=== PATIENT | female | born 2000 | race Caucasian/White ===

== ENCOUNTER 2022-10-18 13:14 | Outpatient (OUT) | payer BC, SELFPAY ==
--- NOTE | 2022-10-18 13:16 | US_ITS ---
[address] [address] Patient Name: LAURA FOUNTAIN MRN: [id number] date: 2000 Sex: F Assigned Patient Location: US Current Patient Location: US Accession/Order Number: [id number] Exam Date: 10/18/2022 13:16 Report Date: 10/18/2022 17:40 At the request of: ZHANE NORWOOD Procedure: US OB transvaginal EXAMINATION: US OB transvaginal HISTORY: MISSED PERIOD COMPARISON: No relevant comparison available. FINDINGS: Twin intrauterine gestation The uterus is normal, anteverted, anteflexed The right ovary is normal in appearance The left ovary is not visualized Cervix: Closed, 3.6 cm Monochorionic, diamniotic Gestational sac: 4.7 cm, 10 weeks 2 days Fetus 1: CRL: 3.0 cm, 9 weeks 6 days Heart rate: 176 BPM Ultrasound age: 9 weeks 6 days Ultrasound KARTIK: 05/17/2023 Fetus 2: CRL: 3.02 cm, 9 weeks 6 days Heart rate: 171 bpm Ultrasound age: 9 weeks 6 days Ultrasound KARTIK: 05/17/2023 IMPRESSION: Viable twin intrauterine gestation measuring 9 weeks 6 days Electronically authenticated by: JEAN BELLO Date: 10/18/2022 17:40
== END 2022-10-18 13:15 ==
LOC: US 13:14
PROVIDERS: Visit Provider Obstetrics & Gynecology
DX: O30.001 Twin pregnancy, unspecified number of placenta and unspecified number of amniotic sacs, first trimester (principal); Z3A.09 9 weeks gestation of pregnancy
CPT/HCPCS: 76817

== ENCOUNTER 2022-12-04 08:42 | Emergency (ER) | payer BC, SELFPAY ==
[2022-12-04 08:46] VITALS: BP 140/64; PULSE 90; RESP 18; TEMP 37.3; O2SAT 100; BMI 26.5
--- NOTE | 2022-12-04 10:18 | ED.GENADUL1 ---
HPI - General Adult General Chief complaint: Vaginal Bleeding Stated complaint: ISSUES 17 WEEKS Time Seen by Provider: 12/04/22 09:05 Source: patient Mode of arrival: walk-in History of Present Illness HPI narrative: Patient is a 22-year-old female who is presenting to the Emergency Room with chief complaint of vaginal bleeding that started 2 days ago. Patient went to [facility] last evening. Patient had laboratory done, ultrasound. Patient is a , patient states she is about 17 weeks . Patient's had no trauma, no falls, no traumatic intercourse recently. Patient says the ultrasound last evening question bleeding versus questionable amniotic fluid. Patient had vaginal bleeding today, soaked a pad. Patient did not wait to call the office this morning as instructed, she can't to the Emergency Room. Patient also was diagnosed the urinary tract infection last Saturday, she has not started her antibiotic, patient has excuses that she does not have a car, her mother did not get her medication, and she has not had any antibiotics since Saturday. Patient not lightheaded or dizzy. No chest pain or shortness of breath. She has mild abdominal cramping that she took, for this morning. She has no other acute complaints at this time. When we're performing HPI and physical exam, Joan MADSEN was doing tones, and then patient told us: oh I have twins . All systems are negative except as noted/marked. All systems reviewed and otherwise negative. . Nurses note and vital signs reviewed and patient is not hypoxic. General: The patient appears well and in no apparent distress. Patient is resting comfortably on cart. Patient is not toxic, lethargic, or listless Skin: Warm, dry, no pallor noted. There is no rash noted. No petechiae, purpura. Head: Normocephalic, atraumatic Eye: Normal conjunctiva, no drainage, EOMI. PERRL Ears, Nose, Mouth, and Throat: oral mucosa is moist. Nares patent. Cardiovascular: Regular Rate and Rhythm, no murmur, gallop, rub Respiratory: Patient is in no distress, no accessory muscle use, lungs are clear to auscultation, no wheezing, rales or rhonchi Back: non-tender, no CVA tenderness bilaterally to percussion. No CT LS midline pain GI: soft, Mild suprapubic tenderness to palpation, no peritoneal signs, no flank pain bilateral, otherwise no tenderness to palpation, no masses appreciated. No rebound, guarding, or rigidity noted. No flank pain bilateral, No distention Musculoskeletal: Patient has full range of motion of all of the extremities, no motor, sensory, or focal neurological deficits Neurological: A&O x3, normal speech Psychiatric: Cooperative Related Data Home Medications Medication Instructions Recorded Confirmed No Known Home Medications 12/04/22 12/04/22 Allergies Allergy/AdvReac Type Severity Reaction Status Date / Time No Known Drug Allergies Allergy Verified 12/04/22 08:46 Exam Constitutional Vital Signs, click to edit/add: Last Vital Signs Temp 99.1 F 12/04/22 08:46 Pulse 90 12/04/22 08:46 Resp 18 12/04/22 08:46 BP 140/64 12/04/22 08:46 Pulse Ox 100 12/04/22 08:46 O2 Del Method Room Air 12/04/22 08:46 Course Vital Signs Vital signs: Vital Signs Temperature 99.1 F 12/04/22 08:46 Pulse Rate 90 12/04/22 08:46 Respiratory Rate 18 12/04/22 08:46 Blood Pressure 140/64 12/04/22 08:46 Pulse Oximetry 100 12/04/22 08:46 Oxygen Delivery Method Room Air 12/04/22 08:46 Temperature 99.1 F 12/04/22 08:46 Pulse Rate 90 12/04/22 08:46 Respiratory Rate 18 12/04/22 08:46 Blood Pressure 140/64 12/04/22 08:46 Pulse Oximetry 100 12/04/22 08:46 Oxygen Delivery Method Room Air 12/04/22 08:46 Medical Decision Making MDM Narrative Medical decision making narrative: Patient had thorough testing done last night at [facility]. Patient had lab work and ultrasound done. The [facility] physician spoke to Dr. Bella last night. The instructions were for patient to call the office at 8 AM when they open up, and patient will be seen today to rule out or in amniotic fluid leakage. Patient did not wait until 8 AM, patient can't to the Emergency Room instead. Patient not call the office this morning. Patient also has not filled her antibiotic from last Saturday for urinary tract infection. 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 Patient has excuses that her mom did not do that for her. 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 Patient was given one dose of Keflex in the Emergency Room.I did speak to Dr. Bella. They're willing to see the patient right now in the office and squeeze her in their schedule which is very kind of them. Patient will be discharged. Patient will walk and go directly to the office so that she can be seen by Dr. Bella and staff. No other recommendations from Dr. Bella at this time. No indication for an additional lab testing or ultrasound. Discharge Plan Discharge Chief Complaint: Vaginal Bleeding Clinical Impression: Miscarriage, threatened, early Patient Disposition: Home, Self-Care Condition: Good Prescriptions / Home Meds: No Action No Known Home Medications Instructions: Threatened Miscarriage (ED) Additional Instructions: Go directly to Dr. Bella office now. He will be seen and evaluated, he also need to fill your prescription for your urinary tract infection as well that was diagnosed last week. Stand Alone Forms: Portal Instructions Referrals: Physician,Non-Staff, MD [Primary Care Provider] - 1 week Procedures ED Procedure Instructions Procedures Procedures: Bedside ultrasound performed by Dr. Malone, this is an unofficial US Performed by myself. I do note 2 fetuses, to active heartbeats, 2 fetuses with good movement.
[2022-12-04] MEDS: CEPHALEXIN 250 MG CAPSULE 500 MG PO (10:25)
== END 2022-12-04 10:27 | disposition home or self-care (01) ==
PROVIDERS: Emergency Provider Emergency Medicine
DX: O20.0 Threatened abortion (principal); Z3A.17 17 weeks gestation of pregnancy; Z87.440 Personal history of urinary (tract) infections
CPT/HCPCS: 99283

== ENCOUNTER 2022-12-04 11:54 | Outpatient (OUT) | payer BC, SELFPAY ==
--- NOTE | 2022-12-04 | US_ITS ---
[address] [address] Patient Name: LAURA FOUNTAIN MRN: [id number] date: 2000 Sex: F Assigned Patient Location: US Current Patient Location: US Accession/Order Number: [id number] Exam Date: 12/04/2022 12:00 Report Date: 12/04/2022 18:00 At the request of: ZHANE NORWOOD Procedure: US OB placenta EXAM: US OB placenta HISTORY: VAGINAL BLEEDING COMPARISON: 10/18/2022. TECHNIQUE: Transabdominal imaging FINDINGS: Fetus 1: presentation: Cephalic Largest fluid pocket: 2.6 x 3.0 cm Placenta: Anterior, Grade 0 Heart rate: 1 41 bpm Fetus 2: presentation: Cephalic Largest fluid pocket: 4.0 x 1.9 cm Placental location: Anterior, grade 0 Heart rate: 1 47 bpm Cervix: Closed, 3.3 cm. Placenta: 2 cm from the cervical os Linear septation identified likely representing the amniotic membrane Single anterior placenta US/US OB placenta IMPRESSION: No evidence of placental abruption Electronically authenticated by: JEAN BELLO Date: 12/04/2022 18:00
--- NOTE | 2022-12-04 | US_ITS ---
[address] [address] Patient Name: LAURA FOUNTAIN MRN: [id number] date: 2000 Sex: F Assigned Patient Location: US Current Patient Location: US Accession/Order Number: [id number] Exam Date: 12/04/2022 12:00 Report Date: 12/04/2022 18:00 At the request of: ZHANE NORWOOD Procedure: US OB transvaginal EXAM: US OB placenta HISTORY: VAGINAL BLEEDING COMPARISON: 10/18/2022. TECHNIQUE: Transabdominal imaging FINDINGS: Fetus 1: presentation: Cephalic Largest fluid pocket: 2.6 x 3.0 cm Placenta: Anterior, Grade 0 Heart rate: 1 41 bpm Fetus 2: presentation: Cephalic Largest fluid pocket: 4.0 x 1.9 cm Placental location: Anterior, grade 0 Heart rate: 1 47 bpm Cervix: Closed, 3.3 cm. Placenta: 2 cm from the cervical os Linear septation identified likely representing the amniotic membrane Single anterior placenta US/US OB transvaginal IMPRESSION: No evidence of placental abruption Electronically authenticated by: JEAN BELLO Date: 12/04/2022 18:00
== END 2022-12-04 11:55 | disposition home or self-care (01) ==
LOC: US 11:55
PROVIDERS: Visit Provider Obstetrics & Gynecology
DX: O20.0 Threatened abortion (principal); Z3A.17 17 weeks gestation of pregnancy; Z87.440 Personal history of urinary (tract) infections; O46.92 Antepartum hemorrhage, unspecified, second trimester
CPT/HCPCS: 76815; 76817; 99283

== ENCOUNTER 2022-12-18 13:57 | Outpatient (OUT) | payer BC, SELFPAY ==
[2022-12-18 14:47] LABS: Thyroid Stimulating Hormone 2.085 uIU/mL (0.358-3.740)
[2022-12-21 17:07] LABS: AFP Value 248.2 ng/mL (.); Gestat. Age Based On As provided (.); Maternal Age At EDD 20.7 yr (.); OSBR Risk 1 IN See interpretation. (.); Results Report (.)
== END 2022-12-18 13:58 | disposition home or self-care (01) ==
LOC: LAB 13:58
PROVIDERS: Visit Provider Obstetrics & Gynecology
DX: O26.892 Other specified pregnancy related conditions, second trimester (principal); Z3A.00 Weeks of gestation of pregnancy not specified; R79.89 Other specified abnormal findings of blood chemistry
CPT/HCPCS: 36415; 82105; 84443

== ENCOUNTER 2023-11-22 13:07 | Observation (INO) | payer OTHER, SELFPAY ==
[2023-11-22 13:31] VITALS: BP 95/55; PULSE 78
[2023-11-22 13:39] VITALS: TEMP 36.4
--- NOTE | 2023-11-22 13:45 | US_ITS ---
[address] [address] Patient Name: LAURA FOUNTAIN MRN: [id number] date: 2000 Sex: F Assigned Patient Location: [facility] Current Patient Location: [facility] Accession/Order Number: [id number] Exam Date: 11/22/2023 14:20 Report Date: 11/22/2023 15:40 At the request of: ZHANE NORWOOD Procedure: US renal BI EXAMINATION: US renal BI HISTORY: rt sided back pain, cramping COMPARISON: No relevant comparison available. TECHNIQUE: Ultrasound examination was performed of the kidneys and urinary bladder. FINDINGS: RIGHT KIDNEY: Contain several small nonobstructing stones. Normal renal cortical parenchymal echogenicity. Color Doppler demonstrates blood flow within the kidney. Kidney: 11.5 x 4.6 x 5.5 cm LEFT KIDNEY: Contain several small nonobstructing stones. Normal renal cortical parenchymal echogenicity. Color Doppler demonstrates blood flow within the kidney. Kidney: 12.4 x 4.3 x 4.9 cm BLADDER: No visible wall thickening, mass, or calculi. US/US renal BI IMPRESSION: 1. Bilateral nonobstructing nephrolithiasis. No appreciable acute findings. Electronically authenticated by: SAMANTA LEACH Date: 11/22/2023 15:40
--- NOTE | 2023-11-22 13:45 | US_ITS ---
The [address] [address] Patient Name: LAURA FONUTAIN MRN: [id number] date: 2000 Sex: F Assigned Patient Location: [facility] Current Patient Location: [facility] Accession/Order Number: [id number] Exam Date: 11/22/2023 14:20 Report Date: 11/22/2023 15:44 At the request of: ZHANE NORWOOD Procedure: US OB placenta EXAMINATION: US OB placenta HISTORY: rt sided back pain, cramping COMPARISON: No relevant comparison available. FINDINGS: PRESENTATION: Cephalic Amniotic fluid: 17.6 cm; normal range. PLACENTA: Anterior, grade 0. No abruption or subchorionic hematoma. HEART RATE: 132 bpm OTHER: None. GA: 36 weeks 1 day KARTIK: 12/19/2023 US/US OB placenta IMPRESSION: 1. Anterior placenta without appreciable acute abnormality. No prior studies for comparison. Lower margin of placenta and its relation to the internal os could not be seen. Electronically authenticated by: SAMANTA LEACH Date: 11/22/2023 15:44
[2023-11-22 14:01] LABS: Bilirubin Urine NEGATIVE (NEGATIVE); Blood Urine TRACE-I (NEGATIVE); Clarity Urine CLOUDY (CLEAR); Glucose Urine UA NEGATIVE (NEGATIVE); Ketones Urine NEGATIVE (NEGATIVE); Leukocyte Esterase Urine MODERATE (NEGATIVE); Nitrite Urine NEGATIVE (NEGATIVE); Protein Urine 30 mg/dL (NEG/TRACE); Specific Gravity Urine 1.025 (1.005-1.025)
[2023-11-22 14:03] LABS: Color Urine DK YELLOW (YELLOW); Urine Microscopic Indicated YES
[2023-11-22] MEDS: FLUCONAZOLE 150 MG TABLET PO (14:04)
[2023-11-22 14:06] LABS: Amnisure NEGATIVE (NEGATIVE); Internal Control Within Normal Limits
[2023-11-22 14:23] LABS: Bacteria Urine LARGE #/HPF (NONE SEEN); Cast Seen? NONE SEEN #/LPF (NONE SEEN); Crystals Seen? None Seen #/HPF (None Seen); Mucus Urine LARGE (NONE SEEN); Squamous Epithelial Cell Urine MANY #/LPF (NONE/RARE); Urine Culture Indicated YES; WBC Urine >100 #/HPF (NONE SEEN)
== END 2023-11-22 16:10 | disposition home or self-care (01) ==
PROVIDERS: Admitting Provider Obstetrics & Gynecology; Visit Provider Obstetrics & Gynecology
DX: O47.03 False labor before 37 completed weeks of gestation, third trimester (principal); Z3A.36 36 weeks gestation of pregnancy; Z87.440 Personal history of urinary (tract) infections
CPT/HCPCS: 59025; 76775; 76815; 81001; 84112; 87086; G0378; G0379

== ENCOUNTER 2023-12-05 11:59 | Observation (INO) | payer OTHER, SELFPAY ==
[2023-12-05 11:59] VITALS: BP 105/56; PULSE 81; TEMP 37.2
[2023-12-05] MEDS: ACETAMINOPHEN 500 MG TABLET 1000 MG PO (13:33)
[2023-12-05 13:46] LABS: Bilirubin Urine NEGATIVE (NEGATIVE); Blood Urine NEGATIVE (NEGATIVE); Clarity Urine SL CLOUDY (CLEAR); Color Urine LT. YELLOW (YELLOW); Glucose Urine UA NEGATIVE (NEGATIVE); Ketones Urine TRACE mg/dL (NEGATIVE); Leukocyte Esterase Urine LARGE (NEGATIVE); Nitrite Urine NEGATIVE (NEGATIVE); Protein Urine NEGATIVE (NEG/TRACE); Specific Gravity Urine 1.025 (1.005-1.025); Urobilinogen Urine 0.2 EU/dL (0.2-1.0); pH Urine 6.5 (5.0-9.0)
[2023-12-05 13:47] LABS: Urine Microscopic Indicated YES
[2023-12-05 13:57] LABS: Bacteria Urine LARGE #/HPF (NONE SEEN); Crystals Seen? None Seen #/HPF (None Seen); Mucus Urine TRACE (NONE SEEN); Squamous Epithelial Cell Urine MANY #/LPF (NONE/RARE); Transitional Epi Cells Urine FEW #/LPF (NONE SEEN); WBC Urine 20-50 #/HPF (NONE SEEN)
[2023-12-05 13:58] LABS: Cast Seen? NONE SEEN #/LPF (NONE SEEN)
[2023-12-05 13:59] LABS: Urine Culture Indicated YES
--- NOTE | 2023-12-05 13:59 | US_ITS ---
[address] [address] Patient Name: LAURA FOUNTAIN MRN: [id number] date: 2000 Sex: F Assigned Patient Location: [facility] Current Patient Location: [facility] Accession/Order Number: [id number] Exam Date: 12/05/2023 14:00 Report Date: 12/05/2023 14:56 At the request of: KATELIN COLE Procedure: US renal BI EXAMINATION: US renal BI HISTORY: adali flank pain COMPARISON: Ultrasound renal bilateral 11/22/2023 TECHNIQUE: Ultrasound examination was performed of the kidneys and urinary bladder. FINDINGS: RIGHT KIDNEY: Contain several nonobstructing stones, largest is 5 mm. No hydronephrosis or appreciable mass. Normal parenchymal echogenicity. Color Doppler demonstrates blood flow within the kidney. Kidney: 13.0 x 5.2 x 4.8 cm LEFT KIDNEY: Contain several nonobstructing stones, largest is 7 mm. No hydronephrosis or appreciable mass. Normal parenchymal echogenicity. Color Doppler demonstrates blood flow within the kidney. Kidney: 11.6 x 4.6 x 5.0 cm BLADDER: No visible wall thickening, mass, or calculi. URETERAL JETS: Visualized bilaterally. US/US renal BI IMPRESSION: 1. Bilateral nonobstructing nephrolithiasis. 2. No acute findings to account for patient's symptoms. Electronically authenticated by: SAMANTA LEACH Date: 12/05/2023 14:56
== END 2023-12-05 15:30 | disposition home or self-care (01) ==
LOC: FBCO 12:00 → FBC 12:00
PROVIDERS: Admitting Provider Obstetrics & Gynecology; Visit Provider Obstetrics & Gynecology
DX: O26.899 Other specified pregnancy related conditions, unspecified trimester (principal); R10.9 Unspecified abdominal pain; Z3A.00 Weeks of gestation of pregnancy not specified; Z87.442 Personal history of urinary calculi
CPT/HCPCS: 59025; 76775; 81001; 87086; G0378; G0379

== ENCOUNTER 2023-12-12 15:14 | Inpatient (IN) | payer MEDICAID, SELFPAY ==
[2023-12-12] VITALS (42 sets, daily range): BP systolic 80–120; BP diastolic 42–74; PULSE 60–109; TEMP 36.2; O2SAT 94–100
--- OUTSIDE RECORDS SUMMARY | 2023-12-12 15:28 | XMS_ITS | CCD ---
[facility] Organization [facility] Care Team Providers Care Fire Equipment Operator Name Role Phone Amaya Luu Unavailable PURNIMAC, DR COBOS Primary Care Unavailable CECIL .RENETTA Attending Unavailable CECIL .RENETTA Admitting Unavailable REQUEST, DR MORA LISTED Consulting Unavaila ble MISC, DR COBOS Primary Care Unavailable PAY ., DR BUNDY Attending Unavailable PAY ., DR BUNDY Admitting Unavailable RENETTA CLINE Consulting Unavailable MISC, DR COBOS Primary Care Unavailable ENMA ., DR PHELAN Attending Unavailable ENMA ., DR PHELAN Consulting Unavailable ENMA ., DR PHELAN Admitting Unavailable MARILIN RODRIGEZ Attending Unavailable FELICIANO CARLTON Attending Unavailab HAYLIE Lewis Attending Unavailable HUA VELAZQUEZ Referring Unavailable NO PCP, NO PCP Primary Care Unavailable TERRANCE CONN Referring Unavailable NO PCP, NO PCP Primary Care Unavailable TERRANCE CONN Referring Unavailable NO PCP, NO PCP Primary Care Unavailable TERRANCE CONN Referring Unavailable NO PCP, NO PCP Primary Care Unavailable NO PCP, NO PCP Primary Care Unavailable AMAYA CRUZ Referring Unavailable NO PCP, NO PCP Primary Care Unavailable NO PCP, NO PCP Primary Care Unavailable AMAYA CRUZ Referring Unavailable NO PCP, NO PCP Primary Care Unavailable NO PCP, NO PCP Primary Care Unavailable MARLY STUBBS Attending Unavailable NO PCP, NO PCP Primary Care Unavailable YARELI VILLAREAL Attending Unav ailable NO PCP, NO PCP Primary Care Unavailable RANDAL AYALA Attending Unavailable RANDAL AYALA Attending Unavailable RANDAL AYALA Referring Unavailable NO PCP, NO PCP Primary Care Unavailable RANDAL AYALA Attending Unavailable RANDAL AYALA Referring Unavailable NO PCP, NO PCP Primary Care Unavailable SHOLEY, GUERRERO M Admitting Unavailable GUERRERO JOHNSON M Attending Unavailable NO PCP, NO PCP Primary Care Unavailable DEVYN MCBRIDE Admitting Unavailable DEVYN MCBRIDE Attending Unavailable NO PCP, NO PCP Primary Care Unavailable DEVYN MCBRIDE Attending Unavailable DEVYN MCBRIDE Referring Unavailable NO PCP, NO PCP Primary Care Unavailable LILLIANTANNER GUERRERO M Admitting Unavailable LILLIANTANNER GUERRERO M Attending Unavailable NO PCP, NO PCP Primary Care Unavailable TERRANCE CONN A Attending Unavailable NO PCP, NO PCP Primary Care Unavailable FABIENTERRANCE A Attending Unavailable NO PCP, NO PCP Primary Care Unavailable FABIENTERRANCE A Attending Unavailable NO PCP, NO PCP Primary Care Unavailable ANGELA NEWMAN M Attending Unavailable NO PCP, NO PCP Primary Care Unavailable NO PCP, NO PCP Primary Care Unavailable AMAYA CRUZ Attending Unavailable NO PCP, NO PCP Primary Care Unavailable ZHANE NORWOOD Attending Unavailable Problems Active Problems Problem Classification Problem Date Documented Da te Episodic/Chronic E Codes: Fall (1 source) Fall Onset: 4 Genitourinary symptoms and ill-defined conditions (4 sources) Dysuria; Translations: [Urinary frequency] Onset: 3 Episodic Headache; including migraine (1 source) Chronic migraine without aura, intractable, with status migrainosus; Translations: [Chronic migraine without aura, intractable, with status migrainosus] Onset: 4 Chronic Headache; including migraine (1 source) Headache; including migraine; Translations: [Headache, unspecified] Onset: 4 Hemorrhage during ; abruptio placenta; placenta previa (1 source) Hemorrhage in early , unspecified; Translations: [Hemorrhage in early , unspecified] Onset: 3 Episodic Mood disorders (1 source) Major depressive disorder, recurrent, moderate; Translations: [Major depressive disorder, recurrent, moderate] Onset: 4 Chronic Nausea and vomiting (2 sources) Nausea with vomiting, unspecified; Translations: [Nausea] Onset: 3 Episodic Other complications of (1 source) Vomiting of , unspecified; Translations: [Vomiting of , unspecified] Onset: 3 Episodic Other complications of (2 sources) Supervision of other high risk pregnancies, second trimester; Translations: [Supervision of other high risk pregnancies, second trimester] Onset: 4 Episodic Other complications of (2 sources) Supervision of other high risk pregnancies, unspecified trimester; Translations: [Supervision of other high risk pregnancies, unspecified trimester] Onset: 4 Episodic Other complications of (1 source) Supervision of with other poor reproductive or obstetric history, unspecified trimester; Translations: [Supervision of with other poor reproductive or obstetric history, unspecified trimester] Onset: 4 Episodic Other complications of (1 source) Decreased movements, unspecified trimester, not applicable or unspecified; Translations: [Decreased movements, unspecified trimester, not applicable or unspecified] Onset: 4 Episodic Other complications of (1 source) Supervision of with insufficient care, unspecified trimester; Translations: [Supervision of with insufficient care, unspecified trimester] Onset: 4 Episodic Other gastrointestinal disorders (1 source) Constipation, unspecified; Translations: [Constipation, unspecified] Onset: 4 Episodic Other and delivery including normal (12 sources) Encounter for test, result positive; Translations: [Twin , monochorionic/diamniot ic, second trimester] Onset: 2 Episodic Other screening for suspected conditions (not mental disorders or infectious disease) (2 sources) Encounter for nonprocreative screening for genetic disease carrier status; Translations: [Encounter for screening for other genetic defects] Onset: 4 Episodic Residual codes; unclassified (1 source) 21 weeks gestation of ; Translations: [21 weeks gestation of ] Onset: 4 Episodic Residual codes; unclassified (1 source) Personal history of other complications of , childbirth and the puerperium; Translations: [Personal history of other complications of , childbirth and the puerperium] Onset: 4 Episodic Residual codes; unclassified (1 source) 27 weeks gestation of ; Translations: [27 weeks gestation of ] Onset: 4 Episodic Residual codes; unclassified (1 source) 38 weeks gestation of ; Translations: [38 weeks gestation of ] Onset: 4 Episodic Residual codes; unclassified (1 source) Cystic fibrosis carrier; Translations: [Cystic fibrosis carrier] Onset: 4 Episodic Unclassified (2 sources) Initial Visit Onset: 4 Unclassified (1 source) New Patient Onset: 4 Unclassified (1 source) Procedure Onset: 4 Unclassified (1 source) urinary frequency, pelvic cramping, Onset: 4 Unclassified (1 source) Abdominal Pain Onset: 4 Unclassified (1 source) Decreased Movement Onset: 4 Unclassified (1 source) Abdominal Pain, Vaginal Bleeding Onset: 4 Unclassified (1 source) Routine Visit Onset: 4 Unclassified (1 source) Food insecurity; Translations: [Food insecurity] Onset: 4 Unclassified (1 source) Other underimmunization status; Translations: [Other underimmunization status] Onset: 4 Past or Other Problems Problem Classification Problem Date Documented Da te Episodic/Chronic Abdominal pain (2 sources) Pain in pelvis; Translations: [Abdominal pain] Onset: 07-30-2023 Episodic Immunizations and screening for infectious disease (3 sources) Encounter for screening for infections with a predominantly sexual mode of transmission; Translations: [Encounter for screening for infections with a predominantly sexual mode of transmission] Onset: 08-28-2023 Episodic Other complications of (2 sources) Supervision of with insufficient care, second trimester; Translations: [Supervision of with insufficient care, second trimester] Onset: 08-29-2023 Episodic Other complications of (1 source) Maternal care for excessive growth, unspecified trimester, not applicable or unspecified; Translations: [Maternal care for excessive growth, unspecified trimester, not applicable or unspecified] Onset: 08-29-2023 Episodic Other female genital disorders (1 source) Personal history of pre-term labor; Translations: [Personal history of pre-term labor] Onset: 08-29-2023 Episodic Other gastrointestinal disorders (2 sources) Slow transit constipation; Translations: [Slow transit constipation] Onset: 08-03-2021 Episodic Other nutritional; endocrine; and metabolic disorders (2 sources) Personal history of other endocrine, nutritional and metabolic disease; Translations: [Personal history of other endocrine, nutritional and metabolic disease] Onset: 08-29-2023 Episodic Residual codes; unclassified (1 source) 19 weeks gestation of ; Translations: [19 weeks gestation of ] Onset: 07-30-2023 Episodic Substance-related disorders (2 sources) Drug use complicating , unspecified trimester; Translations: [Cannabis use, unspecified, uncomplicated] Onset: 08-29-2023 Episodic Unclassified (1 source) Acute cough R05.1 Onset: 11-14-2021 Resolved: 11-14-2021 Urinary tract infections (4 sources) Urinary tract infection, site not specified; Translations: [Acute cystitis without hematuria] Onset: 08-21-2022 Episodic Results Test Name Value Interpretation Reference Range Facility CHLAMYDIA/GC BY PCRon 2023 CHLAMYDIA/GC BY PCR SPECIMEN SOURCE CERVICAL Corrected on 11/17 AT 0958: Previously reported as CLEAN CATCH MIDSTREAM URINE CHLAMYDIA DNA(PCR) Negative (qualifier value) Chlamydia trachomatis not detected by nucleic acid amplification. This does not exclude the possibility of infection because results are dependent on adequate specimen collection. GONORRHOEAE DNA(PCR) Negative (qualifier value) Neisseria gonorrhoeae not detected by nucleic acid amplification. This does not exclude the possibility of infection because results are dependent on adequate specimen collection. Normal [facility] Comment on above: Performed By: #### 2 106-3 #### [facility] ([id number]) [address] [place] [address] 73268 DRUG SCREEN, URINEon 024 AMPHETAMINE/METHAMP Negative Normal NEG [facility] Comment on above: Result Comment: AMPH /METH screening cut off = 1000 ng/mL Performed By: #### 2 106-3 #### [facility] ([id number]) [address] [place] [address] 36549 BARBITURATES Negative Normal NEG [facility] Comment on above: Result Comment: Jami iturates screening cut off value = 200 ng/mL Performed By: #### 2 106-3 #### [facility] ([id number]) [address] [place] [address] 70120 BENZODIAZEPINES Negative Normal NEG [facility] Comment on above: Result Comment: Hunter odiazepines screening cut off value = 200 ng/mL Performed By: #### 2 106-3 #### [facility] ([id number]) [address] [place] [address] 84352 CANNABINOIDS Negative Normal NEG [facility] Comment on above: Result Comment: Latha abinoids/THC screening cut off value = 50 ng/mL Performed By: #### 2 106-3 #### [facility] ([id number]) [address] [place] [address] 45543 COCAINE METABOLITE Negative Normal NEG [facility] Comment on above: Result Comment: Coca ine screening cut off value = 300 ng/mL Performed By: #### 2 106-3 #### [facility] ([id number]) [address] [place] [address] 58238 ECSTASY Negative Normal [facility] Comment on above: Result Comment: Ecst asy screening cut off value = 500 ng/mL This report is intended for use in clinical monitoring or management of patients. Performed By: #### 2 106-3 #### [facility] ([id number]) [address] [place] [address] 05885 METHADONE Negative Normal [facility] Comment on above: Result Comment: Meth adone screening cut off value = 300 ng/mL. Performed By: #### 2 106-3 #### [facility] ([id number]) [address] [place] [address] 52093 OPIATES Negative Normal NEG [facility] Comment on above: Result Comment: Opia olivia screening cut off value = 300 ng/mL NOTE: This test is used for the detection of codeine, hydrocodone (>1000 ng/mL), morphine and hydromorphone (>900 ng/mL) in urine. Performed By: #### 2 106-3 #### [facility] ([id number]) [address] [place] [address] [place] [address] OXYCODONE Negative Normal NEG [facility] Comment on above: Result Comment: Oxyc odone screening cut off value = 300 ng/mL NOTE: This test is used for the detection of oxycodone and oxymorphone in urine. Performed By: #### 2 106-3 #### [facility] ([id number]) [address] [place] [address] 40974 PHENCYCLIDINE Negative Normal NEG [facility] Comment on above: Result Comment: Phen cyclidine screening cut off value = 25 ng/mL Performed By: #### 2 106-3 #### [facility] ([id number]) [address] [place] [address] 76573 Fibronectin. Ql (Vag fl d)on 11-17-2023 FIBRONECTIN Negative Normal NEG [facility] Comment on above: Performed By: #### 2 106-3 #### [facility] ([id number]) [address] [place] [address] 87469 STREP B SCREEN CULTUREon S. agalactiae Org specific cx Ql (Vag+Rectum) CULTURE RESULTS NEGATIVE FOR GROUP B STREPTOCOCCUS BY NUCLEIC ACID AMPLIFICATION Normal [facility] Comment on above: Performed By: #### 2 106-3 #### [facility] ([id number]) [address] [place] [address] 34296 URINALYSISon 11-17-2023 Bilirubin Ql (U) SMALL Abnormal NEG [facility] Comment on above: Result Comment: Not confirmed, interpret positive results with caution. Performed By: #### 2 106-3 #### [facility] ([id number]) [address] [place] [address] 51717 BLOOD/HGB Negative Normal NEG [facility] Comment on above: Performed By: #### 2 106-3 #### [facility] ([id number]) [address] [place] [address] 01980 Color (U) YELLOW Normal YELLOW [facility] Comment on above: Performed By: #### 2 106-3 #### [facility] ([id number]) [address] [place] [address] 60171 Glucose Ql (U) Negative Normal NEG [facility] Comment on above: Performed By: #### 2 106-3 #### [facility] ([id number]) [address] [place] [address] [place] [address] Ketones Ql (U) >80 Abnormal NEG [facility] Comment on above: Performed By: #### 2 106-3 #### [facility] ([id number]) [address] [place] [address] 53464 Leukocyte esterase Test strip Ql (U) MODERATE Abnormal NEG [facility] Comment on above: Performed By: #### 2 106-3 #### [facility] ([id number]) [address] [place] [address] [place] [address] Nitrite Ql (U) Negative Normal NEG [facility] Comment on above: Performed By: #### 2 106-3 #### [facility] ([id number]) [address] [place] [address] 82201 pH (U) 6.0 [pH] Normal 5.0-8.5 [facility] Comment on above: Performed By: #### 2 106-3 #### [facility] ([id number]) [address] [place] [address] 08802 Protein Ql (U) 30 mg/dL Abnormal NEG [facility] Comment on above: Performed By: #### 2 106-3 #### [facility] ([id number]) [address] [place] [address] [place] [address] R.B.CELLS 0 /hpf Normal 0-5 [facility] Comment on above: Performed By: #### 2 106-3 #### [facility] ([id number]) [address] [place] [address] [place] [address] Specific gravity (U) [Rel density] >1.030 Normal 1.003-1.035 [facility] Comment on above: Performed By: #### 2 106-3 #### [facility] ([id number]) [address] [place] [address] 80071 SQUAMOUS EPITHELIUM 13 /hpf High 0-5 [facility] Comment on above: Performed By: #### 2 106-3 #### [facility] ([id number]) [address] [place] [address] 92033 TURBIDITY CLEAR Normal CLEAR [facility] Comment on above: Performed By: #### 2 106-3 #### [facility] ([id number]) [address] [place] [address] 23172 Urobilinogen Qn (U) 1.0 {Krishna'U}/dL Normal <1.1 [facility] Comment on above: Performed By: #### 2 106-3 #### [facility] ([id number]) [address] [place] [address] 57384 W.B.CELLS 9 /hpf High 0-5 [facility] Comment on above: Performed By: #### 2 106-3 #### [facility] ([id number]) [address] [place] [address] 07117 URINE CULTUREon 11-17-2023 Bacteria identified Cx Nom (U) CULTURE RESULTS >100,000 ORGANISMS/ML NORMAL UROGENITAL ALEX Normal [facility] Comment on above: Performed By: #### 2 106-3 #### [facility] ([id number]) [address] [place] [address] 02370 VAGINITIS PANEL PCRon 2023 VAGINITIS PANEL PCR BACT. VAGINOSIS DNA Unable to analyze due to inhibitors present in sample Qualitative results are reported based on detection and quantitation of targeted organism markers which include: Lactobacillus spp. (L. crispatus and L. jensenii), Gardnerella vaginalis, Atopobium vaginae, Bacterial Vaginosis Associated Bacteria-2 (BVAB-2) and Megasphaera-1 SHANEKA SPECIES DNA Unable to analyze due to inhibitors present in sample SHANEKA KRUSEI DNA Unable to analyze due to inhibitors present in sample SHANEKA GLABRATA DNA Unable to analyze due to inhibitors present in sample TRICHOMONAS VAG DNA Unable to analyze due to inhibitors present in sample NOTE BD MAX Vaginal Panel has not been evaluated for patients under 18 years old. Results for these patients should be reviewed and assessed in accordance with clinical presentation to determine patient diagnosis. Normal [facility] Comment on above: Performed By: #### 2 106-3 #### [facility] ([id number]) [address] [place] [address], [place] [address] US BIOPHYSICAL PROFILE FET W O NSTon 10-22-2023 US BIOPHYSICAL PROFILE FET WO NST US BIOPHYSICAL PROFILE FET WO NST US BIOPHYSICAL PROFILE FET WO NST Clinical history:decel decelerations, fall, abdominal pain Comparison: None. Findings: Biophysical profile was performed. There is a single live intrauterine in cephalic position. Placenta is anterior without evidence of previa. heart rate is 131 bpm. Amniotic fluid is is 19.5 cm. Deepest vertical pocket is 6.3 cm. 2 points was given for movement, tone, breathing and amniotic fluid. Impression: Biophysical profile with a score of 8 out of 8. Finalized by Danny Mcdonough MD on 10/22/2023 5:06 AM [facility] CHLAMYDIA/GC BY PCRon 2023 CHLAMYDIA/GC BY PCR SPECIMEN SOURCE VAGINAL CHLAMYDIA DNA(PCR) Negative (qualifier value) Chlamydia trachomatis not detected by nucleic acid amplification. This does not exclude the possibility of infection because results are dependent on adequate specimen collection. GONORRHOEAE DNA(PCR) Negative (qualifier value) Neisseria gonorrhoeae not detected by nucleic acid amplification. This does not exclude the possibility of infection because results are dependent on adequate specimen collection. [facility] Comment on above: Performed By: #### C #### [facility] ([id number]) [address], [address] [place] [address] DRUG SCREEN, URINEon 024 AMPHETAMINE/METHAMP Negative Normal NEG [facility] Comment on above: Result Comment: AMPH /METH screening cut off = 1000 ng/mL Performed By: #### D JARAMILLO #### [facility] ([id number]) [address] [place] [address] 17052 BARBITURATES Negative Normal NEG [facility] Comment on above: Result Comment: Jami iturates screening cut off value = 200 ng/mL Performed By: #### D JARAMILLO #### [facility] ([id number]) [address] [place] [address] 08386 BENZODIAZEPINES Negative Normal NEG [facility] Comment on above: Result Comment: Hunter odiazepines screening cut off value = 200 ng/mL Performed By: #### D JARAMILLO #### [facility] ([id number]) [address] [place] [address] 29141 CANNABINOIDS Negative Normal [facility] Comment on above: Result Comment: Latha abinoids/THC screening cut off value = 50 ng/mL Performed By: #### D JARAMILLO #### [facility] ([id number]) [address] [place] [address] 38997 COCAINE METABOLITE Negative Normal NEG [facility] Comment on above: Result Comment: Coca ine screening cut off value = 300 ng/mL Performed By: #### D JARAMILLO #### [facility] ([id number]) [address] [place] [address] 55432 ECSTASY Negative Normal NEG [facility] Comment on above: Result Comment: Ecst asy screening cut off value = 500 ng/mL This report is intended for use in clinical monitoring or management of patients. Performed By: #### D JARAMILLO #### [facility] ([id number]) [address] [place] [address] 91046 METHADONE Negative Normal NEG [facility] Comment on above: Result Comment: Meth adone screening cut off value = 300 ng/mL. Performed By: #### D JARAMILLO #### [facility] ([id number]) [address] [place] [address] 83657 OPIATES Negative Normal NEG [facility] Comment on above: Result Comment: Opia olivia screening cut off value = 300 ng/mL NOTE: This test is used for the detection of codeine, hydrocodone (>1000 ng/mL), morphine and hydromorphone (>900 ng/mL) in urine. Performed By: #### D JARAMILLO #### [facility] ([id number]) [address] [place] [address] 03969 OXYCODONE Negative Normal [facility] Comment on above: Result Comment: Oxyc odone screening cut off value = 300 ng/mL NOTE: This test is used for the detection of oxycodone and oxymorphone in urine. Performed By: #### D JARAMILLO #### [facility] ([id number]) [address] [place] [address] 26696 PHENCYCLIDINE Negative Normal [facility] Comment on above: Result Comment: Phen cyclidine screening cut off value = 25 ng/mL Performed By: #### D JARAMILLO #### [facility] ([id number]) [address] [place] [address] [place] [address] URINALYSISon 10-17-2023 Bilirubin Ql (U) Negative Normal [facility] Comment on above: Performed By: #### U A #### [facility] ([id number]) [address] [place] [address] 66357 BLOOD/HGB Negative Normal [facility] Comment on above: Performed By: #### U A #### [facility] ([id number]) [address] [place] [address] 34671 CA OXALATE CRYSTALS 4 Abnormal NONE [facility] Comment on above: Performed By: #### U A #### [facility] ([id number]) [address] [place] [address] 98683 Color (U) YELLOW Normal YELLOW [facility] Comment on above: Performed By: #### U A #### [facility] ([id number]) [address] [place] [address] 45456 Glucose Ql (U) Negative Normal NEG [facility] Comment on above: Performed By: #### U A #### [facility] ([id number]) [address] [place] [address] 79955 Ketones Ql (U) Trace Abnormal NEG [facility] Comment on above: Performed By: #### U A #### [facility] ([id number]) [address] [place] [address] 27460 Leukocyte esterase Test strip Ql (U) SMALL Abnormal NEG [facility] Comment on above: Performed By: #### U A #### [facility] ([id number]) [address] [place] [address] 84125 Nitrite Ql (U) Negative Normal NEG [facility] Comment on above: Performed By: #### U A #### [facility] ([id number]) [address] [place] [address] 98064 pH (U) 6.5 [pH] Normal 5.0-8.5 [facility] Comment on above: Performed By: #### U A #### [facility] ([id number]) [address] [place] [address] 22818 Protein Ql (U) 30 mg/dL Abnormal NEG [facility] Comment on above: Performed By: #### U A #### [facility] ([id number]) [address] [place] [address] 79207 R.B.CELLS 6 /hpf High 0-5 [facility] Comment on above: Performed By: #### U A #### [facility] ([id number]) [address] [place] [address] 04209 Specific gravity (U) [Rel density] 1.025 Normal 1.003-1.035 [facility] Comment on above: Performed By: #### U A #### [facility] ([id number]) [address] [place] [address] [place] [address] SQUAMOUS EPITHELIUM 10 /hpf High 0-5 [facility] Comment on above: Performed By: #### U A #### [facility] ([id number]) [address] [place] [address] TURBIDITY CLEAR Normal CLEAR [facility] Comment on above: Performed By: #### U A #### [facility] ([id number]) [address] [place] [address] Urobilinogen Qn (U) 2.0 {Krishna'U}/dL High <1.1 [facility] Comment on above: Performed By: #### U A #### [facility] ([id number]) [address] [place] [address] [place] [address] W.B.CELLS 30 /hpf High 0-5 [facility] Comment on above: Performed By: #### U A #### [facility] ([id number]) [address] [place] [address] [place] [address] VAGINITIS PANEL PCRon 2023 VAGINITIS PANEL PCR BACT. VAGINOSIS DNA Not detected (qualifier value) Qualitative results are reported based on detection and quantitation of targeted organism markers which include: Lactobacillus spp. (L. crispatus and L. jensenii), Gardnerella vaginalis, Atopobium vaginae, Bacterial Vaginosis Associated Bacteria-2 (BVAB-2) and Megasphaera-1 SHANEKA SPECIES DNA Not detected (qualifier value) Shaneka species not detected include: C. albicans, C. tropicalis, C. parapsilosis or C. dubliniensis SHANEKA KRUSEI DNA Not detected (qualifier value) No Shaneka krusei detected SHANEKA GLABRATA DNA Not detected (qualifier value) No Shaneka glabrata detected TRICHOMONAS VAG DNA Not detected (qualifier value) No Trichomonas vaginalis detected NOTE BD MAX Vaginal Panel has not been evaluated for patients under 18 years old. Results for these patients should be reviewed and assessed in accordance with clinical presentation to determine patient diagnosis. Normal [facility] Comment on above: Performed By: #### V PPCR #### [facility] ([id number]) [address] [place] [address], [address] [place] [address] CBC AND AUTO DIFFon 09-18-19 24 ABSOLUTE BASOPHIL 0.0 X10E9/L Normal 0.0-0.2 [facility] Comment on above: Performed By: #### C OMID, 3040-3, CBCA #### [facility] ([id number]) [address] [place] [address] ABSOLUTE NEUTROPHIL 7.3 X10E9/L High 1.5-6.6 [facility] Comment on above: Performed By: #### Ann-Marie ANNE, 3039-3, CBCA #### [facility] ([id number]) [address] [place] [address] Basophils/100 WBC (Bld) 0.3 % Normal [facility] Comment on above: Performed By: #### Ann-Marie ANNE, 3039-3, CBCA #### [facility] ([id number]) [address] [place] [address] Eosinophils (Bld) [#/Vol] 0.0 10*3/uL Normal 0.0-0.4 [facility] Comment on above: Performed By: #### Ann-Marie ANNE, 3040-3, CBCA #### [facility] ([id number]) [address] [place] [address]1627 Eosinophils/100 WBC (Bld) 0.5 % Normal [facility] Comment on above: Performed By: #### C OMID, 3039-3, CBCA #### [facility] ([id number]) [address] [place] [address]483 Erythrocyte distribution width (RBC) [Ratio] 12.8 % Normal 11.5-15.0 [facility] Comment on above: Performed By: #### C OMID, 3039-3, CBCA #### [facility] ([id number]) [address] [place], [place] [address] Hematocrit (Bld) [Volume fraction] 33.3 % Low 35-47 [facility] Comment on above: Performed By: #### C OMID, 3039-07, CBCA #### [facility] ([id number]) [address] [place], [place] [address] Hemoglobin (Bld) [Mass/Vol] 12.0 g/dL Normal 11.7-15.5 [facility] Comment on above: Performed By: #### C OMID, 3039-07, CBCA #### [facility] ([id number]) [address] [place] [address] Lymphocytes (Bld) [#/Vol] 2.0 10*3/uL Normal 1.0-3.5 [facility] Comment on above: Performed By: #### C OMID, 3039-07, CBCA #### [facility] ([id number]) [address] [place], [place] [address] Lymphocytes/100 WBC (Bld) 20.3 % Normal [facility] Comment on above: Performed By: #### C OMID, 3, CBCA #### [facility] ([id number]) [address] [place] [address] MCH (RBC) [Entitic mass] 30.8 pg Normal 27-34 [facility] Comment on above: Performed By: #### C OMID, 3039-3, CBCA #### [facility] ([id number]) [address] [place] [address]60 MCHC (RBC) [Mass/Vol] 36.0 g/dL Normal 32-36 [facility] Comment on above: Performed By: #### C OMID, 3039-3, CBCA #### [facility] ([id number]) [address] [place] [address]2885 MCV (RBC) [Entitic vol] 85 fL Normal 80-100 [facility] Comment on above: Performed By: #### C OMID, 3039-07, CBCA #### [facility] ([id number]) [address] [place] [address] 91477 Monocytes (Bld) [#/Vol] 0.5 10*3/uL Normal 0-0.9 [facility] Comment on above: Performed By: #### C OMID, 3039-07, CBCA #### [facility] ([id number]) [address] [place] [address]302 Monocytes/100 WBC (Bld) 5.2 % Normal [facility] Comment on above: Performed By: #### Ann-Marie ANNE, 3039-07, CBCA #### [facility] ([id number]) [address] [place] [address] 24031 Neutrophils/100 WBC (Bld) 73.7 % Normal [facility] Comment on above: Performed By: #### Ann-Marie ANNE, 3039-07, CBCA #### [facility] ([id number]) [address] [place] [address]1976 Platelet mean volume (Bld) [Entitic vol] 8.3 fL Normal 7-12 [facility] Comment on above: Performed By: #### Ann-Marie ANNE, 3039-, CBCA #### [facility] ([id number]) [address] [place] [address]14 Platelets (Bld) [#/Vol] 203 10*3/uL Normal 150-450 [facility] Comment on above: Performed By: #### C OMID, 3039-3, CBCA #### [facility] ([id number]) [address] [place], [place] [address] RBC COUNT 3.89 X10E12/L Normal 3.80-5.20 [facility] Comment on above: Performed By: #### C OMID, 3039-3, CBCA #### [facility] ([id number]) [address] [place], [place] [address] WBC (Bld) [#/Vol] 9.8 10*3/uL Normal 4.0-11.0 [facility] Comment on above: Performed By: #### C OMID, 3039-, CBCA #### [facility] ([id number]) [address] [place] [address] COMPREHENSIVE METABOLIC PANE [facility] 09-18-2023 Albumin [Mass/Vol] 2.9 g/dL Low 3.2-5.3 [facility] Comment on above: Performed By: #### C OMID, 3039-, CBCA #### [facility] ([id number]) [address] [place], [place] [address] ALP [Catalytic activity/Vol] 71 U/L Normal 39-130 [facility] Comment on above: Performed By: #### C OMID, 3039-3, CBCA #### [facility] ([id number]) [address] [place], [place] [address] ALT [Catalytic activity/Vol] 9 U/L Normal 0-31 [facility] Comment on above: Performed By: #### C OMID, 0-3, CBCA #### [facility] ([id number]) [address] [place], [place] [address] Anion gap [Moles/Vol] 10 mmol/L Normal 5-15 [facility] Comment on above: Performed By: #### C OMID, 0-3, CBCA #### [facility] ([id number]) [address] [place] [address] AST [Catalytic activity/Vol] 15 U/L Normal 0-41 [facility] Comment on above: Performed By: #### C OMID, 3039-3, CBCA #### [facility] ([id number]) [address] [place] [address]9428 Bilirubin [Mass/Vol] 0.4 mg/dL Normal 0.3-1.2 [facility] Comment on above: Performed By: #### C OMID, 3039-07, CBCA #### [facility] ([id number]) [address] [place] [address] 46982 Calcium [Mass/Vol] 8.2 mg/dL Low 8.5-10.5 [facility] Comment on above: Performed By: #### C OMID, 3039-07, CBCA #### [facility] ([id number]) [address] [place] [address] 12746 Chloride [Moles/Vol] 103 mmol/L Normal 98-109 [facility] Comment on above: Performed By: #### C OMID, 3039-07, CBCA #### [facility] ([id number]) [address] [place] [address] 36451 CO2 [Moles/Vol] 21 mmol/L Low 22-32 [facility] Comment on above: Performed By: #### C OMID, 3039-07, CBCA #### [facility] ([id number]) [address] [place] [address] 86181 Creatinine [Mass/Vol] 0.51 mg/dL Normal 0.40-1.00 [facility] Comment on above: Result Comment: METH OD TRACEABLE TO IDMS STANDARD Performed By: #### C OMID, 3039-, CBCA #### [facility] ([id number]) [address] [place] [address] 15204 eGFR (CKD-EPI) NON-RACE DEPENDENT >90 Normal >59 [facility] Comment on above: Result Comment: Reported eGFR is based on the CKD-EPI 2020 equation that does not use a race coefficient. Performed By: #### C OMID, 3039-3, CBCA #### [facility] ([id number]) [address] [place] [address] 93691 Glucose [Mass/Vol] 92 mg/dL Normal 65-99 [facility] Comment on above: Performed By: #### Ann-Marie ANNE, 3039-07, CBCA #### [facility] ([id number]) [address] [place] [address] 47578 Potassium [Moles/Vol] 3.7 mmol/L Normal 3.5-5.0 [facility] Comment on above: Performed By: #### Ann-Marie ANNE, 3039-07, CBCA #### [facility] ([id number]) [address] [place] [address] 42788 Protein [Mass/Vol] 6.5 g/dL Normal 6.0-8.0 [facility] Comment on above: Performed By: #### Ann-Marie ANNE, 3039-07, CBCA #### [facility] ([id number]) [address] [place] [address] 50852 Sodium [Moles/Vol] 134 mmol/L Normal 134-146 [facility] Comment on above: Performed By: #### Ann-Marie ANNE, 3, CBCA #### [facility] ([id number]) [address] [place] [address] 95828 Urea nitrogen [Mass/Vol] 14 mg/dL Normal 5-23 [facility] Comment on above: Performed By: #### Ann-Marie ANNE, 3, CBCA #### [facility] ([id number]) [address] [place] [address]12 LIPASEon 09-18-2023 Lipase [Catalytic activity/Vol] 48 U/L High 17-40 [facility] Comment on above: Performed By: #### Ann-Marie ANNE, 3039-3, CBCA #### [facility] ([id number]) [address] [place] [address]134 URINE CULTUREon 09-18-2023 Bacteria identified Cx Nom (U) CULTURE RESULTS <10,000 ORGANISMS/ML NORMAL URO GENITAL ALEX Normal [facility] Comment on above: Performed By: #### 6 30-4 #### [facility] ([id number]) [address] [place] [address], [address] [place] [address] URN MACROSCOPIC NURon 2023 BILIRUBIN ELOISA Negative Normal NEG [facility] Comment on above: Performed By: #### N UM #### [facility] ([id number]) [address] [place] [address]33 BLOOD/HGB ELOISA Negative Normal NEG [facility] Comment on above: Performed By: #### N UM #### [facility] ([id number]) [address] [place] [address]32 GLUCOSE ELOISA Negative Normal NEG [facility] Comment on above: Performed By: #### N UM #### [facility] ([id number]) [address] [place] [address]32 KETONES ELOISA Negative Normal NEG [facility] Comment on above: Performed By: #### N UM #### [facility] ([id number]) [address] [place] [address] 85071 LEUKOCYTE ESTERASE ELOISA Negative Normal NEG [facility] Comment on above: Performed By: #### N UM #### [facility] ([id number]) [address] [place] [address]25 NITRITE ELOISA Negative Normal NEG [facility] Comment on above: Performed By: #### N UM #### [facility] ([id number]) [address] [place] [address] 56661 PH ELOISA 7.0 Normal 5.0-8.5 [facility] Comment on above: Performed By: #### N UM #### [facility] ([id number]) [address] [place] [address] PROTEIN ELOISA Negative Normal NEG [facility] Comment on above: Performed By: #### N UM #### [facility] ([id number]) [address] [place] [address] 49625 SPECIFIC GRAVITY ELOISA 1.020 Normal 1.003-1.035 [facility] Comment on above: Performed By: #### N UM #### [facility] ([id number]) [address] [place] [address]662 UROBILINOGEN ELOISA 0.2 eu/dL Normal <1.1 [facility] Comment on above: Performed By: #### N UM #### [facility] ([id number]) [address] [place] [address] 10331 Glucose 1 Hr post dose gluco se [Mass/Vol]on 08-30-2023 1ST HR GTT 115 mg/dL Low 120-170 [facility] Comment on above: Performed By: #### 6 864-3, THYR, CBCA, 5196-1, 87903-8, 77030- 1, 18725-9, 22378-6, 73617-1 #### [facility] ([id number]) [address], [address] [place] [address] Glucose 2 Hr post 75 g gluco se PO [Mass/Vol]on 08-30-2023 2ND HR GTT 75 GM LOAD 94 mg/dL Normal 70-139 [facility] Comment on above: Result Comment: According to the [place] [employer]'s current guidelines for Screening of Gestational Diabetes Mellitus a positive diagnosis for GDM is made if any of the following plasma glucose levels are exceeded: Fasting Glucose: >/=92 mg/dl 1 hr post 75g load: >/=180 mg/dl 2 hr post 75g load: >/=153 mg/dl [place] [employer] and World Health Organization recommendations for diagnosis of Diabetes in Non- adults. Random Glucose >200mg/dL Fasting Glucose >=126mg/dL Impaired Fasting Glucose 100-125mg/dL 2hr post 75g load >=200mg/dL Impaired 2hr post 75g load 140-199mg/dL Performed By: #### 6 864-3, THYR, CBCA, 5196-1, 84226-2, 58317-2, 72398-4, 04193-9, 94186-8 #### [facility] ([id number]) [address], [address] [place] [address] Glucose post fast [Mass/Vol] on 08-30-2023 FASTING GTT 71 mg/dL Normal 65-99 [facility] Comment on above: Performed By: #### 6 864-3, THYR, CBCA, 5196-1, 96510-0, 81446- 1, 09030-8, 48819-3, 99318-8 #### [facility] ([id number]) [address], [address] [place] [address] PROTEIN CREAT RATIOon 2023 RANDOM URINE PROTEIN 140 mg/L High <120 [facility] Comment on above: Performed By: #### 6 864-3, THYR, CBCA, 5196-1, 37873-1, 57784- 1, 95933-1, 57151-2, 14587-2 #### [facility] ([id number]) [address], [address] [place] [address] U/PRO/TAX RECORD CLERK RATIO CALC 0.08 Normal <0.2 [facility] Comment on above: Result Comment: Neph rotic Syndrome is associated with ratios >3.5 Performed By: #### 6 864-3, THYR, CBCA, 5196-1, 25491-7, 62504-2, 14386-3, 12750-6, 16251-3 #### [facility] ([id number]) [address], [address] [place] [address] URINE CREATININE,RDM 175.63 mg/dL Normal [facility] Comment on above: Performed By: #### 6 864-3, THYR, CBCA, 5196-1, 01164-4, 21550- 1, 97610-0, 66224-4, 19938-9 #### [facility] ([id number]) [address], [address] [place] [address] CBC AND AUTO DIFFon 08-29-19 ABSOLUTE BASOPHIL 0.0 X10E9/L Normal 0.0-0.2 [facility] Comment on above: Performed By: #### 6 864-3, THYR, CBCA, 5196-1, 40348-7, 37432- 1, 33071-1, 73724-5, 73360-1 #### [facility] ([id number]) [address], [address] [place] [address] ABSOLUTE NEUTROPHIL 6.8 X10E9/L High 1.5-6.6 [facility] Comment on above: Performed By: #### 6 864-3, THYR, CBCA, 5196-1, 44112-4, 16186- 1, 66005-7, 61356-0, 39896-9 #### [facility] ([id number]) [address], [address] [place] [address] Basophils/100 WBC (Bld) 0.3 % Normal [facility] Comment on above: Performed By: #### 6 864-3, THYR, CBCA, 5196-1, 66906-8, 74672- 1, 20548-7, 35386-6, 99415-3 #### [facility] ([id number]) [address], [address] [place] [address] Eosinophils (Bld) [#/Vol] 0.0 10*3/uL Normal 0.0-0.4 [facility] Comment on above: Performed By: #### 6 864-3, THYR, CBCA, 5196-1, 40284-7, 75231- 1, 95072-6, 54639-5, 28551-6 #### [facility] ([id number]) [address], [address] [place] [address] Eosinophils/100 WBC (Bld) 0.5 % Normal [facility] Comment on above: Performed By: #### 6 864-3, THYR, CBCA, 5196-1, 86055-7, 80600- 1, 13793-1, 01814-9, 41413-2 #### [facility] ([id number]) [address], [address] [place] [address] Erythrocyte distribution width (RBC) [Ratio] 13.7 % Normal 11.5-15.0 [facility] Comment on above: Performed By: #### 6 864-3, THYR, CBCA, 5196-1, 19480-4, 49506- 1, 88079-9, 61766-3, 05513-0 #### [facility] ([id number]) [address], [address] [place] [address] Hematocrit (Bld) [Volume fraction] 35.6 % Normal 35-47 [facility] Comment on above: Performed By: #### 6 864-3, THYR, CBCA, 5196-1, 12314-3, 54657- 1, 95626-3, 60506-8, 98465-0 #### [facility] ([id number]) [address], [address] [place] [address] Hemoglobin (Bld) [Mass/Vol] 12.4 g/dL Normal 11.7-15.5 [facility] Comment on above: Performed By: #### 6 864-3, THYR, CBCA, 5196-1, 62807-3, 93485- 1, 94015-1, 64859-4, 66567-6 #### [facility] ([id number]) [address], [address] [place] [address] Lymphocytes (Bld) [#/Vol] 1.7 10*3/uL Normal 1.0-3.5 [facility] Comment on above: Performed By: #### 6 864-3, THYR, CBCA, 5196-1, 78876-5, 15921- 1, 09055-7, 53951-1, 36918-0 #### [facility] ([id number]) [address], [address] [place] [address] Lymphocytes/100 WBC (Bld) 19.1 % Normal [facility] Comment on above: Performed By: #### 6 864-3, THYR, CBCA, 5196-1, 62310-5, 03900- 1, 44591-9, 94297-6, 67140-3 #### [facility] ([id number]) [address], [address] [place] [address] MCH (RBC) [Entitic mass] 30.9 pg Normal 27-34 [facility] Comment on above: Performed By: #### 6 864-3, THYR, CBCA, 5196-1, 83733-8, 78581- 1, 69295-0, 47735-7, 73027-1 #### [facility] ([id number]) [address], [address] [place] [address] MCHC (RBC) [Mass/Vol] 34.8 g/dL Normal 32-36 [facility] Comment on above: Performed By: #### 6 864-3, THYR, CBCA, 5196-1, 02850-6, 45555- 1, 93692-5, 71648-7, 19084-8 #### [facility] ([id number]) [address], [address] [place] [address] MCV (RBC) [Entitic vol] 89 fL Normal 80-100 [facility] Comment on above: Performed By: #### 6 864-3, THYR, CBCA, 5196-1, 03198-8, 24085- 1, 85709-2, 80927-5, 33490-3 #### [facility] ([id number]) [address], [address] [place] [address] Monocytes (Bld) [#/Vol] 0.4 10*3/uL Normal 0-0.9 [facility] Comment on above: Performed By: #### 6 864-3, THYR, CBCA, 5196-1, 95713-5, 16460- 1, 30556-9, 11440-5, 64371-1 #### [facility] ([id number]) [address], [address] [place] [address] Monocytes/100 WBC (Bld) 4.7 % Normal [facility] Comment on above: Performed By: #### 6 864-3, THYR, CBCA, 5196-1, 44127-1, 97550- 1, 08130-9, 33038-6, 12804-9 #### [facility] ([id number]) [address], [address] [place] [address] Neutrophils/100 WBC (Bld) 75.4 % Normal [facility] Comment on above: Performed By: #### 6 864-3, THYR, CBCA, 5196-1, 00864-1, 62327- 1, 90667-6, 86266-5, 32522-2 #### [facility] ([id number]) [address], [address] [place] [address] Platelet mean volume (Bld) [Entitic vol] 9.0 fL Normal 7-12 [facility] Comment on above: Performed By: #### 6 864-3, THYR, CBCA, 5196-1, 79591-0, 36779- 1, 26008-5, 25021-0, 89440-9 #### [facility] ([id number]) [address], [address] [place] [address] Platelets (Bld) [#/Vol] 218 10*3/uL Normal 150-450 [facility] Comment on above: Performed By: #### 6 864-3, THYR, CBCA, 5196-1, 38719-2, 44218- 1, 17147-8, 87892-6, 91858-3 #### [facility] ([id number]) [address], [address] [place] [address] RBC COUNT 4.01 X10E12/L Normal 3.80-5.20 [facility] Comment on above: Performed By: #### 6 864-3, THYR, CBCA, 5196-1, 87985-2, 85570- 1, 21919-6, 08797-5, 97611-8 #### [facility] ([id number]) [address], [address] [place] [address] WBC (Bld) [#/Vol] 9.0 10*3/uL Normal 4.0-11.0 [facility] Comment on above: Performed By: #### 6 864-3, THYR, CBCA, 5196-1, 16808-7, 69868- 1, 09477-2, 46610-9, 21673-0 #### [facility] ([id number]) [address], [address] [place] [address] CHLAMYDIA/GC BY PCRon 2023 CHLAMYDIA/GC BY PCR SPECIMEN SOURCE CERVIX CHLAMYDIA DNA(PCR) Negative (qualifier value) Chlamydia trachomatis not detected by nucleic acid amplification. This does not exclude the possibility of infection because results are dependent on adequate specimen collection. GONORRHOEAE DNA(PCR) Negative (qualifier value) Neisseria gonorrhoeae not detected by nucleic acid amplification. This does not exclude the possibility of infection because results are dependent on adequate specimen collection. Normal [facility] Comment on above: Performed By: #### 6 864-3, THYR, CBCA, 5196-1, 08842-9, 00303- 1, 77830-4, 59584-5, 39813-1 #### [facility] ([id number]) [address], [address] [place] [address] HBV surface Ag IA Qlon 08-28 HEPATITIS B SURF AG Negative Normal NEG [facility]Me [facility] Comment on above: Performed By: #### 6 864-3, THYR, CBCA, 5196-1, 28758-5, 96365- 1, 41689-3, 63956-2, 59924-7 #### [facility] ([id number]) [address], [address] [place] [address] HCV Ab IA on 08-29-2023 ANTI HCV W/PCR REFLX Non-Reactive Normal NRCT Pr [facility] Comment on above: Result Comment: If recent infection suspected, recommend repeat testing (>2 months). [place]-gn-xxphjw ratio is <0.80. Performed By: #### 6 864-3, THYR, CBCA, 5196-1, 70297-7, 12897-0, 60392-5, 23713-1, 59175-0 #### [facility] ([id number]) [address], [address] [place] [address] HIV 1+2 Ab+HIV1 p24 Ag IA Ql on 08-29-2023 HIV 1 and 2 Ab/Ag Screen Non-Reactive Normal NRCT [facility] Comment on above: Result Comment: This information has been disclosed to you from confidential records protected from disclosure by state law. You shall make no further disclosure of this information without the specific, written and informed release of the individual to whom it pertains, or as otherwise permitted by state law. A general authorization for the release of medical or other information is not sufficient for the purpose of the release of HIV test results or diagnoses. Performed By: #### 6 864-3, THYR, CBCA, 5196-1, 73127-9, 19288-5, 49835-9, 53297-8, 77845-2 #### [facility] ([id number]) [address] [place] [address], [address] [place] [address] Hemoglobin S Solubility test Ql (Bld)on 08-29-2023 SICKLE SOLUBILITY Negative Normal NEG [facility] Comment on above: Performed By: #### 6 864-3, THYR, CBCA, 5196-1, 33501-3, 75744- 1, 24984-3, 46999-9, 13239-7 #### [facility] ([id number]) [address] [place] [address], [address] [address] Rubella virus Ab Ql (S)on RUBELLA IMMUNE IgG 1.3 AI Normal [facility] Comment on above: Result Comment: Interpretation-------- <0.8 NEGATIVE-considered Not Immune 0.8-0.9 EQUIVOCAL-consider retesting with new specimen >0.9 POSITIVE-considered Immune Performed By: #### 6 864-3, THYR, CBCA, 5196-1, 59157-9, 82173-0, 22358-2, 38614-9, 93850-4 #### [facility] ([id number]) [address] [place] [address], [address] [place] [address] T. pallidum IgG+IgM IA Ql (S )on 08-29-2023 Syphilis Total <0.2 Normal 0.0-0.8 [facility] Comment on above: Result Comment: NON REACTIVE No serologic evidence of infection to Treponema pallidum (syphilis). Repeat testing may be considered in patients with suspected acute or primary syphilis in 2 to 4 weeks. Performed By: #### 6 864-3, THYR, CBCA, 5196-1, 95145-8, 30130-3, 53495-7, 90534-3, 90991-3 #### [facility] ([id number]) [address], [address] [place] [address] THYROID PROFILEon 08-29-2023 Free T4 [Mass/Vol] 0.71 ng/dL Normal 0.61-1.60 [facility] Comment on above: Performed By: #### 6 864-3, THYR, CBCA, 5196-1, 85065-4, 44379- 1, 07792-0, 69809-2, 46559-2 #### [facility] ([id number]) [address] [place] [address] TSH 2.04 uIU/mL Normal 0.49-4.67 [facility] Comment on above: Performed By: #### 6 864-3, THYR, CBCA, 5196-1, 16764-4, 48525- 1, 88344-6, 32538-3, 32617-7 #### [facility] ([id number]) [address], [address] [place] [address] URINALYSISon 08-29-2023 Bilirubin Ql (U) Negative Normal NEG [facility] BLOOD/HGB Negative Normal NEG [facility] Color (U) YELLOW Normal YELLOW [facility] Glucose Ql (U) Negative Normal NEG [facility] Ketones Ql (U) Negative Normal NEG [facility] Leukocyte esterase Test strip Ql (U) Large Abnormal NEG [facility] MUCOUS PRESENT Abnormal NONE [facility] Nitrite Ql (U) Negative Normal NEG [facility] pH (U) 6.5 [pH] Normal 5.0-8.5 [facility] Protein Ql (U) Trace Abnormal NEG [facility] R.B.CELLS 2 /hpf Normal 0-5 [facility] Specific gravity (U) [Rel density] 1.021 Normal 1.003-1.035 [facility] SPERM PRESENT Abnormal NONE [facility] SQUAMOUS EPITHELIUM 12 /hpf High 0-5 [facility] TURBIDITY HAZY Abnormal CLEAR [facility] Urobilinogen (U) [Mass/Vol] mg/dL Normal <1.1 [facility] W.B.CELLS 91 /hpf High 0-5 [facility] URINE CULTUREon 08-29-2023 Bacteria identified Cx Nom (U) CULTURE RESULTS 10-50,000 ORGANISMS/mL NORMAL UROGENITAL ALEX Normal [facility] Comment on above: Performed By: #### 6 864-3, THYR, CBCA, 5196-1, 76351-2, 85852- 1, 49726-1, 09911-1, 64679-4 #### [facility] ([id number]) [address], [address] [place] [address] US PREG GREATER THAN 14 WKS SNGL TRANSABon 08-29-2023 US PREG GREATER THAN 14 WKS SNGL TRANSAB US PREG GREATER THAN 14 WKS SNGL TRANSAB *ADDENDUM*Addendum: Corrected impression: Estimated weight is 19.9%. Finalized by Fernandez Hernandez MD on 08/29/2023 1:52 PM Normal [facility] US TRANSVAGINAL PREGon 08-28 US TRANSVAGINAL PREG US TRANSVAGINAL PRE G *ADDENDUM*Addendum: Corrected impression: Estimated weight is 19.9%. Finalized by Fernandez Hernandez MD on 08/29/2023 1:52 PM Normal [facility] VAGINITIS PANEL PCRon 2023 VAGINITIS PANEL PCR BACT. VAGINOSIS DNA Not detected (qualifier value) Qualitative results are reported based on detection and quantitation of targeted organism markers which include: Lactobacillus spp. (L. crispatus and L. jensenii), Gardnerella vaginalis, Atopobium vaginae, Bacterial Vaginosis Associated Bacteria-2 (BVAB-2) and Megasphaera-1 SHANEKA SPECIES DNA Detected (qualifier value) Shaneka species result based on detection of one or more of the following species: C. albicans, C. tropicalis, C. parapsilosis or C. dubliniensis SHANEKA KRUSEI DNA Not detected (qualifier value) No Shaneka krusei detected SHANEKA GLABRATA DNA Not detected (qualifier value) No Shankea glabrata detected TRICHOMONAS VAG DNA Not detected (qualifier value) No Trichomonas vaginalis detected NOTE BD MAX Vaginal Panel has not been evaluated for patients under 18 years old. Results for these patients should be reviewed and assessed in accordance with clinical presentation to determine patient diagnosis. Normal [facility] Comment on above: Performed By: #### 6 864-3, THYR, CBCA, 5196-1, 29156-6, 30265- 1, 44179-2, 25623-9, 42261-9 #### [facility] ([id number]) [facility] [place] [address] VZV IgG IA Ql (S)on 08-29-19 24 VARICELLA IgG 0.3 AI Normal <0.9 [facility] Comment on above: Result Comment: Interpretation-------- <0.9 Negative 0.9 - 1.0 Equivocal >1.0 Positive Performed By: #### 6 864-3, THYR, CBCA, 5196-1, 68514-6, 23451-4, 70972-4, 72546-0, 38027-3 #### [facility] ([id number]) [address], [address] [place] [address] DRUG SCREEN, URINEon 024 AMPHETAMINE/METHAMP Negative Normal NEG [facility] Comment on above: Result Comment: AMPH /METH screening cut off = 1000 ng/mL Performed By: #### D JARAMILLO #### [facility] ([id number]) [address], [address] [place] [address] BARBITURATES Negative Normal NEG [facility] Comment on above: Result Comment: Jami iturates screening cut off value = 200 ng/mL Performed By: #### D JARAMILLO #### [facility] ([id number]) [address], [address] [place] [address] BENZODIAZEPINES Negative Normal NEG [facility] Comment on above: Result Comment: Hunter odiazepines screening cut off value = 200 ng/mL Performed By: #### D JARAMILLO #### [facility] ([id number]) [address], [address] [place] [address] CANNABINOIDS Positive Abnormal NEG [facility] Comment on above: Result Comment: Conf irmation available upon request. Cannabinoids/THC screening cut off value = 50 ng/mL Performed By: #### D JARAMILLO #### [facility] ([id number]) [address], [address] [place] [address] COCAINE METABOLITE Negative Normal NEG [facility] Comment on above: Result Comment: Coca ine screening cut off value = 300 ng/mL Performed By: #### D JARAMILLO #### [facility] ([id number]) [address], [address] [place] [address] ECSTASY Negative Normal NEG [facility] Comment on above: Result Comment: Ecst asy screening cut off value = 500 ng/mL This report is intended for use in clinical monitoring or management of patients. Performed By: #### D JARAMILLO #### [facility] ([id number]) [address], [address] [place] [address] METHADONE Negative Normal NEG [facility] Comment on above: Result Comment: Meth adone screening cut off value = 300 ng/mL. Performed By: #### D JARAMILLO #### [facility] ([id number]) [address], [address] [place] [address] OPIATES Negative Normal NEG [facility] Comment on above: Result Comment: Opia olivia screening cut off value = 300 ng/mL NOTE: This test is used for the detection of codeine, hydrocodone (>1000 ng/mL), morphine and hydromorphone (>900 ng/mL) in urine. Performed By: #### D JARAMILLO #### [facility] ([id number]) [address] [place] [address], [address] [place] [address] OXYCODONE Negative Normal NEG [facility] Comment on above: Result Comment: Oxyc odone screening cut off value = 300 ng/mL NOTE: This test is used for the detection of oxycodone and oxymorphone in urine. Performed By: #### D JARAMILLO #### [facility] ([id number]) [address] [place] [address], [address] [place] [address] PHENCYCLIDINE Negative Normal NEG [facility] Comment on above: Result Comment: Phen cyclidine screening cut off value = 25 ng/mL Performed By: #### D JARAMILLO #### [facility] ([id number]) [address] [place] [address], [address] [place] [address] HCG ( test) Ql (U)o n 08-22-2023 Beta HCG ( test) Ql (U) Positive Abnormal NEG [facility] Comment on above: Performed By: #### 2 106-3 #### [facility] ([id number]) [address] [place] [address] URN MACROSCOPIC NURon 2023 BILIRUBIN ELOISA Negative Normal NEG [facility] Comment on above: Performed By: #### N UM #### [facility] ([id number]) [address] [place] [address] BLOOD/HGB ELOISA Negative Normal NEG [facility] Comment on above: Performed By: #### N UM #### [facility] ([id number]) [address] [place] [address] GLUCOSE ELOISA Negative Normal NEG [facility] Comment on above: Performed By: #### N UM #### [facility] ([id number]) [address] [place] [address] KETONES ELOISA Trace Abnormal NEG [facility] Comment on above: Performed By: #### N UM #### [facility] ([id number]) [address] [place] [address] LEUKOCYTE ESTERASE ELOISA Small Abnormal NEG [facility] Comment on above: Performed By: #### N UM #### [facility] ([id number]) [address] [place] [address] NITRITE ELOISA Negative Normal NEG [facility] Comment on above: Performed By: #### N UM #### [facility] ([id number]) [address] [place] [address] PH ELOISA 6.0 Normal 5.0-8.5 [facility] Comment on above: Performed By: #### N UM #### [facility] ([id number]) [address] [place] [address] PROTEIN ELOISA Negative Normal NEG [facility] Comment on above: Performed By: #### N UM #### [facility] ([id number]) [address] [place] [address] SPECIFIC GRAVITY ELOISA >=1.030 Normal 1.003-1.035 [facility] Comment on above: Performed By: #### N UM #### [facility] ([id number]) [address] [place] [address] UROBILINOGEN ELOISA 0.2 eu/dL Normal <1.1 [facility] Comment on above: Performed By: #### N UM #### [facility] ([id number]) [address] [place] [address] BASIC METABOLIC PANLon 07-29 Anion gap [Moles/Vol] 4 mmol/L Low 5-15 [facility] Comment on above: Performed By: #### C BCA, BMP, 20321-3 #### [facility] ([id number]) [address] [place] [address] Calcium [Mass/Vol] 8.3 mg/dL Low 8.5-10.[address] [facility] Comment on above: Performed By: #### C HARITHA PONCE, #### [facility] ([id number]) [address] [place] [address] Chloride [Moles/Vol] 106 mmol/L Normal 98-109 [facility] Comment on above: Performed By: #### C HARITHA PONCE, #### [facility] ([id number]) [address] [place] [address] CO2 [Moles/Vol] 23 mmol/L Normal 22-32 [facility] Comment on above: Performed By: #### C HARITHA PONCE, #### [facility] ([id number]) [address] [place] [address] Creatinine [Mass/Vol] 0.54 mg/dL Normal 0.40-1.00 [facility] Comment on above: Result Comment: METH OD TRACEABLE TO IDMS STANDARD Performed By: #### C HARITHA PONCE, #### [facility] ([id number]) [address] [place] [address] eGFR (CKD-EPI) NON-RACE DEPENDENT >90 Normal >59 [facility] Comment on above: Result Comment: Reported eGFR is based on the CKD-EPI 2020 equation that does not use a race coefficient. Performed By: #### C KRIS, BMP, #### [facility] ([id number]) [address] [place] [address] Glucose [Mass/Vol] 85 mg/dL Normal 65-[address] [facility] Comment on above: Performed By: #### C KRIS, BMP, #### [facility] ([id number]) [address] [place] [address] Potassium [Moles/Vol] 4.1 mmol/L Normal 3.5-5.0 [facility] Comment on above: Result Comment: SPEC IMEN HEMOLYZED, RESULTS INCREASED Performed By: #### C HARITHA PONCE, #### [facility] ([id number]) [address] [place] [address] Sodium [Moles/Vol] 133 mmol/L Low 134-[address] [facility] Comment on above: Performed By: #### HARITHA Jacobsen BCA, #### [facility] ([id number]) [address] [place] [address] Urea nitrogen [Mass/Vol] 7 mg/dL Normal 5-23 [facility] Comment on above: Performed By: #### HARITHA Jacobsen BCA, #### [facility] ([id number]) [address] [place] [address] CBC AND AUTO DIFFon 07-30-19 24 ABSOLUTE BASOPHIL 0.0 X10E9/L Normal 0.0-0.[address] [facility] Comment on above: Performed By: #### Ann-Marie PONCE [facility], #### [facility] ([id number]) [address] [place] [address] ABSOLUTE NEUTROPHIL 6.9 X10E9/L High 1.5-6.6 [facility] Comment on above: Performed By: #### HARITHA Jacobsen BCA, #### [facility] ([id number]) [address] [place] [address] 10466 Basophils/100 WBC (Bld) 0.5 % Normal [facility] Comment on above: Performed By: #### HARITHA Jacobsen BCA, #### [facility] ([id number]) [address] [place] [address] Eosinophils (Bld) [#/Vol] 0.1 10*3/uL Normal 0.0-0.4 [facility] Comment on above: Performed By: #### HARITHA Jacobsen BCA, #### [facility] ([id number]) [address] [place] [address] 13500 Eosinophils/100 WBC (Bld) 0.9 % Normal [facility] Comment on above: Performed By: #### Ann-Marie PONCE [facility], #### [facility] ([id number]) [address] [place] [address]11 Erythrocyte distribution width (RBC) [Ratio] 14.4 % Normal 11.5-15.0 [facility] Comment on above: Performed By: #### HARITHA Jacobsen BCA, #### [facility] ([id number]) [address] [place] [address] Hematocrit (Bld) [Volume fraction] 34.8 % Low 35-47 [facility] Comment on above: Performed By: #### Ann-Marie PONCE [facility], #### [facility] ([id number]) [address] [place] [address]809 Hemoglobin (Bld) [Mass/Vol] 12.3 g/dL Normal 11.7-15.5 [facility] Comment on above: Performed By: #### HARITHA Jacobsen BCA, #### [facility] ([id number]) [address] [place] [address]100 Lymphocytes (Bld) [#/Vol] 2.0 10*3/uL Normal 1.0-3.5 [facility] Comment on above: Performed By: #### HARITHA Jacobsen BCA, #### [facility] ([id number]) [address] [place] [address] 45170 Lymphocytes/100 WBC (Bld) 21.4 % Normal [facility] Comment on above: Performed By: #### HARITHA Jacobsen BCA, #### [facility] ([id number]) [address] [place] [address]5436 MCH (RBC) [Entitic mass] 30.2 pg Normal 27-34 [facility] Comment on above: Performed By: #### HARITHA Jacobsen BCA, #### [facility] ([id number]) [address] [place] [address]995 MCHC (RBC) [Mass/Vol] 35.4 g/dL Normal 32-36 [facility] Comment on above: Performed By: #### HARITHA Jacobsen BCA, #### [facility] ([id number]) [address] [place] [address] 14943 MCV (RBC) [Entitic vol] 85 fL Normal 80-100 [facility] Comment on above: Performed By: #### HARITHA Jacobsen BCA, #### [facility] ([id number]) [address] [place] [address] 67758 Monocytes (Bld) [#/Vol] 0.5 10*3/uL Normal 0-0.9 [facility] Comment on above: Performed By: #### HARITHA Jacobsen BCA, #### [facility] ([id number]) [address] [place] [address] 99702 Monocytes/100 WBC (Bld) 4.8 % Normal [facility] Comment on above: Performed By: #### HARITHA Jacobsen BCA, #### [facility] ([id number]) [address] [place] [address] 63572 Neutrophils/100 WBC (Bld) 72.4 % Normal [facility] Comment on above: Performed By: #### HARITHA Jacobsen BCA, #### [facility] ([id number]) [address] [place] [address] 59301 Platelet mean volume (Bld) [Entitic vol] 9.2 fL Normal 7-12 [facility] Comment on above: Performed By: #### C KRIS [facility], #### [facility] ([id number]) [address] [place] [address] 87757 Platelets (Bld) [#/Vol] 227 10*3/uL Normal 150-450 [facility] Comment on above: Performed By: #### C KRIS [facility], #### [facility] ([id number]) [address] [place] [address] 65437 RBC COUNT 4.08 X10E12/L Normal 3.80-5.20 [facility] Comment on above: Performed By: #### Ann-Marie PONCE [facility], #### [facility] ([id number]) [address] [place] [address] 99191 WBC (Bld) [#/Vol] 9.6 10*3/uL Normal 4.0-11.[address] [facility] Comment on above: Performed By: #### Ann-Marie PONCE [facility], #### [facility] ([id number]) [address] [place] [address]8490 HCG ( test) Ql (U)o n 07-30-2023 Beta HCG ( test) Ql (U) Positive Abnormal NEG [facility] Comment on above: Performed By: #### 2 106-3 #### [facility] ([id number]) [address] [place] [address] 03881 HCG.beta subunit IA 3rd IS Q non 07-30-2023 [place] [address] m[IU]/mL Normal P [facility] Comment on above: Result Comment: NEW REFERENCE RANGE WEEKS (SINCE LMP) MIU/mL 3 WEEKS 5 - 50 4 WEEKS 5 - 426 5 WEEKS 18 - 7,340 6 WEEKS 1,080 - 56,500 7-8 WEEKS 7,650 - 229,000 9-12 WEEKS 25,700 - 288,000 13-16 WEEKS 13,300 - 254,000 17-24 WEEKS 4,060 - 165,400 25-40 WEEKS 3,640 - 117,000 MALES AND NON- FEMALES - <5 MIU/mL This test has been FDA approved for use in only. Elevated levels are not necessarily diagnostic for trophoblastic or nontrophoblastic neoplasms. Performed By: #### C BCA, BMP, 18149-4 #### [facility] ([id number]) [address] [place] [address] 58006 URN MACROSCOPIC NURon 2023 BILIRUBIN ELOISA Negative Normal NEG [facility] Comment on above: Performed By: #### N UM #### [facility] ([id number]) [address] [place] [address] 79095 BLOOD/HGB ELOISA Small Abnormal NEG [facility] Comment on above: Performed By: #### N UM #### [facility] ([id number]) [address] [place] [address] 88373 GLUCOSE ELOISA Negative Normal NEG [facility] Comment on above: Performed By: #### N UM #### [facility] ([id number]) [address] [place] [address] 33164 KETONES ELOISA Negative Normal NEG [facility] Comment on above: Performed By: #### N UM #### [facility] ([id number]) [address] [place] [address] 64283 LEUKOCYTE ESTERASE ELOISA Trace Abnormal NEG [facility] Comment on above: Performed By: #### N UM #### [facility] ([id number]) [address] [place] [address], [place] [address] NITRITE ELOISA Negative Normal NEG [facility] Comment on above: Performed By: #### N UM #### [facility] ([id number]) [address] [place] [address] 04979 PH ELOISA 7.0 Normal 5.0-8.5 [facility] Comment on above: Performed By: #### N UM #### [facility] ([id number]) [address] [place] [address] 29537 PROTEIN ELOISA Negative Normal NEG [facility] Comment on above: Performed By: #### N UM #### [facility] ([id number]) [address] [place] [address] 62729 SPECIFIC GRAVITY ELOISA 1.025 Normal 1.003-1.035 [facility] Comment on above: Performed By: #### N UM #### [facility] ([id number]) [address] [place] [address] 12654 UROBILINOGEN ELOISA 0.2 eu/dL Normal <1.1 [facility] Comment on above: Performed By: #### N UM #### [facility] ([id number]) [address] [place] [address] 45383 US PREG TRANSABD FU PER FETU on 07-30-2023 US PREG TRANSABD FU PER FETU US PREG TRANSABD FU PER FETU ULTRASOUND OB: HISTORY: , vaginal bleeding, 5 months COMPARISON: Pelvic ultrasound 09/02/2022 FINDINGS: Limited OB ultrasound to assess size. A full anatomic evaluation was not performed. A single live intrauterine is identified in cephalic presentation. Placenta is anterior without previa. Amniotic fluid volume is normal. heart rate measures 152 BPM. Biparietal diameter: 4.56 cm, 19 weeks 5 days Head circumference: _ 16.96 cm, 19 weeks 4 days Abdominal circumference:___ 14.01 cm, 19 weeks 3 days Femur length: 3.19 cm, 19 weeks 6 days Estimated Weight:____ 304.51 gm ([place]) Estimated date of delivery 12/19/2023. Normal size right ovary measuring 3.3 x 0.9 x 2.5 cm. Normal size left ovary measuring 3.0 x 1.6 x 3.0 cm. IMPRESSION: Single live intrauterine with a sonographic gestational age of approximately 19 weeks 5 days. Finalized by Ghanshyam Robles MD on 07/30/2023 1:05 PM Normal [facility] Cult,Urineon 11-06-2022 Cult,Urine Specimen Description .Source, Unspecified Culture ESCHERICHIA COLI >[id number] CFU/ML Report Status FINAL 11/06/2022 SUSCEPTIBILITY Organism ESCHERICHIA COLI Method SANDRA Ampicillin >=32 RESISTANT Cefazolin <=4 SUSCEPTIBLE Cefazolin sensitivity results can be used to predict the effectiveness of oral cephalosporins (eg. Cephalexin) in uncomplicated Urinary Tract Infections due to E. coli, K. pneumoniae, and P. mirabilis Ceftriaxone <=0.25 SUSCEPTIBLE ESBL NEGATIVE Gentamicin <=1 SUSCEPTIBLE Levofloxacin <=0.12 SUSCEPTIBLE Piperacillin/Tazobact am <=4 SUSCEPTIBLE Tobramycin <=1 SUSCEPTIBLE Trimethoprim/Sulfa >=320 RESISTANT Resistant [facility] Comment on above: Performed By: #### U RC #### [facility] [address] [place], [place] [id number] Doubler Helper: Tripp Martínez MD [facility] [address] [place] [address] [place] [address] Doubler Helper: Bala Aldrich MD CBC with Diffon 11-04-2022 Abs. Basophil <0.03 Normal 0.00-0.20 [facility] Comment on above: Performed By: #### C P, CDP, LIP #### [facility] [address] [place] [address] Doubler Helper: Bala Aldrich MD Abs.Imm.Granulocyte <0.03 Normal 0.00-0.30 [facility] Comment on above: Performed By: #### C P, CDP, LIP #### [facility] [address] [place], [facility] Doubler Helper: Bala Aldrich MD Abs.Neutrophil (Seg) 4.42 k/uL Normal 1.80-8.00 [facility] Comment on above: Performed By: #### C P, CDP, LIP #### [address] [place], [facility] Doubler Helper: Bala Aldrich MD Basophils/100 WBC (Bld) 0 % Normal 0-2 [facility] Comment on above: Performed By: #### C P, CDP, LIP #### [address] [place], [place] [address] Doubler Helper: Bala Aldrich MD Eosinophils (Bld) [#/Vol] 0.06 10*3/uL Normal 0.00-0.44 [facility] Comment on above: Performed By: #### C P, CDP, LIP #### [address] [place], [facility] Doubler Helper: Bala Aldrich MD Eosinophils/100 WBC (Bld) 1 % Normal 1-4 [facility] Comment on above: Performed By: #### C P, CDP, LIP #### [address] [place], [facility]83 Doubler Helper: Bala Aldrich MD Erythrocyte distribution width (RBC) [Ratio] 12.0 % Normal 11.8-14.4 [facility] Comment on above: Performed By: #### C P, CDP, LIP #### [address] [place], [facility]83 Doubler Helper: Bala Aldrich MD Hematocrit (Bld) [Volume fraction] 33.9 % Low 36.3-47.1 [facility] Comment on above: Performed By: #### C P, CDP, LIP #### [address] [place] [id number] Doubler Helper: Bala Aldrich MD Hemoglobin (Bld) [Mass/Vol] 12.2 g/dL Normal 11.9-15.1 [facility] Comment on above: Performed By: #### C P, CDP, LIP #### [facility] [address] [place], [place] [phone] Doubler Helper: Bala Aldrich MD Immature granulocytes/100 WBC (Bld) 0 % Normal 0 [facility] Comment on above: Performed By: #### C P, CDP, LIP #### [facility] [address] [place], [place] [id number] Doubler Helper: Bala Aldrich MD Lymphocytes (Bld) [#/Vol] 1.23 10*3/uL Normal 1.20-5.20 [facility] Comment on above: Performed By: #### C P, CDP, LIP #### [address] [place], [facility]83 Doubler Helper: Bala Aldrich MD Lymphocytes/100 WBC (Bld) 20 % Low 25-45 [facility] Comment on above: Performed By: #### C P, CDP, LIP #### [address] [place], [place] [id number] Doubler Helper: Bala Aldrich MD MCH (RBC) [Entitic mass] 29.6 pg Normal 25.2-33.5 [facility] Comment on above: Performed By: #### C P, CDP, LIP #### [address] [place], [place] [phone] Doubler Helper: Bala Aldrich MD MCHC (RBC) [Mass/Vol] 36.0 g/dL High 28.4-34.8 [facility] Comment on above: Performed By: #### C P, CDP, LIP #### [address] [place] [address] Doubler Helper: Bala Aldrich MD MCV (RBC) [Entitic vol] 82.3 fL Low 82.6-102.9 [facility] Comment on above: Performed By: #### C P, CDP, LIP #### [facility] [address] [place], [place] [phone] Doubler Helper: Bala Aldrich MD Monocytes (Bld) [#/Vol] 0.50 10*3/uL Normal 0.10-1.40 [facility] Comment on above: Performed By: #### C P, CDP, LIP #### [facility] [address] [place], [place] [phone] Doubler Helper: Bala Aldrich MD Monocytes/100 WBC (Bld) 8 % Normal 2-8 [facility] Comment on above: Performed By: #### C P, CDP, LIP #### [address] [place], [place] [address] Doubler Helper: Bala Aldrich MD Neutrophil (Seg) 71 % High 34-64 [facility] Comment on above: Performed By: #### C P, CDP, LIP #### [address] [place], [place] [phone] Doubler Helper: Bala Aldrich MD NRBC Automated 0.0 per 100 WBC Normal 0.0 [facility] Comment on above: Performed By: #### C P, CDP, LIP #### [facility] [address] [place], [facility]83 Doubler Helper: Bala Aldrich MD Platelet mean volume (Bld) [Entitic vol] 10.6 fL Normal 8.1-13.5 [facility] Comment on above: Performed By: #### C P, CDP, LIP #### [facility] [address] [place] [address] Doubler Helper: Bala Aldrich MD Platelets (Bld) [#/Vol] 218 10*3/uL Normal 138-453 [facility] Comment on above: Performed By: #### C P, CDP, LIP #### [facility] [address] [place], [place] [phone] Doubler Helper: Bala Aldrich MD RBC (Bld) [#/Vol] 4.12 10*6/uL Normal 3.95-5.11 [facility] Comment on above: Performed By: #### C P, CDP, LIP #### [facility] [address] [place], [place] [phone] Doubler Helper: Bala Aldrich MD WBC (Bld) [#/Vol] 6.3 10*3/uL Normal 4.5-13.5 [facility] Comment on above: Performed By: #### C P, CDP, LIP #### [facility] [address] [place] [address] Doubler Helper: Bala Aldrich MD Comp Metabolic Profon 2022 Albumin [Mass/Vol] 3.6 g/dL Normal 3.5-5.2 [facility] Comment on above: Performed By: #### C P, CDP, LIP #### [facility] [address] [place], [place] [phone] Doubler Helper: Bala Aldrich MD Albumin/Glob Ratio 1.2 Normal 1.0-2.5 [facility] Comment on above: Performed By: #### C P, CDP, LIP #### [facility] [address] [place] [address] Doubler Helper: Bala Aldrich MD Alkaline Phos 66 U/L Normal 35-104 [facility] Comment on above: Performed By: #### C P, CDP, LIP #### [facility] [address] [place] [address] Doubler Helper: Bala Aldrich MD ALT [Catalytic activity/Vol] 14 U/L Normal 5-33 [facility] Comment on above: Performed By: #### C P, CDP, LIP #### [facility] [address] [place], [place] 3618983 Doubler Helper: Bala Aldrich MD Anion gap [Moles/Vol] 10 mmol/L Normal 9-17 [facility] Comment on above: Performed By: #### C P, CDP, LIP #### [facility] [address] [place], [place] 0493883 Doubler Helper: Bala Aldrich MD AST [Catalytic activity/Vol] 15 U/L Normal <32 [facility] Comment on above: Performed By: #### C P, CDP, LIP #### [facility] [address] [place], [place] [phone] Doubler Helper: Bala Aldrich MD Bilirubin [Mass/Vol] 0.3 mg/dL Normal 0.3-1.2 [facility] Comment on above: Performed By: #### C P, CDP, LIP #### [facility] [address] [place], [place] [phone] Doubler Helper: Bala Aldrich MD BUN/CRE Ratio 5 Low 9-20 [facility] Comment on above: Performed By: #### C P, CDP, LIP #### [facility] [address] [place], [place] 1348983 Doubler Helper: Bala Aldrich MD Calcium [Mass/Vol] 9.2 mg/dL Normal 8.6-10.4 [facility] Comment on above: Performed By: #### C P, CDP, LIP #### [facility] [address] [place] [address] Doubler Helper: Bala Aldrich MD Chloride [Moles/Vol] 103 mmol/L Normal 98-107 [facility] Comment on above: Performed By: #### C P, CDP, LIP #### [facility] [address] [place], [place] [phone] Doubler Helper: Bala Aldrich MD CO2 [Moles/Vol] 20 mmol/L Normal 20-31 [facility] Comment on above: Performed By: #### C P, CDP, LIP #### [facility] [address] [place] [address] Doubler Helper: Bala Aldrich MD Creatinine [Mass/Vol] 0.40 mg/dL Low 0.50-0.90 [facility] Comment on above: Performed By: #### C P, CDP, LIP #### [facility] [address] [place] [address] Doubler Helper: Bala Aldrich MD GFR/1.73 sq M.predicted among non-blacks MDRD (S/P/Bld) [Vol rate/Area] mL/min/{1.73_m2} Normal >60 [facility] Comment on above: Result Comment: These results are not intended for use in patients <18 years of age. eGFR results are calculated without a race factor using the 2020 CKD-EPI equation. Careful clinical correlation is recommended, particularly when comparing to results calculated using previous equations. The CKD-EPI equation is less accurate in patients with extremes of muscle mass, extra-renal metabolism of creatine, excessive creatine ingestion, or following therapy that affects renal tubular secretion. Performed By: #### C P, CDP, LIP #### [facility] [address] [place] [address] Doubler Helper: Bala Aldrich MD Glucose [Mass/Vol] 77 mg/dL Normal 70-99 [facility] Comment on above: Performed By: #### C P, CDP, LIP #### [facility] [address] [place] [address] Doubler Helper: Bala Aldrich MD Potassium [Moles/Vol] 3.2 mmol/L Low 3.7-5.3 [facility] Comment on above: Performed By: #### C P, CDP, LIP #### [facility] [address] [place] [phone] Doubler Helper: Bala Aldrich MD Protein [Mass/Vol] 6.6 g/dL Normal 6.4-8.3 [facility] Comment on above: Performed By: #### C P, CDP, LIP #### [facility] [address] [place], [place] 2365383 Doubler Helper: Bala Aldrich MD Sodium [Moles/Vol] 133 mmol/L Low 135-144 [facility] Comment on above: Performed By: #### C P, CDP, LIP #### [facility] [address] [place], [place] [phone] Doubler Helper: Bala Aldrich MD Urea nitrogen [Mass/Vol] 2 mg/dL Low 6-20 [facility] Comment on above: Performed By: #### C P, CDP, LIP #### [facility] [address] [place], [place] 2922383 Doubler Helper: Bala Aldrich MD Lipaseon 11-04-2022 Lipase [Catalytic activity/Vol] 39 U/L Normal 13-60 [facility] Comment on above: Performed By: #### C P, CDP, LIP #### [facility] [address] [place], [place] [phone] Doubler Helper: Bala Aldrich MD UA w/Reflex Cultureon 2022 Bilirubin, SemiQt,Ur Negative Normal NEG [facility] Comment on above: Performed By: #### U TJ UMSKYLERO #### [facility] [address] [place], [place] [phone] Doubler Helper: Bala Aldrich MD Blood, Urine Negative Normal NEG [facility] Comment on above: Performed By: #### U AX UMICAO #### [facility] [address] [place], [place] [phone] Doubler Helper: Bala Aldrich MD Clarity (U) Cloudy Abnormal CLEAR [facility] Comment on above: Performed By: #### U AX, UMICAO #### [facility] [address] [place], [place] [phone] Doubler Helper: Bala Aldrich MD Color (U) Yellow Normal YEL [facility] Comment on above: Performed By: #### U AX, UMICAO #### [facility] [address] [place], [place] 2329083 Doubler Helper: Bala Aldrich MD Glucose Ql (U) Negative Normal NEG [facility] in Hospital Comment on above: Performed By: #### U AX, UMICAO #### [facility] [address] [place] [address] Dr[place], [place] [phone] Doubler Helper: Bala Aldrich MD Ketones Ql (U) 4+ Abnormal NEG [facility] in [facility] Comment on above: Performed By: #### U AX, UMICAO #### [facility] [address] [place] [address] [place] [address] Doubler Helper: Bala Aldrich MD Leukocyte esterase Test strip Ql (U) MODERATE Abnormal NEG [facility] Comment on above: Performed By: #### U AX, UMICAO #### [facility] [address] [place] [address] Dr[place], [place] 1294083 Doubler Helper: Bala Aldrich MD Nitrite,Ur Positive Abnormal NEG [facility] Comment on above: Performed By: #### U AX, UMICAO #### [facility] [address] [place], [place] 7656783 Doubler Helper: Bala Aldrich MD PH,Ur 6.0 Normal 5.0-9.0 [facility] Comment on above: Performed By: #### U AX, UMICAO #### [facility] [address] [place], [place] [phone] Doubler Helper: Bala Aldrich MD Protein Ql (U) Negative Normal NEG [facility] in [facility] Comment on above: Performed By: #### U AX, UMICAO #### [facility] [address] [place] [address] Doubler Helper: Bala Aldrich MD Spec. [place],Ur 1.025 High 1.010-1.020 [facility] Comment on above: Performed By: #### U AX, UMICAO #### [facility] [address] [place] [address] Doubler Helper: Bala Aldrich MD Urobilinogen,Ur Normal Normal NORM [facility] Comment on above: Performed By: #### U AX, UMICAO #### [address] [place] [address] Doubler Helper: Bala Aldrich MD Urinalysis,Microon 3 Bacteria 3+ Abnormal [facility] Comment on above: Performed By: #### U AX, UMICAO #### [facility] [address] [place] [address] Dr[place], [place] [phone] Doubler Helper: Bala Aldrich MD Crystals LM Nom (Urine sed) 0 TO 2 Abnormal [facility] Comment on above: Result Comment: CALC IUM OXALATE Performed By: #### U AX, UMICAO #### [address] [place] [address] Doubler Helper: Bala Aldrich MD Epithelial cells LM Ql (Urine sed) 5 TO 10 Normal 0-25 [facility] Comment on above: Performed By: #### U AX, UMICAO #### [facility] [address] [place], [place] 4271683 Doubler Helper: Bala Aldrich MD Mucus Strands TRACE Abnormal [facility] Comment on above: Performed By: #### U AX, UMICAO #### [facility] [address] [place], [place] 4501483 Doubler Helper: Bala Aldrich MD Urine RBC's 0 TO 2 Normal 0-2 [facility] Comment on above: Performed By: #### U TJ UMICAO #### [facility] [address] [place], [place] 9541183 Doubler Helper: Bala Aldrich MD Urine WBC's 10 TO 20 Normal 0-5 [facility] Comment on above: Performed By: #### U ROSSY SPENCERO #### [facility] [address] [place] [address] Doubler Helper: Bala Aldrich MD XR CHEST PORTABLEon 11-05-19 XR CHEST PORTABLE EXAMINATION: ONE XRAY VIEW OF THE CHEST 11/04/2022 4:17 pm COMPARISON: None. HISTORY: ORDERING SYSTEM PROVIDED HISTORY: chest burning TECHNOLOGIST PROVIDED HISTORY: chest burning FINDINGS: The lungs are without acute focal process. There is no effusion or pneumothorax. The cardiomediastinal silhouette is without acute process. The osseous structures are without acute process. IMPRESSION: No acute process. Interpreted by: Violette Benitez MD Signed by: Violette Benitez MD 11/04/22 Final result Normal [facility] CBC with Diffon 10-30-2022 Abs. Basophil <0.03 Normal 0.00-0.20 [facility] Comment on above: Performed By: #### C P, PT, CDP ####[address] [place] [address] Lab Director: Bala Aldrich MD Abs.Imm.Granulocyte 0.03 k/uL Normal 0.00-0.30 [facility] Comment on above: Performed By: #### C P, PT, CDP ####[facility] , [place] 2275283 Lab Director: Bala Aldrich MD Abs.Neutrophil (Seg) 6.65 k/uL Normal 1.80-8.00 [facility] Comment on above: Performed By: #### C P, PT, CDP ####[address] [place] [address] Lab Director: Bala Aldrich MD Basophils/100 WBC (Bld) 0 % Normal 0-2 [facility] Comment on above: Performed By: #### C P, PT, CDP ####[address] , [place] 4334383 Lab Director: Bala Aldrich MD Eosinophils (Bld) [#/Vol] 0.06 10*3/uL Normal 0.00-0.44 [facility] Comment on above: Performed By: #### C P, PT, CDP ####[address] [place] [address] Lab Director: Bala Aldrich MD Eosinophils/100 WBC (Bld) 1 % Normal 1-4 [facility] Comment on above: Performed By: #### C P, PT, CDP ####[address] , [facility]83 Lab Director: Bala Aldrich MD Erythrocyte distribution width (RBC) [Ratio] 11.9 % Normal 11.8-14.4 [facility] Comment on above: Performed By: #### C P, PT, CDP ####[address] , [facility]83 Lab Director: Bala Aldrich MD Hematocrit (Bld) [Volume fraction] 35.9 % Low 36.3-47.1 [facility] Comment on above: Performed By: #### C P, PT, CDP ####[address] , [facility]83 Lab Director: Bala Aldrich MD Hemoglobin (Bld) [Mass/Vol] 12.6 g/dL Normal 11.9-15.1 [facility] Comment on above: Performed By: #### C P, PT, CDP ####[address] [place] [address] Lab Director: Bala Aldrich MD Immature granulocytes/100 WBC (Bld) 0 % Normal 0 [facility] Comment on above: Performed By: #### C P, PT, CDP ####[address] , [place] 3843783 Lab Director: Bala Aldrich MD Lymphocytes (Bld) [#/Vol] 2.00 10*3/uL Normal 1.20-5.20 [facility] Comment on above: Performed By: #### C P, PT, CDP ####[address] , [place] 6015583 Lab Director: Bala Aldrich MD Lymphocytes/100 WBC (Bld) 22 % Low 25-45 [facility] Comment on above: Performed By: #### C P, PT, CDP ####[address] , [place] 1499383 Lab Director: Bala Aldrich MD MCH (RBC) [Entitic mass] 29.6 pg Normal 25.2-33.5 [facility] Comment on above: Performed By: #### C P, PT, CDP ####[address] , [place] 1519083 Lab Director: Bala Aldrich MD MCHC (RBC) [Mass/Vol] 35.1 g/dL High 28.4-34.8 [facility] Comment on above: Performed By: #### C P, PT, CDP ####[address] [place] [address] Lab Director: Bala Aldrich MD MCV (RBC) [Entitic vol] 84.3 fL Normal 82.6-102.9 [facility] Comment on above: Performed By: #### C P, PT, CDP ####[address] , [place] 0821883 Lab Director: Bala Aldrich MD Monocytes (Bld) [#/Vol] 0.38 10*3/uL Normal 0.10-1.40 [facility] Comment on above: Performed By: #### C P, PT, CDP ####[address] [place] [address] Lab Director: Bala Aldrich MD Monocytes/100 WBC (Bld) 4 % Normal 2-8 [facility] Comment on above: Performed By: #### C P, PT, CDP ####[address] , [place] [address] Lab Director: Bala Aldrich MD Neutrophil (Seg) 73 % High 34-64 [facility] Comment on above: Performed By: #### C P, PT, CDP ####[address] , [place] 1859683 Lab Director: Bala Aldrich MD NRBC Automated 0.0 per 100 WBC Normal 0.0 [facility] Comment on above: Performed By: #### C P, PT, CDP ####[address] [place] [address] Lab Director: Bala Aldrich MD Platelet mean volume (Bld) [Entitic vol] 11.0 fL Normal 8.1-13.5 [facility] Comment on above: Performed By: #### C P, PT, CDP ####[address] , [facility]83[facility])[phone] Director: Bala Aldrich MD Platelets (Bld) [#/Vol] 249 10*3/uL Normal 138-453 [facility] Comment on above: Performed By: #### C P, PT, CDP ####[address] , [place] 3178683 Lab Director: Bala Aldrich MD RBC (Bld) [#/Vol] 4.26 10*6/uL Normal 3.95-5.11 [facility] Comment on above: Performed By: #### C P, PT, CDP ####[address] , [place] 9681683 Lab Director: Bala Aldrich MD WBC (Bld) [#/Vol] 9.1 10*3/uL Normal 4.5-13.5 [facility] Comment on above: Performed By: #### C P, PT, CDP ####[address] [place] [address] Lab Director: Bala Aldrich MD Comp Metabolic Profon 2022 Albumin [Mass/Vol] 3.9 g/dL Normal 3.5-5.2 [facility] Comment on above: Performed By: #### C P, PT, CDP ####[address] [place] [address] Lab Director: Bala Aldrich MD Albumin/Glob Ratio 1.3 Normal 1.0-2.5 [facility] Comment on above: Performed By: #### C P, PT, CDP ####[address] , [place] 1259983 Lab Director: Bala Aldrich MD Alkaline Phos 65 U/L Normal 35-104 [facility] Comment on above: Performed By: #### C P, PT, CDP ####[address] , [place] [phone] Director: Bala Aldrich MD ALT [Catalytic activity/Vol] 21 U/L Normal 5-33 [facility] Comment on above: Performed By: #### C P, PT, CDP ####[address] , [place] 9291083 Lab Director: Bala Aldrich MD Anion gap [Moles/Vol] 12 mmol/L Normal 9-17 [facility] Comment on above: Performed By: #### C P, PT, CDP ####[address] , [place] 9807883 Lab Director: Bala Aldrich MD AST [Catalytic activity/Vol] 13 U/L Normal <32 [facility] Comment on above: Performed By: #### C P, PT, CDP ####[address] , [place] 0840683 Lab Director: Bala Aldrich MD Bilirubin [Mass/Vol] 0.4 mg/dL Normal 0.3-1.2 [facility] Comment on above: Performed By: #### C P, PT, CDP ####[address] , [place] 2724383 Lab Director: Bala Aldrich MD BUN/CRE Ratio 10 Normal 9-20 [facility] Comment on above: Performed By: #### C P, PT, CDP ####[address] , [place] 1047383 Lab Director: Bala Aldrich MD Calcium [Mass/Vol] 9.6 mg/dL Normal 8.6-10.4 [facility] Comment on above: Performed By: #### C P, PT, CDP ####[address] , [place] 8149983 Lab Director: Bala Aldrich MD Chloride [Moles/Vol] 102 mmol/L Normal 98-107 [facility] Comment on above: Performed By: #### C P, PT, CDP ####[address] , [place] 1268783 Lab Director: Bala Aldrich MD CO2 [Moles/Vol] 22 mmol/L Normal 20-31 [facility] Comment on above: Performed By: #### C P, PT, CDP ####[address] , [place] 0181183 Lab Director: Bala Aldrich MD Creatinine [Mass/Vol] 0.41 mg/dL Low 0.50-0.90 [facility] Comment on above: Performed By: #### C P, PT, CDP ####[address] [place] [address] Lab Director: Bala Aldrich MD GFR/1.73 sq M.predicted among non-blacks MDRD (S/P/Bld) [Vol rate/Area] mL/min/{1.73_m2} Normal >60 [facility] Comment on above: Result Comment: These results are not intended for use in patients <18 years of age. eGFR results are calculated without a race factor using the 2020 CKD-EPI equation. Careful clinical correlation is recommended, particularly when comparing to results calculated using previous equations. The CKD-EPI equation is less accurate in patients with extremes of muscle mass, extra-renal metabolism of creatine, excessive creatine ingestion, or following therapy that affects renal tubular secretion. Performed By: #### C P, PT, CDP ####[address] , [place] 9427883 Lab Director: Bala Aldrich MD Glucose [Mass/Vol] 82 mg/dL Normal 70-99 [facility] Comment on above: Performed By: #### C P, PT, CDP ####[address] , [place] 0763683 Lab Director: Bala Aldrich MD Potassium [Moles/Vol] 3.7 mmol/L Normal 3.7-5.3 [facility] Comment on above: Performed By: #### C P, PT, CDP ####[address] , [place] 4755283 Lab Director: Bala Aldrich MD Protein [Mass/Vol] 6.9 g/dL Normal 6.4-8.3 [facility] Comment on above: Performed By: #### C P, PT, CDP ####[address] [place] [address] Lab Director: Bala Aldrich MD Sodium [Moles/Vol] 136 mmol/L Normal 135-144 [facility] Comment on above: Performed By: #### C P, PT, CDP ####[address] [place] [address] lab Director: Bala Aldrich MD Urea nitrogen [Mass/Vol] 4 mg/dL Low 6-20 [facility] Comment on above: Performed By: #### C P, PT, CDP ####[address] [place] [address] lab Director: Bala Adlrich MD HCG, Quanton 10-30-2022 HCG, Quant [id number] mIU/mL High <5 [facility] Comment on above: Result Comment: Non-preg premeno <=5 Postmeno <=8 Male <=3 If HCG results do not concur with clinical observations, additional testing to confirm results is recommended. Performed By: #### B HCG ####[address] , [place] 9736483 lab Director: Bala Aldrich MD PTon 10-30-2022 INR Coag (PPP) [Relative time] 1.0 {INR} Normal [facility] Comment on above: Result Comment: Therapeutic Range: Moderate Anticoagulant Intensity: INR = 2.0-3.0 High Anticoagulant Intensity: INR = 2.5-3.5 Performed By: #### C P, PT, CDP ####[address] , [place] [id number] lab Director: Bala Aldrich MD PT Coag (PPP) [Time] 12.9 s Normal 11.9-14.8 [facility] Comment on above: Performed By: #### C P, PT, CDP ####[address] [place] [address] lab Director: Bala Aldrich MD Type + Screenon 10-30-2022 Type + Screen Sample Expiration 11/02/2022,2359 Arm Band Number [id number] ABO/Rh(D) O POSITIVE Antibody Screen NEGATIVE Normal [facility] Comment on above: Performed By: #### T YS ####[facility] [place] [address] lab Director: Bala Aldrich MD DUP ABD PEL RETRO SCROT L IMITEDon 10-30-2022 US DUP ABD PEL RETRO SCROT LIMITED EXAMINATION: FIRST TRIMESTER OBSTETRIC ULTRASOUND; ULTRASOUND OF THE OVARIES WITH COLOR DOPPLER FLOW EVALUATION 10/30/2022 TECHNIQUE: Transabdominal and transvaginal first trimester obstetric pelvic duplex ultrasound was performed with real-time imaging, color flow Doppler imaging, and spectral analysis.; Duplex ultrasound using B-mode/rolon scaled imaging, Doppler spectral analysis and color flow Doppler was obtained of the ovaries. COMPARISON: None HISTORY: ORDERING SYSTEM PROVIDED HISTORY: 12ks preg vaginal spotting TECHNOLOGIST PROVIDED HISTORY: 12ks preg vaginal spotting G1. Spotting. FINDINGS: Uterus: Uterus measures 12.4 x 9.5 x 1.1 cm. There is a twin intrauterine . Gestational Sac(s): On the provided images, there appears to be a single gestational sac with thin intertwin membrane, suggesting mono chorionic-diamniotic twin . No evidence of subchorionic hematoma. Twin A: Yolk Sac: Not seen [place] Rump Length: 5.3 cm Heart Rate: 156 beats per minute Twin B: Yolk sac: Not seen [place]-rump length: 5.6 cm heart rate: 158 beats per minute Right ovary: 3.3 x 1.5 x 1.3 cm, unremarkable appearance. Duplex arterial and venous Doppler waveforms are demonstrated. Left ovary: 3.2 x 2.0 x 1.9 cm, unremarkable appearance. Duplex arterial and venous Doppler waveforms are demonstrated. Free fluid: None seen. Measurements: Estimated gestational age by current ultrasound: 12 weeks 0 days Estimated gestational age by LMP/prior ultrasound: 11 weeks 6 days Estimated Due Date: 05/15/2023 IMPRESSION: 1. Live intrauterine twin with estimated gestational age of 12 weeks 0 days and estimated due date of 05/15/2023. This is suspected to be a monochorionic-diamnio tic twin based on the provided images. If available, correlation with any earlier 1st trimester ultrasound may be of use. 2. Unremarkable sonographic appearance of the ovaries. No evidence of ovarian torsion. Interpreted by: Madyson Gabriel DO Signed by: Madyson Gabriel DO 10/30/22 Final result Normal [facility] US OB LESS THAN 14 WEEKS SIN GLE OR FIRST GESTATIONon 10-30-2022 US OB LESS THAN 14 WEEKS SINGLE OR FIRST GESTATION EXAMINATION: FIRST TRIMESTER OBSTETRIC ULTRASOUND; ULTRASOUND OF THE OVARIES WITH COLOR DOPPLER FLOW EVALUATION 10/30/2022 TECHNIQUE: Transabdominal and transvaginal first trimester obstetric pelvic duplex ultrasound was performed with real-time imaging, color flow Doppler imaging, and spectral analysis.; Duplex ultrasound using B-mode/rolon scaled imaging, Doppler spectral analysis and color flow Doppler was obtained of the ovaries. COMPARISON: None HISTORY: ORDERING SYSTEM PROVIDED HISTORY: 12ks preg vaginal spotting TECHNOLOGIST PROVIDED HISTORY: 12ks preg vaginal spotting G1. Spotting. FINDINGS: Uterus: Uterus measures 12.4 x 9.5 x 1.1 cm. There is a twin intrauterine . Gestational Sac(s): On the provided images, there appears to be a single gestational sac with thin intertwin membrane, suggesting mono chorionic-diamniotic twin . No evidence of subchorionic hematoma. Twin A: Yolk Sac: Not seen [place] Rump Length: 5.3 cm Heart Rate: 156 beats per minute Twin B: Yolk sac: Not seen [place]-rump length: 5.6 cm heart rate: 158 beats per minute Right ovary: 3.3 x 1.5 x 1.3 cm, unremarkable appearance. Duplex arterial and venous Doppler waveforms are demonstrated. Left ovary: 3.2 x 2.0 x 1.9 cm, unremarkable appearance. Duplex arterial and venous Doppler waveforms are demonstrated. Free fluid: None seen. Measurements: Estimated gestational age by current ultrasound: 12 weeks 0 days Estimated gestational age by LMP/prior ultrasound: 11 weeks 6 days Estimated Due Date: 05/15/2023 IMPRESSION: 1. Live intrauterine twin with estimated gestational age of 12 weeks 0 days and estimated due date of 05/15/2023. This is suspected to be a monochorionic-diamnio tic twin based on the provided images. If available, correlation with any earlier 1st trimester ultrasound may be of use. 2. Unremarkable sonographic appearance of the ovaries. No evidence of ovarian torsion. Interpreted by: Madyson Gabriel DO Signed by: Madyson Gabriel DO 10/30/22 Final result Normal [facility] Urinalysis, Routineon 2022 Bilirubin, SemiQt,Ur Negative Normal NEG [facility] Comment on above: Performed By: #### U A, UMICAO #### [facility] [address] [place] [address] Doubler Helper: Bala Aldrich MD Blood, Urine Negative Normal NEG [facility] Comment on above: Performed By: #### U A, UMICAO #### [facility] [address] [place] [address] Doubler Helper: Bala Aldrich MD Clarity (U) Cloudy Abnormal CLEAR [facility] Comment on above: Performed By: #### U A, UMICAO #### [facility] [address] [place] [address] [place] [address] Doubler Helper: Bala Aldrich MD Color (U) Yellow Normal YEL [facility] Comment on above: Performed By: #### U A, UMICAO #### [facility] [address] [place] [address] [place], [place] [id number] Doubler Helper: Bala Aldrich MD Glucose Ql (U) Negative Normal NEG [facility] Comment on above: Performed By: #### U A, UMICAO #### [facility] [address] [place] [address] [place] [address] Doubler Helper: Bala Aldrich MD Ketones Ql (U) 1+ Abnormal NEG [facility] Comment on above: Performed By: #### U A, UMICAO #### [facility] [address] [place] [address] [place] [address] Doubler Helper: Bala Aldrich MD Leukocyte esterase Test strip Ql (U) LARGE Abnormal NEG [facility] Comment on above: Performed By: #### U A, UMICAO #### [facility] [address] [place], [place] [id number] Doubler Helper: Bala Aldrich MD Nitrite,Ur Negative Normal NEG [facility] Comment on above: Performed By: #### U A, UMICAO #### [facility] [address] [place] [address] [place], [place] [phone] Doubler Helper: Bala Aldrich MD PH,Ur 6.5 Normal 5.0-9.0 [facility] Comment on above: Performed By: #### U A, UMICAO #### [facility] [address] [place] [address] [place] [address] Doubler Helper: Bala Aldrich MD Protein Ql (U) Negative Normal NEG [facility] Comment on above: Performed By: #### U A, UMICAO #### [facility] [address] [place] [address] [place] [address] Doubler Helper: Bala Aldrich MD Spec. [place],Ur 1.025 High 1.010-1.020 [facility] Comment on above: Performed By: #### U A, UMICAO #### [address] [place], [place] [phone] Doubler Helper: Bala Aldrich MD Urobilinogen,Ur ELEVATED Abnormal NORM [facility] Comment on above: Performed By: #### U A, UMICAO #### [facility] [address] [place] [address] [place] [address] Doubler Helper: Bala Aldrich MD Urinalysis,Microon 3 Bacteria 4+ Abnormal NONE [facility] Comment on above: Performed By: #### U A, UMICAO #### [facility] [address] [place] [address] Dr[place], [place] [phone] Doubler Helper: Bala Aldrich MD Epithelial cells LM Ql (Urine sed) 5 TO 10 Normal 0-25 [facility] Comment on above: Performed By: #### U A, UMICAO #### [facility] [address] [place] [address] Dr[place], [place] [phone] Doubler Helper: Bala Aldrich MD Mucus Strands 3+ Abnormal NONE [facility] Comment on above: Performed By: #### U A, UMICAO #### [facility] [address] [place], [place] [phone] Doubler Helper: Bala Aldrich MD Urine RBC's 2 TO 5 Normal 0-2 [facility] Comment on above: Performed By: #### U A, UMICAO #### [facility] [address] [place], [place] [phone] Doubler Helper: Bala Aldrich MD Urine WBC's 20 TO 50 Normal 0-5 [facility] Comment on above: Performed By: #### U A, UMICAO #### [facility] [address] [place], [place] [phone] Doubler Helper: Bala Aldrich MD CHLAMYDIA/GONOCOCCUS BI ( AB/URINE/PAPon 08-20-2022 Chlamydia trachomatis, BI Negative Normal Negative [facility] Comment on above: Performed By: #### C T/NGNA #### [facility] [address] [place] [address] Dr. Keo Ivory Neisseria gonorrhoeae, BI Negative Normal Negative [facility] Comment on above: Performed By: #### C T/NGNA #### [facility] [address] [place] [address] Dr. Keo Ivory CULTURE URINEon 08-20-2022 CULTURE URINE Isolate 1 Escherichia coli >100,000 cfu/mL of ORGANISM 1 Escherichia coli ANTIBIOTIC M.I.C RX STATUS Ampicillin >=32 R F Ampicillin/Sulbactam 16 I F Piperacillin/Tazobact am <=4 S F Cefazolin <=4 S F Ceftazidime <=1 S F Ceftriaxone <=1 S F Ertapenem <=0.5 S F Imipenem <=0.25 S F Amikacin <=2 S F Gentamicin <=1 S F Tobramycin <=1 S F Ciprofloxacin <=0.25 S F Levofloxacin <=0.12 S F Nitrofurantoin <=16 S F Trimethoprim/Sulfamet hoxazole >=320 R F Normal [facility] Comment on above: Performed By: #### U RCX #### [facility] [address] [address] [address] Keo Ivory ER URINE PROFILEon 3 Bilirubin Ql (U) Negative Normal NEGATIVE [facility] Comment on above: Performed By: #### U MICRO, PREGU, ERUR #### [facility] [address] [address] [address] Keo Ivory Clarity (U) SL CLOUDY Abnormal CLEAR [facility] Comment on above: Performed By: #### U MICRO, PREGU, ERUR #### [facility] [address] [place] [address] Dr. Keo Ivory Color (U) LT. YELLOW Normal YELLOW [facility] Comment on above: Performed By: #### U MICRO, PREGU, ERUR #### [facility] [address] [place] [address] Dr. Keo CEDENO A micrscopic examination will be performed if indicated. Normal [facility] Comment on above: Performed By: #### U MICRO, PREGU, ERUR #### [facility] [address] [address] [address] Keo Ivory Glucose Ql (U) Negative Normal NEGATIVE [facility] Comment on above: Performed By: #### U MICRO, PREGU, ERUR #### [facility] [address] [address] [address] Keo Ivory Hemoglobin Ql (U) TRACE-INTACT Abnormal NEGATIVE [facility] Comment on above: Performed By: #### U MICRO, PREGU, ERUR #### [facility] [address] [place] [address] Dr. Keo Ivory Ketones Ql (U) Negative Normal NEGATIVE [facility] Comment on above: Performed By: #### U MICRO, PREGU, ERUR #### [facility] [address] [place] [address] Dr. Keo Ivory LEUKOCYTES Negative Normal NEGATIVE [facility] Comment on above: Performed By: #### U MICRO, PREGU, ERUR #### [facility] [address] [address] [address] Keo Ivory Nitrite Ql (U) Positive Abnormal NEGATIVE [facility] Comment on above: Performed By: #### U MICRO, PREGU, ERUR #### [facility] [address] [address] [address] Keo Ivory pH (U) 6.0 [pH] Normal 5-9 [facility] Comment on above: Performed By: #### U MICRO, PREGU, ERUR #### [facility] [address] [address] [address] Keo Ivory SPEC GRAVITY 1.020 Normal 1.005-<=1.025 [facility] Comment on above: Performed By: #### U MICRO, PREGU, ERUR #### [facility] [address] [address] [address] Keo Ivory UA PROTEIN Negative Normal NEGATIVE/ TRACE [facility] Comment on above: Performed By: #### U MICRO, PREGU, ERUR #### [facility] [address] [address] [address] Keo Ivory UR MICRO IND INDICATED Normal [facility] Comment on above: Performed By: #### U MICRO, PREGU, ERUR #### [facility] [address] [address] [address] Keo Ivory Urobilinogen Qn (U) 0.2 {Krishna'U}/dL Normal 0.2 - 1. 0 [facility] Comment on above: Performed By: #### U MICRO, PREGU, ERUR #### [facility] [address] [address] [address] Keo Ivory URon 08-17-2022 , QUAL Negative Normal NEGATIVE [facility] Comment on above: Performed By: #### U MICRO, PREGU, ERUR #### [facility] [address] [address] [address] Keo Ivory URINE MICROSCOPIC ONLYon BACTERIA LARGE Abnormal NONE SEEN [facility] Comment on above: Performed By: #### U MICRO, PREGU, ERUR #### [facility] [address] [place] [address] Dr. Keo Ivory Bacteria identified Cx Nom (U) INDICATED Normal [facility] Comment on above: Performed By: #### U MICRO, PREGU, ERUR #### [facility] [address] [place] [address] Dr. Keo Ivory CAST NONE SEEN Normal NONE SEEN [facility] Comment on above: Performed By: #### U MICRO, PREGU, ERUR #### [facility] [address] [address] [address] Koe Ivory Crystals LM Nom (Urine sed) NONE SEEN Normal NONE SEEN [facility] Comment on above: Performed By: #### U MICRO, PREGU, ERUR #### [facility] [address] [place] [address] Dr. Keo Ivory Epithelial cells LM Ql (Urine sed) FEW Abnormal NONE SEEN /RARE [facility] Comment on above: Performed By: #### U MICRO, PREGU, ERUR #### [facility] [address] [place] [address] Dr. Keo Ivory MUCOUS NONE SEEN Normal NONE SEEN [facility] Comment on above: Performed By: #### U MICRO, PREGU, ERUR #### [facility] [address] [place] [address] Dr. Keo Ivory RBC NONE SEEN Abnormal 0-2 [facility] Comment on above: Performed By: #### U MICRO, PREGU, ERUR #### [facility] [address] [place] [address] Dr. Keo Ivory WBC 5-10 Abnormal NONE SEEN [facility] Comment on above: Performed By: #### U MICRO, PREGU, ERUR #### [facility] [address] [place] [address] Dr. Keo Ivory SARS-CoV-2 (COVID-19) RNA NA A+probe Ql (Resp)on 11-14-2021 SARS-CoV-2 (COVID-19) RNA BI+probe Ql (Unsp spec) Negative [employer] Other PREG QUANT HCGon 10-30-2021 HCG QUANT <1 Normal [facility] Comment on above: Performed By: #### P REGQNT #### [facility] [address] [address] [address] Keo Ivory HCG RANGE SEE BELOW Normal [facility] Comment on above: Result Comment: 5-50 0-1 WEEK 40-300 1-2 WEEKS 100-1,000 2-3 WEEKS 500-6,000 3-4 WEEKS 5,000-200,000 1-2 MONTHS 10,000-100,000 2-3 MONTHS 3,000-50,000 2ND TRIMESTER 1,000-50,000 3RD TRIMESTER Performed By: #### P REGQNT #### [facility] [address] [address] [address] Keo Ivory Vital Signs Date Time Vital Sign Value Performing Clinician Facility 11-14-2021 17:00-0400 Body height 165.1 cm Amaya Luu Other [employer] Other 11-14-2021 17:00-0400 Body mass index (BMI) [Ratio] 29.95 kg/m2 Amaya Luu Other [facility] Other 11-14-2021 17:00-0400 Body temperature 99 [degF] Amaya Luu Other [facility] Other 11-14-2021 17:00-0400 Body weight 81.65 kg Amaya Luu Other [facility] Other 11-14-2021 17:00-0400 Respiratory rate 16 /min Amaya Luu Other [facility] Other 11-14-2021 17:00-0400 SaO2% (BldA) [Mass fraction] 97 % Amaya Luu Other [facility] [employer] Other Encounters Encounter Date Encounter Type Care Provider Facility Start: 12-10-2023 End: 12-10-2023 ambulatory ZHANE NORWOOD Not Available Start: 12-06-2023 End: 12-06-2023 ambulatory [facility] Start: 11-27-2023 End: 11-27-2023 ambulatory NO PCP NO PCP [facility] Start: 11-19-2023 End: 11-19-2023 ambulatory [facility] Start: 11-17-2023 End: 11-17-2023 ambulatory [facility] Start: 10-21-2023 End: 10-22-2023 ambulatory DEVYN [facility] Start: 10-17-2023 End: 10-17-2023 ambulatory [facility] Start: 10-10-2023 End: 10-10-2023 ambulatory [facility] Start: 09-18-2023 End: 09-18-2023 Emergency department patient visit NO PCP NO PCP [facility] Start: 09-12-2023 End: 09-12-2023 ambulatory [facility] Start: 09-04-2023 End: 09-04-2023 ambulatory [facility] Start: 08-30-2023 End: 08-31-[address] [facility] Start: 08-29-2023 End: 08-30-[address] [facility] Start: 08-29-2023 End: 08-29-[address] [facility] Start: 08-29-2023 End: 08-29-2023 ambulatory [facility] Start: 08-28-2023 End: 08-29-2023 ambulatory HUA VELAZQUEZ [facility] Start: 08-28-2023 End: 08-28-2023 ambulatory AMAYA CRUZ [facility] Start: 08-23-2023 End: 08-23-2023 ambulatory NO PCP NO PCP [facility] Start: 08-22-2023 End: 08-22-2023 Emergency department patient visit NO PCP NO PCP [facility] Start: 07-30-2023 End: 07-31-2023 Emergency department patient visit RANDAL AYALA [facility] Start: 07-30-2023 End: 07-31-2023 Emergency department patient visit RANDAL Huff LUCY [facility] Start: 12-03-2022 End: 12-04-2022 Emergency department patient visit MARILIN RODRIGEZ [facility] Start: 11-04-2022 End: 11-04-2022 Emergency department patient visit HAYLIE FERMIN [facility] Start: 10-30-2022 End: 10-30-2022 Emergency department patient visit FELICIANO Cally BRANDT [facility] Start: 09-13-[address] DOCTOR HOLT Facility :[facility] Start: 08-17-2022 End: 08-17-[address] DOCTOR HOLT Facility:[facility] Start: 11-14-2021 End: 11-14-2021 ambulatory Amaya Luu Other [employer] Other Start: 11-14-2021 Office outpatient ne w 30 minutes Amaya Luu [facility] Start: 10-30-2021 End: 10-31-[address] DOCTOR HOLT Facility:[facility] Payers Date Payer Category Payer Medicaid [id number] 2002 Unknown [id number] 2.16.84 0.1.744645.3.579.2.593 2002 Unknown [id number] 2.16.84 0.1.997444.3.579.2.593 2002 Unknown [id number] 2.16.84 0.1.106913.3.579.2.593 2002 Unknown [id number] 2.16.8 40.1.572283.3.579.2.173 2002 Unknown [id number] 2.16.8 40.1.600391.3.579.2. 2002 Unknown [id number] 2.16.8 40.1.794587.3.579.2. 2002 Unknown [id number] 2.16.8 40.1.728102.3.579.2.1285 2002 Unknown [id number] 2.16.8 40.1.411730.3.579.2.1285 2002 Unknown [id number] 2.16.8 40.1.404142.3.579.2.1285 2002 Unknown [id number] 2.16.8 40.1.907636.3.579.2.1285 2002 Unknown [id number] 2.16.8 40.1.508554.3.579.2.1285 2002 Unknown [id number] 2.16.8 40.1.744666.3.579.2.1285 2002 Unknown [id number] 2.16.8 40.1.673475.3.579.2.1285 2002 Unknown [id number] 2.16.8 40.1.207993.3.579.2.1285 2002 Unknown [id number] 2.16.8 40.1.587822.3.579.2.1285 2002 Unknown [id number] 2.16.8 40.1.580686.3.579.2.1285 2002 Unknown [id number] 2.16.8 40.1.617493.3.579.2.1285 2002 Unknown [id number] 2.16.8 40.1.341380.3.579.2.1285 2002 Unknown [id number] 2.16.8 40.1.419442.3.579.2.1285 2002 Unknown [id number] 2.16.8 40.1.709399.3.579.2.1285 2002 Unknown [id number] 2.16.8 40.1.487193.3.579.2.1285 2002 Unknown [id number] 2.16.8 40.1.871310.3.579.2.1285 2002 Unknown [id number] 2.16.8 40.1.269860.3.579.2.1285 2002 Unknown [id number] 2.16.8 40.1.358405.3.579.2.1285 2002 Unknown [id number] 2.16.8 40.1.145899.3.579.2.1285 2002 Unknown [id number] 2.16.8 40.1.544373.3.579.2.1285 2002 Unknown [id number] 2.16.8 40.1.903499.3.579.2.1285 2002 Unknown [id number] 2.16.8 40.1.932093.3.579.2.1285 2002 Unknown [id number] 2.16.8 40.1.534260.3.579.2.1285 2002 Unknown [id number] 2.16.84 0.1.920953.3.579.2.1259 [address] [address] [id number] 2.16.840.1.621409.19 Social History Date Type Detail Facility Sex Assigned At [place] [employer] Other Evaluation note 11-14-2021 Note Date & Type Note Facility 11-14-2021 Evaluation note Encounter Date Diagnosis Assessment Notes Nov, Acute cough (ICD-10 - R05.1) Your Covid PCR test is negative. This means at this time you do not have COVID. Today test was performed in office. Results are currently negative. That does not mean that you will not develop COVID or do not currently have a low viral count of COVID. The rapid test works best if symptoms have been over 72 hours and the results can vary if you are asymptomatic There is a higher chance of false negative results to occur if testing is performed too soon. [employer] Other Summary Purpose Family History No Family History Records FoundNo Family History Records FoundNo Family History Records FoundNo Family History Records FoundNo Family History Records FoundNo Family History Records FoundNo Family History Records FoundNo Family History Records Found Advance Directives No Advanced Directives Records FoundNo Advanced Directives Records FoundNo Advanced Directives Records FoundNo Advanced Directives Records FoundNo Advanced Directives Records FoundNo Advanced Directives Records FoundNo Advanced Directives Records FoundNo Advanced Directives Records Found Additional Source Comments REASON FOR VISIT (unrecogniz ed section and content) BLACK PONTIAC, EXPOSED, DIAR KAYLENE, H/A, SORE THROAT, NAUSEA INFORMATION SOURCE (unrecogn ized section and content) DATE CREATED AUTHOR 09/13/2022 [facility] DATE CREATED AUTHOR AUTHOR'S ORGANIZ ATION 12/04/2022 [facility] DATE CREATED AUTHOR AUTHOR'S ORGANIZ ATION 09/02/2023 [facility] DATE CREATED AUTHOR AUTHOR'S ORGANIZ ATION 09/05/2023 [facility] DATE CREATED AUTHOR AUTHOR'S ORGANIZ ATION 09/20/2023 [facility] DATE CREATED AUTHOR AUTHOR'S ORGANIZ ATION 11/21/2023 [facility] DATE CREATED AUTHOR AUTHOR'S ORGANIZ ATION 12/09/2023 [facility] DATE CREATED AUTHOR AUTHOR'S ORGANIZ ATION 12/12/2023 [facility] FOR RECORDS PERTAINING TO PATIENTS WHO ARE OR HAVE BEEN ENROLLED IN A CHEMICAL DEPENDENCY/SUBSTANCEABUSE PROGRAM, SOME INFORMATION MAY BE OMITTED. This clinical summary was aggregated from multiple sources. Caution should be exercised in using it in the provision of clinical care. This summary normalizes information from multiple sources, and as a consequence, information in this document may materially change the coding, format and clinical context of patient data. In addition, data may be omitted in some cases. CLINICAL DECISIONS SHOULD BE BASED ON THE PRIMARY CLINICAL RECORDS. [facility] [employer] [facility]. provides no warranty or guarantee of the accuracy or completeness of information in this document.
[2023-12-12] MEDS: 0.9 % SODIUM CHLORIDE 1,000 ML 125 ML IV (16:22)
[2023-12-12] MEDS: OXYTOCIN/0.9 % SODIUM CHLORIDE 10 UNITS/500 ML PLAST..BAG 6 UNIT IV (16:22)
[2023-12-12 16:26] LABS: Hematocrit 31.3 % (36.0-48.0); Hemoglobin 10.5 g/dL (12.0-16.0); Mean Corpuscular HGB Conc 33.5 g/dL (29.9-35.2); Mean Corpuscular Hemoglobin 28.9 pg (26.7-34.0); Mean Corpuscular Volume 86.2 fL (81.0-99.0); Mean Platelet Volume 11.1 fL (9.5-13.5); Platelet Count 231 10^3/uL (150-450); Red Blood Count 3.63 10^6/uL (4.20-5.40); Red Cell Distribution Width 13.4 % (11.0-15.0); White Blood Count 11.5 10^3/uL (4.0-11.0)
[2023-12-12 16:46] LABS: Amphetamine Screen Urine NEGATIVE (NEGATIVE); Barbiturates Screen Urine NEGATIVE (NEGATIVE); Benzodiazepines Screen Urine NEGATIVE (NEGATIVE); Buprenorphine Screen Urine NEGATIVE (NEGATIVE); Cannabinoid Screen Urine NEGATIVE (NEGATIVE); Cocaine Screen Urine NEGATIVE (NEGATIVE); Methadone Screen Urine NEGATIVE (NEGATIVE); Methamphetamines Screen Urine NEGATIVE (NEGATIVE); Opiate Screen Urine NEGATIVE (NEGATIVE); Oxycodone Screen Urine NEGATIVE (NEGATIVE); Phencyclidine Screen Urine NEGATIVE (NEGATIVE); Tricyclic Antidepressant Urine NEGATIVE (NEGATIVE)
[2023-12-12] MEDS: CEFAZOLIN SODIUM/DEXTROSE,ISO 2 GM/50 ML PIGGYBACK IV (18:08)
--- NOTE | 2023-12-12 18:56 | P.ON_ITS ---
Brief Operative Note Date of procedure: 12/12/23 Pre-op diagnosis general: iup at 39wks, hand presentation Post-op diagnosis: same as pre-op Procedure: NAME OF PROCEDURE: [ section ] PROCEDURE: Patient was taken back to the Operating Room where she was given a spinal anesthesia with Duramorph without difficulty. She was prepped and draped in the normal sterile fashion. A Pfannenstiel skin incision was then made 2 cm above the symphysis pubis and carried down to underlying rectus fascia using a Bovie. The fascia was incised in the midline and extended laterally using Ruffin scissors. Two Gamal clamps were placed on the superior aspect of the fascia and dissected off the underlying rectus muscles. The same was performed on the inferior aspect as well. The muscles were then in the midline. Peritoneum was identified and entered bluntly. The peritoneum was then extended superiorly and inferiorly with good visualization of the bladder. The bladder blade was inserted. A low transverse incision was made on the patient's uterus and extended laterally digitally. The infant was then delivered atraumatically after the bladder blade was removed in the cephalic position. The cord was clamped and cut. Cord blood was obtained. The infant was handed off to awaiting team. The patient's placenta was spontaneously delivered. The uterus was then exteriorized. The uterus was cleared of all clots and debris. The bladder blade was reinserted. The patient's uterine incision was closed using #0 Vicryl in a running lock fashion. Excellent hemostasis was assured. The uterus was then returned to the patient's abdomen. The patient's abdomen was copiously irrigated using warm saline. Peritoneal gutters were cleared of all clots and debris. Again excellent hemostasis was assured. The patient's peritoneum was closed using 3-0 Vicryl in a running fashion. The patient's fascia was closed using #0 Vicryl in a running fashion. The patient's skin was closed using 4-0 Vicryl subcuticularly. The patient tolerated the procedure well. Sponge, lap, and needle counts were correct x2. The patient was taken to the Recovery Room in stable condition. Anesthesia: spinal Surgeon: Osmany Bella [employer] Operations Man: Becka Perez Estimated blood loss (mL): 575 Pathology: none sent Condition: stable Disposition: floor Urinary Catheter Management Urinary Catheter Management Urethral: Cath placed during this visit: no
--- NOTE | 2023-12-12 18:57 | PM.OBPRCCS ---
Procedure Pre-op/Post-op diagnoses: Pre-Op/Post-Op Diagnoses Operation Date: 12/12/23 18:15 <No data on this case meets the specified criteria> Procedure: Procedures Operation Date: 12/12/23 18:15 Actual Procedure Side Surgeon p Not Applicable Osmany Bella DO [employer] Analyst: Becka Perez Estimated blood loss (mL): 575 Disposition: PACU Anesthesia type: Spinal
[2023-12-12] MEDS: OXYTOCIN/0.9 % SODIUM CHLORIDE 20 UNITS/1,000 ML PLAST..BAG 125 UNIT IV (19:13)
[2023-12-12] MEDS: KETOROLAC TROMETHAMINE 30 MG/ML VIAL IVP (21:35)
[2023-12-12] MEDS: OXYCODONE HCL/ACETAMINOPHEN 5MG/325MG 1 TAB PO (23:20)
[2023-12-13 00:36] VITALS: BP 120/65; TEMP 36.8
[2023-12-13] MEDS: KETOROLAC TROMETHAMINE 30 MG/ML VIAL IVP ×4 (03:05→22:36)
[2023-12-13 03:07] VITALS: BP 111/64; TEMP 36.7
[2023-12-13 07:35] LABS: Basophils Percent Auto 0.1 % (0.2-2.0); Hematocrit 31.4 % (36.0-48.0); Hemoglobin 10.5 g/dL (12.0-16.0); Immature Granulocytes Abs Auto 0.11 10^3/uL (0.00-0.03); Immature Granulocytes Pct Auto 0.5 % (0.0-0.5); Lymphocytes Absolute Auto 1.8 10^3/uL (1.2-3.8); Lymphocytes Percent Auto 8.7 % (20.5-60.0); Mean Corpuscular HGB Conc 33.4 g/dL (29.9-35.2); Mean Corpuscular Volume 86.7 fL (81.0-99.0); Mean Platelet Volume 10.9 fL (9.5-13.5); Monocytes Absolute Auto 1.2 10^3/uL (0.3-0.8); Monocytes Percent Auto 5.9 % (1.7-12.0); Neutrophils Absolute Auto 17.2 10^3/uL (1.4-6.5); Neutrophils Percent Auto 84.8 % (43.0-75.0); Platelet Count 251 10^3/uL (150-450); Red Blood Count 3.62 10^6/uL (4.20-5.40); Red Cell Distribution Width 13.1 % (11.0-15.0); White Blood Count 20.3 10^3/uL (4.0-11.0)
--- NOTE | 2023-12-13 08:32 | PM.OBPN ---
OB - PN: Subj Subjective Patient comments: no complaints [place] status: doing well [place] feeding status: breast and bottle feeding Exam Constitutional Vital Signs, click to edit/add: Last Vital Signs Temp 98.1 F 12/13/23 03:07 Pulse 72 12/12/23 21:55 Resp 16 12/12/23 21:55 BP 111/64 12/13/23 03:07 Pulse Ox 94 L 12/12/23 21:46 O2 Del Method Room Air 12/13/23 03:10 Documenting provider has reviewed patient's vital signs: yes Common normals: no apparent distress, average body habitus, oriented x3, no limitations, healthy appearing, alert and well nourished HENMT Common normals: normocephalic Eye Common normals: EOMs intact bilaterally Neck & C-Spine Common normals: full ROM and no lymphadenopathy Lymph Lymphatic: no lymphadenopathy noted Chest Common normals: inspection of chest normal Respiratory Common normals: normal respiratory effort, no retractions, no use of accessory muscles and clear to auscultation bilaterally Auscultation: clear to auscultation bilaterally Cardio Common normals: regular rate and regular rhythm Rate: regular rate Rhythm: regular rhythm GI Common normals: Normal to inspection, nondistended, normoactive bowel sounds present Inspection: normal to inspection Auscultation: normoactive bowel sounds Palpation: soft Common normals: no CVA tenderness Back & Pelvis Common normals: no CVA tenderness Extremity Common normals: normal to inspection, full ROM, normal capillary refill, no joint enlargement, no clubbing, cyanosis or edema, no calf tenderness and no pedal edema Neuro Common normals: oriented x3 Sensorium/orientation: awake, alert, oriented to person, oriented to place and oriented to time Psych Common normals: mental status grossly normal, thought process normal, cooperative, affect normal, speech normal, activity/motor behavior normal, denies hallucinations, denies homicidal ideation and denies suicidal ideation Results Labs Labs: Short CBC 12/12/23 12/13/23 Range/Units 16:00 07:29 WBC 11.5 H 20.3 H (4.0-11.0) 10^3/uL Hgb 10.5 L 10.5 L (12.0-16.0) g/dL Hct 31.3 L 31.4 L (36.0-48.0) % Plt Count 231 251 (150-450) 10^3/uL Urinary Catheter Management Urinary Catheter Management Urethral: Cath placed during this visit: yes, but has since been removed by the nurse Removal date: 12/13/23 Removal time: 02:50 OB - PN: A/P Plan - Plan: routine postop care Time Spent with Patient Time: Total time spent is greater than 50% in coordination of care (as documented) at patient's floor/unit and/or counseling patient: Total time spent with greater than 50% in coordination of care (as documented) at patient's floor/unit and/or counseling patient: less than 15 minutes
[2023-12-13 10:31] VITALS: BP 106/68; TEMP 36.9
[2023-12-13] MEDS: DOCUSATE SODIUM 100 MG CAPSULE PO ×2 (10:35→20:18)
[2023-12-13] MEDS: ENOXAPARIN SODIUM 40 MG/0.4 ML SYRINGE SUBQ (13:54)
[2023-12-13] MEDS: OXYCODONE HCL/ACETAMINOPHEN 5MG/325MG 1 TAB PO (13:54)
[2023-12-13 13:55] VITALS: TEMP 36.8
[2023-12-13 13:56] VITALS: BP 112/69
[2023-12-13 16:33] VITALS: BP 115/57; PULSE 75; TEMP 36.7; TEMP 37.2; O2SAT 98
[2023-12-13] MEDS: CEFAZOLIN SODIUM/DEXTROSE,ISO 2 GM/50 ML PIGGYBACK IV (20:15)
[2023-12-14] VITALS: BP 123/62
--- NOTE | 2023-12-14 07:27 | PC.NURSE ---
Report given to Sharon Monterroso RN
[2023-12-14 08:08] VITALS: BP 114/69; TEMP 36.8
[2023-12-14] MEDS: KETOROLAC TROMETHAMINE 30 MG/ML VIAL IVP ×2 (08:16→16:34)
[2023-12-14] MEDS: DOCUSATE SODIUM 100 MG CAPSULE PO (08:16)
--- NOTE | 2023-12-14 09:04 | PM.OBPN ---
OB - PN: Subj Subjective Patient comments: no complaints and pain well controlled [place] status: doing well Exam Constitutional Vital Signs, click to edit/add: Last Vital Signs Temp 98.0 F 12/13/23 16:33 Pulse 75 12/13/23 16:33 Resp 16 12/14/23 00:09 BP 123/62 12/14/23 00:00 Pulse Ox 98 12/13/23 16:33 O2 Del Method Room Air 12/14/23 00:09 Documenting provider has reviewed patient's vital signs: yes Common normals: no apparent distress Respiratory Common normals: normal respiratory effort and clear to auscultation bilaterally Cardio Common normals: regular rate and regular rhythm GI Common normals: Normal to inspection, nondistended, normoactive bowel sounds present Extremity Common normals: no clubbing, cyanosis or edema and no calf tenderness Urinary Catheter Management Urinary Catheter Management Urethral: Cath placed during this visit: yes, but has since been removed by the nurse Removal date: 12/13/23 Removal time: 02:50 OB - PN: A/P Plan - day: 2 Plan: routine postop care Time Spent with Patient Time: Total time spent is greater than 50% in coordination of care (as documented) at patient's floor/unit and/or counseling patient: Total time spent with greater than 50% in coordination of care (as documented) at patient's floor/unit and/or counseling patient: less than 15 minutes
[2023-12-14] MEDS: ENOXAPARIN SODIUM 40 MG/0.4 ML SYRINGE SUBQ (16:34)
[2023-12-14 16:40] VITALS: BP 107/76; TEMP 36.6
[2023-12-14] MEDS: IBUPROFEN 400 MG TABLET 800 MG PO (23:50)
[2023-12-14 23:53] VITALS: BP 113/67; TEMP 36.6
[2023-12-15] MEDS: OXYCODONE HCL/ACETAMINOPHEN 5MG/325MG 2 TAB PO (08:39)
[2023-12-15 08:44] VITALS: BP 112/75; PULSE 74; TEMP 36.9; O2SAT 98
--- NOTE | 2023-12-15 09:50 | PM.OBPN ---
OB - PN: Subj Subjective Patient comments: other (intermittent heart pain ) status: doing well feeding status: breast and bottle feeding Narrative: patient states she had some chest pain in the center that she felt after she was done pumping. denies chest pain at time of assessment. She states she saw cardiology when she was seeing Vianey Mack at [facility] and also states she did not discuss this w Dr Bella. She denies crushing pain, no pressure, no numbing or tingling in extremities, no SOB Exam Constitutional Vital Signs, click to edit/add: Last Vital Signs Temp 98.4 F 12/15/23 08:44 Pulse 74 12/15/23 08:44 Resp 16 12/15/23 08:44 BP 112/75 12/15/23 08:44 Pulse Ox 98 12/15/23 08:44 O2 Del Method Room Air 12/15/23 08:44 Documenting provider has reviewed patient's vital signs: yes Common normals: no apparent distress, average body habitus, oriented x3, no limitations, healthy appearing, alert and well nourished HENOK Common normals: normocephalic Eye Common normals: EOMs intact bilaterally General eye: normal appearance of both eyes Neck & C-Spine Common normals: full ROM General: normal visual inspection Lymph Lymphatic: no lymphadenopathy noted Chest Common normals: inspection of chest normal Respiratory Common normals: normal respiratory effort Effort & inspection: able to speak in complete sentences Auscultation: clear to auscultation bilaterally Cardio Common normals: no JVD, regular rate, regular rhythm and no murmurs Rate: regular rate Rhythm: regular rhythm Other: patient states the percocet helps with the chest discomfort, we discussed musculoskeletal discomfort and she is crouched in a ball in the bed. she has not been out of been a lot independently or walked about the room. I did suggest to sit up and take some deep breaths and ambulate in the room. I did stay in the room and observe her do the incentive spirometer. Heart sounds were NSR without murmur. LS clear x4 bases and patient denies chest or heart pain at this time. GI Common normals: Normal to inspection, nondistended, normoactive bowel sounds present and soft to palpation Common normals: no CVA tenderness Back & Pelvis Common normals: no CVA tenderness Extremity Common normals: normal to inspection and full ROM Neuro Common normals: oriented x3 Sensorium/orientation: awake, alert, oriented to person, oriented to place and oriented to time Psych Common normals: mental status grossly normal, thought process normal and cooperative Attitude: calm Activity/motor behavior: appropriate eye contact Urinary Catheter Management Urinary Catheter Management Urethral: Cath placed during this visit: yes, but has since been removed by the nurse Removal date: 12/13/23 Removal time: 02:50 OB - PN: A/P Plan - day: 3 Plan: discharge home Time Spent with Patient Time: Total time spent is greater than 50% in coordination of care (as documented) at patient's floor/unit and/or counseling patient: Total time spent with greater than 50% in coordination of care (as documented) at patient's floor/unit and/or counseling patient: less than 15 minutes
--- NOTE | 2023-12-15 10:55 | ECG_ITS ---
The [facility] Test Date: 2023-12-15 Pat Name: LAURA FOUNTAIN Department: Room: [facility] Gender: Female [employer] Operator: : 2000 Requested By: ZHANE NORWOOD Order Number: [id number] Reading MD: PAVEL CASTELLANO Measurements Intervals [place] Rate: 80 P: 20 DC: 145 QRS: 32 QRSD: 86 T: 26 QT: 352 QTc: 408 Interpretive Statements SINUS RHYTHM Non-Specific T wave inversion in III WARNING: DATA QUALITY MAY AFFECT INTERPRETATION No previous ECG available for comparison Electronically Signed On 12-16-2023 8:32:05 EDT by PAVEL CASTELLANO
--- NOTE | 2023-12-15 11:00 | CT_ITS ---
The [address] [address] Patient Name: LAURA FOUNTAIN MRN: [id number] date: 2000 Sex: F Assigned Patient Location: [facility] Current Patient Location: [facility] Accession/Order Number: [id number] Exam Date: 12/15/2023 11:40 Report Date: 12/15/2023 13:32 At the request of: ZHANE NORWOOD Procedure: CT angio chest CT angio chest CLINICAL: R/O PE. patient with worsening chest pain. COMPARISON: No prior chest studies are available. TECHNIQUE: Thin section axial images were obtained from thoracic inlet to the diaphragms following the administration of intravenous contrast. CT angiographic reconstructions of the pulmonary arteries including multiple intensity projections in coronal and sagittal planes were performed. Dose reduction: mA and/or kV are were adjusted by automated exposure control software based upon patients height and weight. FINDINGS: Thoracic inlet and axillary structures are intact. No mediastinal or hilar adenopathy by CT criteria. Heart size is slightly enlarged. No significant coronary artery calcifications. No pericardial effusion. Limited upper abdominal images show no acute findings. Pulmonary arterial tree is opacified and does not show filling defect to indicate pulmonary embolism. Lung windows show no airspace consolidation, pleural effusion or pneumothorax. No suspicious pulmonary nodule. Central airways are patent. No osseous traumatic or destructive lesion is seen. CT/CT angio chest IMPRESSION: 1. No evidence of pulmonary embolism. 2. No acute intrathoracic findings. Electronically authenticated by: JEAN CONDE Date: 12/15/2023 13:32
== END 2023-12-15 15:00 | disposition home or self-care (01) | DRG 540 ==
PROVIDERS: Admitting Provider Obstetrics & Gynecology; Visit Provider Obstetrics & Gynecology
PROC: 10D00Z1 Extraction of Products of Conception, Low, Open Approach (ICD-10-PCS; CPT 59514; principal; 2023-12-12 18:15)
DX: O32.6XX0 Maternal care for compound presentation, not applicable or unspecified (principal); Z3A.39 39 weeks gestation of pregnancy; Z37.0 Single live birth; O90.89 Other complications of the puerperium, not elsewhere classified; R07.9 Chest pain, unspecified
CPT/HCPCS: 36415; 59050; 71275; 80307; 85025; 85027; 86850; 86900; 86901; 93005; 94667; 94668; 96372; 96374; 96375; 96376; J0690; J1100; J1650; J1885; J2274; J2371; J2405; J2590; Q9967

== ENCOUNTER 2024-08-12 21:08 | Outpatient (REF) | payer MEDICAID, SELFPAY ==
--- OUTSIDE RECORDS SUMMARY | 2024-08-12 21:11 | XMS_ITS | CCD ---
Author Organization [facility] Care Team Providers Care Stock Driver Name Role Phone Amaya Luu Unavailable PURNIMAC, DR COBOS Primary Care Unavailable CECIL ., RENETTA Attending Unavailable CECIL ., RENETTA Admitting Unavailable REQUEST, DR MORA LISTED Consulting Unavaila ble MISC, DR COBOS Primary Care Unavailable PAY ., DR BUNDY Attending Unavailable PAY ., DR BUNDY Admitting Unavailable CECIL .RENETTA Consulting Unavailable MISC, DR COBOS Primary Care Unavailable JENA ., DR PHELAN Attending Unavailable JENA ., DR PHELAN Consulting Unavailable JENA ., DR PHELAN Admitting Unavailable MARILIN RODRIGEZ Attending Unavailable FELICIANO CARLTON Attending Unavailab REINA Lewis Attending Unavailable HUA VELAZQUEZ Referring Unavailable NO PCP, NO PCP Primary Care Unavailable MALLIKA CONN Referring Unavailable NO PCP, NO PCP Primary Care Unavailable MALLIKA CONN Referring Unavailable NO PCP, NO PCP Primary Care Unavailable MALLIKA CONN Referring Unavailable NO PCP, NO PCP [...] Care Unavailable YARELI VILLAREAL Attending Unav ailable MALLKIA CONN Attending Unavailable NO PCP, NO PCP Primary Care Unavailable MALLIKA CONN Attending Unavailable NO PCP, NO PCP Primary Care Unavailable MALLIKA CONN Attending Unavailable NO PCP, NO PCP Primary Care Unavailable SALLY NEWMAN Attending Unavailable NO PCP, NO PCP Primary Care Unavailable NO PCP, NO PCP Primary Care Unavailable AMAYA CRUZ Attending Unavailable NO PCP, NO PCP Primary Care Unavailable Unavailable Primary Care Provider Unavailabl e No Pcp, No Pcp Primary Care Provider Unavailabl e No Pcp, No Pcp Primary Care Provider Unavailabl e JENA, OSMANY Attending Unavailable JENA, OSMANY Referring Unavailable JENA, OSMANY Attending Unavailable Jena DO, Osmany R Primary Care Provider GUERRERO JOHNSON Admitting Unavailable GUERRERO JOHNSON Attending Unavailable NO PCP, NO PCP Primary Care Unavailable DEVYN MCBRIDE Admitting Unavailable DEVYN MCBRIDE Attending Unavailable NO PCP, NO PCP Primary Care Unavailable DEVYN MCBRIDE Attending Unavailable DEVYN MCBRIDE Referring Unavailable NO PCP, NO PCP Primary Care Unavailable GUERRERO JOHNSON Admitting Unavailable GUERRERO JOHNSON Attending Unavailable NO PCP, NO PCP Primary Care Unavailable CARROLL JONES Admitting Unavailable KARENCARROLL JACQUES Attending Unavailable NO PCP, NO PCP Primary Care Unavailable NO PCP, NO PCP Primary Care Unavailable VASHTI LUGO Attending Unavailable NO PCP, NO PCP Primary Care Unavailable AARON REINOSO Attending Unavailabl e NO PCP, NO PCP Primary Care Unavailable ÓSCAR WEINBERG Attending Unavailable JENA, OSMANY R Referring Unavailable NO PCP, NO PCP Primary Care Unavailable ANNA, TIBERIU S Admitting Unavailable ANNA, TIBERIU S Attending Unavailable JENA, OSMANY R Primary Care Unavailable JENA, OSMANY R Referring Unavailable JENA, OSMANY R Primary Care Unavailable JULIA MCMAHON Admitting Unavailable JULIA MCMAHON Attending Unavailable JENA, OSMANY R Primary Care Unavailable Medications Current Medications Medication Drug Class(es) Dates Sig (Normalized) Sig (Original) acetaminophen 500 mg oral tablet (6 sources) End: 07-16-2024 take 2 tablets by mouth every six hours as needed acetaminophen (Tylenol) 500 MG tablet Take 1,000 mg by mouth every 6 (six) hours if needed 07/16/2024 Discontinued aspirin 81 mg chewable tablet (4 sources) Platelet Aggregation Inhibitor, Nonsteroidal Anti-inflammatory Drug Start: 01-14-2023 End: 07-16-2024 take 1 tablet by mouth once daily in the morning aspirin 81 MG chewable tablet chew and swallow 1 tablet by mouth every morning 01/14/2023 07/16/2024 Discontinued cephalexin 500 mg oral capsule (5 sources) Cephalosporin Antibacterial Start: 08-03-2024 End: 08-10-2024 take 1 capsule by mouth in the morning, then take 1 capsule by mouth at bedtime CEPHalexin (KEFLEX) 500 mg capsule Indications: Urinary tract infection in mother during , antepartum Take 1 capsule (500 mg total) by mouth in the morning and 1 capsule (500 mg total) before bedtime. Do all this for 7 days. 14 capsule 08/03/2024 08/10/2024 Active End: 10-10-2023 CEPHalexin (KEFLEX) 500 mg c apsule Take 1 capsule (500 mg total) by mouth in the morning and 1 capsule (500 mg total) at noon and 1 capsule (500 mg total) in the evening and 1 capsule (500 mg total) before bedtime. Active docusate sodium 100 mg oral capsule (13 sources) Start: 08-28-2023 take 1 capsule by mouth once daily as needed for constipation docusate sodium (COLACE) 100 mg capsule Indications: Constipation, unspecified constipation type Take 1 capsule (100 mg total) by mouth daily as needed for constipation. 30 capsule 2 08/28/2023 Active lansoprazole 30 mg delayed release oral capsule (16 sources) Proton Pump Inhibitor Start: 08-29-2023 End: 07-16-2024 take 1 capsule by mouth in the morning lansoprazole (Prevacid) [address] capsule Take 30 mg by mouth in the morning. 08/29/2023 07/16/2024 Discontinued magnesium oxide 400 mg oral tablet (17 sources) Start: 08-28-2023 End: 07-16-2024 take 1 tablet by mouth in the morning magnesium oxide (Mag-Ox) 400 MG tablet Take 400 mg by mouth in the morning. 08/28/2023 07/16/2024 Discontinued metoclopramide 10 mg oral tablet (4 sources) Dopamine-2 Receptor Antagonist Start: 01-04-2023 End: 07-16-2024 take 1 tablet by mouth in the morning, then take 1 tablet by mouth in the evening, then take 1 tablet by mouth at bedtime metoclopramide (Reglan) 10 MG tablet Indications: Nausea Take 1 tablet (10 mg) by mouth in the morning and 1 tablet (10 mg) in the evening and 1 tablet (10 mg) before bedtime. 1 tablet 01/04/2023 07/16/2024 Discontinued metroNIDAZOLE 500 mg oral tablet (1 source) Nitroimidazole Antimicrobial Start: 07-16-2024 End: 07-23-2024 take 1 tablet by mouth in the morning metroNIDAZOLE (Flagyl) 500 MG tablet Indications: BV (bacterial vaginosis) Take 1 tablet (500 mg) by mouth in the morning and 1 tablet (500 mg) before bedtime. Do all this for 7 days. Do not drink alcohol while taking this medication. 14 tablet 07/16/2024 07/23/2024 Active miconazole nitrate 100 mg vaginal insert (1 source) Azole Antifungal Start: 09-02-2023 End: 09-09-2023 miconazole (MICOTIN-7) 100 mg vaginal suppository Indications: Vaginal yeast infection Insert 1 suppository (100 mg total) into the vagina nightly for 7 days. 7 suppository 09/02/2023 09/09/2023 Active nitrofurantoin, macrocrystals 25 mg / nitrofurantoin, monohydrate 75 mg oral capsule (6 sources) Nitrofuran Antibacterial Start: 08-12-2024 End: 08-19-2024 take 1 capsule by mouth in the morning nitrofurantoin, macrocrystal-monoh ydrate, (Macrobid) 100 MG capsule Indications: Flank pain Take 1 capsule (100 mg) by mouth in the morning and 1 capsule (100 mg) before bedtime. Do all this for 7 days. 14 capsule 08/12/2024 08/19/2024 Active Start: 11-17-2023 End: 11-22-2023 take 1 capsule by mouth once nitrofurantoin, macrocrystal-monohydrate , (MACROBID) 100 mg capsule Take 1 capsule (100 mg total) by mouth every 12 (twelve) hours for 5 days. 10 capsule 11/17/2023 11/22/2023 Active Start: 08-22-2023 End: 08-29-2023 take 1 capsule by mouth in the morning, then take 1 capsule by mouth at bedtime nitrofurantoin, macrocrystal-monohydrate , (MACROBID) 100 mg capsule Take 1 capsule (100 mg total) by mouth in the morning and 1 capsule (100 mg total) before bedtime. Do all this for 7 days. 14 capsule 08/22/2023 08/29/2023 omeprazole 20 mg delayed release oral capsule (4 sources) Proton Pump Inhibitor Start: 10-19-2022 End: 07-16-2024 take 1 capsule by mouth before mealtime omeprazole (PriLOSEC) [address] capsule Indications: Heart burn Take 1 capsule (20 mg) by mouth in the morning. Take before meals. Do not crush or chew. . 30 capsule 11 10/19/2022 07/16/2024 Discontinued ondansetron 4 mg oral tablet (1 source) Serotonin-3 Receptor Antagonist Start: 06-25-2024 take 1 tablet by mouth every eight hours as needed for nausea and vomiting ondansetron (ZOFRAN) 4 mg tablet Take 1 tablet (4 mg total) by mouth every 8 (eight) hours as needed for nausea or vomiting for up to 12 doses. 12 tablet 06/25/2024 Active polyethylene glycol 3350 82498 mg powder for oral solution (8 sources) Osmotic Laxative End: 07-16-2024 take 17 g by mouth in the morning polyethylene glycol, PEG, 3350 (Miralax) 17 g packet Take 17 g by mouth in the morning. 07/16/2024 Discontinued 21-iron fu-folic acid ( COMPLETE) 14 mg iron- 400 mcg tablet (8 sources) Start: 08-22-2023 End: 09-21-2023 take 1 tablet by mouth in the morning 21-iron fu-folic acid ( COMPLETE) 14 mg iron- 400 mcg tablet Take 1 tablet by mouth in the morning for 30 days. 30 tablet 2 08/22/2023 09/21/2023 Active MV & Min w/FA-DHA ( Gummies) 0.18-25 MG chewable tablet (6 sources) Start: 06-02-2024 MV & Min w/FA-DHA ( Gummies) 0.18-25 MG chewable tablet Indications: Vaginal bleeding affecting early Chew 1 each Daily 30 tablet 11 06/02/2024 Active vit,sal 74/iron/folic ( VITAMIN 1+1 ORAL) (6 sources) vit,sal 74/iron/folic ( VITAMIN 1+1 ORAL) Take by mouth daily. Active Completed/Discontinued Medications Medication Drug Class(es) Dates Sig (Normalized) Sig (Original) terconazole 8 mg/ml vaginal cream (1 source) Azole Antifungal End: 10-10-2023 terconazole (TERAZOL 3) 0.8 % vaginal cream Insert 1 applicator into the vagina nightly. 10/10/2023 Discontinued (Therapy completed) Problems Active Problems Problem Classification Problem Date Documented Da te Episodic/Chronic Abdominal pain (20 sources) Pain in pelvis; Translations: [Right sided abdominal pain] Onset: 3 Resolved: 4 12-22-2022 Episodic E Codes: Fall (1 source) Fall Onset: 4 Esophageal disorders (20 sources) Gastro-esophageal reflux disease with esophagitis; Translations: [Gastroesophageal reflux disease with esophagitis without hemorrhage] Onset: 2 Resolved: 4 11-16-2022 Chronic Headache; including migraine (20 sources) Chronic migraine without aura, intractable, with status migrainosus; Translations: [Chronic intractable migraine without aura] Onset: 4 05-10-2023 Chronic Headache; including migraine (1 source) Headache; including migraine; Translations: [Headache, unspecified] Onset: 4 Hemorrhage during ; abruptio placenta; placenta previa (4 sources) Hemorrhage in early , unspecified; Translations: [Vaginal bleeding complicating early ] Onset: 3 06-02-2024 Episodic Immunizations and screening for infectious disease (7 sources) Encounter for screening for infections with a predominantly sexual mode of transmission; Translations: [Patient encounter status] Onset: 4 08-28-2023 Episodic Inflammatory diseases of female pelvic organs (1 source) Bacterial vaginosis; Translations: [Acute vaginitis] 07-16-2024 Episodic Menstrual disorders (20 sources) Missed period; Translations: [Irregular menstruation, unspecified] Onset: 9 Resolved: 2 10-16-2022 Chronic Mood disorders (20 sources) Major depressive disorder, recurrent, moderate; Translations: [Recurrent major depressive episodes] Onset: 7 Resolved: 1 11-16-2022 Chronic Other aftercare (2 sources) Patient encounter status; Translations: [Encounter for follow-up examination after completed treatment for conditions other than malignant neoplasm] 06-02-2024 Episodic Other complications of (1 source) Vomiting [...] care, unspecified trimester] Onset: 4 Episodic Other complications of (2 sources) Urinary tract infection in ; Translations: [Unspecified infection of urinary tract in , unspecified trimester] Onset: 5 08-03-2024 Episodic Other complications of (1 source) Other specified related conditions, unspecified trimester; Translations: [Other specified related conditions, unspecified trimester] Onset: 5 Episodic Other female genital disorders (1 source) Abnormal uterine and vaginal bleeding, unspecified; Translations: [Abnormal uterine and vaginal bleeding, unspecified] Onset: 5 Chronic Other female genital disorders (1 source) Vaginal bleeding Onset: 5 Chronic Other female genital disorders (2 sources) Vaginal discharge; Translations: [Other specified noninflammatory disorders of vagina] 08-12-2024 Episodic Other gastrointestinal disorders (1 source) Constipation, unspecified; Translations: [Constipation, unspecified] Onset: 4 Episodic Other lower respiratory disease (19 sources) Cough; Translations: [Cough] Onset: 1 Resolved: 2 07-06-2021 Episodic Other and delivery including normal (20 sources) Encounter for test, result positive; Translations: [Twin , monochorionic/diamniot ic, second trimester] Onset: 2 Resolved: 4 Episodic Other screening for suspected conditions (not mental disorders or infectious disease) (8 sources) Encounter for nonprocreative screening for genetic disease carrier status; Translations: [Encounter for screening for other genetic defects] Onset: 4 08-28-2023 Episodic Other upper respiratory infections (20 sources) Acute maxillary sinusitis; Translations: [Acute maxillary sinusitis, unspecified] Onset: 0 Resolved: 2 07-06-2021 Episodic Residual codes; unclassified (2 sources) 21 weeks gestation of ; Translations: [21 [...] Translations: [Cystic fibrosis carrier] Onset: 4 Episodic Residual codes; unclassified (1 source) Gestation period, 21 weeks; Translations: [21 weeks gestation of ] 07-16-2024 Episodic Residual codes; unclassified (1 source) 12 weeks gestation of ; Translations: [12 weeks gestation of ] Onset: 5 Episodic Unclassified (2 sources) Initial Visit Onset: 4 Unclassified (1 source) New Patient Onset: 4 Unclassified (1 source) Procedure Onset: 4 Unclassified (1 source) urinary frequency, pelvic cramping, Onset: 4 Unclassified (1 source) Abdominal Pain Onset: 4 Unclassified (1 source) Routine Visit Onset: 4 Unclassified (1 source) Food insecurity; Translations: [Food insecurity] Onset: 4 Unclassified (1 source) Other underimmunization status; Translations: [Other underimmunization status] Onset: 4 Unclassified (1 source) Post covid-19 condition, unspecified; Translations: [Post covid-19 condition, unspecified] Onset: 4 Unclassified (1 source) Cold Like Symptoms Onset: 4 Unclassified (1 source) Blurred Vision Onset: 4 Unclassified (1 source) Decreased Movement Onset: 4 Past or Other Problems Problem Classification Problem Date Documented Da te Episodic/Chronic Administrative/social admission (20 sources) Advice given; Translations: [Other specified counseling] Onset: 03-06-2021 Resolved: 08-28-2023 11-16-2022 Episodic Cardiac dysrhythmias (1 source) Palpitations; Translations: [Palpitations] 08-29-2023 Episodic Contraceptive and procreative management (20 sources) Subcutaneous contraceptive implant present; Translations: [Presence of (intrauterine) contraceptive device] Onset: 04-05-2023 Resolved: 08-28-2023 04-05-2023 Episodic Early or threatened labor (20 sources) Premature uterine contraction; Translations: [False labor before 37 completed weeks of gestation, unspecified trimester] Onset: 01-24-2023 Resolved: 08-28-2023 01-24-2023 Episodic Gastrointestinal hemorrhage (17 sources) Blood-tinged feces; Translations: [Melena] Onset: 03-12-2019 Resolved: 08-22-2020 08-22-2020 Episodic Genitourinary symptoms and ill-defined conditions (20 sources) Dysuria; Translations: [Urinary frequency] Onset: 07-06-2021 Resolved: 08-28-2023 Episodic Headache; including migraine (7 sources) Acute headache; Translations: [Acute intractable headache, unspecified headache type] Onset: 11-27-2023 08-28-2023 Episodic Mood disorders (17 sources) Mood disorders Onset: 08-03-2021 Resolved: 08-29-2023 08-03-2021 Mycoses (1 source) Candidiasis of vagina; Translations: [Vaginal yeast infection] 09-02-2023 Episodic Nausea and vomiting (2 sources) Nausea with vomiting, unspecified; Translations: [Nausea] Onset: 11-04-2022 Episodic Nonspecific chest pain (15 sources) Chest pain; Translations: [Chest pain, unspecified] Onset: 08-29-2023 Resolved: 09-12-2023 08-29-2023 Episodic Other complications of (2 sources) Supervision of with insufficient care, second trimester; Translations: [Supervision of with insufficient care, second trimester] Onset: 08-29-2023 Episodic Other complications of (1 source) Maternal care for excessive growth, unspecified trimester, not applicable or unspecified; Translations: [Maternal care for excessive growth, unspecified trimester, not applicable or unspecified] Onset: 08-29-2023 Episodic Other complications of (19 sources) H/O: premature delivery; Translations: [Supervision of other high risk pregnancies, unspecified trimester] Onset: 08-28-2023 08-23-2023 Episodic Other complications of (1 source) History of gynecological disorder; Translations: [Supervision of with other poor reproductive or obstetric history, unspecified trimester] 08-23-2023 Episodic Other complications of (1 source) High risk ; Translations: [Supervision of other high risk pregnancies, second trimester] 08-26-2023 Episodic Other complications of (8 sources) Late entry into care; Translations: [Supervision of with insufficient care, second trimester] Onset: 11-19-2023 08-29-2023 Episodic Other complications of (15 sources) Excessive growth affecting management of mother; Translations: [Maternal care for excessive growth, unspecified trimester, not applicable or unspecified] Onset: 08-29-2023 Resolved: 10-10-2023 08-29-2023 Episodic Other complications of (12 sources) Varicella non-immune; Translations: [Supervision of other high risk pregnancies, unspecified trimester] Onset: 09-02-2023 09-02-2023 Episodic Other complications of (6 sources) Finding of pattern of ; Translations: [Supervision of other high risk pregnancies, unspecified trimester] Onset: 11-19-2023 11-19-2023 Episodic Other complications of (1 source) Decreased movements, unspecified trimester, not applicable or unspecified; Translations: [Decreased movements, unspecified trimester, not applicable or unspecified] Onset: 10-17-2023 Episodic Other ear and sense organ disorders (17 sources) Pain of ear structure; Translations: [Otalgia, bilateral] Onset: 06-23-2020 Resolved: 08-22-2020 08-22-2020 Episodic Other female genital disorders (1 source) Personal history of pre-term labor; Translations: [Personal history of pre-term labor] Onset: 08-29-2023 Episodic Other gastrointestinal disorders (2 sources) Slow transit constipation; Translations: [Slow transit constipation] Onset: 08-03-2021 Episodic Other gastrointestinal disorders (20 sources) Slow transit constipation; Translations: [Slow transit constipation] Onset: 03-12-2019 11-16-2022 Episodic Other gastrointestinal disorders (1 source) Constipation; Translations: [Constipation, unspecified] 08-28-2023 Episodic Other lower respiratory disease (1 source) Chronic cough; Translations: [Chronic cough] Onset: 03-15-2024 Episodic Other nutritional; endocrine; and metabolic disorders (2 sources) Personal history of other endocrine, nutritional and metabolic disease; Translations: [Personal history of other endocrine, nutritional and metabolic disease] Onset: 08-29-2023 Episodic Other nutritional; endocrine; and metabolic disorders (14 sources) H/O: thyroid disorder; Translations: [Personal history of other endocrine, nutritional and metabolic disease] Onset: 08-30-2023 08-29-2023 Episodic Otitis media and related conditions (17 sources) Otitis; Translations: [Otitis media, unspecified, left ear] Onset: 06-23-2020 Resolved: 08-22-2020 08-22-2020 Episodic Residual codes; unclassified (1 source) H/O: ; Translations: [Personal history of other complications of , childbirth and the puerperium] 08-23-2023 Episodic Residual codes; unclassified (1 source) Gestation period, 23 weeks; Translations: [23 weeks gestation of ] 08-23-2023 Episodic Residual codes; unclassified (17 sources) Generalized aches and pains; Translations: [Pain, unspecified] Onset: 05-10-2021 Resolved: 07-06-2021 07-06-2021 Episodic Residual codes; unclassified (10 sources) Carrier of cystic fibrosis gene mutation; Translations: [Cystic fibrosis carrier] Onset: 09-12-2023 09-12-2023 Episodic Residual codes; unclassified (1 source) Gestation period, 36 weeks; Translations: [36 weeks gestation of ] 11-27-2023 Episodic Residual codes; unclassified (1 source) Gestation period, 38 weeks; Translations: [38 weeks gestation of ] 12-06-2023 Episodic Spondylosis; intervertebral disc disorders; other back problems (20 sources) Acute back pain with sciatica; Translations: [Lumbago with sciatica, right side] Onset: 06-02-2019 Resolved: 08-28-2023 11-16-2022 Episodic Substance-related disorders (18 sources) Drug use complicating , unspecified trimester; Translations: [Cannabis use, unspecified, uncomplicated] Onset: 08-29-2023 08-29-2023 Episodic Unclassified (1 source) Acute cough R05.1 Onset: 11-14-2021 Resolved: 11-14-2021 Urinary tract infections (20 sources) Urinary tract infection, site not specified; Translations: [Acute cystitis without hematuria] Onset: 07-06-2021 Resolved: 08-28-2023 11-16-2022 Episodic Results Test Name Value Interpretation Reference Range Facility Urinalysis macro (dipstick) panel (U)on 08-12-2024 Bilirubin, UA Negative Negative - 4(70) +++ mg/dL [facility] Blood, UA Negative Negative - 50 Ayden/mcL [facility] Clarity, UA Clear [facility] Color, UA Yellow [facility] Glucose, UA Negative Negative - 1999(110) ++++ mg/dL [facility] Interpretation and review of laboratory results Normal [facility] Ketones, UA Negative Negative - 160(16) ++++ mg/dL [facility] Leukocytes, UA Negative Negative - 500+++ Caleb/mcL [facility] Nitrite, UA Negative Negative - Positive [facility] pH, UA 5.5 5 - 9 [facility] Protein, UA Negative Negative - 2000(20) ++++ mg/dL [facility] Spec Grav, UA 1.02 1 - 1.03 [facility] Urobilinogen, UA 1.0 0.2 - 12 mg/dL [facility] URINALYSISon 08-03-2024 Bilirubin Ql (U) Negative Normal NEG [facility] Comment on above: Performed By: #### U A ####[facility] ([id number])[address] [place] [id number] BLOOD/HGB Negative Normal NEG [facility] Comment on above: Performed By: #### U A ####[facility] ([id number])[address] [place] [address] 6[address] Color (U) YELLOW Normal YELLOW [facility] Comment on above: Performed By: #### U A ####[facility] ([id number])[address] [place] [address] 96770 Glucose Ql (U) Negative Normal NEG [facility] Comment on above: Performed By: #### U A ####[facility] ([id number])[address] [place] [address] [id number] Ketones Ql (U) Negative Normal NEG [facility] Comment on above: Performed By: #### U A ####[facility] ([id number])[address] [place] [address] [phone] Leukocyte esterase Test stri p Ql (U) SMALL Abnormal NEG [facility] Comment on above: Performed By: #### U A ####[facility] ([id number])[address] [place] [address] [place] [address] MUCOUS PRESENT Abnormal NONE [facility] Comment on above: Performed By: #### U A ####[facility] ([id number])[address] [place] [address] [id number] Nitrite Ql (U) Negative Normal NEG [facility] Comment on above: Performed By: #### U A ####[facility] ([id number])[address] [place] [address] 67460 pH (U) 6.0 [pH] Normal 5.0-8.5 [facility] Comment on above: Performed By: #### U A ####[facility] ([id number])[address] [place] [address] 96719 Protein Ql (U) Negative Normal NEG [facility] Comment on above: Performed By: #### U A ####[facility] ([id number])[address] [place] [address] 70502 R.B.CELLS 0 /hpf Normal 0-5 [facility] Comment on above: Performed By: #### U A ####[facility] ([id number])[address] [place] [address] 65500 Specific gravity (U) [Rel density] 1.025 Normal 1.003-1.03 5 [facility] Comment on above: Performed By: #### U A ####[facility] ([id number])[address] [place] [address] 54514 SQUAMOUS EPITHELIUM 13 /hpf High 0-5 [facility] Comment on above: Performed By: #### U A ####[facility] [facility] ([id number])[address] [place] [address] TURBIDITY CLEAR Normal CLEAR [facility] Comment on above: Performed By: #### U A ####[facility] ([id number])[address] [place] [address] Urinalysis dipstick W Reflex Microscopic panel (U) URINE RECEIVED WITHOUT PRESERVATIVE-DELAY S IN TRANSPORT MAY AFFECT RESULTS.INTERPRET WITH CAUTION AND CLINICAL CORRELATION IS RECOMMENDED. Normal [facility] Comment on above: Performed By: #### U A ####[facility] ([id number])[address] [place] [address] Urobilinogen Qn (U) 0.2 {Krishna'U}/dL Normal <1.1 [facility] Comment on above: Performed By: #### U A ####[facility] ([id number])[address] [place] [address] W.B.CELLS 12 /hpf High 0-5 [facility] Comment on above: Performed By: #### U A ####[facility] ([id number])[address] [place] [address] URINE CULTUREon 08-03-2024 Bacteria identified Cx Nom (U) SPECIMEN NOTES URINE RECEIVED WITHOUT PRESERVATIVE CULTURE RESULTS 10-50,000 ORGANISMS/mL NORMAL UROGENITAL ALEX URINE RECEIVED WITHOUT PRESERVATIVE-DELAY S IN TRANSPORT MAY AFFECT RESULTS.INTERPRET WITH CAUTION AND CLINICAL CORRELATION IS RECOMMENDED. Normal [facility] Comment on above: Performed By: #### 6 30-4 ####[facility] ([id number])[address] [facility], [address] [place] [address] US OB 14+ WEEKS ANATOMY SCAN on 07-28-2024 US OB 14+ WEEKS ANATOMY SCAN EXAM: US OB 14+ WEEKS ANATOMY SCAN HISTORY: anatomy. COMPARISON: None available. TECHNIQUE: Two-dimensional transabdominal grayscale ultrasound imaging of the pelvis was performed. FINDINGS: Gestation: Single Presentation: Cephalic Cardiac Activity: 152 beats per minute Placental Location: Posterior with no sonographic abnormalities identified. Distance from Placental Tip to Cervix: 5.1 cm Cervical Length: 5.0 cm Amniotic Fluid: Appears adequate MEASUREMENTS: BPD: 5.4 cm EGA: 22 weeks 3 days HC: 19.8 cm EGA: 22 weeks 0 days AC: 17.4 cm EGA: 22 weeks 3 days FL: 4.1 cm EGA: 23 weeks 2 days HC/AC Ratio: 1.14 The gestational age by today's ultrasound is 22 weeks 4 days (+/- 11 days gestation). Estimated Weight: 527 grams, +/- 79 grams ( 1 lb 3 oz). Weight Percentile for gestational age: 28 % ANATOMY C-Spine: Unremarkable T-Spine: Unremarkable L-Spine: Unremarkable Sacrum: Unremarkable Four Chamber Heart: Unremarkable LVOT: Unremarkable RVOT: Unremarkable Stomach: Unremarkable Kidneys: Unremarkable Bladder: Unremarkable Diaphragm: Unremarkable Cord insertion: Unremarkable Cord vessels: Three Lateral Ventricles: Unremarkable Cerebellum: Unremarkable Cisterna Magna: Unremarkable Posterior Fossa: Unremarkable Right Femur: Unremarkable Left Femur: Unremarkable Right Tib/Fib: Unremarkable Left Tib/Fib: Unremarkable Right Rad/Ulnar: Unremarkable Left Rad/Ulnar: Unremarkable Right Humerus: Unremarkable Left Humerus: Unremarkable Nose/Lips: Unremarkable Orbits: Unremarkable IMPRESSION: 1. Single, live intrauterine gestation 23 weeks, 0 days by LMP. Today's ultrasound measurements correlate with a gestational age of 22 weeks 4 days. Estimated weight is 527 grams, +/- 79 grams ( 1 lb 3 oz) which correlates to 28 %. KARTIK is 11/27/2024. 2. Unremarkable ultrasound of the anatomy. Electronically Signed:Electronica lly signed by REUBEN CERDA II, MD, PHD at 28-Jul-2024 09:45:45 PM [facility] Normal Not Available Comment on above: Order Comment: US OB ANATOMY SINGLE W US OB CERVICAL LENGTH Estimated Date of Delivery: 11/24/24 Gestational Age as of 07/16/2024: 21w2d AFP panelon 07-27-2024 AFP SINGLE MARKER SCRN, MATERNAL, SERUM SEE COMMENTS 07/29/2024 03:00 PM Normal [facility] Comment on above: Result Comment: NOTE Test Result Flag Unit RefValue AFP Single Marker SCRN, Maternal, S Results Summary Normal risk Neural tube defect risk estimate AFP 124.0 ng/mL AFP MoM 1.51 MoM <2.50 INTERPRETATION Screen negative for neural tube defects. RECOMMENDED FOLLOW UP None. Specimen collection date 07/27/24 Maternal date of 02 Calculated age at KARTIK 24 years Maternal Weight 160 lbs Insulin dependent diabetes No Patient race non-Black Current cigarette smoking status non-Smoker KARTIK by U/S scan 11/24/24 GA on collection by U/S scan 22,6 wk,d GA used in risk estimate Scan estimate Number of Fetuses 1 Number of Chorions Not applicable IVF No Prev w/ Neural Tube Unknown Defect Patient or father of baby has a Unknown NTD Initial or repeat testing Initial testing Physician Phone Number [phone] GENERAL TEST INFORMATION See Note This screening provides an estimation of risk, not a diagnosis. Incorrect or incomplete information may significantly alter results. Results may be unreliable in twin pregnancies with a demise. Results are not available for pregnancies with triplets and higher-order multiples. A positive result occurs when the AFP MoM equals or exceeds 2.5. Screen results and family history influence individual risk. If there is a family history of a neural tube defect, chromosome abnormality, or other inherited condition, consider the option of a genetic consultation. For further information, please contact the maternal screening laboratory at . ADDITIONAL INFORMATION This test was developed and its performance characteristics determined by [facility] in a manner consistent with CLIA requirements. This test has not been cleared or approved by the U.S. Food and Drug Administration. Test Performed by: [facility] [address] [place] [address] Ripshear Operator: Gamaliel Au Ph.D.; CLIA# [id number] Performed By: #### V PPCR #### [facility] ([id number]) [address] [facility], [address] [place] [address] CBC AND AUTO DIFFon 07-28-19 25 ABSOLUTE BASOPHIL 0.0 X10E9/L Normal 0.0-0.2 [facility] Comment on above: Performed By: #### V PPCR #### [facility] ([id number]) [address] [facility], [address] [place] [address] ABSOLUTE NEUTROPHIL 7.7 X10E9/L High 1.5-6.6 [facility] Comment on above: Performed By: #### V PPCR #### [facility] ([id number]) [address] [facility], [address] [place] [address] Basophils/100 WBC (Bld) 0.2 % Normal [facility] Comment on above: Performed By: #### V PPCR #### [facility] ([id number]) [address] [address] [place] [address] Eosinophils (Bld) [#/Vol] 0.0 10*3/uL Normal 0.0-0.4 [facility] Comment on above: Performed By: #### V PPCR #### [facility] ([id number]) [address] [address] Eosinophils/100 WBC (Bld) 0.3 % Normal [facility] Comment on above: Performed By: #### V PPCR #### [facility] ([id number]) [address] [address] Erythrocyte distribution width (RBC) [Ratio] 14.1 % Normal 11.5-15.0 [facility] Comment on above: Performed By: #### V PPCR #### [facility] ([id number]) [address] [address] [place] [address] Hematocrit (Bld) [Volume fraction] 34.7 % Low 35-47 [facility] Comment on above: Performed By: #### V PPCR #### [facility] ([id number]) [address] [address] [place] [address] Hemoglobin (Bld) [Mass/Vol] 12.1 g/dL Normal 11.7-15. 5 [facility] Comment on above: Performed By: #### V PPCR #### [facility] ([id number]) [address] [address] Lymphocytes (Bld) [#/Vol] 1.8 10*3/uL Normal 1.0-3.5 [facility] Comment on above: Performed By: #### V PPCR #### [facility] ([id number]) [address] [place] [address] Lymphocytes/100 WBC (Bld) 18.5 % Normal [facility] Comment on above: Performed By: #### V PPCR #### [facility] ([id number]) [address], [address] [place] [address] MCH (RBC) [Entitic mass] 29.4 pg Normal 27-34 [facility] Comment on above: Performed By: #### V PPCR #### [facility] ([id number]) [address], [address] [place] [address] MCHC (RBC) [Mass/Vol] 34.7 g/dL Normal 32-36 [facility] Comment on above: Performed By: #### V PPCR #### [facility] ([id number]) [address] [address] [place] [address] MCV (RBC) [Entitic vol] 85 fL Normal 80-100 [facility] Comment on above: Performed By: #### V PPCR #### [facility] ([id number]) [address], [address] [place] [address] Monocytes (Bld) [#/Vol] 0.3 10*3/uL Normal 0-0.9 [facility] Comment on above: Performed By: #### V PPCR #### [facility] ([id number]) [address], [address] [place] [address] Monocytes/100 WBC (Bld) 3.2 % Normal [facility] Comment on above: Performed By: #### V PPCR #### [facility] ([id number]) [address], [address] [place] [address] Neutrophils/100 WBC (Bld) 77.8 % Normal [facility] Comment on above: Performed By: #### V PPCR #### [facility] ([id number]) [address], [address] [place] [address] Platelet mean volume (Bld) [Entitic vol] 9.0 fL Normal 7-12 [facility] Comment on above: Performed By: #### V PPCR #### [facility] ([id number]) [address], [address] [place] [address] Platelets (Bld) [#/Vol] 258 10*3/uL Normal 150-450 [facility] Comment on above: Performed By: #### V PPCR #### [facility] ([id number]) [address], [facility] [address] [place] [address] RBC COUNT 4.10 X10E12/L Normal 3.80-5.20 [facility] Comment on above: Performed By: #### V PPCR #### [facility] ([id number]) [address], [facility] [address] [place] [address] WBC (Bld) [#/Vol] 9.9 10*3/uL Normal 4.0-11.0 [facility] Comment on above: Performed By: #### V PPCR #### [facility] ([id number]) [address], [address] [place] [address] DRUG SCREEN, URINEon 025 AMPHETAMINE/METHAMP Negative Normal NEG [facility] Comment on above: Result Comment: AMPH /METH screening cut off = 1000 ng/mL Performed By: #### V PPCR #### [facility] ([id number]) [address], [address] [place] [address] BARBITURATES Negative Normal NEG [facility] Comment on above: Result Comment: Jami iturates screening cut off value = 200 ng/mL Performed By: #### V PPCR #### [facility] ([id number]) [address], [address] [place] [address] BENZODIAZEPINES Negative Normal NEG [facility] Comment on above: Result Comment: Hunter odiazepines screening cut off value = 200 ng/mL Performed By: #### V PPCR #### [facility] ([id number]) [address] [facility], [address] [address] CANNABINOIDS Negative [facility] Comment on above: Result Comment: Latha abinoids/THC screening cut off value = 50 ng/mL Performed By: #### V PPCR #### [facility] ([id number]) [address] [facility], [address] [place] [address] COCAINE METABOLITE Negative Normal NEG [facility] Comment on above: Result Comment: Coca ine screening cut off value = 300 ng/mL Performed By: #### V PPCR #### [facility] ([id number]) [address] [facility], [address] [place] [address] ECSTASY Negative Normal [facility] Comment on above: Result Comment: Ecst asy screening cut off value = 500 ng/mL This report is intended for use in clinical monitoring or management of patients. Performed By: #### V PPCR #### [facility] ([id number]) [facility] [place] [address] METHADONE Negative [facility] Comment on above: Result Comment: Meth adone screening cut off value = 300 ng/mL. Performed By: #### V PPCR #### [facility] ([id number]) [address] [facility], [address] [place] [address] OPIATES Negative Normal [facility] Comment on above: Result Comment: Opia olivia screening cut off value = 300 ng/mL NOTE: This test is used for the detection of codeine, hydrocodone (>1000 ng/mL), morphine and hydromorphone (>900 ng/mL) in urine. Performed By: #### V PPCR #### [facility] ([id number]) [address] [facility], [address] [place] [address] OXYCODONE Negative Normal [facility] Comment on above: Result Comment: Oxyc odone screening cut off value = 300 ng/mL NOTE: This test is used for the detection of oxycodone and oxymorphone in urine. Performed By: #### V PPCR #### [facility] ([id number]) [address], [address] [place] [address] PHENCYCLIDINE Negative Normal NEG [facility] Comment on above: Result Comment: Phen cyclidine screening cut off value = 25 ng/mL Performed By: #### V PPCR #### [facility] ([id number]) [address], [address] [address] HBV surface Ag [facility] 07-27 HEPATITIS B SURF AG Non-Reactive Normal NRCT Pro [facility] Comment on above: Result Comment: NEW TEST METHOD Performed By: #### V PPCR #### [facility] ([id number]) [address], [address] [place] [address] HCV Ab [facility] 07-27-2024 ANTI HCV W/PCR REFLX Non-Reactive Normal NRCT Pr [facility] Comment on above: Result Comment: NEW TEST METHOD NOTE If recent infection suspected, recommend repeat testing (>2 months). Zdbejx-qw-vzixuh ratio is <1.00. Performed By: #### V PPCR #### [facility] ([id number]) [address], [address] [place] [address] HGB A1C (GLYCO-HGB)on 2024 Glucose [Mass/Vol] 85 mg/dL Normal [facility] Comment on above: Performed By: #### V PPCR #### [facility] ([id number]) [address], [address] [place] [address] HbA1c (Bld) [Mass fraction] 4.6 % Normal 4.4-5.6 [facility] Comment on above: Result Comment: NOTE ADA Guidelines Result HgbA1c Normal : less than 5.7 % Prediabetes : 5.7 % to 6.4 % Diabetes : > 6.4 % Use with caution in patients with abnormal hemoglobin variants as the half-life of red blood cells and in vivo glycation rates are affected. Performed By: #### V PPCR #### [facility] ([id number]) [address] [place] [address], [address] [place] [address] Rubella virus IgG Qn (S)on 0 07-27-2024 RUBELLA IgG 15 IU/mL Normal [facility] Comment on above: Result Comment: Interpretation-------- <8 NEGATIVE-considered Not Immune 8-9 EQUIVOCAL-consider retesting with new specimen >9 POSITIVE-considered Immune Performed By: #### V PPCR #### [facility] ([id number]) [address] [place] [address], [address] [place] [address] T. pallidum IgG+IgM IA Ql (S )on 07-27-2024 Syphilis Total <0.2 Normal 0.0-0.8 [facility] Comment on above: Result Comment: NON REACTIVE No serologic evidence of infection to Treponema pallidum (syphilis). Repeat testing may be considered in patients with suspected acute or primary syphilis in 2 to 4 weeks. Performed By: #### V PPCR #### [facility] ([id number]) [address] [place] [address], [address] [place] [address] TSH Qnon 07-27-2024 TSH 1.68 uIU/mL Normal 0.49-4.67 [facility] Comment on above: Performed By: #### V PPCR #### [facility] ([id number]) [address] [place] [address], [address] [place] [address] URINALYSISon 07-12-2024 Bilirubin Ql (U) Negative Normal NEG [facility] Comment on above: Performed By: #### V PPCR #### [facility] ([id number]) [address], [address] [place] [address] BLOOD/HGB Negative Normal NEG [facility] Comment on above: Performed By: #### V PPCR #### [facility] ([id number]) [address], [address] [place] [address] Color (U) YELLOW Normal YELLOW [facility] Comment on above: Performed By: #### V PPCR #### [facility] ([id number]) [address] [facility], [address] [place] [address] Glucose Ql (U) Negative Normal NEG [facility] Comment on above: Performed By: #### V PPCR #### [facility] ([id number]) [address] [facility], [address] [place] [address] Ketones Ql (U) Negative Normal NEG [facility] Comment on above: Performed By: #### V PPCR #### [facility] ([id number]) [address] [facility], [address] [place] [address] Leukocyte esterase Test stri p Ql (U) MODERATE Abnormal NEG [facility] Comment on above: Performed By: #### V PPCR #### [facility] ([id number]) [address], [address] [place] [address] Nitrite Ql (U) Negative Normal NEG [facility] Comment on above: Performed By: #### V PPCR #### [facility] ([id number]) [address], [address] [place] [address] pH (U) 7.0 [pH] Normal 5.0-8.5 [facility] Comment on above: Performed By: #### V PPCR #### [facility] ([id number]) [address], [address] [place] [address] Protein Ql (U) Negative Normal NEG [facility] Comment on above: Performed By: #### V PPCR #### [facility] ([id number]) [address] [facility], [address] [place] [address] R.B.CELLS 5 /hpf Normal 0-5 [facility] Comment on above: Performed By: #### V PPCR #### [facility] ([id number]) [address] [place] [address] [address] [place] [address] Specific gravity (U) [Rel density] 1.025 Normal 1.003-1.03 5 [facility] Comment on above: Performed By: #### V PPCR #### [facility] ([id number]) [address] [facility] [address] [place] [address] SQUAMOUS EPITHELIUM 40 /hpf High 0-5 [facility] Comment on above: Performed By: #### V PPCR #### [facility] ([id number]) [facility] [address] [place] [address] TURBIDITY HAZY Abnormal CLEAR [facility] Comment on above: Performed By: #### V PPCR #### [facility] ([id number]) [address] [facility] [address] [place] [address] Urobilinogen Qn (U) 0.2 {Krishna'U}/dL Normal <1.1 [facility] Comment on above: Performed By: #### V PPCR #### [facility] ([id number]) [address] [facility] [address] [place] [address] W.B.CELLS 18 /hpf High 0-5 [facility] Comment on above: Performed By: #### V PPCR #### [facility] ([id number]) [address] [facility] [address] [place] [address] US PREG TRANSABD FU PER FETU on 07-07-2024 US PREG TRANSABD FU PER FETU US PREG TRA NSABD FU PER FETU HISTORY: Vaginal bleeding in COMPARISON: 05/15/2024 EVALUATION: Number of fetuses: One heart rate: 148 bpm Presentation: Transverse, head maternal left Placenta: Posterior AMNIOTIC FLUID: Subjectively within normal limits. BIOMETRY: BPD: 4.29 cm, 19 weeks 0 days (16.4%) HC: 16.15 cm, 19 weeks 0 days (8.8%) AC: 14.60 cm, 19 weeks 6 days (46.1%) FL: 3.20 cm, 20 weeks 0 days (45.6%) OFD: 5.80 cm CI: 73.96 (normal 70.00-86.00) FL/BPD: 74.48 (normal 71.0-87.0) HC/AC: 1.11 (normal 1.08-1.26) FL/AC: 21.88 (normal 20.00-24.00) FL/HC: 19.79 (normal 16.40-18.94) EFW 313 g (11 ounces) EFW percentile 41.7% GESTATIONAL AGE: KARTIK: 11/24/[birth year]24 KARTIK (US today): 11/27/2024 ANATOMY: Anatomy not evaluated on today's study. CERVIX UTERUS ADNEXA: Cervix: Not evaluated on today's study Uterus: Gravid uterus Left ovary: Left ovary measures 2.4 x 3.2 x 1.9 cm. Right ovary: Right ovary measures 2.6 x 3.6 x 1.5 cm. Cul-de-sac: No fluid seen Adnexa: No adnexal mass or fluid collection seen COMMENTS: Obstetrical ultrasound, while an excellent imaging modality for the fetus, cannot detect all structural abnormalities all the time. IMPRESSION: * Single live intrauterine with detailed biometric measurements provided above. 36 Finalized by Obi Shah MD on 07/07/2024 2:54 PM Normal [facility] RAPID STREP SCR NURSINGon S. pyogenes Ag EIA Ql (Throat) Positive Abnormal NEG [facility] Comment on above: Performed By: #### C #### [facility] ([id number]) [address] [facility], [address] [place] [address] SARS/FLU A+B/RS[facility] SARS/FLU A+B/RSV by NAAT/Molecular FLU A PCR Positive (qualifier value) FLU B PCR Negative (qualifier value) RSV by PCR Negative (qualifier value) SARS CoV 2 Not detected (qualifier value) NOTE The Xpert Xpress SARS-CoV-2/Flu/RSV Plus test is a rapid, multiplexed real-time RT-PCR test intended for the simultaneous qualitative detection and differentiation of SARS-CoV-2, influenza A, influenza B and respiratory syncytial virus (RSV) viral RNA from individuals suspected of respiratory viral infection consistent with COVID-19 by their healthcare provider. This test has not been validated in asymptomatic patients. The Xpert Xpress SARS-CoV-2 test is intended for use by qualified and trained operators who are performing tests using either [employer] or [employer] systems and is limited to laboratories that meet the CLIA requirements to perform high and moderate complexity tests. The Xpert Xpress SARS-CoV-2/Flu/RSV Plus is only for use under the Food and Drug Administration's Emergency Use Authorization. Results are for the simultaneous detection and differentiation of SARS-CoV-2, influenza A, influenza B and RSV nucleic acids in clinical specimens. SARS-CoV-2, influenza A, influenza B and RSV RNA identified by this test are generally detectable in upper respiratory samples during the acute phase of infection. Positive results are indicative of the presence of the identified virus, but do not rule out bacterial infection or co-infection with other pathogens not detected by this test. Clinical correlation with patient history and other diagnostic information is necessary to determine patient infection status. The agent detected may not be the definite cause of disease. Negative results do not preclude SARS-CoV-2, influenza A, influenza B and RSV infection and should not be used as the sole basis for treatment or other patient management decisions. Negative results must be combined with clinical observations, patient history and epidemiological information. An Invalid result may occur with specimen-associate d inhibition unable to be resolved with specimen repeat. Fact Sheet for Healthcare Providers: https://www.fda.go v/media/029752/jerrod nload Fact Sheet for Patients: https://www.fda.go v/media/737002/jerrod nload Normal [facility] Comment on above: Performed By: #### C GS #### [facility] ([id number]) [address] [place] [address] BASIC METABOLIC PANLon 05-15 Anion gap [Moles/Vol] 6 mmol/L Normal 5-15 [facility] Comment on above: Performed By: #### C GS #### [facility] ([id number]) [address] [place] [address] Calcium [Mass/Vol] 9.8 mg/dL Normal 8.5-10.5 [facility] Comment on above: Performed By: #### C GS #### [facility] ([id number]) [address] [place] [address] Chloride [Moles/Vol] 105 mmol/L Normal 98-109 [facility] Comment on above: Performed By: #### C GS #### [facility] ([id number]) [address] [place] [address] CO2 [Moles/Vol] 23 mmol/L Normal 22-32 [facility] Comment on above: Performed By: #### C GS #### [facility] ([id number]) [address] [place] [address] Creatinine [Mass/Vol] 0.56 mg/dL Normal 0.40-1.00 [facility] Comment on above: Result Comment: METH OD TRACEABLE TO IDMS STANDARD Performed By: #### C GS #### [facility] ([id number]) [address], [address] [place] [address] eGFR (CKD-EPI) NON-RACE DEPENDENT >90 Normal >59 [facility] Comment on above: Result Comment: Reported eGFR is based on the CKD-EPI 2020 equation that does not use a race coefficient. Performed By: #### C GS #### [facility] ([id number]) [address] [place] [address] Glucose [Mass/Vol] 88 mg/dL Normal 65-99 [facility] Comment on above: Performed By: #### C GS #### [facility] ([id number]) [address] [place] [address] Potassium [Moles/Vol] 3.9 mmol/L Normal 3.5-5.0 [facility] Comment on above: Performed By: #### C GS #### [facility] ([id number]) [address] [place] [address] Sodium [Moles/Vol] 134 mmol/L Normal 134-146 [facility] Comment on above: Performed By: #### C GS #### [facility] ([id number]) [address] [place] [address] Urea nitrogen [Mass/Vol] 8 mg/dL Normal 5-23 [facility] Comment on above: Performed By: #### C GS #### [facility] ([id number]) [address] [place] [address] CBC AND AUTO DIFFon 20 25 ABSOLUTE BASOPHIL 0.0 X10E9/L Normal 0.0-0.2 [facility] Comment on above: Performed By: #### C GS #### [facility] ([id number]) [address], [address] [place] [address] ABSOLUTE NEUTROPHIL 6.6 X10E9/L Normal 1.5-6.6 [facility] Comment on above: Performed By: #### C GS #### [facility] ([id number]) [address], [address] [place] [address] Basophils/100 WBC (Bld) 0.5 % Normal [facility] Comment on above: Performed By: #### C GS #### [facility] ([id number]) [address], [address] [place] [address] Eosinophils (Bld) [#/Vol] 0.0 10*3/uL Normal 0.0-0.4 [facility] Comment on above: Performed By: #### C GS #### [facility] ([id number]) [address], [address] [place] [address] Eosinophils/100 WBC (Bld) 0.4 % Normal [facility] Comment on above: Performed By: #### C GS #### [facility] ([id number]) [address] [place] [address] Erythrocyte distribution width (RBC) [Ratio] 14.2 % Normal 11.5-15.0 [facility] Comment on above: Performed By: #### C GS #### [facility] ([id number]) [address] [place] [address] Hematocrit (Bld) [Volume fraction] 37.8 % Normal 35-47 [facility] Comment on above: Performed By: #### C GS #### [facility] ([id number]) [address] [address] [place] [address] Hemoglobin (Bld) [Mass/Vol] 13.0 g/dL Normal 11.7-15. 5 [facility] Comment on above: Performed By: #### C GS #### [facility] ([id number]) [address] [address] [place] [address] Lymphocytes (Bld) [#/Vol] 1.8 10*3/uL Normal 1.0-3.5 [facility] Comment on above: Performed By: #### C GS #### [facility] ([id number]) [address] [address] [place] [address] Lymphocytes/100 WBC (Bld) 20.4 % Normal [facility] Comment on above: Performed By: #### C GS #### [facility] ([id number]) [address] [place] [address] MCH (RBC) [Entitic mass] 27.8 pg Normal 27-34 [facility] Comment on above: Performed By: #### C GS #### [facility] ([id number]) [address], [address] [place] [address] MCHC (RBC) [Mass/Vol] 34.3 g/dL Normal 32-36 [facility] Comment on above: Performed By: #### C GS #### [facility] ([id number]) [address] [place] [address] MCV (RBC) [Entitic vol] 81 fL Normal 80-100 [facility] Comment on above: Performed By: #### C GS #### [facility] ([id number]) [address] [place] [address] Monocytes (Bld) [#/Vol] 0.4 10*3/uL Normal 0-0.9 [facility] Comment on above: Performed By: #### C GS #### [facility] ([id number]) [address] [place] [address] Monocytes/100 WBC (Bld) 4.2 % Normal [facility] Comment on above: Performed By: #### C GS #### [facility] ([id number]) [address], [address] [place] [address] Neutrophils/100 WBC (Bld) 74.5 % Normal [facility] Comment on above: Performed By: #### C GS #### [facility] ([id number]) [address] [place] [address] Platelet mean volume (Bld) [Entitic vol] 9.1 fL Normal 7-12 [facility] Comment on above: Performed By: #### C GS #### [facility] ([id number]) [address] [facility] [address] [place] [address] Platelets (Bld) [#/Vol] 269 10*3/uL Normal 150-450 [facility] Comment on above: Performed By: #### C GS #### [facility] ([id number]) [address] [place] [address] RBC COUNT 4.66 X10E12/L Normal 3.80-5.20 [facility] Comment on above: Performed By: #### C GS #### [facility] ([id number]) [address] [place] [address] WBC (Bld) [#/Vol] 8.8 10*3/uL Normal 4.0-11.0 [facility] Comment on above: Performed By: #### C GS #### [facility] ([id number]) [address] [place] [address] CHLAMYDIA/GC BY PCRon 2024 CHLAMYDIA/GC BY PCR SPECIMEN SOURCE CLEAN CATCH MIDSTREAM URINE CHLAMYDIA DNA(PCR) Negative (qualifier value) Chlamydia trachomatis not detected by nucleic acid amplification. This does not exclude the possibility of infection because results are dependent on adequate specimen collection. GONORRHOEAE DNA(PCR) Negative (qualifier value) Neisseria gonorrhoeae not detected by nucleic acid amplification. This does not exclude the possibility of infection because results are dependent on adequate specimen collection. Normal [facility] Comment on above: Performed By: #### C GS #### [facility] ([id number]) [address] [address] HCG ( test) Ql (U)o n 05-15-2024 Beta HCG ( test) Ql (U) Positive Abnormal NEG [facility] Comment on above: Performed By: #### D JARAMILLO #### [facility] ([id number]) [address] [place] [address] HCG.beta subunit IA 3rd IS Q non 05-15-2024 HCG.beta subunit Qn 448779 m[IU]/mL Normal [facility] Comment on above: Result Comment: NEW REFERENCE [...] or nontrophoblastic neoplasms. Performed By: #### C GS #### [facility] ([id number]) [address] [facility] [place] [address] URINE CULTUREon 05-15-2024 Bacteria identified Cx Nom (U) CULTURE RESULTS >100,000 ORGANISMS/ML NORMAL UROGENITAL ALEX Normal [facility] Comment on above: Performed By: #### C GS #### [facility] ([id number]) [address] [place] [address] URN MACROSCOPIC NURon 2024 BILIRUBIN ELOISA Negative Normal NEG [facility] Comment on above: Performed By: #### D JARAMILLO #### [facility] ([id number]) [address] [place] [address] BLOOD/HGB ELOISA Negative Normal NEG [facility] Comment on above: Performed By: #### D JARAMILLO #### [facility] ([id number]) [address] [place] [address] GLUCOSE ELOISA Negative Normal NEG [facility] Comment on above: Performed By: #### D JARAMILLO #### [facility] ([id number]) [address] [place] [address] KETONES ELOISA Negative Normal NEG [facility] Comment on above: Performed By: #### D JARAMILLO #### [facility] ([id number]) [address] [place] [address] LEUKOCYTE ESTERASE ELOISA Large Abnormal NEG [facility] Comment on above: Performed By: #### D JARAMILLO #### [facility] ([id number]) [address] [place] [address] NITRITE ELOISA Negative Normal NEG [facility] Comment on above: Performed By: #### D JARAMILLO #### [facility] ([id number]) [address] [place] [address]68[address] PH ELOISA 6.0 Normal 5.0-8.5 [facility] Comment on above: Performed By: #### D JARAMILLO #### [facility] ([id number]) [address] [place] [address] PROTEIN ELOISA Negative Normal NEG [facility] Comment on above: Performed By: #### D JARAMILLO #### [facility] ([id number]) [address] [place] [address] SPECIFIC GRAVITY ELOISA >=1.030 Normal 1.003-[address] [place] [address] Comment on above: Performed By: #### D JARAMILLO #### [facility] ([id number]) [address] [place] [address] UROBILINOGEN ELOISA 1.0 eu/dL Normal <1.1 [facility] Comment on above: Performed By: #### D JARAMILLO #### [facility] ([id number]) [address] [place] [address] US PREG LESS THAN 14 WKS SIN GLEon 05-15-2024 US PREG LESS THAN 14 WKS SINGLE US PREG LESS THAN 14 WKS SINGLE US PREG LESS THAN 14 WKS SINGLE: 05/15/2024 3:42 PM Clinical: Bleeding in early . Real-time transabdominal sonography pelvis performed.. No comparison. There is a single intrauterine with cardiac activity 152 beats per minute. [place]-rump length of 5.9 cm corresponds to 12 week 3 day gestation. Amount amniotic fluid is normal. Placenta not well seen due to early gestational age. Maternal ovaries are unremarkable. No cul-de-sac fluid seen. Impression: * Single intrauterine 12 week 3 day gestation with cardiac activity. * Ultrasound KARTIK 11/24/2024. 58 Finalized by Fernandez Hernandez MD on 05/15/2024 4:06 PM Normal [facility] VAGINITIS PANEL PCRon 2024 VAGINITIS PANEL PCR BACT. VAGINOSIS DNA Detected (qualifier value) Qualitative results are reported based on detection and quantitation of targeted organism markers which include: Lactobacillus spp. (L. crispatus and L. jensenii), Gardnerella vaginalis, Atopobium vaginae, Bacterial Vaginosis Associated Bacteria-2 (BVAB-2) and Megasphaera-1 MIGUEL SPECIES DNA Not detected (qualifier value) Miguel species not detected include: C. albicans, C. tropicalis, C. parapsilosis or C. dubliniensis MIGUEL KRUSEI DNA Not detected (qualifier value) No Miguel krusei detected MIGUEL GLABRATA DNA Not detected (qualifier value) No Miguel glabrata detected TRICHOMONAS VAG DNA Not detected (qualifier value) No Trichomonas vaginalis detected NOTE BD MAX Vaginal Panel has not been evaluated for patients under 18 years old. Results for these patients should be reviewed and assessed in accordance with clinical presentation to determine patient diagnosis. Normal [facility] Comment on above: Performed By: #### C #### [facility] ([id number]) [address] [facility] [facility] [place] [address] XR CHEST 2 VWSon 03-15-2024 XR CHEST 2 VWS XR CHEST 2 VWS XR CHEST 2 VWS INDICATION: Persistent cough COMPARISON: X-ray 06/23/2022 FINDINGS: Cardiomediastinal silhouette and pulmonary vasculature are within normal limits. Lungs and pleural space are clear. There is no pleural effusion or pneumothorax. IMPRESSION: No acute cardiopulmonary process. 32 Finalized by Ravinder Roca on 03/15/2024 3:56 PM Normal [facility] CBC AND AUTO DIFFon 11-27-19 ABSOLUTE BASOPHIL 0.0 X10E9/L Normal 0.0-0.2 [facility] Comment on above: Performed By: #### D JARAMILLO #### [facility] ([id number]) [address] [place] [address] ABSOLUTE NEUTROPHIL 6.4 X10E9/L Normal 1.5-6.6 [facility] Comment on above: Performed By: #### D JARAMILLO #### [facility] ([id number]) [address] [place] [address] Basophils/100 WBC (Bld) 0.2 % Normal [facility] Comment on above: Performed By: #### D JARAMILLO #### [facility] ([id number]) [address] [place] [address] Eosinophils (Bld) [#/Vol] 0.0 10*3/uL Normal 0.0-0.4 [facility] Comment on above: Performed By: #### D JARAMILLO #### [facility] ([id number]) [address] [place] [address] Eosinophils/100 WBC (Bld) 0.3 % Normal [facility] Comment on above: Performed By: #### D JARAMILLO #### [facility] ([id number]) [address] [place] [address] Erythrocyte distribution width (RBC) [Ratio] 13.9 % Normal 11.5-15.0 [facility] Comment on above: Performed By: #### D JARAMILLO #### [facility] ([id number]) [address] [place] [address] Hematocrit (Bld) [Volume fraction] 31.9 % Low 35-47 [facility] Comment on above: Performed By: #### D JARAMILLO #### [facility] ([id number]) [address] [place] [address] Hemoglobin (Bld) [Mass/Vol] 11.0 g/dL Low 11.7-15. 5 [facility] Comment on above: Performed By: #### D JARAMILLO #### [facility] ([id number]) [address] [place] [address] Lymphocytes (Bld) [#/Vol] 2.0 10*3/uL Normal 1.0-3.5 [facility] Comment on above: Performed By: #### D JARAMILLO #### [facility] ([id number]) [address] [place] [address] Lymphocytes/100 WBC (Bld) 21.9 % Normal [facility] Comment on above: Performed By: #### D JARAMILLO #### [facility] ([id number]) [address] [place] [address] MCH (RBC) [Entitic mass] 29.5 pg Normal 27-34 [facility] Comment on above: Performed By: #### D JARAMILLO #### [facility] ([id number]) [address] [place] [address] [place] [address] MCHC (RBC) [Mass/Vol] 34.4 g/dL Normal 32-36 [facility] Comment on above: Performed By: #### D JARAMILLO #### [facility] ([id number]) [address] [place] [address] MCV (RBC) [Entitic vol] 86 fL Normal 80-100 [facility] Comment on above: Performed By: #### D JARAMILLO #### [facility] ([id number]) [address] [place] [address]71 Monocytes (Bld) [#/Vol] 0.6 10*3/uL Normal 0-0.9 [facility] Comment on above: Performed By: #### D JARAMILLO #### [facility] ([id number]) [address] [place] [address] 8[address]32 Monocytes/100 WBC (Bld) 6.8 % Normal [facility] Comment on above: Performed By: #### D JARAMILLO #### [facility] ([id number]) [address] [place] [address]99 Neutrophils/100 WBC (Bld) 70.8 % Normal [facility] Comment on above: Performed By: #### D JARAMILLO #### [facility] ([id number]) [address] [place] [address] 03958 Platelet mean volume (Bld) [Entitic vol] 8.6 fL Normal 7-12 [facility] Comment on above: Performed By: #### D JARAMILLO #### [facility] ([id number]) [address] [place] [address] Platelets (Bld) [#/Vol] 205 10*3/uL Normal 150-450 [facility] Comment on above: Performed By: #### D JARAMILLO #### [facility] ([id number]) [address] [place] [address] 08312 RBC COUNT 3.72 X10E12/L Low 3.80-5.20 [facility] Comment on above: Performed By: #### D JARAMILLO #### [facility] ([id number]) [address] [place] [address] 14643 WBC (Bld) [#/Vol] 9.0 10*3/uL Normal 4.0-11.0 [facility] Comment on above: Performed By: #### D JARAMILLO #### [facility] ([id number]) [address] [place] [address] 63453 COMPREHENSIVE METABOLIC PANE Steven 11-27-2023 Albumin [Mass/Vol] 3.0 g/dL Low 3.2-5.3 [facility] Comment on above: Performed By: #### D JARAMILLO #### [facility] ([id number]) [address] [place] [address] 88108 ALP [Catalytic activity/Vol] 149 U/L High 39-130 [facility] Comment on above: Performed By: #### D JARAMILLO #### [facility] ([id number]) [address] [place] [address] 50571 ALT [Catalytic activity/Vol] 13 U/L Normal 0-31 [facility] Comment on above: Performed By: #### D JARAMILLO #### [facility] ([id number]) [address] [place] [address] 77324 Anion gap [Moles/Vol] 6 mmol/L Normal 5-15 [facility] Comment on above: Performed By: #### D JARAMILLO #### [facility] ([id number]) [address] [place] [address] 58941 AST [Catalytic activity/Vol] 16 U/L Normal 0-41 [facility] Comment on above: Performed By: #### D JARAMILLO #### [facility] ([id number]) [address] [place] [address] 62379 Bilirubin [Mass/Vol] 0.6 mg/dL Normal 0.3-1.2 [facility] Comment on above: Performed By: #### D JARAMILLO #### [facility] ([id number]) [address] [place] [address]18 Calcium [Mass/Vol] 8.4 mg/dL Low 8.5-10.5 [facility] Comment on above: Performed By: #### D JARAMILLO #### [facility] ([id number]) [address] [place] [address] 70473 Chloride [Moles/Vol] 106 mmol/L Normal 98-109 [facility] Comment on above: Performed By: #### D JARAMILLO #### [facility] ([id number]) [address] [place] [address] 92515 CO2 [Moles/Vol] 23 mmol/L Normal 22-32 [facility] Comment on above: Performed By: #### D JARAMILLO #### [facility] ([id number]) [address] [place] [address] 74444 Creatinine [Mass/Vol] 0.51 mg/dL Normal 0.40-1.00 [facility] Comment on above: Result Comment: METH OD TRACEABLE TO IDMS STANDARD Performed By: #### D JARAMILLO #### [facility] ([id number]) [address] [place] [address] [place] [address] eGFR (CKD-EPI) NON-RACE DEPENDENT >90 Normal >59 [facility] Comment on above: Result Comment: Reported eGFR is based on the CKD-EPI 2020 equation that does not use a race coefficient. Performed By: #### D JARAMILLO #### [facility] ([id number]) [address] [place] [address] 69401 Glucose [Mass/Vol] 82 mg/dL Normal 65-99 [facility] Comment on above: Performed By: #### D JARAMILLO #### [facility] ([id number]) [address] [place] [address] 69657 Potassium [Moles/Vol] 3.8 mmol/L Normal 3.5-5.0 [facility] Comment on above: Performed By: #### D JARAMILLO #### [facility] ([id number]) [address] [place] [address] 89389 Protein [Mass/Vol] 6.7 g/dL Normal 6.0-8.0 [facility] Comment on above: Performed By: #### D JARAMILLO #### [facility] ([id number]) [address] [place] [address] 07781 Sodium [Moles/Vol] 135 mmol/L Normal 134-146 [facility] Comment on above: Performed By: #### D JARAMILLO #### [facility] ([id number]) [address] [place] [address] 57818 Urea nitrogen [Mass/Vol] 5 mg/dL Normal 5-23 [facility] Comment on above: Performed By: #### D JARAMILLO #### [facility] ([id number]) [address] [place] [address] 13695 LDH [Catalytic activity/Vol] on 11-27-2023 LDH 68 U/L Low 100-235 [facility] Comment on above: Performed By: #### D JARAMILLO #### [facility] ([id number]) [address] [place] [address] 76307 PROTEIN CREAT RATIOon 2023 RANDOM URINE PROTEIN 150 mg/L High <120 [facility] Comment on above: Performed By: #### D JARAMILLO #### [facility] ([id number]) [address] [place] [address] 51658 U/PRO/EGG BUYER RATIO CALC 0.12 Normal <0.2 [facility] Comment on above: Result Comment: Neph rotic Syndrome is associated with ratios >3.5 Performed By: #### D JARAMILLO #### [facility] ([id number]) [address] [place] [address] 81376 URINE CREATININE,RDM 128.08 mg/dL Normal [facility] Comment on above: Performed By: #### D JARAMILLO #### [facility] ([id number]) [address] [place] [address] 37136 URIC ACIDon 11-27-2023 Urate [Mass/Vol] 3.6 mg/dL Normal 2.6-7.2 [facility] Comment on above: Performed By: #### D JARAMILLO #### [facility] ([id number]) [address] [place] [address] 83195 CHLAMYDIA/GC BY PCRon 2023 CHLAMYDIA/GC BY PCR [...] are dependent on adequate specimen collection. Normal [facility] Comment on above: Performed By: #### C GS #### [facility] ([id number]) [address] [place] [address], [address] [place] [address] DRUG SCREEN, URINEon 024 AMPHETAMINE/METHAMP Negative Normal NEG [facility] Comment on above: Result Comment: AMPH /METH screening cut off = 1000 ng/mL Performed By: #### D JARAMILLO #### [facility] ([id number]) [address] [place] [address] 38444 BARBITURATES Negative Normal NEG [facility] Comment on above: Result Comment: Jami iturates screening cut off value = 200 ng/mL Performed By: #### D JARAMILLO #### [facility] ([id number]) [address] [place] [address] 68050 BENZODIAZEPINES Negative Normal NEG [facility] Comment on above: Result Comment: Hunter odiazepines screening cut off value = 200 ng/mL Performed By: #### D JARAMILLO #### [facility] ([id number]) [address] [place] [address] 42501 CANNABINOIDS Negative Normal NEG [facility] Comment on above: Result Comment: Latha abinoids/THC screening cut off value = 50 ng/mL Performed By: #### D JARAMILLO #### [facility] ([id number]) [address] [place] [address] 65690 COCAINE METABOLITE Negative Normal NEG [facility] Comment on above: Result Comment: Coca ine screening cut off value = 300 ng/mL Performed By: #### D JARAMILLO #### [facility] ([id number]) [address] [place] [address] 18760 ECSTASY Negative Normal [facility] Comment on above: Result Comment: Ecst asy screening cut off value = 500 ng/mL This report is intended for use in clinical monitoring or management of patients. Performed By: #### D JARAMILLO #### [facility] ([id number]) [address] [place] [address] 66689 METHADONE Negative Normal [facility] Comment on above: Result Comment: Meth adone screening cut off value = 300 ng/mL. Performed By: #### D JARAMILLO #### [facility] ([id number]) [address] [place] [address] 15700 OPIATES Negative Normal [facility] Comment on above: Result Comment: Opia olivia screening cut off value = 300 ng/mL NOTE: This test is used for the detection of codeine, hydrocodone (>1000 ng/mL), morphine and hydromorphone (>900 ng/mL) in urine. Performed By: #### D JARAMILLO #### [facility] ([id number]) [address] [place] [address] 77146 OXYCODONE Negative Normal [facility] Comment on above: Result Comment: Oxyc odone screening cut off value = 300 ng/mL NOTE: This test is used for the detection of oxycodone and oxymorphone in urine. Performed By: #### D JARAMILLO #### [facility] ([id number]) [address] [place] [address] 23982 PHENCYCLIDINE Negative Normal NEG [facility] Comment on above: Result Comment: Phen cyclidine screening cut off value = 25 ng/mL Performed By: #### D JARAMILLO #### [facility] ([id number]) [address] [place] [address] 99772 Fibronectin. Ql (Vag fl d)on 11-17-2023 FIBRONECTIN Negative Normal NEG [facility] Comment on above: Performed By: #### 2 0404-0 #### [facility] ([id number]) [address] [place] [id number] #### VPPCR #### [facility] ([id number]) [address] [place] [address], [address] [place] [address] STREP B SCREEN CULTUREon S. agalactiae Org specific c x Ql (Vag+Rectum) CULTURE RESULTS NEGATIVE FOR GROUP B STREPTOCOCCUS BY NUCLEIC ACID AMPLIFICATION Normal [facility] Comment on above: Performed By: #### D JARAMILLO #### [facility] ([id number]) [address] [place] [id number] URINALYSISon 11-17-2023 Bilirubin Ql (U) SMALL Abnormal NEG [facility] Comment on above: Result Comment: Not confirmed, interpret positive results with caution. Performed By: #### U A #### [facility] ([id number]) [address] [place] [address] 26439 BLOOD/HGB Negative Normal NEG [facility] Comment on above: Performed By: #### U A #### [facility] ([id number]) [address] [place] [address] 83300 Color (U) YELLOW Normal YELLOW [facility] Comment on above: Performed By: #### U A #### [facility] ([id number]) [address] [place] [address] 95950 Glucose Ql (U) Negative Normal NEG [facility] Comment on above: Performed By: #### U A #### [facility] ([id number]) [address] [place] [address] 45872 Ketones Ql (U) >80 Abnormal NEG [facility] Comment on above: Performed By: #### U A #### [facility] ([id number]) [address] [place] [address] 51621 Leukocyte esterase Test stri p Ql (U) MODERATE Abnormal NEG [facility] Comment on above: Performed By: #### U A #### [facility] ([id number]) [address] [place] [address] 26430 Nitrite Ql (U) Negative Normal NEG [facility] Comment on above: Performed By: #### U A #### [facility] ([id number]) [address] [place] [address] 86393 pH (U) 6.0 [pH] Normal 5.0-8.5 [facility] Comment on above: Performed By: #### U A #### [facility] ([id number]) [address] [place] [address] 57695 Protein Ql (U) 30 mg/dL Abnormal NEG [facility] Comment on above: Performed By: #### U A #### [facility] ([id number]) [address] [place] [address] 51342 R.B.CELLS 0 /hpf Normal 0-5 [facility] Comment on above: Performed By: #### U A #### [facility] ([id number]) [address] [place] [address] 24506 Specific gravity (U) [Rel density] >1.030 Normal 1.003-1.03 5 [facility] Comment on above: Performed By: #### U A #### [facility] ([id number]) [address] [place] [address] 14051 SQUAMOUS EPITHELIUM 13 /hpf High 0-5 [facility] Comment on above: Performed By: #### U A #### [facility] ([id number]) [address] [place] [address] 88126 TURBIDITY CLEAR Normal CLEAR [facility] Comment on above: Performed By: #### U A #### [facility] ([id number]) [address] [place] [address] 53183 Urobilinogen Qn (U) 1.0 {Krishna'U}/dL Normal <1.1 [facility] Comment on above: Performed By: #### U A #### [facility] ([id number]) [address] [place] [address] 07504 W.B.CELLS 9 /hpf High 0-5 [facility] Comment on above: Performed By: #### U A #### [facility] ([id number]) [address] [place] [address] 13001 URINE CULTUREon 11-17-2023 Bacteria identified Cx Nom (U) CULTURE RESULTS >100,000 ORGANISMS/ML NORMAL UROGENITAL ALEX Normal [facility] Comment on above: Performed By: #### D JARAMILLO #### [facility] ([id number]) [address] [place] [address] 44712 VAGINITIS PANEL PCRon 2023 VAGINITIS PANEL PCR BACT. VAGINOSIS DNA Unable to analyze due to inhibitors present in sample Qualitative results are reported based on detection and quantitation of targeted organism markers which include: Lactobacillus spp. (L. crispatus and L. jensenii), Gardnerella vaginalis, Atopobium vaginae, Bacterial Vaginosis Associated Bacteria-2 (BVAB-2) and Megasphaera-1 MIGUEL SPECIES DNA Unable to analyze due to inhibitors present in sample MIGUEL KRUSEI DNA Unable to analyze due to inhibitors present in sample MIGUEL GLABRATA DNA Unable to analyze due to inhibitors present in sample TRICHOMONAS VAG DNA Unable to analyze due to inhibitors present in sample NOTE BD MAX Vaginal Panel has not been evaluated for patients under 18 years old. Results for these patients should be reviewed and assessed in accordance with clinical presentation to determine patient diagnosis. Normal [facility] Comment on above: Performed By: #### 2 0404-0 #### [facility] ([id number]) [address] [place] [address], [place] [address] #### VPPCR #### [facility] ([id number]) [address], [address] [place] [address] [place] BIOPHYSICAL PROFILE FET W O NSTon 10-22-2023 US BIOPHYSICAL PROFILE FET W O NST US BIOPHYSICAL PROFILE FET WO NST [...] a score of 8 out of 8. 41 Finalized by Danny Mcdonough MD on 10/22/2023 5:06 AM [facility] CHLAMYDIA/GC BY PCRon 2023 CHLAMYDIA/GC BY [...] are dependent on adequate specimen collection. Normal [facility] Comment on above: Performed By: #### C GS #### [facility] ([id number]) [address], [address] [place] [address] DRUG SCREEN, URINEon 024 AMPHETAMINE/METHAMP Negative Normal NEG [facility] Comment on above: Result Comment: AMPH /METH screening cut off = 1000 ng/mL Performed By: #### D JARAMILLO #### [facility] ([id number]) [address] [place] [address] 89962 BARBITURATES Negative Normal NEG [facility] Comment on above: Result Comment: Jami iturates screening cut off value = 200 ng/mL Performed By: #### D JARAMILLO #### [facility] ([id number]) [address] [place] [address] [place] [address] BENZODIAZEPINES Negative Normal NEG [facility] Comment on above: Result Comment: Hunter odiazepines screening cut off value = 200 ng/mL Performed By: #### D JARAMILLO #### [facility] ([id number]) [address] [place] [address] 78393 CANNABINOIDS Negative Normal NEG [facility] Comment on above: Result Comment: Latha abinoids/THC screening cut off value = 50 ng/mL Performed By: #### D JARAMILLO #### [facility] ([id number]) [address] [place] [address] 85229 COCAINE METABOLITE Negative Normal NEG [facility] Comment on above: Result Comment: Coca ine screening cut off value = 300 ng/mL Performed By: #### D JARAMILLO #### [facility] ([id number]) [address] [place] [address] 18010 ECSTASY Negative Normal NEG [facility] Comment on above: Result Comment: Ecst asy screening cut off value = 500 ng/mL This report is intended for use in clinical monitoring or management of patients. Performed By: #### D JARAMILLO #### [facility] ([id number]) [address] [place] [address] 39932 METHADONE Negative Normal NEG [facility] Comment on above: Result Comment: Meth adone screening cut off value = 300 ng/mL. Performed By: #### D JARAMILLO #### [facility] ([id number]) [address] [place] [address] 26462 OPIATES Negative Normal NEG [facility] Comment on above: Result Comment: Opia olivia screening cut off value = 300 ng/mL NOTE: This test is used for the detection of codeine, hydrocodone (>1000 ng/mL), morphine and hydromorphone (>900 ng/mL) in urine. Performed By: #### D JARAMILLO #### [facility] ([id number]) [address] [place] [address] 95261 OXYCODONE Negative Normal NEG [facility] Comment on above: Result Comment: Oxyc odone screening cut off value = 300 ng/mL NOTE: This test is used for the detection of oxycodone and oxymorphone in urine. Performed By: #### D JARAMILLO #### [facility] ([id number]) [address] [place] [address] 71418 PHENCYCLIDINE Negative Normal NEG [facility] Comment on above: Result Comment: Phen cyclidine screening cut off value = 25 ng/mL Performed By: #### D JARAMILLO #### [facility] ([id number]) [address] [place] [address] 17021 URINALYSISon 10-17-2023 Bilirubin Ql (U) Negative Normal NEG [facility] Comment on above: Performed By: #### U A #### [facility] ([id number]) [address] [place] [address] 91502 BLOOD/HGB Negative Normal NEG [facility] Comment on above: Performed By: #### U A #### [facility] ([id number]) [address] [place] [address] 71523 CA OXALATE CRYSTALS 4 Abnormal NONE [facility] Comment on above: Performed By: #### U A #### [facility] ([id number]) [address] [place] [address] 11591 Color (U) YELLOW Normal YELLOW [facility] Comment on above: Performed By: #### U A #### [facility] ([id number]) [address] [place] [address] 19382 Glucose Ql (U) Negative Normal NEG [facility] Comment on above: Performed By: #### U A #### [facility] ([id number]) [address] [place] [address] 69953 Ketones Ql (U) Trace Abnormal NEG [facility] Comment on above: Performed By: #### U A #### [facility] ([id number]) [address] [place] [address] 64067 Leukocyte esterase Test stri p Ql (U) SMALL Abnormal NEG [facility] Comment on above: Performed By: #### U A #### [facility] ([id number]) [address] [place] [address] [place] [address] Nitrite Ql (U) Negative Normal NEG [facility] Comment on above: Performed By: #### U A #### [facility] ([id number]) [address] [place] [address] 90470 pH (U) 6.5 [pH] Normal 5.0-8.5 [facility] Comment on above: Performed By: #### U A #### [facility] ([id number]) [address] [place] [address] 83796 Protein Ql (U) 30 mg/dL Abnormal NEG [facility] Comment on above: Performed By: #### U A #### [facility] ([id number]) [address] [place] [address] [place] [address] R.B.CELLS 6 /hpf High 0-5 [facility] Comment on above: Performed By: #### U A #### [facility] ([id number]) [address] [place] [address] [place] [address] Specific gravity (U) [Rel density] 1.025 Normal 1.003-1.03 5 [facility] Comment on above: Performed By: #### U A #### [facility] ([id number]) [address] [place] [address] 21246 SQUAMOUS EPITHELIUM 10 /hpf High 0-5 [facility] Comment on above: Performed By: #### U A #### [facility] ([id number]) [address] [place] [address] 37136 TURBIDITY CLEAR Normal CLEAR [facility] Comment on above: Performed By: #### U A #### [facility] ([id number]) [address] [place] [address] 17573 Urobilinogen Qn (U) 2.0 {Krishna'U}/dL High <1.1 [facility] Comment on above: Performed By: #### U A #### [facility] ([id number]) [address] [place] [address] 06311 W.B.CELLS 30 /hpf High 0-5 [facility] Comment on above: Performed By: #### U A #### [facility] ([id number]) [address] [place] [address] 60542 VAGINITIS PANEL PCRon 2023 VAGINITIS PANEL PCR BACT. VAGINOSIS DNA Not detected (qualifier value) Qualitative results are reported based on detection and quantitation of targeted organism markers which include: Lactobacillus spp. (L. crispatus and L. jensenii), Gardnerella vaginalis, Atopobium vaginae, Bacterial Vaginosis Associated Bacteria-2 (BVAB-2) and Megasphaera-1 MIGUEL SPECIES DNA Not detected (qualifier value) Miguel species not detected include: C. albicans, C. tropicalis, C. parapsilosis or C. dubliniensis MIGUEL KRUSEI DNA Not detected (qualifier value) No Miguel krusei detected MIGUEL GLABRATA DNA Not detected (qualifier value) No Miguel glabrata detected TRICHOMONAS VAG DNA Not detected (qualifier value) No Trichomonas vaginalis detected NOTE BD MAX Vaginal Panel has not been evaluated for patients under 18 years old. Results for these patients should be reviewed and assessed in accordance with clinical presentation to determine patient diagnosis. Normal [facility] Comment on above: Performed By: #### V PPCR #### [facility] ([id number]) [address], [address] [place] [address] CBC AND AUTO DIFFon 09-18-19 24 ABSOLUTE BASOPHIL 0.0 X10E9/L Normal 0.0-0.2 [facility] Comment on above: Performed By: #### C OMID, 3040-3, CBCA #### [facility] ([id number]) [address] [place] [address] 59924 ABSOLUTE NEUTROPHIL 7.3 X10E9/L High 1.5-6.6 [facility] Comment on above: Performed By: #### C OMID, 3040-3, CBCA #### [facility] ([id number]) [address] [place] [address] 01063 Basophils/100 WBC (Bld) 0.3 % Normal [facility] Comment on above: Performed By: #### C OMID, 3040-3, CBCA #### [facility] ([id number]) [address] [place] [address] 22708 Eosinophils (Bld) [#/Vol] 0.0 10*3/uL Normal 0.0-0.4 [facility] Comment on above: Performed By: #### C OMID, 3040-3, CBCA #### [facility] ([id number]) [address] [place] [address] 56392 Eosinophils/100 WBC (Bld) 0.5 % Normal [facility] Comment on above: Performed By: #### C OMID, 3040-3, CBCA #### [facility] ([id number]) [address] [place] [address] 09604 Erythrocyte distribution width (RBC) [Ratio] 12.8 % Normal 11.5-15.0 [facility] Comment on above: Performed By: #### C OMID, 3039-07, CBCA #### [facility] ([id number]) [address] [place] [address] 87425 Hematocrit (Bld) [Volume fraction] 33.3 % Low 35-47 [facility] Comment on above: Performed By: #### C OMID, 3039-07, CBCA #### [facility] ([id number]) [address] [place] [address] 05080 Hemoglobin (Bld) [Mass/Vol] 12.0 g/dL Normal 11.7-15. 5 [facility] Comment on above: Performed By: #### C OMID, 3039-07, CBCA #### [facility] ([id number]) [address] [place] [address] 66508 Lymphocytes (Bld) [#/Vol] 2.0 10*3/uL Normal 1.0-3.5 [facility] Comment on above: Performed By: #### C OMID, 3039-07, CBCA #### [facility] ([id number]) [address] [place] [address] 53563 Lymphocytes/100 WBC (Bld) 20.3 % Normal [facility] Comment on above: Performed By: #### Ann-Marie ANNE, 3039-07, CBCA #### [facility] ([id number]) [address] [place] [address] 05353 MCH (RBC) [Entitic mass] 30.8 pg Normal 27-34 [facility] Comment on above: Performed By: #### C OMID, 3039-07, CBCA #### [facility] ([id number]) [address] [place] [address] 72337 MCHC (RBC) [Mass/Vol] 36.0 g/dL Normal 32-36 [facility] Comment on above: Performed By: #### C OMID, 3040-3, CBCA #### [facility] ([id number]) [address] [place] [address] 96306 MCV (RBC) [Entitic vol] 85 fL Normal 80-100 [facility] Comment on above: Performed By: #### C OMID, 3040-3, CBCA #### [facility] ([id number]) [address] [place] [address] 53990 Monocytes (Bld) [#/Vol] 0.5 10*3/uL Normal 0-0.9 [facility] Comment on above: Performed By: #### C OMID, 3040-3, CBCA #### [facility] ([id number]) [address] [place] [address] 92333 Monocytes/100 WBC (Bld) 5.2 % Normal [facility] Comment on above: Performed By: #### C OMID, 0-3, CBCA #### [facility] ([id number]) [address] [place] [address] 08952 Neutrophils/100 WBC (Bld) 73.7 % Normal [facility] Comment on above: Performed By: #### C OMID, 3040-3, CBCA #### [facility] ([id number]) [address] [place] [address] 68341 Platelet mean volume (Bld) [Entitic vol] 8.3 fL Normal 7-12 [facility] Comment on above: Performed By: #### C OMID, 3040-3, CBCA #### [facility] ([id number]) [address] [place] [address] 11596 Platelets (Bld) [#/Vol] 203 10*3/uL Normal 150-450 [facility] Comment on above: Performed By: #### C OMID, 3040-3, CBCA #### [facility] ([id number]) [address] [place] [address] 24081 RBC COUNT 3.89 X10E12/L Normal 3.80-5.20 [facility] Comment on above: Performed By: #### C OMID, 3039-07, CBCA #### [facility] ([id number]) [address] [place] [address] 77471 WBC (Bld) [#/Vol] 9.8 10*3/uL Normal 4.0-11.0 [facility] Comment on above: Performed By: #### C OMID, 3039-07, CBCA #### [facility] ([id number]) [address] [place], [place] [address] COMPREHENSIVE METABOLIC PANE [facility] 09-18-2023 Albumin [Mass/Vol] 2.9 g/dL Low 3.2-5.3 [facility] Comment on above: Performed By: #### C OMID, 3039-07, CBCA #### [facility] ([id number]) [address] [place] [address] 61814 ALP [Catalytic activity/Vol] 71 U/L Normal 39-130 [facility] Comment on above: Performed By: #### C OMID, 3039-07, CBCA #### [facility] ([id number]) [address] [place] [address] 56864 ALT [Catalytic activity/Vol] 9 U/L Normal 0-31 [facility] Comment on above: Performed By: #### C OMID, 3039-07, CBCA #### [facility] ([id number]) [address] [place] [address] 53923 Anion gap [Moles/Vol] 10 mmol/L Normal 5-15 [facility] Comment on above: Performed By: #### C OMID, 3039-07, CBCA #### [facility] ([id number]) [address] [place] [address] 15734 AST [Catalytic activity/Vol] 15 U/L Normal 0-41 [facility] Comment on above: Performed By: #### C OMID, 3039-3, CBCA #### [facility] ([id number]) [address] [place] [address] 94333 Bilirubin [Mass/Vol] 0.4 mg/dL Normal 0.3-1.2 [facility] Comment on above: Performed By: #### C OMID, 3039-3, CBCA #### [facility] ([id number]) [address] [place] [address] 66877 Calcium [Mass/Vol] 8.2 mg/dL Low 8.5-10.5 [facility] Comment on above: Performed By: #### C OMID, 3039-, CBCA #### [facility] ([id number]) [address] [place] [address] 32629 Chloride [Moles/Vol] 103 mmol/L Normal 98-109 [facility] Comment on above: Performed By: #### C OMID, 3039-07, CBCA #### [facility] ([id number]) [address] [place] [address] 77432 CO2 [Moles/Vol] 21 mmol/L Low 22-32 [facility] Comment on above: Performed By: #### C OMID, 3039-07, CBCA #### [facility] ([id number]) [address] [place] [address] 95906 Creatinine [Mass/Vol] 0.51 mg/dL Normal 0.40-1.00 [facility] Comment on above: Result Comment: METH OD TRACEABLE TO IDMS STANDARD Performed By: #### C OMID, 3039-3, CBCA #### [facility] ([id number]) [address] [place] [address] 84265 eGFR (CKD-EPI) NON-RACE DEPENDENT >90 Normal >59 [facility] Comment on above: Result Comment: Reported eGFR is based on the CKD-EPI 2020 equation that does not use a race coefficient. Performed By: #### C OMID, 3040-3, CBCA #### [facility] ([id number]) [address] [place] [address] 59130 Glucose [Mass/Vol] 92 mg/dL Normal 65-99 [facility] Comment on above: Performed By: #### C OMID, 3039-07, CBCA #### [facility] ([id number]) [address] [place] [address] 56264 Potassium [Moles/Vol] 3.7 mmol/L Normal 3.5-5.0 [facility] Comment on above: Performed By: #### C OMID, 3039-07, CBCA #### [facility] ([id number]) [address] [place] [address] 40750 Protein [Mass/Vol] 6.5 g/dL Normal 6.0-8.0 [facility] Comment on above: Performed By: #### C OMID, 3039-07, CBCA #### [facility] ([id number]) [address] [place] [address] 34027 Sodium [Moles/Vol] 134 mmol/L Normal 134-146 [facility] Comment on above: Performed By: #### C OMID, 3039-07, CBCA #### [facility] ([id number]) [address] [place] [address] 99793 Urea nitrogen [Mass/Vol] 14 mg/dL Normal 5-23 [facility] Comment on above: Performed By: #### C OMID, 3039-07, CBCA #### [facility] ([id number]) [address] [place] [address] 38849 LIPASEon 09-18-2023 Lipase [Catalytic activity/Vol] 48 U/L High 17-40 [facility] Comment on above: Performed By: #### C OMID, 3039-07, CBCA #### [facility] ([id number]) [address] [place] [address] 93559 URINE CULTUREon 09-18-2023 Bacteria identified Cx Nom (U) CULTURE RESULTS <10,000 ORGANISMS/ML NORMAL URO GENITAL ALEX Normal [facility] Comment on above: Performed By: #### 6 30-4 #### [facility] ([id number]) [address] [place] [address], [address] [place] [address] URN MACROSCOPIC NURon 2023 BILIRUBIN ELOISA Negative Normal NEG [facility] Comment on above: Performed By: #### N UM #### [facility] ([id number]) [address] [place] [address] 11232 BLOOD/HGB ELOISA Negative Normal NEG [facility] Comment on above: Performed By: #### N UM #### [facility] ([id number]) [address] [place] [address] 69113 GLUCOSE ELOISA Negative Normal NEG [facility] Comment on above: Performed By: #### N UM #### [facility] ([id number]) [address] [place] [address] 85143 KETONES ELOISA Negative Normal NEG [facility] Comment on above: Performed By: #### N UM #### [facility] ([id number]) [address] [place] [address] 35694 LEUKOCYTE ESTERASE ELOISA Negative Normal NEG [facility] Comment on above: Performed By: #### N UM #### [facility] ([id number]) [address] [place] [address] 10789 NITRITE ELOISA Negative Normal NEG [facility] Comment on above: Performed By: #### N UM #### [facility] ([id number]) [address] [place] [address] 41313 PH ELOISA 7.0 Normal 5.0-8.5 [facility] Comment on above: Performed By: #### N UM #### [facility] ([id number]) [address] [place] [address] 88542 PROTEIN ELOISA Negative Normal NEG [facility] Comment on above: Performed By: #### N UM #### [facility] ([id number]) [address] [place] [address] SPECIFIC GRAVITY ELOISA 1.020 Normal 1.003-1 .03 5 [facility] Comment on above: Performed By: #### N UM #### [facility] ([id number]) [address] [place] [address] UROBILINOGEN ELOISA 0.2 eu/dL Normal <1.1 [facility] Comment on above: Performed By: #### N UM #### [facility] ([id number]) [address] [place] [address] Glucose 1 Hr post dose gluco se [Mass/Vol]on 08-30-2023 1ST HR GTT 115 mg/dL Low 120-170 [facility] Comment on above: Performed By: #### 6 864-3, THYR, CBCA, 5196-1, 13256-1, 30766-1, 18861-4, 15243-5, 44544-7 #### [facility] ([id number]) [address] [place] [address], [address] [place] [address] Glucose 2 Hr post 75 g gluco se PO [Mass/Vol]on 08-30-2023 2ND HR GTT 75 GM LOAD 94 mg/dL Normal 70-139 [facility] Comment on above: Result Comment: According to the [place] [employer]'s current guidelines for Screening of Gestational Diabetes Mellitus a positive diagnosis for GDM is made if any of the following plasma glucose levels are exceeded: Fasting Glucose: >/=92 mg/dl 1 hr post 75g load: >/=180 mg/dl 2 hr post 75g load: >/=153 mg/dl [place] [employer] and World Health Organization recommendations for diagnosis of Diabetes in Non- adults. Random Glucose >200mg/dL Fasting Glucose >=126mg/dL Impaired Fasting Glucose 100-125mg/dL 2hr post 75g load >=200mg/dL Impaired 2hr post 75g load 140-199mg/dL Performed By: #### 6 864-3, THYR, CBCA, 5196-1, 44440-3, 91992-3, 85748-3, 10669-5, 78684-1 #### [facility] ([id number]) [address], [address] [place] [address] Glucose post fast [Mass/Vol] on 08-30-2023 FASTING GTT 71 mg/dL Normal 65-99 [facility] Comment on above: Performed By: #### 6 864-3, THYR, CBCA, 5196-1, 34467-0, 19748-1, 88867-2, 57996-2, 00572-2 #### [facility] ([id number]) [address], [address] [place] [address] PROTEIN CREAT RATIOon 2023 RANDOM URINE PROTEIN 140 mg/L High <120 [facility] Comment on above: Performed By: #### 6 864-3, THYR, CBCA, 5196-1, 14641-3, 14027-6, 98448-8, 38156-5, 91627-3 #### [facility] ([id number]) 2130 [address] [place] [address] U/PRO/EGG BUYER RATIO CALC 0.08 Normal <0.2 [facility] Comment on above: Result Comment: Neph rotic Syndrome is associated with ratios >3.5 Performed By: #### 6 864-3, THYR, CBCA, 5196-1, 95934-4, 70245-5, 49813-3, 52988-8, 90190-5 #### [facility] ([id number]) [address] [place] [address] URINE CREATININE,RDM 175.63 mg/dL Normal Pr [facility] Comment on above: Performed By: #### 6 864-3, THYR, CBCA, 5196-1, 27994-7, 25038-0, 55952-0, 00944-3, 17047-8 #### [facility] ([id number]) [address] [place] [address] CBC AND AUTO DIFFon 04-25-20 24 ABSOLUTE BASOPHIL 0.0 X10E9/L Normal 0.0-0.2 [facility] Comment on above: Performed By: #### 6 864-3, THYR, CBCA, 5196-1, 28878-8, 00534-5, 33201-4, 20815-2, 08080-9 #### [facility] ([id number]) [address] [place] [address] ABSOLUTE NEUTROPHIL 6.8 X10E9/L High 1.5-6.6 [facility] Comment on above: Performed By: #### 6 864-3, THYR, CBCA, 5196-1, 92819-8, 90807-2, 64321-6, 49945-4, 31538-3 #### [facility] ([id number]) [address], [address] [place] [address] Basophils/100 WBC (Bld) 0.3 % Normal P [facility] Comment on above: Performed By: #### 6 864-3, THYR, CBCA, 5196-1, 75167-4, 23307-6, 03272-3, 82159-9, 41317-0 #### [facility] ([id number]) [address] [place] [address] Eosinophils (Bld) [#/Vol] 0.0 10*3/uL Normal 0.0-0.4 [facility] Comment on above: Performed By: #### 6 864-3, THYR, CBCA, 5196-1, 89514-4, 80566-9, 50278-4, 75582-1, 81040-8 #### [facility] ([id number]) [address] [place] [address] Eosinophils/100 WBC (Bld) 0.5 % Normal [facility] Comment on above: Performed By: #### 6 864-3, THYR, CBCA, 5196-1, 96496-3, 10207-9, 34410-7, 01580-6, 50461-9 #### [facility] ([id number]) [address] [place] [address] Erythrocyte distribution width (RBC) [Ratio] 13.7 % Normal 11.5-15.0 [facility] Comment on above: Performed By: #### 6 864-3, THYR, CBCA, 5196-1, 07592-5, 12830-9, 66151-0, 45151-8, 18238-5 #### [facility] ([id number]) [address] [address] Hematocrit (Bld) [Volume fraction] 35.6 % Normal 35-47 [facility] Comment on above: Performed By: #### 6 864-3, THYR, CBCA, 5196-1, 50047-4, 14090-6, 47438-2, 30676-0, 24381-7 #### [facility] ([id number]) [address] [place] [address] Hemoglobin (Bld) [Mass/Vol] 12.4 g/dL Normal 11.7-15. 5 [facility] Comment on above: Performed By: #### 6 864-3, THYR, CBCA, 5196-1, 03393-7, 43787-0, 35111-4, 42240-8, 30408-9 #### [facility] ([id number]) [address] [place] [address] Lymphocytes (Bld) [#/Vol] 1.7 10*3/uL Normal 1.0-3.5 [facility] Comment on above: Performed By: #### 6 864-3, THYR, CBCA, 5196-1, 48725-2, 17038-6, 68441-6, 65396-1, 29034-6 #### [facility] ([id number]) [address] [place] [address] Lymphocytes/100 WBC (Bld) 19.1 % Normal [facility] Comment on above: Performed By: #### 6 864-3, THYR, CBCA, 5196-1, 40667-8, 18400-7, 58548-3, 31257-0, 49574-6 #### [facility] ([id number]) [address] [place] [address] MCH (RBC) [Entitic mass] 30.9 pg Normal 27-34 [facility] Comment on above: Performed By: #### 6 864-3, THYR, CBCA, 5196-1, 82922-2, 20008-6, 91992-4, 34534-3, 51063-0 #### [facility] ([id number]) [address] [place] [address] MCHC (RBC) [Mass/Vol] 34.8 g/dL Normal 32-36 [facility] Comment on above: Performed By: #### 6 864-3, THYR, CBCA, 5196-1, 82789-7, 45089-7, 35117-3, 01335-4, 14931-3 #### [facility] ([id number]) [address] [place] [address] MCV (RBC) [Entitic vol] 89 fL Normal 80-100 P [facility] Comment on above: Performed By: #### 6 864-3, THYR, CBCA, 5196-1, 29696-8, 40162-3, 38279-7, 62821-2, 62171-1 #### [facility] ([id number]) [address] [place] [address] Monocytes (Bld) [#/Vol] 0.4 10*3/uL Normal 0-0.9 [facility] Comment on above: Performed By: #### 6 864-3, THYR, CBCA, 5196-1, 45204-7, 01345-2, 26893-5, 92338-6, 97385-7 #### [facility] ([id number]) [address] [place] [address] Monocytes/100 WBC (Bld) 4.7 % Normal P [facility] Comment on above: Performed By: #### 6 864-3, THYR, CBCA, 5196-1, 00134-4, 85971-1, 12357-1, 99562-5, 14557-9 #### [facility] ([id number]) [address] [place] [address] Neutrophils/100 WBC (Bld) 75.4 % Normal [facility] Comment on above: Performed By: #### 6 864-3, THYR, CBCA, 5196-1, 80574-6, 20211-6, 75131-0, 89612-1, 16977-5 #### [facility] ([id number]) [address] [place] [address] Platelet mean volume (Bld) [Entitic vol] 9.0 fL Normal 7-12 [facility] Comment on above: Performed By: #### 6 864-3, THYR, CBCA, 5196-1, 93245-6, 43420-0, 04167-3, 55019-6, 31352-0 #### [facility] ([id number]) [address] [place] [address] Platelets (Bld) [#/Vol] 218 10*3/uL Normal 150-450 [facility] Comment on above: Performed By: #### 6 864-3, THYR, CBCA, 5196-1, 91200-1, 74764-8, 74410-7, 83798-9, 26663-7 #### [facility] ([id number]) [address] [place] [address] RBC COUNT 4.01 X10E12/L Normal 3.80-5.20 [facility] Comment on above: Performed By: #### 6 864-3, THYR, CBCA, 5196-1, 90287-0, 47584-1, 73484-5, 34101-3, 55675-7 #### [facility] ([id number]) [address], [address] [place] [address] WBC (Bld) [#/Vol] 9.0 10*3/uL Normal 4.0-11.0 [facility] Comment on above: Performed By: #### 6 864-3, THYR, CBCA, 5196-1, 20669-3, 26542-4, 57621-3, 25756-4, 94406-8 #### [facility] ([id number]) [address] [place] [address] CHLAMYDIA/GC BY PCRon 2023 CHLAMYDIA/GC BY PCR [...] are dependent on adequate specimen collection. Normal [facility] Comment on above: Performed By: #### 6 864-3, THYR, CBCA, 5196-1, 91169-0, 13943-2, 66790-8, 20090-6, 04017-3 #### [facility] ([id number]) [address], [address] [place] [address] HBV surface Ag IA Qlon 08-28 HEPATITIS B SURF AG Negative Normal NEG [facility] Comment on above: Performed By: #### 6 864-3, THYR, CBCA, 5196-1, 92697-4, 51451-7, 13737-7, 39876-2, 47101-6 #### [facility] ([id number]) [address], [address] [place] [address] HCV Ab IA on 08-29-2023 ANTI HCV W/PCR REFLX Non-Reactive Normal NRCT Pr [facility] Comment on above: Result Comment: If recent infection suspected, recommend repeat testing (>2 months). Otqwpk-gp-thnnhc ratio is <0.80. Performed By: #### 6 864-3, THYR, CBCA, 5196-1, 77859-6, 61981-6, 36577-9, 49125-2, 90043-2 #### [facility] ([id number]) [address] [place] [address], [address] [place] [address] HIV 1+2 Ab+HIV1 p24 Ag IA Ql on 08-29-2023 HIV 1 and 2 Ab/Ag Screen Non-Reactive Normal NRCT [facility] Comment on above: Result Comment: This [...] By: #### 6 864-3, THYR, CBCA, 5196-1, 17116-8, 57489-0, 86385-8, 91780-8, 03930-1 #### [facility] ([id number]) [address] [place] [address] Hemoglobin S Solubility test Ql (Bld)on 08-29-2023 SICKLE SOLUBILITY Negative Normal NEG [facility] Comment on above: Performed By: #### 6 864-3, THYR, CBCA, 5196-1, 16629-3, 27834-9, 08729-5, 20768-2, 40345-1 #### [facility] ([id number]) [address] [place] [address] Rubella virus Ab Ql (S)on RUBELLA IMMUNE IgG 1.3 AI Normal [facility] Comment on above: Result Comment: Interpretation-------- <0.8 NEGATIVE-considered Not Immune 0.8-0.9 EQUIVOCAL-consider retesting with new specimen >0.9 POSITIVE-considered Immune Performed By: #### 6 864-3, THYR, CBCA, 5196-1, 76932-5, 64645-0, 93838-9, 93732-5, 29441-8 #### [facility] ([id number]) [address] [place] [address] T. pallidum IgG+IgM IA Ql (S )on 08-29-2023 Syphilis Total <0.2 Normal 0.0-0.8 [facility] Comment on above: Result Comment: NON REACTIVE No serologic evidence of infection to Treponema pallidum (syphilis). Repeat testing may be considered in patients with suspected acute or primary syphilis in 2 to 4 weeks. Performed By: #### 6 864-3, THYR, CBCA, 5196-1, 15689-9, 70286-6, 15231-7, 73632-9, 45320-0 #### [facility] ([id number]) [address], [address] [place] [address] THYROID PROFILEon 08-29-2023 Free T4 [Mass/Vol] 0.71 ng/dL Normal 0.61-1.60 [facility] Comment on above: Performed By: #### 6 864-3, THYR, CBCA, 5196-1, 83706-4, 35892-4, 70953-2, 40864-3, 37382-8 #### [facility] ([id number]) [address] [place] [address], [address] [place] [address] TSH 2.04 uIU/mL Normal 0.49-4.67 [facility] Comment on above: Performed By: #### 6 864-3, THYR, CBCA, 5196-1, 69609-4, 26182-8, 43919-7, 21285-5, 03726-8 #### [facility] ([id number]) [address] [place] [address], [address] [place] [address] Thyroid profile includes TSH FT4on 08-29-2023 Free T4 [Mass/Vol] 0.71 ng/dL 0.61 - 1.60 ng/dL [facility] TSH Qn 2.04 m[IU]/L [facility] URINALYSISon 08-29-2023 Bilirubin Ql (U) Negative Normal NEG [facility] BLOOD/HGB Negative Normal NEG [facility] Color (U) YELLOW Normal YELLOW [facility] Glucose Ql (U) Negative Normal NEG [facility] Ketones Ql (U) Negative Normal NEG [facility] Leukocyte esterase Test stri p Ql (U) Large Abnormal NEG [facility] MUCOUS PRESENT Abnormal NONE [facility] Nitrite Ql (U) Negative Normal NEG [facility] pH (U) 6.5 [pH] Normal 5.0-8.5 [facility] Protein Ql (U) Trace Abnormal NEG [facility] R.B.CELLS 2 /hpf Normal 0-5 [facility] Specific gravity (U) [Rel density] 1.021 Normal 1.003-1.03 5 [facility] SPERM PRESENT Abnormal NONE [facility] SQUAMOUS EPITHELIUM 12 /hpf High 0-5 [facility] TURBIDITY HAZY Abnormal CLEAR [facility] Urobilinogen (U) [Mass/Vol] mg/dL Normal <1.1 [facility] W.B.CELLS 91 /hpf High 0-5 [facility] URINE CULTUREon 08-29-2023 Bacteria identified Cx Nom (U) CULTURE RESULTS 10-50,000 ORGANISMS/mL NORMAL UROGENITAL ALEX Normal [facility] Comment on above: Performed By: #### 6 864-3, THYR, CBCA, 5196-1, 19559-6, 66201-4, 88220-8, 44344-7, 46155-3 #### [facility] ([id number]) [address] [place] [address] US PREG GREATER THAN 14 WKS SNGL TRANSABon 08-29-2023 US PREG GREATER THAN 14 WKS SNGL TRANSAB US PREG GREATER THAN 14 WKS SNGL TRANSAB *ADDENDUM*Addendum : Corrected impression: Estimated weight is 19.9%. 58 Finalized by Fernandez Hernandez MD on 08/29/2023 1:52 PM Normal [facility] US TRANSVAGINAL PREGon 08-28 US TRANSVAGINAL PREG US TRANSVAGINAL PREG *ADDENDUM*Addendum : Corrected impression: Estimated weight is 19.9%. 58 Finalized by Fernandez Hernandez MD on 08/29/2023 1:52 PM Normal [facility] Urinalysison 08-29-2023 Bilirubin Ql (U) Negative Negative^N egative [facility] Color (U) YELLOW YELLOW^YEL LOW [facility] Epithelial cells Auto (Urine sed) [#/Area] 12 High [facility] Glucose (U) [Mass/Vol] Negative Negat tong^N egative mg/dL [facility] Hemoglobin Auto test strip Q l (U) Negative Negative^N egative [facility] Interpretation and review of laboratory results Abnormal [facility] Ketones (U) [Mass/Vol] Negative Negat tong^N egative mg/dL [facility] Leukocyte esterase Auto test strip Ql (U) Large Abnormal Negative^N egative [facility] Mucus Ql (Urine sed) PRESENT Abnormal NONE^NONE [facility] Nitrite Auto test strip Ql (U) Negative Negative^N egative [facility] pH (U) 6.5 [pH] 5.0 - 8.5 [facility] Protein (U) [Mass/Vol] Trace Abnormal Negat tong^N egative mg/dL [facility] RBC Auto (Urine sed) [#/Area] 2 [facility] Specific gravity Refractometry automated (U) [Rel density] 1.021 1.003 - 1.035 [facility] Spermatozoa LM Ql (Urine sed) PRESENT Abnormal NONE^N ONE [facility] Turbidity Ql (U) HAZY Abnormal CLEAR^LANDON R [facility] Urobilinogen Qn (U) NINF [facility] WBC Auto (Urine sed) [#/Area] 91 High [facility] VAGINITIS PANEL PCRon 2023 VAGINITIS PANEL PCR BACT. VAGINOSIS DNA Not detected (qualifier value) Qualitative results are reported based on detection and quantitation of targeted organism markers which include: Lactobacillus spp. (L. crispatus and L. jensenii), Gardnerella vaginalis, Atopobium vaginae, Bacterial Vaginosis Associated Bacteria-2 (BVAB-2) and Megasphaera-1 MIGUEL SPECIES DNA Detected (qualifier value) Miguel species result based on detection of one or more of the following species: C. albicans, C. tropicalis, C. parapsilosis or C. dubliniensis MIGUEL KRUSEI DNA Not detected (qualifier value) No Miguel krusei detected MIGUEL GLABRATA DNA Not detected (qualifier value) No Miguel glabrata detected TRICHOMONAS VAG DNA Not detected (qualifier value) No Trichomonas vaginalis detected NOTE BD MAX Vaginal Panel has not been evaluated for patients under 18 years old. Results for these patients should be reviewed and assessed in accordance with clinical presentation to determine patient diagnosis. Normal [facility] Comment on above: Performed By: #### 6 864-3, THYR, CBCA, 5196-1, 05494-9, 00422-7, 49995-5, 69056-8, 27955-6 #### [facility] ([id number]) [address] [place] [address] VZV IgG IA Ql (S)on 08-29-19 24 VARICELLA IgG 0.3 AI Normal <0.9 [facility] Comment on above: Result Comment: Interpretation-------- <0.9 Negative 0.9 - 1.0 Equivocal >1.0 Positive Performed By: #### 6 864-3, THYR, CBCA, 5196-1, 34057-5, 37158-7, 28148-0, 13492-0, 62459-7 #### [facility] ([id number]) [address] [place] [address] DRUG SCREEN, URINEon 024 AMPHETAMINE/METHAMP Negative Normal NEG [facility] Comment on above: Result Comment: AMPH /METH screening cut off = 1000 ng/mL Performed By: #### D JARAMILLO #### [facility] ([id number]) [address] [place] [address] BARBITURATES Negative Normal NEG [facility] Comment on above: Result Comment: Jami iturates screening cut off value = 200 ng/mL Performed By: #### D JARAMILLO #### [facility] ([id number]) [address] [place] [address] BENZODIAZEPINES Negative Normal NEG [facility] Comment on above: Result Comment: Hunter odiazepines screening cut off value = 200 ng/mL Performed By: #### D JARAMILLO #### [facility] ([id number]) [address] [place] [address] CANNABINOIDS Positive Abnormal NEG [facility] Comment on above: Result Comment: Conf irmation available upon request. Cannabinoids/THC screening cut off value = 50 ng/mL Performed By: #### D JARAMILLO #### [facility] ([id number]) [address] [place] [address] COCAINE METABOLITE Negative Normal NEG [facility] Comment on above: Result Comment: Coca ine screening cut off value = 300 ng/mL Performed By: #### D JARAMILLO #### [facility] ([id number]) [address] [place] [address] ECSTASY Negative Normal NEG [facility] Comment on above: Result Comment: Ecst asy screening cut off value = 500 ng/mL This report is intended for use in clinical monitoring or management of patients. Performed By: #### D JARAMILLO #### [facility] ([id number]) [address] [place] [address] METHADONE Negative Normal NEG [facility] Comment on above: Result Comment: Meth adone screening cut off value = 300 ng/mL. Performed By: #### D JARAMILLO #### [facility] ([id number]) [address] [place] [address] OPIATES Negative Normal NEG [facility] Comment on above: Result Comment: Opia olivia screening cut off value = 300 ng/mL NOTE: This test is used for the detection of codeine, hydrocodone (>1000 ng/mL), morphine and hydromorphone (>900 ng/mL) in urine. Performed By: #### D JARAMILLO #### [facility] ([id number]) [address] [place] [address] OXYCODONE Negative Normal NEG [facility] Comment on above: Result Comment: Oxyc odone screening cut off value = 300 ng/mL NOTE: This test is used for the detection of oxycodone and oxymorphone in urine. Performed By: #### D JARAMILLO #### [facility] ([id number]) [address] [place] [address] PHENCYCLIDINE Negative Normal NEG [facility] Comment on above: Result Comment: Phen cyclidine screening cut off value = 25 ng/mL Performed By: #### D JARAMILLO #### [facility] ([id number]) [address] [place] [address] Drug Screen, Urineon 024 Amphetamines Screen method >1000 ng/mL Ql (U) Negative Negative^N [facility] Comment on above: AMPH/METH screening cut off = 1000 ng/mL Barbiturates Screen Ql (U) Negative N ative^N [facility] Comment on above: Barbiturates screeni ng cut off value = 200 ng/mL Benzodiazepines Ql (U) Negative Negat tong^N [facility] Comment on above: Benzodiazepines scre ening cut off value = 200 ng/mL Cocaine Ql (U) Negative Negative^N [facility] Comment on above: Cocaine screening cu t off value = 300 ng/mL Interpretation and review of laboratory results Abnormal [facility] Methadone Screen Ql (U) Negative Nega tive^N [facility] Comment on above: Methadone screening cut off value = 300 ng/mL. Methylenedioxymethamphetamin e Screen Ql (U) Negative Negative^N [facility] Comment on above: Ecstasy screening cu t off value = 500 ng/mL This report is intended for use in clinical monitoring or management of patients. Opiates Screen Ql (U) Negative Negati ve^N [facility] Comment on above: Opiates screening cu t off value = 300 ng/mL NOTE: This test is used for the detection of codeine, hydrocodone (>1000 ng/mL), morphine and hydromorphone (>900 ng/mL) in urine. oxyCODONE Ql (U) Negative Negative^N [facility] Comment on above: Oxycodone screening cut off value = 300 ng/mL NOTE: This test is used for the detection of oxycodone and oxymorphone in urine. Phencyclidine Screen method >25 ng/mL Ql (U) Negative Negative^N [facility] Comment on above: Phencyclidine screen ing cut off value = 25 ng/mL Tetrahydrocannabinol Screen method >50 ng/mL Ql (U) Positive Abnormal Negative^N ative [facility] Comment on above: Confirmation availab le upon request. Cannabinoids/THC screening cut off value = 50 ng/mL [facility] HCG ( test) Ql (U)o n 08-22-2023 Beta HCG ( test) Ql (U) Positive Abnormal NEG [facility] Comment on above: Performed By: #### 2 106-3 #### [facility] ([id number]) [address] [place] [address] URN MACROSCOPIC NURon 2023 BILIRUBIN ELOISA Negative Normal NEG [facility] Comment on above: Performed By: #### N UM #### [facility] ([id number]) [address] [place] [address] BLOOD/HGB ELOISA Negative Normal NEG [facility] Comment on above: Performed By: #### N UM #### [facility] ([id number]) [address] [place] [address] GLUCOSE ELOISA Negative Normal NEG [facility] Comment on above: Performed By: #### N UM #### [facility] ([id number]) [address] [place] [address] KETONES ELOISA Trace Abnormal NEG [facility] Comment on above: Performed By: #### N UM #### [facility] ([id number]) [address] [place] [address] LEUKOCYTE ESTERASE ELOISA Small Abnormal NEG [facility] Comment on above: Performed By: #### N UM #### [facility] ([id number]) [address] [place] [address] NITRITE ELOISA Negative Normal NEG [facility] Comment on above: Performed By: #### N UM #### [facility] ([id number]) [address] [place] [address] 360[address] PH ELOISA 6.0 Normal 5.0-8.5 [facility] Comment on above: Performed By: #### N UM #### [facility] ([id number]) [address] [place] [address] PROTEIN ELOISA Negative Normal NEG [facility] Comment on above: Performed By: #### N UM #### [facility] ([id number]) [address] [place], [place] [address] SPECIFIC GRAVITY ELOISA >=1.030 Normal 1.003-1 .03 5 [facility] Comment on above: Performed By: #### N UM #### [facility] ([id number]) [address] [place], [place] [address] UROBILINOGEN ELOISA 0.2 eu/dL Normal <1.1 [facility] Comment on above: Performed By: #### N UM #### [facility] ([id number]) [address] [place] [address] Cult,Urineon 11-06-2022 Cult,Urine Specimen Description .Source, Unspecified Culture ESCHERICHIA COLI >[id number] CFU/ML Report Status FINAL 11/06/2022 SUSCEPTIBILITY Organism ESCHERICHIA COLI Method SANDRA Ampicillin >=32 RESISTANT Cefazolin <=4 SUSCEPTIBLE Cefazolin sensitivity results can be used to predict the effectiveness of oral cephalosporins (eg. Cephalexin) in uncomplicated Urinary Tract Infections due to E. coli, K. pneumoniae, and P. mirabilis Ceftriaxone <=0.25 SUSCEPTIBLE ESBL NEGATIVE Gentamicin <=1 SUSCEPTIBLE Levofloxacin <=0.12 SUSCEPTIBLE Piperacillin/Tazob actam <=4 SUSCEPTIBLE Tobramycin <=1 SUSCEPTIBLE Trimethoprim/Sulfa >=320 RESISTANT Resistant [facility] Comment on above: Performed By: #### U #### [address] [address] [employer]ipshear Operator: Tirpp Martínez MD [facility] [address] [place] [address] [employer]hear Operator: Bala Aldrich MD CBC with Diffon 11-04-2022 Abs. Basophil <0.03 Normal 0.00-0.20 [facility] Comment on above: Performed By: #### C P, CDP, LIP #### [address] [place] [address] [employer] Operator: Bala Alrdich MD Abs.Imm.Granulocyte <0.03 Normal 0.00-0.30 [facility] Comment on above: Performed By: #### C P, CDP, LIP #### [address] [place] [address] [employer] Operator: Bala Aldrich MD Abs.Neutrophil (Seg) 4.42 k/uL Normal 1.80-8.00 [facility] Comment on above: Performed By: #### C P, CDP, LIP #### [address] [place] [address] [employer] Operator: Bala Aldrich MD Basophils/100 WBC (Bld) 0 % Normal 0-2 [facility] Comment on above: Performed By: #### C P, CDP, LIP #### [address] [place] [address] [employer] Operator: Bala Aldrich MD Eosinophils (Bld) [#/Vol] 0.06 10*3/uL Normal 0.00-0.4 4 [facility] Comment on above: Performed By: #### C P, CDP, LIP #### [address] [place] [id number] [employer] Operator: Bala Aldrich MD Eosinophils/100 WBC (Bld) 1 % Normal 1-4 [facility] Comment on above: Performed By: #### C P, CDP, LIP #### [facility] [address] [place], [place] [phone] [employer] Operator: Bala Aldrich MD Erythrocyte distribution width (RBC) [Ratio] 12.0 % Normal 11.8-14.4 [facility] Comment on above: Performed By: #### C P, CDP, LIP #### [address] [place], [place] [address] [employer] Operator: Bala Aldrich MD Hematocrit (Bld) [Volume fraction] 33.9 % Low 36.3-47.1 [facility] Comment on above: Performed By: #### C P, CDP, LIP #### [address] [place], [place] [address] [employer] Operator: Bala Aldrich MD Hemoglobin (Bld) [Mass/Vol] 12.2 g/dL Normal 11.9-15. 1 [facility] Comment on above: Performed By: #### C P, CDP, LIP #### [address] [place], [facility]83 R[employer] Operator: Bala Aldrich MD Immature granulocytes/100 WB C (Bld) 0 % Normal 0 [facility] Comment on above: Performed By: #### C P, CDP, LIP #### [address] [place], [facility]83 [employer] Operator: Bala Aldrich MD Lymphocytes (Bld) [#/Vol] 1.23 10*3/uL Normal 1.20-5.2 0 [facility] Comment on above: Performed By: #### C P, CDP, LIP #### [address] [place] [address] [employer] Operator: Bala Aldrich MD Lymphocytes/100 WBC (Bld) 20 % Low 25-45 [facility] Comment on above: Performed By: #### C P, CDP, LIP #### [address] [place] [address] [employer] Operator: Bala Aldrich MD MCH (RBC) [Entitic mass] 29.6 pg Normal 25.2-33.5 [facility] Comment on above: Performed By: #### C P, CDP, LIP #### [address] [place] [facility]83 [employer] Operator: Bala Aldrich MD MCHC (RBC) [Mass/Vol] 36.0 g/dL High 28.4-34.8 [facility] Comment on above: Performed By: #### C P, CDP, LIP #### [address] [place] [phone] [employer]ar Operator: Bala Aldrich MD MCV (RBC) [Entitic vol] 82.3 fL Low 82.6-102.9 [facility] Comment on above: Performed By: #### C P, CDP, LIP #### [address] [place], [facility]83 R[employer]ar Operator: Bala Aldrich MD Monocytes (Bld) [#/Vol] 0.50 10*3/uL Normal 0.10-1.40 [facility] Comment on above: Performed By: #### C P, CDP, LIP #### [address] [place], [facility]83 R[employer]ar Operator: Bala Aldrich MD Monocytes/100 WBC (Bld) 8 % Normal 2-8 M [facility] Comment on above: Performed By: #### C P, CDP, LIP #### [address] [place], [facility]83 R[employer]ar Operator: Bala Aldrich MD Neutrophil (Seg) 71 % High 34-64 [facility] Comment on above: Performed By: #### C P, CDP, LIP #### [address] [place], [facility]83 R[employer]ar Operator: Bala Aldrich MD NRBC Automated 0.0 per 100 WBC Normal 0.0 [facility] Comment on above: Performed By: #### C P, CDP, LIP #### [facility] [address] [place] [address] [employer] Operator: Bala Aldrich MD Platelet mean volume (Bld) [Entitic vol] 10.6 fL Normal 8.1-13.5 [facility] Comment on above: Performed By: #### C P, CDP, LIP #### [address] [place], [place] [phone] [employer] Operator: Bala Aldrich MD Platelets (Bld) [#/Vol] 218 10*3/uL Normal 138-453 [facility] Comment on above: Performed By: #### C P, CDP, LIP #### [address] [place], [place] [id number] [employer] Operator: Bala Aldrich MD RBC (Bld) [#/Vol] 4.12 10*6/uL Normal 3.95-5.11 [facility] Comment on above: Performed By: #### C P, CDP, LIP #### [address] [place], [place] 4252783 [employer] Operator: Bala Aldrich MD WBC (Bld) [#/Vol] 6.3 10*3/uL Normal 4.5-13.5 [facility] Comment on above: Performed By: #### C P, CDP, LIP #### [address] [place] [address] [employer] Operator: Bala Aldrich MD Comp Metabolic Profon 2022 Albumin [Mass/Vol] 3.6 g/dL Normal 3.5-5.2 [facility] Comment on above: Performed By: #### C P, CDP, LIP #### [address] [place], [place] [id number] [employer]ar Operator: Bala Aldrich MD Albumin/Glob Ratio 1.2 Normal 1.0-2.5 [facility] Comment on above: Performed By: #### C P, CDP, LIP #### [facility] [address] [place] [address] [employer]hear Operator: Bala Aldrich MD Alkaline Phos 66 U/L Normal 35-104 [facility] Comment on above: Performed By: #### C P, CDP, LIP #### [facility] [address] [place], [place] [phone] [employer]ar Operator: Bala Aldrich MD ALT [Catalytic activity/Vol] 14 U/L Normal 5-33 [facility] Comment on above: Performed By: #### C P, CDP, LIP #### [facility] [address] [place] [address] [employer]ar Operator: Bala Aldrich MD Anion gap [Moles/Vol] 10 mmol/L Normal 9-17 [facility] Comment on above: Performed By: #### C P, CDP, LIP #### [facility] [address] [place] [address] [employer] Operator: Bala Aldrich MD AST [Catalytic activity/Vol] 15 U/L Normal <32 [facility] Comment on above: Performed By: #### C P, CDP, LIP #### [facility] [address] [place], [place] 0191583 [employer]ar Operator: Bala Aldrich MD Bilirubin [Mass/Vol] 0.3 mg/dL Normal 0.3-1.2 [facility] Comment on above: Performed By: #### C P, CDP, LIP #### [facility] [address] [place] [address] [employer] Operator: Bala Aldrich MD BUN/CRE Ratio 5 Low 9-20 [facility] Comment on above: Performed By: #### C P, CDP, LIP #### [facility] [address] [place], [place] 3489583 [employer]ar Operator: Bala Aldrich MD Calcium [Mass/Vol] 9.2 mg/dL Normal 8.6-10.4 [facility] Comment on above: Performed By: #### C P, CDP, LIP #### [facility] [address] [place], [facility]83 R[employer]ar Operator: Bala Aldrich MD Chloride [Moles/Vol] 103 mmol/L Normal 98-107 [facility] Comment on above: Performed By: #### C P, CDP, LIP #### [facility] [address] [place], [place] 9095483 R[employer]ar Operator: Bala Aldrich MD CO2 [Moles/Vol] 20 mmol/L Normal 20-31 [facility] Comment on above: Performed By: #### C P, CDP, LIP #### [facility] [address] [place], [place] 9269483 R[employer]ar Operator: Bala Aldrich MD Creatinine [Mass/Vol] 0.40 mg/dL Low 0.50-0.90 [facility] Comment on above: Performed By: #### C P, CDP, LIP #### [facility] [address] [place] [address] [employer] Operator: Bala Aldrich MD GFR/1.73 sq M.predicted carie g non-blacks MDRD (S/P/Bld) [Vol rate/Area] mL/min/{1.73_m2} Normal >60 [facility] Comment on above: Result Comment: These results [...] By: #### C P, CDP, LIP #### [facility] [address] [place] [address] [employer]ar Operator: Bala Aldrich MD Glucose [Mass/Vol] 77 mg/dL Normal 70-99 [facility] Comment on above: Performed By: #### C P, CDP, LIP #### [facility] [address] [place], [place] 0946083 R[employer]ar Operator: Bala Aldrich MD Potassium [Moles/Vol] 3.2 mmol/L Low 3.7-5.3 [facility] Comment on above: Performed By: #### C P, CDP, LIP #### [address] [place], [place] 2322083 [employer]ar Operator: Bala Aldrich MD Protein [Mass/Vol] 6.6 g/dL Normal 6.4-8.3 [facility] Comment on above: Performed By: #### C P, CDP, LIP #### [facility] [address] [place] [address] Dr. [place], [place] [phone] R[employer]hear Operator: Bala Aldrich MD Sodium [Moles/Vol] 133 mmol/L Low 135-144 [facility] Comment on above: Performed By: #### C P, CDP, LIP #### [facility] [address] [place], [place] 4769983 R[employer]ar Operator: Bala Aldrich MD Urea nitrogen [Mass/Vol] 2 mg/dL Low 6-20 [facility] Comment on above: Performed By: #### C P, CDP, LIP #### [facility] [address] [place] [address] [employer] Operator: Bala Aldrich MD Lipaseon 11-04-2022 Lipase [Catalytic activity/Vol] 39 U/L Normal 13-60 [facility] Comment on above: Performed By: #### C P, CDP, LIP #### [facility] [address] [place] [address] Dr. [place], [place] 5362883 [employer] Operator: Bala Aldrich MD UA w/Reflex Cultureon 2022 Bilirubin, SemiQt,Ur Negative Normal NEG [facility] Comment on above: Performed By: #### U AX, UMICAO #### [facility] [address] [place] [address] Dr. [place], [place] 8821483 R[employer]ar Operator: Bala Aldrich MD Blood, Urine Negative Normal NEG [facility] Comment on above: Performed By: #### U AX, UMICAO #### [address] [place], [place] 0279983 [employer] Operator: Bala Aldrich MD Clarity (U) Cloudy Abnormal CLEAR [facility] Comment on above: Performed By: #### U AX, UMICAO #### [address] [place], [place] 6288783 R[employer]ar Operator: Bala Aldrich MD Color (U) Yellow Normal YEL [facility] Comment on above: Performed By: #### U AX, UMICAO #### [address] [place], [place] [phone] [employer]ar Operator: Bala Aldrich MD Glucose Ql (U) Negative Normal NEG [facility] Comment on above: Performed By: #### U AX, UMICAO #### [facility] [address] [place] [address] Dr. [place], [place] [phone] R[employer]hear Operator: Bala Aldrich MD Ketones Ql (U) 4+ Abnormal NEG [facility] Comment on above: Performed By: #### U AX, UMICAO #### [address] [place], [place] 1855683 R[employer]ar Operator: Bala Aldrich MD Leukocyte esterase Test stri p Ql (U) MODERATE Abnormal NEG [facility] Comment on above: Performed By: #### U AX, UMICAO #### [facility] [address] [place], [place] 9358283 Ripshear Operator: Bala Aldrich MD Nitrite,Ur Positive Abnormal NEG [facility] Comment on above: Performed By: #### U AX, UMICAO #### [facility] [address] [place] [address] Dr. [place], [place] 0197983 R[employer]hear Operator: Bala Aldrich MD PH,Ur 6.0 Normal 5.0-9.0 [facility] Comment on above: Performed By: #### U AX, UMICAO #### [facility] [address] [place] [address] R[employer]hear Operator: Bala Aldrich MD Protein Ql (U) Negative Normal NEG [facility] Comment on above: Performed By: #### U AX, UMICAO #### [address] [place], [facility]83 R[employer]ar Operator: Bala Aldrich MD Spec. Baldwin,Ur 1.025 High 1.010-1.02 0 [facility] Comment on above: Performed By: #### U AX, UMICAO #### [address] [place], [place] 8936083 R[employer]hear Operator: Bala Aldrich MD Urobilinogen,Ur Normal Normal NORM [facility] Comment on above: Performed By: #### U AX, UMICAO #### [address] [place] [address] [employer] Operator: Bala Aldrich MD Urinalysis,Microon 3 Bacteria 3+ Abnormal [facility] Comment on above: Performed By: #### U AX, UMICAO #### [address] [place], [place] 1002383 R[employer]ar Operator: Bala Aldrich MD Crystals LM Nom (Urine sed) 0 TO 2 Abnormal [facility] Comment on above: Result Comment: CALC IUM OXALATE Performed By: #### U AX, UMICAO #### [facility] [address] [place], [place] 6038483 Ripshear Operator: Bala Aldrich MD Epithelial cells LM Ql (Urin e sed) 5 TO 10 Normal 0-25 [facility] Comment on above: Performed By: #### U AX, UMICAO #### [facility] [address] [place], [place] 7499583 R[employer]hear Operator: Bala Aldrich MD Mucus Strands TRACE Abnormal NONE [facility] Comment on above: Performed By: #### U AX, UMICAO #### [facility] [address] [place], [place] 9875383 Ripshear Operator: Bala Aldrich MD Urine RBC's 0 TO 2 Normal 0-2 [facility] Comment on above: Performed By: #### U AX, UMICAO #### [facility] [address] [place], [place] 6561883 R[employer]hear Operator: Bala Aldrich MD Urine WBC's 10 TO 20 Normal 0-5 [facility] Comment on above: Performed By: #### U AX, UMICAO #### [facility] [address] [place], [place] 8164383 R[employer]hear Operator: Bala Aldrich MD XR CHEST PORTABLEon 11-05-19 [...] Violette Benitez MD 11/04/22 Final result Normal [facility] CBC with Diffon 10-30-2022 Abs. Basophil <0.03 Normal 0.00-0.20 [facility] Comment on above: Performed By: #### C P, PT, CDP ####[address] [place] [address] Lab Director: Bala Aldrich MD Abs.Imm.Granulocyte 0.03 k/uL Normal 0.00-0.30 [facility] Comment on above: Performed By: #### C P, PT, CDP ####[address] , [place] [address])[phone] Director: Bala Aldrich MD Abs.Neutrophil (Seg) 6.65 k/uL Normal 1.80-8.00 [facility] Comment on above: Performed By: #### C P, PT, CDP ####[address] [place] [phone] Lab Director: Bala Aldrich MD Basophils/100 WBC (Bld) 0 % Normal 0-2 [facility] Comment on above: Performed By: #### C P, PT, CDP ####[address] , [facility]83 Lab Director: Bala Aldrich MD Eosinophils (Bld) [#/Vol] 0.06 10*3/uL Normal 0.00-0.4 4 [facility] Comment on above: Performed By: #### C P, PT, CDP ####[address] , [place] [address])[phone] Director: Bala Aldrich MD Eosinophils/100 WBC (Bld) 1 % Normal 1-4 [facility] Comment on above: Performed By: #### C P, PT, CDP ####[address] [place] 3708983 Lab Director: Bala Aldrich MD Erythrocyte distribution width (RBC) [Ratio] 11.9 % Normal 11.8-14.4 [facility] Comment on above: Performed By: #### C P, PT, CDP ####[address] , [place] 9944183 Lab Director: Bala Aldrich MD Hematocrit (Bld) [Volume fraction] 35.9 % Low 36.3-47.1 [facility] Comment on above: Performed By: #### C P, PT, CDP ####[address] , [place] [phone] Lab Director: Bala Aldrich MD Hemoglobin (Bld) [Mass/Vol] 12.6 g/dL Normal 11.9-15. 1 [facility] Comment on above: Performed By: #### C P, PT, CDP ####[address] , [facility]83 Lab Director: Bala Aldrich MD Immature granulocytes/100 WB C (Bld) 0 % Normal 0 [facility] Comment on above: Performed By: #### C P, PT, CDP ####[address] , [facility]83 Lab Director: Bala Aldrich MD Lymphocytes (Bld) [#/Vol] 2.00 10*3/uL Normal 1.20-5.2 0 [facility] Comment on above: Performed By: #### C P, PT, CDP ####[address] , [place] 2685983 Lab Director: Bala Aldrich MD Lymphocytes/100 WBC (Bld) 22 % Low 25-45 [facility] Comment on above: Performed By: #### C P, PT, CDP ####[address] , [facility]83 Lab Director: Bala Aldrich MD MCH (RBC) [Entitic mass] 29.6 pg Normal 25.2-33.5 [facility] Comment on above: Performed By: #### C P, PT, CDP ####[address] [phone] Lab Director: Bala Aldrich MD MCHC (RBC) [Mass/Vol] 35.1 g/dL High 28.4-34.8 [facility] Comment on above: Performed By: #### C P, PT, CDP ####[address] [place] [address] Lab Director: Bala Aldrich MD MCV (RBC) [Entitic vol] 84.3 fL Normal 82.6-102.9 [facility] Comment on above: Performed By: #### C P, PT, CDP ####[address] , [place] [address] Lab Director: Bala Aldrich MD Monocytes (Bld) [#/Vol] 0.38 10*3/uL Normal 0.10-1.40 [facility] Comment on above: Performed By: #### C P, PT, CDP ####[address] , [facility]83 Lab Director: Bala Aldrich MD Monocytes/100 WBC (Bld) 4 % Normal 2-8 [facility] Comment on above: Performed By: #### C P, PT, CDP ####[address] , [facility]83 Lab Director: Bala Aldrich MD Neutrophil (Seg) 73 % High 34-64 [facility] Comment on above: Performed By: #### C P, PT, CDP ####[address] [place] [address] Lab Director: Bala Aldrich MD NRBC Automated 0.0 per 100 WBC Normal 0.0 [facility] Comment on above: Performed By: #### C P, PT, CDP ####[address] , [place] 7694883 Lab Director: Bala Aldrich MD Platelet mean volume (Bld) [Entitic vol] 11.0 fL Normal 8.1-13.5 [facility] Comment on above: Performed By: #### C P, PT, CDP ####[address] [place] [address] Lab Director: Bala Aldrich MD Platelets (Bld) [#/Vol] 249 10*3/uL Normal 138-453 [facility] Comment on above: Performed By: #### C P, PT, CDP ####[address] [place] [address] Lab Director: Bala Aldrich MD RBC (Bld) [#/Vol] 4.26 10*6/uL Normal 3.95-5.11 [facility] Comment on above: Performed By: #### C P, PT, CDP ####[address] , [facility]83[facility])[phone] Director: Bala Aldrich MD WBC (Bld) [#/Vol] 9.1 10*3/uL Normal 4.5-13.5 [facility] Comment on above: Performed By: #### C P, PT, CDP ####[address] [place] [address] Lab Director: Bala Aldrich MD Comp Metabolic Profon 2022 Albumin [Mass/Vol] 3.9 g/dL Normal 3.5-5.2 [facility] Comment on above: Performed By: #### C P, PT, CDP ####[address] , [place] 8979483 Lab Director: Bala Aldrich MD Albumin/Glob Ratio 1.3 Normal 1.0-2.5 [facility] Comment on above: Performed By: #### C P, PT, CDP ####[address] , [place] 7336783 Lab Director: Bala Aldrich MD Alkaline Phos 65 U/L Normal 35-104 [facility] Comment on above: Performed By: #### C P, PT, CDP ####[address] , [place] 9329283 [facility] Director: Bala Aldrich MD ALT [Catalytic activity/Vol] 21 U/L Normal 5-33 [facility] Comment on above: Performed By: #### C P, PT, CDP ####[address] , [place] 0832483 [facility] Director: Bala Aldrich MD Anion gap [Moles/Vol] 12 mmol/L Normal 9-17 [facility] Comment on above: Performed By: #### C P, PT, CDP ####[address] , [place] 2337983 [facility] Director: Bala Aldrich MD AST [Catalytic activity/Vol] 13 U/L Normal <32 [facility] Comment on above: Performed By: #### C P, PT, CDP ####[address] , [place] 9107183 Lab Director: Bala Aldrich MD Bilirubin [Mass/Vol] 0.4 mg/dL Normal 0.3-1.2 [facility] Comment on above: Performed By: #### C P, PT, CDP ####[address] , [place] 1682283 [facility] Director: Bala Aldrich MD BUN/CRE Ratio 10 Normal 9-20 [facility] Comment on above: Performed By: #### C P, PT, CDP ####[address] , [place] 1273983 Lab Director: Bala Adlrich MD Calcium [Mass/Vol] 9.6 mg/dL Normal 8.6-10.4 [facility] Comment on above: Performed By: #### C P, PT, CDP ####[address] , [place] 2169583 Lab Director: Bala Aldrich MD Chloride [Moles/Vol] 102 mmol/L Normal 98-107 [facility] Comment on above: Performed By: #### C P, PT, CDP ####[address] , [place] 0639183 Lab Director: Bala Aldrich MD CO2 [Moles/Vol] 22 mmol/L Normal 20-31 [facility] Comment on above: Performed By: #### C P, PT, CDP ####[address] , [place] 2518383 Lab Director: Bala Aldrich MD Creatinine [Mass/Vol] 0.41 mg/dL Low 0.50-0.90 [facility] Comment on above: Performed By: #### C P, PT, CDP ####[address] , [place] 9939983 lab Director: Bala Aldrich MD GFR/1.73 sq M.predicted carie g non-blacks MDRD (S/P/Bld) [Vol rate/Area] mL/min/{1.73_m2} Normal >60 [facility] Comment on above: Result Comment: These results [...] Performed By: #### C P, PT, CDP ####[address] , [place] 6911283 lab Director: Bala Aldrich MD Glucose [Mass/Vol] 82 mg/dL Normal 70-99 [facility] Comment on above: Performed By: #### C P, PT, CDP ####[address] , [place] 9141983 Lab Director: Bala Aldrich MD Potassium [Moles/Vol] 3.7 mmol/L Normal 3.7-5.3 [facility] Comment on above: Performed By: #### C P, PT, CDP ####[address] , [place] 2849383 Lab Director: Bala Aldrich MD Protein [Mass/Vol] 6.9 g/dL Normal 6.4-8.3 [facility] Comment on above: Performed By: #### C P, PT, CDP ####[address] , [place] 8572083 Lab Director: Bala Aldrich MD Sodium [Moles/Vol] 136 mmol/L Normal 135-144 [facility] Comment on above: Performed By: #### C P, PT, CDP ####[address] , [place] 7800783 Lab Director: Bala Aldrich MD Urea nitrogen [Mass/Vol] 4 mg/dL Low 6-20 [facility] Comment on above: Performed By: #### C P, PT, CDP ####[address] , [place] 4129783 Lab Director: Bala Aldrich MD HCG, Quanton 10-30-2022 HCG, Quant [id number] mIU/mL High <5 [facility] Comment on above: Result Comment: Non-preg premeno <=5 Postmeno <=8 Male <=3 If HCG results do not concur with clinical observations, additional testing to confirm results is recommended. Performed By: #### B HCG ####[address] , [place] 2444083 Lab Director: Bala Aldrich MD PTon 10-30-2022 INR Coag (PPP) [Relative time] 1.0 {INR} Normal [facility] Comment on above: Result Comment: Therapeutic Range: Moderate Anticoagulant Intensity: INR = 2.0-3.0 High Anticoagulant Intensity: INR = 2.5-3.5 Performed By: #### C P, PT, CDP ####[facility] [place] [address] lab Director: Bala Aldrich MD PT Coag (PPP) [Time] 12.9 s Normal 11.9-14.8 [facility] Comment on above: Performed By: #### C P, PT, CDP ####[facility] , [place] 1717183 lab Director: Bala Aldirch MD Type + Screenon 10-30-2022 Type + Screen Sample Expiration 11/02/2022,2359 Arm Band Number [id number] ABO/Rh(D) O POSITIVE Antibody Screen NEGATIVE Normal [facility] Comment on above: Performed By: #### T YS ####[facility] , [place] [id number] lab Director: Bala Aldrich MD US DUP ABD PEL RETRO SCROT L IMITEDon [...] sac with thin intertwin membrane, suggesting mono chorionic-diamniot ic twin . No evidence of subchorionic hematoma. Twin A: Yolk Sac: Not seen [place] Rump Length: 5.3 cm Heart Rate: 156 beats per minute Twin B: Yolk sac: Not seen [place]-rump length: 5.6 cm heart rate: 158 [...] 05/15/2023. This is suspected to be a monochorionic-diam niotic twin based on the provided images. If available, correlation with any earlier 1st trimester ultrasound may be of use. 2. Unremarkable sonographic appearance of the ovaries. No evidence of ovarian torsion. Interpreted by: Madyson Gabriel DO Signed by: Madyson Gabriel DO 10/30/22 Final result Normal [facility] US OB LESS THAN 14 WEEKS SIN [...] sac with thin intertwin membrane, suggesting mono chorionic-diamniot ic twin . No evidence of subchorionic hematoma. Twin A: Yolk Sac: Not seen [place] Rump Length: 5.3 cm Heart Rate: 156 beats per minute Twin B: Yolk sac: Not seen [place]-rump length: 5.6 cm heart rate: 158 [...] 05/15/2023. This is suspected to be a monochorionic-diam niotic twin based on the provided images. If available, correlation with any earlier 1st trimester ultrasound may be of use. 2. Unremarkable sonographic appearance of the ovaries. No evidence of ovarian torsion. Interpreted by: Madyson Gabriel DO Signed by: Madyson Gabriel DO 10/30/22 Final result Normal [facility] Urinalysis, Routineon 2022 Bilirubin, SemiQt,Ur Negative Normal NEG [facility] Comment on above: Performed By: #### U A, UMICAO #### [facility] [address] [place] [address] Ripshear Operator: Bala Aldrich MD Blood, Urine Negative Normal NEG [facility] Comment on above: Performed By: #### U A, UMICAO #### [facility] [address] [place] [address] [employer]ipshe[employer] Operator: Bala Aldrich MD Clarity (U) Cloudy Abnormal CLEAR [facility] Comment on above: Performed By: #### U A, UMICAO #### [facility] [address] [place] [address] [employer]ipshear Operator: Bala Aldrich MD Color (U) Yellow Normal YEL [facility] Comment on above: Performed By: #### U A, UMICAO #### [facility] [address] [place] [address] Ripshe[employer] Operator: Bala Aldrich MD Glucose Ql (U) Negative Normal [facility] Comment on above: Performed By: #### U A, UMICAO #### [facility] [address] [place], [place] [phone] Ripshear Operator: Bala Aldrich MD Ketones Ql (U) 1+ Abnormal NEG [facility] in Hospital Comment on above: Performed By: #### U A, UMICAO #### [facility] [address] [place] [address] Ripshear Operator: Bala Aldrich MD Leukocyte esterase Test stri p Ql (U) LARGE Abnormal NEG [facility] Comment on above: Performed By: #### U A, UMICAO #### [facility] [address] [place] [address] [place] [address] Ripshear Operator: Bala Aldrich MD Nitrite,Ur Negative Normal NEG [facility] Comment on above: Performed By: #### U A, UMICAO #### [facility] [address] [place] [address] [place] [address] Ripshear Operator: Bala Aldrich MD PH,Ur 6.5 Normal 5.0-9.0 [facility] Comment on above: Performed By: #### U A, UMICAO #### [facility] [address] [place] [address] [place] [place], [place] [phone] Ripshear Operator: Bala Aldrich MD Protein Ql (U) Negative Normal NEG [facility] in Hospital Comment on above: Performed By: #### U A, UMICAO #### [facility] [address] [place] [address] Ripshear Operator: Bala Aldrich MD Spec. Baldwin,Ur 1.025 High 1.010-1.02 0 [facility] Comment on above: Performed By: #### U A, UMICAO #### [facility] [address] [place] [address] [place] [address] Ripshear Operator: Bala Aldrich MD Urobilinogen,Ur ELEVATED Abnormal NORM [facility] Comment on above: Performed By: #### U A, UMICAO #### [facility] [address] [place] [address] Ripshear Operator: Bala Aldrich MD Urinalysis,Microon 3 Bacteria 4+ Abnormal NONE [facility] Comment on above: Performed By: #### U A, UMICAO #### [facility] [address] [place], [place] [phone] Ripshear Operator: Bala Aldrich MD Epithelial cells LM Ql (Urin e sed) 5 TO 10 Normal 0-25 [facility] Comment on above: Performed By: #### U A, UMICAO #### [facility] [address] [place], [place] [phone] Ripshear Operator: Bala Aldrich MD Mucus Strands 3+ Abnormal NONE [facility] Comment on above: Performed By: #### U A, UMICAO #### [facility] [address] [place], [place] [phone] Ripshear Operator: Bala Aldrich MD Urine RBC's 2 TO 5 Normal 0-2 [facility] Comment on above: Performed By: #### U A, UMICAO #### [facility] [address] [place] [address] Ripshear Operator: Bala Aldrich MD Urine WBC's 20 TO 50 Normal 0-5 [facility] Comment on above: Performed By: #### U A, UMICAO #### [facility] [address] [place], [place] [phone] Ripshear Operator: Bala Aldrich MD CHLAMYDIA/GONOCOCCUS BI (SW AB/URINE/PAPon 08-20-2022 Chlamydia trachomatis, BI Negative Normal Negative [facility] Comment on above: Performed By: #### C T/NGNA #### [facility] [address] [place] [address] Dr. Keo Ivory Neisseria gonorrhoeae, BI Negative Normal Negative [facility] Comment on above: Performed By: #### C T/NGNA #### [facility] [address] [place] [address] Dr. Keo Ivory CULTURE URINEon 08-20-2022 CULTURE URINE Isolate 1 Escherichia coli >100,000 cfu/mL of ORGANISM 1 Escherichia coli ANTIBIOTIC M.I.C RX STATUS Ampicillin >=32 R F Ampicillin/Sulbact am 16 I F Piperacillin/Tazob actam <=4 S F Cefazolin <=4 S F Ceftazidime <=1 S F Ceftriaxone <=1 S F Ertapenem <=0.5 S F Imipenem <=0.25 S F Amikacin <=2 S F Gentamicin <=1 S F Tobramycin <=1 S F Ciprofloxacin <=0.25 S F Levofloxacin <=0.12 S F Nitrofurantoin <=16 S F Trimethoprim/Sulfa methoxazole >=320 R F Normal [facility] Comment on above: Performed By: #### U RCX #### [facility] [address] [place] [address] Dr. Keo Ivory ER URINE PROFILEon 3 Bilirubin Ql (U) Negative Normal NEGATIVE The [facility] Comment on above: Performed By: #### U MICRO, PREGU, ERUR #### [facility] [address] [place] [address] Dr. Keo Ivory Clarity (U) SL CLOUDY Abnormal CLEAR [facility] Comment on above: Performed By: #### U MICRO, PREGU, ERUR #### [facility] [address] [place] [address] Dr. Keo Ivory Color (U) LT. YELLOW Normal YELLOW [facility] Comment on above: Performed By: #### U MICRO, PREGU, ERUR #### [facility] [address] [place] [address] Dr. Keo Ivory ERUAHD A micrscopic examination will be performed if indicated. Normal [facility] Comment on above: Performed By: #### U MICRO, PREGU, ERUR #### [facility] [address] [address] [address] Keo Ivory Glucose Ql (U) Negative Normal NEGATIVE [facility] Comment on above: Performed By: #### U MICRO, PREGU, ERUR #### [facility] [address] [address] [address] Keo Ivory Hemoglobin Ql (U) TRACE-INTACT Abnormal NEGATIVE [facility] Comment on above: Performed By: #### U MICRO, PREGU, ERUR #### [facility] [address] [address] [address] Keo Ivory Ketones Ql (U) Negative Normal NEGATIVE [facility] Comment on above: Performed By: #### U MICRO, PREGU, ERUR #### [facility] [address] [place] [address] Dr. Keo Ivory LEUKOCYTES Negative Normal NEGATIVE [facility] Comment on above: Performed By: #### U MICRO, PREGU, ERUR #### [facility] [address] [place] [address] Dr. Keo Ivory Nitrite Ql (U) Positive Abnormal NEGATIVE [facility] Comment on above: Performed By: #### U MICRO, PREGU, ERUR #### [facility] [address] [address] [address] Keo Ivory pH (U) 6.0 [pH] Normal 5-9 [facility] Comment on above: Performed By: #### U MICRO, PREGU, ERUR #### [facility] [address] [address] [address] Keo Ivory SPEC GRAVITY 1.020 Normal 1.005-<=1. 025 [facility] Comment on above: Performed By: #### U MICRO, PREGU, ERUR #### [facility] [address] [place] [address] Dr. Keo Ivory UA PROTEIN Negative Normal NEGATIVE/ TRACE [facility] Comment on above: Performed By: #### U MICRO, PREGU, ERUR #### [facility] [address] [place] [address] Dr. Keo Ivory UR MICRO IND INDICATED Normal [facility] Comment on above: Performed By: #### U MICRO, PREGU, ERUR #### [facility] [address] [address] [address] Keo Ivory Urobilinogen Qn (U) 0.2 {Krishna'U}/dL Normal 0.2 - 1. 0 [facility] Comment on above: Performed By: #### U MICRO, PREGU, ERUR #### [facility] [address] [address] [address] Keo Ivory URon 08-17-2022 , QUAL Negative Normal NEGATIVE [facility] Comment on above: Performed By: #### U MICRO, PREGU, ERUR #### [facility] [address] [place] [address] Dr. Keo Ivory URINE MICROSCOPIC ONLYon BACTERIA LARGE Abnormal NONE SEEN [facility] Comment on above: Performed By: #### U MICRO, PREGU, ERUR #### [facility] [address] [place] [address] Dr. Keo Ivory Bacteria identified Cx Nom (U) INDICATED Normal [facility] Comment on above: Performed By: #### U MICRO, PREGU, ERUR #### [facility] [address] [place] [address] Dr. Keo Ivory CAST NONE SEEN Normal NONE SEEN [facility] Comment on above: Performed By: #### U MICRO, PREGU, ERUR #### [facility] [address] [address] [address] Keo Ivory Crystals LM Nom (Urine sed) NONE SEEN Normal NONE SEE N [facility] Comment on above: Performed By: #### U MICRO, PREGU, ERUR #### [facility] [address] [place] [address] Dr. Keo Ivory Epithelial cells LM Ql (Urin e sed) FEW Abnormal NONE SEEN /RARE [facility] Comment on above: Performed By: #### U MICRO, PREGU, ERUR #### [facility] [address] [place] [address] Dr. Keo Ivory MUCOUS NONE SEEN Normal NONE SEEN [facility] Comment on above: Performed By: #### U MICRO, PREGU, ERUR #### [facility] [address] [address] [address] Keo Ivory RBC NONE SEEN Abnormal 0-2 [facility] Comment on above: Performed By: #### U MICRO, PREGU, ERUR #### [facility] [address] [address] [address] Keo Ivory WBC 5-10 Abnormal NONE SEEN [facility] Comment on above: Performed By: #### U MICRO, PREGU, ERUR #### [facility] [address] [address] [address] Keo Ivory SARS-CoV-2 (COVID-19) RNA NA A+probe Ql (Resp)on 11-14-2021 SARS-CoV-2 (COVID-19) RNA BI+probe Ql (Unsp spec) Negative [employer] Other PREG QUANT HCGon 10-30-2021 HCG QUANT <1 Normal [facility] Comment on above: Performed By: #### P REGQNT #### [facility] [address] [address] [address] Keo Ivory HCG RANGE SEE BELOW Normal [facility] Comment on above: Result Comment: 5-50 0-1 WEEK 40-300 1-2 WEEKS 100-1,000 2-3 WEEKS 500-6,000 3-4 WEEKS 5,000-200,000 1-2 MONTHS 10,000-100,000 2-3 MONTHS 3,000-50,000 2ND TRIMESTER 1,000-50,000 3RD TRIMESTER Performed By: #### P REGQNT #### [facility] [address] [address] [address] Keo Ivory Vital Signs Date Time Vital Sign Value Performing Clinician Facility 08-12-2024 15:130400 Body weight 81.7 kg [employer] Phone: [facility] 08-12-2024 15:13-0400 Diastolic blood pressure 72 mm[Hg] [facility] Work Phone: [facility] 08-12-2024 15:13-0400 Systolic blood pressure 106 mm[Hg] Osmany Bella DO Work Phone: [facility] 07-16-2024 08:54-0400 Body weight 80.56 kg Noms Nurse [facility] 07-16-2024 08:54-0400 Diastolic blood pressure 70 mm[Hg] [facility] Nurse [facility] 07-16-2024 08:54-0400 Systolic blood pressure 120 mm[Hg] Nom Nurse [facility] 12-06-2023 13:05-0400 Body mass index (BMI) [Ratio] 30.87 kg/m2 Amaya Cummingsin BEEF SPECIALIST-JUMP ROLL OPERATOR Work Phone: [facility] 12-06-2023 13:05-0400 Body weight 76.57 kg Amaay Cummingsin BEEF SPECIALIST-JUMP ROLL OPERATOR Work Phone: [facility] 12-06-2023 13:05-0400 Diastolic blood pressure 74 mm[Hg] Amaya Cummingsin BEEF SPECIALIST-JUMP ROLL OPERATOR Work Phone: [facility] 12-06-2023 13:05-0400 Systolic blood pressure 106 mm[Hg] Amaya Cummingsin BEEF SPECIALIST-JUMP ROLL OPERATOR Work Phone: [facility] 11-27-2023 11:11-0400 Body mass index (BMI) [Ratio] 30.35 kg/m2 [facility] 11-27-2023 11:11-0400 Body weight 75.3 kg [facility] 11-27-2023 11:11-0400 Diastolic blood pressure 80 mm[Hg] [facility] 11-27-2023 11:11-0400 Systolic blood pressure 108 mm[Hg] [facility] 11-19-2023 10:04-0400 Body mass index (BMI) [Ratio] 29.62 kg/m2 Sally Newman BEEF SPECIALIST-JUMP ROLL OPERATOR Work Phone: [facility] 11-19-2023 10:04-0400 Body weight 73.48 kg Sally Newman BEEF SPECIALIST-JUMP ROLL OPERATOR Work Phone: [facility] 11-19-2023 10:04-0400 Diastolic blood pressure 60 mm[Hg] Sally Newman BEEF SPECIALIST-JUMP ROLL OPERATOR Work Phone: [facility] 11-19-2023 10:04-0400 Systolic blood pressure 102 mm[Hg] Sally Newman BEEF SPECIALIST-JUMP ROLL OPERATOR Work Phone: [facility] 10-10-2023 15:38-0400 Body mass index (BMI) [Ratio] 30.98 kg/m2 Mallika Raúl BEEF SPECIALIST-CNM Work Phone: [facility] 10-10-2023 15:38-0400 Body weight 76.84 kg Mallika Raúl BEEF SPECIALIST-CNM Work Phone: [facility] 10-10-2023 15:38-0400 Diastolic blood pressure 60 mm[Hg] Mallika Raúl BEEF SPECIALIST-CNM Work Phone: [facility] 10-10-2023 15:38-0400 Systolic blood pressure 110 mm[Hg] Mallika Raúl BEEF SPECIALIST-CNM Work Phone: [facility] 09-12-2023 15:22-0400 Body mass index (BMI) [Ratio] 29.89 kg/m2 Mallika Raúl BEEF SPECIALIST-CNM Work Phone: [facility] 09-12-2023 15:22-0400 Body weight 74.12 kg Mallika Raúl BEEF SPECIALIST-CNM Work Phone: [facility] 09-12-2023 15:22-0400 Diastolic blood pressure 60 mm[Hg] Mallika Raúl BEEF SPECIALIST-CNM Work Phone: [facility] 09-12-2023 15:22-0400 Systolic blood pressure 110 mm[Hg] Mallika Raúl BEEF SPECIALIST-CNM Work Phone: [facility] 08-29-2023 13:49-0400 Body mass index (BMI) [Ratio] 29.37 kg/m2 Mallika Conn BEEF SPECIALIST-CNM Work Phone: [facility] 08-29-2023 13:49-0400 Body weight 72.85 kg Mallika Conn BEEF SPECIALIST-CNM Work Phone: [facility] 08-29-2023 13:49-0400 Diastolic blood pressure 60 mm[Hg] Mallika Conn BEEF SPECIALIST-CNM Work Phone: [facility] 08-29-2023 13:49-0400 Systolic blood pressure 120 mm[Hg] Mallika Conn BEEF SPECIALIST-CNM Work Phone: [facility] 08-28-2023 13:48-0400 Body mass index (BMI) [Ratio] 29.3 kg/m2 Bph 2 [facility] 08-28-2023 13:48-0400 Body weight 72.67 kg Bph 2 [facility] 08-28-2023 13:48-0400 Diastolic blood pressure 64 mm[Hg] Bph 2 [facility] 08-28-2023 13:48-0400 Systolic blood pressure 110 mm[Hg] Bph 2 [facility] 08-23-2023 10:55-0400 Body mass index (BMI) [Ratio] 29.63 kg/m2 B[facility] 08-23-2023 10:55-0400 Body weight 73.48 kg Bph [facility] 08-23-2023 10:55-0400 Diastolic blood pressure 62 mm[Hg] B[facility] 08-23-2023 10:55-0400 Systolic blood pressure 112 mm[Hg] [facility] 11-14-2021 17:00-0400 Body height 165.1 cm Amaya Luu Other [facility] Other 11-14-2021 17:00-0400 Body mass index (BMI) [Ratio] 29.95 kg/m2 Amaya Luu Other [facility] Other 11-14-2021 17:00-0400 Body temperature 99 [degF] Amaya Luu Other [facility] Other 11-14-2021 17:00-0400 Body weight 81.65 kg Amaya Luu Other [facility] Other 11-14-2021 17:00-0400 Respiratory rate 16 /min Amaya Luu Other [facility] Other 11-14-2021 17:00-0400 SaO2% (BldA) [Mass fraction] 97 % Amaya Luu Other [facility] Other Encounters Encounter Date Encounter Type Care Provider Facility Start: 08-12-2024 End: 08-12-2024 Patient encounter procedure Osmany Jena DO Work Phone: [facility] Work Phone: Start: 08-12-2024 End: 08-12-2024 Periodic preventive med est patient 18-39 yrs Osmany Jena DO Work Phone: [facility] Comment on above: Well woman exam with routine gynecological exam; Vaginal discharge; STD exposure; Missed menses; , unspecified gestational age; Diabetes mellitus screening; Flank pain Start: 08-12-2024 End: 08-12-2024 Bamboo flowsheet Osmany Jena DO Work Phone: [facility] Start: 08-12-2024 End: 08-12-2024 Bamboo flowsheet Osmany Jena DO Work Phone: [facility] Start: 08-03-2024 End: 08-03-2024 Orders Only Guerrero Johnson APRN-[facility] Work Phone: [facility] Comment on above: Urinary tract infect ion in mother during , antepartum (Primary Dx) Start: 07-28-2024 End: 07-28-2024 ambulatory OSMANY JENA Not Available Start: 07-27-2024 End: 07-27-2024 ambulatory OSMANY R JENA [facility] Start: 07-16-2024 End: 07-16-2024 Office outpatient visit 5 minutes [facility] Jena Nurse [facility] Comment on above: GA: 21w2d Start: 07-16-2024 End: 07-16-2024 ambulatory OSMANY JENA Not Available Start: 07-12-2024 End: 07-12-2024 ambulatory TIBERIU S ANNA [facility] Start: 07-06-2024 End: 07-06-2024 ambulatory OSMANY R JENA [facility] Start: 06-25-2024 End: 06-25-2024 Emergency department patient visit NO PCP NO PCP [facility] Start: 06-02-2024 End: 06-02-2024 Bamboo flowsheet Osmany Jena DO Work Phone: [facility] Start: 06-02-2024 End: 06-02-2024 Bamboo flowsheet Osmany Jena DO Work Phone: [facility] Start: 06-02-2024 End: 06-02-2024 ambulatory OSMANY JENA Not Available Start: 06-02-2024 End: 06-02-2024 Office outpatient visit 15 minutes Osmany Jena DO Work Phone: [facility] Comment on above: Encounter for follow -up; Vaginal bleeding affecting early Start: 05-15-2024 End: 05-15-2024 Emergency department patient visit NO PCP NO PCP [facility] Start: 03-15-2024 End: 03-15-2024 Emergency department patient visit NO PCP NO PCP [facility] Start: 12-10-2023 End: 12-10-2023 ambulatory OSMANY JENA Not Available Start: 12-06-2023 End: 12-06-2023 Subsequent care visit Amaya Cruz BEEF SPECIALIST-JUMP ROLL OPERATOR Work Phone: [facility] Comment on above: GA: 38w1d Start: 12-06-2023 End: 12-06-2023 ambulatory AMAYA Anders [facility] Start: 11-28-2023 End: 11-28-2023 Telephone encounter Rekha Echols [facility] Start: 11-27-2023 End: 11-27-2023 ambulatory NO PCP NO PCP [facility] Start: 11-27-2023 End: 11-27-2023 Subsequent care visit [facility] [employer] [facility] Comment on above: GA: 36w6d Start: 11-19-2023 End: 11-19-2023 Initial care visit Sally Chago Frederick BEEF SPECIALIST-JUMP ROLL OPERATOR [facility] Comment on above: GA: 35w5d Start: 11-19-2023 End: 11-19-2023 ambulatory [facility] Chago [facility] Start: 11-17-2023 End: 11-17-2023 ambulatory [facility] Start: 10-22-2023 End: 10-23-2023 Telephone encounter Maddison Serna LPN Work Phone: [facility] Comment on above: RETURN TO WORK WITHO [employer] Start: 10-21-2023 End: 10-22-2023 ambulatory [facility] Start: 10-17-2023 End: 10-17-2023 ambulatory [facility] Start: 10-10-2023 End: 10-10-2023 Subsequent care visit Mallika Conn APRN-CNM Work Phone: [facility] Comment on above: GA: 30w0d Start: 10-10-2023 End: 10-10-2023 ambulatory MALLIKA CONN [facility] Start: 09-18-2023 End: 09-18-2023 Emergency department patient visit NO PCP NO PCP [facility] Start: 09-12-2023 End: 09-12-2023 Subsequent care visit Mallika Conn APRN-CNM Work Phone: [facility] Comment on above: GA: 26w0d Start: 09-12-2023 End: 09-12-2023 ambulatory [facility] Start: 09-04-2023 End: 09-04-2023 ambulatory AMAYA M [facility] Start: 09-02-2023 End: 09-02-2023 Telephone encounter Mallika Conn BEEF SPECIALIST-CNM Work Phone: [facility] Start: 08-30-2023 End: 08-31-2023 ambulatory [facility] Margarita [facility] Start: 08-30-2023 End: 09-02-2023 Telephone encounter Javon Gupta MD Work Phone: [facility] Comment on above: Second trimester pre gnancy (Primary Dx); Late care in second trimester NEW PATIENT REFERRAL Start: 08-29-2023 End: 08-30-2023 ambulatory [facility] Start: 08-29-2023 End: 08-29-2023 [facility] Start: 08-29-2023 End: 08-29-2023 Initial care visit Mallika Conn BEEF SPECIALIST-CNM Work Phone: [facility] Comment on above: GA: 24w0d Start: 08-29-2023 End: 08-29-2023 ambulatory [facility] Start: 08-28-2023 End: 08-29-2023 ambulatory HUA GARCIAWVRADHA [facility] Start: 08-28-2023 End: 08-28-[address] 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 [facility] Comment on above: History of d karen, currently (Primary Dx); History of twin in prior ; History of prior with short cervix, currently ; 23 weeks gestation of Start: 08-22-2023 End: 08-22-2023 Emergency department patient visit NO PCP NO PCP [facility] Start: 05-13-2023 Telephone encounter [facility] Work Phone: [facility] Start: 05-10-2023 Telephone encounter Zayra Navarrete RN [facility] Start: 12-03-2022 End: 12-04-2022 Emergency department patient visit MARILIN RODRIGEZ [facility] Start: 11-16-2022 Patient encounter status Osmany Bella DO Work Phone: [facility] Start: 11-04-2022 End: 11-04-2022 Emergency department patient visit REINA FERMIN [facility] Start: 10-30-2022 End: 10-30-2022 Emergency department patient visit FELICIANO CARLTON [facility] Start: 09-13-[address] DOCTOR HOLT Facility : Start: 08-17-2022 End: 08-17-[address] DOCTOR HOLT Facility:[facility]1 Start: 11-14-2021 End: 11-14-2021 ambulatory Amaya Luu Other [facility] Other Start: 11-14-2021 Office outpatient ne w 30 minutes Amaya Luu [facility] Antonio Start: 10-30-2021 End: 10-31-[address] DOCTOR HOLT Facility:[facility]1 Start: 08-22-2020 End: 08-28-2023 Patient encounter status Zayra Navarrete RN [facility] Procedures Date Procedure Procedure Detail Performing Clinician Start: 08-12-2024 Urnls dip stick/tabl et rgnt non-auto w/o micrscp Osmany Jena DO Work Phone: Start: 08-03-2024 H/O: section Previous delivery affecting , antepartum Guerrero Johnson BEEF SPECIALIST-CNM Work Phone: Start: 09-12-2023 Adult depression screening assessment Mallika Conn BEEF SPECIALIST-CNM Work Phone: Start: 08-29-2023 Adult depression screening assessment Mallika Conn BEEF SPECIALIST-CNM Work Phone: Start: 08-28-2023 Adult depression screening assessment [facility] 2 Start: 04-05-2023 Adult depression screening assessment Zayra Navarrete RN Plan of Treatment Date Care Activity Detail Author Start: 10-09-2033 DTaP,Tdap and Td Vaccines (8 - Td or Tdap) DTaP,Tdap and Td Vaccines (8 - Td or Tdap) [facility] Start: 08-03-2025 Adult BMI Screening Adult BMI Screen ing [facility] Start: 08-03-2025 Tobacco Screening Tobacco Screening [facility] Start: 05-15-2025 Screening for Chlamy spencer trachomatis Chlamydia Screening [facility] Start: 12-27-2024 DTaP,Tdap and Td Vaccines (7 - Td or Tdap) DTaP,Tdap and Td Vaccines (7 - Td or Tdap) [facility] Start: 12-05-2024 Adult BMI Screening Adult BMI Screen ing [facility] Start: 12-05-2024 Tobacco Screening Tobacco Screening [facility] Start: 11-26-2024 Adult BMI Screening Adult BMI Screen ing [facility] Start: 11-26-2024 Tobacco Screening Tobacco Screening [facility] Start: 11-18-2024 Adult BMI Screening Adult BMI Screen ing [facility] Start: 11-18-2024 Tobacco Screening Tobacco Screening [facility] Start: 11-16-2024 Screening for Chlamy spencer trachomatis Chlamydia Screening [facility] Start: 10-20-2024 Tobacco Screening Tobacco Screening [facility] Start: 10-16-2024 Screening for Chlamy spencer trachomatis Chlamydia Screening [facility] Start: 10-09-2024 Adult BMI Screening Adult BMI Screen ing [facility] Start: 10-09-2024 Tobacco Screening Tobacco Screening [facility] Start: 09-11-2024 Adult BMI Screening Adult BMI Screen ing [facility] Start: 09-11-2024 Depression Screening Depression Scre ening [facility] Start: 09-11-2024 Tobacco Screening Tobacco Screening [facility] Start: 09-02-2024 End: 09-02-2024 Patient encounter procedure 09/02/2024 2:40 PM EDT Routine [facility] [address] [facility] [id number] Osmany Bella, DO [address], [place] [id number] [facility] Start: 08-28-2024 Adult BMI Screening Adult BMI Screen ing [facility] Start: 08-28-2024 Depression Screening Depression Scre ening [facility] Start: 08-28-2024 Screening for Chlamy spencer trachomatis Chlamydia Screening [facility] Start: 08-28-2024 Tobacco Screening Tobacco Screening [facility] Start: 08-27-2024 Adult BMI Screening Adult BMI Screen ing [facility] Start: 08-27-2024 Depression Screening Depression Scre ening [facility] Start: 08-27-2024 Tobacco Screening Tobacco Screening [facility] Start: 08-22-2024 Adult BMI Screening Adult BMI Screen ing [facility] Start: 08-22-2024 Tobacco Screening Tobacco Screening [facility] Start: 08-12-2024 End: 08-12-2024 Patient encounter procedure 08/12/2024 2:50 PM EDT Routine [facility] [address] [facility] [id number] Osmany Bella, DO [address], [place] [id number] [facility] Start: 08-12-2024 End: 08-12-2025 ABO/Rh ABO/Rh Lab Routine Missed menses , unspecified gestational age Expected: 08/12/2024 (Approximate), Expires: 08/12/2025 [facility] Comment on above: Expected: 08/12/2024 (Approximate), Expires: 08/12/2025 Start: 08-12-2024 End: 08-12-2025 Blood type and Indirect antibody screen panel - Blood Type and screen Lab Routine Missed menses , unspecified gestational age Expected: 08/12/2024 (Approximate), Expires: 08/12/2025 [facility] Comment on above: Expected: 08/12/2024 (Approximate), Expires: 08/12/2025 Start: 08-12-2024 End: 08-12-2025 CBC panel - Blood by Automated count CBC Lab Routine Diabetes mellitus screening Expected: 08/12/2024 (Approximate), Expires: 08/12/2025 [facility] Comment on above: Expected: 08/12/2024 (Approximate), Expires: 08/12/2025 Start: 08-12-2024 End: 08-12-2025 Measurement of glucose 1 hour after glucose challenge for glucose tolerance test Glucose tolerance, 1 hour Lab Routine Diabetes mellitus screening Expected: 08/12/2024 (Approximate), Expires: 08/12/2025 [facility] Comment on above: Expected: 08/12/2024 (Approximate), Expires: 08/12/2025 Start: 07-28-2024 End: 07-28-2024 Professional / ancillary services management 07/28/2024 2:30 PM EDT Ancillary Procedure [facility] [address] [place] [address] [place] [address] [facility] Start: 07-16-2024 End: 07-16-2025 ABO/Rh ABO/Rh Lab Routine Missed menses , unspecified gestational age Expected: 07/16/2024 (Approximate), Expires: 07/16/2025 [facility] Comment on above: Expected: 07/16/2024 (Approximate), Expires: 07/16/2025 Start: 07-16-2024 End: 08-16-2024 Alpha fetoprotein, maternal Alpha fetoprotein, maternal Lab Routine Second trimester 21 weeks gestation of Expected: 07/16/2024 (Approximate), Expires: 08/16/2024 [facility] Comment on above: Expected: 07/16/2024 (Approximate), Expires: 08/16/2024 Start: 07-16-2024 End: 07-16-2025 Blood type and Indirect antibody screen panel - Blood Type and screen Lab Routine Missed menses , unspecified gestational age Expected: 07/16/2024 (Approximate), Expires: 07/16/2025 [facility] Work Phone: Comment on above: Expected: 07/16/2024 (Approximate), Expires: 07/16/2025 Start: 07-16-2024 End: 07-16-2025 Drugs of abuse panel - Urine by Screen method Rapid drug screen, urine Lab Routine , unspecified gestational age Encounter for supervision of normal first in first trimester Expected: 07/16/2024 (Approximate), Expires: 07/16/2025 [facility] Comment on above: Expected: 07/16/2024 (Approximate), Expires: 07/16/2025 Start: 07-16-2024 End: 07-16-2025 US for US OB 14+ weeks anatomy scan Imaging Routine Screening, , for anatomic survey Expected: 07/16/2024, Expires: 07/16/2025 [facility] Comment on above: Expected: 07/16/2024 , Expires: 07/16/2025 Start: 06-19-2024 End: 06-19-2024 ambulatory 06/19/2024 10:30 AM EST Initial [facility] [address] [place] [phone] [facility] Start: 06-19-2024 End: 06-19-2024 Professional / ancillary services management 06/19/2024 10:00 AM EST Ancillary Procedure [facility] [address] [place] [phone] [facility] Start: 04-05-2024 Adult BMI Screening Adult BMI Screen ing [facility] Start: 04-05-2024 Depression Screening Depression Scre ening [facility] Start: 04-05-2024 Tobacco Screening Tobacco Screening [facility] Start: 01-25-2024 Screening for Chlamy spencer trachomatis Chlamydia Screening [facility] Start: 01-05-2024 COVID-19 Vaccine ( season) COVID-19 Vaccine () [facility] Start: 01-05-2024 Influenza vaccination Influenza Vacc ine [facility] Start: 12-06-2023 End: 12-06-2023 Patient encounter procedure 12/06/2023 1:00 PM EDT Routine [facility] [address] [place] [phone] Amaya Cruz, BEEF SPECIALIST-JUMP ROLL OPERATOR [address] [facility] [address] [place], [place] [id number] [facility] Start: 11-27-2023 End: 11-27-2023 Patient encounter procedure 11/27/2023 11:00 AM EDT Routine [facility] [address] [place] [address] [facility] Start: 10-24-2023 End: 10-24-2023 Patient encounter procedure 10/24/2023 2:45 PM EDT Routine [facility] [address] [address] Mallika Conn APRN-CNM [address] [address] [facility] Start: 10-10-2023 End: 10-10-2023 Patient encounter procedure 10/10/2023 3:30 PM EDT Routine [facility] [address] [facility] [address] [place] [address] Mallika Conn APRN-CNChago [address] [address] [facility] Start: 09-26-2023 End: 09-26-2023 Patient encounter procedure 09/26/2023 3:00 PM EDT Office Visit [facility] [address] [facility] [address] [place] [address] Sabiha Dior APRN-JUMP ROLL OPERATOR [address] [facility] [place] [address] [facility] Start: 09-12-2023 End: 09-12-2023 Patient encounter procedure 09/12/2023 3:30 PM EDT Routine [facility] [address] [place] [address] Mallika Conn APRN-CNM [address] [place] [address] [facility] Start: 09-09-2023 End: 09-09-2023 Patient encounter procedure 09/09/2023 2:45 PM EDT Office Visit [facility] [address] [facility] [address] [place] [address] Sha Bright, BLANCA [address] [facility] [address] [place] [address] [facility] Start: 09-09-2023 Screening for malign ant neoplasm of cervix Pap Smear [facility] Start: 09-04-2023 End: 09-04-2023 ambulatory 09/04/2023 3:45 PM EDT Initial [facility] [address] [place] [address] Mallika Conn APRN-CNM [address] [place] [address] [facility] Start: 09-04-2023 End: 09-04-2023 Patient encounter procedure 09/04/2023 8:15 AM EDT Appointment [facility] [place] [address] [facility] [address] [place] [address] [facility] [place] Start: 08-28-2023 End: 08-28-2023 ambulatory 08/28/2023 1:00 PM EDT Initial [facility] [address] [facility] [address] [place] [address] [facility] Start: 08-28-2023 End: 08-28-2023 Patient encounter procedure 08/28/2023 12:30 PM EDT Appointment [facility] [address] [facility] [place] [address] [facility] Start: 08-23-2023 End: 08-22-2024 US for in second or third trimester Ultrasound greater than 14 weeks single transabdominal Imaging Routine History of delivery, currently History of twin in prior History of prior with short cervix, currently Expected: 08/23/2023, Expires: 08/22/2024 [facility] Comment on above: Expected: 08/23/2023 , Expires: 08/22/2024 Start: 08-23-2023 End: 08-22-2024 US MFM with or without consult US MFM with or without consult Imaging Routine History of delivery, currently History of twin in prior History of prior with short cervix, currently Expected: 08/23/2023, Expires: 08/22/2024 [facility] Work Phone: Comment on above: Expected: 08/23/2023 , Expires: 08/22/2024 Start: 01-04-2023 COVID-19 Vaccine ( season) COVID-19 Vaccine () [facility] Start: 01-04-2023 Influenza vaccination Influenza Vacc ine [facility] Start: 2020 Adult BMI Follow Up Plan Adult BMI Follow Up Plan [facility] End: 08-28-2024 Bacteria identified in Urine by Culture Urine Culture Microbiology Routine Second trimester Late care affecting in second trimester 1 Occurrences starting 08/29/2023 until 08/28/2024 [facility] Comment on above: 1 Occurrences starti ng 08/29/2023 until 08/28/2024 Bacteria identified in Urine by Culture Urine Culture Microbiology Routine Second trimester Late care affecting in second trimester 08/29/2023 9:47 PM EDT [facility] Bacteria identified in Urine by Culture Urine culture Microbiology Routine Missed menses Ordered: 07/16/2024 [facility] Comment on above: Ordered: 07/16/2024 End: 08-27-2024 Carrier Study Non-[facility] Carrier Study Non-[facility] Lab Routine Screening for genetic disease carrier status 1 Occurrences starting 08/28/2023 until 08/27/2024 [facility] Comment on above: 1 Occurrences starti ng 08/28/2023 until 08/27/2024 End: 08-25-2024 CBC W Auto Differential panel - Blood CBC auto differential Lab Routine care, subsequent , second trimester Short interval between pregnancies affecting in second trimester, antepartum 1 Occurrences starting 08/28/2023 until 08/25/2024 [email or web address] Work Phone: Comment on above: 1 Occurrences starti ng 08/28/2023 until 08/25/2024 CBC W Auto Different ial panel - Blood CBC and differential Lab Routine Missed menses , unspecified gestational age Ordered: 07/16/2024 [facility] Comment on above: Ordered: 07/16/2024 CHLAMYDIA TRACHOMATI S (GENITO/STI) CHLAMYDIA TRACHOMATIS (GENITO/STI) Lab Routine STD exposure Ordered: 08/12/2024 [facility] Comment on above: Ordered: 08/12/2024 End: 08-28-2024 Chlamydia/GC by PCR [facility] Chlamydia/GC by PCR [facility] Microbiology Routine Screen for STD (sexually transmitted disease) Second trimester Late care affecting in second trimester 1 Occurrences starting 08/29/2023 until 08/28/2024 [email or web address] Work Phone: Comment on above: 1 Occurrences starti ng 08/29/2023 until 08/28/2024 Chlamydia/GC by PCR [facility] Chlamydia/GC by PCR [facility] Microbiology Routine Screen for STD (sexually transmitted disease) Second trimester Late care affecting in second trimester 08/29/2023 9:49 PM EDT [facility] Cervical or vaginal smear or scraping study Pap Smear Pathology and Cytology Routine Well woman exam with routine gynecological exam Ordered: 08/12/2024 [employer] Work Phone: Comment on above: Ordered: 08/12/2024 End: 08-28-2024 ECG 12 lead ECG 12 lead ECG Routine Late care affecting in second trimester Chest pain, unspecified type Heart palpitations 1 Occurrences starting 08/29/2023 until 08/28/2024 [facility] Comment on above: 1 Occurrences starti ng 08/29/2023 until 08/28/2024 End: 08-29-2024 Glucose 1h post 50g load Glucose 1h post 50g load Lab Routine Second trimester Late care in second trimester 1 Occurrences starting 08/30/2023 until 08/29/2024 [email or web address] Work Phone: Comment on above: 1 Occurrences starti ng 08/30/2023 until 08/29/2024 End: 08-28-2024 Glucose Tolerance, Fasting Glucose Tolerance, Fasting Lab Routine Second trimester Late care affecting in second trimester 1 Occurrences starting 08/29/2023 until 08/28/2024 [facility] Comment on above: 1 Occurrences starti ng 08/29/2023 until 08/28/2024 End: 08-28-2024 Glucose, 2 hour Post 75gm load Glucose, 2 hour Post 75gm load Lab Routine Second trimester Late care affecting in second trimester 1 Occurrences starting 08/29/2023 until 08/28/2024 [facility] Comment on above: 1 Occurrences starti ng 08/29/2023 until 08/28/2024 Hemoglobin A1c/Hemoglobin.total in Blood Hemoglobin A1c Lab Routine Missed menses , unspecified gestational age Ordered: 07/16/2024 [facility] Comment on above: Ordered: 07/16/2024 End: 08-25-2024 Hepatitis B surface antigen Hepatitis B surface antigen Lab Routine care, subsequent , second trimester Short interval between pregnancies affecting in second trimester, antepartum 1 Occurrences starting 08/28/2023 until 08/25/2024 [facility] Comment on above: 1 Occurrences starti ng 08/28/2023 until 08/25/2024 Hepatitis B virus surface Ag [Presence] in Serum or Plasma by Immunoassay Hepatitis B surface antigen Lab Routine Missed menses , unspecified gestational age Ordered: 07/16/2024 [facility] Comment on above: Ordered: 07/16/2024 Hepatitis C virus Ab [Presence] in Serum or Plasma by Immunoassay Hepatitis C antibody Lab Routine Missed menses , unspecified gestational age Ordered: 07/16/2024 [facility] Comment on above: Ordered: 07/16/2024 End: 08-25-2024 Hepatitis C(HCV) Ab w/ Reflex to PCR Hepatitis C(HCV) Ab w/ Reflex to PCR Lab Routine care, subsequent , second trimester Short interval between pregnancies affecting in second trimester, antepartum 1 Occurrences starting 08/28/2023 until 08/25/2024 [facility] Comment on above: 1 Occurrences starti ng 08/28/2023 until 08/25/2024 End: 08-25-2024 HIV 1&2 AB/AG Screen (P24 AG) HIV 1&2 AB/AG Screen (P24 AG) Lab Routine care, subsequent , second trimester Short interval between pregnancies affecting in second trimester, antepartum 1 Occurrences starting 08/28/2023 until 08/25/2024 [facility] Comment on above: 1 Occurrences starti ng 08/28/2023 until 08/25/2024 HIV-1/HIV-2 antigen/antibody combination immunoassay HIV-1 and HIV-2 antibodies Lab Routine Missed menses , unspecified gestational age Ordered: 07/16/2024 [facility] Comment on above: Ordered: 07/16/2024 HIV-1/HIV-2 antigen/antibody combination immunoassay HIV-1 and HIV-2 antibodies Lab Routine Missed menses , unspecified gestational age Ordered: 08/12/2024 [facility] Comment on above: Ordered: 08/12/2024 Neisseria gonorrhoea e DNA [Presence] in Unspecified specimen by BI with probe detection Neisseria gonorrhea DNA probe, direct Lab Routine STD exposure Ordered: 08/12/2024 [facility] Comment on above: Ordered: 08/12/2024 End: 08-27-2024 Panorama Non[facility] Non[facility] Lab Routine Encounter for screening for other genetic defects 1 Occurrences starting 08/28/2023 until 08/27/2024 [facility] Comment on above: 1 Occurrences starti ng 08/28/2023 until 08/27/2024 Reagin Ab [Presence] in Serum by RPR RPR Lab Routine Missed menses , unspecified gestational age Ordered: 07/16/2024 [facility] Comment on above: Ordered: 07/16/2024 Rubella antibody, IgG Rubella an tibody, IgG Lab Routine Missed menses , unspecified gestational age Ordered: 07/16/2024 [facility] Comment on above: Ordered: 07/16/2024 End: 08-25-2024 Rubella IGG immune status Rubella IGG immune status Lab Routine care, subsequent , second trimester Short interval between pregnancies affecting in second trimester, antepartum 1 Occurrences starting 08/28/2023 until 08/25/2024 [facility] Comment on above: 1 Occurrences starti ng 08/28/2023 until 08/25/2024 End: 08-27-2024 Sickle solubility Sickle solubility Lab Routine care, subsequent , second trimester 1 Occurrences starting 08/28/2023 until 08/27/2024 [facility] Comment on above: 1 Occurrences starti ng 08/28/2023 until 08/27/2024 SURESWAB(R) ADVANCED VAGINITIS PLUS, TMA SURESWAB(R) ADVANCED VAGINITIS PLUS, TMA Pathology and Cytology Routine Vaginal discharge Ordered: 08/12/2024 [facility] Comment on above: Ordered: 08/12/2024 End: 08-25-2024 Syphilis Total(Unknown Syphilis Status) Syphilis Total(Unknown Syphilis Status) Lab Routine care, subsequent , second trimester Short interval between pregnancies affecting in second trimester, antepartum 1 Occurrences starting 08/28/2023 until 08/25/2024 [facility] Comment on above: 1 Occurrences starti ng 08/28/2023 until 08/25/2024 Thyrotropin [Units/volume] in Serum or Plasma TSH Lab Routine Abnormal TSH Ordered: 07/16/2024 [facility] Comment on above: Ordered: 07/16/2024 End: 08-25-2024 Type and screen Type and screen Blood Bank Routine care, subsequent , second trimester Short interval between pregnancies affecting in second trimester, antepartum 1 Occurrences starting 08/28/2023 until 08/25/2024 [facility] Comment on above: 1 Occurrences starti ng 08/28/2023 until 08/25/2024 End: 08-28-2024 Vaginitis Panel PCR Vaginitis Panel PCR Microbiology Routine Screen for STD (sexually transmitted disease) Second trimester Late care affecting in second trimester 1 Occurrences starting 08/29/2023 until 08/28/2024 [facility] Comment on above: 1 Occurrences starti ng 08/29/2023 until 08/28/2024 Vaginitis Panel PCR Vaginitis Pa arnie PCR Microbiology Routine Screen for STD (sexually transmitted disease) Second trimester Late care affecting in second trimester 08/29/2023 9:49 PM EDT [facility] End: 08-25-2024 Varicella zoster antibody, IgG Varicella zoster antibody, IgG Lab Routine care, subsequent , second trimester Short interval between pregnancies affecting in second trimester, antepartum 1 Occurrences starting 08/28/2023 until 08/25/2024 [facility] [facility] Comment on above: 1 Occurrences starti ng 08/28/2023 until 08/25/2024 Immunizations Immunization Date Immunization Notes Care Provider Matilda escobedo 10-10-2023 diphtheria, tetanus toxoids and acellular pertussis vaccine, unspecified formulation Mallika Conn APRN-SHANIA Work Phone: [facility] 10-10-2023 tetanus toxoid, redu libby diphtheria toxoid, and acellular pertussis vaccine, adsorbed Mallika Conn APRN-CNChago Work Phone: [facility] 10-10-2023 Immunization, In Cli aletha,; Translations: [Drug or medicament (substance)] Mallika DANIELS Work Phone: [facility] 03-12-2019 influenza, injectabl e, quadrivalent, preservative free Zayra Navarrete RN [facility] 03-12-2019 influenza virus vacc ine, unspecified formulation Zayra Navarrete RN [facility] 12-28-2016 Human Papillomavirus 9-valent vaccine Mallika Raúl RIVASN-CN Work Phone: [facility] 12-28-2016 meningococcal oligosaccharide (groups A, C, Y and W-135) diphtheria toxoid conjugate vaccine (MCV4O) Mallika Raúl BEEF SPECIALIST-CNM Work Phone: [facility] 12-27-2014 tetanus toxoid, redu libby diphtheria toxoid, and acellular pertussis vaccine, adsorbed Mallikaher Conn BEEF SPECIALIST-CNM Work Phone: [facility] 03-13-2007 influenza, seasonal, injectable Mallika Raúl BEEF SPECIALIST-CNM Work Phone: [facility] 12-04-2006 diphtheria, tetanus toxoids and acellular pertussis vaccine Mallika Raúl BEEF SPECIALIST-CNM Work Phone: [facility] 12-04-2006 measles, mumps and rubella virus vaccine Mallikaher Raúl RIVASN-CNM Work Phone: [facility] 12-04-2006 poliovirus vaccine, inactivated Mallika Raúl BEEF SPECIALIST-CNM Work Phone: [facility] 02-25-2006 influenza, seasonal, injectable Mallika Raúl RIVASN-CNM Work Phone: [facility] 10-19-2003 diphtheria, tetanus toxoids and acellular pertussis vaccine, unspecified formulation Mallikaher Raúl RIVASN-CNM Work Phone: [facility] 10-19-2003 haemophilus influenz ae type b vaccine, conjugate unspecified formulation Mallikaher Raúl RIVASN-CNM Work Phone: [facility] 10-19-2003 hepatitis B vaccine, pediatric or pediatric/adolescent dosage Mallikaher Raúl BELLA-CNM Work Phone: [facility] 10-19-2003 measles, mumps and rubella virus vaccine Mallikaher Raúl RIVASN-CNM Work Phone: [facility] 05-25-2003 diphtheria, tetanus toxoids and acellular pertussis vaccine, unspecified formulation Mallika Conn BEEF SPECIALIST-CNM Work Phone: [facility] 05-25-2003 haemophilus influenz ae type b vaccine, conjugate unspecified formulation Mallika Conn BEEF SPECIALIST-CNM Work Phone: [facility] 05-25-2003 hepatitis B vaccine, pediatric or pediatric/adolescent dosage Mallika Conn BEEF SPECIALIST-CNM Work Phone: [facility] 05-25-2003 pneumococcal conjuga te vaccine, 7 valent Mallika Conn BEEF SPECIALIST-CNM Work Phone: [facility] 05-25-2003 poliovirus vaccine, unspecified formulation Mallika Conn BEEF SPECIALIST-CNM Work Phone: [facility] 02-24-2003 diphtheria, tetanus toxoids and acellular pertussis vaccine, unspecified formulation Mallika Conn BEEF SPECIALIST-CNM Work Phone: [facility] 02-24-2003 haemophilus influenz ae type b vaccine, conjugate unspecified formulation Mallika Conn BEEF SPECIALIST-CNM Work Phone: [facility] 02-24-2003 pneumococcal conjuga te vaccine, 7 valent Mallika Conn BEEF SPECIALIST-CNM Work Phone: [facility] 02-24-2003 poliovirus vaccine, unspecified formulation Mallika Conn BEEF SPECIALIST-CNM Work Phone: [facility] 2002 diphtheria, tetanus toxoids and acellular pertussis vaccine, unspecified formulation Mallika Conn BEEF SPECIALIST-CNM Work Phone: [facility] 2002 haemophilus influenz ae type b vaccine, conjugate unspecified formulation Mallika Conn BEEF SPECIALIST-CNM Work Phone: [facility] 2002 hepatitis B vaccine, pediatric or pediatric/adolescent dosage Mallika Conn BEEF SPECIALIST-CNM Work Phone: [facility] 2002 pneumococcal conjuga te vaccine, 7 valent Mallika Conn BEEF SPECIALIST-CNM Work Phone: [employer] 2002 poliovirus vaccine, unspecified formulation Mallika Conn BEEF SPECIALIST-CNM Work Phone: [facility] Payers Date Payer Category Payer Medicaid [id number] 2023 Medicaid [id number] 2002 Unknown [id number] 2.16.84 0.1.869494.3.579.2.593 2002 Unknown [id number] 2.16.84 0.1.676179.3.579.2.593 2002 Unknown [id number] 2.16.84 0.1.976818.3.579.2.593 2002 Unknown [id number] 2.16.8 40.1.200831.3.579.2.173 2002 Unknown [id number] 2.16.8 40.1.058553.3.579.2.173 2002 Unknown [id number] 2.16.8 40.1.237354.3.579.2.173 2002 Unknown [id number] 2.16.8 40.1.185108.3.579.2.1286 2002 Unknown [id number] 2.16.8 40.1.008173.3.579.2.1285 2002 Unknown [id number] 2.16.8 40.1.926143.3.579.2.128 2002 Unknown [id number] 2.16.8 40.1.783900.3.579.2.1285 2002 Unknown [id number] 2.16.8 40.1.302427.3.579.2.1285 2002 Unknown [id number] 2.16.8 40.1.969006.3.579.2.1285 2002 Unknown [id number] 2.16.8 40.1.705879.3.579.2.1285 2002 Unknown [id number] 2.16.8 40.1.899430.3.579.2.1285 2002 Unknown [id number] 2.16.8 40.1.774400.3.579.2.1285 2002 Unknown [id number] 2.16.8 40.1.204725.3.579.2.1285 2002 Unknown [id number] 2.16.8 40.1.190109.3.579.2.1285 2002 Unknown [id number] 2.16.8 40.1.797399.3.579.2.1285 2002 Unknown [id number] 2.16.8 40.1.751325.3.579.2.1285 2002 Unknown [id number] 2.16.8 40.1.863546.3.579.2.1285 2002 Unknown [id number] 2.16.8 40.1.426965.3.579.2.1285 2002 Unknown [id number] 2.16.8 40.1.005239.3.579.2.1285 2002 Unknown [id number] 2.16.84 0.1.745996.3.579.2.1258 2002 Unknown [id number] 2.16.84 0.1.491603.3.579.2.1258 2002 Unknown [id number] 2.16.84 0.1.656807.3.579.2.1258 2002 Unknown [id number] 2.16.84 0.1.015038.3.579.2.1258 2002 Unknown [id number] 2.16. 840.1.035419.3.579.2.1285 2002 Unknown [id number] 2.16. 840.1.547288.3.579.2.1285 2002 Unknown [id number] 2.16. 840.1.214588.3.579.2.[facility] Unknown [id number] 2.16. 840.1.833824.3.579.2.1285 2002 Unknown [id number] 2.16. 840.1.705050.3.579.2.1285 2002 Unknown [id number] 2.16. 840.1.219283.3.579.2.[facility] Unknown [id number] 2.16.8 40.1.224770.3.579.2.1285 2002 Unknown [id number] 2.16.8 40.1.510177.3.579.2.1285 2002 Unknown [id number] 2.16.8 40.1.254722.3.579.2.[facility] Unknown [id number] 2.16.8 40.1.421904.3.579.2.1285 2002 Unknown [id number] 2.16.8 40.1.352724.3.579.2.[facility] Unknown [id number] 2.16.8 40.1.024441.3.579.2.[facility] [address] [id number] [id number] 2.16.840.1.971086.19 Social History Date Type Detail Facility Start: 03-26-2021 End: 08-03-2024 Sex Assigned At [facility] Tobacco smoking stat [facility] Tobacco smoking consumption unknown [facility] Start: 2002 Sex assigned at Not on file [facility] Start: 06-23-2022 Tobacco smoking status [facility] Never smoked tobacco [facility] Start: 06-23-2022 Tobacco use and exposure Smokeless tobacco non-user [facility] Start: 08-23-2023 End: 08-03-2024 Alcoholic beverage intake Ex-drinker (finding) [facility] Start: 03-26-2021 End: 08-03-2024 History of Social function [facility] Do you belong to any clubs or organizations such as episcopal groups, unions, fraternal or athletic groups, or school groups? No [facility] How often do you att end meetings of the clubs or organizations you belong to? Patient declined [facility] Are you now , , , , never or living with a partner? Living with partner [facility] How often to you hav e a drink containing alcohol? Never [facility] How hard is it for y ou to pay for the very basics like food, housing, medical care, and heating Somewhat hard [facility] Do you feel stress - tense, restless, nervous, or anxious, or unable to sleep at night because your mind is troubled all the time - these days [OSQ] To some extent [facility] Start: 03-26-2021 Education 12 [facility] Start: 03-28-2023 [facility] Start: 03-15-2024 Alcohol Comment occasionally [facility] Start: 12-09-2014 Sex Female (finding) [facility] Goals Date Patient Goal Desired Activity /State Personal health goal Comment on above: Formatting of this n ote might be different from the original. Goal: Decrease SI and symptoms of depression Intervention: 1:1 group therapy, psychological evaluation, follow up, medication education and family meeting. (positive milieu) Goal: Develop coping skills to handle stressors Intervention:1:1 group therapy, psychological evaluation, follow up, medication education and family meeting. (positive milieu) Goal: Increase positive communication skills Intervention:1:1 group therapy, psychological evaluation, follow up, medication education and family meeting. (positive milieu) Strengths: my coping, outgoing Weaknesses: anger, sometimes I talk to people in a mean way. Clinical Notes 11-14-2021 to 08-12-2024 Helena Rea LPN - 08/12/2024 2:50 PM FRANCES Lassiter - 08/03/2024 12:15 PM Tasha Olsen LPN - 07/16/2024 8:30 AM Aman Rea LPN - 06/02/2024 11:20 AM ESTPatient Instructions Note Date & Type Note Facility 08-12-2024 History of Present illness Narrative Reason for Appointment: Patient ID: Georgie Pond is a 23 y.o. female who presents for No chief complaint on file. Patient presents today for Annual Exam., STD Check., and Return OB appointment. MEDICATIONS Current Outpatient Medications Medication Instructions MV & Min w/FA-DHA ( Gummies) 0.18-25 MG chewable tablet 1 each, Oral, Daily ALLERGIES No Known Allergies PROBLEMS Active Ambulatory Problems Diagnosis Date Noted Missed period 10/16/2022 Acute back pain with sciatica, right 06/24/2019 Acute cystitis with hematuria 07/06/2021 Advice given about COVID-19 virus by telephone 03/06/2021 Dysuria 07/06/2021 Encounter for routine child health examination without abnormal findings 08/22/2020 Episode of recurrent major depressive disorder (CMS/HCC) 07/06/2021 Gastroesophageal reflux disease with esophagitis without hemorrhage 08/03/2021 Lumbar spine pain 06/02/2019 Slow transit constipation 03/12/2019 Resolved Ambulatory Problems Diagnosis Date Noted No Resolved Ambulatory Problems No Additional Past Medical History HISTORY PAST MEDICAL HISTORY SOCIAL HISTORY No past medical history on file. Social History Tobacco Use Smoking status: Not on file Smokeless tobacco: Not on file Substance Use Topics Alcohol use: Not on file Drug use: Not on file FAMILY HISTORY No family history on file. SURGICAL HISTORY Past Surgical History: Procedure Laterality Date SECTION, LOW TRANSVERSE 12/12/2023 CT ANGIOGRAM CHEST 12/15/2023 CT ANGIOGRAM CHEST REVIEW OF SYSTEMS Review of Systems: Review of Systems Constitutional: Negative. HENT: Negative. Eyes: Negative. Respiratory: Negative. Cardiovascular: Negative. Gastrointestinal: Negative. Genitourinary: Negative. Musculoskeletal: Negative. Skin: Negative. Neurological: Negative. All other systems reviewed and are negative. Hematological: Negative. Endocrine: Negative. Allergic/Immunologic: Negative. OBJECTIVE Objective: Physical Exam Constitutional: Appearance: Normal appearance. She is well-developed. Genitourinary: Vulva normal. Breasts: Breasts are soft. Right: Normal. Left: Normal. Cardiovascular: Rate and Rhythm: Normal rate and regular rhythm. Pulmonary: Effort: Pulmonary effort is normal. Breath sounds: Normal breath sounds. Abdominal: General: Bowel sounds are normal. There is no distension. Palpations: Abdomen is soft. Tenderness: There is no abdominal tenderness. There is no guarding or rebound. Musculoskeletal: General: No swelling. Normal range of motion. Right lower leg: No edema. Left lower leg: No edema. Neurological: Mental Status: She is alert and oriented to person, place, and time. Skin: General: Skin is warm and dry. Psychiatric: Mood and Affect: Mood normal. Behavior: Behavior normal. Vitals and nursing note reviewed. Exam conducted with a contact center manager present. Vitals: There is no height or weight on file to calculate BMI. BP: 106/72 No LMP recorded. Patient is . ASSESSMENT & PLAN ICD-10-CM 1. Well woman exam with routine gynecological exam Z01.419 POCT urinalysis dipstick manually resulted Pap Smear 2. Vaginal discharge N89.8 SURESWAB(R) ADVANCED VAGINITIS PLUS, TMA 3. STD exposure Z20.2 CHLAMYDIA TRACHOMATIS (GENITO/STI) Neisseria gonorrhea DNA probe, direct 4. Missed menses N92.6 Type and screen ABO/Rh HIV-1 and HIV-2 antibodies Type and screen ABO/Rh 5. , unspecified gestational age Z34.90 Type and screen ABO/Rh HIV-1 and HIV-2 antibodies Type and screen ABO/Rh Return OB/Annual Exam: Patient presents today for a annual exam/routine obstetrics appointment. Patient is currently 25w1d . Patient states she is doing well but has complaints of nausea in the morning. Pap and cultures was obtained without difficulty and patient was given orders for glucola order to be obtained. Pt has sciatica pain advised stretching and chiropractor. Orders Placed This Encounter Procedures CHLAMYDIA TRACHOMATIS (GENITO/STI) Neisseria gonorrhea DNA probe, direct Type and screen ABO/Rh HIV-1 and HIV-2 antibodies CBC Glucose tolerance, 1 hour POCT urinalysis dipstick manually resulted Follow Up: Patient is to schedule annual exam for next year and return to office in 4 weeks for OB appointment. Documented by Helena Rea LPN on behalf of: Osmany Bella DO documented in this encounter [facility] 08-03-2024 History of Present illness Narrative While in triage pt. Advised of Rx. For keflex for presumed UTI. Rx. For keflex sent. Urine culture pending and pt. Advised she may be advised to stop the Rx. If comes back negative. Pt. Verbalized understanding. FRANCES Littlejohn 08/03/24 1218 documented in this encounter [facility] 07-16-2024 History of Present illness Narrative Reason for Appointment: Patient ID: Georgie Pond is a 23 y.o. female who presents for Amenorrhea Patient presents today for a Nurse OB Intake appointment. Patient is 21w2d with a Estimated Date of Delivery: 11/24/24 OB History Para Term AB Living 5 2 1 1 2 3 SAB IAB Ectopic Multiple Live Births 2 1 3 # Outcome Date GA Lbr Toney/2nd Weight Sex Type Anes PTL Lv 5 Current 4 Term 12/12/23 39w0d 6 lb 11 oz F Vag-Spont ANDREINA 3A 02/03/23w2d 08:45 1 lb 13.5 oz M Vag-Spont None Y ANDREINA Complications: infant of 25 completed weeks of gestation 3B 02/03/23 25w2d 08:45 / 00:05 1 lb 13.5 oz M Vag-Spont None Y ANDREINA Complications: infant of 25 completed weeks of gestation 2 2020 Comments: very early 1st trimester Complications: Failure to Progress in Second Stage 1 SAB 2019 Comments: very early 1st trimester Current Medications: has a current medication list which includes the following prescription(s): metronidazole and gummies. Medical History: Active Ambulatory Problems Diagnosis Date Noted Missed period 10/16/2022 Acute back pain with sciatica, right 06/24/2019 Acute cystitis with hematuria 07/06/2021 Advice given about COVID-19 virus by telephone 03/06/2021 Dysuria 07/06/2021 Encounter for routine child health examination without abnormal findings 08/22/2020 Episode of recurrent major depressive disorder (CMS/HCC) 07/06/2021 Gastroesophageal reflux disease with esophagitis without hemorrhage 08/03/2021 Lumbar spine pain 06/02/2019 Slow transit constipation 03/12/2019 Resolved Ambulatory Problems Diagnosis Date Noted No Resolved Ambulatory Problems No Additional Past Medical History No family history on file. Social History Tobacco Use Smoking status: Not on file Smokeless tobacco: Not on file Substance Use Topics Alcohol use: Not on file Drug use: Not on file Past Surgical History: Procedure Laterality Date SECTION, LOW TRANSVERSE 12/12/2023 CT ANGIOGRAM CHEST 12/15/2023 CT ANGIOGRAM CHEST No Known Allergies Vitals: There is no height or weight on file to calculate BMI. BP: No LMP recorded. Patient is . Assessment/Plan Diagnoses and all orders for this visit: Missed menses - Type and screen; Future - ABO/Rh; Future - CBC and differential - Hemoglobin A1c - RPR - Rubella antibody, IgG - Hepatitis B surface antigen - Hepatitis C antibody - HIV-1 and HIV-2 antibodies - Urine culture - POCT , urine manually resulted - POCT urinalysis dipstick manually resulted , unspecified gestational age - Type and screen; Future - ABO/Rh; Future - CBC and differential - Hemoglobin A1c - RPR - Rubella antibody, IgG - Hepatitis B surface antigen - Hepatitis C antibody - HIV-1 and HIV-2 antibodies - Rapid drug screen, urine; Future Encounter for supervision of normal first in first trimester - Rapid drug screen, urine; Future Screening, , for anatomic survey - US OB 14+ weeks anatomy scan; Future Second trimester - Alpha fetoprotein, maternal; Future 21 weeks gestation of - Alpha fetoprotein, maternal; Future Abnormal TSH - TSH BV (bacterial vaginosis) - metroNIDAZOLE (Flagyl) 500 MG tablet; Take 1 tablet (500 mg) by mouth in the morning and 1 tablet (500 mg) before bedtime. Do all this for 7 days. Do not drink alcohol while taking this medication. Nurse Note: OB Intake: Patient presents today for first OB visit. Patients history has been reviewed in great detail including any potential risks. Patient signed consent forms and patient desires testing in both trimesters. Patient currently has no complaints and has been advised to drink 6-8 glasses of water a day, eat no raw or undercooked meat, and stay away from [facility]. Patient has also been advised to not change litter boxes and eat 6 small meals a day. Patient has been consulted regarding the do's and don'ts of . Patient was given labs and all questions and concerns were answered. Patient given MSAFP, Anatomy scan and TSH as she did have a slight abnormal with previous . Patient was sent in medication for BV. Follow Up: Patient is to return in 4 weeks for routine OB appointment. Follow Up: Patient is to have labs drawn at directed and return to office for initial OB appointment with provider. Patient may call office as needed with any concerns or questions. Nurse Visit Completed by: Kimi Olsen LPN documented in this encounter [facility] 06-02-2024 History of Present illness Narrative Reason for Appointment: Patient ID: Georgie Pond is a 23 y.o. female who presents for ER Follow-up (Pt was at [facility] ER on 05/15/2024 for vaginal bleeding. Pt had an US done and is @ 12w 3d . ) Patient presents today for vaginal bleeding in early and Acute Visit. MEDICATIONS Current Outpatient Medications Medication Instructions acetaminophen (TYLENOL) 1,000 mg, Oral, Every 6 hours PRN aspirin 81 MG chewable tablet chew and swallow 1 tablet by mouth every morning lansoprazole (PREVACID) 30 mg, Oral, Daily RT magnesium oxide (MAG-OX) 400 mg, Oral, Daily RT metoclopramide (REGLAN) 10 mg, Oral, 3 times daily omeprazole (PRILOSEC) 20 mg, Oral, Daily before breakfast, Do not crush or chew. polyethylene glycol (PEG) 3350 (MIRALAX) 17 g, Oral, Daily RT ALLERGIES No Known Allergies PROBLEMS Active Ambulatory Problems Diagnosis Date Noted Missed period 10/16/2022 Acute back pain with sciatica, right 06/24/2019 Acute cystitis with hematuria 07/06/2021 Advice given about COVID-19 virus by telephone 03/06/2021 Dysuria 07/06/2021 Encounter for routine child health examination without abnormal findings 08/22/2020 Episode of recurrent major depressive disorder (CMS/HCC) 07/06/2021 Gastroesophageal reflux disease with esophagitis without hemorrhage 08/03/2021 Lumbar spine pain 06/02/2019 Slow transit constipation 03/12/2019 Resolved Ambulatory Problems Diagnosis Date Noted No Resolved Ambulatory Problems No Additional Past Medical History HISTORY PAST MEDICAL HISTORY SOCIAL HISTORY No past medical history on file. Social History Tobacco Use Smoking status: Not on file Smokeless tobacco: Not on file Substance Use Topics Alcohol use: Not on file Drug use: Not on file FAMILY HISTORY No family history on file. SURGICAL HISTORY Past Surgical History: Procedure Laterality Date CT ANGIOGRAM CHEST 12/15/2023 CT ANGIOGRAM CHEST REVIEW OF SYSTEMS Review of Systems: Review of Systems Constitutional: Negative. HENT: Negative. Eyes: Negative. Respiratory: Negative. Cardiovascular: Negative. Gastrointestinal: Negative. Genitourinary: Positive for vaginal bleeding. Musculoskeletal: Negative. Skin: Negative. Neurological: Negative. All other systems reviewed and are negative. Hematological: Negative. Endocrine: Negative. Allergic/Immunologic: Negative. OBJECTIVE Objective: Physical Exam Constitutional: Appearance: Normal appearance. She is well-developed. Cardiovascular: Rate and Rhythm: Normal rate and regular rhythm. Pulmonary: Effort: Pulmonary effort is normal. Breath sounds: Normal breath sounds. Abdominal: General: Bowel sounds are normal. There is no distension. Palpations: Abdomen is soft. Tenderness: There is no abdominal tenderness. There is no guarding or rebound. Musculoskeletal: General: No swelling. Normal range of motion. Right lower leg: No edema. Left lower leg: No edema. Neurological: Mental Status: She is alert and oriented to person, place, and time. Skin: General: Skin is warm and dry. Psychiatric: Mood and Affect: Mood normal. Behavior: Behavior normal. Vitals and nursing note reviewed. Exam conducted with a contact center manager present. Vitals: There is no height or weight on file to calculate BMI. BP: No LMP recorded. Patient is . ASSESSMENT & PLAN ICD-10-CM 1. Encounter for follow-up Z09 2. Vaginal bleeding affecting early O20.9 Pt presents for follow up after vaginal bleeding in early . Heartbeat heard. Pt to return for intake. Documented by Helena Rea LPN on behalf of: Osmany Bella DO documented in this encounter [facility] 12-06-2023 History of Present illness Narrative Routine OB visit SUBJECTIVE Georgie Pond is a 23 y.o. at 38w1d by 19 wk US She denies regular contractions or abdominal pain (+) cramping, especially in the morning She denies vaginal bleeding, vaginal discharge, or loss of fluid. movement: present Other questions or concerns today: Pt was at [facility] yesterday with kidney stones. Planning to see urology as outpatient. Pt reports history of chronic headache, no AVALOS today, no visual changes or abd pain Pt has appt with Dr. Bella early next week. She is transferring her care and planning to deliver at [place]. OBJECTIVE Current Medications: Current Outpatient Medications: acetaminophen (TYLENOL EXTRA STRENGTH) 500 mg tablet, Take 2 tablets (1,000 mg total) by mouth every 6 (six) hours as needed for pain., Disp: , Rfl: CEPHalexin (KEFLEX) 500 mg capsule, Take 1 capsule (500 mg total) by mouth in the morning and 1 capsule (500 mg total) at noon and 1 capsule (500 mg total) in the evening and 1 capsule (500 mg total) before bedtime., Disp: , Rfl: docusate sodium (COLACE) 100 mg capsule, Take 1 capsule (100 mg total) by mouth daily as needed for constipation., Disp: 30 capsule, Rfl: 2 lansoprazole (PREVACID) 30 mg capsule, Take 1 capsule (30 mg total) by mouth in the morning., Disp: 30 capsule, Rfl: 12 magnesium oxide (MAGOX) 400 mg tablet, Take 1 tablet (400 mg total) by mouth in the morning., Disp: 30 tablet, Rfl: 4 polyethylene glycol (GLYCOLAX) 17 gram packet, Take 17 g by mouth in the morning. Pt has taken Miralax the past 3 days. (Patient not taking: Reported on 11/19/2023), Disp: , Rfl: vit,sal 74/iron/folic ( VITAMIN 1+1 ORAL), Take by mouth daily., Disp: , Rfl: Vitals BP 106/74 Wt 76.6 kg (168 lb 12.8 oz) LMP (LMP Unknown) BMI 30.87 kg/m See OB flowsheet Labs ABO/Rh: Lab Results Component Value Date ABORH O POSITIVE 02/03/2023 Group B Strep: Lab Results Component Value Date CULTURE 11/17/2023 NEGATIVE FOR GROUP B STREPTOCOCCUS BY NUCLEIC ACID AMPLIFICATION Hepatitis B Surface Antigen: Lab Results Component Value Date HEPBSAG Negative 08/29/2023 Rubella: Lab Results Component Value Date RUBELLAIMMU 1.3 08/29/2023 Varicella Lab Results Component Value Date VARIGG 0.3 08/29/2023 HIV: Lab Results Component Value Date HIV4 Non-Reactive 08/29/2023 RPR (VDRL): Lab Results Component Value Date SYPHILISTOT <0.2 08/29/2023 One hour GTT: Lab Results Component Value Date LABGLUC 94 08/30/2023 Three Hour GTT: Lab Results Component Value Date GLUF 71 08/30/2023 [id number] 115 (L) 08/30/2023 Physical Exam: General: Patient is well-appearing, alert, oriented, and in no distress Abd: soft, non-tender, gravid Ext: no edema FHT: 130 Fundal height: 37 cm ASSESSMENT & PLAN 23 y.o. @ 38w1d, KARTIK 12/19/2023, by Ultrasound presents for routine OB visit 1. 38 weeks gestation of Rh positive, GBS negative (11/17/23) 2. Short interval between pregnancies affecting , antepartum 3. Late care 4. Hx of delivery, currently Continue [facility] Reviewed warning signs including: Decreased movement Vaginal bleeding or fluid leaking Regular painful contractions Severe headache, not relieved with Tylenol Vision changes such as blurring or seeing floaters Right upper abdominal pain Sudden increase in swelling She was instructed to go to [facility] for evaluation if she experiences any of these symptoms. Keep appt with Dr. Bella 12/10/23 WILMER Stoll 12/06/23 1338 documented in this encounter [facility] 11-28-2023 Miscellaneous Notes Received breast pump orders from [employer]. Per the patient she would like the [employer] prescription signed. Sally Newman CNP signed the [employer] prescription. I put a note on the [employer] request stating the patient chose a different company & faxed it back. documented in this encounter [facility] 11-28-2023 Telephone encounter Note Received breast pump orders from [employer] & [employer]. Per the patient she would like the [employer] prescription signed. Sally Newman CNP signed the [employer] prescription. I put a note on the [employer] request stating the patient chose a different company & faxed it back. [facility] 11-27-2023 History of Present illness Narrative Routine OB Visit 23 y.o. at 36w6d. Positive movement. No regular contractions, vaginal bleeding or leaking of fluid. Patient was seen at [facility] triage Saturday for contractions and back pain. They diagnosed her with a UTI and kidney stones. She is on keflex. Patient is planning to transfer to Dr. Bella when her insurance changes on 12/05/23. Today patient c/o headaches that are not relieved with tylenol, visual disturbances described as blacking out my vision , epigastric pain. She states her sister had preeclampsia and had the same symptoms. Vitals: 11/27/23 1111 BP: 108/80 Weight: 75.3 kg (166 lb) complicated by: Patient Active Problem List Diagnosis Slow transit constipation Episode of recurrent major depressive disorder ([facility]) Intractable chronic migraine without aura Hx of delivery, currently Acute cystitis Marijuana use during Hx of thyroid disease Maternal varicella, non-immune Intrauterine Cystic fibrosis carrier Late care Short interval between pregnancies affecting , antepartum 1. Reviewed signs of labor and reinforced movement counts. 2. Patient sent to triage for evaluation. Nenita notified that patient is on her way. 3. GBS results reviewed (negative). 4. Discussed L&D visitation guidelines. 5. Reviewed Plan: Pain control: unsure plans to breastfeed Patient has a breast pump Log Check Scaler: Kadeem 6. Educational information given 7. Questions answered 8. Follow up 1 week WILMER Berumen 11/27/23 1138 Pt went to [place] ER on 7-19 for pain. Pt also states she is transferring to Dr Bella on 12-04 when her insurance changes and plans on delivering at [place]. documented in this encounter [facility] 11-27-2023 Instructions WILMER Berumen - 11/27/2023 11:00 AM EDT The Centers for Disease Control and Prevention (CDC) recommends the following steps to help babies sleep safely and reduce the risk of sleep-related infant deaths, including SIDS: Place your baby on his or her back for all sleep times--naps and at night. Use a firm, flat (not at an angle or inclined) sleep surface, such as a mattress in a safety-approved crib covered only by a fitted sheet. Keep your baby s sleep area (for example, a crib or bassinet) in the same room where you sleep, ideally until your baby is at least 6 months old. Keep soft bedding such as blankets, pillows, bumper pads, and soft toys out of your baby s sleep area. Do not cover your baby s head or allow your baby to get too hot. Avoid using products that claim to reduce the risk of SIDS, such as wedges or positioners. Do not use home cardiorespiratory monitors as a strategy to reduce the risk of SIDS. For more information on how to create a safe sleep environment for your baby, please visit the CDC s website The following attachments cannot be sent through Care Everywhere.Deciding to breastfeed (Gabonese)documented in this encounter [facility] 11-19-2023 History of Present illness Narrative Initial OB visit 23 y.o. at 35w5d presents for her initial OB visit. She is a transfer of care from Mallika Conn CNM. Last seen 10/10/23. This was an unplanned . FOB involved (Ralph, boyfriend). Obstetrical, Medical, Surgical, Social & Family history reviewed. Reviewed labs, ultrasound, and EDC. Problem list updated. Patient denies vaginal bleeding. No nausea / vomiting. Denies vaginal bleeding or LOF. Good movement. Patient planning to breast feed and getting her pump today. She was seen in triage 11/17/23, cultures pending. Taking abx for UTI. Occasional ctx. Negative history of GDM, PreE, previous , HSV, PPH, shoulder dystocia, IUGR, macrosomia, severe anemia, or 4th degree lacerations. No hx uterine surgeries or LEEP. Risk factors include: hx short cervix / delivery, late care, + CF carrier, previous THC use. The patient reports that there is not domestic violence in her life. Discussed exercise, diet and weight gain. Discussed smoking, alcohol use and drug use. Patient denies all. Discussed early danger signs and when/how to notify provider. Reviewed CNM / JUMP ROLL OPERATOR care, collaboration & referral to MASS SPECTROMETRY MANAGER as needed. Reviewed course of care. exam complete. Discussed CDC recommendation for exclusive for the first 6 months. Patient has been covid vaccinated. Discussed recommendations in . Patient is taking a vitamin. All questions answered. Educational materials provided. RTC one week for visit. WILMER Berumen 11/19/23 1053 [facility] Miscellaneous Notes Georgie called asking for a letter to Return to Work without restrictions from [facility] for her employer, [employer]. Georgie states, Last , 10/16 I left work and went to the hospital because I was cramping that felt like contractions. Then yesterday, 10/20 I went back to the hospital because I felt like I was going to pass out. I was having dizzy spells and a few contractions. I ended up just being dehydrated and was given fluids. So, my employer needs a note faxed from [facility] that I am OK to return to work without restrictions. Advised Mallika's out of the office today, but a message will be sent so she may address tomorrow afternoon upon her return. Georgie verbalized understanding. Staff to notify patient of plan: Please assist patient to get return to work note. She needs to be sure she is drinking at least 1 glass of water per hour if she is working in a hot area, or is exerting herself frequently. She is to be sure she is eating 3 meals per day and having healthy snacks as needed to keep her energy up when working. Spoke with pt, sent return work note to the fax that pt provided at [phone] documented in this encounter [facility] 10-22-2023 Telephone encounter Note Georgie called asking for a letter to Return to Work without restrictions from Mallika for her employer, [employer]. Georgie states, Last , 10/16 I left work and went to the hospital because I was cramping that felt like contractions. Then yesterday, 10/20 I went back to the hospital because I felt like I was going to pass out. I was having dizzy spells and a few contractions. I ended up just being dehydrated and was given fluids. So, my employer needs a note faxed from Mallika that I am OK to return to work without restrictions. Advised Mallika's out of the office today, but a message will be sent so she may address tomorrow afternoon upon her return. Georgie verbalized understanding. [facility] Work Phone: 10-22-2023 Telephone encounter Note Staff to notify patient of plan: Please assist patient to get return to work note. She needs to be sure she is drinking at least 1 glass of water per hour if she is working in a hot area, or is exerting herself frequently. She is to be sure she is eating 3 meals per day and having healthy snacks as needed to keep her energy up when working. [facility] 10-22-2023 Telephone encounter Note Spoke with pt, sent return work note to the fax that pt provided at [phone] [facility] 10-10-2023 History of Present illness Narrative Patient here for routine OB visit. Denies any vaginal bleeding or leaking. She states that she has been having cramping for the last few days. Small trace of Leukocytes in urine Subjective Georgie Pond is a 23 y.o. female being seen today for her obstetrical visit. She is at 30w0d gestation. Patient reports no bleeding, no contractions, and denies persistent headache, vision changes, epigastric pain or new swelling. Patient reports pain in abdomen after lifting at work, off due to the pain . movement: normal. Patient is planning adoption, she was told by a friend that all they have to do a sign a piece of paper. They do not currently have a steel rule die maker apprentice. The person planning to adopt the baby is looking for a steel rule die maker apprentice. Georgie is agreeable to referral to social work for assistance with legal aspect of adoption. Considering tubal ligation, however may prefer Mirena IUD/Nexplanon. She is continuing to consider options. Menstrual History: OB History 4 Para 1 Term 0 1 AB 2 Living 2 SAB 2 IAB 0 Ectopic 0 Multiple 1 Live Births 2 No LMP recorded (lmp unknown). Patient is . The following portions of the patient's history were reviewed and updated as appropriate: allergies, current medications, past family history, past medical history, past social history, past surgical history, problem list, and medication reconciliation was completed including current medication and post discharge medication. Review of Systems Pertinent items are noted in HPI. Objective BP 110/60 Wt 76.8 kg (169 lb 6.4 oz) LMP (LMP Unknown) BMI 30.98 kg/m FHT: 135 BPM Uterine Size: 32 cm Presentation: cephalic Assessment 30 and 0/7 weeks Problem List Items Addressed This Visit Cystic fibrosis carrier Episode of recurrent major depressive disorder ([facility]) History of delivery Hx of thyroid disease Intractable chronic migraine without aura Intrauterine Marijuana use during Maternal varicella, non-immune with adoption planned, antepartum Relevant Orders Ambulatory referral to Social Work (Non-[facility]) Second trimester - Primary Relevant Medications diphth,pertus,acell,,tetanus (BOOSTRIX) 2.5-8-5 Lf-mcg-Lf/0.5mL injection Immunization, In Clinic, Other Relevant Orders Ambulatory referral to Social Work (Non[facility]) Tdap vaccine greater than or equal to 7yo IM (Completed) Plan Patient educated to call or go to labor and delivery for : Decreased movement Vaginal bleeding or fluid leaking 3. Regular painful contractions 4. Headache not relieved by Tylenol 5. Vision changes such as blurring or seeing floaters 6. Right upper abdominal pain 7. New or increasing swelling. 8. She is to keep next scheduled apt with OB provider Patient educated on Tdap, agreeable and shot given by nursing staff. 28-week labs reviewed, normal and reviewed with her patient Social work consult for adoption. Patient encouraged to limit lifting to 20-30 lb maximum. Follow up in 2 Weeks. FRANCES Ward 10/10/23 1623 documented in this encounter [facility] 09-12-2023 History of Present illness Narrative Patient here for routine OB visit. Denies any vaginal bleeding, leaking, or cramping. Subjective Georgie Pond is a 23 y.o. female being seen today for her obstetrical visit. She is at 26w0d gestation. Patient reports no bleeding, no contractions, no leaking, and Reports on denies vision changes, epigastric pain or new swelling. Patient reports she is not sleeping much because she is back to work and caring for twins. movement: normal. Patient educated on cystic fibrosis carrier status, she was educated that partner needs to be screened for CF carrier, she does not believe he will do this testing. Patient reports working on decreasing marijuana use. Patient is considering tubal ligation for control, will sign labs at next visit. She reports she is in counseling, is having mood changes, but does not feel she needs medication at this time. Menstrual History: OB History 4 Para 1 Term 0 1 AB 2 Living 2 SAB 2 IAB 0 Ectopic 0 Multiple 1 Live Births 2 No LMP recorded (lmp unknown). Patient is . The following portions of the patient's history were reviewed and updated as appropriate: allergies, current medications, past family history, past medical history, past social history, past surgical history, problem list, and medication reconciliation was completed including current medication and post discharge medication. Review of Systems Pertinent items are noted in HPI. Objective BP 110/60 Wt 74.1 kg (163 lb 6.4 oz) LMP (LMP Unknown) BMI 29.89 kg/m FHT: 140 BPM Uterine Size: 26 cm Presentation: cephalic Assessment 26 and 0/7 weeks Problem List Items Addressed This Visit Acute cystitis Cystic fibrosis carrier Episode of recurrent major depressive disorder ([facility]) History of delivery Hx of thyroid disease Intractable chronic migraine without aura - Primary LGA (large for gestational age) fetus affecting management of mother Marijuana use during Maternal varicella, non-immune with adoption planned, antepartum Request for sterilization Slow transit constipation Plan Patient educated to call or go to labor and delivery for : Decreased movement Vaginal bleeding or fluid leaking 3. Regular painful contractions 4. Headache not relieved by Tylenol 5. Vision changes such as blurring or seeing floaters 6. Right upper abdominal pain 7. New or increasing swelling. 8. She is to keep next scheduled apt with OB provider Plan Tdap and consent signatures at next visit. Labs complete and normal, glucose and CBC normal. Follow up in 4 weeks. FRANCES Ward 09/12/23 1618 documented in this encounter [facility] 09-02-2023 Miscellaneous Notes Attempted to call, [employer] message sent. Staff will attempt to follow-up. New Medications Ordered This Visit Medications miconazole (MICOTIN-7) 100 mg vaginal suppository Sig: Insert 1 suppository (100 mg total) into the vagina nightly for 7 days. Dispense: 7 suppository Refill: 0 documented in this encounter [facility] 09-02-2023 Telephone encounter Note Attempted to call, [employer] message sent. Staff will attempt to follow-up. New Medications Ordered This Visit Medications miconazole (MICOTIN-7) 100 mg vaginal suppository Sig: Insert 1 suppository (100 mg total) into the vagina nightly for 7 days. Dispense: 7 suppository Refill: 0 [facility] 08-30-2023 Miscellaneous Notes First Attempt Made from [employer]- Left Voicemail New patient referral received. Dx:Late care affecting in second trimester [O09.32] Chronic intractable headache, unspecified headache type [R51.9, G89.29]/ Referred by:FRANCES Ward Referred to: Providers patient can see in clinic: MEENAKSHI WOODARD Please contact patient to schedule from referral, Thanks! PLEASE REVIEW PLAN OVER THE PHONE AND ADVISE PATIENT TO BRING UPDATED INSURANCE INFORMATION TO THEIR NEW PATIENT APPOINTMENT 2nd attempt: Called and left patient a voicemail once more letting them know we have received their referral, are ready to schedule, and to call us back at their earliest convenience to do so. Musical Engineer provided callback number for scheduling or to address any questions or concerns they may have. 3rd and final attempt: Musical Engineer unable to make contact with patient by phone - Unable to contact letter mailed to patient requesting a call back so we are able to schedule them in for a new patient appointment and update their contact information. Letter mailed to patient on: 09/02/2023 - mmv. documented in this encounter [facility] 08-30-2023 Telephone encounter Note First Attempt Made from [employer]- Left Voicemail New patient referral received. Dx:Late care affecting in second trimester [O09.32] Chronic intractable headache, unspecified headache type [R51.9, G89.29]/ Referred by:FRANCES Ward Referred to: Providers patient can see in clinic: MEENAKSHI WOODARD Please contact patient to schedule from referral, Thanks! PLEASE REVIEW PLAN OVER THE PHONE AND ADVISE PATIENT TO BRING UPDATED INSURANCE INFORMATION TO THEIR NEW PATIENT APPOINTMENT [facility] 08-30-2023 Telephone encounter Note 2nd attempt: Called and left patient a voicemail once more letting them know we have received their referral, are ready to schedule, and to call us back at their earliest convenience to do so. Musical Engineer provided callback number for scheduling or to address any questions or concerns they may have. [facility] 08-30-2023 Telephone encounter Note 3rd and final attempt: Musical Engineer unable to make contact with patient by phone - Unable to contact letter mailed to patient requesting a call back so we are able to schedule them in for a new patient appointment and update their contact information. Letter mailed to patient on: 09/02/2023 - mmv. [facility] 08-30-2023 Miscellaneous Notes This is notification that we have received a referral for the patient. Please reach out to schedule new patient appointment in your office. Please check the referral tab in appt desk for details and to make sure to assign referral or schedule off of it. Thank you. documented in this encounter [facility] 08-30-2023 Telephone encounter Note This is notification that we have received a referral for the patient. Please reach out to schedule new patient appointment in your office. Please check the referral tab in appt desk for details and to make sure to assign referral or schedule off of it. Thank you. [facility] 08-29-2023 History of Present illness Narrative Patient here for initial OB visit with provider. Denies any vaginal bleeding or leaking. She states she cramping all day long for the last few months. Per ACOG Committee Opinion No. 691 July 2016 which states genetic NIPT and carrier screening should be provided to every woman and ACOG Practice Bulletin No. 223 which states that screening and diagnostic testing for chromosomal abnormalities should be discussed and offered to all patients early in regardless of maternal age or baseline risk. Patient has also been made aware that genetic counseling services are available pre- and post-testing per patient request or upon medical indication. Patient verbalizes understanding. Patient has elected to have genetic screening done. Patient requests NIPT and Carrier Screen today. Reviewed billing process, confirmed e-mail address and telephone number for [employer] cost estimate. Reviewed consent, patient verbalizes understanding; patient wants gender with NIPT. Blood to be drawn in lab with other labs that were ordered previously, NIPT kit given to patient to take to lab, instructions given to give kit to cloth worker in lab. Patient verbalizes understanding. Subjective Georgie Pond is a 22 y.o. female being seen today for her obstetrical visit. She is at 24w0d gestation. Patient reports no bleeding, no leaking, and patient reports continuous uterine cramping since beginning of , complains of vaginal discharge. Nexplanon in place at time of positive confirmation, Nexplanon was removed yesterday by SHANIA. . movement: normal. Patient denies vision changes, epigastric pain or new swelling. Does report persistent headaches, daily without relief. Patient reports abnormal thyroid in prior , did not remain long enough to start medication. Patient reports intermittent left chest pain and occasional feelings of heart racing. Patient with 2 infants at home, reports getting very little sleep. She currently is suffering from anxiety and depression but has an appointment to start counseling [facility] on 09/18/2023. We discussed antidepressant/antianxiety medication in and that generally these are safe, infants may have withdrawal symptoms, if her provider feels they are appropriate. Menstrual History: OB History 4 Para 1 Term 0 1 AB 2 Living 2 SAB 2 IAB 0 Ectopic 0 Multiple 1 Live Births 2 No LMP recorded (lmp unknown). Patient is . The following portions of the patient's history were reviewed and updated as appropriate: allergies, current medications, past family history, past medical history, past social history, past surgical history, problem list, and medication reconciliation was completed including current medication and post discharge medication. Review of Systems A comprehensive review of systems was negative except for: Cardiovascular: positive for chest pain and palpitations Gastrointestinal: positive for abdominal pain, constipation, and reflux symptoms Genitourinary: positive for vaginal discharge Neurological: positive for headaches Behavioral/Psych: positive for anxiety, depression, illegal drug usage, and sleep disturbance Endocrine: positive for history of abnormal thyroid lab in prior Objective BP 120/60 Wt 72.8 kg (160 lb 9.6 oz) LMP (LMP Unknown) BMI 29.37 kg/m FHT: 120 BPM Uterine Size: 25 cm 08/28/2023 ultrasound indicates IUP at 23 weeks 4 days with KARTIK 12/21/2023 prior ultrasound on 07/30/2023 with 19 week 5 day and KARTIK of 12/19/2023 Assessment 24 and 0/7 weeks Problem List Items Addressed This Visit Slow transit constipation Episode of recurrent major depressive disorder ([facility]-H[facility]) Intractable chronic migraine without aura History of delivery LGA (large for gestational age) fetus affecting management of mother Other chest pain Marijuana use during Other Visit Diagnoses Screen for STD (sexually transmitted disease) - Primary Relevant Orders Chlamydia/GC by PCR Nighat Swab Vaginitis Panel PCR Second trimester Relevant Orders Chlamydia/GC by PCR Nighat Swab Vaginitis Panel PCR Urine Culture Urinalysis Glucose Tolerance, Fasting Glucose, 2 hour Post 75gm load Late care affecting in second trimester Relevant Orders Chlamydia/GC by PCR Nighat Swab Vaginitis Panel PCR Urine Culture Urinalysis Glucose Tolerance, Fasting Glucose, 2 hour Post 75gm load Thyroid profile includes TSH FT4 ECG 12 lead [facility] [place], [place] Ambulatory referral to Cardiology ([facility]) Chronic intractable headache, unspecified headache type Relevant Orders [facility] [place] Chest pain, unspecified type Relevant Orders ECG 12 lead Ambulatory referral to Cardiology (Non[facility]) Hx of thyroid disease Relevant Orders Thyroid profile includes TSH FT4 Heart palpitations Relevant Orders ECG 12 lead Ambulatory referral to Cardiology ([facility]) Gastroesophageal reflux disease without esophagitis Relevant Medications lansoprazole (PREVACID) 30 mg capsule Plan Patient educated to call or go to labor and delivery for : Decreased movement Vaginal bleeding or fluid leaking 3. Regular painful contractions 4. Headache not relieved by Tylenol 5. Vision changes such as blurring or seeing floaters 6. Right upper abdominal pain 7. New or increasing swelling. 8. She is to keep next scheduled apt with OB provider Patient was strongly encouraged to present to labor and delivery for contractions more than 6 per hour, increasing abdominal pain or worsening headaches. Patient encouraged to have labs completed CHITRA. Follow up in 2 weeks. FRANCES Ward 08/29/23 1700 documented in this encounter [facility] 08-28-2023 Evaluation + Plan note Associated Problem(s): Slow transit constipation Hydration, fibers Colace HS daily [facility] 08-28-2023 Miscellaneous Notes Associated Problem(s): Slow transit constipation Hydration, fibers Colace HS daily documented in this encounter [facility] 08-28-2023 History of Present illness Narrative Patient here for initial OB intake visit accompanied by her auntie (friend of the family); this is an unplanned , accepting about , FOB Ralph and family supportive supportive. This will be their third child together (recent set of twins at 25 weeks gestation, born 02/2023). Patient had a Nexplanon placed 04/05/[address] [facility], found to be with Nexplanon in place at ED visit in [place]. Nexplanon was removed per this office 08/23/2023. Patient lives in [place], discussed availability of CNM office in [place], patient interested and will continue the remainder of her care there. Patient will need Pap and GC./CT cultures next visit, unable to collect today due to having a transvaginal US just prior to this visit. Patient also currently on antibiotics from the ED for UTI, will plan AKOSUA next visit. Reviewed warning signs and use of emergency number. Reviewed relationship between physicians and Certified Nurse Midwives, call and availability reviewed. Discussed urine drug screening with initial labs and as needed through and on arrival in Labor and Delivery. labs to be done reviewed and discussed. Emphasized that lab work is to be done after dating ultrasound is completed to verify viability, and prior to next visit with OB provider. Patient verbalizes understanding. Per ACOG Committee Opinion No. 691 July 2016 which states genetic carrier screening should be provided to every woman and ACOG Practice Bulletin No. 223 which states that screening and diagnostic testing for chromosomal abnormalities should be discussed and offered to all patients early in regardless of maternal age or baseline risk. Patient has been made aware that genetic counseling services are available pre- and post-testing per patient request or upon medical indication. Patient verbalizes understanding. Discussed [facility] Horizon Carrier screen: discussed that carrier screening is a type of genetic test that analyzes DNA to detect the presence of specific gene mutations in the patient's blood that may place their children at increased risk of the same disorder. Testing is limited to Horizon 14 panel Carrier screening unless additional screening is medically indicated via patient and/or family history. Patient desires screening, brochure given. Informed patient she will need to schedule a nurse visit to sign consent in order for genetic testing to be done. Patient verbalizes understanding. Discussed availability of [place] NIPT screening. Reviewed that NIPT is a screening test and not diagnostic; that a positive test does not necessarily mean the baby has a Trisomy defect, but that further testing is indicated. Patient desires screening, brochure given. Again, informed patient she will need to schedule a nurse visit to sign consent in order for genetic testing to be done. Patient verbalizes understanding. dating ultrasound completed prior to this visit. Discussed Survey US; scheduled at [facility] 09/04/2023. Patient has vitamins she is taking. All questions asked and answered to patient's satisfaction. To return for OB visit with provider; plan PE with Pap & cultures next visit, patient verbalizes understanding. 22 y.o. at 23w6d. No CTX, VB, LOF. positive FM. Presents for Iitial OB Interview. She had a dating US today at [facility]. She has a [facility] survey 09-04-23 at [place] [id number]. Reviewed signs of labor and movement 2. C/o cramping . Spec exam deferred due to earlier vaginal US with gel which would interfere with cultures per lab. Her cervical length today ws 3.96 cm and no funneling. Abdomen palpates soft throughout our visit. No contractions palpated. She does not drink much water. Encouraged to stay hydrated with at least 6-8 bottles of water. Discussed labor and how to palpate contractions. Empty bladder, hydrate and palpate abdomen. If mary more than 5-6 contractions an hour - GO TO HOSPIRAL.States that she always had cramping with her twin . She delivered them at 25 weeks and they are doing well at home now after a long NICU stay at [facility]. 3. C/o constipation. Discussed fibers and hydration. Colace ordered 4. C/o headaches. States that she always has headaches. Magnesium ordered. States that she has caffeine daily - Pepsi. Discussed trying Tylenol also and staying hydrated. 5, Return 1 wks. With Mallika in [place]..Instructged that if she continues to have >5-6 contractions in 1 hour to call or go to hospital. FRANCES Joseph 08/28/23 1520 FRANCES Joseph 08/28/23 1711 documented in this encounter [facility] 08-23-2023 History of Present illness Narrative NEW PATIENT - Nexplanon removal Georgie Pond is a 22 year old at 23w1d by 19w US (performed 07/30/23 [facility]). Pt has Nexplanon, placed 04/05/23 ([facility]). She is 6 months . She had a of twins 02/03/2023 at 25w2d. She has not received care in this . She was seen in the ER 07/30/23 with abdominal pain and vaginal bleeding and again 08/22/23 with cramping, diagnosed with UTI, prescribed Macrobid. Today, pt denies VB, cramping, or abdominal pain. She has not yet started abx for UTI. FHT 148 Fundal height 23 cm Abd soft, gravid, non-tender Scheduled pt for following appts: Growth and Cervical length US 08/28/23 12:30 pm IOB Saturday08/28/23 1pm Anatomy survey 09/04/23 8:15 am *Soonest US appt for Survey is 09/04/23, staffed called [facility] and [place] but there are no openings. Therefore will obtain a growth US and cervical length as soon as possible and schedule pt for first opening for survey. After IOB, she may transfer to [place] office as that's where she lives. MFM consult placed due to history of short cervix, at 25w2d, late care. Procedure: Nexplanon Removal Georgie Pond is a 22 y.o. female who presents for removal of Nexplanon due to . Discussed risks and benefits with patient including infection, bleeding, pain and inability to remove. Written consent obtained. Allergies to antiseptics and anesthetics were ruled out. Procedure note: Area over implant removal site cleansed with Betadine. 1% lidocaine injected under the tip of the implant at the removal site. The implant was located by palpation and an incision made in the longitudinal direction of the arm over the tip of the implant closest to the elbow. The implant was grasped and removed with forceps. Complete removal was confirmed by measuring the full length of the implant at 4cm. No complications. Hemostasis achieved. Patient tolerated procedure well. Aftercare instructions given. The patient was instructed to remove the dressing after 24 hours and the Steri strips removed after three days. Instructed to keep the area dry for six hours. Patient advised to use OTC analgesics as needed for pain. If site becomes red or has drainage or skin to approximated please call the office. Patient verbalized understanding. Encouraged pt to start antibiotics for UTI RTO 08/28/23 for IOB Care discussed with Dr. Heaton - WILMER Bermeo 08/23/23 12:10 PM WILMER Stoll 08/23/23 1210 documented in this encounter [facility] 05-13-2023 Miscellaneous Notes ----- Message from FRANCES Arnold sent at 05/10/2023 9:53 PM EST ----- Regarding: Needs appt. PLease call patient Saturday05/13/23 to be seen, Nexplanon removal chitra. Thanks Images from the original note were not included. FRANCES Arnold [facility] Women Appointment Desk PLease call patient Saturday05/13/23 to be seen, Nexplanon removal chitra. Thanks Left message for patient to call office to schedule appt [email or web address]-13-2023 Telephone encounter Note ----- Message from FRANCES Arnold sent at 05/10/2023 9:53 PM EST ----- Regarding: Needs appt. PLease call patient Saturday05/13/23 to be seen, Nexplanon removal chitra. Thanks [facility] 05-13-2023 Telephone encounter Note Images from the original note were not included. FRANCES Arnold [facility] Appointment Desk PLease call patient Saturday05/13/23 to be seen, Nexplanon removal chitra. Thanks Left message for patient to call office to schedule appt [email or web address] 05-10-2023 Miscellaneous Notes Patient called and would like to speak with a provider. She had the nexplanon placed on 04/05/23. Since then she complains that she's had migraines that have not been helped with tylenol or motrin and has been really nauseous. Please advise. Called patient & left a message for her to call my [employer] or SHANIA pager, both numbers given to call back, Pt may need to go to ED. Pt called back [phone], she reports she has had this h/a daily, with vomiting, and weakness since having nexplanon placed. Reports she had migraine headaches in past & during but they stopped after delivery until getting control. Reports she has tried Tylenol, motrin & excedrin without any relief. States she has had visual impairments & weakness also. Denies having been seen by provider. Reviewed when to go to ED, pt desires neurology consult & appointment at [facility] to speak in person with provider. Advised it would be reasonable to go to ED for this now & definitely to go if worst h/a of life or feeling of tight band of head, changes in vision again. Pt voiced agreement. Will leave office a message to call patient on Saturday to get scheduled chitra. documented in this encounter [facility] 05-10-2023 Telephone encounter Note Patient called and would like to speak with a provider. She had the nexplanon placed on 04/05/23. Since then she complains that she's had migraines that have not been helped with tylenol or motrin and has been really nauseous. Please advise. [facility] Telephone encounter Note Called patient & left a message for her to call my [employer] or CNM pager, both numbers given to call back, Pt may need to go to ED. Pt called back [phone], she reports she has had this h/a daily, with vomiting, and weakness since having nexplanon placed. Reports she had migraine headaches in past & during but they stopped after delivery until getting control. Reports she has tried Tylenol, motrin & excedrin without any relief. States she has had visual impairments & weakness also. Denies having been seen by provider. Reviewed when to go to ED, pt desires neurology consult & appointment at [facility] to speak in person with provider. Advised it would be reasonable to go to ED for this now & definitely to go if worst h/a of life or feeling of tight band of head, changes in vision again. Pt voiced agreement. Will leave office a message to call patient on Saturday to get scheduled chitra. [facility] 11-14-2021 Evaluation note Encounter Date Diagnosis Assessment [...] occur if testing is performed too soon. Sina Other Evaluation note* Diagnosis Encounter for follow-up Vaginal bleeding affecting early documented in this encounter [facility] Healthcare[facility]* Diagnosis History of delivery, currently - Primary with history of pre-term labor History of twin in prior Personal history of other genital system and obstetric disorders History of prior with short cervix, currently 23 weeks gestation of [facility] this [facility] Diagnosis care, subsequent , second trimester- Primary Short interval between pregnancies affecting in second trimester, antepartum Screen for STD (sexually transmitted disease) Screening examination for venereal disease Screening for genetic disease carrier status Encounter for screening for other genetic defects Acute intractable headache, unspecified headache type Constipation, unspecified constipation type documented in this encounter [facility] Diagnosis Screen for STD (sexually transmitted disease)- Primary Screening examination for venereal disease Second trimester state, incidental Late care affecting in second trimester Chronic intractable headache, unspecified headache type Chest pain, unspecified type Hx of thyroid disease Heart palpitations Palpitations Marijuana use during Excessive growth affecting management of , antepartum, single or unspecified fetus History of delivery Moderate episode of recurrent major depressive disorder ([facility]) Gastroesophageal reflux disease without esophagitis Esophageal reflux Slow transit constipation Intractable chronic migraine without aura and with status migrainosus [facility] Diagnosis Second trimester - Primary state, incidental Late care in second trimester documented in this [facility] Diagnosis Vaginal yeast infection- Primary Candidiasis of vulva and vagina [facility] Diagnosis Intractable chronic migraine without aura and with status migrainosus- Primary Slow transit constipation Acute cystitis without hematuria Cystic fibrosis carrier Moderate episode of recurrent major depressive disorder ([facility]) History of delivery Hx of thyroid disease Excessive growth affecting management of , antepartum, single or unspecified fetus Marijuana use during Maternal varicella, non-immune Supervision of other normal with adoption planned, antepartum Request for sterilization [facility] Diagnosis Second trimester - Primary state, incidental Intractable chronic migraine without aura and with status migrainosus with adoption planned, antepartum Maternal varicella, non-immune Supervision of other normal Marijuana use during Hx of thyroid disease History of delivery Moderate episode of recurrent major depressive disorder ([facility]) Cystic fibrosis carrier Intrauterine documented in this encounter [facility]* Diagnosis care, third trimester- Primary Food insecurity documented [facility] this [facility]* Diagnosis with 36 completed weeks gestation- Primary [facility] in [facility]* Diagnosis 38 weeks gestation of - Primary Short interval between pregnancies affecting , antepartum Late care Insufficient care Hx of delivery, currently with history of pre-term labor documented [facility] this encounter [facility]* Diagnosis Missed menses , unspecified gestational age Encounter for supervision of normal first in first trimester Screening, , for anatomic survey Encounter for anatomic survey Second trimester state, incidental 21 weeks gestation of Abnormal TSH BV (bacterial vaginosis) Unspecified vaginitis and vulvovaginitis documented in this encounter [facility] HealthcareEvaluation note* Diagnosis care, subsequent , second trimester- Primary Short interval between pregnancies affecting in second trimester, antepartum Screen for STD (sexually transmitted disease) Screening examination for venereal disease Screening for genetic disease carrier status Encounter for screening for other genetic defects Acute intractable headache, unspecified headache type Constipation, unspecified constipation type Urinary tract infection in mother during , antepartum- Primary documented in this encounter [facility]* Diagnosis Well woman exam with routine gynecological exam Routine gynecological examination Vaginal discharge Leukorrhea, not specified as infective STD exposure Missed menses , unspecified gestational age Diabetes mellitus screening Screening for diabetes mellitus Flank pain Abdominal pain, unspecified site documented in this encounter [facility] HealthcareInstructionsNot on filedocumented in this encounterProChildren[facility] Rehabilitation[facility] Health SystemInstructionsNot on filedocumented in this encounterProChildren'[facility] RehabilitationDoctor.[facility] Health SystemInstructionsNot on filedocumented in this encounterProChildren'[facility] Rehabilitation[facility] System InstructionsNot on filedocumented in this encounterPro[facility] InstructionsNot on filedocumented in this encounter[facility] InstructionsNot on filedocumented in this encounterPro[facility] InstructionsNot on filedocumented in this encounterPro[facility]ica [facility] InstructionsNot on filedocumented in this encounterProChildren'S Hospital For Rehabilitationca Health System InstructionsNot on filedocumented in this encounterProChildren'S Hospital For Rehabilitationca Health System InstructionsNot on filedocumented in this encounterProChildren'S Hospital For RehabilitationDoctor.com Health System InstructionsNot on filedocumented in this encounterUniversity Hospitals [facility] Instructions* Attachments The following attachments cannot be sent through Care Everywhere. * Managing pain during labor and delivery (Gabonese) * How to tell when labor starts (Gabonese) documented in this encounterProChildren'S Hospital For RehabilitationDoctor.[facility] Health SystemInstructionsNot on file documented in this encounterProChildren'S Hospital For RehabilitationMedAware SystemInstructionsNot on file documented in this encounterUniversity Hospitals A[facility] CenterMedAware SystemReason for referral (narrative)* Consultation (Routine) - Pending Review Specialty Diagnoses / Procedures Referred By Wilbur ibarra Referred To Contact Cardiology Diagnoses Late care affecting in second trimester Chest pain, unspecified type Heart palpitations Mallika Conn APRN-CNM [address] [place] [address] Raghu Cummings MD [address] [place] [address] Referral ID Status Reason Start Date Expiration Date Visits Requested Visits Authorized [id number] Pending Review Specialty Services Required 08/29/2023 08/28/2024 1 1 * Consultation (Routine) - Pending Review Specialty Diagnoses / Procedures Referred By Wilbur ibarra Referred To Contact Neurology Diagnoses Late care affecting in second trimester Chronic intractable headache, unspecified headache type Mallika Conn APRN-CNM [address] [facility], [address] [address] Julianne Moyer MD [address] [place] [address], [facility] [address] [place] [address] Referral ID Status Reason Start Date Expiration Date Visits Requested Visits Authorized [id number] Pending Review Specialty Services Required 08/29/2023 08/28/2024 1 1 * Cardiology (Routine) - Pending Review Specialty Diagnoses / Procedures Referred By Contac t Referred To Contact Diagnoses Late care affecting in second trimester Chest pain, unspecified type Heart palpitations Procedures ECG 12 lead Mallika Conn APRN-CNM [address] [facility], [address] [address] Referral ID Status Reason Start Date Expiration Date V isits Requested Visits Authorized [id number] Pending Review 08/29/2023 08/28/2024 1 1 [facility] SystemReason for referral (narrative)* Consultation (Routine) - Pending Review Specialty Diagnoses / Procedures Referred By Contac t Referred To Contact Dialysis Patient Care Technician Diagnoses Second trimester with adoption planned, antepartum Mallika Conn APRN-CNM [address] [address] Referral ID Status Reason Start Date Expiration Date Visits Requested Visits Authorized [id number] Pending Review Specialty Services Required 10/10/2023 10/09/2024 1 1 [facility] SystemReason for referral (narrative)* Health Education (Routine) - Pending Review Specialty Diagnoses / Procedures Referred By Contac t Referred To Contact Nutrition Diagnoses Food insecurity Sally Newman, BEEF SPECIALIST-JUMP ROLL OPERATOR [address] [place] [address] [facility] [address] [place] [address] Referral ID Status Reason Start Date Expiration Date V isits Requested Visits Authorized [id number] Pending Review 11/19/2023 11/18/2024 12 12 [facility] Summary Purpose Family History No Family History Records FoundNo Family History Records FoundNo Family History Records FoundNo Family History Records FoundNo Family History Records FoundNo Family History Records FoundNo Family History Records FoundNo Family History Records Found Advance Directives Date Activated Date Inactivated Comments 02/03/2023 12:25 PM 02/03/2023 11:47 PM Date Activated Date Inactivated Comments 01/24/2023 1:55 PM 01/28/2023 3:48 PM Date Activated Date Inactivated Comments 12/22/2022 7:11 AM 12/23/2022 7:06 PM Date Activated Date Inactivated Comments 02/03/2023 12:25 PM 02/03/2023 11:47 PM Date Activated Date Inactivated Comments 01/24/2023 1:55 PM 01/28/2023 3:48 PM Date Activated Date Inactivated Comments 12/22/2022 7:11 AM 12/23/2022 7:06 PM Latest Code Status on File Code Status Date Activated Date Inactivated Comments Full Code 02/03/2023 12:25 PM 02/03/2023 11:47 PM Code Status History Code Status Date Activated Date Inactivated Comments Full Code 01/24/2023 1:55 PM 01/28/2023 3:48 PM Full Code 12/22/2022 7:11 AM 12/23/2022 7:06 PM Reason for Referral Specialty Diagnoses / Procedures Referred By Contac t Referred To Contact Maternal and Medicine Diagnoses History of delivery, currently History of twin in prior History of prior with short cervix, currently Procedures [facility] with or without consult Amaya Cruz, BEEF SPECIALIST-JUMP ROLL OPERATOR [address] [place] [address] [facility] Maternal Med [address] [place] [address] Referral ID Status Reason Start Date Expiration Date V isits Requested Visits Authorized [id number] Pending Review 08/23/2023 08/22/2024 1 1 Additional Source Comments REASON FOR VISIT (unrecogniz ed section and content) Reason Comments ER Follow-up Pt was at [facility] ER on 05/15/2024 for vaginal bleeding. Pt had an US done and is @ 12w 3d . Reason Comments New Patient Procedure Reason Comments Initial Visit Reason Onset Date Comments NEW PATIENT REFERRAL 08/30/2023 Reason Onset Date Comments RETURN TO WORK WITHOUT RESTRICTIONS 10/22/2023 Reason Comments Initial Visit Pt is here for fi rst visit. Transfer of care Reason Comments Routine Visit Pt is here for PN V. Reason Comments Routine Visit Reason Comments Amenorrhea INFORMATION SOURCE (unrecogn ized section and content) DATE CREATED AUTHOR 09/13/2022 [facility] DATE CREATED AUTHOR AUTHOR'S ORGANIZ ATION 12/04/2022 [facility] DATE CREATED AUTHOR AUTHOR'S ORGANIZ ATION 09/02/2023 [facility] DATE CREATED AUTHOR AUTHOR'S ORGANIZ ATION 09/05/2023 [facility] DATE CREATED AUTHOR AUTHOR'S ORGANIZ ATION 09/20/2023 [facility] DATE CREATED AUTHOR AUTHOR'S ORGANIZ ATION 12/09/2023 [facility] DATE CREATED AUTHOR AUTHOR'S ORGANIZ ATION 07/29/2024 [facility] DATE CREATED AUTHOR AUTHOR'S ORGANIZ ATION 08/05/2024 [facility] Care Teams (unrecognized sec tion and content) Stock Driver Relationship Specialty Start Date End Date No Pcp, [place] [address] PCP - General Family Medicine 07/30/23 Stock Driver Relationship Specialty Start Date End Date No Pcp, [place] [address] PCP - General Family Medicine 07/30/23 Stock Driver Relationship Specialty Start Date End Date No Pcp, [place] [address] PCP - General Family Medicine 07/30/23 Stock Driver Relationship Specialty Start Date End Date No Pcp, [place] [address] PCP - General Family Medicine 07/30/23 Stock Driver Relationship Specialty Start Date End Date No Pcp, [place] [address] PCP - General Family Medicine 07/30/23 Stock Driver Relationship Specialty Start Date End Date No Pcp, [place] [address] PCP - General Family Medicine 06/23/22 Stock Driver Relationship Specialty Start Date End Date No Pcp, [place] [address] PCP - General Family Medicine 07/30/23 Stock Driver Relationship Specialty Start Date End Date No Pcp, [place] [address] PCP - General Family Medicine 07/30/23 Stock Driver Relationship Specialty Start Date End Date No Pcp, [place] [address] PCP - General Family Medicine 07/30/23 Stock Driver Relationship Specialty Start Date End Date No Pcp, [place] [address] PCP - General Family Medicine 07/30/23 Stock Driver Relationship Specialty Start Date End Date No Pcp, [place] [address] PCP - General Family Medicine 07/30/23 Stock Driver Relationship Specialty Start Date End Date No Pcp, [place] [address] PCP - General Family Medicine 07/30/23 Stock Driver Relationship Specialty Start Date End Date No Pcp, [place] [address] PCP - General Family Medicine 07/30/23 Stock Driver Relationship Specialty Start Date End Date No Pcp, [place] [address] PCP - General Family Medicine 07/30/23 Stock Driver Relationship Specialty Start Date End Date No Pcp, [place] [address] PCP - General Family Medicine 07/30/23 Stock Driver Relationship Specialty Start Date End Date Osmany Bella DO [address] [place] [address] [place] [address] PCP - General Obstetrics & Gynecology 07/12/24 FOR RECORDS PERTAINING TO PATIENTS WHO ARE [...] BE BASED ON THE PRIMARY CLINICAL RECORDS. [facility]. provides no warranty or guarantee of the accuracy or completeness of information in this document.
== END 2024-08-12 21:09 | disposition home or self-care (01) ==
LOC: LAB 21:08
PROVIDERS: Visit Provider Obstetrics & Gynecology
DX: Z01.419 Encounter for gynecological examination (general) (routine) without abnormal findings (principal)
CPT/HCPCS: 88175

== ENCOUNTER 2024-09-02 09:57 | Observation (INO) | payer MEDICAID, SELFPAY ==
--- NOTE | 2024-09-02 10:35 | US_ITS ---
[address] [address] Patient Name: LAURA FOUNTAIN MRN: [id number] date: 2000 Sex: F Assigned Patient Location: [facility] Current Patient Location: [facility] Accession/Order Number: [id number] Exam Date: 09/02/2024 11:49 Report Date: 09/02/2024 11:52 At the request of: ZHANE NORWOOD DO Procedure: US OB cervical length Placenta ultrasound, cervical ultrasound. Reason for exam: Bleeding. COMPARISON: None. FINDINGS: Transabdominal imaging of the gravid uterus was obtained. FINDINGS: Single live intrauterine with heart rate 1 47 bpm. presentation is cephalic at time of scanning. The placenta is posterior and fundal in location without focal abnormality. Cervical length measures 4.8 cm without evidence of funneling. US/US OB cervical length IMPRESSION: No placental or cervical abnormality is seen. Impression dictated by: Rufus Garcia Jr. DCynthiaOCynthia 09/02/2024 11:52 AM Dictation Location: Repair Report Electronically authenticated by: [id number] Y Date: 09/02/2024 11:52
--- NOTE | 2024-09-02 10:35 | US_ITS ---
[address] [address] Patient Name: LAURA FOUNTAIN MRN: [id number] date: 2000 Sex: F Assigned Patient Location: [facility] Current Patient Location: [facility] Accession/Order Number: [id number] Exam Date: 09/02/2024 11:49 Report Date: 09/02/2024 11:52 At the request of: ZHANE NORWOOD DO Procedure: US OB cervical length Placenta ultrasound, cervical ultrasound. Reason for exam: Bleeding. COMPARISON: None. FINDINGS: Transabdominal imaging of the gravid uterus was obtained. FINDINGS: Single live intrauterine with heart rate 1 47 bpm. presentation is cephalic at time of scanning. The placenta is posterior and fundal in location without focal abnormality. Cervical length measures 4.8 cm without evidence of funneling. US/US OB placenta IMPRESSION: No placental or cervical abnormality is seen. Impression dictated by: Rufus Garcia Jr. DGabe 09/02/2024 11:52 AM Dictation Location: [employer] Electronically authenticated by: [id number] Y Date: 09/02/2024 11:52
[2024-09-02 11:34] LABS: Bilirubin Urine NEGATIVE (NEGATIVE); Blood Urine NEGATIVE (NEGATIVE); Clarity Urine SL CLOUDY (CLEAR); Color Urine LT. YELLOW (YELLOW); Glucose Urine UA NEGATIVE (NEGATIVE); Ketones Urine NEGATIVE (NEGATIVE); Leukocyte Esterase Urine MODERATE (NEGATIVE); Nitrite Urine NEGATIVE (NEGATIVE); Protein Urine NEGATIVE (NEG/TRACE); Specific Gravity Urine 1.015 (1.005-1.025); Urobilinogen Urine 0.2 EU/dL (0.2-1.0)
[2024-09-02 11:46] LABS: Urine Microscopic Indicated YES
[2024-09-02 12:03] LABS: Bacteria Urine SMALL #/HPF (NONE SEEN); Cast Seen? NONE SEEN #/LPF (NONE SEEN); Crystals Seen? None Seen #/HPF (None Seen); Mucus Urine NONE SEEN (NONE SEEN); RBC Urine 0-2 #/HPF (0-2); Squamous Epithelial Cell Urine MODERATE #/LPF (NONE/RARE); Transitional Epi Cells Urine FEW #/LPF (NONE SEEN)
[2024-09-02 12:04] LABS: Urine Culture Indicated YES-LC
== END 2024-09-02 12:45 | disposition home or self-care (01) ==
PROVIDERS: Admitting Provider Obstetrics & Gynecology; Visit Provider Obstetrics & Gynecology
DX: O46.90 Antepartum hemorrhage, unspecified, unspecified trimester (principal); O26.899 Other specified pregnancy related conditions, unspecified trimester; R10.9 Unspecified abdominal pain; Z3A.00 Weeks of gestation of pregnancy not specified
CPT/HCPCS: 76815; 76817; 81001; 87086; G0378; G0379

== ENCOUNTER 2024-10-03 18:54 | Observation (INO) | payer MEDICAID, SELFPAY ==
--- OUTSIDE RECORDS SUMMARY | 2023-09-02 13:15 | XMS_ITS ---
Author Organization [facility] vices Address [address] [place], [place] [address] Care Team Providers Care Health Sciences Manager Name Role Phone Arlene Opsina Primary Care Provider [phone] Ruth Bess [phone] REASON FOR VISIT Initial psychiatric evaluation Medications [...] Location Date Provider Diagnosis Main [address] [place], [place] [id number] 09/02/2023 Ruth Bess Dietary counseling Z 71.3 and Exercise counseling Z71.82 Assessments Encounter Date Diagnosis (ICD Code) Assessment Notes Treatment Notes Treatment Clinical Notes Section Notes 09/02/2023 Dietary counseling (ICD-10 - Z71.3) 09/02/2023 Exercise counseling (ICD-10 - Z71.82) Plan Of Treatment Next Appt Details Follow Up: 4 Weeks,prn, Reas on: Progress Notes * Chetna PONDonDOB:2000 (24 yo F)Acc No.[id number]:09/02/2023 Patient: Georgie ARAMBULA Provider: DELIA Kebede :2000 A ge:22 Y S ex:Female Date:09/02/2023 Address:[address] [place], [place] [address] Pcp:Arlene Ospina Subjective: * Chief Complaints: * [...] Problems: * Billing Information: * Visit Code: 24839 Psychiatric diagnostic eval with med sv. Modifiers: SA * Procedure Codes: Care Plan Details* * Electronic signature of DELIA Madsen on 10/03/2024 at 06:59 PM EDT Sign off status: Pending * Provider: DELIA Kebede Date: 0 09/02/2023 Generated for Yarely leon/Arvind/Veda on: 0 10/03/2024 06:59 PM EDT
--- OUTSIDE RECORDS SUMMARY | 2024-09-18 16:18 | XMS_ITS | Encounter Summary ---
Author Organization [employer] Address [id number] [address] [place] [address] Care Team Providers Care Retail Coverage Merchandiser Name Role Phone No Pcp, No Pcp Primary Care Provider Unavailabl e Reason for Visit * Reason Comments Suicidal SI for the past few days, reports multiple stressors but does nto go into detail about them. Reports taking 5 tabs of of children's father's prescribed depakote, unknown mg per tab) around 1450 in attempt to harm herself. 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 Encounter Details Date Type Department Care Team (Late st Contact Info) Description 09/18/2024 4:18 PM EDT - 09/18/2024 10:03 PM EDT Emergency [facility] - Emergency [address] [place] [address] Saroj Carreon, DO [address] [place] [address] Suicide attempt ([facility]) (Primary Dx) Discharge Disposition: Another Hospital Social History Tobacco Use Types Packs/Day Years Used Date Smoking Tobacco: Never Smokeless Tobacco: Never Alcohol Use Standard Drinks/Week Comments Not Currently 0 (1 standard drink = 0.6 oz pur e alcohol) occasionally Social Connection and Isolation Panel [NHANES] A nswer Date Recorded In a typical week, how many times do you talk on the phone with family, friends, or neighbors? Three times a week 03/26/20 How often do you get togethe r with friends or relatives? Never 03/26/2021 How often do you attend chur ch or advent services? Never 03/26/2021 Do you belong to any clubs o r organizations such as christianity groups, unions, fraternal or athletic groups, or school groups? No 03/26/2021 How often do you attend meet ings of the clubs or organizations you belong to? Patient declined 03/26/2021 Are you , , di vorced, , never , or living with a partner? Living with partner 03/26/2021 AUDIT-C Answer Date Recorded Q1: How often do you have a drink containing alc ohol? Never 03/26/2021 Q2: How many drinks containi ng alcohol do you have on a typical day when you are drinking? Patient declined 03/26/2021 Q3: How often do you have si x or more drinks on one occasion? Patient declined 03/26/2021 Overall Financial Resource Strain (CARDIA) Answe r Date Recorded How hard is it for you to pa y for the very basics like food, housing, medical care, and heating? Not hard at all 08/29/2023 PHQ-2 Answer Date Recorded Total Score 4 08/29/2023 [facility] - Occupational Stress Questionnaire Answer Date Recorded Do you feel stress - tense, restless, nervous, or anxious, or unable to sleep at night because your mind is troubled all the time - these days? To some extent 03/26/2021 Exercise Vital Sign Answer Date Recorde d On average, how many days pe r week do you engage in moderate to strenuous exercise (like a brisk walk)? 5 days 03/26/2021 On average, how many minutes do you engage in exercise at this level? 150+ min 03/26/2021 PRAPARE - Transportation Answer Date Re corded In the past 12 months, has l ack of transportation kept you from medical appointments or from getting medications? No 01/2025 In the past 12 months, has l ack of transportation kept you from meetings, work, or from getting things needed for daily living? No 07/12/2024 Waddy Depression Scale Answer Date Recorded Waddy Depression Scale Total 13 09/12/2023 The thought of harming myself has occurred to me . Never 09/12/2023 Housing Instability Answer Date Recorde d Are you worried or concerned that in the next two months you may not have stable housing that you own, rent or stay in as a part of a household? No 07/12/2024 Childcare Answer Date Recorded Do problems getting child ca re make it difficult for you to work or study? No 08/29/2023 Employment Answer Date Recorded Do you need help finding a [employer] career center and/or a training program? No 03/26/2021 Hunger Screening Answer Date Recorded Within the past 12 months we worried whether our food would run out before we got money to buy more. Never True 09/18/2024 Within the past 12 months th e food we bought just didn't last and we didn't have money to get more. Never True 09/18/2024 Purpose - Life Answer Date Recorded I have a purpose and direction in my life. Giulia er Agree nor Disagree 03/26/2021 Education Answer Date Recorded What is the highest level of school you have completed or the highest degree you have received? 12th grade 03/26/2021 Estimated Date of Delivery Comme nts Yes 11/24/2024 Based on Patient Reported Sex and Gender Information Value Date Recorded Sex Assigned at Female 09/18/2024 11:48 PM EDT Legal Sex Female 12:00 PM EDT Gender Identity Female 09/18/2024 11:48 PM EDT Sexual Orientation Not on file documented as of this encounter Last Filed Vital Signs Vital Sign Reading Time Taken Comments Blood Pressure 119/77 09/18/2024 9:30 PM EDT Pulse 90 09/18/2024 9:30 PM EDT Temperature 37 C (98.6 F) 09/18/2024 4:21 PM EDT Respiratory Rate 12 09/18/2024 9:30 PM EDT Oxygen Saturation 97% 09/18/2024 7:00 PM EDT Inhaled Oxygen Concentration - - Weight 83 kg (183 lb) 09/18/2024 4:21 PM EDT Height - - Body Mass Index 34.58 08/03/2024 6:33 AM EDT documented in this encounter Medications at Time of Discharge vit,sal 74/iron/folic ( VITAMIN 1+1 ORAL) Take by mouth in the morning. 09/24/2024 documented as of this encounter ED Notes * Maribell Summers RN - 09/18/2024 4:53 PM EDTSummary: Medication Identification [facility] was able to identify medication as 500mg ER Depakote * Saroj Carreon, - 09/18/2024 4:27 PM EDTAssociated Order(s): Critical Care Images from the original note were not included. [facility] Pt Name: Georgie Pond Birthdate: 2000 Chief Complaint: Chief Complaint Patient presents with Suicidal SI for the past few days, reports multiple stressors but does nto go into detail about them. Reports taking 5 tabs of of children's father's prescribed depakote, unknown mg per tab) around 1450 in attempt to harm herself. 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 Carreon. Patient is a 24 y.o. female who presents to the ED via EMS for evaluation of suicidal. Pt reports she took 5 pills of Depakote at 2:50 PM today in an attempt to harm herself. Pt states she is unsure of the mg per tablet. Pt reports the medication is prescribed to her children's father for his seizures. Pt is currently 30 weeks . Pt states this is her 5th . Pt reports experiencinga headache. Pt states she has been stressed recently. Pt states she takes prenatals daily. Pt denies any drug or alcohol use. Pt reports being seen by a mental health provider in the past. Pt has no known medication allergies. 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 Aprexia Migraine Daily Recurrent UTI Past Surgical History: Past Surgical History: Procedure Laterality Date SECTION 12/12/2023 PRIMARY FOR FAILURE TO PROGRESS Family History: Family History Adopted: Yes Problem Relation Age of Onset Lung cancer Maternal Grandmother Lung cancer Maternal Grandfather Breast cancer Mother Ovarian cancer Mother 30 Suicide Attempts Mother Depression Mother Alcohol abuse Mother Diabetes Mother Drug abuse Mother Hypertension Mother Conduct disorder Brother ADD / ADHD Brother Post-traumatic stress disorder Brother ADD / ADHD Brother Schizophrenia Brother Epilepsy Sister Colon cancer Neg Hx Uterine cancer Neg Hx Social History: Social History Socioeconomic History Marital status: Single Highest education level: 12th grade Tobacco Use Smoking status: Never Smokeless tobacco: Never Vaping Use Vaping status: Former Substance and Sexual Activity Alcohol use: Not Currently Comment: occasionally Drug use: Not Currently Types: Marijuana Comment: 3-4x/week-LAST TIME WAS A FEW MONTHS AGO Sexual activity: Yes Partners: Male control/protection: None Comment: 08/28/2023 FOB Ralph x 1 year Social Drivers of Health Financial Resource Strain: Low Risk (08/29/2023) Overall Financial Resource Strain (CARDIA) Difficulty of Paying Living Expenses: Not hard at all Food Insecurity: No Food Insecurity (09/18/2024) Hunger Screening Food Insecurity - Worry: Never True Food Insecurity - Inability: Never True Transportation Needs: No Transportation Needs (07/12/2024) PRAPARE - Transportation Lack of Transportation (Medical): No Lack of Transportation (Non-Medical): No Physical Activity: Sufficiently Active (03/26/2021) Exercise Vital Sign Days of Exercise per Week: 5 days Minutes of Exercise per Session: 150+ min Stress: Stress Concern Present (03/26/2021) [employer] [facility] - Occupational Stress Questionnaire Feeling of Stress : To some extent Social Connections: Moderately Isolated (03/26/2021) Social Connection and Isolation Panel [NHANES] Frequency of Communication with Friends and Family: Three times a week Frequency of Social Gatherings with Friends and Family: Never Attends Episcopalian Services: Never Active Member of Clubs or Organizations: No Attends Club or Organization Meetings: Patient declined Marital Status: Living with partner Interpersonal Safety: Not At Risk (08/29/2023) Humiliation, Afraid, Rape, and Kick questionnaire Fear of Current or Ex-Partner: No Emotionally Abused: No Physically Abused: No Sexually Abused: No Housing Instability: Low Risk (07/12/2024) Housing Instability Housing Instability: No Review of Systems: Review of Systems Physical Exam: ED Triage Vitals [09/18/24 1621] Temp Heart Rate Resp BP SpO2 37 ??C (98.6 ??F) 98 20 119/80 97 % Temp Source Heart Rate Source Patient Position BP Location FiO2 (%) Oral Monitor -- -- -- Vitals: 09/18/24 1621 BP: 119/80 Temp: 37 ??C (98.6 ??F) TempSrc: Oral Pulse: 98 Resp: 20 SpO2: 97% MAP (mmHg): 92 Weight: 83 kg (183 lb) Physical Exam Vitals reviewed. HENT: Head: Normocephalic and atraumatic. Eyes: Conjunctiva/sclera: Conjunctivae normal. Cardiovascular: Rate and Rhythm: Normal rate. Pulmonary: Effort: Pulmonary effort is normal. Breath sounds: Normal breath sounds. Abdominal: General: There is no distension. Palpations: Abdomen is soft. Musculoskeletal: General: Normal range of motion. Cervical back: Normal range of motion and neck supple. Skin: General: Skin is warm and dry. Neurological: General: No focal deficit present. Mental Status: She is alert and oriented to person, place, and time. GCS: GCS eye subscore is 4. GCS verbal subscore is 5. GCS motor subscore is 6. Procedure: Critical Care Performed by: Saroj Carreon DO Authorized by: Saroj Carreon DO Critical care provider statement: Critical care time (minutes): 35 Critical care was necessary to treat or prevent imminent or life-threatening deterioration of the following conditions: Toxidrome Critical care was time spent personally by me on the following activities: Discussions with consultants, blood draw for specimens, ordering and performing treatments and interventions, ordering and review of laboratory studies, pulse oximetry, re-evaluation of patient's condition, evaluation of patient's response to treatment and review of old charts Re-evaluation: Re-Evaluation Medical Decision Making This is an alert, oriented 24-year-old female patient presented to the emergency department after reported overdose of 5 x 500 mg Depakote extended-release tablets in an attempt to, and suicide. She is approximately 30 weeks . Patient was placed under a pink slip. [facility] placed on continuous monitoring. Patient was discussed with and admitted to Maternal- medicine at [facility] for further monitoring. Saroj Carreon DO Attending Emergency Physician Amount and/or Complexity of Data Reviewed Labs: ordered. Details: Labs notable for: CMP shows chloride 110, CO2 20, anion gap 4, calcium 7.9, albumin 2.6, and alkaline phosphatase 137. Valprotic acid 11. Acetaminophen 6.6. CBC shows hemglobin 10.6, hematocrit 30.8, and neutrophils absolte 7.8. ECG/medicine tests: ordered and independent interpretation performed. Decision- making details documented in ED Course. ED Course: ED Course as of 09/18/241838September 18, 2024 1643 Discussed with Josiah at Poison Control, recommends trending depakote level, minimum 6 hr monitoring of standard release and 12 hour minimum if extended release, would require transfer if extended delay for depakote level. Recommends adding ammonia and iron level [MB] 1645 I did confirm with lab that depakote level is a sendout lab [MB] 1651 Pharmacy identified the pill as Depakote 500 mg ER [MB] 1652 Patient placed under involuntary psychiatric hold [MB] 1653 ECG Interpretation Rhythm- sinus Rate- 100 [place]- normal Intervals- p.r. 129, QRS 88, QTC 454 Ischemia- none Assessment- sinus tachycardia, no acute ischemic changes [MB] [address] Evangelista who recommends transfer to [facility] or [facility] due to patient's status [MB] 1815 Awaiting access call back from [facility] [MB] 1815 Per OB, monitoring has been reassuring thus far [MB] [address] Jaramillo and admitted to special care at [facility] for further monitoring [MB] ED Course User Index [MB] Saroj Carreon DO Clinical Impressions as of 09/18/24 183 Suicide attempt ([facility]) . ED Disposition None . Please note that portions of this note were completed with a voice recognition program. Efforts were made to edit the dictations but occasionally words are mis-transcribed. Daina Chaudhary 09/18/24 1630 Daina Jet 09/18/24 1645 Daina Estevezmez 09/18/24 1731 Daina Chaudhary 09/18/24 1851 Saroj Carreon DO 09/19/242000 * Maribell Summers RN - 09/18/2024 4:27 PM EDTSummary: Triage Pt states that she took her children's father's prescribed Depakote around 1450 this afternoon. States she took 5 tabs of medication, unknown dose of each tab. Pt states she has been feeling suicidalfor the past few days, but does not disclose reasons why she is suicidal, but pt is tearful when expressing SI. PT states she does not currently take any mental health medication and stopped attending her counseling appointments 2 months ago. She states that this is not her first suicidal attempt and pt states she was admitted to [facility] when she was 17years old. documented in this encounter Plan of Treatment Not on file documented as of this encounter Goals Goal Patient Goal Type Associated Problems Recent Progress Patient-Stated? Author Goals General Yes Whitney Leong LSW Note: Goal: Decrease SI and symptoms of depression [...] talk to people in a mean way. documented as of this encounter Procedures Procedure Name Priority Date/Time Associated Diagnosis Comments POCT NURSING URINE MACROSCOPIC UA Routine 09/18/2024 7:24 PM EDT POCT NURSING URINE MACROSCOPIC UA Routine 09/18/2024 7:01 PM EDT DRUG SCREEN, URINE STAT 09/18/2024 6: 52 PM EDT AMMONIA STAT 09/18/2024 4:58 PM EDT EXTRA TUBES BLUE TOP Routine 09/18/2024 4:55 PM EDT VALPROIC ACID [place] STAT 4:55 PM EDT EXTRA TUBES Routine 09/18/2024 4:55 PM EDT CBC WITH AUTO DIFFERENTIAL STAT 09/18/2024 4:55 PM EDT IRON AND TIBC STAT 09/18/2024 4:55 PM EDT ETHANOL STAT 09/18/2024 4:55 PM EDT ACETAMINOPHEN LEVEL STAT 09/18/2024 4 :55 PM EDT SALICYLATE LEVEL STAT 09/18/2024 4:55 PM EDT COMPREHENSIVE METABOLIC PANEL STAT 09/18/2024 4:55 PM EDT ECG 12-LEAD STAT 09/18/2024 4:43 PM EDT PM ED CRITICAL CARE Routine 09/18/2024 4 :27 PM EDT documented in this encounter Results * (ABNORMAL) POCT Nursing Urine Macroscopic UA (09/18/2024 7:24 PM EDT) POC Urine Specific [place] 1.015 1.010, 1.015, 1.020, 1.025 09/18/2024 7:20 PM EDT [facility] POC Urine Leukocyte Esterase Moderate(A) Negative 09/18/2024 7:20 PM EDT [facility] POC Urine Nitrite Negative Negative 09/18/2024 7:20 PM EDT [facility] POC Urine pH 7.0 5.0, 6.0, 6.5, 7.0, 7.5, 8.0, 8.5, 5.5 09/18/2024 7:20 PM EDT [facility] POC Urine Protein Negative Negative 09/18/2024 7:20 PM EDT [facility] POC Urine Glucose Negative Negative 09/18/2024 7:20 PM EDT [facility] POC Urine Ketones 80 mg/dL(A) Negative 09/18/2024 7:20 PM EDT [facility] POC Urine Urobilinogen 0.2 E.U./dL 09/18/2024 7:20 PM EDT [facility] POC Urine Bilirubin Negative Negative 09/18/2024 7:20 PM EDT [facility] POC Urine Blood/HGB Negative Negative 09/18/2024 7:20 PM EDT [facility] Urine 09/18/2024 7:24 PM EDT 09/18/2024 7:20 PM EDT us Saroj Carreon DO POINT OF CARE TEST ORDER DONELL Final Result [facility] [address] [place] [address], [place] * (ABNORMAL) POCT Nursing Urine Macroscopic UA (09/18/2024 7:01 PM EDT) POC Urine Specific [place] 1.015 1.010, 1.015, 1.020, 1.025 09/20/2024 12:17 AM EDT [facility] POC Urine Leukocyte Esterase Small(A) Negative 09/20/2024 12:17 AM EDT [facility] POC Urine Nitrite Negative Negative 09/20/2024 12:17 AM EDT [facility] POC Urine pH 7.0 5.0, 6.0, 6.5, 7.0, 7.5, 8.0, 8.5, 5.5 09/20/2024 12:17 AM EDT [facility] POC Urine Protein Negative Negative 09/20/2024 12:17 AM EDT [facility] POC Urine Glucose Negative Negative 09/20/2024 12:17 AM EDT [facility] POC Urine Ketones 80 mg/dL(A) Negative 09/20/2024 12:17 AM EDT [facility] POC Urine Urobilinogen 0.2 E.U./dL 09/20/2024 12:17 AM EDT [facility] POC Urine Bilirubin Negative Negative 09/20/2024 12:17 AM EDT [facility] POC Urine Blood/HGB Negative Negative 09/20/2024 12:17 AM EDT [facility] Urine 09/18/2024 7:01 PM EDT 09/20/2024 12:17 AM EDT us Saroj Carreon DO POINT OF CARE TEST ORDER DONELL Final Result [facility] [address] [place] [address], * Drug Screen, Urine (09/18/2024 6:52 PM EDT) AMPHETAMINE/METHAMP Negative Negative 09/18 7:21 PM EDT [facility] Comment:AMPH/METH screening cut off = 1000 ng/mL COCAINE METABOLITE Negative Negative 2024 7:21 PM EDT [facility] Comment:Cocaine screening cu t off value = 300 ng/mL ECSTASY Negative Negative 09/18/2024 7:21 PM EDT [facility] Comment:Ecstasy screening cu t off value = 500 ng/mL METHADONE Negative Negative 09/18/2024 7:21 PM EDT [facility] Comment:Methadone screening cut off value = 300 ng/mL. OPIATES Negative Negative 09/18/2024 7:21 PM EDT [facility] Comment: Opiates screening cut off value = 300 ng/mL This test is used for the detection of codeine, hydrocodone (>1000 ng/mL), morphine and hydromorphone (>900 ng/mL) in urine. OXYCODONE Negative Negative 09/18/2024 7:21 PM EDT [facility] Comment: Oxycodone screening cut off value = 300 ng/mL This test is used for the detection of oxycodone and oxymorphone in urine. PHENCYCLIDINE Negative Negative 09/18/2024 7:21 PM EDT [facility] Comment:Phencyclidine screen ing cut off value = 25 ng/mL CANNABINOIDS Negative Negative 09/18/2024 7:21 PM EDT [facility] Comment:Cannabinoids/THC scr eening cut off value = 50 ng/mL Urine Barbiturates Negative Negative 2024 7:21 PM EDT [facility] Comment:Barbiturates screeni ng cut off value = 200 ng/mL BENZODIAZEPINES Negative Negative 7:21 PM EDT [facility] Comment:Benzodiazepines scre ening cut off value = 200 ng/mL Urine Urine specimen collection, clean catch / Unknown Collection / Unknown 09/18/2024 6:52 PM EDT 09/18/2024 7:00 PM EDT us Saroj Carreon DO URINE ORDERABLES Final R esult [facility] [address] [place] [address], * Ammonia (09/18/2024 4:58 PM EDT) AMMONIA 15 11 - 35 umol/L 09/18/2024 5:19 PM EDT [facility] Blood Venous blood / Unknown 09/18/2024 4:58 PM EDT 09/18/2024 5:00 PM EDT us [employer] DO LAB BLOOD ORDERABLES Fin al Result [address] [place] [address], [place] * Light Blue Top (09/18/2024 4:55 PM EDT) Extra Tube Auto Resulted 09/18/2024 6:01 PM EDT [facility] Blood Venous blood / Unknown 09/18/2024 4:55 PM EDT 09/18/2024 5:00 PM EDT [employer] DO LAB BLOOD ORDERABLES Fin al Result Performing Organization Address City/[facility]/ZIP Co de Phone Number [address] [place] [address], [place] * (ABNORMAL) Iron and TIBC (09/18/2024 4:55 PM EDT) IRON 62 50 - 170 ug/dL 09/18/2024 8:57 PM EDT [facility] TRANSFERRIN 400(H) 168 - 336 mg/dL 09/18/2024 8:57 PM EDT [facility] IRON BINDING 560(H) 250 - 425 ug/dL 09/18/2024 8:57 PM EDT [facility] IRON SATURATION 11(L) 15 - 50 % SATURATION 09/18/2024 8:57 PM EDT [facility] Blood Venous blood / Unknown 09/18/2024 4:55 PM EDT 09/18/2024 5:00 PM EDT us [employer] LAB BLOOD ORDERABLES Fin al Result [facility] [address] [place] [address], [place] [phone] * (ABNORMAL) Valproic acid, depakane (09/18/2024 4:55 PM EDT) VALPROIC ACID 11(L) 50 - 100 ug/mL 09/18/2024 5:23 PM EDT [facility] Blood Venous blood / Unknown 09/18/2024 4:55 PM EDT 09/18/2024 5:00 PM EDT [employer] LAB BLOOD ORDERABLES Fin al Result Performing Organization Address [facility] Co de Phone Number [address] [place] [address], [place] * Salicylate level (09/18/2024 4:55 PM EDT) SALICYLATE <4.0 2.0 - 25.0 mg/dL 09/18/2024 5:21 PM EDT [facility] Blood 09/18/2024 4:55 PM EDT 09/18/2024 5:00 PM EDT Narrative [facility] - 09/18/2024 5:21 PM EDT Reference ranges are for therapeutic limits. [employer] LAB BLOOD ORDERABLES Fin al Result Performing Organization Address [facility] Co de Phone Number [address] [place] [address], [place] * Ethanol (09/18/2024 4:55 PM EDT) ETHANOL <0.010 <=0.080 g/dL 09/18/2024 5:21 PM EDT [facility] Comment: This report is intended for use in clinical monitoring or management of patients. Blood 09/18/2024 4:55 PM EDT 09/18/2024 5:00 PM EDT [employer] LAB BLOOD ORDERABLES Fin al Result [facility] [address] [place] [address], * (ABNORMAL) Comprehensive metabolic panel (09/18/2024 4:55 PM EDT) SODIUM 134 134 - 146 mmol/L 09/18/2024 5:21 PM EDT [facility] POTASSIUM 3.5 3.5 - 5.0 mmol/L 09/18/2024 5:21 PM EDT [facility] CHLORIDE 110(H) 98 - 109 mmol/L 09/18/2024 5:21 PM EDT [facility] CARBON DIOXIDE 20(L) 22 - 32 mmol/L 09/18/2024 5:21 PM EDT [facility] ANION GAP 4(L) 5 - 15 mmol/L 09/18/2024 5:21 PM EDT [facility] BLOOD UREA NITROGEN 6 5 - 23 mg/dL 09/18/2024 5:21 PM EDT [facility] CREATININE 0.48 0.40 - 1.00 mg/dL 09/18/2024 5:21 PM EDT [facility] Comment:METHOD TRACEABLE TO IDMS STANDARD GLUCOSE 87 65 - 99 mg/dL 09/18/2024 5:21 PM EDT [facility] CALCIUM 7.9(L) 8.5 - 10.5 mg/dL 09/18/2024 5:21 PM EDT [facility] TOTAL PROTEIN 6.3 6.0 - 8.0 g/dL 09/18/2024 5:21 PM EDT [facility] ALBUMIN 2.6(L) 3.2 - 5.3 g/dL 09/18/2024 5:21 PM EDT [facility] ALKALINE PHOSPHATASE 137(H) 39 - 130 U/L 09/18/2024 5:21 PM EDT [facility] AST 14 <=41 U/L 09/18/2024 5:21 PM EDT [facility] ALT 9 <=31 U/L 09/18/2024 5:21 PM EDT [facility] BILIRUBIN,TOTAL 0.6 0.3 - 1.2 mg/dL 09/18/2024 5:21 PM EDT [facility] EGFR Non-Race Dependent >90 >=60 ml/min/1.7 3sq.m 09/18/2024 5:21 PM EDT [facility] Comment: eGFR not reported due to non-numeric value for Creatinine. Reported eGFR is based on the CKD-EPI 2020 equation that does not use a race coefficient. Blood 09/18/2024 4:55 PM EDT 09/18/2024 5:00 PM EDT us Saroj Carreon DO LAB BLOOD ORDERABLES Fin al Result [facility] [address] [place] [address], * (ABNORMAL) CBC auto differential (09/18/2024 4:55 PM EDT) WBC 9.7 4 - 11 x10E9/L 09/18/2024 5:05 PM EDT [facility] RBC Count 3.82 3.8 - 5.2 X10E12/L 09/18/2024 5:05 PM EDT [facility] Hemoglobin 10.6(L) 11.7 - 15.5 g/dL 09/18/2024 5:05 PM EDT [facility] Hematocrit 30.8(L) 35 - 47 % 09/18/2024 5:05 PM EDT [facility] MCV 81 80 - 100 fL 09/18/2024 5:05 PM EDT [facility] MCH 27.8 27 - 34 pg 09/18/2024 5:05 PM EDT [facility] MCHC 34.5 32 - 36 g/dL 09/18/2024 5:05 PM EDT [facility] RDW 14.1 11.5 - 15 % 09/18/2024 5:05 PM EDT [facility] Platelet Count 221 150 - 450 X10E9/L 09/18/2024 5:05 PM EDT [facility] MPV 8.3 7 - 12 fL 09/18/2024 5:05 PM EDT [facility] Neutrophils Relative 80.6 % 09/18/2024 5:05 PM EDT [facility] Lymphocytes Relative 15.0 % 09/18/2024 5:05 PM EDT [facility] Monocytes Relative 4.0 % 09/18/2024 5:05 PM EDT [facility] Eosinophils Relative 0.3 % 09/18/2024 5:05 PM EDT [facility] Basophils Relative 0.1 % 09/18/2024 5:05 PM EDT [facility] Neutrophils Absolute (A) 7.8(H) 1.5 - 6.6 10*3/uL 09/18/2024 5:05 PM EDT [facility] Lymphocytes Absolute 1.5 1.0 - 3.5 10*3/uL 09/18/2024 5:05 PM EDT [facility] Monocytes Absolute 0.4 0.0 - 0.9 10*3/uL 09/18/2024 5:05 PM EDT [facility] Eosinophils Absolute 0.0 0.0 - 0.4 10*3/uL 09/18/2024 5:05 PM EDT [facility] Basophils Absolute 0.0 0.0 - 0.2 10*3/uL 09/18/2024 5:05 PM EDT [facility] Differential Type AUTOMATED DIFFERENTIAL 09/18/2024 5:05 PM EDT [facility] Blood 09/18/2024 4:55 PM EDT 09/18/2024 5:00 PM EDT us Saroj Carreon DO LAB BLOOD ORDERABLES Fin al Result Performing Organization Address City/State/[facility] Co de Phone Number [address] [place] [address], [place] * (ABNORMAL) Acetaminophen level (09/18/2024 4:55 PM EDT) ACETAMINOPHEN 6.6(L) 10.0 - 30.0 ug/mL 09/18/2024 5:21 PM EDT [facility] Blood 09/18/2024 4:55 PM EDT 09/18/2024 5:00 PM EDT Narrative [facility] - 09/18/2024 5:21 PM EDT Reference ranges are for therapeutic limits. us Saroj Carreon DO LAB BLOOD ORDERABLES Fin al Result Performing Organization Address [facility] de Phone Number [address] [place] [address], [place] * ECG 12 lead (09/18/2024 4:43 PM EDT) 09/18/2024 4:43 PM EDT Narrative [facility] - 09/18/2024 9:43 PM EDT us Saroj Carreon DO ECG ORDERABLES Final Re sult Performing Organization Address [facility] de Phone Number [email or web address] * Critical Care (09/18/2024 4:27 PM EDT) Narrative Saroj Carreon DO - 09/18/2024 4:27 PM EDT Saroj Carreon DO 09/19/2024 8:01 PM Critical Care Performed by: Saroj Carreon DO Authorized by: Saroj Carreon DO Critical care provider statement: Critical care time (minutes): 35 Critical care was necessary to treat or prevent imminent or life-threatening deterioration of the following conditions: Toxidrome Critical care was time spent personally by me on the following activities: Discussions with consultants, blood draw for specimens, ordering and performing treatments and interventions, ordering and review of laboratory studies, pulse oximetry, re-evaluation of patient's condition, evaluation of patient's response to treatment and review of old charts us Saroj Carreon DO PROCEDURE/MINOR SURGICAL ORDERABLES Final Result documented in this encounter Visit Diagnoses Diagnosis Suicide attempt ([facility])- Primary Suicide and self-inflicted injury by unspecified means documented in this encounter Additional Health Concerns Assessment Noted Time PHQ-9 Depression Total Score: 4 08/29/19 24 12:30 PM EDT documented as of this encounter Care Teams [employer] 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
--- OUTSIDE RECORDS SUMMARY | 2024-09-18 22:04 | XMS_ITS | Encounter Summary ---
Author Organization Caption Data tem Address [id number] [address] [place] [address] Care Team Providers Care Calender Inspector Name Role Phone No Pcp, No Pcp Primary Care Provider Unavailabl e Reason for Referral * Misc (Routine) - Pending Review Specialty Diagnoses / Procedures Referred By Wilbur ibarra Referred To Contact Procedures Discharge Follow-Up Bibiana Gomez MD [address] [place] [address] Phone: tel: fax: Referral ID Status Reason Start Date Expiration Date V isits Requested Visits Authorized [id number] Pending Review 09/22/2024 09/22/2025 1 1 Reason for Visit * Reason Comments Suicidal Pt states did not ta ke any meds * Auth/Cert Specialty Diagnoses / Procedures Referred By Contkingston t Referred To Contact Diagnoses Suicide Attempt 33 weeks Bala Randle MD [address] [facility] [place] [address] Phone: tel: fax: Referral ID Status Reason Start Date Expiration Date Visits Re quested Visits Authorized [id number] 1 1 Encounter Details Date Type Department Care Team (Latest Contact Info) Description 09/18/2024 10:04 PM EDT - 09/22/2024 3:00 AM EDT Hospital Encounter [facility] - GEN 3 Antepartum [address] [place] [address] Bala Randle MD [address] [place] [address], [address] [place] [address] Discharge Disposition: Another Hospital Social History Tobacco Use Types Packs/Day Years Used Date Smoking Tobacco: Never Smokeless Tobacco: Never Tobacco Cessation:Counseling Given: Not Answered Alcohol Use Standard Drinks/Week Comments Not Currently 0 (1 standard drink = 0.6 oz pur e alcohol) occasionally [facility] Utilities Answer Date Recorded In the past 12 months has th e electric, gas, oil, or water company threatened to shut off services in your home? No 09/22/2024 Social Connection and Isolation Panel [NHANES] A nswer Date Recorded In a typical week, how many times do you talk on the phone with family, friends, or neighbors? Three times a week 03/26/20 How often do you get togethe r with friends or relatives? Never 03/26/2021 How often do you attend chur ch or judaism services? Never 03/26/2021 Do you belong to any clubs o r organizations such as anabaptism groups, unions, fraternal or athletic groups, or [...] Answer Date Recorded Total Score 4 08/29/2023 [place] [facility] Questionnaire Answer Date Recorded [...] medical appointments or from getting medications? No 09/04 In the past 12 months, has l ack of transportation kept you from meetings, work, or from getting things needed for daily living? No 09/22/2024 [place] Depression Scale Answer Date Recorded [place] Depression Scale Total 13 09/12/2023 The thought of harming myself has occurred to me . Never 09/12/2023 Housing Instability Answer Date Recorde d Are you worried or concerned that in the next two months you may not have stable housing that you own, rent or stay in as a part of a household? No 09/22/2024 Childcare Answer Date Recorded Do problems getting child ca re make it difficult for you to work or study? No 08/29/2023 Employment Answer Date Recorded Do you need help finding a [facility] career center and/or a training program? No 03/26/2021 Hunger Screening Answer Date Recorded Within the past 12 months we worried whether our food would run out before we got money to buy more. Never True 09/22/2024 Within the past 12 months th e food we bought just didn't last and we didn't have money to get more. Never True 09/22/2024 Purpose - Life Answer Date Recorded I have a purpose and direction in my life. Giulia hanna Agree nor Disagree 03/26/2021 Education Answer Date [...] Sign Reading Time Taken Comments Blood Pressure 113/58 09/21/2024 10:31 PM EDT Pulse 100 09/21/2024 10:31 PM EDT Temperature 36.8 C (98.2 F) 09/21/2024 10:31 PM EDT Respiratory Rate 14 09/21/2024 10:3 1 PM EDT Oxygen Saturation - - Inhaled Oxygen Concentration - - Weight 79.8 kg (175 lb 14.8 oz) 09/21/2024 5:00 AM EDT Height - - Body Mass Index 33.24 08/03/2024 6:33 AM EDT documented in this encounter Functional Status documented as of this encounter Medications at Time of Discharge [id number] acid () 29 mg iron- 1 mg tablet,chewable Chew 1 tablet and swallow in the morning for 14 days. 14 tablet 09/24/2024 10/08/2024 vit,sal 74/iron/folic ( VITAMIN 1+1 ORAL) Take by mouth in the morning. 09/24/2024 documented as of this encounter Progress Notes * Sonja Coleman, - 09/21/2024 7:29 AM EDT [facility] Antepartum Progress Note Subjective: Georgie Pond is a 24 y.o. with an Estimated Date of Delivery: 11/24/24 at 30w6d admitted for suicidal ideation and attempt. No acute events overnight. Patient sleeping at time of rounds. Attempted to wake but was unsucessful. RN sitter in room with patient, states patient has been sleeping all night. Patient did not report any contractions, loss offluid, vaginal bleeding, and reports movement. Vitals: Temp: [36.5 ??C (97.7 ??F)-36.7 ??C (98 ??F)] 36.7 ??C (98 ??F) Pulse: [72-91] 74 Resp: [17-18] 17 Blood Pressure : (107-114)/(58-64) 107/58 O2 Device: None (Room air) Current Medications: Current Facility-Administered Medications: acetaminophen (TYLENOL EXTRA STRENGTH) tablet 1,000 mg, 1,000 mg, oral, Q6H PRN, Rosangela Rahman DO, 1,000 mg at 09/19/24 2017 [id number] acid () 29 mg iron- 1 mg per chewable tablet 1 tablet, 1 tablet, oral, Daily, Lexus Byrd MD, 1 tablet at 09/19/24 1159 Laboratory Results: Intake/Output Summary (Last 24 hours) at 09/21/2024 0731 Last data filed at 09/21/2024 0400 Gross per 24 hour Intake -- Output 0 ml Net 0 ml Lab Results Component Value Date WBC 9.2 09/19/2024 HGB 10.3 (L) 09/19/2024 HCT 30.4 (L) 09/19/2024 MCV 80 09/19/2024 PLT 231 09/19/2024 Lab Results Component Value Date GLU 96 09/19/2024 CALCIUM 8.1 (L) 09/19/2024 K 3.5 09/19/2024 CO2 25 09/19/2024 BUN 5 09/19/2024 CREATININE 0.45 09/19/2024 Lab Results Component Value Date ALBUMIN 3.0 (L) 09/19/2024 AST 11 09/19/2024 ALT 5 09/19/2024 ALKALINEPHO 79 12/22/2022 TOTALPROTEI 5.5 (L) 09/19/2024 Physical Exam: General: Patient is AAO X 3 Abd: soft, no guarding, non tender, no rebound, and not distended, gravid Ext: no edema and negative homans FHT: 140 baseline, moderate variability, present acceleration, absent decelerations TOCO: None A/P 24 y.o. with an Estimated Date of Delivery: 11/24/24 at 30w6d, admitted for suicidal ideation and attempt. Suicidal ideation Suicide attempt by ingesting Depakote pills machine scallop cutter psychiatrist on 09/19 recommended to pink slip patient, awaiting for bed at [facility] Social work consulted Patient refusing labs Anxiety and depression No meds Routine antepartum care: OB reg diet BID EFM Office US 07/07: transverse, post placenta, MELLISA wnl, EFW 313g (41.7%), AC 46% BSUS 09/19: Oblique MFM US ordered Sonja Coleman DO Technician Test Systems Resident, PGY-1 Cosigned by Brady Ricketts MD at 09/21/2024 8:40 AM EDT Associated attestation - Brady Ricketts MD - 09/21/2024 8:40 AM EDT M staff note Patient seen examined independently agree with resident note and plan. 24-year-old 123 at 30 weeks and 6 days gestation admitted with suicide attempt. Patient doing well. No obstetrical issues. Will sign off today. Patient is scheduled to be transferred as an inpatient psych at [facility]. BRADY RICKETTS MD * Angelina Church MD - 09/21/2024 7:05 AM EDT Antepartum Progress Note Subjective: Georgie Pond is a 24 y.o. at 30w6d admitted with SI. Patient denies any obstetric concerns this AM. She endorses good movement. She denies vaginal bleeding, leaking of fluid, or contractions. She denies SI this morning. She states she got to a breaking point due to outside factors. She states she has eliminated contact with the person who was causing her stress. She denies thoughts of hurting herself, baby or others. Current Medications: Current Facility-Administered Medications: acetaminophen (TYLENOL EXTRA STRENGTH) tablet 1,000 mg, 1,000 mg, oral, Q6H PRN, Rosangela Rahman DO, 1,000 mg at 09/19/24 2017 [id number] acid () 29 mg iron- 1 mg per chewable tablet 1 tablet, 1 tablet, oral, Daily, Lexus Byrd MD, 1 tablet at 09/19/24 1159 Physical Exam: Patient Vitals for the past 24 hrs: BP Temp Temp src Pulse Resp Weight 09/21/24 0500 -- -- -- -- -- 79.8 kg (175 lb 14.8 oz) 09/21/24114 107/58 -- -- 74 -- -- 09/21/24 0112 -- 36.7 ??C (98 ??F) Oral 72 17 -- 09/20/24 1935 113/63 36.5 ??C (97.7 ??F) Oral 91 18 -- 09/20/24 1310 114/64 36.5 ??C (97.7 ??F) Oral 88 18 -- General: awake, alert and oriented, no acute distress Abdominal: soft, gravid without fundal tenderness, no rebound or guarding Lower Extremities: no calf tenderness or lower extremity edema FHT: Baseline Rate A: 140 bpm, moderate variability, present acceleration, no significant decelerations TOCO: None Intake/Output Summary (Last 24 hours) at 09/21/2024 0705 Last data filed at 09/21/2024 0400 Gross per 24 hour Intake -- Output 0 ml Net 0 ml Laboratory Results: Lab Results Component Value Date WBC 9.2 09/19/2024 HGB 10.3 (L) 09/19/2024 HCT 30.4 (L) 09/19/2024 MCV 80 09/19/2024 PLT 231 09/19/2024 Lab Results Component Value Date GLU 96 09/19/2024 CALCIUM 8.1 (L) 09/19/2024 K 3.5 09/19/2024 CO2 25 09/19/2024 BUN 5 09/19/2024 CREATININE 0.45 09/19/2024 Lab Results Component Value Date ALBUMIN 3.0 (L) 09/19/2024 AST 11 09/19/2024 ALT 5 09/19/2024 ALKALINEPHO 79 12/22/2022 TOTALPROTEI 5.5 (L) 09/19/2024 Imaging Ultrasound transabdominal follow up per fetus HISTORY: Vaginal bleeding in COMPARISON: 05/15/2024 EVALUATION: [...] intrauterine with detailed biometric measurements provided above. Finalized by Obi Shah MD on 07/07/2024 2:54 PM A/P Georgie Pond is a 24 y.o. at 30w6d admitted after suicide attempt Suicide Attempt S/p ingestion of Depakot pills [place] slipped - awaiting bed at [facility] Denies SI, HI this AM Continue sitter Appreciate psychiatry input Routine Antepartum Care OB regular diet BID EFM History fo 1 prior CS Transverse lie Maude Church MD PGY-4 Cosigned by Bala Randle MD at 09/21/2024 1:58 PM EDT Associated attestation - Bala Randle MD - 09/21/2024 1:58 PM EDT Attending Attestation: I saw the patient. I performed the critical/arevalo portions of the service. I was directly involved inthe management and treatment plan of the patient. I reviewed the resident's note. . Additional Notes/Findings: Results from last 7 days Lab Units 09/19/24 0249 09/18/24 1655 WBC x10E9/L 9.2 9.7 HEMOGLOBIN g/dL 10.3* 10.6* HEMATOCRIT % 30.4* 30.8* PLATELETS X10E9/L 231 221 Results from last 7 days Lab Units 09/19/24 0249 09/18/24 1655 POTASSIUM mmol/L 3.5 3.5 CHLORIDE mmol/L 106 110* CO2 mmol/L 25 20* BUN mg/dL 5 6 CREATININE mg/dL 0.45 0.48 CALCIUM mg/dL 8.1* 7.9* ALK PHOS U/L 121 137* ALT U/L 5 9 AST U/L 11 14 No acute events overnight Assessment 1. 123 at 30 weeks 6 days 2. Suspected suicide attempt with ingestion of Depakote patient stable Plan Await psychiatric services input await transport to inpatient psych unit of [facility] * Lexus Byrd MD - 09/20/2024 7:12 AM EDT Antepartum Progress Note Subjective: Georgie Pond is a 24 y.o. with an Estimated Date of Delivery: 11/24/24 at 30w5d admitted for suicidal ideation and attempt. No acute events overnight. Reports no symptoms and that she is feeling well overall. Patient denies contractions, denies loss of fluid, denies vaginal bleeding, reports movement. Vitals: Vitals: 09/19/24 0253 09/19/24 1200 09/19/24 1939 09/20/24 0609 BP: 115/66 129/66 117/72 109/60 Pulse: 93 96 101 85 Resp: 12 16 18 16 Temp: 36.6 ??C (97.9 ??F) 36.8 ??C (98.2 ??F) 36.6 ??C (97.8 ??F) 36.4 ??C (97.5 ??F) TempSrc: Oral Oral Oral Oral Physical Exam: Blood pressure 109/60, pulse 85, temperature 36.4 ??C (97.5 ??F), temperature source Oral, resp. rate 16, last menstrual period 02/16/2024, unknown if currently . General: Patient is AAO X 3 Abd: soft, no guarding, non tender, no rebound, and not distended, gravid Ext: no edema and negative homans FHT: Baseline Rate A: 135 bpm, moderate variability, present acceleration, absent decelerations TOCO: n/a Current Medications: Current Facility-Administered Medications: acetaminophen (TYLENOL EXTRA STRENGTH) tablet 1,000 mg, 1,000 mg, oral, Q6H PRN, Rosangela Rahman, DO, 1,000 mg at 09/19/24 2017 [id number] acid () 29 mg iron- 1 mg per chewable tablet 1 tablet, 1 tablet, oral, Daily, Lexus Byrd MD, 1 tablet at 09/19/24 1159 Laboratory Results: No intake or output data in the 24 hours ending 09/20/24 0712 Lab Results Component Value Date WBC 9.2 09/19/2024 HGB 10.3 (L) 09/19/2024 HCT 30.4 (L) 09/19/2024 MCV 80 09/19/2024 PLT 231 09/19/2024 Lab Results Component Value Date GLU 96 09/19/2024 CALCIUM 8.1 (L) 09/19/2024 K 3.5 09/19/2024 CO2 25 09/19/2024 BUN 5 09/19/2024 CREATININE 0.45 09/19/2024 Lab Results Component Value Date ALBUMIN 3.0 (L) 09/19/2024 AST 11 09/19/2024 ALT 5 09/19/2024 ALKALINEPHO 79 12/22/2022 TOTALPROTEI 5.5 (L) 09/19/2024 A/P Georgie Pond, 24 y.o. with an Estimated Date of Delivery: 11/24/24 at 30w5d, admitted for suicidal attempt and ideation. 1. Suicidal Ideation -OB team spoke with educational assistant psychiatrist and recommended to pink slip the patient, awaiting for a bed at [facility] -Poison control recommended q4 ammonia and valproic acid levels for 12 hours -Ammonia: -Valproic acid: -patient refusing labs -social work and MFM consulted Anxiety & depression Does not take any medications Routine antepartum care OB regualr diet BID EFM Office US 07/07: transverse, post placenta, MELLISA wnl, EFW 313g (41.7%), AC 46% Bedside US 09/19: Oblique MFM US ordered Lexus Byrd MD Technician Test Systems Resident, PGY-2 Cosigned by Brinda Palmer MD at 09/20/2024 6:36 PM EDT Associated attestation - Brinda Palmer MD - 09/20/2024 6:36 PM EDT Attending Attestation: I saw the patient. I performed the critical/arevalo portions of the service. I was directly involved inthe management and treatment plan of the patient. I reviewed the resident's note. Additional Notes/Findings: Planning on transport to [facility] for inpatient psych consultation d/t SI and attempt. Pt doing well from OB perspective. Brinda Palmer MD documented in this encounter H&P Notes * Lexus Byrd MD - 09/19/2024 12:01 AM EDT ObGyn History and Physical Chief Complaint: Transfer from [place] for Suicidal Ideation SUBJECTIVE HPI Georgie Pond is a 24 y.o. @ 30w3d who presents to [facility] from [place] for suicidal attempt. The patient initially presented to [facility] after reportedly taking 5 pills of 500 mg Depakote, in attempts to overdose. The patient at has been feeling suicidal. This is not the patient's 1st suicide attempt, she has been admitted to [facility] in the past when she was 17 years old for a prior suicidal attempt. The patient obtained the Depakote from her children's father who was prescribed it for seizures. While at [place] they obtained a Depakote level that was 11, acetaminophen level that was less than 10, and ethanol level that was normal. The patientwas transferred to [facility] for psychiatric evaluation and to have a sitter at bedside. Upon arrival to [facility] the patient reports feeling well. She states that she told her ex-boyfriend that she wanted to by taking his Depakote medication. But says that she never actually took the Depakote medication and her ex-boyfriend and his current girlfriend called EMS who took herto the hospital telling them that she took 5 of his pills. Patient states that she is feeling suicidal but does not want to and never actually took any pills. She says that she does not have a plan. She denies any homicidal ideation. Otherwise denies any OB concerns such as vaginal bleeding, leakage of fluid, or contractions. Reports good movement. Review of Systems - All pertinent positives are noted in the HPI. Other systems reviewed and are negative. Allergies Not on File ObGyn Hx OB History Para Term AB Living 5 2 1 1 2 3 SAB IAB Ectopic Multiple Live Births 2 0 0 1 2 # Outcome Date GA Lbr Toney/2nd Weight Sex Type Anes PTL Lv 5 Current 4 Term 12/12/23 F CS-LTranv Spinal N Complications: Failure to Progress in Second Stage 3A 02/03/23 25w2d 08:45 0.835 kg M Vag-Spont None Y ANDREINA Complications: infant of 25 completed weeks of gestation 3B 02/03/23 25w2d 08:45 / 00:05 0.835 kg M Vag-Spont None Y ANDREINA Complications: infant of 25 completed weeks of gestation 2 2020 Comments: very early 1st trimester Complications: Failure to Progress in Second Stage 1 2019 Comments: very early 1st trimester Medical Hx Past Medical History: Diagnosis Date ADHD (attention deficit hyperactivity disorder) Anxiety Arthritis extra vertabrae in her back Blood in stool hx constipation Depression GERD (gastroesophageal reflux disease) Headache 11/27/2023 Lumbar spine pain 06/02/2019 Memory loss pt didnt talk till she was 2-2.5. Aprexia Migraine Daily Recurrent UTI Surgical Hx Past Surgical History: Procedure Laterality Date SECTION 12/12/2023 PRIMARY FOR FAILURE TO PROGRESS Family Hx Family History Adopted: Yes Problem Relation Age [...] cancer Neg Hx Uterine cancer Neg Hx Psychosocial Social History Socioeconomic History Marital status: Single Highest education level: 12th grade Tobacco Use Smoking status: Never Smokeless tobacco: Never Vaping Use Vaping status: Former Quit date: 05/06/2021 Substance and Sexual Activity Alcohol use: Not [...] 150+ min Stress: Stress Concern Present (03/26/2021) [place] [facility] [employer] [facility] - Occupational Stress Questionnaire Feeling of Stress : To some extent Social Connections: Moderately Isolated (03/26/2021) Social Connection and Isolation Panel [NHANES] Frequency of Communication with Friends and Family: Three times a week Frequency of Social Gatherings with Friends and Family: Never Attends Latter-Day Services: Never Active Member of Clubs or Organizations: No Attends Club or Organization Meetings: Patient declined Marital Status: Living with partner Interpersonal Safety: Not At Risk (08/29/2023) Humiliation, Afraid, Rape, and Kick questionnaire Fear of Current or Ex-Partner: No Emotionally Abused: No Physically Abused: No Sexually Abused: No Housing Instability: Low Risk (07/12/2024) Housing Instability Housing Instability: No OBJECTIVE Vitals Vitals: 09/18/24 2312 BP: 116/57 Pulse: 87 Resp: 14 Temp: 36.6 ??C (97.9 ??F) TempSrc: Oral Physical Exam: Consitutional: well-appearing; NAD Psychological: Alert and oriented to person, place and time Neurological: No deficits Head/Neck: No masses/adenopathy, non-tender Skin: Normal temp and turgor, dry, intact Respiratory: Respirations even and non labored Cardiovascular: Regular rate and rhythm Abdomen: Soft, gravid, non-tender to palpation Musculoskeletal: ROM x 4, normal gait Extremities: No LE edema, non-tender FHT: 140 , moderate variability, present acceleration, absent decelerations [place]: n/a Labs ABO/Rh: Lab Results Component Value Date ABOINTEP O 08/29/2023 RHINTEP Positive 08/29/2023 Group B Strep: No results found for: EXTGBS Rubella: Lab Results Component Value Date RUBELLAIMMU 15 07/27/2024 Hepatitis B Surface Antigen: Lab Results Component Value Date HEPBSAG Non-Reactive 07/27/2024 HIV: Lab Results Component Value Date HIV4 Non-Reactive 08/29/2023 RPR (VDRL): Lab Results Component Value Date SYPHILISTOT <0.2 07/27/2024 ASSESSMENT & PLAN Georgie Pond is a 24 y.o. @ 30w3d who presents to triage with suicidal ideation. Suicidal Ideation Patient denies any suicidal attempts, feels like she wanted to today, but did not attempt to nor does she have a plan to Depakote level that was 11, acetaminophen level normal 10, and ethanol level that was normal Will have patient sitter in place Psychiatry consulted MFM consulted poison control: q4 ammonia & valproic acid for 12hrs after ingestion Anxiety & depression Does not take any medications Routine antepartum care OB regualr diet BID EFM Office US 07/07: transverse, post placenta, MELLISA wnl, EFW 313g (41.7%), AC 46% Bedside US 09/19: Oblique MFM US ordered Lexus Byrd MD Technician Test Systems Resident, PGY-2 Cosigned by Karina May MD at 09/19/2024 7:00 AM EDT Associated attestation - Karina May MD - 09/19/2024 7:00 AM EDT Attending Attestation: I saw the patient. I participated and was physically present during the critical/arevalo portions of the service. I was directly involved in the management and treatment plan of the patient. I reviewed the resident's note. Additional Notes/Findings: 24yo P1123 @ 30w3d transferred from [facility] after reported attempted suicide by overdosingwith ex-BF's Depakote - patient states that she did not actually take the Depakote. She has just been feeling really overwhelmed lately - MFM and psych consult ordered - sitter in room - continue to monitor depakote and ammonia levels documented in this encounter Consult Notes * Brady Ricketts MD - 09/19/2024 8:13 AM EDT MFM staff note REASON FOR ADMISSION: Suicide attempts. HISTORY OF PRESENT ILLNESS: Georgie Pond is a pleasant 24 y.o. G 5 P1 1- 3. at 30w4d due on Estimated Date of Delivery: 11/24/24 . Suicide Attempt by ingesting Depakote pills. Currently the patient has no complaints. The patient denies nausea, vomiting, abdominal pain, vaginal bleeding, SOB or chest pain. Patient Active Problem List Diagnosis Slow transit constipation Episode of recurrent major depressive disorder Intractable chronic migraine without aura Hx of delivery, currently Acute cystitis Marijuana use during Hx of thyroid disease Maternal varicella, non-immune Intrauterine Cystic fibrosis carrier Late care Short interval between pregnancies affecting , antepartum Headache Previous delivery affecting , antepartum Urinary tract infection in mother during , antepartum Past Medical History: Diagnosis Date ADHD (attention deficit hyperactivity disorder) Anxiety Arthritis extra vertabrae in her back Blood in stool hx constipation Depression GERD (gastroesophageal reflux disease) Headache 11/27/2023 Lumbar spine pain 06/02/2019 Memory loss pt didnt talk till she was 2-2.5. Aprexia Migraine Daily Recurrent UTI PAST OBSTETRICAL HISTORY: OB History 5 Para 2 Term 1 1 AB 2 Living 3 SAB 2 IAB 0 Ectopic 0 Multiple 1 Live Births 2 SURGICAL HISTORY: Past Surgical History: Procedure Laterality Date SECTION 12/12/2023 PRIMARY FOR FAILURE TO PROGRESS ALLERGIES: No Known Allergies CURRENT MEDICATIONS: Current Facility-Administered Medications: lactated ringers infusion, 250 mL/hr, intravenous, Continuous PRN, Lexus Byrd MD [id number] acid () 29 mg iron- 1 mg per chewable tablet 1 tablet, 1 tablet, oral, Daily, Lexus Byrd MD REVIEW OF SYSTEMS: Head and Neck: Negative for any dizziness and headaches. Cardiovascular and Respiratory System: Denies any chest pain, shortness of breath, and coughing. Abdominal and System: Denies any abdominal pain, nausea, vomiting, vaginal bleeding, and vaginal discharge Recent Results (from the past 48 hours) Acetaminophen level Collection Time: 09/18/24 4:55 PM Result Value Ref Range ACETAMINOPHEN 6.6 (L) 10.0 - 30.0 ug/mL Narrative Reference ranges are for therapeutic limits. CBC auto differential Collection Time: 09/18/24 4:55 PM Result Value Ref Range WBC 9.7 4 - 11 x10E9/L RBC Count 3.82 3.8 - 5.2 X10E12/L Hemoglobin 10.6 (L) 11.7 - 15.5 g/dL Hematocrit 30.8 (L) 35 - 47 % MCV 81 80 - 100 fL MCH 27.8 27 - 34 pg MCHC 34.5 32 - 36 g/dL RDW 14.1 11.5 - 15 % Platelet Count 221 150 - 450 X10E9/L MPV 8.3 7 - 12 fL Neutrophils Relative 80.6 % Lymphocytes Relative 15.0 % Monocytes Relative 4.0 % Eosinophils Relative 0.3 % Basophils Relative 0.1 % Neutrophils Absolute (A) 7.8 (H) 1.5 - 6.6 10*3/uL Lymphocytes Absolute 1.5 1.0 - 3.5 10*3/uL Monocytes Absolute 0.4 0.0 - 0.9 10*3/uL Eosinophils Absolute 0.0 0.0 - 0.4 10*3/uL Basophils Absolute 0.0 0.0 - 0.2 10*3/uL Differential Type AUTOMATED DIFFERENTIAL Comprehensive metabolic panel Collection Time: 09/18/24 4:55 PM Result Value Ref Range SODIUM 134 134 - 146 mmol/L POTASSIUM 3.5 3.5 - 5.0 mmol/L CHLORIDE 110 (H) 98 - 109 mmol/L CARBON DIOXIDE 20 (L) 22 - 32 mmol/L ANION GAP 4 (L) 5 - 15 mmol/L BLOOD UREA NITROGEN 6 5 - 23 mg/dL CREATININE 0.48 0.40 - 1.00 mg/dL GLUCOSE 87 65 - 99 mg/dL CALCIUM 7.9 (L) 8.5 - 10.5 mg/dL TOTAL PROTEIN 6.3 6.0 - 8.0 g/dL ALBUMIN 2.6 (L) 3.2 - 5.3 g/dL ALKALINE PHOSPHATASE 137 (H) 39 - 130 U/L AST 14 <=41 U/L ALT 9 <=31 U/L BILIRUBIN,TOTAL 0.6 0.3 - 1.2 mg/dL EGFR Non-Race Dependent >90 >=60 ml/min/1.73sq.m Ethanol Collection Time: 09/18/24 4:55 PM Result Value Ref Range ETHANOL <0.010 <=0.080 g/dL Salicylate level Collection Time: 09/18/24 4:55 PM Result Value Ref Range SALICYLATE <4.0 2.0 - 25.0 mg/dL Narrative Reference ranges are for therapeutic limits. Valproic acid, depakane Collection Time: 09/18/24 4:55 PM Result Value Ref Range VALPROIC ACID 11 (L) 50 - 100 ug/mL Iron and TIBC Collection Time: 09/18/24 4:55 PM Result Value Ref Range IRON 62 50 - 170 ug/dL TRANSFERRIN 400 (H) 168 - 336 mg/dL IRON BINDING 560 (H) 250 - 425 ug/dL IRON SATURATION 11 (L) 15 - 50 % SATURATION Extra Tubes Collection Time: 09/18/24 4:55 PM Narrative The following orders were created for panel order Extra Tubes. Procedure Abnormality Status --------- ------ Light Blue Top[[id number]] Final result Please view results for these tests on the individual orders. Light Blue Top Collection Time: 09/18/24 4:55 PM Result Value Ref Range Extra Tube Auto Resulted Ammonia Collection Time: 09/18/24 4:58 PM Result Value Ref Range AMMONIA 15 11 - 35 umol/L Drug Screen, Urine Collection Time: 09/18/24 6:52 PM Specimen: Urine, Clean Catch Midstream Result Value Ref Range AMPHETAMINE/METHAMP Negative Negative COCAINE METABOLITE Negative Negative ECSTASY Negative Negative METHADONE Negative Negative OPIATES Negative Negative OXYCODONE Negative Negative PHENCYCLIDINE Negative Negative CANNABINOIDS Negative Negative Urine Barbiturates Negative Negative BENZODIAZEPINES Negative Negative POCT Nursing Urine Macroscopic UA Collection Time: 09/18/24 7:24 PM Result Value Ref Range POC Urine Specific Shepherd 1.015 1.010, 1.015, 1.020, 1.025 POC Urine Leukocyte Esterase Moderate (A) Negative POC Urine Nitrite Negative Negative POC Urine pH 7.0 5.0, 6.0, 6.5, 7.0, 7.5, 8.0, 8.5, 5.5 POC Urine Protein Negative Negative POC Urine Glucose Negative Negative POC Urine Ketones 80 mg/dL (A) Negative POC Urine Urobilinogen 0.2 E.U./dL POC Urine Bilirubin Negative Negative POC Urine Blood/HGB Negative Negative CBC auto differential Collection Time: 09/19/24 2:49 AM Result Value Ref Range WBC 9.2 4 - 11 x10E9/L RBC Count 3.80 3.8 - 5.2 X10E12/L Hemoglobin 10.3 (L) 11.7 - 15.5 g/dL Hematocrit 30.4 (L) 35 - 47 % MCV 80 80 - 100 fL MCH 27.2 27 - 34 pg MCHC 34.0 32 - 36 g/dL RDW 13.6 11.5 - 15 % Platelet Count 231 150 - 450 X10E9/L MPV 8.4 7 - 12 fL Neutrophils Relative 74.9 % Lymphocytes Relative 20.2 % Monocytes Relative 4.3 % Eosinophils Relative 0.3 % Basophils Relative 0.3 % Neutrophils Absolute (A) 6.9 (H) 1.5 - 6.6 10*3/uL Lymphocytes Absolute 1.9 1.0 - 3.5 10*3/uL Monocytes Absolute 0.4 0.0 - 0.9 10*3/uL Eosinophils Absolute 0.0 0.0 - 0.4 10*3/uL Basophils Absolute 0.0 0.0 - 0.2 10*3/uL Differential Type AUTOMATED DIFFERENTIAL Comprehensive metabolic panel Collection Time: 09/19/24 2:49 AM Result Value Ref Range SODIUM 138 134 - 146 mmol/L POTASSIUM 3.5 3.5 - 5.0 mmol/L CHLORIDE 106 98 - 109 mmol/L CARBON DIOXIDE 25 22 - 32 mmol/L ANION GAP 7 5 - 15 mmol/L BLOOD UREA NITROGEN 5 5 - 23 mg/dL CREATININE 0.45 0.40 - 1.00 mg/dL GLUCOSE 96 65 - 99 mg/dL CALCIUM 8.1 (L) 8.5 - 10.5 mg/dL TOTAL PROTEIN 5.5 (L) 6.0 - 8.0 g/dL ALBUMIN 3.0 (L) 3.2 - 5.3 g/dL ALKALINE PHOSPHATASE 121 39 - 130 U/L AST 11 <=41 U/L ALT 5 <=31 U/L BILIRUBIN,TOTAL 0.4 0.3 - 1.2 mg/dL EGFR Non-Race Dependent >90 >=60 ml/min/1.73sq.m Ammonia Collection Time: 09/19/24 2:49 AM Result Value Ref Range AMMONIA 34 18 - 72 umol/L Valproic acid, depakane Collection Time: 09/19/24 2:49 AM Result Value Ref Range VALPROIC ACID 28 (L) 50 - 100 ug/mL PHYSICAL EXAMINATION: BP 115/66 Pulse 93 Temp 36.6 ??C (97.9 ??F) (Oral) Resp 12 LMP 02/16/2024 (Approximate) . Gravid abdomen, Respirations not labored. Well oriented time place person, normal gait RECOMMENDATION: 1. Continuous monitoring for 24 hours. 2. Appreciate psychiatry input. 3. Discharge planning after psychiatry has cleared the patient for outpatient management. 4. Regular OB diet. BRADY RICKETTS MD documented in this encounter Nursing Notes * Terrie Sosa RN - 09/22/2024 3:49 AM EDT RN attempted transfer of pt to [facility] 2nd floor [facility]. While attempting the RN was unable to find the 2nd floor as an option. She called the unit in which the patient was transferred to where the receiving RN stated they usually just have to patient discharged and not transferred. RN spoke with resident and to find an alternative. RN spoke with bed booking who stated they cannot help because they cannot break the glass. RN called who placed a discharge order to be able to move patient to [facility]. * Bonnie Adam RN - 09/22/2024 3:00 AM EDT [facility] transport here to get pt for transport to [facility]. Report given to EMS and updated report called to Brennon Byrd RN at [facility]. Pt cooperative with transport. No c/o voiced. * Bonnie Adam RN - 09/21/2024 9:00 PM EDT Transportation called in d/t pt not being picked up for transport yet. They said pt's new eta is between 11pm-12am. Firearms Inspector spoke with Helena Byrd RN from [facility] and pink slip faxed to [phone] d/t RN stating they hadn't received it yet. Pt updated on new eta along with Dr Hinson. * Colette Sheehan RN - 09/21/2024 1:58 PM EDT Pt refusing EFM at this time et FHTs. Pt states she wants to be left alone. RN states to patient jimmy RN know If she would like baby monitoring done later today, no response from patient. * Sara Olsen RN - 09/19/2024 2:[address] Rahman spoke with patient at beside of Plan of care to transfer her to Inpatient Psych at [facility]. Patient states that she does not want to go due to upcoming court date for custody of eugenia. She would like to see Psychiatrist here and the be discharged. Due to patient being pinkslipped , patient educated that she unfortunately does not have a choice but to go. Patient states that if she does not go today, staff will have to get security involved because she will not go. Dr Rahman going to speak with charge nurse in L&D to discuss further plan of care and will update RN. * Sara Olsen RN - 09/19/2024 12:00 PM EDT Patient refusing to have any additional labs drawn. * Bonnie Adam RN - 09/19/2024 12:00 AM EDT Pt c/o IV being painful in her right antecub. Dr Byrd asked if pt needed an IV and MD stated no,so IV was discontinued from right antecub with #20 cathlon removed intact. * Bonnie Adam RN - 09/18/2024 10:58 PM EDT Pt admitted to 337 and oriented to room,and POC. States does not feel suicidal at this time. Statesdid not take any Depakote earlier today. States just told FOB that because he has a new girlfriend and she was upset. Pt does admitted to being admitted into a psyche unit at age 17 d/t suicidal attempt which involved cutting , but that she doesn't do that anymore. States stopped going to counseling about 2 months ago. States her 3 older children ( 2 yo identical twin boys and 9 month old girl) were taken away by [employer] and they live with her aunt. Pt states she has no family or friends for support. States is adopted and that her adoptive family disowned her when she got at such an early age. Firearms Inspector offered support and reassurance. Pt to have a sitter 1:1 until it is discontinued by doctors. Pt denies having any discomfort. documented in this encounter Miscellaneous Notes * Plan of Care - Bonnie Adam RN - 09/21/2024 8:54 PM EDT Problem: Pain Goal: Patient goal is pain score less than 4, able to rest, and participant in treatment plan as appropriate Description: INTERVENTIONS: 1. Encourage patient or legal real estate representative to report early pain and ask for pain medicine when needed 2. Assess pain using appropriate pain scale and include the scale used when documenting 3. Administer analgesics based on type and severity of pain and evaluate response within appropriate time frame 4. Implement non-pharmacological measures as appropriate and evaluate response 5. Consider cultural and social influences on pain and pain management 6. Notify LIP if interventions ineffective or patient reports new pain 7. Monitor vital signs including pulse ox, end-tidal CO2 based on pain intervention 8. Reassess pain per policy 9. Teach patient or legal real estate representative interventions for comforting Outcome: Progressing Note: Evaluation of progress towards goal: Patient understands options for pain control, pain managed according to pain scale and provider /patient wishes. Additional Comments: * Discharge Planning Note - Courtney Mcarthur - 09/21/2024 4:54 PM EDT DISCHARGE PLANNING NOTE Confirmed BLS pick up driver for 8:00 pm From PTN P# Transportation to [[address] P[facility]] [id number] - - , [place], [address], Ext. * Plan of Care - Colette Sheehan RN - 09/21/2024 3:27 PM EDT Problem: Pain Goal: Patient goal is pain score less than 4, able to rest, and participant in treatment plan as appropriate Description: INTERVENTIONS: 1. Encourage patient or legal real estate representative to report early pain and ask for pain medicine when needed 2. Assess pain using appropriate pain scale and include the scale used when documenting 3. Administer analgesics based on type and severity of pain and evaluate response within appropriate time frame 4. Implement non-pharmacological measures as appropriate and evaluate response 5. Consider cultural and social influences on pain and pain management 6. Notify LIP if interventions ineffective or patient reports new pain 7. Monitor vital signs including pulse ox, end-tidal CO2 based on pain intervention 8. Reassess pain per policy 9. Teach patient or legal real estate representative interventions for comforting Outcome: Progressing Note: Evaluation of progress towards goal: denies pain Problem: Safety Goal: Patient will be injury free during hospitalization Description: INTERVENTIONS: 1. Assess patient's risk for falls and implement fall prevention plan of care per policy 2. Provide and maintain a safe environment 3. Proper use of double Identifiers 4. Medication administration using the 5 rights 5. Hand hygiene 6. Specimens are labeled at the bedside 7. Instruct patient/ patient real estate representative about use of safety devices 8. Include patient/ patient real estate representative in decisions related to safety Outcome: Progressing Note: Evaluation of progress towards goal: safety maintained, 1:1 sitter at bedside with patient Problem: Infection Goal: Absence of infection during hospitalization Description: INTERVENTIONS 1. Assess and monitor for signs and symptoms of infection. 2. Monitor lab/diagnostic results. 3. Monitor all insertion sites i.e., indwelling lines, tubes and drains. 4. Monitor endotracheal (as able) and nasal secretions for changes in amount and color. 5. Administer medications as ordered. 6. Instruct and encourage patient and family to use good hand hygiene technique. 7. Identify and instruct patient/patient real estate representative in use of appropriate isolation precautionsfor identified infection/symptoms. 8. Provide and discuss with patient/patient real estate representative on educational MDRO sheet. 9. Encourage and monitor nutritional status daily and consult food sanitarian if indicated. 10. Implement neutropenic guidelines as needed. Outcome: Progressing Note: Evaluation of progress towards goal: remains afebrile no ss infection Problem: Knowledge Deficit Goal: Patient/patient real estate representative demonstrates understanding of disease process, treatment plan,medications, and discharge instructions Description: INTERVENTIONS 1. Complete learning assessment and assess knowledge base 2. Provide teaching at level of understanding 3. Provide teaching via preferred learning method(s) Outcome: Progressing Note: Evaluation of progress towards goal: understands POC et ss to report to RN however Noncompliant with care and wants to be left alone Problem: Discharge Planning Goal: Discharge to post-acute care, other facility, or home with appropriate resources Description: Patient's goal is: INTERVENTIONS 1. Conduct assessment to determine patient/family and health care team treatment goals, and need for post-acute services based on payer coverage, community resources, and patient preferences, and barriers to discharge 2. Coordinate with Social work, Care Navigation, and Utilization Review to arrange appropriate level of services according to patient's needs based on patient preference and payer coverage in collaboration with the physician and health care team 3. Address psychosocial, clinical, and financial barriers to discharge as identified in assessment in conjunction with the patient/family and health care team 4. Consult appropriate ancillary services (i.e.. PT/OT/ST, etc) as needed 5. Communicate with and update the patient/family, physician, and health care team regarding progress on the discharge plan 6. Identify discharge learning needs (meds, wound care, etc). 7. Arrange for needed discharge transportation as appropriate Outcome: Progressing Note: Evaluation of progress towards goal: inpatient until bed available at [facility]. Patient is pink slip for suicide attempt Problem: Inadequate Coping Goal: Demonstrates and verbalizes ability to cope effectively Description: Patient's goal is: INTERVENTIONS 1. Patient is able to verbalize feelings related to emotional state 2. Encourage verbalization of feelings, perceptions, fears, stressors, loss of loved ones 3. Encourage verbalization of problems out of their control 4. Encourage participation in care and self management 5. Inform patient of all treatment/care prior to providing care 6. Collaborate with pastoral/spiritual care, social worker masters, mental health counselor as needed. 7. Instruct patient on diversional activities such as physical activity, distraction, and deep breathing exercises to assist with coping 8. Involve patient's real estate representative in care Outcome: Progressing Note: Evaluation of progress towards goal: pt noncompliant and immature. Problem: Potential for Suicide Goal: Remain free from self harm Description: INTERVENTIONS 1. Social Work consult 2. Notify physician for possible Psych consult 3. Assess suicide risk daily, with a change in condition or transfer to 4. Individualize plan of care 5. Ask family/caregiver if they have observed any suicidal preparations 6. Include patient/family/S.O. in decisions related to safety 7. Involve patient/family/S.O. in discharge planning process 8. Refer to community support groups 9. Collaborate with interdisciplinary team and initiate plan and interventions as ordered Outcome: Progressing Note: Evaluation of progress towards goal: free from self harm Problem: Moderate - High Risk Fall Score Description: Rachel Fall Score of =/> 25 [facility] Goal: Patient should be free from fall Description: Interventions: 1. [place] to environment 2. Hourly rounds addressing the 4 P's (Pain, Positioning, Possessions, Potty) 3. Clear area of hazards (spills, clutter, electrical cords, unnecessary equipment) 4. Place equipment (bed & TV controls, call light, phone, urinal) within reach 5. Encourage patient to wear glasses and hearing aides as appropriate 6. Maintain bed in lowest position 7. Lock wheels on bed/wheelchair 8. Provide adequate lighting, including night light 9. Assess need for additional bedding, food/fluids, pain med's prior to sleep/routinely 10. Provide gripper slippers or personal non-skid footwear 11. Teach patient and patient real estate representative to maintain environment for safety and engage in all aspects of fall prevention program 12. Remind patient to call for help before getting out of bed 13. Initiate bed/chair/exit alarms supportive devices as appropriate, (chair wedge, no-skid floor mat, raised edge mattress, hip protectors) 14. Locate patient bed assignment for optimal visualization 15. Evaluate and identify Safe Patient Handling Equipment needs 16. Provide supervision when out of bed or chair 17. Utilize gait belt as needed to assist with ambulation 18. Place adaptive equipment (cane, walker) within reach 19. Request patient real estate representative bring adaptive equipment/mobility aids from home or obtain and provide as needed 20. Consult pharmacy regarding effects of med's affecting mobility, cognition, and alternatives 21. Obtain physician order for PT if risk factors associated with mobility are present 22. Obtain physician order for OT as appropriate 23. Utilize diversional activities 24. Educate patient and patient real estate representative how to maintain a safe environment during visitationtimes (notify nurse prior to leaving bedside) 25. Consider appropriateness of medical or non-medical assistant cardiology 26. Set up voiding schedule as appropriate (every 2 hours) Outcome: Progressing Note: Evaluation of progress towards goal: no falls, safety maintained Problem: ANTEPARTUM Goal: Maintain as long as maternal and/or condition is stable Description: INTERVENTIONS 1. Maternal surveillance 2. surveillance 3. Monitor uterine activity 4. Medications as ordered 5. Bedrest Outcome: Progressing Note: Evaluation of progress towards goal: maintained Additional Comments: * Psychiatric Progress Note - DOTTIE Fisher - 09/21/2024 1:59 PM EDT Greeted patient, introduced self and explained role as medical psychotherapist/liaison. Followed up on her transfer to [facility] once a bed opens up. Patient voiced understanding though expressed worry that she will miss an upcoming court hearing scheduled for Saturday. Cautioned patient that she may not be able to make that hearing and wondered if she should try to have this hearing rescheduled. SW offered to provide any documentation showing patient's current inpatient status. Patient stated she would follow up. Will monitor, continue to assist in the transfer of patient to [facility]. - DOTTIE Fisher 09/21/24 3:04 PM * Plan of Care - Ana Maria Mars RN - 09/20/2024 8:25 PM EDT Problem: Pain Goal: Patient goal is pain score less than 4, able to rest, and participant in treatment plan as appropriate Description: INTERVENTIONS: 1. Encourage patient or legal real estate representative to report early pain and ask for pain medicine when needed 2. Assess pain using appropriate pain scale and include the scale used when documenting 3. Administer analgesics based on type and severity of pain and evaluate response within appropriate time frame 4. Implement non-pharmacological measures as appropriate and evaluate response 5. Consider cultural and social influences on pain and pain management 6. Notify LIP if interventions ineffective or patient reports new pain 7. Monitor vital signs including pulse ox, end-tidal CO2 based on pain intervention 8. Reassess pain per policy 9. Teach patient or legal real estate representative interventions for comforting Outcome: Progressing Note: Evaluation of progress towards goal: Patient verbalizes tolerable pain level, pain medicationgiven as needed Problem: Safety Goal: Patient will be injury free during hospitalization Description: INTERVENTIONS: 1. Assess patient's risk for falls and implement fall prevention plan of care per policy 2. Provide and maintain a safe environment 3. Proper use of double Identifiers 4. Medication administration using the 5 rights 5. Hand hygiene 6. Specimens are labeled at the bedside 7. Instruct patient/ patient real estate representative about use of safety devices 8. Include patient/ patient real estate representative in decisions related to safety Outcome: Progressing Note: Evaluation of progress towards goal: Safety maintained, fall prevention plan implemented. Problem: Infection Goal: Absence of infection during hospitalization Description: INTERVENTIONS 1. Assess and monitor for signs and symptoms of infection. 2. Monitor lab/diagnostic results. 3. Monitor all insertion sites i.e., indwelling lines, tubes and drains. 4. Monitor endotracheal (as able) and nasal secretions for changes in amount and color. 5. Administer medications as ordered. 6. Instruct and encourage patient and family to use good hand hygiene technique. 7. Identify and instruct patient/patient real estate representative in use of appropriate isolation precautionsfor identified infection/symptoms. 8. Provide and discuss with patient/patient real estate representative on educational MDRO sheet. 9. Encourage and monitor nutritional status daily and consult food sanitarian if indicated. 10. Implement neutropenic guidelines as needed. Outcome: Progressing Note: Evaluation of progress towards goal: No s/s of infection noted, temperature WNL Problem: Knowledge Deficit Goal: Patient/patient real estate representative demonstrates understanding of disease process, treatment plan,medications, and discharge instructions Description: INTERVENTIONS 1. Complete learning assessment and assess knowledge base 2. Provide teaching at level of understanding 3. Provide teaching via preferred learning method(s) Outcome: Progressing Note: Evaluation of progress towards goal: Teaching provided as needed at patients level of understanding Problem: Discharge Planning Goal: Discharge to post-acute care, other facility, or home with appropriate resources Description: Patient's goal is: INTERVENTIONS 1. Conduct assessment to determine patient/family and health care team treatment goals, and need for post-acute services based on payer coverage, community resources, and patient preferences, and barriers to discharge 2. Coordinate with Social work, Care Navigation, and Utilization Review to arrange appropriate level of services according to patient's needs based on patient preference and payer coverage in collaboration with the physician and health care team 3. Address psychosocial, clinical, and financial barriers to discharge as identified in assessment in conjunction with the patient/family and health care team 4. Consult appropriate ancillary services (i.e.. PT/OT/ST, etc) as needed 5. Communicate with and update the patient/family, physician, and health care team regarding progress on the discharge plan 6. Identify discharge learning needs (meds, wound care, etc). 7. Arrange for needed discharge transportation as appropriate Outcome: Progressing Note: Evaluation of progress towards goal: Planning to transfer to [facility] when bed available Problem: Inadequate Coping Goal: Demonstrates and verbalizes ability to cope effectively Description: Patient's goal is: INTERVENTIONS 1. Patient is able to verbalize feelings related to emotional state 2. Encourage verbalization of feelings, perceptions, fears, stressors, loss of loved ones 3. Encourage verbalization of problems out of their control 4. Encourage participation in care and self management 5. Inform patient of all treatment/care prior to providing care 6. Collaborate with pastoral/spiritual care, social worker masters, mental health counselor as needed. 7. Instruct patient on diversional activities such as physical activity, distraction, and deep breathing exercises to assist with coping 8. Involve patient's real estate representative in care Outcome: Progressing Note: Evaluation of progress towards goal: Flat affect, able to express physical needs Problem: Potential for Suicide Goal: Remain free from self harm Description: INTERVENTIONS 1. Social Work consult 2. Notify physician for possible Psych consult 3. Assess suicide risk daily, with a change in condition or transfer to 4. Individualize plan of care 5. Ask family/caregiver if they have observed any suicidal preparations 6. Include patient/family/S.O. in decisions related to safety 7. Involve patient/family/S.O. in discharge planning process 8. Refer to community support groups 9. Collaborate with interdisciplinary team and initiate plan and interventions as ordered Outcome: Progressing Note: Evaluation of progress towards goal: Free from harm, sitter at bedside Problem: Moderate - High Risk Fall Score Description: Rachel Fall [facility] of =/> 25 [facility] Goal: Patient should be free from fall Description: Interventions: 1. [place] to environment 2. Hourly rounds addressing the 4 P's (Pain, Positioning, Possessions, Potty) 3. Clear area of hazards (spills, clutter, electrical cords, unnecessary equipment) 4. Place equipment (bed & TV controls, call light, phone, urinal) within reach 5. Encourage patient to wear glasses and hearing aides as appropriate 6. Maintain bed in lowest position 7. Lock wheels on bed/wheelchair 8. Provide adequate lighting, including night light 9. Assess need for additional bedding, food/fluids, pain med's prior to sleep/routinely 10. Provide gripper slippers or personal non-skid footwear 11. Teach patient and patient real estate representative to maintain environment for safety and engage in all aspects of fall prevention program 12. Remind patient to call for help before getting out of bed 13. Initiate bed/chair/exit alarms supportive devices as appropriate, (chair wedge, no-skid floor mat, raised edge mattress, hip protectors) 14. Locate patient bed assignment for optimal visualization 15. Evaluate and identify Safe Patient Handling Equipment needs 16. Provide supervision when out of bed or chair 17. Utilize gait belt as needed to assist with ambulation 18. Place adaptive equipment (cane, walker) within reach 19. Request patient real estate representative bring adaptive equipment/mobility aids from home or obtain and provide as needed 20. Consult pharmacy regarding effects of med's affecting mobility, cognition, and alternatives 21. Obtain physician order for PT if risk factors associated with mobility are present 22. Obtain physician order for OT as appropriate 23. Utilize diversional activities 24. Educate patient and patient real estate representative how to maintain a safe environment during visitationtimes (notify nurse prior to leaving bedside) 25. Consider appropriateness of medical or non-medical assistant cardiology 26. Set up voiding schedule as appropriate (every 2 hours) Outcome: Progressing Note: Evaluation of progress towards goal: Fall risk prevention plan implemented, safety maintained Problem: ANTEPARTUM Goal: Maintain as long as maternal and/or condition is stable Description: INTERVENTIONS 1. Maternal surveillance 2. surveillance 3. Monitor uterine activity 4. Medications as ordered 5. Bedrest Outcome: Progressing Note: Evaluation of progress towards goal: maintained Additional Comments: * Plan of Care - Daina Avila RN - 09/20/2024 2:17 PM EDT Problem: Pain Goal: Patient goal is pain score less than 4, able to rest, and participant in treatment plan as appropriate Description: INTERVENTIONS: 1. Encourage patient or legal real estate representative to report early pain and ask for pain medicine when needed 2. Assess pain using appropriate pain scale and include the scale used when documenting 3. Administer analgesics based on type and severity of pain and evaluate response within appropriate time frame 4. Implement non-pharmacological measures as appropriate and evaluate response 5. Consider cultural and social influences on pain and pain management 6. Notify LIP if interventions ineffective or patient reports new pain 7. Monitor vital signs including pulse ox, end-tidal CO2 based on pain intervention 8. Reassess pain per policy 9. Teach patient or legal real estate representative interventions for comforting Outcome: Progressing Note: Evaluation of progress towards goal: Patient verbalizes tolerable level of pain at this time.Pain medications will be given as needed. Problem: Safety Goal: Patient will be injury free during hospitalization Description: INTERVENTIONS: 1. Assess patient's risk for falls and implement fall prevention plan of care per policy 2. Provide and maintain a safe environment 3. Proper use of double Identifiers 4. Medication administration using the 5 rights 5. Hand hygiene 6. Specimens are labeled at the bedside 7. Instruct patient/ patient real estate representative about use of safety devices 8. Include patient/ patient real estate representative in decisions related to safety Outcome: Progressing Note: Evaluation of progress towards goal: Safe environment maintained. Medications administered using 5 rights. Fall prevention plan implemented as needed. Problem: Infection Goal: Absence of infection during hospitalization Description: INTERVENTIONS 1. Assess and monitor for signs and symptoms of infection. 2. Monitor lab/diagnostic results. 3. Monitor all insertion sites i.e., indwelling lines, tubes and drains. 4. Monitor endotracheal (as able) and nasal secretions for changes in amount and color. 5. Administer medications as ordered. 6. Instruct and encourage patient and family to use good hand hygiene technique. 7. Identify and instruct patient/patient real estate representative in use of appropriate isolation precautionsfor identified infection/symptoms. 8. Provide and discuss with patient/patient real estate representative on educational MDRO sheet. 9. Encourage and monitor nutritional status daily and consult food sanitarian if indicated. 10. Implement neutropenic guidelines as needed. Outcome: Progressing Note: Evaluation of progress towards goal: Patient is free from signs and symptoms of infection. Problem: Knowledge Deficit Goal: Patient/patient real estate representative demonstrates understanding of disease process, treatment plan,medications, and discharge instructions Description: INTERVENTIONS 1. Complete learning assessment and assess knowledge base 2. Provide teaching at level of understanding 3. Provide teaching via preferred learning method(s) Outcome: Progressing Note: Evaluation of progress towards goal: Teaching provided as needed at patient's level of understanding. Problem: Discharge Planning Goal: Discharge to post-acute care, other facility, or home with appropriate resources Description: Patient's goal is: INTERVENTIONS 1. Conduct assessment to determine patient/family and health care team treatment goals, and need for post-acute services based on payer coverage, community resources, and patient preferences, and barriers to discharge 2. Coordinate with Social work, Care Navigation, and Utilization Review to arrange appropriate level of services according to patient's needs based on patient preference and payer coverage in collaboration with the physician and health care team 3. Address psychosocial, clinical, and financial barriers to discharge as identified in assessment in conjunction with the patient/family and health care team 4. Consult appropriate ancillary services (i.e.. PT/OT/ST, etc) as needed 5. Communicate with and update the patient/family, physician, and health care team regarding progress on the discharge plan 6. Identify discharge learning needs (meds, wound care, etc). 7. Arrange for needed discharge transportation as appropriate Outcome: Progressing Note: Evaluation of progress towards goal: Appropriate consults done as needed. Discharge learning needs identified. Problem: Inadequate Coping Goal: Demonstrates and verbalizes ability to cope effectively Description: Patient's goal is: INTERVENTIONS 1. Patient is able to verbalize feelings related to emotional state 2. Encourage verbalization of feelings, perceptions, fears, stressors, loss of loved ones 3. Encourage verbalization of problems out of their control 4. Encourage participation in care and self management 5. Inform patient of all treatment/care prior to providing care 6. Collaborate with pastoral/spiritual care, social worker masters, mental health counselor as needed. 7. Instruct patient on diversional activities such as physical activity, distraction, and deep breathing exercises to assist with coping 8. Involve patient's real estate representative in care Outcome: Progressing Note: Evaluation of progress towards goal: Problem: Potential for Suicide Goal: Remain free from self harm Description: INTERVENTIONS 1. Social Work consult 2. Notify physician for possible Psych consult 3. Assess suicide risk daily, with a change in condition or transfer to 4. Individualize plan of care 5. Ask family/caregiver if they have observed any suicidal preparations 6. Include patient/family/S.O. in decisions related to safety 7. Involve patient/family/S.O. in discharge planning process 8. Refer to community support groups 9. Collaborate with interdisciplinary team and initiate plan and interventions as ordered Outcome: Progressing Note: Evaluation of progress towards goal: Problem: Moderate - High Risk Fall Score Description: Rachel Fall Score of =/> 25 or indicated by [facility] Assessment Goal: Patient should be free from fall Description: Interventions: 1. [place] to environment 2. Hourly rounds addressing the 4 P's (Pain, Positioning, Possessions, Potty) 3. Clear area of hazards (spills, clutter, electrical cords, unnecessary equipment) 4. Place equipment (bed & TV controls, call light, phone, urinal) within reach 5. Encourage patient to wear glasses and hearing aides as appropriate 6. Maintain bed in lowest position 7. Lock wheels on bed/wheelchair 8. Provide adequate lighting, including night light 9. Assess need for additional bedding, food/fluids, pain med's prior to sleep/routinely 10. Provide gripper slippers or personal non-skid footwear 11. Teach patient and patient real estate representative to maintain environment for safety and engage in all aspects of fall prevention program 12. Remind patient to call for help before getting out of bed 13. Initiate bed/chair/exit alarms supportive devices as appropriate, (chair wedge, no-skid floor mat, raised edge mattress, hip protectors) 14. Locate patient bed assignment for optimal visualization 15. Evaluate and identify Safe Patient Handling Equipment needs 16. Provide supervision when out of bed or chair 17. Utilize gait belt as needed to assist with ambulation 18. Place adaptive equipment (cane, walker) within reach 19. Request patient real estate representative bring adaptive equipment/mobility aids from home or obtain and provide as needed 20. Consult pharmacy regarding effects of med's affecting mobility, cognition, and alternatives 21. Obtain physician order for PT if risk factors associated with mobility are present 22. Obtain physician order for OT as appropriate 23. Utilize diversional activities 24. Educate patient and patient real estate representative how to maintain a safe environment during visitationtimes (notify nurse prior to leaving bedside) 25. Consider appropriateness of medical or non-medical assistant cardiology 26. Set up voiding schedule as appropriate (every 2 hours) Outcome: Progressing Note: Evaluation of progress towards goal: Patient understands fall prevention plan. Problem: ANTEPARTUM Goal: Maintain as long as maternal and/or condition is stable Description: INTERVENTIONS 1. Maternal surveillance 2. surveillance 3. Monitor uterine activity 4. Medications as ordered 5. Bedrest Outcome: Progressing Note: Evaluation of progress towards goal: Additional Comments: * Plan of Care - Allyson Valencia RN - 09/19/2024 9:26 PM EDT Problem: Pain Goal: Patient goal is pain score less than 4, able to rest, and participant in treatment plan as appropriate Description: INTERVENTIONS: 1. Encourage patient or legal real estate representative to report early pain and ask for pain medicine when needed 2. Assess pain using appropriate pain scale and include the scale used when documenting 3. Administer analgesics based on type and severity of pain and evaluate response within appropriate time frame 4. Implement non-pharmacological measures as appropriate and evaluate response 5. Consider cultural and social influences on pain and pain management 6. Notify LIP if interventions ineffective or patient reports new pain 7. Monitor vital signs including pulse ox, end-tidal CO2 based on pain intervention 8. Reassess pain per policy 9. Teach patient or legal real estate representative interventions for comforting Outcome: Progressing Note: Evaluation of progress towards goal: Patient verbalizes tolerable level of pain at this time.Pain medications will be given as needed. Problem: Safety Goal: Patient will be injury free during hospitalization Description: INTERVENTIONS: 1. Assess patient's risk for falls and implement fall prevention plan of care per policy 2. Provide and maintain a safe environment 3. Proper use of double Identifiers 4. Medication administration using the 5 rights 5. Hand hygiene 6. Specimens are labeled at the bedside 7. Instruct patient/ patient real estate representative about use of safety devices 8. Include patient/ patient real estate representative in decisions related to safety Outcome: Progressing Note: Evaluation of progress towards goal: Safe environment maintained. Medications administered using 5 rights. Fall prevention plan implemented as needed. Suicide prevention precautions in place with sitter continuously at the bedside. Problem: Infection Goal: Absence of infection during hospitalization Description: INTERVENTIONS 1. Assess and monitor for signs and symptoms of infection. 2. Monitor lab/diagnostic results. 3. Monitor all insertion sites i.e., indwelling lines, tubes and drains. 4. Monitor endotracheal (as able) and nasal secretions for changes in amount and color. 5. Administer medications as ordered. 6. Instruct and encourage patient and family to use good hand hygiene technique. 7. Identify and instruct patient/patient real estate representative in use of appropriate isolation precautionsfor identified infection/symptoms. 8. Provide and discuss with patient/patient real estate representative on educational MDRO sheet. 9. Encourage and monitor nutritional status daily and consult food sanitarian if indicated. 10. Implement neutropenic guidelines as needed. Outcome: Progressing Note: Evaluation of progress towards goal: Patient is free from signs and symptoms of infection. Problem: Knowledge Deficit Goal: Patient/patient real estate representative demonstrates understanding of disease process, treatment plan,medications, and discharge instructions Description: INTERVENTIONS 1. Complete learning assessment and assess knowledge base 2. Provide teaching at level of understanding 3. Provide teaching via preferred learning method(s) Outcome: Progressing Note: Evaluation of progress towards goal: Teaching provided as needed at patient's level of understanding. Problem: Discharge Planning Goal: Discharge to post-acute care, other facility, or home with appropriate resources Description: Patient's goal is: INTERVENTIONS 1. Conduct assessment to determine patient/family and health care team treatment goals, and need for post-acute services based on payer coverage, community resources, and patient preferences, and barriers to discharge 2. Coordinate with Social work, Care Navigation, and Utilization Review to arrange appropriate level of services according to patient's needs based on patient preference and payer coverage in collaboration with the physician and health care team 3. Address psychosocial, clinical, and financial barriers to discharge as identified in assessment in conjunction with the patient/family and health care team 4. Consult appropriate ancillary services (i.e.. PT/OT/ST, etc) as needed 5. Communicate with and update the patient/family, physician, and health care team regarding progress on the discharge plan 6. Identify discharge learning needs (meds, wound care, etc). 7. Arrange for needed discharge transportation as appropriate Outcome: Progressing Note: Evaluation of progress towards goal: Appropriate consults done as needed. Discharge learning needs identified. Problem: Inadequate Coping Goal: Demonstrates and verbalizes ability to cope effectively Description: Patient's goal is: INTERVENTIONS 1. Patient is able to verbalize feelings related to emotional state 2. Encourage verbalization of feelings, perceptions, fears, stressors, loss of loved ones 3. Encourage verbalization of problems out of their control 4. Encourage participation in care and self management 5. Inform patient of all treatment/care prior to providing care 6. Collaborate with pastoral/spiritual care, social worker masters, mental health counselor as needed. 7. Instruct patient on diversional activities such as physical activity, distraction, and deep breathing exercises to assist with coping 8. Involve patient's real estate representative in care Outcome: Progressing Note: Evaluation of progress towards goal: Pt demonstrates and verbalizes ability to cope effectively at this time. Verbalizes needs and is cooperative with treatment. Problem: Potential for Suicide Goal: Remain free from self harm Description: INTERVENTIONS 1. Social Work consult 2. Notify physician for possible Psych consult 3. Assess suicide risk daily, with a change in condition or transfer to 4. Individualize plan of care 5. Ask family/caregiver if they have observed any suicidal preparations 6. Include patient/family/S.O. in decisions related to safety 7. Involve patient/family/S.O. in discharge planning process 8. Refer to community support groups 9. Collaborate with interdisciplinary team and initiate plan and interventions as ordered Outcome: Progressing Note: Evaluation of progress towards goal: Patient is free of self harm at this time. Problem: Moderate - High Risk Fall Score Description: Rachel Fall Score of =/> 25 or indicated by [facility] Assessment Goal: Patient should be free from fall Description: Interventions: 1. [place] to environment 2. Hourly rounds addressing the 4 P's (Pain, Positioning, Possessions, Potty) 3. Clear area of hazards (spills, clutter, electrical cords, unnecessary equipment) 4. Place equipment (bed & TV controls, call light, phone, urinal) within reach 5. Encourage patient to wear glasses and hearing aides as appropriate 6. Maintain bed in lowest position 7. Lock wheels on bed/wheelchair 8. Provide adequate lighting, including night light 9. Assess need for additional bedding, food/fluids, pain med's prior to sleep/routinely 10. Provide gripper slippers or personal non-skid footwear 11. Teach patient and patient real estate representative to maintain environment for safety and engage in all aspects of fall prevention program 12. Remind patient to call for help before getting out of bed 13. Initiate bed/chair/exit alarms supportive devices as appropriate, (chair wedge, no-skid floor mat, raised edge mattress, hip protectors) 14. Locate patient bed assignment for optimal visualization 15. Evaluate and identify Safe Patient Handling Equipment needs 16. Provide supervision when out of bed or chair 17. Utilize gait belt as needed to assist with ambulation 18. Place adaptive equipment (cane, walker) within reach 19. Request patient real estate representative bring adaptive equipment/mobility aids from home or obtain and provide as needed 20. Consult pharmacy regarding effects of med's affecting mobility, cognition, and alternatives 21. Obtain physician order for PT if risk factors associated with mobility are present 22. Obtain physician order for OT as appropriate 23. Utilize diversional activities 24. Educate patient and patient real estate representative how to maintain a safe environment during visitationtimes (notify nurse prior to leaving bedside) 25. Consider appropriateness of medical or non-medical assistant cardiology 26. Set up voiding schedule as appropriate (every 2 hours) Outcome: Progressing Note: Evaluation of progress towards goal: Patient understands fall prevention plan. Problem: ANTEPARTUM Goal: Maintain as long as maternal and/or condition is stable Description: INTERVENTIONS 1. Maternal surveillance 2. surveillance 3. Monitor uterine activity 4. Medications as ordered 5. Bedrest Outcome: Progressing Note: Evaluation of progress towards goal: is maintained at this time. Additional Comments: * Discharge Planning Note - Uri Lantigua LCSW - 09/19/2024 4:16 PM EDT SOCIAL WORK NOTE SW met with pt at bedside to follow-up on consult for Suicide attempt. Pt reports she was in therapy through [facility] but she stopped about a month ago due to her work schedule conflicting with the therapist availability. She reports she plans to call and reengage on Saturday. Pt reports she is concerned about missing her custody court hearing on Saturday at 10 in [facility]. She states she was able to attend virtually in the past but this hearing she was told has miladys in-person. Pt reports she has reached out to her deputy prosecuting attorney a requested a return phone call to update her and receive guidance. * Plan of Care - Rosangela Rahman DO - 09/19/2024 3:[address] Guillermo Davenport MD that there is not currently a bed available at the [facility] in patient psychiatry unit. He states that it is reasonable to keep the patient on the wait list and continue to provide care at [facility] until a bed is available. He has no additional recommendations regarding her care while she remains admitted to our service. Rosangela Rahmna DO Technician Test Systems Resident PGY-4 * Plan of Care - Sara Olsen RN - 09/19/2024 3:05 PM EDT Problem: Pain Goal: Patient goal is pain score less than 4, able to rest, and participant in treatment plan as appropriate Description: INTERVENTIONS: 1. Encourage patient or legal real estate representative to report early pain and ask for pain medicine when needed 2. Assess pain using appropriate pain scale and include the scale used when documenting 3. Administer analgesics based on type and severity of pain and evaluate response within appropriate time frame 4. Implement non-pharmacological measures as appropriate and evaluate response 5. Consider cultural and social influences on pain and pain management 6. Notify LIP if interventions ineffective or patient reports new pain 7. Monitor vital signs including pulse ox, end-tidal CO2 based on pain intervention 8. Reassess pain per policy 9. Teach patient or legal real estate representative interventions for comforting Outcome: Progressing Note: Evaluation of progress towards goal: Patient verbalizes tolerable level of pain at this time.Pain medications will be given as needed. Additional Comments: * Plan of Care - Rosangela Rahman DO - 09/19/2024 2:30 PM EDT Spoke with educational assistant psychiatrist, Dr. Guillermo Davenport MD about this patient's case. He recommended to pink slip the patient and initiate transport to [facility] for inpatient psychiatric care. [place] slip filled out and transport order placed. Plan of care discussed with the patient. She reports that she will not comply with the transport asshe needs to be at a court date for custody of her children on Saturday. Discussed with patient that this is not an optional transport and this plan is being put in place for her safety. Will continue to keep sitter at bedside while initiating transport. Rosangela Rahman DO Technician Test Systems Resident PGY-4 * Plan of Care - Rosangela Rahman DO - 09/19/2024 1:25 PM EDT Spoke with educational assistant psychiatrist, Dr. Guillermo Davenport MD about this patient's case. He recommended to pink slip the patient and initiate transport to [facility] for inpatient psychiatric care. [place] slip filled out and transport order placed. Plan of care discussed with the patient. She reports that she will not comply with the transport asshe needs to be at a court date for custody of her children on Saturday. Discussed with patient that this is not an optional transport and this plan is being put in place for her safety. Will continue to keep sitter at bedside while initiating transport. Rosangela Rahman DO Technician Test Systems Resident PGY-4 * Plan of Care - Bonnie Adam RN - 09/19/2024 2:31 AM EDT Problem: Pain Goal: Patient goal is pain score less than 4, able to rest, and participant in treatment plan as appropriate Description: INTERVENTIONS: 1. Encourage patient or legal real estate representative to report early pain and ask for pain medicine when needed 2. Assess pain using appropriate pain scale and include the scale used when documenting 3. Administer analgesics based on type and severity of pain and evaluate response within appropriate time frame 4. Implement non-pharmacological measures as appropriate and evaluate response 5. Consider cultural and social influences on pain and pain management 6. Notify LIP if interventions ineffective or patient reports new pain 7. Monitor vital signs including pulse ox, end-tidal CO2 based on pain intervention 8. Reassess pain per policy 9. Teach patient or legal real estate representative interventions for comforting Outcome: Progressing Note: Evaluation of progress towards goal: Patient understands options for pain control, pain managed according to pain scale and provider /patient wishes. Additional Comments: documented in this encounter Plan of Treatment [...] Procedure Name Priority Date/Time Associated Diagnosis Comments [facility] COMPREHENSIVE ANATOMIC SURVEY Routine 09/21/2024 11:04 AM EDT VALPROIC ACID DEPAKANE Routine 9:04 PM EDT AMMONIA Routine 09/19/2024 9:04 PM EDT VALPROIC ACID [place] Routine 2:49 AM EDT SYPHILIS TOTAL(UNKNOWN SYPHILIS STATUS) STAT 09/19/2024 2:49 AM EDT CBC WITH AUTO DIFFERENTIAL STAT 09/19/2024 2:49 AM EDT AMMONIA Routine 09/19/2024 2:49 AM EDT COMPREHENSIVE METABOLIC PANEL STAT 09/19/2024 2:49 AM EDT documented in this encounter Results * [facility] COMPREHENSIVE ANATOMIC SURVEY (09/21/2024 11:04 AM EDT) Anatomical Region Laterality Modality OB-MEXICAN FOOD MACHINE TENDER Ultrasound 09/21/2024 10:3 2 AM EDT Narrative 09/21/2024 11:43 AM EDT NAME: SALTY SANCHEZ : 2000 SEX: F Accession Number: [id number] ORDERING PHYSICIAN: SONJA COLEMAN REFERRING PHYSICIAN: ZHANE NORWOOD Coding ----- --------- Procedures [id number]: Ultrasound, uterus, real time with image documentation, and maternal evaluation plus detailed anatomic examination, transabdominal approach;single or first gestation STAT ----- --------- Patient Location: Inpatient Indication ----- --------- Screening for Anatomic Survey, Previous , Obesity in , Supervision of high risk . History ----- --------- OB History 5. Para 2 [id number] Maternal Assessment ----- --------- Physical Exam Height 155 cm, 5 ft 1 in. Weight 79 kg, 175 lb. Initial weight 79 kg, 175 lb. BMI 33.07 kg/m . Initial BMI 33.07 kg/m . Weight gain 0 kg, 0 lb Method ----- --------- Transabdominal ultrasound examination. View: Suboptimal view: limited by position and late gestational age. ----- --------- Medrano . Number of fetuses: 1 Dating ----- --------- LMP on: 02/16/2024 GA by LMP 31 w + 1 d KARTIK by LMP: 11/22/2024 Previous Ultrasound on: 05/15/2024 Type of prior assessment: GA GA at prior assessment date 12 w + 3 d GA by previous U/S 30 w + 6 d KARTIK by previous Ultrasound: 11/24/2024 Ultrasound examination on: 09/21/2024 GA by U/S based upon: AC, BPD, Femur, HC GA by U/S 30 w + 3 d KARTIK by U/S: 11/27/2024 Assigned: based on ultrasound (GA), selected on 09/21/2024 Assigned GA 30 w + 6 d Assigned KARTIK: 11/24/2024 General Evaluation ----- --------- Cardiac activity Present. FHR 146 bpm. movements: visualized. Presentation: cephalic Placenta: Placental site: posterior, away from cervical os Umbilical cord: Cord vessels: 3 vessel cord. Insertion site: normal insertion Amniotic fluid: Amount of AF: normal amount. MVP 4.8 cm Biometry ----- --------- Standard BPD 76.5 mm 30w 5d 33% Hadlock OFD 94.2 mm 30w 3d 37% Rand HC 271.2 mm 29w 4d 2% Hadlock Cerebellum tr 37.4 mm 30w 5d 26% Hill AC 269.6 mm 31w 0d 52% Hadlock Femur 57.8 mm 30w 2d 20% Hadlock Humerus 52.8 mm 30w 5d 51% Rand HC / AC 1.01 EFW 1,608 g 31% Hadlock EFW (lb) 3 lb EFW (oz) 9 oz EFW by: Hadlock ([id number]) Extended Tibia 51.5 mm 30w 5d 47% Rand Pick Up Man 4.5 mm CM 4.8 mm 3% Nicolaides Head / Face / Neck Cephalic index 0.81 69% Nicolaides Nasal bone: present Extremities / Bony Struc FL / BPD 0.76 FL / HC 0.21 FL / AC 0.21 Other Structures FHR 146 bpm Anatomy ----- --------- The following structures appear normal: Head/Neck: Cranium. Lateral ventricles. Choroid plexus. Midline falx. Cavum septi pellucidi. Cerebellum. Cisterna magna. Parenchyma. Vermis. Face: Lips. Nose. Nasal bone. Heart/Thorax: Situs. Bicaval view. Cardiac rhythm. Right lung. Left lung. Abdomen: Abdom. wall. Cord insertion. Stomach. Kidneys. Bladder. Small bowel. Large bowel. Genitals. Extremities/Skeleton: Right upper arm. Right upper leg. Right lower leg. Right foot. Left upper leg. Left lower leg. Skeleton The following structures could not be adequately visualized: Heart / Thorax 4-chamber view. 3-vessel view. Interventricular septum. Cardiac position. Cardiac axis. Cardiac size. Diaphragm. Spine: Cervical spine. Thoracic spine. Lumbar spine. Sacral spine. Extremities / Left hand. Skeleton The following structures could not be examined: Head / Neck Neck. Face Profile. Maxilla. Mandible. Orbits. Heart / Thorax RVOT view. LVOT view. 5-kauzgu-jcfsrwe view. Aortic arch view. Ductal arch view. Great vessels. Abdomen Right renal artery. Left renal artery. Extremities / Right forearm. Right hand. Left upper arm. Left forearm. Left foot. Skeleton Maternal Structures ----- --------- Uterus Visualized Cervix Suboptimal Right Ovary Not visualized Left Ovary Not visualized Cul de Sac Suboptimal Impression ----- --------- Single viable intrauterine consistent with 30w 6d with an KARTIK of 11/24/2024. Amniotic fluid MVP measures 4.8 cm. Recommendations ----- --------- Subsequent follow up or other follow up as clinically determined by primary OB provider unless otherwise specified by M. Results forwarded to ordering provider so they can follow up with the patient as necessary. Procedure Note Brady Ricketts MD - 09/21/2024 NAME: SALTY SANCHEZ : 2000 SEX: F Accession Number: [id number] ORDERING PHYSICIAN: SONJA COLEMAN REFERRING PHYSICIAN: ZHANE NORWOOD Coding ----- --------- Procedures [id number]: Ultrasound, uterus, real time with imagedocumentation, and maternal evaluation plus detailed anatomic examination, transabdominalapproach;single or first gestation STAT ----- --------- Patient Location: Inpatient Indication ----- --------- Screening for Anatomic Survey, Previous , Obesity in ,Supervision of high risk . History ----- --------- OB History 5. Para 2 [id number] Maternal Assessment ----- --------- Physical Exam Height 155 cm, 5 ft 1 in. Weight 79 kg, 175 lb. Initialweight 79 kg, 175 lb. BMI 33.07 kg/m . Initial BMI 33.07 kg/m . Weight gain 0 kg, 0 lb Method ----- --------- Transabdominal ultrasound examination. View: Suboptimal view: limited byfetal position and late gestational age. ----- --------- Medrano . Number of fetuses: 1 Dating ----- --------- LMP on: 02/16/2024 GA by LMP 31 w + 1 d KARTIK by LMP: 11/22/2024 Previous Ultrasound on: 05/15/2024 Type of prior assessment: GA GA at prior assessment date 12 w + 3 d GA by previous U/S 30 w + 6 d KARTIK by previous Ultrasound: 11/24/2024 Ultrasound examination on: 09/21/2024 GA by U/S based upon: AC, BPD, Femur, HC GA by U/S 30 w + 3 d KARTIK by U/S: 11/27/2024 Assigned: based on ultrasound (GA), selected on 09/21/2024 Assigned GA 30 w + 6 d Assigned KARTIK: 11/24/2024 General Evaluation ----- --------- Cardiac activity Present. FHR 146 bpm. movements: visualized.Presentation: cephalic Placenta: Placental site: posterior, away from cervical os Umbilical cord: Cord vessels: 3 vessel cord. Insertion site: normalinsertion Amniotic fluid: Amount of AF: normal amount. MVP 4.8 cm Biometry ----- --------- Standard BPD 76.5 mm 30w 5d 33% Hadlock OFD 94.2 mm 30w 3d 37% Rand HC 271.2 mm 29w 4d 2% Hadlock Cerebellum tr 37.4 mm 30w 5d 26% Stan AC 269.6 mm 31w 0d 52% Hadlock Femur 57.8 mm 30w 2d 20% Hadlock Humerus 52.8 mm 30w 5d 51% Rand HC / AC 1.01 EFW 1,608 g 31% Hadlock EFW (lb) 3 lb EFW (oz) 9 oz EFW by: Hadlock ([id number]) Extended Tibia 51.5 mm 30w 5d 47% Rand Pick Up Man 4.5 mm CM 4.8 mm 3% Nicolaides Head / Face / Neck Cephalic index 0.81 69% Nicolaides Nasal bone: present Extremities / Bony Struc FL / BPD 0.76 FL / HC 0.21 FL / AC 0.21 Other Structures FHR 146 bpm Anatomy ----- --------- The following structures appear normal: Head/Neck: Cranium. Lateral ventricles. Choroid plexus. Midline falx.Cavum septi pellucidi. Cerebellum. Cisterna magna. Parenchyma. Vermis. Face: Lips. Nose. Nasal bone. Heart/Thorax: Situs. Bicaval view. Cardiac rhythm. Right lung. Left lung. Abdomen: Abdom. wall. Cord insertion. Stomach. Kidneys. Bladder. Smallbowel. Large bowel. Genitals. Extremities/Skeleton: Right upper arm. Right upper leg. Right lower leg.Right foot. Left upper leg. Left lower leg. Skeleton The following structures could not be adequately visualized: Heart / Thorax 4-chamber view. 3-vessel view. Interventricular septum.Cardiac position. Cardiac axis. Cardiac size. Diaphragm. Spine: Cervical spine. Thoracic spine. Lumbar spine. Sacral spine. Extremities / Left hand. Skeleton The following structures could not be examined: Head / Neck Neck. Face Profile. Maxilla. Mandible. Orbits. Heart / Thorax RVOT view. LVOT view. 6-pkzfhv-suqlory view. Aortic archview. Ductal arch view. Great vessels. Abdomen Right renal artery. Left renal artery. Extremities / Right forearm. Right hand. Left upper arm. Left forearm.Left foot. Skeleton Maternal Structures ----- --------- Uterus Visualized Cervix Suboptimal Right Ovary Not visualized Left Ovary Not visualized Cul de Sac Suboptimal Impression ----- --------- Single viable intrauterine consistent with 30w 6d with an KARTIK of11/24/2024. Amniotic fluid MVP measures 4.8 cm. Recommendations ----- --------- Subsequent follow up or other follow up as clinically determined byprimary OB provider unless otherwise specified by [facility]. Results forwarded to ordering provider so they can follow up with thepatient as necessary. Sonja Coleman DO [facility] [place] Final Res ult * (ABNORMAL) Valproic acid, depakane (09/19/2024 9:04 PM EDT) VALPROIC ACID 31(L) 50 - 100 ug/mL 09/19/2024 9:47 PM EDT [facility] Blood Venous blood / Unknown 09/19/2024 9:04 PM EDT 09/19/2024 9:04 PM EDT Marie Lopez MD LAB BLOOD ORDERABLES Final Resul t [facility] [address] [place] [address], [place] [phone] * Ammonia (09/19/2024 9:04 PM EDT) AMMONIA 32 18 - 72 umol/L 09/19/2024 10:34 PM EDT [facility] Blood Venous blood / Unknown 09/19/2024 9:04 PM EDT 09/19/2024 9:04 PM EDT us Marie Lopez MD LAB BLOOD ORDERABLES Final Resul t Performing Organization Address City/[facility]/ZIP Co de Phone Number [facility] [address] [place] [address], [place] [phone] * (ABNORMAL) Valproic acid, depakane (09/19/2024 2:49 AM EDT) VALPROIC ACID 28(L) 50 - 100 ug/mL 09/19/2024 3:57 AM EDT [facility] Blood Venous blood / Unknown 09/19/2024 2:49 AM EDT 09/19/2024 2:49 AM EDT us Marie Lopez MD LAB BLOOD ORDERABLES Final Resul t Performing Organization Address City/[facility]/ZIP Co de Phone Number [facility] [address] [place] [address], [place] [phone] * Ammonia (09/19/2024 2:49 AM EDT) AMMONIA 34 18 - 72 umol/L 09/19/2024 7:16 AM EDT [facility] Blood Venous blood / Unknown 09/19/2024 2:49 AM EDT 09/19/2024 2:50 AM EDT us Marie Lopez MD LAB BLOOD ORDERABLES Final Resul t [facility] [address] [place] [address], * (ABNORMAL) Comprehensive metabolic panel (09/19/2024 2:49 AM EDT) SODIUM 138 134 - 146 mmol/L 09/19/2024 3:57 AM EDT [facility] POTASSIUM 3.5 3.5 - 5.0 mmol/L 09/19/2024 3:57 AM EDT [facility] CHLORIDE 106 98 - 109 mmol/L 09/19/2024 3:57 AM EDT [facility] CARBON DIOXIDE 25 22 - 32 mmol/L 09/19/2024 3:57 AM EDT [facility] ANION GAP 7 5 - 15 mmol/L 09/19/2024 3:57 AM EDT [facility] BLOOD UREA NITROGEN 5 5 - 23 mg/dL 09/19/2024 3:57 AM EDT [facility] CREATININE 0.45 0.40 - 1.00 mg/dL 09/19/2024 3:57 AM EDT [facility] Comment:METHOD TRACEABLE TO IDMS STANDARD GLUCOSE 96 65 - 99 mg/dL 09/19/2024 3:57 AM EDT [facility] CALCIUM 8.1(L) 8.5 - 10.5 mg/dL 09/19/2024 3:57 AM EDT [facility] TOTAL PROTEIN 5.5(L) 6.0 - 8.0 g/dL 09/19/2024 3:57 AM EDT [facility] ALBUMIN 3.0(L) 3.2 - 5.3 g/dL 09/19/2024 3:57 AM EDT [facility] ALKALINE PHOSPHATASE 121 39 - 130 U/L 09/19/2024 3:57 AM EDT [facility] AST 11 <=41 U/L 09/19/2024 3:57 AM EDT [facility] ALT 5 <=31 U/L 09/19/2024 3:57 AM EDT [facility] BILIRUBIN,TOTAL 0.4 0.3 - 1.2 mg/dL 09/19/2024 3:57 AM EDT [facility] EGFR Non-Race Dependent >90 >=60 ml/min/1.7 3sq.m 09/19/2024 3:57 AM EDT [facility] Comment: Reported eGFR is based on the CKD-EPI 2020 equation that does not use a race coefficient. Blood Venous blood / Unknown 09/19/2024 2:49 AM EDT 09/19/2024 2:49 AM EDT us Lexus Byrd MD LAB BLOOD ORDERABLES Final Re sult [facility] [address] [place] [address], * (ABNORMAL) CBC auto differential (09/19/2024 2:49 AM EDT) WBC 9.2 4 - 11 x10E9/L 09/19/2024 3:48 AM EDT [facility] RBC Count 3.80 3.8 - 5.2 X10E12/L 09/19/2024 3:48 AM EDT [facility] Hemoglobin 10.3(L) 11.7 - 15.5 g/dL 09/19/2024 3:48 AM EDT [facility] Hematocrit 30.4(L) 35 - 47 % 09/19/2024 3:48 AM EDT [facility] MCV 80 80 - 100 fL 09/19/2024 3:48 AM EDT [facility] MCH 27.2 27 - 34 pg 09/19/2024 3:48 AM EDT [facility] MCHC 34.0 32 - 36 g/dL 09/19/2024 3:48 AM EDT [facility] RDW 13.6 11.5 - 15 % 09/19/2024 3:48 AM EDT [facility] Platelet Count 231 150 - 450 X10E9/L 09/19/2024 3:48 AM EDT [facility] MPV 8.4 7 - 12 fL 09/19/2024 3:48 AM EDT [facility] Neutrophils Relative 74.9 % 09/19/2024 3:48 AM EDT [facility] Lymphocytes Relative 20.2 % 09/19/2024 3:48 AM EDT [facility] Monocytes Relative 4.3 % 09/19/2024 3:48 AM EDT [facility] Eosinophils Relative 0.3 % 09/19/2024 3:48 AM EDT [facility] Basophils Relative 0.3 % 09/19/2024 3:48 AM EDT [facility] Neutrophils Absolute (A) 6.9(H) 1.5 - 6.6 10*3/uL 09/19/2024 3:48 AM EDT [facility] Lymphocytes Absolute 1.9 1.0 - 3.5 10*3/uL 09/19/2024 3:48 AM EDT [facility] Monocytes Absolute 0.4 0.0 - 0.9 10*3/uL 09/19/2024 3:48 AM EDT [facility] Eosinophils Absolute 0.0 0.0 - 0.4 10*3/uL 09/19/2024 3:48 AM EDT [facility] Basophils Absolute 0.0 0.0 - 0.2 10*3/uL 09/19/2024 3:48 AM EDT [facility] Differential Type AUTOMATED DIFFERENTIAL 09/19/2024 3:48 AM EDT [facility] Blood Venous blood / Unknown 09/19/2024 2:49 AM EDT 09/19/2024 2:50 AM EDT Lexus Byrd MD LAB BLOOD ORDERABLES Final Re sult [facility] [address] [place] [address], * Syphilis Total (Unknown Syphilis Status) (09/19/2024 2:49 AM EDT) SYPHILIS TOTAL <0.2 <=0.8 AI 09/21/2024 3:30 PM EDT [facility] Blood Venous blood / Unknown 09/19/2024 2:49 AM EDT 09/19/2024 2:49 AM EDT Narrative [facility] - 09/21/2024 3:30 PM EDT NON REACTIVE No serologic evidence of infection to Treponema pallidum. Repeat testing may be considered in patients with suspected acute or primary syphilis in 2 to 4 weeks. us Lexus Byrd MD LAB BLOOD ORDERABLES Final Re sult [facility] [address] [place] [address], documented in this encounter Visit Diagnoses Diagnosis Suicidal intent- Primary Suicidal ideation documented in this encounter Admitting Diagnoses Diagnosis Suicidal intent Suicidal ideation documented in this encounter Administered Medications Inactive Administered Medications - up to 3 most recent administrations Medication Order MAR Action Action Date Dose Rate Site acetaminophen (TYLENOL EXTRA STRENGTH) tablet 1,000 mg 1,000 mg, oral, Every 6 hours PRN, mild pain - pain scale 1-3, moderate pain - pain scale 4-6, Starting on 09/19/24 at 2002 Given 09/19/2024 8:17 PM EDT 1,000 mg [id number]-xpnly acid () 29 mg iron- 1 mg per chewable tablet 1 tablet 1 tablet, oral, Daily, First dose on 09/19/24 at 0900 Given 09/19/2024 11:59 AM EDT 1 tablet documented in this encounter Active and Recently Administered Medications Times are shown in EDT. Scheduled Medication Order 09/20/2024 09/21/2024 09/22/2024 [id number] acid () 29 mg iron- 1 mg per chewable tablet 1 tablet 1 tablet, oral, Daily, First dose on 09/19/24 at 0900 0900 (Not Given - Provider: Daina Avila RN - Reason: Patient/family refused) 1300 (Not Given - Provider: Colette Sheehan RN - Reason: Patient/family refused) PRN Medication Order 09/20/2024 09/21/2024 09/22/2024 acetaminophen (TYLENOL EXTRA STRENGTH) tablet 1,000 mg 1,000 mg, oral, Every 6 hours PRN, mild pain - pain scale 1-3, moderate pain - pain scale 4-6, Starting on 09/19/24 at 2002 documented in this encounter Additional Health Concerns Assessment Noted Time PHQ-9 Depression Total Score: 4 08/29/19 24 12:30 PM EDT documented as of this encounter Care Teams Calender Inspector Relationship Specialty Start Date End Date No Pcp, [place] [address] PCP - General Family Medicine 09/01/24 documented as of this encounter
--- OUTSIDE RECORDS SUMMARY | 2024-09-21 10:18 | XMS_ITS | Encounter Summary ---
Author Organization [facility] Directr [facility] tem Address [id number] [place] [address] Care Team Providers Care Classification And Treatment Director Name Role Phone No Pcp, No Pcp Primary Care Provider Unavailabl e Reason for Visit * Auth/Cert Specialty Diagnoses / Procedures Referred By Wilbur t Referred To Contact Diagnoses Suicide Attempt 33 weeks Bala Randle MD [address] [facility] [place] [address] Phone: tel: fax: Referral ID Status Reason Start Date Expiration Date Visits Re quested Visits Authorized [id number] 1 1 Encounter Details Date Type Department Care Team (Latest Contact Info) Description 09/21/2024 10:18 AM EDT - 09/21/2024 11:59 PM EDT Hospital Encounter [facility] [address] [place] [address] Discharge Disposition: Home Social History Tobacco Use Types Packs/Day Years Used Date Smoking Tobacco: Never Smokeless Tobacco: Never Alcohol Use Standard Drinks/Week Comments Not Currently 0 (1 standard drink = 0.6 oz pur e alcohol) occasionally C Utilities Answer Date Recorded In the past 12 months has e electric, gas, oil, or water company [...] often do you attend chur ch or restorationism services? Never 03/26/2021 Do you belong to any clubs o r organizations such as yazidism groups, unions, fraternal or athletic groups, or [...] Answer Date Recorded Total Score 4 08/29/2023 [facility] - Occupational Stress [...] things needed for daily living? No 09/22/2024 [place] Depression Scale Answer Date Recorded [place] Depression Scale Total 13 09/12/2023 The thought [...] Recorded Do you need help finding a [employer] [facility] career center and/or a training program? [...] on file documented as of this encounter Medications at Time of Discharge vit,sal 74/iron/folic ( VITAMIN 1+1 ORAL) Take by mouth in the morning. 09/24/2024 documented as of this encounter Plan of Treatment Not on [...] Procedure Name Priority Date/Time Associated Diagnosis Comments [facility] COMPREHENSIVE ANATOMIC SURVEY Routine 09/21/2024 11:04 AM EDT documented in this encounter Results * [facility] COMPREHENSIVE ANATOMIC SURVEY (09/21/2024 11:04 AM EDT) Anatomical Region Laterality Modality OB-SUGAR MIXER Ultrasound 09/21/2024 10:3 2 AM EDT Narrative 09/21/2024 11:43 AM EDT NAME: SALTY SANCHEZ : 2000 SEX: F Accession Number: [id number] ORDERING PHYSICIAN: SONJA RAMOS REFERRING PHYSICIAN: ZHANE NORWOOD Coding ----- --------- Procedures [id number]: Ultrasound, uterus, real time with image documentation, and maternal evaluation plus detailed anatomic examination, transabdominal approach;single or first gestation STAT ----- --------- Patient Location: Inpatient Indication ----- --------- Screening for Anatomic Survey, Previous , Obesity in , Supervision of high risk . History ----- --------- OB History 5. Para 2 [id number] Maternal Assessment ----- --------- Physical Exam Height [...] EFW (oz) 9 oz EFW by: Hadlock ([id number]) Extended Tibia 51.5 mm 30w 5d 47% Rand Director Telehealth 4.5 mm CM 4.8 mm 3% Nicolaides [...] Heart / Thorax RVOT view. LVOT view. 8-ysquot-jysmifv view. Aortic arch view. Ductal arch view. [...] primary OB provider unless otherwise specified by MFM. Results forwarded to ordering provider so they can follow up with the patient as necessary. Procedure Note Brady Charles MD - 09/21/2024 NAME: SALTY SANCHEZ : 2000 SEX: F Accession Number: [id number] ORDERING PHYSICIAN: SONJA RAMOS REFERRING PHYSICIAN: ZHANE NORWOOD Coding ----- --------- Procedures [id number]: Ultrasound, uterus, real time with imagedocumentation, and maternal evaluation plus detailed anatomic examination, transabdominalapproach;single or first gestation STAT ----- --------- Patient Location: Inpatient Indication ----- --------- Screening for Anatomic Survey, Previous , Obesity in ,Supervision of high risk . History ----- --------- OB History 5. Para 2 [id number] Maternal Assessment ----- --------- Physical Exam Height [...] EFW (oz) 9 oz EFW by: Hadlock ([id number]) Extended Tibia 51.5 mm 30w 5d 47% Rand Director Telehealth 4.5 mm CM 4.8 mm 3% Nicolaides [...] Heart / Thorax RVOT view. LVOT view. 7-yltrxo-zxagzqy view. Aortic archview. Ductal arch view. Great [...] byprimary OB provider unless otherwise specified by MFM. Results forwarded to ordering provider so they can follow up with thepatient as necessary. us Sonja Ramos DO [facility] US ORDERABLES Final Res ult documented in this encounter Visit Diagnoses Not on filedocumented in this encounter Additional Health Concerns Assessment Noted Time PHQ-9 Depression Total Score: 4 08/29/19 24 12:30 PM EDT documented as of this encounter Care Teams Classification And Treatment Director Relationship Specialty Start Date End Date No Pcp, [place] [address] PCP - General Family Medicine 09/01/24 documented as of this encounter
--- OUTSIDE RECORDS SUMMARY | 2024-10-03 18:58 | XMS_ITS | Encounter Summary ---
Author Organization [facility] Address [address] [place] [address] Care Team Providers Care Investigation Division Sergeant Name Role Phone Unavailable Primary Care Provider Unavailabl e Encounter Details Date Type Department Care Team (Late st Contact Info) Description 12/15/2023 Clinisync Result Encounter [facility] External Department Unsolicited Zhane Bella DO [address] [facility] [place] [address] Social History Tobacco Use Types Packs/Day Years Used Date Smoking Tobacco: Never Assessed Comments Yes Sex and Gender Information Value Date Recorded Sex Assigned at Not on file Legal Sex Female 11:47 PM EDT Gender Identity Not on file Sexual Orientation Not on file documented as of this encounter Plan of Treatment Upcoming Encounters Date Type Department Care Team (Late st Contact Info) Description 10/05/2024 10:30 AM EDT Routine [facility] OB [address] [facility] [place] [address] Mya Kaplan PA [address] [place] [address] documented as of this encounter Procedures Procedure Name Priority Date/Time Associated Diagnosis Comments ECG 12-LEAD 12/15/2023 11:21 AM EDT documented in this encounter Results * ECG 12-LEAD (12/15/2023 11:21 AM EDT) Anatomical Region Laterality Modality Other 12/15/2023 11:2 1 AM EDT Narrative 12/16/2023 8:32 AM EDT [facility] [place] [id number] Electrocardiograph Report Signed Patient: GEORGIE POND MR#: [id number] : 2000 Acct:[id number] Age/Sex: 23 / F ADM Date: Loc: [facility] 258- Attending Dr: Zhane Bella D.O. Ordering Physician: Zhane Bella D.O. Date of Service: 12/15/23 Procedure(s): ECG 12 lead Accession Number(s): [id number] cc: [facility] Test Date: 2023-12-15 Pat Name: GEORGIE POND Department: Room: [facility] Gender: Female Profiler Hand: : 2000 Requested By: ZHANE BELLA Order Number: [id number] Reading MD: BEAR RICHARDSON Measurements Intervals [place] Rate: 80 P: 20 VT: 145 QRS: 32 QRSD: 86 T: 26 QT: 352 QTc: 408 Interpretive Statements SINUS RHYTHM Non-Specific T wave inversion in III WARNING: DATA QUALITY MAY AFFECT INTERPRETATION No previous ECG available for comparison Electronically Signed On 12-16-2023 8:32:05 EDT by BEAR RICHARDSON Dictated By: Bear Richardson M.D. Signed By: 12/16/23 0832 DD/ 1121 TD/TT: Interdisciplinary Professor: Procedure Note Radiology, Radiologist, MD - 12/16/2023 [facility] [place] [id number] Electrocardiograph Report Signed Patient: GEORGIE POND TMR#: [id number] : 2000Acct:[id number] Age/Sex: 23 / FADM Date: Loc: [facility] 258-[address]: Zhane Bella D.O. Ordering Physician: Zhane Bella D.O. Date of Service: 12/15/23 Procedure(s): ECG 12 lead Accession Number(s): [id number] cc: [facility] Test Date: 2023-12-15 Pat Name: GEORGIE RAKAY Department: Room: [facility] Gender: Female Profiler Hand: : 2000 Requested By: ZHANE BELLA Order Number: [id number] Reading MD: BEAR RICHARDSON Measurements Intervals [place] Rate: 80 P: 20 VT: 145 QRS: 32 QRSD: 86 T: 26 QT: 352 QTc: 408 Interpretive Statements SINUS RHYTHM Non-Specific T wave inversion in III WARNING: DATA QUALITY MAY AFFECT INTERPRETATION No previous ECG available for comparison Electronically Signed On 12-16-2023 8:32:05 EDT by BEAR RICHARDSON Dictated By: Bear Richardson M.D. Signed By:12/16/23 0832 DD/ 1121 TD/TT: Interdisciplinary Professor: us Zhane Bella DO [facility] Final Result documented in this encounter Visit Diagnoses Not on filedocumented in this encounter
--- OUTSIDE RECORDS SUMMARY | 2024-10-03 18:59 | XMS_ITS | Encounter Summary ---
Author Organization [facility] Address [address] [facility] [place] [address] Care Team Providers Care Room Maid Name Role Phone Unavailable Primary Care Provider Unavailabl e Encounter Details Date Type Department Care Team (Late st Contact Info) Description 11/22/2023 Clinisync Result Encounter [facility] External Department Unsolicited Zhane Bella, DO [address] [place] [address] Social History Tobacco Use Types Packs/Day Years Used Date Smoking Tobacco: Never Assessed Comments No Sex and Gender Information Value Date Recorded Sex Assigned at Not on file Legal Sex Female 11:47 PM EDT Gender Identity Not on file Sexual Orientation Not on file documented as of this encounter Plan of Treatment Upcoming Encounters Date Type Department Care Team (Late st Contact Info) Description 10/05/2024 10:30 AM EDT Routine [facility] BCP OB [address] [place] [address] Mya Kaplan PA [address] [facility] [place] [address] documented as of this encounter Procedures Procedure Name Priority Date/Time Associated Diagnosis Comments US OB PLACENTA 11/22/2023 3:44 PM EDT AMNISURE Routine 11/22/2023 1:36 PM EDT [facility] URINE MICROSCOPIC ONLY Routine 11/22/2023 1:25 PM EDT [facility] UA (CLEAN/CATCH) BODY PRESS OPERATOR/MICRO IF IND. Routine 11/22/2023 1:25 PM EDT documented in this encounter Results * US OB PLACENTA (11/22/2023 3:44 PM EDT) Anatomical Region Laterality Modality Other 11/22/2023 3:44 PM EDT Narrative 11/22/2023 3:47 [place] [address] Ultrasound Report Signed Patient: GEORGIE POND MR#: [id number] : 2000 Acct:[id number] Age/Sex: 23 / F ADM Date: Loc: [facility] 251-[address]: Zhane Bella D.O. Ordering Physician: Zhane Bella D.O. Date of Service: 11/22/23 Procedure(s): US OB placenta Accession Number(s): [id number] cc: Zhane Bella D.O.; Physician,Non-Staff M.D. [facility] [place] [address] Patient Name: GEORGIE POND MRN: [id number] date: 2000 Sex: F Assigned Patient Location: [facility] Current Patient Location: [facility] Accession/Order Number: [id number] Exam Date: 11/22/2023 14:20 Report Date: 11/22/2023 15:44 At the request of: ZHANE BELLA Procedure: US OB placenta EXAMINATION: US OB placenta HISTORY: rt sided back pain, cramping COMPARISON: No relevant comparison available. FINDINGS: PRESENTATION: Cephalic Amniotic fluid: 17.6 cm; normal range. PLACENTA: Anterior, grade 0. No abruption or subchorionic hematoma. HEART RATE: 132 bpm OTHER: None. GA: 36 weeks 1 day KARTIK: 12/19/2023 US/US OB placenta IMPRESSION: 1. Anterior placenta without appreciable acute abnormality. No prior studies for comparison. Lower margin of placenta and its relation to the internal os could not be seen. Electronically authenticated by: RUBEN VALDIVIA Date: 11/22/2023 15:44 Dictated By: Ruben Valdivia M.D. Signed By: 11/22/23 1547 DD/ 1544 TD/TT: Brassiere Cup Mold Cutter: Procedure Note Radiology, Radiologist, MD - 11/22/2023 [place] [address] Ultrasound Report Signed Patient: GEORGIE POND TMR#: [id number] : 2000Acct:[id number] Age/Sex: Date: Loc: [facility] 251-[address]: Zhane Bella D.O. Ordering Physician: Zhane Bella D.O. Date of Service: 11/22/23 Procedure(s): US OB placenta Accession Number(s): [id number] cc: Zhane Bella D.O.; Physician,Non-Staff [place] [facility] [place] [address] Patient Name: GEORGIE POND MRN: [id number] date: 2000 Sex: F Assigned Patient Location: [facility] Current Patient Location: [facility] Accession/Order Number: [id number] Exam Date: 11/22/2023 14:20 Report Date: 11/22/2023 15:44 At the request of: ZHANE BELLA Procedure: US OB placenta EXAMINATION: US OB placenta HISTORY: rt sided back pain, cramping COMPARISON: No relevant comparison available. FINDINGS: PRESENTATION: Cephalic Amniotic fluid: 17.6 cm; normal range. PLACENTA: Anterior, grade 0. No abruption or subchorionic hematoma. HEART RATE: 132 bpm OTHER: None. GA: 36 weeks 1 day KARTIK: 12/19/2023 US/US OB placenta IMPRESSION: 1. Anterior placenta without appreciable acute abnormality. No priorstudies for comparison. Lower margin of placenta and its relation to the internalos could not be seen. Electronically authenticated by: RUBEN VALDIVIA Date: 11/22/2023 15:44 Dictated By: Ruben Valdivia M.D. Signed By:11/22/23 1547 DD/ 1544 TD/TT: Brassiere Cup Mold Cutter: us Zhane Jena DO [facility] Final Result * AMNISURE (11/22/2023 1:36 PM EDT) Pathologist [facility]H AMNISURE NEGATIVE NEGATIVE [facility] 11/22/2023 1:36 PM EDT 11/22/2023 1:47 PM EDT Narrative [facility] - 11/22/2023 2:06 PM EDT Zhane Jena DO LAB BLOOD ORDERABLES Final Resul t [facility] * (ABNORMAL) [facility] URINE MICROSCOPIC ONLY (11/22/2023 1:25 PM EDT) Pathologist [facility] TB WBC >100(A) NONE SEEN #/HPF [facility] TBH RBC 2-5(A) 0 - 2 #/HPF TBH BACTERIA URINE LARGE(A) NONE SEEN #/HPF TB[facility] MUCUS URINE LARGE(A) NONE SEEN TBH SQUAMOUS EPITHELIAL CELL URINE MANY(A) NONE/RARE #/LPF TBH CRYSTALS SEEN? None Seen None Seen #/HPF TBH CAST SEEN? NONE SEEN NONE SEEN #/LPF [facility] URINE CULTURE INDICATED YES [facility] 11/22/2023 1:25 PM EDT 11/22/2023 1:47 PM EDT Narrative [facility] - 11/22/2023 2:23 PM EDT us Zhane Jena DO [facility] Final Result [facility] * (ABNORMAL) TB[facility] UA (CLEAN/CATCH) BODY PRESS OPERATOR/MICRO IF IND. (11/22/2023 1:25 PM EDT) COLOR URINE DK YELLOW YELLOW TBH CLARITY URINE CLOUDY(A) CLEAR TBH SPECIFIC GRAVITY URINE 1.025 1.005 - 1.025 TBH PH URINE 7.0 5.0 - 9.0 TBH PROTEIN URINE 30(A) NEG/TRACE mg/dL TBH GLUCOSE URINE UA NEGATIVE NEGATIVE mg/dL TBH BILIRUBIN URINE NEGATIVE NEGATIVE TBH KETONES URINE NEGATIVE NEGATIVE mg/dL TBH BLOOD URINE TRACE-I NEGATIVE TBH NITRITE URINE NEGATIVE NEGATIVE TBH UROBILINOGEN URINE 2.0(A) 0.2 - 1.0 EU/dL TBH LEUKOCYTE ESTERASE URINE MODERATE(A) NEGATIVE TB[facility] URINE MICROSCOPIC INDICATED YES [facility] 11/22/2023 1:25 PM EDT 11/22/2023 1:47 PM EDT Narrative [facility] - 11/22/2023 2:23 PM EDT us Zhane Bella DO [facility] Final Result [facility] TB documented in this encounter Visit Diagnoses Not on filedocumented in this encounter
--- OUTSIDE RECORDS SUMMARY | 2024-10-03 18:59 | XMS_ITS | Encounter Summary ---
Author Organization [facility] Address [address] [facility] [place] [address] Care Team Providers Care Mechanical Inspector Name Role Phone Unavailable Primary Care Provider Unavailabl e Encounter Details Date Type Department Care Team (Late st Contact Info) Description 12/12/2023 Abstract [facility] OB [address] [place] [phone] Osmany Bella DO [address] [facility] [address] [place], [place] [id number] Social History Tobacco Use Types Packs/Day Years [...] Description 10/05/2024 10:30 AM EDT Routine [facility] OB [address] [place] [phone] Mya Kaplan PA [address] [facility] [address] [place], [place] [address] documented as of this encounter Visit Diagnoses Not on filedocumented in this encounter
--- OUTSIDE RECORDS SUMMARY | 2024-10-03 18:59 | XMS_ITS | Encounter Summary ---
Author Organization [facility] Address [address] [facility] [place] [address] Care Team Providers Care Drone Pilot Name Role Phone Unavailable Primary Care Provider Unavailabl e Encounter Details Date Type Department Care Team (Late st Contact Info) Description 12/12/2023 Abstract [facility] OB [address] [place] [phone] Osmnay Bella DO [address] [facility] [address] [place], [place] [phone] Social History Tobacco Use Types Packs/Day Years [...] Description 10/05/2024 10:30 AM EDT Routine [facility] OB [address] [facility] [place] [phone] Mya Kaplan PA [address] [facility] [address] [place], [place] [phone] documented as of this encounter Visit Diagnoses Not on filedocumented in this encounter
--- OUTSIDE RECORDS SUMMARY | 2024-10-03 18:59 | XMS_ITS | Encounter Summary ---
Author Organization [employer] Address [id number] [address] [place] [address] Care Team Providers Care Meal Room Hand Name Role Phone No Pcp, No Pcp Primary Care Provider Unavailabl e Encounter Details Date Type Department Care Team (Late st Contact Info) Description 09/25/2024 Orders Only [facility] Obstetrics/Gynecology [address] [place] [phone] Madeline Gamboa [facility] [address] [place] [phone] Bacterial vaginosis in (Primary Dx) Social History Tobacco Use Types Packs/Day Years [...] often do you attend chur ch or adventism services? Never 03/26/2021 Do you belong to any clubs o r organizations such as catholic groups, unions, fraternal or athletic groups, or [...] Answer Date Recorded Total Score 4 08/29/2023 [facility] - Occupational Stress [...] things needed for daily living? No 09/22/2024 [place] Depression Scale Answer Date Recorded [place] Depression Scale Total 13 09/12/2023 The thought [...] Recorded Do you need help finding a [facility] career center and/or a training program? [...] a purpose and direction in my life. Tifafnieith er Agree nor Disagree 03/26/2021 Education Answer [...] mean way. documented as of this encounter Visit Diagnoses Diagnosis Bacterial vaginosis in - Primary documented in this encounter Additional Health Concerns Assessment Noted Time PHQ-9 Depression Total Score: 4 08/29/19 24 12:30 PM EDT documented as of this encounter Care Teams Meal Room Hand Relationship Specialty Start Date End Date No Pcp, [place] [address] PCP - General Family Medicine 09/01/24 documented as of this encounter
--- OUTSIDE RECORDS SUMMARY | 2024-10-03 18:59 | XMS_ITS | Encounter Summary ---
Author Organization [facility] Address [address] [place] [address] Care Team Providers Care Roller Bearing Inspector Name Role Phone Unavailable Primary Care Provider Unavailabl e Encounter Details Date Type Department Care Team (Late st Contact Info) Description 11/22/2023 Clinisync Result Encounter [facility] External Department Unsolicited Zhane Bella DO [address] [facility] [place] [address] Social History Tobacco Use Types Packs/Day Years [...] OB [address] [address] Mya Kaplan PA [address] [place] [address] documented as of this encounter Procedures Procedure Name Priority Date/Time Associated Diagnosis Comments US RENAL BI 11/22/2023 3:40 PM EDT documented in this encounter Results * US RENAL BI (11/22/2023 3:40 PM EDT) Anatomical Region Laterality Modality Other 11/22/2023 3:40 PM EDT Narrative 11/22/2023 3:42 [place] [address] Ultrasound Report Signed Patient: GEORGIE POND MR#: [id number] : 2000 Acct:[id number] Age/Sex: 23 / F ADM Date: Loc: [facility] 251-[address]: Zhane Bella D.O. Ordering Physician: Zhane Bella D.O. Date of Service: 11/22/23 Procedure(s): US renal BI Accession Number(s): [id number] cc: Zhane Bella D.O.; Physician,Non-Staff [place] [address] Patient Name: GEORGIE POND MRN: [id number] date: 2000 Sex: F Assigned Patient Location: [facility] Current Patient Location: [facility] Accession/Order Number: [id number] Exam Date: 11/22/2023 14:20 Report Date: 11/22/2023 15:40 At the request of: ZHANE BELLA Procedure: US renal BI EXAMINATION: US renal BI HISTORY: rt sided back pain, cramping COMPARISON: No relevant comparison available. TECHNIQUE: Ultrasound examination was performed of the kidneys and urinary bladder. FINDINGS: RIGHT KIDNEY: Contain several small nonobstructing stones. Normal renal cortical parenchymal echogenicity. Color Doppler demonstrates blood flow within the kidney. Kidney: 11.5 x 4.6 x 5.5 cm LEFT KIDNEY: Contain several small nonobstructing stones. Normal renal cortical parenchymal echogenicity. Color Doppler demonstrates blood flow within the kidney. Kidney: 12.4 x 4.3 x 4.9 cm BLADDER: No visible wall thickening, mass, or calculi. US/US renal BI IMPRESSION: 1. Bilateral nonobstructing nephrolithiasis. No appreciable acute findings. Electronically authenticated by: RUBEN VALDIVIA Date: 11/22/2023 15:40 Dictated By: Ruben Valdivia M.D. Signed By: 11/22/23 1542 DD/ 1540 TD/TT: Wrapper Layer: Procedure Note Radiology, Radiologist, MD - 11/22/2023 [place] [address] Ultrasound Report Signed Patient: GEORGIE POND TMR#: [id number] : 2000Acct:[id number] Age/Sex: 23 / FADM Date: Loc: [facility] 251-[address]: Zhane Bella D.O. Ordering Physician: Zhane Bella D.O. Date of Service: 11/22/23 Procedure(s): US renal BI Accession Number(s): [id number] cc: Zhane Bella D.O.; Physician,Non-Staff Adriana [facility] [place] [id number] Patient Name: GEORGIE POND MRN: [id number] date: 2000 Sex: F Assigned Patient Location: [facility] Current Patient Location: [facility] Accession/Order Number: [id number] Exam Date: 11/22/2023 14:20 Report Date: 11/22/2023 15:40 At the request of: ZHANE BELLA Procedure: US renal BI EXAMINATION: US renal BI HISTORY: rt sided back pain, cramping COMPARISON: No relevant comparison available. TECHNIQUE: Ultrasound examination was performed of the kidneys and urinary bladder. FINDINGS: RIGHT KIDNEY: Contain several small nonobstructing stones. Normal renal cortical parenchymal echogenicity. Color Doppler demonstrates blood flow within the kidney. Kidney: 11.5 x 4.6 x 5.5 cm LEFT KIDNEY: Contain several small nonobstructing stones. Normal renal cortical parenchymal echogenicity. Color Doppler demonstrates blood flow within the kidney. Kidney: 12.4 x 4.3 x 4.9 cm BLADDER: No visible wall thickening, mass, or calculi. US/US renal BI IMPRESSION: 1. Bilateral nonobstructing nephrolithiasis. No appreciable acutefindings. Electronically authenticated by: RUBEN VALDIVIA Date: 11/22/2023 15:40 Dictated By: Ruben Valdivia M.D. Signed By:11/22/23 1542 DD/ 1540 TD/TT: Wrapper Layer: us Zhane Monahano DO [facility] Final Result documented in this encounter Visit Diagnoses Not on filedocumented in this encounter
--- OUTSIDE RECORDS SUMMARY | 2024-10-03 18:59 | XMS_ITS | Clinical Summary ---
Author Organization [employer] tem Address [id number] [address] [place] [address] Care Team Providers Care Affiliate Marketing Coordinator Name Role Phone No Pcp, No Pcp Primary Care Provider Unavailabl e Allergies No known active allergies Medications * This document contains information received from the source organization and may not represent a complete record from that organization. [id number] ic acid () 29 mg iron- 1 mg tablet,chewabl e Chew 1 tablet and swallow in the morning for 14 days. 14 tablet 09/25/19 25 025 Active vit,sal 74/iron/folic ( VITAMIN 1+1 ORAL) Take by mouth in the morning. 025 Discontinued(St op Taking at Discharge) ondansetron (ZOFRAN) 4 mg tablet Take 1 tablet (4 mg total) by mouth every 8 (eight) hours as needed for nausea or vomiting for up to 12 doses. 12 tablet 06/25/19 25 025 Discontinued metroNIDAZOLE (FLAGYL) 500 mg tabletIndicati ons:Bacterial vaginosis in Take 1 tablet (500 mg total) by mouth in the morning and at bedtime for 7 days. 14 tablet 09/26/19 25 025 Active Problems Problem Noted Date Diagnosed Date Depression 09/22/2024 Suicidal intent 09/20/2024 Previous delivery affecting , antepartum 08/03/2024 Urinary tract infection in m other during , antepartum 08/03/2024 Headache 11/27/2023 Late care 11/19/2023 Short interval between pregn ancies affecting , antepartum 11/19/2023 Cystic fibrosis carrier 09/12/2023 Overview (11/19/2023): FOB declines testing Maternal varicella, non-immune 09/02/2023 Intrauterine 09/02/2023 Overview (09/02/2023): 09/02/23 2 hour glucose WNL, GC/CT and Trich negative, + yeast infection Hx of thyroid disease 08/30/2023 Overview (08/30/2023): 08/06/23 patient reports ABN thyroid with prior - normal thyroid labs, consider recheck in 4-6 weeks. Marijuana use during 08/29/2023 Overview (08/29/2023): [id number] THC positive and patient educated on cessation. Hx of delivery, currently 08/27 Overview (08/29/2023): Twins delivered 02-03-2023 at 25w2d 07/28/23 cervical length 4 cm Acute cystitis 08/28/2023 Overview (08/28/2023): 08-22-23 treated in [place] ER with Macrobid Intractable chronic migraine without aura 2023 Overview (08/28/2023): 05/10/2023 Neuro consult placed Magnesium Citrate ordered 400mg daily Episode of recurrent major depressive disorder 0 07/06/2021 Overview (08/28/2023): Has appointment at [facility] on 09-18-23 Slow transit constipation 03/12/2019 Assessment & Plan (08/28/2023 3:15 PM EDT): Hydration, fibers Colace HS daily Estimated Date of Delivery Comme nts Yes 11/24/2024 Based on Patient Reported Resolved Problems Problem Noted Date Diagnosed Date Resolved Date LGA (large for gestational a ge) fetus affecting management of mother 08/29/2023 Other chest pain 08/29/2023 09/12/[address] 04/05/2023 Overview (04/05/2023): Inserted in left arm 04/05/23. Due for removal 04/2026. labor in second trimester 02/03/2023 08/28/2023 uterine contractions 01/24/2023 08/28/2023 Right sided abdominal pain 12/22/2022 0 08/28/2023 Monochorionic diamniotic twi n gestation in second trimester 12/10/2022 08/28/2023 Gastroesophageal reflux dise ase with esophagitis without hemorrhage 08/03/2021 Dysuria 07/06/2021 08/28/2023 Acute cystitis with hematuria 07/06/2021 08/28/2023 Body aches 05/10/2021 07/06/2021 Advice given about COVID-19 virus by telephone 03/06/2021 08/28/2023 Cough 10/19/2020 07/06/2021 Encounter for routine child health examination without abnormal findings 08/22/2020 Acute ear pain, bilateral 06/23/2020 Pharyngitis 06/23/2020 08/22/2020 Otitis of left ear 06/23/2020 Acute back pain with sciatica, right 06/24/2019 08/28/2023 Acute non-recurrent maxillary sinusitis 06/08/2019 07/06/2021 Lumbar spine pain 06/02/2019 08/28/2023 Bloody stools 03/12/2019 08/22/2020 Missed period 03/12/2019 07/06/2021 Severe recurrent major depre ssion without psychotic features 01/09/2017 08/22/2020 Major depression, single episode 10/19/2016 01/09/2017 Encounters * This document contains information received from the source organization and may not represent a complete record from that organization. Date Type Department Care Team Description 09/25/2024 Orders Only [facility] Physicians Obstetrics/Gynecolo gy [address] [place] [address] Madeline Gamboa APRN-CNM Bacterial vaginosis in (Primary Dx) 09/22/2024 Travel 09/21/2024 10:18 AM EDT - 09/21/2024 11:59 PM EDT Hospital Encounter [facility] Imaging [address] [place] [address] Discharge Disposition: Home 09/18/2024 10:04 PM EDT - 09/22/2024 3:00 AM EDT Hospital Encounter [facility] - GEN 3 Antepartum [address] [facility] [place] [address] Bala Randle MD Discharge Disposition: [facility] 09/18/2024 4:18 PM EDT - 09/18/2024 10:03 PM EDT Emergency [facility] - Emergency [address] [place] [address] Saroj Carreon, [place] (Primary Dx) Discharge Disposition: [facility] 09/18/2024 Travel 09/01/2024 Travel 08/03/2024 6:20 AM EDT - 08/03/2024 9:22 AM EDT Hospital Encounter [facility] - LDRP [address] [place] [address] Ynes Gale, SHAYNE-CNM Saul Fan MD Discharge Disposition: Home 08/03/2024 Orders Only [facility] [address] [place] [address] Violeta De Leon APRN-CNM Urinary tract infection in mother during , antepartum (Primary Dx) 08/03/2024 Travel 07/27/2024 2:58 PM EDT - 07/27/2024 11:59 PM EDT Hospital Encounter [facility] - Lab [address] [place] [address] Encounter for supervision of normal , unspecified, second trimester (Primary Dx); 21 weeks gestation of Discharge Disposition: Home 07/27/2024 Travel 07/12/2024 1:30 PM EDT - 07/12/2024 3:30 PM EDT Hospital Encounter [facility] - [facility] [address] [place] [address] Romulo Roche MD Discharge Disposition: Home 07/12/2024 Travel 07/06/2024 10:21 AM EST - 07/06/2024 11:59 PM EST Hospital Encounter [facility] - Ultrasound [address] [place] [address] Bleeding in early Discharge Disposition: Home 07/06/2024 Travel from Last 3 Months Immunizations Immunization Administration Dates Next Due DTaP 12/04/2006 DTaP, Unspecified 10/19/2003, 4,02/24/2003,11/11 HPV9 12/28/2016 Hep B, Adolescent or Pediatric 10/19/2003,2003,2002 HiB 10/19/2003, 4,02/24/2003,11/11 IPV 12/04/2006 Influenza, Im Trivalent Preservative 03/13/2007, 02/25/2006 Influenza, Injectable, quadr ivalent (PF) 03/12/2019 MMR 12/04/2006,10/19/2003 Meningococcal Conjugate 12/28/2016 Pneumococcal Conjugate 05/25/2003,02/24/2003,01/2003 Polio, Unspecified 05/25/2003,02/24/2003, 003 Tdap 10/10/2023,12/27/2014 Family History * Patient is adopted Medical History Relation Name Comments ADD / ADHD Brother 1 Conduct disorder Brother 1 Post-traumatic stress disorder Brother 1 ADD / ADHD Brother 2 Schizophrenia Brother 2 Lung cancer Maternal Grandfather Lung cancer Maternal Grandmother Not sure Alcohol abuse Mother Isis herman Breast cancer Mother Isis herman Depression Mother Isis herman Diabetes Mother Isis herman Drug abuse Mother Isis herman Hypertension Mother Isis herman Ovarian cancer Mother Isis herman Suicide Attempts Mother Isis herman Epilepsy Sister Colon cancer Neg Hx Uterine cancer Neg Hx Relation Name Status Comments Brother 1 Alive Brother 2 Alive Father unknown Maternal Grandfather Alive Maternal Grandmother Not sure Mother Isis herman Alive Paternal Grandfather unknown Paternal Grandmother unknown Sister Alive Social History Tobacco Use Types Packs/Day Years Used Date Smoking Tobacco: Never Smokeless Tobacco: Never Tobacco Cessation:Counseling Given: Not Answered Alcohol Use Standard Drinks/Week Comments Not Currently 0 (1 standard drink = 0.6 oz pur e alcohol) occasionally [facility] Utilities Answer Date Recorded In the past [...] Never 03/26/2021 How often do you attend [facility] ch or hoahaoism services? Never 03/26/2021 Do you belong to any clubs o r organizations such as nondenominational groups, unions, fraternal or athletic groups, or [...] Answer Date Recorded Total Score 4 08/29/2023 [facility] Occupational Stress Questionnaire Answer [...] things needed for daily living? No 09/22/2024 [place] Depression Scale Answer Date Recorded [place] Depression Scale Total 13 09/12/2023 The thought [...] Recorded Do you need help finding a [facility] career center and/or a training [...] PM EDT Sexual Orientation Not on file Last Filed Vital Signs Vital Sign Reading Time Taken Comments Blood Pressure 98/65 09/24/2024 8:00 AM EDT Pulse 77 09/24/2024 8:00 AM EDT Temperature 36.6 C (97.9 F) 09/24/2024 8:00 AM EDT Respiratory Rate 16 09/24/2024 8:00 AM EDT Oxygen Saturation 97% 09/23/2024 10: 49 PM EDT Inhaled Oxygen Concentration - - Weight 80.6 kg (177 lb 12.8 oz) 09/22/2024 3:57 AM EDT Height 157.5 cm (5' 2 ) 09/22/2024 3:57 AM EDT Body Mass Index 32.52 09/22/2024 3:57 AM EDT Plan of Treatment Health Maintenance Due Date Last Done Comments Adult BMI Follow Up Plan 2020 Pap Smear 09/09/2023 COVID-19 Vaccine (2023-2 5 season) 2024 10/07/2020, 09/09/2020 Depression Screening 09/11/2024 09/12/2023, 08/29/19 24 Influenza Vaccine 01/04/2025 03/12/2019, , 02/25/2006 Tobacco Screening 09/20/2025 09/20/2024 Adult BMI Screening 09/22/2025 09/22/2024 Chlamydia Screening 09/23/2025 09/23/2024, 05/15/2024, 11/17/2023, Additional history exists DTaP,Tdap and Td Vaccines (8 - Td or Tdap) 10/09/2033 10/10/2023, 12/27/2014, 12/04/2006, Additional history exists Goals Goal Patient Goal Type Associated Problems [...] talk to people in a mean way. Medical Devices Not on file Procedures Procedure Name Priority Date/Time Associated Diagnosis Comments URINALYSIS STAT 09/23/2024 11:40 PM EDT CHLAMYDIA/GC BY PCR NIGHAT SWAB STAT 09/23/2024 11:17 PM EDT VAGINITIS PANEL PCR STAT 09/23/2024 1 1:17 PM EDT URINALYSIS Routine 09/23/2024 4:56 PM EDT URINE CULTURE Routine 09/23/2024 4:56 PM EDT [facility] COMPREHENSIVE ANATOMIC SURVEY Routine 09/21/2024 11:04 AM EDT VALPROIC ACID DEPAKANE Routine 5 9:04 PM EDT AMMONIA Routine 09/19/2024 9:04 PM EDT VALPROIC ACID DEPAKANE Routine 5 2:49 AM EDT AMMONIA Routine 09/19/2024 2:49 AM EDT COMPREHENSIVE METABOLIC PANEL STAT 09/19/2024 2:49 AM EDT CBC WITH AUTO DIFFERENTIAL STAT 09/19/2024 2:49 AM EDT SYPHILIS TOTAL(UNKNOWN SYPHILIS STATUS) STAT 09/19/2024 2:49 AM EDT POCT NURSING URINE MACROSCOPIC UA Routine 09/18/2024 7:24 PM EDT POCT NURSING URINE MACROSCOPIC UA Routine 09/18/2024 7:01 PM EDT DRUG SCREEN, URINE STAT 09/18/2024 6: 52 PM EDT AMMONIA STAT 09/18/2024 4:58 PM EDT EXTRA TUBES BLUE TOP Routine 09/18/2024 4:55 PM EDT EXTRA TUBES Routine 09/18/2024 4:55 PM EDT IRON AND TIBC STAT 09/18/2024 4:55 PM EDT VALPROIC ACID DEPAKANE STAT 4:55 PM EDT SALICYLATE LEVEL STAT 09/18/2024 4:55 PM EDT ETHANOL STAT 09/18/2024 4:55 PM EDT COMPREHENSIVE METABOLIC PANEL STAT 09/18/2024 4:55 PM EDT CBC WITH AUTO DIFFERENTIAL STAT 09/18/2024 4:55 PM EDT ACETAMINOPHEN LEVEL STAT 09/18/2024 4 :55 PM EDT ECG 12-LEAD STAT 09/18/2024 4:43 PM EDT PM ED CRITICAL CARE Routine 09/18/2024 4 :27 PM EDT CBC WITH AUTO DIFFERENTIAL Routine 09/01/2024 3:48 PM EDT Encounter for screening for diabetes mellitus GLU 1H POST 50G LOAD Routine 09/01/2024 3:45 PM EDT Encounter for screening for diabetes mellitus GLUCOSE TOLERANCE, 1 HR 50GM LOAD ( PATIENTS ONLY) Routine 09/01/2024 3:45 PM EDT Encounter for screening for diabetes mellitus URINALYSIS STAT 08/03/2024 6:21 AM EDT URINE CULTURE STAT 08/03/2024 6:21 AM EDT HEPATITIS C(HCV) ANTIBODY W/REFLEX TO PCR Routine 07/27/2024 3:10 PM EDT Encounter for supervision of normal , unspecified, second trimester 21 weeks gestation of HEPATITIS B SURFACE ANTIGEN Routine 07/27/2024 3:10 PM EDT Encounter for supervision of normal , unspecified, second trimester 21 weeks gestation of RUBELLA ANTIBODY, IGG Routine 07/27/2024 3:10 PM EDT Encounter for supervision of normal , unspecified, second trimester 21 weeks gestation of SYPHILIS TOTAL(UNKNOWN SYPHILIS STATUS) Routine 07/27/2024 3:10 PM EDT Encounter for supervision of normal , unspecified, second trimester 21 weeks gestation of HEMOGLOBIN A1C Routine 07/27/2024 3:10 PM EDT Encounter for supervision of normal , unspecified, second trimester 21 weeks gestation of CBC WITH AUTO DIFFERENTIAL Routine 07/27/2024 3:10 PM EDT Encounter for supervision of normal , unspecified, second trimester 21 weeks gestation of TSH Routine 07/27/2024 3:10 PM EDT Encounter for supervision of normal , unspecified, second trimester 21 weeks gestation of DRUG SCREEN, URINE Routine 07/27/2024 3: 10 PM EDT Encounter for supervision of normal , unspecified, second trimester 21 weeks gestation of AFP SINGLE MARKER SCRN, MATERNAL, SERUM Routine 07/27/2024 3:10 PM EDT Encounter for supervision of normal , unspecified, second trimester 21 weeks gestation of URINALYSIS STAT 07/12/2024 1:38 PM EDT US PREG TRANSABD FU PER FETU Routine 07/06/2024 12:14 PM EST Bleeding in early from Last 3 Months Results * (ABNORMAL) Urinalysis (09/23/2024 11:40 PM EDT) Only the most recent of4 resultswithin the time period is included. COLOR Yellow Yellow, Colorless 09/24/2024 1:13 AM [facility] TURBIDITY Clear Clear 09/24/2024 1:13 AM [facility] SPECIFIC GRAVITY 1.025 1.003 - 1.035 09/24/2024 1:13 AM [facility] NITRITE Negative Negative 09/24/2024 1:13 AM [facility] PH,URINE 6.0 5.0 - 8.5 09/24/2024 1:13 AM [facility] LEUKOCYTE ESTERASE Negative Negative 09/24/2024 1:13 AM [facility] PROTEIN Trace(A) Negative 09/24/2024 1:13 AM [facility] KETONES (URINE) Trace(A) Negative 1:13 AM [facility] UROBILINOGEN 4.0 eu/dL(A) 0.2 eu/dL, 1.0 eu/dL 09/24/2024 1:13 AM [facility] BILIRUBIN (URINE) Negative Negative 09/24/2024 1:13 AM [facility] BLOOD/HGB Negative Negative 09/24/2024 1:13 AM [facility] MUCOUS Present(A) None 09/24/2024 1:13 AM [facility] R.B.CELLS 0 0 - 5 09/24/2024 1:13 AM [facility] SQUAMOUS EPITHELIUM 3 0 - 5 09/24/2024 1:13 AM EDT [facility] W.B.CELLS 2 0 - 5 09/24/2024 1:13 AM EDT [facility] GLUCOSE (URINE) Negative Negative, 250 mg/dL, >1000 mg/dL 09/24/2024 1:13 AM EDT [facility] Urine Urine specimen collection, clean catch / Unknown 09/23/2024 11:40 PM EDT 09/23/2024 11:51 PM EDT [facility] UR[facility] ORDERABLES Final Resu lt [facility] [address] [place] [address], [place] * Chlamydia/GC by PCR Nighat Swab (09/23/2024 11:17 PM EDT) CHLAMYDIA DNA(PCR) Negative Negative 09/25/2024 6:28 AM EDT [facility] Comment:Chlamydia trachomati s not detected by nucleic acid amplification. This does not exclude the possibility of infection because results are dependent on adequate specimen collection. GONORRHOEAE DNA(PCR) Negative Negative 09/25/2024 6:28 AM EDT [facility] Comment:Neisseria gonorrhoea e not detected by nucleic acid amplification. This does not exclude the possibility of infection because results are dependent on adequate specimen collection. Swab Vaginal structure / Unknown 09/23/2024 11:17 PM EDT 09/23/2024 11:27 PM EDT [facility] MICROBIOLOG[facility] - GENERAL ORDE RABLES Final Result [facility] [address] [place] [address], * (ABNORMAL) Vaginitis Panel PCR (09/23/2024 11:17 PM EDT) BACT. VAGINOSIS DNA Detected(A) Not Detected 09/24/2024 9:29 PM EDT [facility] Comment:Qualitative results are reported based on detection and quantitation of targeted organism markers which include: Lactobacillus spp. (L. crispatus and L. jensenii), Gardnerella vaginalis, Atopobium vaginae, Bacterial Vaginosis Associated Bacteria-2 (BVAB-2) and Megasphaera-1. SHANEKA SPECIES DNA Not Detected Not Detected 09/24/2024 9:29 PM EDT [facility] Comment:Shaneka species not detected include: C. albicans, C. tropicalis, C. parapsilosis or C. dubliniensis. SHANEKA KRUSEI DNA Not Detected Not Detected 09/24/2024 9:29 PM EDT [facility] Comment:No Shaneka krusei de tected. SHANEKA GLABRATA DNA Not Detected Not Detected 09/24/2024 9:29 PM EDT [facility] Comment:No Shaneka glabrata detected. TRICHOMONAS VAG DNA Not Detected Not Detected 09/24/2024 9:29 PM EDT [facility] Comment: No Trichomonas vaginalis detected. BD MAX Vaginal Panel has not been evaluated for patients under 18 years old. Results for these patients should be reviewed and assessed in accordance with clinical presentation to determine patient diagnosis. Swab Vaginal structure / Unknown 09/23/2024 11:17 PM EDT 09/23/2024 11:26 PM EDT Madeline Cooper [employer]-CNM MICROBIOLOGY - GENERAL ORDE [facility] Final Result [facility] [address] [place] [address], * Urine Culture Urine, Clean Catch Midstream (09/23/2024 4:56 PM EDT) Only the most recent of2 resultswithin the time period is included. CULTURE RESULTS 10-50,000 ORGANISMS/mL NORMAL UROGENITAL ALEX 09/24/2024 3:41 PM EDT [facility] Urine Urine specimen collection, clean catch / Unknown 09/23/2024 4:56 PM EDT 09/23/2024 5:02 PM EDT Narrative [facility] - 09/24/2024 3:41 PM EDT Urine received without preservative - delays in transport may affect results. Interpret with caution and clinical correlation is recommended. us Lucius Townsend MD MICROBIOLOGY - GENERAL ORDERABL ES Final Result [facility] [address] [place] [address], [place] [phone] * [facility] COMPREHENSIVE ANATOMIC SURVEY (09/21/2024 11:04 AM EDT) Anatomical Region Laterality Modality OB-CHIEF ORTHOPTIST Ultrasound 09/21/2024 10:3 2 AM EDT Narrative 09/21/2024 11:43 AM EDT NAME: SALTY SANCHEZ : 2000 SEX: F Accession Number: [id number] ORDERING PHYSICIAN: SONJA RAMOS REFERRING PHYSICIAN: ZHANE BELLA Coding ----- --------- Procedures 11936: Ultrasound, uterus, real time with image documentation, and maternal evaluation plus detailed anatomic examination, transabdominal approach;single or first gestation STAT ----- --------- Patient Location: Inpatient Indication ----- --------- Screening for Anatomic Survey, Previous , Obesity in , Supervision of high risk . History ----- --------- OB History 5. Para 2 [id number] Maternal Assessment ----- --------- Physical Exam Height [...] EFW (oz) 9 oz EFW by: Hadlock ([id number]) Extended Tibia 51.5 mm 30w 5d 47% [employer] Supervisor 4.5 mm CM 4.8 mm 3% Nicolaides [...] Heart / Thorax RVOT view. LVOT view. 0-djsswq-ynquyse view. Aortic arch view. Ductal arch view. [...] SANCHEZ : 2000 SEX: F Accession Number: [id number] ORDERING PHYSICIAN: SONJA RAMOS REFERRING PHYSICIAN: ZHANE BELLA Coding ----- --------- Procedures [id number]: Ultrasound, uterus, real time with imagedocumentation, and maternal evaluation plus detailed anatomic examination, transabdominalapproach;single or first gestation STAT ----- --------- Patient Location: Inpatient Indication ----- --------- Screening for Anatomic Survey, Previous , Obesity in ,Supervision of high risk . History ----- --------- OB History 5. Para 2 [id number] Maternal Assessment ----- --------- Physical Exam Height [...] EFW (oz) 9 oz EFW by: Hadlock ([id number]-FL) Extended Tibia 51.5 mm 30w 5d 47% [employer] Supervisor 4.5 mm CM 4.8 mm 3% Nicolaides [...] Heart / Thorax RVOT view. LVOT view. 7-lyyhgx-jxrrnuu view. Aortic archview. Ductal arch view. Great [...] byprimary OB provider unless otherwise specified by M. Results forwarded to ordering provider so they can follow up with thepatient as necessary. us Sonja Jared DO [facility] [place] ORDERABLES Final Res ult * (ABNORMAL) Valproic acid, depakane (09/19/2024 9:04 PM EDT) Only the most recent of3 resultswithin the time period is included. VALPROIC ACID 31(L) 50 - 100 ug/mL 09/19/2024 9:47 PM EDT [facility] Blood Venous blood / Unknown 09/19/2024 9:04 PM EDT 09/19/2024 9:04 PM EDT Marie Lopez MD LAB BLOOD ORDERABLES Final Resul t Performing Organization Address City/[facility]/ZIP Co de Phone Number [facility] [address] [place] [address], * Ammonia (09/19/2024 9:04 PM EDT) Only the most recent of3 resultswithin the time period is included. AMMONIA 32 18 - 72 umol/L 09/19/2024 10:34 PM EDT [facility] Blood Venous blood / Unknown 09/19/2024 9:04 PM EDT 09/19/2024 9:04 PM EDT Marie Lopez MD LAB BLOOD ORDERABLES Final Resul t [facility] [address] [place] [address], * Syphilis Total (Unknown Syphilis Status) (09/19/2024 2:49 AM EDT) Only the most recent of2 resultswithin the time period is included. SYPHILIS TOTAL <0.2 <=0.8 AI 09/21/2024 3:30 PM EDT [facility] Blood Venous blood / Unknown 09/19/2024 2:49 AM EDT 09/19/2024 2:49 AM EDT Narrative [facility] - 09/21/2024 3:30 PM EDT NON REACTIVE No serologic evidence of infection to Treponema pallidum. Repeat testing may be considered in patients with suspected acute or primary syphilis in 2 to 4 weeks. us Lexus Byrd MD LAB BLOOD ORDERABLES Final Re sult [facility] [address] [place] [address], [place] [phone] * (ABNORMAL) CBC auto differential (09/19/2024 2:49 AM EDT) Only the most recent of4 resultswithin the time period is included. WBC 9.2 4 - 11 x10E9/L 09/19/2024 3:48 AM EDT [facility] RBC Count 3.80 3.8 - 5.2 X10E12/L 09/19/2024 3:48 AM EDT [facility] Hemoglobin 10.3(L) 11.7 - 15.5 g/dL 09/19/2024 3:48 AM EDT [facility] Hematocrit 30.4(L) 35 - 47 % 09/19/2024 3:48 AM EDT [facility] MCV 80 80 - 100 fL 09/19/2024 3:48 AM EDT [facility] MCH 27.2 27 - 34 pg 09/19/2024 3:48 AM EDT [facility] MCHC 34.0 32 - 36 g/dL 09/19/2024 3:48 AM EDT [facility] RDW 13.6 11.5 - 15 % 09/19/2024 3:48 AM EDT [facility] Platelet Count 231 150 - 450 X10E9/L 09/19/2024 3:48 AM EDT [facility] MPV 8.4 7 - 12 fL 09/19/2024 3:48 AM EDT [facility] Neutrophils Relative 74.9 % 09/19/2024 3:48 AM EDT [facility] Lymphocytes Relative 20.2 % 09/19/2024 3:48 AM EDT [facility] Monocytes Relative 4.3 % 09/19/2024 3:48 AM EDT [facility] Eosinophils Relative 0.3 % 09/19/2024 3:48 AM EDT [facility] Basophils Relative 0.3 % 09/19/2024 3:48 AM EDT [facility] Neutrophils Absolute (A) 6.9(H) 1.5 - 6.6 10*3/uL 09/19/2024 3:48 AM EDT [facility] Lymphocytes Absolute 1.9 1.0 - 3.5 10*3/uL 09/19/2024 3:48 AM EDT [facility] Monocytes Absolute 0.4 0.0 - 0.9 10*3/uL 09/19/2024 3:48 AM EDT [facility] Eosinophils Absolute 0.0 0.0 - 0.4 10*3/uL 09/19/2024 3:48 AM EDT [facility] Basophils Absolute 0.0 0.0 - 0.2 10*3/uL 09/19/2024 3:48 AM EDT [facility] Differential Type AUTOMATED DIFFERENTIAL 09/19/2024 3:48 AM EDT [facility] Blood Venous blood / Unknown 09/19/2024 2:49 AM EDT 09/19/2024 2:50 AM EDT us Lexus Byrd MD LAB BLOOD ORDERABLES Final Re sult [facility] [address] [place] [address], [place] [phone] * (ABNORMAL) Comprehensive metabolic panel (09/19/2024 2:49 AM EDT) Only the most recent of2 resultswithin the time period is included. SODIUM 138 134 - 146 mmol/L 09/19/2024 3:57 AM [facility] POTASSIUM 3.5 3.5 - 5.0 mmol/L 09/19/2024 3:57 AM [facility] CHLORIDE 106 98 - 109 mmol/L 09/19/2024 3:57 AM [facility] CARBON DIOXIDE 25 22 - 32 mmol/L 09/19/2024 3:57 AM [facility] ANION GAP 7 5 - 15 mmol/L 09/19/2024 3:57 AM [facility] BLOOD UREA NITROGEN 5 5 - 23 mg/dL 09/19/2024 3:57 AM [facility] CREATININE 0.45 0.40 - 1.00 mg/dL 09/19/2024 3:57 AM [facility] Comment:METHOD TRACEABLE TO IDNY STANDARD GLUCOSE 96 65 - 99 mg/dL 09/19/2024 3:57 AM [facility] CALCIUM 8.1(L) 8.5 - 10.5 mg/dL 09/19/2024 3:57 AM [facility] TOTAL PROTEIN 5.5(L) 6.0 - 8.0 g/dL 09/19/2024 3:57 AM [facility] ALBUMIN 3.0(L) 3.2 - 5.3 g/dL 09/19/2024 3:57 AM [facility] ALKALINE PHOSPHATASE 121 39 - 130 U/L 09/19/2024 3:57 AM [facility] AST 11 <=41 U/L 09/19/2024 3:57 AM [facility] ALT 5 <=31 U/L 09/19/2024 3:57 AM [facility] BILIRUBIN,TOTAL 0.4 0.3 - 1.2 mg/dL 09/19/2024 3:57 AM [facility] EGFR Non-Race Dependent >90 >=60 ml/min/1.7 3sq.m 09/19/2024 3:57 AM EDT [facility] Comment: Reported eGFR is based on the CKD-EPI 2020 equation that does not use a race coefficient. Blood Venous blood / Unknown 09/19/2024 2:49 AM EDT 09/19/2024 2:49 AM EDT us Lexus Byrd MD LAB BLOOD ORDERABLES Final Re sult [facility] [address] [place] [address], [place] [phone] * (ABNORMAL) POCT Nursing Urine Macroscopic UA (09/18/2024 7:24 PM EDT) Only the most recent of2 resultswithin the time period is included. POC Urine Specific [place] 1.015 1.010, 1.015, 1.020, 1.025 09/18/2024 7:20 PM EDT [facility] POC Urine Leukocyte Esterase Moderate(A) Negative 09/18/2024 7:20 PM EDT [facility] POC Urine Nitrite Negative Negative 09/18/2024 7:20 PM EDT [facility] POC Urine pH 7.0 5.0, 6.0, 6.5, 7.0, 7.5, 8.0, 8.5, 5.5 09/18/2024 7:20 PM EDT [facility] POC Urine Protein Negative Negative 09/18/2024 7:20 PM EDT [facility] POC Urine Glucose Negative Negative 09/18/2024 7:20 PM EDT [facility] POC Urine Ketones 80 mg/dL(A) Negative 09/18/2024 7:20 PM EDT [facility] POC Urine Urobilinogen 0.2 E.U./dL 09/18/2024 7:20 PM EDT [facility] POC Urine Bilirubin Negative Negative 09/18/2024 7:20 PM EDT [facility] POC Urine Blood/HGB Negative Negative 09/18/2024 7:20 PM EDT [facility] Urine 09/18/2024 7:24 PM EDT 09/18/2024 7:20 PM EDT us Saroj Carreon DO POINT OF CARE TEST ORDER DONELL Final Result [facility] [address] [place] [address], * Drug Screen, Urine (09/18/2024 6:52 PM EDT) Only the most recent of2 resultswithin the time period is included. AMPHETAMINE/METHAMP Negative Negative 09/18 7:21 PM EDT [facility] Comment:AMPH/METH screening cut off = 1000 ng/mL COCAINE METABOLITE Negative Negative 2024 7:21 PM EDT [facility] Comment:Cocaine screening cu t off value = 300 ng/mL ECSTASY Negative Negative 09/18/2024 7:21 PM EDT [facility] Comment:Ecstasy screening cu t off value = 500 ng/mL METHADONE Negative Negative 09/18/2024 7:21 PM EDT [facility] Comment:Methadone screening cut off value = 300 ng/mL. OPIATES Negative Negative 09/18/2024 7:21 PM EDT [facility] Comment: Opiates screening cut off value = 300 ng/mL This test is used for the detection of codeine, hydrocodone (>1000 ng/mL), morphine and hydromorphone (>900 ng/mL) in urine. OXYCODONE Negative Negative 09/18/2024 7:21 PM EDT [facility] Comment: Oxycodone screening cut off value = 300 ng/mL This test is used for the detection of oxycodone and oxymorphone in urine. PHENCYCLIDINE Negative Negative 09/18/2024 7:21 PM EDT [facility] Comment:Phencyclidine screen ing cut off value = 25 ng/mL CANNABINOIDS Negative Negative 09/18/2024 7:21 PM EDT [facility] Comment:Cannabinoids/THC scr eening cut off value = 50 ng/mL Urine Barbiturates Negative Negative 2024 7:21 PM EDT [facility] Comment:Barbiturates screeni ng cut off value = 200 ng/mL BENZODIAZEPINES Negative Negative 7:21 PM EDT [facility] Comment:Benzodiazepines scre ening cut off value = 200 ng/mL Urine Urine specimen collection, clean catch / Unknown Collection / Unknown 09/18/2024 6:52 PM EDT 09/18/2024 7:00 PM EDT us [employer] DO URINE ORDERABLES Final R esult Performing Organization Address [facility] Co de Phone Number [address] [place] [address], [place] * Light Blue Top (09/18/2024 4:55 PM EDT) Extra Tube Auto Resulted 09/18/2024 6:01 PM EDT [facility] Blood Venous blood / Unknown 09/18/2024 4:55 PM EDT 09/18/2024 5:00 PM EDT [employer] DO LAB BLOOD ORDERABLES Fin al Result Performing Organization Address City/[facility] Co de Phone Number [address] [place] [address], [place] * (ABNORMAL) Iron and TIBC (09/18/2024 4:55 PM EDT) IRON 62 50 - 170 ug/dL 09/18/2024 8:57 PM EDT [facility] TRANSFERRIN 400(H) 168 - 336 mg/dL 09/18/2024 8:57 PM EDT [facility] IRON BINDING 560(H) 250 - 425 ug/dL 09/18/2024 8:57 PM EDT [facility] IRON SATURATION 11(L) 15 - 50 % SATURATION 09/18/2024 8:57 PM EDT [facility] Blood Venous blood / Unknown 09/18/2024 4:55 PM EDT 09/18/2024 5:00 PM EDT us [employer] LAB BLOOD ORDERABLES Fin al Result [facility] [address] [place] [address], [place] [phone] * Ethanol (09/18/2024 4:55 PM EDT) ETHANOL <0.010 <=0.080 g/dL 09/18/2024 5:21 PM EDT [facility] Comment: This report is intended for use in clinical monitoring or management of patients. Blood 09/18/2024 4:55 PM EDT 09/18/2024 5:00 PM EDT us [employer] LAB BLOOD ORDERABLES Fin al Result Performing Organization Address City/[facility] Co de Phone Number [facility] [address] [place] [address], [place] * (ABNORMAL) Acetaminophen level (09/18/2024 4:55 PM EDT) ACETAMINOPHEN 6.6(L) 10.0 - 30.0 ug/mL 09/18/2024 5:21 PM EDT [facility] Blood 09/18/2024 4:55 PM EDT 09/18/2024 5:00 PM EDT Narrative [facility] - 09/18/2024 5:21 PM EDT Reference ranges are for therapeutic limits. [employer] LAB BLOOD ORDERABLES Fin al Result Performing Organization Address City/State/[facility] Co de Phone Number [address] [place] [address], [place] * Salicylate level (09/18/2024 4:55 PM EDT) SALICYLATE <4.0 2.0 - 25.0 mg/dL 09/18/2024 5:21 PM EDT [facility] Blood 09/18/2024 4:55 PM EDT 09/18/2024 5:00 PM EDT Narrative [facility] - 09/18/2024 5:21 PM EDT Reference ranges are for therapeutic limits. us Saroj Carreon DO LAB BLOOD ORDERABLES Fin al Result Performing Organization Address [facility] de Phone Number [address] [place] [address], [place] * ECG 12 lead (09/18/2024 4:43 PM EDT) 09/18/2024 4:43 PM EDT Narrative [facility] - 09/18/2024 9:43 PM EDT us Saroj Carreon DO ECG ORDERABLES Final Re sult Performing Organization Address [facility] de Phone Number [email or web address] * Critical Care (09/18/2024 4:27 PM EDT) [...] to treatment and review of old charts Saroj Carreon DO PROCEDURE/MINOR SURGICAL ORDERABLES Final Result * Glucose 1h post 50g load (09/01/2024 3:45 PM EDT) [facility] GLUCOSE, 1HR POST 50GM LOAD 126 65 - 139 mg/dL 09/01/2024 10:25 PM EDT [facility] Blood Venous blood / Unknown Venipuncture / Unknown 09/01/2024 3:45 PM EDT 09/01/2024 4:30 PM EDT [facility] BLOOD ORDERABLES Final Resu lt Performing Organization Address City/[facility]/ZIP Co de Phone Number [facility] [address] [place] [address], * Hepatitis C(HCV) Ab w/ Reflex to PCR (07/27/2024 3:10 PM EDT) [facility] Anti HCV w/ PCR reflex Non-Reacti ve Non-Reacti ve^Non-[place] ctive 07/28/2024 12:32 AM EDT [facility] Comment: NEW TEST METHOD NOTE If recent infection suspected, recommend repeat testing (>2 months). Gpewqh-jd-llcynd ratio is <1.00. Serum / Unknown 07/27/2024 3 :10 PM EDT 07/27/2024 3:12 PM EDT [employer] DO LAB BLOOD ORDERABLES Final Resu lt [facility] [address] [place] [address] * AFP Single Marker Scrn, Maternal, Serum (07/27/2024 3:10 PM EDT) [facility] AFP Single Marker Scrn, Maternal, Serum SEE COMMENTS 07/29/2024 03:00 PM 07/29/2024 4:00 PM EDT [facility] Comment: NOTE Test Result Flag Unit RefValue [...] repeat testing Initial testing Physician Phone Number [phone] GENERAL TEST INFORMATION See Note This screening [...] its performance characteristics determined by [facility] in a manner consistent with CLIA requirements. This test has not been cleared or approved by the U.S. Food and Drug Administration. Test Performed by: [facility] [facility] [address] [place] [id number] Radiology Services Manager: Gamaliel Au Ph.D.; IA# [id number] Serum / Unknown 07/27/2024 3 :10 PM EDT 07/27/2024 3:12 PM EDT Zhane R Jena DO LAB BLOOD ORDERABLES Final Resu lt Performing Organization Address [facility] Co de Phone Number [address] [place] [place] [address] * Rubella antibody, IgG (07/27/2024 3:10 PM EDT) Rubella IgG 15 IU/mL 07/28/2024 11:59 AM EDT [facility] Comment: Interpretation-------- <8 NEGATIVE-considered Not Immune 8-9 EQUIVOCAL-consider retesting with new specimen >9 POSITIVE-considered Immune Serum / Unknown 07/27/2024 3 :10 PM EDT 07/27/2024 3:12 PM EDT us Zhane R [employer] DO LAB BLOOD ORDERABLES Final Resu lt Performing Organization Address [facility] Co de Phone Number [facility] [address] [place] [address] * Hepatitis B surface antigen (07/27/2024 3:10 PM EDT) Hepatitis B Surface Ag Non-Reacti ve Non-Reacti ve^Non-[place] ctive 07/28/2024 12:29 AM EDT [facility] Comment:NEW TEST METHOD Serum / Unknown 07/27/2024 3 :10 PM EDT 07/27/2024 3:12 PM EDT Zhane R Jena DO LAB BLOOD ORDERABLES Final Resu lt [facility] [address] [place] [address] * TSH (07/27/2024 3:10 PM EDT) Pathologist [facility] TSH 1.68 0.49 - 4.67 uIU/mL 07/27/2024 10:23 PM EDT [facility] 07/27/2024 3:10 PM EDT 07/27/2024 3:12 PM EDT us Zhane R Jena DO LAB BLOOD ORDERABLES Final Resu lt Performing Organization Address [facility]/ZIP Co de Phone Number [facility] [address] [place] [address] * Hemoglobin A1c (07/27/2024 3:10 PM EDT) [facility] Hemoglobin A1C 4.6 4.4 - 5.6 % 07/27/2024 10:13 PM EDT [facility] Comment: NOTE ADA Guidelines Result HgbA1c Normal : less than 5.7 % Prediabetes : 5.7 % to 6.4 % Diabetes : > 6.4 % Use with caution in patients with abnormal hemoglobin variants as the half-life of red blood cells and in vivo glycation rates are affected. Average glucose 85 mg/dL 10:13 PM EDT [facility] 07/27/2024 3:10 PM EDT 07/27/2024 3:12 PM EDT us Zhane R Jena DO LAB BLOOD ORDERABLES Final Resu lt Performing Organization Address City/[facility]/ZIP Co de Phone Number [facility] [address] [place] [address] * Ultrasound transabdominal follow up per fetus (07/06/2024 12:14 PM EST) Anatomical Region Laterality Modality OB-CHIEF ORTHOPTIST Ultrasound 07/07/2024 2:51 PM EST Narrative 07/07/2024 2:54 PM EST HISTORY: Vaginal bleeding in COMPARISON: 05/15/2024 EVALUATION: [...] Obi Shah MD on 07/07/2024 2:54 PM Procedure Note Obi Shah MD - 07/07/2024 HISTORY: Vaginal bleeding in COMPARISON: 05/15/2024 EVALUATION: [...] Obstetrical ultrasound, while an excellent imaging modality forthe fetus, cannot detect all structural abnormalities all the time. IMPRESSION: * Single live intrauterine with detailed biometric measurementsprovided above. Finalized by Obi Shah MD on 07/07/2024 2:54 PM Zhane Bella DO [facility] US ORDERABLES Final Result from Last [address] [place] [address] [place] [address] MEDICAID [facility] MEDICAID Advance Directives * Full Code (Latest Code Status on File) Date Activated Date Inactivated Comments 09/22/2024 9:44 AM 09/24/2024 2:44 PM * Full Code Date Activated Date Inactivated Comments 09/18/2024 11:15 PM 09/22/2024 3:57 AM * Full Code Date Activated Date Inactivated Comments 02/03/2023 12:25 PM 02/03/2023 11:47 PM * Full Code Date Activated Date Inactivated Comments 01/24/2023 1:55 PM 01/28/2023 3:48 PM * Full Code Date Activated Date Inactivated Comments 12/22/2022 7:11 AM 12/23/2022 7:06 PM Care Teams Affiliate Marketing Coordinator Relationship Specialty Start Date End Date No Pcp, [place] [id number] PCP - General Family Medicine 09/01/24
--- OUTSIDE RECORDS SUMMARY | 2024-10-03 18:59 | XMS_ITS | Encounter Summary ---
Author Organization [facility] Address [address] [place] [address] Care Team Providers Care Manager Mall Name Role Phone Unavailable Primary Care Provider Unavailabl e Encounter Details Date Type Department Care Team (Late st Contact Info) Description 12/15/2023 Clinisync Result Encounter [facility] External Department Unsolicited Zhane Bella DO [address] [place] [address] Social History Tobacco Use Types Packs/Day Years [...] AM EDT Routine [facility] OB [address] [place] [address] Mya Kaplan PA [address] [address] documented as of this encounter Procedures Procedure Name Priority Date/Time Associated Diagnosis Comments CT ANGIOGRAM CHEST 12/15/2023 1: 32 PM EDT documented in this encounter Results * CT angiogram chest (12/15/2023 1:32 PM EDT) Anatomical Region Laterality Modality Body, Chest Computed Tomogra phy 12/15/2023 1:32 PM EDT Narrative 12/15/2023 1:35 [place] [address] CT Scan Report Signed Patient: GEORGIE POND MR#: [id number] : 2000 Acct:[id number] Age/Sex: 23 / F ADM Date: Loc: [facility] 258-[address]: Zhane Bella D.O. Ordering Physician: Zhane Bella D.O. Date of Service: 12/15/23 Procedure(s): CT angio chest Accession Number(s): [id number] cc: Physician,Non-Staff [place] [address] Patient Name: GEORGIE POND MRN: [id number] date: 2000 Sex: F Assigned Patient Location: [facility] Current Patient Location: [facility] Accession/Order Number: [id number] Exam Date: 12/15/2023 11:40 Report Date: 12/15/2023 13:32 At the request of: ZHANE BELLA Procedure: CT angio chest CT angio chest CLINICAL: R/O PE. patient with worsening chest pain. COMPARISON: No prior chest studies are available. TECHNIQUE: Thin section axial images were obtained from thoracic inlet to the diaphragms following the administration of intravenous contrast. CT angiographic reconstructions of the pulmonary arteries including multiple intensity projections in coronal and sagittal planes were performed. Dose reduction: mA and/or kV are were adjusted by automated exposure control software based upon patients height and weight. FINDINGS: Thoracic inlet and axillary structures are intact. No mediastinal or hilar adenopathy by CT criteria. Heart size is slightly enlarged. No significant coronary artery calcifications. No pericardial effusion. Limited upper abdominal images show no acute findings. Pulmonary arterial tree is opacified and does not show filling defect to indicate pulmonary embolism. Lung windows show no airspace consolidation, pleural effusion or pneumothorax. No suspicious pulmonary nodule. Central airways are patent. No osseous traumatic or destructive lesion is seen. CT/CT angio chest IMPRESSION: 1. No evidence of pulmonary embolism. 2. No acute intrathoracic findings. Electronically authenticated by: JEAN CONDE Date: 12/15/2023 13:32 Dictated By: Jean Hodgson M.D. Signed By: 12/15/23 1335 DD/ 1332 TD/TT: Gravity Prospecting Operator Helper: Procedure Note Radiology, Radiologist, - 12/15/2023 [place] [address] CT Scan Report Signed Patient: GEORGIE POND TMR#: [id number] : 2000Acct:[id number] Age/Sex: 23 / FADM Date: Loc: [facility] 258-[address]: Zhane Bella D.O. Ordering Physician: Zhane Bella D.O. Date of Service: 12/15/23 Procedure(s): CT angio chest Accession Number(s): [id number] cc: Physician,Non-Staff [place]ana [place] [address] Patient Name: GEORGIE POND MRN: [id number] date: 2000 Sex: F Assigned Patient Location: [facility] Current Patient Location: [facility] Accession/Order Number: [id number] Exam Date: 12/15/2023 11:40 Report Date: 12/15/2023 13:32 At the request of: ZHANE BELLA Procedure: CT angio chest CT angio chest CLINICAL: R/O PE. patient with worsening chest pain. COMPARISON: No prior chest studies are available. TECHNIQUE: Thin section axial images were obtained from thoracic inlet tothe diaphragms following the administration of intravenous contrast. CT angiographic reconstructions of the pulmonary arteries including multiple intensity projections in coronal and sagittal planes were performed. Dose reduction: mA and/or kV are were adjusted by automated exposurecontrol software based upon patients height and weight. FINDINGS: Thoracic inlet and axillary structures are intact. Nomediastinal or hilar adenopathy by CT criteria. Heart size is slightly enlarged. No significant coronary artery calcifications. No pericardial effusion. Limited upper abdominal images show no acute findings. Pulmonary arterial tree is opacified and does not show filling defect to indicate pulmonary embolism. Lung windows show no airspace consolidation, pleural effusion orpneumothorax. No suspicious pulmonary nodule. Central airways are patent. No osseous traumatic or destructive lesion is seen. CT/CT angio chest IMPRESSION: 1. No evidence of pulmonary embolism. 2. No acute intrathoracic findings. Electronically authenticated by: JEAN CONDE Date: 12/15/2023 13:32 Dictated By: Jean Hodgson M.D. Signed By:12/15/23 1335 DD/ 1332 TD/TT: [employer] Prospecting Operator Helper: Zhane Bella DO [facility] CT PROCEDURES Final Result documented in this encounter Visit Diagnoses Not on filedocumented in this encounter
--- OUTSIDE RECORDS SUMMARY | 2024-10-03 18:59 | XMS_ITS | Encounter Summary ---
Author Organization [facility] Address [address] [place] [address] Care Team Providers Care Pier Master Name Role Phone Unavailable Primary Care Provider Unavailabl e Encounter Details Date Type Department Care Team ([facility] Contact Info) Description 12/13/2023 Abstract [facility] FNR OB [address] [place] [address] Isadora Martin, CNM [address] [place], [place] [id number] Social History Tobacco Use Types Packs/Day Years Used Date Smoking Tobacco: Never Assessed Comments Yes Sex and Gender Information Value Date Recorded Sex Assigned at Not on file Legal Sex Female 11:47 PM EDT Gender Identity Not on file Sexual Orientation Not on file documented as of this encounter Plan of Treatment Upcoming Encounters Date Type Department Care Team ([facility] Contact Info) Description 10/05/2024 10:30 AM EDT Routine [facility] B[facility] OB [address] [place] [phone] Mya Kaplan PA [address] [place] [address] documented as of this encounter Visit Diagnoses Not on filedocumented in this encounter
--- OUTSIDE RECORDS SUMMARY | 2024-10-03 18:59 | XMS_ITS | Encounter Summary ---
Author Organization [facility] Address [address] [facility] [place] [address] Care Team Providers Care Helicopter Repairer Name Role Phone Unavailable Primary Care Provider Unavailabl e Encounter Details Date Type Department Care Team (Late Contact Info) Description 08/05/2023 Abstract [facility] BCP OB [address] [phone] Kimi Olsen LPN [address] [facility] Social History Tobacco Use Types Packs/Day Years [...] Description 10/05/2024 10:30 AM EDT Routine [facility] OB [address] [phone] Mya Kaplan PA [address] [place], [place] [phone] documented as of this encounter Visit Diagnoses Not on filedocumented in this encounter
--- OUTSIDE RECORDS SUMMARY | 2024-10-03 18:59 | XMS_ITS | Encounter Summary ---
Author Organization [facility] Address [address] [place] [address] Care Team Providers Care Towerman Name Role Phone Unavailable Primary Care Provider Unavailabl e Reason for Visit * Reason Comments Med Refill Encounter Details Date Type Department Care Team (Late Contact Info) Description 12/15/2023 Refill [facility] OB [address] [place] [phone] Osmany Bella DO [address] [place], [facility]11 Flank pain Social History Tobacco Use Types Packs/Day Years Used Date Smoking Tobacco: Never Assessed Comments Yes Sex and Gender Information Value Date Recorded Sex Assigned at Not on file Legal Sex Female 11:47 PM EDT Gender Identity Not on file Sexual Orientation Not on file documented as of this encounter Miscellaneous Notes * Telephone Encounter - Marie Cuellar LPN - 12/16/2023 7:27 AM EDT Medication refused due to failing protocol. Requested Prescriptions Pending Prescriptions Disp Refills nitrofurantoin, macrocrystal-monohydrate, (Macrobid) 100 MG capsule [Pharmacy Med Name: NITROFURANTOIN MONO-MCR 100 MG] 20 capsule 0 Sig: take 1 capsule by mouth every morning and at bedtime for 10 days There is no refill protocol information for this order documented in this encounter Plan of Treatment Upcoming Encounters Date Type Department Care Team (Late Contact Info) Description 10/05/2024 10:30 AM EDT Routine [facility] B[facility] OB [address] [place] [phone] Mya Kaplan PA [address] [place] [address] documented as of this encounter Visit Diagnoses Diagnosis Flank pain Abdominal pain, unspecified site documented in this encounter
--- OUTSIDE RECORDS SUMMARY | 2024-10-03 18:59 | XMS_ITS | Encounter Summary ---
Author Organization [facility] Address [address] [facility] [place] [address] Care Team Providers Care Sleep Technologist Name Role Phone Unavailable Primary Care Provider Unavailabl e Encounter Details Date Type Department Care Team (Late Contact Info) Description 08/28/2024 Results Follow-Up [facility] [address] [place] [address] Marie Cuellar LPN [address] [place] [address] Social History Tobacco Use Types Packs/Day Years Used Date Smoking Tobacco: Never Assessed Estimated Date of Delivery Comme nts Yes 11/24/2024 Based on Ultraso und Sex and Gender Information Value Date Recorded Sex Assigned at Not on file Legal Sex Female 11:47 PM EDT Gender Identity Not on file Sexual Orientation Not on file documented as of this encounter Miscellaneous Notes * Result Encounter Note - Marie Cuellar LPN - 08/28/2024 12:33 PM EDT Attempted to call pt but she did not answer. Mailbox was full so I was unable to leave message. Will try again. documented in this encounter Plan of Treatment Upcoming Encounters Date Type Department Care Team ([facility] Contact Info) Description 10/05/2024 10:30 AM EDT Routine [facility] [address] [place] [address] Mya Kaplan PA [address] [facility] [place] [address] documented as of this encounter Visit Diagnoses Not on filedocumented in this encounter
--- OUTSIDE RECORDS SUMMARY | 2024-10-03 18:59 | XMS_ITS | Encounter Summary ---
Author Organization [facility] Address [address] [place] [address] Care Team Providers Care Refrigeration Tech Name Role Phone Unavailable Primary Care Provider Unavailabl e Encounter Details Date Type Department Care Team (Late st Contact Info) Description 10/02/2024 Telephone [facility] [address] [place] [address] Christie Wiley LPN Social History Tobacco Use Types Packs/Day Years [...] encounter Miscellaneous Notes * Telephone Encounter - Christie Wiley LPN - 10/02/2024 10:27 AM EDT 09/30/24 @ 3:51pm Kristin Palmer from [employer] called and left message inquiring if patient is currently to be on bedrest. Kristin stated she will be out of the office the remainder of the week and office would be able to reach out to Isis Rodriguez @ [phone]. 10/02/24 @ 10:25am Called [employer] and spoke with Isis Rodriguez. Isis was informed that at this timeDrCynthia Bella will not be changing patients status of bedrest until reassessed at appointment on [id number]/2024. Isis verbalized understanding. Christie Guerra LPN documented in this encounter Plan of Treatment Upcoming Encounters Date Type Department Care Team (Late st Contact Info) Description 10/05/2024 10:30 AM EDT Routine [facility] [address] [place] [address] Mya Kaplan PA [address] [facility] [address] documented as of this encounter Visit Diagnoses Not on filedocumented in this encounter
--- OUTSIDE RECORDS SUMMARY | 2024-10-03 18:59 | XMS_ITS | Encounter Summary ---
Author Organization [facility] Address [address] [place] [address] Care Team Providers Care Tumbler Dyeing Machine Operator Name Role Phone Unavailable Primary Care Provider Unavailabl e Encounter Details Date Type Department Care Team (Late Contact Info) Description 11/29/2023 Abstract [facility] [address] [facility] [place] [phone] Marie Cuellar LPN [address] [place] [id number] Social History Tobacco Use Types Packs/Day Years [...] AM EDT Routine [facility] [address] [facility] [place] [phone] Mya Kaplan PA [address] [facility] [address] [place], [place] [id number] documented as of this encounter Visit Diagnoses Not on filedocumented in this encounter
--- OUTSIDE RECORDS SUMMARY | 2024-10-03 18:59 | XMS_ITS | Encounter Summary ---
Author Organization [facility] Address [address] [place] [address] Care Team Providers Care Medical Manager Name Role Phone Unavailable Primary Care Provider Unavailabl e Encounter Details Date Type Department Care Team (Late st Contact Info) Description 12/10/2023 Abstract [facility] [address] [place] [address] Christie Wiley LPN Social History Tobacco [...] Description 10/05/2024 10:30 AM EDT Routine [facility] [address] [place] [address] Mya Kaplan PA [address] [place] [address] [place], [place] [id number] documented as of this encounter Visit Diagnoses Not on filedocumented in this encounter
--- OUTSIDE RECORDS SUMMARY | 2024-10-03 18:59 | XMS_ITS | Encounter Summary ---
Author Organization [facility] Address [address] [facility] [place] [address] Care Team Providers Care Skull Chopper Name Role Phone Unavailable Primary Care Provider Unavailabl e Encounter Details Date Type Department Care Team (Late st Contact Info) Description 12/11/2023 Abstract [facility] [address] [facility] [phone] Osmany Bella DO [address] [facility] [address] [place], [place] [id number] Social History Tobacco Use Types Packs/Day Years [...] Description 10/05/2024 10:30 AM EDT Routine [facility] [address] [facility] [place] [phone] Mya Kaplan PA [address] [facility] [address] [place], [place] [id number] documented as of this encounter Visit Diagnoses Not on filedocumented in this encounter
--- OUTSIDE RECORDS SUMMARY | 2024-10-03 18:59 | XMS_ITS | Encounter Summary ---
Author Organization [facility] Address [address] [place] [address] Care Team Providers Care Parts Person Name Role Phone Unavailable Primary Care Provider Unavailabl e Reason for Visit * Reason Comments Med Refill Encounter Details Date Type Department Care Team (Late Contact Info) Description 12/15/2023 Refill [facility] [address] [place] [phone] Osmany Bella [facility] Irma [place], [facility] Nausea Social History Tobacco Use Types Packs/Day Years Used Date Smoking Tobacco: Never Assessed Comments Yes Sex and Gender Information Value Date Recorded Sex Assigned at Not on file Legal Sex Female 11:47 PM EDT Gender Identity Not on file Sexual Orientation Not on file documented as of this encounter Miscellaneous Notes * Telephone Encounter - Marie Cuellar LPN - 12/16/2023 7:26 AM EDT Medication refused due to failing protocol. Requested Prescriptions Pending Prescriptions Disp Refills metoclopramide (Reglan) 10 MG tablet [Pharmacy Med Name: METOCLOPRAMIDE 10 MG TABLET] 1 tablet 0 Sig: take 1 tablet by mouth every morning 1 tablet every evening and 1 tablet BEFORE BEDTIME There is no refill protocol information for this order documented in this encounter Plan of Treatment Upcoming Encounters Date Type Department Care Team (Late Contact Info) Description 10/05/2024 10:30 AM EDT Routine [facility] [address] [place] [address] Mya Kaplan PA [address] [facility] [place] [address] documented as of this encounter Visit Diagnoses Diagnosis Nausea Nausea alone documented in this encounter
--- OUTSIDE RECORDS SUMMARY | 2024-10-03 18:59 | XMS_ITS | Encounter Summary ---
Author Organization [employer] tem Address [id number] [address] [place] [address] Care Team Providers Care Equipment Operator Wage Hand Name Role Phone No Pcp, No Pcp Primary Care Provider Unavailabl e Encounter Details Date Type Department Care Team (Latest Contact Info) Description 09/22/2024 Travel Social History Tobacco Use Types Packs/Day Years [...] often do you attend chur ch or bahai services? Never 03/26/2021 Do you belong to any clubs o r organizations such as christian groups, unions, fraternal or athletic groups, or [...] Answer Date Recorded Total Score 4 08/29/2023 [facility] - [...] things needed for daily living? No 09/22/2024 [place] Depression Scale Answer Date Recorded [place] Depression Scale Total 13 09/12/2023 The thought [...] Recorded Do you need help finding a [facility] career center and/or a training [...] a purpose and direction in my life. Neith er Agree nor Disagree 03/26/2021 Education Answer [...] on file documented as of this encounter Functional Status * Question Answer Date of Assessment Author Functional Status Independent 09/22/2024 8:00 PM EDT Desiree Tran MHP * Intimate Partner Violence Question Answer Date of Assessment Author Within the last year, have y ou been humiliated or emotionally abused in other ways by your partner or ex-partner? No 09/22/2024 4:00 AM Mona Mcgregor RN Within the last year, have y ou been afraid of your partner or ex-partner? No 09/22/2024 4:00 AM Mona Mcgregor, TENA Within the last year, have y ou been raped or forced to have any kind of sexual activity by your partner or ex-partner? No 09/22/2024 4:00 AM Mona Mcgregor, TENA Within the last year, have y ou been kicked, hit, slapped, or otherwise physically hurt by your partner or ex-partner? No 09/22/2024 4:00 AM Mona Mcgregor, TENA documented as of this encounter Plan of [...] documented as of this encounter Care Teams Equipment Operator Wage Hand Relationship Specialty Start Date End Date No Pcp, No Pcp RYLIE Paige [id number] PCP - General Family Medicine 09/01/24 documented as of this encounter
--- OUTSIDE RECORDS SUMMARY | 2024-10-03 18:59 | XMS_ITS | Clinical Summary ---
Author Organization [facility] Address [address] [place] [address] Care Team Providers Care Supervisor [employer] Name Role Phone Unavailable Primary Care Provider Unavailabl e Allergies No known active allergies Medications MV & Min w/FA-DHA ( Gummies) 0.18-25 MG chewable tabletIndication s:Vaginal bleeding affecting early Chew 1 each Daily 30 tablet 11 06/02/2024 Active Active Problems Problem Noted Date Diagnosed Date Missed period 10/16/2022 Gastroesophageal reflux dise ase with esophagitis without hemorrhage 08/03/2021 Acute cystitis with hematuria 07/06/2021 Dysuria 07/06/2021 Episode of recurrent major depressive disorder 0 07/06/2021 Advice given about COVID-19 virus by telephone 1 05/06/2020 Encounter for routine child health examination without abnormal findings 08/22/2020 Acute back pain with sciatica, right 06/24/2019 Lumbar spine pain 06/02/2019 Slow transit constipation 03/12/2019 Estimated Date of Delivery Comme nts Yes 11/24/2024 Based on Ultraso und Encounters Date Type Department Care Team Description 10/02/2024 Telephone [facility] [address] [place] [address] Christie Wiley LPN 09/21/2024 Telephone [facility] [address] [place] [address] Christie Wiley LPN 2024 Telephone [facility] [address] [place] [address] Zhane Bella DO 09/02/2024 2:40 PM EDT Routine [facility] [address] [place], [place] [address] [address] Zhane Bella DO 28 weeks gestation of 09/02/2024 Clinisync Result Encounter [facility] External Department Unsolicited Zhane Bella, DO 09/02/2024 Clinisync Result Encounter [facility] External Department Unsolicited Zhane Bella, DO 09/02/2024 Clinisync Result Encounter [facility] External Department Unsolicited Zhane Bella, DO 09/01/2024 Telephone [facility] [address] [place] [address] [place] [address] Christie Wiley LPN 08/28/2024 Results Follow-Up [facility] [address] [place] [address] Marie Cuellar, CHANGE MANAGEMENT CONSULTANT 08/14/2024 Refill [facility] [address] [place] [address] [place] [address] Mayra Thompson MA BV (bacterial vaginosis) 08/14/2024 Telephone [facility] [address] [place] [address] [place] [address] Mayra Thompson MA 08/12/2024 2:50 PM EDT Routine [facility] [address] [place] [address] [place] [address] Zhane Bella, Well woman exam with routine gynecological exam; Vaginal discharge; STD exposure; Missed menses; , unspecified gestational age; Diabetes mellitus screening; Flank pain 08/12/2024 Clinisync Result Encounter [facility] External Department Unsolicited Zhane Bella, DO 08/12/2024 Bamboo flowsheet [facility] [address] [place], [place] [address] [address] Zhane Bella, DO 07/28/2024 2:30 PM EDT Ancillary Procedure [facility] [place] [address] Screening, , for anatomic survey 07/16/2024 8:30 AM EDT Initial [facility] [place] [address] [place] [address] GA: 21w2d 07/07/2024 Abstract [facility] [place] [address] Zhane Bella DO 07/07/2024 External Result Encounter [facility] [place] [address] [place] [address] Zhane Bella DO from Last 3 Months Family History Relation Name Status Comments Brother 1 Alive Brother 2 Alive Father Alive Mother Alive Sister Alive Social History Tobacco Use Types Packs/Day Years Used Date Smoking Tobacco: Never Assessed Estimated Date of Delivery Comme nts Yes 11/24/2024 Based on Ultraso und Sex and Gender Information Value Date Recorded Sex Assigned at Not on file Legal Sex Female 11:47 PM EDT Gender Identity Not on file Sexual Orientation Not on file Last Filed Vital Signs Vital Sign Reading Time Taken Comments Blood Pressure 106/58 09/02/2024 3:09 PM EDT Pulse - - Temperature - - Respiratory Rate - - Oxygen Saturation - - Inhaled Oxygen Concentration - - Weight 82.4 kg (181 lb 12 oz) 09/02/2024 3:09 PM EDT Height - - Body Mass Index - - Plan of Treatment Upcoming Encounters Date Type Department Care Team (Late st Contact Info) Description 10/05/2024 10:30 AM EDT Routine [facility] [place] [address] [place] [address] Mya Kaplan PA [address] [place] [address] [place], [place] [id number] Health Maintenance Due Date Last Done Comments Influenza Vaccine (Season Ended) 2025 03/12/2019, 03/13/2007, 02/25/2006 Procedures Procedure Name Priority Date/Time Associated Diagnosis Comments CULTURE, URINE, ROUTINE Routine 10/02/2024 11:44 AM EDT Missed menses POCT URINALYSIS DIPSTICK Routine 09/02/2024 3:18 PM EDT 28 weeks gestation of US OB CERVICAL LENGTH 09/02/2024 11:52 AM EDT US OB PLACENTA 09/02/2024 11:52 AM EDT [facility] URINE MICROSCOPIC ONLY Routine 09/02/2024 11:20 AM EDT [facility] UA (CLEAN/CATCH) FOREST MANAGEMENT TEACHER/MICRO IF IND. Routine 09/02/2024 11:20 AM EDT CBC WITH AUTO DIFFERENTIAL Routine 09/01/2024 3:48 PM EDT POCT URINALYSIS DIPSTICK Routine 08/12/2024 4:46 PM EDT Well woman exam with routine gynecological exam RECURRENT VAGINITIS (HTRX) Routine 08/12/2024 4:11 PM EDT IGP,APTIMA HPV,AGE GDLN Routine 08/12/2024 2:58 PM EDT US OB 14+ WEEKS ANATOMY SCAN Routine 07/28/2024 3:42 PM EDT Screening, , for anatomic survey AFP SINGLE MARKER SCRN, MATERNAL,SERUM ([facility]) Routine 07/27/2024 3:10 PM EDT SYPHILIS TOTAL ([facility]) Routine 07/27/2024 3:10 PM EDT RUBELLA AB (IGG), IMMUNE STATUS Routine 07/27/2024 3:10 PM EDT HEPATITIS C ANTIBODY Routine 07/27/2024 3:10 PM EDT HEPATITIS B SURFACE ANTIGEN W/REFL CONFIRM Routine 07/27/2024 3:10 PM EDT DRUG SCREEN, URINE Routine 07/27/2024 3: 10 PM EDT TSH ([facility]) Routine 07/27/2024 3:10 PM EDT HEMOGLOBIN A1C Routine 07/27/2024 3:10 PM EDT CBC WITH AUTO DIFFERENTIAL Routine 07/27/2024 3:10 PM EDT US OB FOLLOW UP TRANSABDOMINAL APPROACH 07/07/2024 2:55 PM EST from Last 3 Months Results * Urine culture (10/02/2024 11:44 AM EDT) Urine Urine specimen obtained by clean catch procedure / Unknown Zhane Jena DO LAB MICROBIOLOGY - GENERAL ORDER DONELL Final Result EXTERNAL LAB * (ABNORMAL) POCT urinalysis dipstick manually resulted (09/02/2024 3:18 PM EDT) Only the most recent of2 resultswithin the time period is included. Color, UA Yellow Clarity, UA Clear Glucose, UA Negative Negative - 2000(110) ++++ mg/dL Bilirubin, UA Negative Negative - 4(70) +++ mg/dL Ketones, UA Negative Negative - 160(16) ++++ mg/dL Spec Grav, UA 1.025 1 - 1.03 Blood, UA Positive Negative - 50 Ayden/mcL Comment:Trace-intact pH, UA 6.0 5 - 9 Protein, UA Positive Negative - 2000(20) ++++ mg/dL Comment:30mg/dL Urobilinogen, UA 0.2 0.2 - 12 mg/dL Leukocytes, UA Positive Negative - 500+++ Caleb/mcL Comment:Large Nitrite, UA Negative Negative - Positive Urine 09/02/2024 3:18 PM EDT Zhane Jena DO POINT OF CARE TEST ENTER/EDIT OR DERABLES Final Result * US OB PLACENTA (09/02/2024 11:52 AM EDT) Anatomical Region Laterality Modality Other 09/02/2024 11:5 2 AM EDT Narrative 09/02/2024 11:[place] [address] Ultrasound Report Signed Patient: LAURA POND MR#: [id number] : 2000 Acct:[id number] Age/Sex: 23 / F ADM Date: Loc: [facility] 258-[address]: Zhane Bella D.O. Ordering Physician: Zhane Bella D.O. Date of Service: 09/02/24 Procedure(s): US OB placenta Accession Number(s): [id number] cc: Zhane Bella D.O.; Physician,Non-Staff [place] [address] Patient Name: LAURA POND MRN: [facility]:[id number] date: 2000 Sex: F Assigned Patient Location: [facility] Current Patient Location: [facility] Accession/Order Number: [id number] Exam Date: 09/02/2024 11:49 Report Date: 09/02/2024 11:52 At the request of: ZHANE BELLA DO Procedure: US OB cervical length Placenta ultrasound, cervical ultrasound. Reason for exam: Bleeding. COMPARISON: None. FINDINGS: Transabdominal imaging of the gravid uterus was obtained. FINDINGS: Single live intrauterine with heart rate 1 47 bpm. presentation is cephalic at time of scanning. The placenta is posterior and fundal in location without focal abnormality. Cervical length measures 4.8 cm without evidence of funneling. US/US OB placenta IMPRESSION: No placental or cervical abnormality is seen. Impression dictated by: Rufus Garcia Jr., D.O. 09/02/2024 11:52 AM Dictation Location: [place] [address] Electronically authenticated by: [id number] Y Date: 09/02/2024 11:52 Dictated By: Rufus Garcia M.D. Signed By: 09/02/24 1155 DD/ 1152 TD/TT: Environmental Protection Geologist: Procedure Note Radiology, Radiologist, MD - 09/02/2024 [place] [address] Ultrasound Report Signed Patient: LAURA POND TMR#: [id number] : 2000Acct:[id number] Age/Sex: 23 / FADM Date: Loc: [facility] 258-[address]: Zhane Bella D.O. Ordering Physician: Zhane Bella D.O. Date of Service: 09/02/24 Procedure(s): US OB placenta Accession Number(s): [id number] cc: Zhane Bella D.O.; Physician,Non-Staff [place] [address] Patient Name: LAURA POND MRN: [id number] date: 2000 Sex: F Assigned Patient Location: [facility] Current Patient Location: [facility] Accession/Order Number: [id number] Exam Date: 09/02/2024 11:49 Report Date: 09/02/2024 11:52 At the request of: ZHANE BELLA DO Procedure: US OB cervical length Placenta ultrasound, cervical ultrasound. Reason for exam: Bleeding. COMPARISON: None. FINDINGS: Transabdominal imaging of the gravid uterus was obtained. FINDINGS: Single live intrauterine with heart rate 1 47bpm. presentation is cephalic at time of scanning. The placenta isposterior and fundal in location without focal abnormality. Cervical lengthmeasures 4.8 cm without evidence of funneling. US/US OB placenta IMPRESSION: No placental or cervical abnormality is seen. Impression dictated by: Rufus Garcia Jr., D.O. 09/02/2024 11:52 AM Dictation Location: [place] [address] Electronically authenticated by: [id number] Y Date: 1:52 Dictated By: Rufus Garcia M.D. Signed By:09/02/24 1155 DD/ 1152 TD/TT: Environmental Protection Geologist: us Zhane Bella DO [facility] Final Result * US OB CERVICAL LENGTH (09/02/2024 11:52 AM EDT) Anatomical Region Laterality Modality Other 09/02/2024 11:5 2 AM EDT Narrative 09/02/2024 11:55 [place] [address] Ultrasound Report Signed Patient: LAURA POND MR#: [id number] : 2000 Acct:[id number] Age/Sex: 23 / F ADM Date: Loc: [facility] 258-[address]: Zhane Bella D.O. Ordering Physician: Zhane Bella D.O. Date of Service: 09/02/24 Procedure(s): US OB cervical length Accession Number(s): [id number] cc: Zhane Bella D.O.; Physician,Non-Staff [place] [address] Patient Name: LAURA POND MRN: [id number] date: 2000 Sex: F Assigned Patient Location: [facility] Current Patient Location: [facility] Accession/Order Number: [id number] Exam Date: 09/02/2024 11:49 Report Date: 09/02/2024 11:52 At the request of: ZHANE BELLA DO Procedure: US OB cervical length Placenta ultrasound, cervical ultrasound. Reason for exam: Bleeding. COMPARISON: None. FINDINGS: Transabdominal imaging of the gravid uterus was obtained. FINDINGS: Single live intrauterine with heart rate 1 47 bpm. presentation is cephalic at time of scanning. The placenta is posterior and fundal in location without focal abnormality. Cervical length measures 4.8 cm without evidence of funneling. US/US OB cervical length IMPRESSION: No placental or cervical abnormality is seen. Impression dictated by: Rufus Garcia Jr., D.O. 09/02/2024 11:52 AM Dictation Location: [place] [address] Electronically authenticated by: [id number] Y Date: 09/02/2024 11:52 Dictated By: Rufus Garcia M.D. Signed By: 09/02/24 1155 DD/ 1152 TD/TT: Environmental Protection Geologist: Procedure Note Radiology, Radiologist, MD - 09/02/2024 [place] [address] Ultrasound Report Signed Patient: LAURA POND TMR#: [id number] : 2000Acct:[id number] Age/Sex: 23 / FADM Date: Loc: [facility] 258-[address]: Zhane Bella D.O. Ordering Physician: Zhane Bella D.O. Date of Service: 09/02/24 Procedure(s): US OB cervical length Accession Number(s): [id number] cc: Zhane eBlla D.O.; Physician,Non-Staff [place] [address] Patient Name: LAURA POND MRN: [facility]:[id number] date: 2000 Sex: F Assigned Patient Location: [facility] Current Patient Location: [facility] Accession/Order Number: [id number] Exam Date: 09/02/2024 11:49 Report Date: 09/02/2024 11:52 At the request of: ZHANE BELLA DO Procedure: US OB cervical length Placenta ultrasound, cervical ultrasound. Reason for exam: Bleeding. COMPARISON: None. FINDINGS: Transabdominal imaging of the gravid uterus was obtained. FINDINGS: Single live intrauterine with heart rate 1 47bpm. presentation is cephalic at time of scanning. The placenta isposterior and fundal in location without focal abnormality. Cervical lengthmeasures 4.8 cm without evidence of funneling. US/US OB cervical length IMPRESSION: No placental or cervical abnormality is seen. Impression dictated by: Rufus Garcia Jr., D.O. 09/02/2024 11:52 AM Dictation Location: [place] [address] Electronically authenticated by: [id number] Y Date: 1:52 Dictated By: Rufus Garcia M.D. Signed By:09/02/24 1155 DD/ 1152 TD/TT: Environmental Protection Geologist: Zhane Jena DO [facility] Final Result * (ABNORMAL) [facility] URINE MICROSCOPIC ONLY (09/02/2024 11:20 AM EDT) TB WBC 5-10(A) NONE SEEN #/HPF [facility] TBH RBC 0-2 0 - 2 #/HPF [facility] BACTERIA URINE SMALL(A) NONE SEEN #/HPF [facility] MUCUS URINE NONE SEEN NONE SEEN [facility] SQUAMOUS EPITHELIAL CELL URINE MODERATE( A) NONE/RARE #/LPF [facility] TRANSITIONAL EPI CELLS URINE FEW(A) NONE SEEN #/LPF TB[facility] CRYSTALS SEEN? None Seen None Seen #/HPF [facility] CAST SEEN? NONE SEEN NONE SEEN #/LPF [facility] URINE CULTURE INDICATED YES-LC [facility] 09/02/2024 11:2 0 AM EDT 09/02/2024 11:28 AM EDT Narrative [facility] - 09/02/2024 12:04 PM EDT Zhane Jena DO [facility] Final Result [facility] TB * (ABNORMAL) [facility] UA (CLEAN/CATCH) FOREST MANAGEMENT TEACHER/MICRO IF IND. (09/02/2024 11:20 AM EDT) COLOR URINE LT. YELLOW YELLOW TBH CLARITY URINE SL CLOUDY CLEAR [facility] SPECIFIC GRAVITY URINE 1.015 1.005 - 1.025 TB[facility] PH URINE 7.0 5.0 - 9.0 [facility] PROTEIN URINE NEGATIVE NEG/TRACE mg/dL [facility] GLUCOSE URINE UA NEGATIVE NEGATIVE mg/dL [facility] BILIRUBIN URINE NEGATIVE NEGATIVE TBH KETONES URINE NEGATIVE NEGATIVE mg/dL [facility] BLOOD URINE NEGATIVE NEGATIVE TBH NITRITE URINE NEGATIVE NEGATIVE TBH UROBILINOGEN URINE 0.2 0.2 - 1.0 EU/dL TBH LEUKOCYTE ESTERASE URINE MODERATE(A) NEGATIVE TBH URINE MICROSCOPIC INDICATED YES [facility] 09/02/2024 11:2 0 AM EDT 09/02/2024 11:28 AM EDT Antione QUINONEZ - 09/02/2024 12:04 PM EDT Zhane Jena DO [facility] Final Result [facility] TB * (ABNORMAL) CBC auto differential (09/01/2024 3:48 PM EDT) Only the most recent of2 resultswithin the time period is included. WHITE BLOOD CELL COUNT, WBC 9.0 4 - 11 x10E9/L [facility] RED BLOOD CELL COUNT, RBC 3.86 3.8 - 5.2 X10E12/L [facility] HEMOGLOBIN 10.9(L) 11.7 - 15.5 g/dL [facility] HEMATOCRIT 31.9(L) 35 - 47 % [facility] MEAN CELL VOLUME, MCV 83 80 - 100 fL [facility] MEAN CELL HEMOGLOBIN, MCH 28.2 27 - 34 pg [facility] MEAN CELL HEMOGLOGIN CONCENTRATION, MCHC 34.1 32 - 36 g/dL [facility] RED CELL DISTRIBUTION WIDTH, RDW 13.7 11.5 - 15 % [facility] PLATELET COUNT 226 150 - 450 X10E9/L [facility] MEAN PLATELET VOLUME, MPV 8.9 7 - 12 fL [facility] % NEUTROPHILS 78.7 % [facility] % LYMPHOCYTES 17.0 % [facility] % MONOCYTES 3.7 % [facility] % EOSINOPHILS 0.4 % [facility] % BASOPHILS 0.2 % [facility] ABSOLUTE NEUTROPHIL 7.1 10*3/uL [facility] ABSOLUTE LYMPHOCYTE 1.5 10*3/uL [facility] ABSOLUTE MONOCYTE 0.3 10*3/uL [facility] ABSOLUTE EOSINOPHIL 0.0 10*3/uL [facility] ABSOLUTE BASOPHIL 0.0 10*3/uL [facility] DIFFERENTIAL TYPE AUTOMATED DIFFERENTIAL [facility] Comment: PERFORMED AT [facility] [address],[place] [address] 09/01/2024 3:48 PM EDT 09/01/2024 9:40 PM EDT us Zhane Bella DO LAB BLOOD ORDERABLES Final Resul t [facility] * (ABNORMAL) RECURRENT VAGINITIS (HTRX) (08/12/2024 4:11 PM EDT) [facility] ATOPOBIUM VAGINAE 23.789(A) 19.961 - 24.689 ppm 08/13/2024 6:52 AM EDT [facility] ATOPOBIUM VAGINAE Detected(A) 19.961 - 24.689 ppm 08/13/2024 6:52 AM EDT [facility] BVAB 2,3 (BACTERIAL VAGINOSIS ASSOCIATED BACTERIA 2, 3); MOBILUNCUS SPP 20.226(A) 19.961 - 24.689 ppm 08/13/2024 6:52 AM EDT [facility] BVAB 2,3 (BACTERIAL VAGINOSIS ASSOCIATED BACTERIA 2, 3); MOBILUNCUS SPP Detected(A) 19.961 - 24.689 ppm 08/13/2024 6:52 AM EDT [facility] MIGUEL ALBICANS, PARAPSILOSIS, TROPICALIS 0.000 19.961 - 30.770 ppm 08/13/2024 6:52 AM EDT [facility] MIGUEL ALBICANS, PARAPSILOSIS, TROPICALIS Not Detected 19.961 - 30.770 ppm 08/13/2024 6:52 AM EDT [facility] MIGUEL GLABRATA 0.000 23.000 - 32.138 ppm 08/13/2024 6:52 AM EDT [facility] MIGUEL GLABRATA Not Detected 23.000 - 32.138 ppm 08/13/2024 6:52 AM EDT [facility] MIGUEL KRUSEI 0.000 23.000 - 32.271 ppm 08/13/2024 6:52 AM EDT [facility] MIGUEL KRUSEI Not Detected 23.000 - 32.271 ppm 08/13/2024 6:52 AM EDT [facility] CHLAMYDIA TRACHOMATIS 0.000 23.000 - 31.467 ppm 08/13/2024 6:52 AM EDT [facility] CHLAMYDIA TRACHOMATIS Not Detected 23.000 - 31.467 ppm 08/13/2024 6:52 AM EDT [facility] GARDNERELLA VAGINALIS 26.712(A) 19.961 - 24.689 ppm 08/13/2024 6:52 AM EDT [facility] GARDNERELLA VAGINALIS Detected(A) 19.961 - 24.689 ppm 08/13/2024 6:52 AM EDT [facility] MEGASPHAERA (TYPES 1, 2) 15.626(A) 19.961 - 24.689 ppm 08/13/2024 6:52 AM EDT [facility] MEGASPHAERA (TYPES 1, 2) Detected(A) 19.961 - 24.689 ppm 08/13/2024 6:52 AM EDT [facility] NEISSERIA GONORRHOEAE 0.000 23.000 - 32.117 ppm 08/13/2024 6:52 AM EDT [facility] NEISSERIA GONORRHOEAE Not Detected 23.000 - 32.117 ppm 08/13/2024 6:52 AM EDT [facility] TRICHOMONAS VAGINALIS 0.000 23.000 - 32.119 ppm 08/13/2024 6:52 AM EDT [facility] TRICHOMONAS VAGINALIS Not Detected 23.000 - 32.119 ppm 08/13/2024 6:52 AM EDT [facility] MYCOPLASMA GENITALIUM 0.000 19.961 - 24.689 ppm 08/13/2024 6:52 AM EDT [facility] MYCOPLASMA GENITALIUM Not Detected 19.961 - 24.689 ppm 08/13/2024 6:52 AM EDT [facility] ERMB, C; MEFA 23.273(A) 23.000 - 27.611 ppm 08/13/2024 6:52 AM EDT [facility] ERMB, C; MEFA Detected(A) 23.000 - 27.611 ppm 08/13/2024 6:52 AM EDT [facility] TET B, TET M 27.416(A) 23.000 - 27.778 ppm 08/13/2024 6:52 AM EDT [facility] TET B, TET M Detected(A) 23.000 - 27.778 ppm 08/13/2024 6:52 AM EDT [facility] Tissue 08/12/2024 4:11 PM EDT 08/13/2024 1:36 AM EDT us Zhane Bella DO LAB BLOOD ORDERABLES Final Resul t [facility] [address] [facility] [facility] [place] [address] * (ABNORMAL) IGP,APTIMA HPV,AGE GDLN (08/12/2024 2:58 PM EDT) AGE GDLN ACOG TESTING Note . [facility] Comment: TESTS RESULT FLAG UNITS REF RANGE LAB Clinician Provided Cytology Information Source.............Cervix No. of containers..01 ThinPrep Vial Age Algo ACOG Neha... -03 06 FLAG LEGEND: L-Low Normal,H-High Normal,LL-Alert Low,HH-Alert High <-Panic Low,>-Panic High,A-Abnormal,AA-Critical Abnormal Performed at: 01 =[facility] [address] [place] [address] Rafaela Vega MD, IGP, RFX APTIMA HPV ASCU Note(A) . [facility] Comment: TESTS RESULT FLAG UNITS REF RANGE LAB DIAGNOSIS: [A] 02 EPITHELIAL CELL ABNORMALITY. ATYPICAL SQUAMOUS CELLS OF UNDETERMINED SIGNIFICANCE (ASC-US). Specimen adequacy: 02 Satisfactory for evaluation. Endocervical and/or squamous metaplastic cells (endocervical component) are present. Performed by: 02 Mauri Martínez, Vice President Compliance (ASCP) Electronically si... 02 Frances Munoz MD, Pathologist . 02 Pathologist ICD10: 02 R87.610 Note: Note 02 The Pap smear is a screening test designed to aid in the detection of premalignant and malignant conditions of the uterine cervix. It is not a diagnostic procedure and should not be used as the sole means of detecting cervical cancer. Both false-positive and false-negative reports do occur. Test Methodology: Note 02 This liquid based ThinPrep(R) pap test was screened with the use of an image guided system. . 02 See below for HPV testing results. FLAG LEGEND: L-Low Normal,H-High Normal,LL-Alert Low,HH-Alert High <-Panic Low,>-Panic High,A-Abnormal,AA-Critical Abnormal Performed at: [address] [address] Rafaela Vega MD, HPV APTIMA Positive( A) Negative [facility] Comment: This nucleic acid amplification test detects fourteen high- risk HPV types (16,18,31,33,35,39,45,51,52,56,58,59,66,68) without differentiation. Performed at: = - [address] [id number] Plate Molder: Rafaela Vega MD, Phone: [phone] Performed at: [address] [id number] Plate Molder: Rafaela Vega MD, Phone: [phone] 08/12/2024 2:58 PM EDT 08/12/2024 9:42 PM EDT Narrative CRISTIANO - 08/20/2024 3:07 AM EDT SPATULA-ALONE CERVIX us Zhane Jena DO LAB BLOOD ORDERABLES Final Resul t [facility] * US OB 14+ weeks anatomy scan (07/28/2024 3:42 PM EDT) Anatomical Region Laterality Modality Body Ultrasound 07/28/2024 9:47 PM EDT Narrative 07/28/2024 9:47 PM EDT EXAM: US OB 14+ WEEKS ANATOMY SCAN [...] 2. Unremarkable ultrasound of the anatomy. Electronically Signed:Electronically signed by REUBEN LOAIZA II, MD, PHD at 28-Jul-2024 09:45:45 PM [facility] Procedure Note Reuben Loaiza MD - 07/28/2024 EXAM: US OB 14+ WEEKS ANATOMY SCAN HISTORY: anatomy. COMPARISON: None available. TECHNIQUE: Two-dimensional transabdominal grayscale ultrasound imaging ofthe pelvis was performed. FINDINGS: Gestation: Single Presentation: Cephalic Cardiac Activity: 152 beats per minute Placental Location: Posterior with no sonographic abnormalitiesidentified. Distance from Placental Tip to Cervix: 5.1 [...] is 22 weeks 4 days (+/- 11 daysgestation). Estimated Weight: 527 grams, +/- 79 grams [...] gestation 23 weeks, 0 days by LMP. Today'sultrasound measurements correlate with a gestational age of 22 weeks 4days. Estimated weight is 527 grams, +/- 79 grams ( 1 lb 3 oz) whichcorrelates to 28 %. KARTIK is 11/27/2024. 2. Unremarkable ultrasound of the anatomy. Electronically Signed:Electronically signed by REUBEN LOAIZA II, MD, PHDat 28-Jul-2024 09:45:45 PM [facility] us Zhane Bella DO IMG OB US PROCEDURES Final Resul t * DRUG SCREEN, URINE (07/27/2024 3:10 PM EDT) AMPHETAMINE/METHAMP Negative Negative [facility] Comment:AMPH/METH screening cut off = 1000 ng/mL BARBITURATES Negative Negative [facility] Comment:Barbiturates screeni ng cut off value = 200 ng/mL BENZODIAZEPINES Negative Negative [facility] Comment:Benzodiazepines scre ening cut off value = 200 ng/mL CANNABINOIDS Negative Negative [facility] Comment:Cannabinoids/THC scr eening cut off value = 50 ng/mL COCAINE METABOLITE Negative Negative [facility] Comment:Cocaine screening cu t off value = 300 ng/mL OPIATES Negative Negative [facility] Comment: Opiates screening cut off value = 300 ng/mL NOTE: This test is used for the detection of codeine, hydrocodone (>1000 ng/mL), morphine and hydromorphone (>900 ng/mL) in urine. PHENCYCLIDINE Negative Negative [facility] Comment:Phencyclidine screen ing cut off value = 25 ng/mL OXYCODONE Negative Negative [facility] Comment: Oxycodone screening cut off value = 300 ng/mL NOTE: This test is used for the detection of oxycodone and oxymorphone in urine. METHADONE Negative Negative [facility] Comment:Methadone screening cut off value = 300 ng/mL. ECSTASY Negative Negative [facility] Comment: Ecstasy screening cut off value = 500 ng/mL This report is intended for use in clinical monitoring or management of patients. PERFORMED AT [facility] [address],[place] [address] 07/27/2024 3:10 PM EDT 07/27/2024 3:12 PM EDT us Zhane Jena DO LAB BLOOD ORDERABLES Final Resul t [facility] * AFP SINGLE MARKER SCRN, MATERNAL,SERUM ([facility]) (07/27/2024 3:10 PM EDT) [facility] AFP SINGLE MARKER SCRN, MATERNAL, SERUM SEE COMMENTS 07/29/2024 03:00 PM [facility] Comment: NOTE Test Result Flag Unit RefValue AFP Single Marker SCRN, Maternal, S Results Summary Normal risk Neural tube defect risk estimate 05/07,200 AFP 124.0 ng/mL AFP MoM 1.51 MoM [...] repeat testing Initial testing Physician Phone Number [phone] GENERAL TEST INFORMATION See Note This screening [...] developed and its performance characteristics determined by [facility] in a manner consistent with CLIA requirements. This test has not been cleared or approved by the U.S. Food and Drug Administration. Test Performed by: [facility] [place] [address] Plate Molder: Gamaliel Au Ph.D.; CLIA# [id number] PERFORMED AT [address] [place] [address] 07/27/2024 3:10 PM EDT 07/27/2024 3:12 PM EDT us Zhane Jena DO LAB BLOOD ORDERABLES Final Resul t [facility] * TSH ([facility]) (07/27/2024 3:10 PM EDT) [facility] TSH 1.68 0.49 - 4.67 uIU/mL [facility] Comment:PERFORMED AT [facility] [address],[place] [address] 07/27/2024 3:10 PM EDT 07/27/2024 3:12 PM EDT us Zhane Jena DO LAB BLOOD ORDERABLES Final Resul t Performing Organization Address City/[facility] Co de Phone Number [facility] * SYPHILIS TOTAL ([facility]) (07/27/2024 3:10 PM EDT) Pathologist [facility] SYPHILIS TOTAL <0.2 0.0 - 0.8 AI [facility] Comment: NON REACTIVE No serologic evidence of infection to Treponema pallidum (syphilis). Repeat testing may be considered in patients with suspected acute or primary syphilis in 2 to 4 weeks. PERFORMED AT [address], [place] [address] 07/27/2024 3:10 PM EDT 07/27/2024 3:12 PM EDT us Zhane Jena LAB BLOOD ORDERABLES Final Resul t Performing Organization Address [facility] Co de Phone Number [facility] * Hepatitis C antibody (07/27/2024 3:10 PM EDT) Pathologist [facility] ANTI HCV W/PCR REFLEX Non-Reacti ve Non-Reacti ve [facility] Comment: NEW TEST METHOD NOTE If recent infection suspected, recommend repeat testing (>2 months). Ztmxht-yi-xxgvbb ratio is <1.00. PERFORMED AT [address],[place] [address] 07/27/2024 3:10 PM EDT 07/27/2024 3:12 PM EDT us Zhane Jena DO LAB BLOOD ORDERABLES Final Resul t Performing Organization Address City/[facility] Co de Phone Number [facility] * Rubella antibody, IgG (07/27/2024 3:10 PM EDT) Pathologist [facility] RUBELLA IGG 15 IU/mL [facility] Comment: Interpretation-------- <8 NEGATIVE-considered Not Immune 8-9 EQUIVOCAL-consider retesting with new specimen >9 POSITIVE-considered Immune PERFORMED AT [address],[place] [address] 07/27/2024 3:10 PM EDT 07/27/2024 3:12 PM EDT MENA OPPORTUNITIESy Jena DO LAB BLOOD ORDERABLES Final Resul t Performing Organization Address City/[facility]/ZIP Co de Phone Number [facility] * Hepatitis B surface antigen (07/27/2024 3:10 PM EDT) Pathologist [facility] HEPATITIS B SURG AG Non-Reacti ve Non-Reacti ve [facility] Comment: NEW TEST METHOD PERFORMED AT [address],[place] [address] 07/27/2024 3:10 PM EDT 07/27/2024 3:12 PM EDT us Ampereo DO LAB BLOOD ORDERABLES Final Resul t Performing Organization Address [facility] Co de Phone Number [facility] * Hemoglobin A1c (07/27/2024 3:10 PM EDT) Pathologist [facility] HEMOGLOBIN A1C 4.6 4.4 - 5.6 % [facility] Comment: NOTE ADA Guidelines Result HgbA1c Normal : less than 5.7 % Prediabetes : 5.7 % to 6.4 % Diabetes : > 6.4 % Use with caution in patients with abnormal hemoglobin variants as the half-life of red blood cells and in vivo glycation rates are affected. AVERAGE GLUCOSE 85 mg/dL [facility] Comment:PERFORMED AT [address],[place] [address] 07/27/2024 3:10 PM EDT 07/27/2024 3:12 PM EDT us Zhane Bella DO LAB BLOOD ORDERABLES Final Resul t [facility] * US OB follow up transabdominal approach (07/07/2024 2:55 PM EST) Anatomical Region Laterality Modality Body Ultrasound 07/07/2024 2:55 PM EST Narrative 07/07/2024 2:54 PM EST THIS EXAM WAS PERFORMED AT [facility] HISTORY: Vaginal bleeding in COMPARISON: 05/15/2024 EVALUATION: [...] MD on 07/07/2024 2:54 PM Procedure Note Radiology, Radiologist, - 07/07/2024 THIS EXAM WAS PERFORMED AT [facility] HISTORY: Vaginal bleeding in COMPARISON: 05/15/2024 EVALUATION: [...] with detailed biometric measurementsprovided above. Finalized by bOi Shah MD on 07/07/2024 2:54 PM us Zhane Jena DO IMG OB US PROCEDURES Final Resul t from Last 3 Months Insurance [facility] MED[facility]ID [place]
--- OUTSIDE RECORDS SUMMARY | 2024-10-03 18:59 | XMS_ITS | Encounter Summary ---
Author Organization [facility] tem Address [id number] [address] [place] [address] Care Team Providers Care Outside Energy Sales Representatives Name Role Phone No Pcp, No Pcp Primary Care Provider Unavailabl e Encounter Details Date Type Department Care Team (Late st Contact Info) Description 05/10/2023 Orders Only [facility] - Labor [address] [facility] [place] [id number] Marilu Mcneal, DISTRICT PLANT SUPERVISOR-CN [address] [place] [address] Chronic migraine without aura without status migrainosus, not intractable (Primary Dx); Intractable migraine with status migrainosus, unspecified migraine type Social History Tobacco Use Types Packs/Day Years Used Date Smoking Tobacco: Never Smokeless Tobacco: Never Alcohol Use Standard Drinks/Week Comments Not Currently 0 (1 standard drink = 0.6 oz pur e alcohol) Social Connection and Isolation Panel [NHANES] A nswer Date Recorded In a typical week, how many times do you talk on the phone with family, friends, or neighbors? Three times a week 03/26/20 How often do you get togethe r with friends or relatives? Never 03/26/2021 How often do you attend [facility] or worship services? Never 03/26/2021 Do you belong to [...] like food, housing, medical care, and heating? Somewhat hard 03/26/2021 PHQ-2 Answer Date Recorded Total Score 15 08/03/2021 [facility] of Occupat ional Health - Occupational Stress [...] medical appointments or from getting medications? No 03/07 In the past 12 months, has l ack of transportation kept you from meetings, work, or from getting things needed for daily living? No 03/26/2021 [place] Depression Scale Answer Date Recorded [place] Depression Scale Total 7 04/05/2023 The thought of harming myself has occurred to me . Never 04/05/2023 Housing Instability Answer Date Recorde d Are you worried or concerned that in the next two months you may not have stable housing that you own, rent or stay in as a part of a household? No 02/03/2023 Childcare Answer Date Recorded Do problems getting child ca re make it difficult for you to work or study? No 03/26/2021 Employment Answer Date Recorded Do you need help finding a [facility] career center and/or a training program? No 03/26/2021 Hunger Screening Answer Date Recorded Within the past 12 months we worried whether our food would run out before we got money to buy more. Never True 04/05/2023 Within the past 12 months th e food we bought just didn't last and we didn't have money to get more. Never True 04/05/2023 Purpose - Life Answer Date Recorded I have a purpose and direction in my life. Neith er Agree nor Disagree 03/26/2021 Education Answer Date Recorded What is the highest level of school you have completed or the highest degree you have received? 12th grade 03/26/2021 Comments No Sex and Gender Information Value [...] as of this encounter Visit Diagnoses Diagnosis Chronic migraine without aura without status migrainosus, not intractable- Primary Intractable migraine with status migrainosus, unspecified migraine type documented in this encounter Additional Health Concerns Infection Onset Date Last Indicated Resolved Time Respiratory Rule-Out 06/25/2024 06/25/2024 025 5:33 PM EST Influenza 06/25/2024 06/25/2024 07/02/2024 11:1 2 PM EST Assessment Noted Time PHQ-9 Depression Total Score: 15 022 10:43 AM EDT documented as of this encounter Care Teams Outside Energy Sales Representatives Relationship Specialty Start Date End Date No [place]cp, [place] [id number] PCP - General Family Medicine 09/01/24 documented as of this encounter
--- OUTSIDE RECORDS SUMMARY | 2024-10-03 18:59 | XMS_ITS | Encounter Summary ---
Author Organization [facility] Address [address] [place] [address] Care Team Providers Care Forensic Identification Specialist Name Role Phone Unavailable Primary Care Provider Unavailabl e Encounter Details Date Type Department Care Team (Late st Contact Info) Description 09/21/2024 Telephone [facility] OB [address] [place] [phone] Christie Wiley LPN Social History Tobacco Use [...] Telephone Encounter - Christie Wiley LPN - 09/29/2024 9:47 AM EDT FYI: 09/24/24 Kristin Palmer from [facility] called and LMOM that patient was released from [facility] today. The hospital did provide patient with a taxi to get home. If Kristin gets any further updates she will reach out to office. Christie Guerra LPN * Telephone Encounter - Marie Cuellar LPN - 09/22/2024 12:59 PM EDT Hi, this is Sarah. That [facility] just calling to update on a patient that I believe that Johnnie has seen. She has poor care. Patient's name is Georgie Pond, date of is [birth year]. She was admitted from [facility] on the for suicide attempt and was [facility] slipped to [facility], thank you. I did call sarah back and thank her for keeping us updated * Telephone Encounter - Christie Wiley LPN - 09/21/2024 2:49 PM EDT 11:51am Kristin Palmer called from [facility] and requested call back to discuss patient. 2:45pm Called Kristin @ [phone] and LMOM to call office to discuss patient. Christie Guerra LPN 09/23/24 Spoke with Kristin Palmer and was given update on patients status. Informed Kristin that patient no showed her last appointment and that bedrest was only effective until 09/16/24 appointment which was misses and that patient had requested light duty/ bedrest via phone call to office and it was granted only until patient was going to be assessed in office. Christie Guerra LPN documented in this encounter Plan of Treatment Upcoming Encounters Date Type Department Care Team (Late st Contact Info) Description 10/05/2024 10:30 AM EDT Routine [facility] [address] [place] [phone] Mya Kaplan PA [address] [place] [address] documented as of this encounter Visit Diagnoses Not on filedocumented in this encounter
--- OUTSIDE RECORDS SUMMARY | 2024-10-03 19:00 | XMS_ITS | Encounter Summary ---
Author Organization [facility] Address [id number] [address] [place] [address] Care Team Providers Care Roller Inspector Name Role Phone No Pcp, No Pcp Primary Care Provider Unavailabl e Encounter Details Date Type Department Care Team (Late st Contact Info) Description 05/15/2021 Telephone [facility] Family Medicine [address] [place] [address] Mona Delvalle CMA Social History Tobacco Use Types Packs/Day Years Used Date Smoking Tobacco: Never Smokeless Tobacco: Never Alcohol Use Standard Drinks/Week Comments No 0 (1 standard drink = 0.6 oz [...] any clubs o r organizations such as shinto groups, unions, fraternal or athletic groups, or [...] 03/26/2021 PHQ-2 Answer Date Recorded Total Score 13 03/26/2021 [facility] of Occupat ional Health - Occupational Stress [...] things needed for daily living? No 03/26/2021 Childcare Answer Date Recorded Do problems getting child ca re make it difficult for you to work or study? No 03/26/2021 Employment Answer Date Recorded Do you need help finding a l ocal career center and/or a training program? No 03/26/2021 Purpose - Life Answer Date Recorded I [...] encounter Miscellaneous Notes * Telephone Encounter - Mona Delvalle CMA - 05/15/2021 3:34 PM EST GEORGIE CALLED IN REGARDING HER CONTINUED SYMPTOMS AND BEING COVID NEGATIVE. SYMPTOMS INCLUDE DIARRHEA, STOMACH CRAMPS, HEADACHES, THROWING UP, NAUSEA AND A FEVER WANTED TO KNOW IF SHE COLD [facility] RX CALLED IN OR IF SHE COULD COME IN FOR AN APPT. PLEASE ADVISE. * Telephone Encounter - WILMER Watkins - 05/15/2021 3:34 PM EST Can we get her results from [facility] for COVID test I don't see the results in the system documented in this encounter Plan of Treatment [...] filedocumented in this encounter Additional Health Concerns Infection Onset Date Last Indicated Resolved Time COVID-19 Rule-Out 05/17/2021 05/11/2021 05/17/2021 12:58 PM EST Respiratory Rule-Out 06/25/2024 06/25/2024 025 5:33 PM EST Influenza 06/25/2024 06/25/2024 07/02/2024 11:1 2 PM EST Assessment Noted Time PHQ-9 Depression Total Score: 13 021 6:24 PM EST documented as of this encounter Care Teams Roller Inspector Relationship Specialty Start Date End Date No Pcp, [place] [id number] PCP - General Family Medicine 09/01/24 documented as of this encounter
--- OUTSIDE RECORDS SUMMARY | 2024-10-03 19:00 | XMS_ITS | Encounter Summary ---
Author Organization [facility] Address [id number] [address] [place] [address] Care Team Providers Care Social Work Faculty Member Name Role Phone No Pcp, No Pcp Primary Care Provider Unavailabl e Encounter Details Date Type Department Care Team (Late st Contact Info) Description 05/10/2021 Telephone [facility] Family Medicine [address] [place] [address] [place] [address] Kristyn Gutierrez CMA Social History Tobacco Use Types Packs/Day [...] often do you attend chur ch or buddhism services? Never 03/26/2021 Do you belong to any clubs o r organizations such as buddhism groups, unions, fraternal or athletic groups, or [...] Answer Date Recorded Total Score 13 03/26/2021 [facility] [place] of Occupat ional Health - Occupational Stress [...] encounter Miscellaneous Notes * Telephone Encounter - Kristyn Gutierrez CMA - 05/10/2021 11:08 AM EST Patient called stating she has diarrhea sore throat body aches chills cough and nasal congestion startin 05/08/2021 her work is requiring a covid test please send order to [facility]. [phone] documented in this encounter Plan of Treatment [...] documented as of this encounter Care Teams Social Work Faculty Member Relationship Specialty Start Date End Date No Pcp[place] [id number] PCP - General Family Medicine 09/01/24 documented as of this encounter
--- OUTSIDE RECORDS SUMMARY | 2024-10-03 19:00 | XMS_ITS | Clinical Summary ---
Author Organization [facility] Address [address] [place] [address] Care Team Providers Care Shake Loader Name Role Phone Unavailable Primary Care Provider Unavailabl e Allergies No known active allergies Medications No known medications Social History Tobacco Use Types Packs/Day Years Used Date Smoking Tobacco: Some Days Cigarettes Smokeless Tobacco: Never Tobacco Cessation:Ready to Q uit: Not Asked; Counseling Given: Not Answered Alcohol Use Standard Drinks/Week Comments Never 0 (1 standard drink = 0.6 oz pur e alcohol) AUDIT-C Answer Date Recorded Q1: How often do you have a drink containing alcohol? Never 12/03/2022 Q2: How many drinks containi ng alcohol do you have on a typical day when you are drinking? Patient does not drink Q3: How often do you have si x or more drinks on one occasion? Never 12/03/2022 Interpersonal Safety Domain Source: IP Abuse Scr eening Answer Date Recorded Read-Only, Retired: Physical Abuse Denies 12/03/2022 Read-Only, Retired: Verbal Abuse Denies 12/03/2022 Read-Only, Retired: Emotional abuse Denies 12/03/2022 Read-Only, Retired: Financial Abuse Denies 12/03/2022 Read-Only, Retired: Sexual abuse Denies 12/03/2022 Comments Unknown Sex and Gender Information Value Date Recorded Sex Assigned at Not on file Legal Sex Female 10:11 AM EDT Gender Identity Not on file Sexual Orientation Not on file Last Filed Vital Signs Vital Sign Reading Time Taken Comments Blood Pressure 133/64 12/03/2022 9:07 PM EDT Pulse 82 12/03/2022 9:07 PM EDT Temperature 36.9 C (98.4 F) 12/03/2022 9:07 PM EDT Respiratory Rate 18 12/03/2022 9:07 PM EDT Oxygen Saturation 100% 12/03/2022 9:07 PM EDT Inhaled Oxygen Concentration - - Weight 62.1 kg (137 lb) 12/03/2022 9:07 PM EDT Height 157.5 cm (5' 2 ) 12/03/2022 9:07 PM EDT Body Mass Index 25.06 12/03/2022 9:07 PM EDT Plan of Treatment Health Maintenance Due Date Last Done Comments Depression Screen 2014 Varicella vaccine (1 of 2 - 13+ 2-dose series) 09/09/2015 HIV screen 2017 HPV vaccine (1 - 3-dose series) 2017 Chlamydia/GC screen 2018 Meningococcal B vaccine (1 o f 2 - Standard) 2018 Hepatitis C screen 2020 DTaP/Tdap/Td vaccine (1 - Tdap) 2021 Hepatitis B vaccine (1 of 3 - 19+ 3-dose series) 2021 Pneumococcal 0-49 years Vacc ine (1 of 2 - PCV) 2021 Pap smear 09/09/2023 COVID-19 Vaccine (1 - 2023-2 5 season) 2024 Flu vaccine (Season Ended) 2024 03/12/2019 Hepatitis A vaccine Aged Out No longe r eligible based on patient's age to complete this topic Hib vaccine Aged Out No longer eligi ble based on patient's age to complete this topic Meningococcal (ACWY) vaccine Aged Out No longer eligible based on patient's age to complete this topic Polio vaccine Aged Out No longer elig ible based on patient's age to complete this topic Insurance MEDICAID [place] [facility]
--- OUTSIDE RECORDS SUMMARY | 2024-10-03 19:00 | XMS_ITS | Encounter Summary ---
Author Organization [facility] Address [address] [facility] [place] [address] Care Team Providers Care Knee Bolter Name Role Phone Unavailable Primary Care Provider Unavailabl e Encounter Details Date Type Department Care Team (Late Contact Info) Description 07/07/2024 External Result Encounter [facility] OB [address] [facility] [place] [address] Osmany Bella DO [address] [place], [place] [address] Siddhartha Barrera, [facility]11 Social History Tobacco Use Types Packs/Day [...] 10:30 AM EDT Routine [facility] [place] [facility] [place] [address] Mya Kaplan PA [address] [place], [facility]11 documented as of this encounter Procedures Procedure Name Priority Date/Time Associated Diagnosis Comments CBC WITH AUTO DIFFERENTIAL Routine 09/01/2024 3:48 PM EDT RECURRENT VAGINITIS (HTRX) Routine 08/12/2024 4:11 PM EDT DRUG SCREEN, URINE Routine 07/27/2024 3: 10 PM EDT AFP SINGLE MARKER SCRN, MATERNAL,SERUM ([facility]) Routine 07/27/2024 3:10 PM EDT TSH ([facility]) Routine 07/27/2024 3:10 PM EDT SYPHILIS TOTAL ([facility]) Routine 07/27/2024 3:10 PM EDT CBC WITH AUTO DIFFERENTIAL Routine 07/27/2024 3:10 PM EDT HEPATITIS C ANTIBODY Routine 07/27/2024 3:10 PM EDT RUBELLA AB (IGG), IMMUNE STATUS Routine 07/27/2024 3:10 PM EDT HEPATITIS B SURFACE ANTIGEN W/REFL CONFIRM Routine 07/27/2024 3:10 PM EDT HEMOGLOBIN A1C Routine 07/27/2024 3:10 PM EDT US OB FOLLOW UP TRANSABDOMINAL APPROACH 07/07/2024 2:55 PM EST documented in this encounter Results * (ABNORMAL) CBC auto differential (09/01/2024 3:48 PM EDT) Pathologist [facility] WHITE BLOOD CELL COUNT, WBC 9.0 4 [...] TYPE AUTOMATED DIFFERENTIAL [facility] Comment: PERFORMED AT [facility] [address],[place] [address] 09/01/2024 3:48 PM EDT 09/01/2024 9:40 PM EDT us Osmany Bella DO LAB BLOOD ORDERABLES Final Resul t [facility] * (ABNORMAL) RECURRENT VAGINITIS (HTRX) (08/12/2024 4:11 PM EDT) Pathologist [facility] ATOPOBIUM VAGINAE 23.789(A) 19.961 - 24.689 ppm 08/13/2024 6:52 AM EDT [facility] ATOPOBIUM VAGINAE Detected(A) 19.961 - 24.689 ppm 08/13/2024 6:52 AM EDT [facility] BVAB 2,3 (BACTERIAL VAGINOSIS ASSOCIATED BACTERIA 2, 3); MOBILUNCUS SPP 20.226(A) 19.961 - 24.689 ppm 08/13/2024 6:52 AM EDT [facility] BVAB 2,3 (BACTERIAL VAGINOSIS ASSOCIATED BACTERIA 2, 3); MOBILUNCUS SPP Detected(A) 19.961 - 24.689 ppm 08/13/2024 6:52 AM EDT [facility] MIGUEL ALBICANS, PARAPSILOSIS, TROPICALIS 0.000 19.961 - 30.770 ppm 08/13/2024 6:52 AM EDT [facility] MIGUEL ALBICANS, PARAPSILOSIS, TROPICALIS Not Detected 19.961 - 30.770 ppm 08/13/2024 6:52 AM EDT [facility] MIGUEL GLABRATA 0.000 23.000 - 32.138 ppm 08/13/2024 6:52 AM EDT [facility] MIGUEL GLABRATA Not Detected 23.000 - 32.138 ppm 08/13/2024 6:52 AM EDT [facility] MIGUEL KRUSEI 0.000 23.000 - 32.271 ppm 08/13/2024 6:52 AM EDT [facility] MIGUEL KRUSEI Not Detected 23.000 - 32.271 ppm 08/13/2024 6:52 AM EDT [facility] CHLAMYDIA TRACHOMATIS 0.000 23.000 - 31.467 ppm 08/13/2024 6:52 AM EDT [facility] CHLAMYDIA TRACHOMATIS Not Detected 23.000 - 31.467 ppm 08/13/2024 6:52 AM EDT [facility] GARDNERELLA VAGINALIS 26.712(A) 19.961 - 24.689 ppm 08/13/2024 6:52 AM EDT [facility] GARDNERELLA VAGINALIS Detected(A) 19.961 - 24.689 ppm 08/13/2024 6:52 AM EDT [facility] MEGASPHAERA (TYPES 1, 2) 15.626(A) 19.961 - 24.689 ppm 08/13/2024 6:52 AM EDT [facility] MEGASPHAERA (TYPES 1, 2) Detected(A) 19.961 - 24.689 ppm 08/13/2024 6:52 AM EDT [facility] NEISSERIA GONORRHOEAE 0.000 23.000 - 32.117 ppm 08/13/2024 6:52 AM EDT [facility] NEISSERIA GONORRHOEAE Not Detected 23.000 - 32.117 ppm 08/13/2024 6:52 AM EDT [facility] TRICHOMONAS VAGINALIS 0.000 23.000 - 32.119 ppm 08/13/2024 6:52 AM EDT [facility] TRICHOMONAS VAGINALIS Not Detected 23.000 - 32.119 ppm 08/13/2024 6:52 AM EDT [facility] MYCOPLASMA GENITALIUM 0.000 19.961 - 24.689 ppm 08/13/2024 6:52 AM EDT [facility] MYCOPLASMA GENITALIUM Not Detected 19.961 - 24.689 ppm 08/13/2024 6:52 AM EDT [facility] ERMB, C; MEFA 23.273(A) 23.000 - 27.611 ppm 08/13/2024 6:52 AM EDT [facility] ERMB, C; MEFA Detected(A) 23.000 - 27.611 ppm 08/13/2024 6:52 AM EDT [facility] TET B, TET M 27.416(A) 23.000 - 27.778 ppm 08/13/2024 6:52 AM EDT [facility] TET B, TET M Detected(A) 23.000 - 27.778 ppm 08/13/2024 6:52 AM EDT [facility] Tissue 08/12/2024 4:11 PM EDT 08/13/2024 1:36 AM EDT us Osmany Bella DO LAB BLOOD ORDERABLES Final Resul t [facility] [address] [place] [address] * AFP SINGLE MARKER SCRN, MATERNAL,SERUM ([facility]) (07/27/2024 3:10 PM EDT) Pathologist [facility] AFP SINGLE MARKER SCRN, MATERNAL, SERUM [...] repeat testing Initial testing Physician Phone Number [phone] GENERAL TEST INFORMATION See Note This screening [...] developed and its performance characteristics determined by [facility] in a manner consistent with CLIA requirements. This test has not been cleared or approved by the U.S. Food and Drug Administration. Test Performed by: [facility] [address] [place] [id number] Activities Coordinator: Gamaliel uA Ph.D.; CLIA# [id number] PERFORMED AT [address] [place] [address] 07/27/2024 3:10 PM EDT 07/27/2024 3:12 PM EDT Osmany Jena DO LAB BLOOD ORDERABLES Final Resul t Performing Organization Address City/[facility]/ZIP Co de Phone Number [facility] * SYPHILIS TOTAL ([facility]) (07/27/2024 3:10 PM EDT) Pathologist [facility] SYPHILIS TOTAL <0.2 0.0 - 0.8 AI [facility] Comment: NON REACTIVE No serologic evidence of infection to Treponema pallidum (syphilis). Repeat testing may be considered in patients with suspected acute or primary syphilis in 2 to 4 weeks. PERFORMED AT [address],[place] [address] 07/27/2024 3:10 PM EDT 07/27/2024 3:12 PM EDT Thirstyo DO LAB BLOOD ORDERABLES Final Resul t Performing Organization Address [facility] Co de Phone Number [facility] * Rubella antibody, IgG (07/27/2024 3:10 PM EDT) [facility] RUBELLA IGG 15 IU/mL [facility] Comment: Interpretation-------- <8 NEGATIVE-considered Not Immune 8-9 EQUIVOCAL-consider retesting with new specimen >9 POSITIVE-considered Immune PERFORMED AT [address],[place] [address] 07/27/2024 3:10 PM EDT 07/27/2024 3:12 PM EDT OsmanySolar Site Designo DO LAB BLOOD ORDERABLES Final Resul t Performing Organization Address City/[facility]/ZIP Co de Phone Number [facility] * Hepatitis C antibody (07/27/2024 3:10 PM EDT) Pathologist [facility] ANTI HCV W/PCR REFLEX Non-Reacti ve Non-Reacti ve [facility] Comment: NEW TEST METHOD NOTE If recent infection suspected, recommend repeat testing (>2 months). Vjnkwq-qi-qjtvsj ratio is <1.00. PERFORMED AT [address],[place] [address] 07/27/2024 3:10 PM EDT 07/27/2024 3:12 PM EDT Osmany Jena DO LAB BLOOD ORDERABLES Final Resul t [facility] * Hepatitis B surface antigen (07/27/2024 3:10 PM EDT) Pathologist [facility] HEPATITIS B SURG AG Non-Reacti ve Non-Reacti ve [facility] Comment: NEW TEST METHOD PERFORMED AT [address],[place] [address] 07/27/2024 3:10 PM EDT 07/27/2024 3:12 PM EDT Thirstyo DO LAB BLOOD ORDERABLES Final Resul t [facility] * DRUG SCREEN, URINE (07/27/2024 3:10 PM EDT) Pathologist [facility] AMPHETAMINE/METHAMP Negative Negative [facility] Comment:AMPH/METH screening cut [...] monitoring or management of patients. PERFORMED [address], [place] [address] 07/27/2024 3:10 PM EDT 07/27/2024 3:12 PM EDT us Osmany Jena DO LAB BLOOD ORDERABLES Final Resul t Performing Organization Address City/[facility]/ZIP Co de Phone Number [facility] * TSH ([facility]) (07/27/2024 3:10 PM EDT) TSH 1.68 0.49 - 4.67 uIU/mL [facility] Comment:PERFORMED AT [address],[place] [address] 07/27/2024 3:10 PM EDT 07/27/2024 3:12 PM EDT us Osmany Jena DO LAB BLOOD ORDERABLES Final Resul t [facility] * Hemoglobin A1c (07/27/2024 3:10 PM EDT) HEMOGLOBIN A1C 4.6 4.4 - 5.6 % [facility] Comment: NOTE ADA Guidelines Result HgbA1c Normal : less than 5.7 % Prediabetes : 5.7 % to 6.4 % Diabetes : > 6.4 % Use with caution in patients with abnormal hemoglobin variants as the half-life of red blood cells and in vivo glycation rates are affected. AVERAGE GLUCOSE 85 mg/dL [facility] Comment:PERFORMED AT [facility] [address],[place] [address] 07/27/2024 3:10 PM EDT 07/27/2024 3:12 PM EDT us Osmany Jena DO LAB BLOOD ORDERABLES Final Resul t [facility] * (ABNORMAL) CBC auto differential (07/27/2024 3:10 PM EDT) WHITE BLOOD CELL COUNT, WBC 9.9 4.0 - 11.0 X10E9/L [facility] RED BLOOD CELL COUNT, RBC 4.10 3.80 - 5.20 X10E12/L [facility] HEMOGLOBIN 12.1 11.7 - 15.5 g/dL [facility] HEMATOCRIT 34.7(L) 35 - 47 % [facility] MEAN CELL VOLUME, MCV 85 80 - 100 fL [facility] MEAN CELL HEMOGLOBIN, MCH 29.4 27 - 34 pg [facility] MEAN CELL HEMOGLOGIN CONCENTRATION, MCHC 34.7 32 - 36 g/dL [facility] RED CELL DISTRIBUTION WIDTH, RDW 14.1 11.5 - 15.0 % [facility] PLATELET COUNT 258 150 - 450 X10E9/L [facility] MEAN PLATELET VOLUME, MPV 9.0 7 - 12 fL [facility] % NEUTROPHILS 77.8 % [facility] % LYMPHOCYTES 18.5 % [facility] % MONOCYTES 3.2 % [facility] % EOSINOPHILS 0.3 % [facility] % BASOPHILS 0.2 % [facility] ABSOLUTE NEUTROPHIL 7.7(H) 1.5 - 6.6 X10E9/L [facility] ABSOLUTE LYMPHOCYTE 1.8 1.0 - 3.5 X10E9/L [facility] ABSOLUTE MONOCYTE 0.3 0 - 0.9 X10E9/L [facility] ABSOLUTE EOSINOPHIL 0.0 0.0 - 0.4 X10E9/L [facility] ABSOLUTE BASOPHIL 0.0 0.0 - 0.2 X10E9/L [facility] Comment:PERFORMED AT [facility] [address],[place] [address] 07/27/2024 3:10 PM EDT 07/27/2024 3:12 PM EDT us Osmany Jena DO LAB BLOOD ORDERABLES Final Resul t [facility] * US OB follow up transabdominal approach (07/07/2024 2:55 PM EST) Anatomical Region Laterality Modality Body Ultrasound 07/07/2024 2:55 PM EST Narrative 07/07/2024 2:54 PM EST THIS EXAM WAS PERFORMED AT [facility] HISTORY: Vaginal bleeding in COMPARISON: 05/15/2024 EVALUATION: [...] 07/07/2024 2:54 PM Procedure Note Radiology, Radiologist, MD - 07/07/2024 THIS EXAM WAS PERFORMED AT [facility] HISTORY: Vaginal bleeding in COMPARISON: 05/15/2024 EVALUATION: [...] Obi Shah MD on 07/07/2024 2:54 PM us Osmany Bella DO IMG OB US PROCEDURES Final Resul t documented in this encounter Visit Diagnoses Not on filedocumented in this encounter
--- OUTSIDE RECORDS SUMMARY | 2024-10-03 19:00 | XMS_ITS | Encounter Summary ---
Author Organization [facility] Address [address] [place] [facility] [place] [address] Care Team Providers Care Medical Review Coordinator Name Role Phone Unavailable Primary Care Provider Unavailabl e Encounter Details Date Type Department Care Team (Late st Contact Info) Description 07/07/2024 Abstract [facility] OB [address] [facility] [address] [id number] Osmany Bella DO [address] [facility] [address] Siddhartha Barrera, [facility]11 Social History Tobacco Use Types Packs/Day [...] Description 10/05/2024 10:30 AM EDT Routine [facility] OB [address] [facility] [place] [id number] Mya Kaplan PA [address] [facility] [address] [place], [place] [id number] documented as of this encounter Visit Diagnoses Not on filedocumented in this encounter
--- OUTSIDE RECORDS SUMMARY | 2024-10-03 19:00 | XMS_ITS | Encounter Summary ---
Author Organization [facility] Address [address] [facility] [place] [address] Care Team Providers Care Surface Mount Technology Operator Name Role Phone Unavailable Primary Care Provider Unavailabl e Encounter Details Date Type Department Care Team (Late Contact Info) Description 11/07/2022 Abstract [facility] OB [address] [address] Osmany Bella DO [address] [facility] [place] [address] Social History Tobacco Use Types Packs/Day Years Used Date Smoking Tobacco: Never Assessed Comments Yes Sex and Gender Information Value Date Recorded Sex Assigned at Not on file Legal Sex Female 11:47 PM EDT Gender Identity Not on file Sexual Orientation Not on file COVID-19 Exposure Response Date Recorded In the last 10 days, have yo u been in contact with someone who was confirmed or suspected to have Coronavirus/COVID-19? No / Unsure 10/30/2022 2:33 PM EDT documented as of this encounter Plan of Treatment Upcoming Encounters Date Type Department Care Team (Late Contact Info) Description 10/05/2024 10:30 AM EDT Routine [facility] OB [address] [facility] [address] Mya Kaplan PA [address] [place] [address] documented as of this encounter Visit Diagnoses Not on filedocumented in this encounter
--- OUTSIDE RECORDS SUMMARY | 2024-10-03 19:00 | XMS_ITS | Encounter Summary ---
Author Organization [employer] [facility] Address [facility] [place] [address] Care Team Providers Care Drying Tumbler Operator Name Role Phone No Pcp, No Pcp Primary Care Provider Unavailabl e Encounter Details Date Type Department Care Team (Late st Contact Info) Description 08/03/2021 Telephone [facility] [address] [place] [address] [place] [address] Mona Delvalle CMA Social History Tobacco Use Types Packs/Day Years Used Date Smoking Tobacco: Never Smokeless Tobacco: Never Alcohol Use Standard Drinks/Week Comments Yes 20 (1 standard drink = 0.6 oz pu re alcohol) 4-5/day Social Connection and Isolation Panel [NHANES] A nswer Date Recorded In a typical week, how many times do you talk on the phone with family, friends, or neighbors? Three times a week 03/26/20 How often do you get togethe r with friends or relatives? Never 03/26/2021 How often do you attend chur ch or sikh services? Never 03/26/2021 Do you belong to any clubs o r organizations such as voodoo groups, unions, fraternal or athletic groups, or [...] Answer Date Recorded Total Score 15 08/03/2021 [facility] - Occupational [...] PM EDT Sexual Orientation Not on file COVID-19 Exposure Response Date Recorded In the last 10 days, have rei u been in contact with someone who was confirmed or suspected to have Coronavirus/COVID-19? No / Unsure 08/03/2021 10:39 AM EDT documented as of this encounter Plan [...] documented as of this encounter Care Teams Drying Tumbler Operator Relationship Specialty Start Date End Date No Pcp[place] [address] PCP - General Family Medicine 09/01/24 documented as of this encounter
--- OUTSIDE RECORDS SUMMARY | 2024-10-03 19:00 | XMS_ITS | Encounter Summary ---
Author Organization [facility] Address [address] [place] [address] Care Team Providers Care Sales And Leasing Agent Name Role Phone Unavailable Primary Care Provider Unavailabl e Encounter Details Date Type Department Care Team ([facility] Contact Info) Description 12/10/2022 External Result Encounter [facility] [address] [place] [address] Osmany Bella DO [facility] [place] [address] Social History Tobacco Use Types Packs/Day [...] suspected to have Coronavirus/COVID-19? No / Unsure 12/13/2022 6:30 PM EDT documented as of this encounter Plan of Treatment Upcoming Encounters Date Type Department Care Team (Late Contact Info) Description 10/05/2024 10:30 AM EDT Routine [facility] OB [address] [place] [address] Mya Kaplan PA [address] [place], [place] [id number] documented as of this encounter Procedures Procedure Name Priority Date/Time Associated Diagnosis Comments US OB 14+ WEEKS ANATOMY SCAN 12/10/2022 3:10 PM EDT documented in this encounter Results * US OB 14+ weeks anatomy scan (12/10/2022 3:10 PM EDT) Anatomical Region Laterality Modality Body Ultrasound 12/10/2022 3:10 PM EDT Narrative 12/10/2022 3:09 PM EDT THIS EXAM WAS PERFORMED AT [facility] REPORT (Signed Final 12/10/2022 15:09) PATIENT INFO: ID #: [id number] : [birth year] (22 yrs)(F) Name: GEORGIE ROTH Visit Date: 12/10/2022 11:43 ESSIE PERFORMED BY: Attending: Marisel Charles MD Performed By: Pearl Hogue RDMS Referred By: Osmany Frances. Address: [address] [place] [address] [place] [address] Location: [facility] SERVICE(S) PROVIDED: Comprehensive Anatomic Survey Twins [id number] INDICATIONS: Screening for anatomic survey Z36.89 Twin , monochorionic/diamniotic O30.039 VITAL SIGNS: Weight (lb): 139 Height: 5'2 BMI: 25.42 EVALUATION (FETUS A): Num Of Fetuses: 2 Heart Rate(bpm): 145 Cardiac Activity: Present appears normal Lie: Lower right Presentation: Cephalic Placenta: Anterior Circumvallate placenta P. Cord Insertion: Velamentous Membrane Desc: Dividing Membrane seen - Monochorionic Largest Pocket(cm) 4.31 BIOMETRY (FETUS A): BPD: 41.6 mm G.Age: 18w 4d 92 % OFD: 50.8 mm HC: 148 mm G.Age: 17w 6d 67 % AC: 123.4 mm G.Age: 18w 0d 68 % FL: 25.4 mm G.Age: 17w 5d 55 % HUM: 25.9 mm G.Age: 18w 1d 76 % CER: 17.1 mm G.Age: 17w 2d 37 % NFT: 3.24 mm CM: 2 mm TIB: 22.7 mm G.Age: 18w 0d 69 % CI: 81.9 % 70 - 86 FL/HC: 17.2 % 14.6 - 17.6 HC/AC: 1.20 1.07 - 1.29 FL/BPD: 61.1 % FL/AC: 20.6 % 20 - 24 Est. FW: 214 gm 0 lb 8 oz 74 % FW Discordancy: 17 % OB HISTORY: : 3 SAB: 2 GESTATIONAL AGE (FETUS A): U/S Today: 18w 0d KARTIK: 05/13/23 Best: 17w 3d Det. By: Early KARTIK: 05/17/23 Ultrasound (10/18/22) TARGETED ANATOMY (FETUS A): Central Nervous System Calvarium/Cranial V.: Appears normal Intracranial Zuri: Appears normal Cavum: Appears normal Parenchyma: Appears Normal Lateral Ventricles: Could not document Choroid Plexus: Appears normal Cereb./Vermis: Not well visualized Cisterna Magna: Appears normal Midline Falx: Appears Normal Spine Cervical: Appears normal Thoracic: Appears normal Lumbar: Appears normal Sacral: Appears normal Shape/Curvature: Appears Normal Head/Neck Face: Could not document Lips: Could not document Neck: Appears normal Nuchal Fold: Appears normal Nasal Bone: Could Not Document Palate: Could not document Profile: Could not document Orbits/Eyes: Could not document Mandible: Could not document Maxilla: Could not document Thorax Thoracic Contour: Appears normal Lungs: Could not document 4 Chamber View: Appears normal Cardiac Activity: Appears Normal Cardiac Rhythm: Normal Cardiac Situs: Appears normal Rt Outflow Tract: Could not document Lt Outflow Tract: Could not document Aortic Arch: Could not document Ductal Arch: Not well visualized SVC: Could not document Interventr. Septum: Not well visualized Cardiac [place]: Appears normal Diaphragm: Not well visualized 3 Vessel View: Could not document 3 V Trachea View: Could not document IVC: Could not document Crossing: Could not document Abdomen Ventral Wall: Appears normal Cord Insertion: Appears normal Situs: Appears normal Stomach: Appears normal Lt Kidney: Appears normal Rt Kidney: Appears normal Bladder: Appears normal Bowel: Appears normal Extremities Lt Humerus: Appears normal Rt Humerus: Appears normal Lt Forearm: Appears normal Rt Forearm: Appears normal Lt Hand: Appears normal Rt Hand: Appears normal Lt Femur: Appears normal Rt Femur: Appears normal Lt Lower Leg: Appears normal Rt Lower Leg: Appears normal Lt Foot: Appears normal Rt Foot: Appears normal Other Umbilical Cord: Appears normal Masses: None visualized Genitalia: Male DOPPLER - VESSELS (FETUS A): Middle Cerebral Artery S/D PI PSV MoM (cm/s) 4.75 1.61 27.43 1.21 EVALUATION (FETUS B): Num Of Fetuses: 2 Heart Rate(bpm): 145 Cardiac Activity: Present appears normal Lie: Upper left Presentation: Breech Placenta: Anterior Circumvallate placenta P. Cord Insertion: Eccentric (>2cm from edge) Membrane Desc: Dividing Membrane seen - Monochorionic Largest Pocket(cm) 4.69 BIOMETRY (FETUS B): BPD: 41 mm G.Age: 18w 3d 88 % OFD: 50.6 mm HC: 147.4 mm G.Age: 17w 6d 65 % AC: 135.1 mm G.Age: 19w 0d 91 % FL: 29 mm G.Age: 18w 6d 91 % HUM: 25.6 mm G.Age: 18w 0d 73 % CER: 17.5 mm G.Age: 17w 4d 46 % NFT: 2.7 mm LV: 7.6 mm CM: 3.5 mm TIB: 22.7 mm G.Age: 18w 0d 69 % CI: 81.0 % 70 - 86 FL/HC: 19.7 % 14.6 - 17.6 HC/AC: 1.09 1.07 - 1.29 FL/BPD: 70.7 % FL/AC: 21.5 % 20 - 24 Est. FW: 259 gm 0 lb 9 oz > 99 % FW Discordancy: 0 \ 17 % GESTATIONAL AGE (FETUS B): U/S Today: 18w 4d KARTIK: 05/09/23 Best: 17w 3d Det. By: Early KARTIK: 05/17/23 Ultrasound (10/18/22) TARGETED ANATOMY (FETUS B): Central Nervous System Calvarium/Cranial V.: Appears normal Intracranial Zuri: Appears normal Cavum: Appears normal Parenchyma: Appears Normal Lateral Ventricles: Appears normal Choroid Plexus: Appears normal Cereb./Vermis: Not well visualized Cisterna Magna: Appears normal Midline Falx: Appears Normal Spine Cervical: Appears normal Thoracic: Appears normal Lumbar: Appears normal Sacral: Appears normal Head/Neck Face: Could not document Lips: Could not document Neck: Appears normal Nuchal Fold: Appears normal Nasal Bone: Could Not Document Palate: Could not document Profile: Could not document Orbits/Eyes: Could not document Mandible: Could not document Maxilla: Could not document Thorax Thoracic Contour: Appears normal Lungs: Could not document 4 Chamber View: Could not document Cardiac Activity: Appears Normal Cardiac Rhythm: Normal Cardiac Situs: Appears normal Rt Outflow Tract: Could not document Lt Outflow Tract: Could not document Aortic Arch: Could not document Ductal Arch: Could not document SVC: Could not document Interventr. Septum: Could not document Cardiac [place]: Appears normal Diaphragm: Could not document 3 Vessel View: Appears normal 3 V Trachea View: Not well visualized IVC: Could not document Crossing: Could not document Abdomen Ventral Wall: Appears normal Cord Insertion: Appears normal Situs: Appears normal Stomach: Appears normal Lt Kidney: Appears normal Rt Kidney: Appears normal Bladder: Appears normal Bowel: Appears normal Extremities Lt Humerus: Appears normal Rt Humerus: Appears normal Lt Forearm: Appears normal Rt Forearm: Appears normal Lt Hand: Appears normal Rt Hand: Appears normal Lt Femur: Appears normal Rt Femur: Appears normal Lt Lower Leg: Appears normal Rt Lower Leg: Appears normal Lt Foot: Could not document Rt Foot: Could not document Other Umbilical Cord: Appears normal Masses: None visualized Genitalia: Male DOPPLER - VESSELS (FETUS B): Middle Cerebral Artery S/D PI PSV MoM (cm/s) 4.49 1.52 23.85 1.06 CERVIX UTERUS ADNEXA: Cervix Normal appearance by abdominal scan Uterus Gravid uterus Right Ovary Size(cm) 3.53 x 1.42 x 1.32 Vol(ml): 3.46 Visualized Left Ovary Size(cm) 2.73 x 2.03 x 1.44 Vol(ml): 4.18 Visualized Adnexa No adnexal masses identified COMMENTS: 1. Ultrasound is not diagnostic for chromosomal abnormalities, will not detect all structural abnormalities, and is not diagnostic for genetic disorders even if multiple exams are performed during a given . 2. Anatomic survey and heart echo are incomplete due to early gestational age. Marisel Charles MD Electronically Signed Final Report 12/10/2022 15:09 IMPRESSION: 1. [place] chorionic Di amniotic Twin Gestation. 2. Twin A - Lower Right i. Intrauterine size consistent with assigned KARTIK. ii. Velamentous cord insertion visualized. iii. Stomach and bladder visualized. iv. MCA PSV = 27.43, 1.21 MoM which is in the unremarkable range for the evaluation of anemia. v. Amniotic fluid volume assessment (DVP) is normal. 3. Twin B - Upper Left i. Intrauterine with EFW at greater than the 99th percentile. AC measures at the 91st percentile. ii. Stomach and bladder visualized. iii. MCA PSV = 23.85, 1.06 MoM which is in the unremarkable range for the evaluation of anemia. iv. Amniotic fluid volume assessment (DVP) is normal. 4. There is a 17% discordancy. 5. Circumvallate placenta visualized. RECOMMENDATIONS: 1. Please see [facility] consultation documentation from today's encounter. 2. Patient is scheduled in two weeks for TTTS protocol. 3. Patient is scheduled in 4 weeks for anatomic surveys, heart ECHOs, and cervical length. 4. Subsequent follow up or other follow up as clinically determined by primary OB provider unless otherwise specified by [facility]. 5. Results forwarded to ordering provider so they can follow up with the patient as necessary. The copy-to physician of this order is OSMANY Goodwin The ordering physician of this order is MARISEL Vázquez Procedure Note Radiology, Radiologist, - 12/10/2022 THIS EXAM WAS PERFORMED AT [facility] REPORT (Signed Final 12/10/2022 15:09) PATIENT INFO: ID #: [id number] : [birth year] (22 yrs)(F) Name: GEORGIE ROTH Visit Date: 12/10/2022 11:43 ESSIE PERFORMED BY: Attending: Marisel Charles MD Performed By: Pearl Hogue RDMS Referred By: Osmany Frances. Address: [address] [place] [address] [place] [address] Location: [facility] SERVICE(S) PROVIDED: Comprehensive Anatomic Survey Twins [id number] INDICATIONS: Screening for anatomic survey Z36.89 Twin , monochorionic/diamniotic O30.039 VITAL SIGNS: Weight (lb): 139 Height: 5'2 BMI: 25.42 EVALUATION (FETUS A): Num Of Fetuses: 2 Heart Rate(bpm): 145 Cardiac Activity: Present appears normal Lie: Lower right Presentation: Cephalic Placenta: Anterior Circumvallate placenta P. Cord Insertion: Velamentous Membrane Desc: Dividing Membrane seen - Monochorionic Largest Pocket(cm) 4.31 BIOMETRY (FETUS A): BPD: 41.6 mm G.Age: 18w 4d 92 % OFD: 50.8 mm HC: 148 mm G.Age: 17w 6d 67 % AC: 123.4 mm G.Age: 18w 0d 68 % FL: 25.4 mm G.Age: 17w 5d 55 % HUM: 25.9 mm G.Age: 18w 1d 76 % CER: 17.1 mm G.Age: 17w 2d 37 % NFT: 3.24 mm CM: 2 mm TIB: 22.7 mm G.Age: 18w 0d 69 % CI: 81.9 % 70 - 86 FL/HC: 17.2 % 14.6 - 17.6 HC/AC: 1.20 1.07 - 1.29 FL/BPD: 61.1 % FL/AC: 20.6 % 20 - 24 Est. FW: 214 gm 0 lb 8 oz 74 % FW Discordancy: 17 % OB HISTORY: : 3 SAB: 2 GESTATIONAL AGE (FETUS A): U/S Today: 18w 0d KARTIK: 05/13/23 Best: 17w 3d Det. By: Early KARTIK: 05/17/23 Ultrasound (10/18/22) TARGETED ANATOMY (FETUS A): Central Nervous System Calvarium/Cranial V.: Appears normal Intracranial Zuri: Appears normal Cavum: Appears normal Parenchyma: Appears Normal Lateral Ventricles: Could not document Choroid Plexus: Appears normal Cereb./Vermis: Not well visualized Cisterna Magna: Appears normal Midline Falx: Appears Normal Spine Cervical: Appears normal Thoracic: Appears normal Lumbar: Appears normal Sacral: Appears normal Shape/Curvature: Appears Normal Head/Neck Face: Could not document Lips: Could not document Neck: Appears normal Nuchal Fold: Appears normal Nasal Bone: Could Not Document Palate: Could not document Profile: Could not document Orbits/Eyes: Could not document Mandible: Could not document Maxilla: Could not document Thorax Thoracic Contour: Appears normal Lungs: Could not document 4 Chamber View: Appears normal Cardiac Activity: Appears Normal Cardiac Rhythm: Normal Cardiac Situs: Appears normal Rt Outflow Tract: Could not document Lt Outflow Tract: Could not document Aortic Arch: Could not document Ductal Arch: Not well visualized SVC: Could not document Interventr. Septum: Not well visualized Cardiac [place]: Appears normal Diaphragm: Not well visualized 3 Vessel View: Could not document 3 V Trachea View: Could not document IVC: Could not document Crossing: Could not document Abdomen Ventral Wall: Appears normal Cord Insertion: Appears normal Situs: Appears normal Stomach: Appears normal Lt Kidney: Appears normal Rt Kidney: Appears normal Bladder: Appears normal Bowel: Appears normal Extremities Lt Humerus: Appears normal Rt Humerus: Appears normal Lt Forearm: Appears normal Rt Forearm: Appears normal Lt Hand: Appears normal Rt Hand: Appears normal Lt Femur: Appears normal Rt Femur: Appears normal Lt Lower Leg: Appears normal Rt Lower Leg: Appears normal Lt Foot: Appears normal Rt Foot: Appears normal Other Umbilical Cord: Appears normal Masses: None visualized Genitalia: Male DOPPLER - VESSELS (FETUS A): Middle Cerebral Artery S/D PI PSV MoM (cm/s) 4.75 1.61 27.43 1.21 EVALUATION (FETUS B): Num Of Fetuses: 2 Heart Rate(bpm): 145 Cardiac Activity: Present appears normal Lie: Upper left Presentation: Breech Placenta: Anterior Circumvallate placenta P. Cord Insertion: Eccentric (>2cm from edge) Membrane Desc: Dividing Membrane seen - Monochorionic Largest Pocket(cm) 4.69 BIOMETRY (FETUS B): BPD: 41 mm G.Age: 18w 3d 88 % OFD: 50.6 mm HC: 147.4 mm G.Age: 17w 6d 65 % AC: 135.1 mm G.Age: 19w 0d 91 % FL: 29 mm G.Age: 18w 6d 91 % HUM: 25.6 mm G.Age: 18w 0d 73 % CER: 17.5 mm G.Age: 17w 4d 46 % NFT: 2.7 mm LV: 7.6 mm CM: 3.5 mm TIB: 22.7 mm G.Age: 18w 0d 69 % CI: 81.0 % 70 - 86 FL/HC: 19.7 % 14.6 - 17.6 HC/AC: 1.09 1.07 - 1.29 FL/BPD: 70.7 % FL/AC: 21.5 % 20 - 24 Est. FW: 259 gm 0 lb 9 oz > 99 % FW Discordancy: 0 \ 17 % GESTATIONAL AGE (FETUS B): U/S Today: 18w 4d KARTIK: 05/09/23 Best: 17w 3d Det. By: Early KARTIK: 05/17/23 Ultrasound (10/18/22) TARGETED ANATOMY (FETUS B): Central Nervous System Calvarium/Cranial V.: Appears normal Intracranial Zuri: Appears normal Cavum: Appears normal Parenchyma: Appears Normal Lateral Ventricles: Appears normal Choroid Plexus: Appears normal Cereb./Vermis: Not well visualized Cisterna Magna: Appears normal Midline Falx: Appears Normal Spine Cervical: Appears normal Thoracic: Appears normal Lumbar: Appears normal Sacral: Appears normal Head/Neck Face: Could not document Lips: Could not document Neck: Appears normal Nuchal Fold: Appears normal Nasal Bone: Could Not Document Palate: Could not document Profile: Could not document Orbits/Eyes: Could not document Mandible: Could not document Maxilla: Could not document Thorax Thoracic Contour: Appears normal Lungs: Could not document 4 Chamber View: Could not document Cardiac Activity: Appears Normal Cardiac Rhythm: Normal Cardiac Situs: Appears normal Rt Outflow Tract: Could not document Lt Outflow Tract: Could not document Aortic Arch: Could not document Ductal Arch: Could not document SVC: Could not document Interventr. Septum: Could not document Cardiac [place]: Appears normal Diaphragm: Could not document 3 Vessel View: Appears normal 3 V Trachea View: Not well visualized IVC: Could not document Crossing: Could not document Abdomen Ventral Wall: Appears normal Cord Insertion: Appears normal Situs: Appears normal Stomach: Appears normal Lt Kidney: Appears normal Rt Kidney: Appears normal Bladder: Appears normal Bowel: Appears normal Extremities Lt Humerus: Appears normal Rt Humerus: Appears normal Lt Forearm: Appears normal Rt Forearm: Appears normal Lt Hand: Appears normal Rt Hand: Appears normal Lt Femur: Appears normal Rt Femur: Appears normal Lt Lower Leg: Appears normal Rt Lower Leg: Appears normal Lt Foot: Could not document Rt Foot: Could not document Other Umbilical Cord: Appears normal Masses: None visualized Genitalia: Male DOPPLER - VESSELS (FETUS B): Middle Cerebral Artery S/D PI PSV MoM (cm/s) 4.49 1.52 23.85 1.06 CERVIX UTERUS ADNEXA: Cervix Normal appearance by abdominal scan Uterus Gravid uterus Right Ovary Size(cm) 3.53 x 1.42 x 1.32 Vol(ml): 3.46 Visualized Left Ovary Size(cm) 2.73 x 2.03 x 1.44 Vol(ml): 4.18 Visualized Adnexa No adnexal masses identified COMMENTS: 1. Ultrasound is not diagnostic for chromosomal abnormalities, will not detect all structural abnormalities, and is not diagnostic for genetic disorders even if multiple exams are performed during a given . 2. Anatomic survey and heart echo are incomplete due to early gestational age. Marisel Charles MD Electronically Signed Final Report 12/10/2022 15:09 IMPRESSION: 1. [place] chorionic Di amniotic Twin Gestation. 2. Twin A - Lower Right i. Intrauterine size consistent with assigned KARTIK. ii. Velamentous cord insertion visualized. iii. Stomach and bladder visualized. iv. MCA PSV = 27.43, 1.21 MoM which is in the unremarkable range for the evaluation of anemia. v. Amniotic fluid volume assessment (DVP) is normal. 3. Twin B - Upper Left i. Intrauterine with EFW at greater than the 99th percentile. AC measures at the 91st percentile. ii. Stomach and bladder visualized. iii. MCA PSV = 23.85, 1.06 MoM which is in the unremarkable range for the evaluation of anemia. iv. Amniotic fluid volume assessment (DVP) is normal. 4. There is a 17% discordancy. 5. Circumvallate placenta visualized. RECOMMENDATIONS: 1. Please see [facility] consultation documentation from today's encounter. 2. Patient is scheduled in two weeks for TTTS protocol. 3. Patient is scheduled in 4 weeks for anatomic surveys, heart ECHOs, and cervical length. 4. Subsequent follow up or other follow up as clinically determined by primary OB provider unless otherwise specified by [facility]. 5. Results forwarded to ordering provider so they can follow up with the patient as necessary. The copy-to physician of this order is OSMANY Goodwin The ordering physician of this order is MARISEL Vázquez us Osmany Bella DO IMG OB US PROCEDURES Final Resul t documented in this encounter Visit Diagnoses Not on filedocumented in this encounter
--- OUTSIDE RECORDS SUMMARY | 2024-10-03 19:00 | XMS_ITS | Encounter Summary ---
Author Organization [employer] Address [id number] [address] [place] [address] Care Team Providers Care Hoop Riveting Machine Operator Name Role Phone No Pcp, No Pcp Primary Care Provider Unavailabl e Encounter Details Date Type Department Care Team (Late st Contact Info) Description 09/09/2023 Orders Only [facility] [address] [place] [address] Estefany Hilario LPN Encounter for screening for other genetic defects Social History Tobacco Use Types Packs/Day Years [...] often do you attend chur ch or religion services? Never 03/26/2021 Do you belong to any clubs o r organizations such as taoist groups, unions, fraternal or athletic groups, or [...] Answer Date Recorded Total Score 4 08/29/2023 [facility] - [...] things needed for daily living? No 03/26/2021 [place] Depression Scale Answer Date Recorded [place] Depression Scale Total 13 09/12/2023 The thought of harming myself has occurred to me . Never 09/12/2023 Housing Instability Answer Date Recorde d Are you worried or concerned that in the next two months you may not have stable housing that you own, rent or stay in as a part of a household? No 08/29/2023 Childcare Answer Date Recorded Do problems getting [...] got money to buy more. Never True 09/12/2023 Within the past 12 months th e food we bought just didn't last and we didn't have money to get more. Never True 09/12/2023 Purpose - Life Answer Date Recorded I have a purpose and direction in my life. Tiffanieith er Agree nor Disagree 03/26/2021 Education Answer Date Recorded What is the highest level of school you have completed or the highest degree you have received? 12th grade 03/26/2021 Comments Yes Sex and Gender Information Value Date Recorded Sex Assigned at Female 09/18/2024 11:48 PM EDT Legal Sex Female 12:00 PM EDT Gender Identity Female 09/18/2024 11:48 PM EDT Sexual Orientation Not on file documented as of this encounter Progress Notes * FRANCES Ward - 09/09/2023 8:19 AM EDT Reviewed. Low risk for trisomy defects, gender available upon request. FRANCES Ward 09/10/23 1355 documented in this encounter Plan of Treatment [...] Procedure Name Priority Date/Time Associated Diagnosis Comments [facility] NON[facility] Routine 08/29/2023 Encounter for screening for other genetic defects documented in this encounter Results * [facility] (08/29/2023) Blood 08/29/2023 Narrative MANUALLY TRANSCRIBED RESULTS - 09/09/2023 8:19 AM EDT SEE ATTACHED SCANNED REPORT us Reyna Diaz MARKET INVESTIGATOR[facility] LAB BLOOD ORDERABLES Fin al Result MANUALLY TRANSCRIBED RESULTS documented in this encounter Visit Diagnoses Diagnosis Encounter for screening for other genetic defects documented in this encounter Additional Health Concerns Infection Onset Date Last Indicated Resolved Time Respiratory Rule-Out 06/25/2024 06/25/2024 025 5:33 PM EST Influenza 06/25/2024 06/25/2024 07/02/2024 11:1 2 PM EST Assessment Noted Time PHQ-9 Depression Total Score: 4 08/29/19 24 12:30 PM EDT documented as of this encounter Care Teams Hoop Riveting Machine Operator Relationship Specialty Start Date End Date No Pcp, [place] [address] PCP - General Family Medicine 09/01/24 documented as of this encounter
--- OUTSIDE RECORDS SUMMARY | 2024-10-03 19:00 | XMS_ITS | Encounter Summary ---
Author Organization [facility] Address [address] [place] [address] Care Team Providers Care Oil And Gas Lease Pumper Name Role Phone Unavailable Primary Care Provider Unavailabl e Encounter Details Date Type Department Care Team (Late Contact Info) Description 11/27/2022 Abstract [facility] OB [address] [place] [id number] Mya Kaplan PA [address] [place] [address] [place] [address] Social History Tobacco Use Types Packs/Day [...] Description 10/05/2024 10:30 AM EDT Routine [facility] OB [address] [place] [address] Mya Kaplan PA [address] [place] [address] [place] [address] documented as of this encounter Visit Diagnoses Not on filedocumented in this encounter
--- OUTSIDE RECORDS SUMMARY | 2024-10-03 19:00 | XMS_ITS | Encounter Summary ---
Author Organization [facility] Address [address] [facility] [place] [address] Care Team Providers Care Dock Or Pier Laborer Name Role Phone Unavailable Primary Care Provider Unavailabl e Encounter Details Date Type Department Care Team (Late Contact Info) Description 01/01/2023 Abstract [facility] OB [address] [place] [address] Osmany Bella DO [address] [place] [address] [place] [address] Social History Tobacco Use Types Packs/Day [...] Description 10/05/2024 10:30 AM EDT Routine [facility] OB [address] [place] [address] Mya Kaplan PA [address] [place] [address] documented as of this encounter Visit Diagnoses Not on filedocumented in this encounter
--- OUTSIDE RECORDS SUMMARY | 2024-10-03 19:00 | XMS_ITS | Encounter Summary ---
Author Organization [employer] tem Address [facility] [place][id number] [address] [place] [address] Care Team Providers Care Business Continuity Management Director Name Role Phone No Pcp, No Pcp Primary Care Provider Unavailabl e Encounter Details Date Type Department Care Team (Late st Contact Info) Description 05/23/2021 Telephone [facility] [address] [place] [address] [place] [address] Mona Delvalle CMA Social History [...] often do you attend chur ch or hoahaoism services? Never 03/26/2021 Do you belong to any clubs o r organizations such as yarsani groups, unions, fraternal or athletic groups, or [...] 03/26/2021 PHQ-2 Answer Date Recorded Total Score 5 05/25/2021 [facility] of Occupat ional Health - Occupational Stress [...] a purpose and direction in my life. Giuila hanna Agree nor Disagree 03/26/2021 Education Answer [...] Exposure Response Date Recorded In the last month, have you been in contact with someone who was confirmed or suspected to have Coronavirus / COVID-19? Yes 05/25/2021 8:35 AM EST documented as of this encounter Miscellaneous Notes * Telephone Encounter - Mona Delvalle CMA - 05/23/2021 11:37 AM EST CALLED IN WANTING A WORK NOTE. documented in this encounter Plan of Treatment [...] documented as of this encounter Care Teams Business Continuity Management Director Relationship Specialty Start Date End Date No Pcp, No Pcp [place] [address] PCP - General Family Medicine 09/01/24 documented as of this encounter
--- OUTSIDE RECORDS SUMMARY | 2024-10-03 19:00 | XMS_ITS | Encounter Summary ---
Author Organization [employer] tem Address [facility] [place]-[id number] [address] [place] [address] Care Team Providers Care Team Manager Name Role Phone No Pcp, No Pcp Primary Care Provider Unavailabl e Encounter Details Date Type Department Care Team (Late st Contact Info) Description 09/17/2023 Telephone [facility] [address] [place] [address] Tameka Abebe Social History Tobacco Use Types Packs/Day Years [...] often do you attend chur ch or jainism services? Never 03/26/2021 Do you belong to [...] Answer Date Recorded Total Score 4 08/29/2023 [facility] of Occupat ional Health - Occupational Stress [...] things needed for daily living? No 03/26/2021 [place] Depression Scale Answer Date Recorded [place] Depression Scale Total 13 09/12/2023 The thought [...] Recorded Do you need help finding a [facility] career center and/or a training program? No [...] encounter Miscellaneous Notes * Telephone Encounter - Tameka Abebe - 09/17/2023 8:42 AM EDT Patient called states she is having indigestion is causing nausea/vomiting taking prevacid 30 mg twice a day without results requesting something stronger * Telephone Encounter - FRANCES Ward - 09/17/2023 8:42 AM EDT I attempted to returned patient's call, there was no answer. Prevacid is the strongest medication for heartburn we can give in . I do recommend the patient use Tums as needed. She also needs to traveler changer to frequent small meals, she should not eat for at least 2 hours prior to laying down. After eating she should remain upright for at least an hour. I recommend avoiding high fat, spicy and high caffeine foods. All of these can increase heartburnsymptoms. * Telephone Encounter - Estefany Hilario LPN - 09/17/2023 8:42 AM EDT L/m on voicemail to call back regarding labs results. * Telephone Encounter - Estefany Hilario LPN - 09/17/2023 8:42 AM EDT Letter sent to patient to contact office due to not able to reach patient. documented in this encounter Plan of Treatment [...] documented as of this encounter Care Teams Team Manager Relationship Specialty Start Date End Date No Pcp, [place] [address] PCP - General Family Medicine 09/01/24 documented as of this encounter
--- OUTSIDE RECORDS SUMMARY | 2024-10-03 19:00 | XMS_ITS | Encounter Summary ---
Author Organization [employer] Address [facility] [place]-[id number] [address] [place] [address] Care Team Providers Care Mailing Section Clerk Name Role Phone No Pcp, No Pcp Primary Care Provider Unavailabl e Encounter Details Date Type Department Care Team (Late st Contact Info) Description 05/17/2021 Orders Only [facility] [address] [place] [address] [place] [address] Mona Delvalle CMA Body aches; Cough Social History Tobacco Use Types Packs/Day Years [...] often do you attend chur ch or samaritan services? Never 03/26/2021 Do you belong to any clubs o r organizations such as jehovah's witness groups, unions, fraternal or athletic groups, or [...] Answer Date Recorded Total Score 13 03/26/2021 [facility] of Occupat ional Health - Occupational [...] Do you need help finding a l al career center and/or a training program? No [...] Procedure Name Priority Date/Time Associated Diagnosis Comments SARS COV 2 (COVID-19) STAT 05/11/2021 Body aches Cough documented in this encounter Results * SARS COV 2 (COVID-19)[Lab Collect] (05/11/2021) EXTERNAL SARS COV 2 Negative Negative [facility] NASOPHARYNGEAL 05/11/2021 Loretta Brice APRN-ENGLISH FACULTY MEMBER MICROBIOLOGY - GENE RAL ORDERABLES Final Result [facility] documented in this encounter Visit Diagnoses Diagnosis Body aches Generalized pain Cough documented in this encounter Additional Health Concerns Infection Onset Date Last Indicated Resolved Time COVID-19 Rule-Out 05/17/2021 05/11/2021 05/17/2021 12:58 PM EST Respiratory Rule-Out 06/25/2024 06/25/2024 025 5:33 PM EST Influenza 06/25/2024 06/25/2024 07/02/2024 11:1 2 PM EST Assessment Noted Time PHQ-9 Depression Total Score: 13 021 6:24 PM EST documented as of this encounter Care Teams Mailing Section Clerk Relationship Specialty Start Date End Date No Pcp, [place] [address] PCP - General Family Medicine 09/01/24 documented as of this encounter
--- OUTSIDE RECORDS SUMMARY | 2024-10-03 19:00 | XMS_ITS | Encounter Summary ---
Author Organization [employer] tem Address [facility] [place]-[id number] [address] [place] [address] Care Team Providers Care Research Soil Scientist Name Role Phone No Pcp, No Pcp Primary Care Provider Unavailabl e Reason for Visit * Reason Comments Med Refill Encounter Details Date Type Department Care Team (Late st Contact Info) Description 12/14/2023 Refill [facility] [address] [place] [phone] Gwen Sutton, DRY WALL PLASTERER-[facility] [address] [place], [place] [id number] Social History Tobacco Use Types Packs/Day Years [...] often do you attend chur ch or baptist services? Never 03/26/2021 Do you belong to any clubs o r organizations such as samaritan groups, unions, fraternal or athletic groups, or [...] Answer Date Recorded Total Score 4 08/29/2023 [facility] of Occupat ional Health - Occupational Stress [...] things needed for daily living? No 03/26/2021 [place] Depression Scale Answer Date Recorded [place] Depression Scale Total 13 09/12/2023 The thought of harming myself has occurred to me . Never 09/12/2023 Housing Instability Answer Date Recorde d Are you worried or concerned that in the next two months you may not have stable housing that you own, rent or stay in as a part of a household? No 11/27/2023 Childcare Answer Date Recorded Do problems getting child ca re make it difficult for you to work or study? No 08/29/2023 Employment Answer Date Recorded Do you need help finding a [facility] career center and/or a training program? No 03/26/2021 Hunger Screening Answer Date Recorded Within the past 12 months we worried whether our food would run out before we got money to buy more. Never True 11/27/2023 Within the past 12 months th e food we bought just didn't last and we didn't have money to get more. Never True 11/27/2023 Purpose - Life Answer Date Recorded I [...] encounter Miscellaneous Notes * Telephone Encounter - WILMER Berumen - 12/14/2023 8:27 PM EDT Patient has transferred care to Dr. Bella documented in this encounter Plan of Treatment [...] documented as of this encounter Care Teams Research Soil Scientist Relationship Specialty Start Date End Date No Pcp, [place] [address] PCP - General Family Medicine 09/01/24 documented as of this encounter
--- OUTSIDE RECORDS SUMMARY | 2024-10-03 19:00 | XMS_ITS | Encounter Summary ---
Author Organization [employer] Address [id number] [address] [place] [address] Care Team Providers Care Production Operations Manager Name Role Phone No Pcp, No Pcp Primary Care Provider Unavailabl e Encounter Details Date Type Department Care Team (Late st Contact Info) Description 09/07/2020 Telephone [facility] [address] [place] [address] [place] [address] Cooper Goff CMA Social History Tobacco Use Types Packs/Day Years Used Date Smoking Tobacco: Never Smokeless Tobacco: Never Alcohol Use Standard Drinks/Week Comments No 0 (1 standard drink = 0.6 oz pur e alcohol) PHQ-2 Answer Date Recorded Total Score 0 06/24/2019 Childcare Answer Date Recorded Childcare Unknown 10/15/2018 Employment Answer Date Recorded Employment Unknown 10/15/2018 Purpose - Life Answer Date Recorded Purpose and direction in life Unknown Comments No Sex and Gender Information Value Date Recorded Sex Assigned at Female 09/18/2024 11:48 PM EDT Legal Sex Female 12:00 PM EDT Gender Identity Female 09/18/2024 11:48 PM EDT Sexual Orientation Not on file COVID-19 Exposure Response Date Recorded In the last month, have you been in contact with someone who was confirmed or suspected to have Coronavirus / COVID-19? No / Unsure 09/07/2020 8:00 AM EDT documented as of this encounter Miscellaneous Notes * Telephone Encounter - Cooper Vega CMA - 09/07/2020 9:18 AM EDT Georgie called and said that she was here to see you. She has no improvement and symptoms have worsened a bit. The ear drops she has are not helping. She has now been dizzy, vomiting and almost passed out yesterday. She still has head congestion, runny nose and coughing. Please advise. * Telephone Encounter - WILMER Pizarro - 09/07/2020 9:18 AM EDT Zpack sent to pharmacy * Telephone Encounter - Cooper Vega CMA - 09/07/2020 9:18 AM EDT Attempted to call pt yesterday and call couldn't be completed. Called and left a vm this morning explaining that Iona sent a rx to the pharmacy. documented in this encounter Plan of Treatment [...] Date Last Indicated Resolved Time COVID-19 Rule-Out 03/14/2021 03/08/2021 03/14/2021 4:09 PM EST COVID-19 Rule-Out 05/17/2021 05/11/2021 05/17/2021 12:58 PM EST Respiratory Rule-Out 06/25/2024 06/25/2024 025 5:33 PM EST Influenza 06/25/2024 06/25/2024 07/02/2024 11:1 2 PM EST Assessment Noted Time PHQ-9 Depression Total Score: 0 06/24/19 3:00 PM EST documented as of this encounter Care Teams Production Operations Manager Relationship Specialty Start Date End Date No Pcp, [place] [address] PCP - General Family Medicine 09/01/24 documented as of this encounter
--- OUTSIDE RECORDS SUMMARY | 2024-10-03 19:00 | XMS_ITS | Encounter Summary ---
Author Organization [employer] Address [facility] [place]-[id number] [address] [place] [address] Care Team Providers Care Bookbinding Machine Operator Name Role Phone No Pcp, No Pcp Primary Care Provider Unavailabl e Encounter Details Date Type Department Care Team (Late st Contact Info) Description 08/29/2023 Telephone [facility] [address] [facility] [address] [place] [address] Julia Morgan CMA Social History Tobacco Use Types Packs/Day [...] often do you attend chur ch or restorationist services? Never 03/26/2021 Do you belong to any clubs o r organizations such as druze groups, unions, fraternal or athletic groups, or [...] Answer Date Recorded Total Score 4 08/29/2023 [facility] of Occupat ional Health - [...] things needed for daily living? No 03/26/2021 [place] Depression Scale Answer Date Recorded [place] Depression Scale Total 7 04/05/2023 The thought [...] Recorded Do you need help finding a [facility] career center and/or a training program? No 03/26/2021 Hunger Screening Answer Date Recorded Within the past 12 months we worried whether our food would run out before we got money to buy more. Never True 08/29/2023 Within the past 12 months th e food we bought just didn't last and we didn't have money to get more. Never True 08/29/2023 Purpose - Life Answer Date Recorded I [...] as of this encounter Functional Status * Within the last year, have you been humiliated or emotionally abused in other ways by your partner or ex-partner? Answer Date of Assessment Author No 08/29/2023 12:30 PM EDT Mychart, Generic * Within the last year, have you been afraid of your partner or ex-partner? Answer Date of Assessment Author No 08/29/2023 12:30 PM EDT Mychart, Generic * Within the last year, have you been raped or forced to have any kind of sexual activity by your partner or ex-partner? Answer Date of Assessment Author No 08/29/2023 12:30 PM EDT Mychart, Generic * Within the last year, have you been kicked, hit, slapped, or otherwise physically hurt by your partner or ex-partner? Answer Date of Assessment Author No 08/29/2023 12:30 PM EDT Mychart, Generic documented as of this encounter Miscellaneous Notes * Telephone Encounter - Julia Morgan CMA - 08/29/2023 8:57 AM EDT Tried calling pt to see if she needed to be seen sooner then her appt on Saturday09/04/23. L/m for pt to call the office back. documented in this encounter Plan of Treatment [...] documented as of this encounter Care Teams Bookbinding Machine Operator Relationship Specialty Start Date End Date No Pcp[place] [address] PCP - General Family Medicine 09/01/24 documented as of this encounter
--- OUTSIDE RECORDS SUMMARY | 2024-10-03 19:00 | XMS_ITS | Encounter Summary ---
Author Organization [employer] Address [id number] [address] [place] [address] Care Team Providers Care Construction Project Assistant Name Role Phone No Pcp, No Pcp Primary Care Provider Unavailabl e Encounter Details Date Type Department Care Team (Late st Contact Info) Description 10/05/2020 Telephone [facility] [address] [place] [address] [place] [address] Cooper Goff CMA Social History [...] have Coronavirus / COVID-19? No / Unsure 10/05/2020 8:45 AM EDT documented as of this encounter Miscellaneous Notes * Telephone Encounter - Cooper Vega CMA - 10/05/2020 11:54 AM EDT ----- Message from WILMER Pizarro sent at 10/05/2020 11:06 AM EDT ----- Normal esophagus and upper GI * Telephone Encounter - Cooper Vega CMA - 10/05/2020 11:54 AM EDT Left pt vm that test came back normal. documented in this encounter Plan of Treatment [...] Noted Time PHQ-9 Depression Total Score: 0 02/19/20 20 3:00 PM EST documented as of this encounter Care Teams Construction Project Assistant Relationship Specialty Start Date End Date No Pcp, [place] [address] PCP - General Family Medicine 09/01/24 documented as of this encounter
--- OUTSIDE RECORDS SUMMARY | 2024-10-03 19:00 | XMS_ITS | Encounter Summary ---
Author Organization [employer] Address [facility] [place]-[id number] [address] [place] [address] Care Team Providers Care Corporate Lawyer Name Role Phone No Pcp, No Pcp Primary Care Provider Unavailabl e Reason for Visit * Reason Comments Med Refill Encounter Details Date Type Department Care Team (Late st Contact Info) Description 11/12/2020 Refill [facility] [address] [place] [address] [place] [phone] Iona Layne, TITLE AGENT-INSTRUMENT MAN [address] [place] [address] Hematemesis without nausea Social History Tobacco Use Types Packs/Day Years [...] have Coronavirus / COVID-19? No / Unsure 10/19/2020 2:15 PM EDT documented as of this encounter [...] as of this encounter Visit Diagnoses Diagnosis Hematemesis without nausea documented in this encounter Additional Health Concerns [...] documented as of this encounter Care Teams Corporate Lawyer Relationship Specialty Start Date End Date No Pcp, [place] [address] PCP - General Family Medicine 09/01/24 documented as of this encounter
--- OUTSIDE RECORDS SUMMARY | 2024-10-03 19:00 | XMS_ITS | Encounter Summary ---
Author Organization [facility] Address [address] [place] [address] Care Team Providers Care Route Rider Supervisor Name Role Phone Unavailable Primary Care Provider Unavailabl e Encounter Details Date Type Department Care Team (Late Contact Info) Description 12/14/2022 Abstract [facility] [address] [place] [address] Osmany Bella DO [address] [place] [address] [place] [address] Social History Tobacco Use Types Packs/Day [...] Description 10/05/2024 10:30 AM EDT Routine [facility] [address] [place] [address] Mya Kaplan PA [address] [place] [address] documented as of this encounter Visit Diagnoses Not on filedocumented in this encounter
--- OUTSIDE RECORDS SUMMARY | 2024-10-03 19:00 | XMS_ITS | Encounter Summary ---
Author Organization [employer] tem Address [facility] [id number] [address] [place] [address] Care Team Providers Care Traffic Control Specialist Name Role Phone No Pcp, No Pcp Primary Care Provider Unavailabl e Encounter Details Date Type Department Care Team (Late st Contact Info) Description 03/06/2021 Telephone [facility] [address] [place] [address] [place] [address] Madeline Tubbs RMA Social History Tobacco Use Types Packs/Day Years [...] encounter Miscellaneous Notes * Telephone Encounter - NANDO Rodriguez - 03/06/2021 4:17 PM EDT Georgie called and stated that she's been experiencing vomiting, diarrhea, and tiredness for about aweek, her mom stated that she believes it might be mono. Georgie also stated that she thought maybe it was her control. Please advise. * Telephone Encounter - WILMER Watkins - 03/06/2021 4:17 PM EDT I recommend a covid test before brought into office for appt. Will place order * Telephone Encounter - NANDO Rodriguez - 03/06/2021 4:17 PM EDT Called patient and lvm informing her that COVID test was ordered and sent over to [facility]. documented in this encounter Plan of Treatment [...] documented as of this encounter Care Teams Traffic Control Specialist Relationship Specialty Start Date End Date No Pcp, [place] [address] PCP - General Family Medicine 09/01/24 documented as of this encounter
--- OUTSIDE RECORDS SUMMARY | 2024-10-03 19:00 | XMS_ITS | Encounter Summary ---
Author Organization [employer] Address [facility] [place]-[id number] [address] [place] [address] Care Team Providers Care Step Down Nurse Name Role Phone No Pcp, No Pcp Primary Care Provider Unavailabl e Encounter Details Date Type Department Care Team (Late st Contact Info) Description 10/21/2023 Telephone [facility] [address] [place] [address] Dania Olsen RMA Social History Tobacco Use Types Packs/Day [...] often do you attend chur ch or nondenominational services? Never 03/26/2021 Do you belong to any clubs o r organizations such as advent groups, unions, fraternal or athletic groups, or [...] Answer Date Recorded Total Score 4 08/29/2023 [facility] of Occupat ional Health - Occupational Stress [...] things needed for daily living? No 03/26/2021 [place] Depression Scale Answer Date Recorded [place] Depression Scale Total 13 09/12/2023 The thought [...] Recorded Do you need help finding a [facility] career center and/or a training program? No 03/26/2021 Hunger Screening Answer Date Recorded Within the past 12 months we worried whether our food would run out before we got money to buy more. Sometimes True 024 Within the past 12 months th e food we bought just didn't last and we didn't have money to get more. Sometimes True 10/21/2023 Purpose - Life Answer Date Recorded I [...] Miscellaneous Notes * Telephone Encounter - NANDO Funes - 10/21/2023 3:18 PM EDT Patient called and stated she went to ER with cramping,today she is cramping and had blurry vision and passed out and is [facility].As she was talking to me they came in and took her for a US. documented in this encounter Plan of Treatment [...] documented as of this encounter Care Teams Step Down Nurse Relationship Specialty Start Date End Date No Pcp, [place] [address] PCP - General Family Medicine 09/01/24 documented as of this encounter
--- OUTSIDE RECORDS SUMMARY | 2024-10-03 19:00 | XMS_ITS | Encounter Summary ---
Author Organization [facility] Address [facility] [place]-[id number] [address] [place] [address] Care Team Providers Care Business Continuity Consultant Name Role Phone No Pcp, No Pcp Primary Care Provider Unavailabl e Encounter Details Date Type Department Care Team (Late st Contact Info) Description 01/09/2023 Orders Only [facility] [address] [place] [phone] Ref Prov, [place] [address] Social History Tobacco Use Types Packs/Day Years [...] often do you attend chur ch or synagogue services? Never 03/26/2021 Do you belong to any clubs o r organizations such as protestant groups, unions, fraternal or athletic groups, or [...] Answer Date Recorded Total Score 15 08/03/2021 [facility] of Occupat ional Health - Occupational [...] Recorded Do you need help finding a [facility] career [facility] and/or a training program? No [...] Procedure Name Priority Date/Time Associated Diagnosis Comments AFP SINGLE MARKER SCRN, MATERNAL, SERUM Routine 01/09/2023 3:03 PM EDT documented in this encounter Results * AFP Single Marker Scrn, Maternal, Serum (01/09/2023 3:03 PM EDT) us Not In System Ref Prov LAB BLOOD ORDERABLES Tracy l Result MANUALLY TRANSCRIBED RESULTS documented in this encounter Visit Diagnoses Not on filedocumented in this encounter Additional Health Concerns Infection Onset Date Last Indicated Resolved Time Respiratory Rule-Out 06/25/2024 06/25/2024 025 5:33 PM EST Influenza 06/25/2024 06/25/2024 07/02/2024 11:1 2 PM EST Assessment Noted Time PHQ-9 Depression Total Score: 15 022 10:43 AM EDT documented as of this encounter Care Teams Business Continuity Consultant Relationship Specialty Start Date End Date No Pcp, No Pcp [place] [address] PCP - General Family Medicine 09/01/24 documented as of this encounter
--- OUTSIDE RECORDS SUMMARY | 2024-10-03 19:00 | XMS_ITS | Encounter Summary ---
Author Organization [facility] Address [address] [facility] [place] [address] Care Team Providers Care Level Vial Curvature Gauger Name Role Phone Unavailable Primary Care Provider Unavailabl e Encounter Details Date Type Department Care Team (Late Contact Info) Description 11/02/2022 Abstract [facility] [address] [place] [address] Osmany Bella DO [address] [place] [address] [place] [address] Social History Tobacco Use Types Packs/Day [...] Description 10/05/2024 10:30 AM EDT Routine [facility] [address] [place] [address] Mya Kaplan PA [address] [place] [address] documented as of this encounter Visit Diagnoses Not on filedocumented in this encounter
--- OUTSIDE RECORDS SUMMARY | 2024-10-03 19:00 | XMS_ITS | Encounter Summary ---
Author Organization [employer] Address [id number] [address] [place] [address] Care Team Providers Care Safety Sealer Name Role Phone No Pcp, No Pcp Primary Care Provider Unavailabl e Encounter Details Date Type Department Care Team (Late st Contact Info) Description 09/11/2023 Orders Only [facility] [address] [place] [address] Estefany Hilario LPN Screening for genetic disease carrier status Social History Tobacco Use Types Packs/Day Years [...] any clubs o r organizations such as pentecostalism groups, unions, fraternal or athletic groups, or [...] Answer Date Recorded Total Score 4 08/29/2023 [facility] Occupat ional Health - Occupational Stress [...] things needed for daily living? No 03/26/2021 [place] Depression Scale Answer Date Recorded [place] Depression Scale Total 13 09/12/2023 The thought [...] Procedure Name Priority Date/Time Associated Diagnosis Comments CARRIER STUDY NON-[place] Routine 08/29/2023 Screening for genetic disease carrier status documented in this encounter Results * Carrier Study Non[facility] (08/29/2023) Blood 08/29/2023 Narrative MANUALLY TRANSCRIBED RESULTS - 09/11/2023 1:31 PM EDT SEE ATTACHED SCANNED REPORT us Reyna Diaz SYSTEMS AUDITOR[facility] LAB BLOOD ORDERABLES Fin al Result MANUALLY TRANSCRIBED RESULTS documented in this encounter Visit Diagnoses Diagnosis Screening for genetic disease carrier status documented in this encounter Additional Health Concerns Infection Onset Date Last Indicated Resolved Time Respiratory Rule-Out 06/25/2024 06/25/2024 025 5:33 PM EST Influenza 06/25/2024 06/25/2024 07/02/2024 11:1 2 PM EST Assessment Noted Time PHQ-9 Depression Total Score: 4 08/29/19 24 12:30 PM EDT documented as of this encounter Care Teams Safety Sealer Relationship Specialty Start Date End Date No Pcp, [place] [address] PCP - General Family Medicine 09/01/24 documented as of this encounter
--- OUTSIDE RECORDS SUMMARY | 2024-10-03 19:00 | XMS_ITS | Encounter Summary ---
Author Organization [employer] Address [id number] [address] [place] [address] Care Team Providers Care Jig Bore Operator Name Role Phone No Pcp, No Pcp Primary Care Provider Unavailabl e Encounter Details Date Type Department Care Team (Late st Contact Info) Description 08/03/2021 Documentation [facility] [address] [place] [address] Mona Delvalle CMA Social History [...] often do you attend chur ch or christian services? Never 03/26/2021 Do you belong to [...] Answer Date Recorded Total Score 15 08/03/2021 [facility] - Occupational [...] documented as of this encounter Care Teams Jig Bore Operator Relationship Specialty Start Date End Date No Pcp, [place] [address] PCP - General Family Medicine 09/01/24 documented as of this encounter
--- OUTSIDE RECORDS SUMMARY | 2024-10-03 19:00 | XMS_ITS | Encounter Summary ---
Author Organization [employer] Address [id number] [address] [place] [address] Care Team Providers Care Marketing Sales Representative Name Role Phone No Pcp, No Pcp Primary Care Provider Unavailabl e Reason for Visit * Reason Onset Date Comments Med Refill 09/07/2020 Encounter Details Date Type Department Care Team (Late st Contact Info) Description 09/07/2020 Refill [facility] [address] [place] [address] [address] [address] Cooper Goff CMA Social History [...] documented as of this encounter Care Teams Marketing Sales Representative Relationship Specialty Start Date End Date No Pcp, [place] [address] PCP - General Family Medicine 09/01/24 documented as of this encounter
--- OUTSIDE RECORDS SUMMARY | 2024-10-03 19:02 | XMS_ITS | CCD ---
Author Organization [facility] Care Team Providers Care [employer] Hand Name Role Phone Amaya Luu Unavailable PURNIMAC, DR COBOS Primary Care Unavailable CECIL ., RENETTA Attending Unavailable CECIL .RENETTA Admitting Unavailable REQUEST, [...] CARLTON Attending Unavailab REINA Lewis Attending Unavailable NO PCP, NO PCP Primary Care Unavailable AMAYA CRUZ Referring Unavailable NO PCP, NO PCP Primary Care Unavailable NO PCP, NO PCP Primary Care Unavailable AMAYA CRUZ Referring Unavailable NO PCP, NO PCP Primary Care Unavailable NO PCP, NO PCP Primary Care Unavailable MARLY TSUBBS Attending Unavailable NO PCP, NO PCP Primary Care Unavailable YARELI VILLAREAL Attending Unav ailable MALLIKA CONN Attending Unavailable NO PCP, NO [...] No Pcp Primary Care Provider Unavailabl e Jena DO, Osmany R Primary Care Provider JENA, OSMANY Attending Unavailable JENA, OSMANY Attending Unavailable JENA, OSMANY Referring Unavailable JENA, OSMANY Attending Unavailable JENA, OSMANY Attending Unavailable GUERRERO JOHNSON M Admitting Unavailable GUERRERO JOHNSON Attending Unavailable NO PCP, NO PCP Primary Care Unavailable DEVYN MCBRIDE Admitting Unavailable DEVYN MCBRIDE Attending Unavailable NO PCP, NO PCP Primary Care Unavailable RAE, DEVYN Attending Unavailable RAE, DEVYN Referring Unavailable NO PCP, NO PCP Primary [...] Care Unavailable JENA, OSMANY R Referring Unavailable NO PCP, NO PCP Primary Care Unavailable NO PCP, NO PCP Primary Care Unavailable AARON REINOSO Attending Unavailabl JEAN Zhang Admitting Unavailable JEAN BENTON Attending Unavailable AARON REINOSO Referring Unavailabl e NO PCP, NO PCP Primary Care Unavailable MARISEL RICKETTS Consulting Unavailable IZA MCKEON Consulting Unavailable DONAVON, MELISA Consulting Unavailable JENY LUNDY Referring Unavailable NO PCP, NO PCP Primary Care Unavailable NO PCP, NO PCP Primary Care Unavailable JENA, OSMANY R Referring Unavailable RAPHAEL, MELISA Admitting Unavailable RAPHAEL, MELISA Attending Unavailable NO PCP, NO PCP Primary Care Unavailable FLOWER, [facility] - Cons ulting Unavailable SYLVANIA, [facility] - Consulting Unavailable JENY LUNDY Referring Unavailable NO PCP, NO PCP Primary Care Unavailable Medications Current Medications Medication [...] 12 tablet 06/25/2024 Active polyethylene glycol 3350 33368 mg powder for oral solution (8 sources) [...] w/FA-DHA ( Gummies) 0.18-25 MG chewable tablet (12 sources) Start: 06-02-2024 MV & Min w/FA-DHA [...] Episodic Immunizations and screening for infectious disease (6 sources) Encounter for screening for infections with [...] episodes] Onset: 7 Resolved: 1 11-16-2022 Chronic Mood disorders (18 sources) Mood disorders; Translations: [Depression, unspecified] Onset: 2 Resolved: 4 08-03-2021 Other aftercare (2 sources) Patient encounter status; Translations: [Encounter for follow-up examination after completed treatment for conditions other than malignant neoplasm] 06-02-2024 Episodic Other complications of (1 source) Vomiting of , unspecified; Translations: [Vomiting of , unspecified] Onset: 3 Episodic Other complications of (1 source) Supervision of other high risk pregnancies, second [...] sources) Encounter for test, result positive; Translations: [Encounter for supervision of other normal , second trimester] Onset: 2 Resolved: 4 Episodic Other screening for suspected conditions (not mental disorders or infectious disease) (9 sources) Encounter for nonprocreative screening for genetic disease carrier status; Translations: [Encounter for screening for other genetic defects] Onset: 4 08-28-2023 Episodic Other upper respiratory infections (20 sources) Acute maxillary sinusitis; Translations: [Acute maxillary sinusitis, unspecified] Onset: 0 Resolved: 2 07-06-2021 Episodic Poisoning by other medications and drugs (1 source) Poisoning by unspecified drugs, medicaments and biological substances, accidental (unintentional), initial encounter; Translations: [Poisoning by unspecified drugs, medicaments and biological substances, accidental (unintentional), initial encounter] Onset: 5 Episodic Residual codes; unclassified (1 source) Personal [...] of ] 07-16-2024 Episodic Residual codes; unclassified (2 sources) Gestation period, 28 weeks; Translations: [28 weeks gestation of ] 09-02-2024 Episodic Residual codes; unclassified (1 source) 21 weeks gestation of ; Translations: [21 weeks gestation of ] Onset: 5 Episodic Residual codes; unclassified (1 source) 31 weeks gestation of ; Translations: [31 weeks gestation of ] Onset: 5 Episodic Spondylosis; intervertebral disc disorders; other back problems (20 sources) Acute back pain with sciatica; Translations: [Lumbago with sciatica, right side] Onset: 0 Resolved: 4 11-16-2022 Episodic Suicide and intentional self-inflicted injury (3 sources) Suicide attempt, initial encounter; Translations: [Suicidal ideations] Onset: 5 Episodic Unclassified (2 sources) Initial [...] Translations: [Other underimmunization status] Onset: 4 Unclassified (2 sources) Suicidal Onset: 5 Unclassified (1 source) Post covid-19 condition, unspecified; [...] unspecified headache type] Onset: 11-27-2023 08-28-2023 Episodic Mycoses (1 source) Candidiasis of vagina; Translations: [Vaginal yeast infection] 09-02-2023 Episodic Nausea and vomiting (2 sources) Nausea with vomiting, unspecified; Translations: [Nausea] Onset: 11-04-2022 Episodic Nonspecific chest pain (15 sources) Chest pain; Translations: [Chest pain, unspecified] Onset: 08-29-2023 Resolved: 09-12-2023 08-29-2023 Episodic Other complications of (1 source) Maternal care for excessive growth, unspecified trimester, not applicable or unspecified; Translations: [Maternal care for excessive growth, unspecified trimester, not applicable or unspecified] Onset: 08-29-2023 Episodic Other complications of (1 source) Supervision of with insufficient care, second trimester; Translations: [Supervision of with insufficient care, second trimester] Onset: 08-29-2023 Episodic Other complications of (19 [...] Episodic Other nutritional; endocrine; and metabolic disorders (1 source) Personal history of other endocrine, nutritional and metabolic disease; Translations: [Personal history of other endocrine, nutritional and metabolic disease] Onset: 08-30-2023 Episodic Other nutritional; endocrine; and metabolic disorders [...] [38 weeks gestation of ] 12-06-2023 Episodic Residual codes; unclassified (1 source) 12 weeks gestation of ; Translations: [12 weeks gestation of ] Onset: 05-15-2024 Episodic Substance-related disorders (18 sources) Drug use complicating , unspecified trimester; Translations: [Cannabis use, unspecified, uncomplicated] Onset: 08-29-2023 08-29-2023 Episodic Unclassified (1 source) Acute cough R05.1 Onset: 11-14-2021 Resolved: 11-14-2021 Urinary tract infections (20 sources) Urinary tract infection, site not specified; Translations: [Acute cystitis without hematuria] Onset: 07-06-2021 Resolved: 08-28-2023 11-16-2022 Episodic Results Test Name Value Interpretation Reference Range Facility CHLAMYDIA/GC BY PCR DANY SW ABon 09-23-2024 CHLAMYDIA/GC BY PCR DANY SWAB CHLAMYDIA DNA(PCR) Negative Chlamydia trachomatis not detected by nucleic acid amplification. This does not exclude the possibility of infection because results are dependent on adequate specimen collection. GONORRHOEAE DNA(PCR) Negative Neisseria gonorrhoeae not detected by nucleic acid amplification. This does not exclude the possibility of infection because results are dependent on adequate specimen collection. Normal [facility] Comment on above: Performed By: #### C MP #### [facility] ([facility]) [address] [place] [address] VIR URINALYSISon 09-23-2024 Bilirubin Ql (U) Negative Normal Negative [facility] Comment on above: Performed By: #### U A #### [facility] ([id number]) [address] [place] [address] VIR BLOOD/HGB Negative Normal Negative [facility] Comment on above: Performed By: #### U A #### [facility] ([id number]) [address] [place] [address] VIR Color (U) Yellow Normal Yellow, Colorless [facility] Comment on above: Performed By: #### U A #### [facility] ([id number]) [address] [place] [address] VIR Glucose Ql (U) Negative Normal Negative, 250 mg/dL, >1000 mg/dL [facility] Comment on above: Performed By: #### U A #### [facility] ([id number]) [address] [place] [address] VIR Ketones Ql (U) Trace Abnormal Negative [facility] Comment on above: Performed By: #### U A #### [facility] ([id number]) [facility] [place] [address] VIR Leukocyte esterase Test stri p Ql (U) Negative Normal Negative [facility] Comment on above: Performed By: #### U A #### [facility] ([id number]) [address] [place] [address] VIR MUCOUS Present Abnormal None [facility] Comment on above: Performed By: #### U A #### [facility] ([id number]) [facility] [place] [address] VIR Nitrite Ql (U) Negative Normal Negative [facility] Comment on above: Performed By: #### U A #### [facility] ([id number]) [facility] [place] [address] VIR PH,URINE 6.0 Normal 5.0-8.5 [facility] Comment on above: Performed By: #### U A #### [facility] ([id number]) [facility] [place] [address] VIR Protein Ql (U) Trace Abnormal Negative [facility] Comment on above: Performed By: #### U A #### [facility] ([id number]) [address] [place] [address] VIR R.B.CELLS 0 Normal 0-5 [facility] Comment on above: Performed By: #### U A #### [facility] ([id number]) [address] [place] [address] VIR Specific gravity (U) [Rel density] 1.025 Normal 1.003-1.03 5 [facility] Comment on above: Performed By: #### U A #### [facility] ([id number]) [facility] [place] [address] VIR SQUAMOUS EPITHELIUM 3 Normal 0-5 [facility] Comment on above: Performed By: #### U A #### [facility] ([id number]) [facility] [place] [address] VIR TURBIDITY Clear Normal Clear [facility] Comment on above: Performed By: #### U A #### [facility] ([id number]) [address] [place] [address], [place] [address] VIR UROBILINOGEN 4.0 eu/dL Abnormal 0.2 eu/dL, 1.0 eu/dL [facility] Comment on above: Performed By: #### U A #### [facility] ([id number]) [address] [place] [address], [place] [address] VIR W.B.CELLS 2 Normal 0-5 [facility] Comment on above: Performed By: #### U A #### [facility] ([id number]) [address] [place] [address], [place] [address] VIR Amorphous sediment LM Ql (Urine sed) Present Abnormal None [facility] Comment on above: Performed By: #### U A #### [facility] ([id number]) [address] [place] [address], [place] [address] VIR Bilirubin Ql (U) Negative Normal Negative [facility] Comment on above: Performed By: #### U A #### [facility] ([id number]) [address] [place] [address], [place] [address] VIR BLOOD/HGB Negative Normal Negative [facility] Comment on above: Performed By: #### U A #### [facility] ([id number]) [address] [place] [address], [place] [address] VIR Color (U) Yellow Normal Yellow, Colorless [facility] Comment on above: Performed By: #### U A #### [facility] ([id number]) [facility] [place] [address] VIR Glucose Ql (U) Negative Normal Negative, 250 mg/dL, >1000 mg/dL [facility] Comment on above: Performed By: #### U A #### [facility] ([id number]) [address] [place] [address] VIR Ketones Ql (U) >=80 mg/dL Abnormal Negative [facility] Comment on above: Performed By: #### U A #### [facility] ([id number]) [address] [place] [address] VIR Leukocyte esterase Test stri p Ql (U) Large Abnormal Negative [facility] Comment on above: Performed By: #### U A #### [facility] ([id number]) [address] [place] [address] VIR Nitrite Ql (U) Negative Normal Negative [facility] Comment on above: Performed By: #### U A #### [facility] ([id number]) [address] [place] [address] VIR PH,URINE 6.5 Normal 5.0-8.5 [facility] Comment on above: Performed By: #### U A #### [facility] ([id number]) [address] [place] [address] VIR Protein Ql (U) Trace Abnormal Negative [facility] Comment on above: Performed By: #### U A #### [facility] ([id number]) [address] [place] [address] VIR R.B.CELLS 5 Normal 0-5 [facility] Comment on above: Performed By: #### U A #### [facility] ([id number]) [address] [place] [address] VIR Specific gravity (U) [Rel density] 1.020 Normal 1.003-1.03 5 [facility] Comment on above: Performed By: #### U A #### [facility] ([id number]) [address] [place] [address] VIR SQUAMOUS EPITHELIUM 20 High 0-5 [facility] Comment on above: Performed By: #### U A #### [facility] ([id number]) [address] [place] [address] VIR TURBIDITY Hazy Abnormal Clear [facility] Comment on above: Performed By: #### U A #### [facility] ([id number]) [address] [place] [address] VIR UROBILINOGEN 2.0 eu/dL Abnormal 0.2 eu/dL, 1.0 eu/dL [facility] Comment on above: Performed By: #### U A #### [facility] ([id number]) [facility] [place] [address] VIR W.B.CELLS 50 High 0-5 [facility] Comment on above: Performed By: #### U A #### [facility] ([id number]) [facility] [place] [address] VIR URINE CULTUREon 09-23-2024 Bacteria identified Cx Nom (U) CULTURE RESULTS 10-50,000 ORGANISMS/mL NORMAL UROGENITAL ALEX Normal [facility] Comment on above: Order Comment: Urine received without preservative - delays in transport may affect results. Interpret with caution and clinical correlation is recommended. Performed By: #### U C #### [facility] ([facility]) [address] [place] [address] VIR VAGINITIS PANEL PCRon 2024 VAGINITIS PANEL PCR BACT. VAGINOSIS DNA Detected Qualitative results are reported based on detection and quantitation of targeted organism markers which include: Lactobacillus spp. (L. crispatus and L. jensenii), Gardnerella vaginalis, Atopobium vaginae, Bacterial Vaginosis Associated Bacteria-2 (BVAB-2) and Megasphaera-1. MIGUEL SPECIES DNA Not Detected Miguel species not detected include: C. albicans, C. tropicalis, C. parapsilosis or C. dubliniensis. MIGUEL KRUSEI DNA Not Detected No Miguel krusei detected. MIGUEL GLABRATA DNA Not Detected No Miguel glabrata detected. TRICHOMONAS VAG DNA Not Detected No Trichomonas vaginalis detected. BD MAX Vaginal Panel has not been evaluated for patients under 18 years old. Results for these patients should be reviewed and assessed in accordance with clinical presentation to determine patient diagnosis. Normal [facility] Comment on above: Performed By: #### C MP #### [facility] ([facility]) [address] [place] [address] VIR AMMONIAon 09-19-2024 Ammonia (P) [Moles/Vol] 32 umol/L Normal 18-72 [facility] Comment on above: Performed By: #### A MMON #### [facility] ([facility]) [address] [place] [address] VIR Ammonia (P) [Moles/Vol] 34 umol/L Normal 18-72 [facility] Comment on above: Performed By: #### A MMON #### [facility] ([facility]) [address] [place] [address] VIR CBC WITH AUTO DIFFERENTIALon 09-19-2024 BASOPHILS ABSOLUTE COUNT (10*3/UL) BY AUTOMATED COUNT 0.0 10*3/uL Normal 0.0-0.2 [facility] Comment on above: Performed By: #### C BCA #### [facility] ([facility]) [address] [place] [address] VIR BASOPHILS RELATIVE PERCENT B Y AUTOMATED COUNT 0.3 % Normal [facility] Comment on above: Performed By: #### C BCA #### [facility]) [address] [place] [address] VIR CELLAVISION DIFFERENTIAL TYPE AUTOMATED DIFFERENTIAL Normal [facility] Comment on above: Performed By: #### C BCA #### [facility]) [address] [place] [address] VIR Eosinophils (Bld) [#/Vol] 0.0 10*3/uL Normal 0.0-0.4 [facility] Comment on above: Performed By: #### C BCA #### [facility] ([facility]) [address] [place] [address] VIR EOSINOPHILS RELATIVE PERCENT BY AUTOMATED COUNT 0.3 % Normal [facility] Comment on above: Performed By: #### C BCA #### [facility]) [address] [place] [address] VIR Erythrocyte distribution width (RBC) [Ratio] 13.6 % Normal 11.5-15 [facility] Comment on above: Performed By: #### C BCA #### [facility]) [address] [place] [address] VIR Hematocrit (Bld) [Volume fraction] 30.4 % Low 35-47 [facility] Comment on above: Performed By: #### C BCA #### [facility]) [address] [facility] [address] [place] [address] VIR Hemoglobin (Bld) [Mass/Vol] 10.3 g/dL Low 11.7-15. 5 [facility] Comment on above: Performed By: #### C BCA #### [facility]) [address] [place] [address] VIR LYMPHOCYTES ABSOLUTE COUNT (10*3/UL) BY AUTOMATED COUNT 1.9 10*3/uL Normal 1.0-3.5 [facility] Comment on above: Performed By: #### C BCA #### [facility]) [address] [place] [address] VIR LYMPHOCYTES RELATIVE PERCENT BY AUTOMATED COUNT 20.2 % Normal [facility] Comment on above: Performed By: #### C BCA #### [facility]) [address] [place] [address] VIR MCH (RBC) [Entitic mass] 27.2 pg Normal 27-34 [facility] Comment on above: Performed By: #### C BCA #### [facility]) [address] [place] [address] VIR MCHC (RBC) [Mass/Vol] 34.0 g/dL Normal 32-36 [facility] Comment on above: Performed By: #### C BCA #### [facility]) [address] [place] [address] VIR MCV (RBC) [Entitic vol] 80 fL Normal 80-100 [facility] Comment on above: Performed By: #### C BCA #### [facility]) [address] [place] [address] VIR MONOCYTES ABSOLUTE COUNT (10*3/UL) BY AUTOMATED COUNT 0.4 10*3/uL Normal 0.0-0.9 [facility] Comment on above: Performed By: #### C BCA #### [facility]) [address] [place] [address] VIR MONOCYTES RELATIVE PERCENT B Y AUTOMATED COUNT 4.3 % Normal [facility] Comment on above: Performed By: #### C BCA #### [facility]) [address] [place] [address] VIR NEUTROPHILS ABSOLUTE COUNT B Y AUTOMATED COUNT 6.9 10*3/uL High 1.5-6.6 [facility] Comment on above: Performed By: #### C BCA #### [facility]) [address] [place] [address] VIR NEUTROPHILS RELATIVE PERCENT BY AUTOMATED COUNT 74.9 % Normal [facility] Comment on above: Performed By: #### C BCA #### [facility]) [address] [place] [address] VIR Platelet mean volume (Bld) [Entitic vol] 8.4 fL Normal 7-12 [facility] Comment on above: Performed By: #### C BCA #### [facility]) [address] [place] [address] VIR Platelets (Bld) [#/Vol] 231 10*3/uL Normal 150-450 [facility] Comment on above: Performed By: #### C BCA #### [facility]) [address] [place] [address] VIR RBC COUNT 3.80 X10E12/L Normal 3.8-5.2 [facility] Comment on above: Performed By: #### C BCA #### [facility]) [address] [place] [address] VIR WBC (Bld) [#/Vol] 9.2 10*3/uL Normal 4-11 [facility] Comment on above: Performed By: #### C BCA #### [facility]) [address] [place] [address] VIR COMPREHENSIVE METABOLIC PANE Steven 09-19-2024 Albumin [Mass/Vol] 3.0 g/dL Low 3.2-5.3 [facility] Comment on above: Performed By: #### C MP #### [facility]) [address] [place] [address] VIR ALP [Catalytic activity/Vol] 121 U/L Normal 39-130 [facility] Comment on above: Performed By: #### C MP #### [facility]) [address] [place] [address] VIR ALT [Catalytic activity/Vol] 5 U/L Normal <=31 [facility] Comment on above: Performed By: #### C MP #### [facility]) [address] [place] [address] VIR Anion gap [Moles/Vol] 7 mmol/L Normal 5-15 [facility] Comment on above: Performed By: #### C MP #### [facility]) [address] [place] [address] VIR AST [Catalytic activity/Vol] 11 U/L Normal <=41 [facility] Comment on above: Performed By: #### C MP #### [facility]) [address] [place] [address] VIR Bilirubin [Mass/Vol] 0.4 mg/dL Normal 0.3-1.2 [facility] Comment on above: Performed By: #### C MP #### [facility]) [address] [place] [address] VIR Calcium [Mass/Vol] 8.1 mg/dL Low 8.5-10.5 [facility] Comment on above: Performed By: #### C MP #### [facility] [facility] ([facility] [address] [place] [address] VIR Chloride [Moles/Vol] 106 mmol/L Normal 98-109 [facility] Comment on above: Performed By: #### C MP #### [facility] ([facility] [address] [place] [address] VIR CO2 [Moles/Vol] 25 mmol/L Normal 22-32 [facility] Comment on above: Performed By: #### C MP #### [facility] ([facility]) [address] [place] [address] VIR Creatinine [Mass/Vol] 0.45 mg/dL Normal 0.40-1.00 [facility] Comment on above: Result Comment: METH OD TRACEABLE TO IDMS STANDARD Performed By: #### C MP #### [facility] ([facility] [address] [place] [address] VIR EGFR (CKD-EPI) NON-RACE DEPENDENT >^90 Normal >=60 [facility] Comment on above: Result Comment: Repo rted eGFR is based on the CKD-EPI 2020 equation that does not use a race coefficient. Performed By: #### C MP #### [facility] ([facility]) [address] [place] [address] VIR Glucose [Mass/Vol] 96 mg/dL Normal 65-99 [facility] Comment on above: Performed By: #### C MP #### [facility] ([facility]) [address] [place] [address] VIR Potassium [Moles/Vol] 3.5 mmol/L Normal 3.5-5.0 [facility] Comment on above: Performed By: #### C MP #### [facility] ([facility]) [address] [place] [address] VIR Protein [Mass/Vol] 5.5 g/dL Low 6.0-8.0 [facility] Comment on above: Performed By: #### C MP #### [facility] ([facility]) [address] [place] [address] VIR Sodium [Moles/Vol] 138 mmol/L Normal 134-146 [facility] Comment on above: Performed By: #### C MP #### [facility] ([facility]) [address] [place] [address] VIR Urea nitrogen [Mass/Vol] 5 mg/dL Normal 5-23 [facility] Comment on above: Performed By: #### C MP #### [facility] ([facility]) [address] [place] [address] VIR SYPHILIS TOTAL(UNKNOWN SYPHI LIS STATUS)on 09-19-2024 SYPHILIS TOTAL <^0.2 Normal <=0.8 [facility] Comment on above: Order Comment: NON R EACTIVE No serologic evidence of infection to Treponema pallidum. Repeat testing may be considered in patients with suspected acute or primary syphilis in 2 to 4 weeks. Performed By: #### S YPHT #### [facility] ([facility]) [address] [place] [address] VIR VALPROIC ACID DEPAKANEon VALPROIC ACID 31 ug/mL Low 50-100 [facility] Comment on above: Performed By: #### V ALP #### [facility] ([facility]) [address] [place] [address] VIR VALPROIC ACID 28 ug/mL Low 50-100 [facility] Comment on above: Performed By: #### V ALP #### [facility] ([facility]) [address] [place] [address] VIR ACETAMINOPHEN LEVELon 2024 Acetaminophen [Mass/Vol] 6.6 ug/mL Low 10.0-30.0 [facility] Comment on above: Order Comment: Refer ence ranges are for therapeutic limits. Performed By: #### A CETA ####[facility] ([address] [address] VIR AMMONIAon 09-18-2024 Ammonia (P) [Moles/Vol] 15 umol/L Normal 11-35 [facility] Comment on above: Performed By: #### A MMON ####[facility] ([address] [address] VIR CBC WITH AUTO DIFFERENTIALon 09-18-2024 BASOPHILS ABSOLUTE COUNT (10*3/UL) BY AUTOMATED COUNT 0.0 10*3/uL Normal 0.0-0.2 [facility] Comment on above: Performed By: #### C BCA ####[facility] ([address] [address] VIR BASOPHILS RELATIVE PERCENT B Y AUTOMATED COUNT 0.1 % Normal [facility] Comment on above: Performed By: #### C BCA ####[facility] ([address] [address] VIR CELLAVISION DIFFERENTIAL TYPE AUTOMATED DIFFERENTIAL Normal [facility] Comment on above: Performed By: #### C BCA ####[facility] ([address] [address] VIR Eosinophils (Bld) [#/Vol] 0.0 10*3/uL Normal 0.0-0.4 [facility] Comment on above: Performed By: #### C BCA ####[facility] ([address] [address] VIR EOSINOPHILS RELATIVE PERCENT BY AUTOMATED COUNT 0.3 % Normal [facility] Comment on above: Performed By: #### C BCA ####[facility] ([address] [address] VIR Erythrocyte distribution width (RBC) [Ratio] 14.1 % Normal 11.5-15 [facility] Comment on above: Performed By: #### C BCA ####[facility] ([address] [address] VIR Hematocrit (Bld) [Volume fraction] 30.8 % Low 35-47 [facility] Comment on above: Performed By: #### C BCA ####[facility] ([address] [address] VIR Hemoglobin (Bld) [Mass/Vol] 10.6 g/dL Low 11.7-15. 5 [facility] Comment on above: Performed By: #### C BCA ####[facility] ([address] [address] VIR LYMPHOCYTES ABSOLUTE COUNT (10*3/UL) BY AUTOMATED COUNT 1.5 10*3/uL Normal 1.0-3.5 [facility] Comment on above: Performed By: #### C BCA ####[facility] ([address] [address] VIR LYMPHOCYTES RELATIVE PERCENT BY AUTOMATED COUNT 15.0 % Normal [facility] Comment on above: Performed By: #### C BCA ####[facility] ([address] [address] VIR MCH (RBC) [Entitic mass] 27.8 pg Normal 27-34 [facility] Comment on above: Performed By: #### C BCA ####[facility] [place] [address] VIR MCHC (RBC) [Mass/Vol] 34.5 g/dL Normal 32-36 [facility] Comment on above: Performed By: #### C BCA ####[facility] ([address] [place] [address] VIR MCV (RBC) [Entitic vol] 81 fL Normal 80-100 [facility] Comment on above: Performed By: #### C BCA ####[facility] ([address] [place] [address] VIR MONOCYTES ABSOLUTE COUNT (10*3/UL) BY AUTOMATED COUNT 0.4 10*3/uL Normal 0.0-0.9 [facility] Comment on above: Performed By: #### C BCA ####[facility] ([address] [place] [address] VIR MONOCYTES RELATIVE PERCENT B Y AUTOMATED COUNT 4.0 % Normal [facility] Comment on above: Performed By: #### C BCA ####[facility] ([address] [place] [address] VIR NEUTROPHILS ABSOLUTE COUNT B Y AUTOMATED COUNT 7.8 10*3/uL High 1.5-6.6 [facility] Comment on above: Performed By: #### C BCA ####[facility] ([address] [place] [address] VIR NEUTROPHILS RELATIVE PERCENT BY AUTOMATED COUNT 80.6 % Normal [facility] Comment on above: Performed By: #### C BCA ####[facility] ([address] [place] [address] VIR Platelet mean volume (Bld) [Entitic vol] 8.3 fL Normal 7-12 [facility] Comment on above: Performed By: #### C BCA ####[facility] ([address] [place] [address] VIR Platelets (Bld) [#/Vol] 221 10*3/uL Normal 150-450 [facility] Comment on above: Performed By: #### C BCA ####[facility] ([address] [place] [address] VIR RBC COUNT 3.82 X10E12/L Normal 3.8-5.2 [facility] Comment on above: Performed By: #### C BCA ####[facility] ([address] [place] [address] VIR WBC (Bld) [#/Vol] 9.7 10*3/uL Normal 4-11 [facility] Comment on above: Performed By: #### C BCA ####[facility] ([address] [place] [address] VIR COMPREHENSIVE METABOLIC PANE Steven 09-18-2024 Albumin [Mass/Vol] 2.6 g/dL Low 3.2-5.3 [facility] Comment on above: Performed By: #### C MP ####[facility] ([address] [place] [address] VIR ALP [Catalytic activity/Vol] 137 U/L High 39-130 [facility] Comment on above: Performed By: #### C MP ####[facility] ([address] [place] [address] VIR ALT [Catalytic activity/Vol] 9 U/L Normal <=31 [facility] Comment on above: Performed By: #### C MP ####[facility] ([address] [place] [address] VIR Anion gap [Moles/Vol] 4 mmol/L Low 5-15 [facility] Comment on above: Performed By: #### C MP ####[facility] ([address] [place] [address] VIR AST [Catalytic activity/Vol] 14 U/L Normal <=41 [facility] Comment on above: Performed By: #### C MP ####[facility] ([address] [place] [address] VIR Bilirubin [Mass/Vol] 0.6 mg/dL Normal 0.3-1.2 [facility] Comment on above: Performed By: #### C MP ####[facility] ([address] [place] [address] VIR Calcium [Mass/Vol] 7.9 mg/dL Low 8.5-10.5 [facility] Comment on above: Performed By: #### C MP ####[facility] ([address] [place] [address] VIR Chloride [Moles/Vol] 110 mmol/L High 98-109 [facility] Comment on above: Performed By: #### C MP ####[facility] ([address] [place] [address] VIR CO2 [Moles/Vol] 20 mmol/L Low 22-32 [facility] Comment on above: Performed By: #### C MP ####[facility] ([address] [place] [address] VIR Creatinine [Mass/Vol] 0.48 mg/dL Normal 0.40-1.00 [facility] Comment on above: Result Comment: METH OD TRACEABLE TO IDMS STANDARD Performed By: #### C MP ####[facility] ([address] [place] [address] VIR EGFR (CKD-EPI) NON-RACE DEPENDENT >^90 Normal >=60 [facility] Comment on above: Result Comment: eGFR not reported due to non-numeric value for Creatinine. Reported eGFR is based on the CKD-EPI 2021 equation that does not use a race coefficient. Performed By: #### C MP ####[facility] ([facility])[address] [place] [address] [place] [address] VIR Glucose [Mass/Vol] 87 mg/dL Normal 65-99 [facility] Comment on above: Performed By: #### C MP ####[facility])[address] [place] [address] [place] [address] VIR Potassium [Moles/Vol] 3.5 mmol/L Normal 3.5-5.0 [facility] Comment on above: Performed By: #### C MP ####[facility] ([address] [place] [address] VIR Protein [Mass/Vol] 6.3 g/dL Normal 6.0-8.0 [facility] Comment on above: Performed By: #### C MP ####[facility] ([address] [place] [address] VIR Sodium [Moles/Vol] 134 mmol/L Normal 134-146 [facility] Comment on above: Performed By: #### C MP ####[facility] ([address] [place] [address] VIR Urea nitrogen [Mass/Vol] 6 mg/dL Normal 5-23 [facility] Comment on above: Performed By: #### C MP ####[facility] ([address] [place] [address] VIR DRUG SCREEN, URINEon 025 AMPHETAMINE/METHAMP Negative Normal Negative [facility] Comment on above: Result Comment: AMPH /METH screening cut off = 1000 ng/mL Performed By: #### U A #### [facility] ([id number]) [address] [place] [address], [place] [address] BARBITURATES Negative Normal Negative [facility] Comment on above: Result Comment: Jami iturates screening cut off value = 200 ng/mL Performed By: #### U A #### [facility] ([id number]) [address] [place] [address] BENZODIAZEPINES Negative Normal Negative [facility] Comment on above: Result Comment: Hunter odiazepines screening cut off value = 200 ng/mL Performed By: #### U A #### [facility] ([id number]) [address] [place] [address] CANNABINOIDS Negative Normal Negative [facility] Comment on above: Result Comment: Latha abinoids/THC screening cut off value = 50 ng/mL Performed By: #### U A #### [facility] ([id number]) [address] [place] [address] COCAINE METABOLITE Negative Normal Negative [facility] Comment on above: Result Comment: Coca ine screening cut off value = 300 ng/mL Performed By: #### U A #### [facility] ([id number]) [address] [place] [address] ECSTASY Negative Normal Negative [facility] Comment on above: Result Comment: Ecst asy screening cut off value = 500 ng/mL Performed By: #### U A #### [facility] ([id number]) [address] [place] [address] METHADONE Negative Normal Negative [facility] Comment on above: Result Comment: Meth adone screening cut off value = 300 ng/mL. Performed By: #### U A #### [facility] ([id number]) [address] [place] [address] OPIATES Negative Normal Negative [facility] Comment on above: Result Comment: Opia olivia screening cut off value = 300 ng/mL This test is used for the detection of codeine, hydrocodone (>1000 ng/mL), morphine and hydromorphone (>900 ng/mL) in urine. Performed By: #### U A #### [facility] ([id number]) [address] [place] [address] OXYCODONE Negative Normal Negative [facility] Comment on above: Result Comment: Oxyc odone screening cut off value = 300 ng/mL This test is used for the detection of oxycodone and oxymorphone in urine. Performed By: #### U A #### [facility] ([id number]) [address] [place] [address] PHENCYCLIDINE Negative Normal Negative [facility] Comment on above: Result Comment: Phen cyclidine screening cut off value = 25 ng/mL Performed By: #### U A #### [facility] ([id number]) [address] [place] [address] ETHANOLon 09-18-2024 Ethanol [Mass/Vol] mg/dL Normal <=0.080 [facility] Comment on above: Result Comment: This report is intended for use in clinical monitoring or management of patients. Performed By: #### A LCO ####[facility] ([facility])[address] [place], [place] [address], [place] [address] VIR IRON AND TIBCon 09-18-2024 Iron [Mass/Vol] 62 ug/dL Normal 50-170 [facility] Comment on above: Performed By: #### U A #### [facility] ([id number]) [address] [place] [address] IRON BINDING 560 ug/dL High 250-425 [facility] Comment on above: Performed By: #### U A #### [facility] ([id number]) [address] [place] [address] IRON SATURATION 11 % SATURATION Low 15-50 [facility] Comment on above: Performed By: #### U A #### [facility] ([id number]) [address] [place] [address] Transferrin [Mass/Vol] 400 mg/dL High 168-336 [facility] Comment on above: Performed By: #### U A #### [facility] ([id number]) [address] [place] [address] POCT NURSING URINE MACROSCOP IC UAon 09-18-2024 BILIRUBIN ELOISA Negative Normal Negative [facility] Comment on above: Performed By: #### U A #### [facility] ([id number]) [address] [place] [address] BLOOD/HGB ELOISA Negative Normal Negative [facility] Comment on above: Performed By: #### U A #### [facility] ([id number]) [address] [place] [address] GLUCOSE ELOISA Negative Normal Negative [facility] Comment on above: Performed By: #### U A #### [facility] ([id number]) [address] [place] [address] KETONES ELOISA 80 mg/dL Abnormal Negative [facility] Comment on above: Performed By: #### U A #### [facility] ([id number]) [address] [place] [address] LEUKOCYTE ESTERASE ELOISA Moderate Abnormal Negative Pr [facility] [place] [place] Comment on above: Performed By: #### U A #### [facility] ([id number]) [address] [place] [address] NITRITE ELOISA Negative Normal Negative [facility] Comment on above: Performed By: #### U A #### [facility] ([id number]) [address] [place] [address] PH ELOISA 7.0 Normal 5.0, 6.0, 6.5, 7.0, 7.5, 8.0, 8.5, 5.5 [facility] Comment on above: Performed By: #### U A #### [facility] ([id number]) [address] [place], [place] [address], [place] [address] PROTEIN ELOISA Negative Normal Negative [facility] Comment on above: Performed By: #### U A #### [facility] ([id number]) [address] [place] [address] [place] [address] SPECIFIC GRAVITY ELOISA 1.015 Normal 1.010, 1.015, 1.020, 1.025 [facility] Comment on above: Performed By: #### U A #### [facility] ([id number]) [address] [place] [address] [place] [address] UROBILINOGEN LEOISA 0.2 E.U./dL Normal [facility] Comment on above: Performed By: #### U A #### [facility] ([id number]) [address] [place] [address] BILIRUBIN ELOISA Negative Normal Negative [facility] Comment on above: Performed By: #### U A #### [facility] ([id number]) [address] [place] [address] [place] [address] BLOOD/HGB ELOISA Negative Normal Negative [facility] Comment on above: Performed By: #### U A #### [facility] ([id number]) [address] [place] [address] [place] [address] GLUCOSE ELOISA Negative Normal Negative [facility] Comment on above: Performed By: #### U A #### [facility] ([id number]) [address] [place] [address] [place] [address] KETONES ELOISA 80 mg/dL Abnormal Negative [facility] Comment on above: Performed By: #### U A #### [facility] ([id number]) [address] [place] [address] [place] [address] LEUKOCYTE ESTERASE ELOISA Small Abnormal Negative [facility] Comment on above: Performed By: #### U A #### [facility] ([id number]) [address] [place] [address] NITRITE ELOISA Negative Normal Negative [facility] Comment on above: Performed By: #### U A #### [facility] ([id number]) [address] [place] [address] PH ELOISA 7.0 Normal 5.0, 6.0, 6.5, 7.0, 7.5, 8.0, 8.5, 5.5 [facility] Comment on above: Performed By: #### U A #### [facility] ([id number]) [address] [place] [address] PROTEIN ELOISA Negative Normal Negative [facility] Comment on above: Performed By: #### U A #### [facility] ([id number]) [address] [place] [address] SPECIFIC GRAVITY ELOISA 1.015 Normal 1.010, 1.015, 1.020, 1.025 [facility] Comment on above: Performed By: #### U A #### [facility] ([id number]) [address] [place] [address] UROBILINOGEN ELOISA 0.2 E.U./dL Normal [facility] Comment on above: Performed By: #### U A #### [facility] ([id number]) [address] [place] [address] SALICYLATE LEVELon 5 SALICYLATE <^4.0 Normal 2.0-25.0 [facility] Comment on above: Order Comment: Refer ence ranges are for therapeutic limits. Performed By: #### S ALI ####[facility])[address] [place], [place] [address], [place] [address] VIR VALPROIC ACID DEPAKANEon VALPROIC ACID 11 ug/mL Low 50-100 [facility] Comment on above: Performed By: #### U A #### [facility] ([id number]) [address] [facility], [place] [address] No Panel InformationOrdered By: Radiologist Radiology on 09-02-2024 [facility] Work Phone: No Panel Informationon 09-02 Radiology Study observation (narrative) [facility]H UA (CLEAN/CATCH) PSYCHIATRIC SECRETARY/SANDRA RO IF IND.on 09-02-2024 BILIRUBIN URINE Negative NEGATIVE [facility] BLOOD URINE Negative NEGATIVE [facility] Clarity (U) SL CLOUDY CLEAR [facility] Color (U) LT. YELLOW YELLOW [facility] GLUCOSE URINE UA Negative NEGATIVE mg/dL [facility] Interpretation and review of laboratory results Abnormal [facility] Ketones Ql (U) Negative NEGATIVE mg/dL [facility] Leukocyte esterase Test stri p Ql (U) MODERATE Abnormal NEGATIVE [facility] NITRITE URINE Negative NEGATIVE [facility] pH (U) 7.0 [pH] 5.0 - 9.0 [facility] PROTEIN URINE Negative NEG/TRACE mg/dL [facility] SPECIFIC GRAVITY URINE 1.015 1.005 - 1.025 [facility] URINE MICROSCOPIC INDICATED YES [facility] UROBILINOGEN URINE 0.2 EU/dL 0.2 - 1.0 EU/dL [facility] US OB CERVICAL LENGTHon 08-[address] [address] Ultrasound Report Signed Patient: LAURA POND MR#: [id number] : 2000 Acct:[id number] Age/Sex: 23 / F ADM Date: Loc: [facility] [address]: Osmany Bella D.O. Ordering Physician: Osmany Bella D.O. Date of Service: 09/02/24 Procedure(s): US OB cervical length Accession Number(s): [id number] cc: Osmany Bella D.O.; PhysicianRuddy M.D. [address] [address] Patient Name: LAURA POND MRN: [id number] date: 2000 Sex: F Assigned Patient Location: [facility] Current Patient Location: [facility] Accession/Order Number: [id number] Exam Date: 09/02/2024 11:49 Report Date: 09/02/2024 11:52 At the request of: OSMANY BELLA DO Procedure: US OB cervical length [...] Jr., D.O. 09/02/2024 11:52 AM Dictation Location: [place] [address] Electronically authenticated by: [id number] Y Date: 09/02/2024 11:52 Dictated By: uRfus Garcia M.D. Signed By: 09/02/24 1155 DD/ 1152 TD/TT: Salvage Grinder: [facility] Radiology, Radiologist, MD - 09/02/2024 [place] [address] Ultrasound Report Signed Patient: LAURA POND MR#: [id number] : 2000 Acct:[id number] Age/Sex: 23 / F ADM Date: Loc: [facility] 258- Attending Dr: Osmany Bella D.O. Ordering Physician: Osmany Bella D.O. Date of Service: 09/02/24 Procedure(s): US OB cervical length Accession Number(s): [id number] cc: Osmany Bella D.O.; Physician,Ruddy mas M.D. [facility] [place] [id number] Patient Name: LAURA POND MRN: [facility]:[id number] date: 2000 Sex: F Assigned Patient Location: [facility] Current Patient Location: [facility] Accession/Order Number: [id number] Exam Date: 09/02/2024 11:49 Report Date: 09/02/2024 11:52 At the request of: OSMANY BELLA DO Procedure: US OB cervical length [...] Jr., D.O. 09/02/2024 11:52 AM Dictation Location: [place] [address] Electronically authenticated by: [id number] Y Date: 09/02/2024 11:52 Dictated By: Rufus Garcia M.D. Signed By: 09/02/24 1155 DD/ 1152 TD/TT: [employer]: [place] [employer] US OB PLACENTAon 09-02-2024 [place] [address] Ultrasound Report Signed Patient: LAURA POND MR#: [id number] : 2000 Acct:[id number] Age/Sex: 23 / F ADM Date: Loc: [facility] 258-[address]: Osmany Bella D.O. Ordering Physician: Osmany Bella D.O. Date of Service: 09/02/24 Procedure(s): US OB placenta Accession Number(s): [id number] cc: Osmany Bella D.O.; Physician,Ruddy mas M.D. [address] [address] Patient Name: LAURA POND MRN: [id number] date: 2000 Sex: F Assigned [facility] [facility] Current Patient Location: [facility] Accession/Order Number: [id number] Exam Date: 09/02/2024 11:49 Report Date: 09/02/2024 11:52 At the request of: OSMANY BELLA DO Procedure: US OB cervical length [...] Jr., D.O. 09/02/2024 11:52 AM Dictation Location: [place] [address] Electronically authenticated by: [id number] Y Date: 09/02/2024 11:52 Dictated By: Rufus Garcia M.D. Signed By: 09/02/24 1155 DD/ 1152 TD/TT: Salvage Grinder: [facility] Radiology, Radiologist, MD - 09/02/2024 [place] [address] Ultrasound Report Signed Patient: LAURA POND MR#: [id number] : 2000 Acct:[id number] Age/Sex: 23 / F ADM Date: Loc: [facility] 258-[address]: Osmany Bella D.O. Ordering Physician: Osmany Bella D.O. Date of Service: 09/02/24 Procedure(s): US OB placenta Accession Number(s): [id number] cc: Osmany Bella D.O.; Physician,Ruddy mas M.D. [facility] [place] [id number] Patient Name: LAURA POND MRN: [facility]:[id number] date: 2000 Sex: F Assigned Patient Location: [facility] Current Patient Location: [facility] Accession/Order Number: [id number] Exam Date: 09/02/2024 11:49 Report Date: 09/02/2024 11:52 At the request of: OSMANY BELLA DO Procedure: US OB cervical length [...] Jr., D.O. 09/02/2024 11:52 AM Dictation Location: [facility] Electronically authenticated by: [id number] Y Date: 09/02/2024 11:52 Dictated By: Rufus Garcia M.D. Signed By: 09/02/24 1155 DD/ 1152 TD/TT: Salvage Grinder: [facility] Urinalysis macro (dipstick) panel (U)Ordered By: Jaylin Wolfe on 09-02-2024 Bilirubin, UA Negative Negative - 4(70) +++ mg/dL [facility] Blood, UA Positive Negative - 50 Ayden/mcL [facility] Comment on above: Trace-intact Clarity, UA Clear [facility] Color, UA Yellow [facility] Glucose, UA Negative Negative - 2000(110) ++++ mg/dL [facility] Interpretation and review of laboratory results Abnormal [facility] Ketones, UA Negative Negative - 160(16) ++++ mg/dL [facility] Leukocytes, UA Positive Negative - 500+++ Caleb/mcL [facility] Comment on above: Large Nitrite, UA Negative Negative - Positive [facility] pH, UA 6 5 - 9 [facility] Protein, UA Positive Negative - 2000(20) ++++ mg/dL [facility] Comment on above: 30mg/dL Spec Grav, UA 1.025 1 - 1.03 [facility] Urobilinogen, UA 0.2 0.2 - 12 mg/dL [facility] CBC WITH AUTO DIFFERENTIALon 09-01-2024 BASOPHILS ABSOLUTE COUNT (10*3/UL) BY AUTOMATED COUNT 0.0 10*3/uL Normal [facility] Comment on above: Performed By: #### C BCA ####[facility] ([facility], [place] [address] VIR BASOPHILS RELATIVE PERCENT B Y AUTOMATED COUNT 0.2 % Normal [facility] Comment on above: Performed By: #### C BCA ####[facility])[address], [place] [address] VIR CELLAVISION DIFFERENTIAL TYPE AUTOMATED DIFFERENTIAL Normal [facility] Comment on above: Performed By: #### C BCA ####[facility])[address], [place] [address] VIR Eosinophils (Bld) [#/Vol] 0.0 10*3/uL Normal [facility] Comment on above: Performed By: #### C BCA ####[facility])[address], [place] [address] VIR EOSINOPHILS RELATIVE PERCENT BY AUTOMATED COUNT 0.4 % Normal [facility] Comment on above: Performed By: #### C BCA ####[facility])[address], [place] [address] VIR Erythrocyte distribution width (RBC) [Ratio] 13.7 % Normal 11.5-15 [facility] Comment on above: Performed By: #### C BCA ####[facility])[address], [place] [address] VIR Hematocrit (Bld) [Volume fraction] 31.9 % Low 35-47 [facility] Comment on above: Performed By: #### C BCA ####[facility])[address], [place] [address] VIR Hemoglobin (Bld) [Mass/Vol] 10.9 g/dL Low 11.7-15. 5 [facility] Comment on above: Performed By: #### C BCA ####[facility])[address], [place] [address] VIR LYMPHOCYTES ABSOLUTE COUNT (10*3/UL) BY AUTOMATED COUNT 1.5 10*3/uL Normal [facility] Comment on above: Performed By: #### C BCA ####[facility])[address], [place] [address] VIR LYMPHOCYTES RELATIVE PERCENT BY AUTOMATED COUNT 17.0 % Normal [facility] Comment on above: Performed By: #### C BCA ####[facility])[address], [place] [address] VIR MCH (RBC) [Entitic mass] 28.2 pg Normal 27-34 [facility] Comment on above: Performed By: #### C BCA ####[facility])[address], [place] [address] VIR MCHC (RBC) [Mass/Vol] 34.1 g/dL Normal 32-36 [facility] Comment on above: Performed By: #### C BCA ####[facility])[address], [place] [address] VIR MCV (RBC) [Entitic vol] 83 fL Normal 80-100 [facility] Comment on above: Performed By: #### C BCA ####[facility])[address], [place] [address] VIR MONOCYTES ABSOLUTE COUNT (10*3/UL) BY AUTOMATED COUNT 0.3 10*3/uL Normal [facility] Comment on above: Performed By: #### C BCA ####[facility])[address], [place] [address] VIR MONOCYTES RELATIVE PERCENT B Y AUTOMATED COUNT 3.7 % Normal [facility] Comment on above: Performed By: #### C BCA ####[facility])[address], [place] [address] VIR NEUTROPHILS ABSOLUTE COUNT B Y AUTOMATED COUNT 7.1 10*3/uL Normal [facility] Comment on above: Performed By: #### C BCA ####[facility])[address], [place] [address] VIR NEUTROPHILS RELATIVE PERCENT BY AUTOMATED COUNT 78.7 % Normal [facility] Comment on above: Performed By: #### C BCA ####[facility])[address], [place] [address] VIR Platelet mean volume (Bld) [Entitic vol] 8.9 fL Normal 7-12 [facility] Comment on above: Performed By: #### C BCA ####[facility])[address], [place] [address] VIR Platelets (Bld) [#/Vol] 226 10*3/uL Normal 150-450 [facility] Comment on above: Performed By: #### C BCA ####[facility] ([facility])[address], [place] [address] VIR RBC COUNT 3.86 X10E12/L Normal 3.8-5.2 [facility] Comment on above: Performed By: #### C BCA ####[facility])[address], [place] [address] VIR WBC (Bld) [#/Vol] 9.0 10*3/uL Normal 4-11 [facility] Comment on above: Performed By: #### C BCA ####[facility])[address], [place] [address] VIR GLUCOSE TOLERANCE, FASTINGon 09-01-2024 GLUCOSE TOLERANCE, FASTING GLUF GLUCOSE TOLERANCE, FASTING Cancelled Normal [facility] Comment on above: Order Comment: FASTI NG GLUCOSE NOT NEEDED FOR 1 HOUR 50 GRAM GLUCOLA IGP,APTIMA HPV,AGE GDLNon AGE GDLN ACOG TESTING Note . [facility] Comment on above: TESTS RESULT FLAG UN ITS REF RANGE LAB ---- Clinician Provided Cytology Information Source.............Cervix No. of containers..01 ThinPrep Vial Age Algo ACOG Olivia... 01 ---- FLAG LEGEND: L-Low Normal,H-High Normal,LL-Alert Low,HH-Alert High <-Panic Low,>-Panic High,A-Abnormal,AA-Critical Abnormal ---- Performed at: 01 =[address] [address] Rafaela Vega MD, HPV APTIMA Positive Abnormal Negative [facility] Comment on above: This nucleic acid am plification test detects fourteen high- risk HPV types (16,18,31,33,35,39,45,51,52,56,58,59,66,68) without differentiation. Performed at: =[address] [id number] License And Permit Specialist: Rafaela Vega MD, Phone: [phone] Performed at: - [address] [id number] License And Permit Specialist: Rafaela Vega MD, Phone: [phone] IGP, RFX APTIMA HPV ASCU Note Abnormal . [facility] Comment on above: TESTS RESULT FLAG [facility] REF RANGE LAB ---- DIAGNOSIS: [A] 02 EPITHELIAL CELL ABNORMALITY. ATYPICAL SQUAMOUS CELLS OF UNDETERMINED SIGNIFICANCE (ASC-US). Specimen adequacy: 02 Satisfactory for evaluation. Endocervical and/or squamous metaplastic cells (endocervical component) are present. Performed by: 02 Mauri Martínez, [employer] ([facility]) Electronically si... Frances Munoz MD, Pathologist . 02 Pathologist [...] 02 See below for HPV testing results. ---- FLAG LEGEND: L-Low Normal,H-High Normal,LL-Alert Low,HH-Alert High <-Panic Low,>-Panic High,A-Abnormal,AA-Critical Abnormal ---- Performed at: [address] [place] [address] Rafaela Vega MD, Interpretation and review of laboratory results Abnormal [facility] SPATULA-ALONE CERVIX CLINISYNC [facility] Urinalysis macro (dipstick) panel (U)on 08-12-2024 Bilirubin, UA Negative Negative - 4(70) +++ mg/dL [facility] Blood, UA Negative Negative - 50 Ayden/mcL [facility] Clarity, UA Clear [facility] Color, UA Yellow [facility] Glucose, UA Negative Negative - 1999(110) ++++ mg/dL [facility] Interpretation and review of laboratory results Normal [facility] Ketones, UA Negative Negative - 160(16) ++++ mg/dL [facility] Leukocytes, UA Negative Negative - 500+++ Caleb/mcL [facility] Nitrite, UA Negative Negative - Positive [facility] pH, UA 5.5 5 - 9 [facility] Protein, UA Negative Negative - 1999(20) ++++ mg/dL [facility] Spec Grav, UA 1.02 1 - 1.03 [facility] Urobilinogen, UA 1.0 0.2 - 12 mg/dL [facility] URINALYSISon 08-03-2024 Bilirubin Ql (U) Negative Normal NEG [facility] Comment on above: Performed By: #### U A ####[facility] ([id number])[address] [place] [address] BLOOD/HGB Negative Normal NEG [facility] Comment on above: Performed By: #### U A ####[facility] ([id number])[address] [place] [address] Color (U) YELLOW Normal YELLOW [facility] Comment on above: Performed By: #### U A ####[facility] ([id number])[address] [place] [address] Glucose Ql (U) Negative Normal NEG [facility] Comment on above: Performed By: #### U A ####[facility] ([id number])[address] [place] [address] Ketones Ql (U) Negative Normal NEG [facility] Comment on above: Performed By: #### U A ####[facility] ([id number])[address] [place] [address] Leukocyte esterase Test stri p Ql (U) SMALL Abnormal NEG [facility] Comment on above: Performed By: #### U A ####[facility] ([id number])[address] [place] [address] MUCOUS PRESENT Abnormal NONE [facility] Comment on above: Performed By: #### U A ####[facility] ([id number])[address] [place] [address] Nitrite Ql (U) Negative Normal NEG [facility] Comment on above: Performed By: #### U A ####[facility] ([id number])[address] [place] [address] pH (U) 6.0 [pH] Normal 5.0-8.5 [facility] Comment on above: Performed By: #### U A ####[facility] ([id number])[address] [place] [address] Protein Ql (U) Negative Normal NEG [facility] Comment on above: Performed By: #### U A ####[facility] ([id number])[address] [place] [address] R.B.CELLS 0 /hpf Normal 0-5 [facility] Comment on above: Performed By: #### U A ####[facility] ([id number])[address] [place] [address] Specific gravity (U) [Rel density] 1.025 Normal 1.003-1.03 5 [facility] Comment on above: Performed By: #### U A ####[facility] ([id number])[address] [place] [address] SQUAMOUS EPITHELIUM 13 /hpf High 0-5 [facility] Comment on above: Performed By: #### U A ####[facility] ([id number])[address] [place] [address] TURBIDITY CLEAR Normal CLEAR [facility] Comment on above: Performed By: #### U A ####[facility] ([id number])[address] [place] [address] Urinalysis dipstick W Reflex Microscopic panel (U) URINE RECEIVED WITHOUT PRESERVATIVE-DELAY S IN TRANSPORT MAY AFFECT RESULTS.INTERPRET WITH CAUTION AND CLINICAL CORRELATION IS RECOMMENDED. Normal [facility] Comment on above: Performed By: #### U A ####[facility] ([id number])[address] [place] [address] Urobilinogen Qn (U) 0.2 {Krishna'U}/dL Normal <1.1 [facility] Comment on above: Performed By: #### U A ####[facility] ([id number])[address] [place] [address] W.B.CELLS 12 /hpf High 0-5 [facility] Comment on above: Performed By: #### U A ####[facility] ([id number])[address] [place] [address] URINE CULTUREon 08-03-2024 Bacteria identified Cx Nom (U) SPECIMEN NOTES URINE RECEIVED WITHOUT PRESERVATIVE CULTURE RESULTS 10-50,000 ORGANISMS/mL NORMAL UROGENITAL ALEX URINE RECEIVED WITHOUT PRESERVATIVE-DELAY S IN TRANSPORT MAY AFFECT RESULTS.INTERPRET WITH CAUTION AND CLINICAL CORRELATION IS RECOMMENDED. Normal [facility] Comment on above: Performed By: #### 6 30-4 ####[facility] ([id number])[address] [place] [address] US OB 14+ WEEKS ANATOMY SCAN on [...] 2. Unremarkable ultrasound of the anatomy. Electronically Signed:Aliyaa raine signed by REUBEN CERDA II, MD, PHD at 28-Jul-2024 09:45:45 PM [facility] Normal Not Available Comment on above: Order Comment: US OB ANATOMY SINGLE W US OB CERVICAL LENGTH Estimated Date of Delivery: 11/24/24 Gestational Age as of 07/16/2024: 21w2d AFP panelon 07-27-2024 AFP SINGLE MARKER SCRN, MATERNAL, SERUM SEE COMMENTS 07/29/2024 03:00 PM Normal [facility] Comment on above: Result Comment: NOTE Test [...] repeat testing Initial testing Physician Phone Number [phone] GENERAL TEST INFORMATION See Note This screening [...] developed and its performance characteristics determined by [facility] in a manner consistent with CLIA requirements. This test has not been cleared or approved by the U.S. Food and Drug Administration. Test Performed by: [facility] [address] [place] [address] License And Permit Specialist: Gamaliel Au Ph.D.; CLIA# [id number] Performed By: #### V PPCR #### [facility] ([id number]) [address], [address] [place] [address] CBC AND AUTO DIFFon 07-28-19 ABSOLUTE BASOPHIL 0.0 X10E9/L Normal 0.0-0.2 [facility] Comment on above: Performed By: #### V PPCR #### [facility] ([id number]) [address] [place] [address] ABSOLUTE NEUTROPHIL 7.7 X10E9/L High 1.5-6.6 [facility] Comment on above: Performed By: #### V PPCR #### [facility] ([id number]) [address] [place] [address] Basophils/100 WBC (Bld) 0.2 % Normal [facility] Comment on above: Performed By: #### V PPCR #### [facility] ([id number]) [address] [place] [address] Eosinophils (Bld) [#/Vol] 0.0 10*3/uL Normal 0.0-0.4 [facility] Comment on above: Performed By: #### V PPCR #### [facility] ([id number]) [address] [place] [address] Eosinophils/100 WBC (Bld) 0.3 % Normal [facility] Comment on above: Performed By: #### V PPCR #### [facility] ([id number]) [address] [place] [address] Erythrocyte distribution width (RBC) [Ratio] 14.1 % Normal 11.5-15.0 [facility] Comment on above: Performed By: #### V PPCR #### [facility] ([id number]) [address] [place] [address] Hematocrit (Bld) [Volume fraction] 34.7 % Low 35-47 [facility] Comment on above: Performed By: #### V PPCR #### [facility] ([id number]) [address] [place] [address] Hemoglobin (Bld) [Mass/Vol] 12.1 g/dL Normal 11.7-15. 5 [facility] Comment on above: Performed By: #### V PPCR #### [facility] ([id number]) [address] [place] [address] Lymphocytes (Bld) [#/Vol] 1.8 10*3/uL Normal 1.0-3.5 [facility] Comment on above: Performed By: #### V PPCR #### [facility] ([id number]) [address] [place] [address] Lymphocytes/100 WBC (Bld) 18.5 % Normal [facility] Comment on above: Performed By: #### V PPCR #### [facility] ([id number]) [address] [place] [address] MCH (RBC) [Entitic mass] 29.4 pg Normal 27-34 [facility] Comment on above: Performed By: #### V PPCR #### [facility] ([id number]) [address] [place] [address] MCHC (RBC) [Mass/Vol] 34.7 g/dL Normal 32-36 [facility] Comment on above: Performed By: #### V PPCR #### [facility] ([id number]) [address] [place] [address] MCV (RBC) [Entitic vol] 85 fL Normal 80-100 [facility] Comment on above: Performed By: #### V PPCR #### [facility] ([id number]) [address] [place] [address] Monocytes (Bld) [#/Vol] 0.3 10*3/uL Normal 0-0.9 [facility] Comment on above: Performed By: #### V PPCR #### [facility] ([id number]) [address] [place] [address] Monocytes/100 WBC (Bld) 3.2 % Normal [facility] Comment on above: Performed By: #### V PPCR #### [facility] ([id number]) [address] [place] [address] Neutrophils/100 WBC (Bld) 77.8 % Normal [facility] Comment on above: Performed By: #### V PPCR #### [facility] ([id number]) [address] [place] [address] Platelet mean volume (Bld) [Entitic vol] 9.0 fL Normal 7-12 [facility] Comment on above: Performed By: #### V PPCR #### [facility] ([id number]) [address] [place] [address] Platelets (Bld) [#/Vol] 258 10*3/uL Normal 150-450 [facility] Comment on above: Performed By: #### V PPCR #### [facility] ([id number]) [address] [place] [address] RBC COUNT 4.10 X10E12/L Normal 3.80-5.20 [facility] Comment on above: Performed By: #### V PPCR #### [facility] ([id number]) [address] [place] [address] WBC (Bld) [#/Vol] 9.9 10*3/uL Normal 4.0-11.0 [facility] Comment on above: Performed By: #### V PPCR #### [facility] ([id number]) [address] [place] [address] DRUG SCREEN, URINEon 025 AMPHETAMINE/METHAMP Negative Normal NEG [facility] Comment on above: Result Comment: AMPH /METH screening cut off = 1000 ng/mL Performed By: #### V PPCR #### [facility] ([id number]) [address] [place] [address] BARBITURATES Negative Normal NEG [facility] Comment on above: Result Comment: Jami iturates screening cut off value = 200 ng/mL Performed By: #### V PPCR #### [facility] ([id number]) [address] [place] [address] BENZODIAZEPINES Negative Normal NEG [facility] Comment on above: Result Comment: Hunter odiazepines screening cut off value = 200 ng/mL Performed By: #### V PPCR #### [facility] ([id number]) [address] [place] [address] CANNABINOIDS Negative Normal NEG [facility] Comment on above: Result Comment: Latha abinoids/THC screening cut off value = 50 ng/mL Performed By: #### V PPCR #### [facility] ([id number]) [address] [place] [address] COCAINE METABOLITE Negative Normal NEG [facility] Comment on above: Result Comment: Coca ine screening cut off value = 300 ng/mL Performed By: #### V PPCR #### [facility] ([id number]) [address] [place] [address] ECSTASY Negative Normal NEG [facility] Comment on above: Result Comment: Ecst asy screening cut off value = 500 ng/mL This report is intended for use in clinical monitoring or management of patients. Performed By: #### V PPCR #### [facility] ([id number]) [address] [place] [address] METHADONE Negative Normal NEG [facility] Comment on above: Result Comment: Meth adone screening cut off value = 300 ng/mL. Performed By: #### V PPCR #### [facility] ([id number]) [address] [place] [address] OPIATES Negative Normal NEG [facility] Comment on above: Result Comment: Opia olivia screening cut off value = 300 ng/mL NOTE: This test is used for the detection of codeine, hydrocodone (>1000 ng/mL), morphine and hydromorphone (>900 ng/mL) in urine. Performed By: #### V PPCR #### [facility] ([id number]) [address], [address] [place] [address] OXYCODONE Negative Normal NEG [facility] Comment on above: Result Comment: Oxyc odone screening cut off value = 300 ng/mL NOTE: This test is used for the detection of oxycodone and oxymorphone in urine. Performed By: #### V PPCR #### [facility] [facility] ([id number]) [address], [address] [place] [address] PHENCYCLIDINE Negative Normal NEG [facility] Comment on above: Result Comment: Phen cyclidine screening cut off value = 25 ng/mL Performed By: #### V PPCR #### [facility] ([id number]) [address], [address] [place] [address] HBV surface Ag IA [facility] 07-27 HEPATITIS B SURF AG Non-Reactive Normal NRCT [facility] Comment on above: Result Comment: NEW TEST METHOD Performed By: #### V PPCR #### [facility] ([id number]) [address], [address] [place] [address] HCV Ab IA on 07-27-2024 ANTI HCV W/PCR REFLX Non-Reactive Normal NRCT Pr [facility] [place] [place] Comment on above: Result Comment: NEW TEST METHOD NOTE If recent infection suspected, recommend repeat testing (>2 months). Tazbcp-tt-kpgfww ratio is <1.00. Performed By: #### V PPCR #### [facility] ([id number]) [address] [facility] [facility] [address] [address] [place] [address] HGB A1C (GLYCO-HGB)on 2024 Glucose [Mass/Vol] 85 mg/dL Normal [facility] Comment on above: Performed By: #### V PPCR #### [facility] ([id number]) [address] [place] [address] HbA1c (Bld) [Mass fraction] 4.6 % Normal 4.4-5.6 [facility] Comment on above: Result Comment: NOTE ADA Guidelines Result HgbA1c Normal : less than 5.7 % Prediabetes : 5.7 % to 6.4 % Diabetes : > 6.4 % Use with caution in patients with abnormal hemoglobin variants as the half-life of red blood cells and in vivo glycation rates are affected. Performed By: #### V PPCR #### [facility] ([id number]) [address] [place] [address] Rubella virus IgG Qn (S)on 0 07-27-2024 RUBELLA IgG 15 IU/mL Normal [facility] Comment on above: Result Comment: Interpretation-------- <8 NEGATIVE-considered Not Immune 8-9 EQUIVOCAL-consider retesting with new specimen >9 POSITIVE-considered Immune Performed By: #### V PPCR #### [facility] ([id number]) [address] [place] [address] T. pallidum IgG+IgM IA Ql (S )on 07-27-2024 Syphilis Total <0.2 Normal 0.0-0.8 [facility] Comment on above: Result Comment: NON REACTIVE No serologic evidence of infection to Treponema pallidum (syphilis). Repeat testing may be considered in patients with suspected acute or primary syphilis in 2 to 4 weeks. Performed By: #### V PPCR #### [facility] ([id number]) [address], [address] [place] [address] TSH Qnon 07-27-2024 TSH 1.68 uIU/mL Normal 0.49-4.67 [facility] Comment on above: Performed By: #### V PPCR #### [facility] ([id number]) [address], [address] [place] [address] URINALYSISon 07-12-2024 Bilirubin Ql (U) Negative Normal NEG [facility] Comment on above: Performed By: #### V PPCR #### [facility] ([id number]) [address], [address] [place] [address] BLOOD/HGB Negative Normal NEG [facility] Comment on above: Performed By: #### V PPCR #### [facility] ([id number]) [address], [address] [place] [address] Color (U) YELLOW Normal YELLOW [facility] Comment on above: Performed By: #### V PPCR #### [facility] ([id number]) [address], [address] [place] [address] Glucose Ql (U) Negative Normal NEG [facility] Comment on above: Performed By: #### V PPCR #### [facility] ([id number]) [address], [address] [place] [address] Ketones Ql (U) Negative Normal NEG [facility] Comment on above: Performed By: #### V PPCR #### [facility] ([id number]) [address], [address] [place] [address] Leukocyte esterase Test stri p Ql (U) MODERATE Abnormal NEG [facility] Comment on above: Performed By: #### V PPCR #### [facility] ([id number]) [address], [address] [place] [address] Nitrite Ql (U) Negative Normal NEG [facility] Comment on above: Performed By: #### V PPCR #### [facility] ([id number]) [address], [address] [place] [address] pH (U) 7.0 [pH] Normal 5.0-8.5 [facility] Comment on above: Performed By: #### V PPCR #### [facility] ([id number]) [address] [facility] [address] [place] [address] Protein Ql (U) Negative Normal NEG [facility] Comment on above: Performed By: #### V PPCR #### [facility] ([id number]) [address], [address] [place] [address] R.B.CELLS 5 /hpf Normal 0-5 [facility] Comment on above: Performed By: #### V PPCR #### [facility] ([id number]) [address], [address] [place] [address] Specific gravity (U) [Rel density] 1.025 Normal 1.003-1.03 5 [facility] Comment on above: Performed By: #### V PPCR #### [facility] ([id number]) [address], [address] [place] [address] SQUAMOUS EPITHELIUM 40 /hpf High 0-5 [facility] Comment on above: Performed By: #### V PPCR #### [facility] ([id number]) [address], [address] [place] [address] TURBIDITY HAZY Abnormal CLEAR [facility] Comment on above: Performed By: #### V PPCR #### [facility] ([id number]) [address], [address] [place] [address] Urobilinogen Qn (U) 0.2 {Krishna'U}/dL Normal <1.1 [facility] Comment on above: Performed By: #### V PPCR #### [facility] ([id number]) [address], [address] [place] [address] W.B.CELLS 18 /hpf High 0-5 [facility] Comment on above: Performed By: #### V PPCR #### [facility] ([id number]) [address], [address] [place] [address] US PREG TRANSABD FU PER FETU on [...] Shah MD on 07/07/2024 2:54 PM Normal [facility] RAPID STREP SCR NURSINGon S. pyogenes Ag EIA Ql (Throat) Positive Abnormal NEG [facility] Comment on above: Performed By: #### C #### [facility] ([id number]) [address] [place] [address], [address] [place] [address] SARS/FLU A+B/RSV by NAAT/Mol ecularon 06-25-2024 SARS/FLU A+B/RSV by NAAT/Molecular FLU A [...] operators who are performing tests using either GeneMeUndies DX or GeneGoBeMe systems and is limited to laboratories that [...] repeat. Fact Sheet for Healthcare Providers: https://www.fda.go v/media/673743/jerrod nload Fact Sheet for Patients: https://www.fda.VolunteerSpot v/Justinmind/937793/jerrod nload Normal [facility] Comment on above: Performed By: #### C GS #### [facility] ([id number]) [address], [address] [place] [address] BASIC METABOLIC PANLon 05-15 Anion gap [Moles/Vol] 6 mmol/L Normal 5-15 [facility] Comment on above: Performed By: #### C GS #### [facility] ([id number]) [address], [address] [place] [address] Calcium [Mass/Vol] 9.8 mg/dL Normal 8.5-10.5 [facility] Comment on above: Performed By: #### C GS #### [facility] ([id number]) [address], [address] [place] [address] Chloride [Moles/Vol] 105 mmol/L Normal 98-109 [facility] Comment on above: Performed By: #### C GS #### [facility] ([id number]) [address], [address] [place] [address] CO2 [Moles/Vol] 23 mmol/L Normal 22-32 [facility] Comment on above: Performed By: #### C GS #### [facility] ([id number]) [address] [address] [place] [address] Creatinine [Mass/Vol] 0.56 mg/dL Normal 0.40-1.00 [facility] Comment on above: Result Comment: METH OD TRACEABLE TO IDMS STANDARD Performed By: #### C GS #### [facility] ([id number]) [address], [address] [place] [address] eGFR (CKD-EPI) NON-RACE DEPENDENT >90 Normal >59 [facility] Comment on above: Result Comment: Reported eGFR is based on the CKD-EPI 2020 equation that does not use a race coefficient. Performed By: #### C GS #### [facility] ([id number]) [address] [address] [place] [address] Glucose [Mass/Vol] 88 mg/dL Normal 65-99 [facility] Comment on above: Performed By: #### C GS #### [facility] ([id number]) [address] [address] [place] [address] Potassium [Moles/Vol] 3.9 mmol/L Normal 3.5-5.0 [facility] Comment on above: Performed By: #### C GS #### [facility] ([id number]) [address] [address] [place] [address] Sodium [Moles/Vol] 134 mmol/L Normal 134-146 [facility] Comment on above: Performed By: #### C GS #### [facility] ([id number]) [address] [address] [place] [address] Urea nitrogen [Mass/Vol] 8 mg/dL Normal 5-23 [facility] Comment on above: Performed By: #### C GS #### [facility] ([id number]) [address] [address] [place] [address] CBC AND AUTO DIFFon 05-15-19 25 ABSOLUTE BASOPHIL 0.0 X10E9/L Normal 0.0-0.2 [facility] Comment on above: Performed By: #### C GS #### [facility] ([id number]) [address], [address] [place] [address] ABSOLUTE NEUTROPHIL 6.6 X10E9/L Normal 1.5-6.6 [facility] Comment on above: Performed By: #### C GS #### [facility] ([id number]) [address], [address] [place] [address] Basophils/100 WBC (Bld) 0.5 % Normal [facility] Comment on above: Performed By: #### C GS #### [facility] ([id number]) [address] [address] [place] [address] Eosinophils (Bld) [#/Vol] 0.0 10*3/uL Normal 0.0-0.4 [facility] Comment on above: Performed By: #### C GS #### [facility] ([id number]) [address] [address] [place] [address] Eosinophils/100 WBC (Bld) 0.4 % Normal [facility] Comment on above: Performed By: #### C GS #### [facility] ([id number]) [address] [address] [place] [address] Erythrocyte distribution width (RBC) [Ratio] 14.2 % Normal 11.5-15.0 [facility] Comment on above: Performed By: #### C GS #### [facility] ([id number]) [address], [address] [place] [address] Hematocrit (Bld) [Volume fraction] 37.8 % Normal 35-47 [facility] Comment on above: Performed By: #### C GS #### [facility] ([id number]) [address], [address] [place] [address] Hemoglobin (Bld) [Mass/Vol] 13.0 g/dL Normal 11.7-15. 5 [facility] Comment on above: Performed By: #### C GS #### [facility] ([id number]) [address], [address] [place] [address] Lymphocytes (Bld) [#/Vol] 1.8 10*3/uL Normal 1.0-3.5 [facility] Comment on above: Performed By: #### C GS #### [facility] ([id number]) [address], [address] [place] [address] Lymphocytes/100 WBC (Bld) 20.4 % Normal [facility] Comment on above: Performed By: #### C GS #### [facility] ([id number]) [address], [address] [place] [address] MCH (RBC) [Entitic mass] 27.8 pg Normal 27-34 [facility] Comment on above: Performed By: #### C GS #### [facility] ([id number]) [address], [address] [place] [address] MCHC (RBC) [Mass/Vol] 34.3 g/dL Normal 32-36 [facility] Comment on above: Performed By: #### C GS #### [facility] ([id number]) [address], [address] [place] [address] MCV (RBC) [Entitic vol] 81 fL Normal 80-100 [facility] Comment on above: Performed By: #### C GS #### [facility] ([id number]) [address] [address] [place] [address] Monocytes (Bld) [#/Vol] 0.4 10*3/uL Normal 0-0.9 [facility] Comment on above: Performed By: #### C GS #### [facility] ([id number]) [address] [address] [place] [address] Monocytes/100 WBC (Bld) 4.2 % Normal [facility] Comment on above: Performed By: #### C GS #### [facility] ([id number]) [address] [address] [place] [address] Neutrophils/100 WBC (Bld) 74.5 % Normal [facility] Comment on above: Performed By: #### C GS #### [facility] ([id number]) [address] [address] Platelet mean volume (Bld) [Entitic vol] 9.1 fL Normal 7-12 [facility] Comment on above: Performed By: #### C GS #### [facility] ([id number]) [address] [address] Platelets (Bld) [#/Vol] 269 10*3/uL Normal 150-450 [facility] Comment on above: Performed By: #### C GS #### [facility] ([id number]) [address] [address] [place] [address] RBC COUNT 4.66 X10E12/L Normal 3.80-5.20 [facility] Comment on above: Performed By: #### C GS #### [facility] ([id number]) [address] [address] WBC (Bld) [#/Vol] 8.8 10*3/uL Normal 4.0-11.0 [facility] Comment on above: Performed By: #### C GS #### [facility] ([id number]) [address] [address] CHLAMYDIA/GC BY PCRon 2024 CHLAMYDIA/GC BY PCR [...] are dependent on adequate specimen collection. Normal [facility] Comment on above: Performed By: #### C GS #### [facility] ([id number]) [address], [address] [place] [address] HCG ( test) Ql (U)o n 05-15-2024 Beta HCG ( test) Ql (U) Positive Abnormal NEG [facility] Comment on above: Performed By: #### D JARAMILLO #### [facility] ([id number]) [address] [place] [address], [place] [address] HCG.beta subunit IA 3rd IS Q non 05-15-2024 HCG.beta subunit Qn 217584 m[IU]/mL Normal [facility] Comment on above: Result Comment: NEW REFERENCE [...] neoplasms. Performed By: #### C GS #### [facility] ([id number]) [address], [address] [place] [address] URINE CULTUREon 05-15-2024 Bacteria identified Cx Nom (U) CULTURE RESULTS >100,000 ORGANISMS/ML NORMAL UROGENITAL ALEX Normal [facility] Comment on above: Performed By: #### C GS #### [facility] ([id number]) [address] [place] [address], [address] [place] [address] URN MACROSCOPIC NURon 2024 BILIRUBIN ELOISA Negative Normal NEG [facility] Comment on above: Performed By: #### D JARAMILLO #### [facility] ([id number]) [address] [place] [address] BLOOD/HGB ELOISA Negative Normal NEG [facility] Comment on above: Performed By: #### D JARAMILLO #### [facility] ([id number]) [address] [place] [address] GLUCOSE ELOISA Negative Normal NEG [facility] Comment on above: Performed By: #### D JARAMILLO #### [facility] ([id number]) [address] [place] [address] KETONES ELOISA Negative Normal NEG [facility] Comment on above: Performed By: #### D JARAMILLO #### [facility] ([id number]) [address] [place] [address] LEUKOCYTE ESTERASE ELOISA Large Abnormal NEG Pr [facility] [place] [place] Comment on above: Performed By: #### D JARAMILLO #### [facility] ([id number]) [address] [place] [address] NITRITE ELOISA Negative Normal NEG [facility] Comment on above: Performed By: #### D JARAMILLO #### [facility] ([id number]) [address] [place] [address] PH ELOISA 6.0 Normal 5.0-8.5 [facility] Comment on above: Performed By: #### D JARAMILLO #### [facility] ([id number]) [address] [place] [address] PROTEIN ELOISA Negative Normal NEG [facility] Comment on above: Performed By: #### D JARAMILLO #### [facility] ([id number]) [address] [facility] [address], [place] [address] SPECIFIC GRAVITY ELOISA >=1.030 Normal 1.003-1 .03 5 [facility] Comment on above: Performed By: #### D JARAMILLO #### [facility] ([id number]) [address] [place] [address] UROBILINOGEN ELOISA 1.0 eu/dL Normal <1.1 [facility] Comment on above: Performed By: #### D JARAMILLO #### [facility] ([id number]) [address] [place] [address] US PREG LESS THAN 14 WKS SIN GLEon 05-15-2024 US PREG LESS THAN 14 WKS SINGLE US PREG LESS THAN 14 WKS SINGLE US PREG LESS THAN 14 WKS SINGLE: 05/15/2024 3:42 PM Clinical: Bleeding in early . Real-time transabdominal sonography pelvis performed.. No comparison. There is a single intrauterine with cardiac activity 152 beats per minute. Ghent-rump length of 5.9 cm corresponds to 12 week 3 day gestation. Amount amniotic fluid is normal. Placenta not well seen due to early gestational age. Maternal ovaries are unremarkable. No cul-de-sac fluid seen. Impression: * Single intrauterine 12 week 3 day gestation with cardiac activity. * Ultrasound KARTIK 11/24/2024. 58 Finalized by Fernandez Hernandez MD on 05/15/2024 4:06 PM Normal [facility] VAGINITIS PANEL PCRon 2024 VAGINITIS PANEL PCR [...] clinical presentation to determine patient diagnosis. Normal [facility] Comment on above: Performed By: #### C GS #### [facility] ([id number]) [address] [place] [address], [address] [place] [address] XR CHEST 2 VWSon 03-15-2024 XR CHEST 2 VWS XR CHEST 2 VWS XR CHEST 2 VWS INDICATION: Persistent cough COMPARISON: X-ray 06/23/2022 FINDINGS: Cardiomediastinal silhouette and pulmonary vasculature are within normal limits. Lungs and pleural space are clear. There is no pleural effusion or pneumothorax. IMPRESSION: No acute cardiopulmonary process. 32 Finalized by Ravinder Roca on 03/15/2024 3:56 PM Normal [facility] CBC AND AUTO DIFFon 11-27-19 24 ABSOLUTE BASOPHIL 0.0 X10E9/L Normal 0.0-0.2 [facility] Comment on above: Performed By: #### D JARAMILLO #### [facility] ([id number]) [address] [place] [address] ABSOLUTE NEUTROPHIL 6.4 X10E9/L Normal 1.5-6.6 [facility] Comment on above: Performed By: #### D JARAMILLO #### [facility] ([id number]) [address] [place] [address] Basophils/100 WBC (Bld) 0.2 % Normal [facility] Comment on above: Performed By: #### D JARAMILLO #### [facility] ([id number]) [address] [place] [address] Eosinophils (Bld) [#/Vol] 0.0 10*3/uL Normal 0.0-0.4 [facility] Comment on above: Performed By: #### D JARAMILLO #### [facility] ([id number]) [address] [place] [address] Eosinophils/100 WBC (Bld) 0.3 % Normal [facility] Comment on above: Performed By: #### D JARAMILLO #### [facility] ([id number]) [address] [place] [address] Erythrocyte distribution width (RBC) [Ratio] 13.9 % Normal 11.5-15.0 [facility] Comment on above: Performed By: #### D JARAMILLO #### [facility] ([id number]) [address] [place] [address] Hematocrit (Bld) [Volume fraction] 31.9 % Low 35-47 [facility] Comment on above: Performed By: #### D JARAMILLO #### [facility] ([id number]) [address] [place] [address] Hemoglobin (Bld) [Mass/Vol] 11.0 g/dL Low 11.7-15. 5 [facility] Comment on above: Performed By: #### D JARAMILLO #### [facility] ([id number]) [address] [place] [address] Lymphocytes (Bld) [#/Vol] 2.0 10*3/uL Normal 1.0-3.5 [facility] Comment on above: Performed By: #### D JARAMILLO #### [facility] ([id number]) [address] [place] [address] Lymphocytes/100 WBC (Bld) 21.9 % Normal [facility] Comment on above: Performed By: #### D JARAMILLO #### [facility] ([id number]) [address] [place] [address] MCH (RBC) [Entitic mass] 29.5 pg Normal 27-34 [facility] Comment on above: Performed By: #### D JARAMILLO #### [facility] ([id number]) [address] [place] [address] MCHC (RBC) [Mass/Vol] 34.4 g/dL Normal 32-36 [facility] Comment on above: Performed By: #### D JARAMILLO #### [facility] ([id number]) [address] [place] [address] MCV (RBC) [Entitic vol] 86 fL Normal 80-100 [facility] Comment on above: Performed By: #### D JARAMILLO #### [facility] ([id number]) [address] [place] [address] Monocytes (Bld) [#/Vol] 0.6 10*3/uL Normal 0-0.9 [facility] Comment on above: Performed By: #### D JARAMILLO #### [facility] ([id number]) [address] [place] [address] Monocytes/100 WBC (Bld) 6.8 % Normal [facility] Comment on above: Performed By: #### D JARAMILLO #### [facility] ([id number]) [address] [place] [address] [id number] Neutrophils/100 WBC (Bld) 70.8 % Normal [facility] Comment on above: Performed By: #### D JARAMILLO #### [facility] ([id number]) [address] [place] [address] [id number] Platelet mean volume (Bld) [Entitic vol] 8.6 fL Normal 7-12 [facility] Comment on above: Performed By: #### D JARAMILLO #### [facility] ([id number]) [address] [place] [address] [id number] Platelets (Bld) [#/Vol] 205 10*3/uL Normal 150-450 [facility] Comment on above: Performed By: #### D JARAMILLO #### [facility] ([id number]) [address] [place] [address] [id number] RBC COUNT 3.72 X10E12/L Low 3.80-5.20 [facility] Comment on above: Performed By: #### D JARAMILLO #### [facility] ([id number]) [address] [place] [address] 69596 WBC (Bld) [#/Vol] 9.0 10*3/uL Normal 4.0-11.0 [facility] Comment on above: Performed By: #### D JARAMILLO #### [facility] ([id number]) [address] [place] [address] 51620 COMPREHENSIVE METABOLIC PANE Steven 11-27-2023 Albumin [Mass/Vol] 3.0 g/dL Low 3.2-5.3 [facility] Comment on above: Performed By: #### D JARAMILLO #### [facility] ([id number]) [address] [place] [address] 89597 ALP [Catalytic activity/Vol] 149 U/L High 39-130 [facility] Comment on above: Performed By: #### D JARAMILLO #### [facility] ([id number]) [address] [place] [address] 07799 ALT [Catalytic activity/Vol] 13 U/L Normal 0-31 [facility] Comment on above: Performed By: #### D JARAMILLO #### [facility] ([id number]) [address] [place] [address] 14207 Anion gap [Moles/Vol] 6 mmol/L Normal 5-15 [facility] Comment on above: Performed By: #### D JARAMILLO #### [facility] ([id number]) [address] [place] [address] 76170 AST [Catalytic activity/Vol] 16 U/L Normal 0-41 [facility] Comment on above: Performed By: #### D JARAMILLO #### [facility] ([id number]) [address] [place] [address] 44269 Bilirubin [Mass/Vol] 0.6 mg/dL Normal 0.3-1.2 [facility] Comment on above: Performed By: #### D JARAMILLO #### [facility] ([id number]) [address] [place] [address] 20485 Calcium [Mass/Vol] 8.4 mg/dL Low 8.5-10.5 [facility] Comment on above: Performed By: #### D JARAMILLO #### [facility] ([id number]) [address] [place] [address] 62333 Chloride [Moles/Vol] 106 mmol/L Normal 98-109 [facility] Comment on above: Performed By: #### D JARAMILLO #### [facility] ([id number]) [address] [place] [address] 63422 CO2 [Moles/Vol] 23 mmol/L Normal 22-32 [facility] Comment on above: Performed By: #### D JARAMILLO #### [facility] ([id number]) [address] [place] [address] 26115 Creatinine [Mass/Vol] 0.51 mg/dL Normal 0.40-1.00 [facility] Comment on above: Result Comment: METH OD TRACEABLE TO IDMS STANDARD Performed By: #### D JARAMILLO #### [facility] ([id number]) [address] [place] [address] 78206 eGFR (CKD-EPI) NON-RACE DEPENDENT >90 Normal >59 [facility] Comment on above: Result Comment: Reported eGFR is based on the CKD-EPI 2020 equation that does not use a race coefficient. Performed By: #### D JARAMILLO #### [facility] ([id number]) [address] [place] [address] 31401 Glucose [Mass/Vol] 82 mg/dL Normal 65-99 [facility] Comment on above: Performed By: #### D JARAMILLO #### [facility] ([id number]) [address] [place] [address] 07198 Potassium [Moles/Vol] 3.8 mmol/L Normal 3.5-5.0 [facility] Comment on above: Performed By: #### D JARAMILLO #### [facility] ([id number]) [address] [place] [address] 29114 Protein [Mass/Vol] 6.7 g/dL Normal 6.0-8.0 [facility] Comment on above: Performed By: #### D JARAMILLO #### [facility] ([id number]) [address] [place] [address] 43042 Sodium [Moles/Vol] 135 mmol/L Normal 134-146 [facility] Comment on above: Performed By: #### D JARAMILLO #### [facility] ([id number]) [address] [place] [address] 65358 Urea nitrogen [Mass/Vol] 5 mg/dL Normal 5-23 [facility] Comment on above: Performed By: #### D JARAMILLO #### [facility] ([id number]) [address] [place] [address] 76584 LDH [Catalytic activity/Vol] on 11-27-2023 LDH 68 U/L Low 100-235 [facility] Comment on above: Performed By: #### D JARAMILLO #### [facility] ([id number]) [address] [place] [address] 77567 PROTEIN CREAT RATIOon 2023 RANDOM URINE PROTEIN 150 mg/L High <120 [facility] Comment on above: Performed By: #### D JARAMILLO #### [facility] ([id number]) [address] [place] [address] 29639 U/PRO/WORK FROM HOME RATIO CALC 0.12 Normal <0.2 [facility] Comment on above: Result Comment: Neph rotic Syndrome is associated with ratios >3.5 Performed By: #### D JARAMILLO #### [facility] ([id number]) [address] [place] [address] 77983 URINE CREATININE,RDM 128.08 mg/dL Normal Pr [facility] [place] [place] Comment on above: Performed By: #### D JARAMILLO #### [facility] ([id number]) [address] [place] [address] 14348 URIC ACIDon 11-27-2023 Urate [Mass/Vol] 3.6 mg/dL Normal 2.6-7.2 [facility] Comment on above: Performed By: #### D JARAMILLO #### [facility] ([id number]) [address] [place] [address] 37128 CHLAMYDIA/GC BY PCRon 2023 CHLAMYDIA/GC BY PCR [...] are dependent on adequate specimen collection. Normal [facility] Comment on above: Performed By: #### C GS #### [facility] ([id number]) [address] [place] [address], [address] [place] [address] DRUG SCREEN, URINEon 024 AMPHETAMINE/METHAMP Negative Normal NEG [facility] Comment on above: Result Comment: AMPH /METH screening cut off = 1000 ng/mL Performed By: #### D JARAMILLO #### [facility] ([id number]) [address] [place] [address] 00766 BARBITURATES Negative Normal NEG [facility] Comment on above: Result Comment: Jami iturates screening cut off value = 200 ng/mL Performed By: #### D JARAMILLO #### [facility] ([id number]) [address] [place] [address] 53019 BENZODIAZEPINES Negative Normal NEG [facility] Comment on above: Result Comment: Hunter odiazepines screening cut off value = 200 ng/mL Performed By: #### D JARAMILLO #### [facility] ([id number]) [address] [place] [address] 98282 CANNABINOIDS Negative Normal NEG [facility] Comment on above: Result Comment: Latha abinoids/THC screening cut off value = 50 ng/mL Performed By: #### D JARAMILLO #### [facility] ([id number]) [address] [place] [address] 78064 COCAINE METABOLITE Negative Normal NEG [facility] Comment on above: Result Comment: Coca ine screening cut off value = 300 ng/mL Performed By: #### D JARAMILLO #### [facility] ([id number]) [address] [place] [address] 28793 ECSTASY Negative Normal [facility] Comment on above: Result Comment: Ecst asy screening cut off value = 500 ng/mL This report is intended for use in clinical monitoring or management of patients. Performed By: #### D JARAMILLO #### [facility] ([id number]) [address] [place] [address] [place] [address] METHADONE Negative Normal NEG [facility] Comment on above: Result Comment: Meth adone screening cut off value = 300 ng/mL. Performed By: #### D JARAMILLO #### [facility] ([id number]) [address] [place] [address] 08962 OPIATES Negative Normal NEG [facility] Comment on above: Result Comment: Opia olivia screening cut off value = 300 ng/mL NOTE: This test is used for the detection of codeine, hydrocodone (>1000 ng/mL), morphine and hydromorphone (>900 ng/mL) in urine. Performed By: #### D JARAMILLO #### [facility] ([id number]) [address] [place] [address] 64280 OXYCODONE Negative Normal NEG [facility] Comment on above: Result Comment: Oxyc odone screening cut off value = 300 ng/mL NOTE: This test is used for the detection of oxycodone and oxymorphone in urine. Performed By: #### D JARAMILLO #### [facility] ([id number]) [address] [place] [address] 13391 PHENCYCLIDINE Negative Normal NEG [facility] Comment on above: Result Comment: Phen cyclidine screening cut off value = 25 ng/mL Performed By: #### D JARAMILLO #### [facility] ([id number]) [address] [place] [address] 60269 Fibronectin. Ql (Vag fl d)on 11-17-2023 FIBRONECTIN Negative Normal NEG [facility] Comment on above: Performed By: #### V PPCR #### [facility] ([id number]) [address], [address] [place] [address] #### [id number] #### [facility] ([id number]) [address] [place] [address] 53839 STREP B SCREEN CULTUREon S. agalactiae Org specific c x Ql (Vag+Rectum) CULTURE RESULTS NEGATIVE FOR GROUP B STREPTOCOCCUS BY NUCLEIC ACID AMPLIFICATION Normal [facility] Comment on above: Performed By: #### D JARAMILLO #### [facility] ([id number]) [address] [place] [address] 05886 URINALYSISon 11-17-2023 Bilirubin Ql (U) SMALL Abnormal NEG [facility] Comment on above: Result Comment: Not confirmed, interpret positive results with caution. Performed By: #### U A #### [facility] ([id number]) [address] [place] [address] 72147 BLOOD/HGB Negative Normal NEG [facility] Comment on above: Performed By: #### U A #### [facility] ([id number]) [address] [place] [address] 91848 Color (U) YELLOW Normal YELLOW [facility] Comment on above: Performed By: #### U A #### [facility] ([id number]) [address] [place] [address] 55709 Glucose Ql (U) Negative Normal NEG [facility] Comment on above: Performed By: #### U A #### [facility] ([id number]) [address] [place] [address] 65021 Ketones Ql (U) >80 Abnormal NEG [facility] Comment on above: Performed By: #### U A #### [facility] ([id number]) [address] [place] [address] 42050 Leukocyte esterase Test stri p Ql (U) MODERATE Abnormal NEG [facility] Comment on above: Performed By: #### U A #### [facility] ([id number]) [address] [place] [address] 95662 Nitrite Ql (U) Negative Normal NEG [facility] Comment on above: Performed By: #### U A #### [facility] ([id number]) [address] [place] [address] [place] [address] pH (U) 6.0 [pH] Normal 5.0-8.5 [facility] Comment on above: Performed By: #### U A #### [facility] ([id number]) [address] [place] [address] 15606 Protein Ql (U) 30 mg/dL Abnormal NEG [facility] Comment on above: Performed By: #### U A #### [facility] ([id number]) [address] [place] [address] 75415 R.B.CELLS 0 /hpf Normal 0-5 [facility] Comment on above: Performed By: #### U A #### [facility] ([id number]) [address] [place] [address] 12897 Specific gravity (U) [Rel density] >1.030 Normal 1.003-1.03 5 [facility] Comment on above: Performed By: #### U A #### [facility] ([id number]) [address] [place] [address] 79482 SQUAMOUS EPITHELIUM 13 /hpf High 0-5 [facility] Comment on above: Performed By: #### U A #### [facility] ([id number]) [address] [place] [address] 55461 TURBIDITY CLEAR Normal CLEAR [facility] Comment on above: Performed By: #### U A #### [facility] ([id number]) [address] [place] [address] 04399 Urobilinogen Qn (U) 1.0 {Krishna'U}/dL Normal <1.1 [facility] Comment on above: Performed By: #### U A #### [facility] ([id number]) [address] [place] [address] 36585 W.B.CELLS 9 /hpf High 0-5 [facility] Comment on above: Performed By: #### U A #### [facility] ([id number]) [address] [place] [address] 16180 URINE CULTUREon 11-17-2023 Bacteria identified Cx Nom (U) CULTURE RESULTS >100,000 ORGANISMS/ML NORMAL UROGENITAL ALEX Normal [facility] Comment on above: Performed By: #### D JARAMILLO #### [facility] ([id number]) [address] [place] [address] 60801 VAGINITIS PANEL PCRon 2023 VAGINITIS PANEL PCR [...] clinical presentation to determine patient diagnosis. Normal [facility] Comment on above: Performed By: #### V PPCR #### [facility] ([id number]) [address] [place] [address], [address] [place] [address] #### [id number] #### [facility] ([id number]) [address] [place] [address] 88290 US BIOPHYSICAL PROFILE FET W O NSTon [...] Danny Mcdonough MD on 10/22/2023 5:06 AM [facility] CHLAMYDIA/GC BY PCRon 2023 CHLAMYDIA/GC BY [...] are dependent on adequate specimen collection. Normal [facility] Comment on above: Performed By: #### C GS #### [facility] ([id number]) [address] [place] [address], [address] [place] [address] DRUG SCREEN, URINEon 024 AMPHETAMINE/METHAMP Negative Normal NEG [facility] Comment on above: Result Comment: AMPH /METH screening cut off = 1000 ng/mL Performed By: #### D JARAMILLO #### [facility] ([id number]) [address] [place] [address] 78427 BARBITURATES Negative Normal NEG [facility] Comment on above: Result Comment: Jami iturates screening cut off value = 200 ng/mL Performed By: #### D JARAMILLO #### [facility] ([id number]) [address] [place] [address] 90478 BENZODIAZEPINES Negative Normal [facility] Comment on above: Result Comment: Hunter odiazepines screening cut off value = 200 ng/mL Performed By: #### D JARAMILLO #### [facility] ([id number]) [address] [place] [address] 73517 CANNABINOIDS Negative Normal NEG [facility] Comment on above: Result Comment: Latha abinoids/THC screening cut off value = 50 ng/mL Performed By: #### D JARAMILLO #### [facility] ([id number]) [address] [place] [address] 39448 COCAINE METABOLITE Negative Normal NEG [facility] Comment on above: Result Comment: Coca ine screening cut off value = 300 ng/mL Performed By: #### D JARAMILLO #### [facility] ([id number]) [address] [place] [address] 95715 ECSTASY Negative Normal NEG [facility] Comment on above: Result Comment: Ecst asy screening cut off value = 500 ng/mL This report is intended for use in clinical monitoring or management of patients. Performed By: #### D JARAMILLO #### [facility] ([id number]) [address] [place] [address] 21893 METHADONE Negative Normal NEG [facility] Comment on above: Result Comment: Meth adone screening cut off value = 300 ng/mL. Performed By: #### D JARAMILLO #### [facility] ([id number]) [address] [place] [address] 62264 OPIATES Negative Normal [facility] Comment on above: Result Comment: Opia olivia screening cut off value = 300 ng/mL NOTE: This test is used for the detection of codeine, hydrocodone (>1000 ng/mL), morphine and hydromorphone (>900 ng/mL) in urine. Performed By: #### D JARAMILLO #### [facility] ([id number]) [address] [place] [address] 88100 OXYCODONE Negative Normal [facility] Comment on above: Result Comment: Oxyc odone screening cut off value = 300 ng/mL NOTE: This test is used for the detection of oxycodone and oxymorphone in urine. Performed By: #### D JARAMILLO #### [facility] ([id number]) [address] [place] [address] 15749 PHENCYCLIDINE Negative Normal [facility] Comment on above: Result Comment: Phen cyclidine screening cut off value = 25 ng/mL Performed By: #### D JARAMILLO #### [facility] ([id number]) [address] [place] [address] 37875 URINALYSISon 10-17-2023 Bilirubin Ql (U) Negative Normal NEG [facility] Comment on above: Performed By: #### U A #### [facility] ([id number]) [address] [place] [address] [place] [address] BLOOD/HGB Negative Normal NEG [facility] Comment on above: Performed By: #### U A #### [facility] ([id number]) [address] [place] [address], [place] [address] [place] OXALATE CRYSTALS 4 Abnormal NONE [facility] Comment on above: Performed By: #### U A #### [facility] ([id number]) [address] [place] [address] [place] [address] Color (U) YELLOW Normal YELLOW [facility] Comment on above: Performed By: #### U A #### [facility] ([id number]) [address] [place] [address] [place] [address] Glucose Ql (U) Negative Normal NEG [facility] Comment on above: Performed By: #### U A #### [facility] ([id number]) [address] [place] [address], [place] [address] Ketones Ql (U) Trace Abnormal NEG [facility] Comment on above: Performed By: #### U A #### [facility] ([id number]) [address] [place] [address] [place] [address] Leukocyte esterase Test stri p Ql (U) SMALL Abnormal NEG [facility] Comment on above: Performed By: #### U A #### [facility] ([id number]) [address] [place] [address], [place] [address] Nitrite Ql (U) Negative Normal NEG [facility] Comment on above: Performed By: #### U A #### [facility] ([id number]) [address] [place] [address] [place] [address] pH (U) 6.5 [pH] Normal 5.0-8.5 [facility] Comment on above: Performed By: #### U A #### [facility] ([id number]) [address] [place] [address] 91983 Protein Ql (U) 30 mg/dL Abnormal NEG [facility] Comment on above: Performed By: #### U A #### [facility] ([id number]) [address] [place] [address] 51421 R.B.CELLS 6 /hpf High 0-5 [facility] Comment on above: Performed By: #### U A #### [facility] ([id number]) [address] [place] [address] 35793 Specific gravity (U) [Rel density] 1.025 Normal 1.003-1.03 5 [facility] Comment on above: Performed By: #### U A #### [facility] ([id number]) [address] [place] [address] 72943 SQUAMOUS EPITHELIUM 10 /hpf High 0-5 [facility] Comment on above: Performed By: #### U A #### [facility] ([id number]) [address] [place] [address] 61931 TURBIDITY CLEAR Normal CLEAR [facility] Comment on above: Performed By: #### U A #### [facility] ([id number]) [address] [place] [address] 67985 Urobilinogen Qn (U) 2.0 {Krishna'U}/dL High <1.1 [facility] Comment on above: Performed By: #### U A #### [facility] ([id number]) [address] [place] [address] 06623 W.B.CELLS 30 /hpf High 0-5 [facility] Comment on above: Performed By: #### U A #### [facility] ([id number]) [address] [place] [address] [place] [address] VAGINITIS PANEL PCRon 2023 VAGINITIS PANEL PCR [...] clinical presentation to determine patient diagnosis. Normal [facility] Comment on above: Performed By: #### V PPCR #### [facility] ([id number]) [address] [place] [address], [address] [place] [address] CBC AND AUTO DIFFon 09-18-19 24 ABSOLUTE BASOPHIL 0.0 X10E9/L Normal 0.0-0.2 [facility] Comment on above: Performed By: #### C OMID, 3040-3, CBCA #### [facility] ([id number]) [address] [place] [address] 15103 ABSOLUTE NEUTROPHIL 7.3 X10E9/L High 1.5-6.6 [facility] Comment on above: Performed By: #### C OMID, 3040-3, CBCA #### [facility] ([id number]) [address] [place] [address] 94072 Basophils/100 WBC (Bld) 0.3 % Normal [facility] Comment on above: Performed By: #### C OMID, 3040-3, CBCA #### [facility] ([id number]) [address] [place] [address] 05225 Eosinophils (Bld) [#/Vol] 0.0 10*3/uL Normal 0.0-0.4 [facility] Comment on above: Performed By: #### C OMID, 3039-3, CBCA #### [facility] ([id number]) [address] [place] [address] 21971 Eosinophils/100 WBC (Bld) 0.5 % Normal [facility] Comment on above: Performed By: #### C OMID, 3039-, CBCA #### [facility] ([id number]) [address] [place] [address] 49230 Erythrocyte distribution width (RBC) [Ratio] 12.8 % Normal 11.5-15.0 [facility] Comment on above: Performed By: #### C OMID, 3039-07, CBCA #### [facility] ([id number]) [address] [place] [address] 25667 Hematocrit (Bld) [Volume fraction] 33.3 % Low 35-47 [facility] Comment on above: Performed By: #### C OMID, 3039-07, CBCA #### [facility] ([id number]) [address] [place] [address] 61038 Hemoglobin (Bld) [Mass/Vol] 12.0 g/dL Normal 11.7-15. 5 [facility] Comment on above: Performed By: #### C OMID, 3039-07, CBCA #### [facility] ([id number]) [address] [place] [address] 32570 Lymphocytes (Bld) [#/Vol] 2.0 10*3/uL Normal 1.0-3.5 [facility] Comment on above: Performed By: #### C OMID, 3039-3, CBCA #### [facility] ([id number]) [address] [place] [address] 22635 Lymphocytes/100 WBC (Bld) 20.3 % Normal [facility] Comment on above: Performed By: #### C OMID, 3039-, CBCA #### [facility] ([id number]) [address] [place] [address] 60089 MCH (RBC) [Entitic mass] 30.8 pg Normal 27-34 [facility] Comment on above: Performed By: #### C OMID, 3039-07, CBCA #### [facility] ([id number]) [address] [place] [address] 84755 MCHC (RBC) [Mass/Vol] 36.0 g/dL Normal 32-36 [facility] Comment on above: Performed By: #### C OMID, 3039-07, CBCA #### [facility] ([id number]) [address] [place] [address] 39133 MCV (RBC) [Entitic vol] 85 fL Normal 80-100 [facility] Comment on above: Performed By: #### Ann-Marie ANNE, 3039-07, CBCA #### [facility] ([id number]) [address] [place] [address] 85118 Monocytes (Bld) [#/Vol] 0.5 10*3/uL Normal 0-0.9 [facility] Comment on above: Performed By: #### Ann-Marie ANNE, 3039-07, CBCA #### [facility] ([id number]) [address] [place] [address] 21296 Monocytes/100 WBC (Bld) 5.2 % Normal [facility] Comment on above: Performed By: #### Ann-Marie ANNE, 3039-07, CBCA #### [facility] ([id number]) [address] [place] [address] 69505 Neutrophils/100 WBC (Bld) 73.7 % Normal [facility] Comment on above: Performed By: #### Ann-Marie ANNE, 3, CBCA #### [facility] ([id number]) [address] [place] [address] 48661 Platelet mean volume (Bld) [Entitic vol] 8.3 fL Normal 7-12 [facility] Comment on above: Performed By: #### C OMID, 3040-3, CBCA #### [facility] ([id number]) [address] [place] [address] 71077 Platelets (Bld) [#/Vol] 203 10*3/uL Normal 150-450 [facility] Comment on above: Performed By: #### C OMID, 3039-3, CBCA #### [facility] ([id number]) [address] [place], [place] [id number] RBC COUNT 3.89 X10E12/L Normal 3.80-5.20 [facility] Comment on above: Performed By: #### C OMID, 3039-3, CBCA #### [facility] ([id number]) [address] [place], [place] [id number] WBC (Bld) [#/Vol] 9.8 10*3/uL Normal 4.0-11.0 [facility] Comment on above: Performed By: #### C OMID, 3039-3, CBCA #### [facility] ([id number]) [address] [place], [place] [id number] COMPREHENSIVE METABOLIC PANE Steven 09-18-2023 Albumin [Mass/Vol] 2.9 g/dL Low 3.2-5.3 [facility] Comment on above: Performed By: #### C OMID, 0-3, CBCA #### [facility] ([id number]) [address] [place], [place] [id number] ALP [Catalytic activity/Vol] 71 U/L Normal 39-130 [facility] Comment on above: Performed By: #### C OMID, 3040-3, CBCA #### [facility] ([id number]) [address] [place] [address] ALT [Catalytic activity/Vol] 9 U/L Normal 0-31 [facility] Comment on above: Performed By: #### C OMID, 3039-, CBCA #### [facility] ([id number]) [address] [place] [address] 14945 Anion gap [Moles/Vol] 10 mmol/L Normal 5-15 [facility] Comment on above: Performed By: #### C OMID, 3039-07, CBCA #### [facility] ([id number]) [address] [place] [address] 04418 AST [Catalytic activity/Vol] 15 U/L Normal 0-41 [facility] Comment on above: Performed By: #### C OMID, 3039-07, CBCA #### [facility] ([id number]) [address] [place] [address] 13511 Bilirubin [Mass/Vol] 0.4 mg/dL Normal 0.3-1.2 [facility] Comment on above: Performed By: #### C OMID, 3039-07, CBCA #### [facility] ([id number]) [address] [place] [address] 15108 Calcium [Mass/Vol] 8.2 mg/dL Low 8.5-10.5 [facility] Comment on above: Performed By: #### C OMID, 3039-07, CBCA #### [facility] ([id number]) [address] [place] [address] 96637 Chloride [Moles/Vol] 103 mmol/L Normal 98-109 [facility] Comment on above: Performed By: #### C OMID, 3039-07, CBCA #### [facility] ([id number]) [address] [place] [address] 76520 CO2 [Moles/Vol] 21 mmol/L Low 22-32 [facility] Comment on above: Performed By: #### Ann-Marie ANNE, 3039-07, CBCA #### [facility] ([id number]) [address] [place] [address] 26557 Creatinine [Mass/Vol] 0.51 mg/dL Normal 0.40-1.00 [facility] Comment on above: Result Comment: METH OD TRACEABLE TO IDMS STANDARD Performed By: #### C OMID, 3040-3, CBCA #### [facility] ([id number]) [address] [place] [address] 12425 eGFR (CKD-EPI) NON-RACE DEPENDENT >90 Normal >59 [facility] Comment on above: Result Comment: Reported eGFR is based on the CKD-EPI 2020 equation that does not use a race coefficient. Performed By: #### C OMID, 3040-3, CBCA #### [facility] ([id number]) [address] [place] [address] 73830 Glucose [Mass/Vol] 92 mg/dL Normal 65-99 [facility] Comment on above: Performed By: #### C OMID, 3040-3, CBCA #### [facility] ([id number]) [address] [place] [address] 30250 Potassium [Moles/Vol] 3.7 mmol/L Normal 3.5-5.0 [facility] Comment on above: Performed By: #### C OMID, 3040-3, CBCA #### [facility] ([id number]) [address] [place] [address] 14876 Protein [Mass/Vol] 6.5 g/dL Normal 6.0-8.0 [facility] Comment on above: Performed By: #### C OMID, 3040-3, CBCA #### [facility] ([id number]) [address] [place] [address] 99797 Sodium [Moles/Vol] 134 mmol/L Normal 134-146 [facility] Comment on above: Performed By: #### C OMID, 3040-3, CBCA #### [facility] ([id number]) [address] [place] [address] 63614 Urea nitrogen [Mass/Vol] 14 mg/dL Normal 5-23 [facility] Comment on above: Performed By: #### C OMID, 3040-3, CBCA #### [facility] ([id number]) [address] [place] [address] 26890 LIPASEon 09-18-2023 Lipase [Catalytic activity/Vol] 48 U/L High 17-40 [facility] Comment on above: Performed By: #### C OMID, 3040-3, CBCA #### [facility] ([id number]) [address] [place] [address] 52940 URINE CULTUREon 09-18-2023 Bacteria identified Cx Nom (U) CULTURE RESULTS <10,000 ORGANISMS/ML NORMAL URO GENITAL ALEX Normal [facility] Comment on above: Performed By: #### 6 30-4 #### [facility] ([id number]) [address] [place] [address], [address] [place] [address] URN MACROSCOPIC NURon 2023 BILIRUBIN ELOISA Negative Normal NEG [facility] Comment on above: Performed By: #### N UM #### [facility] ([id number]) [address] [place] [address] 16928 BLOOD/HGB ELOISA Negative Normal NEG [facility] Comment on above: Performed By: #### N UM #### [facility] ([id number]) [address] [place] [address] 39887 GLUCOSE ELOISA Negative Normal NEG [facility] Comment on above: Performed By: #### N UM #### [facility] ([id number]) [address] [place] [address] 27464 KETONES ELOISA Negative Normal NEG [facility] Comment on above: Performed By: #### N UM #### [facility] ([id number]) [address] [place] [address] 09656 LEUKOCYTE ESTERASE ELOISA Negative Normal NEG [facility] Comment on above: Performed By: #### N UM #### [facility] ([id number]) [address] [place] [address] NITRITE ELOISA Negative Normal NEG [facility] Comment on above: Performed By: #### N UM #### [facility] ([id number]) [address] [place] [address] 05737 PH ELOISA 7.0 Normal 5.0-8.5 [facility] Comment on above: Performed By: #### N UM #### [facility] ([id number]) [address] [place] [address] 55776 PROTEIN ELOISA Negative Normal NEG [facility] Comment on above: Performed By: #### N UM #### [facility] ([id number]) [address] [place] [address] 49674 SPECIFIC GRAVITY ELOISA 1.020 Normal 1.003-1 .03 5 [facility] Comment on above: Performed By: #### N UM #### [facility] ([id number]) [address] [place] [address] 04248 UROBILINOGEN ELOISA 0.2 eu/dL Normal <1.1 [facility] Comment on above: Performed By: #### N UM #### [facility] ([id number]) [address] [place] [address] 85787 Thyroid profile includes TSH FT4on 08-29-2023 Free T4 [Mass/Vol] 0.71 ng/dL 0.61 - 1.60 ng/dL [facility] TSH Qn 2.04 m[IU]/L [facility] US PREG GREATER THAN 14 WKS SNGL TRANSABon 08-29-2023 US PREG GREATER THAN 14 WKS SNGL TRANSAB US PREG GREATER THAN 14 WKS SNGL TRANSAB *ADDENDUM*Addendum : Corrected impression: Estimated weight is 19.9%. 58 Finalized by Fernandez Hernandez MD on 08/29/2023 1:52 PM Normal [facility] US TRANSVAGINAL PREGon 08-28 US TRANSVAGINAL PREG US TRANSVAGINAL PREG *ADDENDUM*Addendum : Corrected impression: Estimated weight is 19.9%. 58 Finalized by Fernandez Hernandez MD on 08/29/2023 1:52 PM Normal [facility] Urinalysison 08-29-2023 Bilirubin Ql (U) Negative Negative^N egative [facility] Color (U) YELLOW YELLOW^YEL LOW [facility] Epithelial cells Auto (Urine sed) [#/Area] 12 High [facility] Glucose (U) [Mass/Vol] Negative Negat tong^N egative mg/dL [facility] Hemoglobin Auto test strip Q l (U) Negative Negative^N egative [facility] Interpretation and review of laboratory results Abnormal [facility] Ketones (U) [Mass/Vol] Negative Negat tong^N egative mg/dL [facility] Leukocyte esterase Auto test strip Ql (U) Large Abnormal Negative^N egative [facility] Mucus Ql (Urine sed) PRESENT Abnormal NONE^NONE [facility] Nitrite Auto test strip Ql (U) Negative Negative^N egative [facility] pH (U) 6.5 [pH] 5.0 - 8.5 [facility] Protein (U) [Mass/Vol] Trace Abnormal Negat tong^N egative mg/dL [facility] RBC Auto (Urine sed) [#/Area] 2 [facility] Specific gravity Refractometry automated (U) [Rel density] 1.021 1.003 - 1.035 [facility] S[place]mat[place] LM Ql (Urine sed) PRESENT Abnormal NONE^N ONE [facility] Turbidity Ql (U) HAZY Abnormal CLEAR^LANDON R [facility] Urobilinogen Qn (U) NINF [facility] WBC Auto (Urine sed) [#/Area] 91 High [facility] Drug Screen, Urineon 024 Amphetamines Screen method >1000 ng/mL Ql (U) Negative Negative^N egative [facility] Comment on above: AMPH/METH screening cut off = 1000 ng/mL Barbiturates Screen Ql (U) Negative N egative^N [facility] Comment on above: Barbiturates screeni ng cut off value = 200 ng/mL Benzodiazepines Ql (U) Negative Negat tong^N [facility] Comment on above: Benzodiazepines scre ening cut off value = 200 ng/mL Cocaine Ql (U) Negative Negative^N [facility] Comment on above: Cocaine screening cu t off value = 300 ng/mL Interpretation and review of laboratory results Abnormal [facility] Methadone Screen Ql (U) Negative Nega tive^N [facility] Comment on above: Methadone screening cut off value = 300 ng/mL. Methylenedioxymethamphetamin e Screen Ql (U) Negative Negative^N [facility] Comment on above: Ecstasy screening cu t off value = 500 ng/mL This report is intended for use in clinical monitoring or management of patients. Opiates Screen Ql (U) Negative Negati ve^N [facility] Comment on above: Opiates screening cu t off value = 300 ng/mL NOTE: This test is used for the detection of codeine, hydrocodone (>1000 ng/mL), morphine and hydromorphone (>900 ng/mL) in urine. oxyCODONE Ql (U) Negative Negative^N [facility] Comment on above: Oxycodone screening cut off value = 300 ng/mL NOTE: This test is used for the detection of oxycodone and oxymorphone in urine. Phencyclidine Screen method >25 ng/mL Ql (U) Negative Negative^N [facility] Comment on above: Phencyclidine screen ing cut off value = 25 ng/mL Tetrahydrocannabinol Screen method >50 ng/mL Ql (U) Positive Abnormal Negative^N [facility] Comment on above: Confirmation availab le upon request. Cannabinoids/THC screening cut off value = 50 ng/mL [facility] HCG ( test) Ql (U)o n 08-22-2023 Beta HCG ( test) Ql (U) Positive Abnormal NEG [facility] Comment on above: Performed By: #### 2 106-3 #### [facility] ([id number]) [address] [place] [address] 22188 URN MACROSCOPIC NURon 2023 BILIRUBIN ELOISA Negative Normal NEG [facility] Comment on above: Performed By: #### N UM #### [facility] ([id number]) [address] [place] [address] 15261 BLOOD/HGB ELOISA Negative Normal NEG [facility] Comment on above: Performed By: #### N UM #### [facility] ([id number]) [address] [place] [address] 80916 GLUCOSE ELOISA Negative Normal NEG [facility] Comment on above: Performed By: #### N UM #### [facility] ([id number]) [address] [place] [address] 39505 KETONES ELOISA Trace Abnormal NEG [facility] Comment on above: Performed By: #### N UM #### [facility] ([id number]) [address] [place] [address] 13798 LEUKOCYTE ESTERASE ELOISA Small Abnormal NEG [facility] Comment on above: Performed By: #### N UM #### [facility] ([id number]) [address] [place] [address] 06191 NITRITE ELOISA Negative Normal NEG [facility] Comment on above: Performed By: #### N UM #### [facility] ([id number]) [address] [place] [address] 83038 PH ELOISA 6.0 Normal 5.0-8.5 [facility] Comment on above: Performed By: #### N UM #### [facility] ([id number]) [address] [place] [address] 62290 PROTEIN ELOISA Negative Normal NEG [facility] Comment on above: Performed By: #### N UM #### [facility] ([id number]) [address] [place] [address] 88206 SPECIFIC GRAVITY ELOISA >=1.030 Normal 1.003-1 .03 5 [facility] Comment on above: Performed By: #### N UM #### [facility] ([id number]) [address] [place] [address] 00437 UROBILINOGEN ELOISA 0.2 eu/dL Normal <1.1 [facility] Comment on above: Performed By: #### N UM #### [facility] ([id number]) [address] [place] [address] Cult,Urineon 11-06-2022 Cult,Urine Specimen Description .Source, Unspecified Culture ESCHERICHIA COLI >[id number] CFU/ML Report Status FINAL 11/06/2022 SUSCEPTIBILITY Organism [...] Tobramycin <=1 SUSCEPTIBLE Trimethoprim/Sulfa >=320 RESISTANT Resistant [facility] Comment on above: Performed By: #### U RC #### [address] [id number] License And Permit Specialist: Tripp Martínez MD [facility] [address] [place] [address] Dr[place] [id number] License And Permit Specialist: Jean Aldrich MD CBC with Diffon 11-04-2022 Abs. Basophil <0.03 Normal 0.00-0.20 [facility] Comment on above: Performed By: #### C P, CDP, LIP #### [address] [place] [address] License And Permit Specialist: Jean Aldrich MD Abs.Imm.Granulocyte <0.03 Normal 0.00-0.30 [facility] Comment on above: Performed By: #### C P, CDP, LIP #### [address] [place], [place] 8[address]83 License And Permit Specialist: Jean Aldrich MD Abs.Neutrophil (Seg) 4.42 k/uL Normal 1.80-8.00 [facility] Comment on above: Performed By: #### C P, CDP, LIP #### [address] [place], [facility] License And Permit Specialist: Jean Aldrich MD Basophils/100 WBC (Bld) 0 % Normal 0-2 [facility] Comment on above: Performed By: #### C P, CDP, LIP #### [address] [place], [place] [address] License And Permit Specialist: Jean Aldrich MD Eosinophils (Bld) [#/Vol] 0.06 10*3/uL Normal 0.00-0.4 4 [facility] Comment on above: Performed By: #### C P, CDP, LIP #### [address] [place], [facility] License And Permit Specialist: Jean Aldrich MD Eosinophils/100 WBC (Bld) 1 % Normal 1-4 [facility] Comment on above: Performed By: #### C P, CDP, LIP #### [address] [place], [facility] License And Permit Specialist: Jean Aldrich MD Erythrocyte distribution width (RBC) [Ratio] 12.0 % Normal 11.8-14.4 [facility] Comment on above: Performed By: #### C P, CDP, LIP #### [address] [place], [facility] License And Permit Specialist: Jean Aldrich MD Hematocrit (Bld) [Volume fraction] 33.9 % Low 36.3-47.1 [facility] Comment on above: Performed By: #### C P, CDP, LIP #### [address] [place], [facility] License And Permit Specialist: Jean Aldrich MD Hemoglobin (Bld) [Mass/Vol] 12.2 g/dL Normal 11.9-15. 1 [facility] Comment on above: Performed By: #### C P, CDP, LIP #### [facility] [address] [place], [place] [id number] License And Permit Specialist: Jean Aldrich MD Immature granulocytes/100 WB C (Bld) 0 % Normal 0 [facility] Comment on above: Performed By: #### C P, CDP, LIP #### [address] [place] [id number] License And Permit Specialist: Jean Aldrich MD Lymphocytes (Bld) [#/Vol] 1.23 10*3/uL Normal 1.20-5.2 0 [facility] Comment on above: Performed By: #### C P, CDP, LIP #### [address] [place], [place] [address] License And Permit Specialist: Jean Aldrich MD Lymphocytes/100 WBC (Bld) 20 % Low 25-45 [facility] Comment on above: Performed By: #### C P, CDP, LIP #### [address] [place], [facility] License And Permit Specialist: Jean Aldrich MD MCH (RBC) [Entitic mass] 29.6 pg Normal 25.2-33.5 [facility] Comment on above: Performed By: #### C P, CDP, LIP #### [address] [place], [facility] License And Permit Specialist: Jean Aldrich MD MCHC (RBC) [Mass/Vol] 36.0 g/dL High 28.4-34.8 [facility] Comment on above: Performed By: #### C P, CDP, LIP #### [address] [place], [facility] License And Permit Specialist: Jean Aldrich MD MCV (RBC) [Entitic vol] 82.3 fL Low 82.6-102.9 [facility] Comment on above: Performed By: #### C P, CDP, LIP #### [facility] [address] [place], [place] [id number] License And Permit Specialist: Jean Aldrich MD Monocytes (Bld) [#/Vol] 0.50 10*3/uL Normal 0.10-1.40 [facility] Comment on above: Performed By: #### C P, CDP, LIP #### [facility] [address] [place], [place] [id number] License And Permit Specialist: Jean Aldrich MD Monocytes/100 WBC (Bld) 8 % Normal 2-8 [facility] Comment on above: Performed By: #### C P, CDP, LIP #### [address] [place], [facility] License And Permit Specialist: Jean Aldrich MD Neutrophil (Seg) 71 % High 34-64 [facility] Comment on above: Performed By: #### C P, CDP, LIP #### [address] [place], [place] [id number] License And Permit Specialist: Jean Aldrich MD NRBC Automated 0.0 per 100 WBC Normal 0.0 [facility] Comment on above: Performed By: #### C P, CDP, LIP #### [address] [place], [place] [id number] License And Permit Specialist: Jean Aldrich MD Platelet mean volume (Bld) [Entitic vol] 10.6 fL Normal 8.1-13.5 [facility] Comment on above: Performed By: #### C P, CDP, LIP #### [address] [place], [place] 96[address]83 License And Permit Specialist: Jean Aldrich MD Platelets (Bld) [#/Vol] 218 10*3/uL Normal 138-453 [facility] Comment on above: Performed By: #### C P, CDP, LIP #### [facility] [address] [place], [place] [id number] License And Permit Specialist: Jean Aldrich MD RBC (Bld) [#/Vol] 4.12 10*6/uL Normal 3.95-5.11 [facility] Comment on above: Performed By: #### C P, CDP, LIP #### [facility] [address] [place], [place] [id number] License And Permit Specialist: Jean Aldrich MD WBC (Bld) [#/Vol] 6.3 10*3/uL Normal 4.5-13.5 [facility] Comment on above: Performed By: #### C P, CDP, LIP #### [address] [place] [address] License And Permit Specialist: Jean Aldrich MD Comp Metabolic Profon 2022 Albumin [Mass/Vol] 3.6 g/dL Normal 3.5-5.2 [facility] Comment on above: Performed By: #### C P, CDP, LIP #### [facility] [address] [place], [place] [id number] License And Permit Specialist: Jean Aldrich MD Albumin/Glob Ratio 1.2 Normal 1.0-2.5 [facility] Comment on above: Performed By: #### C P, CDP, LIP #### [facility] [address] [place] [address] License And Permit Specialist: Jean Aldrich MD Alkaline Phos 66 U/L Normal 35-104 [facility] Comment on above: Performed By: #### C P, CDP, LIP #### [facility] [address] [place] [address] License And Permit Specialist: Jean Aldrich MD ALT [Catalytic activity/Vol] 14 U/L Normal 5-33 [facility] Comment on above: Performed By: #### C P, CDP, LIP #### [facility] [address] [place], [place] 383[address]83 License And Permit Specialist: Jean Aldrich MD Anion gap [Moles/Vol] 10 mmol/L Normal 9-17 [facility] Comment on above: Performed By: #### C P, CDP, LIP #### [facility] [address] [place], [place] [id number] License And Permit Specialist: Jean Aldrich MD AST [Catalytic activity/Vol] 15 U/L Normal <32 [facility] Comment on above: Performed By: #### C P, CDP, LIP #### [facility] [address] [place], [place] [id number] License And Permit Specialist: Jean Aldrich MD Bilirubin [Mass/Vol] 0.3 mg/dL Normal 0.3-1.2 [facility] Comment on above: Performed By: #### C P, CDP, LIP #### [facility] [address] [place] [address] Dr[place], [place] [phone] License And Permit Specialist: Jean Aldrich MD BUN/CRE Ratio 5 Low 9-20 [facility] Comment on above: Performed By: #### C P, CDP, LIP #### [facility] [address] [place], [place] [phone] License And Permit Specialist: Jean Aldrich MD Calcium [Mass/Vol] 9.2 mg/dL Normal 8.6-10.4 [facility] Comment on above: Performed By: #### C P, CDP, LIP #### [facility] [address] [place], [place] [phone] License And Permit Specialist: Jean Aldrich MD Chloride [Moles/Vol] 103 mmol/L Normal 98-107 [facility] Comment on above: Performed By: #### C P, CDP, LIP #### [facility] [address] [place] [address] License And Permit Specialist: Jean Aldrich MD CO2 [Moles/Vol] 20 mmol/L Normal 20-31 [facility] Comment on above: Performed By: #### C P, CDP, LIP #### [facility] [address] [place] [address] License And Permit Specialist: Jean Aldrich MD Creatinine [Mass/Vol] 0.40 mg/dL Low 0.50-0.90 [facility] Comment on above: Performed By: #### C P, CDP, LIP #### [facility] [address] [place] [address] License And Permit Specialist: Jean Aldrich MD GFR/1.73 sq M.predicted carie g non-blacks MDRD (S/P/Bld) [Vol rate/Area] mL/min/{1.73_m2} Normal >60 [facility] [place] Comment on above: Result Comment: These results [...] By: #### C P, CDP, LIP #### [address] [place] [address] License And Permit Specialist: Jean Aldrich MD Glucose [Mass/Vol] 77 mg/dL Normal 70-99 [facility] [place] Comment on above: Performed By: #### C P, CDP, LIP #### [facility] [address] [place] [address] License And Permit Specialist: Jean Aldrich MD Potassium [Moles/Vol] 3.2 mmol/L Low 3.7-5.3 [facility] Comment on above: Performed By: #### C P, CDP, LIP #### [address] [place], [place] [id number] License And Permit Specialist: Jean Aldrich MD Protein [Mass/Vol] 6.6 g/dL Normal 6.4-8.3 [facility] [place] Comment on above: Performed By: #### C P, CDP, LIP #### [facility] [address] [place], [place] [id number] License And Permit Specialist: Jean Aldrich MD Sodium [Moles/Vol] 133 mmol/L Low 135-144 [facility] [place] Comment on above: Performed By: #### C P, CDP, LIP #### [facility] [address] [place], [place] [id number] License And Permit Specialist: Jean Aldrich MD Urea nitrogen [Mass/Vol] 2 mg/dL Low 6-20 [facility] [place] Comment on above: Performed By: #### C P, CDP, LIP #### [facility] [address] [place], [place] [id number] License And Permit Specialist: Jean Aldrich MD Lipaseon 4 Lipase [Catalytic activity/Vol] 39 U/L Normal 13-60 [facility] [place] Comment on above: Performed By: #### C P, CDP, LIP #### [facility] [address] [place] [address] [place] [place], [place] [phone] License And Permit Specialist: Jean Aldrich MD UA w/Reflex Cultureon 2022 Bilirubin, SemiQt,Ur Negative Normal NEG [facility] Comment on above: Performed By: #### U AX UMICAO #### [facility] [address] [place], [place] [id number] License And Permit Specialist: Jean Aldrich MD Blood, Urine Negative Normal NEG [facility] [place] Comment on above: Performed By: #### U AX, UMICAO #### [facility] [address] [place], [place] [id number] License And Permit Specialist: Jean Aldrich MD Clarity (U) Cloudy Abnormal CLEAR [facility] [place] Comment on above: Performed By: #### U AX, UMICAO #### [facility] [address] [place], [place] [id number] License And Permit Specialist: Jean Aldrich MD Color (U) Yellow Normal YEL [facility] [place] Comment on above: Performed By: #### U AX, UMICAO #### [facility] [address] [place], [place] [id number] License And Permit Specialist: Jean Aldrich MD Glucose Ql (U) Negative Normal NEG [facility] in Hospital Comment on above: Performed By: #### U AX, UMICAO #### [facility] [address] [place], [place] [id number] License And Permit Specialist: Jean Aldrich MD Ketones Ql (U) 4+ Abnormal NEG [facility] Comment on above: Performed By: #### U AX, UMICAO #### [facility] [address] [place], [place] [id number] License And Permit Specialist: Jean Aldrich MD Leukocyte esterase Test stri p Ql (U) MODERATE Abnormal NEG [facility] [place] Comment on above: Performed By: #### U AX, UMICAO #### [facility] [address] [place] [address] Dr[address] [place], [place] [phone] License And Permit Specialist: Jean Aldrich MD Nitrite,Ur Positive Abnormal NEG [facility] [place] Comment on above: Performed By: #### U AX, UMICAO #### [facility] [address] [place], [place] [phone] License And Permit Specialist: Jean Aldrich MD PH,Ur 6.0 Normal 5.0-9.0 [facility] [place] Comment on above: Performed By: #### U AX, UMICAO #### [facility] [address] [place] [address] License And Permit Specialist: Jean Aldrich MD Protein Ql (U) Negative Normal NEG [facility] Comment on above: Performed By: #### U AX, UMICAO #### [facility] [address] [place], [place] [phone] License And Permit Specialist: Jean Aldrich MD Spec. [place],Ur 1.025 High 1.010-1.02 0 [facility] [place] Comment on above: Performed By: #### U AX, UMICAO #### [facility] [address] [place], [place] [address] License And Permit Specialist: Jean Aldrich MD Urobilinogen,Ur Normal Normal NORM [facility] Comment on above: Performed By: #### U AX, UMICAO #### [address] [place], [place] [address] License And Permit Specialist: Jean Aldrich MD Urinalysis,Microon 3 Bacteria 3+ Abnormal [facility] Comment on above: Performed By: #### U AX, UMICAO #### [facility] [address] [place] [address] Dr. [place], [facility] License And Permit Specialist: Jean Aldrich MD Crystals LM Nom (Urine sed) 0 TO 2 Abnormal [facility] Comment on above: Result Comment: CALC IUM OXALATE Performed By: #### U AX, UMICAO #### [address] [place], [place] [id number] License And Permit Specialist: Jean Aldrich MD Epithelial cells LM Ql (Urin e sed) 5 TO 10 Normal 0-25 [facility] [place] Comment on above: Performed By: #### U AX, UMICAO #### [facility] [address] [place], [facility] License And Permit Specialist: Jean Aldrich MD Mucus Strands TRACE Abnormal [facility] Comment on above: Performed By: #### U AX, UMICAO #### [facility] [address] [place], [facility] License And Permit Specialist: Jean Aldrich MD Urine RBC's 0 TO 2 Normal 0-2 [facility] [place] Comment on above: Performed By: #### U AVELINA SPENCER #### [facility] [address] [place] [address] License And Permit Specialist: Jean Aldrich MD Urine WBC's 10 TO 20 Normal 0-5 [facility] [place] Comment on above: Performed By: #### U AVELINA SPENCER #### [facility] [address] [place], [place] [phone] License And Permit Specialist: Jean Aldrich MD XR CHEST PORTABLEon 11-05-19 XR [...] Violette Benitez MD 11/04/22 Final result Normal [facility] CBC with Diffon 10-30-2022 Abs. Basophil <0.03 Normal 0.00-0.20 [facility] Comment on above: Performed By: #### C P, PT, CDP ####[address] , [place] [phone] Lab Director: Jean Aldrich MD Abs.Imm.Granulocyte 0.03 k/uL Normal 0.00-0.30 [facility] [place] Comment on above: Performed By: #### C P, PT, CDP ####[address] , [place] 2335583 Lab Director: Jean Aldrich MD Abs.Neutrophil (Seg) 6.65 k/uL Normal 1.80-8.00 [facility] Comment on above: Performed By: #### C P, PT, CDP ####[address] , [place] [address] [facility] Director: Jean Aldrich MD Basophils/100 WBC (Bld) 0 % Normal 0-2 [facility] Comment on above: Performed By: #### C P, PT, CDP ####[address] , [facility]83 Lab Director: Jean Aldrich MD Eosinophils (Bld) [#/Vol] 0.06 10*3/uL Normal 0.00-0.4 4 [facility] [place] Comment on above: Performed By: #### C P, PT, CDP ####[address] , [place] [address] Lab Director: Jean Aldrich MD Eosinophils/100 WBC (Bld) 1 % Normal 1-4 [facility] [place] Comment on above: Performed By: #### C P, PT, CDP ####[address] , [place] [address])[phone] Director: Jean Aldrich MD Erythrocyte distribution width (RBC) [Ratio] 11.9 % Normal 11.8-14.4 [facility] [place] Comment on above: Performed By: #### C P, PT, CDP ####[address] , [place] [address] Lab Director: Jean Aldrich MD Hematocrit (Bld) [Volume fraction] 35.9 % Low 36.3-47.1 [facility] [place] Comment on above: Performed By: #### C P, PT, CDP ####[address] , [facility]83 Lab Director: Jean Aldrich MD Hemoglobin (Bld) [Mass/Vol] 12.6 g/dL Normal 11.9-15. 1 [facility] [place] Comment on above: Performed By: #### C P, PT, CDP ####[address] , [facility] Lab Director: Jean Aldrich MD Immature granulocytes/100 WB C (Bld) 0 % Normal 0 [facility] Comment on above: Performed By: #### C P, PT, CDP ####[address] [place] [address] Lab Director: Jean Aldrich MD Lymphocytes (Bld) [#/Vol] 2.00 10*3/uL Normal 1.20-5.2 0 [facility] [place] Comment on above: Performed By: #### C P, PT, CDP ####[address] [place] [address] Lab Director: Jean Aldrich MD Lymphocytes/100 WBC (Bld) 22 % Low 25-45 [facility] [place] Comment on above: Performed By: #### C P, PT, CDP ####[address] , [facility]83[facility])[phone] Director: Jean Aldrich MD MCH (RBC) [Entitic mass] 29.6 pg Normal 25.2-33.5 [facility] [place] Comment on above: Performed By: #### C P, PT, CDP ####[address] [place] [address] Lab Director: Jean Aldrich MD MCHC (RBC) [Mass/Vol] 35.1 g/dL High 28.4-34.8 [facility] Comment on above: Performed By: #### C P, PT, CDP ####[address] , [place] [phone] Director: Jean Aldrich MD MCV (RBC) [Entitic vol] 84.3 fL Normal 82.6-102.9 [facility] Comment on above: Performed By: #### C P, PT, CDP ####[address] [place] [address] Lab Director: Jean Aldrich MD Monocytes (Bld) [#/Vol] 0.38 10*3/uL Normal 0.10-1.40 [facility] [place] Comment on above: Performed By: #### C P, PT, CDP ####[address] [place] [address] Lab Director: Jean Aldrich MD Monocytes/100 WBC (Bld) 4 % Normal 2-8 [facility] Comment on above: Performed By: #### C P, PT, CDP ####[address] [place] [address] Lab Director: Jean Aldrich MD Neutrophil (Seg) 73 % High 34-64 [facility] Comment on above: Performed By: #### C P, PT, CDP ####[address] [place] [address] Lab Director: Jean Aldrich MD NRBC Automated 0.0 per 100 WBC Normal 0.0 [facility] [place] Comment on above: Performed By: #### C P, PT, CDP ####[address] [place] [address] Lab Director: Jean Aldrich MD Platelet mean volume (Bld) [Entitic vol] 11.0 fL Normal 8.1-13.5 [facility] [place] Comment on above: Performed By: #### C P, PT, CDP ####[address] [place] [address] Lab Director: Jean Aldrich MD Platelets (Bld) [#/Vol] 249 10*3/uL Normal 138-453 [facility] [place] Comment on above: Performed By: #### C P, PT, CDP ####[address] , [place] 2770983 Lab Director: Jean Aldrich MD RBC (Bld) [#/Vol] 4.26 10*6/uL Normal 3.95-5.11 [facility] [place] Comment on above: Performed By: #### C P, PT, CDP ####[address] , [place] [address])[phone] Director: Jean Aldrich MD WBC (Bld) [#/Vol] 9.1 10*3/uL Normal 4.5-13.5 [facility] [place] Comment on above: Performed By: #### C P, PT, CDP ####[address] [place] [address] Lab Director: Jean Aldrich MD Comp Metabolic Profon 2022 Albumin [Mass/Vol] 3.9 g/dL Normal 3.5-5.2 [facility] [place] Comment on above: Performed By: #### C P, PT, CDP ####[address] , [place] [address])[phone] Director: Jean Aldrich MD Albumin/Glob Ratio 1.3 Normal 1.0-2.5 [facility] [place] Comment on above: Performed By: #### C P, PT, CDP ####[address] [place] [address] Lab Director: Jean Aldrich MD Alkaline Phos 65 U/L Normal 35-104 [facility] Comment on above: Performed By: #### C P, PT, CDP ####[address] , [place] [address])[phone] Director: Jean Aldrich MD ALT [Catalytic activity/Vol] 21 U/L Normal 5-33 [facility] [place] Comment on above: Performed By: #### C P, PT, CDP ####[address] , [place] 799[address]83 Lab Director: Jean Aldrich MD Anion gap [Moles/Vol] 12 mmol/L Normal 9-17 [facility] Comment on above: Performed By: #### C P, PT, CDP ####[facility] , [place] 4082483 Lab Director: Jean Aldrich MD AST [Catalytic activity/Vol] 13 U/L Normal <32 [facility] [place] Comment on above: Performed By: #### C P, PT, CDP ####[address] , [place] 3327183 Lab Director: Jean Aldrich MD Bilirubin [Mass/Vol] 0.4 mg/dL Normal 0.3-1.2 [facility] Comment on above: Performed By: #### C P, PT, CDP ####[address] , [place] 8213183 Lab Director: Jean Aldrich MD BUN/CRE Ratio 10 Normal 9-20 [facility] Comment on above: Performed By: #### C P, PT, CDP ####[address] [place] [address] Lab Director: Jean Aldrich MD Calcium [Mass/Vol] 9.6 mg/dL Normal 8.6-10.4 [facility] [place] Comment on above: Performed By: #### C P, PT, CDP ####[address] [place] [address] Lab Director: Jean Aldrich MD Chloride [Moles/Vol] 102 mmol/L Normal 98-107 [facility] Comment on above: Performed By: #### C P, PT, CDP ####[address] [place] [address] Lab Director: Jean Aldrich MD CO2 [Moles/Vol] 22 mmol/L Normal 20-31 [facility] Comment on above: Performed By: #### C P, PT, CDP ####[address] , [place] 5161283 Lab Director: Jean Aldrich MD Creatinine [Mass/Vol] 0.41 mg/dL Low 0.50-0.90 [facility] Comment on above: Performed By: #### C P, PT, CDP ####[address] , [place] 9159383 lab Director: Jean Aldrich MD GFR/1.73 sq M.predicted carie g non-blacks MDRD (S/P/Bld) [Vol rate/Area] mL/min/{1.73_m2} Normal >60 [facility] [place] Comment on above: Result Comment: These results [...] Performed By: #### C P, PT, CDP ####[address] , [place] 8693383 Lab Director: Jean Aldrich MD Glucose [Mass/Vol] 82 mg/dL Normal 70-99 [facility] [place] Comment on above: Performed By: #### C P, PT, CDP ####[address] , [place] [phone] lab Director: Jean Aldrich MD Potassium [Moles/Vol] 3.7 mmol/L Normal 3.7-5.3 [facility] Comment on above: Performed By: #### C P, PT, CDP ####[address] , [place] 7580283 Lab Director: Jean Aldrich MD Protein [Mass/Vol] 6.9 g/dL Normal 6.4-8.3 [facility] [place] Comment on above: Performed By: #### C P, PT, CDP ####[address] [place] [address] lab Director: Jean Aldrich MD Sodium [Moles/Vol] 136 mmol/L Normal 135-144 [facility] [place] Comment on above: Performed By: #### C P, PT, CDP ####[facility] [place] [address] lab Director: Jean Aldrich MD Urea nitrogen [Mass/Vol] 4 mg/dL Low 6-20 [facility] [place] Comment on above: Performed By: #### C P, PT, CDP ####[facility] [place] [address] lab Director: Jean Aldrich MD HCG, Quanton 10-30-2022 HCG, Quant [id number] mIU/mL High <5 [facility] Comment on above: Result Comment: Non-preg premeno <=5 Postmeno <=8 Male <=3 If HCG results do not concur with clinical observations, additional testing to confirm results is recommended. Performed By: #### B HCG ####[address] [place] [address] lab Director: Jean Aldrich MD PTon 10-30-2022 INR Coag (PPP) [Relative time] 1.0 {INR} Normal [facility] Comment on above: Result Comment: Therapeutic Range: Moderate Anticoagulant Intensity: INR = 2.0-3.0 High Anticoagulant Intensity: INR = 2.5-3.5 Performed By: #### C P, PT, CDP ####[address] [place] [address] lab Director: Jean Aldrich MD PT Coag (PPP) [Time] 12.9 s Normal 11.9-14.8 [facility] Comment on above: Performed By: #### C P, PT, CDP ####[address] [place] [address] lab Director: Jean Aldrich MD Type + Screenon 10-30-2022 Type + Screen Sample Expiration 11/02/2022,2359 Arm Band Number [id number] ABO/Rh(D) O POSITIVE Antibody Screen NEGATIVE Normal [facility] Comment on above: Performed By: #### T YS ####[facility] [place] [address] lab Director: Jean Aldrich MD US DUP ABD PEL RETRO [...] hematoma. Twin A: [place]: Not seen [place] Length: 5.3 cm Heart Rate: 156 beats per minute Twin B: Yolk sac: Not seen [place]-rump length: 5.6 cm heart rate: 158 beats [...] Madyson Gabriel DO 10/30/22 Final result Normal [facility] US OB LESS THAN 14 WEEKS SIN [...] hematoma. Twin A: [place]: Not seen [place] Length: 5.3 cm Heart Rate: 156 beats per minute Twin B: Yolk sac: Not seen [place]-r[place] length: 5.6 cm heart rate: 158 beats [...] Madyson Gabriel DO 10/30/22 Final result Normal [facility] Urinalysis, Routineon 2022 Bilirubin, SemiQt,Ur Negative Normal NEG [facility] Comment on above: Performed By: #### U A, UMICAO #### [facility] [address] [place] [address] [place] [place], [place] [phone] License And Permit Specialist: Jean Aldrich MD Blood, Urine Negative Normal NEG [facility] Comment on above: Performed By: #### U A, UMICAO #### [facility] [address] [place] [address] [place] [place], [place] 4867583 License And Permit Specialist: Jean Aldrich MD Clarity (U) Cloudy Abnormal CLEAR [facility] Comment on above: Performed By: #### U A, UMICAO #### [facility] [address] [place] [address] Dr. [place], [place] [phone] License And Permit Specialist: Jean Aldrich MD Color (U) Yellow Normal YEL [facility] Comment on above: Performed By: #### U A, UMICAO #### [facility] [address] [place] [address] Dr[address] [place], [place] 9692583 License And Permit Specialist: Jean Aldrich MD Glucose Ql (U) Negative Normal NEG [facility] Comment on above: Performed By: #### U A, UMICAO #### [facility] [address] [place] [address] Dr[address] [place], [place] [phone] License And Permit Specialist: Jean Aldrich MD Ketones Ql (U) 1+ Abnormal NEG [facility] in [facility] Comment on above: Performed By: #### U A, UMICAO #### [facility] [address] [place] [address] Dr[place], [place] [phone] License And Permit Specialist: Jean Aldrich MD Leukocyte esterase Test stri p Ql (U) LARGE Abnormal NEG [facility] Comment on above: Performed By: #### U A, UMICAO #### [facility] [address] [place], [place] [id number] License And Permit Specialist: Jean Aldrich MD Nitrite,Ur Negative Normal NEG [facility] Comment on above: Performed By: #### U A, UMICAO #### [facility] [address] [place] [address] Dr[place], [place] [id number] License And Permit Specialist: Jean Aldrich MD PH,Ur 6.5 Normal 5.0-9.0 [facility] Comment on above: Performed By: #### U A, UMICAO #### [facility] [address] [place] [address] [place] [address] License And Permit Specialist: Jean Aldrich MD Protein Ql (U) Negative Normal NEG [facility] Comment on above: Performed By: #### U A, UMICAO #### [facility] [address] [place] [address] Dr. [place], [facility] License And Permit Specialist: Jean Aldrich MD Spec. [place],Ur 1.025 High 1.010-1.02 0 [facility] Comment on above: Performed By: #### U A, UMICAO #### [address] [place], [place] [phone] License And Permit Specialist: Jean Aldrich MD Urobilinogen,Ur ELEVATED Abnormal NORM [facility] Comment on above: Performed By: #### U A, UMICAO #### [facility] [address] [place] [address] Dr. [place], [facility] License And Permit Specialist: Jean Aldrich MD Urinalysis,Microon 3 Bacteria 4+ Abnormal NONE [facility] Comment on above: Performed By: #### U A, UMICAO #### [facility] [address] [place] [address] Dr[address] [place], [place] [phone] License And Permit Specialist: Jean Aldrich MD Epithelial cells LM Ql (Urin e sed) 5 TO 10 Normal 0-25 [facility] Comment on above: Performed By: #### U A UMICAO #### [facility] [address] [place], [place] [phone] License And Permit Specialist: Jean Aldrich MD Mucus Strands 3+ Abnormal NONE [facility] Comment on above: Performed By: #### U A, UMICAO #### [facility] [address] [place], [place] [phone] License And Permit Specialist: Jean Aldrich MD Urine RBC's 2 TO 5 Normal 0-2 [facility] Comment on above: Performed By: #### U A, UMICAO #### [facility] [address] [place], [place] [phone] License And Permit Specialist: Jean Aldrich MD Urine WBC's 20 TO 50 Normal 0-5 [facility] Comment on above: Performed By: #### U A, UMICAO #### [facility] [address] [place], [facility] License And Permit Specialist: Jean Aldrich MD CHLAMYDIA/GONOCOCCUS BI ( AB/URINE/PAPon 08-20-2022 Chlamydia trachomatis, BI Negative Normal Negative [facility] Comment on above: Performed By: #### C T/NGNA #### [facility] [address] [place] [address] Dr. Keo Ivory Neisseria gonorrhoeae, BI Negative Normal Negative [facility] Comment on above: Performed By: #### C T/NGNA #### [facility] [address] [place] [address] Dr. Keo Ivory CULTURE URINEon 08-20-2022 CULTURE [...] F Trimethoprim/Sulfa methoxazole >=320 R F Normal [facility] Comment on above: Performed By: #### U RCX #### [facility] [address] [place] [address] [address] Keo Ivory ER URINE PROFILEon 3 Bilirubin Ql (U) Negative Normal NEGATIVE [facility] Comment on above: Performed By: #### U MICRO, PREGU, ERUR #### [facility] [address] [place] [address] [address] Keo Ivory Clarity (U) SL CLOUDY Abnormal CLEAR [facility] Comment on above: Performed By: #### U MICRO, PREGU, ERUR #### [facility] [address] [place] [address] Dr. Keo Ivory Color (U) LT. YELLOW Normal YELLOW [facility] Comment on above: Performed By: #### U MICRO, PREGU, ERUR #### [facility] [address] [place] [address] Dr. Keo CEDENO A micrscopic examination will be performed if indicated. Normal [facility] Comment on above: Performed By: #### U MICRO, PREGU, ERUR #### [facility] [address] [address] [address] Keo Ivory Glucose Ql (U) Negative Normal NEGATIVE [facility] Comment on above: Performed By: #### U MICRO, PREGU, ERUR #### [facility] [address] [address] [address] Keo Ivory Hemoglobin Ql (U) TRACE-INTACT Abnormal NEGATIVE [facility] Comment on above: Performed By: #### U MICRO, PREGU, ERUR #### [facility] [address] [place] [address] Dr. Keo Ivory Ketones Ql (U) Negative Normal NEGATIVE [facility] Comment on above: Performed By: #### U MICRO, PREGU, ERUR #### [facility] [address] [address] [address] Keo Ivory LEUKOCYTES Negative Normal NEGATIVE [facility] Comment on above: Performed By: #### U MICRO, PREGU, ERUR #### [facility] [address] [address] [address] Keo Ivory Nitrite Ql (U) Positive Abnormal NEGATIVE [facility] Comment on above: Performed By: #### U MICRO, PREGU, ERUR #### [facility] [address] [address] [address] Keo Ivory pH (U) 6.0 [pH] Normal 5-9 [facility] Comment on above: Performed By: #### U MICRO, PREGU, ERUR #### [facility] [address] [address] [address] Keo Ivory SPEC GRAVITY 1.020 Normal 1.005-<=1. 025 [facility] Comment on above: Performed By: #### U MICRO, PREGU, ERUR #### [facility] [address] [address] [address] Keo Ivory UA PROTEIN Negative Normal NEGATIVE/ TRACE [facility] Comment on above: Performed By: #### U MICRO, PREGU, ERUR #### [facility] [address] [address] [address] Keo Ivory UR MICRO IND INDICATED Normal [facility] Comment on above: Performed By: #### U MICRO, PREGU, ERUR #### [facility] [address] [address] [address] Keo Ivory Urobilinogen Qn (U) 0.2 {Krishna'U}/dL Normal 0.2 - 1. 0 [facility] Comment on above: Performed By: #### U MICRO, PREGU, ERUR #### [facility] [address] [address] [address] Keo Ivory URon 08-17-2022 , QUAL Negative Normal NEGATIVE [facility] Comment on above: Performed By: #### U MICRO, PREGU, ERUR #### [facility] [address] [place] [address] Dr. Keo Ivory URINE MICROSCOPIC ONLYon BACTERIA LARGE Abnormal NONE SEEN The [facility] Comment on above: Performed By: #### U MICRO, PREGU, ERUR #### [facility] [address] [place] [address] Dr. Keo Ivory Bacteria identified Cx Nom (U) INDICATED Normal [facility] Comment on above: Performed By: #### U MICRO, PREGU, ERUR #### [facility] [address] [address] [address] Keo Ivory CAST NONE SEEN Normal NONE SEEN The [facility] Comment on above: Performed By: #### U MICRO, PREGU, ERUR #### [facility] [address] [place] [address] Dr. Keo Ivory Crystals LM Nom (Urine sed) NONE SEEN Normal NONE SEE N [facility] Comment on above: Performed By: #### U MICRO, PREGU, ERUR #### [facility] [address] [place] [address] Dr. Keo Ivory Epithelial cells LM Ql (Urin e sed) FEW Abnormal NONE SEEN /RARE [facility] Comment on above: Performed By: #### U MICRO, PREGU, ERUR #### [facility] [address] [place] [address] Dr. Keo Ivory MUCOUS NONE SEEN Normal NONE SEEN The [facility] Comment on above: Performed By: #### U MICRO, PREGU, ERUR #### [facility] [address] [place] [address] Dr. Keo Ivory RBC NONE SEEN Abnormal 0-2 [facility] Comment on above: Performed By: #### U MICRO, PREGU, ERUR #### [facility] [address] [place] [address] Dr. Keo Ivory WBC 5-10 Abnormal NONE SEEN The [facility] Comment on above: Performed By: #### U MICRO, PREGU, ERUR #### [facility] [address] [place] [address] Dr. Keo Ivory SARS-CoV-2 (COVID-19) RNA NA A+probe Ql (Resp)on 11-14-2021 SARS-CoV-2 (COVID-19) RNA BI+probe Ql (Unsp spec) Negative [employer] Other PREG QUANT HCGon 10-30-2021 HCG QUANT <1 Normal [facility] Comment on above: Performed By: #### P REGQNT #### [facility] [address] [address] [address] Keo Ivory HCG RANGE SEE BELOW Normal [facility] Comment on above: Result Comment: 5-50 0-1 WEEK 40-300 1-2 WEEKS 100-1,000 2-3 WEEKS 500-6,000 3-4 WEEKS 5,000-200,000 1-2 MONTHS 10,000-100,000 2-3 MONTHS 3,000-50,000 2ND TRIMESTER 1,000-50,000 3RD TRIMESTER Performed By: #### P REGQNT #### [facility] [address] [address] [address] Keo Ivory Vital Signs Date Time Vital Sign Value Performing Clinician Facility 09-02-2024 15:09-0400 Body weight 82.44 kg Osmany Jena DO Work Phone: [facility] 09-02-2024 15:09-0400 Diastolic blood pressure 58 mm[Hg] Osmany Jena DO Work Phone: [facility] 09-02-2024 15:09-0400 Systolic blood pressure 106 mm[Hg] Osmany Ejna DO Work Phone: [facility] 08-12-2024 15:13-0400 Body weight 81.7 kg Osmany Jena DO Work Phone: [facility] 08-12-2024 15:13-0400 Diastolic blood pressure 72 mm[Hg] Osmany Jena DO Work Phone: [facility] 08-12-2024 15:13-0400 Systolic blood pressure 106 mm[Hg] Osmany Jena DO Work Phone: [facility] 07-16-2024 08:54-0400 Body weight 80.56 kg [facility] Nurse [facility] 07-16-2024 08:54-0400 Diastolic blood pressure 70 mm[Hg] [facility] Nurse [facility] 07-16-2024 08:54-0400 Systolic blood pressure 120 mm[Hg] [facility] Nurse [facility] 12-06-2023 13:05-0400 Body mass index (BMI) [Ratio] 30.87 kg/m2 Amaya Cruz EXECUTIVE CANDIDATE DEVELOPER-ARCGIS DEVELOPER Work Phone: [facility] 12-06-2023 13:05-0400 Body weight 76.57 kg Amaya Cruz EXECUTIVE CANDIDATE DEVELOPER-ARCGIS DEVELOPER Work Phone: [facility] 12-06-2023 13:05-0400 Diastolic blood pressure 74 mm[Hg] Amaya Cummingsin EXECUTIVE CANDIDATE DEVELOPER-ARCGIS DEVELOPER Work Phone: [facility] 12-06-2023 13:05-0400 Systolic blood pressure 106 mm[Hg] Amaya Cruz EXECUTIVE CANDIDATE DEVELOPER-ARCGIS DEVELOPER Work Phone: [facility] 11-27-2023 11:11-0400 Body mass index (BMI) [Ratio] 30.35 kg/m2 [facility] 11-27-2023 11:11-0400 Body weight 75.3 kg [facility] 11-27-2023 11:11-0400 Diastolic blood pressure 80 mm[Hg] [facility] 11-27-2023 11:11-0400 Systolic blood pressure 108 mm[Hg] [facility] 11-19-2023 10:04-0400 Body mass index (BMI) [Ratio] 29.62 kg/m2 Sallylogan Fontenoto EXECUTIVE CANDIDATE DEVELOPER-ARCGIS DEVELOPER Work Phone: [facility] 11-19-2023 10:04-0400 Body weight 73.48 kg Sallylogan Fontenoto EXECUTIVE CANDIDATE DEVELOPER-ARCGIS DEVELOPER Work Phone: [facility] 11-19-2023 10:04-0400 Diastolic blood pressure 60 mm[Hg] Sally Fontenoto EXECUTIVE CANDIDATE DEVELOPER-ARCGIS DEVELOPER Work Phone: [facility] 11-19-2023 10:04-0400 Systolic blood pressure 102 mm[Hg] Sally Newman EXECUTIVE CANDIDATE DEVELOPER-ARCGIS DEVELOPER Work Phone: [facility] 10-10-2023 15:38-0400 Body mass index (BMI) [Ratio] 30.98 kg/m2 Mallika Raúl EXECUTIVE CANDIDATE DEVELOPER-CNM Work Phone: [facility] 10-10-2023 15:38-0400 Body weight 76.84 kg Mallika Raúl EXECUTIVE CANDIDATE DEVELOPER-CNM Work Phone: [facility] 10-10-2023 15:38-0400 Diastolic blood pressure 60 mm[Hg] Mallika Raúl EXECUTIVE CANDIDATE DEVELOPER-CNM Work Phone: [facility] 10-10-2023 15:38-0400 Systolic blood pressure 110 mm[Hg] Mallika Raúl EXECUTIVE CANDIDATE DEVELOPER-CNM Work Phone: [facility] 09-12-2023 15:22-0400 Body mass index (BMI) [Ratio] 29.89 kg/m2 Mallika Raúl EXECUTIVE CANDIDATE DEVELOPER-CNM Work Phone: [facility] 09-12-2023 15:22-0400 Body weight 74.12 kg Mallika Raúl EXECUTIVE CANDIDATE DEVELOPER-CNM Work Phone: [facility] 09-12-2023 15:22-0400 Diastolic blood pressure 60 mm[Hg] Mallika Raúl EXECUTIVE CANDIDATE DEVELOPER-CNM Work Phone: [facility] 09-12-2023 15:22-0400 Systolic blood pressure 110 mm[Hg] Mallika Raúl EXECUTIVE CANDIDATE DEVELOPER-CNM Work Phone: [facility] 08-29-2023 13:49-0400 Body mass index (BMI) [Ratio] 29.37 kg/m2 Mallika Raúl EXECUTIVE CANDIDATE DEVELOPER-CNM Work Phone: [facility] 08-29-2023 13:49-0400 Body weight 72.85 kg Mallika Raúl EXECUTIVE CANDIDATE DEVELOPER-CNM Work Phone: [facility] 08-29-2023 13:49-0400 Diastolic blood pressure 60 mm[Hg] Mallika Conn EXECUTIVE CANDIDATE DEVELOPER-CNM Work Phone: [facility] 08-29-2023 13:49-0400 Systolic blood pressure 120 mm[Hg] Mallika Conn EXECUTIVE CANDIDATE DEVELOPER-CNM Work Phone: [facility] 08-28-2023 13:48-0400 Body mass index (BMI) [Ratio] 29.3 kg/m2 Bph 2 [facility] 08-28-2023 13:48-0400 Body weight 72.67 kg Bph 2 [facility] 08-28-2023 13:48-0400 Diastolic blood pressure 64 mm[Hg] Bph 2 [facility] 08-28-2023 13:48-0400 Systolic blood pressure 110 mm[Hg] Bph 2 [facility] 08-23-2023 10:55-0400 Body mass index (BMI) [Ratio] 29.63 kg/m2 Bph Instrument And Control Technician [facility] 08-23-2023 10:55-0400 Body weight 73.48 kg Bph Instrument And Control Technician [facility] 08-23-2023 10:55-0400 Diastolic blood pressure 62 mm[Hg] Bph [facility] 08-23-2023 10:55-0400 Systolic blood pressure 112 mm[Hg] Bph [facility] 11-14-2021 17:00-0400 Body height 165.1 cm Amaya Luu Other [employer] Other 11-14-2021 17:00-0400 Body mass index (BMI) [Ratio] 29.95 kg/m2 Amaya Luu Other [employer] Other 11-14-2021 17:00-0400 Body temperature 99 [degF] Amaya Luu Other [employer] Other 11-14-2021 17:00-0400 Body weight 81.65 kg Amaya Luu Other [employer] Other 11-14-2021 17:00-0400 Respiratory rate 16 /min Amaya Luu Other [employer] Other 11-14-2021 17:00-0400 SaO2% (BldA) [Mass fraction] 97 % Amaya Luu Other [employer] Other Encounters Encounter Date Encounter Type Care Provider Facility Start: 09-22-2024 End: 09-22-2024 ambulatory [facility] Start: 09-22-2024 End: 09-24-2024 Evaluation and management of inpatient [facility] Start: 09-21-2024 End: 09-21-2024 ambulatory NO PCP NO PCP [facility] Start: 09-21-2024 End: 09-21-2024 ambulatory [facility] Start: 09-18-2024 End: 09-22-2024 ambulatory JEAN Fodr [facility] Start: 09-18-2024 End: 09-18-2024 Emergency department patient visit NO PCP NO PCP [facility] Start: 09-02-2024 End: 09-02-2024 Office outpatient visit 15 minutes Osmany Jena DO Work Phone: [facility] Comment on above: 28 weeks gestation o f Start: 09-02-2024 End: 09-02-2024 ambulatory OSMANY JENA Not Available Start: 09-02-2024 End: 09-02-2024 Clinisync Result Encounter Osmany Jena DO Work Phone: [facility] Unsolicited Start: 09-02-2024 End: 09-02-2024 Clinisync Result Encounter Osmany Jena DO Work Phone: [facility] Unsolicited Start: 09-01-2024 ambulatory OSMANY R JENA [facility] Start: 08-12-2024 End: 08-12-2024 ambulatory OSMANY JENA Not Available Start: 08-12-2024 End: 08-12-2024 Patient encounter procedure Osmany Jena DO Work Phone: [facility] Work Phone: Start: 08-12-2024 End: 08-12-2024 Periodic preventive med est patient 18-39 yrs Osmany Jena DO Work Phone: [facility] Comment on above: Well woman exam with routine gynecological exam; Vaginal discharge; STD exposure; Missed menses; , unspecified gestational age; Diabetes mellitus screening; Flank pain Start: 08-12-2024 End: 08-12-2024 Bamboo flowsheet Osmany Jena DO Work Phone: [facility] Start: 08-12-2024 End: 08-20-2024 Bamboo flowsheet Osmany Jena DO Work Phone: [facility] Start: 08-12-2024 End: 08-20-2024 Clinisync Result Encounter Osmany Jena DO Work Phone: [facility] Unsolicited Start: 08-03-2024 End: 08-03-2024 Orders Only Guerrero Johnson APRN-CNM Work Phone: [facility] Comment on above: Urinary tract infect ion in mother during , antepartum (Primary Dx) Start: 07-28-2024 End: 07-28-2024 ambulatory OSMANY JENA Not Available Start: 07-27-2024 End: 07-27-2024 ambulatory OSMANY R JENA [facility] Start: 07-16-2024 End: 07-16-2024 Office outpatient visit 5 minutes [facility] Jena Nurse [facility] Comment on above: GA: 21w2d Start: 07-16-2024 End: 07-16-2024 ambulatory OSMANY JENA Not Available Start: 07-12-2024 End: 07-12-2024 ambulatory XIAO CASTILLO [facility] Start: 07-06-2024 End: 07-06-2024 ambulatory OSMANY R JENA [facility] Start: 06-25-2024 End: 06-25-2024 Emergency department patient visit NO PCP NO PCP [facility] Start: 06-02-2024 End: 06-02-2024 Bamboo flowsheet Osmany [...] department patient visit NO PCP NO PCP [facility] Start: 03-15-2024 End: 03-15-2024 Emergency department patient visit NO PCP NO PCP [facility] Start: 12-10-2023 End: 12-10-2023 ambulatory OSMANY JENA Not Available Start: 12-06-2023 End: 12-06-2023 Subsequent care visit Amaya Cruz EXECUTIVE CANDIDATE DEVELOPER-ARCGIS DEVELOPER Work Phone: [facility] Comment on above: GA: 38w1d Start: 12-06-2023 End: 12-06-2023 ambulatory AMAYA CARVAJALPAMANJIT [facility] Start: 11-28-2023 End: 11-28-2023 [facility] Start: 11-27-2023 End: 11-27-2023 ambulatory NO PCP NO PCP [facility] Start: 11-27-2023 End: 11-27-2023 Subsequent care visit [facility] Comment on above: GA: 36w6d Start: 11-19-2023 End: 11-19-2023 Initial care visit Sally Newman EXECUTIVE CANDIDATE DEVELOPER-ARCGIS DEVELOPER Work Phone: [facility] Comment on above: GA: 35w5d Start: 11-19-2023 End: 11-19-2023 ambulatory SALLY Chago [facility] Start: 11-17-2023 End: 11-17-2023 ambulatory [facility] Start: 10-22-2023 End: 10-23-2023 Telephone encounter Maddison Singletonana maria RODRIGES Work Phone: [facility] Comment on above: RETURN TO WORK WITHO [employer] Start: 10-21-2023 End: 10-22-2023 ambulatory [facility] Start: 10-17-2023 End: 10-17-2023 ambulatory [facility] [address] [facility] Start: 10-10-2023 End: 10-10-2023 Subsequent care visit Mallika Logan Raúl EXECUTIVE CANDIDATE DEVELOPER-CNM Work Phone: [facility] Comment on above: GA: 30w0d Start: 10-10-2023 End: 10-10-2023 ambulatory [facility] Start: 09-18-2023 End: 09-18-2023 Emergency department patient visit NO PCP NO PCP [facility] Start: 09-12-2023 End: 09-12-2023 Subsequent care visit Mallika Conn EXECUTIVE CANDIDATE DEVELOPER-CNM Work Phone: [facility] Comment on above: GA: 26w0d Start: 09-12-2023 End: 09-12-2023 ambulatory [facility] Start: 09-04-2023 End: 09-04-2023 ambulatory [facility] Start: 09-02-2023 End: 09-02-2023 Telephone encounter Mallika Conn EXECUTIVE CANDIDATE DEVELOPER-CNM Work Phone: [facility] Start: 08-30-2023 End: 09-02-2023 Telephone encounter Javon Gupta MD Work Phone: [facility] Comment on above: Second trimester pre gnancy (Primary Dx); Late care in second trimester NEW PATIENT REFERRAL Start: 08-29-2023 End: 08-29-2023 Initial care visit Mallika Logan Raúl EXECUTIVE CANDIDATE DEVELOPER-CNM Work Phone: [facility] Comment on above: GA: 24w0d Start: 08-29-2023 End: 08-29-2023 ambulatory MALLIKAHER Logan CONN [facility] Start: 08-28-2023 End: 08-28-2023 ambulatory AMAYA CARVAJALPAMANJIT [facility] Start: 08-28-2023 End: 08-28-2023 Office outpatient visit 15 minutes [facility] Ob Practice Business Asst [facility] Comment on above: GA: 23w6d Start: 08-23-2023 End: 08-23-2023 ambulatory NO PCP NO PCP [facility] Start: 08-23-2023 End: 08-23-2023 Office outpatient new 30 minutes [facility] Instrument And Control Technician [facility] Comment on above: History of d elivery, currently (Primary Dx); History of twin in prior ; History of prior with short cervix, currently ; 23 weeks gestation of Start: 08-22-2023 End: 08-22-2023 Emergency department patient visit NO PCP NO PCP [facility] Start: 05-13-2023 Telephone encounter [facility] Work Phone: [facility] Start: 05-10-2023 Telephone encounter Zayra Navarrete RN [facility] Start: 12-03-2022 End: 12-04-2022 Emergency department patient visit [facility] Start: 11-16-2022 Patient encounter status Osmany Bella DO Work Phone: [facility] Start: 11-04-2022 End: 11-04-2022 Emergency department patient visit REINA FERMIN [facility] Start: 10-30-2022 End: 10-30-2022 Emergency department patient visit FELICIANO CARLTON [facility] Start: 09-13-[address] DOCTOR HOLT Facility :[facility] Start: 08-17-2022 End: 08-17-[address] DOCTOR HOLT Facility:[facility] Start: 11-14-2021 End: 11-14-2021 ambulatory Amaya Luu Other [facility] Other Start: 11-14-2021 Office outpatient ne w 30 minutes Amaya Luu [facility] Start: 10-30-2021 End: 10-31-[address] DOCTOR HOLT Facility:[facility] Start: 08-22-2020 End: 08-28-2023 Patient encounter status Zayra Navarrete RN [facility] Procedures Date Procedure Procedure Detail Performing Clinician Start: 09-02-2024 Urnls dip stick/tabl et rgnt non-auto w/o micrscp Osmany Jena DO Work Phone: Start: 09-02-2024 US OB CERVICAL LENGTH C orey Jena DO Work Phone: Start: 09-02-2024 US OB PLACENTA Osmany Fa zio DO Work Phone: Start: 09-02-2024 [facility] UA (CLEAN/CATCH) PSYCHIATRIC SECRETARY/MICRO IF IND. Osmany Jena DO Work Phone: Start: 08-12-2024 Urnls dip stick/tabl et rgnt non-auto w/o micrscp Osmany Jena DO Work Phone: Start: 08-12-2024 IGP,APTIMA HPV,AGE GDLN Osmany Jena DO Work Phone: Start: 08-03-2024 H/O: section Previous delivery affecting , antepartum Guerrero Johnson EXECUTIVE CANDIDATE DEVELOPER-CNM Work Phone: Start: 09-12-2023 Adult depression screening assessment Mallika Conn EXECUTIVE CANDIDATE DEVELOPER-CNM Work Phone: Start: 08-29-2023 Adult depression screening assessment Mallika Conn EXECUTIVE CANDIDATE DEVELOPER-CNM Work Phone: Start: 08-28-2023 Adult depression screening assessment [facility] 2 Start: 04-05-2023 Adult depression screening assessment Zayra Navarrete RN Plan of Treatment Date Care Activity Detail Author Start: 10-09-2033 DTaP,Tdap and Td Vaccines (8 - Td or Tdap) DTaP,Tdap and Td Vaccines (8 - Td or Tdap) [facility] Start: 08-03-2025 Adult BMI Screening Adult BMI Screen ing [facility] Start: 08-03-2025 Tobacco Screening Tobacco Screening [facility] Start: 05-15-2025 Screening for Chlamy spencer trachomatis Chlamydia Screening [facility] Start: 01-04-2025 Influenza vaccination Influenz a Vaccine (Season Ended) [facility] Start: 12-27-2024 DTaP,Tdap and Td Vaccines (7 - Td or Tdap) DTaP,Tdap and Td Vaccines (7 - Td or Tdap) [facility] Start: 12-05-2024 Adult BMI Screening Adult BMI Screen ing [facility] Start: 12-05-2024 Tobacco Screening Tobacco Screening [facility] Start: 11-26-2024 Adult BMI Screening Adult BMI Screen ing [facility] Start: 11-26-2024 Tobacco Screening Tobacco Screening [facility] Start: 11-18-2024 Adult BMI Screening Adult BMI Screen ing [facility] Start: 11-18-2024 Tobacco Screening Tobacco Screening [facility] Start: 11-16-2024 Screening for Chlamy spencer trachomatis Chlamydia Screening [facility] Start: 10-20-2024 Tobacco Screening Tobacco Screening [facility] Start: 10-16-2024 Screening for Chlamy spencer trachomatis Chlamydia Screening [facility] Start: 10-09-2024 Adult BMI Screening Adult BMI Screen ing [facility] Start: 10-09-2024 Tobacco Screening Tobacco Screening [facility] Start: 09-16-2024 End: 09-16-2024 Patient encounter procedure 09/16/2024 9:00 AM EDT Routine [facility] [address] [place] [id number] Estephania Murphy, SCAN COORDINATOR [address] [place] [id number] [facility] Start: 09-11-2024 Adult BMI Screening Adult BMI Screen ing [facility] Start: 09-11-2024 Depression Screening Depression Scre ening [facility] Start: 09-11-2024 Tobacco Screening Tobacco Screening [facility] Start: 09-02-2024 End: 09-02-2024 Patient encounter procedure 09/02/2024 2:40 PM EDT Routine [facility] [address] [place] [address] Osmany Bella, DO [address], [place] [id number] [facility] Start: 08-28-2024 Adult BMI Screening Adult BMI Screen ing [facility] Start: 08-28-2024 Depression Screening Depression Scre [facility]ing [facility] [facility] Start: 08-28-2024 Screening for Chlamy spencer trachomatis Chlamydia Screening [facility] Start: 08-28-2024 Tobacco Screening Tobacco Screening [facility] Start: 08-27-2024 Adult BMI Screening Adult BMI Screen ing [facility] Start: 08-27-2024 Depression Screening Depression Scre ening [facility] Start: 08-27-2024 Tobacco Screening Tobacco Screening [facility] Start: 08-22-2024 Adult BMI Screening Adult BMI Screen ing [facility] Start: 08-22-2024 Tobacco Screening Tobacco Screening [facility] Start: 08-12-2024 End: 08-12-2024 Patient encounter procedure 08/12/2024 2:50 PM EDT Routine [facility] [address] [facility] [place] [id number] Osmany Bella, DO [address], [place] [id number] [facility] Start: 08-12-2024 End: 08-12-2025 ABO/Rh ABO/Rh Lab Routine Missed menses , unspecified gestational age Expected: 08/12/2024 (Approximate), Expires: 08/12/2025 [facility] Comment on above: Expected: 08/12/2024 (Approximate), [...] mellitus screening Expected: 08/12/2024 (Approximate), Expires: 08/12/2025 [facility] Comment on above: Expected: 08/12/2024 (Approximate), Expires: 08/12/2025 Start: 08-12-2024 End: 08-12-2025 Measurement of glucose 1 hour after glucose challenge for glucose tolerance test Glucose tolerance, 1 hour Lab Routine Diabetes mellitus screening Expected: 08/12/2024 (Approximate), Expires: 08/12/2025 [facility] Comment on above: Expected: 08/12/2024 (Approximate), Expires: 08/12/2025 Start: 07-28-2024 End: 07-28-2024 Professional / ancillary services management 07/28/2024 2:30 PM EDT Ancillary Procedure [facility] [address] [place] [address] [place] [id number] [facility] Start: 07-16-2024 End: 07-16-2025 ABO/Rh ABO/Rh Lab Routine Missed menses , unspecified gestational age Expected: 07/16/2024 (Approximate), Expires: 07/16/2025 [facility] Comment on above: Expected: 07/16/2024 (Approximate), Expires: 07/16/2025 Start: 07-16-2024 End: 08-16-2024 Alpha fetoprotein, maternal Alpha fetoprotein, maternal Lab Routine Second trimester 21 weeks gestation of Expected: 07/16/2024 (Approximate), Expires: 08/16/2024 [facility] Comment on above: Expected: 07/16/2024 (Approximate), Expires: 08/16/2024 Start: 07-16-2024 End: 07-16-2025 Blood type and Indirect antibody screen panel - Blood Type and screen Lab Routine Missed menses , unspecified gestational age Expected: 07/16/2024 (Approximate), Expires: 07/16/2025 [facility] Work Phone: Comment on above: Expected: 07/16/2024 (Approximate), Expires: 07/16/2025 Start: 07-16-2024 End: 07-16-2025 Drugs of abuse panel - Urine by Screen method Rapid drug screen, urine Lab Routine , unspecified gestational age Encounter for supervision of normal first in first trimester Expected: 07/16/2024 (Approximate), Expires: 07/16/2025 [facility] Comment on above: Expected: 07/16/2024 (Approximate), Expires: 07/16/2025 Start: 07-16-2024 End: 07-16-2025 US for US OB 14+ weeks anatomy scan Imaging Routine Screening, , for anatomic survey Expected: 07/16/2024, Expires: 07/16/2025 [facility] Comment on above: Expected: 07/16/2024 , Expires: 07/16/2025 Start: 06-19-2024 End: 06-19-2024 ambulatory 06/19/2024 10:30 AM EST Initial [facility] [address] [place] [id number] [facility] Start: 06-19-2024 End: 06-19-2024 Professional / ancillary services management 06/19/2024 10:00 AM EST Ancillary Procedure [facility] [address] [place] [id number] [facility] Start: 04-05-2024 Adult BMI Screening Adult BMI Screen [facility] Start: 04-05-2024 Depression Screening Depression Scre ening [facility] Start: 04-05-2024 Tobacco Screening Tobacco Screening [facility] Start: 01-25-2024 Screening for Chlamy spencer trachomatis Chlamydia Screening [facility] Start: 01-05-2024 COVID-19 Vaccine ( season) COVID-19 Vaccine () [facility] Start: 01-05-2024 Influenza vaccination Influenza Vacc ine [facility] Start: 12-06-2023 End: 12-06-2023 Patient encounter procedure 12/06/2023 1:00 PM EDT Routine [facility] [address] [place] [phone] Amaya Cruz, EXECUTIVE CANDIDATE DEVELOPER-ARCGIS DEVELOPER [address] [facility] [address] [place] [address] [facility] Start: 11-27-2023 End: 11-27-2023 Patient encounter procedure 11/27/2023 11:00 AM EDT Routine [facility] [address] [place] [phone] [facility] Start: 10-24-2023 End: 10-24-2023 Patient encounter procedure 10/24/2023 2:45 PM EDT Routine [facility] [address] [place] [address] Mallika Conn, EXECUTIVE CANDIDATE DEVELOPER-CNM [address], [address] [place] [address] [facility] Start: 10-10-2023 End: 10-10-2023 Patient encounter procedure 10/10/2023 3:30 PM EDT Routine [facility] [address] [place] [address] Mallika Conn, EXECUTIVE CANDIDATE DEVELOPER-CNM [address] [facility] [address] [place] [address] [facility] Start: 09-26-2023 End: 09-26-2023 Patient encounter procedure 09/26/2023 3:00 PM EDT Office Visit [facility] [address] [facility] [address] [place] [phone] Sabiha Dior, EXECUTIVE CANDIDATE DEVELOPER-ARCGIS DEVELOPER [address] [facility], [address] [place] [address] [facility] Start: 09-12-2023 End: 09-12-2023 Patient encounter procedure 09/12/2023 3:30 PM EDT Routine [facility] [address] [facility] [address] [place] [phone] Mallika Conn, EXECUTIVE CANDIDATE DEVELOPER-CNM [address] [facility] [address] [place] [address] [facility] Start: 09-09-2023 End: 09-09-2023 Patient encounter procedure 09/09/2023 2:45 PM EDT Office Visit [facility] [address] [place] [phone] Sha Bright PA [address] [place] [address] [facility] Start: 09-09-2023 Screening for malign ant neoplasm of cervix Pap Smear [facility] Start: 09-04-2023 End: 09-04-2023 ambulatory 09/04/2023 3:45 PM EDT Initial [facility] [address] [facility] [address] [place] [address] Mallika Conn, EXECUTIVE CANDIDATE DEVELOPER-CNM [address] [place] [address] [facility] Start: 09-04-2023 End: 09-04-2023 Patient encounter procedure 09/04/2023 8:15 AM EDT Appointment [facility] [address] [facility] [address] [place] [address] [facility] Start: 08-28-2023 End: 08-28-2023 ambulatory 08/28/2023 1:00 PM EDT Initial [facility] [address] [facility] [address] [place] [address] [facility] Start: 08-28-2023 End: 08-28-2023 Patient encounter procedure 08/28/2023 12:30 PM EDT Appointment [facility] [address] [facility] [place] [address] [facility] Start: 08-23-2023 End: 08-22-2024 US for in second or third trimester Ultrasound greater than 14 weeks single transabdominal Imaging Routine History of delivery, currently History of twin in prior History of prior with short cervix, currently Expected: 08/23/2023, Expires: 08/22/2024 [facility] Comment on above: Expected: 08/23/2023 , Expires: 08/22/2024 Start: 08-23-2023 End: 08-22-2024 US MFM with or without consult US MFM with or without consult Imaging Routine History of delivery, currently History of twin in prior History of prior with short cervix, currently Expected: 08/23/2023, Expires: 08/22/2024 [facility] Work Phone: Comment on above: Expected: 08/23/2023 , Expires: 08/22/2024 Start: 01-04-2023 COVID-19 Vaccine () COVID-19 Vaccine ( season) [facility] Start: 01-04-2023 Influenza vaccination Influenza Vacc ine [facility] Start: 2020 Adult BMI Follow Up Plan Adult BMI Follow Up Plan [facility] End: 08-28-2024 Bacteria identified in Urine by Culture Urine Culture Microbiology Routine Second trimester Late care affecting in second trimester 1 Occurrences starting 08/29/2023 until 08/28/2024 [facility] Comment on above: 1 Occurrences starti ng 08/29/2023 until 08/28/2024 Bacteria identified in Urine by Culture Urine Culture Microbiology Routine Second trimester Late care affecting in second trimester 08/29/2023 9:47 PM EDT [facility] Bacteria identified in Urine by Culture Urine culture Microbiology Routine Missed menses Ordered: 07/16/2024 [facility] Comment on above: Ordered: 07/16/2024 End: 08-27-2024 Carrier Study Non-[facility] Carrier Study Non-[facility] Lab Routine Screening for genetic disease carrier status 1 Occurrences starting 08/28/2023 until 08/27/2024 [facility] Comment on above: 1 Occurrences starti ng 08/28/2023 until 08/27/2024 End: 08-25-2024 CBC W Auto Differential panel - Blood CBC auto differential Lab Routine care, subsequent , second trimester Short interval between pregnancies affecting in second trimester, antepartum 1 Occurrences starting 08/28/2023 until 08/25/2024 [facility] Work Phone: Comment on above: 1 Occurrences starti ng 08/28/2023 until 08/25/2024 CBC W Auto Different ial panel - Blood CBC and differential Lab Routine Missed menses , unspecified gestational age Ordered: 07/16/2024 [facility] Comment on above: Ordered: 07/16/2024 CHLAMYDIA TRACHOMATI S (GENITO/STI) CHLAMYDIA TRACHOMATIS (GENITO/STI) Lab Routine STD exposure Ordered: 08/12/2024 [facility] Comment on above: Ordered: 08/12/2024 End: 08-28-2024 Chlamydia/GC by PCR Dany Swab Chlamydia/GC by PCR [facility] Microbiology Routine Screen for STD (sexually transmitted disease) Second trimester Late care affecting in second trimester 1 Occurrences starting 08/29/2023 until 08/28/2024 [employer] Work Phone: Comment on above: 1 Occurrences starti ng 08/29/2023 until 08/28/2024 Chlamydia/GC by PCR Dany Swab Chlamydia/GC by PCR [facility] Sw[facility] Microbiology Routine Screen for STD (sexually transmitted disease) Second trimester Late care affecting in second trimester 08/29/2023 9:49 PM EDT [facility] Cervical or vaginal smear or scraping study Pap Smear Pathology and Cytology Routine Well woman exam with routine gynecological exam Ordered: 08/12/2024 [facility] [employer] Work Phone: Comment on above: Ordered: 08/12/2024 End: 08-28-2024 ECG 12 lead ECG 12 lead ECG Routine Late care affecting in second trimester Chest pain, unspecified type Heart palpitations 1 Occurrences starting 08/29/2023 until 08/28/2024 [facility] Comment on above: 1 Occurrences starti ng 08/29/2023 until 08/28/2024 End: 08-29-2024 Glucose 1h post 50g load Glucose 1h post 50g load Lab Routine Second trimester Late care in second trimester 1 Occurrences starting 08/30/2023 until 08/29/2024 [employer] Work Phone: Comment on above: 1 Occurrences starti ng 08/30/2023 until 08/29/2024 End: 08-28-2024 Glucose Tolerance, Fasting Glucose Tolerance, Fasting Lab Routine Second trimester Late care affecting in second trimester 1 Occurrences starting 08/29/2023 until 08/28/2024 [facility] Comment on above: 1 Occurrences starti ng 08/29/2023 until 08/28/2024 End: 08-28-2024 Glucose, 2 hour Post 75gm load Glucose, 2 hour Post 75gm load Lab Routine Second trimester Late care affecting in second trimester 1 Occurrences starting 08/29/2023 until 08/28/2024 [facility] Comment on above: 1 Occurrences starti ng 08/29/2023 until 08/28/2024 Hemoglobin A1c/Hemoglobin.total in Blood Hemoglobin A1c Lab Routine Missed menses , unspecified gestational age Ordered: 07/16/2024 [facility] Comment on above: Ordered: 07/16/2024 End: 08-25-2024 Hepatitis B surface antigen Hepatitis B surface antigen Lab Routine care, subsequent , second trimester Short interval between pregnancies affecting in second trimester, antepartum 1 Occurrences starting 08/28/2023 until 08/25/2024 [facility] Comment on above: 1 Occurrences starti ng 08/28/2023 until 08/25/2024 Hepatitis B virus surface Ag [Presence] in Serum or Plasma by Immunoassay Hepatitis B surface antigen Lab Routine Missed menses , unspecified gestational age Ordered: 07/16/2024 [facility] Comment on above: Ordered: 07/16/2024 Hepatitis C virus Ab [Presence] in Serum or Plasma by Immunoassay Hepatitis C antibody Lab Routine Missed menses , unspecified gestational age Ordered: 07/16/2024 [facility] Comment on above: Ordered: 07/16/2024 End: 08-25-2024 Hepatitis C(HCV) Ab w/ Reflex to PCR Hepatitis C(HCV) Ab w/ Reflex to PCR Lab Routine care, subsequent , second trimester Short interval between pregnancies affecting in second trimester, antepartum 1 Occurrences starting 08/28/2023 until 08/25/2024 [facility] Comment on above: 1 Occurrences starti ng 08/28/2023 until 08/25/2024 End: 08-25-2024 HIV 1&2 AB/AG Screen (P24 AG) HIV 1&2 AB/AG Screen (P24 AG) Lab Routine care, subsequent , second trimester Short interval between pregnancies affecting in second trimester, antepartum 1 Occurrences starting 08/28/2023 until 08/25/2024 [facility] Comment on above: 1 Occurrences starti ng 08/28/2023 until 08/25/2024 HIV-1/HIV-2 antigen/antibody combination immunoassay HIV-1 and HIV-2 antibodies Lab Routine Missed menses , unspecified gestational age Ordered: 07/16/2024 [facility] Comment on above: Ordered: 07/16/2024 HIV-1/HIV-2 antigen/antibody combination immunoassay HIV-1 and HIV-2 antibodies Lab Routine Missed menses , unspecified gestational age Ordered: 08/12/2024 [facility] Comment on above: Ordered: 08/12/2024 Neisseria gonorrhoea e DNA [Presence] in Unspecified specimen by BI with probe detection Neisseria gonorrhea DNA probe, direct Lab Routine STD exposure Ordered: 08/12/2024 [facility] Comment on above: Ordered: 08/12/2024 End: 08-27-2024 [facility] Lab Routine Encounter for screening for other genetic defects 1 Occurrences starting 08/28/2023 until 08/27/2024 [facility] Comment on above: 1 Occurrences starti ng 08/28/2023 until 08/27/2024 Reagin Ab [Presence] in Serum by RPR RPR Lab Routine Missed menses , unspecified gestational age Ordered: 07/16/2024 [facility] Comment on above: Ordered: 07/16/2024 Rubella antibody, IgG Rubella an tibody, IgG Lab Routine Missed menses , unspecified gestational age Ordered: 07/16/2024 [facility] Comment on above: Ordered: 07/16/2024 End: 08-25-2024 Rubella IGG immune status Rubella IGG immune status Lab Routine care, subsequent , second trimester Short interval between pregnancies affecting in second trimester, antepartum 1 Occurrences starting 08/28/2023 until 08/25/2024 [facility] Comment on above: 1 Occurrences starti ng 08/28/2023 until 08/25/2024 End: 08-27-2024 Sickle solubility Sickle solubility Lab Routine care, subsequent , second trimester 1 Occurrences starting 08/28/2023 until 08/27/2024 [facility] Comment on above: 1 Occurrences starti ng 08/28/2023 until 08/27/2024 SURESWAB(R) ADVANCED VAGINITIS PLUS, TMA SURESWAB(R) ADVANCED VAGINITIS PLUS, TMA Pathology and Cytology Routine Vaginal discharge Ordered: 08/12/2024 [facility] Comment on above: Ordered: 08/12/2024 End: 08-25-2024 Syphilis Total(Unknown Syphilis Status) Syphilis Total(Unknown Syphilis Status) Lab Routine care, subsequent , second trimester Short interval between pregnancies affecting in second trimester, antepartum 1 Occurrences starting 08/28/2023 until 08/25/2024 [facility] Comment on above: 1 Occurrences starti ng 08/28/2023 until 08/25/2024 Thyrotropin [Units/volume] in Serum or Plasma TSH Lab Routine Abnormal TSH Ordered: 07/16/2024 [facility] Comment on above: Ordered: 07/16/2024 End: 08-25-2024 Type and screen Type and screen Blood Bank Routine care, subsequent , second trimester Short interval between pregnancies affecting in second trimester, antepartum 1 Occurrences starting 08/28/2023 until 08/25/2024 [facility] Comment on above: 1 Occurrences starti ng 08/28/2023 until 08/25/2024 End: 08-28-2024 Vaginitis Panel PCR Vaginitis Panel PCR Microbiology Routine Screen for STD (sexually transmitted disease) Second trimester Late care affecting in second trimester 1 Occurrences starting 08/29/2023 until 08/28/2024 [facility] Comment on above: 1 Occurrences starti ng 08/29/2023 until 08/28/2024 Vaginitis Panel PCR Vaginitis Pa arnie PCR Microbiology Routine Screen for STD (sexually transmitted disease) Second trimester Late care affecting in second trimester 08/29/2023 9:49 PM EDT [facility] End: 08-25-2024 Varicella zoster antibody, IgG Varicella zoster antibody, IgG Lab Routine care, subsequent , second trimester Short interval between pregnancies affecting in second trimester, antepartum 1 Occurrences starting 08/28/2023 until 08/25/2024 [facility] Comment on above: 1 Occurrences starti ng 08/28/2023 until 08/25/2024 Immunizations Immunization Date Immunization Notes Care Provider Fa cili 10-10-2023 diphtheria, tetanus toxoids and acellular pertussis vaccine, unspecified formulation Mallika DANIELS Work Phone: [facility] 10-10-2023 tetanus toxoid, redu libby diphtheria toxoid, and acellular pertussis vaccine, adsorbed Mallika DANIELS Work Phone: [facility] 10-10-2023 Immunization, In Cli aletha,; Translations: [Drug or medicament (substance)] Mallika DANIELS Work Phone: [facility] 03-12-2019 influenza, injectabl e, quadrivalent, preservative free Zayra Navarrete RN [facility] 03-12-2019 influenza virus vacc ine, unspecified formulation Zayra Navarrete RN [facility] 12-28-2016 Human Papillomavirus 9-valent vaccine Mallika Raúl RIVASN-CN Work Phone: [facility] 12-28-2016 meningococcal oligosaccharide (groups A, C, Y and W-135) diphtheria toxoid conjugate vaccine (MCV4O) Mallika Conn EXECUTIVE CANDIDATE DEVELOPER-CNM Work Phone: [facility] 12-27-2014 tetanus toxoid, redu libby diphtheria toxoid, and acellular pertussis vaccine, adsorbed Mallikaher Conn EXECUTIVE CANDIDATE DEVELOPER-CNM Work Phone: [facility] 03-13-2007 influenza, seasonal, injectable Mallika Conn APRN-CNM Work Phone: [facility] 12-04-2006 diphtheria, tetanus toxoids and acellular pertussis vaccine Mallika Conn APRN-CNM Work Phone: [facility] 12-04-2006 measles, mumps and rubella virus vaccine Mallika Conn EXECUTIVE CANDIDATE DEVELOPER-CNM Work Phone: [facility] 12-04-2006 poliovirus vaccine, inactivated Mallika Conn EXECUTIVE CANDIDATE DEVELOPER-CNM Work Phone: [facility] 02-25-2006 influenza, seasonal, injectable Mallika Conn APRN-CNM Work Phone: [facility] 10-19-2003 diphtheria, tetanus toxoids and acellular pertussis vaccine, unspecified formulation Mallika Conn APRN-CNM Work Phone: [facility] 10-19-2003 haemophilus influenz ae type b vaccine, conjugate unspecified formulation Mallika Conn APRN-CNM Work Phone: [facility] 10-19-2003 hepatitis B vaccine, pediatric or pediatric/adolescent dosage Mallika Conn APRN-CNM Work Phone: [facility] 10-19-2003 measles, mumps and rubella virus vaccine Mallika Conn EXECUTIVE CANDIDATE DEVELOPER-CNM Work Phone: [facility] 05-25-2003 diphtheria, tetanus toxoids and acellular pertussis vaccine, unspecified formulation Mallika Conn EXECUTIVE CANDIDATE DEVELOPER-CNM Work Phone: [facility] 05-25-2003 haemophilus influenz ae type b vaccine, conjugate unspecified formulation Mallika Conn EXECUTIVE CANDIDATE DEVELOPER-CNM Work Phone: [facility] 05-25-2003 hepatitis B vaccine, pediatric or pediatric/adolescent dosage Mallikaher Conn EXECUTIVE CANDIDATE DEVELOPER-CNM Work Phone: [facility] 05-25-2003 pneumococcal conjuga te vaccine, 7 valent Mallika Raúl EXECUTIVE CANDIDATE DEVELOPER-CNM Work Phone: [facility] 05-25-2003 poliovirus vaccine, unspecified formulation Mallika Raúl EXECUTIVE CANDIDATE DEVELOPER-CNM Work Phone: [facility] 02-24-2003 diphtheria, tetanus toxoids and acellular pertussis vaccine, unspecified formulation Mallika Conn EXECUTIVE CANDIDATE DEVELOPER-CNM Work Phone: [facility] 02-24-2003 haemophilus influenz ae type b vaccine, conjugate unspecified formulation Mallika Conn EXECUTIVE CANDIDATE DEVELOPER-CNM Work Phone: [facility] 02-24-2003 pneumococcal conjuga te vaccine, 7 valent Mallika Raúl EXECUTIVE CANDIDATE DEVELOPER-CNM Work Phone: [facility] 02-24-2003 poliovirus vaccine, unspecified formulation Mallika Conn EXECUTIVE CANDIDATE DEVELOPER-CNM Work Phone: [facility] 2002 diphtheria, tetanus toxoids and acellular pertussis vaccine, unspecified formulation Mallika Conn EXECUTIVE CANDIDATE DEVELOPER-CNM Work Phone: [facility] 2002 haemophilus influenz ae type b vaccine, conjugate unspecified formulation Mallika Conn EXECUTIVE CANDIDATE DEVELOPER-CNM Work Phone: [facility] 2002 hepatitis B vaccine, pediatric or pediatric/adolescent dosage Mallika Conn EXECUTIVE CANDIDATE DEVELOPER-CNM Work Phone: [facility] 2002 pneumococcal conjuga te vaccine, 7 valent Mallika Conn EXECUTIVE CANDIDATE DEVELOPER-CNM Work Phone: [facility] 2002 poliovirus vaccine, unspecified formulation Mallika Conn EXECUTIVE CANDIDATE DEVELOPER-CNM Work Phone: [facility] [facility] Payers Date Payer Category Payer Medicaid [id number] 15 2023 Medicaid [id number] 2002 Unknown [id number] 2.16.84 0.1.375655.3.579.2.593 2002 Unknown [id number] 2.16.84 0.1.136080.3.579.2.593 2002 Unknown [id number] 2.16.84 0.1.180985.3.579.2.593 2002 Unknown [id number] 2.16.8 40.1.798197.3.579.2.173 2002 Unknown [id number] 2.16.8 40.1.784238.3.579.2.173 2002 Unknown [id number] 2.16.8 40.1.663141.3.579.2.173 2002 Unknown [id number] 2.16.8 40.1.583658.3.579.2.1286 2002 Unknown [id number] 2.16.8 40.1.700382.3.579.2.1286 2002 Unknown [id number] 2.16.8 40.1.022018.3.579.2.1286 2002 Unknown [id number] 2.16.8 40.1.234834.3.579.2.1286 2002 Unknown [id number] 2.16.8 40.1.192687.3.579.2.1285 2002 Unknown [id number] 2.16.8 40.1.253210.3.579.2.1285 2002 Unknown [id number] 2.16.8 40.1.755228.3.579.2.1285 2002 Unknown [id number] 2.16.8 40.1.207507.3.579.2.1285 2002 Unknown [id number] 2.16.8 40.1.232884.3.579.2.1285 2002 Unknown [id number] 2.16.8 40.1.963973.3.579.2.1285 2002 Unknown [id number] 2.16.8 40.1.154266.3.579.2.1285 2002 Unknown [id number] 2.16.8 40.1.591475.3.579.2.1285 2002 Unknown [id number] 2.16.84 0.1.547275.3.579.2.1258 2002 Unknown [id number] 2.16.84 0.1.701232.3.579.2.1258 2002 Unknown [id number] 2.16.84 0.1.244374.3.579.2.1258 2002 Unknown [id number] 2.16.84 0.1.720550.3.579.2.1258 2002 Unknown [id number] 2.16.84 0.1.098328.3.579.2.1258 2002 Unknown [id number] 2.16.84 0.1.397721.3.579.2.1258 2002 Unknown [id number] 2.16. 840.1.505036.3.579.2.1285 2002 Unknown [id number] 2.16. 840.1.463148.3.579.2.1285 2002 Unknown [id number] 2.16. 840.1.023931.3.579.2.1285 2002 Unknown [id number] 2.16. 840.1.457970.3.579.2.1285 2002 Unknown [id number] 2.16. 840.1.914236.3.579.2.1285 2002 Unknown [id number] 2.16. 840.1.923901.3.579.2.1285 2002 Unknown [id number] 2.16. 840.1.522520.3.579.2.1285 2002 Unknown [id number] 2.16. 840.1.590896.3.579.2.1285 2002 Unknown [id number] 2.16.8 40.1.799549.3.579.2.1285 2002 Unknown [id number] 2.16.8 40.1.406824.3.579.2.1285 2002 Unknown [id number] 2.16.8 40.1.362014.3.579.2.1285 2002 Unknown [id number] 2.16.8 40.1.175668.3.579.2.1285 2002 Unknown [id number] 2.16.8 40.1.631424.3.579.2.1285 2002 Unknown [id number] 2.16.8 40.1.545943.3.579.2.1285 2002 Unknown [id number] 2.16. 840.1.480351.3.579.2.1285 2002 Unknown [id number] 2.16. 840.1.139418.3.579.2.1285 2002 Unknown [id number] 2.16. 840.1.103756.3.579.2.1285 2002 Unknown [id number] 2.16. 840.1.195762.3.579.2.1285 2002 Unknown [id number] 2.16. 840.1.354759.3.579.2.1286 1957 [place] [id number] 2.16.840.1.317768.19 Social History Date Type Detail Facility Start: 03-26-2021 End: 08-03-2024 Sex Assigned At [facility] Tobacco smoking stat [facility] Tobacco smoking consumption unknown [facility] Start: 2002 Sex assigned at Not on file [facility] Start: 06-23-2022 Tobacco smoking status MIIS Never smoked tobacco [facility] Start: 06-23-2022 Tobacco use and exposure Smokeless tobacco non-user [facility] Start: 08-23-2023 End: 08-03-2024 Alcoholic beverage intake Ex-drinker (finding) [facility] Start: 03-26-2021 End: 08-03-2024 History of Social function [facility] Do you belong to any clubs or organizations such as bahai groups, unions, fraternal or athletic groups, or school groups? No [facility] How often do you att end meetings of the clubs or organizations you belong to? Patient declined [facility] Are you now , , , , never or living with a partner? Living with partner [facility] How often to you hav e a drink containing alcohol? Never [facility] How hard is it for y ou to pay for the very basics like food, housing, medical care, and heating Somewhat hard [facility] Do you feel stress - tense, restless, nervous, or anxious, or unable to sleep at night because your mind is troubled all the time - these days [OSQ] To some extent [facility] Start: 03-26-2021 Education 12 [facility] Start: 03-28-2023 [facility] Start: 03-15-2024 Alcohol Comment occasionally [facility] Start: 12-09-2014 Sex Female (finding) [facility] Goals Date Patient Goal Desired Activity /State [...] a mean way. Clinical Notes 11-14-2021 to 09-02-2024 Helena Rea LPN - 09/02/2024 2:40 PM EDReji Rea, ANTELMO - 08/12/2024 2:50 PM Manish Johnson APRNPUJA - 08/03/2024 12:15 PM Tasha Olsen LPN - 07/16/2024 8:30 AM EDTPatient Instructions Note Date & Type Note Facility 09-02-2024 History of Present illness Narrative Reason for Appointment: Patient ID: Laura Pond is a 23 y.o. female who presents for Routine Visit Patient presents today for Return OB appointment. MEDICATIONS Current Outpatient Medications [...] History HISTORY PAST MEDICAL HISTORY SOCIAL HISTORY History reviewed. No pertinent past medical history. Social History Tobacco Use Smoking status: Not [...] nursing note reviewed. Exam conducted with a water taxi driver present. Vitals: There is no height or weight on file to calculate BMI. BP: 106/58 No LMP recorded. Patient is . ASSESSMENT & PLAN ICD-10-CM 1. 28 weeks gestation of Z3A.28 POCT urinalysis dipstick manually resulted Return OB: Patient presents today for a routine obstetrics appointment. Patient is currently 28w1d . Patient states she is doing well but has complaints of being tired due to current . Patient has verbalizes frequent movement. labor precautions was discussed/given and patient was instructed to perform kick counts three times a day. Pt having to work 13- 13 hour shifts this months. Too much for pt during . Pt to only work 2- 12 hour shifts and 3- 6 hour shifts with a total of 42 hour work week. Orders Placed This Encounter Procedures POCT urinalysis dipstick manually resulted Follow Up: Patient is to return to office in 2 week for routine OB appointment. Documented by Helena Rea LPN on behalf of: Osmany Bella DO documented in this encounter [facility] 08-12-2024 History of Present illness Narrative Reason for Appointment: Patient ID: Laura Pond is a 23 y.o. female who [...] nursing note reviewed. Exam conducted with a water taxi driver present. Vitals: There is no height or [...] Osmany Bella DO documented in this encounter [facility] 08-03-2024 History of Present illness Narrative While in triage pt. Advised of Rx. For keflex for presumed UTI. Rx. For keflex sent. Urine culture pending and pt. Advised she may be advised to stop the Rx. If comes back negative. Pt. Verbalized understanding. FRANCES Littlejohn 08/03/24 1218 documented in this encounter [facility] 07-16-2024 History of Present illness Narrative Reason for Appointment: Patient ID: Laura Pond is a 23 y.o. female who [...] lb 11 oz F Vag-Spont ANDREINA 3A 02/03/23 25w2d 08:45 1 lb 13.5 oz M Vag-Spont None Y ANDREINA Complications: infant of 25 completed weeks of gestation 3B 02/03/23 25w2d 08:45 / 00:05 1 lb 13.5 oz M Vag-Spont None Y ANDREINA Complications: of 25 completed weeks of gestation 2 2020 Comments: very early 1st trimester Complications: Failure to Progress in Second Stage 1 2019 Comments: very early 1st trimester Current [...] or undercooked meat, and stay away from [facility]. Patient has also been advised to [...] Kimi Olsen LPN documented in this encounter [facility] 06-02-2024 History of Present illness Narrative Reason for Appointment: Patient ID: Laura Pond is a 23 y.o. female who presents for ER Follow-up (Pt was at [facility] on 05/15/2024 for vaginal bleeding. Pt [...] nursing note reviewed. Exam conducted with a water taxi driver present. Vitals: There is no height or [...] Osmany Bella DO documented in this encounter [facility] 12-06-2023 History of Present illness Narrative Routine OB visit SUBJECTIVE Laura Pond is a 23 y.o. at 38w1d by 19 wk US She denies regular contractions or abdominal pain (+) cramping, especially in the morning She denies vaginal bleeding, vaginal discharge, or loss of fluid. movement: present Other questions or concerns today: Pt was at [facility] yesterday with kidney stones. Planning to see urology as outpatient. Pt reports history of chronic headache, no AVALOS today, no visual changes or abd pain Pt has appt with Dr. Bella early next week. She is transferring her care and planning to deliver at [place]. OBJECTIVE Current Medications: Current Outpatient Medications: acetaminophen [...] Results Component Value Date GLUF 71 08/30/2023 [id number] 115 (L) 08/30/2023 Physical Exam: General: Patient [...] care 4. Hx of delivery, currently Continue [facility] Reviewed warning signs including: Decreased movement Vaginal bleeding or fluid leaking Regular painful contractions Severe headache, not relieved with Tylenol Vision changes such as blurring or seeing floaters Right upper abdominal pain Sudden increase in swelling She was instructed to go to [facility] for evaluation if she experiences any of these symptoms. Keep appt with Dr. Bella 12/10/23 WILMER Stoll 12/06/23 8292 documented in this encounter [email or web address] 11-28-2023 Miscellaneous Notes Received breast pump orders from [employer]. Per the patient she would like the [employer] prescription signed. Sally Newman CNP signed the [employer] prescription. I put a note on the [employer] request stating the patient chose a different company & faxed it back. documented in this encounter [email or web address] 11-28-2023 Telephone encounter Note Received breast pump orders from [employer]. Per the patient she would like the [employer] prescription signed. Sally Newman CNP signed the [employer] prescription. I put a note on the [employer] request stating the patient chose a different company & faxed it back. [facility] History of Present illness Narrative Routine OB Visit 23 y.o. at 36w6d. Positive movement. No regular contractions, vaginal bleeding or leaking of fluid. [facility] Saturday for contractions and back pain. [...] constipation Episode of recurrent major depressive disorder ([facility]) Intractable chronic migraine without aura Hx of [...] to breastfeed Patient has a breast pump Launch Engineer: Kadeem 6. Educational information given 7. Questions answered 8. Follow up 1 week Sally Newman APRN-FLOYD 11/27/23 1136 Pt went to [facility] on 11-21 for pain. Pt also states she is transferring to Dr Bella on 12-04 when her insurance changes and plans on delivering at [place]. documented in this encounter [facility] 11-27-2023 Instructions WILMRE Berumen - 11/27/2023 11:00 AM EDT The [...] be sent through Care Everywhere.Deciding to breastfeed (Ugandan)documented in this encounter [facility] 11-19-2023 History of Present illness Narrative Initial [...] when/how to notify provider. Reviewed CNM / ARCGIS DEVELOPER care, collaboration & referral to PRECISION LENS GENERATOR as needed. Reviewed course of care. exam complete. Discussed CDC recommendation for exclusive for the first 6 months. Patient has been covid vaccinated. Discussed recommendations in . Patient is taking a vitamin. All questions answered. Educational materials provided. RTC one week for visit. WILMER Berumen 11/19/23 1053 documented in this encounter [facility] 10-22-2023 Miscellaneous Notes Laura called asking for a letter to Return to Work without restrictions from [facility] for her employer, [employer]. Laura states, Last , 10/16 I left work [...] my employer needs a note faxed from [facility] that I am OK to return to work without restrictions. Advised Mallika's out of the office today, but a message will be sent so she may address tomorrow afternoon upon her return. Laura verbalized understanding. Staff to notify patient of [...] to the fax that pt provided at [phone] documented in this encounter [email or web address] 10-22-2023 Telephone encounter Note Laura called asking for a letter to Return to Work without restrictions from [employer] for her employer, [employer]. Laura states, Last , 10/16 I left work [...] may address tomorrow afternoon upon her return. Laura verbalized understanding. [email or web address] Work Phone: 10-22-2023 Telephone encounter Note Staff [...] to keep her energy up when working. [facility] 10-22-2023 Telephone encounter Note Spoke with pt, sent return work note to the fax that pt provided at [phone] [facility] 10-10-2023 History of Present illness Narrative Patient here for routine OB visit. Denies any vaginal bleeding or leaking. She states that she has been having cramping for the last few days. Small trace of Leukocytes in urine Subjective Laura Pond is a 23 y.o. female being [...] paper. They do not currently have a senior compensation consultant. The person planning to adopt the baby is looking for a senior compensation consultant. Laura is agreeable to referral to social work [...] carrier Episode of recurrent major depressive disorder ([facility]) History of delivery Hx of thyroid disease [...] up in 2 Weeks. FRANCES Ward 10/10/23 7417 documented in this encounter [email or web address] 09-12-2023 History of Present illness Narrative Patient here for routine OB visit. Denies any vaginal bleeding, leaking, or cramping. Subjective Laura Pond is a 23 y.o. female being [...] carrier Episode of recurrent major depressive disorder ([facility]) History of delivery Hx of thyroid disease [...] Ward 09/12/23 1618 documented in this encounter [facility] 09-02-2023 Miscellaneous Notes Attempted to call, [employer] message sent. Staff will attempt to follow-up. New Medications Ordered This Visit Medications miconazole (MICOTIN-7) 100 mg vaginal suppository Sig: Insert 1 suppository (100 mg total) into the vagina nightly for 7 days. Dispense: 7 suppository Refill: 0 documented in this encounter [facility] 09-02-2023 Telephone encounter Note Attempted to call, [employer] message sent. Staff will attempt to follow-up. New Medications Ordered This Visit Medications miconazole (MICOTIN-7) 100 mg vaginal suppository Sig: Insert 1 suppository (100 mg total) into the vagina nightly for 7 days. Dispense: 7 suppository Refill: 0 [facility] 08-30-2023 Miscellaneous Notes First Attempt Made from Chau Ramos Voicemail New patient referral received. Dx:Late care [...] at their earliest convenience to do so. Livestock Showman provided callback number for scheduling or to address any questions or concerns they may have. 3rd and final attempt: Livestock Showman unable to make contact with patient by phone - Unable to contact letter mailed to patient requesting a call back so we are able to schedule them in for a new patient appointment and update their contact information. Letter mailed to patient on: 09/02/2023 - mmv. documented in this encounter [facility] 08-30-2023 Telephone encounter Note First Attempt Made from Chau Ramos Voicemail New patient referral received. Dx:Late care affecting in second trimester [O09.32] Chronic intractable headache, unspecified headache type [R51.9, G89.29]/ Referred by:FRANCES Ward Referred to: Providers patient can see in clinic: MEENAKSHI WOODARD Please contact patient to schedule from referral, Thanks! PLEASE REVIEW PLAN OVER THE PHONE AND ADVISE PATIENT TO BRING UPDATED INSURANCE INFORMATION TO THEIR NEW PATIENT APPOINTMENT [facility] 08-30-2023 Telephone encounter Note 2nd attempt: Called and left patient a voicemail once more letting them know we have received their referral, are ready to schedule, and to call us back at their earliest convenience to do so. Livestock Showman provided callback number for scheduling or to address any questions or concerns they may have. [facility] 08-30-2023 Telephone encounter Note 3rd and final attempt: Livestock Showman unable to make contact with patient by phone - Unable to contact letter mailed to patient requesting a call back so we are able to schedule them in for a new patient appointment and update their contact information. Letter mailed to patient on: 09/02/2023 - mmv. [facility] 08-30-2023 Miscellaneous Notes This is notification that we have received a referral for the patient. Please reach out to schedule new patient appointment in your office. Please check the referral tab in appt desk for details and to make sure to assign referral or schedule off of it. Thank you. documented in this encounter [facility] 08-30-2023 Telephone encounter Note This is notification that we have received a referral for the patient. Please reach out to schedule new patient appointment in your office. Please check the referral tab in appt desk for details and to make sure to assign referral or schedule off of it. Thank you. [facility] 08-29-2023 History of Present illness Narrative Patient [...] lab, instructions given to give kit to pharmacy general manager in lab. Patient verbalizes understanding. Subjective Laura Pond is a 22 y.o. female being [...] but has an appointment to start counseling [facility] on 09/18/2023. We discussed antidepressant/antianxiety medication in [...] - Primary Relevant Orders Chlamydia/GC by PCR Dany Swab Vaginitis Panel PCR Second trimester Relevant Orders Chlamydia/GC by PCR Dany Swab Vaginitis Panel PCR Urine Culture Urinalysis Glucose Tolerance, Fasting Glucose, 2 hour Post 75gm load Late care affecting in second trimester Relevant Orders Chlamydia/GC by PCR Dany Swab Vaginitis Panel PCR Urine Culture Urinalysis Glucose Tolerance, Fasting Glucose, 2 hour Post 75gm load Thyroid profile includes TSH FT4 ECG 12 lead [facility] [place], [place] Ambulatory referral to Cardiology ([facility]) Chronic intractable headache, unspecified headache type Relevant Orders [facility] [place], [place] Chest pain, unspecified type Relevant Orders [...] Ward 08/29/23 1700 documented in this encounter [facility] 08-28-2023 Evaluation + Plan note Associated Problem(s): Slow transit constipation Hydration, fibers Colace HS daily [facility] 08-28-2023 Miscellaneous Notes Associated Problem(s): Slow transit constipation Hydration, fibers Colace HS daily documented in this encounter [facility] 08-28-2023 History of Present illness Narrative Patient here for initial OB intake visit accompanied by her auntie (friend of the family); this is an unplanned , accepting about , FOB Ralph and family supportive supportive. This will be their third child together (recent set of twins at 25 weeks gestation, born 02/2023). Patient had a Nexplanon placed 04/05/[address] [facility], found to be with Nexplanon in place at ED visit in [place]. Nexplanon was removed per this office 08/23/2023. Patient lives in [place], discussed availability of CNM office in [place], patient interested and will continue the remainder [...] this visit. Discussed Survey US; scheduled at [facility] 09/04/2023. Patient has vitamins she is taking. All questions asked and answered to patient's satisfaction. To return for OB visit with provider; plan PE with Pap & cultures next visit, patient verbalizes understanding. 22 y.o. at 23w6d. No CTX, VB, LOF. positive FM. Presents for Iitial OB Interview. She had a dating US today at [facility]. She has a [facility] survey 09-04-23 at [facility] 1. Reviewed signs of labor and movement 2. [...] now after a long NICU stay at [facility]. 3. C/o constipation. Discussed fibers and hydration. Colace ordered 4. C/o headaches. States that she always has headaches. Magnesium ordered. States that she has caffeine daily - Pepsi. Discussed trying Tylenol also and staying hydrated. 5, Return 1 wks. With Mallika in [place]..Instructged that if she continues to have >5-6 contractions in 1 hour to call or go to hospital. FRANCES Joseph 08/28/23 1520 FRANCES Joseph 08/28/23 1711 documented in this encounter [facility] 08-23-2023 History of Present illness Narrative NEW PATIENT - Nexplanon removal Laura Pond is a 22 year old at 23w1d by 19w US (performed 07/30/23 [facility]). Pt has Nexplanon, placed 04/05/23 ([facility]). She is 6 months . She had [...] following appts: Growth and Cervical length US Sat08/28/23 12:30 pm IOB Saturday08/28/23 1pm Anatomy survey 09/04/23 8:15 am *Soonest US appt for Survey is 09/04/23, staffed called [facility] and [facility] but there are no openings. Therefore will obtain a growth US and cervical length as soon as possible and schedule pt for first opening for survey. After IOB, she may transfer to [place] office as that's where she lives. M consult placed due to history of short cervix, at 25w2d, late care. Procedure: Nexplanon Removal Laura Pond is a 22 y.o. female who [...] Stoll 08/23/23 1210 documented in this encounter [email or web address] 05-13-2023 Miscellaneous Notes ----- Message from FRANCES Arnold sent at 05/10/2023 9:53 PM EST ----- Regarding: Needs appt. PLease call patient Saturday05/13/23 to be seen, Nexplanon removal chitra. Thanks Images from the original note were not included. FRANCES Arnold P [facility] Appointment Desk PLease call patient Saturday05/13/23 to be seen, Nexplanon removal chitra. Thanks Left message for patient to call office to schedule appt documented in this encounter [facility] 05-13-2023 Telephone encounter Note ----- Message from FRANCES Arnold sent at 05/10/2023 9:53 PM EST ----- Regarding: Needs appt. PLease call patient Saturday05/13/23 to be seen, Nexplanon removal chitra. Thanks [facility] 05-13-2023 Telephone encounter Note Images from the original note were not included. FRANCES Arnold [facility] Appointment Desk PLease call patient Saturday05/13/23 to be seen, Nexplanon removal chitra. Thanks Left message for patient to call office to schedule appt [facility] 05-10-2023 Miscellaneous Notes Patient called and would [...] desires neurology consult & appointment at [facility] to speak in person with provider. Advised it would be reasonable to go to ED for this now & definitely to go if worst h/a of life or feeling of tight band of head, changes in vision again. Pt voiced agreement. Will leave office a message to call patient on Saturday to get scheduled chitra. documented [facility] Telephone encounter Note Patient called and would like to speak with a provider. She had the nexplanon placed on 04/05/23. Since then she complains that she's had migraines that have not been helped with tylenol or motrin and has been really nauseous. Please advise. [facility] Telephone encounter Note Called patient & left a message for her to call my [employer] or SHANIA pager, both numbers given to [...] desires neurology consult & appointment at [facility] to speak in person with provider. Advised it would be reasonable to go to ED for this now & definitely to go if worst h/a of life or feeling of tight band of head, changes in vision again. Pt voiced agreement. Will leave office a message to call patient on Saturday to get scheduled chitra. [facility] 11-14-2021 Evaluation note Encounter Date Diagnosis Assessment [...] occur if testing is performed too soon. Beepi Other Evaluation note* Diagnosis Encounter for follow-up Vaginal bleeding affecting early [facility] History of delivery, currently - Primary with history of pre-term labor History of twin in prior Personal history of other genital system and obstetric disorders History of prior with short cervix, currently 23 weeks gestation of [facility] Diagnosis care, subsequent , second trimester- Primary Short interval between pregnancies affecting in second trimester, antepartum Screen for STD (sexually transmitted disease) Screening examination for venereal disease Screening for genetic disease carrier status Encounter for screening for other genetic defects Acute intractable headache, unspecified headache type Constipation, unspecified constipation type [facility] Diagnosis Screen for STD (sexually transmitted [...] Moderate episode of recurrent major depressive disorder ([facility]) Gastroesophageal reflux disease without esophagitis Esophageal reflux Slow transit constipation Intractable chronic migraine without aura and with status migrainosus [facility] Diagnosis Second trimester - Primary state, incidental Late care in second trimester documented [facility] Diagnosis Vaginal yeast infection- Primary Candidiasis of vulva and vagina documented in this [facility]* Diagnosis Intractable chronic migraine without aura and with status migrainosus- Primary Slow transit constipation Acute cystitis without hematuria Cystic fibrosis carrier Moderate episode of recurrent major depressive disorder ([facility]) History of delivery Hx of thyroid disease Excessive growth affecting management of , antepartum, single or unspecified fetus Marijuana use during Maternal varicella, non-immune Supervision of other normal with adoption planned, antepartum Request for sterilization documented in this encounter [facility]* Diagnosis Second trimester - Primary state, incidental Intractable chronic migraine without aura and with status migrainosus with adoption planned, antepartum Maternal varicella, non-immune Supervision of other normal Marijuana use during Hx of thyroid disease History of delivery Moderate episode of recurrent major depressive disorder ([facility]) Cystic fibrosis carrier Intrauterine documented in this encounter [facility]* Diagnosis care, third trimester- Primary Food insecurity documented in this [facility]* Diagnosis with 36 completed weeks gestation- Primary documented in this encounter [facility]* Diagnosis 38 weeks gestation of - Primary Short interval between pregnancies affecting , antepartum Late care Insufficient care Hx of delivery, currently with history of pre-term labor documented in this encounter [facility]* Diagnosis Missed menses , unspecified gestational age Encounter for supervision of normal first in first trimester Screening, , for anatomic survey Encounter for anatomic survey Second trimester state, incidental 21 weeks gestation of Abnormal TSH BV (bacterial vaginosis) Unspecified vaginitis and vulvovaginitis documented in this encounter [facility]* Diagnosis care, subsequent , second [...] , antepartum- Primary documented in this encounter [facility]* Diagnosis Well woman exam with routine gynecological exam Routine gynecological examination Vaginal discharge Leukorrhea, not specified as infective STD exposure Missed menses , unspecified gestational age Diabetes mellitus screening Screening for diabetes mellitus Flank pain Abdominal pain, unspecified site documented in this encounter [facility]* Diagnosis 28 weeks gestation of documented in this encounter [facility] HealthcareInstructionsNot on filedocumented in this encounterFost[facility] SystemInstructionsNot on filedocumented in this encounterFostoria City [facility] SystemInstructionsNot on filedocumented in this encounterFostoria City [facility] System InstructionsNot on filedocumented in this encounterMc[facility] InstructionsNot on filedocumented in this encounterMcKitrick [facility] InstructionsNot on filedocumented in this encounterFostoria City [facility] InstructionsNot on filedocumented in this encounterFostoria [facility] InstructionsNot on filedocumented in this encounterFostoria City [facility] InstructionsNot on filedocumented in this encounterFostoria City [facility] System InstructionsNot on filedocumented in this encounterFostoria City Hospital [facility] System InstructionsNot on filedocumented in this encounterOhio[facility] Instructions* Attachments The following attachments cannot be sent through Care Everywhere. * Managing pain during labor and delivery (Ugandan) * How to tell when labor starts (Ugandan) documented in this encounterOhio[facility] SystemInstructionsNot on file documented in this encounterOhio[facility] SystemInstructionsNot on file documented in this encounterOhioHealth [facility] SystemReason for referral (narrative)* Consultation (Routine) - Pending Review Specialty Diagnoses / Procedures Referred By Wilbur ibarra Referred To Contact Cardiology Diagnoses Late care affecting in second trimester Chest pain, unspecified type Heart palpitations Mallika Conn APRN-CNM [address] [address] Raghu Cummings MD [address] [place] [id number] Referral ID Status Reason Start Date Expiration Date Visits Requested Visits Authorized [id number] Pending Review Specialty Services Required 08/29/2023 08/28/2024 1 1 * Consultation (Routine) - Pending Review Specialty Diagnoses / Procedures Referred By Contac t Referred To Contact Neurology Diagnoses Late care affecting in second trimester Chronic intractable headache, unspecified headache type Mallika Conn APRN-CNM [address], [address] [address] Julianne Moyer MD [address] [place] [address], [address] [address] Referral ID Status Reason Start Date Expiration Date Visits Requested Visits Authorized [id number] Pending Review Specialty Services Required 08/29/2023 08/28/2024 1 1 * Cardiology (Routine) - Pending Review Specialty Diagnoses / Procedures Referred By Contac t Referred To Contact Diagnoses Late care affecting in second trimester Chest pain, unspecified type Heart palpitations Procedures ECG 12 lead Mallika Conn APRN-CNM [address] , [address] [address] Referral ID Status Reason Start Date Expiration Date V isits Requested Visits Authorized [id number] Pending Review 08/29/2023 08/28/2024 1 1 [facility] for referral (narrative)* Consultation (Routine) - Pending Review Specialty Diagnoses / Procedures Referred By Contac t Referred To Contact Major Assembly Lineman Diagnoses Second trimester with adoption planned, antepartum Mallika Conn APRN-CNM [address] , [address] [address] Referral ID Status Reason Start Date Expiration Date Visits Requested Visits Authorized [id number] Pending Review Specialty Services Required 10/10/2023 10/09/2024 1 1 [facility] (n[facility]ative)* Health Education (Routine) - Pending Review Specialty Diagnoses / Procedures Referred By Wilbur ibarra Referred To Contact Nutrition Diagnoses Food insecurity Sally Newman, EXECUTIVE CANDIDATE DEVELOPER-ARCGIS DEVELOPER [address] [place] [address] [facility] [address] [place] [address] Referral ID Status Reason Start Date Expiration Date V isits Requested Visits Authorized [id number] Pending Review 11/19/2023 11/18/2024 12 12 [facility] Summary Purpose Family History No Family History Records FoundNo Family History Records FoundNo Family History Records FoundNo Family History Records FoundNo Family History Records FoundNo Family History Records FoundNo Family History Records FoundNo Family History Records Found Advance Directives No Advanced Directives Records Found Date Activated Date Inactivated Comments 02/03/2023 12:25 [...] Referral Specialty Diagnoses / Procedures Referred By Contkingston t Referred To Contact Maternal and Medicine Diagnoses History of delivery, currently History of twin in prior History of prior with short cervix, currently Procedures [facility] with or without consult Amaya Cruz, EXECUTIVE CANDIDATE DEVELOPER-ARCGIS DEVELOPER [address] [place] [address] [facility] Maternal Med [address] [place] [address] Referral ID Status Reason Start Date Expiration Date V isits Requested Visits Authorized [id number] Pending Review 08/23/2023 08/22/2024 1 1 Additional Source Comments REASON FOR VISIT (unrecogniz ed section and content) Reason Comments ER Follow-up Pt was at [facility] on 05/15/2024 for vaginal bleeding. Pt [...] and content) DATE CREATED AUTHOR 09/13/2022 [facility] DATE CREATED AUTHOR AUTHOR'S ORGANIZ ATION 12/04/2022 [facility] DATE CREATED AUTHOR AUTHOR'S ORGANIZ ATION 09/05/2023 [facility] DATE CREATED AUTHOR AUTHOR'S ORGANIZ ATION 09/20/2023 [facility] DATE CREATED AUTHOR AUTHOR'S ORGANIZ ATION 12/09/2023 [facility] DATE CREATED AUTHOR AUTHOR'S ORGANIZ ATION 09/07/2024 [facility] DATE CREATED AUTHOR AUTHOR'S ORGANIZ ATION 09/20/2024 [facility] DATE CREATED AUTHOR AUTHOR'S ORGANIZ ATION 09/29/2024 [facility] Care Teams (unrecognized sec tion and content) Hard Metals Engraver Hand Relationship Specialty Start Date End Date No Pcp, [place] [address] PCP - General Family Medicine 07/30/23 [employer] Engraver Hand Relationship Specialty Start Date End Date No Pcp, [place] [address] PCP - General Family Medicine 07/30/23 [employer] Met[employer] Engraver Hand Relationship Specialty Start Date End Date No Pcp, [place] [address] PCP - General Family Medicine 07/30/23 Hard Metals Engraver Hand Relationship Specialty Start Date End Date No Pcp, [place] [address] PCP - General Family Medicine 07/30/23 Hard Metals Engraver Hand Relationship Specialty Start Date End Date No Pcp, [place] [address] PCP - General Family Medicine 07/30/23 Hard Metals Engraver Hand Relationship Specialty Start Date End Date No Pcp, [place] [address] PCP - General Family Medicine 06/23/22 [employer] Metals Engraver Hand Relationship Specialty Start Date End Date No Pcp, [place] [address] PCP - General Family Medicine 07/30/23 Hard Metals Engraver Hand Relationship Specialty Start Date End Date No Pcp, [place] [address] PCP - General Family Medicine 07/30/23 Hard Metals Engraver Hand Relationship Specialty Start Date End Date No Pcp, [place] [address] PCP - General Family Medicine 07/30/23 Hard Metals Engraver Hand Relationship Specialty Start Date End Date No Pcp, [place] [address] PCP - General Family Medicine 07/30/23 Hard Metals Engraver Hand Relationship Specialty Start Date End Date No Pcp, [place] [address] PCP - General Family Medicine 07/30/23 Hard Metals Engraver Hand Relationship Specialty Start Date End Date No Pcp, [place] [address] PCP - General Family Medicine 07/30/23 Hard Metals Engraver Hand Relationship Specialty Start Date End Date No Pcp, [place] [address] PCP - General Family Medicine 07/30/23 Hard Metals Engraver Hand Relationship Specialty Start Date End Date No Pcp, [place] [address] PCP - General Family Medicine 07/30/23 Hard Metals Engraver Hand Relationship Specialty Start Date End Date No Pcp, [place] [address] PCP - General Family Medicine 07/30/23 Hard Metals Engraver Hand Relationship Specialty Start Date End Date Osmany Bella DO [address] [place] [address] [place] [address] PCP - General Obstetrics & Gynecology 07/12/24 [...] THE PRIMARY CLINICAL RECORDS. [facility] [employer] [employer] [facility]. provides no warranty or guarantee of the accuracy or completeness of information in this document.
--- NOTE | 2024-10-03 19:36 | P.OBLDTN_ITS ---
OB - Triage/Final Diagnosis Visit Information Date of evaluation: 10/03/24 Reason for evaluation: other (contractions with pelvic pressure, patient did walk 4 hours to see the FOB who is in assisted though she is supposed to be on bedrest) Comments/Additional reasons for admission: 32+ week IUP Evaluation Cervical dilation (cm): 1 (FT) Vital signs: stable Final Diagnosis (1) Premature uterine contractions causing threatened premature labor, antepartum: Status: Acute Problem details: Patient improving, now with pelvic pressure, contraction pain has resolved
== END 2024-10-03 21:00 | disposition home or self-care (01) ==
PROVIDERS: Admitting Provider Obstetrics & Gynecology Gynecology; Visit Provider Obstetrics & Gynecology Gynecology
DX: O47.03 False labor before 37 completed weeks of gestation, third trimester (principal); Z3A.32 32 weeks gestation of pregnancy
CPT/HCPCS: G0378; G0379

== ENCOUNTER 2024-10-23 12:59 | Outpatient (OUT) | payer MEDICAID, SELFPAY ==
--- OUTSIDE RECORDS SUMMARY | 2023-09-02 13:15 | XMS_ITS ---
Author Organization [facility]ices Address [address] [place], [place] [address] Care Team Providers Care Sanitation Truck Cleaner Name Role Phone Arlene Ospina Primary Care Provider Ruth Bess [phone] REASON FOR VISIT Initial psychiatric evaluation Medications [...] Location Date Provider Diagnosis Main [address] [place] [id number] 09/02/2023 Ruth Bess Dietary counseling Z 71.3 and Exercise counseling Z71.82 Assessments Encounter Date Diagnosis (ICD Code) Assessment Notes Treatment Notes Treatment Clinical Notes Section Notes 09/02/2023 Dietary counseling (ICD-10 - Z71.3) 09/02/2023 Exercise counseling (ICD-10 - Z71.82) Plan Of Treatment Next Appt Details Follow Up: 4 Weeks,prn, Reas on: Progress Notes * Chetna PONDonDOB:2000 (24 yo F)Acc No.[id number]:09/02/2023 Patient: Georgie ARAMBULA Provider: DELIA Kebede :2000 A ge:22 Y S ex:Female Date:09/02/2023 Address:[address] [place], [place] [address] Pcp:Arlene Ospina Subjective: * Chief Complaints: * [...] Problems: * Billing Information: * Visit Code: 37201 Psychiatric diagnostic eval with med sv. Modifiers: SA * Procedure Codes: Care Plan Details* * Electronic signature of DELIA Madsen on 10/23/2024 at 01:03 PM EDT Sign off status: Pending * Provider: DELIA Kebede Date: 0 09/02/2023 Generated for Yarely leon/Arvind/Thangitting on: 0 10/23/2024 01:03 PM EDT
--- OUTSIDE RECORDS SUMMARY | 2024-10-15 15:30 | XMS_ITS | Encounter Summary ---
Author Organization [facility] Address [address] [place] [address] Care Team Providers Care Information Systems Specialist Name Role Phone Unavailable Primary Care Provider Unavailabl e Reason for Visit * Reason Comments Routine Visit Encounter Details Date Type Department Care Team ([facility] Contact Info) Description 10/15/2024 3:30 PM EDT Routine [facility] OB [address] [place] [phone] Mya Kaplan PA [address] [place], [place] [id number] Third trimester ([facility]); 32 weeks gestation of ([facility]); H/O incompetent cervix, currently ([facility]); Noncompliant patient, third trimester ([facility]) Social History Tobacco Use Types Packs/Day [...] nursing note reviewed. Exam conducted with a demand planning analyst present. Vitals: There is no height or weight on file to calculate BMI. BP: 118/78 No LMP recorded. Patient is . ASSESSMENT & PLAN ICD-10-CM 1. Third trimester ([facility]) Z34.93 2. 32 weeks gestation of ([facility]) Z3A.32 3. H/O incompetent cervix, currently ([facility]) O09.299 4. Noncompliant patient, third trimester ([facility]) O09.893 Z91.199 Patient presents today for a routine obstetrics appointment. Patient is currently 34w2d with a Estimated Date of Delivery: 11/24/24. Patient made aware that she will need to start NST/BPP andgrowth scan to be started at [facility]. Patient given orders and sent to [facility]. Patient to return to clinic in 1 week for routine OB appointment. Documented by Christie Wiley LPN on behalf of: BLANCA Gibson documented in this encounter Plan of Treatment Upcoming Encounters Date Type Department Care Team (Late st Contact Info) Description 10/28/2024 2:30 PM EDT Routine [facility] OB [address] [place] [address] Osmany Bella, DO [address] [place] [address] Scheduled Orders Name Type Priority Associated Diagnoses Orde r Schedule US biophysical profile w non stress test Imaging Routine Third trimester ([facility]) 32 weeks gestation of ([facility]) H/O incompetent cervix, currently ([facility]) Noncompliant patient, third trimester ([facility]) Expected: 10/15/2024 (Approximate), Expires: 04/16/2025 US [...]
--- OUTSIDE RECORDS SUMMARY | 2024-10-21 14:30 | XMS_ITS | Encounter Summary ---
Author Organization [facility] Address [address] [place] [address] Care Team Providers Care Hog Worker Name Role Phone Unavailable Primary Care Provider Unavailabl e Encounter Details Date Type Department Care Team (Late st Contact Info) Description 10/21/2024 2:30 PM EDT Routine [facility] OB [address] [place] [address] Mya Kaplan PA [address] [place], [facility]11 35 weeks gestation of ([facility]); Third trimester ([facility]) Social History Tobacco Use Types Packs/Day Years [...] Sign Reading Time Taken Comments Blood Pressure 116/86 10/21/2024 3:09 PM EDT Pulse - - Temperature - - Respiratory Rate - - Oxygen Saturation - - Inhaled Oxygen Concentration - - Weight 78.1 kg (172 lb 1.9 oz) 10/21/2024 3:09 P M EDT Height - - Body Mass Index - - documented in this encounter Progress Notes * BLANCA Gibson - 10/21/2024 2:30 PM EDT Reason for Appointment: Patient ID: Georgie Pond is a 24 y.o. female who presents for No chief complaint on file. Patient presents today for Return OB appointment. [...] Exam Constitutional: Appearance: Normal appearance. She is well-developed and normal weight. Genitourinary: Vulva normal. HENT: Head: Normocephalic. Cardiovascular: Rate and Rhythm: Normal rate and regular rhythm. Pulses: Normal pulses. Pulmonary: Effort: Pulmonary effort is normal. Breath sounds: Normal breath sounds. Abdominal: General: Bowel sounds are normal. There is no distension. Palpations: Abdomen is soft. Tenderness: There is no abdominal tenderness. There is no guarding or rebound. Musculoskeletal: General: No swelling. Normal range of motion. Right lower leg: No edema. Left lower leg: No edema. Neurological: General: No focal deficit present. Mental Status: She is alert and oriented to person, place, and time. Skin: General: Skin is warm and dry. Psychiatric: Mood and Affect: Mood normal. Behavior: Behavior normal. Thought Content: Thought content normal. Judgment: Judgment normal. Vitals and nursing note reviewed. Exam conducted with a mask design engineer present. Vitals: There is no height or weight on file to calculate BMI. BP: No LMP recorded. Patient is . ASSESSMENT & PLAN Patient presents today for a routine obstetrics appointment. Patient is currently 35w1d with a Estimated Date of Delivery: 11/24/24. Patient voiced that she has been having contractions/pelvic pressure. Patient voiced that pain is worse when she is walking it feels as though baby's head is putting pressure on her pelvis. Performed pelvic exam and patient informed that she is not dilating at this time. Patient to return to clinic in 1 week and will have GBS obtained at that time. Discussed with patient current working status & that she is now on light duty verses bedrest. Patientaware that she is now able to resume visitation at [facility] Facility as previously scheduled to see her twins. Patient verbalized understanding and will return to clinic in 1 week. Documented by Christie Wiley LPN on behalf of: BLANCA Gibson documented in this encounter Plan of Treatment Upcoming Encounters Date Type Department Care Team (Late st Contact Info) Description 10/28/2024 2:30 PM EDT Routine [facility] [address] [place] [address] Osmany Bella, DO [address] [place] [address] documented as of this encounter Procedures Procedure Name Priority Date/Time Associated Diagnosis Comments POCT URINALYSIS DIPSTICK Routine 10/21/2024 3:08 PM EDT 35 weeks gestation of ([facility]) Third trimester ([facility]) documented in this encounter Results * (ABNORMAL) POCT urinalysis dipstick manually resulted (10/21/2024 3:08 PM EDT) Color, UA Yellow Clarity, UA Clear Glucose, UA Negative Negative - 2000(110) ++++ mg/dL Bilirubin, UA Negative Negative - 4(70) +++ mg/dL Ketones, UA Negative Negative - 160(16) ++++ mg/dL Spec Grav, UA 1.015 1 - 1.03 Blood, UA Positive Negative - 50 Ayden/mcL Comment:moderate pH, UA 6.5 5 - 9 Protein, UA Negative Negative - 2000(20) ++++ mg/dL Urobilinogen, UA 0.2 0.2 - 12 mg/dL Leukocytes, UA Negative Negative - 500+++ Caleb/mcL Nitrite, UA Negative Negative - Positive Urine 10/21/2024 3:08 PM EDT Mya RIOS POINT OF CARE TEST ENTER/EDIT OR DERABLES Final Result documented in this encounter Visit Diagnoses Diagnosis 35 weeks gestation of ([facility]) Third trimester ([facility]) state, incidental documented in this encounter
--- OUTSIDE RECORDS SUMMARY | 2024-10-23 13:03 | XMS_ITS | Encounter Summary ---
Author Organization [employer] Address [id number] [address] [place] [address] Care Team Providers Care Inspector Balance Wheel Motion Name Role Phone No Pcp, No Pcp Primary Care Provider Unavailabl e Encounter Details Date Type Department Care Team (Late st Contact Info) Description 09/25/2024 Orders Only [facility] Obstetrics/[facility]necology [address] [place] [phone] Madeline [facility] [address] [place] [phone] Bacterial vaginosis in (Primary Dx) Social History [...] often do you attend chur ch or episcopal services? Never 03/26/2021 Do you belong to any clubs o r organizations such as spiritism groups, unions, fraternal or athletic groups, or [...] Answer Date Recorded Total Score 4 08/29/2023 [facility] - Occupational [...] things needed for daily living? No 09/22/2024 [place] Depression Scale Answer Date Recorded [place] Depression Scale Total 13 09/12/2023 The thought [...] Recorded Do you need help finding a [facility] and/or a training program? No [...] documented as of this encounter Care Teams Inspector Balance Wheel Motion Relationship Specialty Start Date End Date No Pcp, [place] [address] PCP - General Family Medicine 09/01/24 documented as of this encounter
--- OUTSIDE RECORDS SUMMARY | 2024-10-23 13:03 | XMS_ITS | Encounter Summary ---
Author Organization [facility] Address [address] [place] [place] [address] Care Team Providers Care Informatics Nurse Name Role Phone Unavailable Primary Care Provider Unavailabl e Encounter Details Date Type Department Care Team (Late Contact Info) Description 12/12/2023 Abstract [facility] OB [address] [place] [address] Osmany Bella, [address], [facility] Social History Tobacco Use Types Packs/Day Years Used Date Smoking Tobacco: Never Assessed Comments Yes Sex and Gender Information Value Date Recorded Sex Assigned at Not on file Legal Sex Female 11:47 PM EDT Gender Identity Not on file Sexual Orientation Not on file documented as of this encounter Plan of Treatment Upcoming Encounters Date Type Department Care Team (Late Contact Info) Description 10/28/2024 2:30 PM EDT Routine [facility] OB [address] [place] [address] Osmany Bella, DO [facility] [address] [place], [place] [id number] documented as of this encounter Visit Diagnoses Not on filedocumented in this encounter
--- OUTSIDE RECORDS SUMMARY | 2024-10-23 13:03 | XMS_ITS | Encounter Summary ---
Author Organization [facility] Address [address] [place] [address] Care Team Providers Care Release Of Information Specialist Name Role Phone Unavailable Primary Care Provider Unavailabl e Encounter Details Date Type Department Care Team (Late st Contact Info) Description 12/10/2023 Abstract [facility] OB [address] [place] [address] Christie Wiley LPN Social History Tobacco [...] EDT Routine [facility] [address] [place] [address] Osmany Bella DO [facility] [place], [place] [phone] documented as of this encounter Visit Diagnoses Not on filedocumented in this encounter
--- OUTSIDE RECORDS SUMMARY | 2024-10-23 13:03 | XMS_ITS | Encounter Summary ---
Author Organization [facility] Address [address] [place] [address] Care Team Providers Care Master Of Ceremonies Name Role Phone Unavailable Primary Care Provider Unavailabl e Encounter Details Date Type Department Care Team (Late st Contact Info) Description 12/15/2023 Clinisync Result Encounter [facility] External Department Unsolicited Zhane Bella, [address] [place] [address] Social History Tobacco Use Types Packs/Day Years [...] Description 10/28/2024 2:30 PM EDT Routine [facility] OB [address] [place] [phone] Zhane Bella [facility] [place] [address] documented as of this encounter Procedures Procedure Name Priority Date/Time Associated Diagnosis Comments ECG 12-LEAD 12/15/2023 11:21 AM EDT documented in this encounter Results * ECG 12-LEAD (12/15/2023 11:21 AM EDT) Anatomical Region Laterality Modality Other 12/15/2023 11:2 1 AM EDT Narrative 12/16/2023 8:32 AM EDT The [address] [address] Electrocardiograph Report Signed Patient: GEORGIE POND MR#: [id number] : 2000 Acct:[id number] Age/Sex: 23 / F ADM Date: Loc: [facility] 258- Attending Dr: Zhane Bella D.O. Ordering Physician: Zhane Bella D.O. Date of Service: 12/15/23 Procedure(s): ECG 12 lead Accession Number(s): [id number] cc: [facility] Test Date: 2023-12-15 Pat Name: GEORGIE MATA Department: Room: [facility] Gender: Female Fire Protection Engineer: : 2000 Requested By: ZHANE BELLA Order Number: [id number] Reading MD: BEAR RICHARDSON Measurements Intervals [place] Rate: 80 P: 20 FL: 145 QRS: 32 QRSD: 86 T: 26 QT: 352 QTc: 408 Interpretive Statements SINUS RHYTHM Non-Specific T wave inversion in III WARNING: DATA QUALITY MAY AFFECT INTERPRETATION No previous ECG available for comparison Electronically Signed On 12-16-2023 8:32:05 EDT by BEAR RICHARDSON Dictated By: Bera Richardson M.D. Signed By: 12/16/23 0832 DD/ 1121 TD/TT: Public Information Relations Manager: Procedure Note Radiology, Radiologist, MD - 12/16/2023 The [place] [id number] Electrocardiograph Report Signed Patient: GEORGIE POND TMR#: [id number] : 2000Acct:[id number] Age/Sex: 23 / FADM Date: Loc: [facility] 258-[address]: Zhane Bella D.O. Ordering Physician: Zhane Bella D.O. Date of Service: 12/15/23 Procedure(s): ECG 12 lead Accession Number(s): [id number] cc: [facility] Test Date: 2023-12-15 [facility] Department: Room: [facility] Gender: Female Fire Protection Engineer: : 2000 Requested By: ZHANE BELLA Order Number: [id number] Reading MD: BEAR RICHARDSON Measurements Intervals [place] Rate: 80 P: 20 FL: 145 QRS: 32 QRSD: 86 T: 26 QT: 352 QTc: 408 Interpretive Statements SINUS RHYTHM Non-Specific T wave inversion in III WARNING: DATA QUALITY MAY AFFECT INTERPRETATION No previous ECG available for comparison Electronically Signed On 12-16-2023 8:32:05 EDT by BEAR RICHARDSON Dictated By: Bear Richardson M.D. Signed By:12/16/23 0832 DD/ 1121 TD/TT: Public Information Relations Manager: us Zhane Bella DO [facility] Final Result documented in this encounter Visit Diagnoses Not on filedocumented in this encounter
--- OUTSIDE RECORDS SUMMARY | 2024-10-23 13:03 | XMS_ITS | Encounter Summary ---
Author Organization [facility] Address [address] [facility] [address] Care Team Providers Care Wood Polisher Name Role Phone Unavailable Primary Care Provider Unavailabl e Encounter Details Date Type Department Care Team (Late Contact Info) Description 12/11/2023 Abstract [facility] [address] [place] [address] Osmany Bella, [address], [facility] Social History Tobacco Use Types [...] Description 10/28/2024 2:30 PM EDT Routine [facility] [address] [place] [address] Osmany Bella, DO [facility] [place], [place] [id number] documented as of this encounter Visit Diagnoses Not on filedocumented in this encounter
--- OUTSIDE RECORDS SUMMARY | 2024-10-23 13:03 | XMS_ITS | Encounter Summary ---
Author Organization [facility] Address [address] [place] [address] Care Team Providers Care Recruiting Operations Consultant Name Role Phone Unavailable Primary Care Provider Unavailabl e Encounter Details Date Type Department Care Team (Late Contact Info) Description 12/12/2023 Abstract [facility] [address] [place] [address] Osmany Bella, [address], [facility] Social History Tobacco Use Types Packs/Day [...] Description 10/28/2024 2:30 PM EDT Routine [facility] [address] [place] [address] Osmany Bella, DO [facility] [place], [place] [id number] documented as of this encounter Visit Diagnoses Not on filedocumented in this encounter
--- OUTSIDE RECORDS SUMMARY | 2024-10-23 13:03 | XMS_ITS | Clinical Summary ---
Author Organization Buggl tem Address [id number] [address] [place] [address] Care Team Providers Care Insulation Installer Name Role Phone No Pcp, No Pcp Primary Care Provider Unavailabl e Allergies No known active allergies Medications * This document contains information received from the source organization and may not represent a complete record from that organization. vit,sal 74/iron/folic ( VITAMIN 1+1 ORAL) Take by mouth in the morning. 09/25/19 25 Discontinue d(Stop Taking at Discharge) [id number] c acid () 29 mg iron- 1 mg tablet,chewable Chew 1 tablet and swallow in the morning for 14 days. 14 tablet 5 10/09/19 25 metroNIDAZOLE (FLAGYL) 500 mg tabletIndicatio ns:Bacterial vaginosis in Take 1 tablet (500 mg total) by mouth in the morning and at bedtime for 7 days. 14 tablet 5 10/03/19 25 Active Problems Problem Noted Date Diagnosed Date [...] weeks. Marijuana use during 08/29/2023 Overview (08/29/2023): [id number] THC positive and patient educated on cessation. Hx of delivery, currently 08/27 Overview (08/29/2023): Twins delivered 02-03-2023 at 25w2d 07/28/23 cervical length 4 cm Acute cystitis 08/28/2023 Overview (08/28/2023): 08-22-23 treated in [place] [facility] with Macrobid Intractable chronic migraine without aura 2023 Overview (08/28/2023): 05/10/2023 Neuro consult placed Magnesium Citrate ordered 400mg daily Episode of recurrent major depressive disorder 0 07/06/2021 Overview (08/28/2023): Has appointment at [facility] on 09-18-23 Slow transit constipation 03/12/2019 Assessment [...] Department Care Team Description 09/25/2024 Orders Only [facility]etric[facility]/Gynecolo gy [address] [place] [address] Madeline Gamboa APRN-CNM Bacterial vaginosis in (Primary Dx) 09/22/2024 Travel 09/21/2024 10:18 AM EDT - 09/21/2024 11:59 PM EDT Hospital Encounter [facility] - MFM US Imaging [address] [place] [address] Discharge Disposition: Home 09/18/2024 10:04 PM EDT - 09/22/2024 3:00 AM EDT Hospital Encounter [facility] - GEN 3 Antepartum [address] [place] [phone] Bala Randle MD Discharge Disposition: [facility] 09/18/2024 4:18 PM EDT - 09/18/2024 10:03 PM EDT Emergency [facility] - Emergency [address] [place] [phone] Saroj Carreon, Suicide attempt ([facility]) (Primary Dx) Discharge Disposition: [facility] 09/18/2024 Travel 09/01/2024 Travel 08/03/2024 6:20 AM EDT - 08/03/2024 9:22 AM EDT Hospital Encounter [facility] - LDRP [address] [place] [phone] Ynes Gale, INCIDENT RESPONSE CONSULTANT-CNM Saul Fan MD Discharge Disposition: Home 08/03/2024 Orders Only [facility] - LDR[facility] [address] [place] [phone] Violeta De Leon, SHAYNE-PUJAM Urinary tract infection in mother during , antepartum (Primary Dx) 08/03/2024 Travel 07/27/2024 2:58 PM EDT - 07/27/2024 11:59 PM EDT Hospital Encounter [facility] - Lab [address] [place] [phone] Encounter for supervision of normal , unspecified, second trimester (Primary Dx); 21 weeks gestation of Discharge Disposition: Home 07/27/2024 Travel from Last 3 Months Immunizations Immunization [...] Grandmother Not sure Alcohol abuse Mother Isis batsheva Breast cancer Mother Isis herman Depression Mother Isis herman Diabetes Mother Isis herman Drug abuse Mother Isis herman Hypertension Mother Isis herman Ovarian cancer Mother Isis herman Suicide Attempts Mother Isis herman Epilepsy Sister Colon cancer Neg Hx Uterine cancer Neg Hx Relation Name Status Comments Brother 1 Alive Brother 2 Alive Father unknown Maternal Grandfather Alive Maternal Grandmother Not sure Mother Isis batsheva Alive Paternal Grandfather unknown Paternal Grandmother unknown Sister Alive Social History Tobacco Use Types Packs/Day Years Used Date Smoking Tobacco: Never Smokeless Tobacco: Never Tobacco Cessation:Counseling Given: Not Answered Alcohol Use Standard Drinks/Week Comments Not Currently 0 (1 standard drink = 0.6 oz pur e alcohol) occasionally [employer] Answer Date Recorded In the past 12 months has e [employer], gas, oil, or water [employer] threatened to shut off services in your [...] often do you attend chur ch or sikhism services? Never 03/26/2021 Do you belong to any clubs o r organizations such as sikhism groups, unions, fraternal or athletic groups, or [...] Answer Date Recorded Total Score 4 08/29/2023 [facility] - Occupational Stress [...] medical appointments or from getting medications? No 05/2 In the past 12 months, has l ack of transportation kept you from meetings, work, or from getting things needed for daily living? No 09/22/2024 [place] Depression Scale Answer Date Recorded [place] Depression Scale Total 13 09/12/2023 The thought [...] you need help finding a [facility] career center and/or a training program? No [...] Plan 2020 Pap Smear 09/09/2023 COVID-19 Vaccine (3 - 2023-2 5 season) 2024 10/07/2020, 09/09/2020 Depression Screening [...] URINE CULTURE Routine 09/23/2024 4:56 PM EDT [facility] COM[facility]IC SURVEY Routine 09/21/2024 11:04 AM EDT VALPROIC ACID [place]ANE Routine 9:04 PM EDT AMMONIA Routine 09/19/2024 9:04 PM EDT VALPROIC ACID [place] Routine 2:49 AM EDT AMMONIA Routine 09/19/2024 2:49 [...] unspecified, second trimester 21 weeks gestation of from Last 3 Months Results * (ABNORMAL) Urinalysis (09/23/2024 11:40 PM EDT) Only the most recent of3 resultswithin the time period is included. COLOR Yellow Yellow, Colorless 09/24/2024 1:13 AM [facility] TURBIDITY Clear Clear 09/24/2024 1:13 AM [facility] SPECIFIC GRAVITY 1.025 1.003 - 1.035 09/24/2024 1:13 AM [facility] NITRITE Negative Negative 09/24/2024 1:13 AM [facility] PH,URINE 6.0 5.0 - 8.5 09/24/2024 1:13 AM [facility] LEUKOCYTE ESTERASE Negative Negative 09/24/2024 1:13 AM [facility] PROTEIN Trace(A) Negative 09/24/2024 1:13 AM [facility] KETONES (URINE) Trace(A) Negative 1:13 AM [facility] UROBILINOGEN 4.0 eu/dL(A) 0.2 eu/dL, 1.0 eu/dL 09/24/2024 1:13 AM [facility] BILIRUBIN (URINE) Negative Negative 09/24/2024 1:13 AM [facility] BLOOD/HGB Negative Negative 09/24/2024 1:13 AM [facility] MUCOUS Present(A) None 09/24/2024 1:13 AM [facility] R.B.CELLS 0 0 - 5 09/24/2024 1:13 AM [facility] SQUAMOUS EPITHELIUM 3 0 - 5 09/24/2024 1:13 AM [facility] W.B.CELLS 2 0 - 5 09/24/2024 1:13 AM [facility] GLUCOSE (URINE) Negative Negative, 250 mg/dL, >1000 mg/dL 09/24/2024 1:13 AM [facility] Urine Urine specimen collection, clean catch / Unknown 09/23/2024 11:40 PM EDT 09/23/2024 11:51 PM EDT Madeline Gamboa INCIDENT RESPONSE CONSULTANT-CNM URINE ORDERABLES Final Resu lt [facility] [address] [place] [address], * Chlamydia/GC by PCR Nighat Swab (09/23/2024 11:17 PM EDT) CHLAMYDIA DNA(PCR) Negative Negative 09/25/2024 6:28 AM [facility] Comment:Chlamydia trachomati s not detected by nucleic acid amplification. This does not exclude the possibility of infection because results are dependent on adequate specimen collection. GONORRHOEAE DNA(PCR) Negative Negative 09/25/2024 6:28 AM EDT [facility] Comment:Neisseria gonorrhoea e not detected by nucleic acid amplification. This does not exclude the possibility of infection because results are dependent on adequate specimen collection. Swab Vaginal structure / Unknown 09/23/2024 11:17 PM EDT 09/23/2024 11:27 PM EDT Madeline Gamboa INCIDENT RESPONSE CONSULTANT-CNM MICROBIOLOGY - GENERAL ORDE LAWRENCE Final Result [facility] [address] [place] [address], * (ABNORMAL) Vaginitis Panel PCR (09/23/2024 11:17 PM EDT) BACT. VAGINOSIS DNA Detected(A) Not Detected 09/24/2024 9:29 PM EDT [facility] Comment:Qualitative results are reported based on detection and quantitation of targeted organism markers which include: Lactobacillus spp. (L. crispatus and L. jensenii), Gardnerella vaginalis, Atopobium vaginae, Bacterial Vaginosis Associated Bacteria-2 (BVAB-2) and Megasphaera-1. SHANEKA SPECIES DNA Not Detected Not Detected 09/24/2024 9:29 PM EDT [facility] Comment:Shaneka species not detected include: C. albicans, C. tropicalis, C. parapsilosis or C. dubliniensis. SHANEKA KRUSEI DNA Not Detected Not Detected 09/24/2024 9:29 PM EDT [facility] Comment:No Shaneka krusei de tected. SHANEKA GLABRATA DNA Not Detected Not Detected 09/24/2024 9:29 PM EDT [facility] Comment:No Shaneka glabrata detected. TRICHOMONAS VAG DNA Not Detected Not Detected 09/24/2024 9:29 PM EDT [facility] Comment: No Trichomonas vaginalis detected. BD MAX Vaginal Panel has not been evaluated for patients under 18 years old. Results for these patients should be reviewed and assessed in accordance with clinical presentation to determine patient diagnosis. Swab Vaginal structure / Unknown 09/23/2024 11:17 PM EDT 09/23/2024 11:26 PM EDT Madeline Gamboa APRN-CNM MICROBIOLOGY - GENERAL ORDE RABLES Final Result [facility] [address] [place] [address], [place] [phone] * Urine Culture Urine, Clean Catch Midstream (09/23/2024 4:56 PM EDT) Only the most recent of2 resultswithin the time period is included. CULTURE RESULTS 10-50,000 ORGANISMS/mL NORMAL UROGENITAL LAEX 09/24/2024 3:41 PM EDT [facility] Urine Urine specimen collection, clean catch / Unknown 09/23/2024 4:56 PM EDT 09/23/2024 5:02 PM EDT Narrative [facility] - 09/24/2024 3:41 PM EDT Urine received without preservative - delays in transport may affect results. Interpret with caution and clinical correlation is recommended. Lucius Townsend MD MICROBIOLOGY - GENERAL ORDERABL ES Final Result [facility] [address] [place] [address], [place] [phone] * [facility] COMPREHENSIVE ANATOMIC SURVEY (09/21/2024 11:04 AM EDT) Anatomical Region Laterality Modality OB-PRODUCT SAFETY TECHNICIAN Ultrasound 09/21/2024 10:3 2 AM EDT Narrative 09/21/2024 11:43 AM EDT NAME: SALTY SANCHEZ : 2000 SEX: F Accession Number: [id number] ORDERING PHYSICIAN: SONJA COLEMAN REFERRING PHYSICIAN: ZHANE BELLA Coding ----- --------- Procedures [id number]: Ultrasound, uterus, real time with image documentation, and maternal evaluation plus detailed anatomic examination, transabdominal approach;single or first gestation STAT ----- --------- Patient Location: Inpatient Indication ----- --------- Screening for Anatomic Survey, Previous , Obesity in , Supervision of high risk . History ----- --------- OB History 5. Para 2 [id number] Maternal Assessment ----- --------- Physical Exam Height [...] EFW (oz) 9 oz EFW by: Hadlock ([id number]-FL) Extended Tibia 51.5 mm 30w 5d 47% Rand Cracker Dough Mixer 4.5 mm CM 4.8 mm 3% Nicolaides [...] Heart / Thorax RVOT view. LVOT view. 6-uqttia-srnlqhj view. Aortic arch view. Ductal arch view. [...] primary OB provider unless otherwise specified by [facility]. Results forwarded to ordering provider so they can follow up with the patient as necessary. Procedure Note Brady Charles MD - 09/21/2024 NAME: SALTY SANCHEZ : 2000 SEX: F Accession Number: [id number] ORDERING PHYSICIAN: SONJA COLEMAN REFERRING PHYSICIAN: ZHANE BELLA Coding ----- --------- Procedures 99382: Ultrasound, uterus, real time with imagedocumentation, and maternal evaluation plus detailed anatomic examination, transabdominalapproach;single or first gestation STAT ----- --------- Patient Location: Inpatient Indication ----- --------- Screening for Anatomic Survey, Previous , Obesity in ,Supervision of high risk . History ----- --------- OB History 5. Para 2 [id number] Maternal Assessment ----- --------- Physical Exam Height [...] EFW (oz) 9 oz EFW by: Hadlock ([id number]) Extended Tibia 51.5 mm 30w 5d 47% Rand Cracker Dough Mixer 4.5 mm CM 4.8 mm 3% Nicolaides [...] Heart / Thorax RVOT view. LVOT view. 0-neuojl-rfpuave view. Aortic archview. Ductal arch view. Great [...] up with thepatient as necessary. us Sonja Coleman DO [facility] US ORDERABLES Final Res ult * (ABNORMAL) Valproic acid, depakane (09/19/2024 9:04 PM EDT) Only the most recent of3 resultswithin the time period is included. VALPROIC ACID 31(L) 50 - 100 ug/mL 09/19/2024 9:47 PM EDT [facility] Blood Venous blood / Unknown 09/19/2024 9:04 PM EDT 09/19/2024 9:04 PM EDT us Marie Lopez MD LAB BLOOD ORDERABLES Final Resul t [facility] [address] [place] [address], [place] [phone] * Ammonia (09/19/2024 9:04 PM EDT) Only the most recent of3 resultswithin the time period is included. Pathologist [facility] AMMONIA 32 18 - 72 umol/L 09/19/2024 10:34 PM EDT [facility] Blood Venous blood / Unknown 09/19/2024 9:04 PM EDT 09/19/2024 9:04 PM EDT Marie Lopez MD LAB BLOOD ORDERABLES Final Resul t [facility] [address] [place] [address], * Syphilis Total (Unknown Syphilis Status) (09/19/2024 2:49 AM EDT) Only the most recent of2 resultswithin the time period is included. [facility] SYPHILIS TOTAL <0.2 <=0.8 AI 09/21/2024 3:30 PM EDT [facility] Blood Venous blood / Unknown 09/19/2024 2:49 AM EDT 09/19/2024 2:49 AM EDT Narrative [facility] - 09/21/2024 3:30 PM EDT NON REACTIVE No serologic evidence of infection to Treponema pallidum. Repeat testing may be considered in patients with suspected acute or primary syphilis in 2 to 4 weeks. Lexus Byrd MD LAB BLOOD ORDERABLES Final Re sult [facility] [address] [place] [address], * (ABNORMAL) CBC auto differential (09/19/2024 2:49 AM EDT) Only the most recent of4 resultswithin the time period is included. [facility] WBC 9.2 4 - 11 x10E9/L 09/19/2024 3:48 AM EDT [facility] RBC Count 3.80 3.8 - 5.2 X10E12/L 09/19/2024 3:48 AM EDT [facility] Hemoglobin 10.3(L) 11.7 - 15.5 g/dL 09/19/2024 3:48 AM EDT [facility] Hematocrit 30.4(L) 35 - 47 % 09/19/2024 3:48 AM EDT [facility] MCV 80 80 - 100 fL 09/19/2024 3:48 AM EDT [facility] MCH 27.2 27 - 34 pg 09/19/2024 3:48 AM EDT [facility] MCHC 34.0 32 - 36 g/dL 09/19/2024 3:48 AM EDT [facility] RDW 13.6 11.5 - 15 % 09/19/2024 3:48 AM EDT [facility] Platelet Count 231 150 - 450 X10E9/L 09/19/2024 3:48 AM EDT [facility] MPV 8.4 7 - 12 fL 09/19/2024 3:48 AM EDT [facility] Neutrophils Relative 74.9 % 09/19/2024 3:48 AM EDT [facility] Lymphocytes Relative 20.2 % 09/19/2024 3:48 AM EDT [facility] Monocytes Relative 4.3 % 09/19/2024 3:48 AM EDT [facility] Eosinophils Relative 0.3 % 09/19/2024 3:48 AM EDT [facility] Basophils Relative 0.3 % 09/19/2024 3:48 AM EDT [facility] Neutrophils Absolute (A) 6.9(H) 1.5 - 6.6 10*3/uL 09/19/2024 3:48 AM EDT [facility] Lymphocytes Absolute 1.9 1.0 - 3.5 10*3/uL 09/19/2024 3:48 AM EDT [facility] Monocytes Absolute 0.4 0.0 - 0.9 10*3/uL 09/19/2024 3:48 AM EDT [facility] Eosinophils Absolute 0.0 0.0 - 0.4 10*3/uL 09/19/2024 3:48 AM EDT [facility] Basophils Absolute 0.0 0.0 - 0.2 10*3/uL 09/19/2024 3:48 AM EDT [facility] Differential Type AUTOMATED DIFFERENTIAL 09/19/2024 3:48 AM EDT [facility] Blood Venous blood / Unknown 09/19/2024 2:49 AM EDT 09/19/2024 2:50 AM EDT us Lexus Byrd MD LAB BLOOD ORDERABLES Final Re sult [facility] [address] [place] [address], * (ABNORMAL) Comprehensive metabolic panel (09/19/2024 2:49 AM EDT) Only the most recent of2 resultswithin the time period is included. SODIUM 138 134 - 146 mmol/L 09/19/2024 3:57 AM EDT [facility] POTASSIUM 3.5 3.5 - 5.0 mmol/L 09/19/2024 3:57 AM EDT [facility] CHLORIDE 106 98 - 109 mmol/L 09/19/2024 3:57 AM EDT [facility] CARBON DIOXIDE 25 22 - 32 mmol/L 09/19/2024 3:57 AM EDT [facility] ANION GAP 7 5 - 15 mmol/L 09/19/2024 3:57 AM EDT [facility] BLOOD UREA NITROGEN 5 5 - 23 mg/dL 09/19/2024 3:57 AM EDT [facility] CREATININE 0.45 0.40 - 1.00 mg/dL 09/19/2024 3:57 AM EDT [facility] Comment:METHOD TRACEABLE TO IDMS STANDARD GLUCOSE 96 65 - 99 mg/dL 09/19/2024 3:57 AM EDT [facility] CALCIUM 8.1(L) 8.5 - 10.5 mg/dL 09/19/2024 3:57 AM EDT [facility] TOTAL PROTEIN 5.5(L) 6.0 - 8.0 g/dL 09/19/2024 3:57 AM EDT [facility] ALBUMIN 3.0(L) 3.2 - 5.3 g/dL 09/19/2024 3:57 AM EDT [facility] ALKALINE PHOSPHATASE 121 39 - 130 U/L 09/19/2024 3:57 AM EDT [facility] AST 11 <=41 U/L 09/19/2024 3:57 AM EDT [facility] ALT 5 <=31 U/L 09/19/2024 3:57 AM EDT [facility] BILIRUBIN,TOTAL 0.4 0.3 - 1.2 mg/dL 09/19/2024 3:57 AM EDT [facility] EGFR Non-Race Dependent >90 >=60 ml/min/1.7 3sq.m 09/19/2024 3:57 AM EDT [facility] Comment: Reported eGFR is based on the CKD-EPI 2020 equation that does not use a race coefficient. Blood Venous blood / Unknown 09/19/2024 2:49 AM EDT 09/19/2024 2:49 AM EDT Lexus Byrd MD LAB BLOOD ORDERABLES Final Re sult [facility] [address] [place] [address], * (ABNORMAL) POCT Nursing Urine Macroscopic UA (09/18/2024 7:24 PM EDT) Only the most recent of2 resultswithin the time period is included. POC Urine Specific [place] 1.015 1.010, 1.015, 1.020, 1.025 09/18/2024 7:20 PM EDT [facility] POC Urine Leukocyte Esterase Moderate(A) Negative 09/18/2024 7:20 PM EDT [facility] POC Urine Nitrite Negative Negative 09/18/2024 7:20 PM EDT [facility] POC Urine pH 7.0 5.0, 6.0, 6.5, 7.0, 7.5, 8.0, 8.5, 5.5 09/18/2024 7:20 PM EDT [facility] POC Urine Protein Negative Negative 09/18/2024 7:20 PM EDT [facility] POC Urine Glucose Negative Negative 09/18/2024 7:20 PM EDT [facility] POC Urine Ketones 80 mg/dL(A) Negative 09/18/2024 7:20 PM EDT [facility] POC Urine Urobilinogen 0.2 E.U./dL 09/18/2024 7:20 PM EDT [facility] POC Urine Bilirubin Negative Negative 09/18/2024 7:20 PM EDT [facility] POC Urine Blood/HGB Negative Negative 09/18/2024 7:20 PM EDT [facility] Urine 09/18/2024 7:24 PM EDT 09/18/2024 7:20 PM EDT us Saroj Carreon DO POINT OF CARE TEST ORDER DONELL Final Result [facility] [address] [place] [address], * Drug Screen, Urine (09/18/2024 6:52 PM EDT) Only the most recent of2 resultswithin the time period is included. AMPHETAMINE/METHAMP Negative Negative 09/18 7:21 PM EDT [facility] Comment:AMPH/METH screening cut off = 1000 ng/mL COCAINE METABOLITE Negative Negative 2024 7:21 PM EDT [facility] Comment:Cocaine screening cu t off value = 300 ng/mL ECSTASY Negative Negative 09/18/2024 7:21 PM EDT [facility] Comment:Ecstasy screening cu t off value = 500 ng/mL METHADONE Negative Negative 09/18/2024 7:21 PM EDT [facility] Comment:Methadone screening cut off value = 300 ng/mL. OPIATES Negative Negative 09/18/2024 7:21 PM EDT [facility] Comment: Opiates screening cut off value = 300 ng/mL This test is used for the detection of codeine, hydrocodone (>1000 ng/mL), morphine and hydromorphone (>900 ng/mL) in urine. OXYCODONE Negative Negative 09/18/2024 7:21 PM EDT [facility] Comment: Oxycodone screening cut off value = 300 ng/mL This test is used for the detection of oxycodone and oxymorphone in urine. PHENCYCLIDINE Negative Negative 09/18/2024 7:21 PM EDT [facility] Comment:Phencyclidine screen ing cut off value = 25 ng/mL CANNABINOIDS Negative Negative 09/18/2024 7:21 PM EDT [facility] Comment:Cannabinoids/THC scr eening cut off value = 50 ng/mL Urine Barbiturates Negative Negative 2024 7:21 PM EDT [facility] Comment:Barbiturates screeni ng cut off value = 200 ng/mL BENZODIAZEPINES Negative Negative 7:21 PM EDT [facility] Comment:Benzodiazepines scre ening cut off value = 200 ng/mL Urine Urine specimen collection, clean catch / Unknown Collection / Unknown 09/18/2024 6:52 PM EDT 09/18/2024 7:00 PM EDT us Saroj Carreon DO URINE ORDERABLES Final R esult [facility] [address] [place] [address], * Light Blue Top (09/18/2024 4:55 PM EDT) Extra Tube Auto Resulted 09/18/2024 6:01 PM EDT [facility] Blood Venous blood / Unknown 09/18/2024 4:55 PM EDT 09/18/2024 5:00 PM EDT [employer] DO LAB BLOOD ORDERABLES Fin al Result Performing Organization Address City/[facility]/ZIP Co de Phone Number [facility] [address] [place] [address], [place] * (ABNORMAL) Iron and TIBC (09/18/2024 4:55 PM EDT) IRON 62 50 - 170 ug/dL 09/18/2024 8:57 PM EDT [facility] TRANSFERRIN 400(H) 168 - 336 mg/dL 09/18/2024 8:57 PM EDT [facility] IRON BINDING 560(H) 250 - 425 ug/dL 09/18/2024 8:57 PM EDT [facility] IRON SATURATION 11(L) 15 - 50 % SATURATION 09/18/2024 8:57 PM EDT [facility] Blood Venous blood / Unknown 09/18/2024 4:55 PM EDT 09/18/2024 5:00 PM EDT [employer] LAB BLOOD ORDERABLES Fin al Result Performing Organization Address City/[facility]/ZIP Co de Phone Number [facility] [address] [place] [address], [place] [phone] * Ethanol (09/18/2024 4:55 PM EDT) ETHANOL <0.010 <=0.080 g/dL 09/18/2024 5:21 PM EDT [facility] Comment: This report is intended for use in clinical monitoring or management of patients. Blood 09/18/2024 4:55 PM EDT 09/18/2024 5:00 PM EDT us [employer] DO LAB BLOOD ORDERABLES Fin al Result Performing Organization Address City/[facility] Co de Phone Number [address] [place] [address], [place] * (ABNORMAL) Acetaminophen level (09/18/2024 4:55 PM EDT) ACETAMINOPHEN 6.6(L) 10.0 - 30.0 ug/mL 09/18/2024 5:21 PM EDT [facility] Blood 09/18/2024 4:55 PM EDT 09/18/2024 5:00 PM EDT Narrative [facility] - 09/18/2024 5:21 PM EDT Reference ranges are for therapeutic limits. us [employer] DO LAB BLOOD ORDERABLES Fin al Result Performing Organization Address [facility] Co de Phone Number [address] [place] [address], [place] * Salicylate level (09/18/2024 4:55 PM EDT) SALICYLATE <4.0 2.0 - 25.0 mg/dL 09/18/2024 5:21 PM EDT [facility] Blood 09/18/2024 4:55 PM EDT 09/18/2024 5:00 PM EDT Narrative [facility] - 09/18/2024 5:21 PM EDT Reference ranges are for therapeutic limits. us [employer] DO LAB BLOOD ORDERABLES Fin al Result Performing Organization Address City/[facility] Co de Phone Number [address] [place] [address], [place] * ECG 12 lead (09/18/2024 4:43 PM EDT) 09/18/2024 4:43 PM EDT Narrative [facility] - 09/18/2024 9:43 PM EDT Saroj Carreon DO ECG ORDERABLES Final Re sult Performing Organization Address [facility]/ZIP Co de Phone Number YINKA * Critical Care (09/18/2024 4:27 PM EDT) [...] post 50g load (09/01/2024 3:45 PM EDT) [facility] GLUCOSE, 1HR POST 50GM LOAD 126 65 - 139 mg/dL 09/01/2024 10:25 PM EDT [facility] Blood Venous blood / Unknown Venipuncture / Unknown 09/01/2024 3:45 PM EDT 09/01/2024 4:30 PM EDT us Zhane Bella DO LAB BLOOD ORDERABLES Final Resu lt [facility] [address] [place] [address], [place] [phone] * Hepatitis C(HCV) Ab w/ Reflex to PCR (07/27/2024 3:10 PM EDT) Anti HCV w/ PCR reflex Non-Reacti ve Non-Reacti ve^Non-[place] ctive 07/28/2024 12:32 AM EDT [facility] Comment: NEW TEST METHOD NOTE If recent infection suspected, recommend repeat testing (>2 months). Hucpjb-nq-hyiaaj ratio is <1.00. Serum / Unknown 07/27/2024 3 :10 PM EDT 07/27/2024 3:12 PM EDT us Zhane Bella DO LAB BLOOD ORDERABLES Final Resu lt [facility] [address] [place] [address] * AFP Single Marker Scrn, Maternal, Serum (07/27/2024 3:10 PM EDT) AFP Single Marker Scrn, Maternal, Serum SEE COMMENTS 07/29/2024 03:00 PM 07/29/2024 4:00 PM EDT [facility] Comment: NOTE Test Result Flag Unit RefValue AFP Single Marker SCRN, Maternal, S Results Summary Normal risk Neural tube defect risk estimate 1/2,200 AFP 124.0 ng/mL AFP MoM 1.51 MoM [...] repeat testing Initial testing Physician Phone Number [phone] GENERAL TEST INFORMATION See Note This screening [...] developed and its performance characteristics determined by [facility] in a manner consistent with CLIA requirements. This test has not been cleared or approved by the U.S. Food and Drug Administration. Test Performed by: [facility] [place] [address] Warehouse Specialist: Gamaliel Au Ph.D.; CLIA# [id number] Serum / Unknown 07/27/2024 3 :10 PM EDT 07/27/2024 3:12 PM EDT Zhane Bella DO LAB BLOOD ORDERABLES Final Resu lt [facility] [address] [place] [address] * Rubella antibody, IgG (07/27/2024 3:10 PM EDT) Rubella IgG 15 IU/mL 07/28/2024 11:59 AM EDT [facility] Comment: Interpretation-------- <8 NEGATIVE-considered Not Immune 8-9 EQUIVOCAL-consider retesting with new specimen >9 POSITIVE-considered Immune Serum / Unknown 07/27/2024 3 :10 PM EDT 07/27/2024 3:12 PM EDT us Zhane R Jena DO LAB BLOOD ORDERABLES Final Resu lt [facility] [address], [address] [place] [address] * Hepatitis B surface antigen (07/27/2024 3:10 PM EDT) [facility] Hepatitis B Surface Ag Non-Reacti ve Non-Reacti ve^Non-[place] ctive 07/28/2024 12:29 AM EDT [facility] Comment:NEW TEST METHOD Serum / Unknown 07/27/2024 3 :10 PM EDT 07/27/2024 3:12 PM EDT us Zhane R Jena DO LAB BLOOD ORDERABLES Final Resu lt [facility] [address] [place] [address] * TSH (07/27/2024 3:10 PM EDT) [facility] TSH 1.68 0.49 - 4.67 uIU/mL 07/27/2024 10:23 PM EDT [facility] PLASMA 07/27/2024 3:10 PM EDT 07/27/2024 3:12 PM EDT Zhane R Jena DO LAB BLOOD ORDERABLES Final Resu lt [facility] [address] [place] [address] * Hemoglobin A1c (07/27/2024 3:10 PM EDT) [facility] Hemoglobin A1C 4.6 4.4 - 5.6 % 07/27/2024 10:13 PM EDT [facility] Comment: NOTE ADA Guidelines Result HgbA1c Normal : less than 5.7 % Prediabetes : 5.7 % to 6.4 % Diabetes : > 6.4 % Use with caution in patients with abnormal hemoglobin variants as the half-life of red blood cells and in vivo glycation rates are affected. Average glucose 85 mg/dL 10:13 PM EDT [facility] PLASMA 07/27/2024 3:10 PM EDT 07/27/2024 3:12 PM EDT us Zhane Bella DO LAB BLOOD ORDERABLES Final Resu lt [facility] [address], [address] [place] [address] from Last 3 Months Insurance [employer]ICA[employer] [facility] MEDICAID Advance Directives * Full Code (Latest [...] 7:11 AM 12/23/2022 7:06 PM Care Teams Insulation Installer Relationship Specialty Start Date End Date No Pcp, [place] [address] PCP - General Family Medicine 09/01/24
--- OUTSIDE RECORDS SUMMARY | 2024-10-23 13:03 | XMS_ITS | Encounter Summary ---
Author Organization [facility] Address [address] [place] [address] Care Team Providers Care Sludge Control Attendant Name Role Phone Unavailable Primary Care Provider Unavailabl e Encounter Details Date Type Department Care Team (Late Contact Info) Description 12/17/2023 Abstract [facility] OB [address] [place] [phone] Marie Cuellar LPN [address] [place] [phone] Social History Tobacco Use Types Packs/Day Years [...] Description 10/28/2024 2:30 PM EDT Routine [facility] OB [address] [place] [phone] Osmany Bella DO [address] [facility] [address] [place], [place] [id number] documented as of this encounter Visit Diagnoses Not on filedocumented in this encounter
--- OUTSIDE RECORDS SUMMARY | 2024-10-23 13:03 | XMS_ITS | Encounter Summary ---
Author Organization [facility] Address [address] [place] [address] Care Team Providers Care Cement Cutter Name Role Phone Unavailable Primary Care Provider Unavailabl e Encounter Details Date Type Department Care Team (Late Contact Info) Description 12/13/2023 Abstract [facility] OB [address] [place] [phone] Isadora Martin, CNM [address] [place], [place] [phone] Social History Tobacco Use Types Packs/Day Years Used Date Smoking Tobacco: Never Assessed Comments Yes Sex and Gender Information Value Date Recorded Sex Assigned at Not on file Legal Sex Female 11:47 PM EDT Gender Identity Not on file Sexual Orientation Not on file documented as of this encounter Plan of Treatment Upcoming Encounters Date Type Department Care Team ([facility] Contact Info) Description 10/28/2024 2:30 PM EDT Routine [facility] [address] [facility] [place] [phone] Osmany Bella DO [address] [facility] [place] [address] documented as of this encounter Visit Diagnoses Not on filedocumented in this encounter
--- OUTSIDE RECORDS SUMMARY | 2024-10-23 13:04 | XMS_ITS | Encounter Summary ---
Author Organization [employer] Address [id number] [address] [place] [address] Care Team Providers Care Small Offset Printer Name Role Phone No Pcp, No Pcp Primary Care Provider Unavailabl e Encounter Details Date Type Department Care Team (Late st Contact Info) Description 10/05/2020 Telephone [facility] [address] [place] [address] [place] [address] Cooper Goff CMA Social History [...] documented as of this encounter Care Teams Small Offset Printer Relationship Specialty Start Date End Date No Pcp, [place] [address] PCP - General Family Medicine 09/01/24 documented as of this encounter
--- OUTSIDE RECORDS SUMMARY | 2024-10-23 13:04 | XMS_ITS | Encounter Summary ---
Author Organization [facility] Address [address] [place] [address] Care Team Providers Care French Binder Name Role Phone Unavailable Primary Care Provider Unavailabl e Reason for Visit * Reason Comments Med Refill Encounter Details Date Type Department Care Team (Late Contact Info) Description 12/15/2023 Refill [facility] OB [address] [place] [phone] Osmany Bella [facility] [place], [facility]11 Nausea Social History Tobacco Use Types Packs/Day [...] PM EDT Routine [facility] [address] [place] [address] Osmany Bella, DO [address] [facility] [place] [address] documented as of this encounter Visit Diagnoses Diagnosis Nausea Nausea alone documented in this encounter
--- OUTSIDE RECORDS SUMMARY | 2024-10-23 13:04 | XMS_ITS | Encounter Summary ---
Author Organization [facility] Address [address] [place] [facility] [place] [address] Care Team Providers Care Atv Mechanic Name Role Phone Unavailable Primary Care Provider Unavailabl e Encounter Details Date Type Department Care Team (Late Contact Info) Description 08/28/2024 Results Follow-Up [facility] [address] [place] [address] Marie Cuellar LPN [address] [phone] Social History Tobacco Use Types Packs/Day Years [...] Upcoming Encounters Date Type Department Care Team ([facility] Contact Info) Description 10/28/2024 2:30 PM EDT Routine [facility] OB [address] [facility] [place] [address] Osmany Bella, DO [address] [facility] [address] [place], [id number] documented as of this encounter Visit Diagnoses Not on filedocumented in this encounter
--- OUTSIDE RECORDS SUMMARY | 2024-10-23 13:04 | XMS_ITS | Encounter Summary ---
Author Organization [facility] Address [address] [facility] [place] [address] Care Team Providers Care Harbormaster Name Role Phone Unavailable Primary Care Provider Unavailabl e Encounter Details Date Type Department Care Team (Late Contact Info) Description 11/27/2022 Abstract [facility] OB [address] [facility] [place] [address] Mya Kaplan PA [address] [place] [address] Social History Tobacco Use Types Packs/Day [...] Description 10/28/2024 2:30 PM EDT Routine [facility] OB [address] [facility] [address] [place] [address] Osmany Bella DO [address] [place] [address] documented as of this encounter Visit Diagnoses Not on filedocumented in this encounter
--- OUTSIDE RECORDS SUMMARY | 2024-10-23 13:04 | XMS_ITS | Encounter Summary ---
Author Organization [employer] Address [id number] [place] [address] Care Team Providers Care Air Motor Repairer Name Role Phone No Pcp, No Pcp Primary Care Provider Unavailabl e Encounter Details Date Type Department Care Team (Late st Contact Info) Description 05/17/2021 Orders Only [facility] [address] [place] [address] [place] [address] Mona Delvalle CMA Body aches; [...] often do you attend chur ch or oriental orthodox services? Never 03/26/2021 Do you belong to any clubs o r organizations such as faith groups, unions, fraternal or athletic groups, or [...] Answer Date Recorded Total Score 13 03/26/2021 [facility] of Occupat ional Health - Occupational Stress [...] Negative Negative [facility] 05/11/2021 Loretta Brice APRN-[facility] MICROBIOLOGY - GENE RAL ORDERABLES Final Result [...] documented as of this encounter Care Teams Air Motor Repairer Relationship Specialty Start Date End Date No Pcp, [place] [address] PCP - General Family Medicine 09/01/24 documented as of this encounter
--- OUTSIDE RECORDS SUMMARY | 2024-10-23 13:04 | XMS_ITS | Encounter Summary ---
Author Organization [facility] Address [address] [facility] [place] [address] Care Team Providers Care Director Inbound Sales Name Role Phone Unavailable Primary Care Provider Unavailabl e Encounter Details Date Type Department Care Team (Late Contact Info) Description 11/02/2022 Abstract [facility] OB [address] [place] [address] Osmany Bella DO [facility] [place] [address] Social History Tobacco Use Types Packs/Day [...] [facility] OB [address] [place] [address] Osmany Bella DO [facility] [place] [address] documented as of this encounter Visit Diagnoses Not on filedocumented in this encounter
--- OUTSIDE RECORDS SUMMARY | 2024-10-23 13:04 | XMS_ITS | Encounter Summary ---
Author Organization [facility] Address [address] [facility] [place] [address] Care Team Providers Care Pottery Decoration Designer Name Role Phone Unavailable Primary Care Provider Unavailabl e Encounter Details Date Type Department Care Team (Late st Contact Info) Description 07/07/2024 Abstract [facility] OB [address] [place] [address] Osmany Bella, DO [address] [place], [facility]11 Social History Tobacco Use Types Packs/Day Years [...] Description 10/28/2024 2:30 PM EDT Routine [facility] OB [address] [place] [address] Osmany Bella, DO [address] [place] [address] documented as of this encounter Visit Diagnoses Not on filedocumented in this encounter
--- OUTSIDE RECORDS SUMMARY | 2024-10-23 13:04 | XMS_ITS | Encounter Summary ---
Author Organization [facility] Address [address] [place] [address] Care Team Providers Care Pmo Project Manager Name Role Phone Unavailable Primary Care Provider Unavailabl e Encounter Details Date Type Department Care Team ([facility] Contact Info) Description 12/10/2022 External Result Encounter [facility] OB [address] [place] [address] Osmany Bella DO [facility] [place] [address] Social History Tobacco Use [...] Upcoming Encounters Date Type Department Care Team ([facility] Contact Info) Description 10/28/2024 2:30 PM EDT Routine [facility] OB [address] [place] [address] Osmany Bella DO [address] [place] [place], [place] [phone] documented as of this encounter Procedures Procedure [...] Final 12/10/2022 15:09) PATIENT INFO: ID #: [id number] : [birth year] (22 yrs)(F) Name: GEORGIE ROTH Visit Date: 12/10/2022 11:43 ESSIE PERFORMED BY: Attending: Marisel Charles MD Performed By: Pearl Hogue RDMS Referred By: Osmany Frances. Address: [address] [place], [place] [address] [address] Location: [facility] SERVICE(S) PROVIDED: Comprehensive Anatomic Survey Twins [id number] INDICATIONS: Screening for anatomic survey Z36.89 Twin [...] document Interventr. Septum: Not well visualized Cardiac [place]: Appears normal Diaphragm: Not well visualized 3 [...] document Interventr. Septum: Could not document Cardiac [place]: Appears normal Diaphragm: Could not document 3 [...] Signed Final Report 12/10/2022 15:09 IMPRESSION: 1. [place] chorionic Di amniotic Twin Gestation. 2. Twin [...] Circumvallate placenta visualized. RECOMMENDATIONS: 1. Please see [facility] consultation documentation from today's encounter. 2. Patient is scheduled in two weeks for TTTS protocol. 3. Patient is scheduled in 4 weeks for anatomic surveys, heart ECHOs, and cervical length. 4. Subsequent follow up or other follow up as clinically determined by primary OB provider unless otherwise specified by [facility]. 5. Results forwarded to ordering provider so they can follow up with the patient as necessary. The copy-to physician of this order is OSMANY Goodwin The ordering physician of this order is MARISEL Vázquez Procedure Note Radiology, RadiologistMD - 12/10/2022 [facility] (Signed Final 12/10/2022 15:09) PATIENT INFO: ID #: [id number] : [birth year] (22 yrs)(F) Name: GEORGIE ROTH Visit Date: 12/10/2022 11:43 ESSIE PERFORMED BY: Attending: Marisel Charles MD Performed By: Pearl Hogue RDMS Referred By: Osmany Bella DO Ref. Address: [address] [place] [address] [place] [address] Location: [facility] SERVICE(S) PROVIDED: Comprehensive Anatomic Survey [place] [phone] INDICATIONS: Screening for anatomic survey Z36.89 Twin [...] document Interventr. Septum: Not well visualized Cardiac [place]: Appears normal Diaphragm: Not well visualized 3 [...] document Interventr. Septum: Could not document Cardiac [place]: Appears normal Diaphragm: Could not document 3 [...] Signed Final Report 12/10/2022 15:09 IMPRESSION: 1. [place] chorionic Di amniotic Twin Gestation. 2. Twin [...] Circumvallate placenta visualized. RECOMMENDATIONS: 1. Please see [facility] consultation documentation from today's encounter. 2. Patient [...]
--- OUTSIDE RECORDS SUMMARY | 2024-10-23 13:04 | XMS_ITS | Encounter Summary ---
Author Organization [facility] Address [address] [place] [address] Care Team Providers Care Manager Environmental Name Role Phone Unavailable Primary Care Provider Unavailabl e Encounter Details Date Type Department Care Team (Late st Contact Info) Description 11/22/2023 Clinisync Result Encounter [facility] External Department Unsolicited Zhane Bella, DO [address] [place] [address] Social History Tobacco Use Types Packs/Day Years [...] PM EDT Routine [facility] OB [address] [place] [phone] Zhane Bella, DO [address] [place] [address] documented as of this encounter Procedures Procedure Name Priority Date/Time Associated Diagnosis Comments US RENAL BI 11/22/2023 3:40 PM EDT documented in this encounter Results * US RENAL BI (11/22/2023 3:40 PM EDT) Anatomical Region Laterality Modality Other 11/22/2023 3:40 PM EDT Narrative 11/22/2023 3:42 [place] [address] Ultrasound Report Signed Patient: GEORGIE POND MR#: [id number] : 2000 Acct:[id number] Age/Sex: 23 / F ADM Date: Loc: [facility] 251-[address]: Zhane Bella D.O. Ordering Physician: Zhane Bella D.O. Date of Service: 11/22/23 Procedure(s): US renal BI Accession Number(s): [id number] cc: Zhane Bella D.O.; Physician,Non-Staff [place] [address] Patient Name: GEORGIE POND MRN: [id number] date: 2000 Sex: F Assigned Patient Location: [facility] Current Patient Location: [facility] Accession/Order Number: [id number] Exam Date: 11/22/2023 14:20 Report Date: 11/22/2023 [...] Signed By: 11/22/23 1542 DD/ 1540 TD/TT: New Home Sales Consultant: Procedure Note Radiology, Radiologist, MD - 11/22/2023 [place] [address] Ultrasound Report Signed Patient: GEORGIE POND TMR#: [id number] : 2000Acct:[id number] Age/Sex: 23 / FADM Date: Loc: [facility] 251-[address]: Zhane Bella D.O. Ordering Physician: Zhane Bella D.O. Date of Service: 11/22/23 Procedure(s): US renal BI Accession Number(s): [id number] cc: Zhane Bella D.O.; Physician,Non-Staff [place] [phone] Patient Name: GEORGIE POND MRN: [id number] date: 2000 Sex: F Assigned Patient Location: [facility] Current Patient Location: [facility] Accession/Order Number: [id number] Exam Date: 11/22/2023 14:20 Report Date: 11/22/2023 [...] M.D. Signed By:11/22/23 1542 DD/ 1540 TD/TT: New Home Sales Consultant: us Zhane Monahano DO [facility] Final Result documented in this encounter Visit Diagnoses Not on filedocumented in this encounter
--- OUTSIDE RECORDS SUMMARY | 2024-10-23 13:04 | XMS_ITS | Encounter Summary ---
Author Organization [employer] Address [facility] [place] [id number] [address] [place] [address] Care Team Providers Care Inside Phone Sales Name Role Phone No Pcp, No Pcp Primary Care Provider Unavailabl e Encounter Details Date Type Department Care Team (Late st Contact Info) Description 05/23/2021 Telephone [facility] [address] [place] [address] Mona Delvalle CMA Social History [...] often do you attend chur ch or rastafari services? Never 03/26/2021 Do you belong to any clubs o r organizations such as baptism groups, unions, fraternal or athletic groups, or [...] Answer Date Recorded Total Score 5 05/25/2021 [facility] [place] of Occupat ional Health - Occupational Stress [...] documented as of this encounter Care Teams Inside Phone Sales Relationship Specialty Start Date End Date No Pcp, No Pcp RYLIE [place] [address] PCP - General Family Medicine 09/01/24 documented as of this encounter
--- OUTSIDE RECORDS SUMMARY | 2024-10-23 13:04 | XMS_ITS | Encounter Summary ---
Author Organization [facility] Address [address] [facility] [place] [address] Care Team Providers Care Industrial Psychology Teacher Name Role Phone Unavailable Primary Care Provider Unavailabl e Encounter Details Date Type Department Care Team (Late Contact Info) Description 07/07/2024 External Result Encounter [facility] [address] [place] [address] Osmany Bella, DO [address] [place], [facility]11 Social History Tobacco Use Types Packs/Day Years [...] 2:30 PM EDT Routine [place] [address] Osmany Bella, DO [address] [place], [facility]11 documented as of this encounter Procedures Procedure [...] CBC auto differential (09/01/2024 3:48 PM EDT) WHITE BLOOD CELL COUNT, WBC 9.0 4 [...] DIFFERENTIAL [facility] Comment: PERFORMED AT [facility] [address],[place] [address] 09/01/2024 3:48 PM EDT 09/01/2024 9:40 PM EDT us Osmany Jena DO LAB BLOOD ORDERABLES Final Resul t [facility] * (ABNORMAL) RECURRENT VAGINITIS (HTRX) (08/12/2024 4:11 PM EDT) [facility] ATOPOBIUM VAGINAE 23.789(A) 19.961 - 24.689 ppm 08/13/2024 6:52 AM EDT [facility] ATOPOBIUM VAGINAE Detected(A) 19.961 - 24.689 ppm 08/13/2024 6:52 AM EDT [facility] BVAB 2,3 (BACTERIAL VAGINOSIS ASSOCIATED BACTERIA 2, 3); MOBILUNCUS SPP 20.226(A) 19.961 - 24.689 ppm 08/13/2024 6:52 AM EDT [facility] BVAB 2,3 (BACTERIAL VAGINOSIS ASSOCIATED BACTERIA 2, 3); MOBILUNCUS SPP Detected(A) 19.961 - 24.689 ppm 08/13/2024 6:52 AM EDT [facility] MIGUEL ALBICANS, PARAPSILOSIS, TROPICALIS 0.000 19.961 - 30.770 ppm 08/13/2024 6:52 AM EDT [facility] MIGUEL ALBICANS, PARAPSILOSIS, TROPICALIS Not Detected 19.961 - 30.770 ppm 08/13/2024 6:52 AM EDT [facility] MIGUEL GLABRATA 0.000 23.000 - 32.138 ppm 08/13/2024 6:52 AM EDT [facility] MIGUEL GLABRATA Not Detected 23.000 - 32.138 ppm 08/13/2024 6:52 AM EDT [facility] MIGUEL KRUSEI 0.000 23.000 - 32.271 ppm 08/13/2024 6:52 AM EDT [facility] MIGUEL KRUSEI Not Detected 23.000 - 32.271 ppm 08/13/2024 6:52 AM EDT [facility] CHLAMYDIA TRACHOMATIS 0.000 23.000 - 31.467 ppm 08/13/2024 6:52 AM EDT [facility] CHLAMYDIA TRACHOMATIS Not Detected 23.000 - 31.467 ppm 08/13/2024 6:52 AM EDT [facility] GARDNERELLA VAGINALIS 26.712(A) 19.961 - 24.689 ppm 08/13/2024 6:52 AM EDT [facility] GARDNERELLA VAGINALIS Detected(A) 19.961 - 24.689 ppm 08/13/2024 6:52 AM EDT [facility] MEGASPHAERA (TYPES 1, 2) 15.626(A) 19.961 - 24.689 ppm 08/13/2024 6:52 AM EDT [facility] MEGASPHAERA (TYPES 1, 2) Detected(A) 19.961 - 24.689 ppm 08/13/2024 6:52 AM EDT [facility] NEISSERIA GONORRHOEAE 0.000 23.000 - 32.117 ppm 08/13/2024 6:52 AM EDT [facility] NEISSERIA GONORRHOEAE Not Detected 23.000 - 32.117 ppm 08/13/2024 6:52 AM EDT [facility] TRICHOMONAS VAGINALIS 0.000 23.000 - 32.119 ppm 08/13/2024 6:52 AM EDT [facility] TRICHOMONAS VAGINALIS Not Detected 23.000 - 32.119 ppm 08/13/2024 6:52 AM EDT [facility] MYCOPLASMA GENITALIUM 0.000 19.961 - 24.689 ppm 08/13/2024 6:52 AM EDT [facility] MYCOPLASMA GENITALIUM Not Detected 19.961 - 24.689 ppm 08/13/2024 6:52 AM EDT [facility] ERMB, C; MEFA 23.273(A) 23.000 - 27.611 ppm 08/13/2024 6:52 AM EDT [facility] ERMB, C; MEFA Detected(A) 23.000 - 27.611 ppm 08/13/2024 6:52 AM EDT [facility] TET B, TET M 27.416(A) 23.000 - 27.778 ppm 08/13/2024 6:52 AM EDT [facility] TET B, TET M Detected(A) 23.000 - 27.778 ppm 08/13/2024 6:52 AM EDT [facility] Tissue 08/12/2024 4:11 PM EDT 08/13/2024 1:36 AM EDT us Osmany Bella DO LAB BLOOD ORDERABLES Final Resul t [facility] [address] [place] [place] [address] * AFP SINGLE MARKER SCRN, MATERNAL,SERUM ([facility]) (07/27/2024 3:10 PM EDT) Pathologist [facility] AFP SINGLE MARKER SCRN, MATERNAL, SERUM SEE [...] repeat testing Initial testing Physician Phone Number [phone] GENERAL TEST INFORMATION See Note This screening [...] developed and its performance characteristics determined by [facility] in a manner consistent with CLIA requirements. This test has not been cleared or approved by the U.S. Food and Drug Administration. Test Performed by: [facility] - [facility] [address] [place] [id number] [employer]: Gamaliel Au Ph.D.; CLIA# [id number] PERFORMED AT [address] [place] [address] 07/27/2024 3:10 PM EDT 07/27/2024 3:12 PM EDT Osmany Jena DO LAB BLOOD ORDERABLES Final Resul t Performing Organization Address City/[facility]/ZIP Co de Phone Number [facility] * SYPHILIS TOTAL ([facility]) (07/27/2024 3:10 PM EDT) Pathologist [facility] SYPHILIS TOTAL <0.2 0.0 - 0.8 AI [facility] Comment: NON REACTIVE No serologic evidence of infection to Treponema pallidum (syphilis). Repeat testing may be considered in patients with suspected acute or primary syphilis in 2 to 4 weeks. PERFORMED AT [address], [place] [address] 07/27/2024 3:10 PM EDT 07/27/2024 3:12 PM EDT Osmany Jena DO LAB BLOOD ORDERABLES Final Resul t Performing Organization Address [facility] Co de Phone Number [facility] * Rubella antibody, IgG (07/27/2024 3:10 PM EDT) [facility] RUBELLA IGG 15 IU/mL [facility] Comment: Interpretation-------- <8 NEGATIVE-considered Not Immune 8-9 EQUIVOCAL-consider retesting with new specimen >9 POSITIVE-considered Immune PERFORMED AT [address],[place] [address] 07/27/2024 3:10 PM EDT 07/27/2024 3:12 PM EDT Osmany Jena DO LAB BLOOD ORDERABLES Final Resul t Performing Organization Address City/[facility]/ZIP Co de Phone Number [facility] * Hepatitis C antibody (07/27/2024 3:10 PM EDT) Pathologist [facility] ANTI HCV W/PCR REFLEX Non-Reacti ve Non-Reacti ve [facility] Comment: NEW TEST METHOD NOTE If recent infection suspected, recommend repeat testing (>2 months). Kpslms-ed-aziiio ratio is <1.00. PERFORMED AT [address],[place] [address] 07/27/2024 3:10 PM EDT 07/27/2024 3:12 PM EDT Osmany Jena DO LAB BLOOD ORDERABLES Final Resul t [facility] * Hepatitis B surface antigen (07/27/2024 3:10 PM EDT) [facility] HEPATITIS B SURG AG Non-Reacti ve Non-Reacti ve [facility] Comment: NEW TEST METHOD PERFORMED AT [address],[place] [address] 07/27/2024 3:10 PM EDT 07/27/2024 3:12 PM EDT [employer] DO LAB BLOOD ORDERABLES Final Resul t [facility] * DRUG SCREEN, URINE (07/27/2024 3:10 PM EDT) Pathologist [facility] AMPHETAMINE/METHAMP Negative Negative [facility] Comment:AMPH/METH screening cut [...] monitoring or management of patients. PERFORMED AT [address],[place] [address] 07/27/2024 3:10 PM EDT 07/27/2024 3:12 PM EDT us Osmany Jena DO LAB BLOOD ORDERABLES Final Resul t Performing Organization Address City/[facility]/ZIP Co de Phone Number [facility] * TSH ([facility]) (07/27/2024 3:10 PM EDT) TSH 1.68 0.49 - 4.67 uIU/mL [facility] Comment:PERFORMED AT [address],[place] [address] 07/27/2024 3:10 PM EDT 07/27/2024 3:12 PM [...] AVERAGE GLUCOSE 85 mg/dL [facility] Comment:PERFORMED AT [facility] [address],[place] [address] 07/27/2024 3:10 PM EDT 07/27/2024 3:12 PM [...] 0.0 - 0.2 X10E9/L [facility] Comment:PERFORMED AT [facility] [address],[place] [address] 07/27/2024 3:10 PM EDT 07/27/2024 3:12 PM EDT us Osmany Jena DO LAB BLOOD ORDERABLES Final Resul t [facility] * US OB follow up transabdominal approach (07/07/2024 2:55 PM EST) Anatomical Region Laterality Modality Body Ultrasound 07/07/2024 2:55 PM EST Narrative 07/07/2024 2:54 PM EST THIS EXAM WAS PERFORMED AT [facility] HISTORY: Vaginal bleeding in COMPARISON: [...] - 07/07/2024 THIS EXAM WAS PERFORMED AT [facility] HISTORY: Vaginal bleeding in COMPARISON: [...]
--- OUTSIDE RECORDS SUMMARY | 2024-10-23 13:04 | XMS_ITS | Encounter Summary ---
Author Organization [facility] Address [address] [place] [address] Care Team Providers Care Operations Agent Name Role Phone Unavailable Primary Care Provider Unavailabl e Encounter Details Date Type Department Care Team (Late Contact Info) Description 11/07/2022 Abstract [facility] [address] [place] [address] Osmany Bella [place] [facility] [place] [address] Social History Tobacco Use Types Packs/Day [...] Description 10/28/2024 2:30 PM EDT Routine [facility] [address] [place] [address] Osmany Bella DO [facility] [place], [place] [id number] documented as of this encounter Visit Diagnoses Not on filedocumented in this encounter
--- OUTSIDE RECORDS SUMMARY | 2024-10-23 13:04 | XMS_ITS | Encounter Summary ---
Author Organization [facility] Address [address] [place] [address] Care Team Providers Care Wire Puller Name Role Phone Unavailable Primary Care Provider Unavailabl e Reason for Visit * Reason Comments Med Refill Encounter Details Date Type Department Care Team (Late Contact Info) Description 12/15/2023 Refill [facility] [address] [facility] [place] [address] Osmany Bella DO [address] [facility] [address] [place], [id number] Flank pain Social History Tobacco Use Types [...] PM EDT Routine [facility] [address] [facility] [id number] Osmany Bella, DO [address] [facility] [place] [address] documented as of this encounter Visit Diagnoses Diagnosis Flank pain Abdominal pain, unspecified site documented in this encounter
--- OUTSIDE RECORDS SUMMARY | 2024-10-23 13:04 | XMS_ITS | Clinical Summary ---
Author Organization [facility] Healthcare Address [address] [place] [address] Care Team Providers Care Talent Acquisition Operations Manager Name Role Phone Unavailable Primary Care Provider Unavailabl e Allergies No known active allergies Medications MV & Min w/FA-DHA ( Gummies) 0.18-25 MG chewable tabletIndication s:Vaginal bleeding affecting early ([facility]) Chew 1 each Daily 30 tablet 11 06/02/2024 Active Vit-Fe Fumarate-FA ( 19) chewable tablet Chew 1 tablet Daily 10/06/2024 Active Active Problems Problem Noted Date Diagnosed [...] Encounters Date Type Department Care Team Description 10/21/2024 2:30 PM EDT [facility]ine [facility] [address] [facility] [place] [address] Mya Kaplan PA 35 weeks gestation of ([facility]); Third trimester ([facility]) 10/21/2024 Bamboo flowsheet [facility] [address] [facility] [place] [address] Mya Kaplan PA 10/15/2024 3:30 PM EDT Routine [facility] OB [address] [place] [address] Mya Kaplan PA Third trimester ([facility]); 32 weeks gestation of ([facility]); H/O incompetent cervix, currently ([facility]); Noncompliant patient, third trimester ([facility]) 10/15/2024 Bamboo flowsheet [facility] OB [address] [place] [address] Mya Kaplan PA 10/12/2024 Telephone [facility] OB [address] [place] [address] [place] [address] Christie Wiley, LEATHER STAMPER 10/02/2024 Telephone [facility] OB [address] [place] [address] [place] [address] Christie Wiley, LEATHER STAMPER 09/21/2024 Telephone [facility] OB [address] [place] [address] [place] [address] Christie Wiley, LEATHER STAMPER 2024 Telephone [facility] OB [address] [place] [address] [place] [address] Zhane Bella, DO 09/02/2024 2:40 PM EDT Routine [facility] OB [address] [place] [address] [place] [address] Zhane Bella, DO 28 weeks gestation of ([facility]) 09/02/2024 Clinisync Result Encounter [facility] External Department Unsolicited Zhane Bella, DO 09/02/2024 Clinisync Result Encounter NOMS External Department Unsolicited Zhane Bella, DO 09/02/2024 Clinisync Result Encounter [facility]OMS External Department Unsolicited Zhane Bella, DO 09/01/2024 Telephone [facility] OB [address] [place] [address] [place] [address] Christie Wiley, ANTELMO 08/28/2024 Results Follow-Up [facility] [address] [place] [address] Vickyaurea MarieANTELMO 08/14/[address] [address] [place] [address] Mayra Thompson MA BV (bacterial vaginosis) 08/14/2024 Telephone [facility] [address] [place] [address] Mayra Thompson MA 08/12/2024 2:50 PM EDT Routine [facility] [address] [place] [address] Zhane Bella DO Well woman exam with routine gynecological exam; Vaginal discharge; STD exposure; Missed menses; , unspecified gestational age ([facility]); Diabetes mellitus screening; Flank pain 08/12/2024 Clinisync Result Encounter [facility]OM[facility] External Department Unsolicited Zhane Bella, 08/12/2024 Bamboo flowsheet [facility] [address] [place] [address] Zhane Bella, 07/28/2024 2:30 PM EDT Ancillary Procedure [facility] [address] [place] [address] Screening, , for anatomic survey ([facility]) from Last 3 Months Family History Relation [...] PM EDT Routine [facility] [address] [place] [address] Zhane Bella, DO [address] [facility] [place] [address] Health Maintenance Due Date Last Done Comments Influenza Vaccine (Season Ended) 2025 03/12/2019, 03/13/2007, 02/25/2006 Procedures Procedure Name Priority Date/Time Associated Diagnosis Comments POCT URINALYSIS DIPSTICK Routine 10/21/2024 3:08 PM EDT 35 weeks gestation of ([facility]) Third trimester ([facility]) CULTURE, URINE, ROUTINE Routine 10/02/2024 11:44 AM EDT Missed menses POCT URINALYSIS DIPSTICK Routine 09/02/2024 3:18 PM EDT 28 weeks gestation of ([facility]) OB CERVICAL LENGTH 09/02/2024 11:52 AM EDT OB PLACENTA 09/02/2024 11:52 AM EDT [facility] URINE MICROSCOPIC ONLY Routine 09/02/2024 11:20 AM EDT [facility] UA (CLEAN/CATCH) HEAVY RAIL TRAIN OPERATOR/MICRO IF IND. Routine 09/02/2024 11:20 AM EDT CBC WITH AUTO DIFFERENTIAL Routine 09/01/2024 3:48 PM EDT POCT URINALYSIS DIPSTICK Routine 08/12/2024 4:46 PM EDT Well woman exam with routine gynecological exam RECURRENT VAGINITIS (HTRX) Routine 08/12/2024 4:11 PM EDT IGP,APTIMA HPV,AGE GDLN Routine 08/12/2024 2:58 PM EDT US OB 14+ WEEKS ANATOMY SCAN Routine 07/28/2024 3:42 PM EDT Screening, , for anatomic survey ([facility]) AFP SINGLE MARKER SCRN, MATERNAL,SERUM ([facility]) Routine [...] AUTO DIFFERENTIAL Routine 07/27/2024 3:10 PM EDT from Last 3 Months Results * (ABNORMAL) POCT urinalysis dipstick manually resulted (10/21/2024 3:08 PM EDT) Only the most recent of3 resultswithin the time period is included. Color, [...] TEST ENTER/EDIT OR DERABLES Final Result * Urine culture (10/02/2024 11:44 AM EDT) Urine Urine specimen obtained by clean catch procedure / Unknown Zhane Bella DO LAB MICROBIOLOGY - GENERAL ORDER DONELL Final Result EXTERNAL LAB * US OB PLACENTA (09/02/2024 11:52 AM EDT) Anatomical Region Laterality Modality Other 09/02/2024 11:5 2 AM EDT Narrative 09/02/2024 11:55 AM EDT [address] [address] Ultrasound Report Signed Patient: LAURA POND MR#: [id number] : 2000 Acct:[id number] Age/Sex: 23 / F ADM Date: Loc: [facility] [address]: Zhane Bella D.O. Ordering Physician: Zhane Bella D.O. Date of Service: 09/02/24 Procedure(s): US OB placenta Accession Number(s): [id number] cc: Zhane Bella D.O.; Physician,Non-Staff MJacquelyn [address] [address] Patient Name: LAURA POND MRN: [id number] date: 2000 Sex: F Assigned Patient Location: [facility] Current Patient Location: [facility] Accession/Order Number: [id number] Exam Date: 09/02/2024 11:49 Report Date: 09/02/2024 [...] cervical abnormality is seen. Impression dictated by: Rufsu Garcia Jr., D.O. 09/02/2024 11:52 AM Dictation Location: [place] [address] Electronically authenticated by: [id number] Y Date: 09/02/2024 11:52 Dictated By: Rufus Garcia M.D. Signed By: 09/02/24 1155 DD/ 1152 TD/TT: Inpatient Pharmacist: Procedure Note Radiology, Radiologist, MD - 09/02/2024 [place] [address] Ultrasound Report Signed Patient: LAURA POND TMR#: [id number] : 2000Acct:[id number] Age/Sex: 23 / FADM Date: Loc: [facility] [address]: Zhane Bella D.O. Ordering Physician: Zhane Bella D.O. Date of Service: 09/02/24 Procedure(s): US OB placenta Accession Number(s): [id number] cc: Zhane Bella D.O.; Physician,Non-Staff Adriana [place] [address] Patient Name: LAURA POND MRN: [facility]:[id number] date: 2000 Sex: F Assigned Patient Location: [facility] Current Patient Location: [facility] Accession/Order Number: [id number] Exam Date: 09/02/2024 11:49 Report Date: 09/02/2024 [...] Jr., D.O. 09/02/2024 11:52 AM Dictation Location: [place] [address] Electronically authenticated by: [id number] Y Date: 1:52 Dictated By: Rufus Garcia M.D. Signed By:09/02/24 1155 DD/ 1152 TD/TT: Inpatient Pharmacist: us Zhane Bella DO [facility] IMAGING Final Result * US OB CERVICAL LENGTH (09/02/2024 11:52 AM EDT) Anatomical Region Laterality Modality Other 09/02/2024 11:5 2 AM EDT Narrative 09/02/2024 11:55 [place] [address] Ultrasound Report Signed Patient: LAURA POND MR#: [id number] : 2000 Acct:[id number] Age/Sex: 23 / F ADM Date: Loc: [facility] [address]: Zhane Bella D.O. Ordering Physician: Zhane Bella D.O. Date of Service: 09/02/24 Procedure(s): US OB cervical length Accession Number(s): [id number] cc: Zhane Bella D.O.; Physician,Non-Staff MJacquelyn The [place] [id number] Patient Name: LAURA POND MRN: [id number] date: 2000 Sex: F Assigned Patient Location: [facility] Current Patient Location: [facility] Accession/Order Number: [id number] Exam Date: 09/02/2024 11:49 Report Date: 09/02/2024 [...] Jr., D.O. 09/02/2024 11:52 AM Dictation Location: [place] [address] Electronically authenticated by: [id number] Y Date: 09/02/2024 11:52 Dictated By: Rufus Garcia M.D. Signed By: 09/02/24 1155 DD/ 1152 TD/TT: Inpatient Pharmacist: Procedure Note Radiology, Radiologist, - 09/02/2024 [place] [address] Ultrasound Report Signed Patient: LAURA POND TMR#: [id number] : 2000Acct:[id number] Age/Sex: 23 / FADM Date: Loc: [facility] 258-[address]: Zhane Bella D.O. Ordering Physician: Zhane Bella D.O. Date of Service: 09/02/24 Procedure(s): US OB cervical length Accession Number(s): [id number] cc: Zhane Bella D.O.; Physician,Non-Staff Adriana [address] [place] [id number] Patient Name: LAURA POND MRN: [facility]:[id number] date: 2000 Sex: F Assigned Patient Location: [facility] Current Patient Location: [facility] Accession/Order Number: [id number] Exam Date: 09/02/2024 11:49 Report Date: 09/02/2024 [...] Jr., D.O. 09/02/2024 11:52 AM Dictation Location: [place] [address] Electronically authenticated by: [id number] Y Date: 1:52 Dictated By: Rufus Garcia M.D. Signed By:09/02/24 1155 DD/ 1152 TD/TT: Inpatient Pharmacist: us Zhane Bella DO [facility] IMAGING Final Result * (ABNORMAL) [facility] URINE MICROSCOPIC ONLY (09/02/2024 11:20 AM EDT) [facility] WBC 5-10(A) NONE SEEN #/HPF [facility] TBH [...] EDT Zhane Jena DO CLINISYNC Final Result Performing Organization Address [facility] Co de Phone Number CLINKAVITHA [facility] * (ABNORMAL) [facility] UA (CLEAN/CATCH) HEAVY RAIL TRAIN OPERATOR/MICRO IF IND. (09/02/2024 11:20 AM EDT) COLOR [...] Narrative CLIN[facility]YNC - 09/02/2024 12:04 PM EDT Zhaneharmeet Monahano DO CLINISYNC Final Result Performing Organization Address [facility] Co de Phone Number CRISTIANO TB * (ABNORMAL) CBC auto differential (09/01/2024 [...] TYPE AUTOMATED DIFFERENTIAL [facility] Comment: PERFORMED AT [facility] [address],[place] [address] 09/01/2024 3:48 PM EDT 09/01/2024 9:40 PM EDT us Zhane Jena DO LAB BLOOD ORDERABLES Final Resul t [facility] * (ABNORMAL) RECURRENT VAGINITIS (HTRX) (08/12/2024 4:11 PM EDT) [facility] ATOPOBIUM VAGINAE 23.789(A) 19.961 - 24.689 ppm 08/13/2024 6:52 AM EDT [facility] ATOPOBIUM VAGINAE Detected(A) 19.961 - 24.689 ppm 08/13/2024 6:52 AM EDT [facility] BVAB 2,3 (BACTERIAL VAGINOSIS ASSOCIATED BACTERIA 2, 3); MOBILUNCUS SPP 20.226(A) 19.961 - 24.689 ppm 08/13/2024 6:52 AM EDT [facility] BVAB 2,3 (BACTERIAL VAGINOSIS ASSOCIATED BACTERIA 2, 3); MOBILUNCUS SPP Detected(A) 19.961 - 24.689 ppm 08/13/2024 6:52 AM EDT [facility] MIGUEL ALBICANS, PARAPSILOSIS, TROPICALIS 0.000 19.961 - 30.770 ppm 08/13/2024 6:52 AM EDT [facility] MIGUEL ALBICANS, PARAPSILOSIS, TROPICALIS Not Detected 19.961 - 30.770 ppm 08/13/2024 6:52 AM EDT [facility] MIGUEL GLABRATA 0.000 23.000 - 32.138 ppm 08/13/2024 6:52 AM EDT [facility] MIGUEL GLABRATA Not Detected 23.000 - 32.138 ppm 08/13/2024 6:52 AM EDT [facility] MIGUEL KRUSEI 0.000 23.000 - 32.271 ppm 08/13/2024 6:52 AM EDT [facility] MIGUEL KRUSEI Not Detected 23.000 - 32.271 ppm 08/13/2024 6:52 AM EDT [facility] CHLAMYDIA TRACHOMATIS 0.000 23.000 - 31.467 ppm 08/13/2024 6:52 AM EDT [facility] CHLAMYDIA TRACHOMATIS Not Detected 23.000 - 31.467 ppm 08/13/2024 6:52 AM EDT [facility] GARDNERELLA VAGINALIS 26.712(A) 19.961 - 24.689 ppm 08/13/2024 6:52 AM EDT [facility] GARDNERELLA VAGINALIS Detected(A) 19.961 - 24.689 ppm 08/13/2024 6:52 AM EDT [facility] MEGASPHAERA (TYPES 1, 2) 15.626(A) 19.961 - 24.689 ppm 08/13/2024 6:52 AM EDT [facility] MEGASPHAERA (TYPES 1, 2) Detected(A) 19.961 - 24.689 ppm 08/13/2024 6:52 AM EDT [facility] NEISSERIA GONORRHOEAE 0.000 23.000 - 32.117 ppm 08/13/2024 6:52 AM EDT [facility] NEISSERIA GONORRHOEAE Not Detected 23.000 - 32.117 ppm 08/13/2024 6:52 AM EDT [facility] TRICHOMONAS VAGINALIS 0.000 23.000 - 32.119 ppm 08/13/2024 6:52 AM EDT [facility] TRICHOMONAS VAGINALIS Not Detected 23.000 - 32.119 ppm 08/13/2024 6:52 AM EDT [facility] MYCOPLASMA GENITALIUM 0.000 19.961 - 24.689 ppm 08/13/2024 6:52 AM EDT [facility] MYCOPLASMA GENITALIUM Not Detected 19.961 - 24.689 ppm 08/13/2024 6:52 AM EDT [facility] ERMB, C; MEFA 23.273(A) 23.000 - 27.611 ppm 08/13/2024 6:52 AM EDT [facility] ERMB, C; MEFA Detected(A) 23.000 - 27.611 ppm 08/13/2024 6:52 AM EDT [facility] TET B, TET M 27.416(A) 23.000 - 27.778 ppm 08/13/2024 6:52 AM EDT [facility] TET B, TET M Detected(A) 23.000 - 27.778 ppm 08/13/2024 6:52 AM EDT [facility] Tissue 08/12/2024 4:11 PM EDT 08/13/2024 1:36 AM EDT us Zhane Jena DO LAB BLOOD ORDERABLES Final Resul t [facility] [address] [place] [address] * (ABNORMAL) IGP,APTIMA HPV,AGE GDLN (08/12/2024 2:58 PM EDT) AGE GDLN ACOG TESTING Note . [facility] Comment: TESTS RESULT FLAG UNITS REF RANGE LAB Clinician Provided Cytology Information Source.............Cervix No. of containers..01 ThinPrep Vial Age Algo ACOG Neha... FLAG LEGEND: L-Low Normal,H-High Normal,LL-Alert Low,HH-Alert High <-Panic Low,>-Panic High,A-Abnormal,AA-Critical Abnormal Performed at: 01 [facility] [address] [place] [address] Rafaela Vega MD, IGP, RFX APTIMA HPV ASCU Note(A) . [facility] Comment: TESTS RESULT FLAG UNITS REF RANGE LAB DIAGNOSIS: [A] 02 EPITHELIAL CELL ABNORMALITY. ATYPICAL SQUAMOUS CELLS OF UNDETERMINED SIGNIFICANCE (ASC-US). Specimen adequacy: 02 Satisfactory for evaluation. Endocervical and/or squamous metaplastic cells (endocervical component) are present. Performed by: 02 Mauri Martínez, Shrimp Trawler ([facility]) Electronically si... 02 Frances Munoz MD, Pathologist [...] <-Panic Low,>-Panic High,A-Abnormal,AA-Critical Abnormal Performed at: [address] [address] Rafaela Vega MD, HPV APTIMA Positive( A) Negative TB Comment: This nucleic acid amplification test detects fourteen high- risk HPV types (16,18,31,33,35,39,45,51,52,56,58,59,66,68) without differentiation. Performed at: = - [address] [id number] Delivery Of Shopping News: Rafaela Vega MD, Phone: [phone] Performed at: [address] [id number] [employer] Of [employer] News: Rafaela Vega MD, Phone: [phone] 08/12/2024 2:58 PM EDT 08/12/2024 9:42 PM EDT Narrative [facility]NC - 08/20/2024 3:07 AM EDT SPATULA-ALONE CERVIX us Zhane Jena DO LAB BLOOD ORDERABLES Final Resul t [facility] * US OB 14+ weeks anatomy scan [...] II, MD, PHD at 28-Jul-2024 09:45:45 PM [facility] Procedure Note Reuben Loaiza MD - [...] LOAIZA II, MD, PHDat 28-Jul-2024 09:45:45 PM [facility] us Zhane Jena DO IMG OB US PROCEDURES Final Resul t * DRUG SCREEN, URINE (07/27/2024 3:10 PM EDT) Pathologist [facility] [place] AMPHETAMINE/METHAMP Negative Negative [facility] Comment:AMPH/METH screening cut [...] monitoring or management of patients. PERFORMED AT [facility] [address],[place] [address] 07/27/2024 3:10 PM EDT 07/27/2024 3:12 PM EDT us Zhane Jena DO LAB BLOOD ORDERABLES Final Resul t [facility] * AFP SINGLE MARKER SCRN, MATERNAL,SERUM ([facility]) (07/27/2024 3:10 PM EDT) [facility] AFP SINGLE MARKER SCRN, MATERNAL, SERUM SEE [...] repeat testing Initial testing Physician Phone Number [phone] GENERAL TEST INFORMATION See Note This screening [...] developed and its performance characteristics determined by [facility] in a manner consistent with CLIA requirements. This test has not been cleared or approved by the U.S. Food and Drug Administration. Test Performed by: [facility] [address] [place] [address] Delivery Of Shopping News: Gamaliel Au Ph.D.; CLIA# [id number] PERFORMED AT [address] [place] [address] 07/27/2024 3:10 PM EDT 07/27/2024 3:12 PM EDT us Zhane Jena DO LAB BLOOD ORDERABLES Final Resul t [facility] * TSH ([facility]) (07/27/2024 3:10 PM EDT) Pathologist [facility] TSH 1.68 0.49 - 4.67 uIU/mL [facility] Comment:PERFORMED AT [address] [address] 07/27/2024 3:10 PM EDT 07/27/2024 3:12 PM EDT us Zhane Jena DO LAB BLOOD ORDERABLES Final Resul t Performing Organization Address City/[facility]/ZIP Co de Phone Number [facility] * SYPHILIS TOTAL ([facility]) (07/27/2024 3:10 PM EDT) [facility] SYPHILIS TOTAL <0.2 0.0 - 0.8 AI [facility] Comment: NON REACTIVE No serologic evidence of infection to Treponema pallidum (syphilis). Repeat testing may be considered in patients with suspected acute or primary syphilis in 2 to 4 weeks. PERFORMED AT [address] [address] 07/27/2024 3:10 PM EDT 07/27/2024 3:12 PM EDT us Zhane Jena DO LAB BLOOD ORDERABLES Final Resul t [facility] * Hepatitis C antibody (07/27/2024 3:10 PM EDT) Pathologist [facility] ANTI HCV W/PCR REFLEX Non-Reacti ve Non-Reacti ve [facility] Comment: NEW TEST METHOD NOTE If recent infection suspected, recommend repeat testing (>2 months). Lticnl-sz-lqbjgg ratio is <1.00. PERFORMED AT [address],[place] [address] 07/27/2024 3:10 PM EDT 07/27/2024 3:12 PM EDT us Zhane Jena DO LAB BLOOD ORDERABLES Final Resul t Performing Organization Address [facility] Co de Phone Number [facility] * Rubella antibody, IgG (07/27/2024 3:10 PM EDT) Pathologist [facility] RUBELLA IGG 15 IU/mL [facility] Comment: Interpretation-------- <8 NEGATIVE-considered Not Immune 8-9 EQUIVOCAL-consider retesting with new specimen >9 POSITIVE-considered Immune PERFORMED AT [address],[place] [address] 07/27/2024 3:10 PM EDT 07/27/2024 3:12 PM EDT us Ingenyo DO LAB BLOOD ORDERABLES Final Resul t Performing Organization Address [facility] Co de Phone Number [facility] * Hepatitis B surface antigen (07/27/2024 3:10 PM EDT) Pathologist [facility] HEPATITIS B SURG AG Non-Reacti ve Non-Reacti ve [facility] Comment: NEW TEST METHOD PERFORMED AT [address],[place] [address] 07/27/2024 3:10 PM EDT 07/27/2024 3:12 PM [...] AVERAGE GLUCOSE 85 mg/dL [facility] Comment:PERFORMED AT [facility] [address] [facility],[place] [address] 07/27/2024 3:10 PM EDT 07/27/2024 3:12 PM EDT Zhane Bella LAB BLOOD ORDERABLES Final Resul t Performing Organization Address City/State/[facility] Co de Phone Number [facility] from Last 3 Months Insurance [employer] BC[employer] [place]ICA[place]
--- OUTSIDE RECORDS SUMMARY | 2024-10-23 13:04 | XMS_ITS | Encounter Summary ---
Author Organization [facility] tem Address [id number] [address] [place] [address] Care Team Providers Care Certified Executive Chef Name Role Phone No Pcp, No Pcp Primary Care Provider Unavailabl e Encounter Details Date Type Department Care Team (Late st Contact Info) Description 01/09/2023 Orders Only Maternal- Medicine at [facility] [address] [place] [phone] Ref Prov, [place] [address] Social History Tobacco Use Types Packs/Day Years [...] often do you attend chur ch or protestant services? Never 03/26/2021 Do you belong to any clubs o r organizations such as orthodoxy groups, unions, fraternal or athletic groups, or [...] Answer Date Recorded Total Score 15 08/03/2021 [facility] - [...] Recorded Do you need help finding a [facility] and/or a training program? [...] documented as of this encounter Care Teams Certified Executive Chef Relationship Specialty Start Date End Date No Pcp, No Pcp RYLIE Paige [address] PCP - General Family Medicine 09/01/24 documented as of this encounter
--- OUTSIDE RECORDS SUMMARY | 2024-10-23 13:04 | XMS_ITS | Encounter Summary ---
Author Organization [facility] Address [address] [place] [address] Care Team Providers Care Community Youth Secretary Name Role Phone Unavailable Primary Care Provider Unavailabl e Encounter Details Date Type Department Care Team (Late Contact Info) Description 11/29/2023 Abstract [facility] OB [address] [facility] [place] [phone] Marie Cuellar LPN [address] [place] [id number] Social History Tobacco Use Types Packs/Day Years [...] Description 10/28/2024 2:30 PM EDT Routine [facility] OB [address] [facility] [place] [place] [phone] Osmany Bella [address] [facility] [place], [place] [id number] documented as of this encounter Visit Diagnoses Not on filedocumented in this encounter
--- OUTSIDE RECORDS SUMMARY | 2024-10-23 13:04 | XMS_ITS | Encounter Summary ---
Author Organization [facility] tem Address [id number] [address] [place] [address] Care Team Providers Care Algebraist Name Role Phone No Pcp, No Pcp Primary Care Provider Unavailabl e Encounter Details Date Type Department Care Team (Late st Contact Info) Description 05/10/2023 Orders Only [facility] - Labor [address] [facility] [place] [phone] Marilu Mcneal, KINDERGARTEN CLASSROOM TEACHER-CN [address] [place] [address] Chronic migraine without aura without status migrainosus, [...] Never 03/26/2021 How often do you attend [facility] or yarsani services? Never 03/26/2021 Do you belong to any clubs o r organizations such as orthodox groups, unions, fraternal or athletic groups, or [...] Answer Date Recorded Total Score 15 08/03/2021 [facility] of Occupat ional Health - Occupational Stress [...] things needed for daily living? No 03/26/2021 [place] Depression Scale Answer Date Recorded [place] Depression Scale Total 7 04/05/2023 The thought [...] Recorded Do you need help finding a [facility] career center and/or a training [...] documented as of this encounter Care Teams Algebraist Relationship Specialty Start Date End Date No Pcp, [place] [address] PCP - General Family Medicine 09/01/24 documented as of this encounter
--- OUTSIDE RECORDS SUMMARY | 2024-10-23 13:04 | XMS_ITS | Encounter Summary ---
Author Organization [facility] Address [address] [place] [address] Care Team Providers Care General Office Associate Name Role Phone Unavailable Primary Care Provider Unavailabl e Encounter Details Date Type Department Care Team (Late st Contact Info) Description 11/22/2023 Clinisync Result Encounter [facility] External Department Unsolicited Zhane Bella, DO [address] [place] [address] Social History Tobacco Use Types Packs/Day Years [...] Routine [facility] B[facility] OB [address] [place] [phone] Zhane Bella DO [address] [place] [address] documented as of this encounter Procedures Procedure Name Priority Date/Time Associated Diagnosis Comments US OB PLACENTA 11/22/2023 3:44 PM EDT AMNISURE Routine 11/22/2023 1:36 PM EDT TBH URINE MICROSCOPIC ONLY Routine 11/22/2023 1:25 PM EDT TBH UA (CLEAN/CATCH) MATRIX REPAIRER/MICRO IF IND. Routine 11/22/2023 1:25 PM EDT documented in this encounter Results * US OB PLACENTA (11/22/2023 3:44 PM EDT) Anatomical Region Laterality Modality Other 11/22/2023 3:44 PM EDT Narrative 11/22/2023 3:47 [place] [address] Ultrasound Report Signed Patient: GEORGIE POND MR#: [id number] : 2000 Acct:[id number] Age/Sex: 23 / F ADM Date: Loc: [facility] 251-[address]: Zhane Bella D.O. Ordering Physician: Zhane Bella D.O. Date of Service: 11/22/23 Procedure(s): US OB placenta Accession Number(s): [id number] cc: Zhane Bella D.O.; Physician,Non-Staff M.D. [place] [address] Patient Name: GEORGIE POND MRN: [id number] date: 2000 Sex: F Assigned Patient Location: [facility] Current Patient Location: [facility] Accession/Order Number: [id number] Exam Date: 11/22/2023 14:20 Report Date: 11/22/2023 [...] Signed By: 11/22/23 1547 DD/ 1544 TD/TT: Urgent Care: Procedure Note Radiology, Radiologist, MD - 11/22/2023 [place] [address] Ultrasound Report Signed Patient: GEORGIE POND TMR#: [id number] : 2000Acct:[id number] Age/Sex: Date: Loc: [facility] 251-[address]: Zhane Bella D.O. Ordering Physician: Zhane Bella D.O. Date of Service: 11/22/23 Procedure(s): US OB placenta Accession Number(s): [id number] cc: Zhane Bella D.O.; Physician,Non-Staff Adriana [place] [address] Patient Name: GEORGIE POND MRN: [id number] date: 2000 Sex: F Assigned Patient Location: [facility] Current Patient Location: [facility] Accession/Order Number: [id number] Exam Date: 11/22/2023 14:20 Report Date: 11/22/2023 [...] M.D. Signed By:11/22/23 1547 DD/ 1544 TD/TT: Urgent Care: us Zhane Jena DO [facility] Final Result * AMNISURE (11/22/2023 1:36 PM EDT) TB AMNISURE NEGATIVE NEGATIVE [facility]H 11/22/2023 1:36 PM EDT 11/22/2023 1:47 PM EDT Narrative [facility] - 11/22/2023 2:06 PM EDT Zhane Jena DO LAB BLOOD ORDERABLES Final Resul t [facility] * (ABNORMAL) [facility]H URINE MICROSCOPIC ONLY (11/22/2023 1:25 PM EDT) Pathologist [facility] TB WBC >100(A) NONE SEEN #/HPF TBH [...] [facility] * (ABNORMAL) TBH UA (CLEAN/CATCH) MATRIX REPAIRER/MICRO IF IND. (11/22/2023 1:25 PM EDT) COLOR [...] - 11/22/2023 2:23 PM EDT us Zhane Monahano DO [facility] Final Result [facility] TB documented in this encounter Visit Diagnoses Not on filedocumented in this encounter
--- OUTSIDE RECORDS SUMMARY | 2024-10-23 13:04 | XMS_ITS | Encounter Summary ---
Author Organization [email or web address] tem Address [id number] [address] [place] [address] Care Team Providers Care Drywall Taper Helper Name Role Phone No Pcp, No Pcp Primary Care Provider Unavailabl e Encounter Details Date Type Department Care Team (Late st Contact Info) Description 03/06/2021 Telephone [facility] Family Medicine [address] [place] [address] [place] [address] Madeline Tubbs RMA Social History [...] test was ordered and [facility] to [facility]. documented in this encounter Plan of Treatment [...] documented as of this encounter Care Teams Drywall Taper Helper Relationship Specialty Start Date End Date No Pcp, [place] [address] PCP - General Family Medicine 09/01/24 documented as of this encounter
--- OUTSIDE RECORDS SUMMARY | 2024-10-23 13:04 | XMS_ITS | Encounter Summary ---
Author Organization [facility] Address [address] [facility] [place] [address] Care Team Providers Care Kettle Loader Name Role Phone Unavailable Primary Care Provider Unavailabl e Encounter Details Date Type Department Care Team (Late st Contact Info) Description 08/05/2023 Abstract [facility] [address] [place] [phone] Kimi Olsen LPN [address] [facility] Siddhartha GONZALEZ [facility] Social History Tobacco Use Types Packs/Day Years [...] Description 10/28/2024 2:30 PM EDT Routine [facility] OB [address] [place] [address] Osmany Bella DO [address] [place], [place] [phone] documented as of this encounter Visit Diagnoses Not on filedocumented in this encounter
--- OUTSIDE RECORDS SUMMARY | 2024-10-23 13:04 | XMS_ITS | Encounter Summary ---
Author Organization [facility] Address [address] [facility] [place] [address] Care Team Providers Care Dust Mop Maker Name Role Phone Unavailable Primary Care Provider Unavailabl e Encounter Details Date Type Department Care Team (Late Contact Info) Description 01/01/2023 Abstract [facility] OB [address] [place] [address] Osmany Bella DO [facility] [place] [address] Social History Tobacco Use [...] [facility] [address] [place] [address] Osmany Bella DO [facility] [place], [place] [id number] documented as of this encounter Visit Diagnoses Not on filedocumented in this encounter
--- OUTSIDE RECORDS SUMMARY | 2024-10-23 13:04 | XMS_ITS | Encounter Summary ---
Author Organization [email or web address] [facility] [employer] Address [id number] [address] [place] [address] Care Team Providers Care Route Salesman And Driver Name Role Phone No Pcp, No Pcp Primary Care Provider Unavailabl e Encounter Details Date Type Department Care Team (Late st Contact Info) Description 05/10/2021 Telephone [facility] [address] [place] [address] [place] [address] Kristyn Gutierrez CMA Social History [...] often do you attend chur ch or taoist services? Never 03/26/2021 Do you belong to any clubs o r organizations such as gnosticist groups, unions, fraternal or athletic groups, or [...] Answer Date Recorded Total Score 13 03/26/2021 [facility] [place] of Occupat ional Health - Occupational Stress [...] covid test please send order to [facility]. [phone] documented in this encounter Plan of Treatment [...] documented as of this encounter Care Teams Route Salesman And Driver Relationship Specialty Start Date End Date No Pcp, [place] [address] PCP - General Family Medicine 09/01/24 documented as of this encounter
--- OUTSIDE RECORDS SUMMARY | 2024-10-23 13:04 | XMS_ITS | Encounter Summary ---
Author Organization [employer] tem Address [id number] [address] [place] [address] Care Team Providers Care Medicare Sales Representative Name Role Phone No Pcp, No Pcp Primary Care Provider Unavailabl e Encounter Details Date Type Department Care Team (Late st Contact Info) Description 10/21/2023 Telephone [facility] [address] [place] [address] Dania Olsen RMA Social History [...] any clubs o r organizations such as mandaen groups, unions, fraternal or athletic groups, or [...] Answer Date Recorded Total Score 4 08/29/2023 [facility] of Occupat ional Health - Occupational Stress [...] things needed for daily living? No 03/26/2021 [place] Depression Scale Answer Date Recorded [place] Depression Scale Total 13 09/12/2023 The thought [...] Recorded Do you need help finding a [facility] career center and/or a training program? No [...] vision and passed out and is in [facility].As she was talking to me they came [...] documented as of this encounter Care Teams Medicare Sales Representative Relationship Specialty Start Date End Date No Pcp, [place] [address] PCP - General Family Medicine 09/01/24 documented as of this encounter
--- OUTSIDE RECORDS SUMMARY | 2024-10-23 13:04 | XMS_ITS | Encounter Summary ---
Author Organization [employer] [facility] Address [id number] [address] [place] [address] Care Team Providers Care Squad Leader Name Role Phone No Pcp, No Pcp Primary Care Provider Unavailabl e Encounter Details Date Type Department Care Team (Late st Contact Info) Description 05/15/2021 Telephone [facility] [address] [place] [address] [place] [address] Mona Delvalle CMA Social History [...] often do you attend chur ch or scientology services? Never 03/26/2021 Do you belong to any clubs o r organizations such as yazidi groups, unions, fraternal or athletic groups, or [...] Answer Date Recorded Total Score 13 03/26/[address] [facility] [place] of Occupat ional Health - Occupational Stress [...] EST Can we get her results from [facility] for COVID test I don't see the [...] documented as of this encounter Care Teams Squad Leader Relationship Specialty Start Date End Date No Pcp, [place] [address] PCP - General Family Medicine 09/01/24 documented as of this encounter
--- OUTSIDE RECORDS SUMMARY | 2024-10-23 13:04 | XMS_ITS | Encounter Summary ---
Author Organization [facility] Address [address] [facility] [place] [address] Care Team Providers Care Professor Of Engineering Name Role Phone Unavailable Primary Care Provider Unavailabl e Encounter Details Date Type Department Care Team (Late Contact Info) Description 12/14/2022 Abstract [facility] OB [address] [place] [address] Osmany Bella DO [facility] [place] [address] Social History Tobacco Use Types Packs/Day [...] 10/28/2024 2:30 PM EDT Routine [facility] OB [address] [place] [address] Osmany Bella DO [facility] [place] [address] documented as of this encounter Visit Diagnoses Not on filedocumented in this encounter
--- OUTSIDE RECORDS SUMMARY | 2024-10-23 13:04 | XMS_ITS | Clinical Summary ---
Author Organization [facility] Address [address] [place] [address] Care Team Providers Care Senior Logistics Manager Name Role Phone Unavailable Primary Care [...] to complete this topic Insurance MEDICAID [place] [facility]
--- OUTSIDE RECORDS SUMMARY | 2024-10-23 13:04 | XMS_ITS | Encounter Summary ---
Author Organization [facility] Address [address] [place] [address] Care Team Providers Care Printed Circuit Boards Solder Leveler Name Role Phone Unavailable Primary Care Provider Unavailabl e Encounter Details Date Type Department Care Team (Late st Contact Info) Description 12/15/2023 Clinisync Result Encounter [facility] External Department Unsolicited Zhane Bella, DO [address] [place] [address] Social History Tobacco Use Types Packs/Day Years [...] Description 10/28/2024 2:30 PM EDT Routine [facility] OB [address] [place] [phone] Zhane Bella [address] [place] [address] documented as of this encounter Procedures Procedure Name Priority Date/Time Associated Diagnosis Comments CT ANGIOGRAM CHEST 12/15/2023 1: 32 PM EDT documented in this encounter Results * CT angiogram chest (12/15/2023 1:32 PM EDT) Anatomical Region Laterality Modality Body, Chest Computed Tomogra phy 12/15/2023 1:32 PM EDT Narrative 12/15/2023 1:35 [place] [address] CT Scan Report Signed Patient: GEORGIE POND MR#: [id number] : 2000 Acct:[id number] Age/Sex: 23 / F ADM Date: Loc: [facility]: Zhane Bella D.O. Ordering Physician: Zhane Bella D.O. Date of Service: 12/15/23 Procedure(s): CT angio chest Accession Number(s): [id number] cc: Physician,Non-Staff [place] [id number] Patient Name: GEORGIE POND MRN: [id number] date: 2000 Sex: F Assigned [facility] Current [facility] Accession/Order Number: [id number] Exam Date: 12/15/2023 11:40 Report Date: 12/15/2023 [...] Signed By: 12/15/23 1335 DD/ 1332 TD/TT: Video Game Developer: Procedure Note Radiology, Radiologist, - 12/15/2023 [place] [address] CT Scan Report Signed Patient: GEORGIE POND TMR#: [id number] : 2000Acct:[id number] Age/Sex: 23 / FADM Date: Loc: [facility] 258-[address]: Zhane Bella D.O. Ordering Physician: Zhane Bella D.O. Date of Service: 12/15/23 Procedure(s): CT angio chest Accession Number(s): [id number] cc: Physician,Non-Staff Adriana [place] [address] Patient Name: GEORGIE POND MRN: [id number] date: 2000 Sex: F Assigned [facility] Current [facility] Accession/Order Number: [id number] Exam Date: 12/15/2023 11:40 Report Date: 12/15/2023 [...] M.D. Signed By:12/15/23 1335 DD/ 1332 TD/TT: Video Game Developer: Zhaen Bella DO [facility] CT PROCEDURES Final Result documented in this encounter Visit Diagnoses Not on filedocumented in this encounter
--- OUTSIDE RECORDS SUMMARY | 2024-10-23 13:04 | XMS_ITS | Encounter Summary ---
Author Organization [employer] Address [facility] [id number] [address] [place] [address] Care Team Providers Care Surgical Supervisor Name Role Phone No Pcp, No Pcp Primary Care Provider Unavailabl e Encounter Details Date Type Department Care Team (Late st Contact Info) Description 09/11/2023 Orders Only [facility] [address] [place] [address] Estefany Hilario LPN Screening for [...] often do you attend chur ch or yarsani services? Never 03/26/2021 Do you belong to any clubs o r organizations such as jew groups, unions, fraternal or athletic groups, or [...] things needed for daily living? No 03/26/2021 [place] Depression Scale Answer Date Recorded [place] Depression Scale Total 13 09/12/2023 The thought [...] SEE ATTACHED SCANNED REPORT us Reyna Diaz HIGHWAY ADMINISTRATIVE ENGINEER-CNM LAB BLOOD ORDERABLES Fin al Result MANUALLY [...] documented as of this encounter Care Teams Surgical Supervisor Relationship Specialty Start Date End Date No Pcp, [place] [address] PCP - General Family Medicine 09/01/24 documented as of this encounter
--- OUTSIDE RECORDS SUMMARY | 2024-10-23 13:04 | XMS_ITS | Encounter Summary ---
Author Organization [employer] Address [facility] [place][id number] [address] [place] [address] Care Team Providers Care Help Desk Technician Name Role Phone No Pcp, No Pcp Primary Care Provider Unavailabl e Reason for Visit * Reason Comments Med Refill Encounter Details Date Type Department Care Team (Late st Contact Info) Description 11/12/2020 Refill [facility] [address] [place] [phone] Iona Layne, BIOMASS PLANT TECHNICIAN-SUPERVISOR [facility] [address] [place] [address] Hematemesis without nausea Social History [...] documented as of this encounter Care Teams Help Desk Technician Relationship Specialty Start Date End Date No Pcp, [place] [address] PCP - General Family Medicine 09/01/24 documented as of this encounter
--- OUTSIDE RECORDS SUMMARY | 2024-10-23 13:05 | XMS_ITS | Encounter Summary ---
Author Organization [employer] Address [facility][id number] [address] [place] [address] Care Team Providers Care Funder Name Role Phone No Pcp, No Pcp Primary Care Provider Unavailabl e Reason for Visit * Reason Onset Date Comments Med Refill 09/07/2020 Encounter Details Date Type Department Care Team (Late st Contact Info) Description 09/07/2020 Refill [facility] [address] [place] [address] [place] [address] Cooper Goff CMA Social History [...] documented as of this encounter Care Teams Funder Relationship Specialty Start Date End Date No Pcp, [place] [address] PCP - General Family Medicine 09/01/24 documented as of this encounter
--- OUTSIDE RECORDS SUMMARY | 2024-10-23 13:05 | XMS_ITS | Encounter Summary ---
Author Organization [employer] Address [facility] [id number] [address] [place] [address] Care Team Providers Care Foreign Student Adviser Name Role Phone No Pcp, No Pcp Primary Care Provider Unavailabl e Encounter Details Date Type Department Care Team (Late st Contact Info) Description 09/09/2023 Orders Only [facility] [address] [place] [address] Estefany Hilario LPN Encounter for [...] often do you attend chur ch or gnosticism services? Never 03/26/2021 Do you belong to [...] Answer Date Recorded Total Score 4 08/29/2023 [facility] of Occupat ional Health - Occupational [...] things needed for daily living? No 03/26/2021 [place] Depression Scale Answer Date Recorded [place] Depression Scale Total 13 09/12/2023 The thought [...] SEE ATTACHED SCANNED REPORT us Reyna Diaz TIRE FIXER-CNM LAB BLOOD ORDERABLES Fin al Result MANUALLY [...] documented as of this encounter Care Teams Foreign Student Adviser Relationship Specialty Start Date End Date No Pcp, [place] [address] PCP - General Family Medicine 09/01/24 documented as of this encounter
--- OUTSIDE RECORDS SUMMARY | 2024-10-23 13:05 | XMS_ITS | Encounter Summary ---
Author Organization [employer] Address [facility] [id number] [address] [place] [address] Care Team Providers Care Beck Operator Name Role Phone No Pcp, No Pcp Primary Care Provider Unavailabl e Reason for Visit * Reason Comments Med Refill Encounter Details Date Type Department Care Team (Late st Contact Info) Description 12/14/2023 Refill [facility] [address] [place] [phone] Gwen Sutton, COFFEE SHOP MANAGER-[facility] [address] [place], [place] [phone] Social History Tobacco Use Types Packs/Day Years [...] often do you attend chur ch or pentecostalism services? Never 03/26/2021 Do you belong to any clubs o r organizations such as rastafari groups, unions, fraternal or athletic groups, or [...] Answer Date Recorded Total Score 4 08/29/2023 [facility] of Occupat ional Health - [...] things needed for daily living? No 03/26/2021 [place] Depression Scale Answer Date Recorded [place] Depression Scale Total 13 09/12/2023 The thought [...] Recorded Do you need help finding a [facility] career center and/or a training program? [...] documented as of this encounter Care Teams Beck Operator Relationship Specialty Start Date End Date No Pcp, [place] [address] PCP - General Family Medicine 09/01/24 documented as of this encounter
--- OUTSIDE RECORDS SUMMARY | 2024-10-23 13:05 | XMS_ITS | Encounter Summary ---
Author Organization [employer] [facility] Address [id number] [address] [place] [address] Care Team Providers Care Information Systems Consultant Name Role Phone No Pcp, No Pcp Primary Care Provider Unavailabl e Encounter Details Date Type Department Care Team (Late st Contact Info) Description 09/17/2023 Telephone [facility] [address] [place] [address] Tameka Abebe Social History Tobacco [...] often do you attend chur ch or rastafarian services? Never 03/26/2021 Do you belong to any clubs o r organizations such as hoahaoism groups, unions, fraternal or athletic groups, or [...] Answer Date Recorded Total Score 4 08/29/2023 [facility] [place] of Occupat ional Health - Occupational Stress [...] things needed for daily living? No 03/26/2021 [place] Depression Scale Answer Date Recorded [place] Depression Scale Total 13 09/12/2023 The thought [...] Recorded Do you need help finding a [facility] career center and/or a training program? No [...] Tums as needed. She also needs to cost recovery technician to frequent small meals, she should not [...] documented as of this encounter Care Teams Information Systems Consultant Relationship Specialty Start Date End Date No Pcp, [place] [address] PCP - General Family Medicine 09/01/24 documented as of this encounter
--- OUTSIDE RECORDS SUMMARY | 2024-10-23 13:05 | XMS_ITS | Encounter Summary ---
Author Organization [employer] Address [facility] [id number] [address] [place] [address] Care Team Providers Care Manager Social Media Name Role Phone No Pcp, No Pcp Primary Care Provider Unavailabl e Encounter Details Date Type Department Care Team (Late st Contact Info) Description 08/29/2023 Telephone [facility] [address] [facility] [address] [place] [address] Julia Morgan CMA Social History [...] any clubs o r organizations such as mandaeism groups, unions, fraternal or athletic groups, or [...] Answer Date Recorded Total Score 4 08/29/2023 [facility] of Occupat ional Health - [...] things needed for daily living? No 03/26/2021 [place] Depression Scale Answer Date Recorded [place] Depression Scale Total 7 04/05/2023 The thought [...] Do you need help finding a [facility] career center and/or a training program? [...] documented as of this encounter Care Teams Manager Social Media Relationship Specialty Start Date End Date No Pcp, [place] [address] PCP - General Family Medicine 09/01/24 documented as of this encounter
--- OUTSIDE RECORDS SUMMARY | 2024-10-23 13:05 | XMS_ITS | Encounter Summary ---
Author Organization [employer] Address [id number] [address] [place] [address] Care Team Providers Care Paint Grinder Stone Mill Name Role Phone No Pcp, No Pcp Primary Care Provider Unavailabl e Encounter Details Date Type Department Care Team (Late st Contact Info) Description 09/07/2020 Telephone [facility] [address] [place] [address] Cooper Goff CMA Social History [...] documented as of this encounter Care Teams Paint Grinder Stone Mill Relationship Specialty Start Date End Date No Pcp, [place] [address] PCP - General Family Medicine 09/01/24 documented as of this encounter
--- OUTSIDE RECORDS SUMMARY | 2024-10-23 13:05 | XMS_ITS | Encounter Summary ---
Author Organization [employer] Address [id number] [address] [place] [address] Care Team Providers Care Help Desk Administrator Name Role Phone No Pcp, No Pcp Primary Care Provider Unavailabl e Encounter Details Date Type Department Care Team (Late st Contact Info) Description 08/03/2021 Documentation [facility] [address] [place] [address] [place] [address] Mona Delvalle CMA Social History [...] Answer Date Recorded Total Score 15 08/03/2021 [facility] - [...] of this encounter Care Teams Help Desk Administrator Relationship Specialty Start Date End Date No Pcp, [place] [id number] PCP - General Family Medicine 09/01/24 documented as of this encounter
--- OUTSIDE RECORDS SUMMARY | 2024-10-23 13:05 | XMS_ITS | Encounter Summary ---
Author Organization [facility] Address [address] [facility] [place] [address] Care Team Providers Care Sports Instructor Name Role Phone Unavailable Primary Care Provider Unavailabl e Encounter Details Date Type Department Care Team (Late Contact Info) Description 10/12/2024 Telephone [facility] [address] [place] [place] [address] Christie Wiley LPN Social History Tobacco [...] Telephone Encounter - Christie Wiley LPN - 10/12/2024 3:19 PM EDT Could you please reach out to patient and schedule for routine OB appointment? Thanks Christie Guerra LPN documented in this encounter Plan of Treatment Upcoming Encounters Date Type Department Care Team (Late st Contact Info) Description 10/28/2024 2:30 PM EDT Routine [facility] [address] [place] [address] Osmany Bella DO [address] [place], [place] [id number] documented as of this encounter Visit Diagnoses Not on filedocumented in this encounter
--- OUTSIDE RECORDS SUMMARY | 2024-10-23 13:05 | XMS_ITS | Encounter Summary ---
Author Organization [facility] Address [address] [facility] [place] [address] Care Team Providers Care Seaport Planning Manager Name Role Phone Unavailable Primary Care Provider Unavailabl e Encounter Details Date Type Department Care Team (Late Contact Info) Description 10/15/2024 Bamboo flowsheet [facility] OB [address] [place] [address] Mya Kaplan PA [address] [place], [facility] Social History Tobacco Use Types Packs/Day [...] PM EDT Routine [facility] [address] [place] [address] Osmany Bella, DO [address] [place], [place] [address] documented as of this encounter Visit Diagnoses Not on filedocumented in this encounter
--- OUTSIDE RECORDS SUMMARY | 2024-10-23 13:05 | XMS_ITS | Encounter Summary ---
Author Organization [employer] Address [id number] [address] [place] [address] Care Team Providers Care Public Health Epidemiologist Name Role Phone No Pcp, No Pcp Primary Care Provider Unavailabl e Encounter Details Date Type Department Care Team (Late st Contact Info) Description 08/03/2021 Telephone [facility] [address] [place] [address] [place] [address] Mona Delvalle CMA Social History [...] any clubs o r organizations such as hindu groups, unions, fraternal or athletic groups, or [...] Answer Date Recorded Total Score 15 08/03/2021 [facility] - [...] documented as of this encounter Care Teams Public Health Epidemiologist Relationship Specialty Start Date End Date No Pcp, [place] [id number] PCP - General Family Medicine 09/01/24 documented as of this encounter
--- OUTSIDE RECORDS SUMMARY | 2024-10-23 13:05 | XMS_ITS | Encounter Summary ---
Author Organization [facility] Address [address] [facility] [place] [address] Care Team Providers Care Help Desk Internship Name Role Phone Unavailable Primary Care Provider Unavailabl e Encounter Details Date Type Department Care Team (Late Contact Info) Description 10/21/2024 Bamboo flowsheet [facility] [address] [place] [address] Mya Kaplan PA [address] [place], [id number] Social History Tobacco Use Types Packs/Day Years [...] [facility] [address] [place] [address] Osmany Bella, DO [address] [address] [facility] [address] [place], [place] [address] documented as of this encounter Visit Diagnoses Not on filedocumented in this encounter
--- NOTE | 2024-10-23 13:08 | US_ITS ---
[address] [address] Patient Name: LAURA FOUNTAIN MRN: [id number] date: 2000 Sex: F Assigned Patient Location: [facility] Current Patient Location: [facility] Accession/Order Number: [id number] Exam Date: 10/23/2024 15:20 Report Date: 10/23/2024 15:21 At the request of: RENETTA JACOB Procedure: US OB BPP w non-stress Biophysical profile. Reason for exam: Incompetent cervix. COMPARISON: None. TECHNIQUE: Transabdominal imaging of the gravid uterus was obtained. FINDINGS: Instrument Designer reports a BPP of 6 out of 8 with 0 out of 2 for breathing movements. MELLISA measures 20.9 cm. heart rate 145 bpm. US/US OB BPP w non-stress Impression: BPP 6 out of 8. Correlation with NST is recommended. Impression dictated by: Rufus Garcia Jr., D.O. 10/23/2024 3:21 PM [facility]ictation [facility] Electron[facility] authenticated by: [id number] Y Date: 10/23/2024 15:21
--- NOTE | 2024-10-23 13:09 | US_ITS ---
[place] [id number] Patient Name: LAURA FOUNTAIN MRN: [id number] date: 2000 Sex: F Assigned Patient Location: [facility] Current Patient Location: Accession/Order Number: [id number] Exam Date: 10/23/2024 15:27 Report Date: 10/23/2024 15:29 At the request of: RENETTA JACOB Procedure: US OB growth Growth ultrasound. Reason for exam: Incompetent cervix. COMPARISON: Ultrasounds dated 09/02/2024. TECHNIQUE: Transabdominal imaging of the gravid uterus was obtained. FINDINGS: Single live intrauterine measuring 36 weeks 0 days by anatomic measurements. Appropriate growth by dating. Estimated weight is 2778 g which is the 60th percentile. MELLISA measures 20.85 cm. heart rate 145 bpm. position is cephalic at time of scanning. US/US OB growth IMPRESSION: Appropriate growth. Impression dictated by: Rufus Garcia Jr., D.O. 10/23/2024 3:29 PM Dictation Location: [place] [address] Electronically authenticated by: [id number] Y Date: 10/23/2024 15:29
[2024-10-23 14:02] VITALS: BP 107/62; PULSE 82; TEMP 35.8
--- NOTE | 2024-10-23 14:46 | US_ITS ---
[place] [id number] Patient Name: LAURA FOUNTAIN MRN: [id number] date: 2000 Sex: F Assigned Patient Location: Current Patient Location: Accession/Order Number: [id number] Exam Date: 10/23/2024 16:03 Report Date: 10/23/2024 16:04 At the request of: ZHANE NORWOOD DO Procedure: US OB cervical length Ultrasound assessment of the uterine cervix. HISTORY: Incompetent cervix. The cervix has a length of 4.0 cm. Cervical os closed. heart beat 141 bpm. Cephalic presentation with longitudinal lie. US/US OB cervical length IMPRESSION: 4 cm cervical length. Impression dictated by: Maulik Pulido M.D. 10/23/2024 4:04 PM Dictation Location: [place] [address] Electronically authenticated by: [id number] Y Date: 10/23/2024 16:04
== END 2024-10-23 15:29 | disposition home or self-care (01) ==
LOC: US 13:03 → FBC 13:04
PROVIDERS: Visit Provider Physician Assistant
DX: O09.293 Supervision of pregnancy with other poor reproductive or obstetric history, third trimester (principal); O09.893 Supervision of other high risk pregnancies, third trimester; Z91.199 Patient's noncompliance with other medical treatment and regimen due to unspecified reason; Z3A.36 36 weeks gestation of pregnancy
CPT/HCPCS: 76816; 76817; 76818

== ENCOUNTER 2024-10-24 00:33 | Observation (INO) | payer MEDICAID, SELFPAY ==
[2024-10-24] VITALS (8 sets, daily range): BP systolic 102–112; BP diastolic 56–70; PULSE 69–86; TEMP 35.9–36.3
--- OUTSIDE RECORDS SUMMARY | 2024-10-24 00:38 | XMS_ITS | CCD ---
Author Organization [facility] CliniSyme Care Team Providers Care Chaser Apprentice Name Role Phone Aamya Luu Unavailable MISC, DR COBOS Primary Care Unavailable CECIL ., MYA Attending Unavailable CECIL .MYA Admitting Unavailable REQUEST, DR MORA LISTED Consulting Unavaila ble MISC, DR COBOS Primary Care Unavailable PAY ., DR BUNDY Attending Unavailable PAY ., DR BUNDY Admitting Unavailable CECIL .MYA Consulting Unavailable MISC, DR COBOS Primary Care [...] No Pcp Primary Care Provider Unavailabl e Osmany Bella DO Primary Care Provider GUERRERO JOHNSON Admitting Unavailable GUERRERO JOHNSON Attending Unavailable NO PCP, NO PCP Primary Care Unavailable DEVYN MCBRIDE Admitting Unavailable DEVYN MCBRIDE Attending Unavailable NO PCP, NO PCP Primary Care Unavailable DEVYN MCBRIDE Attending Unavailable RAE, DEVYN Referring Unavailable NO PCP, NO PCP Primary Care Unavailable GUERRERO JOHNSON Admitting Unavailable GUERRERO JOHNSON Attending Unavailable NO PCP, NO PCP Primary Care Unavailable CARROLL JONES Admitting Unavailable CARROLL JONES Attending Unavailable NO PCP, NO PCP Primary [...] RICKETTS Consulting Unavailable IZA MCKEON Consulting Unavailable RAPHAEL, MELISA Consulting Unavailable JENY LUNDY Referring Unavailable NO PCP, NO PCP Primary Care Unavailable NO PCP, NO PCP Primary Care Unavailable JENA, OSMANY R Referring Unavailable RAPHAEL, MELISA Admitting Unavailable RAPHAEL, MELISA Attending Unavailable NO PCP, NO PCP Primary Care Unavailable PAM, [facility] - Cons ulting Unavailable [place], [facility] - Consulting Unavailable JENY LUNDY Referring Unavailable NO PCP, NO PCP Primary Care Unavailable JENA, OSMANY Attending Unavailable JENA, OSMANY Referring Unavailable JENA, OSMANY Attending Unavailable JENA, OSMANY Attending Unavailable MYA KAPLAN Attending Unavailable JENA, OSMANY Attending Unavailable Medications Current Medications Medication Drug Class(es) [...] 12 tablet 06/25/2024 Active polyethylene glycol 3350 04375 mg powder for oral solution (8 sources) [...] w/FA-DHA ( Gummies) 0.18-25 MG chewable tablet (20 sources) Start: 06-02-2024 MV & Min w/FA-DHA ( Gummies) 0.18-25 MG chewable tablet Indications: Vaginal bleeding affecting early ([facility]) Chew 1 each Daily 30 tablet 11 06/02/2024 Active Start: 06-02-2024 MV & Min w/FA-DHA ( Gummies) 0.18-25 MG chewable tablet Indications: Vaginal bleeding affecting early Chew 1 each Daily 30 tablet 11 06/02/2024 Active vit,sal 74/iron/fol ic ( VITAMIN 1+1 ORAL) (6 sources) vit,sal 74/iron/folic ( VITAMIN 1+1 ORAL) Take by mouth daily. Active Vit-Fe Fumarate-FA ( 19) chewable tablet (8 sources) Start: 10-06-2024 Vit-F e Fumarate-FA ( 19) chewable tablet Chew 1 tablet Daily 10/06/2024 Active Completed/Discontinued Medications Medication Drug Class(es) Dates [...] trimester] Onset: 4 Episodic Other complications of (3 sources) Supervision of with other poor reproductive or obstetric history, unspecified trimester; Translations: [ with other poor obstetric history] Onset: 4 10-15-2024 Episodic Other complications of (1 source) Supervision [...] conditions, unspecified trimester] Onset: 5 Episodic Other complications of (2 sources) Patient noncompliance - general; Translations: [Supervision of other high risk pregnancies, third trimester] 10-15-2024 Episodic Other female genital disorders (1 source) [...] 4 Episodic Other and delivery including normal (20 sources) Encounter for test, result positive; Translations: [Encounter for supervision of other normal , second trimester] Onset: 2 Resolved: 4 Episodic Other screening for suspected conditions (not mental disorders or infectious disease) (9 sources) Encounter for nonprocreative screening for genetic disease carrier status; Translations: [Encounter for screening for other genetic defects] Onset: 4 08-28-2023 Episodic Poisoning by other medications and drugs [...] ] Onset: 5 Episodic Residual codes; unclassified (2 sources) Gestation period, 32 weeks; Translations: [32 weeks gestation of ] 10-15-2024 Episodic Residual codes; unclassified (2 sources) Gestation period, 35 weeks; Translations: [35 weeks gestation of ] 10-21-2024 Episodic Suicide and intentional self-inflicted injury (3 [...] unspecified] 08-28-2023 Episodic Other lower respiratory disease (19 sources) Cough; Translations: [Cough] Onset: 10-19-2020 Resolved: 07-06-2021 07-06-2021 Episodic Other lower respiratory disease (1 source) [...] and metabolic disease] Onset: 08-30-2023 08-29-2023 Episodic Other upper respiratory infections (20 sources) Acute maxillary sinusitis; Translations: [Acute maxillary sinusitis, unspecified] Onset: 06-08-2019 Resolved: 07-06-2021 07-06-2021 Episodic Otitis media and related conditions (17 [...] weeks gestation of ] Onset: 05-15-2024 Episodic Spondylosis; intervertebral disc disorders; other back [...] Test Name Value Interpretation Reference Range Facility US OB CERVICAL LENGTHon 10-05 [place] [address] Ultrasound Report Signed Patient: LAURA POND MR#: [id number] : 2000 Acct:[id number] Age/Sex: 24 / F ADM Date: 10/23/24 Loc: US Attending Dr: Mya Kaplan Ordering Physician: Osmany Bella D.O. Date of Service: 10/23/24 Procedure(s): US OB cervical length Accession Number(s): [id number] cc: Osmany Bella D.O.; Physician,[place] [place] [id number] Patient Name: LAURA POND MRN: [facility]:[id number] date: 2000 Sex: F Assigned Patient Location: US Current Patient Location: Accession/Order Number: [id number] Exam Date: 10/23/2024 16:03 Report Date: 10/23/2024 16:04 At the request of: OSMANY BELLA DO Procedure: US OB cervical length Ultrasound assessment of the uterine cervix. HISTORY: Incompetent cervix. The cervix has a length of 4.0 cm. Cervical os closed. heart beat 141 bpm. Cephalic presentation with longitudinal lie. US/US OB cervical length IMPRESSION: 4 cm cervical length. Impression dictated by: Maulik Pulido M.D. 10/23/2024 4:04 PM Dictation Location: [place] [address] Electronically authenticated by: [id number] Y Date: 10/23/2024 16:04 Dictated By: Maulik Pulido D.O. Signed By: 10/23/24 1606 DD/ 1604 TD/TT: Public Health Sanitarian Technician: [facility] Radiology, Radiologist, MD - 10/23/2024 [place] [address] Ultrasound Report Signed Patient: LAURA POND MR#: [id number] : 2000 Acct:[id number] Age/Sex: 24 / F ADM Date: 10/23/24 Loc: US Attending Dr: Mya Kaplan Ordering Physician: Osmany Bella D.O. Date of Service: 10/23/24 Procedure(s): US OB cervical length Accession Number(s): [id number] cc: Osmany Bella D.O.; Physician,Ruddy mas M.D. The [address] [address] Patient Name: LAURA POND MRN: [facility]:[id number] date: 2000 Sex: F Assigned Patient Location: US Current Patient Location: Accession/Order Number: [id number] Exam Date: 10/23/2024 16:03 Report Date: 10/23/2024 16:04 At the request of: OSMANY BELLA DO Procedure: US OB cervical length Ultrasound assessment of the uterine cervix. HISTORY: Incompetent cervix. The cervix has a length of 4.0 cm. Cervical os closed. heart beat 141 bpm. Cephalic presentation with longitudinal lie. US/US OB cervical length IMPRESSION: 4 cm cervical length. Impression dictated by: Maulik Pulido M.D. 10/23/2024 4:04 PM Dictation Location: [place] Electronically authenticated by: [id number] Y Date: 10/23/2024 16:04 Dictated By: Maulik Pulido D.O. Signed By: 10/23/241605 DD/ 03 TD/TT: Public Health Sanitarian Technician: [facility] Radiology Study observation (narrative) [facility] US OB CERVICAL LENGTHOrdered By: Radiologist Radiology on 10-23-2024 [facility] Work Phone: US OB BPP W NON-STRESS on 10-23-2024 [place] [address] Ultrasound Report Signed Patient: LAURA POND MR#: [id number] : 2000 Acct:[id number] Age/Sex: 24 / F ADM Date: 10/23/24 Loc: [place] [address]: Mya Kaplan Ordering Physician: Mya Kaplan Date of Service: 10/23/24 Procedure(s): US OB BPP w non-stress Accession Number(s): [id number] cc: Mya Kaplan; Physician,Non-Staf t[facility] [place] [id number] Patient Name: LAURA POND MRN: [facility]:[id number] date: 2000 Sex: F Assigned Patient Location: [facility] Current Patient Location: [facility] Accession/Order Number: [id number] Exam Date: 10/23/2024 15:20 Report Date: 10/23/2024 15:21 At the request of: MYA KAPLAN Procedure: US OB BPP w non-stress Biophysical profile. Reason for exam: Incompetent cervix. COMPARISON: None. TECHNIQUE: Transabdominal imaging of the gravid uterus was obtained. FINDINGS: Credit Reporter reports a BPP of 6 out of 8 with 0 out of 2 for breathing movements. MELLISA measures 20.9 cm. heart rate 145 bpm. US/US OB BPP w non-stress Impression: BPP 6 out of 8. Correlation with NST is recommended. Impression dictated by: Rufus Garcia Jr., D.O. 10/23/2024 3:21 PM Dictation Location: [place] [address] Electronically authenticated by: [id number] Y Date: 10/23/2024 15:21 Dictated By: Rufus Garcia M.D. Signed By: 10/23/24 1524 DD/ 1521 TD/TT: Public Health Sanitarian Technician: [facility] Radiology, Radiologist, MD - 10/23/2024 [place] [address] Ultrasound Report Signed Patient: LAURA POND MR#: [id number] : 2000 Acct:[id number] Age/Sex: 24 / F ADM Date: 10/23/24 Loc: [place] [address]- Attending Dr: Mya Kaplan Ordering Physician: Mya Kaplan Date of Service: 10/23/24 Procedure(s): US OB BPP w non-stress Accession Number(s): [id number] cc: Mya Kaplan; Physician,Non-[place]id[place] tg [place] [address] Patient Name: LAURA POND MRN: [facility]:[id number] date: 2000 Sex: F Assigned Patient Location: [facility] Current Patient Location: [facility] Accession/Order Number: [id number] Exam Date: 10/23/2024 15:20 Report Date: 10/23/2024 15:21 At the request of: MYA KAPLAN Procedure: US OB BPP w non-stress Biophysical profile. Reason for exam: Incompetent cervix. COMPARISON: None. TECHNIQUE: Transabdominal imaging of the gravid uterus was obtained. FINDINGS: Credit Reporter reports a BPP of 6 out of 8 with 0 out of 2 for breathing movements. MELLISA measures 20.9 cm. heart rate 145 bpm. US/US OB BPP w non-stress Impression: BPP 6 out of 8. Correlation with NST is recommended. Impression dictated by: Rufus Garcia Jr., D.O. 10/23/2024 3:21 PM Dictation Location: [place] [address] Electronically authenticated by: [id number] Y Date: 10/23/2024 15:21 Dictated By: Rufus Garcia M.D. Signed By: 10/23/24 1524 DD/ 1521 TD/TT: Public Health Sanitarian Technician: [facility] Radiology Study observation (narrative) [facility] US OB BPP W NON-STRESS Ordered By: Radiologist Radiology on 10-23-2024 [facility] Work Phone: US OB GROWTHon 10-23-[address] [address] Ultrasound Report Signed Patient: LAURA POND MR#: [id number] : 2000 Acct:[id number] Age/Sex: 24 / F ADM Date: 10/23/24 Loc: US Attending Dr: Mya Kaplan Ordering Physician: Mya Kaplan Date of Service: 10/23/24 Procedure(s): US OB growth Accession Number(s): [id number] cc: Mya Kaplan; Physician,Non-Staf tg Wright [address] [address] Patient Name: LAURA POND MRN: [facility]:[id number] date: 2000 Sex: F Assigned Patient Location: [facility] Current Patient Location: Accession/Order Number: [id number] Exam Date: 10/23/2024 15:27 Report Date: 10/23/2024 15:29 At the request of: MYA KAPLAN Procedure: US OB growth Growth ultrasound. Reason for exam: Incompetent cervix. COMPARISON: Ultrasounds dated 09/02/2024. TECHNIQUE: Transabdominal imaging of the gravid uterus was obtained. FINDINGS: Single live intrauterine measuring 36 weeks 0 days by anatomic measurements. Appropriate growth by dating. Estimated weight is 2778 g which is the 60th percentile. MELLISA measures 20.85 cm. heart rate 145 bpm. position is cephalic at time of scanning. US/US OB growth IMPRESSION: Appropriate growth. Impression dictated by: Rufus Garcia Jr., D.O. 10/23/2024 3:29 PM Dictation Location: [place] [address] Electronically authenticated by: [id number] Y Date: 10/23/2024 15:29 Dictated By: Rufus Garcia M.D. Signed By: 10/23/24 1531 DD/ 1529 TD/TT: Public Health Sanitarian Technician: [facility] Radiology, Radiologist, MD - 10/23/2024 [place] [address] Ultrasound Report Signed Patient: LAURA POND MR#: [id number] : 2000 Acct:[id number] Age/Sex: 24 / F ADM Date: 10/23/24 Loc: US Attending Dr: Mya Kaplan Ordering Physician: Mya Kaplan Date of Service: 10/23/24 Procedure(s): US OB growth Accession Number(s): [id number] cc: Mya Kaplan; Physician,Ruddy mas M.D. The [place] [id number] Patient Name: LAURA POND MRN: [facility]:[id number] date: 2000 Sex: F Assigned Patient Location: [facility] Current Patient Location: Accession/Order Number: [id number] Exam Date: 10/23/2024 15:27 Report Date: 10/23/2024 15:29 At the request of: MYA KAPLAN Procedure: US OB growth Growth ultrasound. Reason for exam: Incompetent cervix. COMPARISON: Ultrasounds dated 09/02/2024. TECHNIQUE: Transabdominal imaging of the gravid uterus was obtained. FINDINGS: Single live intrauterine measuring 36 weeks 0 days by anatomic measurements. Appropriate growth by dating. Estimated weight is 2778 g which is the 60th percentile. MELLISA measures 20.85 cm. heart rate 145 bpm. position is cephalic at time of scanning. US/US OB growth IMPRESSION: Appropriate growth. Impression dictated by: Rufus Garcia Jr., D.O. 10/23/2024 3:29 PM Dictation Location: [place] [address] Electronically authenticated by: [id number] Y Date: 10/23/2024 15:29 Dictated By: Rufus Garcia M.D. Signed By: 10/23/24 1531 DD/ 1529 TD/TT: Public Health Sanitarian Technician: [facility] Radiology Study observation (narrative) [facility] OB GROWTHOrdered By: Jhonny ologwilly Radiology on 10-23-2024 [facility] Work Phone: Urinalysis macro (dipstick) panel (U)on 10-21-2024 Bilirubin, UA Negative Negative - 4(70) +++ mg/dL [facility] Blood, UA Positive Negative - 50 Ayden/mcL [facility] Comment on above: moderate Clarity, UA Clear [facility] Color, UA Yellow [facility] Glucose, UA Negative Negative - 1999(110) ++++ mg/dL [facility] Interpretation and review of laboratory results Abnormal [facility] Ketones, UA Negative Negative - 160(16) ++++ mg/dL [facility] Leukocytes, UA Negative Negative - 500+++ Caleb/mcL [facility] Nitrite, UA Negative Negative - Positive [facility] pH, UA 6.5 5 - 9 [facility] Protein, UA Negative Negative - 1999(20) ++++ mg/dL [facility] Spec Grav, UA 1.015 1 - 1.03 [facility] Urobilinogen, UA 0.2 0.2 - 12 mg/dL [facility] CHLAMYDIA/GC BY PCR DANY SW ABon 09-23-2024 [...] are dependent on adequate specimen collection. Normal [facility] Comment on above: Performed By: #### C MP #### [facility] ([facility]) [address] [place] [address] VIR URINALYSISon 09-23-2024 Bilirubin Ql (U) Negative Normal Negative [facility] Comment on above: Performed By: #### U A #### [facility] ([id number]) [address] [place] [address] VIR BLOOD/HGB Negative Normal Negative [facility] Comment on above: Performed By: #### U A #### [facility] ([id number]) [address] [place] [address] VIR Color (U) Yellow Normal Yellow, Colorless [facility] Comment on above: Performed By: #### U A #### [facility] ([id number]) [address] [place] [address] VIR Glucose Ql (U) Negative Normal Negative, 250 mg/dL, >1000 mg/dL [facility] Comment on above: Performed By: #### U A #### [facility] ([id number]) [address] [place] [address] VIR Ketones Ql (U) Trace Abnormal Negative [facility] Comment on above: Performed By: #### U A #### [facility] ([id number]) [address] [place] [address] VIR Leukocyte esterase Test stri p Ql (U) Negative Normal Negative [facility] Comment on above: Performed By: #### U A #### [facility] ([id number]) [address] [place] [address] VIR MUCOUS Present Abnormal None [facility] Comment on above: Performed By: #### U A #### [facility] ([id number]) [address] [place] [address] VIR Nitrite Ql (U) Negative Normal Negative [facility] Comment on above: Performed By: #### U A #### [facility] ([id number]) [address] [place] [address] VIR PH,URINE 6.0 Normal 5.0-8.5 [facility] Comment on above: Performed By: #### U A #### [facility] ([id number]) [address] [place] [address] VIR Protein Ql (U) Trace Abnormal Negative [facility] Comment on above: Performed By: #### U A #### [facility] ([id number]) [address] [place] [address] VIR R.B.CELLS 0 Normal 0-5 [facility] Comment on above: Performed By: #### U A #### [facility] ([id number]) [address] [place] [address] VIR Specific gravity (U) [Rel density] 1.025 Normal 1.003-1.03 5 [facility] Comment on above: Performed By: #### U A #### [facility] ([id number]) [address] [place] [address] VIR SQUAMOUS EPITHELIUM 3 Normal 0-[address] [facility] Comment on above: Performed By: #### U A #### [facility] ([id number]) [address] [place] [address] VIR TURBIDITY Clear Normal Clear [facility] Comment on above: Performed By: #### U A #### [facility] ([id number]) [address] [place] [address] VIR UROBILINOGEN 4.0 eu/dL Abnormal 0.2 eu/dL, 1.0 eu/dL [facility] Comment on above: Performed By: #### U A #### [facility] ([id number]) [address] [place] [address] VIR W.B.CELLS 2 Normal 0-5 [facility] Comment on above: Performed By: #### U A #### [facility] ([id number]) [address] [place] [address] VIR Amorphous sediment LM Ql (Urine sed) Present Abnormal None [facility] Comment on above: Performed By: #### U A #### [facility] ([id number]) [address] [place] [address] VIR Bilirubin Ql (U) Negative Normal Negative [facility] Comment on above: Performed By: #### U A #### [facility] ([id number]) [address] [place] [address] VIR BLOOD/HGB Negative Normal Negative [facility] Comment on above: Performed By: #### U A #### [facility] ([id number]) [address] [place] [address] VIR Color (U) Yellow Normal Yellow, Colorless [facility] Comment on above: Performed By: #### U A #### [facility] ([id number]) [address] [place] [address], [place] [address] VIR Glucose Ql (U) Negative Normal Negative, 250 mg/dL, >1000 mg/dL [facility] Comment on above: Performed By: #### U A #### [facility] ([id number]) [address] [place] [address] VIR Ketones Ql (U) >=80 mg/dL Abnormal Negative [facility] Comment on above: Performed By: #### U A #### [facility] ([id number]) [address] [place] [address], [place] [address] VIR Leukocyte esterase Test stri p Ql (U) Large Abnormal Negative [facility] Comment on above: Performed By: #### U A #### [facility] ([id number]) [address] [place] [address] VIR Nitrite Ql (U) Negative Normal Negative [facility] Comment on above: Performed By: #### U A #### [facility] ([id number]) [address] [place] [address] VIR PH,URINE 6.5 Normal 5.0-8.5 [facility] Comment on above: Performed By: #### U A #### [facility] ([id number]) [address] [place] [address] VIR Protein Ql (U) Trace Abnormal Negative [facility] Comment on above: Performed By: #### U A #### [facility] ([id number]) [address] [place] [address] VIR R.B.CELLS 5 Normal 0-5 [facility] Comment on above: Performed By: #### U A #### [facility] ([id number]) [facility] [place] [address] VIR Specific gravity (U) [Rel density] 1.020 Normal 1.003-1.03 5 [facility] Comment on above: Performed By: #### U A #### [facility] ([id number]) [facility] [place] [address] VIR SQUAMOUS EPITHELIUM 20 High 0-[address] [facility] Comment on above: Performed By: #### U A #### [facility] ([id number]) [facility] [place] [address] VIR TURBIDITY Hazy Abnormal Clear [facility] Comment on above: Performed By: #### U A #### [facility] ([id number]) [address] [place] [address] VIR UROBILINOGEN 2.0 eu/dL Abnormal 0.2 eu/dL, 1.0 eu/dL [facility] Comment on above: Performed By: #### U A #### [facility] ([id number]) [address] [place] [address] VIR W.B.CELLS 50 High 0-5 [facility] Comment on above: Performed By: #### U A #### [facility] ([id number]) [address] [place] [address] VIR URINE CULTUREon 09-23-2024 Bacteria identified Cx Nom (U) CULTURE RESULTS 10-50,000 ORGANISMS/mL NORMAL UROGENITAL ALEX Normal [facility] Comment on above: Order Comment: Urine received without preservative - delays in transport may affect results. Interpret with caution and clinical correlation is recommended. Performed By: #### U C #### [facility] ([facility]) [address] [place] [address] VIR VAGINITIS PANEL PCRon 2024 VAGINITIS PANEL [...] clinical presentation to determine patient diagnosis. Normal [facility] Comment on above: Performed By: #### C MP #### [facility] ([facility]) [address] [place] [address] VIR AMMONIAon 09-19-2024 Ammonia (P) [Moles/Vol] 32 umol/L Normal 18-72 [facility] Comment on above: Performed By: #### A MMON #### [facility] ([facility]) [address] [place] [address] VIR Ammonia (P) [Moles/Vol] 34 umol/L Normal 18-72 [facility] Comment on above: Performed By: #### A MMON #### [facility] ([facility]) [address] [place] [address] VIR CBC WITH AUTO DIFFERENTIALon 09-19-2024 BASOPHILS ABSOLUTE COUNT (10*3/UL) BY AUTOMATED COUNT 0.0 10*3/uL Normal 0.0-0.2 [facility] Comment on above: Performed By: #### C BCA #### [facility] ([facility]) [address] [place] [address] VIR BASOPHILS RELATIVE PERCENT B Y AUTOMATED COUNT 0.3 % Normal [facility] Comment on above: Performed By: #### C BCA #### [facility] ([facility]) [address] [place] [address] VIR CELLAVISION DIFFERENTIAL TYPE AUTOMATED DIFFERENTIAL Normal [facility] Comment on above: Performed By: #### C BCA #### [facility] ([facility]) [address] [place] [address] VIR Eosinophils (Bld) [#/Vol] 0.0 10*3/uL Normal 0.0-0.4 [facility] Comment on above: Performed By: #### C BCA #### [facility] ([facility]) [address] [place] [address] VIR EOSINOPHILS RELATIVE PERCENT BY AUTOMATED COUNT 0.3 % Normal [facility] Comment on above: Performed By: #### C BCA #### [facility] ([facility]) [address] [place] [address] VIR Erythrocyte distribution width (RBC) [Ratio] 13.6 % Normal 11.5-15 [facility] Comment on above: Performed By: #### C BCA #### [facility] ([facility]) [address] [place] [address] VIR Hematocrit (Bld) [Volume fraction] 30.4 % Low 35-47 [facility] Comment on above: Performed By: #### C BCA #### [facility] ([facility]) [address] [place] [address] VIR Hemoglobin (Bld) [Mass/Vol] 10.3 g/dL Low 11.7-15. 5 [facility] Comment on above: Performed By: #### C BCA #### [facility] ([facility]) [address] [place] [address] VIR LYMPHOCYTES ABSOLUTE COUNT (10*3/UL) BY AUTOMATED COUNT 1.9 10*3/uL Normal 1.0-3.5 [facility] Comment on above: Performed By: #### C BCA #### [facility] ([facility]) [address] [place] [address] VIR LYMPHOCYTES RELATIVE PERCENT BY AUTOMATED COUNT 20.2 % Normal [facility] Comment on above: Performed By: #### C BCA #### [facility] ([facility]) [address] [place] [address] VIR MCH (RBC) [Entitic mass] 27.2 pg Normal 27-34 [facility] Comment on above: Performed By: #### C BCA #### [facility] ([facility]) [address] [place] [address] VIR MCHC (RBC) [Mass/Vol] 34.0 g/dL Normal 32-36 [facility] Comment on above: Performed By: #### C BCA #### [facility] ([facility]) [address] [place] [address] VIR MCV (RBC) [Entitic vol] 80 fL Normal 80-100 [facility] Comment on above: Performed By: #### C BCA #### [facility] ([facility]) [address] [place] [address] VIR MONOCYTES ABSOLUTE COUNT (10*3/UL) BY AUTOMATED COUNT 0.4 10*3/uL Normal 0.0-0.9 [facility] Comment on above: Performed By: #### C BCA #### [facility] ([facility]) [address] [place] [address] VIR MONOCYTES RELATIVE PERCENT B Y AUTOMATED COUNT 4.3 % Normal [facility] Comment on above: Performed By: #### C BCA #### [facility] ([facility]) [address] [place] [address] VIR NEUTROPHILS ABSOLUTE COUNT B Y AUTOMATED COUNT 6.9 10*3/uL High 1.5-6.6 [facility] Comment on above: Performed By: #### C BCA #### [facility] ([facility]) [address] [place] [address] VIR NEUTROPHILS RELATIVE PERCENT BY AUTOMATED COUNT 74.9 % Normal [facility] Comment on above: Performed By: #### C BCA #### [facility] ([facility]) [address] [place] [address] VIR Platelet mean volume (Bld) [Entitic vol] 8.4 fL Normal 7-12 [facility] Comment on above: Performed By: #### C BCA #### [facility] ([facility]) [address] [place] [address] VIR Platelets (Bld) [#/Vol] 231 10*3/uL Normal 150-450 [facility] Comment on above: Performed By: #### C BCA #### [facility] ([facility]) [address] [place] [address] VIR RBC COUNT 3.80 X10E12/L Normal 3.8-5.2 [facility] Comment on above: Performed By: #### C BCA #### [facility] ([facility]) [address] [place] [address] VIR WBC (Bld) [#/Vol] 9.2 10*3/uL Normal 4-11 [facility] Comment on above: Performed By: #### C BCA #### [facility] ([facility]) [address] [place] [address] VIR COMPREHENSIVE METABOLIC PANE Steven 09-19-2024 Albumin [Mass/Vol] 3.0 g/dL Low 3.2-5.3 [facility] Comment on above: Performed By: #### C MP #### [facility] ([facility]) [address] [place] [address] VIR ALP [Catalytic activity/Vol] 121 U/L Normal 39-130 [facility] Comment on above: Performed By: #### C MP #### [facility] ([facility]) [address] [place] [address] VIR ALT [Catalytic activity/Vol] 5 U/L Normal <=31 [facility] Comment on above: Performed By: #### C MP #### [facility] ([facility]) [address] [place] [address] VIR Anion gap [Moles/Vol] 7 mmol/L Normal 5-15 [facility] Comment on above: Performed By: #### C MP #### [facility] ([facility]) [address] [place] [address] VIR AST [Catalytic activity/Vol] 11 U/L Normal <=41 [facility] Comment on above: Performed By: #### C MP #### [facility] ([facility]) [address] [place] [address] VIR Bilirubin [Mass/Vol] 0.4 mg/dL Normal 0.3-1.2 [facility] Comment on above: Performed By: #### C MP #### [facility] ([facility]) [address] [place] [address] VIR Calcium [Mass/Vol] 8.1 mg/dL Low 8.5-10.5 [facility] Comment on above: Performed By: #### C MP #### [facility] ([facility]) [address] [place] [address] VIR Chloride [Moles/Vol] 106 mmol/L Normal 98-109 [facility] Comment on above: Performed By: #### C MP #### [facility] ([facility]) [address] [place] [address] VIR CO2 [Moles/Vol] 25 mmol/L Normal 22-32 [facility] Comment on above: Performed By: #### C MP #### [facility] ([facility]) [address] [place] [address] VIR Creatinine [Mass/Vol] 0.45 mg/dL Normal 0.40-1.00 [facility] Comment on above: Result Comment: METH OD TRACEABLE TO IDMS STANDARD Performed By: #### C MP #### [facility] ([facility]) [address] [place] [address] VIR EGFR (CKD-EPI) NON-RACE DEPENDENT >^90 Normal >=60 [facility] Comment on above: Result Comment: Repo rted eGFR is based on the CKD-EPI 2020 equation that does not use a race coefficient. Performed By: #### C MP #### [facility] ([facility]) [address] [place] [address] VIR Glucose [Mass/Vol] 96 mg/dL Normal 65-99 [facility] Comment on above: Performed By: #### C MP #### [facility] ([facility]) [address] [place] [address] VIR Potassium [Moles/Vol] 3.5 mmol/L Normal 3.5-5.0 [facility] Comment on above: Performed By: #### C MP #### [facility] ([facility]) [address] [place] [address] VIR Protein [Mass/Vol] 5.5 g/dL Low 6.0-8.0 [facility] Comment on above: Performed By: #### C MP #### [facility] ([facility]) [address] [place] [address] VIR Sodium [Moles/Vol] 138 mmol/L Normal 134-146 [facility] Comment on above: Performed By: #### C MP #### [facility] ([facility]) [address] [place] [address] VIR Urea nitrogen [Mass/Vol] 5 mg/dL Normal 5-23 [facility] Comment on above: Performed By: #### C MP #### [facility] ([facility]) [address] [place] [address] VIR SYPHILIS TOTAL(UNKNOWN SYPHI LIS STATUS)on 09-19-2024 SYPHILIS TOTAL <^0.2 Normal <=0.8 [facility] Comment on above: Order Comment: NON R EACTIVE No serologic evidence of infection to Treponema pallidum. Repeat testing may be considered in patients with suspected acute or primary syphilis in 2 to 4 weeks. Performed By: #### S YPHT #### [facility] ([facility]) [address] [place] [address] VIR VALPROIC ACID DEPAKANEon VALPROIC ACID 31 ug/mL Low 50-100 [facility] Comment on above: Performed By: #### V ALP #### [facility] ([facility]) [address] [place] [address] VIR VALPROIC ACID 28 ug/mL Low 50-100 [facility] Comment on above: Performed By: #### V ALP #### [facility] ([facility]) [address] [place] [address] VIR ACETAMINOPHEN LEVELon 2024 Acetaminophen [Mass/Vol] 6.6 ug/mL Low 10.0-30.0 [facility] Comment on above: Order Comment: Refer ence ranges are for therapeutic limits. Performed By: #### A CETA ####[facility] ([facility])[address] [address] VIR AMMONIAon 09-18-2024 Ammonia (P) [Moles/Vol] 15 umol/L Normal 11-35 P [facility] Comment on above: Performed By: #### A MMON ####[facility] ([address] [address] VIR CBC WITH AUTO DIFFERENTIALon 09-18-2024 BASOPHILS ABSOLUTE COUNT (10*3/UL) BY AUTOMATED COUNT 0.0 10*3/uL Normal 0.0-0.2 [facility] Comment on above: Performed By: #### C BCA ####[facility] ([address] [address] VIR BASOPHILS RELATIVE PERCENT B Y AUTOMATED COUNT 0.1 % Normal [facility] Comment on above: Performed By: #### C BCA ####[facility] ([address] [address] VIR CELLAVISION DIFFERENTIAL TYPE AUTOMATED DIFFERENTIAL Normal [facility] Comment on above: Performed By: #### C BCA ####[facility] ([address] [address] VIR Eosinophils (Bld) [#/Vol] 0.0 10*3/uL Normal 0.0-0.4 [facility] Comment on above: Performed By: #### C BCA ####[facility] ([address] [address] VIR EOSINOPHILS RELATIVE PERCENT BY AUTOMATED COUNT 0.3 % Normal [facility] Comment on above: Performed By: #### C BCA ####[facility] ([address] [address] VIR Erythrocyte distribution width (RBC) [Ratio] 14.1 % Normal 11.5-15 [facility] Comment on above: Performed By: #### C BCA ####[facility] ([address] [address] VIR Hematocrit (Bld) [Volume fraction] 30.8 % Low 35-47 [facility] Comment on above: Performed By: #### C BCA ####[facility] ([address] [address] VIR Hemoglobin (Bld) [Mass/Vol] 10.6 g/dL Low 11.7-15. 5 [facility] Comment on above: Performed By: #### C BCA ####[facility] ([address] [address] VIR LYMPHOCYTES ABSOLUTE COUNT (10*3/UL) BY AUTOMATED COUNT 1.5 10*3/uL Normal 1.0-3.5 [facility] Comment on above: Performed By: #### C BCA ####[facility] ([address] [address] VIR LYMPHOCYTES RELATIVE PERCENT BY AUTOMATED COUNT 15.0 % Normal [facility] Comment on above: Performed By: #### C BCA ####[facility] ([address] [address] VIR MCH (RBC) [Entitic mass] 27.8 pg Normal 27-34 [facility] Comment on above: Performed By: #### C BCA ####[facility] ([address] [address] VIR MCHC (RBC) [Mass/Vol] 34.5 g/dL Normal 32-36 [facility] Comment on above: Performed By: #### C BCA ####[facility] ([address] [address] VIR MCV (RBC) [Entitic vol] 81 fL Normal 80-[address] [facility] Comment on above: Performed By: #### C BCA ####[facility] ([address] [address] VIR MONOCYTES ABSOLUTE COUNT (10*3/UL) BY AUTOMATED COUNT 0.4 10*3/uL Normal 0.0-0.9 [facility] Comment on above: Performed By: #### C BCA ####[facility] ([address] [address] VIR MONOCYTES RELATIVE PERCENT B Y AUTOMATED COUNT 4.0 % Normal [facility] Comment on above: Performed By: #### C BCA ####[facility] ([address] [place] [address] VIR NEUTROPHILS ABSOLUTE COUNT B Y AUTOMATED COUNT 7.8 10*3/uL High 1.5-6.6 [facility] Comment on above: Performed By: #### C BCA ####[facility] ([address] [address] VIR NEUTROPHILS RELATIVE PERCENT BY AUTOMATED COUNT 80.6 % Normal [facility] Comment on above: Performed By: #### C BCA ####[facility] ([address] [address] VIR Platelet mean volume (Bld) [Entitic vol] 8.3 fL Normal 7-12 [facility] Comment on above: Performed By: #### C BCA ####[facility] ([address] [address] VIR Platelets (Bld) [#/Vol] 221 10*3/uL Normal 150-450 [facility] Comment on above: Performed By: #### C BCA ####[facility] ([address] [address] VIR RBC COUNT 3.82 X10E12/L Normal 3.8-5.2 [facility] Comment on above: Performed By: #### C BCA ####[facility] ([address] [address] VIR WBC (Bld) [#/Vol] 9.7 10*3/uL Normal 4-11 [facility] Comment on above: Performed By: #### C BCA ####[facility])[address] [place] [address] VIR COMPREHENSIVE METABOLIC PANE Steven 09-18-2024 Albumin [Mass/Vol] 2.6 g/dL Low 3.2-5.3 [facility] Comment on above: Performed By: #### C MP ####[facility] ([place] [address] [place] [address] VIR ALP [Catalytic activity/Vol] 137 U/L High 39-130 [facility] Comment on above: Performed By: #### C MP ####[facility] ([place] [address] [place] [address] VIR ALT [Catalytic activity/Vol] 9 U/L Normal <=31 [facility] Comment on above: Performed By: #### C MP ####[address] [place] [address] VIR Anion gap [Moles/Vol] 4 mmol/L Low 5-15 [facility] Comment on above: Performed By: #### C MP ####[facility] ([address] [place] [address] VIR AST [Catalytic activity/Vol] 14 U/L Normal <=41 [facility] Comment on above: Performed By: #### C MP ####[facility] ([place] [address] [place] [address] VIR Bilirubin [Mass/Vol] 0.6 mg/dL Normal 0.3-1.2 [facility] Comment on above: Performed By: #### C MP ####[facility] ([place] [address] [place] [address] VIR Calcium [Mass/Vol] 7.9 mg/dL Low 8.5-10.5 [facility] Comment on above: Performed By: #### C MP ####[facility] ([place] [address] [place] [address] VIR Chloride [Moles/Vol] 110 mmol/L High 98-109 [facility] Comment on above: Performed By: #### C MP ####[facility] ([facility])[address] [place] [address] [place] [address] VIR CO2 [Moles/Vol] 20 mmol/L Low 22-32 [facility] Comment on above: Performed By: #### C MP ####[facility] ([address] [place] [address] VIR Creatinine [Mass/Vol] 0.48 mg/dL Normal 0.40-1.00 [facility] Comment on above: Result Comment: METH OD TRACEABLE TO IDMS STANDARD Performed By: #### C MP ####[facility] ([address] [place] [address] VIR EGFR (CKD-EPI) NON-RACE DEPENDENT >^90 Normal >=60 [facility] Comment on above: Result Comment: eGFR not reported due to non-numeric value for Creatinine. Reported eGFR is based on the CKD-EPI 1 equation that does not use a race coefficient. Performed By: #### C MP ####[facility] ([address] [place] [address] VIR Glucose [Mass/Vol] 87 mg/dL Normal 65-99 [facility] Comment on above: Performed By: #### C MP ####[facility] ([address] [place] [address] VIR Potassium [Moles/Vol] 3.5 mmol/L Normal 3.5-5.0 [facility] Comment on above: Performed By: #### C MP ####[facility] ([address] [place] [address] VIR Protein [Mass/Vol] 6.3 g/dL Normal 6.0-8.0 [facility] Comment on above: Performed By: #### C MP ####[facility] ([address] [place] [address] VIR Sodium [Moles/Vol] 134 mmol/L Normal 134-146 [facility] Comment on above: Performed By: #### C MP ####[facility] ([address] [place] [address] VIR Urea nitrogen [Mass/Vol] 6 mg/dL Normal 5-23 [facility] Comment on above: Performed By: #### C MP ####[facility] ([address] [address] VIR DRUG SCREEN, URINEon 025 AMPHETAMINE/METHAMP Negative Normal Negative [facility] Comment on above: Result Comment: AMPH /METH screening cut off = 1000 ng/mL Performed By: #### U A #### [facility] ([id number]) [address] [place] [address], [place] [address] BARBITURATES Negative Normal Negative [facility] Comment on above: Result Comment: Jami iturates screening cut off value = 200 ng/mL Performed By: #### U A #### [facility] ([id number]) [address] [place] [address], [place] [address] BENZODIAZEPINES Negative Normal Negative [facility] Comment on above: Result Comment: Hunter odiazepines screening cut off value = 200 ng/mL Performed By: #### U A #### [facility] ([id number]) [address] [place] [address], [place] [address] CANNABINOIDS Negative Normal Negative [facility] Comment on above: Result Comment: Latha abinoids/THC screening cut off value = 50 ng/mL Performed By: #### U A #### [facility] ([id number]) [address] [place] [address], [place] [address] COCAINE METABOLITE Negative Normal Negative [facility] Comment on above: Result Comment: Coca ine screening cut off value = 300 ng/mL Performed By: #### U A #### [facility] ([id number]) [address] [place] [address] ECSTASY Negative Normal Negative [facility] Comment on above: Result Comment: Ecst asy screening cut off value = 500 ng/mL Performed By: #### U A #### [facility] ([id number]) [address] [place] [address] METHADONE Negative Normal Negative [facility] Comment on above: Result Comment: Meth adone screening cut off value = 300 ng/mL. Performed By: #### U A #### [facility] ([id number]) [address] [place] [address] OPIATES Negative Normal Negative [facility] Comment on above: Result Comment: Opia olivia screening cut off value = 300 ng/mL This test is used for the detection of codeine, hydrocodone (>1000 ng/mL), morphine and hydromorphone (>900 ng/mL) in urine. Performed By: #### U A #### [facility] ([id number]) [address] [place] [address] OXYCODONE Negative Normal Negative [facility] Comment on above: Result Comment: Oxyc odone screening cut off value = 300 ng/mL This test is used for the detection of oxycodone and oxymorphone in urine. Performed By: #### U A #### [facility] ([id number]) [address] [place] [address] PHENCYCLIDINE Negative Normal Negative [facility] Comment on above: Result Comment: Phen cyclidine screening cut off value = 25 ng/mL Performed By: #### U A #### [facility] ([id number]) [address] [place] [address] ETHANOLon 09-18-2024 Ethanol [Mass/Vol] mg/dL Normal <=0.080 [facility] Comment on above: Result Comment: This report is intended for use in clinical monitoring or management of patients. Performed By: #### A LCO ####[facility] ([facility])[address] [place] [address] VIR IRON AND TIBCon 09-18-2024 Iron [Mass/Vol] 62 ug/dL Normal 50-170 [facility] Comment on above: Performed By: #### U A #### [facility] ([id number]) [address] [place] [address] IRON BINDING 560 ug/dL High 250-425 [facility] Comment on above: Performed By: #### U A #### [facility] ([id number]) [address] [place] [address] IRON SATURATION 11 % SATURATION Low 15-50 [facility] Comment on above: Performed By: #### U A #### [facility] ([id number]) [address] [place] [address] Transferrin [Mass/Vol] 400 mg/dL High 168-336 [facility] Comment on above: Performed By: #### U A #### [facility] ([id number]) [address] [place] [address] POCT NURSING URINE MACROSCOP IC UAon 09-18-2024 BILIRUBIN ELOISA Negative Normal Negative [facility] Comment on above: Performed By: #### U A #### [facility] ([id number]) [address] [place] [address] BLOOD/HGB ELOISA Negative Normal Negative [facility] Comment on above: Performed By: #### U A #### [facility] ([id number]) [address] [place] [address] GLUCOSE ELOISA Negative Normal Negative [facility] Comment on above: Performed By: #### U A #### [facility] ([id number]) [address] [place] [address] [id number] KETONES ELOISA 80 mg/dL Abnormal Negative [facility] [place] Comment on above: Performed By: #### U A #### [facility] ([id number]) [address] [place] [address] [id number] LEUKOCYTE ESTERASE ELOISA Moderate Abnormal Negative [facility] Comment on above: Performed By: #### U A #### [facility] ([id number]) [address] [place] [address] NITRITE ELOISA Negative Normal Negative [facility] Comment on above: Performed By: #### U A #### [facility] ([id number]) [address] [place] [address] PH ELOISA 7.0 Normal 5.0, 6.0, 6.5, 7.0, 7.5, 8.0, 8.5, 5.5 [facility] Comment on above: Performed By: #### U A #### [facility] ([id number]) [address] [place] [address] PROTEIN ELOISA Negative Normal Negative [facility] Comment on above: Performed By: #### U A #### [facility] ([id number]) [address] [place] [address] [place] [address] SPECIFIC GRAVITY ELOISA 1.015 Normal 1.010, 1.015, 1.020, 1.025 [facility] Comment on above: Performed By: #### U A #### [facility] ([id number]) [address] [place] [address] UROBILINOGEN ELOISA 0.2 E.U./dL Normal [facility] Comment on above: Performed By: #### U A #### [facility] ([id number]) [address] [place] [address], [place] [address] BILIRUBIN ELOISA Negative Normal Negative [facility] Comment on above: Performed By: #### U A #### [facility] ([id number]) [address] [place] [address] BLOOD/HGB ELOISA Negative Normal Negative [facility] Comment on above: Performed By: #### U A #### [facility] ([id number]) [address] [place] [address] [place] [address] GLUCOSE ELOISA Negative Normal Negative [facility] Comment on above: Performed By: #### U A #### [facility] ([id number]) [address] [place] [address] KETONES ELOISA 80 mg/dL Abnormal Negative [facility] Comment on above: Performed By: #### U A #### [facility] ([id number]) [address] [place] [address] [place] [address] LEUKOCYTE ESTERASE ELOISA Small Abnormal Negative [facility] Comment on above: Performed By: #### U A #### [facility] ([id number]) [address] [place] [address] NITRITE ELOISA Negative Normal Negative [facility] Comment on above: Performed By: #### U A #### [facility] ([id number]) [address] [place] [address] PH ELOISA 7.0 Normal 5.0, 6.0, 6.5, 7.0, 7.5, 8.0, 8.5, 5.5 [facility] Comment on above: Performed By: #### U A #### [facility] ([id number]) [address] [place] [address] PROTEIN ELOISA Negative Normal Negative [facility] Comment on above: Performed By: #### U A #### [facility] ([id number]) [address] [place] [address] SPECIFIC GRAVITY ELOISA 1.015 Normal 1.010, 1.015, 1.020, 1.025 [facility] Comment on above: Performed By: #### U A #### [facility] ([id number]) [address] [place] [address]234 UROBILINOGEN ELOISA 0.2 E.U./dL Normal [facility] Comment on above: Performed By: #### U A #### [facility] ([id number]) [address] [place] [address] SALICYLATE LEVELon 5 SALICYLATE <^4.0 Normal 2.0-25.0 [facility] Comment on above: Order Comment: Refer ence ranges are for therapeutic limits. Performed By: #### S ALI ####[facility] ([facility])[address] [place] [address] [place] [address] VIR VALPROIC ACID DEPAKANEon VALPROIC ACID 11 ug/mL Low 50-100 [facility] Comment on above: Performed By: #### U A #### [facility] ([id number]) [address] [place] [address] No Panel InformationOrdered By: Radiologist Radiology on 09-02-2024 [facility] Work Phone: No Panel Informationon 09-02 Radiology Study observation (narrative) [facility] UA (CLEAN/CATCH) CLIN NURSE/SANDRA RO IF IND.on 09-02-2024 BILIRUBIN URINE Negative NEGATIVE [facility] BLOOD URINE Negative NEGATIVE [facility] Clarity (U) SL CLOUDY CLEAR [facility] Color (U) LT. YELLOW YELLOW [facility] GLUCOSE URINE UA Negative NEGATIVE mg/dL [facility] Interpretation and review of laboratory results Abnormal [facility] Ketones Ql (U) Negative NEGATIVE mg/dL [facility] Leukocyte esterase Test stri p Ql (U) MODERATE Abnormal NEGATIVE [facility] NITRITE URINE Negative NEGATIVE [facility] pH (U) 7.0 [pH] 5.0 - 9.0 [facility] PROTEIN URINE Negative NEG/TRACE mg/dL [facility] SPECIFIC GRAVITY URINE 1.015 1.005 - 1.025 [facility] URINE MICROSCOPIC INDICATED YES [facility] UROBILINOGEN URINE 0.2 EU/dL 0.2 - 1.0 EU/dL [facility] US OB CERVICAL LENGTHon [address] [place] [address] Ultrasound Report Signed Patient: LAURA POND MR#: [id number] : 2000 Acct:[id number] Age/Sex: 23 / F ADM Date: Loc: [facility] 258-[address]: Osmany Bella D.O. Ordering Physician: Osmany Bella D.O. Date of Service: 09/02/24 Procedure(s): US OB cervical length Accession Number(s): [id number] cc: Osmany Bella D.O.; Physician,Ruddy mas M.D. [place] [address] Patient Name: LAURA POND MRN: [id number] date: 2000 Sex: F Assigned Patient Location: [facility] Current Patient Location: [facility] Accession/Order Number: [id number] Exam Date: 09/02/2024 11:49 Report Date: 09/02/2024 [...] Jr., D.O. 09/02/2024 11:52 AM Dictation Location: [place] [address] Electronically authenticated by: [id number] Y Date: 09/02/2024 11:52 Dictated By: Rufus Garcia M.D. Signed By: 09/02/24 1155 DD/ 1152 TD/TT: Public Health Sanitarian Technician: [facility] Radiology, Radiologist, MD - 09/02/2024 [place] [address] Ultrasound Report Signed Patient: LAURA POND MR#: [id number] : 2000 Acct:[id number] Age/Sex: 23 / F ADM Date: Loc: [facility] 258-[address]: Osmany Bella D.O. Ordering Physician: Osmany Bella D.O. Date of Service: 09/02/24 Procedure(s): US OB cervical length Accession Number(s): [id number] cc: Osmany Bella D.O.; Physician,[place]-Stat[place] mas M.D. [place] [id number] Patient Name: LAURA POND MRN: [facility]:[id number] date: 2000 Sex: F Assigned Patient Location: [facility] Current Patient Location: [facility] Accession/Order Number: [id number] Exam Date: 09/02/2024 11:49 Report Date: 09/02/2024 [...] Jr., D.O. 09/02/2024 11:52 AM Dictation Location: [place] [address] Electronically authenticated by: [id number] Y Date: 09/02/2024 11:52 Dictated By: Rufus Garcia M.D. Signed By: 09/02/24 1155 DD/ 1152 TD/TT: Public Health Sanitarian Technician: CONRAD [facility] US OB PLACENTAon 09-02-2024 [place] [id number] Ultrasound Report Signed Patient: LAURA POND MR#: [id number] : 2000 Acct:[id number] Age/Sex: 23 / F ADM Date: Loc: [facility] 258-[address]: Osmany Bella D.O. Ordering Physician: Osmany Bella D.O. Date of Service: 09/02/24 Procedure(s): US OB placenta Accession Number(s): [id number] cc: Osmany Bella D.O.; Physician,[place]-aTmar mas M.D. [place] [id number] Patient Name: LAURA POND MRN: [id number] date: 2000 Sex: F Assigned Patient Location: [facility] Current Patient Location: [facility] Accession/Order Number: [id number] Exam Date: 09/02/2024 11:49 Report Date: 09/02/2024 [...] Jr., D.O. 09/02/2024 11:52 AM Dictation Location: [place] [address] Electronically authenticated by: [id number] Y Date: 09/02/2024 11:52 Dictated By: Rufus Garcia M.D. Signed By: 09/02/24 1155 DD/ 1152 TD/TT: Public Health Sanitarian Technician: [facility] Radiology, Radiologist, MD - 09/02/2024 [place] [address] Ultrasound Report Signed Patient: LAURA POND MR#: [id number] : 2000 Acct:[id number] Age/Sex: 23 / F ADM Date: Loc: [facility] 258-[address]: Osmany Bella D.O. Ordering Physician: Osmany Bella D.O. Date of Service: 09/02/24 Procedure(s): US OB placenta Accession Number(s): [id number] cc: Osmany Bella D.O.; Physician,[place]-Stat[place] mas M.D. [place] [address] Patient Name: LAURA POND MRN: [facility]:[id number] date: 2000 Sex: F Assigned Patient Location: [facility] Current Patient Location: [facility] Accession/Order Number: [id number] Exam Date: 09/02/2024 11:49 Report Date: 09/02/2024 [...] Jr., D.O. 09/02/2024 11:52 AM Dictation Location: [place] [address] Electronically authenticated by: [id number] Y Date: 09/02/2024 11:52 Dictated By: Rufus Garcia M.D. Signed By: 09/02/24 1155 DD/ 1152 TD/TT: Public Health Sanitarian Technician: [facility] Urinalysis macro (dipstick) panel (U)Ordered By: Jaylin Wolfe on 09-02-2024 Bilirubin, UA Negative Negative - 4(70) +++ mg/dL [facility] Blood, UA Positive Negative - 50 Ayden/mcL [facility] Comment on above: Trace-intact Clarity, UA Clear [facility] Color, UA Yellow [facility] Glucose, UA Negative Negative - 2000(110) ++++ mg/dL [facility] Interpretation and review of laboratory results Abnormal [facility] Ketones, UA Negative Negative - 160(16) ++++ mg/dL [facility] Leukocytes, UA Positive Negative - 500+++ Caleb/mcL [facility] Comment on above: Large Nitrite, UA Negative Negative - Positive [facility] pH, UA 6 5 - 9 [facility] Protein, UA Positive Negative - 2000(20) ++++ mg/dL [facility] Comment on above: 30mg/dL Spec Grav, UA 1.025 1 - 1.03 [facility] Urobilinogen, UA 0.2 0.2 - 12 mg/dL [facility] CBC WITH AUTO DIFFERENTIALon 09-01-2024 BASOPHILS ABSOLUTE COUNT (10*3/UL) BY AUTOMATED COUNT 0.0 10*3/uL Normal [facility] Comment on above: Performed By: #### C BCA ####[facility] ([facility])[address], [place] [address] VIR BASOPHILS RELATIVE PERCENT B Y AUTOMATED COUNT 0.2 % Normal [facility] Comment on above: Performed By: #### C BCA ####[facility] ([facility])[address], [place] [address] VIR CELLAVISION DIFFERENTIAL TYPE AUTOMATED DIFFERENTIAL Normal [facility] Comment on above: Performed By: #### C BCA ####[facility] ([facility])[address], [place] [address] VIR Eosinophils (Bld) [#/Vol] 0.0 10*3/uL Normal [facility] Comment on above: Performed By: #### C BCA ####[facility] ([facility])[address], [place] [address] VIR EOSINOPHILS RELATIVE PERCENT BY AUTOMATED COUNT 0.4 % Normal [facility] Comment on above: Performed By: #### C BCA ####[facility] ([facility])[address], [place] [address] VIR Erythrocyte distribution width (RBC) [Ratio] 13.7 % Normal 11.5-15 [facility] Comment on above: Performed By: #### C BCA ####[facility] ([facility])[address], [place] [address] VIR Hematocrit (Bld) [Volume fraction] 31.9 % Low 35-47 [facility] Comment on above: Performed By: #### C BCA ####[facility] ([facility])[address], [place] [address] VIR Hemoglobin (Bld) [Mass/Vol] 10.9 g/dL Low 11.7-15. 5 [facility] Comment on above: Performed By: #### C BCA ####[facility] ([facility])[address], [place] [address] VIR LYMPHOCYTES ABSOLUTE COUNT (10*3/UL) BY AUTOMATED COUNT 1.5 10*3/uL Normal [facility] Comment on above: Performed By: #### C BCA ####[facility] ([facility])[address], [place] [address] VIR LYMPHOCYTES RELATIVE PERCENT BY AUTOMATED COUNT 17.0 % Normal [facility] Comment on above: Performed By: #### C BCA ####[facility] ([facility])[address], [place] [address] VIR MCH (RBC) [Entitic mass] 28.2 pg Normal 27-34 [facility] Comment on above: Performed By: #### C BCA ####[facility] ([facility])[address], [place] [address] VIR MCHC (RBC) [Mass/Vol] 34.1 g/dL Normal 32-36 [facility] Comment on above: Performed By: #### C BCA ####[facility] ([facility])[address], [place] [address] VIR MCV (RBC) [Entitic vol] 83 fL Normal 80-[address] [facility] Comment on above: Performed By: #### C BCA ####[facility] ([facility])[address], [place] [address] VIR MONOCYTES ABSOLUTE COUNT (10*3/UL) BY AUTOMATED COUNT 0.3 10*3/uL Normal [facility] Comment on above: Performed By: #### C BCA ####[facility] ([facility])[address], [place] [address] VIR MONOCYTES RELATIVE PERCENT B Y AUTOMATED COUNT 3.7 % Normal [facility] Comment on above: Performed By: #### C BCA ####[facility] ([facility])[address], [place] [address] VIR NEUTROPHILS ABSOLUTE COUNT B Y AUTOMATED COUNT 7.1 10*3/uL Normal [facility] Comment on above: Performed By: #### C BCA ####[facility] ([facility])[address], [place] [address] VIR NEUTROPHILS RELATIVE PERCENT BY AUTOMATED COUNT 78.7 % Normal [facility] Comment on above: Performed By: #### C BCA ####[facility] ([facility])[address], [place] [address] VIR Platelet mean volume (Bld) [Entitic vol] 8.9 fL Normal 7-12 [facility] Comment on above: Performed By: #### C BCA ####[facility] ([facility])[address], [place] [address] VIR Platelets (Bld) [#/Vol] 226 10*3/uL Normal 150-450 [facility] Comment on above: Performed By: #### C BCA ####[facility] ([facility])[address], [place] [address] VIR RBC COUNT 3.86 X10E12/L Normal 3.8-5.2 [facility] Comment on above: Performed By: #### C BCA ####[facility] ([facility])[address], [place] [address] VIR WBC (Bld) [#/Vol] 9.0 10*3/uL Normal 4-11 [facility] Comment on above: Performed By: #### C BCA ####[facility] ([facility])[address], [place] [address] VIR GLUCOSE TOLERANCE, FASTINGon 09-01-2024 GLUCOSE TOLERANCE, FASTING GLUF GLUCOSE TOLERANCE, FASTING Cancelled Normal [facility] Comment on above: Order Comment: FASTI NG GLUCOSE NOT NEEDED FOR 1 HOUR 50 GRAM GLUCOLA IGP,APTIMA HPV,AGE GDLNon AGE GDLN ACOG TESTING Note . [facility] Comment on above: TESTS RESULT FLAG UN ITS REF RANGE LAB ---- Clinician Provided Cytology Information Source.............Cervix No. of containers..01 ThinPrep Vial Age Algo ACOG Olivia... ---- FLAG LEGEND: L-Low Normal,H-High Normal,LL-Alert Low,HH-Alert High <-Panic Low,>-Panic High,A-Abnormal,AA-Critical Abnormal ---- Performed at: 01 =[address] [address] Rafaela Vega MD, HPV APTIMA Positive Abnormal Negative [facility] Comment on above: This nucleic acid am plification test detects fourteen high- risk HPV types (16,18,31,33,35,39,45,51,52,56,58,59,66,68) without differentiation. Performed at: =[address] [id number] Process Lead: Rafaela Vega MD, Phone: [phone] Performed at: [address] [id number] Process Lead: Rafaela Vega MD, Phone: [phone] IGP, RFX APTIMA HPV ASCU Note Abnormal . [facility] Comment on above: TESTS RESULT FLAG UN ITS REF RANGE LAB ---- DIAGNOSIS: [A] 02 EPITHELIAL CELL ABNORMALITY. ATYPICAL SQUAMOUS CELLS OF UNDETERMINED SIGNIFICANCE (ASC-US). Specimen adequacy: 02 Satisfactory for evaluation. Endocervical and/or squamous metaplastic cells (endocervical component) are present. Performed by: 02 Mauri Martínez, Middle School Sports Coach (ASCP) Electronically si... 02 Frances Munoz MD, [...] Low,>-Panic High,A-Abnormal,AA-Critical Abnormal ---- Performed at: [address] [address] Rafaela Vega MD, Interpretation and review of laboratory results Abnormal [facility] Urinalysis macro (dipstick) panel (U)on 08-12-2024 Bilirubin, UA Negative Negative - 4(70) +++ mg/dL [facility] Blood, UA Negative Negative - 50 Ayden/mcL [facility] Clarity, UA Clear [facility] Color, UA Yellow [facility] Glucose, UA Negative Negative - 2000(110) ++++ mg/dL [facility] Interpretation and review of laboratory results Normal [facility] Ketones, UA Negative Negative - 160(16) ++++ mg/dL [facility] Leukocytes, UA Negative Negative - 500+++ Caleb/mcL [facility] Nitrite, UA Negative Negative - Positive [facility] pH, UA 5.5 5 - 9 [facility] Protein, UA Negative Negative - 2000(20) ++++ mg/dL [facility] Spec Grav, UA 1.02 1 - 1.03 [facility] Urobilinogen, UA 1.0 0.2 - 12 mg/dL [facility] URINALYSISon 08-03-2024 Bilirubin Ql (U) Negative Normal NEG [facility] Comment on above: Performed By: #### U A ####[facility] ([id number])[address] [place] [address], [place] [address] BLOOD/HGB Negative Normal NEG [facility] Comment on above: Performed By: #### U A ####[facility] ([id number])[address] [place] [address], [place] [address] Color (U) YELLOW Normal YELLOW [facility] Comment on above: Performed By: #### U A ####[facility] ([id number])[address] [place] [address], [place] [address] Glucose Ql (U) Negative Normal NEG [facility] Comment on above: Performed By: #### U A ####[facility] ([id number])[address] [place] [address], [place] [address] Ketones Ql (U) Negative Normal NEG [facility] Comment on above: Performed By: #### U A ####[facility] ([id number])[address] [place] [address], [place] [address] Leukocyte esterase Test stri p Ql (U) SMALL Abnormal NEG [facility] Comment on above: Performed By: #### U A ####[facility] ([id number])[address] [place] [address], [place] [address] MUCOUS PRESENT Abnormal NONE [facility] Comment on above: Performed By: #### U A ####[facility] ([id number])[address] [place] [address], [place] [address] Nitrite Ql (U) Negative Normal NEG [facility] Comment on above: Performed By: #### U A ####[facility] ([id number])[address] [place] [address], [place] [address] pH (U) 6.0 [pH] Normal 5.0-8.5 [facility] Comment on above: Performed By: #### U A ####[facility] ([id number])[address] [place] [address] [place] [address] Protein Ql (U) Negative Normal NEG [facility] Comment on above: Performed By: #### U A ####[facility] ([id number])[address] [place] [address], [place] [address] R.B.CELLS 0 /hpf Normal 0-5 [facility] Comment on above: Performed By: #### U A ####[facility] ([id number])[address] [place] [address] Specific gravity (U) [Rel density] 1.025 Normal 1.003-1.03 5 [facility] Comment on above: Performed By: #### U A ####[facility] ([id number])[address] [place] [address] SQUAMOUS EPITHELIUM 13 /hpf High 0-5 [facility] Comment on above: Performed By: #### U A ####[facility] ([id number])[address] [place] [address] TURBIDITY CLEAR Normal CLEAR [facility] Comment on above: Performed By: #### U A ####[facility] ([id number])[address] [place] [address] Urinalysis dipstick W Reflex Microscopic panel (U) URINE RECEIVED WITHOUT PRESERVATIVE-DELAY S IN TRANSPORT MAY AFFECT RESULTS.INTERPRET WITH CAUTION AND CLINICAL CORRELATION IS RECOMMENDED. Normal [facility] Comment on above: Performed By: #### U A ####[facility] ([id number])[address] [place] [address] Urobilinogen Qn (U) 0.2 {Krishna'U}/dL Normal <1.1 [facility] Comment on above: Performed By: #### U A ####[facility] ([id number])[address] [place] [address] W.B.CELLS 12 /hpf High 0-5 [facility] Comment on above: Performed By: #### U A ####[facility] ([id number])[address] [place] [address] URINE CULTUREon 08-03-2024 Bacteria identified Cx Nom (U) SPECIMEN NOTES URINE RECEIVED WITHOUT PRESERVATIVE CULTURE RESULTS 10-50,000 ORGANISMS/mL NORMAL UROGENITAL ALEX URINE RECEIVED WITHOUT PRESERVATIVE-DELAY S IN TRANSPORT MAY AFFECT RESULTS.INTERPRET WITH CAUTION AND CLINICAL CORRELATION IS RECOMMENDED. Normal [facility] Comment on above: Performed By: #### 6 30-4 ####[facility] ([id number])[address] [facility], [address] [place] [address] US OB 14+ WEEKS ANATOMY SCAN on [...] II, MD, PHD at 28-Jul-2024 09:45:45 PM [facility] Normal Not Available Comment on above: Order Comment: US OB ANATOMY SINGLE W US OB CERVICAL LENGTH Estimated Date of Delivery: 11/24/24 Gestational Age as of 07/16/2024: 21w2d AFP panelon 07-27-2024 AFP SINGLE MARKER SCRN, MATERNAL, SERUM SEE COMMENTS 07/29/2024 03:00 PM Normal [facility] Comment on above: Result Comment: NOTE Test [...] repeat testing Initial testing Physician Phone Number [phone] GENERAL TEST INFORMATION See Note This screening [...] developed and its performance characteristics determined by [facility] in a manner consistent with CLIA requirements. This test has not been cleared or approved by the U.S. Food and Drug Administration. Test Performed by: [facility] [address] [place] [address] Process Lead: Gamaliel Au Ph.D.; CLIA# [id number] Performed By: #### V PPCR #### [facility] ([id number]) [address] [facility], [address] [address] CBC AND AUTO DIFFon 07-28-19 25 ABSOLUTE BASOPHIL 0.0 X10E9/L Normal 0.0-0.2 [facility] Comment on above: Performed By: #### V PPCR #### [facility] ([id number]) [address] [facility], [facility] [address] [place] [address] ABSOLUTE NEUTROPHIL 7.7 X10E9/L High 1.5-6.6 [facility] Comment on above: Performed By: #### V PPCR #### [facility] ([id number]) [address] [place] [address], [address] [address] Basophils/100 WBC (Bld) 0.2 % Normal P [facility] Comment on above: Performed By: #### V PPCR #### [facility] ([id number]) [address] [address] [place] [address] Eosinophils (Bld) [#/Vol] 0.0 10*3/uL Normal 0.0-0.4 [facility] Comment on above: Performed By: #### V PPCR #### [facility] ([id number]) [address] [address] [place] [address] Eosinophils/100 WBC (Bld) 0.3 % Normal [facility] Comment on above: Performed By: #### V PPCR #### [facility] ([id number]) [address] [place] [address] Erythrocyte distribution width (RBC) [Ratio] 14.1 % Normal 11.5-15.0 [facility] Comment on above: Performed By: #### V PPCR #### [facility] ([id number]) [address] [address] [place] [address] Hematocrit (Bld) [Volume fraction] 34.7 % Low 35-47 [facility] Comment on above: Performed By: #### V PPCR #### [facility] ([id number]) [address] [address] [place] [address] Hemoglobin (Bld) [Mass/Vol] 12.1 g/dL Normal 11.7-15. 5 [facility] Comment on above: Performed By: #### V PPCR #### [facility] ([id number]) [address] [address] [place] [address] Lymphocytes (Bld) [#/Vol] 1.8 10*3/uL Normal 1.0-3.5 [facility] Comment on above: Performed By: #### V PPCR #### [facility] ([id number]) [address] [address] [place] [address] Lymphocytes/100 WBC (Bld) 18.5 % Normal [facility] Comment on above: Performed By: #### V PPCR #### [facility] ([id number]) [address] [place] [address] MCH (RBC) [Entitic mass] 29.4 pg Normal 27-34 [facility] Comment on above: Performed By: #### V PPCR #### [facility] ([id number]) [address] [place] [address] MCHC (RBC) [Mass/Vol] 34.7 g/dL Normal 32-36 [facility] Comment on above: Performed By: #### V PPCR #### [facility] ([id number]) [address], [address] [place] [address] MCV (RBC) [Entitic vol] 85 fL Normal 80-100 [facility] Comment on above: Performed By: #### V PPCR #### [facility] ([id number]) [address], [address] [place] [address] Monocytes (Bld) [#/Vol] 0.3 10*3/uL Normal 0-0.9 [facility] Comment on above: Performed By: #### V PPCR #### [facility] ([id number]) [address], [address] [place] [address] Monocytes/100 WBC (Bld) 3.2 % Normal [facility] Comment on above: Performed By: #### V PPCR #### [facility] ([id number]) [address], [address] [place] [address] Neutrophils/100 WBC (Bld) 77.8 % Normal [facility] Comment on above: Performed By: #### V PPCR #### [facility] ([id number]) [address], [address] [place] [address] Platelet mean volume (Bld) [Entitic vol] 9.0 fL Normal 7-12 [facility] Comment on above: Performed By: #### V PPCR #### [facility] ([id number]) [address], [facility] [address] [place] [address] Platelets (Bld) [#/Vol] 258 10*3/uL Normal 150-450 [facility] Comment on above: Performed By: #### V PPCR #### [facility] ([id number]) [address], [facility] [address] [place] [address] RBC COUNT 4.10 X10E12/L Normal 3.80-5.20 [facility] Comment on above: Performed By: #### V PPCR #### [facility] ([id number]) [address] [facility], [facility] [address] [place] [address] WBC (Bld) [#/Vol] 9.9 10*3/uL Normal 4.0-11.0 [facility] Comment on above: Performed By: #### V PPCR #### [facility] ([id number]) [address] [facility], [address] [place] [address] DRUG SCREEN, URINEon 025 AMPHETAMINE/METHAMP Negative Normal NEG [facility] Comment on above: Result Comment: AMPH /METH screening cut off = 1000 ng/mL Performed By: #### V PPCR #### [facility] ([id number]) [address] [facility], [address] [place] [address] BARBITURATES Negative Normal NEG [facility] Comment on above: Result Comment: Jami iturates screening cut off value = 200 ng/mL Performed By: #### V PPCR #### [facility] ([id number]) [address], [address] [place] [address] BENZODIAZEPINES Negative Normal NEG [facility] Comment on above: Result Comment: Hunter odiazepines screening cut off value = 200 ng/mL Performed By: #### V PPCR #### [facility] ([id number]) [address], [address] [place] [address] CANNABINOIDS Negative Normal NEG [facility] Comment on above: Result Comment: Latha abinoids/THC screening cut off value = 50 ng/mL Performed By: #### V PPCR #### [facility] ([id number]) [address], [address] [place] [address] COCAINE METABOLITE Negative Normal NEG [facility] Comment on above: Result Comment: Coca ine screening cut off value = 300 ng/mL Performed By: #### V PPCR #### [facility] ([id number]) [address], [address] [place] [address] ECSTASY Negative Normal [facility] Comment on above: Result Comment: Ecst asy screening cut off value = 500 ng/mL This report is intended for use in clinical monitoring or management of patients. Performed By: #### V PPCR #### [facility] ([id number]) [address], [address] [place] [address] METHADONE Negative Normal [facility] Comment on above: Result Comment: Meth adone screening cut off value = 300 ng/mL. Performed By: #### V PPCR #### [facility] ([id number]) [address], [address] [place] [address] OPIATES Negative Normal NEG [facility] Comment on above: Result Comment: Opia olivia screening cut off value = 300 ng/mL NOTE: This test is used for the detection of codeine, hydrocodone (>1000 ng/mL), morphine and hydromorphone (>900 ng/mL) in urine. Performed By: #### V PPCR #### [facility] ([id number]) [address], [address] [place] [address] OXYCODONE Negative Normal NEG [facility] Comment on above: Result Comment: Oxyc odone screening cut off value = 300 ng/mL NOTE: This test is used for the detection of oxycodone and oxymorphone in urine. Performed By: #### V PPCR #### [facility] ([id number]) [address], [address] [place] [address] PHENCYCLIDINE Negative Normal NEG [facility] Comment on above: Result Comment: Phen cyclidine screening cut off value = 25 ng/mL Performed By: #### V PPCR #### [facility] ([id number]) [address], [facility] [address] [place] [address] HBV surface Ag IA [facility] 07-27 HEPATITIS B SURF AG Non-Reactive Normal NRCT Pro [facility] Comment on above: Result Comment: NEW TEST METHOD Performed By: #### V PPCR #### [facility] ([id number]) [address], [facility] [address] [place] [address] HCV Ab IA [facility] 07-27-2024 ANTI HCV W/PCR REFLX Non-Reactive Normal NRCT Pr [facility] Comment on above: Result Comment: NEW TEST METHOD NOTE If recent infection suspected, recommend repeat testing (>2 months). Skonzt-mj-nukbuk ratio is <1.00. Performed By: #### V PPCR #### [facility] ([id number]) [address] [address] [place] [address] HGB A1C (GLYCO-HGB)on 2024 Glucose [Mass/Vol] 85 mg/dL Normal [facility] Comment on above: Performed By: #### V PPCR #### [facility] ([id number]) [address] [place] [address] HbA1c (Bld) [Mass fraction] 4.6 % Normal 4.4-5.6 [facility] Comment on above: Result Comment: NOTE ADA Guidelines Result HgbA1c Normal : less than 5.7 % Prediabetes : 5.7 % to 6.4 % Diabetes : > 6.4 % Use with caution in patients with abnormal hemoglobin variants as the half-life of red blood cells and in vivo glycation rates are affected. Performed By: #### V PPCR #### [facility] ([id number]) [address] [place] [address], [address] [address] Rubella virus IgG Qn (S)on 0 07-27-2024 RUBELLA IgG 15 IU/mL Normal [facility] Comment on above: Result Comment: Interpretation-------- <8 NEGATIVE-considered Not Immune 8-9 EQUIVOCAL-consider retesting with new specimen >9 POSITIVE-considered Immune Performed By: #### V PPCR #### [facility] ([id number]) [address] [place] [address] T. pallidum IgG+IgM IA Ql (S )on 07-27-2024 Syphilis Total <0.2 Normal 0.0-0.8 [facility] Comment on above: Result Comment: NON REACTIVE No serologic evidence of infection to Treponema pallidum (syphilis). Repeat testing may be considered in patients with suspected acute or primary syphilis in 2 to 4 weeks. Performed By: #### V PPCR #### [facility] ([id number]) [address] [place] [address] TSH Qnon 07-27-2024 TSH 1.68 uIU/mL Normal 0.49-4.67 [facility] Comment on above: Performed By: #### V PPCR #### [facility] ([id number]) [address] [place] [address] URINALYSISon 07-12-2024 Bilirubin Ql (U) Negative Normal NEG [facility] Comment on above: Performed By: #### V PPCR #### [facility] ([id number]) [address] [place] [address] BLOOD/HGB Negative Normal NEG [facility] Comment on above: Performed By: #### V PPCR #### [facility] ([id number]) [address] [place] [address] Color (U) YELLOW Normal YELLOW [facility] Comment on above: Performed By: #### V PPCR #### [facility] ([id number]) [address] [place] [address] Glucose Ql (U) Negative Normal NEG [facility] Comment on above: Performed By: #### V PPCR #### [facility] ([id number]) [address] [place] [address] Ketones Ql (U) Negative Normal NEG [facility] Comment on above: Performed By: #### V PPCR #### [facility] ([id number]) [address] [place] [address] Leukocyte esterase Test stri p Ql (U) MODERATE Abnormal NEG [facility] Comment on above: Performed By: #### V PPCR #### [facility] ([id number]) [address] [place] [address] Nitrite Ql (U) Negative Normal NEG [facility] Comment on above: Performed By: #### V PPCR #### [facility] ([id number]) [address] [place] [address] pH (U) 7.0 [pH] Normal 5.0-8.5 [facility] Comment on above: Performed By: #### V PPCR #### [facility] ([id number]) [address] [place] [address] Protein Ql (U) Negative Normal NEG [facility] Comment on above: Performed By: #### V PPCR #### [facility] ([id number]) [address] [facility] [address] [place] [address] R.B.CELLS 5 /hpf Normal 0-5 [facility] Comment on above: Performed By: #### V PPCR #### [facility] ([id number]) [address] [facility] [address] [place] [address] Specific gravity (U) [Rel density] 1.025 Normal 1.003-1.03 5 [facility] Comment on above: Performed By: #### V PPCR #### [facility] ([id number]) [address] [facility] [address] [place] [address] SQUAMOUS EPITHELIUM 40 /hpf High 0-5 [facility] Comment on above: Performed By: #### V PPCR #### [facility] ([id number]) [address] [place] [address] [address] [place] [address] TURBIDITY HAZY Abnormal CLEAR [facility] Comment on above: Performed By: #### V PPCR #### [facility] ([id number]) [address] [facility], [address] [place] [address] Urobilinogen Qn (U) 0.2 {Krishna'U}/dL Normal <1.1 [facility] Comment on above: Performed By: #### V PPCR #### [facility] ([id number]) [address] [place] [address] [address] [place] [address] W.B.CELLS 18 /hpf High 0-5 [facility] Comment on above: Performed By: #### V PPCR #### [facility] ([id number]) [address] [place] [address], [address] [place] [address] US PREG TRANSABD FU PER FETU on [...] Shah MD on 07/07/2024 2:54 PM Normal [facility] RAPID STREP SCR NURSINGon S. pyogenes Ag EIA Ql (Throat) Positive Abnormal NEG [facility] Comment on above: Performed By: #### C GS #### [facility] ([id number]) [address] [facility], [address] [place] [address] SARS/FLU A+B/RSV by NAAT/Mol ecularon 06-25-2024 SARS/FLU [...] operators who are performing tests using either [employer] or [employer] systems and is limited to laboratories that [...] repeat. Fact Sheet for Healthcare Providers: https://www.fda.go v/media/220331/jerrod nload Fact Sheet for Patients: https://www.fda.go v/media/513385/jerrod nload [facility] Comment on above: Performed By: #### C GS #### [facility] ([id number]) [address], [address] [place] [address] BASIC METABOLIC PANLon 05-15 Anion gap [Moles/Vol] 6 mmol/L Normal 5-15 [facility] Comment on above: Performed By: #### C GS #### [facility] ([id number]) [address], [address] [place] [address] Calcium [Mass/Vol] 9.8 mg/dL Normal 8.5-10.5 [facility] Comment on above: Performed By: #### C GS #### [facility] ([id number]) [address], [address] [place] [address] Chloride [Moles/Vol] 105 mmol/L Normal 98-109 [facility] Comment on above: Performed By: #### C GS #### [facility] ([id number]) [address], [address] [place] [address] CO2 [Moles/Vol] 23 mmol/L Normal 22-32 [facility] Comment on above: Performed By: #### C GS #### [facility] ([id number]) [address], [address] [place] [address] Creatinine [Mass/Vol] 0.56 mg/dL Normal 0.40-1.00 [facility] Comment on above: Result Comment: METH OD TRACEABLE TO IDMS STANDARD Performed By: #### C GS #### [facility] ([id number]) [address], [address] [place] [address] eGFR (CKD-EPI) NON-RACE DEPENDENT >90 Normal >59 [facility] Comment on above: Result Comment: Reported eGFR is based on the CKD-EPI 2020 equation that does not use a race coefficient. Performed By: #### C GS #### [facility] ([id number]) [address], [address] [place] [address] Glucose [Mass/Vol] 88 mg/dL Normal 65-99 [facility] Comment on above: Performed By: #### C GS #### [facility] ([id number]) [address], [address] [place] [address] Potassium [Moles/Vol] 3.9 mmol/L Normal 3.5-5.0 [facility] Comment on above: Performed By: #### C GS #### [facility] ([id number]) [address], [address] [place] [address] Sodium [Moles/Vol] 134 mmol/L Normal 134-146 [facility] Comment on above: Performed By: #### C GS #### [facility] ([id number]) [address], [address] [place] [address] Urea nitrogen [Mass/Vol] 8 mg/dL Normal 5-23 [facility] Comment on above: Performed By: #### C GS #### [facility] ([id number]) [address], [address] [place] [address] CBC AND AUTO DIFFon 05-15-20 25 ABSOLUTE BASOPHIL 0.0 X10E9/L Normal 0.0-0.2 [facility] Comment on above: Performed By: #### C GS #### [facility] ([id number]) [address], [address] [place] [address] ABSOLUTE NEUTROPHIL 6.6 X10E9/L Normal 1.5-6.6 [facility] Comment on above: Performed By: #### C GS #### [facility] ([id number]) [address], [address] [place] [address] Basophils/100 WBC (Bld) 0.5 % Normal [facility] Comment on above: Performed By: #### C GS #### [facility] ([id number]) [address], [address] [place] [address] Eosinophils (Bld) [#/Vol] 0.0 10*3/uL Normal 0.0-0.4 [facility] Comment on above: Performed By: #### C GS #### [facility] ([id number]) [address], [address] [place] [address] Eosinophils/100 WBC (Bld) 0.4 % Normal [facility] Comment on above: Performed By: #### C GS #### [facility] ([id number]) [address] [address] [place] [address] Erythrocyte distribution width (RBC) [Ratio] 14.2 % Normal 11.5-15.0 [facility] Comment on above: Performed By: #### C GS #### [facility] ([id number]) [address] [address] [place] [address] Hematocrit (Bld) [Volume fraction] 37.8 % Normal 35-47 [facility] Comment on above: Performed By: #### C GS #### [facility] ([id number]) [address] [address] [place] [address] Hemoglobin (Bld) [Mass/Vol] 13.0 g/dL Normal 11.7-15. 5 [facility] Comment on above: Performed By: #### C GS #### [facility] ([id number]) [address] [address] [place] [address] Lymphocytes (Bld) [#/Vol] 1.8 10*3/uL Normal 1.0-3.5 [facility] Comment on above: Performed By: #### C GS #### [facility] ([id number]) [address] [address] [place] [address] Lymphocytes/100 WBC (Bld) 20.4 % Normal [facility] Comment on above: Performed By: #### C GS #### [facility] ([id number]) [address], [address] [place] [address] MCH (RBC) [Entitic mass] 27.8 pg Normal 27-34 [facility] Comment on above: Performed By: #### C GS #### [facility] ([id number]) [address], [address] [place] [address] MCHC (RBC) [Mass/Vol] 34.3 g/dL Normal 32-36 [facility] Comment on above: Performed By: #### C GS #### [facility] ([id number]) [address], [address] [place] [address] MCV (RBC) [Entitic vol] 81 fL Normal 80-[address] [facility] Comment on above: Performed By: #### C GS #### [facility] ([id number]) [address], [address] [place] [address] Monocytes (Bld) [#/Vol] 0.4 10*3/uL Normal 0-0.9 [facility] Comment on above: Performed By: #### C GS #### [facility] ([id number]) [address], [address] [place] [address] Monocytes/100 WBC (Bld) 4.2 % Normal [facility] Comment on above: Performed By: #### C GS #### [facility] ([id number]) [address], [address] [place] [address] Neutrophils/100 WBC (Bld) 74.5 % Normal [facility] Comment on above: Performed By: #### C GS #### [facility] ([id number]) [address] [address] [place] [address] Platelet mean volume (Bld) [Entitic vol] 9.1 fL Normal 7-12 [facility] Comment on above: Performed By: #### C GS #### [facility] ([id number]) [address] [place] [address] Platelets (Bld) [#/Vol] 269 10*3/uL Normal 150-450 [facility] Comment on above: Performed By: #### C GS #### [facility] ([id number]) [address] [address] [place] [address] RBC COUNT 4.66 X10E12/L Normal 3.80-5.20 [facility] Comment on above: Performed By: #### C GS #### [facility] ([id number]) [address] [address] WBC (Bld) [#/Vol] 8.8 10*3/uL Normal 4.0-11.0 [facility] Comment on above: Performed By: #### C GS #### [facility] ([id number]) [address] [address] CHLAMYDIA/GC BY PCRon 2024 CHLAMYDIA/GC BY PCR [...] are dependent on adequate specimen collection. Normal [facility] Comment on above: Performed By: #### C GS #### [facility] ([id number]) [address], [address] [address] HCG ( test) Ql (U)o n 05-15-2024 Beta HCG ( test) Ql (U) Positive Abnormal NEG [facility] Comment on above: Performed By: #### D JARAMILLO #### [facility] ([id number]) [address] [place] [address], [place] [address] HCG.beta subunit IA 3rd IS Q non 05-15-2024 HCG.beta subunit Qn [id number] m[IU]/mL Normal [facility] Comment on above: Result Comment: NEW REFERENCE [...] neoplasms. Performed By: #### C GS #### [facility] ([id number]) [address] [place] [address], [address] [place] [address] URINE CULTUREon 05-15-2024 Bacteria identified Cx Nom (U) CULTURE RESULTS >100,000 ORGANISMS/ML NORMAL UROGENITAL ALEX Normal [facility] Comment on above: Performed By: #### C GS #### [facility] ([id number]) [address] [place] [address], [address] [place] [address] URN MACROSCOPIC NURon 2024 BILIRUBIN ELOISA Negative Normal NEG [facility] Comment on above: Performed By: #### D JARAMILLO #### [facility] ([id number]) [address] [place] [address] BLOOD/HGB ELOISA Negative Normal NEG [facility] Comment on above: Performed By: #### D JARAMILLO #### [facility] ([id number]) [address] [place] [address] GLUCOSE ELOISA Negative Normal NEG [facility] Comment on above: Performed By: #### D JARAMILLO #### [facility] ([id number]) [address] [place] [address] KETONES ELOISA Negative Normal NEG [facility] Comment on above: Performed By: #### D JARAMILLO #### [facility] ([id number]) [address] [place] [address] LEUKOCYTE ESTERASE ELOISA Large Abnormal NEG [facility] Comment on above: Performed By: #### D JARAMILLO #### [facility] ([id number]) [address] [place] [address] NITRITE ELOISA Negative Normal NEG [facility] Comment on above: Performed By: #### D JARAMILLO #### [facility] ([id number]) [address] [place] [address] PH ELOISA 6.0 Normal 5.0-8.5 [facility] Comment on above: Performed By: #### D JARAMILLO #### [facility] ([id number]) [address] [place] [address] PROTEIN ELOISA Negative Normal NEG [facility] Comment on above: Performed By: #### D JARAMILLO #### [facility] ([id number]) [address] [place] [id number] SPECIFIC GRAVITY ELOISA >=1.030 Normal 1.003-[address] [place] [address] Comment on above: Performed By: #### D JARAMILLO #### [facility] ([id number]) [address] [place] [address]154 UROBILINOGEN ELOISA 1.0 eu/dL Normal <1.1 [facility] Comment on above: Performed By: #### D JARAMILLO #### [facility] ([id number]) [address] [place] [id number] US PREG LESS THAN 14 WKS ALEJANDRA Crow 05-15-2024 US PREG LESS THAN 14 WKS SINGLE US PREG LESS THAN 14 WKS SINGLE US PREG LESS THAN 14 WKS SINGLE: 05/15/2024 3:42 PM Clinical: Bleeding in early . Real-time transabdominal sonography pelvis performed.. No comparison. There is a single intrauterine with cardiac activity 152 beats per minute. Bernard-rump length of 5.9 cm corresponds to 12 week 3 day gestation. Amount amniotic fluid is normal. Placenta not well seen due to early gestational age. Maternal ovaries are unremarkable. No cul-de-sac fluid seen. Impression: * Single intrauterine 12 week 3 day gestation with cardiac activity. * Ultrasound KARTIK 11/24/2024. 58 Finalized by Fernandez Hernandez MD on 05/15/2024 4:06 PM Normal [facility] VAGINITIS PANEL PCRon 2024 VAGINITIS PANEL PCR [...] clinical presentation to determine patient diagnosis. Normal [facility] Comment on above: Performed By: #### C #### [facility] ([id number]) [address], [address] [place] [address] XR CHEST 2 VWSon 03-15-2024 XR CHEST 2 VWS XR CHEST 2 VWS XR CHEST 2 VWS INDICATION: Persistent cough COMPARISON: X-ray 06/23/2022 FINDINGS: Cardiomediastinal silhouette and pulmonary vasculature are within normal limits. Lungs and pleural space are clear. There is no pleural effusion or pneumothorax. IMPRESSION: No acute cardiopulmonary process. 32 Finalized by Ravinder Roca on 03/15/2024 3:56 PM Normal [facility] CBC AND AUTO DIFFon 11-27-19 ABSOLUTE BASOPHIL 0.0 X10E9/L Normal 0.0-0.2 [facility] Comment on above: Performed By: #### D JARAMILLO #### [facility] ([id number]) [address] [place] [address] 94752 ABSOLUTE NEUTROPHIL 6.4 X10E9/L Normal 1.5-6.6 [facility] Comment on above: Performed By: #### D JARAMILLO #### [facility] ([id number]) [address] [place] [address] 97870 Basophils/100 WBC (Bld) 0.2 % Normal [facility] Comment on above: Performed By: #### D JARAMILLO #### [facility] ([id number]) [address] [place] [address] 03970 Eosinophils (Bld) [#/Vol] 0.0 10*3/uL Normal 0.0-0.4 [facility] Comment on above: Performed By: #### D JARAMILLO #### [facility] ([id number]) [address] [place] [address] 72747 Eosinophils/100 WBC (Bld) 0.3 % Normal [facility] Comment on above: Performed By: #### D JARAMILLO #### [facility] ([id number]) [address] [place] [address] 23630 Erythrocyte distribution width (RBC) [Ratio] 13.9 % Normal 11.5-15.0 [facility] Comment on above: Performed By: #### D JARAMILLO #### [facility] ([id number]) [address] [place] [address] 82065 Hematocrit (Bld) [Volume fraction] 31.9 % Low 35-47 [facility] Comment on above: Performed By: #### D JARAMILLO #### [facility] ([id number]) [address] [place] [address] 70706 Hemoglobin (Bld) [Mass/Vol] 11.0 g/dL Low 11.7-15. 5 [facility] Comment on above: Performed By: #### D JARAMILLO #### [facility] ([id number]) [address] [place] [address] 38055 Lymphocytes (Bld) [#/Vol] 2.0 10*3/uL Normal 1.0-3.5 [facility] Comment on above: Performed By: #### D JARAMILLO #### [facility] ([id number]) [address] [place] [address] 52016 Lymphocytes/100 WBC (Bld) 21.9 % Normal [facility] Comment on above: Performed By: #### D JARAMILLO #### [facility] ([id number]) [address] [place] [address] 26657 MCH (RBC) [Entitic mass] 29.5 pg Normal 27-34 [facility] Comment on above: Performed By: #### D JARAMILLO #### [facility] ([id number]) [address] [place] [address] 76864 MCHC (RBC) [Mass/Vol] 34.4 g/dL Normal 32-36 [facility] Comment on above: Performed By: #### D JARAMILLO #### [facility] ([id number]) [address] [place] [address] 98850 MCV (RBC) [Entitic vol] 86 fL Normal 80-[address] [facility] Comment on above: Performed By: #### D JARAMILLO #### [facility] ([id number]) [address] [place] [address] 39362 Monocytes (Bld) [#/Vol] 0.6 10*3/uL Normal 0-0.9 [facility] Comment on above: Performed By: #### D JARAMILLO #### [facility] ([id number]) [address] [place] [address] 72308 Monocytes/100 WBC (Bld) 6.8 % Normal [facility] Comment on above: Performed By: #### D JARAMILLO #### [facility] ([id number]) [address] [place] [address] 93102 Neutrophils/100 WBC (Bld) 70.8 % Normal [facility] Comment on above: Performed By: #### D JARAMILLO #### [facility] ([id number]) [address] [place] [address] 72105 Platelet mean volume (Bld) [Entitic vol] 8.6 fL Normal 7-12 [facility] Comment on above: Performed By: #### D JARAMILLO #### [facility] ([id number]) [address] [place] [address] 63989 Platelets (Bld) [#/Vol] 205 10*3/uL Normal 150-450 [facility] Comment on above: Performed By: #### D JARAMILLO #### [facility] ([id number]) [address] [place] [address] 81824 RBC COUNT 3.72 X10E12/L Low 3.80-5.20 [facility] Comment on above: Performed By: #### D JARAMILLO #### [facility] ([id number]) [address] [place] [address] 80726 WBC (Bld) [#/Vol] 9.0 10*3/uL Normal 4.0-11.0 [facility] Comment on above: Performed By: #### D JARAMILLO #### [facility] ([id number]) [address] [place] [address] 00668 COMPREHENSIVE METABOLIC PANE Steven 11-27-2023 Albumin [Mass/Vol] 3.0 g/dL Low 3.2-5.3 [facility] Comment on above: Performed By: #### D JARAMILLO #### [facility] ([id number]) [address] [place] [address], [place] [address] ALP [Catalytic activity/Vol] 149 U/L High 39-130 [facility] Comment on above: Performed By: #### D JARAMILLO #### [facility] ([id number]) [address] [place] [address] [place] [address] ALT [Catalytic activity/Vol] 13 U/L Normal 0-31 [facility] Comment on above: Performed By: #### D JARAMILLO #### [facility] ([id number]) [address] [place] [address] [place] [address] Anion gap [Moles/Vol] 6 mmol/L Normal 5-15 [facility] Comment on above: Performed By: #### D JARAMILLO #### [facility] ([id number]) [address] [place] [address] 72173 AST [Catalytic activity/Vol] 16 U/L Normal 0-41 [facility] Comment on above: Performed By: #### D JARAMILLO #### [facility] ([id number]) [address] [place] [address] [place] [address] Bilirubin [Mass/Vol] 0.6 mg/dL Normal 0.3-1.2 [facility] Comment on above: Performed By: #### D JARAMILLO #### [facility] ([id number]) [address] [place] [address] 81229 Calcium [Mass/Vol] 8.4 mg/dL Low 8.5-10.5 [facility] Comment on above: Performed By: #### D JARAMILLO #### [facility] ([id number]) [address] [place] [address] [place] [address] Chloride [Moles/Vol] 106 mmol/L Normal 98-109 [facility] Comment on above: Performed By: #### D JARAMILLO #### [facility] ([id number]) [address] [place] [address] 06961 CO2 [Moles/Vol] 23 mmol/L Normal 22-32 [facility] Comment on above: Performed By: #### D JARAMILLO #### [facility] ([id number]) [address] [place] [address] 03858 Creatinine [Mass/Vol] 0.51 mg/dL Normal 0.40-1.00 [facility] Comment on above: Result Comment: METH OD TRACEABLE TO IDMS STANDARD Performed By: #### D JARAMILLO #### [facility] ([id number]) [address] [place] [address] 99045 eGFR (CKD-EPI) NON-RACE DEPENDENT >90 Normal >59 [facility] Comment on above: Result Comment: Reported eGFR is based on the CKD-EPI 2021 equation that does not use a race coefficient. Performed By: #### D JARAMILLO #### [facility] ([id number]) [address] [place] [address] 03818 Glucose [Mass/Vol] 82 mg/dL Normal 65-99 [facility] Comment on above: Performed By: #### D JARAMILLO #### [facility] ([id number]) [address] [place] [address] 65060 Potassium [Moles/Vol] 3.8 mmol/L Normal 3.5-5.0 [facility] Comment on above: Performed By: #### D JARAMILLO #### [facility] ([id number]) [address] [place] [address] 01583 Protein [Mass/Vol] 6.7 g/dL Normal 6.0-8.0 [facility] Comment on above: Performed By: #### D JARAMILLO #### [facility] ([id number]) [address] [place] [address] 63325 Sodium [Moles/Vol] 135 mmol/L Normal 134-146 [facility] Comment on above: Performed By: #### D JARAMILLO #### [facility] ([id number]) [address] [place] [address] 32525 Urea nitrogen [Mass/Vol] 5 mg/dL Normal 5-23 [facility] Comment on above: Performed By: #### D JARAMILLO #### [facility] ([id number]) [address] [place] [address] 05291 LDH [Catalytic activity/Vol] on 11-27-2023 LDH 68 U/L Low 100-235 [facility] Comment on above: Performed By: #### D JARAMILLO #### [facility] ([id number]) [address] [place] [address] 78542 PROTEIN CREAT RATIOon 2023 RANDOM URINE PROTEIN 150 mg/L High <120 [facility] Comment on above: Performed By: #### D JARAMILLO #### [facility] ([id number]) [address] [place] [address] 87309 U/PRO/SMALL OFFSET PRINTER RATIO CALC 0.12 Normal <0.2 [facility] Comment on above: Result Comment: Neph rotic Syndrome is associated with ratios >3.5 Performed By: #### D JARAMILLO #### [facility] ([id number]) [address] [place] [address] 15361 URINE CREATININE,RDM 128.08 mg/dL Normal Pr [facility] Comment on above: Performed By: #### D JARAMILLO #### [facility] ([id number]) [address] [place] [address] 27188 URIC ACIDon 11-27-2023 Urate [Mass/Vol] 3.6 mg/dL Normal 2.6-7.2 [facility] Comment on above: Performed By: #### D JARAMILLO #### [facility] ([id number]) [address] [place] [address] 62997 CHLAMYDIA/GC BY PCRon 2023 CHLAMYDIA/GC BY PCR [...] are dependent on adequate specimen collection. Normal [facility] Comment on above: Performed By: #### C GS #### [facility] ([id number]) [address] [place] [address], [address] [place] [address] DRUG SCREEN, URINEon 024 AMPHETAMINE/METHAMP Negative Normal NEG [facility] Comment on above: Result Comment: AMPH /METH screening cut off = 1000 ng/mL Performed By: #### D JARAMILLO #### [facility] ([id number]) [address] [place] [address] 00582 BARBITURATES Negative Normal NEG [facility] Comment on above: Result Comment: Jami iturates screening cut off value = 200 ng/mL Performed By: #### D JARAMILLO #### [facility] ([id number]) [address] [place] [address] 13441 BENZODIAZEPINES Negative Normal NEG [facility] Comment on above: Result Comment: Hunter odiazepines screening cut off value = 200 ng/mL Performed By: #### D JARAMILLO #### [facility] ([id number]) [address] [place] [address] 33923 CANNABINOIDS Negative Normal NEG [facility] Comment on above: Result Comment: Latha abinoids/THC screening cut off value = 50 ng/mL Performed By: #### D JARAMILLO #### [facility] ([id number]) [address] [place] [address] 34713 COCAINE METABOLITE Negative Normal NEG [facility] Comment on above: Result Comment: Coca ine screening cut off value = 300 ng/mL Performed By: #### D JARAMILLO #### [facility] ([id number]) [address] [place] [address] 58510 ECSTASY Negative Normal NEG [facility] Comment on above: Result Comment: Ecst asy screening cut off value = 500 ng/mL This report is intended for use in clinical monitoring or management of patients. Performed By: #### D JARAMILLO #### [facility] ([id number]) [address] [place] [address] 11526 METHADONE Negative Normal NEG [facility] Comment on above: Result Comment: Meth adone screening cut off value = 300 ng/mL. Performed By: #### D JARAMILLO #### [facility] ([id number]) [address] [place] [address] 03837 OPIATES Negative Normal NEG [facility] Comment on above: Result Comment: Opia olivia screening cut off value = 300 ng/mL NOTE: This test is used for the detection of codeine, hydrocodone (>1000 ng/mL), morphine and hydromorphone (>900 ng/mL) in urine. Performed By: #### D JARAMILLO #### [facility] ([id number]) [address] [place] [address] [place] [address] OXYCODONE Negative Normal NEG [facility] Comment on above: Result Comment: Oxyc odone screening cut off value = 300 ng/mL NOTE: This test is used for the detection of oxycodone and oxymorphone in urine. Performed By: #### D JARAMILLO #### [facility] ([id number]) [address] [place] [address] [place] [address] PHENCYCLIDINE Negative Normal NEG [facility] Comment on above: Result Comment: Phen cyclidine screening cut off value = 25 ng/mL Performed By: #### D JARAMILLO #### [facility] ([id number]) [address] [place] [address] 05305 Fibronectin. Ql (Vag fl d)on 11-17-2023 FIBRONECTIN Negative Normal NEG [facility] Comment on above: Performed By: #### V PPCR #### [facility] ([id number]) [address] [place] [address], [address] [place] [address] #### [id number] #### [facility] ([id number]) [address] [place] [address] 87602 STREP B SCREEN CULTUREon S. agalactiae Org specific c x Ql (Vag+Rectum) CULTURE RESULTS NEGATIVE FOR GROUP B STREPTOCOCCUS BY NUCLEIC ACID AMPLIFICATION Normal [facility] Comment on above: Performed By: #### D JARAMILLO #### [facility] ([id number]) [address] [place] [address] 33869 URINALYSISon 11-17-2023 Bilirubin Ql (U) SMALL Abnormal NEG [facility] Comment on above: Result Comment: Not confirmed, interpret positive results with caution. Performed By: #### U A #### [facility] ([id number]) [address] [place] [address] 35949 BLOOD/HGB Negative Normal NEG [facility] Comment on above: Performed By: #### U A #### [facility] ([id number]) [address] [place] [address] 26101 Color (U) YELLOW Normal YELLOW [facility] Comment on above: Performed By: #### U A #### [facility] ([id number]) [address] [place] [address] 71068 Glucose Ql (U) Negative Normal NEG [facility] Comment on above: Performed By: #### U A #### [facility] ([id number]) [address] [place] [address] [place] [address] Ketones Ql (U) >80 Abnormal NEG [facility] Comment on above: Performed By: #### U A #### [facility] ([id number]) [address] [place] [address] 87964 Leukocyte esterase Test stri p Ql (U) MODERATE Abnormal NEG [facility] Comment on above: Performed By: #### U A #### [facility] ([id number]) [address] [place] [address] 15604 Nitrite Ql (U) Negative Normal NEG [facility] Comment on above: Performed By: #### U A #### [facility] ([id number]) [address] [place] [address] 73983 pH (U) 6.0 [pH] Normal 5.0-8.5 [facility] Comment on above: Performed By: #### U A #### [facility] ([id number]) [address] [place] [address] 85108 Protein Ql (U) 30 mg/dL Abnormal NEG [facility] Comment on above: Performed By: #### U A #### [facility] ([id number]) [address] [place] [address] [place] [address] R.B.CELLS 0 /hpf Normal 0-5 [facility] Comment on above: Performed By: #### U A #### [facility] ([id number]) [address] [place] [address] [place] [address] Specific gravity (U) [Rel density] >1.030 Normal 1.003-1.03 5 [facility] Comment on above: Performed By: #### U A #### [facility] ([id number]) [address] [place] [address] 03885 SQUAMOUS EPITHELIUM 13 /hpf High 0-5 [facility] Comment on above: Performed By: #### U A #### [facility] ([id number]) [address] [place] [address] 26727 TURBIDITY CLEAR Normal CLEAR [facility] Comment on above: Performed By: #### U A #### [facility] ([id number]) [address] [place] [address] 81715 Urobilinogen Qn (U) 1.0 {Krishna'U}/dL Normal <1.1 [facility] Comment on above: Performed By: #### U A #### [facility] ([id number]) [address] [place] [address] 23513 W.B.CELLS 9 /hpf High 0-5 [facility] Comment on above: Performed By: #### U A #### [facility] ([id number]) [address] [place] [address] 84937 URINE CULTUREon 11-17-2023 Bacteria identified Cx Nom (U) CULTURE RESULTS >100,000 ORGANISMS/ML NORMAL UROGENITAL ALEX Normal [facility] Comment on above: Performed By: #### D JARAMILLO #### [facility] ([id number]) [address] [place] [address] 68594 VAGINITIS PANEL PCRon 2023 VAGINITIS PANEL PCR [...] clinical presentation to determine patient diagnosis. Normal [facility] Comment on above: Performed By: #### V PPCR #### [facility] ([id number]) [address], [address] [place] [address] #### [id number] #### [facility] ([id number]) [address] [place] [address], [place] [address] [place] BIOPHYSICAL PROFILE FET W O NSTon [...] Danny Mcdonough MD on 10/22/2023 5:06 AM Normal [facility] CHLAMYDIA/GC BY PCRon 2023 CHLAMYDIA/GC BY PCR [...] are dependent on adequate specimen collection. Normal [facility] Comment on above: Performed By: #### C GS #### [facility] ([id number]) [address], [address] [place] [address] DRUG SCREEN, URINEon 024 AMPHETAMINE/METHAMP Negative Normal NEG [facility] Comment on above: Result Comment: AMPH /METH screening cut off = 1000 ng/mL Performed By: #### D JARAMILLO #### [facility] ([id number]) [address] [place] [address] 38968 BARBITURATES Negative Normal NEG [facility] Comment on above: Result Comment: Jami iturates screening cut off value = 200 ng/mL Performed By: #### D JARAMILLO #### [facility] ([id number]) [address] [place] [address] 27127 BENZODIAZEPINES Negative Normal NEG [facility] Comment on above: Result Comment: Hunter odiazepines screening cut off value = 200 ng/mL Performed By: #### D JARAMILLO #### [facility] ([id number]) [address] [place] [address] 72731 CANNABINOIDS Negative Normal NEG [facility] Comment on above: Result Comment: [place] abinoids/THC screening cut off value = 50 ng/mL Performed By: #### D JARAMILLO #### [facility] ([id number]) [address] [place] [address] 07137 COCAINE METABOLITE Negative Normal NEG [facility] Comment on above: Result Comment: Coca ine screening cut off value = 300 ng/mL Performed By: #### D JARAMILLO #### [facility] ([id number]) [address] [place] [address] 06551 ECSTASY Negative Normal NEG [facility] Comment on above: Result Comment: Ecst asy screening cut off value = 500 ng/mL This report is intended for use in clinical monitoring or management of patients. Performed By: #### D JARAMILLO #### [facility] ([id number]) [address] [place] [address] 24671 METHADONE Negative Normal NEG [facility] Comment on above: Result Comment: Meth adone screening cut off value = 300 ng/mL. Performed By: #### D JARAMILLO #### [facility] ([id number]) [address] [place] [address] 93066 OPIATES Negative Normal NEG [facility] Comment on above: Result Comment: Opia olivia screening cut off value = 300 ng/mL NOTE: This test is used for the detection of codeine, hydrocodone (>1000 ng/mL), morphine and hydromorphone (>900 ng/mL) in urine. Performed By: #### D JARAMILLO #### [facility] ([id number]) [address] [place] [address] 62156 OXYCODONE Negative Normal NEG [facility] Comment on above: Result Comment: Oxyc odone screening cut off value = 300 ng/mL NOTE: This test is used for the detection of oxycodone and oxymorphone in urine. Performed By: #### D JARAMILLO #### [facility] ([id number]) [address] [place] [address] 82121 PHENCYCLIDINE Negative Normal NEG [facility] Comment on above: Result Comment: Phen cyclidine screening cut off value = 25 ng/mL Performed By: #### D JARAMILLO #### [facility] ([id number]) [address] [place] [address] [place] [address] URINALYSISon 10-17-2023 Bilirubin Ql (U) Negative Normal NEG [facility] Comment on above: Performed By: #### U A #### [facility] ([id number]) [address] [place] [address] [place] [address] BLOOD/HGB Negative Normal NEG [facility] Comment on above: Performed By: #### U A #### [facility] ([id number]) [address] [place] [address] [place] [address] CA OXALATE CRYSTALS 4 Abnormal NONE [facility] Comment on above: Performed By: #### U A #### [facility] ([id number]) [address] [place] [address] [place] [address] Color (U) YELLOW Normal YELLOW [facility] Comment on above: Performed By: #### U A #### [facility] ([id number]) [address] [place] [address] [place] [address] Glucose Ql (U) Negative Normal NEG [facility] Comment on above: Performed By: #### U A #### [facility] ([id number]) [address] [place] [address] [place] [address] Ketones Ql (U) Trace Abnormal NEG [facility] Comment on above: Performed By: #### U A #### [facility] ([id number]) [address] [place] [address] [place] [address] Leukocyte esterase Test stri p Ql (U) SMALL Abnormal NEG [facility] Comment on above: Performed By: #### U A #### [facility] ([id number]) [address] [place] [address] 80114 Nitrite Ql (U) Negative Normal NEG [facility] Comment on above: Performed By: #### U A #### [facility] ([id number]) [address] [place] [address] [place] [address] pH (U) 6.5 [pH] Normal 5.0-8.5 [facility] Comment on above: Performed By: #### U A #### [facility] ([id number]) [address] [place] [address] 02688 Protein Ql (U) 30 mg/dL Abnormal NEG [facility] Comment on above: Performed By: #### U A #### [facility] ([id number]) [address] [place] [address], [place] [address] R.B.CELLS 6 /hpf High 0-5 [facility] Comment on above: Performed By: #### U A #### [facility] ([id number]) [address] [place] [address], [place] [address] Specific gravity (U) [Rel density] 1.025 Normal 1.003-1.03 5 [facility] Comment on above: Performed By: #### U A #### [facility] ([id number]) [address] [place] [address] 98247 SQUAMOUS EPITHELIUM 10 /hpf High 0-5 [facility] Comment on above: Performed By: #### U A #### [facility] ([id number]) [address] [place] [address] 36905 TURBIDITY CLEAR Normal CLEAR [facility] Comment on above: Performed By: #### U A #### [facility] ([id number]) [address] [place] [address] 16596 Urobilinogen Qn (U) 2.0 {Krishna'U}/dL High <1.1 [facility] Comment on above: Performed By: #### U A #### [facility] ([id number]) [address] [place] [address] [id number] W.B.CELLS 30 /hpf High 0-5 [facility] Comment on above: Performed By: #### U A #### [facility] ([id number]) [address] [place] [address] [id number] VAGINITIS PANEL PCRon 2023 VAGINITIS PANEL PCR [...] clinical presentation to determine patient diagnosis. Normal [facility] Comment on above: Performed By: #### V PPCR #### [facility] ([id number]) [address], [address] [place] [address] CBC AND AUTO DIFFon 09-18-19 24 ABSOLUTE BASOPHIL 0.0 X10E9/L Normal 0.0-0.2 [facility] Comment on above: Performed By: #### C OMID, [id number], CBCA #### [facility] ([id number]) [address] [place] [id number] ABSOLUTE NEUTROPHIL 7.3 X10E9/L High 1.5-6.6 [facility] Comment on above: Performed By: #### C OMID, [id number], CBCA #### [facility] ([id number]) [address] [place] [address] [id number] Basophils/100 WBC (Bld) 0.3 % Normal P [facility] Comment on above: Performed By: #### C OMID, 3039-3, CBCA #### [facility] ([id number]) [address] [place] [address] 88629 Eosinophils (Bld) [#/Vol] 0.0 10*3/uL Normal 0.0-0.4 [facility] Comment on above: Performed By: #### C OMID, 3, CBCA #### [facility] ([id number]) [address] [place] [address] 24320 Eosinophils/100 WBC (Bld) 0.5 % Normal [facility] Comment on above: Performed By: #### Ann-Marie ANNE, 3039-3, CBCA #### [facility] ([id number]) [address] [place] [address] 61651 Erythrocyte distribution width (RBC) [Ratio] 12.8 % Normal 11.5-15.0 [facility] Comment on above: Performed By: #### C OMID, 3039-3, CBCA #### [facility] ([id number]) [address] [place] [address] 17570 Hematocrit (Bld) [Volume fraction] 33.3 % Low 35-47 [facility] Comment on above: Performed By: #### C OMID, 3039-3, CBCA #### [facility] ([id number]) [address] [place], [place] [id number] Hemoglobin (Bld) [Mass/Vol] 12.0 g/dL Normal 11.7-15. 5 [facility] Comment on above: Performed By: #### C OMID, 3039-07, CBCA #### [facility] ([id number]) [address] [place], [place] [address] Lymphocytes (Bld) [#/Vol] 2.0 10*3/uL Normal 1.0-3.5 [facility] Comment on above: Performed By: #### C OMID, 3039-07, CBCA #### [facility] ([id number]) [address] [place], [place] [address] Lymphocytes/100 WBC (Bld) 20.3 % Normal [facility] Comment on above: Performed By: #### C OMID, 3039-3, CBCA #### [facility] ([id number]) [address] [place] [address] 36774 MCH (RBC) [Entitic mass] 30.8 pg Normal 27-34 [facility] Comment on above: Performed By: #### C OMID, 0-3, CBCA #### [facility] ([id number]) [address] [place] [address] 12386 MCHC (RBC) [Mass/Vol] 36.0 g/dL Normal 32-36 [facility] Comment on above: Performed By: #### C OMID, 0-3, CBCA #### [facility] ([id number]) [address] [place] [address] 74154 MCV (RBC) [Entitic vol] 85 fL Normal 80-100 [facility] Comment on above: Performed By: #### C OMID, 3040-3, CBCA #### [facility] ([id number]) [address] [place] [address] 51628 Monocytes (Bld) [#/Vol] 0.5 10*3/uL Normal 0-0.9 [facility] Comment on above: Performed By: #### C OMID, 3039-, CBCA #### [facility] ([id number]) [address] [place] [address] 94690 Monocytes/100 WBC (Bld) 5.2 % Normal [facility] Comment on above: Performed By: #### C OMID, 3039-, CBCA #### [facility] ([id number]) [address] [place] [address] 69714 Neutrophils/100 WBC (Bld) 73.7 % Normal [facility] Comment on above: Performed By: #### C OMID, 3039-, CBCA #### [facility] ([id number]) [address] [place] [address] 47037 Platelet mean volume (Bld) [Entitic vol] 8.3 fL Normal 7-12 [facility] Comment on above: Performed By: #### C OMID, 3039-, CBCA #### [facility] ([id number]) [address] [place] [address] 07481 Platelets (Bld) [#/Vol] 203 10*3/uL Normal 150-450 [facility] Comment on above: Performed By: #### C OMID, 0-3, CBCA #### [facility] ([id number]) [address] [place] [address] 48092 RBC COUNT 3.89 X10E12/L Normal 3.80-5.20 [facility] Comment on above: Performed By: #### C OMID, 3039-3, CBCA #### [facility] ([id number]) [address] [place] [address] 82623 WBC (Bld) [#/Vol] 9.8 10*3/uL Normal 4.0-11.0 [facility] Comment on above: Performed By: #### C OMID, 3039-3, CBCA #### [facility] ([id number]) [address] [place] [address] 54384 COMPREHENSIVE METABOLIC PANE Steven 09-18-2023 Albumin [Mass/Vol] 2.9 g/dL Low 3.2-5.3 [facility] Comment on above: Performed By: #### C OMID, 3039-, CBCA #### [facility] ([id number]) [address] [place] [address] 94805 ALP [Catalytic activity/Vol] 71 U/L Normal 39-130 [facility] Comment on above: Performed By: #### C OMID, 3039-07, CBCA #### [facility] ([id number]) [address] [place] [address] 64800 ALT [Catalytic activity/Vol] 9 U/L Normal 0-31 [facility] Comment on above: Performed By: #### C OMID, 3039-, CBCA #### [facility] ([id number]) [address] [place] [address] 81621 Anion gap [Moles/Vol] 10 mmol/L Normal 5-15 [facility] Comment on above: Performed By: #### C OMID, 3039-3, CBCA #### [facility] ([id number]) [address] [place] [address] 41852 AST [Catalytic activity/Vol] 15 U/L Normal 0-41 [facility] Comment on above: Performed By: #### C OMID, 3039-3, CBCA #### [facility] ([id number]) [address] [place] [address] 85598 Bilirubin [Mass/Vol] 0.4 mg/dL Normal 0.3-1.2 [facility] Comment on above: Performed By: #### C OMID, 3039-3, CBCA #### [facility] ([id number]) [address] [place] [address] 78952 Calcium [Mass/Vol] 8.2 mg/dL Low 8.5-10.5 [facility] Comment on above: Performed By: #### C OMID, 3039-, CBCA #### [facility] ([id number]) [address] [place] [address] 63781 Chloride [Moles/Vol] 103 mmol/L Normal 98-109 [facility] Comment on above: Performed By: #### C OMID, 3039-07, CBCA #### [facility] ([id number]) [address] [place] [address] 31592 CO2 [Moles/Vol] 21 mmol/L Low 22-32 [facility] Comment on above: Performed By: #### C OMID, 3039-07, CBCA #### [facility] ([id number]) [address] [place] [address] 68811 Creatinine [Mass/Vol] 0.51 mg/dL Normal 0.40-1.00 [facility] Comment on above: Result Comment: METH OD TRACEABLE TO IDMS STANDARD Performed By: #### C OMID, 3, CBCA #### [facility] ([id number]) [address] [place] [address] 76952 eGFR (CKD-EPI) NON-RACE DEPENDENT >90 Normal >59 [facility] Comment on above: Result Comment: Reported eGFR is based on the CKD-EPI 2020 equation that does not use a race coefficient. Performed By: #### C OMID, 3040-3, CBCA #### [facility] ([id number]) [address] [place] [address] 78692 Glucose [Mass/Vol] 92 mg/dL Normal 65-99 [facility] Comment on above: Performed By: #### C OMID, 3039-3, CBCA #### [facility] ([id number]) [address] [place] [address] 92585 Potassium [Moles/Vol] 3.7 mmol/L Normal 3.5-5.0 [facility] Comment on above: Performed By: #### Ann-Marie ANNE, 3039-3, CBCA #### [facility] ([id number]) [address] [place] [address] 18535 Protein [Mass/Vol] 6.5 g/dL Normal 6.0-8.0 [facility] Comment on above: Performed By: #### C OMID, 3039-07, CBCA #### [facility] ([id number]) [address] [place] [address] 86152 Sodium [Moles/Vol] 134 mmol/L Normal 134-146 [facility] Comment on above: Performed By: #### Ann-Marie ANNE, 3039-07, CBCA #### [facility] ([id number]) [address] [place] [address] 26876 Urea nitrogen [Mass/Vol] 14 mg/dL Normal 5-23 [facility] Comment on above: Performed By: #### Ann-Marie ANNE, 3039-3, CBCA #### [facility] ([id number]) [address] [place] [address] 44739 LIPASEon 09-18-2023 Lipase [Catalytic activity/Vol] 48 U/L High 17-40 [facility] Comment on above: Performed By: #### Ann-Marie ANNE, 3039-3, CBCA #### [facility] ([id number]) [address] [place] [address] 02869 URINE CULTUREon 09-18-2023 Bacteria identified Cx Nom (U) CULTURE RESULTS <10,000 ORGANISMS/ML NORMAL URO GENITAL ALEX Normal [facility] Comment on above: Performed By: #### 6 30-4 #### [facility] ([id number]) [address] [place] [address], [address] [place] [address] URN MACROSCOPIC NURon 2023 BILIRUBIN ELOISA Negative Normal NEG [facility] Comment on above: Performed By: #### N UM #### [facility] ([id number]) [address] [place] [address] 86638 BLOOD/HGB ELOISA Negative Normal NEG [facility] Comment on above: Performed By: #### N UM #### [facility] ([id number]) [address] [place] [address] 82872 GLUCOSE ELOISA Negative Normal NEG [facility] Comment on above: Performed By: #### N UM #### [facility] ([id number]) [address] [place] [address] 39894 KETONES ELOISA Negative Normal NEG [facility] Comment on above: Performed By: #### N UM #### [facility] ([id number]) [address] [place] [address] 80122 LEUKOCYTE ESTERASE ELOISA Negative Normal NEG Pr [facility] Comment on above: Performed By: #### N UM #### [facility] ([id number]) [address] [place] [address] 32526 NITRITE ELOISA Negative Normal NEG [facility] Comment on above: Performed By: #### N UM #### [facility] ([id number]) [address] [place] [address] 11788 PH ELOISA 7.0 Normal 5.0-8.5 [facility] Comment on above: Performed By: #### N UM #### [facility] ([id number]) [address] [place] [address] 06431 PROTEIN ELOISA Negative Normal NEG [facility] Comment on above: Performed By: #### N UM #### [facility] ([id number]) [address] [place] [address] 89514 SPECIFIC GRAVITY ELOISA 1.020 Normal 1.003-1 .03 5 [facility] Comment on above: Performed By: #### N UM #### [facility] ([id number]) [address] [place] [address] 15817 UROBILINOGEN ELOISA 0.2 eu/dL Normal <1.[address] [facility] Comment on above: Performed By: #### N UM #### [facility] ([id number]) [address] [place] [address] 63440 Thyroid profile includes TSH FT4on 08-29-2023 Free T4 [Mass/Vol] 0.71 ng/dL 0.61 - 1.60 ng/dL [facility] TSH Qn 2.04 m[IU]/L [facility] US PREG GREATER THAN 14 WKS SNGL TRANSABon 08-29-2023 US PREG GREATER THAN 14 WKS SNGL TRANSAB US PREG GREATER THAN 14 WKS SNGL TRANSAB *ADDENDUM*Addendum : Corrected impression: Estimated weight is 19.9%. 58 Finalized by Fernandez Hernandez MD on 08/29/2023 1:52 PM Normal [facility] US TRANSVAGINAL PREGon 08-28 US TRANSVAGINAL PREG US TRANSVAGINAL PREG *ADDENDUM*Addendum : Corrected impression: Estimated weight is 19.9%. 58 Finalized by Fernandez Hernandez MD on 08/29/2023 1:52 PM Normal [facility] Urinalysison 08-29-2023 Bilirubin Ql (U) Negative Negative^N egative [facility] Color (U) YELLOW YELLOW^YEL LOW [facility] Epithelial cells Auto (Urine sed) [#/Area] 12 High [facility] Glucose (U) [Mass/Vol] Negative Negat tong^N egative mg/dL [facility] Hemoglobin Auto test strip Q l (U) Negative Negative^N egative [facility] Interpretation and review of laboratory results Abnormal [facility] Ketones (U) [Mass/Vol] Negative Negat tong^N egative mg/dL [facility] Leukocyte esterase Auto test strip Ql (U) Large Abnormal Negative^N egative [facility] Mucus Ql (Urine sed) PRESENT Abnormal NONE^NONE [facility] Nitrite Auto test strip Ql (U) Negative [facility] pH (U) 6.5 [pH] 5.0 - 8.5 [facility] Protein (U) [Mass/Vol] Trace Abnormal Negat tong^N egative mg/dL [facility] RBC Auto (Urine sed) [#/Area] 2 [facility] Specific gravity Refractometry automated (U) [Rel density] 1.021 1.003 - 1.035 [facility] Spermatozoa LM Ql (Urine sed) PRESENT Abnormal NONE^N ONE [facility] Turbidity Ql (U) HAZY Abnormal CLEAR^LANDON R [facility] Urobilinogen Qn (U) NINF [facility] WBC Auto (Urine sed) [#/Area] 91 High [facility] Drug Screen, Urineon 024 Amphetamines Screen method >1000 ng/mL Ql (U) Negative Negative^N [facility] Comment on above: AMPH/METH screening cut off = 1000 ng/mL Barbiturates Screen Ql (U) Negative N egative^N [facility] Comment on above: Barbiturates screeni ng cut off value = 200 ng/mL Benzodiazepines Ql (U) Negative Negat tong^N [facility] Comment on above: Benzodiazepines scre ening cut off value = 200 ng/mL Cocaine Ql (U) Negative Negative^N [facility] Comment on above: Cocaine screening cu t off value = 300 ng/mL Interpretation and review of laboratory results Abnormal [facility] Methadone Screen Ql (U) Negative Nega tive^N [facility] Comment on above: Methadone screening cut off value = 300 ng/mL. Methylenedioxymethamphetamin e Screen Ql (U) Negative Negative^N [facility] Comment on above: Ecstasy screening cu t off value = 500 ng/mL This report is intended for use in clinical monitoring or management of patients. Opiates Screen Ql (U) Negative Negati ve^N [facility] Comment on above: Opiates screening cu t off value = 300 ng/mL NOTE: This test is used for the detection of codeine, hydrocodone (>1000 ng/mL), morphine and hydromorphone (>900 ng/mL) in urine. oxyCODONE Ql (U) Negative Negative^N [facility] Comment on above: Oxycodone screening cut off value = 300 ng/mL NOTE: This test is used for the detection of oxycodone and oxymorphone in urine. Phencyclidine Screen method >25 ng/mL Ql (U) Negative Negative^N [facility] Comment on above: Phencyclidine screen ing cut off value = 25 ng/mL Tetrahydrocannabinol Screen method >50 ng/mL Ql (U) Positive Abnormal Negative^N [facility] Comment on above: Confirmation availab le upon request. Cannabinoids/THC screening cut off value = 50 ng/mL [facility] HCG ( test) Ql (U)o n 08-22-2023 Beta HCG ( test) Ql (U) Positive Abnormal NEG [facility] Comment on above: Performed By: #### 2 106-3 #### [facility] ([id number]) [address] [place] [address] 72846 URN MACROSCOPIC NURon 2023 BILIRUBIN ELOISA Negative Normal NEG [facility] Comment on above: Performed By: #### N UM #### [facility] ([id number]) [address] [place] [address] 33500 BLOOD/HGB ELOISA Negative Normal NEG [facility] Comment on above: Performed By: #### N UM #### [facility] ([id number]) [address] [place] [address] 30317 GLUCOSE ELOISA Negative Normal NEG [facility] Comment on above: Performed By: #### N UM #### [facility] ([id number]) [address] [place] [address] 30087 KETONES ELOISA Trace Abnormal NEG [facility] Comment on above: Performed By: #### N UM #### [facility] ([id number]) [address] [place] [address] 07603 LEUKOCYTE ESTERASE ELOISA Small Abnormal NEG [facility] Comment on above: Performed By: #### N UM #### [facility] ([id number]) [address] [place] [address] 05352 NITRITE ELOISA Negative Normal NEG [facility] Comment on above: Performed By: #### N UM #### [facility] ([id number]) [address] [place] [address] 27976 PH ELOISA 6.0 Normal 5.0-8.5 [facility] Comment on above: Performed By: #### N UM #### [facility] ([id number]) [address] [place] [address] 27761 PROTEIN ELOISA Negative Normal NEG [facility] Comment on above: Performed By: #### N UM #### [facility] ([id number]) [address] [place] [address] 70102 SPECIFIC GRAVITY ELOISA >=1.030 Normal 1.003-1 .03 5 [facility] Comment on above: Performed By: #### N UM #### [facility] ([id number]) [address] [place] [address] 30829 UROBILINOGEN ELOISA 0.2 eu/dL Normal <1.[address] [facility] Comment on above: Performed By: #### N UM #### [facility] ([id number]) [address] [place] [address] 81459 Cult,Urineon 11-06-2022 Cult,Urine Specimen Description .Source, Unspecified Culture ESCHERICHIA COLI >[id number] CFU/ML Report Status FINAL 11/06/2022 SUSCEPTIBILITY Organism [...] Tobramycin <=1 SUSCEPTIBLE Trimethoprim/Sulfa >=320 RESISTANT Resistant [facility] Comment on above: Performed By: #### U RC #### [id number] [place], [place] [id number] Process Lead: Tripp Martínez MD [address] [place] [address] Process Lead: Jean Aldrich MD CBC with Diffon 11-04-2022 Abs. Basophil <0.03 Normal 0.00-0.20 [facility] Comment on above: Performed By: #### C P, CDP, LIP #### [address] [place] [address] Process Lead: Jean Aldrich MD Abs.Imm.Granulocyte <0.03 Normal 0.00-0.30 [facility] Comment on above: Performed By: #### C P, CDP, LIP #### [address] [place] [id number] Process Lead: Jean Aldrich MD Abs.Neutrophil (Seg) 4.42 k/uL Normal 1.80-8.00 [facility] Comment on above: Performed By: #### C P, CDP, LIP #### [address] [place] [id number] Process Lead: Jean Aldrich MD Basophils/100 WBC (Bld) 0 % Normal 0-2 M [facility] Comment on above: Performed By: #### C P, CDP, LIP #### [address] [place] [id number] Process Lead: Jean Aldrich MD Eosinophils (Bld) [#/Vol] 0.06 10*3/uL Normal 0.00-0.4 4 [facility] Comment on above: Performed By: #### C P, CDP, LIP #### [address] [place], [place] [address] Process Lead: Jean Aldrich MD Eosinophils/100 WBC (Bld) 1 % Normal 1-4 [facility] Comment on above: Performed By: #### C P, CDP, LIP #### [address] [place], [place] [address] Process Lead: Jean Aldrich MD Erythrocyte distribution width (RBC) [Ratio] 12.0 % Normal 11.8-14.4 [facility] Comment on above: Performed By: #### C P, CDP, LIP #### [address] [place] [id number] Process Lead: Jean Aldrich MD Hematocrit (Bld) [Volume fraction] 33.9 % Low 36.3-47.1 [facility] Comment on above: Performed By: #### C P, CDP, LIP #### [address] [place], [facility]83 Process Lead: Jean Aldrich MD Hemoglobin (Bld) [Mass/Vol] 12.2 g/dL Normal 11.9-15. 1 [facility] Comment on above: Performed By: #### C P, CDP, LIP #### [address] [place], [facility]83 Process Lead: Jean Aldrich MD Immature granulocytes/100 WB C (Bld) 0 % Normal 0 [facility] Comment on above: Performed By: #### C P, CDP, LIP #### [address] [place] [address] Process Lead: Jean Aldrich MD Lymphocytes (Bld) [#/Vol] 1.23 10*3/uL Normal 1.20-5.2 0 [facility] Comment on above: Performed By: #### C P, CDP, LIP #### [address] [place], [place] [address] Process Lead: Jean Aldrich MD Lymphocytes/100 WBC (Bld) 20 % Low 25-45 [facility] Comment on above: Performed By: #### C P, CDP, LIP #### [address] [place], [place] [address] Process Lead: Jean Aldrich MD MCH (RBC) [Entitic mass] 29.6 pg Normal 25.2-33.5 [facility] Comment on above: Performed By: #### C P, CDP, LIP #### [address] [place], [facility]83 Process Lead: Jean Aldrich MD MCHC (RBC) [Mass/Vol] 36.0 g/dL High 28.4-34.8 [facility] Comment on above: Performed By: #### C P, CDP, LIP #### [address] [place], [facility]83 Process Lead: Jean Aldrich MD MCV (RBC) [Entitic vol] 82.3 fL Low 82.6-102.9 M [facility] Comment on above: Performed By: #### C P, CDP, LIP #### [address] [place], [facility] Process Lead: Jean Aldrich MD Monocytes (Bld) [#/Vol] 0.50 10*3/uL Normal 0.10-1.40 [facility] Comment on above: Performed By: #### C P, CDP, LIP #### [address] [place] [address] Process Lead: Jean Aldrich MD Monocytes/100 WBC (Bld) 8 % Normal 2-8 M [facility] Comment on above: Performed By: #### C P, CDP, LIP #### [facility] [address] [place], [place] [phone] Process Lead: Jean Aldrich MD Neutrophil (Seg) 71 % High 34-64 [facility] Comment on above: Performed By: #### C P, CDP, LIP #### [facility] [address] [place], [facility]83 Process Lead: Jean Aldrich MD NRBC Automated 0.0 per 100 WBC Normal 0.0 [facility] Comment on above: Performed By: #### C P, CDP, LIP #### [facility] [address] [place], [facility]83 Process Lead: Jean Aldrich MD Platelet mean volume (Bld) [Entitic vol] 10.6 fL Normal 8.1-13.5 [facility] Comment on above: Performed By: #### C P, CDP, LIP #### [address] [place], [facility]83 Process Lead: Jean Aldrich MD Platelets (Bld) [#/Vol] 218 10*3/uL Normal 138-453 [facility] Comment on above: Performed By: #### C P, CDP, LIP #### [address] [place], [place] [address] Process Lead: Jean Aldrcih MD RBC (Bld) [#/Vol] 4.12 10*6/uL Normal 3.95-5.11 [facility] Comment on above: Performed By: #### C P, CDP, LIP #### [address] [place], [place] [address]83 Process Lead: Jean Aldrich MD WBC (Bld) [#/Vol] 6.3 10*3/uL Normal 4.5-13.5 [facility] Comment on above: Performed By: #### C P, CDP, LIP #### [facility] [address] [place], [place] [id number] Process Lead: Jean Aldrich MD Comp Metabolic Profon 2022 Albumin [Mass/Vol] 3.6 g/dL Normal 3.5-5.2 [facility] Comment on above: Performed By: #### C P, CDP, LIP #### [facility] [address] [place], [place] [phone] Process Lead: Jean Aldrich MD Albumin/Glob Ratio 1.2 Normal 1.0-2.5 [facility] Comment on above: Performed By: #### C P, CDP, LIP #### [facility] [address] [place], [place] [address]83 Process Lead: Jean Aldrich MD Alkaline Phos 66 U/L Normal 35-104 [facility] Comment on above: Performed By: #### C P, CDP, LIP #### [facility] [address] [place], [place] [id number] Process Lead: Jean Aldrich MD ALT [Catalytic activity/Vol] 14 U/L Normal 5-33 [facility] Comment on above: Performed By: #### C P, CDP, LIP #### [facility] [address] [place], [place] [address] Process Lead: Jean Aldrich MD Anion gap [Moles/Vol] 10 mmol/L Normal 9-17 [facility] Comment on above: Performed By: #### C P, CDP, LIP #### [facility] [address] [place], [place] [address]83 Process Lead: Jean Aldrich MD AST [Catalytic activity/Vol] 15 U/L Normal <32 [facility] Comment on above: Performed By: #### C P, CDP, LIP #### [facility] [address] [place], [place] [phone] Process Lead: Jean Aldrich MD Bilirubin [Mass/Vol] 0.3 mg/dL Normal 0.3-1.2 [facility] Comment on above: Performed By: #### C P, CDP, LIP #### [facility] [address] [place], [place] [phone] Process Lead: Jean Aldrich MD BUN/CRE Ratio 5 Low 9-20 [facility] Comment on above: Performed By: #### C P, CDP, LIP #### [facility] [address] [place], [place] [address] Process Lead: Jean Aldrich MD Calcium [Mass/Vol] 9.2 mg/dL Normal 8.6-10.4 [facility] [facility] Comment on above: Performed By: #### C P, CDP, LIP #### [address] [place], [place] [id number] Process Lead: Jean Aldrich MD Chloride [Moles/Vol] 103 mmol/L Normal 98-107 [facility] Comment on above: Performed By: #### C P, CDP, LIP #### [address] [place], [place] 5572883 Process Lead: Jean Aldrich MD CO2 [Moles/Vol] 20 mmol/L Normal 20-31 [facility] Comment on above: Performed By: #### C P, CDP, LIP #### [facility] [address] [place] [address] [address] [place], [place] [id number] Process Lead: Jean Aldrich MD Creatinine [Mass/Vol] 0.40 mg/dL Low 0.50-0.90 [facility] Comment on above: Performed By: #### C P, CDP, LIP #### [facility] [address] [place] [address] Process Lead: Jean Aldrich MD GFR/1.73 sq M.predicted carie g non-blacks MDRD (S/P/Bld) [Vol rate/Area] mL/min/{1.73_m2} Normal >60 [facility] Comment on above: Result Comment: These results [...] By: #### C P, CDP, LIP #### [facility] [address] [place] [address] [place] [address] Process Lead: Jean Aldrich MD Glucose [Mass/Vol] 77 mg/dL Normal 70-99 [facility] Comment on above: Performed By: #### C P, CDP, LIP #### [address] [place] [address] Process Lead: Jean Aldrich MD Potassium [Moles/Vol] 3.2 mmol/L Low 3.7-5.3 [facility] Comment on above: Performed By: #### C P, CDP, LIP #### [address] [place] [address] Process Lead: Jean Aldrich MD Protein [Mass/Vol] 6.6 g/dL Normal 6.4-8.3 [facility] Comment on above: Performed By: #### C P, CDP, LIP #### [facility] [address] [place] [address] [place] [address] Process Lead: Jean Aldrich MD Sodium [Moles/Vol] 133 mmol/L Low 135-144 [facility] Comment on above: Performed By: #### C P, CDP, LIP #### [address] [place] [address] Process Lead: Jean Aldrich MD Urea nitrogen [Mass/Vol] 2 mg/dL Low 6-20 [facility] Comment on above: Performed By: #### C P, CDP, LIP #### [facility] [address] [place], [place] [id number] Process Lead: Jean Aldrich MD Lipaseon 11-04-2022 Lipase [Catalytic activity/Vol] 39 U/L Normal 13-60 [facility] Comment on above: Performed By: #### C P, CDP, LIP #### [facility] [address] [place], [place] 729[address]83 Process Lead: Jean Aldrich MD UA w/Reflex Cultureon 2022 Bilirubin, SemiQt,Ur Negative Normal NEG [facility] Comment on above: Performed By: #### U AX, UMICAO #### [facility] [address] [place], [place] 8943683 Process Lead: Jean Aldrich MD Blood, Urine Negative Normal NEG [facility] Comment on above: Performed By: #### U AX, UMICAO #### [facility] [address] [place], [place] 2883683 Process Lead: Jean Aldrich MD Clarity (U) Cloudy Abnormal CLEAR [facility] Comment on above: Performed By: #### U AX, UMICAO #### [facility] [address] [place], [place] 3056583 Process Lead: Jean Aldrich MD Color (U) Yellow Normal YEL [facility] Comment on above: Performed By: #### U AX, UMICAO #### [facility] [address] [place], [place] 6594683 Process Lead: Jean Aldrich MD Glucose Ql (U) Negative Normal NEG [facility] Comment on above: Performed By: #### U AX, UMICAO #### [facility] [address] [place], [place] 1833483 Process Lead: Jean Aldrich MD Ketones Ql (U) 4+ Abnormal NEG [facility] in [facility] Comment on above: Performed By: #### U AX, UMICAO #### [facility] [address] [place], [place] [address] Process Lead: Jean Aldrich MD Leukocyte esterase Test stri p Ql (U) MODERATE Abnormal NEG [facility] Comment on above: Performed By: #### U AX, UMICAO #### [facility] [address] [place], [place] [address] Process Lead: Jean Aldrich MD Nitrite,Ur Positive Abnormal NEG [facility] Comment on above: Performed By: #### U AX, UMICAO #### [facility] [address] [place] [address] Dr. [place], [facility]83 Process Lead: Jean Aldrich MD PH,Ur 6.0 Normal 5.0-9.0 [facility] Comment on above: Performed By: #### U AX, UMICAO #### [facility] [address] [place] [address] Dr. [place], [facility]83 Process Lead: Jean Aldrich MD Protein Ql (U) Negative Normal NEG [facility] Comment on above: Performed By: #### U AX, UMICAO #### [facility] [address] [place] [address] Dr. [place], [facility]83 Process Lead: Jaen Aldrich MD Spec. [place],Ur 1.025 High 1.010-1.02 0 [facility] Comment on above: Performed By: #### U AX, UMICAO #### [facility] [address] [place], [place] 9107183 Process Lead: Jean Aldrich MD Urobilinogen,Ur Normal Normal NORM [facility] Comment on above: Performed By: #### U AX, UMICAO #### [facility] [address] [place], [place] 0935983 Process Lead: Jean Aldrich MD Urinalysis,Microon 3 Bacteria 3+ Abnormal [facility] Comment on above: Performed By: #### U AX, UMICAO #### [facility] [address] [place], [place] 48[address]83 Process Lead: Jean Aldrich MD Crystals LM Nom (Urine sed) 0 TO [address] [facility] Comment on above: Result Comment: CALC IUM OXALATE Performed By: #### U AX, UMICAO #### [facility] [address] [place], [place] 47[address]83 Process Lead: Jean Aldrich MD Epithelial cells LM Ql (Urin e sed) 5 TO 10 Normal 0-25 [facility] Comment on above: Performed By: #### U AX, UMICAO #### [facility] [address] [place], [facility]83 Process Lead: Jean Aldrich MD Mucus Strands TRACE Abnormal [facility] Comment on above: Performed By: #### U AX, UMICAO #### [facility] [address] [place], [place] 968[address]3 Process Lead: Jean Aldrich MD Urine RBC's 0 TO 2 Normal 0-2 [facility] Comment on above: Performed By: #### U AX, UMICAO #### [facility] [address] [place], [place] [address] Process Lead: Jean Aldrich MD Urine WBC's 10 TO 20 Normal 0-5 [facility] Comment on above: Performed By: #### U AX, UMICAO #### [facility] [address] [place] [id number] Process Lead: Jean Aldrich MD XR CHEST PORTABLEon 11-05-19 23 XR CHEST PORTABLE EXAMINATION: ONE XRAY VIEW [...] Violette Benitez MD 11/04/22 Final result Normal [facility] CBC with Diffon 10-30-2022 Abs. Basophil <0.03 Normal 0.00-0.20 [facility] Comment on above: Performed By: #### C P, PT, CDP ####[address] [place] [address] Lab Director: Jean Aldrich MD Abs.Imm.Granulocyte 0.03 k/uL Normal 0.00-0.30 [facility] Comment on above: Performed By: #### C P, PT, CDP ####[address] , [facility]83 Lab Director: Jean Aldrich MD Abs.Neutrophil (Seg) 6.65 k/uL Normal 1.80-8.00 [facility] Comment on above: Performed By: #### C P, PT, CDP ####[address] [place] [address] Lab Director: Jean Aldrich MD Basophils/100 WBC (Bld) 0 % Normal 0-2 [facility] Comment on above: Performed By: #### C P, PT, CDP ####[address] , [facility]83 Lab Director: Jean Aldrich MD Eosinophils (Bld) [#/Vol] 0.06 10*3/uL Normal 0.00-0.4 4 [facility] Comment on above: Performed By: #### C P, PT, CDP ####[address] [place] [address] Lab Director: Jean Aldrich MD Eosinophils/100 WBC (Bld) 1 % Normal 1-4 [facility] Comment on above: Performed By: #### C P, PT, CDP ####[address] , [place] [address])[phone] Director: Jean Aldrich MD Erythrocyte distribution width (RBC) [Ratio] 11.9 % Normal 11.8-14.4 [facility] Comment on above: Performed By: #### C P, PT, CDP ####[address] , [place] [address])[phone] Director: Jean Aldrich MD Hematocrit (Bld) [Volume fraction] 35.9 % Low 36.3-47.1 [facility] Comment on above: Performed By: #### C P, PT, CDP ####[address] , [place] [address])[phone] Director: Jean Aldrich MD Hemoglobin (Bld) [Mass/Vol] 12.6 g/dL Normal 11.9-15. 1 [facility] Comment on above: Performed By: #### C P, PT, CDP ####[address] , [place] [address])[phone] Director: Jean Aldrich MD Immature granulocytes/100 WB C (Bld) 0 % Normal 0 [facility] Comment on above: Performed By: #### C P, PT, CDP ####[address] , [place] [address])[phone] Director: Jean Aldrich MD Lymphocytes (Bld) [#/Vol] 2.00 10*3/uL Normal 1.20-5.2 0 [facility] Comment on above: Performed By: #### C P, PT, CDP ####[address] , [facility]83 Lab Director: Jean Aldrich MD Lymphocytes/100 WBC (Bld) 22 % Low 25-45 [facility] Comment on above: Performed By: #### C P, PT, CDP ####[address] , [place] [address])[phone] Director: Jean Aldrich MD MCH (RBC) [Entitic mass] 29.6 pg Normal 25.2-33.5 [facility] Comment on above: Performed By: #### C P, PT, CDP ####[address] , [place] [address])[phone] Director: Jean Aldrich MD MCHC (RBC) [Mass/Vol] 35.1 g/dL High 28.4-34.8 [facility] Comment on above: Performed By: #### C P, PT, CDP ####[address] [place] [id number])[phone] Director: Jean Aldrich MD MCV (RBC) [Entitic vol] 84.3 fL Normal 82.6-102.9 [facility] Comment on above: Performed By: #### C P, PT, CDP ####[address] , [facility]83[facility])[phone] Director: Jean Aldrich MD Monocytes (Bld) [#/Vol] 0.38 10*3/uL Normal 0.10-1.40 [facility] Comment on above: Performed By: #### C P, PT, CDP ####[address] , [facility]19([facility])[phone] Director: Jean Aldrich MD Monocytes/100 WBC (Bld) 4 % Normal 2-8 M [facility] Comment on above: Performed By: #### C P, PT, CDP ####[address] , [facility]83 Lab Director: Jean Aldrich MD Neutrophil (Seg) 73 % High 34-64 [facility] Comment on above: Performed By: #### C P, PT, CDP ####[address] [place] [address] Lab Director: Jean Aldrich MD NRBC Automated 0.0 per 100 WBC Normal 0.0 [facility] Comment on above: Performed By: #### C P, PT, CDP ####[address] , [place] 584[address]83 Lab Director: Jean Aldrich MD Platelet mean volume (Bld) [Entitic vol] 11.0 fL Normal 8.1-13.5 [facility] Comment on above: Performed By: #### C P, PT, CDP ####[address] , [facility]83 Lab Director: Jean Aldrich MD Platelets (Bld) [#/Vol] 249 10*3/uL Normal 138-453 [facility] Comment on above: Performed By: #### C P, PT, CDP ####[address] , [facility]83 Lab Director: Jean Aldrich MD RBC (Bld) [#/Vol] 4.26 10*6/uL Normal 3.95-5.11 [facility] Comment on above: Performed By: #### C P, PT, CDP ####[address] [place] [address] Lab Director: Jean Aldrich MD WBC (Bld) [#/Vol] 9.1 10*3/uL Normal 4.5-13.5 [facility] Comment on above: Performed By: #### C P, PT, CDP ####[address] , [place] 1914283 Lab Director: Jean Aldrich MD Comp Metabolic Profon 2022 Albumin [Mass/Vol] 3.9 g/dL Normal 3.5-5.2 [facility] Comment on above: Performed By: #### C P, PT, CDP ####[address] , [place] 8881283 Lab Director: Jean Aldrich MD Albumin/Glob Ratio 1.3 Normal 1.0-2.5 [facility] Comment on above: Performed By: #### C P, PT, CDP ####[address] , [place] 6107583 Lab Director: Jean Aldrich MD Alkaline Phos 65 U/L Normal 35-104 [facility] Comment on above: Performed By: #### C P, PT, CDP ####[address] , [place] 2167783 Lab Director: Jean Aldrich MD ALT [Catalytic activity/Vol] 21 U/L Normal 5-33 [facility] Comment on above: Performed By: #### C P, PT, CDP ####[address] , [place] 975[address]83 Lab Director: Jean Aldrich MD Anion gap [Moles/Vol] 12 mmol/L Normal 9-17 [facility] Comment on above: Performed By: #### C P, PT, CDP ####[address] , [place] 2965083 Lab Director: Jean Aldrich MD AST [Catalytic activity/Vol] 13 U/L Normal <32 [facility] Comment on above: Performed By: #### C P, PT, CDP ####[address] , [place] 6783783 Lab Director: Jean Aldrich MD Bilirubin [Mass/Vol] 0.4 mg/dL Normal 0.3-1.2 [facility] Comment on above: Performed By: #### C P, PT, CDP ####[address] [place] [address] Lab Director: Jean Aldrich MD BUN/CRE Ratio 10 Normal 9-20 [facility] Comment on above: Performed By: #### C P, PT, CDP ####[address] , [place] 78[address]83 Lab Director: Jean Aldrich MD Calcium [Mass/Vol] 9.6 mg/dL Normal 8.6-10.4 [facility] Comment on above: Performed By: #### C P, PT, CDP ####[address] [place] [address] Lab Director: Jean Aldrich MD Chloride [Moles/Vol] 102 mmol/L Normal 98-107 [facility] Comment on above: Performed By: #### C P, PT, CDP ####[address] [place] [address] Lab Director: Jean Aldrich MD CO2 [Moles/Vol] 22 mmol/L Normal 20-31 [facility] Comment on above: Performed By: #### C P, PT, CDP ####[address] , [place] 7796383 Lab Director: Jean Aldrich MD Creatinine [Mass/Vol] 0.41 mg/dL Low 0.50-0.90 [facility] Comment on above: Performed By: #### C P, PT, CDP ####[address] , [place] 4005083 Lab Director: Jean Aldrich MD GFR/1.73 sq M.predicted carie g non-blacks MDRD (S/P/Bld) [Vol rate/Area] mL/min/{1.73_m2} Normal >60 [facility] Comment on above: Result Comment: These results [...] Performed By: #### C P, PT, CDP ####[address] , [place] 436[address]83 Lab Director: Jean Aldrich MD Glucose [Mass/Vol] 82 mg/dL Normal 70-99 [facility] Comment on above: Performed By: #### C P, PT, CDP ####[address] [place] [address] Lab Director: Jean Aldrich MD Potassium [Moles/Vol] 3.7 mmol/L Normal 3.7-5.3 [facility] Comment on above: Performed By: #### C P, PT, CDP ####[address] [place] [address] Lab Director: Jean Aldrich MD Protein [Mass/Vol] 6.9 g/dL Normal 6.4-8.3 [facility] Comment on above: Performed By: #### C P, PT, CDP ####[address] [place] [address] Lab Director: Jean Aldrich MD Sodium [Moles/Vol] 136 mmol/L Normal 135-144 [facility] Comment on above: Performed By: #### C P, PT, CDP ####[address] , [place] 3455483 Lab Director: Jean Aldrich MD Urea nitrogen [Mass/Vol] 4 mg/dL Low 6-20 [facility] Comment on above: Performed By: #### C P, PT, CDP ####[address] , [place] 5633483 Lab Director: Jean Aldrich MD HCG, Quanton 10-30-2022 HCG, Quant [id number] mIU/mL High <5 [facility] Comment on above: Result Comment: Non-preg premeno <=5 Postmeno <=8 Male <=3 If HCG results do not concur with clinical observations, additional testing to confirm results is recommended. Performed By: #### B HCG ####[address] , [place] 900[address]83 lab Director: Jean Aldrich MD PTon 10-30-2022 INR Coag (PPP) [Relative time] 1.0 {INR} Normal [facility] Comment on above: Result Comment: Therapeutic Range: Moderate Anticoagulant Intensity: INR = 2.0-3.0 High Anticoagulant Intensity: INR = 2.5-3.5 Performed By: #### C P, PT, CDP ####[address] [place] [address] lab Director: Jean Aldrich MD PT Coag (PPP) [Time] 12.9 s Normal 11.9-14.8 [facility] Comment on above: Performed By: #### C P, PT, CDP ####[address] [place] [address] lab Director: Jean Aldrich MD Type + Screenon 10-30-2022 Type + Screen Sample Expiration 11/02/2022,2359 Arm Band Number [id number] ABO/Rh(D) O POSITIVE Antibody Screen NEGATIVE Normal [facility] Comment on above: Performed By: #### T YS ####[address] [place] [address] lab Director: Jean Aldrich MD US DUP [...] hematoma. Twin A: [place] Sac: Not seen Bernard Rump Length: 5.3 cm Heart Rate: 156 beats per minute Twin B: Yolk sac: Not seen Bernard-rump length: 5.6 cm heart rate: 158 beats [...] Madyson Gabriel DO 10/30/22 Final result Normal [facility] US OB LESS THAN 14 WEEKS SIN [...] hematoma. Twin A: Y[place] Sac: Not seen Bernard Rump Length: 5.3 cm Heart Rate: 156 beats per minute Twin B: Yolk sac: Not seen Bernard-rump length: 5.6 cm heart rate: 158 beats [...] Madyson Gabriel DO 10/30/22 Final result Normal [facility] Urinalysis, Routineon 2022 Bilirubin, SemiQt,Ur Negative Normal NEG [facility] Comment on above: Performed By: #### AVELINA Girard #### [facility] [address] [place] [address] Process Lead: Jean Aldrich MD Blood, Urine Negative Normal NEG [facility] Comment on above: Performed By: #### AVELINA Girard #### [facility] [address] [place] [address] Process Lead: Jean Aldrich MD Clarity (U) Cloudy Abnormal CLEAR [facility] Comment on above: Performed By: #### U AVELINA Ford #### [facility] [address] [place] [address] Process Lead: Jean Aldrich MD Color (U) Yellow Normal YEL [facility] Comment on above: Performed By: #### U A, UMICAO #### [facility] [address] [place], [place] 4115683 Process Lead: Jean Aldrich MD Glucose Ql (U) Negative Normal NEG [facility] Comment on above: Performed By: #### U A, UMICAO #### [facility] [address] [place], [place] 3025483 Process Lead: Jean Aldrich MD Ketones Ql (U) 1+ Abnormal NEG [facility] Comment on above: Performed By: #### U A, UMICAO #### [facility] [address] [place] [address] [place] [place], [place] 3531883 Process Lead: Jean Aldrich MD Leukocyte esterase Test stri p Ql (U) LARGE Abnormal NEG [facility] Comment on above: Performed By: #### U A, UMICAO #### [facility] [address] [place] [address] [place] [address] Process Lead: Jean Aldrich MD Nitrite,Ur Negative Normal NEG [facility] Comment on above: Performed By: #### U A, UMICAO #### [facility] [address] [place] [address] Process Lead: Jean Aldrich MD PH,Ur 6.5 Normal 5.0-9.0 [facility] Comment on above: Performed By: #### U A, UMICAO #### [facility] [address] [place], [place] 6650383 Process Lead: Jean Aldrich MD Protein Ql (U) Negative Normal NEG [facility] Comment on above: Performed By: #### U A, UMICAO #### [facility] [address] [place], [place] 5522483 Process Lead: Jean Aldrich MD Spec. [place],Ur 1.025 High 1.010-1.02 0 [facility] Comment on above: Performed By: #### U A, UMICAO #### [facility] [address] [place], [place] 70[address]83 Process Lead: Jean Aldrich MD Urobilinogen,Ur ELEVATED Abnormal NORM [facility] Comment on above: Performed By: #### U A, UMICAO #### [facility] [address] [place], [place] 0722783 Process Lead: Jean Aldrich MD Urinalysis,Microon 3 Bacteria 4+ Abnormal NONE [facility] Comment on above: Performed By: #### U A, UMICAO #### [facility] [address] [place], [place] 5930783 Process Lead: Jean Aldrich MD Epithelial cells LM Ql (Urin e sed) 5 TO 10 Normal 0-25 [facility] Comment on above: Performed By: #### U A, UMICAO #### [facility] [address] [place], [place] 3947583 Process Lead: Jean Aldrich MD Mucus Strands 3+ Abnormal NONE [facility] Comment on above: Performed By: #### U A, UMICAO #### [facility] [address] [place], [place] 7335183 Process Lead: Jean Aldrich MD Urine RBC's 2 TO 5 Normal 0-2 [facility] Comment on above: Performed By: #### U A, UMICAO #### [facility] [address] [place] [address] Process Lead: Jean Aldrich MD Urine WBC's 20 TO 50 Normal 0-5 [facility] Comment on above: Performed By: #### U A, UMICAO #### [facility] [address] [place] [address] Process Lead: Jean Aldrich MD CHLAMYDIA/GONOCOCCUS BI ( AB/URINE/PAPon 08-20-2022 Chlamydia trachomatis, BI Negative Normal Negative [facility] Comment on above: Performed By: #### C T/NGNA #### [facility] [address] [place] [address] Dr. Keo Ivory Neisseria gonorrhoeae, BI Negative Normal Negative [facility] Comment on above: Performed By: #### C T/NGNA #### [facility] [address] [place] [address] Dr. Keo Ivory CULTURE URINEon 08-20-2022 CULTURE [...] Trimethoprim/Sulfa methoxazole >=320 R F Normal [facility] Comment on above: Performed By: #### U RCX #### [facility] [address] [place] [address] Dr. Keo Ivory ER URINE PROFILEon 3 Bilirubin Ql (U) Negative Normal NEGATIVE [facility] Comment on above: Performed By: #### U JAVIER DURAN ERUR #### [facility] [address] [place] [address] Dr. Keo Ivory Clarity (U) SL CLOUDY Abnormal CLEAR [facility] Comment on above: Performed By: #### U MICRO PREGU, ERUR #### [facility] [address] [place] [address] [address] Keo Ivory Color (U) LT. YELLOW Normal YELLOW [facility] Comment on above: Performed By: #### U MICRO, PREGU, ERUR #### [facility] [address] [place] [address] [address] Keo CEDENO A micrscopic examination will be performed if indicated. Normal [facility] Comment on above: Performed By: #### U MICRO, PREGU, ERUR #### [facility] [address] [place] [address] [address] Keo Ivory Glucose Ql (U) Negative Normal NEGATIVE [facility] Comment on above: Performed By: #### U MICRO, PREGU, ERUR #### [facility] [address] [place] [address] Dr. Keo Ivory Hemoglobin Ql (U) TRACE-INTACT Abnormal NEGATIVE [facility] Comment on above: Performed By: #### U MICRO, PREGU, ERUR #### [facility] [address] [address] [address] Keo Ivory Ketones Ql (U) Negative Normal NEGATIVE [facility] Comment on above: Performed By: #### U MICRO, PREGU, ERUR #### [facility] [address] [address] Dr. Keo Ivory LEUKOCYTES Negative Normal NEGATIVE [facility] Comment on above: Performed By: #### U MICRO, PREGU, ERUR #### [facility] [address] [address] [address] Keo Ivory Nitrite Ql (U) Positive Abnormal NEGATIVE [facility] Comment on above: Performed By: #### U MICRO, PREGU, ERUR #### [facility] [address] [address] [address] Keo Ivory pH (U) 6.0 [pH] Normal 5-9 [facility] Comment on above: Performed By: #### U MICRO, PREGU, ERUR #### [facility] [address] [address] [address] Keo Ivory SPEC GRAVITY 1.020 Normal 1.005-<=1. 025 [facility] Comment on above: Performed By: #### U MICRO, PREGU, ERUR #### [facility] [address] [address] [address] Keo Ivory UA PROTEIN Negative Normal NEGATIVE/ TRACE [facility] Comment on above: Performed By: #### U MICRO, PREGU, ERUR #### [facility] [address] [place] [address] Dr. Keo Ivory UR MICRO IND INDICATED Normal [facility] Comment on above: Performed By: #### U MICRO, PREGU, ERUR #### [facility] [address] [address] [address] Keo Ivory Urobilinogen Qn (U) 0.2 {Krishna'U}/dL Normal 0.2 - 1. 0 [facility] Comment on above: Performed By: #### U MICRO, PREGU, ERUR #### [facility] [address] [place] [address] Dr. Keo Ivory URon 08-17-2022 , QUAL Negative Normal NEGATIVE [facility] Comment on above: Performed By: #### U MICRO, PREGU, ERUR #### [facility] [address] [place] [address] Dr. Keo Ivory URINE MICROSCOPIC ONLYon BACTERIA LARGE Abnormal NONE SEEN [facility] Comment on above: Performed By: #### U MICRO, PREGU, ERUR #### [facility] [address] [place] [address] Dr. Keo Ivory Bacteria identified Cx Nom (U) INDICATED Normal [facility] Comment on above: Performed By: #### U MICRO, PREGU, ERUR #### [facility] [address] [place] [address] Dr. Keo Ivory CAST NONE SEEN Normal NONE SEEN [facility] Comment on above: Performed By: #### U MICRO, PREGU, ERUR #### [facility] [address] [place] [address] Dr. Keo Ivory Crystals LM Nom (Urine sed) NONE SEEN Normal NONE SEE N [facility] Comment on above: Performed By: #### U MICRO, PREGU, ERUR #### [facility] [address] [address] [address] Keo Ivory Epithelial cells LM Ql (Urin e sed) FEW Abnormal NONE SEEN /RARE [facility] Comment on above: Performed By: #### U MICRO, PREGU, ERUR #### [facility] [address] [address] [address] Keo Ivory MUCOUS NONE SEEN Normal NONE SEEN [facility] Comment on above: Performed By: #### U MICRO, PREGU, ERUR #### [facility] [address] [address] [address] Keo Ivory RBC NONE SEEN Abnormal 0-2 [facility] Comment on above: Performed By: #### U MICRO, PREGU, ERUR #### [facility] [address] [address] [address] Keo Ivory WBC 5-10 Abnormal NONE SEEN [facility] Comment on above: Performed By: #### U MICRO, PREGU, ERUR #### [facility] [address] [address] [address] Keo Ivory SARS-CoV-2 (COVID-19) RNA NA A+probe Ql (Resp)on 11-14-2021 SARS-CoV-2 (COVID-19) RNA BI+probe Ql (Unsp spec) Negative Canesta Tangoe Other PREG QUANT HCGon 10-30-2021 HCG QUANT <1 Normal [facility] Comment on above: Performed By: #### P REGQNT #### [facility] [address] [address] [address] Keo Ivory HCG RANGE SEE BELOW Normal [facility] Comment on above: Result Comment: 5-50 0-1 WEEK 40-300 1-2 WEEKS 100-1,000 2-3 WEEKS 500-6,000 3-4 WEEKS 5,000-200,000 1-2 MONTHS 10,000-100,000 2-3 MONTHS 3,000-50,000 2ND TRIMESTER 1,000-50,000 3RD TRIMESTER Performed By: #### P REGQNT #### [facility] [address] [address] [address] Keo Ivory Vital Signs Date Time Vital Sign Value Performing Clinician Facility 10-21-2024 15:09-0400 Body weight 78.07 kg Mya RIOS Work Phone: [facility] 10-21-2024 15:09-0400 Diastolic blood pressure 86 mm[Hg] Mya Kaplan PA Work Phone: [facility] 10-21-2024 15:09-0400 Systolic blood pressure 116 mm[Hg] Mya Kaplan PA Work Phone: [facility] 10-15-2024 15:12-0400 Body weight 77.47 kg Mya Kaplan PA Work Phone: [facility] 10-15-2024 15:12-0400 Diastolic blood pressure 78 mm[Hg] Mya Kaplan PA Work Phone: [facility] 10-15-2024 15:12-0400 Systolic blood pressure 118 mm[Hg] Mya Kaplan PA Work Phone: [facility] 09-02-2024 15:09-0400 Body weight 82.44 kg Osmany Jena DO Work Phone: [facility] 09-02-2024 15:09-0400 Diastolic blood pressure 58 mm[Hg] Osmany Jena DO Work Phone: [facility] 09-02-2024 15:09-0400 Systolic blood pressure 106 mm[Hg] Osmany Jena DO Work Phone: [facility] 08-12-2024 15:13-0400 Body weight 81.7 kg Osmany Jena DO Work Phone: [facility] 08-12-2024 15:13-0400 Diastolic blood pressure 72 mm[Hg] Osmany Jena DO Work Phone: [facility] 08-12-2024 15:13-0400 Systolic blood pressure 106 mm[Hg] Osmany Jena DO Work Phone: [facility] 07-16-2024 08:54-0400 Body weight 80.56 kg Noms Nurse [facility] 07-16-2024 08:54-0400 Diastolic blood pressure 70 mm[Hg] [facility] Nurse [facility] 07-16-2024 08:54-0400 Systolic blood pressure 120 mm[Hg] Nom Nurse [facility] 12-06-2023 13:05-0400 Body mass index (BMI) [Ratio] 30.87 kg/m2 Amaya Cruz ASSISTANT [employer]OM[employer] Work Phone: [facility] 12-06-2023 13:05-0400 Body weight 76.57 kg Amaya Cummingsin ASSISTANT WOM[employer] Work Phone: [facility] 12-06-2023 13:05-0400 Diastolic blood pressure 74 mm[Hg] Amaya Cummingsin ASSISTANT [employer]OM[employer] Work Phone: [facility] 12-06-2023 13:05-0400 Systolic blood pressure 106 mm[Hg] Amaya Cummingsin ASSISTANT [employer]OM[employer] Work Phone: [facility] 11-27-2023 11:11-0400 Body mass index (BMI) [Ratio] 30.35 kg/m2 [facility] 11-27-2023 11:11-0400 Body weight 75.3 kg [facility] 11-27-2023 11:11-0400 Diastolic blood pressure 80 mm[Hg] [facility] 11-27-2023 11:11-0400 Systolic blood pressure 108 mm[Hg] [facility] 11-19-2023 10:04-0400 Body mass index (BMI) [Ratio] 29.62 kg/m2 Sally Newman ASSISTANT WOM[employer] Work Phone: [facility] 11-19-2023 10:04-0400 Body weight 73.48 kg Sally Newman ASSISTANT [employer] Work Phone: [facility] 11-19-2023 10:04-0400 Diastolic blood pressure 60 mm[Hg] Sally Frederick ASSISTANT WOM[employer] Work Phone: [facility] 11-19-2023 10:04-0400 Systolic blood pressure 102 mm[Hg] Sally Newman ASSISTANT WOM[employer] Work Phone: [facility] 10-10-2023 15:38-0400 Body mass index (BMI) [Ratio] 30.98 kg/m2 Mallika Raúl ASSISTANT WOMEN'S TENNIS COACH-CNM Work Phone: [facility] 10-10-2023 15:38-0400 Body weight 76.84 kg Mallika Raúl ASSISTANT WOM[employer] Work Phone: [facility] 10-10-2023 15:38-0400 Diastolic blood pressure 60 mm[Hg] Mlalika Raúl ASSISTANT WOM[employer]CN[employer] Work Phone: [facility] 10-10-2023 15:38-0400 Systolic blood pressure 110 mm[Hg] Mallika Raúl ASSISTANT WOM[employer]CN[employer] Work Phone: [facility] 09-12-2023 15:22-0400 Body mass index (BMI) [Ratio] 29.89 kg/m2 Mallika Raúl ASSISTANT WOM[employer]CN[employer] Work Phone: [facility] 09-12-2023 15:22-0400 Body weight 74.12 kg Mallika Raúl ASSISTANT WOM[employer] Work Phone: [facility] 09-12-2023 15:22-0400 Diastolic blood pressure 60 mm[Hg] Mallika Raúl ASSISTANT WOM[employer]CN[employer] Work Phone: [facility] 09-12-2023 15:22-0400 Systolic blood pressure 110 mm[Hg] Mallika Raúl ASSISTANT WOM[employer]CN[employer] Work Phone: [facility] 08-29-2023 13:49-0400 Body mass index (BMI) [Ratio] 29.37 kg/m2 Mallika Raúl ASSISTANT W[employer] Work Phone: [facility] 08-29-2023 13:49-0400 Body weight 72.85 kg Mallika Raúl ASSISTANT WOM[employer]CN[employer] Work Phone: [facility] 08-29-2023 13:49-0400 Diastolic blood pressure 60 mm[Hg] Mallika Conn ASSISTANT WOMEN'S [employer]ENN[employer] COACH-CNM Work Phone: 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 08-28-2023 13:48-0400 Body mass index (BMI) [Ratio] 29.3 kg/m2 [facility]ph [facility] 08-28-2023 13:48-0400 Body weight 72.[address] [facility] 08-28-2023 13:48-0400 Diastolic blood pressure 64 mm[Hg] Bph [facility] 08-28-2023 13:48-0400 Systolic blood pressure 110 mm[Hg] Bph [facility] 08-23-2023 10:55-0400 Body mass index (BMI) [Ratio] 29.63 kg/m2 Bph [employer] [facility] 08-23-2023 10:55-0400 Body weight 73.48 kg Bph [facility] 08-23-2023 10:55-0400 Diastolic blood pressure 62 mm[Hg] Bph [facility] 08-23-2023 10:55-0400 Systolic blood pressure 112 mm[Hg] Bph [facility] 11-14-2021 17:00-0400 Body height 165.1 cm Amaya Luu Other [employer] Other 11-14-2021 17:00-0400 Body mass index (BMI) [Ratio] 29.95 kg/m2 Amaya Luu Other [employer] Other 11-14-2021 17:00-0400 Body temperature 99 [degF] Amaya Luu Other [employer] Other 11-14-2021 17:00-0400 Body weight 81.65 kg Amaya Luu Other [employer] Other 11-14-2021 17:00-0400 Respiratory rate 16 /min Amaya Luu Other [employer] Other 11-14-2021 17:00-0400 SaO2% (BldA) [Mass fraction] 97 % Amaya Luu Other [employer] Other Encounters Encounter Date Encounter Type Care Provider Facility Start: 10-23-2024 End: 10-23-2024 Clinisync Result Encounter Mya RIOS Work Phone: [facility] Unsolicited Start: 10-23-2024 End: 10-23-2024 Clinisync Result Encounter Mya RIOS Work Phone: [facility] External [facility] Unsolicited Start: 10-21-2024 End: 10-21-2024 Office outpatient visit 15 minutes Mya RIOS Work Phone: [facility] Comment on above: 35 weeks gestation o f ([facility]); Third trimester ([facility]) Start: 10-21-2024 End: 10-21-2024 Bamboo flowsheet Mya RIOS Work Phone: [facility] Start: 10-21-2024 End: 10-21-2024 Bamboo flowsheet Mya RIOS Work Phone: [facility] Start: 10-15-2024 End: 10-15-2024 Office outpatient visit 15 minutes Mya RIOS Work Phone: [facility] Comment on above: Third trimester preg triny ([facility]); 32 weeks gestation of ([facility]); H/O incompetent cervix, currently ([facility]); Noncompliant patient, third trimester ([facility]) Start: 10-15-2024 End: 10-15-2024 ambulatory MYA KAPLAN Not Available Start: 10-15-2024 End: 10-15-2024 Bamboo flowsheet Mya RIOS Work Phone: [facility] Start: 10-15-2024 End: 10-15-2024 Bamboo flowsheet Mya RIOS Work Phone: [facility] Start: 09-22-2024 End: 09-22-2024 ambulatory [facility] Start: 09-22-2024 End: 09-24-2024 Evaluation and management of inpatient MELISA [facility] Start: 09-21-2024 End: 09-21-2024 ambulatory NO PCP NO PCP [facility] Start: 09-21-2024 End: 09-21-2024 ambulatory [facility] Start: 09-18-2024 End: 09-22-2024 ambulatory CECE BENTON [facility] Start: 09-18-2024 End: 09-18-2024 Emergency department patient visit NO PCP NO PCP [facility] Start: 09-02-2024 End: 09-02-2024 Office outpatient visit [...] Unsolicited Start: 09-01-2024 ambulatory OSMANY R JENA [facility] Start: 08-12-2024 End: 08-12-2024 ambulatory OSMANY JENA Not Available Start: 08-12-2024 End: 08-12-2024 Patient encounter procedure Osmany Jena DO Work Phone: [facility] Work Phone: Start: 08-12-2024 End: 08-12-2024 Periodic preventive med est patient 18-39 yrs Osmany Jena DO Work Phone: [facility] Comment on above: Well woman exam with routine gynecological exam; Vaginal discharge; STD exposure; Missed menses; , unspecified gestational age; Diabetes mellitus screening; Flank pain Start: 08-12-2024 End: 08-12-2024 Bamboo flowsheet Osmany Jena DO Work Phone: [facility] Start: 08-12-2024 End: 08-20-2024 Bamboo flowsheet Osmany Jena DO Work Phone: [facility] Start: 08-12-2024 End: 08-20-2024 Clinisync Result Encounter Osmany Jena DO Work Phone: [facility] External Department Unsolicited Start: 08-03-2024 End: 08-03-2024 Orders Only Guerrero Johnson ASSISTANT WOMEN'[employer]ENNIS COACH-CNM Work Phone: [facility] Comment on above: Urinary tract infect ion in mother during , antepartum (Primary Dx) Start: 07-28-2024 End: 07-28-2024 ambulatory OSMANY JENA Not Available Start: 07-27-2024 End: 07-27-2024 [facility] Start: 07-16-2024 End: 07-16-2024 Office outpatient visit 5 minutes [facility] Jena Nurse [facility] Comment on above: GA: 21w2d Start: 07-16-2024 End: 07-16-2024 ambulatory OSMANY JENA Not Available Start: 07-12-2024 End: 07-12-2024 [facility] Start: 07-06-2024 End: 07-06-2024 ambulatory OSMANY R [facility] Start: 06-25-2024 End: 06-25-2024 Emergency department patient visit NO PCP NO PCP [facility] Start: 06-02-2024 End: 06-02-2024 Bamboo flowsheet Osmany [...] department patient visit NO PCP NO PCP [facility] Start: 03-15-2024 End: 03-15-2024 Emergency department patient visit NO PCP NO PCP [facility] Start: 12-10-2023 End: 12-10-2023 ambulatory OSMANY JENA Not Available Start: 12-06-2023 End: 12-06-2023 Subsequent care visit Amaya Cruz ASSISTANT W[employer] Work Phone: [facility] Comment on above: GA: 38w1d Start: 12-06-2023 End: 12-06-2023 ambulatory AMAYA CARVAJALNJMANJIT [facility] Start: 11-28-2023 End: 11-28-2023 Telephone encounter Rekha Echols [facility] Start: 11-27-2023 End: 11-27-2023 ambulatory NO PCP NO PCP [facility] Start: 11-27-2023 End: 11-27-2023 Subsequent care visit [facility] Mattress Filler [facility] Comment on above: GA: 36w6d Start: 11-19-2023 End: 11-19-2023 Initial care visit Sally Newman ASSISTANT W[employer] Work Phone: [facility] Comment on above: GA: 35w5d Start: 11-19-2023 End: 11-19-2023 ambulatory SALLY Chago [facility] Start: 11-17-2023 End: 11-17-2023 ambulatory [facility] Start: 10-22-2023 End: 10-23-2023 Telephone encounter Maddison Serna LPN Work Phone: [facility] Comment on above: RETURN TO WORK [employer]O [employer] Start: 10-21-2023 End: 10-22-2023 [facility] Start: 10-17-2023 End: 10-17-2023 ambulatory [facility] Start: 10-10-2023 End: 10-10-2023 Subsequent care visit Mallika Conn APRN-CNM Work Phone: [facility] Comment on above: GA: 30w0d Start: 10-10-2023 End: 10-10-2023 ambulatory [facility] Start: 09-18-2023 End: 09-18-2023 Emergency department patient visit NO PCP NO PCP [facility] Start: 09-12-2023 End: 09-12-2023 Subsequent care visit Mallika Conn APRN-CNM Work Phone: [facility] Comment on above: GA: 26w0d Start: 09-12-2023 End: 09-12-2023 ambulatory [facility] Start: 09-04-2023 End: 09-04-2023 ambulatory AMAYA Chago ALENANJMANJIT [facility] Start: 09-02-2023 End: 09-02-2023 Telephone encounter Mallika Conn APRN-CNM Work Phone: [facility] Start: 08-30-2023 End: 09-02-2023 Telephone encounter Javon Gupta MD Work Phone: [facility] Comment on above: Second trimester pre gnancy (Primary Dx); Late care in second trimester NEW PATIENT REFERRAL Start: 08-29-2023 End: 08-29-2023 Initial care visit Mallika Conn SHAYNE-SHANIA Work Phone: [facility] Comment on above: GA: 24w0d Start: 08-29-2023 End: 08-29-2023 ambulatory MALLIKA CONN [facility] Start: 08-28-2023 End: 08-28-2023 ambulatory AMAYA [facility] Start: 08-28-2023 End: 08-28-2023 Office outpatient visit 15 minutes [facility] Ob Mattress [facility]iller 2 [facility] Comment on above: GA: 23w6d Start: 08-23-2023 End: 08-23-2023 ambulatory NO PCP NO PCP [facility] Start: 08-23-2023 End: 08-23-2023 Office outpatient new 30 minutes Bph [employer] [facility] Comment on above: History of d karen, currently (Primary Dx); History of twin in prior ; History of prior with short cervix, currently ; 23 weeks gestation of Start: 08-22-2023 End: 08-22-2023 Emergency department patient visit NO PCP NO PCP [facility] Start: 05-13-2023 Telephone encounter [facility] Work Phone: [facility] Start: 05-10-2023 Telephone encounter Zayra Navarrete RN [facility] Start: 12-03-2022 End: 12-04-2022 Emergency department patient visit MARILIN RODRIGEZ [facility] Start: 11-16-2022 Patient encounter status Osmany Bella DO Work Phone: [facility] Start: 11-04-2022 End: 11-04-2022 Emergency department patient visit REINA FERMIN [facility] Start: 10-30-2022 End: 10-30-2022 Emergency department patient visit FELICIANO CARLTON [facility] Start: 09-13-[address] DOCTOR HOLT Facility :[facility] Start: 08-17-2022 End: 08-17-[address] DOCTOR HOLT Facility:[facility] Start: 11-14-2021 End: 11-14-2021 ambulatory Amaya Luu Other [employer] Other Start: 11-14-2021 Office outpatient ne w 30 minutes Amaya Luu [facility] Start: 10-30-2021 End: 10-31-[address] DOCTOR HOLT Facility:[facility] Start: 08-22-2020 End: 08-28-2023 Patient encounter status Zayra Navarrete RN [facility] Procedures Date Procedure Procedure Detail Performing Clinician Start: 10-23-2024 US OB CERVICAL LENGTH C orey Jena DO Work Phone: Start: 10-23-2024 US OB GROWTH Mya RIOS Work Phone: Start: 10-23-2024 US OB BPP W NON-STRESS Mya RIOS Work Phone: Start: 10-21-2024 Urnls dip stick/tabl et rgnt non-auto w/o micrscp Mya RIOS Work Phone: Start: 09-02-2024 Urnls dip stick/tabl et rgnt non-auto w/o micrscp Osmany Jena DO Work Phone: Start: 09-02-2024 US OB CERVICAL LENGTH C orey Jena DO Work Phone: Start: 09-02-2024 US OB PLACENTA Osmany Fa zio DO Work Phone: Start: 09-02-2024 [facility] UA (CLEAN/CATCH) CLIN NURSE/MICRO IF IND. Osmany Jena DO Work Phone: Start: 08-12-2024 Urnls dip stick/tabl et rgnt non-auto w/o micrscp Osmany Jena DO Work Phone: Start: 08-12-2024 IGP,APTIMA HPV,AGE GDLN Osmany Bella DO Work Phone: Start: 08-03-2024 H/O: section Previous delivery affecting , antepartum Guerrero Johnson ASSISTANT W[employer] COACH-CNM Work Phone: Start: 09-12-2023 Adult depression screening assessment Mallika Conn ASSISTANT W[employer]-CNM Work Phone: Start: 08-29-2023 Adult depression screening assessment Mallika Conn ASSISTANT WOM[employer] COACH-CNM Work Phone: Start: 08-28-2023 Adult depression screening assessment [facility] 2 Start: 04-05-2023 Adult depression screening assessment Zayra Navarrete RN Plan of Treatment Date Care Activity Detail Author Start: 10-09-2033 DTaP,Tdap and Td Vaccines (8 - Td or Tdap) DTaP,Tdap and Td Vaccines (8 - Td or Tdap) [facility] Start: 08-03-2025 Adult BMI Screening Adult BMI Screen ing [facility] Start: 08-03-2025 Tobacco Screening Tobacco Screening [facility] Start: 05-15-2025 Screening for Chlamy spencer trachomatis Chlamydia Screening [facility] Start: 01-04-2025 Influenza vaccination Influenz a Vaccine (Season Ended) [facility] Start: 12-27-2024 DTaP,Tdap and Td Vaccines (7 - Td or Tdap) DTaP,Tdap and Td Vaccines (7 - Td or Tdap) [facility] Start: 12-05-2024 Adult BMI Screening Adult BMI Screen ing [facility] Start: 12-05-2024 Tobacco Screening Tobacco Screening [facility] Start: 11-26-2024 Adult BMI Screening Adult BMI Screen ing [facility] Start: 11-26-2024 Tobacco Screening Tobacco Screening [facility] Start: 11-18-2024 Adult BMI Screening Adult BMI Screen ing [facility] Start: 11-18-2024 Tobacco Screening Tobacco Screening [facility] Start: 11-16-2024 Screening for Chlamy spencer trachomatis Chlamydia Screening [facility] Start: 10-28-2024 End: 10-28-2024 Patient encounter procedure 10/28/2024 2:30 PM EDT Routine [facility] [address] [place] [id number] Osmany Bella DO [address] [place], [place] [id number] [facility] Start: 10-20-2024 Tobacco Screening Tobacco Screening [facility] Start: 10-16-2024 Screening for Chlamy spencer trachomatis Chlamydia Screening [facility] Start: 10-15-2024 End: 10-15-2024 Patient encounter procedure 10/15/2024 3:30 PM EDT Routine [facility] [address] [address] Mya Kaplan PA [address] [place], [place] [id number] Arrived [facility] Comment on above: Arrived Start: 10-15-2024 End: 04-16-2025 US biophysical profile w non stress test US biophysical profile w non stress test Imaging Routine Third trimester ([facility]) 32 weeks gestation of ([facility]) H/O incompetent cervix, currently ([facility]) Noncompliant patient, third trimester ([facility]) Expected: 10/15/2024 (Approximate), Expires: 04/16/2025 [facility] Work Phone: Comment on above: Expected: 10/15/2024 (Approximate), Expires: 04/16/2025 Start: 10-15-2024 End: 02-14-2025 US for US OB follow up transabdominal approach Imaging Routine Third trimester ([facility]) 32 weeks gestation of ([facility]) H/O incompetent cervix, currently ([facility]) Noncompliant patient, third trimester ([facility]) Expected: 10/15/2024, Expires: 02/14/2025 [facility] Comment on above: Expected: 10/15/2024 , Expires: 02/14/2025 Start: 10-09-2024 Adult BMI Screening Adult BMI Screen ing [facility] Start: 10-09-2024 Tobacco Screening Tobacco Screening [facility] Start: 09-16-2024 End: 09-16-2024 Patient encounter procedure 09/16/2024 9:00 AM EDT Routine [facility] [address] [place] [id number] Estephania Murphy, QUAL FIELD MANAGER [address] [place] [phone] [facility] Start: 09-11-2024 Adult BMI Screening Adult BMI Screen ing [facility] Start: 09-11-2024 Depression Screening Depression Scre ening [facility] Start: 09-11-2024 Tobacco Screening Tobacco Screening [facility] Start: 09-02-2024 End: 09-02-2024 Patient encounter procedure 09/02/2024 2:40 PM EDT Routine [facility] [address] [facility] [place] [phone] Osmany Bella, DO [address] [place] [address] [facility] Start: 08-28-2024 Adult BMI Screening Adult BMI Screen ing [facility] Start: 08-28-2024 Depression Screening Depression Scre ening [facility] Start: 08-28-2024 Screening for Chlamy spencer trachomatis Chlamydia Screening [facility] Start: 08-28-2024 Tobacco Screening Tobacco Screening [facility] Start: 08-27-2024 Adult BMI Screening Adult BMI Screen ing [facility] Start: 08-27-2024 Depression Screening Depression Scre ening [facility] Start: 08-27-2024 Tobacco Screening Tobacco Screening [facility] Start: 08-22-2024 Adult BMI Screening Adult BMI Screen ing [facility] Start: 08-22-2024 Tobacco Screening Tobacco Screening [facility] Start: 08-12-2024 End: 08-12-2024 Patient encounter procedure 08/12/2024 2:50 PM EDT Routine [facility] [address] [facility] [place] [phone] Osmany Bella, DO [address] [place] [address] [facility] Start: 08-12-2024 End: 08-12-2025 ABO/Rh ABO/Rh Lab Routine Missed menses , unspecified gestational age Expected: 08/12/2024 (Approximate), Expires: 08/12/2025 [facility] Comment on above: Expected: 08/12/2024 (Approximate), Expires: 08/12/2025 Start: 08-12-2024 End: 08-12-2025 Blood type and Indirect antibody screen panel - Blood Type and screen Lab Routine Missed menses , unspecified gestational age Expected: 08/12/2024 (Approximate), Expires: 08/12/2025 [facility] Comment on above: Expected: 08/12/2024 (Approximate), Expires: 08/12/2025 Start: 08-12-2024 End: 08-12-2025 CBC panel - Blood by Automated count CBC Lab Routine Diabetes mellitus screening Expected: 08/12/2024 (Approximate), Expires: 08/12/2025 [facility] Comment on above: Expected: 08/12/2024 (Approximate), Expires: 08/12/2025 Start: 08-12-2024 End: 08-12-2025 Measurement of glucose 1 hour after glucose challenge for glucose tolerance test Glucose tolerance, 1 hour Lab Routine Diabetes mellitus screening Expected: 08/12/2024 (Approximate), Expires: 08/12/2025 [facility] Comment on above: Expected: 08/12/2024 (Approximate), Expires: 08/12/2025 Start: 07-28-2024 End: 07-28-2024 Professional / ancillary services management 07/28/2024 2:30 PM EDT Ancillary Procedure [facility] [address] [place] [phone] [facility] OB Start: 07-16-2024 End: 07-16-2025 ABO/Rh ABO/Rh Lab Routine Missed menses , unspecified gestational age Expected: 07/16/2024 (Approximate), Expires: 07/16/2025 [facility] Comment on above: Expected: 07/16/2024 [...] gestational age Expected: 07/16/2024 (Approximate), Expires: 07/16/2025 [facility] Work Phone: Comment on above: Expected: 07/16/2024 (Approximate), Expires: 07/16/2025 Start: 07-16-2024 End: 07-16-2025 Drugs of abuse panel - Urine by Screen method Rapid drug screen, urine Lab Routine , unspecified gestational age Encounter for supervision of normal first in first trimester Expected: 07/16/2024 (Approximate), Expires: 07/16/2025 [facility] Comment on above: Expected: 07/16/2024 (Approximate), Expires: 07/16/2025 Start: 07-16-2024 End: 07-16-2025 US for US OB 14+ weeks anatomy scan Imaging Routine Screening, , for anatomic survey Expected: 07/16/2024, Expires: 07/16/2025 [facility] Comment on above: Expected: 07/16/2024 , Expires: 07/16/2025 Start: 06-19-2024 End: 06-19-2024 ambulatory 06/19/2024 10:30 AM EST Initial [facility] [address] [facility] [place] [address] [facility] Start: 06-19-2024 End: 06-19-2024 Professional / ancillary services management 06/19/2024 10:00 AM EST Ancillary Procedure [facility] [address] [place] [address] [facility] Start: 04-05-2024 Adult BMI Screening Adult BMI Screen ing [facility] Start: 04-05-2024 Depression Screening Depression Scre ening [facility] Start: 04-05-2024 Tobacco Screening Tobacco Screening [facility] Start: 01-25-2024 Screening for Chlamy spencer trachomatis Chlamydia Screening [facility] Start: 01-05-2024 COVID-19 Vaccine ( season) COVID-19 Vacc[address] () [facility] Start: 01-05-2024 Influenza vaccination Influenza Vacc ine [facility] Start: 12-06-2023 End: 12-06-2023 Patient encounter procedure 12/06/2023 1:00 PM EDT Routine [facility] [address] [place] [phone] Amaya Cruz, ASSISTANT WOMEN'S TENNIS COACH-[employer] [address] [facility] [address] [place] [address] [facility] Start: 11-27-2023 End: 11-27-2023 Patient encounter procedure 11/27/2023 11:00 AM EDT Routine [facility] [address] [place] [phone] [facility] Start: 10-24-2023 End: 10-24-2023 Patient encounter procedure 10/24/2023 2:45 PM EDT Routine [facility] [address] [place] [address] Mallika Conn, SHAYNE-CNChago [address] [place] [address] [facility] Start: 10-10-2023 End: 10-10-2023 Patient encounter procedure 10/10/2023 3:30 PM EDT Routine [facility] [address] [facility] [address] [place] [address] Mallika Conn APRN-CNM [address] [facility] [address] [place] [address] [facility] Start: 09-26-2023 End: 09-26-2023 Patient encounter procedure 09/26/2023 3:00 PM EDT Office Visit [facility] [address] [facility] [address] [place] [phone] Sabiha Dior APRN-FLOYD [address] [facility], [address] [place], [place] [phone] [facility] Start: 09-12-2023 End: 09-12-2023 Patient encounter procedure 09/12/2023 3:30 PM EDT Routine [facility] [address] [facility] [address] [place] [address] Mallika Conn APRN-CNM [address] [place] [address] [facility] Start: 09-09-2023 End: 09-09-2023 Patient encounter procedure 09/09/2023 2:45 PM EDT Office Visit [facility] [address] [facility] [address] [place] [phone] Sha Bright PA [address] [facility] [address] [place] [address] [facility] Start: 09-09-2023 Screening for malign ant neoplasm of cervix Pap Smear [facility] Start: 09-04-2023 End: 09-04-2023 ambulatory 09/04/2023 3:45 PM EDT Initial [facility] [address] [place] [address] Mallika Conn APRN-SHANIA [address] [place] [address] [facility] Start: 09-04-2023 End: 09-04-2023 Patient encounter procedure 09/04/2023 8:15 AM EDT Appointment [facility] [address] [facility] [address] [place] [address] [facility] Start: 08-28-2023 End: 08-28-2023 ambulatory 08/28/2023 1:00 PM EDT Initial [facility] [address] [facility] [address] [place] [address] [facility] Start: 08-28-2023 End: 08-28-2023 Patient encounter procedure 08/28/2023 12:30 PM EDT Appointment [facility] [address] [place] [address] [facility] Start: 08-23-2023 End: 08-22-2024 US for in second or third trimester Ultrasound greater than 14 weeks single transabdominal Imaging Routine History of delivery, currently History of twin in prior History of prior with short cervix, currently Expected: 08/23/2023, Expires: 08/22/2024 [facility] Comment on above: Expected: 08/23/2023 , Expires: 08/22/2024 Start: 08-23-2023 End: 08-22-2024 US MFM with or without consult US MFM with or without consult Imaging Routine History of delivery, currently History of twin in prior History of prior with short cervix, currently Expected: 08/23/2023, Expires: 08/22/2024 [facility]: Comment on above: Expected: 08/23/2023 , Expires: 08/22/2024 Start: 01-04-2023 COVID-19 Vaccine () COVID-19 Vaccine () [facility] Start: 01-04-2023 Influenza vaccination Influenza Vacc ine [facility] Start: 2020 Adult BMI Follow Up Plan Adult BMI Follow Up Plan [facility] End: 08-28-2024 Bacteria identified in Urine by Culture Urine Culture Microbiology Routine Second trimester Late care affecting in second trimester 1 Occurrences starting 08/29/2023 until 08/28/2024 [facility] Comment on above: 1 Occurrences starti ng 08/29/2023 until 08/28/2024 Bacteria identified in Urine by Culture Urine Culture Microbiology Routine Second trimester Late care affecting in second trimester 08/29/2023 9:[address] [facility] Bacteria identified in Urine by Culture Urine culture Microbiology Routine Missed menses Ordered: 07/16/2024 [facility] Comment on above: Ordered: 07/16/2024 End: 08-27-2024 [facility] Lab Routine Screening for genetic disease carrier status 1 Occurrences starting 08/28/2023 until 08/27/2024 [facility] Comment on above: 1 Occurrences starti ng 08/28/2023 until 08/27/2024 End: 08-25-2024 CBC W Auto Differential panel - Blood CBC auto differential Lab Routine care, subsequent , second trimester Short interval between pregnancies affecting in second trimester, antepartum 1 Occurrences starting 08/28/2023 until 08/25/2024 [facility] Work Phone: Comment on above: 1 Occurrences starti ng 08/28/2023 until 08/25/2024 CBC W Auto Different ial panel - Blood CBC and differential Lab Routine Missed menses , unspecified gestational age Ordered: 07/16/2024 [facility] Healthcare Comment on above: Ordered: 07/16/2024 CHLAMYDIA TRACHOMATI S (GENITO/STI) CHLAMYDIA TRACHOMATIS (GENITO/STI) Lab Routine STD exposure Ordered: 08/12/2024 [facility] Comment on above: Ordered: 08/12/2024 End: 08-28-2024 Chlamydia/GC by PCR [facility] Chlamydia/GC by PCR [facility] Microbiology Routine Screen for STD (sexually transmitted disease) Second trimester Late care affecting in second trimester 1 Occurrences starting 08/29/2023 until 08/28/2024 [facility] Work Phone: Comment on above: 1 Occurrences starti ng 08/29/2023 until 08/28/2024 Chlamydia/GC by PCR [facility] Chlamydia/GC by PCR [facility] Microbiology Routine Screen for STD (sexually transmitted disease) Second trimester Late care affecting in second trimester 08/29/2023 9:49 PM EDT [facility] Cytology Cervical or vaginal smear or scraping study Pap Smear Pathology and Cytology Routine Well woman exam with routine gynecological exam Ordered: 08/12/2024 [facility] Work Phone: Comment on above: Ordered: 08/12/2024 End: 08-28-2024 ECG 12 lead ECG 12 lead ECG Routine Late care affecting in second trimester Chest pain, unspecified type Heart palpitations 1 Occurrences starting 08/29/2023 until 08/28/2024 [facility] Comment on above: 1 Occurrences starti ng 08/29/2023 until 08/28/2024 End: 08-29-2024 Glucose 1h post 50g load Glucose 1h post 50g load Lab Routine Second trimester Late care in second trimester 1 Occurrences starting 08/30/2023 until 08/29/2024 [facility] Work Phone: Comment on above: 1 Occurrences starti ng 08/30/2023 until 08/29/2024 End: 08-28-2024 Glucose Tolerance, Fasting Glucose Tolerance, Fasting Lab Routine Second trimester Late care affecting in second trimester 1 Occurrences starting 08/29/2023 until 08/28/2024 [facility] Comment on above: 1 Occurrences starti ng 08/29/2023 until 08/28/2024 End: 08-28-2024 Glucose, 2 hour Post 75gm load Glucose, 2 hour Post 75gm load Lab Routine Second trimester Late care affecting in second trimester 1 Occurrences starting 08/29/2023 until 08/28/2024 [facility] Comment on above: 1 Occurrences starti ng 08/29/2023 until 08/28/2024 Hemoglobin A1c/Hemoglobin.total in Blood Hemoglobin A1c Lab Routine Missed menses , unspecified gestational age Ordered: 07/16/2024 [facility] Comment on above: Ordered: 07/16/2024 End: 08-25-2024 Hepatitis B surface antigen Hepatitis B surface antigen Lab Routine care, subsequent , second trimester Short interval between pregnancies affecting in second trimester, antepartum 1 Occurrences starting 08/28/2023 until 08/25/2024 [facility] Comment on above: 1 Occurrences starti ng 08/28/2023 until 08/25/2024 Hepatitis B virus surface Ag [Presence] in Serum or Plasma by Immunoassay Hepatitis B surface antigen Lab Routine Missed menses , unspecified gestational age Ordered: 07/16/2024 [facility] Comment on above: Ordered: 07/16/2024 Hepatitis C virus Ab [Presence] in Serum or Plasma by Immunoassay Hepatitis C antibody Lab Routine Missed menses , unspecified gestational age Ordered: 07/16/2024 [facility] Comment on above: Ordered: 07/16/2024 End: 08-25-2024 Hepatitis C(HCV) Ab w/ Reflex to PCR Hepatitis C(HCV) Ab w/ Reflex to PCR Lab Routine care, subsequent , second trimester Short interval between pregnancies affecting in second trimester, antepartum 1 Occurrences starting 08/28/2023 until 08/25/2024 [facility] Comment on above: 1 Occurrences starti ng 08/28/2023 until 08/25/2024 End: 08-25-2024 HIV 1&2 AB/AG Screen (P24 AG) HIV 1&2 AB/AG Screen (P24 AG) Lab Routine care, subsequent , second trimester Short interval between pregnancies affecting in second trimester, antepartum 1 Occurrences starting 08/28/2023 until 08/25/2024 [facility] Comment on above: 1 Occurrences starti ng 08/28/2023 until 08/25/2024 HIV-1/HIV-2 antigen/antibody combination immunoassay HIV-1 and HIV-2 antibodies Lab Routine Missed menses , unspecified gestational age Ordered: 07/16/2024 [facility] Comment on above: Ordered: 07/16/2024 HIV-1/HIV-2 antigen/antibody combination immunoassay HIV-1 and HIV-2 antibodies Lab Routine Missed menses , unspecified gestational age Ordered: 08/12/2024 [facility] Comment on above: Ordered: 08/12/2024 Neisseria gonorrhoea e DNA [Presence] in Unspecified specimen by BI with probe detection Neisseria gonorrhea DNA probe, direct Lab Routine STD exposure Ordered: 08/12/2024 [facility] Comment on above: Ordered: 08/12/2024 End: 08-27-2024 [facility] Routine Encounter for screening for other genetic defects 1 Occurrences starting 08/28/2023 until 08/27/2024 [facility] Comment on above: 1 Occurrences starti ng 08/28/2023 until 08/27/2024 Reagin Ab [Presence] in Serum by RPR RPR Lab Routine Missed menses , unspecified gestational age Ordered: 07/16/2024 [facility] Comment on above: Ordered: 07/16/2024 Rubella antibody, IgG Rubella an tibody, IgG Lab Routine Missed menses , unspecified gestational age Ordered: 07/16/2024 [facility] Comment on above: Ordered: 07/16/2024 End: 08-25-2024 Rubella IGG immune status Rubella IGG immune status Lab Routine care, subsequent , second trimester Short interval between pregnancies affecting in second trimester, antepartum 1 Occurrences starting 08/28/2023 until 08/25/2024 [facility] Comment on above: 1 Occurrences starti ng 08/28/2023 until 08/25/2024 End: 08-27-2024 Sickle solubility Sickle solubility Lab Routine care, subsequent , second trimester 1 Occurrences starting 08/28/2023 until 08/27/2024 [facility] Comment on above: 1 Occurrences starti ng 08/28/2023 until 08/27/2024 SURESWAB(R) ADVANCED VAGINITIS PLUS, TMA SURESWAB(R) ADVANCED VAGINITIS PLUS, TMA Pathology and Cytology Routine Vaginal discharge Ordered: 08/12/2024 [facility] Comment on above: Ordered: 08/12/2024 End: 08-25-2024 Syphilis Total(Unknown Syphilis Status) Syphilis Total(Unknown Syphilis Status) Lab Routine care, subsequent , second trimester Short interval between pregnancies affecting in second trimester, antepartum 1 Occurrences starting 08/28/2023 until 08/25/2024 [facility] Comment on above: 1 Occurrences starti ng 08/28/2023 until 08/25/2024 Thyrotropin [Units/volume] in Serum or Plasma TSH Lab Routine Abnormal TSH Ordered: 07/16/2024 [facility] Comment on above: Ordered: 07/16/2024 End: 08-25-2024 Type and screen Type and screen Blood Bank Routine care, subsequent , second trimester Short interval between pregnancies affecting in second trimester, antepartum 1 Occurrences starting 08/28/2023 until 08/25/2024 [facility] Comment on above: 1 Occurrences starti ng 08/28/2023 until 08/25/2024 End: 08-28-2024 Vaginitis Panel PCR Vaginitis Panel PCR Microbiology Routine Screen for STD (sexually transmitted disease) Second trimester Late care affecting in second trimester 1 Occurrences starting 08/29/2023 until 08/28/2024 [facility] Comment on above: 1 Occurrences starti ng 08/29/2023 until 08/28/2024 Vaginitis Panel PCR Vaginitis Pa arnie PCR Microbiology Routine Screen for STD (sexually transmitted disease) Second trimester Late care affecting in second trimester 08/29/2023 9:[address] [facility] End: 08-25-2024 Varicella zoster antibody, IgG Varicella zoster antibody, IgG Lab Routine care, subsequent , second trimester Short interval between pregnancies affecting in second trimester, antepartum 1 Occurrences starting 08/28/2023 until 08/25/2024 [facility] Comment on above: 1 Occurrences starti ng 08/28/2023 until 08/25/2024 Immunizations Immunization Date Immunization Notes Care Provider Fa gregg 10-10-2023 diphtheria, tetanus toxoids and acellular pertussis vaccine, unspecified formulation Mallika Conn APRN-SHANIA Work Phone: [facility] 10-10-2023 tetanus toxoid, redu libby diphtheria toxoid, and acellular pertussis vaccine, adsorbed Mallika Conn APRN-SHANIA Work Phone: [facility] 10-10-2023 Immunization, In Cli aletha,; Translations: [Drug or medicament (substance)] Mallika Conn APRN-PUJA Work Phone: [facility] 03-12-2019 influenza, injectabl e, quadrivalent, preservative free Zayra Navarrete RN [facility] 03-12-2019 influenza virus vacc ine, unspecified formulation Zayra Navarrete RN [facility] 12-28-2016 Human Papillomavirus 9-valent vaccine Mallika Conn APRN-CN Work Phone: [facility] 12-28-2016 meningococcal oligosaccharide (groups A, C, Y and W-135) diphtheria toxoid conjugate vaccine (MCV4O) Mallika Conn APRN-CN Work Phone: [facility] 12-27-2014 tetanus toxoid, redu libby diphtheria toxoid, and acellular pertussis vaccine, adsorbed Mallikaher Raúl [facility] Work Phone: [facility] 03-13-2007 influenza, seasonal, injectable Mallika Conn APRN-CNM Work Phone: [facility] 12-04-2006 diphtheria, tetanus toxoids and acellular pertussis vaccine Mallika Conn APRN-CN Work Phone: [facility] 12-04-2006 measles, mumps and rubella virus vaccine Mallika Conn APRN-CN Work Phone: [facility] 12-04-2006 poliovirus vaccine, inactivated Mallika Conn APRN-CNM Work Phone: [facility] 02-25-2006 influenza, seasonal, injectable Mallika Conn APRN-CNM Work Phone: [facility] 10-19-2003 diphtheria, tetanus toxoids and acellular pertussis vaccine, unspecified formulation Mallika Conn APRN-CN Work Phone: [facility] 10-19-2003 haemophilus influenz ae type b vaccine, conjugate unspecified formulation Mallika Raúl ASSISTANT WOMEN'S TENNIS COACH-CNM Work Phone: [facility] 10-19-2003 hepatitis B vaccine, pediatric or pediatric/adolescent dosage Mallika Conn ASSISTANT WOMEN'S TENNIS COACH-CNM Work Phone: [facility] 10-19-2003 measles, mumps and rubella virus vaccine Mallika Conn ASSISTANT WOMEN'S TENNIS COACH-CNM Work Phone: [facility] 05-25-2003 diphtheria, tetanus toxoids and acellular pertussis vaccine, unspecified formulation Mallika Conn ASSISTANT WOMEN'S TENNIS COACH-CNM Work Phone: [facility] 05-25-2003 haemophilus influenz ae type b vaccine, conjugate unspecified formulation Mallika Conn ASSISTANT WOMEN'S TENNIS COACH-CNM Work Phone: [facility] 05-25-2003 hepatitis B vaccine, pediatric or pediatric/adolescent dosage Mallika Conn ASSISTANT WOMEN'S TENNIS COACH-CNM Work Phone: [facility] 05-25-2003 pneumococcal conjuga te vaccine, 7 valent Mallika Raúl ASSISTANT WOMEN'S TENNIS COACH-CNM Work Phone: [facility] 05-25-2003 poliovirus vaccine, unspecified formulation Mallika Conn ASSISTANT WOMEN'S TENNIS COACH-CNM Work Phone: [facility] 02-24-2003 diphtheria, tetanus toxoids and acellular pertussis vaccine, unspecified formulation Mallika Conn ASSISTANT WOMEN'S TENNIS COACH-CNM Work Phone: [facility] 02-24-2003 haemophilus influenz ae type b vaccine, conjugate unspecified formulation Mallika Conn ASSISTANT WOMEN'S TENNIS COACH-CNM Work Phone: [facility] 02-24-2003 pneumococcal conjuga te vaccine, 7 valent Mallika Conn ASSISTANT WOMEN'S TENNIS COACH-CNM Work Phone: [facility] 02-24-2003 poliovirus vaccine, unspecified formulation Mallika Conn ASSISTANT WOMEN'S TENNIS COACH-CNM Work Phone: [facility] 2002 diphtheria, tetanus toxoids and acellular pertussis vaccine, unspecified formulation Mallika Raúl ASSISTANT WOMEN'S TENNIS COACH-CNM Work Phone: [facility] 2002 haemophilus influenz ae type b vaccine, conjugate unspecified formulation Mallika Conn ASSISTANT WOMEN'S TENNIS COACH-CNM Work Phone: [facility] 2002 hepatitis B vaccine, pediatric or pediatric/adolescent dosage Mallika Conn ASSISTANT WOMEN'S TENNIS COACH-CNM Work Phone: [facility] 2002 pneumococcal conjuga te vaccine, 7 valent Mallika Conn ASSISTANT WOMEN'S TENNIS COACH-CNM Work Phone: [facility] 2002 poliovirus vaccine, unspecified formulation Mallika Conn ASSISTANT WOMEN'S TENNIS COACH-CNM Work Phone: [facility] Payers Date Payer Category Payer Medicaid [id number] 2023 Medicaid [id number] 2002 Unknown [id number] [id number] 2002 Unknown [id number] [id number] 2002 Unknown [id number] 2.16.84 [id number] 2002 Unknown [id number] [id number] 2002 Unknown [id number] [id number] 2002 Unknown [id number] 2.16.8 [id number] 2002 Unknown [id number] 2.16.8 40.1.333415.3.579.2.1286 2002 Unknown [id number] 2.16.8 40.1.657819.3.579.2.1286 2002 Unknown [id number] 2.16.8 40.1.467161.3.579.2.1286 2002 Unknown [id number] 2.16.8 40.1.108304.3.579.2.1285 2002 Unknown [id number] 2.16.8 40.1.599678.3.579.2.1285 2002 Unknown [id number] 2.16.8 40.1.490404.3.579.2.1285 2002 Unknown [id number] 2.16.8 40.1.083057.3.579.2.1285 2002 Unknown [id number] 2.16.8 40.1.038980.3.579.2.1285 2002 Unknown [id number] 2.16.8 40.1.870746.3.579.2.1285 2002 Unknown [id number] 2.16.8 40.1.025951.3.579.2.1285 2002 Unknown [id number] 2.16.8 40.1.277604.3.579.2.1285 2002 Unknown [id number] 2.16.8 40.1.405483.3.579.2.1285 2002 Unknown [id number] 2.16 840.1.883996.3.579.2.1285 2002 Unknown [id number] 2.16 840.1.144041.3.579.2.1285 2002 Unknown [id number] 2.16 840.1.949906.3.579.2.1285 2002 Unknown [id number] 2.16 840.1.673642.3.579.2.1285 2002 Unknown [id number] 2.16 840.1.801157.3.579.2.1285 2002 Unknown [id number] 2.16 840.1.821735.3.579.2.1285 2002 Unknown [id number] 2.16 840.1.027421.3.579.2.1285 2002 Unknown [id number] 2.16. 840.1.144842.3.579.2.1285 2002 Unknown [id number] 2.16.8 40.1.280913.3.579.2.1285 2002 Unknown [id number] 2.16.8 40.1.842047.3.579.2.1285 2002 Unknown [id number] 2.16.8 40.1.125300.3.579.2.1285 2002 Unknown [id number] 2.16.8 40.1.041330.3.579.2.1285 2002 Unknown [id number] 2.16.8 40.1.562830.3.579.2.1285 2002 Unknown [id number] 2.16.8 40.1.887227.3.579.2.1285 2002 Unknown [id number] 2.16. 840.1.418446.3.579.2.1285 2002 Unknown [id number] 2.16. 840.1.864965.3.579.2.1285 2002 Unknown [id number] 2.16. 840.1.431909.3.579.2.1285 2002 Unknown [id number] 2.16. 840.1.680980.3.579.2.1285 2002 Unknown [id number] 2.16. 840.1.245587.3.579.2.1285 2002 Unknown [id number] 2.16.8 40.1.467948.3.579.2.1258 2002 Unknown [id number] 2.16.84 0.1.925844.3.579.2.1258 2002 Unknown [id number] 2.16.84 0.1.969580.3.579.2.1258 2002 Unknown [id number] 2.16.84 0.1.483515.3.579.2.1259 2002 Unknown [id number] 2.16.84 0.1.622542.3.579.2.9 2002 Unknown [id number] 2.16.84 0.1.838797.3.579.2.9 2002 Unknown [id number] 2.16.84 0.1.279636.3.579.2.1259 1957 [place] [id number] 2.16.840.1.940845.19 Social History Date Type Detail Facility Start: 03-26-2021 End: 08-03-[address] [facility] Tobacco smoking stat [facility] Tobacco smoking consumption unknown [facility] Start: 2002 Sex assigned at Not on file [facility] Start: 06-23-2022 Tobacco smoking status [facility] Never smoked tobacco [facility] Start: 06-23-2022 Tobacco use and exposure Smokeless tobacco non-user [facility] Start: 08-23-2023 End: 08-03-2024 Alcoholic beverage intake Ex-drinker (finding) [facility] Start: 03-26-2021 End: 08-03-2024 History of Social function [facility] Do you belong to any clubs or organizations such as worship groups, unions, fraternal or athletic groups, or school groups? No [facility] How often do you att end meetings of the clubs or organizations you belong to? Patient declined [facility] Are you now , , , , never or living with a partner? Living with partner [facility] How often to you hav e a drink containing alcohol? Never [facility] How hard is it for y ou to pay for the very basics like food, housing, medical care, and heating Somewhat hard [facility] Do you feel stress - tense, restless, nervous, or anxious, or unable to sleep at night because your mind is troubled all the time - these days [OSQ] To some extent [facility] Start: 03-26-[address] [facility] Start: 03-28-2023 [facility] Start: 03-15-[address] [facility] Start: 12-09-2014 Sex Female (finding) [facility] Goals Date Patient Goal Desired Activity /State [...] a mean way. Clinical Notes 11-14-2021 to 10-21-2024 BLANCA Gibson - 10/21/2024 2:30 PM Jennifer Wiley LPN - 10/15/2024 3:30 PM Aman Rea LPN - 09/02/2024 2:40 PM Aman Rea LPN - 08/12/2024 2:50 PM EDTPatient InstructionsAttachments Note Date & Type Note Facility 10-21-2024 History of Present illness Narrative Reason for Appointment: Patient ID: Laura Pond is a 24 y.o. female who [...] nursing note reviewed. Exam conducted with a program facilitator present. Vitals: There is no height or [...] is now on light duty verses bedrest. Patient aware that she is now able to resume visitation at [facility] Facility as previously scheduled to see her twins. Patient verbalized understanding and will return to clinic in 1 week. Documented by Carroll Wiley LPN on behalf of: BLANCA Gibson documented in this encounter [facility] 10-15-2024 History of Present illness Narrative Reason for Appointment: Patient ID: Laura Pond is a 24 y.o. female who [...] nursing note reviewed. Exam conducted with a program facilitator present. Vitals: There is no height or weight on file to calculate BMI. BP: 118/78 No LMP recorded. Patient is . ASSESSMENT & PLAN ICD-10-CM 1. Third trimester ([facility]) Z34.93 2. 32 weeks gestation of ([facility]) Z3A.32 3. H/O incompetent cervix, currently ([facility]) O09.299 4. Noncompliant patient, third trimester ([facility]) O09.893 Z91.199 Patient presents today for a routine obstetrics appointment. Patient is currently 34w2d with a Estimated Date of Delivery: 11/24/24. Patient made aware that she will need to start NST/BPP and growth scan to be started at [facility]. Patient given orders and sent to [facility] and [facility] Scheduling. Patient to return to clinic in 1 week for routine OB appointment. Documented by Carroll Wiley LPN on behalf of: BLANCA Gibson documented in this encounter [facility] 09-02-2024 History of Present illness Narrative Reason [...] nursing note reviewed. Exam conducted with a program facilitator present. Vitals: There is no height or [...] Osmany Bella DO documented in this encounter [facility] 08-12-2024 History of Present illness Narrative Reason [...] 08/22/2020 Episode of recurrent major depressive disorder ([facility]) 07/06/2021 Gastroesophageal reflux disease with esophagitis without [...] nursing note reviewed. Exam conducted with a program facilitator present. Vitals: There is no height or [...] Osmany Bella DO documented in this encounter [facility] 08-03-2024 History of Present illness Narrative While in triage pt. Advised of Rx. For keflex for presumed UTI. Rx. For keflex sent. Urine culture pending and pt. Advised she may be advised to stop the Rx. If comes back negative. Pt. Verbalized understanding. FRANCES Littlejohn 08/03/24 1218 documented in this encounter [facility] 07-16-2024 History of Present illness Narrative Reason [...] Complications: of 25 completed weeks of gestation 3B 02/03/23 25w2d 08:45 / 00:05 1 lb 13.5 oz M Vag-Spont None Y ANDREINA Complications: infant of 25 completed weeks of gestation 2 SAB 2020 Comments: very early 1st trimester Complications: [...] or undercooked meat, and stay away from [facility]. Patient has also been advised to [...] Kimi Olsen LPN documented in this encounter [facility] 06-02-2024 History of Present illness Narrative Reason for Appointment: Patient ID: Laura Pond is a 23 y.o. female who presents for ER Follow-up (Pt was at [facility] on 05/15/2024 for vaginal bleeding. Pt had [...] nursing note reviewed. Exam conducted with a program facilitator present. Vitals: There is no height or [...] Osmany Bella DO documented in this encounter [facility] 12-06-2023 History of Present illness Narrative Routine OB visit SUBJECTIVE Laura Pond is a 23 y.o. at 38w1d by 19 wk US She denies regular contractions or abdominal pain (+) cramping, especially in the morning She denies vaginal bleeding, vaginal discharge, or loss of fluid. movement: present Other questions or concerns today: Pt was at [facility] yesterday with kidney stones. Planning to see urology as outpatient. Pt reports history of chronic headache, no AVALOS today, no visual changes or abd pain Pt has appt with Dr. Bella early next week. She is transferring her care and planning to deliver at [place]. OBJECTIVE Current Medications: Current Outpatient Medications: acetaminophen [...] Results Component Value Date GLUF 71 08/30/2023 [id number] 115 (L) 08/30/2023 Physical Exam: General: Patient [...] care 4. Hx of delivery, currently Continue [facility] Reviewed warning signs including: Decreased movement Vaginal bleeding or fluid leaking Regular painful contractions Severe headache, not relieved with Tylenol Vision changes such as blurring or seeing floaters Right upper abdominal pain Sudden increase in swelling She was instructed to go to [facility] for evaluation if she experiences any of these symptoms. Keep appt with Dr. Bella 12/10/23 WILMER Stoll 12/06/23 1336 documented in this encounter [facility] 11-28-2023 Miscellaneous Notes Received breast pump orders from [employer]. Per the patient she would like the [employer] prescription signed. Sally Newman CNP signed the [employer] prescription. I put a note on the [employer] request stating the patient chose a different company & faxed it back. documented in this encounter [facility] 11-28-2023 Telephone encounter Note Received breast pump orders from [employer]. Per the patient she would like the [employer] prescription signed. Sally Newman CNP signed the [employer] prescription. I put a note on the [employer] request stating the patient chose a different company & faxed it back. [facility] 11-27-2023 History of Present illness Narrative Routine [...] constipation Episode of recurrent major depressive disorder ([facility]) Intractable chronic migraine without aura [...] to breastfeed Patient has a breast pump Dip Painter: Kadeem 6. Educational information given 7. Questions answered 8. Follow up 1 week WILMER Berumen 11/27/23 1138 Pt went to [facility] on 11-21 for pain. Pt also states she is transferring to Dr Bella on 12-04 when her insurance changes and plans on delivering at [place]. documented in this encounter [facility] 11-27-2023 Instructions WILMER Berumen - 11/27/2023 11:00 [...] environment for your baby, please visit the [facility] s website The following attachments cannot be sent through Care Everywhere.Deciding to breastfeed (Swazi)[facility] History of Present illness Narrative Initial [...] signs and when/how to notify provider. Reviewed PUJAM / FLOYD care, collaboration & referral to TRIM INSTALLER as needed. Reviewed course of care. exam complete. Discussed CDC recommendation for exclusive for the first 6 months. Patient has been covid vaccinated. Discussed recommendations in . Patient is taking a vitamin. All questions answered. Educational materials provided. RTC one week for visit. WILMER Berumen 11/19/23 1053 documented in this encounter [facility] 10-22-2023 Miscellaneous Notes Laura called asking for [...] to the fax that pt provided at [phone] documented in this encounter [facility] 10-22-2023 Telephone encounter Note Laura called asking [...] afternoon upon her return. Laura verbalized understanding. [facility] Work Phone: 10-22-2023 Telephone encounter Note Staff [...] to keep her energy up when working. [facility] 10-22-2023 Telephone encounter Note Spoke with pt, sent return work note to the fax that pt provided at [phone] [facility] 10-10-2023 History of Present illness Narrative Patient [...] paper. 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 The person planning to adopt the baby is looking for a potato chip processing supervisor. Laura is agreeable to referral to social [...] carrier Episode of recurrent major depressive disorder ([facility]) History of delivery Hx of [...] Ward 10/10/23 1623 documented in this encounter [facility] [employer] [facility] 09-12-2023 History of Present illness Narrative Patient [...] carrier Episode of recurrent major depressive disorder ([facility]) History of delivery Hx of [...] Ward 09/12/23 1618 [facility] 09-02-2023 Miscellaneous Notes Attempted to call, [employer] message sent. Staff will attempt to follow-up. New Medications Ordered This Visit Medications miconazole (MICOTIN-7) 100 mg vaginal suppository Sig: Insert 1 suppository (100 mg total) into the vagina nightly for 7 days. Dispense: 7 suppository Refill: 0 documented [facility] 09-02-2023 Telephone encounter Note Attempted to call, [employer] message sent. Staff will attempt to follow-up. New Medications Ordered This Visit Medications miconazole (MICOTIN-7) 100 mg vaginal suppository Sig: Insert 1 suppository (100 mg total) into the vagina nightly for 7 days. Dispense: 7 suppository Refill: 0 [facility] 08-30-2023 Miscellaneous Notes First Attempt Made from [...] at their earliest convenience to do so. Registered Travel Nurse provided callback number for scheduling or to address any questions or concerns they may have. 3rd and final attempt: Registered Travel Nurse unable to make contact with patient by phone - Unable to contact letter mailed to patient requesting a call back so we are able to schedule them in for a new patient appointment and update their contact information. Letter mailed to patient on: 09/02/2023 - mmv. documented in this encounter [facility] 08-30-2023 Telephone encounter Note First Attempt Made [...] INSURANCE INFORMATION TO THEIR NEW PATIENT APPOINTMENT [facility] 08-30-2023 Telephone encounter Note 2nd attempt: Called and left patient a voicemail once more letting them know we have received their referral, are ready to schedule, and to call us back at their earliest convenience to do so. Registered Travel Nurse provided callback number for scheduling or to address any questions or concerns they may have. [facility] 08-30-2023 Telephone encounter Note 3rd and final attempt: Registered Travel Nurse unable to make contact with patient by phone - Unable to contact letter mailed to patient requesting a call back so we are able to schedule them in for a new patient appointment and update their contact information. Letter mailed to patient on: 09/02/2023 - mmv. [facility] 08-30-2023 Miscellaneous Notes This is notification that we have received a referral for the patient. Please reach out to schedule new patient appointment in your office. Please check the referral tab in appt desk for details and to make sure to assign referral or schedule off of it. Thank you. documented in this encounter [facility] 08-30-2023 Telephone encounter Note This is notification that we have received a referral for the patient. Please reach out to schedule new patient appointment in your office. Please check the referral tab in appt desk for details and to make sure to assign referral or schedule off of it. Thank you. [facility] 08-29-2023 History of Present illness Narrative Patient [...] lab, instructions given to give kit to bobbin collector in lab. Patient verbalizes understanding. Subjective Laura Pond is a 22 y.o. female being seen today for her obstetrical visit. She is at 24w0d gestation. Patient reports no bleeding, no leaking, and patient reports continuous uterine cramping since beginning of , complains of vaginal discharge. Nexplanon in place at time of positive confirmation, Nexplanon was removed yesterday by CNM. . movement: normal. Patient denies vision changes, [...] but has an appointment to start counseling [facility] on 09/18/2023. We discussed antidepressant/antianxiety medication in [...] FT4 ECG 12 lead [facility] [place], [place] Ambulatory referral to Cardiology ([facility]) Chronic intractable headache, unspecified headache type Relevant Orders [facility] [place], [place] Chest pain, unspecified type Relevant Orders ECG [...] Ward 08/29/23 1700 documented in this encounter [facility] 08-28-2023 Evaluation + Plan note Associated Problem(s): Slow transit constipation Hydration, fibers Colace HS daily [facility] 08-28-2023 Miscellaneous Notes Associated Problem(s): Slow transit constipation Hydration, fibers Colace HS daily documented in this encounter [facility] 08-28-2023 History of Present illness Narrative Patient here for initial OB intake visit accompanied by her auntie (friend of the family); this is an unplanned , accepting about , FOB Ralph and family supportive supportive. This will be their third child together (recent set of twins at 25 weeks gestation, born 02/2023). Patient had a Nexplanon placed 04/05/2023 at [facility], found to be with Nexplanon in place at ED visit in [place]. Nexplanon was removed per this office 08/23/2023. Patient lives in [place], discussed availability of CNM office in [place], patient interested and will continue the remainder [...] this visit. Discussed Survey US; scheduled at [facility] 09/04/2023. Patient has vitamins she is taking. All questions asked and answered to patient's satisfaction. To return for OB visit with provider; plan PE with Pap & cultures next visit, patient verbalizes understanding. 22 y.o. at 23w6d. No CTX, VB, LOF. positive FM. Presents for Iitial OB Interview. She had a dating US today at [facility]. She has a [facility] survey 09-04-23 at [place] 1. Reviewed signs of labor and movement [...] 5-6 contractions an hour - [facility]States that she always had cramping with her twin . She delivered them at 25 weeks and they are doing well at home now after a long NICU stay at [facility]. 3. C/o constipation. Discussed fibers and hydration. Colace ordered 4. C/o headaches. States that she always has headaches. Magnesium ordered. States that she has caffeine daily - Pepsi. Discussed trying Tylenol also and staying hydrated. 5, Return 1 wks. With Mallika in [place]..Instructged that if she continues to have >5-6 contractions in 1 hour to call or go to hospital. FRANCES Joseph 08/28/23 1520 FRANCES Joseph 08/28/23 1711 documented in this encounter [facility] 08-23-2023 History of Present illness Narrative NEW PATIENT - Nexplanon removal Laura Pond is a 22 year old at 23w1d by 19w US (performed 07/30/23 [facility]). Pt has Nexplanon, placed 04/05/23 ([facility]). She is 6 months . She had [...] appt for Survey is 09/04/23, staffed called [facility] and [facility] but there are no openings. Therefore will obtain a growth US and cervical length as soon as possible and schedule pt for first opening for survey. After IOB, she may transfer to [place] office as that's where she lives. MFM [...] Stoll 08/23/23 1210 documented in this encounter [facility] 05-13-2023 Miscellaneous Notes ----- Message from FRANCES Arnold sent at 05/10/2023 9:53 PM EST ----- Regarding: Needs appt. PLease call patient Saturday05/13/23 to be seen, Nexplanon removal chitra. Thanks Images from the original note were not included. FRANCES Arnold [facility] Women Appointment Desk PLease call patient Saturday05/13/23 to be seen, Nexplanon removal chitra. Thanks Left message for patient to call office to schedule appt documented in this encounter [facility] 05-13-2023 Telephone encounter Note ----- Message from FRANCES Arnold sent at 05/10/2023 9:53 PM EST ----- Regarding: Needs appt. PLease call patient Saturday05/13/23 to be seen, Nexplanon removal chitra. Thanks [email or web address] [facility] 05-13-2023 Telephone encounter Note Images from the original note were not included. FRANCES Arnold [facility] Appointment Desk PLease call patient Saturday05/13/23 to be seen, Nexplanon removal chitra. Thanks Left message for patient to call office to schedule appt [facility] 05-10-2023 Miscellaneous Notes Patient called and would like to speak with a provider. She had the nexplanon placed on 04/05/23. Since then she complains that she's had migraines that have not been helped with tylenol or motrin and has been really nauseous. Please advise. Called patient & left a message for her to call my fake company [employer] or CNM pager, both numbers given to [...] pt desires neurology consult & appointment at [facility] to speak in person with provider. Advised it would be reasonable to go to ED for this now & definitely to go if worst h/a of life or feeling of tight band of head, changes in vision again. Pt voiced agreement. Will leave office a message to call patient on Saturday to get scheduled chitra. [facility] 05-10-2023 Telephone encounter Note Patient called and would like to speak with a provider. She had the nexplanon placed on 04/05/23. Since then she complains that she's had migraines that have not been helped with tylenol or motrin and has been really nauseous. Please advise. [facility] 05-10-2023 Telephone encounter Note Called patient & left a message for her to call my [employer] or SHANIA pager, both numbers given to [...] pt desires neurology consult & appointment at [facility] to speak in person with provider. Advised it would be reasonable to go to ED for this now & definitely to go if worst h/a of life or feeling of tight band of head, changes in vision again. Pt voiced agreement. Will leave office a message to call patient on Saturday to get scheduled chitra. [facility] 11-14-2021 Evaluation note Encounter Date Diagnosis Assessment [...] occur if testing is performed too soon. [employer] Other Evaluation note* Diagnosis Encounter for follow-up Vaginal bleeding affecting early [facility] Diagnosis History of delivery, currently - Primary with history of pre-term labor History of twin in prior Personal history of other genital system and obstetric disorders History of prior with short cervix, currently 23 weeks gestation of [facility] Diagnosis care, subsequent , second trimester- Primary Short interval between pregnancies affecting in second trimester, antepartum Screen for STD (sexually transmitted disease) Screening examination for venereal disease Screening for genetic disease carrier status Encounter for screening for other genetic defects Acute intractable headache, unspecified headache type Constipation, unspecified constipation type [facility] Diagnosis Screen for STD (sexually transmitted [...] Moderate episode of recurrent major depressive disorder (CMS-HCC) Gastroesophageal reflux disease without esophagitis Esophageal reflux Slow transit constipation Intractable chronic migraine without aura and with status migrainosus documented in this encounter [facility] Diagnosis Second trimester - Primary state, incidental Late care in second trimester documented in this encounter [facility] Diagnosis Vaginal yeast infection- Primary Candidiasis of vulva and vagina documented in this encounter [facility] Diagnosis Intractable chronic migraine without aura and with status migrainosus- Primary Slow transit constipation Acute cystitis without hematuria Cystic fibrosis carrier Moderate episode of recurrent major depressive disorder (CMS-HCC) History of delivery Hx of thyroid disease Excessive growth affecting management of , antepartum, single or unspecified fetus Marijuana use during Maternal varicella, non-immune Supervision of other normal with adoption planned, antepartum Request for sterilization documented in this encounter [facility] Diagnosis Second trimester - Primary state, incidental Intractable chronic migraine without aura and with status migrainosus with adoption planned, antepartum Maternal varicella, non-immune Supervision of other normal Marijuana use during Hx of thyroid disease History of delivery Moderate episode of recurrent major depressive disorder (CMS-HCC) Cystic fibrosis carrier Intrauterine documented in this encounter [facility]* Diagnosis care, third trimester- Primary Food insecurity [facility] Diagnosis with 36 completed weeks gestation- Primary documented in this [facility]* Diagnosis 38 weeks gestation of - Primary Short interval between pregnancies affecting , antepartum Late care Insufficient care Hx of delivery, currently with history of pre-term labor documented in this encounter [facility]* Diagnosis Missed menses , unspecified gestational age Encounter for supervision of normal first in first trimester Screening, , for anatomic survey Encounter for anatomic survey Second trimester state, incidental 21 weeks gestation of Abnormal TSH BV (bacterial vaginosis) Unspecified vaginitis and vulvovaginitis [facility] Diagnosis care, subsequent , second [...] , antepartum- Primary documented in [facility]* Diagnosis Well woman exam with routine gynecological exam Routine gynecological examination Vaginal discharge Leukorrhea, not specified as infective STD exposure Missed menses , unspecified gestational age Diabetes mellitus screening Screening for diabetes mellitus Flank pain Abdominal pain, unspecified site [facility] Diagnosis 28 weeks gestation of [facility] Diagnosis Third trimester (HHS-HCC) state, incidental 32 weeks gestation of (HHS-HCC) H/O incompetent cervix, currently (HHS-HCC) Noncompliant patient, third trimester (HHS-HCC) [facility] Diagnosis 35 weeks gestation of (HHS-HCC) Third trimester (HHS-HCC) state, incidental documented in this encounter [facility] HealthcareInstructionsNot on filedocumented in this encounterPro[facility] SystemInstructionsNot on filedocumented in this encounterProMedine Health SystemInstructionsNot on filedocumented in this [facility] InstructionsNot on filedocumented in this [facility] InstructionsNot on filedocumented in this [facility] InstructionsNot on filedocumented in this [facility] InstructionsNot on filedocumented in this [facility] InstructionsNot on filedocumented in this [facility] InstructionsNot on filedocumented in this [facility] InstructionsNot on filedocumented in this [facility] InstructionsNot on filedocumented in this [facility]* Attachments The following attachments cannot be sent through Care Everywhere. * Managing pain during labor and delivery (Swazi) * How to tell when labor starts (Swazi) documented in this [facility]ructionsNot on file documented in this [facility] SystemInstructionsNot on file documented in this [facility] SystemReason for referral (narrative)* Consultation (Routine) - Pending Review Specialty Diagnoses / Procedures Referred By Wilbur ibarra Referred To Contact Cardiology Diagnoses Late care affecting in second trimester Chest pain, unspecified type Heart palpitations Mallika Conn APRN-CNM [address] [phone] Raghu Cummings MD [address] [place], [place] [id number] Referral ID Status Reason Start Date Expiration Date Visits Requested Visits Authorized [id number] Pending Review Specialty Services Required 08/29/2023 08/28/2024 1 1 * Consultation (Routine) - Pending Review Specialty Diagnoses / Procedures Referred By Wilbur ibarra Referred To Contact Neurology Diagnoses Late care affecting in second trimester Chronic intractable headache, unspecified headache type Mallika Conn APRN-CNM [address] [phone] Julianne Moyer MD [address] [place] [phone] Referral ID Status Reason Start Date Expiration Date Visits Requested Visits Authorized [id number] Pending Review Specialty Services Required 08/29/2023 08/28/2024 1 1 * Cardiology (Routine) - Pending Review Specialty Diagnoses / Procedures Referred By Contac t Referred To Contact Diagnoses Late care affecting in second trimester Chest pain, unspecified type Heart palpitations Procedures ECG 12 lead Mallika Conn APRN-CNM [address] , [address] [address] Referral ID Status Reason Start Date Expiration Date V isits Requested Visits Authorized [id number] Pending Review 08/29/2023 08/28/[address] [facility] ([facility] Consultation (Routine) - Pending Review Specialty Diagnoses / Procedures Referred By Contac t Referred To Contact Manufacturing Area Manager Diagnoses Second trimester with adoption planned, antepartum Mallika Conn APRN-CNM [address] [address] Referral ID Status Reason Start Date Expiration Date Visits Requested Visits Authorized [id number] Pending Review Specialty Services Required 10/10/2023 10/09/[address] [facility] (n[facility]ative)* Health Education (Routine) - Pending Review Specialty Diagnoses / Procedures Referred By Contac t Referred To Contact Nutrition Diagnoses Food insecurity Sally Newman, ASSISTANT [employer]OM[employer]ERIFF [address] [place] [address] [facility] [address] [place] [address] Referral ID Status Reason Start Date Expiration Date V isits Requested Visits Authorized [id number] Pending Review 11/19/2023 11/18/[address] [facility] Summary Purpose Family History No Family History [...] of prior with short cervix, currently Procedures [facility] with or without consult Amaya Cruz APRN-[employer]IFF [address] [place] [address] [facility] [address] [place] [address] Referral ID Status Reason Start Date Expiration Date V isits Requested Visits Authorized [id number] Pending Review 08/23/2023 08/22/2024 1 1 Additional Source Comments REASON FOR VISIT (unrecogniz ed section and content) Reason Comments ER Follow-up Pt was at [facility] ER on 05/15/2024 for vaginal bleeding. Pt [...] and content) DATE CREATED AUTHOR 09/13/2022 [facility] DATE CREATED AUTHOR AUTHOR'S ORGANIZ ATION [facility]/04/2022 [facility] DATE CREATED AUTHOR AUTHOR'S ORGANIZ ATION 09/05/2023 [facility] DATE CREATED AUTHOR AUTHOR'S ORGANIZ ATION 09/20/2023 [facility] DATE CREATED AUTHOR AUTHOR'S ORGANIZ ATION 12/09/2023 [facility] DATE CREATED AUTHOR AUTHOR'S ORGANIZ ATION 10/04/2024 [facility] DATE CREATED AUTHOR AUTHOR'S ORGANIZ ATION 10/04/2024 [facility] DATE CREATED AUTHOR AUTHOR'S ORGANIZ ATION 10/18/2024 [facility] dical Specialists EPIC Care Teams (unrecognized sec tion and content) Chaser Apprentice Relationship Specialty Start Date End Date No Pcp, [place] [address] PCP - General Family Medicine 07/30/23 Chaser Apprentice Relationship Specialty Start Date End Date No Pcp, [place] [address] PCP - General Family Medicine 07/30/23 Chaser Apprentice Relationship Specialty Start Date End Date No Pcp, [place] [address] PCP - General Family Medicine 07/30/23 Chaser Apprentice Relationship Specialty Start Date End Date No Pcp, [place] [address] PCP - General Family Medicine 07/30/23 Chaser Apprentice Relationship Specialty Start Date End Date No Pcp, [place] [address] PCP - General Family Medicine 07/30/23 Chaser Apprentice Relationship Specialty Start Date End Date No Pcp, [place] [address] PCP - General Family Medicine 06/23/22 Chaser Apprentice Relationship Specialty Start Date End Date No Pcp, [place] [address] PCP - General Family Medicine 07/30/23 Chaser Apprentice Relationship Specialty Start Date End Date No Pcp, [place] [address] PCP - General Family Medicine 07/30/23 Chaser Apprentice Relationship Specialty Start Date End Date No Pcp, [place] [address] PCP - General Family Medicine 07/30/23 Chaser Apprentice Relationship Specialty Start Date End Date No Pcp, [place] [address] PCP - General Family Medicine 07/30/23 Chaser Apprentice Relationship Specialty Start Date End Date No Pcp, [place] [address] PCP - General Family Medicine 07/30/23 Chaser Apprentice Relationship Specialty Start Date End Date No Pcp, [place] [address] PCP - General Family Medicine 07/30/23 Chaser Apprentice Relationship Specialty Start Date End Date No Pcp, [place] [address] PCP - General Family Medicine 07/30/23 Chaser Apprentice Relationship Specialty Start Date End Date No Pcp, [place] [address] PCP - General Family Medicine 07/30/23 Chaser Apprentice Relationship Specialty Start Date End Date No Pcp, [place] [address] PCP - General Family Medicine 07/30/23 Chaser Apprentice Relationship Specialty Start Date End Date Osmany Bella DO [address] [place] [address] [place] [address] PCP - General Obstetrics & Gynecology 07/12/24 [...] BE BASED ON THE PRIMARY CLINICAL RECORDS. [employer] [facility]. provides no warranty or guarantee of the accuracy or completeness of information in this document.
[2024-10-24 01:19] LABS: Bilirubin Urine NEGATIVE (NEGATIVE); Blood Urine TRACE-I (NEGATIVE); Clarity Urine CLEAR (CLEAR); Color Urine LT. YELLOW (YELLOW); Glucose Urine UA NEGATIVE (NEGATIVE); Ketones Urine NEGATIVE (NEGATIVE); Leukocyte Esterase Urine SMALL (NEGATIVE); Nitrite Urine NEGATIVE (NEGATIVE); Protein Urine NEGATIVE (NEG/TRACE); Urine Microscopic Indicated YES; pH Urine 7.5 (5.0-9.0)
[2024-10-24 01:20] LABS: Urine Culture Indicated YES-LC
[2024-10-24 01:25] LABS: Bacteria Urine MODERATE #/HPF (NONE SEEN); Cast Seen? NONE SEEN #/LPF (NONE SEEN); Crystals Seen? None Seen #/HPF (None Seen); Mucus Urine NONE SEEN (NONE SEEN); Squamous Epithelial Cell Urine FEW #/LPF (NONE/RARE)
[2024-10-24 02:10] LABS: Basophils Percent Auto 0.1 % (0.2-2.0); Eosinophils Absolute Auto 0.1 10^3/uL (0.0-0.7); Eosinophils Percent Auto 0.6 % (0.9-7.0); Hematocrit 28.4 % (36.0-48.0); Hemoglobin 9.3 g/dL (12.0-16.0); Immature Granulocytes Abs Auto 0.04 10^3/uL (0.00-0.03); Immature Granulocytes Pct Auto 0.5 % (0.0-0.5); Lymphocytes Absolute Auto 1.8 10^3/uL (1.2-3.8); Lymphocytes Percent Auto 20.4 % (20.5-60.0); Mean Corpuscular HGB Conc 32.7 g/dL (29.9-35.2); Mean Corpuscular Hemoglobin 26.4 pg (26.7-34.0); Mean Corpuscular Volume 80.7 fL (81.0-99.0); Mean Platelet Volume 10.2 fL (9.5-13.5); Monocytes Absolute Auto 0.6 10^3/uL (0.3-0.8); Monocytes Percent Auto 7.4 % (1.7-12.0); Neutrophils Absolute Auto 6.2 10^3/uL (1.4-6.5); Platelet Count 213 10^3/uL (150-450); Red Blood Count 3.52 10^6/uL (4.20-5.40); Red Cell Distribution Width 14.5 % (11.0-15.0); White Blood Count 8.7 10^3/uL (4.0-11.0)
[2024-10-24] MEDS: 0.9 % SODIUM CHLORIDE 1,000 ML 125 ML IV ×4 (02:18→20:53)
[2024-10-24] MEDS: CEFAZOLIN SODIUM/DEXTROSE,ISO 2 GM/50 ML PIGGYBACK IV (02:19)
[2024-10-24] MEDS: NALBUPHINE HCL 10 MG/ML AMPULE IV ×2 (02:20→11:36)
[2024-10-24 02:23] LABS: Alanine Aminotransferase 13 U/L (14-59); Albumin Globulin Ratio 0.5; Albumin Level 1.9 g/dL (3.4-5.0); Alkaline Phosphatase 207 U/L (46-116); Anion Gap 13.6; Aspartate Amino Transferase 17 U/L (15-37); BUN Creatinine Ratio 12.5; Bilirubin Total 0.4 mg/dL (0.2-1.0); Calcium 8.2 mg/dL (8.5-10.1); Chloride 104 mmol/L (98-107); Estimated GFR (African America >60 (>=60 mL/min/1.73m^2); Estimated GFR (Non-African Ame >60 (>=60 mL/min/1.73m^2); Globulin 3.9 g/dL; Glucose 87 mg/dL (74-106); Potassium 3.6 mmol/L (3.5-5.1); Sodium 138 mmol/L (136-145); Total Protein 5.8 g/dL (6.4-8.2)
--- NOTE | 2024-10-24 09:04 | US_ITS ---
[address] [place] [id number] Patient Name: LAURA FOUNTAIN MRN: [id number] date: 2000 Sex: F Assigned Patient Location: [facility] Current Patient Location: Accession/Order Number: [id number] Exam Date: 10/26/2024 07:43 Report Date: 10/26/2024 08:15 At the request of: ZHANE NORWOOD DO Procedure: US OB BPP w non-stress CLINICAL INFORMATION: 10/11 for breathing yesterday BIOPHYSICAL PROFILE: COMPARISON: 10/23/2024 There is a single live intrauterine gestation in cephalic presentation. The reported gestational age is 34 weeks 6 days. The heart rate is 131 bpm. FINDINGS: TONE: 1 or more episodes of activity extension and flexion of extremity or opening and closing of the hand [Y] 2/2 GROSS BODY MOVEMENTS: 3 or more discrete body or limb movements [Y] 2/2 BREATHING MOVEMENTS: 1 or more episodes of breathing lasting at least 30 seconds [Y] 2/2 MELLISA: A single deepest vertical pocket of amniotic fluid greater than 2 cm [Y] 2/2 MELLISA: 18.1 cm. This is in upper normal range. Total score: 12/11 US/US OB BPP w non-stress IMPRESSION: NORMAL BIOPHYSICAL PROFILE Impression dictated by: Helena De Souza M.D. 10/26/2024 8:15 AM Dictation Location: [place] [address] Electronically authenticated by: [id number] Y Date: 10/26/2024 08:15
[2024-10-24] MEDS: CEFAZOLIN SODIUM/DEXTROSE,ISO 1 GM/50 ML PREMIX IV ×2 (10:33→18:25)
--- NOTE | 2024-10-24 11:01 | PC.NURSE ---
pt updated on plan of care, states that she spoke with Dr Bella, she's aware that she has a kidney stone to Rt kidney going into bladder, placenta looks good and her BPP was great 8/8 and MELLISA 18.1. She was placed on the schedule for repeat c/s November 03. and is to get [facility] with her next NST. pt states she would like to stay tonight as if her pain gets worse trying to pass a kidney stone she has nobody to bring her in for pain management except for EMS.
--- NOTE | 2024-10-24 12:51 | PM.OBHP ---
OB - H&P: HPI History of Present Illness Chief complaint: R/O LABOR : 5 Para: 3 Gestational age based on last menstrual period: 35 3/7wks Narrative: 24 yo at 35 3/7wks presents with backpain and rt flank pain, pt denies ctxns, lof, vb, pt denies urinary symptoms, positive fm. pt states she has ho of kidney stones, History of Present Dating criteria: LMP confirmed by 1st trimester US care: good care Ultrasounds: normal 1st trimester US and normal mid trimester US Medical complications OB: other (kidney stones) Labs Blood type: O (+) positive Rubella: immune RPR/VDLR: nonreactive GBS status: negative HBsAG: negative Review of Systems ROS Status of ROS: 10 or more systems reviewed and unremarkable except as noted in history and below [facility] Medical History (Updated 10/24/24 @ 13:01 by Osmany Bella DO) Migraines ?G43.909 - Migraine, unspecified, not intractable, without status migrainosus (ICD-10) Meds Home Medications and Allergies Home Medications ?Medication ?Instructions ?Recorded ?Confirmed ?Type lansoprazole 30 mg capsule,delayed 30 mg PO DAILY 12/12/23 12/12/23 History release (Prevacid) ibuprofen 800 mg tablet 800 mg PO Q8H PRN pain 14 days #40 12/13/23 Rx tabs oxycodone-acetaminophen 5 mg-325 1 tab PO Q6H PRN pain 7 days #28 12/13/23 Rx mg tablet (Percocet) tabs Allergies Allergy/AdvReac Type Severity Reaction Status Date / Time No Known Drug Allergies Allergy Verified 12/04/22 08:46 Exam Constitutional Vital Signs, click to edit/add: Last Vital Signs Temp 97.1 F L 10/24/24 11:41 Pulse 86 10/24/24 11:39 Resp 18 10/24/24 11:41 BP 110/62 10/24/24 11:39 Documenting provider has reviewed patient's vital signs: yes Common normals: no apparent distress Respiratory Common normals: normal respiratory effort and clear to auscultation bilaterally Cardio Common normals: regular rate and regular rhythm GI Common normals: Normal to inspection, nondistended, normoactive bowel sounds present Extremity Common normals: no clubbing, cyanosis or edema and no calf tenderness Results Labs Labs: Short CBC 10/24/24 Range/Units 02:03 WBC 8.7 (4.0-11.0) 10^3/uL Hgb 9.3 L (12.0-16.0) g/dL Hct 28.4 L (36.0-48.0) % Plt Count 213 (150-450) 10^3/uL BMP 10/24/24 02:03 Sodium 138 Potassium 3.6 Chloride 104 Carbon Dioxide 24.0 BUN 5.0 L Creatinine 0.40 L Glucose 87 Calcium 8.2 L Liver Function 10/24/24 Range/Units 02:03 Total Bilirubin 0.4 (0.2-1.0) mg/dL AST 17 (15-37) U/L ALT 13 L (14-59) U/L Alkaline Phosphatase 207 H (46-116) U/L Albumin 1.9 L (3.4-5.0) g/dL Urine 10/24/24 Range/Units 00:30 Urine Color Lt. yellow (YELLOW) Urine Clarity Clear (CLEAR) Urine pH 7.5 (5.0-9.0) Ur Specific Lambert 1.010 (1.005-1.025) Urine Protein Negative (NEG/TRACE) mg/dL Urine Glucose (UA) Negative (NEGATIVE) mg/dL OB - A/P Assessment and Plan (1) Intrauterine : (2) Kidney stone complicating : Assessment and Plan: ultrasound and labs reviewed, will continue hydration, will cont pain control, iv antiemetic, iv abx, consider dc home in am (3) Previous section:
--- NOTE | 2024-10-24 15:56 | PC.NURSE ---
pt has voided 3 times and has had clear miguel angel urine with grainy sediment present. pt states during this past void she has no more pain to the right side or rt back but now the pain is on the left.
[2024-10-24] MEDS: HYDROCODONE/ACET 5-325 MG TABLET 2 TAB PO ×2 (18:24→23:57)
--- NOTE | 2024-10-24 18:28 | PC.NURSE ---
pt up to bathroom, sediment noted to clear straw yellow urine. pt c/o pain to lt flank and lower back 12/13 2 tablets vicodin administered per order. pt resting in bed. IV infusing without difficulty. pt eating supper denies any other needs or concerns at this time.
[2024-10-25] MEDS: CEFAZOLIN SODIUM/DEXTROSE,ISO 1 GM/50 ML PREMIX IV ×2 (01:40→09:35)
[2024-10-25 04:18] VITALS: BP 101/56; PULSE 76; TEMP 35.2
[2024-10-25] MEDS: 0.9 % SODIUM CHLORIDE 1,000 ML 125 ML IV (05:03)
[2024-10-25 08:17] VITALS: BP 113/65; PULSE 64; TEMP 36.8
[2024-10-25] MEDS: HYDROCODONE/ACET 5-325 MG TABLET 2 TAB PO (08:21)
--- NOTE | 2024-10-25 10:38 | P.OBPN_ITS ---
OB - PN: Subj Subjective Patient comments: no complaints and pain well controlled [place] status: doing well Exam Constitutional Vital Signs, click to edit/add: Last Vital Signs Temp 98.2 F 10/25/24 08:17 Pulse 64 10/25/24 08:17 Resp 16 10/25/24 08:17 BP 113/65 10/25/24 08:17 Documenting provider has reviewed patient's vital signs: yes Common normals: no apparent distress Respiratory Common normals: normal respiratory effort and clear to auscultation bilaterally Cardio Common normals: regular rate and regular rhythm GI Common normals: Normal to inspection, nondistended, normoactive bowel sounds present Extremity Common normals: no clubbing, cyanosis or edema and no calf tenderness OB - PN: A/P Assessment and Plan (1) Intrauterine : (2) Kidney stone complicating : (3) Previous section: Plan greatly improved, dc home, fu 1wk, precautions given, us and labs reviewed Time Spent with Patient Time: Total time spent is greater than 50% in coordination of care (as documented) at patient's floor/unit and/or counseling patient: Total time spent with greater than 50% in coordination of care (as documented) at patient's floor/unit and/or counseling patient: less than 15 minutes
--- NOTE | 2024-10-25 10:38 | PC.NURSE ---
4484ml IV fluids administered. IV removed tip intact, discharge instructions removed.
== END 2024-10-25 12:36 | disposition home or self-care (01) ==
PROVIDERS: Admitting Provider Obstetrics & Gynecology; Visit Provider Obstetrics & Gynecology
DX: O99.891 Other specified diseases and conditions complicating pregnancy (principal); N20.0 Calculus of kidney; O34.211 Maternal care for low transverse scar from previous cesarean delivery; Z3A.35 35 weeks gestation of pregnancy; Z87.442 Personal history of urinary calculi
CPT/HCPCS: 36415; 59025; 76775; 76815; 76818; 80053; 81001; 85025; 87086; 96365; 96366; 96375; 96376; G0378; G0379; J0690; J2300

== ENCOUNTER 2024-10-27 12:00 | Outpatient (OUT) | payer MEDICAID, SELFPAY ==
--- OUTSIDE RECORDS SUMMARY | 2023-09-02 13:15 | XMS_ITS ---
Author Organization [facility] vices Address [address] [place], [place] [address] Care Team Providers Care Small Business Sales Representative Name Role Phone Arlene Ospina Primary Care Provider Ruth Bess [phone] REASON FOR VISIT Initial psychiatric evaluation Medications [...] Location Date Provider Diagnosis Main [address] [place], [place] [id number] 09/02/2023 Ruth Bess Dietary counseling Z 71.3 and Exercise counseling Z71.82 Assessments Encounter Date Diagnosis (ICD Code) Assessment Notes Treatment Notes Treatment Clinical Notes Section Notes 09/02/2023 Dietary counseling (ICD-10 - Z71.3) 09/02/2023 Exercise counseling (ICD-10 - Z71.82) Plan Of Treatment Next Appt Details Follow Up: 4 Weeks,prn, Reas on: Progress Notes * Chetna PONDonDOB:2000 (24 yo F)Acc No.[id number]:09/02/2023 Patient: Georgie ARAMBULA Provider: DELIA Kebede :2000 A ge:22 Y S ex:Female Date:09/02/2023 Address:[address] [place], [place] [address] Pcp:Arlene Ospina Subjective: * Chief Complaints: * [...] Problems: * Billing Information: * Visit Code: 75204 Psychiatric diagnostic eval with med sv. Modifiers: SA * Procedure Codes: Care Plan Details* * Electronic signature of DELIA Madsen on 10/27/2024 at 11:55 AM EDT Sign off status: Pending * Provider: DELIA Kebede Date: 0 09/02/2023 Generated for Yarely leon/Arvind/Thangitting on: 0 10/27/2024 11:55 AM EDT
--- OUTSIDE RECORDS SUMMARY | 2024-10-15 15:30 | XMS_ITS | Encounter Summary ---
Author Organization [facility] Address [address] [place] [address] Care Team Providers Care Media Operator Name Role Phone Unavailable Primary Care Provider Unavailabl e Reason for Visit * Reason Comments Routine Visit Encounter Details Date Type Department Care Team ([facility] Contact Info) Description 10/15/2024 3:30 PM EDT Routine [facility] [address] [phone] Mya Kaplan PA [address] [place], [place] [phone] Third trimester ([facility]); 32 weeks gestation of ([facility]); H/O incompetent cervix, currently ([facility]); Noncompliant patient, third trimester ([facility]) Social History Tobacco Use Types Packs/Day [...] nursing note reviewed. Exam conducted with a operator assistant i cementing present. Vitals: There is no height or weight on file to calculate BMI. BP: 118/78 No LMP recorded. Patient is . ASSESSMENT & PLAN ICD-10-CM 1. Third trimester ([facility]) Z34.93 2. 32 weeks gestation of ([facility]) Z3A.32 3. H/O incompetent cervix, currently ([facility]) O09.299 4. Noncompliant patient, third trimester ([facility]) O09.893 Z91.199 Patient presents today for a routine obstetrics appointment. Patient is currently 34w2d with a Estimated Date of Delivery: 11/24/24. Patient made aware that she will need to start NST/BPP andgrowth scan to be started at [facility]. Patient given orders and sent to [facility] and [facility] Scheduling. Patient to return to clinic in 1 week for routine OB appointment. Documented by Christie Wiley LPN on behalf of: BLANCA Gibson documented in this encounter Plan of Treatment Upcoming Encounters Date Type Department Care Team (Late st Contact Info) Description 10/28/2024 2:30 PM EDT Routine [facility] OB [address] [place] [address] Osmany Bella, DO [address] [place] [address] Scheduled Orders Name Type Priority Associated Diagnoses Orde r Schedule US biophysical profile w non stress test Imaging Routine Third trimester ([facility]) 32 weeks gestation of ([facility]) H/O incompetent cervix, currently ([facility]) Noncompliant patient, third trimester ([facility]) Expected: 10/15/2024 (Approximate), Expires: 04/16/2025 US [...]
--- OUTSIDE RECORDS SUMMARY | 2024-10-15 15:30 | XMS_ITS | Encounter Summary ---
Author Organization [facility] Address [address] [place] [address] Care Team Providers Care Veteran Appeals Reviewer Name Role Phone Unavailable Primary Care Provider Unavailabl e Reason for Visit * Reason Comments Routine Visit Encounter Details Date Type Department Care Team ([facility] Contact Info) Description 10/15/2024 3:30 PM EDT Routine [facility] [address] [place] [phone] Mya Kaplan PA [address] [place], [place] [phone] Third trimester ([facility]); 32 weeks gestation of ([facility]); H/O incompetent cervix, currently ([facility]); Noncompliant patient, third trimester ([facility]) Social History Tobacco Use Types Packs/Day Years [...] nursing note reviewed. Exam conducted with a hot press operator present. Vitals: There is no height or weight on file to calculate BMI. BP: 118/78 No LMP recorded. Patient is . ASSESSMENT & PLAN ICD-10-CM 1. Third trimester ([facility]) Z34.93 2. 32 weeks gestation of ([facility]) Z3A.32 3. H/O incompetent cervix, currently ([facility]) O09.299 4. Noncompliant patient, third trimester ([facility]) O09.893 Z91.199 Patient presents today for a routine obstetrics appointment. Patient is currently 34w2d with a Estimated Date of Delivery: 11/24/24. Patient made aware that she will need to start NST/BPP andgrowth scan to be started at [facility]. Patient given orders and sent to [facility] and [facility] Scheduling. Patient to return to clinic in 1 week for routine OB appointment. Documented by Christie Wiley LPN on behalf of: BLANCA Gibson documented in this encounter Plan of Treatment Upcoming Encounters Date Type Department Care Team (Late st Contact Info) Description 10/28/2024 2:30 PM EDT Routine [facility] [address] [place] [address] Osmany Bella, DO [address] [place] [address] Scheduled Orders Name Type Priority Associated Diagnoses Orde r Schedule US biophysical profile w non stress test Imaging Routine Third trimester ([facility]) 32 weeks gestation of ([facility]) H/O incompetent cervix, currently ([facility]) Noncompliant patient, third trimester ([facility]) Expected: 10/15/2024 (Approximate), Expires: 04/16/2025 US OB [...] patient, third trimester ([facility]) documented in this encounter"
--- OUTSIDE RECORDS SUMMARY | 2024-10-21 14:30 | XMS_ITS | Encounter Summary ---
Author Organization [facility] Address [address] [place] [address] Care Team Providers Care Watch Manufacturing Supervisor Name Role Phone Unavailable Primary Care Provider Unavailabl e Encounter Details Date Type Department Care Team (Late st Contact Info) Description 10/21/2024 2:30 PM EDT Routine [facility] OB [address] [place] [phone] Mya Kaplan PA [address] [place], [facility]11 35 weeks gestation of ([facility]); Third trimester ([facility]) Social History Tobacco Use Types Packs/Day [...] nursing note reviewed. Exam conducted with a hazardous waste management specialist present. Vitals: There is no height or [...] is now able to resume visitation at [facility] Facility as previously scheduled to see her twins. Patient verbalized understanding and will return to clinic in 1 week. Documented by Christie Wiley LPN on behalf of: BLANCA Gibson documented in this encounter Plan of Treatment Upcoming Encounters Date Type Department Care Team (Late st Contact Info) Description 10/28/2024 2:30 PM EDT Routine [facility] OB [address] [place] [address] Osmany Bella, DO [address] [place] [address] documented as of this encounter Procedures Procedure Name Priority Date/Time Associated Diagnosis Comments POCT URINALYSIS DIPSTICK Routine 10/21/2024 3:08 PM EDT 35 weeks gestation of ([facility]) Third trimester ([facility]) documented in this encounter Results * (ABNORMAL) [...] Visit Diagnoses Diagnosis 35 weeks gestation of ([facility]) Third trimester ([facility]) state, incidental documented in this encounter
--- OUTSIDE RECORDS SUMMARY | 2024-10-21 14:30 | XMS_ITS | Encounter Summary ---
Author Organization [facility] Address [address] [place] [address] Care Team Providers Care Bulb Farmworker Name Role Phone Unavailable Primary Care Provider Unavailabl e Encounter Details Date Type Department Care Team (Late st Contact Info) Description 10/21/2024 2:30 PM EDT Routine [facility] OB [address] [address] Mya Kaplan PA [address] [place], [facility] 35 weeks gestation of ([facility]); Third trimester ([facility]) Social History Tobacco Use Types Packs/Day [...] nursing note reviewed. Exam conducted with a manager patient present. Vitals: There is no height or [...] is now able to resume visitation at [facility] Facility as previously scheduled to see her twins. Patient verbalized understanding and will return to clinic in 1 week. Documented by Christie Wiley LPN on behalf of: BLANCA Gibson documented in this encounter Plan of Treatment Upcoming Encounters Date Type Department Care Team (Late st Contact Info) Description 10/28/2024 2:30 PM EDT Routine [facility] OB [address] [place] [address] Osmany Bella, DO [address] [place] [address] documented as of this encounter Procedures Procedure Name Priority Date/Time Associated Diagnosis Comments POCT URINALYSIS DIPSTICK Routine 10/21/2024 3:08 PM EDT 35 weeks gestation of ([facility]) Third trimester ([facility]) documented in this encounter Results * [...] Visit Diagnoses Diagnosis 35 weeks gestation of ([facility]) Third trimester ([facility]) state, incidental documented in this encounter
--- OUTSIDE RECORDS SUMMARY | 2024-10-27 11:54 | XMS_ITS | Encounter Summary ---
Author Organization [facility] Address [address] [place] [address] Care Team Providers Care Paint Prepper Name Role Phone Unavailable Primary Care Provider Unavailabl e Encounter Details Date Type Department Care Team (Late Contact Info) Description 12/17/2023 Abstract [facility] [address] [place] [id number] Marie Cuellar LPN [address] [id number] Social History Tobacco Use Types Packs/Day Years [...] Description 10/28/2024 2:30 PM EDT Routine [facility] [address] [place] [address] Osmany Bella DO [address] [place], [place] [id number] documented as of this encounter Visit Diagnoses Not on filedocumented in this encounter
--- OUTSIDE RECORDS SUMMARY | 2024-10-27 11:54 | XMS_ITS | Encounter Summary ---
Author Organization [facility] Address [address] [place] [address] Care Team Providers Care Fish Roe Processor Name Role Phone Unavailable Primary Care Provider Unavailabl e Encounter Details Date Type Department Care Team (Late st Contact Info) Description 12/15/2023 Clinisync Result Encounter [facility] Unsolicited Zhane Bella, [address] [place] [address] Social History Tobacco Use Types Packs/Day Years [...] Description 10/28/2024 2:30 PM EDT Routine [facility] [address] [place] [id number] Zhane Bella [facility] [place] [address] documented as of this encounter Procedures Procedure Name Priority Date/Time Associated Diagnosis Comments ECG 12-LEAD 12/15/2023 11:21 AM EDT documented in this encounter Results * ECG 12-LEAD (12/15/2023 11:21 AM EDT) Anatomical Region Laterality Modality Other 12/15/2023 11:2 1 AM EDT Narrative 12/16/2023 8:32 AM EDT The [address] [address] Electrocardiograph Report Signed Patient: GEORGIE POND MR#: [id number] : 2000 Acct:[id number] Age/Sex: 23 / F ADM Date: Loc: [facility] 258- Attending Dr: Zhane Bella D.O. Ordering Physician: Zhane Bella D.O. Date of Service: 12/15/23 Procedure(s): ECG 12 lead Accession Number(s): [id number] cc: [facility] Test Date: 2023-12-15 Pat Name: GEORGIE MATA Department: Room: [facility] Gender: Female Hr Manager: : 2000 Requested By: ZHANE BELLA Order Number: [id number] Reading MD: BEAR [place] Measurements Intervals [place] Rate: 80 P: 20 WI: 145 QRS: 32 QRSD: 86 T: 26 QT: 352 QTc: 408 Interpretive Statements SINUS RHYTHM Non-Specific T wave inversion in III WARNING: DATA QUALITY MAY AFFECT INTERPRETATION No previous ECG available for comparison Electronically Signed On 12-16-2023 8:32:05 EDT by BEAR R[place] Dictated By: Bear Richardson M.D. Signed By: 12/16/23 0832 DD/ 1121 TD/TT: Car Lubricator: Procedure Note Radiology, Radiologist, MD - 12/16/2023 [address] [place] [id number] Electrocardiograph Report Signed Patient: GEORGIE POND TMR#: [id number] : 2000Acct:[id number] Age/Sex: 23 / FADM Date: Loc: [facility] 258-[address]: Zhane Bella D.O. Ordering Physician: Zhane Bella D.O. Date of Service: 12/15/23 Procedure(s): ECG 12 lead Accession Number(s): [id number] cc: [facility] Test Date: 2023-12-15 Pat Name: [facility] Department: Room: [facility] Gender: Female Hr Manager: : 2000 Requested By: ZHANE BELLA Order Number: [id number] Reading MD: BEAR R[place] Measurements Intervals [place] Rate: 80 P: 20 WI: 145 QRS: 32 QRSD: 86 T: 26 QT: 352 QTc: 408 Interpretive Statements SINUS RHYTHM Non-Specific T wave inversion in III WARNING: DATA QUALITY MAY AFFECT INTERPRETATION No previous ECG available for comparison Electronically Signed On 12-16-2023 8:32:05 EDT by BEAR R[place]AR[place] Dictated By: Bear Richardson M.D. Signed By:12/16/23 0832 DD/ 1121 TD/TT: Car Lubricator: us Zhane Bella DO [facility] Final Result documented in this encounter Visit Diagnoses Not on filedocumented in this encounter
--- OUTSIDE RECORDS SUMMARY | 2024-10-27 11:55 | XMS_ITS | Encounter Summary ---
Author Organization [facility] Address [address] [place] [address] Care Team Providers Care Information Technology Intern Name Role Phone Unavailable Primary Care Provider Unavailabl e Encounter Details Date Type Department Care Team (Late st Contact Info) Description 12/15/2023 Clinisync Result Encounter [facility] External Department Unsolicited Zhane Bella, DO [address] [place] [address] Social History Tobacco Use Types Packs/Day Years [...] Description 10/28/2024 2:30 PM EDT Routine [facility] OB [address] [place] [phone] Zhane Bella [address] [place] [address] documented as of this encounter Procedures Procedure Name Priority Date/Time Associated Diagnosis Comments CT ANGIOGRAM CHEST 12/15/2023 1: 32 PM EDT documented in this encounter Results * CT angiogram chest (12/15/2023 1:32 PM EDT) Anatomical Region Laterality Modality Body, Chest Computed Tomogra phy 12/15/2023 1:32 PM EDT Narrative 12/15/2023 1:35 [place] [address] CT Scan Report Signed Patient: GEORGIE POND MR#: [id number] : 2000 Acct:[id number] Age/Sex: 23 / F ADM Date: Loc: [facility] 258-[address]: Zhane Bella D.O. Ordering Physician: Zhane Bella D.O. Date of Service: 12/15/23 Procedure(s): CT angio chest Accession Number(s): [id number] cc: Physician,Non-Staff M.[place] [id number] Patient Name: GEORGIE POND MRN: [id number]:[id number] date: 2000 Sex: F Assigned Patient Location: [facility] Current Patient Location: [facility] Accession/Order Number: [id number] Exam Date: 12/15/2023 11:40 Report Date: 12/15/2023 [...] Signed By: 12/15/23 1335 DD/ 1332 TD/TT: Prosthetic Aides Teacher: Procedure Note Radiology, Radiologist, - 12/15/2023 [place] [address] CT Scan Report Signed Patient: GEORGIE POND TMR#: [id number] : 2000Acct:[id number] Age/Sex: 23 / FADM Date: Loc: [facility] 258-[address]: Zhane Bella D.O. Ordering Physician: Zhane Bella D.O. Date of Service: 12/15/23 Procedure(s): CT angio chest Accession Number(s): [id number] cc: Physician,Non-Staff Adriana The [place] [address] Patient Name: GEORGIE POND MRN: [id number]:[id number] date: 2000 Sex: F Assigned Patient Location: [facility] Current Patient Location: [facility] Accession/Order Number: [id number] Exam Date: 12/15/2023 11:40 Report Date: 12/15/2023 [...] M.D. Signed By:12/15/23 1335 DD/ 1332 TD/TT: Prosthetic Aides Teacher: Zhane Bella DO [facility] CT PROCEDURES Final Result documented in this encounter Visit Diagnoses Not on filedocumented in this encounter
--- OUTSIDE RECORDS SUMMARY | 2024-10-27 11:55 | XMS_ITS | Encounter Summary ---
Author Organization [facility] Address [address] [place] [address] Care Team Providers Care Automotive Service Writer Name Role Phone Unavailable Primary Care Provider Unavailabl e Encounter Details Date Type Department Care Team (Late st Contact Info) Description 10/26/2024 Telephone [facility] OB [address] [place] [phone] Osmany Bella, DO [address] [place], [place] [phone] Social History Tobacco Use Types Packs/Day Years [...] Telephone Encounter - Christie Wiley LPN - 10/26/2024 8:38 AM EDT [facility] pharmacy called and voiced that they received a prescription for patient yesterdayand they have never filled for her and do not have any info for patient. Pharmacy is unable to fillas they are for patients that see their providers only. After speaking with Dr. Bella Keflex TID was sent to pharmacy in chart and per Dr. Bella patient isto be delivered on 11/03/24 via repeat . Electronic Equipment Installer was informed. Christie Wiley LPN documented in this encounter Plan of Treatment Upcoming Encounters Date Type Department Care Team (Late st Contact Info) Description 10/28/2024 2:30 PM EDT Routine [facility] [address] [facility] [place] [place] [address] Osmany Bella, [address] [facility] [place] [address] documented as of this encounter Visit Diagnoses Diagnosis Kidney stones Calculus of kidney documented in this encounter
--- OUTSIDE RECORDS SUMMARY | 2024-10-27 11:55 | XMS_ITS | Encounter Summary ---
Author Organization [facility] tem Address [id number] [address] [place] [address] Care Team Providers Care Mixing Roll Operator Name Role Phone No Pcp, No Pcp Primary Care Provider Unavailabl e Encounter Details Date Type Department Care Team (Late st Contact Info) Description 01/09/2023 Orders Only Maternal- Medicine at [facility] [address] [place] [phone] Ref Prov, [place] [address] Social History Tobacco Use Types Packs/Day Years [...] often do you attend chur ch or temple services? Never 03/26/2021 Do you belong to any clubs o r organizations such as confucianist groups, unions, fraternal or athletic groups, or [...] Answer Date Recorded Total Score 15 08/03/2021 [facility] - [...] Recorded Do you need help finding a [facility] and/or a training program? No 03/26/2021 Purpose - Life Answer Date Recorded I have a purpose and direction in my life. Giulai hanna Agree nor Disagree 03/26/2021 Education Answer [...] documented as of this encounter Care Teams Mixing Roll Operator Relationship Specialty Start Date End Date No Pcp, No Pcp RYLIE Paige [address] PCP - General Family Medicine 09/01/24 documented as of this encounter
--- OUTSIDE RECORDS SUMMARY | 2024-10-27 11:55 | XMS_ITS | Encounter Summary ---
Author Organization [facility] Address [address] [place] [address] Care Team Providers Care Extractor Plant Operator Name Role Phone Unavailable Primary Care Provider Unavailabl e Encounter Details Date Type Department Care Team (Late Contact Info) Description 08/28/2024 Results Follow-Up [facility] [address] [place] [address] Marie Cuellar LPN [address] [place] [phone] Social History Tobacco Use Types Packs/Day Years [...] Upcoming Encounters Date Type Department Care Team ([facility] Contact Info) Description 10/28/2024 2:30 PM EDT Routine [facility] OB [address] [place] [address] Osmany Bella, DO [address] [facility] [address] [place], [facility] documented as of this encounter Visit Diagnoses Not on filedocumented in this encounter
--- OUTSIDE RECORDS SUMMARY | 2024-10-27 11:55 | XMS_ITS | Encounter Summary ---
Author Organization [facility] Address [address] [place] [address] Care Team Providers Care Physician Ophthalmologist Name Role Phone Unavailable Primary Care Provider Unavailabl e Encounter Details Date Type Department Care Team (Late Contact Info) Description 11/29/2023 Abstract [facility] OB [address] [facility] [place] [phone] Marie Cuellar LPN [address] [place] [phone] Social History Tobacco Use Types Packs/Day Years [...] Description 10/28/2024 2:30 PM EDT Routine [facility] OB [address] [facility] [place] [phone] Osmany Bella [address] [place], [place] [phone] documented as of this encounter Visit Diagnoses Not on filedocumented in this encounter
--- OUTSIDE RECORDS SUMMARY | 2024-10-27 11:55 | XMS_ITS | Encounter Summary ---
Author Organization [facility] Address [address] [place] [address] Care Team Providers Care Kettle Worker Name Role Phone Unavailable Primary Care Provider Unavailabl e Encounter Details Date Type Department Care Team (Late st Contact Info) Description 10/26/2024 Clinisync Result Encounter [facility] External Department Unsolicited Zhane Bella, DO [address] [place] [address] Social History Tobacco Use Types Packs/Day Years [...] PM EDT Routine [facility] OB [address] [place] [phone] Zhane Bella, [facility] [place] [address] documented as of this encounter Procedures Procedure Name Priority Date/Time Associated Diagnosis Comments US OB BPP W NON-STRESS 10/26/2024 8:15 AM EDT documented in this encounter Results * US OB BPP W NON-STRESS (10/26/2024 8:15 AM EDT) Anatomical Region Laterality Modality Other 10/26/2024 8:15 AM EDT Narrative 10/26/2024 8:17 [place] [address] Ultrasound Report Signed Patient: GEORGIE POND MR#: [id number] : 2000 Acct:[id number] Age/Sex: 24 / F ADM Date: Loc: [facility] 251-[address]: Zhane Bella D.O. Ordering Physician: Zhane Bella D.O. Date of Service: 10/24/24 Procedure(s): US OB BPP w non-stress Accession Number(s): [id number] cc: Zhane Bella D.O.; Physician,Non-Staff Adriana The [place] [phone] Patient Name: GEORGIE POND MRN: [facility]:[id number] date: 2000 Sex: F Assigned Patient Location: [facility] Current Patient Location: Accession/Order Number: [id number] Exam Date: 10/26/2024 07:43 Report Date: 10/26/2024 08:15 At the request of: ZHANE BELLA DO Procedure: US OB BPP w non-stress CLINICAL INFORMATION: 10/11 for breathing yesterday BIOPHYSICAL PROFILE: COMPARISON: 10/23/2024 There is a single live intrauterine gestation in cephalic presentation. The reported gestational age is 34 weeks 6 days. The heart rate is 131 bpm. FINDINGS: TONE: 1 or more episodes of activity extension and flexion of extremity or opening and closing of the hand [Y] 2/2 GROSS BODY MOVEMENTS: 3 or more discrete body or limb movements [Y] 2/2 BREATHING MOVEMENTS: 1 or more episodes of breathing lasting at least 30 seconds [Y] 2/2 MELLISA: A single deepest vertical pocket of amniotic fluid greater than 2 cm [Y] 2/2 MELLISA: 18.1 cm. This is in upper normal range. Total score: 12/11 US/US OB BPP w non-stress IMPRESSION: NORMAL BIOPHYSICAL PROFILE Impression dictated by: Helena De Souza M.D. 10/26/2024 8:15 AM Dictation Location: [place] [address] Electronically authenticated by: [id number] Y Date: 10/26/2024 08:15 Dictated By: Helena De Souza M.D. Signed By: 10/26/24816 DD/ 4 TD/TT: Material Handler: Procedure Note Radiology, Radiologist, MD - 10/26/2024 [place] [address] Ultrasound Report Signed Patient: GEORGIE POND TMR#: [id number] : 2000Acct:[id number] Age/Sex: Date: Loc: [facility] 251-[address]: Zhane Bella D.O. Ordering Physician: Zhane Bella D.O. Date of Service: 10/24/24 Procedure(s): US OB BPP w non-stress Accession Number(s): [id number] cc: Zhane Bella D.O.; Physician,Non-Staff Adriana The [place] [phone] Patient Name: GEORGIE POND MRN: [id number] date: 2000 Sex: F Assigned Patient Location: [facility] Current Patient Location: Accession/Order Number: [id number] Exam Date: 10/26/2024 07:43 Report Date: 10/26/2024 08:15 At the request of: ZHANE BELLA DO Procedure: US OB BPP w non-stress CLINICAL INFORMATION: 10/11 for breathing yesterday BIOPHYSICAL PROFILE: COMPARISON: 10/23/2024 There is a single live intrauterine gestation in cephalic presentation.The reported gestational age is 34 weeks 6 days. The heart rate is 131bpm. FINDINGS: TONE: 1 or more episodes of activity extension and flexion of extremity or opening and closing of the hand [Y] 2/2 GROSS BODY MOVEMENTS: 3 or more discrete body or limb movements [Y] 2/2 BREATHING MOVEMENTS: 1 or more episodes of breathing lastingat least 30 seconds [Y] 2/2 MELLISA: A single deepest vertical pocket of amniotic fluid greater than 2 cm [Y] 2/2 MELLISA: 18.1 cm. This is in upper normal range. Total score: 12/11 US/US OB BPP w non-stress IMPRESSION: NORMAL BIOPHYSICAL PROFILE Impression dictated by: Helena De Souza M.D. 10/26/2024 8:15 AM Dictation Location: [place] [address] Electronically authenticated by: [id number] Y Date: 508:15 Dictated By: Helena De Souza M.D. Signed By:10/26/2417 DD/ 4 TD/TT: Material Handler: us Zhane Monahano DO [facility] Final Result documented in this encounter Visit Diagnoses Not on filedocumented in this encounter
--- OUTSIDE RECORDS SUMMARY | 2024-10-27 11:55 | XMS_ITS | Encounter Summary ---
Author Organization [facility] Address [address] [place] [address] Care Team Providers Care Centrifugal Chiller Technician Name Role Phone Unavailable Primary Care Provider Unavailabl e Encounter Details Date Type Department Care Team (Late st Contact Info) Description 12/10/2023 Abstract [facility] OB [address] [facility] [place] [address] Christie Wiley LPN Social History Tobacco [...] Description 10/28/2024 2:30 PM EDT [facility] [address] [place] [address] Osmany Bella DO [facility] [place], [place] [address] documented as of this encounter Visit Diagnoses Not on filedocumented in this encounter
--- OUTSIDE RECORDS SUMMARY | 2024-10-27 11:55 | XMS_ITS | Encounter Summary ---
Author Organization [facility] Address [address] [place] [address] Care Team Providers Care Dispatch Specialist Name Role Phone Unavailable Primary Care Provider Unavailabl e Encounter Details Date Type Department Care Team (Late st Contact Info) Description 10/23/2024 Clinisync Result Encounter [facility] External Department Unsolicited Zhane Bella, DO [address] [place] [address] Social History Tobacco Use Types Packs/Day Years [...] PM EDT Routine [facility] [address] [facility] [place] [phone] Zhane Bella, [facility] [address] documented as of this encounter Procedures Procedure Name Priority Date/Time Associated Diagnosis Comments US OB CERVICAL LENGTH 10/23/2024 4:04 PM EDT documented in this encounter Results * US OB CERVICAL LENGTH (10/23/2024 4:04 PM EDT) Anatomical Region Laterality Modality Other 10/23/2024 4:04 PM EDT Narrative 10/23/2024 4:06 [place] [address] Ultrasound Report Signed Patient: GEORGIE POND MR#: [id number] : 2000 Acct:[id number] Age/Sex: 24 / F ADM Date: 10/23/24 Loc: US Attending Dr: Mya Kaplan Ordering Physician: Zhane Bella D.O. Date of Service: 10/23/24 Procedure(s): US OB cervical length Accession Number(s): [id number] cc: Zhane Bella D.O.; Physician,Non-Staff Adriana The [place] [id number] Patient Name: GEORGIE POND MRN: [id number] date: 2000 Sex: F Assigned Patient Location: US Current Patient Location: Accession/Order Number: [id number] Exam Date: 10/23/2024 16:03 Report Date: 10/23/2024 16:04 At the request of: ZHANE BELLA DO Procedure: US OB cervical length Ultrasound assessment of the uterine cervix. HISTORY: Incompetent cervix. The cervix has a length of 4.0 cm. Cervical os closed. heart beat 141 bpm. Cephalic presentation with longitudinal lie. US/US OB cervical length IMPRESSION: 4 cm cervical length. Impression dictated by: Maulik Pulido M.D. 10/23/2024 4:04 PM Dictation Location: [place] [address] Electronically authenticated by: [id number] Y Date: 10/23/2024 16:04 Dictated By: Maulik Pulido D.O. Signed By: 10/23/24 1606 DD/ 1604 TD/TT: Spanish Lecturer: Procedure Note Radiology, Radiologist, MD - 10/23/2024 [place] [address] Ultrasound Report Signed Patient: GEORGIE POND TMR#: [id number] : 2000Acct:[id number] Age/Sex: 24 / FADM Date: 10/23/24 Loc: US Attending Dr: Mya Kaplan Ordering Physician: Zhane Bella D.O. Date of Service: 10/23/24 Procedure(s): US OB cervical length Accession Number(s): [id number] cc: Zhane Bella D.O.; Physician,Non-Staff M.[place] [address] Patient Name: GEORGIE POND MRN: [id number] date: 2000 Sex: F Assigned Patient Location: US Current Patient Location: Accession/Order Number: [id number] Exam Date: 10/23/2024 16:03 Report Date: 10/23/2024 16:04 At the request of: ZHANE BELLA DO Procedure: US OB cervical length Ultrasound assessment of the uterine cervix. HISTORY: Incompetent cervix. The cervix has a length of 4.0 cm. Cervical os closed. heart noia251 bpm. Cephalic presentation with longitudinal lie. US/US OB cervical length IMPRESSION: 4 cm cervical length. Impression dictated by: Maulik Pulido M.D. 10/23/2024 4:04 PM Dictation Location: [place] [address] Electronically authenticated by: [id number] Y Date: 6:04 Dictated By: Maulik Pulido D.O. Signed By:10/23/24 1606 DD/ 1604 TD/TT: Spanish Lecturer: us Zhane Bella DO [facility] Final Result documented in this encounter Visit Diagnoses Not on filedocumented in this encounter
--- OUTSIDE RECORDS SUMMARY | 2024-10-27 11:55 | XMS_ITS | Encounter Summary ---
Author Organization [facility] Address [address] [place] [address] Care Team Providers Care Tension Worker Name Role Phone Unavailable Primary Care Provider Unavailabl e Encounter Details Date Type Department Care Team (Late st Contact Info) Description 11/22/2023 Clinisync Result Encounter [facility] External Department Unsolicited Zhane Bella, DO [address] [place] [address] Social History Tobacco Use Types Packs/Day Years [...] Routine [facility] OB [address] [place] [phone] Zhane Bella DO [address] [place] [address] documented as of this encounter Procedures Procedure Name Priority Date/Time Associated Diagnosis Comments US OB PLACENTA 11/22/2023 3:44 PM EDT AMNISURE Routine 11/22/2023 1:36 PM EDT TB[facility] URINE MICROSCOPIC ONLY Routine 11/22/2023 1:25 PM EDT [facility] UA (CLEAN/CATCH) CONVEYOR BELT OPERATOR/MICRO IF IND. Routine 11/22/2023 1:25 PM EDT documented in this encounter Results * US OB PLACENTA (11/22/2023 3:44 PM EDT) Anatomical Region Laterality Modality Other 11/22/2023 3:44 PM EDT Narrative 11/22/2023 3:47 [place] [address] Ultrasound Report Signed Patient: GEORGIE POND MR#: [id number] : 2000 Acct:[id number] Age/Sex: 23 / F ADM Date: Loc: [facility] 251-[address]: Zhane Bella D.O. Ordering Physician: Zhane Bella D.O. Date of Service: 11/22/23 Procedure(s): US OB placenta Accession Number(s): [id number] cc: Zhane Bella D.O.; Physician,Non-Staff M.D. The [place] [address] Patient Name: GEORGIE POND MRN: [id number] date: 2000 Sex: F Assigned Patient Location: [facility] Current Patient Location: [facility] Accession/Order Number: [id number] Exam Date: 11/22/2023 14:20 Report Date: 11/22/2023 [...] Signed By: 11/22/23 1547 DD/ 1544 TD/TT: Dried Yeast Supervisor: Procedure Note Radiology, Radiologist, MD - 11/22/2023 [place] [address] Ultrasound Report Signed Patient: GEORGIE POND TMR#: [id number] : 2000Acct:[id number] Age/Sex: Date: Loc: [facility] 251-[address]: Zhane Bella D.O. Ordering Physician: Zhane Bella D.O. Date of Service: 11/22/23 Procedure(s): US OB placenta Accession Number(s): [id number] cc: Zhane Bella D.O.; Physician,Non-Staff Adriana The [place] [address] Patient Name: GEORGIE POND MRN: [id number] date: 2000 Sex: F Assigned Patient Location: [facility] Current Patient Location: [facility] Accession/Order Number: [id number] Exam Date: 11/22/2023 14:20 Report Date: 11/22/2023 [...] M.D. Signed By:11/22/23 1547 DD/ 1544 TD/TT: Dried Yeast Supervisor: us Zhane Jena DO [facility] Final Result * AMNISURE (11/22/2023 1:36 PM EDT) TB AMNISURE NEGATIVE NEGATIVE [facility] 11/22/2023 1:36 PM EDT 11/22/2023 1:47 PM EDT Narrative [facility] - 11/22/2023 2:06 PM EDT Zhane Jena DO LAB BLOOD ORDERABLES Final Resul t [facility] * (ABNORMAL) [facility] URINE MICROSCOPIC ONLY (11/22/2023 1:25 PM EDT) Pathologist [facility] TB WBC >100(A) NONE SEEN #/HPF [facility] [...] [facility] * (ABNORMAL) [facility] UA (CLEAN/CATCH) CONVEYOR BELT OPERATOR/MICRO IF IND. (11/22/2023 1:25 PM EDT) [...]
--- OUTSIDE RECORDS SUMMARY | 2024-10-27 11:55 | XMS_ITS | Encounter Summary ---
Author Organization [facility] Address [address] [facility] [place] [address] Care Team Providers Care Refiner Operator Name Role Phone Unavailable Primary Care Provider Unavailabl e Encounter Details Date Type Department Care Team (Late st Contact Info) Description 07/07/2024 Abstract [facility] OB [address] [place] [address] Osmany Bella, DO [address] [place], [id number] Social History Tobacco Use Types Packs/Day Years [...] Routine [facility] OB [address] [place] [address] Osmany Bella, DO [address] [place] [address] documented as of this encounter Visit Diagnoses Not on filedocumented in this encounter
--- OUTSIDE RECORDS SUMMARY | 2024-10-27 11:55 | XMS_ITS | Encounter Summary ---
Author Organization [employer] Address [id number] [address] [place] [address] Care Team Providers Care Cargo And Container Inspector Name Role Phone No Pcp, No Pcp Primary Care Provider Unavailabl e Encounter Details Date Type Department Care Team (Late st Contact Info) Description 09/25/2024 Orders Only [facility] [address] [place] [phone] Madeline Gamb[facility] [address] [place] [phone] Bacterial vaginosis in (Primary Dx) Social History [...] often do you attend chur ch or hinduism services? Never 03/26/2021 Do you belong to any clubs o r organizations such as sabianist groups, unions, fraternal or athletic groups, or [...] Answer Date Recorded Total Score 4 08/29/2023 [facility] - [...] things needed for daily living? No 09/22/2024 Sheldon Depression Scale Answer Date Recorded Sheldon Depression Scale Total 13 09/12/2023 The thought [...] documented as of this encounter Care Teams Cargo And Container Inspector Relationship Specialty Start Date End Date No Pcp, [place] [address] PCP - General Family Medicine 09/01/24 documented as of this encounter
--- OUTSIDE RECORDS SUMMARY | 2024-10-27 11:55 | XMS_ITS | Encounter Summary ---
Author Organization [facility] Address [address] [place] [address] Care Team Providers Care Account Planner Name Role Phone Unavailable Primary Care Provider Unavailabl e Reason for Visit * Reason Comments Med Refill Encounter Details Date Type Department Care Team (Late Contact Info) Description 12/15/2023 Refill [facility] OB [address] [facility] [address] [address] Osmany Bella DO [address] [facility] [address] [place], [facility]11 Flank pain Social History Tobacco Use Types [...] PM EDT Routine [facility] OB [address] [facility] [phone] Osmany Bella, DO [address] [facility] [place] [address] documented as of this encounter Visit Diagnoses Diagnosis Flank pain Abdominal pain, unspecified site documented in this encounter
--- OUTSIDE RECORDS SUMMARY | 2024-10-27 11:55 | XMS_ITS | Encounter Summary ---
Author Organization [facility] Address [address] [facility] [place] [address] Care Team Providers Care Database Management Specialist Name Role Phone Unavailable Primary Care Provider Unavailabl e Encounter Details Date Type Department Care Team (Late st Contact Info) Description 08/05/2023 Abstract [facility] OB [address] [facility] [place] [phone] Kimi Olsen LPN [address] [facility] Siddhartha GONZALEZ [facility]11 Social History Tobacco Use Types Packs/Day [...] Description 10/28/2024 2:30 PM EDT Routine [facility] OB [address] [address] [address] Osmany Bella DO [address] [facility] [address] [place], [place] [id number] documented as of this encounter Visit Diagnoses Not on filedocumented in this encounter
--- OUTSIDE RECORDS SUMMARY | 2024-10-27 11:55 | XMS_ITS | Encounter Summary ---
Author Organization [facility] Address [address] [place] [address] Care Team Providers Care Thermoplastic Technician Name Role Phone Unavailable Primary Care Provider Unavailabl e Encounter Details Date Type Department Care Team (Late Contact Info) Description 10/23/2024 Clinisync Result Encounter [facility] External Department Unsolicited Mya Jacob PA [address] [place], [facility]11 Social History Tobacco Use Types Packs/Day Years [...] BCP OB [address] [place] [id number] sOmany Bella, DO [address] [place] [address] documented as of this encounter Procedures Procedure Name Priority Date/Time Associated Diagnosis Comments US OB BPP W NON-STRESS 10/23/2024 3:21 PM EDT documented in this encounter Results * US OB BPP W NON-STRESS (10/23/2024 3:21 PM EDT) Anatomical Region Laterality Modality Other 10/23/2024 3:21 PM EDT Narrative 10/23/2024 3:24 [place] [address] Ultrasound Report Signed Patient: GEORGIE POND MR#: [id number] : 2000 Acct:[id number] Age/Sex: 24 / F ADM Date: 10/23/24 Loc: [place] [address]: Mya Jacob Ordering Physician: Mya Jacob Date of Service: 10/23/24 Procedure(s): US OB BPP w non-stress Accession Number(s): [id number] cc: Mya Jacob; Physician,Non-Staff MJacquelyn [place] [id number] Patient Name: GEORGIE POND MRN: [id number] date: 2000 Sex: F Assigned Patient Location: [facility] Current Patient Location: [facility] Accession/Order Number: [id number] Exam Date: 10/23/2024 15:20 Report Date: 10/23/2024 15:21 At the request of: MYA JACOB Procedure: US OB BPP w non-stress Biophysical profile. Reason for exam: Incompetent cervix. COMPARISON: None. TECHNIQUE: Transabdominal imaging of the gravid uterus was obtained. FINDINGS: Wheel Truer reports a BPP of 6 out of 8 with 0 out of 2 for breathing movements. MELLISA measures 20.9 cm. heart rate 145 bpm. US/US OB BPP w non-stress Impression: BPP 6 out of 8. Correlation with NST is recommended. Impression dictated by: Rufus Garcia Jr., D.O. 10/23/2024 3:21 PM Dictation Location: [place] [address] Electronically authenticated by: [id number] Y Date: 10/23/2024 15:21 Dictated By: Rufus Garcia M.D. Signed By: 10/23/24 1524 DD/ 1521 TD/TT: Industrial Electrical Technician: Procedure Note Radiology, Radiologist, - 10/23/[address] [address] Ultrasound Report Signed Patient: GEORGIE POND TMR#: [id number] : 2000Acct:[id number] Age/Sex: 24 / FADM Date: 10/23/24 Loc: [facility] 250-[address]: Mya Jacob Ordering Physician: Mya Jacob Date of Service: 10/23/24 Procedure(s): US OB BPP w non-stress Accession Number(s): [id number] cc: Mya Jacob; Physician,Non-Staff M.Lee The [place] [id number] Patient Name: GEORGIE POND MRN: [id number] date: 2000 Sex: F Assigned Patient Location: [facility] Current Patient Location: [facility] Accession/Order Number: [id number] Exam Date: 10/23/2024 15:20 Report Date: 10/23/2024 15:21 At the request of: MYA JACOB Procedure: US OB BPP w non-stress Biophysical profile. Reason for exam: Incompetent cervix. COMPARISON: None. TECHNIQUE: Transabdominal imaging of the gravid uterus was obtained. FINDINGS: Wheel Truer reports a BPP of 6 out of 8 with 0 out of 2 forfetal breathing movements. MELLISA measures 20.9 cm. heart rate 145 bpm. US/US OB BPP w non-stress Impression: BPP 6 out of 8. Correlation with NST is recommended. Impression dictated by: Rufus Garcia Jr., D.O. 10/23/2024 3:21 PM Dictation Location: [place] [address] Electronically authenticated by: [id number] Y Date: 5:21 Dictated By: Rufus Garcia M.D. Signed By:10/23/24 1524 DD/ 1521 TD/TT: Industrial Electrical Technician: Mya RIOS [facility] Final Result documented in this encounter Visit Diagnoses Not on filedocumented in this encounter
--- OUTSIDE RECORDS SUMMARY | 2024-10-27 11:55 | XMS_ITS | Encounter Summary ---
Author Organization [facility] Address [address] [facility] [address] Care Team Providers Care Acupuncture Physician Name Role Phone Unavailable Primary Care Provider Unavailabl e Encounter Details Date Type Department Care Team (Late Contact Info) Description 12/11/2023 Abstract [facility] OB [address] [place] [address] Osmany Bella, [address] [place], [facility]11 Social History Tobacco Use Types Packs/Day Years [...] Description 10/28/2024 2:30 PM EDT Routine [facility] OB [address] [place] [address] Osmany Bella, DO [facility] [place], [place] [id number] documented as of this encounter Visit Diagnoses Not on filedocumented in this encounter
--- OUTSIDE RECORDS SUMMARY | 2024-10-27 11:55 | XMS_ITS | Encounter Summary ---
Author Organization [facility] Address [address] [place] [address] Care Team Providers Care Groundskeeper Name Role Phone Unavailable Primary Care Provider Unavailabl e Encounter Details Date Type Department Care Team (Late st Contact Info) Description 10/24/2024 Clinisync Result Encounter [facility] External Department Unsolicited Osmany Bella, DO [address] [place] [address] Social History Tobacco Use Types Packs/Day Years [...] PM EDT Routine [facility] BCP OB [address] [place] [phone] Osmany Bella, DO [address] [place] [address] documented as of this encounter Procedures Procedure Name Priority Date/Time Associated Diagnosis Comments [facility] CMP (CMP) (FOR REMOTE [facility] USE) Routine 10/24/2024 2:03 AM EDT ALL CBC WITH AUTO DIFF Routine 10/24/2024 2:03 AM EDT [facility] URINE MICROSCOPIC ONLY Routine 10/24/2024 12:30 AM EDT TB[facility] UA (CLEAN/CATCH) VERTICAL CONTOUR BAND SAW OPERATOR/MICRO IF IND. Routine 10/24/2024 12:30 AM EDT documented in this encounter Results * (ABNORMAL) [facility] CMP (CMP) (FOR REMOTE [facility] USE) (10/24/2024 2:03 AM EDT) SODIUM 138 136 - 145 mmol/L TBH POTASSIUM 3.6 3.5 - 5.1 mmol/L TBH CHLORIDE 104 98 - 107 mmol/L TBH CARBON DIOXIDE 24.0 21.0 - 32.0 mmol/L TBH ANION GAP 13.6 TBH GLUCOSE 87 74 - 106 mg/dL TBH BLOOD UREA NITROGEN 5.0(L) 7.0 - 18.0 mg/dL TBH CREATININE 0.40(L) 0.55 - 1.02 mg/dL TBH TBH EGFR-AF PALAUAN >60 >=60 mL/min/1. 73m 2 TBH TBH EGFR-NON AF PALAUAN >60 >=60 mL/min/1. 73m 2 TBH BUN CREATININE RATIO 12.5 TBH CALCIUM 8.2(L) 8.5 - 10.1 mg/dL TBH BILIRUBIN TOTAL 0.4 0.2 - 1.0 mg/dL TBH ASPARTATE AMINO TRANSFERASE 17 15 - 37 U/L TBH ALANINE AMINOTRANSFERASE 13(L) 14 - 59 U/L TBH ALKALINE PHOSPHATASE 207(H) 46 - 116 U/L TBH TOTAL PROTEIN 5.8(L) 6.4 - 8.2 g/dL TBH ALBUMIN LEVEL 1.9(L) 3.4 - 5.0 g/dL TBH GLOBULIN 3.9 g/dL TBH ALBUMIN GLOBULIN RATIO 0.5 TBH 10/24/2024 2:03 AM EDT 10/24/2024 2:07 AM EDT Narrative [facility] - 10/24/2024 2:24 AM EDT us Osmany Jena DO [facility] Final Result [facility] * (ABNORMAL) ALL CBC WITH AUTO DIFF (10/24/2024 2:03 AM EDT) [facility] TB WBC 8.7 4.0 - 11.0 10 3/uL TBH TBH RBC 3.52(L) 4.20 - 5.40 10 6/uL TBH TBH HGB 9.3(L) 12.0 - 16.0 g/dL TBH TBH HCT 28.4(L) 36.0 - 48.0 % TBH TBH MCV 80.7(L) 81.0 - 99.0 fL TBH TBH MCH 26.4(L) 26.7 - 34.0 pg TBH TBH MCHC 32.7 29.9 - 35.2 g/dL TBH TBH RDW 14.5 11.0 - 15.0 % TBH TBH PLT 213 150 - 450 10 3/uL TBH TBH MPV 10.2 9.5 - 13.5 fL TBH NEUTROPHILS PERCENT AUTO 71.0 43.0 - 75.0 % TBH LYMPHOCYTES PERCENT AUTO 20.4(L) 20.5 - 60.0 % TBH MONOCYTES PERCENT AUTO 7.4 1.7 - 12.0 % TBH TBH EO % 0.6(L) 0.9 - 7.0 % TBH BASOPHILS PERCENT AUTO 0.1(L) 0.2 - 2.0 % TBH IMMATURE GRANULOCYTES PCT AUTO 0.5 0.0 - 0.5 % TBH NEUTROPHILS ABSOLUTE AUTO 6.2 1.4 - 6.5 10 3/uL TBH LYMPHOCYTES ABSOLUTE AUTO 1.8 1.2 - 3.8 10 3/uL TBH MONOCYTES ABSOLUTE AUTO 0.6 0.3 - 0.8 10 3/uL TBH TBH EO # 0.1 0.0 - 0.7 10 3/uL TBH BASOPHILS ABSOLUTE AUTO 0.0 0.0 - 0.1 10 3/uL TBH IMMATURE GRANULOCYTES ABS AUTO 0.04(H) 0.00 - 0.03 10 3/uL TBH 10/24/2024 2:03 AM EDT 10/24/2024 2:07 AM EDT Narrative [facility] - 10/24/2024 2:10 AM EDT Osmany Jena DO [facility] Final Result [facility] * (ABNORMAL) TBH URINE MICROSCOPIC ONLY (10/24/2024 12:30 AM EDT) TB WBC 2-5(A) NONE SEEN #/HPF TBH TBH RBC 2-5(A) 0 - 2 #/HPF TBH BACTERIA URINE MODERATE(A ) NONE SEEN #/HPF TBH MUCUS URINE NONE SEEN NONE SEEN TBH SQUAMOUS EPITHELIAL CELL URINE FEW(A) NONE/RARE #/LPF TBH CRYSTALS SEEN? None Seen None Seen #/HPF TBH CAST SEEN? NONE SEEN NONE SEEN #/LPF TBH URINE CULTURE INDICATED YES-LC TBH 10/24/2024 12:3 0 AM EDT 10/24/2024 1:19 AM EDT Narrative [facility] - 10/24/2024 1:25 AM EDT Osmany Jena DO [facility] Final Result Performing Organization Address [facility] Co de Phone Number [facility] * (ABNORMAL) TBH UA (CLEAN/CATCH) VERTICAL CONTOUR BAND SAW OPERATOR/MICRO IF IND. (10/24/2024 12:30 AM EDT) COLOR URINE LT. YELLOW YELLOW TBH CLARITY URINE CLEAR CLEAR TBH SPECIFIC GRAVITY URINE 1.010 1.005 - 1.025 TBH PH URINE 7.5 5.0 - 9.0 TBH PROTEIN URINE NEGATIVE NEG/TRACE mg/dL TBH GLUCOSE URINE UA NEGATIVE NEGATIVE mg/dL TBH BILIRUBIN URINE NEGATIVE NEGATIVE TBH KETONES URINE NEGATIVE NEGATIVE mg/dL TBH BLOOD URINE TRACE-I NEGATIVE TBH NITRITE URINE NEGATIVE NEGATIVE TBH UROBILINOGEN URINE 2.0(A) 0.2 - 1.0 EU/dL TBH LEUKOCYTE ESTERASE URINE SMALL(A) NEGATIVE TBH URINE MICROSCOPIC INDICATED YES TBH 10/24/2024 12:3 0 AM EDT 10/24/2024 1:19 AM EDT Narrative [facility] - 10/24/2024 1:25 AM EDT us Osmany Monahano DO [facility] Final Result Performing Organization Address City/State/[facility] Co de Phone Number [facility] documented in this encounter Visit Diagnoses Not on filedocumented in this encounter
--- OUTSIDE RECORDS SUMMARY | 2024-10-27 11:55 | XMS_ITS | Encounter Summary ---
Author Organization [facility] Address [address] [facility] [place] [address] Care Team Providers Care Ophthalmic Surgeon Name Role Phone Unavailable Primary Care Provider Unavailabl e Encounter Details Date Type Department Care Team (Late Contact Info) Description 10/23/2024 Clinisync Result Encounter [facility] External Department Unsolicited Mya Jacob PA [address] [place], [place] [address] Social History Tobacco Use Types Packs/Day Years [...] PM EDT Routine [facility] BCP OB [address] [place] [phone] Osmany Bella, DO [address] [place], [place] [address] documented as of this encounter Procedures Procedure Name Priority Date/Time Associated Diagnosis Comments US OB GROWTH 10/23/2024 3:29 PM EDT documented in this encounter Results * US OB GROWTH (10/23/2024 3:29 PM EDT) Anatomical Region Laterality Modality Other 10/23/2024 3:29 PM EDT Narrative 10/23/2024 3:31 PM EDT The [address] [address] Ultrasound Report Signed Patient: GEORGIE POND MR#: [id number] : 2000 Acct:[id number] Age/Sex: 24 / F ADM Date: 10/23/24 Loc: US Attending Dr: Mya Jacob Ordering Physician: Mya Jacob Date of Service: 10/23/24 Procedure(s): US OB growth Accession Number(s): [id number] cc: Mya Jacob; Physician,Non-Staff M.Lee The [address] [address] Patient Name: GEORGIE POND MRN: [id number] date: 2000 Sex: F Assigned Patient Location: [facility] Current Patient Location: Accession/Order Number: [id number] Exam Date: 10/23/2024 15:27 Report Date: 10/23/2024 15:29 At the request of: MYA JACOB Procedure: US OB growth Growth ultrasound. Reason [...] Jr., D.O. 10/23/2024 3:29 PM Dictation Location: [place] [address] Electronically authenticated by: [id number] Y Date: 10/23/2024 15:29 Dictated By: Rufus Garcia M.D. Signed By: 10/23/24 1531 DD/ 1529 TD/TT: Information Security Associate: Procedure Note Radiology, Radiologist, - 10/23/[address] [address] Ultrasound Report Signed Patient: GEORGIE POND TMR#: [id number] : 2000Acct:[id number] Age/Sex: 24 / FADM Date: 10/23/24 Loc: US Attending Dr: Mya Jacob Ordering Physician: Mya Jacob Date of Service: 10/23/24 Procedure(s): US OB growth Accession Number(s): [id number] cc: Mya Jacob; Physician,Non-Staff M.DCynthia [address] [address] Patient Name: GEORGIE POND MRN: [facility]:[id number] date: 2000 Sex: F Assigned Patient Location: [facility] Current Patient Location: Accession/Order Number: [id number] Exam Date: 10/23/2024 15:27 Report Date: 10/23/2024 15:29 At the request of: MYA JACOB Procedure: US OB growth Growth ultrasound. Reason for exam: Incompetent cervix. COMPARISON: Ultrasounds dated 09/02/2024. TECHNIQUE: Transabdominal imaging of the gravid uterus was obtained. FINDINGS: Single live intrauterine measuring 36 weeks 0 days by anatomic measurements. Appropriate growth by dating. Estimated fetalweight is 2778 g which is the 60th percentile. MELLISA measures 20.85 cm. Fetalheart rate 145 bpm. position is cephalic at time of scanning. US/US OB growth IMPRESSION: Appropriate growth. Impression dictated by: Rufus Garcia Jr., D.O. 10/23/2024 3:29 PM Dictation Location: [place] [address] Electronically authenticated by: [id number] Y Date: 5:29 Dictated By: Rufus Garcia M.D. Signed By:10/23/24 1531 DD/ 1529 TD/TT: Information Security Associate: us Mya RIOS [facility] Final Result documented in this encounter Visit Diagnoses Not on filedocumented in this encounter
--- OUTSIDE RECORDS SUMMARY | 2024-10-27 11:55 | XMS_ITS | Encounter Summary ---
Author Organization [facility] tem Address [id number] [address] [place] [address] Care Team Providers Care Educational Psychology Professor Name Role Phone No Pcp, No Pcp Primary Care Provider Unavailabl e Encounter Details Date Type Department Care Team (Late st Contact Info) Description 05/10/2023 Orders Only [facility] - Labor [address] [facility] [place] [id number] Marilu Mcneal, BREAKING MACHINE OPERATOR-CN [address] [place] [address] Chronic migraine without aura without status migrainosus, [...] How often do you attend [facility] or church services? Never 03/26/2021 Do you belong to any clubs o r organizations such as islam groups, unions, fraternal or athletic groups, or [...] Date Recorded Total Score 15 08/03/2021 [facility] - [...] things needed for daily living? No 03/26/2021 Elliott Depression Scale Answer Date Recorded Elliott Depression Scale Total 7 04/05/2023 The thought [...] Recorded Do you need help finding a [facility] career center and/or a training program? [...] documented as of this encounter Care Teams Educational Psychology Professor Relationship Specialty Start Date End Date No [place] [address] PCP - General Family Medicine 09/01/24 documented as of this encounter
--- OUTSIDE RECORDS SUMMARY | 2024-10-27 11:55 | XMS_ITS | Clinical Summary ---
Author Organization Local [facility] Address [id number] [address] [place] [address] Care Team Providers Care Book Canvasser Name Role Phone No Pcp, No Pcp Primary Care Provider Unavailabl e Allergies No known active allergies Medications * This document contains information received from the source organization and may not represent a complete record from that organization. [id number] c acid () 29 mg iron- 1 mg tablet,chewable Chew 1 tablet and swallow in the morning for 14 days. 14 tablet 09/24/2024 10/09/19 25 metroNIDAZOLE (FLAGYL) 500 mg tabletIndicatio ns:Bacterial vaginosis in Take 1 tablet (500 mg total) by mouth in the morning and at bedtime for 7 days. 14 tablet 09/25/2024 10/03/19 25 Active Problems Problem Noted Date [...] weeks. Marijuana use during 08/29/2023 Overview (08/29/2023): [id number] THC positive and patient educated on cessation. Hx of delivery, currently 08/27 Overview (08/29/2023): Twins delivered 02-03-2023 at 25w2d 07/28/23 cervical length 4 cm Acute cystitis 08/28/2023 Overview (08/28/2023): 08-22-23 treated in [facility] with Macrobid Intractable chronic migraine without aura 2023 Overview (08/28/2023): 05/10/2023 Neuro consult placed Magnesium Citrate ordered 400mg daily Episode of recurrent major depressive disorder 0 07/06/2021 Overview (08/28/2023): Has appointment at [facility] on 09-18-23 Slow transit constipation 03/12/2019 Assessment & Plan (08/28/2023 3:15 PM EDT): Hydration, fibers Colace HS daily Estimated Date of Delivery Comme nts Yes 11/24/2024 Based on Patient Reported Resolved Problems Problem Noted Date Diagnosed Date Resolved Date LGA (large for gestational a ge) fetus affecting management of mother 08/29/2023 4 Other chest pain 08/29/2023 09/12/2023 Nexplanon in [...] Only [facility] [address] [place] [id number] Madeline Gamboa APRN-SHANIA Bacterial vaginosis in (Primary Dx) 09/22/2024 Travel 09/21/2024 10:18 AM EDT - 09/21/2024 11:59 PM EDT Hospital Encounter [facility] US Imaging [address] [place] [address] Discharge Disposition: Home 09/18/2024 10:04 PM EDT - 09/22/2024 3:00 AM EDT Hospital Encounter [facility] - GEN 3 Antepartum [address] [place] [address] Bala Randle MD Discharge Disposition: [facility] 09/18/2024 4:18 PM EDT - 09/18/2024 10:03 PM EDT Emergency [facility] - Emergency [address] [place] [address] Saroj Carreon, Suicide attempt ([facility]) (Primary Dx) Discharge Disposition: [facility] 09/18/2024 Travel 09/01/2024 Travel 08/03/2024 6:20 AM EDT - 08/03/2024 9:22 AM EDT Hospital Encounter [facility] - LDRP [address] [place] [address] Ynes Gale, TRACTOR MECHANIC-CN Saul Fan MD Discharge Disposition: Home 08/03/2024 Orders Only [facility] [address] [place] [address] Violeta De Leon, TRACTOR MECHANIC-CNM Urinary tract infection in mother during , antepartum (Primary Dx) 08/03/2024 Travel 07/27/2024 2:58 PM EDT - 07/27/2024 11:59 PM EDT Hospital Encounter [facility] - Lab [address] [place] [address] Encounter for supervision of normal , unspecified, [...] Maternal Grandmother Not sure Alcohol abuse Mother Isiscici herman Breast cancer Mother Isis herman Depression Mother Isis herman Diabetes Mother Isis herman Drug abuse Mother Isis herman Hypertension Mother Isis herman Ovarian cancer Mother Isis batsheva Suicide Attempts Mother Isis batsheva Epilepsy Sister Colon cancer Neg Hx Uterine [...] often do you attend chur ch or orthodox services? Never 03/26/2021 Do you belong to any clubs o r organizations such as tenriism groups, unions, fraternal or athletic groups, or [...] Answer Date Recorded Total Score 4 08/29/2023 [facility] of Occupat [...] things needed for daily living? No 09/22/2024 Mclean Depression Scale Answer Date Recorded Mclean Depression Scale Total 13 09/12/2023 The thought [...] Recorded Do you need help finding a [employer] center and/or a training program? No 03/26/2021 [...] 10/07/2020, 09/09/2020 Depression Screening 09/11/2024 09/12/2023, 08/29/19 Influenza Vaccine 01/04/2025 03/12/2019, , 02/25/2006 Tobacco [...] COLOR Yellow Yellow, Colorless 09/24/2024 1:13 AM [facility] TURBIDITY Clear Clear 09/24/2024 1:13 AM [facility] SPECIFIC GRAVITY 1.025 1.003 - 1.035 09/24/2024 1:13 AM [facility] NITRITE Negative Negative 09/24/2024 1:13 AM [facility] PH,URINE 6.0 5.0 - 8.5 09/24/2024 1:13 AM [facility] LEUKOCYTE ESTERASE Negative Negative 09/24/2024 1:13 AM [facility] PROTEIN Trace(A) Negative 09/24/2024 1:13 AM [facility] KETONES (URINE) Trace(A) Negative 1:13 AM [facility] UROBILINOGEN 4.0 eu/dL(A) 0.2 eu/dL, 1.0 eu/dL 09/24/2024 1:13 AM [facility] BILIRUBIN (URINE) Negative Negative 09/24/2024 1:13 AM [facility] BLOOD/HGB Negative Negative 09/24/2024 1:13 AM [facility] MUCOUS Present(A) None 09/24/2024 1:13 AM [facility] R.B.CELLS 0 0 - 5 09/24/2024 1:13 AM [facility] SQUAMOUS EPITHELIUM 3 0 - 5 09/24/2024 1:13 AM [facility] W.B.CELLS 2 0 - 5 09/24/2024 1:13 AM [facility] GLUCOSE (URINE) Negative Negative, 250 mg/dL, >1000 mg/dL 09/24/2024 1:13 AM [facility] Urine Urine specimen collection, clean catch / Unknown 09/23/2024 11:40 PM EDT 09/23/2024 11:51 PM EDT Madeline Gamboa TRACTOR MECHANIC-CNM URINE ORDERABLES Final Resu lt [facility] [address] [place] [address], * Chlamydia/GC by PCR Nighat Swab (09/23/2024 11:17 PM EDT) CHLAMYDIA DNA(PCR) Negative Negative 09/25/2024 6:28 AM EDT [facility] Comment:Chlamydia trachomati s not detected by nucleic acid amplification. This does not exclude the possibility of infection because results are dependent on adequate specimen collection. GONORRHOEAE DNA(PCR) Negative Negative 09/25/2024 6:28 AM EDT [facility] Comment:Neisseria gonorrhoea e not detected by nucleic acid amplification. This does not exclude the possibility of infection because results are dependent on adequate specimen collection. Swab Vaginal structure / Unknown 09/23/2024 11:17 PM EDT 09/23/2024 11:27 PM EDT us Madeline Gamboa APRN-CNM MICROBIOLOGY - GENERAL ORDE RABLES Final Result [facility] [address] [place] [address], * (ABNORMAL) Vaginitis Panel PCR (09/23/2024 11:17 PM EDT) BACT. VAGINOSIS DNA Detected(A) Not Detected 09/24/2024 9:29 PM EDT [facility] Comment:Qualitative results are reported based on detection and quantitation of targeted organism markers which include: Lactobacillus spp. (L. crispatus and L. jensenii), Gardnerella vaginalis, Atopobium vaginae, Bacterial Vaginosis Associated Bacteria-2 (BVAB-2) and Megasphaera-1. SHANEKA SPECIES DNA Not Detected Not Detected 09/24/2024 9:29 PM EDT [facility] Comment:Shaneka species not detected include: C. albicans, C. tropicalis, C. parapsilosis or C. dubliniensis. SHANEKA KRUSEI DNA Not Detected Not Detected 09/24/2024 9:29 PM EDT [facility] Comment:No Shaneka krusei de tected. SHANEKA GLABRATA DNA Not Detected Not Detected 09/24/2024 9:29 PM EDT [facility] Comment:No Shaneka glabrata detected. TRICHOMONAS VAG DNA Not Detected Not Detected 09/24/2024 9:29 PM EDT [facility] Comment: No Trichomonas vaginalis detected. BD MAX Vaginal Panel has not been evaluated for patients under 18 years old. Results for these patients should be reviewed and assessed in accordance with clinical presentation to determine patient diagnosis. Swab Vaginal structure / Unknown 09/23/2024 11:17 PM EDT 09/23/2024 11:26 PM EDT us Madeline Gamboa APRN-CNM MICROBIOLOGY - GENERAL ORDE RABLES Final Result [facility] [address] [place] [address], * Urine Culture Urine, Clean Catch Midstream (09/23/2024 4:56 PM EDT) Only the most recent of2 resultswithin the time period is included. CULTURE RESULTS 10-50,000 ORGANISMS/mL NORMAL UROGENITAL ALEX 09/24/2024 3:41 PM EDT [facility] Urine Urine specimen collection, clean catch / Unknown 09/23/2024 4:56 PM EDT 09/23/2024 5:02 PM EDT Narrative [facility] - 09/24/2024 3:41 PM EDT Urine received without preservative - delays in transport may affect results. Interpret with caution and clinical correlation is recommended. Lucius Townsend MD MICROBIOLOGY - GENERAL ORDERABL ES Final Result Performing Organization Address City/[facility]/ZIP Co de Phone Number [facility] [address] [place] [address], * [facility] COMPREHENSIVE ANATOMIC SURVEY (09/21/2024 11:04 AM EDT) Anatomical Region Laterality Modality OB-OIL PROGRAM COMPLIANCE SPECIALIST Ultrasound 09/21/2024 10:3 2 AM EDT Narrative 09/21/2024 11:43 AM EDT NAME: SALTY SANCHEZ : 2000 SEX: F Accession Number: [id number] ORDERING PHYSICIAN: SONJA COLEMAN REFERRING PHYSICIAN: ZHANE BELLA Coding ----- --------- Procedures [id number]: Ultrasound, uterus, real time with image documentation, and maternal evaluation plus detailed anatomic examination, transabdominal approach;single or first gestation STAT ----- --------- Patient Location: Inpatient Indication ----- --------- Screening for Anatomic Survey, Previous , Obesity in , Supervision of high risk . History ----- --------- OB History 5. Para 2 [id number] Maternal Assessment ----- --------- Physical Exam Height [...] EFW (oz) 9 oz EFW by: Hadlock ([id number]) Extended Tibia 51.5 mm 30w 5d 47% Rand General Counsel 4.5 mm CM 4.8 mm 3% Nicolaides [...] Heart / Thorax RVOT view. LVOT view. 3-[id number]-[id number] view. Aortic arch view. Ductal arch view. [...] SANCHEZ : 2000 SEX: F Accession Number: [id number] ORDERING PHYSICIAN: SONJA COLEMAN REFERRING PHYSICIAN: ZHANE BELLA Coding ----- --------- Procedures [id number]: Ultrasound, uterus, real time with imagedocumentation, and maternal evaluation plus detailed anatomic examination, transabdominalapproach;single or first gestation STAT ----- --------- Patient Location: Inpatient Indication ----- --------- Screening for Anatomic Survey, Previous , Obesity in ,Supervision of high risk . History ----- --------- OB History 5. Para 2 [id number] Maternal Assessment ----- --------- Physical Exam Height [...] EFW (oz) 9 oz EFW by: Hadlock ([id number]) Extended Tibia 51.5 mm 30w 5d 47% Rand General Counsel 4.5 mm CM 4.8 mm 3% Nicolaides [...] Heart / Thorax RVOT view. LVOT view. 6-[id number] view. Aortic archview. Ductal arch view. Great [...] follow up with thepatient as necessary. us Sonaj Coleman DO [facility] [place] ORDERABLES Final Res ult * (ABNORMAL) Valproic acid, depakane (09/19/2024 9:04 PM EDT) Only the most recent of3 resultswithin the time period is included. VALPROIC ACID 31(L) 50 - 100 ug/mL 09/19/2024 9:47 PM EDT [facility] Blood Venous blood / Unknown 09/19/2024 9:04 PM EDT 09/19/2024 9:04 PM EDT us Marie Lopez MD LAB BLOOD ORDERABLES Final Resul t [facility] [address] [place] [address], [place] [phone] * Ammonia (09/19/2024 9:04 PM EDT) Only the most recent of3 resultswithin the time period is included. AMMONIA 32 18 - 72 umol/L 09/19/2024 10:34 PM EDT [facility] Blood Venous blood / Unknown 09/19/2024 9:04 PM EDT 09/19/2024 9:04 PM EDT Marie Lopez MD LAB BLOOD ORDERABLES Final Resul t Performing Organization Address City/[facility]/ZIP Co de Phone Number [facility] [address] [place] [address], * Syphilis Total (Unknown Syphilis Status) (09/19/2024 2:49 AM EDT) Only the most recent of2 resultswithin the time period is included. SYPHILIS TOTAL <0.2 <=0.8 AI 09/21/2024 3:30 PM EDT [facility] Blood Venous blood / Unknown 09/19/2024 2:49 AM EDT 09/19/2024 2:49 AM EDT Narrative [facility] - 09/21/2024 3:30 PM EDT NON REACTIVE No serologic evidence of infection to Treponema pallidum. Repeat testing may be considered in patients with suspected acute or primary syphilis in 2 to 4 weeks. Lexus Byrd MD LAB BLOOD ORDERABLES Final Re sult Performing Organization Address City/[facility]/ZIP Co de Phone Number [facility] [address] [place] [address], * (ABNORMAL) CBC auto differential (09/19/2024 2:49 AM EDT) Only the most recent of4 resultswithin the time period is included. WBC 9.2 4 - 11 x10E9/L 09/19/2024 3:48 AM EDT [facility] RBC Count 3.80 3.8 - 5.2 X10E12/L 09/19/2024 3:48 AM EDT [facility] Hemoglobin 10.3(L) 11.7 - 15.5 g/dL 09/19/2024 3:48 AM EDT [facility] Hematocrit 30.4(L) 35 - 47 % 09/19/2024 3:48 AM EDT [facility] MCV 80 80 - 100 fL 09/19/2024 3:48 AM EDT [facility] MCH 27.2 27 - 34 pg 09/19/2024 3:48 AM EDT [facility] MCHC 34.0 32 - 36 g/dL 09/19/2024 3:48 AM EDT [facility] RDW 13.6 11.5 - 15 % 09/19/2024 3:48 AM EDT [facility] Platelet Count 231 150 - 450 X10E9/L 09/19/2024 3:48 AM EDT [facility] MPV 8.4 7 - 12 fL 09/19/2024 3:48 AM EDT [facility] Neutrophils % 74.9 % 09/19/2024 3:48 AM EDT [facility] Lymphocytes % 20.2 % 09/19/2024 3:48 AM EDT [facility] Monocytes % 4.3 % 09/19/2024 3:48 AM EDT [facility] Eosinophils % 0.3 % 09/19/2024 3:48 AM EDT [facility] Basophils % 0.3 % 09/19/2024 3:48 AM EDT [facility] Neutrophils Absolute (A) 6.9(H) 1.5 - 6.6 10*3/uL 09/19/2024 3:48 AM EDT [facility] Lymphocytes Absolute 1.9 1.0 - 3.5 10*3/uL 09/19/2024 3:48 AM EDT [facility] Monocytes Absolute 0.4 0.0 - 0.9 10*3/uL 09/19/2024 3:48 AM EDT [facility] Eosinophils Absolute 0.0 0.0 - 0.4 10*3/uL 09/19/2024 3:48 AM EDT [facility] Basophils Absolute 0.0 0.0 - 0.2 10*3/uL 09/19/2024 3:48 AM EDT [facility] Differential Type AUTOMATED DIFFERENTIAL 09/19/2024 3:48 AM EDT [facility] Blood Venous blood / Unknown 09/19/2024 2:49 AM EDT 09/19/2024 2:50 AM EDT us Lexus Byrd MD LAB BLOOD ORDERABLES Final Re sult [facility] [address] [place] [address], [place] [phone] * (ABNORMAL) Comprehensive metabolic panel (09/19/2024 2:49 AM EDT) Only the most recent of2 resultswithin the time period is included. SODIUM 138 134 - 146 mmol/L 09/19/2024 3:57 AM EDT [facility] POTASSIUM 3.5 3.5 - 5.0 mmol/L 09/19/2024 3:57 AM EDT [facility] CHLORIDE 106 98 - 109 mmol/L 09/19/2024 3:57 AM EDT [facility] CARBON DIOXIDE 25 22 - 32 mmol/L 09/19/2024 3:57 AM EDT [facility] ANION GAP 7 5 - 15 mmol/L 09/19/2024 3:57 AM EDT [facility] BLOOD UREA NITROGEN 5 5 - 23 mg/dL 09/19/2024 3:57 AM EDT [facility] CREATININE 0.45 0.40 - 1.00 mg/dL 09/19/2024 3:57 AM EDT [facility] Comment:METHOD TRACEABLE TO IDMS STANDARD GLUCOSE 96 65 - 99 mg/dL 09/19/2024 3:57 AM EDT [facility] CALCIUM 8.1(L) 8.5 - 10.5 mg/dL 09/19/2024 3:57 AM EDT [facility] TOTAL PROTEIN 5.5(L) 6.0 - 8.0 g/dL 09/19/2024 3:57 AM EDT [facility] ALBUMIN 3.0(L) 3.2 - 5.3 g/dL 09/19/2024 3:57 AM EDT [facility] ALKALINE PHOSPHATASE 121 39 - 130 U/L 09/19/2024 3:57 AM EDT [facility] AST 11 <=41 U/L 09/19/2024 3:57 AM EDT [facility] ALT 5 <=31 U/L 09/19/2024 3:57 AM EDT [facility] BILIRUBIN,TOTAL 0.4 0.3 - 1.2 mg/dL 09/19/2024 3:57 AM EDT [facility] EGFR Non-Race Dependent >90 >=60 ml/min/1.7 3sq.m 09/19/2024 3:57 AM EDT [facility] Comment: Reported eGFR is based on the CKD-EPI 2020 equation that does not use a race coefficient. Blood Venous blood / Unknown 09/19/2024 2:49 AM EDT 09/19/2024 2:49 AM EDT Lexus Byrd MD LAB BLOOD ORDERABLES Final Re sult [facility] [address] [place] [address], * (ABNORMAL) POCT Nursing Urine Macroscopic UA (09/18/2024 7:24 PM EDT) Only the most recent of2 resultswithin the time period is included. POC Urine Specific [place] 1.015 1.010, 1.015, 1.020, 1.025 09/18/2024 7:20 PM EDT [facility] POC Urine Leukocyte Esterase Moderate(A) Negative 09/18/2024 7:20 PM EDT [facility] POC Urine Nitrite Negative Negative 09/18/2024 7:20 PM EDT [facility] POC Urine pH 7.0 5.0, 6.0, 6.5, 7.0, 7.5, 8.0, 8.5, 5.5 09/18/2024 7:20 PM EDT [facility] POC Urine Protein Negative Negative 09/18/2024 7:20 PM EDT [facility] POC Urine Glucose Negative Negative 09/18/2024 7:20 PM EDT [facility] POC Urine Ketones 80 mg/dL(A) Negative 09/18/2024 7:20 PM EDT [facility] POC Urine Urobilinogen 0.2 E.U./dL 09/18/2024 7:20 PM EDT [facility] POC Urine Bilirubin Negative Negative 09/18/2024 7:20 PM EDT [facility] POC Urine Blood/HGB Negative Negative 09/18/2024 7:20 PM EDT [facility] Urine 09/18/2024 7:24 PM EDT 09/18/2024 7:20 PM EDT us Saroj Carreon DO POINT OF CARE TEST ORDER DONELL Final Result [facility] [address] [place] [address], * Drug Screen, Urine (09/18/2024 6:52 PM EDT) Only the most recent of2 resultswithin the time period is included. AMPHETAMINE/METHAMP Negative Negative 09/18 7:21 PM EDT [facility] Comment:AMPH/METH screening cut off = 1000 ng/mL COCAINE METABOLITE Negative Negative 2024 7:21 PM EDT [facility] Comment:Cocaine screening cu t off value = 300 ng/mL ECSTASY Negative Negative 09/18/2024 7:21 PM EDT [facility] Comment:Ecstasy screening cu t off value = 500 ng/mL METHADONE Negative Negative 09/18/2024 7:21 PM EDT [facility] Comment:Methadone screening cut off value = 300 ng/mL. OPIATES Negative Negative 09/18/2024 7:21 PM EDT [facility] Comment: Opiates screening cut off value = 300 ng/mL This test is used for the detection of codeine, hydrocodone (>1000 ng/mL), morphine and hydromorphone (>900 ng/mL) in urine. OXYCODONE Negative Negative 09/18/2024 7:21 PM EDT [facility] Comment: Oxycodone screening cut off value = 300 ng/mL This test is used for the detection of oxycodone and oxymorphone in urine. PHENCYCLIDINE Negative Negative 09/18/2024 7:21 PM EDT [facility] Comment:Phencyclidine screen ing cut off value = 25 ng/mL CANNABINOIDS Negative Negative 09/18/2024 7:21 PM EDT [facility] Comment:Cannabinoids/THC scr eening cut off value = 50 ng/mL Urine Barbiturates Negative Negative 2024 7:21 PM EDT [facility] Comment:Barbiturates screeni ng cut off value = 200 ng/mL BENZODIAZEPINES Negative Negative 7:21 PM EDT [facility] Comment:Benzodiazepines scre ening cut off value = 200 ng/mL Urine Urine specimen collection, clean catch / Unknown Collection / Unknown 09/18/2024 6:52 PM EDT 09/18/2024 7:00 PM EDT us Saroj Carreon DO URINE ORDERABLES Final R esult [facility] [address] [place] [address], * Light Blue Top (09/18/2024 4:55 PM EDT) Extra Tube Auto Resulted 09/18/2024 6:01 PM EDT [facility] Blood Venous blood / Unknown 09/18/2024 4:55 PM EDT 09/18/2024 5:00 PM EDT us [facility] LAB BLOOD ORDERABLES Fin al Result [facility] [address] [place] [address], [place] * (ABNORMAL) Iron and TIBC (09/18/2024 4:55 PM EDT) IRON 62 50 - 170 ug/dL 09/18/2024 8:57 PM EDT [facility] TRANSFERRIN 400(H) 168 - 336 mg/dL 09/18/2024 8:57 PM EDT [facility] IRON BINDING 560(H) 250 - 425 ug/dL 09/18/2024 8:57 PM EDT [facility] IRON SATURATION 11(L) 15 - 50 % SATURATION 09/18/2024 8:57 PM EDT [facility] Blood Venous blood / Unknown 09/18/2024 4:55 PM EDT 09/18/2024 5:00 PM EDT us [facility] LAB BLOOD ORDERABLES Fin al Result Performing Organization Address [facility] Co de Phone Number [facility] [address] [place] [address], [place] [phone] * Ethanol (09/18/2024 4:55 PM EDT) ETHANOL <0.010 <=0.080 g/dL 09/18/2024 5:21 PM EDT [facility] Comment: This report is intended for use in clinical monitoring or management of patients. Blood 09/18/2024 4:55 PM EDT 09/18/2024 5:00 PM EDT us [facility] LAB BLOOD ORDERABLES Fin al Result [address] [place] [address], [place] * (ABNORMAL) Acetaminophen level (09/18/2024 4:55 PM EDT) ACETAMINOPHEN 6.6(L) 10.0 - 30.0 ug/mL 09/18/2024 5:21 PM EDT [facility] Blood 09/18/2024 4:5 5 PM EDT 09/18/2024 5:00 PM EDT Narrative [facility] - 09/18/2024 5:21 PM EDT Reference ranges are for therapeutic limits. [facility] LAB BLOOD ORDERABLES Fin al Result Performing Organization Address [facility]/ZIP Co de Phone Number [address] [place] [address], [place] * Salicylate level (09/18/2024 4:55 PM EDT) SALICYLATE <4.0 2.0 - 25.0 mg/dL 09/18/2024 5:21 PM EDT [facility] Blood 09/18/2024 4:55 PM EDT 09/18/2024 5:00 PM EDT Narrative [facility] - 09/18/2024 5:21 PM EDT Reference ranges are for therapeutic limits. [facility] LAB BLOOD ORDERABLES Fin al Result Performing Organization Address City/[facility]/ZIP Co de Phone Number [address] [place] [address], [place] * ECG 12 lead (09/18/2024 4:43 PM EDT) 09/18/2024 4:43 PM EDT Narrative [facility] - 09/18/2024 9:43 PM EDT Saroj Carreon DO ECG ORDERABLES Final Re sult [facility] * Critical Care (09/18/2024 4:27 PM EDT) [...] post 50g load (09/01/2024 3:45 PM EDT) GLUCOSE, 1HR POST 50GM LOAD 126 65 - 139 mg/dL 09/01/2024 10:25 PM EDT [facility] Blood Venous blood / Unknown Venipuncture / Unknown 09/01/2024 3:45 PM EDT 09/01/2024 4:30 PM EDT Zhane Bella DO LAB BLOOD ORDERABLES Final Resu lt [facility] [address] [place] [address], [place] [phone] * Hepatitis C(HCV) Ab w/ Reflex to PCR (07/27/2024 3:10 PM EDT) Anti HCV w/ PCR reflex Non-Reacti ve Non-Reacti ve^Non-Ricarda ctive 07/28/2024 12:32 AM EDT [facility] Comment: NEW TEST METHOD NOTE If recent infection suspected, recommend repeat testing (>2 months). Vbqdwb-fg-agisax ratio is <1.00. Serum / Unknown 07/27/2024 3 :10 PM EDT 07/27/2024 3:12 PM EDT Zhane Bella DO LAB BLOOD ORDERABLES Final Resu lt [facility] [address], [address] [place] [address] * AFP Single Marker Scrn, Maternal, Serum (07/27/2024 3:10 PM EDT) AFP Single Marker Scrn, Maternal, Serum SEE COMMENTS 07/29/2024 03:00 PM 07/29/2024 4:00 PM EDT [facility] Comment: NOTE Test Result Flag Unit RefValue AFP Single Marker SCRN, Maternal, S Results Summary Normal risk Neural tube defect risk estimate 2,200 AFP 124.0 ng/mL AFP MoM 1.51 MoM [...] repeat testing Initial testing Physician Phone Number [phone] GENERAL TEST INFORMATION See Note This screening [...] developed and its performance characteristics determined by [facility] in a manner consistent with CLIA requirements. This test has not been cleared or approved by the U.S. Food and Drug Administration. Test Performed by: [facility] - [address] [address] Area Supervisor: Gamaliel Au Ph.D.; CLIA# [id number] Serum / Unknown 07/27/2024 3 :10 PM EDT 07/27/2024 3:12 PM EDT Zhane Bella DO LAB BLOOD ORDERABLES Final Resu lt [address], FIRST FLOOR [place] [id number] * Rubella antibody, IgG (07/27/2024 3:10 PM EDT) Rubella IgG 15 IU/mL 07/28/2024 11:59 AM EDT [facility] Comment: Interpretation-------- <8 NEGATIVE-considered Not Immune 8-9 EQUIVOCAL-consider retesting with new specimen >9 POSITIVE-considered Immune Serum / Unknown 07/27/2024 3 :10 PM EDT 07/27/2024 3:12 PM EDT us Zhane R Jena DO LAB BLOOD ORDERABLES Final Resu lt Performing Organization Address City/[facility]/ZIP Co de Phone Number [facility] [address] [address] * Hepatitis B surface antigen (07/27/2024 3:10 PM EDT) [facility] Hepatitis B Surface Ag Non-Reacti ve Non-Reacti ve^Non-Rumsey ctive 07/28/2024 12:29 AM EDT [facility] Comment:NEW TEST METHOD Serum / Unknown 07/27/2024 3 :10 PM EDT 07/27/2024 3:12 PM EDT Zhane R Jena DO LAB BLOOD ORDERABLES Final Resu lt Performing Organization Address [facility]/ZIP Co de Phone Number [facility] [address] [address] * TSH (07/27/2024 3:10 PM EDT) [facility] TSH 1.68 0.49 - 4.67 uIU/mL 07/27/2024 10:23 PM EDT [facility] PLASMA 07/27/2024 3:10 PM EDT 07/27/2024 3:12 PM EDT Zhane R Jena DO LAB BLOOD ORDERABLES Final Resu lt Performing Organization Address City/[facility]/ZIP Co de Phone Number [facility] [address], [address] [place] [address] * Hemoglobin A1c (07/27/2024 3:10 PM EDT) [facility] Hemoglobin A1C 4.6 4.4 - 5.6 % 07/27/2024 10:13 PM EDT [facility] Comment: NOTE ADA Guidelines Result HgbA1c Normal : less than 5.7 % Prediabetes : 5.7 % to 6.4 % Diabetes : > 6.4 % Use with caution in patients with abnormal hemoglobin variants as the half-life of red blood cells and in vivo glycation rates are affected. Average glucose 85 mg/dL 10:13 PM EDT [facility] PLASMA 07/27/2024 3:10 PM EDT 07/27/2024 3:12 PM EDT us Zhane Bella DO LAB BLOOD ORDERABLES Final Resu lt [facility] [address] [place] [address] from Last 3 Months Insurance [employer] MEDICA[employer] [facility] MEDICAID Advance Directives * Full Code (Latest [...] 7:11 AM 12/23/2022 7:06 PM Care Teams Book Canvasser Relationship Specialty Start Date End Date No Pcp, No Pcp RYLIE Evans [id number] PCP - General Family Medicine 09/01/24
--- OUTSIDE RECORDS SUMMARY | 2024-10-27 11:55 | XMS_ITS | Encounter Summary ---
Author Organization [facility] Address [address] [place] [place] [address] Care Team Providers Care Director Of Human Resources Name Role Phone Unavailable Primary Care Provider Unavailabl e Encounter Details Date Type Department Care Team (Late Contact Info) Description 12/12/2023 Abstract [facility] [address] [place] [address] Osmany Bella, [address] [place], [facility] Social History Tobacco Use Types Packs/Day Years [...] Description 10/28/2024 2:30 PM EDT Routine [facility] [address] [place] [address] Osmany Bella, DO [facility] [place], [place] [id number] documented as of this encounter Visit Diagnoses Not on filedocumented in this encounter
--- OUTSIDE RECORDS SUMMARY | 2024-10-27 11:55 | XMS_ITS | Clinical Summary ---
Author Organization [facility] Address [address] [place] [address] Care Team Providers Care Iridologist Name Role Phone Unavailable Primary Care Provider [...] to complete this topic Insurance MEDICAID [place] [facility]
--- OUTSIDE RECORDS SUMMARY | 2024-10-27 11:55 | XMS_ITS | Encounter Summary ---
Author Organization [facility] Address [address] [place] [address] Care Team Providers Care Aqueduct And Reservoir Keeper Name Role Phone Unavailable Primary Care Provider Unavailabl e Encounter Details Date Type Department Care Team (Late st Contact Info) Description 11/22/2023 Clinisync Result Encounter [facility] External Department Unsolicited Zhane Bella, DO [address] [place] [address] Social History Tobacco Use Types Packs/Day Years [...] Routine [facility] [address] [place] [phone] Zhane Bella, DO [address] [place] [address] documented as of this encounter Procedures Procedure Name Priority Date/Time Associated Diagnosis Comments US RENAL BI 11/22/2023 3:40 PM EDT documented in this encounter Results * US RENAL BI (11/22/2023 3:40 PM EDT) Anatomical Region Laterality Modality Other 11/22/2023 3:40 PM EDT Narrative 11/22/2023 3:42 [place] [address] Ultrasound Report Signed Patient: GEORGIE POND MR#: [id number] : 2000 Acct:[id number] Age/Sex: 23 / F ADM Date: Loc: [facility] 251-[address]: Zhane Bella D.O. Ordering Physician: Zhane Bella D.O. Date of Service: 11/22/23 Procedure(s): US renal BI Accession Number(s): [id number] cc: Zhane Bella D.O.; Physician,Non-Staff [place] [address] Patient Name: GEORGIE POND MRN: [id number] date: 2000 Sex: F Assigned Patient Location: [facility] Current Patient Location: [facility] Accession/Order Number: [id number] Exam Date: 11/22/2023 14:20 Report Date: 11/22/2023 [...] Signed By: 11/22/23 1542 DD/ 1540 TD/TT: Chief Passenger Ship Steward/Stewardess: Procedure Note Radiology, Radiologist, MD - 11/22/2023 [place] [address] Ultrasound Report Signed Patient: GEORGIE POND TMR#: [id number] : 2000Acct:[id number] Age/Sex: 23 / FADM Date: Loc: [facility] 251-[address]: Zhane Bella D.O. Ordering Physician: Zhane Bella D.O. Date of Service: 11/22/23 Procedure(s): US renal BI Accession Number(s): [id number] cc: Zhane Bella D.O.; Physician,Non-Staff [place] [phone] Patient Name: GEORGIE POND MRN: [id number] date: 2000 Sex: F Assigned Patient Location: [facility] Current Patient Location: [facility] Accession/Order Number: [id number] Exam Date: 11/22/2023 14:20 Report Date: 11/22/2023 [...] M.D. Signed By:11/22/23 1542 DD/ 1540 TD/TT: Chief Passenger Ship Steward/Stewardess: us Zhane Monahano DO [facility] Final Result documented in this encounter Visit Diagnoses Not on filedocumented in this encounter
--- OUTSIDE RECORDS SUMMARY | 2024-10-27 11:55 | XMS_ITS | Clinical Summary ---
Author Organization [facility] Address [address] [facility] [address] [place] [address] Care Team Providers Care Yard Person Name Role Phone Unavailable Primary Care Provider Unavailabl e Allergies No known active allergies Medications MV & Min w/FA-DHA ( Gummies) 0.18-25 MG chewable tabletIndicatio ns:Vaginal bleeding affecting early ([facility]) Chew 1 each Daily 30 tablet 11 06/02/2024 Active Vit-Fe Fumarate-FA ( 19) chewable tablet Chew 1 tablet Daily 10/06/2024 Active cephalexin (Keflex) 500 MG capsuleIndicati ons:Kidney stones Take 1 capsule (500 mg) by mouth in the morning and 1 capsule (500 mg) in the evening and 1 capsule (500 mg) before bedtime. Do all this for 7 days. 21 capsule 10/26/2024 Active Active Problems Problem Noted Date Diagnosed [...] Encounters Date Type Department Care Team Description 10/26/2024 Telephone [facility] [address] [place] [address] [place] [address] Zhane Bella, DO 10/26/2024 Clinisync Result Encounter [facility] External Department Unsolicited Zhane Bella, DO 10/24/2024 Clinisync Result Encounter [facility]OMS External Department Unsolicited Zhane Bella, DO 10/23/2024 Clinisync Result Encounter [facility] External Department Unsolicited eJna Zhane, DO 10/23/2024 Clinisync Result Encounter [facility] External Department Unsolicited Mya Jacob PA 10/23/2024 Clinisync Result Encounter [facility]OM[facility] External Department Unsolicited Mya Jacob PA 10/21/2024 2:30 PM EDT Routine [facility] [address] [place] [address] Mya Jacob PA 35 weeks gestation of ([facility]); Third trimester ([facility]) 10/21/2024 Bamboo flowsheet [facility] [address] [facility] [place] [address] Mya Jacob PA 10/15/2024 3:30 PM EDT Routine [facility] [address] [place] [address] [place] [address] Mya Jacob PA Third trimester ([facility]); 32 weeks gestation of ([facility]); H/O incompetent cervix, currently ([facility]); Noncompliant patient, third trimester ([facility]) 10/15/2024 Bamboo flowsheet [facility] [address] [facility] [place] [address] Mya Jacob PA 10/12/2024 Telephone [facility] [address] [facility] [facility] [place] [address] Christie Wiley LPN 10/02/2024 Telephone [facility] [address] [facility] [facility] [place] [address] Christie Wiley LPN 09/21/2024 Telephone [facility] [address] [place] [address] [place] [address] Christie Wiley, ANTELMO 20[address] [facility] [address] [place] [address] Zhane Bella, DO 09/02/2024 2:40 PM EDT Routine [facility] [address] [place] [address] Zhane Bella, 28 weeks gestation of ([facility]) 09/02/2024 Clinisync Result Encounter [facility]OM[facility] External Department Unsolicited Zhane Bella, DO 09/02/2024 Clinisync Result Encounter [facility]OMS External Department Unsolicited Zhane Bella, DO 09/02/2024 Clinisync Result Encounter [facility] External Department Unsolicited Zhane Bella, DO 09/01/[address] [facility] [address] [place] [address] Christie Wiley, WIRE SETTER 08/28/2024 Results Follow-Up [facility] [address] [place] [address] Marie Cuellar, WIRE SETTER 08/14/[address] [facility] [address] [place] [address] Mayra Thompson MA BV (bacterial vaginosis) 08/14/2024 Telephone [facility] [address] [place] [address] Mayra Thompson MA 08/12/2024 2:50 PM EDT Routine [facility] [address] [place] [address] Zhane Bella, Well woman exam with routine gynecological exam; Vaginal discharge; STD exposure; Missed menses; , unspecified gestational age ([facility]); Diabetes mellitus screening; Flank pain 08/12/2024 Clinisync Result Encounter [facility] External Department Unsolicited Zhane Bella, DO 08/12/2024 Bamboo flowsheet [facility] [address] [place] [address] [place] [address] Zhane Bella DO 07/28/2024 2:30 PM EDT Ancillary Procedure [facility] [address] [place] [address] [place] [address] Screening, , for anatomic survey ([facility]) from Last 3 Months Family History Relation [...] Description 10/28/2024 2:30 PM EDT Routine [facility] [address] [place] [address] [place] [address] Zhane Bella, [address] [place] [address] Health Maintenance Due Date Last Done Comments Influenza Vaccine (Season Ended) 2025 03/12/2019, 03/13/2007, 02/25/2006 Procedures Procedure Name Priority Date/Time Associated Diagnosis Comments US OB BPP W NON-STRESS 10/26/2024 8:15 AM EDT [facility] CMP (CMP) (FOR REMOTE [facility] USE) Routine 10/24/2024 2:03 AM EDT ALL CBC WITH AUTO DIFF Routine 10/24/2024 2:03 AM EDT TBH URINE MICROSCOPIC ONLY Routine 10/24/2024 12:30 AM EDT TBH UA (CLEAN/CATCH) CONTACT LENS CUTTER/MICRO IF IND. Routine 10/24/2024 12:30 AM EDT US OB CERVICAL LENGTH 10/23/2024 4:04 PM EDT US OB GROWTH 10/23/2024 3:29 PM EDT US OB BPP W NON-STRESS 10/23/2024 3:21 PM EDT POCT URINALYSIS DIPSTICK Routine 10/21/2024 3:08 PM EDT 35 weeks gestation of ([facility]) Third trimester ([facility]) CULTURE, URINE, ROUTINE Routine 10/02/2024 11:44 AM EDT Missed menses POCT URINALYSIS DIPSTICK Routine 09/02/2024 3:18 PM EDT 28 weeks gestation of ([facility]) US OB CERVICAL LENGTH 09/02/2024 11:52 AM EDT US OB PLACENTA 09/02/2024 11:52 AM EDT TBH URINE MICROSCOPIC ONLY Routine 09/02/2024 11:20 AM EDT TBH UA (CLEAN/CATCH) CONTACT LENS CUTTER/MICRO IF IND. Routine 09/02/2024 11:20 AM EDT CBC WITH AUTO DIFFERENTIAL Routine 09/01/2024 3:48 PM EDT POCT URINALYSIS DIPSTICK Routine 08/12/2024 4:46 PM EDT Well woman exam with routine gynecological exam RECURRENT VAGINITIS (HTRX) Routine 08/12/2024 4:11 PM EDT IGP,APTIMA HPV,AGE GDLN Routine 08/12/2024 2:58 PM EDT US OB 14+ WEEKS ANATOMY SCAN Routine 07/28/2024 3:42 PM EDT Screening, , for anatomic survey ([facility]) AFP SINGLE MARKER SCRN, MATERNAL,SERUM ([facility]) Routine [...] EDT from Last 3 Months Results * US OB BPP W NON-STRESS (10/26/2024 8:15 AM EDT) Only the most recent of2 resultswithin the time period is included. Anatomical Region Laterality Modality Other 10/26/2024 8:15 AM EDT Narrative 10/26/2024 8:17 AM EDT The [address] [address] Ultrasound Report Signed Patient: LAURA POND MR#: [id number] : 2000 Acct:[id number] Age/Sex: 24 / F ADM Date: Loc: [facility] 251-[address]: Zhane Bella D.O. Ordering Physician: Zhane Bella D.O. Date of Service: 10/24/24 Procedure(s): US OB BPP w non-stress Accession Number(s): [id number] cc: Zhane Blela D.O.; Physician,Non-Staff [place] [address] Patient Name: LAURA POND MRN: [id number] date: 2000 Sex: F Assigned Patient Location: [facility] Current Patient Location: Accession/Order Number: [id number] Exam Date: 10/26/2024 07:43 Report Date: 10/26/2024 [...] Souza M.D. 10/26/2024 8:15 AM Dictation Location: [place] [address] Electronically authenticated by: [id number] Y Date: 10/26/2024 08:15 Dictated By: Helena De Souza M.D. Signed By: 10/26/2417 DD/ TD/TT: Manager General: Procedure Note Radiology, Radiologist, MD - 10/26/2024 [place] [address] Ultrasound Report Signed Patient: LAURA POND TMR#: [id number] : 2000Acct:[id number] Age/Sex: 24 M Date: Loc: [facility] 251-[address]: Zhane Bella D.O. Ordering Physician: Zhane Bella D.O. Date of Service: 10/24/24 Procedure(s): US OB BPP w non-stress Accession Number(s): [id number] cc: Zhane Bella D.O.; Physician,Non-Staff Adriana The [place] [address] Patient Name: LAURA POND MRN: [id number] date: 2000 Sex: F Assigned Patient Location: [facility] Current Patient Location: Accession/Order Number: [id number] Exam Date: 10/26/2024 07:43 Report Date: 10/26/2024 [...] Souza M.D. 10/26/2024 8:15 AM Dictation Location: [place] [address] Electronically authenticated by: [id number] Y Date: 508:15 Dictated By: Helena De Souza M.D. Signed By:10/26/2417 DD/ 4 TD/TT: Manager General: us Zhane Jena DO [facility] Final Result * (ABNORMAL) [facility] CMP (CMP) (FOR REMOTE [facility] USE) (10/24/2024 2:03 AM EDT) [...] 0.55 - 1.02 mg/dL TBH TBH EGFR-AF SAMOAN >60 >=60 mL/min/1. 73m 2 TBH TBH EGFR-NON AF SAMOAN >60 >=60 mL/min/1. 73m 2 TBH BUN [...] Narrative [facility]IN[facility] - 10/24/2024 2:24 AM EDT Zhane Bella DO CL[facility] Final Result [facility] TB * (ABNORMAL) ALL CBC WITH AUTO DIFF (10/24/2024 2:03 AM EDT) TB WBC 8.7 4.0 - 11.0 10 [...] Narrative [facility] - 10/24/2024 2:10 AM EDT Zhane Jena DO CLIN[facility] Final Result Performing Organization Address City/[facility]/ZIP Co de Phone Number [facility]NC TBH * (ABNORMAL) TBH URINE MICROSCOPIC ONLY (10/24/2024 12:30 AM EDT) Only the most recent of2 resultswithin the time period is included. TBH WBC 2-5(A) NONE SEEN #/HPF TBH TBH [...] Narrative [facility] - 10/24/2024 1:25 AM EDT Zhane Jena DO CLIN[facility]YNC Final Result Performing Organization Address City/[facility]/ZIP Co de Phone Number [facility] * (ABNORMAL) TBH UA (CLEAN/CATCH) CONTACT LENS CUTTER/MICRO IF IND. (10/24/2024 12:30 AM EDT) Only the most recent of2 resultswithin the time period is included. COLOR URINE LT. YELLOW YELLOW TBH CLARITY [...] CLINISYNC - 10/24/2024 1:25 AM EDT us Zhane Bella DO [facility]YKY[facility] Final Result [facility] US OB CERVICAL LENGTH (10/23/2024 4:04 PM EDT) Only the most recent of2 resultswithin the time period is included. Anatomical Region Laterality Modality Other 10/23/2024 4:04 PM EDT Narrative 10/23/2024 4:06 [place] [address] Ultrasound Report Signed Patient: LAURA POND MR#: [id number] : 2000 Acct:[id number] Age/Sex: 24 / F ADM Date: 10/23/24 Loc: US Attending Dr: Mya Jacob Ordering Physician: Zhane Bella D.O. Date of Service: 10/23/24 Procedure(s): US OB cervical length Accession Number(s): [id number] cc: Zhane Bella D.O.; Physician,Non-Staff M.D. [place] [address] Patient Name: LAURA POND MRN: [id number] date: 2000 Sex: F Assigned Patient Location: US Current Patient Location: Accession/Order Number: [id number] Exam Date: 10/23/2024 16:03 Report Date: 10/23/2024 [...] Pulido M.D. 10/23/2024 4:04 PM Dictation Location: [place] [address] Electronically authenticated by: [id number] Y Date: 10/23/2024 16:04 Dictated By: Maulik Pulido D.O. Signed By: 10/23/24 1606 DD/ 1604 TD/TT: Manager General: Procedure Note Radiology, Radiologist, MD - 10/23/2024 [place] [address] Ultrasound Report Signed Patient: LAURA POND TMR#: [id number] : 2000Acct:[id number] Age/Sex: 24 / FADM Date: 10/23/24 Loc: US Attending Dr: Mya Jacob Ordering Physician: Zhane Bella D.O. Date of Service: 10/23/24 Procedure(s): US OB cervical length Accession Number(s): [id number] cc: Zhane Bella D.O.; Physician,Non-Staff Adriana The [place] [address] Patient Name: LAURA POND MRN: [id number] date: 2000 Sex: F Assigned Patient Location: US Current Patient Location: Accession/Order Number: [id number] Exam Date: 10/23/2024 16:03 Report Date: 10/23/2024 16:04 At the request of: ZHANE BELLA DO Procedure: US OB cervical length Ultrasound assessment of the uterine cervix. HISTORY: Incompetent cervix. The cervix has a length of 4.0 cm. Cervical os closed. heart fmqq292 bpm. Cephalic presentation with longitudinal lie. US/US OB cervical length IMPRESSION: 4 cm cervical length. Impression dictated by: Maulik Pulido M.D. 10/23/2024 4:04 PM Dictation Location: [place] [address] Electronically authenticated by: [id number] Y Date: 516:04 Dictated By: Maulik Pulido D.O. Signed By:10/23/24 1606 DD/ 1604 TD/TT: Manager General: us Zhane Jena DO [facility]AG[facility] Final Result * US OB GROWTH (10/23/2024 3:29 PM EDT) Anatomical Region Laterality Modality Other 10/23/2024 3:29 PM EDT Narrative 10/23/2024 3:31 [place] [address] Ultrasound Report Signed Patient: LAURA POND MR#: [id number] : 2000 Acct:[id number] Age/Sex: 24 / F ADM Date: 10/23/24 Loc: US Attending Dr: Mya Jacob Ordering Physician: Mya Jacob Date of Service: 10/23/24 Procedure(s): US OB growth Accession Number(s): [id number] cc: Mya Jacob; Physician,Non-Staff MJacquelyn [address] [address] Patient Name: LAURA POND MRN: [id number] date: 2000 Sex: F Assigned Patient Location: [facility] Current Patient Location: Accession/Order Number: [id number] Exam Date: 10/23/2024 15:27 Report Date: 10/23/2024 [...] Jr., D.O. 10/23/2024 3:29 PM Dictation Location: [place] [address] Electronically authenticated by: [id number] Y Date: 10/23/2024 15:29 Dictated By: Rufus Garcia M.D. Signed By: 10/23/24 1531 DD/ 1529 TD/TT: Manager General: Procedure Note Radiology, Radiologist, MD - 10/23/2024 [place] [address] Ultrasound Report Signed Patient: LAURA POND TMR#: [id number] : 2000Acct:[id number] Age/Sex: 24 / FADM Date: 10/23/24 Loc: US Attending Dr: Mya Jacob Ordering Physician: Mya Jacob Date of Service: 10/23/24 Procedure(s): US OB growth Accession Number(s): [id number] cc: Mya Jacob; Physician,Non-Staff Adriana The [address] [address] Patient Name: LAURA POND MRN: [id number] date: 2000 Sex: F Assigned Patient Location: [facility] Current Patient Location: Accession/Order Number: [id number] Exam Date: 10/23/2024 15:27 Report Date: 10/23/2024 [...] Jr., D.O. 10/23/2024 3:29 PM Dictation Location: [place] [address] Electronically authenticated by: [id number] Y Date: :29 Dictated By: Rufus Garcia M.D. Signed By:10/23/24 1531 DD/ 1529 TD/TT: Manager General: Mya RIOS [facility] Final Result * (ABNORMAL) POCT urinalysis dipstick manually resulted [...] mg/dL Leukocytes, UA Negative Negative - 500+++ Calbe/mcL Nitrite, UA Negative Negative - Positive Urine [...] AM EDT Narrative 09/02/2024 11:55 AM EDT [address] [address] Ultrasound Report Signed Patient: LAURA POND MR#: [id number] : 2000 Acct:[id number] Age/Sex: 23 / F ADM Date: Loc: [facility] 258-[address]: Zhane Bella D.O. Ordering Physician: Zhane Bella D.O. Date of Service: 09/02/24 Procedure(s): US OB placenta Accession Number(s): [id number] cc: Zhane Bella D.O.; Physician,Non-Staff Adriana [address] [address] Patient Name: LAURA POND MRN: [id number] date: 2000 Sex: F Assigned Patient Location: [facility] Current Patient Location: [facility] Accession/Order Number: [id number] Exam Date: 09/02/2024 11:49 Report Date: 09/02/2024 [...] Jr., D.O. 09/02/2024 11:52 AM Dictation Location: [place] [address] Electronically authenticated by: [id number] Y Date: 09/02/2024 11:52 Dictated By: Rufus Garcia M.D. Signed By: 09/02/24 1155 DD/ 1152 TD/TT: Manager General: Procedure Note Radiology, Radiologist, MD - 09/02/2024 [place] [address] Ultrasound Report Signed Patient: LAURA POND TMR#: [id number] : 2000Acct:[id number] Age/Sex: 23 / FADM Date: Loc: [facility] 258-[address]: Zhane Bella D.O. Ordering Physician: Zhane Bella D.O. Date of Service: 09/02/24 Procedure(s): US OB placenta Accession Number(s): [id number] cc: Zhane Bella D.O.; Physician,Non-Staff Adriana The [place] [address] Patient Name: LAURA POND MRN: [id number] date: 2000 Sex: F Assigned Patient Location: [facility] Current Patient Location: [facility] Accession/Order Number: [id number] Exam Date: 09/02/2024 11:49 Report Date: 09/02/2024 [...] Jr., D.O. 09/02/2024 11:52 AM Dictation Location: [place] [address] Electronically authenticated by: [id number] Y Date: 1:52 Dictated By: Rufus Garcia M.D. Signed By:09/02/24 1153 DD/ 1152 TD/TT: Manager General: us Zhane Bella DO [facility] Final Result * (ABNORMAL) CBC auto differential (09/01/2024 3:48 [...] TYPE AUTOMATED DIFFERENTIAL [facility] Comment: PERFORMED AT [facility] [address],[place] [address] 09/01/2024 3:48 PM EDT 09/01/2024 9:40 PM EDT us Zhane Jena DO LAB BLOOD ORDERABLES Final Resul t [facility] * (ABNORMAL) RECURRENT VAGINITIS (HTRX) (08/12/2024 4:11 PM EDT) Pathologist [facility] ATOPOBIUM VAGINAE 23.789(A) 19.961 - 24.689 ppm 08/13/2024 6:52 AM EDT [facility] ATOPOBIUM VAGINAE Detected(A) 19.961 - 24.689 ppm 08/13/2024 6:52 AM EDT [facility] BVAB 2,3 (BACTERIAL VAGINOSIS ASSOCIATED BACTERIA 2, 3); MOBILUNCUS SPP 20.226(A) 19.961 - 24.689 ppm 08/13/2024 6:52 AM EDT [facility] BVAB 2,3 (BACTERIAL VAGINOSIS ASSOCIATED BACTERIA 2, 3); MOBILUNCUS SPP Detected(A) 19.961 - 24.689 ppm 08/13/2024 6:52 AM EDT [facility] MIGUEL ALBICANS, PARAPSILOSIS, TROPICALIS 0.000 19.961 - 30.770 ppm 08/13/2024 6:52 AM EDT [facility] MIGUEL ALBICANS, PARAPSILOSIS, TROPICALIS Not Detected 19.961 - 30.770 ppm 08/13/2024 6:52 AM EDT [facility] MIGUEL GLABRATA 0.000 23.000 - 32.138 ppm 08/13/2024 6:52 AM EDT [facility] MIGUEL GLABRATA Not Detected 23.000 - 32.138 ppm 08/13/2024 6:52 AM EDT [facility] MIGUEL KRUSEI 0.000 23.000 - 32.271 ppm 08/13/2024 6:52 AM EDT [facility] MIGUEL KRUSEI Not Detected 23.000 - 32.271 ppm 08/13/2024 6:52 AM EDT [facility] CHLAMYDIA TRACHOMATIS 0.000 23.000 - 31.467 ppm 08/13/2024 6:52 AM EDT [facility] CHLAMYDIA TRACHOMATIS Not Detected 23.000 - 31.467 ppm 08/13/2024 6:52 AM EDT [facility] GARDNERELLA VAGINALIS 26.712(A) 19.961 - 24.689 ppm 08/13/2024 6:52 AM EDT [facility] GARDNERELLA VAGINALIS Detected(A) 19.961 - 24.689 ppm 08/13/2024 6:52 AM EDT [facility] MEGASPHAERA (TYPES 1, 2) 15.626(A) 19.961 - 24.689 ppm 08/13/2024 6:52 AM EDT [facility] MEGASPHAERA (TYPES 1, 2) Detected(A) 19.961 - 24.689 ppm 08/13/2024 6:52 AM EDT [facility] NEISSERIA GONORRHOEAE 0.000 23.000 - 32.117 ppm 08/13/2024 6:52 AM EDT [facility] NEISSERIA GONORRHOEAE Not Detected 23.000 - 32.117 ppm 08/13/2024 6:52 AM EDT [facility] TRICHOMONAS VAGINALIS 0.000 23.000 - 32.119 ppm 08/13/2024 6:52 AM EDT [facility] TRICHOMONAS VAGINALIS Not Detected 23.000 - 32.119 ppm 08/13/2024 6:52 AM EDT [facility] MYCOPLASMA GENITALIUM 0.000 19.961 - 24.689 ppm 08/13/2024 6:52 AM EDT [facility] MYCOPLASMA GENITALIUM Not Detected 19.961 - 24.689 ppm 08/13/2024 6:52 AM EDT [facility] ERMB, C; MEFA 23.273(A) 23.000 - 27.611 ppm 08/13/2024 6:52 AM EDT [facility] ERMB, C; MEFA Detected(A) 23.000 - 27.611 ppm 08/13/2024 6:52 AM EDT [facility] TET B, TET M 27.416(A) 23.000 - 27.778 ppm 08/13/2024 6:52 AM EDT [facility] TET B, TET M Detected(A) 23.000 - 27.778 ppm 08/13/2024 6:52 AM EDT [facility] Tissue 08/12/2024 4:11 PM EDT 08/13/2024 1:36 AM EDT us Zhane Bella DO LAB BLOOD ORDERABLES Final Resul t [facility] Benjamín Julien and Jose Alfredo Valerio, MANJIT [address] * (ABNORMAL) IGP,APTIMA HPV,AGE GDLN (08/12/2024 2:58 PM EDT) AGE GDLN ACOG TESTING Note . [facility] Comment: TESTS RESULT FLAG UNITS REF RANGE LAB Clinician Provided Cytology Information Source.............Cervix No. of containers..01 ThinPrep Vial Age Algo ACOG Neha... - 01 FLAG LEGEND: L-Low Normal,H-High Normal,LL-Alert Low,HH-Alert High <-Panic Low,>-Panic High,A-Abnormal,AA-Critical Abnormal Performed at: 01 =G [address] [address] Rafaela Vega MD, IGP, RFX APTIMA HPV ASCU Note(A) . [facility] Comment: TESTS RESULT FLAG UNITS REF RANGE LAB DIAGNOSIS: [A] 02 EPITHELIAL CELL ABNORMALITY. ATYPICAL SQUAMOUS CELLS OF UNDETERMINED SIGNIFICANCE (ASC-US). Specimen adequacy: 02 Satisfactory for evaluation. Endocervical and/or squamous metaplastic cells (endocervical component) are present. Performed by: 02 Mauri Martínez, Boat Builder (ASC) Electronically si... Frances Munoz MD, Pathologist . [...] <-Panic Low,>-Panic High,A-Abnormal,AA-Critical Abnormal Performed at: [address] [address] Rafaela Vega MD, HPV APTIMA Positive( A) Negative TB Comment: This nucleic acid amplification test detects fourteen high- risk HPV types (16,18,31,33,35,39,45,51,52,56,58,59,66,68) without differentiation. Performed at: =G - [facility] [address] [id number] Sole Stainer: Rafaela Vega MD, Phone: [phone] Performed at: - [facility] [address] [place] [id number] Sole Stainer: Rafaela Vega MD, Phone: [phone] 08/12/2024 2:58 PM EDT 08/12/2024 9:42 PM EDT Narrative [facility] - 08/20/2024 3:07 AM EDT SPATULA-ALONE CERVIX us Zhane Bella DO LAB BLOOD ORDERABLES Final Resul t [facility] * US OB 14+ weeks anatomy [...] the anatomy. Electronically Signed:Electronically signed by REUBEN CERDA II, MD, PHD at 28-Jul-2024 09:45:45 PM [facility] Procedure Note Reuben Cerda MD - 07/28/2024 EXAM: US OB 14+ [...] the anatomy. Electronically Signed:Electronically signed by REUBEN CERDA II, MD, PHDat 28-Jul-2024 09:45:45 PM [facility] us Zhane Jena DO IMG OB [...] monitoring or management of patients. PERFORMED AT [facility] [address],[place] [address] 07/27/2024 3:10 PM EDT 07/27/2024 3:12 PM EDT us Zhane Bella DO LAB BLOOD ORDERABLES Final Resul t [facility] * AFP SINGLE MARKER SCRN, MATERNAL,SERUM ([facility]) (07/27/2024 3:10 PM EDT) AFP SINGLE MARKER SCRN, MATERNAL, SERUM SEE [...] repeat testing Initial testing Physician Phone Number [phone] GENERAL TEST INFORMATION See Note This screening [...] its performance characteristics determined by [facility] in a manner consistent with CLIA requirements. This test has not been cleared or approved by the U.S. Food and Drug Administration. Test Performed by: [facility] [address] [place] [address] Sole Stainer: Gamaliel Au Ph.D.; CLIA# [id number] PERFORMED AT [address] [place] [address] 07/27/2024 3:10 PM EDT 07/27/2024 3:12 PM EDT us Zhane Jena DO LAB BLOOD ORDERABLES Final Resul t [facility] * TSH ([facility]) (07/27/2024 3:10 PM EDT) TSH 1.68 0.49 - 4.67 uIU/mL [facility] Comment:PERFORMED AT [facility] [address],[place] [address] 07/27/2024 3:10 PM EDT 07/27/2024 3:12 PM EDT Seeoo DO LAB BLOOD ORDERABLES Final Resul t [facility] * SYPHILIS TOTAL ([facility]) (07/27/2024 3:10 PM EDT) SYPHILIS TOTAL <0.2 0.0 - 0.8 AI [facility] Comment: NON REACTIVE No serologic evidence of infection to Treponema pallidum (syphilis). Repeat testing may be considered in patients with suspected acute or primary syphilis in 2 to 4 weeks. PERFORMED AT [address],[place] [id number] 07/27/2024 3:10 PM EDT 07/27/2024 3:12 PM EDT us Zhane Jena DO LAB BLOOD ORDERABLES Final Resul t [facility] * Hepatitis C antibody (07/27/2024 3:10 PM EDT) Pathologist [facility] ANTI HCV W/PCR REFLEX Non-Reacti ve Non-Reacti ve [facility] Comment: NEW TEST METHOD NOTE If recent infection suspected, recommend repeat testing (>2 months). Ciehnq-do-iyfixz ratio is <1.00. PERFORMED AT [address],[place] [id number] 07/27/2024 3:10 PM EDT 07/27/2024 3:12 PM EDT us Seeoo DO LAB BLOOD ORDERABLES Final Resul t Performing Organization Address City/[facility] Co de Phone Number [facility] * Rubella antibody, IgG (07/27/2024 3:10 PM EDT) Pathologist [facility] RUBELLA IGG 15 IU/mL [facility] Comment: Interpretation-------- <8 NEGATIVE-considered Not Immune 8-9 EQUIVOCAL-consider retesting with new specimen >9 POSITIVE-considered Immune PERFORMED AT [address] [address],[place] [address] 07/27/2024 3:10 PM EDT 07/27/2024 3:12 PM EDT us Zhane Jena DO LAB BLOOD ORDERABLES Final Resul t [facility] * Hepatitis B surface antigen (07/27/2024 3:10 PM EDT) Pathologist [facility] HEPATITIS B SURG AG Non-Reacti ve Non-Reacti ve [facility] Comment: NEW TEST METHOD PERFORMED AT [address],[place] [address] 07/27/2024 3:10 PM EDT 07/27/2024 3:12 PM EDT Zhane Jena DO LAB BLOOD ORDERABLES Final Resul t Performing Organization Address City/[facility] Co de Phone Number [facility] * Hemoglobin A1c (07/27/2024 3:10 PM EDT) Pathologist [facility] HEMOGLOBIN A1C 4.6 4.4 - 5.6 % [facility] Comment: NOTE ADA Guidelines Result HgbA1c Normal : less than 5.7 % Prediabetes : 5.7 % to 6.4 % Diabetes : > 6.4 % Use with caution in patients with abnormal hemoglobin variants as the half-life of red blood cells and in vivo glycation rates are affected. AVERAGE GLUCOSE 85 mg/dL [facility] Comment:PERFORMED AT [address],[place] [address] 07/27/2024 3:10 PM EDT 07/27/2024 3:12 PM EDT Zhane Jena DO LAB BLOOD ORDERABLES Final Resul t [facility] from Last 3 Months Insurance [employer] [place]
--- OUTSIDE RECORDS SUMMARY | 2024-10-27 11:55 | XMS_ITS | Encounter Summary ---
Author Organization [facility] Address [address] [place] [address] Care Team Providers Care [facility] Pricing Consultant Name Role Phone Unavailable Primary Care Provider Unavailabl e Reason for Visit * Reason Comments Med Refill Encounter Details Date Type Department Care Team (Late Contact Info) Description 12/15/2023 Refill [facility] [address] [place] [phone] Osmany Bella [facility] [place], [facility]11 Nausea Social History Tobacco Use Types Packs/Day [...] Routine [facility]CP [address] [place] [address] Osmany Bella, DO [address] [facility] [place] [address] documented as of this encounter Visit Diagnoses Diagnosis Nausea Nausea alone documented in this encounter
--- OUTSIDE RECORDS SUMMARY | 2024-10-27 11:55 | XMS_ITS | Encounter Summary ---
Author Organization [facility] Address [address] [place] [address] Care Team Providers Care Biofuels Plant Construction Worker Name Role Phone Unavailable Primary Care Provider Unavailabl e Encounter Details Date Type Department Care Team (Late Contact Info) Description 12/12/2023 Abstract [facility] OB [address] [place] [address] Osmany Bella, [address] [place], [facility]11 Social History Tobacco Use Types Packs/Day [...] Description 10/28/2024 2:30 PM EDT Routine [facility] [address] [place] [address] Osmany Bella, DO [facility] [place], [place] [id number] documented as of this encounter Visit Diagnoses Not on filedocumented in this encounter
--- OUTSIDE RECORDS SUMMARY | 2024-10-27 11:55 | XMS_ITS | Encounter Summary ---
Author Organization [facility] Address [address] [place] [address] Care Team Providers Care Dry Lumber Grader Name Role Phone Unavailable Primary Care Provider Unavailabl e Encounter Details Date Type Department Care Team (Late Contact Info) Description 12/13/2023 Abstract [facility] OB [address] [place] [phone] Isadora Martin, CNM [address] [place], [place] [id number] Social History Tobacco Use Types Packs/Day Years Used Date Smoking Tobacco: Never Assessed Comments Yes Sex and Gender Information Value Date Recorded Sex Assigned at Not on file Legal Sex Female 11:47 PM EDT Gender Identity Not on file Sexual Orientation Not on file documented as of this encounter Plan of Treatment Upcoming Encounters Date Type Department Care Team ([facility] Contact Info) Description 10/28/2024 2:30 PM EDT Routine [facility] [address] [facility] [place] [phone] Osmany Bella DO [address] [facility] [place] [address] documented as of this encounter Visit Diagnoses Not on filedocumented in this encounter
--- OUTSIDE RECORDS SUMMARY | 2024-10-27 11:56 | XMS_ITS | Encounter Summary ---
Author Organization [facility] Address [address] [facility] [place] [address] Care Team Providers Care Reprographics Associate Name Role Phone Unavailable Primary Care Provider Unavailabl e Encounter Details Date Type Department Care Team (Late Contact Info) Description 10/21/2024 Bamboo flowsheet [facility] OB [address] [facility] [address] Mya Kaplan PA [address] [facility] [address] [place], [facility]11 Social History Tobacco Use Types Packs/Day [...] [address] [facility] [address] Osmany Bella, DO [address] [facility] [address] [place], [place] [address] documented as of this encounter Visit Diagnoses Not on filedocumented in this encounter
--- OUTSIDE RECORDS SUMMARY | 2024-10-27 11:56 | XMS_ITS | Encounter Summary ---
Author Organization [facility] Address [address] [place] [address] Care Team Providers Care Flight Follower Name Role Phone Unavailable Primary Care Provider Unavailabl e Encounter Details Date Type Department Care Team ([facility] Contact Info) Description 12/10/2022 External Result Encounter [facility] BCP [address] [place] [address] Osmany Bella DO [facility] [place] [address] Social History Tobacco [...] Upcoming Encounters Date Type Department Care Team ([facility] Contact Info) Description 10/28/2024 2:30 PM EDT Routine [facility] BCP OB [address] [place] [address] Osmany Bella DO [address] [place] [place], [place] [id number] documented as of this encounter Procedures Procedure [...] Final 12/10/2022 15:09) PATIENT INFO: ID #: [id number] : [birth year] (22 yrs)(F) Name: GEORGIE ROTH Visit Date: 12/10/2022 11:43 ESSIE PERFORMED BY: Attending: Marisel Charles MD Performed By: Pearl Hogue RDMS Referred By: Osmany Frances. Address: [address] [place], [place] [address] [address] Location: [facility] [place] SERVICE(S) PROVIDED: Comprehensive Anatomic Survey Twins [id number] INDICATIONS: Screening for anatomic survey Z36.89 Twin [...] document Interventr. Septum: Not well visualized Cardiac Elmira: Appears normal Diaphragm: Not well visualized 3 [...] document Interventr. Septum: Could not document Cardiac [place]: Appears normal Diaphragm: Could not document 3 [...] Signed Final Report 12/10/2022 15:09 IMPRESSION: 1. Taney chorionic Di amniotic Twin Gestation. 2. Twin [...] Circumvallate placenta visualized. RECOMMENDATIONS: 1. Please see [facility] consultation documentation from today's encounter. 2. Patient is scheduled in two weeks for TTTS protocol. 3. Patient is scheduled in 4 weeks for anatomic surveys, heart ECHOs, and cervical length. 4. Subsequent follow up or other follow up as clinically determined by primary OB provider unless otherwise specified by [facility]. 5. Results forwarded to ordering provider so they can follow up with the patient as necessary. The copy-to physician of this order is OSMANY Goodwin The ordering physician of this order is MARISEL Vázquez Procedure Note Radiology, RadiologistMD - 12/10/2022 [facility] (Signed Final 12/10/2022 15:09) PATIENT INFO: ID #: [id number] : [birth year] (22 yrs)(F) Name: GEORGIE ROTH Visit Date: 12/10/2022 11:43 ESSIE PERFORMED BY: Attending: Marisel Charles MD Performed By: Pearl Hogue RDMS Referred By: Osmany Bella DO Ref. Address: [address] [place] [address] [place] [address] Location: [facility] [place] SERVICE(S) PROVIDED: Comprehensive Anatomic Survey Twins [id number] INDICATIONS: Screening for anatomic survey Z36.89 Twin [...] document Interventr. Septum: Not well visualized Cardiac [place]: Appears normal Diaphragm: Not well visualized 3 [...] document Interventr. Septum: Could not document Cardiac [place]: Appears normal Diaphragm: Could not document 3 [...] Signed Final Report 12/10/2022 15:09 IMPRESSION: 1. Taney chorionic Di amniotic Twin Gestation. 2. Twin [...] Circumvallate placenta visualized. RECOMMENDATIONS: 1. Please see [facility] consultation documentation from today's encounter. 2. [...] of this order is MARISEL Vázquez us Osmayn Bella DO IMG OB US PROCEDURES Final Resul t documented in this encounter Visit Diagnoses Not on filedocumented in this encounter
--- OUTSIDE RECORDS SUMMARY | 2024-10-27 11:56 | XMS_ITS | Encounter Summary ---
Author Organization [employer] Address [facility][id number] [address] [place] [address] Care Team Providers Care Java Tech Name Role Phone No Pcp, No Pcp Primary Care Provider Unavailabl e Encounter Details Date Type Department Care Team (Late st Contact Info) Description 05/23/2021 Telephone [facility] Family [facility] [address] [place] [place] [address] Mona Delvalle CMA Social History [...] often do you attend chur ch or adventist services? Never 03/26/2021 Do you belong to any clubs o r organizations such as sabianism groups, unions, fraternal or athletic groups, or [...] Answer Date Recorded Total Score 5 05/25/2021 [facility] [place] of Occupat ional Health - Occupational Stress [...] documented as of this encounter Care Teams Java Tech Relationship Specialty Start Date End Date No Pcp, No Pcp [place] [address] PCP - General Family Medicine 09/01/24 documented as of this encounter
--- OUTSIDE RECORDS SUMMARY | 2024-10-27 11:56 | XMS_ITS | Encounter Summary ---
Author Organization [facility] Address [address] [facility] [place] [address] Care Team Providers Care Data Security Consultant Name Role Phone Unavailable Primary Care Provider Unavailabl e Encounter Details Date Type Department Care Team (Late Contact Info) Description 11/07/2022 Abstract [facility] [address] [place] [address] Osmany Bella DO [facility] [place] [address] Social History Tobacco Use Types Packs/Day [...] Description 10/28/2024 2:30 PM EDT Routine [facility] [address] [place] [address] Osmany Bella DO [facility] [place] [address] documented as of this encounter Visit Diagnoses Not on filedocumented in this encounter
--- OUTSIDE RECORDS SUMMARY | 2024-10-27 11:56 | XMS_ITS | Encounter Summary ---
Author Organization [employer] Address [facility]-[id number] [address] [place] [address] Care Team Providers Care Clinical Cytogenetics Director Name Role Phone No Pcp, No Pcp Primary Care Provider Unavailabl e Encounter Details Date Type Department Care Team (Late st Contact Info) Description 08/29/2023 Telephone [facility] [address] [facility] [address] [place] [address] Julia Morgan CMA Social History [...] often do you attend chur ch or pentecostal services? Never 03/26/2021 Do you belong to any clubs o r organizations such as moravian groups, unions, fraternal or athletic groups, or [...] Answer Date Recorded Total Score 4 08/29/2023 [facility] of Occupat ional Health - Occupational [...] things needed for daily living? No 03/26/2021 [place] Depression Scale Answer Date Recorded [place] Depression Scale Total 7 04/05/2023 The thought [...] Recorded Do you need help finding a [facility] career center and/or a training [...] documented as of this encounter Care Teams Clinical Cytogenetics Director Relationship Specialty Start Date End Date No Pcp, [place] [address] PCP - General Family Medicine 09/01/24 documented as of this encounter
--- OUTSIDE RECORDS SUMMARY | 2024-10-27 11:56 | XMS_ITS | Encounter Summary ---
Author Organization [employer] Address [facility]-[id number] [address] [place] [address] Care Team Providers Care Esthetician And Manager Medical Spa Name Role Phone No Pcp, No Pcp Primary Care Provider Unavailabl e Encounter Details Date Type Department Care Team (Late st Contact Info) Description 10/21/2023 Telephone [facility] [address] [place] [address] Dania Olsen RMA Social History [...] often do you attend chur ch or amish services? Never 03/26/2021 Do you belong to [...] Answer Date Recorded Total Score 4 08/29/2023 [facility] [place] of Occupat ional Health - Occupational Stress [...] things needed for daily living? No 03/26/2021 [place] Depression Scale Answer Date Recorded [place] Depression Scale Total 13 09/12/2023 The thought [...] Recorded Do you need help finding a [facility] career center and/or a training [...] vision and passed out and is in [facility].As she was talking to me they came [...] documented as of this encounter Care Teams Esthetician And Manager Medical Spa Relationship Specialty Start Date End Date No Pcp, [place] [address] PCP - General Family Medicine 09/01/24 documented as of this encounter
--- OUTSIDE RECORDS SUMMARY | 2024-10-27 11:56 | XMS_ITS | Encounter Summary ---
Author Organization [employer] Address [id number] [address] [place] [address] Care Team Providers Care Shipping Receiving Clerk Name Role Phone No Pcp, No Pcp Primary Care Provider Unavailabl e Encounter Details Date Type Department Care Team (Late st Contact Info) Description 10/05/2020 Telephone [facility] Family [facility] [address] [place] [address] [address] Cooper Goff CMA Social History [...] documented as of this encounter Care Teams Shipping Receiving Clerk Relationship Specialty Start Date End Date No Pcp, [place] [address] PCP - General Family Medicine 09/01/24 documented as of this encounter
--- OUTSIDE RECORDS SUMMARY | 2024-10-27 11:56 | XMS_ITS | Encounter Summary ---
Author Organization [facility] Address [address] [facility] [place] [address] Care Team Providers Care Torch Solderer Name Role Phone Unavailable Primary Care Provider Unavailabl e Encounter Details Date Type Department Care Team (Late Contact Info) Description 01/01/2023 Abstract [facility] [address] [place] [address] Osmany Bella DO [facility] [place] [address] Social History Tobacco Use Types Packs/Day [...] Description 10/28/2024 2:30 PM EDT Routine [facility] [address] [place] [address] Osmany Bella DO [facility] [place], [place] [id number] documented as of this encounter Visit Diagnoses Not on filedocumented in this encounter
--- OUTSIDE RECORDS SUMMARY | 2024-10-27 11:56 | XMS_ITS | Encounter Summary ---
Author Organization [employer] Address [id number] [address] [place] [address] Care Team Providers Care Ground Worker Name Role Phone No Pcp, No Pcp Primary Care Provider Unavailabl e Encounter Details Date Type Department Care Team (Late st Contact Info) Description 08/03/2021 Telephone [facility] [address] [place] [address] Mona Delvalle CMA Social History [...] often do you attend chur ch or worship services? Never 03/26/2021 Do you [...] Answer Date Recorded Total Score 15 08/03/2021 [facility] of Occupat ional Health - Occupational [...] documented as of this encounter Care Teams Ground Worker Relationship Specialty Start Date End Date No Pcp, [place] [address] PCP - General Family Medicine 09/01/24 documented as of this encounter
--- OUTSIDE RECORDS SUMMARY | 2024-10-27 11:56 | XMS_ITS | Encounter Summary ---
Author Organization [employer] Address [id number] [address] [place] [address] Care Team Providers Care Box Order Person Name Role Phone No Pcp, No Pcp Primary Care Provider Unavailabl e Encounter Details Date Type Department Care Team (Late st Contact Info) Description 03/06/2021 Telephone [facility] [address] [facility] [place] [address] [address] [place] [address] Madeline Tubbs RMA Social History [...] test was ordered and sent over to [facility]. documented in this encounter Plan [...] documented as of this encounter Care Teams Box Order Person Relationship Specialty Start Date End Date No Pcp, [place] [address] PCP - General Family Medicine 09/01/24 documented as of this encounter
--- OUTSIDE RECORDS SUMMARY | 2024-10-27 11:56 | XMS_ITS | Encounter Summary ---
Author Organization [employer] Address [id number] [address] [place] [address] Care Team Providers Care Card Folder Name Role Phone No Pcp, No Pcp Primary Care Provider Unavailabl e Encounter Details Date Type Department Care Team (Late st Contact Info) Description 09/07/2020 Telephone [facility] [address] [place] [address] [place] [address] Cooper Goff CMA Social History [...] documented as of this encounter Care Teams Card Folder Relationship Specialty Start Date End Date No Pcp, [place] [address] PCP - General Family Medicine 09/01/24 documented as of this encounter
--- OUTSIDE RECORDS SUMMARY | 2024-10-27 11:56 | XMS_ITS | Encounter Summary ---
Author Organization [facility] Address [address] [facility] [place] [address] Care Team Providers Care Lumber Racker Name Role Phone Unavailable Primary Care Provider Unavailabl e Encounter Details Date Type Department Care Team (Late Contact Info) Description 10/12/2024 Telephone [facility] OB [address] [facility] [place] [address] Christie Wiley LPN Social History Tobacco [...] PM EDT Routine [facility] OB [address] [facility] [place] [address] Osmany Bella DO [address] [place], [place] [address] documented as of this encounter Visit Diagnoses Not on filedocumented in this encounter
--- OUTSIDE RECORDS SUMMARY | 2024-10-27 11:56 | XMS_ITS | Encounter Summary ---
Author Organization [employer] Address [facility][id number] [address] [place] [address] Care Team Providers Care Journeyman Mechanic Name Role Phone No Pcp, No Pcp Primary Care Provider Unavailabl e Encounter Details Date Type Department Care Team (Late st Contact Info) Description 08/03/2021 Documentation [facility] [address] [place] [address] [place] [address] Mona Delvalle CMA Social History [...] any clubs o r organizations such as alevism groups, unions, fraternal or athletic groups, or [...] Answer Date Recorded Total Score 15 08/03/2021 [facility] of Occupat ional Health - Occupational [...] documented as of this encounter Care Teams Journeyman Mechanic Relationship Specialty Start Date End Date No Pcp[place] [address] PCP - General Family Medicine 09/01/24 documented as of this encounter
--- OUTSIDE RECORDS SUMMARY | 2024-10-27 11:56 | XMS_ITS | Encounter Summary ---
Author Organization [employer] Address [facility]-[id number] [address] [place] [address] Care Team Providers Care Collection Advisor Name Role Phone No Pcp, No Pcp Primary Care Provider Unavailabl e Reason for Visit * Reason Comments Med Refill Encounter Details Date Type Department Care Team (Late st Contact Info) Description 12/14/2023 Refill [facility]st[facility]ne[facility] [address] [place] [phone] Gwen Sutton, DISTRIBUTOR OF DIRECTORIES-[facility] [address] [place], [place] [address] Social History Tobacco Use Types Packs/Day Years [...] often do you attend chur ch or anabaptism services? Never 03/26/2021 Do you belong to any clubs o r organizations such as mormonism groups, unions, fraternal or athletic groups, or [...] things needed for daily living? No 03/26/2021 [place] Depression Scale Answer Date Recorded [place] Depression Scale Total 13 09/12/2023 The thought [...] documented as of this encounter Care Teams Collection Advisor Relationship Specialty Start Date End Date No Pcp, [place] [address] PCP - General Family Medicine 09/01/24 documented as of this encounter
--- OUTSIDE RECORDS SUMMARY | 2024-10-27 11:56 | XMS_ITS | Encounter Summary ---
Author Organization [facility] Address [address] [place] [address] Care Team Providers Care Tire Shop Manager Name Role Phone Unavailable Primary Care Provider Unavailabl e Encounter Details Date Type Department Care Team (Late Contact Info) Description 07/07/2024 External Result Encounter [facility] OB [address] [place] [address] Osmany Bella, DO [address], [facility]11 Social History Tobacco Use Types Packs/Day [...] EDT Routine [place] [address] Osmany Bella, DO [address], [facility]11 documented as of this encounter Procedures [...] TYPE AUTOMATED DIFFERENTIAL [facility] Comment: PERFORMED AT [facility] [address],[place] [address] 09/01/2024 3:48 PM EDT 09/01/2024 9:40 PM EDT us Osmany Jena DO LAB BLOOD ORDERABLES Final Resul t [facility] * (ABNORMAL) RECURRENT VAGINITIS (HTRX) (08/12/2024 4:11 PM EDT) [facility] ATOPOBIUM VAGINAE 23.789(A) 19.961 - 24.689 ppm 08/13/2024 6:52 AM EDT [facility] ATOPOBIUM VAGINAE Detected(A) 19.961 - 24.689 ppm 08/13/2024 6:52 AM EDT [facility] BVAB 2,3 (BACTERIAL VAGINOSIS ASSOCIATED BACTERIA 2, 3); MOBILUNCUS SPP 20.226(A) 19.961 - 24.689 ppm 08/13/2024 6:52 AM EDT [facility] BVAB 2,3 (BACTERIAL VAGINOSIS ASSOCIATED BACTERIA 2, 3); MOBILUNCUS SPP Detected(A) 19.961 - 24.689 ppm 08/13/2024 6:52 AM EDT [facility] MIGUEL ALBICANS, PARAPSILOSIS, TROPICALIS 0.000 19.961 - 30.770 ppm 08/13/2024 6:52 AM EDT [facility] MIGUEL ALBICANS, PARAPSILOSIS, TROPICALIS Not Detected 19.961 - 30.770 ppm 08/13/2024 6:52 AM EDT [facility] MIGUEL GLABRATA 0.000 23.000 - 32.138 ppm 08/13/2024 6:52 AM EDT [facility] MIGUEL GLABRATA Not Detected 23.000 - 32.138 ppm 08/13/2024 6:52 AM EDT [facility] MIGUEL KRUSEI 0.000 23.000 - 32.271 ppm 08/13/2024 6:52 AM EDT [facility] MIGUEL KRUSEI Not Detected 23.000 - 32.271 ppm 08/13/2024 6:52 AM EDT [facility] CHLAMYDIA TRACHOMATIS 0.000 23.000 - 31.467 ppm 08/13/2024 6:52 AM EDT [facility] CHLAMYDIA TRACHOMATIS Not Detected 23.000 - 31.467 ppm 08/13/2024 6:52 AM EDT [facility] GARDNERELLA VAGINALIS 26.712(A) 19.961 - 24.689 ppm 08/13/2024 6:52 AM EDT [facility] GARDNERELLA VAGINALIS Detected(A) 19.961 - 24.689 ppm 08/13/2024 6:52 AM EDT [facility] MEGASPHAERA (TYPES 1, 2) 15.626(A) 19.961 - 24.689 ppm 08/13/2024 6:52 AM EDT [facility] MEGASPHAERA (TYPES 1, 2) Detected(A) 19.961 - 24.689 ppm 08/13/2024 6:52 AM EDT [facility] NEISSERIA GONORRHOEAE 0.000 23.000 - 32.117 ppm 08/13/2024 6:52 AM EDT [facility] NEISSERIA GONORRHOEAE Not Detected 23.000 - 32.117 ppm 08/13/2024 6:52 AM EDT [facility] TRICHOMONAS VAGINALIS 0.000 23.000 - 32.119 ppm 08/13/2024 6:52 AM EDT [facility] TRICHOMONAS VAGINALIS Not Detected 23.000 - 32.119 ppm 08/13/2024 6:52 AM EDT [facility] MYCOPLASMA GENITALIUM 0.000 19.961 - 24.689 ppm 08/13/2024 6:52 AM EDT [facility] MYCOPLASMA GENITALIUM Not Detected 19.961 - 24.689 ppm 08/13/2024 6:52 AM EDT [facility] ERMB, C; MEFA 23.273(A) 23.000 - 27.611 ppm 08/13/2024 6:52 AM EDT [facility] ERMB, C; MEFA Detected(A) 23.000 - 27.611 ppm 08/13/2024 6:52 AM EDT [facility] TET B, TET M 27.416(A) 23.000 - 27.778 ppm 08/13/2024 6:52 AM EDT [facility] TET B, TET M Detected(A) 23.000 - 27.778 ppm 08/13/2024 6:52 AM EDT [facility] Tissue 08/12/2024 4:11 PM EDT 08/13/2024 1:36 AM EDT us Osmany Bella DO LAB BLOOD ORDERABLES Final Resul t [facility] [address] [place] [address] * AFP SINGLE MARKER SCRN, MATERNAL,SERUM ([facility]) (07/27/2024 3:10 PM EDT) Pathologist [facility] AFP SINGLE MARKER SCRN, MATERNAL, SERUM SEE [...] repeat testing Initial testing Physician Phone Number [phone] GENERAL TEST INFORMATION See Note This screening [...] developed and its performance characteristics determined by [facility] in a manner consistent with CLIA requirements. This test has not been cleared or approved by the U.S. Food and Drug Administration. Test Performed by: [facility] [address] [place] [address] Sheet Metal Assembler And Riveter: Gamaliel Au Ph.D.; CLIA# [id number] PERFORMED AT [address] [place] [address] 07/27/2024 3:10 PM EDT 07/27/2024 3:12 PM EDT Osmany Jena DO LAB BLOOD ORDERABLES Final Resul t Performing Organization Address City/[facility]/ZIP Co de Phone Number [facility] * SYPHILIS TOTAL ([facility]) (07/27/2024 3:10 PM EDT) Pathologist [facility] SYPHILIS TOTAL <0.2 0.0 - 0.8 AI [facility] Comment: NON REACTIVE No serologic evidence of infection to Treponema pallidum (syphilis). Repeat testing may be considered in patients with suspected acute or primary syphilis in 2 to 4 weeks. PERFORMED AT [address], [place] [address] 07/27/2024 3:10 PM EDT 07/27/2024 3:12 PM EDT Osmany Jena DO LAB BLOOD ORDERABLES Final Resul t Performing Organization Address [place]/[facility] Co de Phone Number [facility] * Rubella antibody, IgG (07/27/2024 3:10 PM EDT) [facility] RUBELLA IGG 15 IU/mL [facility] Comment: Interpretation-------- <8 NEGATIVE-considered Not Immune 8-9 EQUIVOCAL-consider retesting with new specimen >9 POSITIVE-considered Immune PERFORMED AT [address],[place] [address] 07/27/2024 3:10 PM EDT 07/27/2024 3:12 PM EDT Osmany Jena DO LAB BLOOD ORDERABLES Final Resul t Performing Organization Address City/[facility]/ZIP Co de Phone Number [facility] * Hepatitis C antibody (07/27/2024 3:10 PM EDT) Pathologist [facility] ANTI HCV W/PCR REFLEX Non-Reacti ve Non-Reacti ve [facility] Comment: NEW TEST METHOD NOTE If recent infection suspected, recommend repeat testing (>2 months). Ytwdln-gj-ehnfhp ratio is <1.00. PERFORMED AT [address],[place] [address] 07/27/2024 3:10 PM EDT 07/27/2024 3:12 PM EDT Osmany Jena DO LAB BLOOD ORDERABLES Final Resul t [facility] * Hepatitis B surface antigen (07/27/2024 3:10 PM EDT) [facility] HEPATITIS B SURG AG Non-Reacti ve Non-Reacti ve [facility] Comment: NEW TEST METHOD PERFORMED AT [address],[place] [address] 07/27/2024 3:10 PM EDT 07/27/2024 3:12 PM EDT Darby Smartzio DO LAB BLOOD ORDERABLES Final Resul t [facility] * DRUG SCREEN, URINE (07/27/2024 3:10 PM EDT) Pathologist [facility] AMPHETAMINE/METHAMP Negative Negative [facility] Comment:AMPH/METH screening cut [...] monitoring or management of patients. PERFORMED AT [address],[place] [address] 07/27/2024 3:10 PM EDT 07/27/2024 3:12 PM EDT us Osmany Jena DO LAB BLOOD ORDERABLES Final Resul t Performing Organization Address City/[facility]/ZIP Co de Phone Number [facility] * TSH ([facility]) (07/27/2024 3:10 PM EDT) TSH 1.68 0.49 - 4.67 uIU/mL [facility] Comment:PERFORMED AT [address],[place] [address] 07/27/2024 3:10 PM EDT 07/27/2024 3:12 PM [...] AVERAGE GLUCOSE 85 mg/dL [facility] Comment:PERFORMED AT [facility] [address],[place] [address] 07/27/2024 3:10 PM EDT 07/27/2024 3:12 PM [...] 0.0 - 0.2 X10E9/L [facility] Comment:PERFORMED AT [facility] [address],[place] [address] 07/27/2024 3:10 PM EDT 07/27/2024 3:12 PM EDT us Osmany Jena DO LAB BLOOD ORDERABLES Final Resul t [facility] * US OB follow up transabdominal approach (07/07/2024 2:55 PM EST) Anatomical Region Laterality Modality Body Ultrasound 07/07/2024 2:55 PM EST Narrative 07/07/2024 2:54 PM EST THIS EXAM WAS PERFORMED AT [facility] HISTORY: Vaginal bleeding in COMPARISON: 05/15/2024 EVALUATION: [...] - 07/07/2024 THIS EXAM WAS PERFORMED AT [facility] HISTORY: Vaginal bleeding in COMPARISON: 05/15/2024 EVALUATION: [...]
--- OUTSIDE RECORDS SUMMARY | 2024-10-27 11:56 | XMS_ITS | Encounter Summary ---
Author Organization [facility] Address [address] [facility] [place] [address] Care Team Providers Care Office Machine Inspector Name Role Phone Unavailable Primary Care Provider Unavailabl e Encounter Details Date Type Department Care Team (Late Contact Info) Description 10/15/2024 Bamboo flowsheet [facility] OB [address] [place] [address] Mya Kaplan PA [address] [facility] [address] [place], [facility]11 Social History Tobacco Use Types Packs/Day [...] BCP OB [address] [place] [address] Osmany Bella, DO [address] [facility] [address], [place] [address] documented as of this encounter Visit Diagnoses Not on filedocumented in this encounter
--- OUTSIDE RECORDS SUMMARY | 2024-10-27 11:56 | XMS_ITS | Encounter Summary ---
Author Organization [facility] Address [address] [facility] [place] [address] Care Team Providers Care Veneer Puller Name Role Phone Unavailable Primary Care Provider Unavailabl e Encounter Details Date Type Department Care Team (Late Contact Info) Description 11/02/2022 Abstract [facility] OB [address] [place] [address] Osmany Bella DO [facility] [place] [address] Social History Tobacco Use Types Packs/Day [...] EDT Routine [facility] OB [address] [place] [address] Osmany Bella DO [facility] [place] [address] documented as of this encounter Visit Diagnoses Not on filedocumented in this encounter
--- OUTSIDE RECORDS SUMMARY | 2024-10-27 11:56 | XMS_ITS | Encounter Summary ---
Author Organization [employer] tem Address [facility]-[id number] [address] [place] [address] Care Team Providers Care Drupal Php Developer Name Role Phone No Pcp, No Pcp Primary Care Provider Unavailabl e Encounter Details Date Type Department Care Team (Late st Contact Info) Description 05/10/2021 Telephone [facility] [facility] [address] [place] [address] [address] Kristyn Gutierrez CMA Social History [...] any clubs o r organizations such as muslim groups, unions, fraternal or athletic groups, or [...] Answer Date Recorded Total Score 13 03/26/2021 [facility] [place] of Occupat ional Health - Occupational Stress [...] covid test please send order to [facility]. [phone] documented in this encounter Plan of Treatment [...] documented as of this encounter Care Teams Drupal Php Developer Relationship Specialty Start Date End Date No Pcp, [place] [address] PCP - General Family Medicine 09/01/24 documented as of this encounter
--- OUTSIDE RECORDS SUMMARY | 2024-10-27 11:56 | XMS_ITS | Encounter Summary ---
Author Organization [employer] tem Address [facility]-[id number] [address] [place] [address] Care Team Providers Care Radio Frequency Design Engineer Name Role Phone No Pcp, No Pcp Primary Care Provider Unavailabl e Encounter Details Date Type Department Care Team (Late st Contact Info) Description 09/17/2023 Telephone [facility] [address] [address] [address] [place] [address] Tameka Abebe Social History Tobacco [...] any clubs o r organizations such as amish groups, unions, fraternal or athletic groups, or [...] Answer Date Recorded Total Score 4 08/29/2023 [facility] [place] of Occupat ional Health - Occupational Stress [...] things needed for daily living? No 03/26/2021 [place] Depression Scale Answer Date Recorded [place] Depression Scale Total 13 09/12/2023 The thought [...] Recorded Do you need help finding a [facility] career center and/or a training program? No [...] Tums as needed. 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
--- OUTSIDE RECORDS SUMMARY | 2024-10-27 11:56 | XMS_ITS | Encounter Summary ---
Author Organization [employer] Address [facility]-[id number] [address] [place] [address] Care Team Providers Care Field Health Officer Name Role Phone No Pcp, No Pcp Primary Care Provider Unavailabl e Encounter Details Date Type Department Care Team (Late st Contact Info) Description 05/17/2021 Orders Only [facility] [address] [place] [address] [place] [address] Mona Delvalle CMA Body aches; [...] often do you attend chur ch or mormon services? Never 03/26/2021 Do you belong to [...] Answer Date Recorded Total Score 13 03/26/2021 [facility] of Occupat ional Health - [...] Negative Negative SUNQUEST NASOPHARYNGEAL 05/11/2021 Loretta Brice APRN-CARE ASSISTANT MICROBIOLOGY - GENE RAL ORDERABLES Final Result [...] documented as of this encounter Care Teams Field Health Officer Relationship Specialty Start Date End Date No Pcp[place] [address] PCP - General Family Medicine 09/01/24 documented as of this encounter
--- OUTSIDE RECORDS SUMMARY | 2024-10-27 11:56 | XMS_ITS | Encounter Summary ---
Author Organization [facility] Address [address] [facility] [place] [address] Care Team Providers Care Fabric Worker Supervisor Name Role Phone Unavailable Primary Care Provider Unavailabl e Encounter Details Date Type Department Care Team (Late Contact Info) Description 12/14/2022 Abstract [facility] [address] [place] [address] Osmany Bella DO [facility] [place] [address] Social History Tobacco Use Types Packs/Day [...] Description 10/28/2024 2:30 PM EDT Routine [facility] [address] [place] [address] Osmany Bella DO [facility] [place] [address] documented as of this encounter Visit Diagnoses Not on filedocumented in this encounter
--- OUTSIDE RECORDS SUMMARY | 2024-10-27 11:56 | XMS_ITS | Encounter Summary ---
Author Organization [employer] Address [facility]-[id number] [address] [place] [address] Care Team Providers Care Hand Packager Name Role Phone No Pcp, No Pcp Primary Care Provider Unavailabl e Encounter Details Date Type Department Care Team (Late st Contact Info) Description 09/11/2023 Orders Only [facility] [address] [place] [address] Estefany Hilario LPN Screening for [...] often do you attend chur ch or anglican services? Never 03/26/2021 Do you belong to any clubs o r organizations such as latter day groups, unions, fraternal or athletic groups, or [...] things needed for daily living? No 03/26/2021 [place] Depression Scale Answer Date Recorded [place] Depression Scale Total 13 09/12/2023 The thought [...] SEE ATTACHED SCANNED REPORT us Reyna Diaz COST ACCOUNTANT-CNM LAB BLOOD ORDERABLES Fin al Result MANUALLY [...] documented as of this encounter Care Teams Hand Packager Relationship Specialty Start Date End Date No Pcp, [place] [address] PCP - General Family Medicine 09/01/24 documented as of this encounter
--- OUTSIDE RECORDS SUMMARY | 2024-10-27 11:56 | XMS_ITS | Encounter Summary ---
Author Organization [facility] Address [address] [facility] [place] [address] Care Team Providers Care Dough Cutter Name Role Phone Unavailable Primary Care Provider Unavailabl e Encounter Details Date Type Department Care Team (Late Contact Info) Description 11/27/2022 Abstract [facility] OB [address] [facility] [place] [address] Mya Kaplan PA [address] [facility] [place] [address] Social History Tobacco Use Types [...] Description 10/28/2024 2:30 PM EDT Routine [facility] OB [address] [facility] [place] [address] Osmany Bella DO [address] [place] [address] documented as of this encounter Visit Diagnoses Not on filedocumented in this encounter
--- OUTSIDE RECORDS SUMMARY | 2024-10-27 11:56 | XMS_ITS | Encounter Summary ---
Author Organization [email or web address] Address [id number] [address] [place] [address] Care Team Providers Care Rotary Engine Assembler Name Role Phone No Pcp, No Pcp Primary Care Provider Unavailabl e Encounter Details Date Type Department Care Team (Late st Contact Info) Description 05/15/2021 Telephone [facility] [facility] Family [facility] [address] [place] [address] [place] [address] Mona Delvalle CMA Social History [...] often do you attend chur ch or anabaptist services? Never 03/26/2021 Do you belong to [...] Answer Date Recorded Total Score 13 03/26/2021 [facility] [place] of Occupat ional Health - Occupational Stress [...] EST Can we get her results from [facility] for COVID test I don't see the [...] documented as of this encounter Care Teams Rotary Engine Assembler Relationship Specialty Start Date End Date No Pcp, [place] [address] PCP - General Family Medicine 09/01/24 documented as of this encounter
--- OUTSIDE RECORDS SUMMARY | 2024-10-27 11:56 | XMS_ITS | Encounter Summary ---
Author Organization [employer] Address [facility]-[id number] [address] [place] [address] Care Team Providers Care Security Shift Supervisor Name Role Phone No Pcp, No Pcp Primary Care Provider Unavailabl e Encounter Details Date Type Department Care Team (Late st Contact Info) Description 09/09/2023 Orders Only [facility] [address] [place] [address] Estefany Hilario LPN Encounter for [...] often do you attend chur ch or caodaism services? Never 03/26/2021 Do you belong to any clubs o r organizations such as lutheran groups, unions, fraternal or athletic groups, or [...] Answer Date Recorded Total Score 4 08/29/2023 [employer] of Occupat ional Health - Occupational Stress [...] things needed for daily living? No 03/26/2021 [place] Depression Scale Answer Date Recorded [place] Depression Scale Total 13 09/12/2023 The thought [...] SEE ATTACHED SCANNED REPORT us Reyna Diaz DIRECTOR CONSTRUCTION SERVICES-CNM LAB BLOOD ORDERABLES Fin al Result MANUALLY [...] documented as of this encounter Care Teams Security Shift Supervisor Relationship Specialty Start Date End Date No Pcp, [place] [address] PCP - General Family Medicine 09/01/24 documented as of this encounter
--- OUTSIDE RECORDS SUMMARY | 2024-10-27 11:56 | XMS_ITS | Encounter Summary ---
Author Organization [employer] Address [facility]-[id number] [address] [place] [address] Care Team Providers Care Liner Helper Name Role Phone No Pcp, No Pcp Primary Care Provider Unavailabl e Reason for Visit * Reason Comments Med Refill Encounter Details Date Type Department Care Team (Late st Contact Info) Description 11/12/2020 Refill [facility] [address] [place] [address] Iona Layne, TUNNEL ELASTIC OPERATOR [employer]BELL SPINNER [address] [place] [address] Hematemesis without nausea Social History [...] documented as of this encounter Care Teams Liner Helper Relationship Specialty Start Date End Date No Pcp, [place] [address] PCP - General Family Medicine 09/01/24 documented as of this encounter
--- OUTSIDE RECORDS SUMMARY | 2024-10-27 11:56 | XMS_ITS | Encounter Summary ---
Author Organization [employer] Address [facility]-[id number] [address] [place] [address] Care Team Providers Care Cadd Technician Name Role Phone No Pcp, No Pcp Primary Care Provider Unavailabl e Reason for Visit * Reason Onset Date Comments Med Refill 09/07/2020 Encounter Details Date Type Department Care Team (Late st Contact Info) Description 09/07/2020 Refill [facility] [address] [place] [address] [place] [address] Cooper Goff CMA Social History [...] documented as of this encounter Care Teams Cadd Technician Relationship Specialty Start Date End Date No Pcp, [place] [address] PCP - General Family Medicine 09/01/24 documented as of this encounter
[2024-10-27 12:05] VITALS: BP 98/65; PULSE 93; TEMP 36.4
[2024-10-27] MEDS: BETAMETHASONE ACE/BETAMETHASONE SOD PHOS 30 MG/5 ML 12 MG IM (13:45)
--- OUTSIDE RECORDS SUMMARY | 2024-10-27 13:58 | XMS_ITS | Encounter Summary ---
Author Organization [facility] Address [address] [place] [address] Care Team Providers Care Adjuster Electrical Contacts Name Role Phone Unavailable Primary Care Provider Unavailabl e Reason for Visit * Reason Comments Med Refill Encounter Details Date Type Department Care Team (Late Contact Info) Description 12/15/2023 Refill [facility] OB [address] [facility] [place] [address] Osmany Bella DO [address] [facility] [address] [place], [facility]11 Flank pain Social History Tobacco Use Types [...] PM EDT Routine [facility] OB [address] [facility] [place] [address] Osmany Bella, DO [address] [facility] [place] [address] documented as of this encounter Visit Diagnoses Diagnosis Flank pain Abdominal pain, unspecified site documented in this encounter
--- OUTSIDE RECORDS SUMMARY | 2024-10-27 13:58 | XMS_ITS | Encounter Summary ---
Author Organization [facility] Address [address] [place] [address] Care Team Providers Care Radiological Metallurgist Name Role Phone Unavailable Primary Care Provider Unavailabl e Encounter Details Date Type Department Care Team (Late Contact Info) Description 12/13/2023 Abstract [facility] OB [address] [place] [phone] Isadora Martin, CNM [address] [place], [place] [id number] Social History Tobacco Use Types Packs/Day Years Used Date Smoking Tobacco: Never Assessed Comments Yes Sex and Gender Information Value Date Recorded Sex Assigned at Not on file Legal Sex Female 11:47 PM EDT Gender Identity Not on file Sexual Orientation Not on file documented as of this encounter Plan of Treatment Upcoming Encounters Date Type Department Care Team ([facility] Contact Info) Description 10/28/2024 2:30 PM EDT Routine [facility] OB [address] [place] [phone] Osmany Bella DO [address] [facility] [place] [address] documented as of this encounter Visit Diagnoses Not on filedocumented in this encounter
--- OUTSIDE RECORDS SUMMARY | 2024-10-27 13:58 | XMS_ITS | Encounter Summary ---
Author Organization [facility] Address [address] [place] [address] Care Team Providers Care Sales Administration Manager Name Role Phone Unavailable Primary Care Provider Unavailabl e Reason for Visit * Reason Comments Med Refill Encounter Details Date Type Department Care Team (Late Contact Info) Description 12/15/2023 Refill [facility] OB [address] [place] [phone] Osmany Bella [facility] [place], [facility]11 Nausea Social History Tobacco Use Types Packs/Day [...] Routine [facility]CP OB [address] [place] [address] Osmany Bella, DO [address] [facility] [place] [address] documented as of this encounter Visit Diagnoses Diagnosis Nausea Nausea alone documented in this encounter
--- OUTSIDE RECORDS SUMMARY | 2024-10-27 13:58 | XMS_ITS | Encounter Summary ---
Author Organization [facility] Address [address] [facility] [address] Care Team Providers Care Ballistic Technician Name Role Phone Unavailable Primary Care Provider Unavailabl e Encounter Details Date Type Department Care Team (Late Contact Info) Description 12/11/2023 Abstract [facility] [address] [place] [address] Osmany Bella, [address] [place], [facility] Social History Tobacco Use Types Packs/Day [...] Description 10/28/2024 2:30 PM EDT Routine [facility] [address] [place] [address] Osmany Bella, DO [facility] [place], [place] [id number] documented as of this encounter Visit Diagnoses Not on filedocumented in this encounter
--- OUTSIDE RECORDS SUMMARY | 2024-10-27 13:58 | XMS_ITS | Encounter Summary ---
Author Organization [facility] Address [address] [place] [address] Care Team Providers Care Heel Top Lift Splitter Name Role Phone Unavailable Primary Care Provider Unavailabl e Encounter Details Date Type Department Care Team (Late st Contact Info) Description 12/15/2023 Clinisync Result Encounter [facility] External Department Unsolicited Zhane Bella, DO [address] [place] [address] Social History Tobacco Use Types Packs/Day Years [...] [facility] [address] [place] [phone] Zhane Bella [address] [place] [address] documented as of this encounter Procedures Procedure Name Priority Date/Time Associated Diagnosis Comments CT ANGIOGRAM CHEST 12/15/2023 1: 32 PM EDT documented in this encounter Results * CT angiogram chest (12/15/2023 1:32 PM EDT) Anatomical Region Laterality Modality Body, Chest Computed Tomogra phy 12/15/2023 1:32 PM EDT Narrative 12/15/2023 1:35 [place] [address] CT Scan Report Signed Patient: GEORGIE POND MR#: [id number] : 2000 Acct:[id number] Age/Sex: 23 / F ADM Date: Loc: [facility] 258-[address]: Zhane Bella D.O. Ordering Physician: Zhane Bella D.O. Date of Service: 12/15/23 Procedure(s): CT angio chest Accession Number(s): [id number] cc: Physician,Non-Staff M.[place] [id number] Patient Name: GEORGIE POND MRN: [id number] date: 2000 Sex: F Assigned Patient Location: [facility] Current Patient Location: [facility] Accession/Order Number: [id number] Exam Date: 12/15/2023 11:40 Report Date: 12/15/2023 [...] Signed By: 12/15/23 1335 DD/ 1332 TD/TT: Blunger Machine Operator: Procedure Note Radiology, Radiologist, - 12/15/2023 [place] [address] CT Scan Report Signed Patient: GEORGIE POND TMR#: [id number] : 2000Acct:[id number] Age/Sex: 23 / FADM Date: Loc: [facility] 258-[address]: Zhane Bella D.O. Ordering Physician: Zhane Bella D.O. Date of Service: 12/15/23 Procedure(s): CT angio chest Accession Number(s): [id number] cc: Physician,Non-Staff Adriana The [place] [address] Patient Name: GEORGIE POND MRN: [id number] date: 2000 Sex: F Assigned Patient Location: [facility] Current Patient Location: [facility] Accession/Order Number: [id number] Exam Date: 12/15/2023 11:40 Report Date: 12/15/2023 [...] M.D. Signed By:12/15/23 1335 DD/ 1332 TD/TT: Blunger Machine Operator: Zhane Bella DO [facility] CT PROCEDURES Final Result documented in this encounter Visit Diagnoses Not on filedocumented in this encounter
--- OUTSIDE RECORDS SUMMARY | 2024-10-27 13:58 | XMS_ITS | Encounter Summary ---
Author Organization [facility] Address [address] [place] [address] Care Team Providers Care Land Law Examiner Name Role Phone Unavailable Primary Care Provider Unavailabl e Encounter Details Date Type Department Care Team (Late st Contact Info) Description 10/26/2024 Telephone [facility] [address] [place] [phone] Osmany Bella, DO [address] [place], [place] [phone] Social History Tobacco Use Types Packs/Day Years [...] Wiley LPN - 10/26/2024 8:38 AM EDT [facility] pharmacy called and voiced that they received [...] be delivered on 11/03/24 via repeat . Manufacturing Engineering Director was informed. Christie Wiley LPN documented in this encounter Plan of Treatment Upcoming Encounters Date Type Department Care Team (Late st Contact Info) Description 10/28/2024 2:30 PM EDT Routine [facility] [address] [place] [address] Osmany Bella, [address] [facility] [place] [address] documented as of this encounter Visit Diagnoses Diagnosis Kidney stones Calculus of kidney documented in this encounter
--- OUTSIDE RECORDS SUMMARY | 2024-10-27 13:58 | XMS_ITS | Encounter Summary ---
Author Organization [facility] Address [address] [place] [address] Care Team Providers Care Distributor Operator Name Role Phone Unavailable Primary Care Provider Unavailabl e Encounter Details Date Type Department Care Team (Late st Contact Info) Description 11/22/2023 Clinisync Result Encounter [facility] External Department Unsolicited Zhane Bella, DO [address] [place] [address] Social History Tobacco Use Types Packs/Day Years [...] Routine [facility] [address] [place] [phone] Zhane Bella, DO [address] [place] [address] documented as of this encounter Procedures Procedure Name Priority Date/Time Associated Diagnosis Comments US RENAL BI 11/22/2023 3:40 PM EDT documented in this encounter Results * US RENAL BI (11/22/2023 3:40 PM EDT) Anatomical Region Laterality Modality Other 11/22/2023 3:40 PM EDT Narrative 11/22/2023 3:42 [place] [address] Ultrasound Report Signed Patient: GEORGIE POND MR#: [id number] : 2000 Acct:[id number] Age/Sex: 23 / F ADM Date: Loc: [facility] 251-[address]: Zhane Bella D.O. Ordering Physician: Zhane Bella D.O. Date of Service: 11/22/23 Procedure(s): US renal BI Accession Number(s): [id number] cc: Zhane Bella D.O.; Physician,Non-Staff Adriana [place] [address] Patient Name: GEORGIE POND MRN: [id number] date: 2000 Sex: F Assigned Patient Location: [facility] Current Patient Location: [facility] Accession/Order Number: [id number] Exam Date: 11/22/2023 14:20 Report Date: 11/22/2023 [...] Signed By: 11/22/23 1542 DD/ 1540 TD/TT: Solder Cream Maker: Procedure Note Radiology, Radiologist, MD - 11/22/2023 [place] [address] Ultrasound Report Signed Patient: GEORGIE POND TMR#: [id number] : 2000Acct:[id number] Age/Sex: 23 / FADM Date: Loc: [facility] 251-[address]: Zhane Bella D.O. Ordering Physician: Zhane Bella D.O. Date of Service: 11/22/23 Procedure(s): US renal BI Accession Number(s): [id number] cc: Zhane Bella D.O.; Physician,Non-Staff Adriana The [place] [id number] Patient Name: GEORGIE POND MRN: [id number] date: 2000 Sex: F Assigned Patient Location: [facility] Current Patient Location: [facility] Accession/Order Number: [id number] Exam Date: 11/22/2023 14:20 Report Date: 11/22/2023 [...] M.D. Signed By:11/22/23 1542 DD/ 1540 TD/TT: Solder Cream Maker: us Zhane Monahano DO [facility] Final Result documented in this encounter Visit Diagnoses Not on filedocumented in this encounter
--- OUTSIDE RECORDS SUMMARY | 2024-10-27 13:58 | XMS_ITS | Encounter Summary ---
Author Organization [facility] Address [address] [place] [address] Care Team Providers Care Imaging Clerk Name Role Phone Unavailable Primary Care Provider Unavailabl e Encounter Details Date Type Department Care Team (Late st Contact Info) Description 11/22/2023 Clinisync Result Encounter [facility] External Department Unsolicited Zhane Bella, DO [address] [place] [address] Social History Tobacco Use Types Packs/Day Years [...] Routine [facility] [address] [place] [phone] Zhane Bella DO [address] [place] [address] documented as of this encounter Procedures Procedure Name Priority Date/Time Associated Diagnosis Comments US OB PLACENTA 11/22/2023 3:44 PM EDT AMNISURE Routine 11/22/2023 1:36 PM EDT [facility] URINE MICROSCOPIC ONLY Routine 11/22/2023 1:25 PM EDT [facility] UA (CLEAN/CATCH) [employer] SUPERVISOR/MICRO IF IND. Routine 11/22/2023 1:25 PM EDT documented in this encounter Results * US OB PLACENTA (11/22/2023 3:44 PM EDT) Anatomical Region Laterality Modality Other 11/22/2023 3:44 PM EDT Narrative 11/22/2023 3:47 [place] [address] Ultrasound Report Signed Patient: GEORGIE POND MR#: [id number] : 2000 Acct:[id number] Age/Sex: 23 / F ADM Date: Loc: [facility] 251-[address]: Zhane Bella D.O. Ordering Physician: Zhane Bella D.O. Date of Service: 11/22/23 Procedure(s): US OB placenta Accession Number(s): [id number] cc: Zhane Bella D.O.; Physician,Non-Staff M.D. The [place] [address] Patient Name: GEORGIE POND MRN: [id number] date: 2000 Sex: F Assigned Patient Location: [facility] Current Patient Location: [facility] Accession/Order Number: [id number] Exam Date: 11/22/2023 14:20 Report Date: 11/22/2023 [...] Signed By: 11/22/23 1547 DD/ 1544 TD/TT: Field Machinist: Procedure Note Radiology, Radiologist, MD - 11/22/2023 [place] [address] Ultrasound Report Signed Patient: GEORGIE POND TMR#: [id number] : 2000Acct:[id number] Age/Sex: Date: Loc: [facility] 251-[address]: Zhane Bella D.O. Ordering Physician: Zhane Bella D.O. Date of Service: 11/22/23 Procedure(s): US OB placenta Accession Number(s): [id number] cc: Zhane Bella D.O.; Physician,Non-Staff Adriana The [place] [address] Patient Name: GEORGIE POND MRN: [id number] date: 2000 Sex: F Assigned Patient Location: [facility] Current Patient Location: [facility] Accession/Order Number: [id number] Exam Date: 11/22/2023 14:20 Report Date: 11/22/2023 [...] M.D. Signed By:11/22/23 1547 DD/ 1544 TD/TT: Field Machinist: us Zhane Jena DO [facility] Final [...] [facility] * (ABNORMAL) [facility] UA (CLEAN/CATCH) [employer] SUPERVISOR/MICRO IF IND. (11/22/2023 1:25 PM EDT) COLOR [...]
--- OUTSIDE RECORDS SUMMARY | 2024-10-27 13:58 | XMS_ITS | Clinical Summary ---
Author Organization [employer] Address [id number] [address] [place] [address] Care Team Providers Care Flux Plant Operator Name Role Phone No Pcp, No Pcp Primary Care Provider Unavailabl e Allergies No known active allergies Medications * This document contains information received from the source organization and may not represent a complete record from that organization. [id number] c acid () 29 mg iron- 1 [...] weeks. Marijuana use during 08/29/2023 Overview (08/29/2023): [id number] THC positive and patient educated on cessation. Hx of delivery, currently 08/27 Overview (08/29/2023): Twins delivered 02-03-2023 at 25w2d 07/28/23 cervical length 4 cm Acute cystitis 08/28/2023 Overview (08/28/2023): 08-22-23 treated in [place] [facility] with Macrobid Intractable chronic migraine without aura 2023 Overview (08/28/2023): 05/10/2023 Neuro consult placed Magnesium Citrate ordered 400mg daily Episode of recurrent major depressive disorder 0 07/06/2021 Overview (08/28/2023): Has appointment at [facility] on 09-18-23 Slow transit constipation 03/12/2019 [...] [address] [place] [id number] Madeline Gamboa APRN-SHANIA Bacterial vaginosis in (Primary Dx) 09/22/2024 Travel 09/21/2024 10:18 AM EDT - 09/21/2024 11:59 PM EDT Hospital Encounter [facility] US Imaging [address] [place] [address] Discharge Disposition: Home 09/18/2024 10:04 PM EDT - 09/22/2024 3:00 AM EDT Hospital Encounter [facility] - GEN 3 Antepartum [address] [place] [address] Bala Randle MD Discharge Disposition: [facility] 09/18/2024 4:18 PM EDT - 09/18/2024 10:03 PM EDT Emergency [facility] - Emergency [address] [place] [address] Saroj Carreon, Suicide attempt ([facility]) (Primary Dx) Discharge Disposition: [facility] 09/18/2024 Travel 09/01/2024 Travel 08/03/2024 6:20 AM EDT - 08/03/2024 9:22 AM EDT Hospital Encounter [facility] - [facility] [address] [place] [address] Ynes Gale, ASSOCIATE PROFESSOR OF LAW-CN Saul Fan MD Discharge Disposition: Home 08/03/2024 Orders Only [facility] [address] [place] [address] Violeta De Leon, ASSOCIATE PROFESSOR OF LAW-CNM Urinary tract infection in mother during , antepartum (Primary Dx) 08/03/2024 Travel 07/27/2024 2:58 PM EDT - 07/27/2024 11:59 PM EDT Hospital Encounter [facility] - Lab [address] [place] [address] Encounter for supervision of normal , unspecified, [...] cancer Mother Isis batsheva Suicide Attempts Mother Siis batsheva Epilepsy Sister Colon cancer Neg Hx [...] often do you attend chur ch or latter day services? Never 03/26/2021 Do you belong to [...] Recorded Total Score 4 08/29/2023 [facility] - Occupational [...] things needed for daily living? No 09/22/2024 [place] Depression Scale Answer Date Recorded [place] Depression Scale Total 13 09/12/2023 The thought [...] Recorded Do you need help finding a [facility] center and/or a training program? No 03/26/2021 [...] URINE CULTURE Routine 09/23/2024 4:56 PM EDT [facility] COMPREHENSIVE ANATOMIC SURVEY Routine 09/21/2024 11:04 AM [...] COLOR Yellow Yellow, Colorless 09/24/2024 1:13 AM [facility] TURBIDITY Clear Clear 09/24/2024 1:13 AM [facility] SPECIFIC GRAVITY 1.025 1.003 - 1.035 09/24/2024 1:13 AM [facility] NITRITE Negative Negative 09/24/2024 1:13 AM [facility] PH,URINE 6.0 5.0 - 8.5 09/24/2024 1:13 AM [facility] LEUKOCYTE ESTERASE Negative Negative 09/24/2024 1:13 AM [facility] PROTEIN Trace(A) Negative 09/24/2024 1:13 AM [facility] KETONES (URINE) Trace(A) Negative 1:13 AM [facility] UROBILINOGEN 4.0 eu/dL(A) 0.2 eu/dL, 1.0 eu/dL 09/24/2024 1:13 AM [facility] BILIRUBIN (URINE) Negative Negative 09/24/2024 1:13 AM [facility] BLOOD/HGB Negative Negative 09/24/2024 1:13 AM [facility] MUCOUS Present(A) None 09/24/2024 1:13 AM [facility] R.B.CELLS 0 0 - 5 09/24/2024 1:13 AM [facility] SQUAMOUS EPITHELIUM 3 0 - 5 09/24/2024 1:13 AM [facility] W.B.CELLS 2 0 - 5 09/24/2024 1:13 AM [facility] GLUCOSE (URINE) Negative Negative, 250 mg/dL, >1000 mg/dL 09/24/2024 1:13 AM [facility] Urine Urine specimen collection, clean catch / Unknown 09/23/2024 11:40 PM EDT 09/23/2024 11:51 PM EDT Madeline Gamboa ASSOCIATE PROFESSOR OF LAW-CNM URINE ORDERABLES Final Resu lt [facility] [address] [place] [address], * Chlamydia/GC by PCR Nighta Swab (09/23/2024 11:17 PM EDT) CHLAMYDIA DNA(PCR) Negative Negative 09/25/2024 6:28 AM EDT [facility] Comment:Chlamydia trachomati s not detected by nucleic acid amplification. This does not exclude the possibility of infection because results are dependent on adequate specimen collection. GONORRHOEAE DNA(PCR) Negative Negative 09/25/2024 6:28 AM EDT [facility] Comment:Neisseria gonorrhoea e not detected by nucleic acid amplification. This does not exclude the possibility of infection because results are dependent on adequate specimen collection. Swab Vaginal structure / Unknown 09/23/2024 11:17 PM EDT 09/23/2024 11:27 PM EDT us Madeline Gamboa APRN-CNM MICROBIOLOGY - GENERAL ORDE RABLES Final Result [facility] [address] [place] [address], * (ABNORMAL) Vaginitis Panel PCR (09/23/2024 11:17 PM EDT) BACT. VAGINOSIS DNA Detected(A) Not Detected 09/24/2024 9:29 PM EDT [facility] Comment:Qualitative results are reported based on detection and quantitation of targeted organism markers which include: Lactobacillus spp. (L. crispatus and L. jensenii), Gardnerella vaginalis, Atopobium vaginae, Bacterial Vaginosis Associated Bacteria-2 (BVAB-2) and Megasphaera-1. SHANEKA SPECIES DNA Not Detected Not Detected 09/24/2024 9:29 PM EDT [facility] Comment:Shaneka species not detected include: C. albicans, C. tropicalis, C. parapsilosis or C. dubliniensis. SHANEKA KRUSEI DNA Not Detected Not Detected 09/24/2024 9:29 PM EDT [facility] Comment:No Shaneka krusei de tected. SHANEKA GLABRATA DNA Not Detected Not Detected 09/24/2024 9:29 PM EDT [facility] Comment:No Shaneka glabrata detected. TRICHOMONAS VAG DNA Not Detected Not Detected 09/24/2024 9:29 PM EDT [facility] Comment: No Trichomonas vaginalis detected. BD MAX Vaginal Panel has not been evaluated for patients under 18 years old. Results for these patients should be reviewed and assessed in accordance with clinical presentation to determine patient diagnosis. Swab Vaginal structure / Unknown 09/23/2024 11:17 PM EDT 09/23/2024 11:26 PM EDT us Madeline Gamboa APRN-CNM MICROBIOLOGY - GENERAL ORDE RABLES Final Result [facility] [address] [place] [address], * Urine Culture Urine, Clean Catch Midstream (09/23/2024 4:56 PM EDT) Only the most recent of2 resultswithin the time period is included. CULTURE RESULTS 10-50,000 ORGANISMS/mL NORMAL UROGENITAL ALEX 09/24/2024 3:41 PM EDT [facility] Urine Urine specimen collection, clean catch / Unknown 09/23/2024 4:56 PM EDT 09/23/2024 5:02 PM EDT Narrative [facility] - 09/24/2024 3:41 PM EDT Urine received without preservative - delays in transport may affect results. Interpret with caution and clinical correlation is recommended. Lucius Townsend MD MICROBIOLOGY - GENERAL ORDERABL ES Final Result Performing Organization Address City/[facility]/ZIP Co de Phone Number [facility] [address] [place] [address], * [facility] COMPREHENSIVE ANATOMIC SURVEY (09/21/2024 11:04 AM EDT) Anatomical Region Laterality Modality OB-ENTRY LEVEL ELECTRICAL ENGINEER Ultrasound 09/21/2024 10:3 2 AM EDT Narrative 09/21/2024 11:43 AM EDT NAME: SALTY SANCHEZ : 2000 SEX: F Accession Number: [id number] ORDERING PHYSICIAN: SONJA COLEMAN REFERRING PHYSICIAN: ZHANE BELLA Coding ----- --------- Procedures [id number]: Ultrasound, uterus, real time with image documentation, and maternal evaluation plus detailed anatomic examination, transabdominal approach;single or first gestation STAT ----- --------- Patient Location: Inpatient Indication ----- --------- Screening for Anatomic Survey, Previous , Obesity in , Supervision of high risk . History ----- --------- OB History 5. Para 2 [id number] Maternal Assessment ----- --------- Physical Exam Height [...] EFW (oz) 9 oz EFW by: Hadlock (SOR-AB-QI-FL) Extended Tibia 51.5 mm 30w 5d 47% Rand Power Line Installer And Repairer 4.5 mm CM 4.8 mm 3% Nicolaides [...] Heart / Thorax RVOT view. LVOT view. 6-cwelob-pwoitjy view. Aortic arch view. Ductal arch view. [...] SANCHEZ : 2000 SEX: F Accession Number: [id number] ORDERING PHYSICIAN: SONJA COLEMAN REFERRING PHYSICIAN: ZHANE BELLA Coding ----- --------- Procedures [id number]: Ultrasound, uterus, real time with imagedocumentation, and maternal evaluation plus detailed anatomic examination, transabdominalapproach;single or first gestation STAT ----- --------- Patient Location: Inpatient Indication ----- --------- Screening for Anatomic Survey, Previous , Obesity in ,Supervision of high risk . History ----- --------- OB History 5. Para 2 [id number] Maternal Assessment ----- --------- Physical Exam Height [...] Hadlock Humerus 52.8 mm 30w 5d 51% Arnd HC / AC 1.01 EFW 1,608 g 31% Hadlock EFW (lb) 3 lb EFW (oz) 9 oz EFW by: Hadlock (NBA-TL-AU-FL) Extended Tibia 51.5 mm 30w 5d 47% Rand Power Line Installer And Repairer 4.5 mm CM 4.8 mm 3% Nicolaides [...] Heart / Thorax RVOT view. LVOT view. 2-fnqiiu-dwntykl view. Aortic archview. Ductal arch view. Great [...] thepatient as necessary. us Sonja Coleman DO [facility] US ORDERABLES Final Res ult * (ABNORMAL) Valproic acid, depakane (09/19/2024 9:04 PM EDT) Only the most recent of3 resultswithin the time period is included. VALPROIC ACID 31(L) 50 - 100 ug/mL 09/19/2024 9:47 PM EDT [facility] Blood Venous blood / Unknown 09/19/2024 9:04 PM EDT 09/19/2024 9:04 PM EDT us Marie Lopez MD LAB BLOOD ORDERABLES Final Resul t [facility] [address] [place] [address], [place] [phone] * Ammonia (09/19/2024 9:04 PM EDT) Only the most recent of3 resultswithin the time period is included. AMMONIA 32 18 - 72 umol/L 09/19/2024 10:34 PM EDT [facility] Blood Venous blood / Unknown 09/19/2024 9:04 PM EDT 09/19/2024 9:04 PM EDT Marie Lopez MD LAB BLOOD ORDERABLES Final Resul t Performing Organization Address City/[facility]/ZIP Co de Phone Number [facility] [address] [place] [address], * Syphilis Total (Unknown Syphilis Status) (09/19/2024 2:49 AM EDT) Only the most recent of2 resultswithin the time period is included. SYPHILIS TOTAL <0.2 <=0.8 AI 09/21/2024 3:30 PM EDT [facility] Blood Venous blood / Unknown 09/19/2024 2:49 AM EDT 09/19/2024 2:49 AM EDT Narrative [facility] - 09/21/2024 3:30 PM EDT NON REACTIVE No serologic evidence of infection to Treponema pallidum. Repeat testing may be considered in patients with suspected acute or primary syphilis in 2 to 4 weeks. Lexus Byrd MD LAB BLOOD ORDERABLES Final Re sult Performing Organization Address City/[facility]/ZIP Co de Phone Number [facility] [address] [place] [address], * (ABNORMAL) CBC auto differential (09/19/2024 2:49 AM EDT) Only the most recent of4 resultswithin the time period is included. WBC 9.2 4 - 11 x10E9/L 09/19/2024 3:48 AM EDT [facility] RBC Count 3.80 3.8 - 5.2 X10E12/L 09/19/2024 3:48 AM EDT [facility] Hemoglobin 10.3(L) 11.7 - 15.5 g/dL 09/19/2024 3:48 AM EDT [facility] Hematocrit 30.4(L) 35 - 47 % 09/19/2024 3:48 AM EDT [facility] MCV 80 80 - 100 fL 09/19/2024 3:48 AM EDT [facility] MCH 27.2 27 - 34 pg 09/19/2024 3:48 AM EDT [facility] MCHC 34.0 32 - 36 g/dL 09/19/2024 3:48 AM EDT [facility] RDW 13.6 11.5 - 15 % 09/19/2024 3:48 AM EDT [facility] Platelet Count 231 150 - 450 X10E9/L 09/19/2024 3:48 AM EDT [facility] MPV 8.4 7 - 12 fL 09/19/2024 3:48 AM EDT [facility] Neutrophils % 74.9 % 09/19/2024 3:48 AM EDT [facility] Lymphocytes % 20.2 % 09/19/2024 3:48 AM EDT [facility] Monocytes % 4.3 % 09/19/2024 3:48 AM EDT [facility] Eosinophils % 0.3 % 09/19/2024 3:48 AM EDT [facility] Basophils % 0.3 % 09/19/2024 3:48 AM EDT [facility] Neutrophils Absolute (A) 6.9(H) 1.5 - 6.6 10*3/uL 09/19/2024 3:48 AM EDT [facility] Lymphocytes Absolute 1.9 1.0 - 3.5 10*3/uL 09/19/2024 3:48 AM EDT [facility] Monocytes Absolute 0.4 0.0 - 0.9 10*3/uL 09/19/2024 3:48 AM EDT [facility] Eosinophils Absolute 0.0 0.0 - 0.4 10*3/uL 09/19/2024 3:48 AM EDT [facility] Basophils Absolute 0.0 0.0 - 0.2 10*3/uL 09/19/2024 3:48 AM EDT [facility] Differential Type AUTOMATED DIFFERENTIAL 09/19/2024 3:48 AM EDT [facility] Blood Venous blood / Unknown 09/19/2024 2:49 AM EDT 09/19/2024 2:50 AM EDT us Lexus Byrd MD LAB BLOOD ORDERABLES Final Re sult [facility] [address] [place] [address], [place] [phone] * (ABNORMAL) Comprehensive metabolic panel (09/19/2024 2:49 AM EDT) Only the most recent of2 resultswithin the time period is included. SODIUM 138 134 - 146 mmol/L 09/19/2024 3:57 AM EDT [facility] POTASSIUM 3.5 3.5 - 5.0 mmol/L 09/19/2024 3:57 AM EDT [facility] CHLORIDE 106 98 - 109 mmol/L 09/19/2024 3:57 AM EDT [facility] CARBON DIOXIDE 25 22 - 32 mmol/L 09/19/2024 3:57 AM EDT [facility] ANION GAP 7 5 - 15 mmol/L 09/19/2024 3:57 AM EDT [facility] BLOOD UREA NITROGEN 5 5 - 23 mg/dL 09/19/2024 3:57 AM EDT [facility] CREATININE 0.45 0.40 - 1.00 mg/dL 09/19/2024 3:57 AM EDT [facility] Comment:METHOD TRACEABLE TO IDMS STANDARD GLUCOSE 96 65 - 99 mg/dL 09/19/2024 3:57 AM EDT [facility] CALCIUM 8.1(L) 8.5 - 10.5 mg/dL 09/19/2024 3:57 AM EDT [facility] TOTAL PROTEIN 5.5(L) 6.0 - 8.0 g/dL 09/19/2024 3:57 AM EDT [facility] ALBUMIN 3.0(L) 3.2 - 5.3 g/dL 09/19/2024 3:57 AM EDT [facility] ALKALINE PHOSPHATASE 121 39 - 130 U/L 09/19/2024 3:57 AM EDT [facility] AST 11 <=41 U/L 09/19/2024 3:57 AM EDT [facility] ALT 5 <=31 U/L 09/19/2024 3:57 AM EDT [facility] BILIRUBIN,TOTAL 0.4 0.3 - 1.2 mg/dL 09/19/2024 3:57 AM EDT [facility] EGFR Non-Race Dependent >90 >=60 ml/min/1.7 3sq.m 09/19/2024 3:57 AM EDT [facility] Comment: Reported eGFR is based on the CKD-EPI 2020 equation that does not use a race coefficient. Blood Venous blood / Unknown 09/19/2024 2:49 AM EDT 09/19/2024 2:49 AM EDT Lexus Byrd MD LAB BLOOD ORDERABLES Final Re sult [facility] [address] [place] [address], * (ABNORMAL) POCT Nursing Urine Macroscopic UA (09/18/2024 7:24 PM EDT) Only the most recent of2 resultswithin the time period is included. POC Urine Specific [place] 1.015 1.010, 1.015, 1.020, 1.025 09/18/2024 7:20 PM EDT [facility] POC Urine Leukocyte Esterase Moderate(A) Negative 09/18/2024 7:20 PM EDT [facility] Urine Nitrite Negative Negative 09/18/2024 7:20 PM EDT [facility] Urine pH 7.0 5.0, 6.0, 6.5, 7.0, 7.5, 8.0, 8.5, 5.5 09/18/2024 7:20 PM EDT [facility] Urine Protein Negative Negative 09/18/2024 7:20 PM EDT [facility] Urine Glucose Negative Negative 09/18/2024 7:20 PM EDT [facility] Urine Ketones 80 mg/dL(A) Negative 09/18/2024 7:20 PM EDT [facility] Urine Urobilinogen 0.2 E.U./dL 09/18/2024 7:20 PM EDT [facility] Urine Bilirubin Negative Negative 09/18/2024 7:20 PM EDT [facility] Urine Blood/HGB Negative Negative 09/18/2024 7:20 PM EDT [facility] Urine 09/18/2024 7:24 PM EDT 09/18/2024 7:20 PM EDT us Saroj Carreon DO POINT OF CARE TEST ORDER DONELL Final Result [facility] [address] [place] [address], * Drug Screen, Urine (09/18/2024 6:52 PM EDT) Only the most recent of2 resultswithin the time period is included. AMPHETAMINE/METHAMP Negative Negative 09/18 7:21 PM EDT [facility] Comment:AMPH/METH screening cut off = 1000 ng/mL COCAINE METABOLITE Negative Negative 2024 7:21 PM EDT [facility] Comment:Cocaine screening cu t off value = 300 ng/mL ECSTASY Negative Negative 09/18/2024 7:21 PM EDT [facility] Comment:Ecstasy screening cu t off value = 500 ng/mL METHADONE Negative Negative 09/18/2024 7:21 PM EDT [facility] Comment:Methadone screening cut off value = 300 ng/mL. OPIATES Negative Negative 09/18/2024 7:21 PM EDT [facility] Comment: Opiates screening cut off value = 300 ng/mL This test is used for the detection of codeine, hydrocodone (>1000 ng/mL), morphine and hydromorphone (>900 ng/mL) in urine. OXYCODONE Negative Negative 09/18/2024 7:21 PM EDT [facility] Comment: Oxycodone screening cut off value = 300 ng/mL This test is used for the detection of oxycodone and oxymorphone in urine. PHENCYCLIDINE Negative Negative 09/18/2024 7:21 PM EDT [facility] Comment:Phencyclidine screen ing cut off value = 25 ng/mL CANNABINOIDS Negative Negative 09/18/2024 7:21 PM EDT [facility] Comment:Cannabinoids/THC scr eening cut off value = 50 ng/mL Urine Barbiturates Negative Negative 2024 7:21 PM EDT [facility] Comment:Barbiturates screeni ng cut off value = 200 ng/mL BENZODIAZEPINES Negative Negative 7:21 PM EDT [facility] Comment:Benzodiazepines scre ening cut off value = 200 ng/mL Urine Urine specimen collection, clean catch / Unknown Collection / Unknown 09/18/2024 6:52 PM EDT 09/18/2024 7:00 PM EDT us Saroj Carreon DO URINE ORDERABLES Final R esult [facility] [address] [place] [address], * Light Blue Top (09/18/2024 4:55 PM EDT) Extra Tube Auto Resulted 09/18/2024 6:01 PM EDT [facility] Blood Venous blood / Unknown 09/18/2024 4:55 PM EDT 09/18/2024 5:00 PM EDT us D [employer] K [employer] LAB BLOOD ORDERABLES Fin al Result [facility] [address] [place] [address], [place] * (ABNORMAL) Iron and TIBC (09/18/2024 4:55 PM EDT) IRON 62 50 - 170 ug/dL 09/18/2024 8:57 PM EDT [facility] TRANSFERRIN 400(H) 168 - 336 mg/dL 09/18/2024 8:57 PM EDT [facility] IRON BINDING 560(H) 250 - 425 ug/dL 09/18/2024 8:57 PM EDT [facility] IRON SATURATION 11(L) 15 - 50 % SATURATION 09/18/2024 8:57 PM EDT [facility] Blood Venous blood / Unknown 09/18/2024 4:55 PM EDT 09/18/2024 5:00 PM EDT us D [employer] K interprises LAB BLOOD ORDERABLES Fin al Result Performing Organization Address [facility] Co de Phone Number [facility] [address] [place] [address], [place] [phone] * Ethanol (09/18/2024 4:55 PM EDT) ETHANOL <0.010 <=0.080 g/dL 09/18/2024 5:21 PM EDT [facility] Comment: This report is intended for use in clinical monitoring or management of patients. Blood 09/18/2024 4:55 PM EDT 09/18/2024 5:00 PM EDT us D [employer] K interprises LAB BLOOD ORDERABLES Fin al Result [address] [place] [address], [place] * (ABNORMAL) Acetaminophen level (09/18/2024 4:55 PM EDT) ACETAMINOPHEN 6.6(L) 10.0 - 30.0 ug/mL 09/18/2024 5:21 PM EDT [facility] Blood 09/18/2024 4:5 5 PM EDT 09/18/2024 5:00 PM EDT Narrative [facility] - 09/18/2024 5:21 PM EDT Reference ranges are for therapeutic limits. D and K interprises LAB BLOOD ORDERABLES Fin al Result Performing Organization Address [facility]/ZIP Co de Phone Number [address] [place] [address], [place] * Salicylate level (09/18/2024 4:55 PM EDT) SALICYLATE <4.0 2.0 - 25.0 mg/dL 09/18/2024 5:21 PM EDT [facility] Blood 09/18/2024 4:55 PM EDT 09/18/2024 5:00 PM EDT Narrative [facility] - 09/18/2024 5:21 PM EDT Reference ranges are for therapeutic limits. D and K interprises LAB BLOOD ORDERABLES Fin al Result Performing Organization Address City/[facility]/ZIP Co de Phone Number [address] [place] [address], [place] * ECG 12 lead (09/18/2024 4:43 [...] - 139 mg/dL 09/01/2024 10:25 PM EDT [facility] Blood Venous blood / Unknown Venipuncture / Unknown 09/01/2024 3:45 PM EDT 09/01/2024 4:30 PM EDT Zhane Bella DO LAB BLOOD ORDERABLES Final Resu lt [facility] [address] [place] [address], [place] [phone] * Hepatitis C(HCV) Ab w/ Reflex to PCR (07/27/2024 3:10 PM EDT) Anti HCV w/ PCR reflex Non-Reacti ve Non-Reacti ve^Non-Ricarda ctive 07/28/2024 12:32 AM EDT [facility] Comment: NEW TEST METHOD NOTE If recent infection suspected, recommend repeat testing (>2 months). Qiieug-jg-qmddmu ratio is <1.00. Serum / Unknown 07/27/2024 3 :10 PM EDT 07/27/2024 3:12 PM EDT Zhane Bella DO LAB BLOOD ORDERABLES Final Resu lt [facility] [address] [place] [address] * AFP Single Marker Scrn, Maternal, Serum (07/27/2024 3:10 PM EDT) AFP Single Marker Scrn, Maternal, Serum SEE COMMENTS 07/29/2024 03:00 PM 07/29/2024 4:00 PM EDT [facility] Comment: NOTE Test Result Flag Unit RefValue AFP Single Marker SCRN, Maternal, S Results Summary Normal risk Neural tube defect risk estimate 2,200 AFP 124.0 ng/mL AFP MoM 1.51 MoM <2.50 INTERPRETATION Screen negative for neural tube defects. RECOMMENDED FOLLOW UP None. Specimen collection date 07/27/24 Maternal date of [birth year] Calculated age at KRATIK 24 years Maternal Weight 160 lbs Insulin [...] repeat testing Initial testing Physician Phone Number [phone] GENERAL TEST INFORMATION See Note This screening [...] developed and its performance characteristics determined by [facility] in a manner consistent with CLIA requirements. This test has not been cleared or approved by the [place] Food and Drug Administration. Test Performed by: [facility] - [address] [address] Handhole Machine Operator: Gamaliel Au Ph.D.; CLIA# [id number] Serum / Unknown 07/27/2024 3 :10 PM EDT 07/27/2024 3:12 PM EDT Zhane Bella DO LAB BLOOD ORDERABLES Final Resu lt [address], FIRST FLOOR [place] [id number] * Rubella antibody, IgG (07/27/2024 3:10 PM EDT) Rubella IgG 15 IU/mL 07/28/2024 11:59 AM EDT [facility] Comment: Interpretation-------- <8 NEGATIVE-considered Not Immune 8-9 EQUIVOCAL-consider retesting with new specimen >9 POSITIVE-considered Immune Serum / Unknown 07/27/2024 3 :10 PM EDT 07/27/2024 3:12 PM EDT us Zhane R Jena DO LAB BLOOD ORDERABLES Final Resu lt Performing Organization Address City/[facility]/ZIP Co de Phone Number [facility] [address] [address] * Hepatitis B surface antigen (07/27/2024 3:10 PM EDT) [facility] Hepatitis B Surface Ag Non-Reacti ve Non-Reacti ve^Non-[place] ctive 07/28/2024 12:29 AM EDT [facility] Comment:NEW TEST METHOD Serum / Unknown 07/27/2024 3 :10 PM EDT 07/27/2024 3:12 PM EDT Zhane R Jena DO LAB BLOOD ORDERABLES Final Resu lt Performing Organization Address [facility]/ZIP Co de Phone Number [facility] [address] [address] * TSH (07/27/2024 3:10 PM EDT) [facility] TSH 1.68 0.49 - 4.67 uIU/mL 07/27/2024 10:23 PM EDT [facility] PLASMA 07/27/2024 3:10 PM EDT 07/27/2024 3:12 PM EDT Zhane R Jena DO LAB BLOOD ORDERABLES Final Resu lt Performing Organization Address City/[facility]/ZIP Co de Phone Number [facility] [address] [facility], [address] [place] [address] * Hemoglobin A1c (07/27/2024 3:10 PM EDT) [facility] Hemoglobin A1C 4.6 4.4 - 5.6 % 07/27/2024 10:13 PM EDT [facility] Comment: NOTE ADA Guidelines Result HgbA1c Normal : less than 5.7 % Prediabetes : 5.7 % to 6.4 % Diabetes : > 6.4 % Use with caution in patients with abnormal hemoglobin variants as the half-life of red blood cells and in vivo glycation rates are affected. Average glucose 85 mg/dL 10:13 PM EDT [facility] PLASMA 07/27/2024 3:10 PM EDT 07/27/2024 3:12 PM EDT us Zhane Bella DO LAB BLOOD ORDERABLES Final Resu lt [employer] [address], [address] [place] [address] from Last 3 Months Insurance [employer] [facility] MEDICAID Advance Directives * Full Code [...] 7:11 AM 12/23/2022 7:06 PM Care Teams Flux Plant Operator Relationship Specialty Start Date End Date No Pcp, No Pcp RYLIE Evans [address] PCP - General Family Medicine 09/01/24
--- OUTSIDE RECORDS SUMMARY | 2024-10-27 13:58 | XMS_ITS | Encounter Summary ---
Author Organization [facility] Address [address] [place] [address] Care Team Providers Care E Learning Manager Name Role Phone Unavailable Primary Care Provider Unavailabl e Encounter Details Date Type Department Care Team (Late Contact Info) Description 11/29/2023 Abstract [facility] OB [address] [phone] Marie Cuellar LPN [address] [place] [id number] Social History Tobacco Use Types Packs/Day Years [...] Description 10/28/2024 2:30 PM EDT Routine [facility] OB [address] [place] [phone] Osmany Bella [address] [place], [place] [phone] documented as of this encounter Visit Diagnoses Not on filedocumented in this encounter
--- OUTSIDE RECORDS SUMMARY | 2024-10-27 13:58 | XMS_ITS | Encounter Summary ---
Author Organization [facility] Address [address] [place] [address] Care Team Providers Care Parts Department Manager Name Role Phone Unavailable Primary Care Provider Unavailabl e Encounter Details Date Type Department Care Team (Late st Contact Info) Description 12/15/2023 Clinisync Result Encounter [facility] External Department Unsolicited Zhane Bella, [address] [place] [address] Social History Tobacco Use Types Packs/Day Years [...] Description 10/28/2024 2:30 PM EDT Routine [facility] OB [address] [place] [phone] Zhane Bella [place] [address] documented as of this encounter Procedures Procedure Name Priority Date/Time Associated Diagnosis Comments ECG 12-LEAD 12/15/2023 11:21 AM EDT documented in this encounter Results * ECG 12-LEAD (12/15/2023 11:21 AM EDT) Anatomical Region Laterality Modality Other 12/15/2023 11:2 1 AM EDT Narrative 12/16/2023 8:32 AM EDT The [address] [address] Electrocardiograph Report Signed Patient: GEORGIE POND MR#: [id number] : 2000 Acct:[id number] Age/Sex: 23 / F ADM Date: Loc: [facility] 258- Attending Dr: Zhane Bella D.O. Ordering Physician: Zhane Bella D.O. Date of Service: 12/15/23 Procedure(s): ECG 12 lead Accession Number(s): [id number] cc: [facility] Test Date: 2023-12-15 Pat Name: GEORGIE MATA Department: Room: [facility] Gender: Female Repair Specialist: : 2000 Requested By: ZHANE BELLA Order Number: [id number] Reading MD: BEAR RICHARDSON Measurements Intervals [place] Rate: 80 P: 20 IN: 145 QRS: 32 QRSD: 86 T: 26 QT: 352 QTc: 408 Interpretive Statements SINUS RHYTHM Non-Specific T wave inversion in III WARNING: DATA QUALITY MAY AFFECT INTERPRETATION No previous ECG available for comparison Electronically Signed On 12-16-2023 8:32:05 EDT by BEAR RICHARDSON Dictated By: Bear Richardson M.D. Signed By: 12/16/23 0832 DD/ 1121 TD/TT: Circus Performer: Procedure Note Radiology, Radiologist, MD - 12/16/2023 The [place] [id number] Electrocardiograph Report Signed Patient: GEORGIE POND TMR#: [id number] : 2000Acct:[id number] Age/Sex: 23 / FADM Date: Loc: [facility] 258-[address]: Zhane Bella D.O. Ordering Physician: Zhane Bella D.O. Date of Service: 12/15/23 Procedure(s): ECG 12 lead Accession Number(s): [id number] cc: [facility] Test Date: 2023-12-15 [facility] Department: Room: [facility] Gender: Female Repair Specialist: : 2000 Requested By: ZHANE BELLA Order Number: [id number] Reading MD: BEAR RICHARDSON Measurements Intervals [place] Rate: 80 P: 20 IN: 145 QRS: 32 QRSD: 86 T: 26 QT: 352 QTc: 408 Interpretive Statements SINUS RHYTHM Non-Specific T wave inversion in III WARNING: DATA QUALITY MAY AFFECT INTERPRETATION No previous ECG available for comparison Electronically Signed On 12-16-2023 8:32:05 EDT by BEAR RICHARDSON Dictated By: Bear Richardson M.D. Signed By:12/16/23 0832 DD/ 1121 TD/TT: Circus Performer: us Zhane Bella DO [facility] Final Result documented in this encounter Visit Diagnoses Not on filedocumented in this encounter
--- OUTSIDE RECORDS SUMMARY | 2024-10-27 13:58 | XMS_ITS | Encounter Summary ---
Author Organization [facility] Address [address] [facility] [place] [address] Care Team Providers Care Cake Knocker Name Role Phone Unavailable Primary Care Provider Unavailabl e Encounter Details Date Type Department Care Team (Late Contact Info) Description 12/12/2023 Abstract [facility] OB [address] [place] [address] Osmany Bella, [address] [place], [facility]11 Social History Tobacco Use Types Packs/Day Years [...] Description 10/28/2024 2:30 PM EDT Routine [facility] OB [address] [place] [address] Osmany Bella, DO [facility] [place], [place] [phone] documented as of this encounter Visit Diagnoses Not on filedocumented in this encounter
--- OUTSIDE RECORDS SUMMARY | 2024-10-27 13:58 | XMS_ITS | Encounter Summary ---
Author Organization [facility] Address [id number] [address] [place] [address] Care Team Providers Care Metal Products Fabricator Assembler Name Role Phone No Pcp, No Pcp Primary Care Provider Unavailabl e Encounter Details Date Type Department Care Team (Late st Contact Info) Description 05/10/2023 Orders Only [facility] - Labor [address] [facility] [place] [phone] Marilu Mcneal, MEN'S LOCKER ROOM ATTENDANT-CN [address] [place] [address] Chronic migraine without aura without status migrainosus, [...] Never 03/26/2021 How often do you attend [facility] or alevism services? Never 03/26/2021 Do you belong to [...] Answer Date Recorded Total Score 15 08/03/2021 [facility] - Occupational [...] things needed for daily living? No 03/26/2021 [place] Depression Scale Answer Date Recorded [place] Depression Scale Total 7 04/05/2023 The thought [...] documented as of this encounter Care Teams Metal Products Fabricator Assembler Relationship Specialty Start Date End Date No Pcp, [place] [address] PCP - General Family Medicine 09/01/24 documented as of this encounter
--- OUTSIDE RECORDS SUMMARY | 2024-10-27 13:58 | XMS_ITS | Encounter Summary ---
Author Organization [employer] [facility] Address [facility] [address] [place] [address] Care Team Providers Care Informatics Nurse Specialist Name Role Phone No Pcp, No Pcp Primary Care Provider Unavailabl e Encounter Details Date Type Department Care Team (Late st Contact Info) Description 09/25/2024 Orders Only [facility]ne[facility] [address] [place] [phone] Madeline Gamboa [facility] [address] [place] [phone] Bacterial vaginosis in (Primary Dx) Social History [...] often do you attend chur ch or mosque services? Never 03/26/2021 Do you belong to any clubs o r organizations such as jewish groups, unions, fraternal or athletic groups, or [...] things needed for daily living? No 09/22/2024 [place] Depression Scale Answer Date Recorded [place] Depression Scale Total 13 09/12/2023 The thought [...] Recorded Do you need help finding a [facility] career center and/or a training program? [...] documented as of this encounter Care Teams Informatics Nurse Specialist Relationship Specialty Start Date End Date No Pcp, [place] [address] PCP - General Family Medicine 09/01/24 documented as of this encounter
--- OUTSIDE RECORDS SUMMARY | 2024-10-27 13:58 | XMS_ITS | Encounter Summary ---
Author Organization [facility] Address [address] [place] [address] Care Team Providers Care Typewriter Operator Automatic Name Role Phone Unavailable Primary Care Provider Unavailabl e Encounter Details Date Type Department Care Team (Late st Contact Info) Description 10/26/2024 Clinisync Result Encounter [facility] External Department Unsolicited Zhane Bella, DO [address] [place] [address] Social History Tobacco Use Types Packs/Day Years [...] PM EDT Routine [facility] OB [address] [place] [phone] Zhane Bella, [facility] [place] [address] documented as of this encounter Procedures Procedure Name Priority Date/Time Associated Diagnosis Comments US OB BPP W NON-STRESS 10/26/2024 8:15 AM EDT documented in this encounter Results * US OB BPP W NON-STRESS (10/26/2024 8:15 AM EDT) Anatomical Region Laterality Modality Other 10/26/2024 8:15 AM EDT Narrative 10/26/2024 8:17 [place] [address] Ultrasound Report Signed Patient: GEORGIE POND MR#: [id number] : 2000 Acct:[id number] Age/Sex: 24 / F ADM Date: Loc: [facility] 251-[address]: Zhane Bella D.O. Ordering Physician: Zhane Bella D.O. Date of Service: 10/24/24 Procedure(s): US OB BPP w non-stress Accession Number(s): [id number] cc: Zhane Bella D.O.; Physician,Non-Staff Adriana The [place] [phone] Patient Name: GEORGIE POND MRN: [facility]:[id number] date: 2000 Sex: F Assigned Patient Location: [facility] Current Patient Location: Accession/Order Number: [id number] Exam Date: 10/26/2024 07:43 Report Date: 10/26/2024 [...] Souza M.D. 10/26/2024 8:15 AM Dictation Location: [place] [address] Electronically authenticated by: [id number] Y Date: 10/26/2024 08:15 Dictated By: Helena De Suoza M.D. Signed By: 10/26/24816 DD/ 4 TD/TT: Bank Worker: Procedure Note Radiology, Radiologist, MD - 10/26/2024 [place] [address] Ultrasound Report Signed Patient: GEORGIE POND TMR#: [id number] : 2000Acct:[id number] Age/Sex: Date: Loc: [facility] 251-[address]: Zhane Bella D.O. Ordering Physician: Zhane Bella D.O. Date of Service: 10/24/24 Procedure(s): US OB BPP w non-stress Accession Number(s): [id number] cc: Zhane Bella D.O.; Physician,Non-Staff Adriana The [place] [phone] Patient Name: GEORGIE POND MRN: [id number]:[id number] date: 2000 Sex: F Assigned Patient Location: [facility] Current Patient Location: Accession/Order Number: [id number] Exam Date: 10/26/2024 07:43 Report Date: 10/26/2024 [...] Souza M.D. 10/26/2024 8:15 AM Dictation Location: [place] [address] Electronically authenticated by: [id number] Y Date: 508:15 Dictated By: Helena De Souza M.D. Signed By:10/26/2417 DD/ 4 TD/TT: Bank Worker: us Zhane Monahano DO [facility] Final Result documented in this encounter Visit Diagnoses Not on filedocumented in this encounter
--- OUTSIDE RECORDS SUMMARY | 2024-10-27 13:58 | XMS_ITS | Encounter Summary ---
Author Organization [facility] Address [address] [facility] [place] [address] Care Team Providers Care Boxing Trainer Name Role Phone Unavailable Primary Care Provider Unavailabl e Encounter Details Date Type Department Care Team (Late st Contact Info) Description 08/05/2023 Abstract [facility] OB [address] [facility] [place] [phone] Kimi Olsen LPN [address] [facility] Siddhartha GONZALEZ [facility]11 Social History Tobacco Use Types Packs/Day [...] [facility] OB [address] [facility] [place] [address] Osmany Bella DO [address] [facility] [address] [place], [place] [address] documented as of this encounter Visit Diagnoses Not on filedocumented in this encounter
--- OUTSIDE RECORDS SUMMARY | 2024-10-27 13:58 | XMS_ITS | Encounter Summary ---
Author Organization [facility] Address [address] [facility] [place] [address] Care Team Providers Care Laboratory Sampler Name Role Phone Unavailable Primary Care Provider Unavailabl e Encounter Details Date Type Department Care Team (Late Contact Info) Description 12/12/2023 Abstract [facility] OB [address] [place] [address] Osmany Bella, [address] [place], [facility]11 Social History Tobacco Use Types Packs/Day Years [...] Description 10/28/2024 2:30 PM EDT Routine [facility] OB [address] [place] [address] Osmany Bella, DO [facility] [place], [place] [address] documented as of this encounter Visit Diagnoses Not on filedocumented in this encounter
--- OUTSIDE RECORDS SUMMARY | 2024-10-27 13:58 | XMS_ITS | Encounter Summary ---
Author Organization [facility] Address [address] [place] [address] Care Team Providers Care Boring Machine Set Up Operator Name Role Phone Unavailable Primary Care Provider Unavailabl e Encounter Details Date Type Department Care Team (Late st Contact Info) Description 12/10/2023 Abstract [facility] OB [address] [place] [address] Christie Wiley [...] Description 10/28/2024 2:30 PM EDT Routine [facility] [address] [address] [place] [address] Osmany Bella DO [facility] [place], [place] [phone] documented as of this encounter Visit Diagnoses Not on filedocumented in this encounter
--- OUTSIDE RECORDS SUMMARY | 2024-10-27 13:59 | XMS_ITS | Encounter Summary ---
Author Organization [facility] Address [address] [place] [address] Care Team Providers Care Gunnery/Ordnance Officer Name Role Phone Unavailable Primary Care Provider Unavailabl e Encounter Details Date Type Department Care Team (Late Contact Info) Description 10/23/2024 Clinisync Result Encounter [facility] External Department Unsolicited Mya Jacob PA [address] [facility] [address] [place], [facility]11 Social History Tobacco Use Types Packs/Day [...] PM EDT Routine [facility] BCP OB [address] [facility] [place] [address] Osmany Bella, DO [address] [facility] [place] [address] documented as of this encounter Procedures Procedure Name Priority Date/Time Associated Diagnosis Comments US OB BPP W NON-STRESS 10/23/2024 3:21 PM EDT documented in this encounter Results * US OB BPP W NON-STRESS (10/23/2024 3:21 PM EDT) Anatomical Region Laterality Modality Other 10/23/2024 3:21 PM EDT Narrative 10/23/2024 3:24 [place] [address] Ultrasound Report Signed Patient: GEORGIE POND MR#: [id number] : 2000 Acct:[id number] Age/Sex: 24 / F ADM Date: 10/23/24 Loc: [place] [address]: Mya Jacob Ordering Physician: Mya Jacob Date of Service: 10/23/24 Procedure(s): US OB BPP w non-stress Accession Number(s): [id number] cc: Mya Jacob; Physician,Non-Staff MJacquelyn [place] [id number] Patient Name: GEORGIE POND MRN: [facility]:[id number] date: 2000 Sex: F Assigned Patient Location: [facility] Current Patient Location: [facility] Accession/Order Number: [id number] Exam Date: 10/23/2024 15:20 Report Date: 10/23/2024 15:21 At the request of: MYA JACOB Procedure: US OB BPP w non-stress Biophysical profile. Reason for exam: Incompetent cervix. COMPARISON: None. TECHNIQUE: Transabdominal imaging of the gravid uterus was obtained. FINDINGS: South Asian History Professor reports a BPP of 6 out of 8 with 0 out of 2 for breathing movements. MELLISA measures 20.9 cm. heart rate 145 bpm. US/US OB BPP w non-stress Impression: BPP 6 out of 8. Correlation with NST is recommended. Impression dictated by: Rufus Garcia Jr., D.O. 10/23/2024 3:21 PM Dictation Location: [place] [address] Electronically authenticated by: [id number] Y Date: 10/23/2024 15:21 Dictated By: Rufus Garcia M.D. Signed By: 10/23/24 1524 DD/ 1521 TD/TT: Aurist: Procedure Note Radiology, Radiologist, - 10/23/[address] [address] Ultrasound Report Signed Patient: GEORGIE POND TMR#: [id number] : 2000Acct:[id number] Age/Sex: 24 / FADM Date: 10/23/24 Loc: [facility] 250-[address]: Mya Jacob Ordering Physician: Mya Jacob Date of Service: 10/23/24 Procedure(s): US OB BPP w non-stress Accession Number(s): [id number] cc: Mya Jacob; Physician,Non-Staff M.Lee The [place] [id number] Patient Name: GEORGIE POND MRN: [id number]:[id number] date: 2000 Sex: F Assigned Patient Location: [facility] Current Patient Location: [facility] Accession/Order Number: [id number] Exam Date: 10/23/2024 15:20 Report Date: 10/23/2024 15:21 At the request of: MYA JACOB Procedure: US OB BPP w non-stress Biophysical profile. Reason for exam: Incompetent cervix. COMPARISON: None. TECHNIQUE: Transabdominal imaging of the gravid uterus was obtained. FINDINGS: South Asian History Professor reports a BPP of 6 out of 8 with 0 out of 2 forfetal breathing movements. MELLISA measures 20.9 cm. heart rate 145 bpm. US/US OB BPP w non-stress Impression: BPP 6 out of 8. Correlation with NST is recommended. Impression dictated by: Rufus Garcia Jr., D.O. 10/23/2024 3:21 PM Dictation Location: [place] [address] Electronically authenticated by: [id number] Y Date: 5:21 Dictated By: Rufus Garcia M.D. Signed By:10/23/24 1524 DD/ 1521 TD/TT: Aurist: Mya RIOS [facility] Final Result documented in this encounter Visit Diagnoses Not on filedocumented in this encounter
--- OUTSIDE RECORDS SUMMARY | 2024-10-27 13:59 | XMS_ITS | Encounter Summary ---
Author Organization [facility] Address [address] [facility] [place] [address] Care Team Providers Care Fur Dry Cleaner Hand Name Role Phone Unavailable Primary Care Provider Unavailabl e Encounter Details Date Type Department Care Team (Late Contact Info) Description 12/14/2022 Abstract [facility] OB [address] [place] [address] Osmany Bella DO [facility] [place] [address] Social History Tobacco [...] Description 10/28/2024 2:30 PM EDT Routine N[facility] OB [address] [place] [address] Osmany Bella DO [facility] [place] [address] documented as of this encounter Visit Diagnoses Not on filedocumented in this encounter
--- OUTSIDE RECORDS SUMMARY | 2024-10-27 13:59 | XMS_ITS | Encounter Summary ---
Author Organization [facility] Address [address] [facility] [place] [address] Care Team Providers Care Student Services Rep Name Role Phone Unavailable Primary Care Provider Unavailabl e Encounter Details Date Type Department Care Team (Late Contact Info) Description 10/23/2024 Clinisync Result Encounter NOMS External Department Unsolicited Mya Jacob PA [address] [facility] [address] [place], [place] [address] Social History Tobacco Use Types Packs/Day Years [...] [address] [facility] [place] [address] Osmany Bella, DO [address] [facility] [address] [place], [place] [address] documented as of this encounter Procedures Procedure Name Priority Date/Time Associated Diagnosis Comments US OB GROWTH 10/23/2024 3:29 PM EDT documented in this encounter Results * US OB GROWTH (10/23/2024 3:29 PM EDT) Anatomical Region Laterality Modality Other 10/23/2024 3:29 PM EDT Narrative 10/23/2024 3:31 PM EDT The [address] [address] Ultrasound Report Signed Patient: GEORGIE POND MR#: [id number] : 2000 Acct:[id number] Age/Sex: 24 / F ADM Date: 10/23/24 Loc: US Attending Dr: Mya Jacob Ordering Physician: Mya Jacob Date of Service: 10/23/24 Procedure(s): US OB growth Accession Number(s): [id number] cc: Mya Jacob; Physician,Non-Staff M.Lee The [address] [address] Patient Name: GEORGIE POND MRN: [facility]:[id number] date: 2000 Sex: F Assigned Patient Location: [facility] Current Patient Location: Accession/Order Number: [id number] Exam Date: 10/23/2024 15:27 Report Date: 10/23/2024 [...] Jr., D.O. 10/23/2024 3:29 PM Dictation Location: [place] [address] Electronically authenticated by: [id number] Y Date: 10/23/2024 15:29 Dictated By: Rufus Garcia M.D. Signed By: 10/23/24 1531 DD/ 1529 TD/TT: Melt Superintendant: Procedure Note Radiology, Radiologist, - 10/23/[address] [address] Ultrasound Report Signed Patient: GEORGIE POND TMR#: [id number] : 2000Acct:[id number] Age/Sex: 24 / FADM Date: 10/23/24 Loc: US Attending Dr: Mya Jacob Ordering Physician: Mya Jacob Date of Service: 10/23/24 Procedure(s): US OB growth Accession Number(s): [id number] cc: Mya Jacob; Physician,Non-Staff M.DCynthia [address] [address] Patient Name: GEORGIE POND MRN: [facility]:[id number] date: 2000 Sex: F Assigned Patient Location: [facility] Current Patient Location: Accession/Order Number: [id number] Exam Date: 10/23/2024 15:27 Report Date: 10/23/2024 [...] Jr., D.O. 10/23/2024 3:29 PM Dictation Location: [place] [address] Electronically authenticated by: [id number] Y Date: 5:29 Dictated By: Rufus Garcia M.D. Signed By:10/23/24 1531 DD/ 1529 TD/TT: Melt Superintendant: us Mya RIOS [facility] Final Result documented in this encounter Visit Diagnoses Not on filedocumented in this encounter
--- OUTSIDE RECORDS SUMMARY | 2024-10-27 13:59 | XMS_ITS | Encounter Summary ---
Author Organization [employer] tem Address [id number] [address] [place] [address] Care Team Providers Care Weld Technician Name Role Phone No Pcp, No Pcp Primary Care Provider Unavailabl e Encounter Details Date Type Department Care Team (Late st Contact Info) Description 05/23/2021 Telephone [facility] [address] [place] [address] [address] Mona Delvalle CMA Social History [...] often do you attend chur ch or church services? Never 03/26/2021 Do you belong to any clubs o r organizations such as hinduism groups, unions, fraternal or athletic groups, or [...] Answer Date Recorded Total Score 5 05/25/2021 [facility] [place] of Occupat ional Health - Occupational Stress [...] documented as of this encounter Care Teams Weld Technician Relationship Specialty Start Date End Date No Pcp, No Pcp RYLIE [place] [address] PCP - General Family Medicine 09/01/24 documented as of this encounter
--- OUTSIDE RECORDS SUMMARY | 2024-10-27 13:59 | XMS_ITS | Encounter Summary ---
Author Organization [facility] Address [facility] [place][id number] [address] [place] [address] Care Team Providers Care Patient Care Provider Name Role Phone No Pcp, No Pcp Primary Care Provider Unavailabl e Encounter Details Date Type Department Care Team (Late st Contact Info) Description 01/09/2023 Orders Only [facility]aternal- Medicine at [facility] [address] [place] [phone] Ref Prov, [place] [address] Social History Tobacco Use Types Packs/Day Years [...] any clubs o r organizations such as latter-day groups, unions, fraternal or athletic groups, or [...] Answer Date Recorded Total Score 15 08/03/2021 [facility] of Occupat ional Health - Occupational [...] Recorded Do you need help finding a [facility] career [facility] and/or a training program? [...] documented as of this encounter Care Teams Patient Care Provider Relationship Specialty Start Date End Date No Pcp, No Pcp RYLIE [place] [address] PCP - General Family Medicine 09/01/24 documented as of this encounter
--- OUTSIDE RECORDS SUMMARY | 2024-10-27 13:59 | XMS_ITS | Encounter Summary ---
Author Organization [employer] Address [facility] [place]-[id number] [address] [place] [address] Care Team Providers Care Production Technician Name Role Phone No Pcp, No Pcp Primary Care Provider Unavailabl e Encounter Details Date Type Department Care Team (Late st Contact Info) Description 09/09/2023 Orders Only [facility] [address] [place] [address] Estefany Hilario LPN Encounter for [...] any clubs o r organizations such as scientologist groups, unions, fraternal or athletic groups, or [...] Answer Date Recorded Total Score 4 08/29/2023 [facility] of Occupat ional Health - [...] things needed for daily living? No 03/26/2021 Calhoun Depression Scale Answer Date Recorded Calhoun Depression Scale Total 13 09/12/2023 The thought [...] SEE ATTACHED SCANNED REPORT us Reyna Diaz TREE FELLER OPERATOR-CNM LAB BLOOD ORDERABLES Fin al Result MANUALLY [...] as of this encounter Care Teams Production Technician Relationship Specialty Start Date End Date No Pcp, [place] [address] PCP - General Family Medicine 09/01/24 documented as of this encounter
--- OUTSIDE RECORDS SUMMARY | 2024-10-27 13:59 | XMS_ITS | Encounter Summary ---
Author Organization [employer] tem Address [id number] [address] [place] [address] Care Team Providers Care Coin Teller Name Role Phone No Pcp, No Pcp Primary Care Provider Unavailabl e Reason for Visit * Reason Comments Med Refill Encounter Details Date Type Department Care Team (Late st Contact Info) Description 11/12/2020 Refill [facility] [address] [place] [phone] Iona Layne, CAD SPECIALIST-BANANA EXPERT [address] [place] [address] Hematemesis without nausea Social History [...] documented as of this encounter Care Teams Coin Teller Relationship Specialty Start Date End Date No Pcp, [place] [address] PCP - General Family Medicine 09/01/24 documented as of this encounter
--- OUTSIDE RECORDS SUMMARY | 2024-10-27 13:59 | XMS_ITS | Encounter Summary ---
Author Organization [employer] Address [facility]-[id number] [address] [place] [address] Care Team Providers Care Gas Tender Name Role Phone No Pcp, No Pcp Primary Care Provider Unavailabl e Encounter Details Date Type Department Care Team (Late st Contact Info) Description 10/21/2023 Telephone [facility] [address] [place] [address] Dania Olsen RMA Social History [...] often do you attend chur ch or confucianism services? Never 03/26/2021 Do you belong to any clubs o r organizations such as judaism groups, unions, fraternal or athletic groups, or [...] Date Recorded Total Score 4 08/29/2023 [facility] [place] of Occupat ional Health - Occupational Stress [...] things needed for daily living? No 03/26/2021 Jackpot Depression Scale Answer Date Recorded Jackpot Depression Scale Total 13 09/12/2023 The thought [...] Recorded Do you need help finding a [facility] career center and/or a training [...] vision and passed out and is in [facility].As she was talking to me they came [...] documented as of this encounter Care Teams Gas Tender Relationship Specialty Start Date End Date No Pcp, [place] [address] PCP - General Family Medicine 09/01/24 documented as of this encounter
--- OUTSIDE RECORDS SUMMARY | 2024-10-27 13:59 | XMS_ITS | Encounter Summary ---
Author Organization [facility] Address [address] [place] [address] Care Team Providers Care Linseed Oil Temperer Name Role Phone Unavailable Primary Care Provider Unavailabl e Encounter Details Date Type Department Care Team (Late st Contact Info) Description 10/23/2024 Clinisync Result Encounter [facility] External Department Unsolicited Zhane Bella, DO [address] [place] [address] Social History Tobacco Use Types Packs/Day Years [...] PM EDT Routine [facility] [address] [place] [place] [phone] Zhane Bella, [facility] [place] [address] documented as of this encounter Procedures Procedure Name Priority Date/Time Associated Diagnosis Comments US OB CERVICAL LENGTH 10/23/2024 4:04 PM EDT documented in this encounter Results * US OB CERVICAL LENGTH (10/23/2024 4:04 PM EDT) Anatomical Region Laterality Modality Other 10/23/2024 4:04 PM EDT Narrative 10/23/2024 4:06 [place] [address] Ultrasound Report Signed Patient: GEORGIE POND MR#: [id number] : 2000 Acct:[id number] Age/Sex: 24 / F ADM Date: 10/23/24 Loc: US Attending Dr: Mya Kaplan Ordering Physician: Zhane Bella D.O. Date of Service: 10/23/24 Procedure(s): US OB cervical length Accession Number(s): [id number] cc: Zhane Bella D.O.; Physician,Non-Staff Adriana [place] [id number] Patient Name: GEORGIE POND MRN: [id number] date: 2000 Sex: F Assigned Patient Location: US Current Patient Location: Accession/Order Number: [id number] Exam Date: 10/23/2024 16:03 Report Date: 10/23/2024 [...] Pulido M.D. 10/23/2024 4:04 PM Dictation Location: [place] [address] Electronically authenticated by: [id number] Y Date: 10/23/2024 16:04 Dictated By: Maulik Pulido D.O. Signed By: 10/23/24 1606 DD/ 1604 TD/TT: Building Construction Foreman: Procedure Note Radiology, Radiologist, MD - 10/23/2024 [place] [address] Ultrasound Report Signed Patient: GEORGIE POND TMR#: [id number] : 2000Acct:[id number] Age/Sex: 24 / FADM Date: 10/23/24 Loc: US Attending Dr: Mya Kaplan Ordering Physician: Zhane Bella D.O. Date of Service: 10/23/24 Procedure(s): US OB cervical length Accession Number(s): [id number] cc: Zhane Bella D.O.; Physician,Non-Staff [place] [address] Patient Name: GEORGIE POND MRN: [id number] date: 2000 Sex: F Assigned Patient Location: US Current Patient Location: Accession/Order Number: [id number] Exam Date: 10/23/2024 16:03 Report Date: 10/23/2024 16:04 At the request of: ZHANE BELLA DO Procedure: US OB cervical length Ultrasound assessment of the uterine cervix. HISTORY: Incompetent cervix. The cervix has a length of 4.0 cm. Cervical os closed. heart [id number] bpm. Cephalic presentation with longitudinal lie. US/US OB cervical length IMPRESSION: 4 cm cervical length. Impression dictated by: Maulik Pulido M.D. 10/23/2024 4:04 PM Dictation Location: [place] [address] Electronically authenticated by: [id number] Y Date: 6:04 Dictated By: Maulik Pulido D.O. Signed By:10/23/24 1606 DD/ 1604 TD/TT: Building Construction Foreman: us Zhane Bella DO [facility] Final Result documented in this encounter Visit Diagnoses Not on filedocumented in this encounter
--- OUTSIDE RECORDS SUMMARY | 2024-10-27 13:59 | XMS_ITS | Encounter Summary ---
Author Organization [facility] Address [address] [place] [address] Care Team Providers Care Taxation Inspector Name Role Phone Unavailable Primary Care Provider Unavailabl e Encounter Details Date Type Department Care Team (Late Contact Info) Description 08/28/2024 Results Follow-Up [facility] OB [address] [place] [address] Marie Cuellar LPN [address] [place] [phone] Social History Tobacco Use Types Packs/Day Years [...] Upcoming Encounters Date Type Department Care Team ([facility] Contact Info) Description 10/28/2024 2:30 PM EDT Routine [facility] OB [address] [place] [address] Osmany Bella, DO [address] [facility] [address]harth[address] [place], [facility]11 documented as of this encounter Visit Diagnoses Not on filedocumented in this encounter
--- OUTSIDE RECORDS SUMMARY | 2024-10-27 13:59 | XMS_ITS | Encounter Summary ---
Author Organization [facility] Address [address] [facility] [place] [address] Care Team Providers Care Satin Finisher Name Role Phone Unavailable Primary Care Provider Unavailabl e Encounter Details Date Type Department Care Team (Late st Contact Info) Description 07/07/2024 Abstract [facility] OB [address] [place] [address] Osmany Bella, DO [address] [place], [facility]11 Social History Tobacco Use Types Packs/Day [...] Description 10/28/2024 2:30 PM EDT Routine [facility] OB [address] [place] [address] Osmany Bella, DO [address] [place] [address] documented as of this encounter Visit Diagnoses Not on filedocumented in this encounter
--- OUTSIDE RECORDS SUMMARY | 2024-10-27 13:59 | XMS_ITS | Encounter Summary ---
Author Organization [employer] Address [id number] [address] [place] [address] Care Team Providers Care Chief Engineer Production Name Role Phone No Pcp, No Pcp Primary Care Provider Unavailabl e Encounter Details Date Type Department Care Team (Late st Contact Info) Description 10/05/2020 Telephone [facility] [address] [place] [address] [place] [address] Cooper Goff CMA Social History [...] documented as of this encounter Care Teams Chief Engineer Production Relationship Specialty Start Date End Date No Pcp, [place] [address] PCP - General Family Medicine 09/01/24 documented as of this encounter
--- OUTSIDE RECORDS SUMMARY | 2024-10-27 13:59 | XMS_ITS | Encounter Summary ---
Author Organization [employer] tem Address [facility]-[id number] [address] [place] [address] Care Team Providers Care Veterans Adviser Name Role Phone No Pcp, No Pcp Primary Care Provider Unavailabl e Encounter Details Date Type Department Care Team (Late st Contact Info) Description 09/17/2023 Telephone [facility] [address] [place] [address] Tameka Abebe Social History Tobacco [...] often do you attend chur ch or roman catholic services? Never 03/26/2021 Do you belong to [...] Answer Date Recorded Total Score 4 08/29/2023 [facility] [place] of Occupat ional Health - Occupational Stress [...] things needed for daily living? No 03/26/2021 Linden Depression Scale Answer Date Recorded Linden Depression Scale Total 13 09/12/2023 The thought [...] Recorded Do you need help finding a [facility] career center and/or a training program? No [...] Tums as needed. She also needs to bladder changer to frequent small meals, she should [...] documented as of this encounter Care Teams Veterans Adviser Relationship Specialty Start Date End Date No Pcp, [place] [address] PCP - General Family Medicine 09/01/24 documented as of this encounter
--- OUTSIDE RECORDS SUMMARY | 2024-10-27 13:59 | XMS_ITS | Encounter Summary ---
Author Organization [employer] tem Address [facility]-[id number] [address] [place] [address] Care Team Providers Care Library Associate Name Role Phone No Pcp, No Pcp Primary Care Provider Unavailabl e Encounter Details Date Type Department Care Team (Late st Contact Info) Description 05/15/2021 Telephone [facility] [address] [place] [address] [place] [address] Mona Delvalle CMA Social History [...] any clubs o r organizations such as episcopalian groups, unions, fraternal or athletic groups, or [...] Answer Date Recorded Total Score 13 03/26/2021 [facility] [place] of Occupat ional Health - Occupational Stress [...] EST Can we get her results from [facility] for COVID test I don't see [...] documented as of this encounter Care Teams Library Associate Relationship Specialty Start Date End Date No Pcp, [place] [address] PCP - General Family Medicine 09/01/24 documented as of this encounter
--- OUTSIDE RECORDS SUMMARY | 2024-10-27 13:59 | XMS_ITS | Encounter Summary ---
Author Organization [facility] Address [address] [place] [address] Care Team Providers Care Blank Driller Name Role Phone Unavailable Primary Care Provider Unavailabl e Encounter Details Date Type Department Care Team (Late Contact Info) Description 07/07/2024 External Result Encounter [facility] OB [address] [place] [address] Osmany Bella, DO [address] [place], [facility]11 Social History Tobacco Use Types Packs/Day Years [...] EDT Routine [place] [address] Osmany Bella, DO [address] [place], [facility]11 documented as of this encounter Procedures Procedure [...] TYPE AUTOMATED DIFFERENTIAL [facility] Comment: PERFORMED AT [facility] [address],[place] [address] 09/01/2024 3:48 PM EDT 09/01/2024 9:40 PM EDT us Osmany Jena DO LAB BLOOD ORDERABLES Final Resul t [facility] * (ABNORMAL) RECURRENT VAGINITIS (HTRX) (08/12/2024 4:11 PM EDT) [facility] ATOPOBIUM VAGINAE 23.789(A) 19.961 - 24.689 ppm 08/13/2024 6:52 AM EDT [facility] ATOPOBIUM VAGINAE Detected(A) 19.961 - 24.689 ppm 08/13/2024 6:52 AM EDT [facility] BVAB 2,3 (BACTERIAL VAGINOSIS ASSOCIATED BACTERIA 2, 3); MOBILUNCUS SPP 20.226(A) 19.961 - 24.689 ppm 08/13/2024 6:52 AM EDT [facility] BVAB 2,3 (BACTERIAL VAGINOSIS ASSOCIATED BACTERIA 2, 3); MOBILUNCUS SPP Detected(A) 19.961 - 24.689 ppm 08/13/2024 6:52 AM EDT [facility] MIGUEL ALBICANS, PARAPSILOSIS, TROPICALIS 0.000 19.961 - 30.770 ppm 08/13/2024 6:52 AM EDT [facility] MIGUEL ALBICANS, PARAPSILOSIS, TROPICALIS Not Detected 19.961 - 30.770 ppm 08/13/2024 6:52 AM EDT [facility] MIGUEL GLABRATA 0.000 23.000 - 32.138 ppm 08/13/2024 6:52 AM EDT [facility] MIGUEL GLABRATA Not Detected 23.000 - 32.138 ppm 08/13/2024 6:52 AM EDT [facility] MIGUEL KRUSEI 0.000 23.000 - 32.271 ppm 08/13/2024 6:52 AM EDT [facility] MIGUEL KRUSEI Not Detected 23.000 - 32.271 ppm 08/13/2024 6:52 AM EDT [facility] CHLAMYDIA TRACHOMATIS 0.000 23.000 - 31.467 ppm 08/13/2024 6:52 AM EDT [facility] CHLAMYDIA TRACHOMATIS Not Detected 23.000 - 31.467 ppm 08/13/2024 6:52 AM EDT [facility] GARDNERELLA VAGINALIS 26.712(A) 19.961 - 24.689 ppm 08/13/2024 6:52 AM EDT [facility] GARDNERELLA VAGINALIS Detected(A) 19.961 - 24.689 ppm 08/13/2024 6:52 AM EDT [facility] MEGASPHAERA (TYPES 1, 2) 15.626(A) 19.961 - 24.689 ppm 08/13/2024 6:52 AM EDT [facility] MEGASPHAERA (TYPES 1, 2) Detected(A) 19.961 - 24.689 ppm 08/13/2024 6:52 AM EDT [facility] NEISSERIA GONORRHOEAE 0.000 23.000 - 32.117 ppm 08/13/2024 6:52 AM EDT [facility] NEISSERIA GONORRHOEAE Not Detected 23.000 - 32.117 ppm 08/13/2024 6:52 AM EDT [facility] TRICHOMONAS VAGINALIS 0.000 23.000 - 32.119 ppm 08/13/2024 6:52 AM EDT [facility] TRICHOMONAS VAGINALIS Not Detected 23.000 - 32.119 ppm 08/13/2024 6:52 AM EDT [facility] MYCOPLASMA GENITALIUM 0.000 19.961 - 24.689 ppm 08/13/2024 6:52 AM EDT [facility] MYCOPLASMA GENITALIUM Not Detected 19.961 - 24.689 ppm 08/13/2024 6:52 AM EDT [facility] ERMB, C; MEFA 23.273(A) 23.000 - 27.611 ppm 08/13/2024 6:52 AM EDT [facility] ERMB, C; MEFA Detected(A) 23.000 - 27.611 ppm 08/13/2024 6:52 AM EDT [facility] TET B, TET M 27.416(A) 23.000 - 27.778 ppm 08/13/2024 6:52 AM EDT [facility] TET B, TET M Detected(A) 23.000 - 27.778 ppm 08/13/2024 6:52 AM EDT [facility] Tissue 08/12/2024 4:11 PM EDT 08/13/2024 1:36 AM EDT us Osmany Bella DO LAB BLOOD ORDERABLES Final Resul t [facility] [address] [place] [address] * AFP SINGLE MARKER SCRN, MATERNAL,SERUM ([facility]) (07/27/2024 3:10 PM EDT) Pathologist [facility] AFP SINGLE MARKER SCRN, MATERNAL, SERUM SEE [...] repeat testing Initial testing Physician Phone Number [phone] GENERAL TEST INFORMATION See Note This screening [...] its performance characteristics determined by [facility] in a manner consistent with CLIA requirements. This test has not been cleared or approved by the U.S. Food and Drug Administration. Test Performed by: [facility] [address] [place] [id number] Plant Engineering Manager: Gamaliel Au Ph.D.; CLIA# [id number] PERFORMED AT [address] [place] [address] 07/27/2024 3:10 PM EDT 07/27/2024 3:12 PM EDT Osmany Jena DO LAB BLOOD ORDERABLES Final Resul t Performing Organization Address City/[facility]/ZIP Co de Phone Number [facility] * SYPHILIS TOTAL ([facility]) (07/27/2024 3:10 PM EDT) Pathologist [facility] SYPHILIS TOTAL <0.2 0.0 - 0.8 AI [facility] Comment: NON REACTIVE No serologic evidence of infection to Treponema pallidum (syphilis). Repeat testing may be considered in patients with suspected acute or primary syphilis in 2 to 4 weeks. PERFORMED [address], [place] [address] 07/27/2024 3:10 PM EDT 07/27/2024 3:12 PM EDT Osmany Jena DO LAB BLOOD ORDERABLES Final Resul t Performing Organization Address [facility] Co de Phone Number [facility] * Rubella antibody, IgG (07/27/2024 3:10 PM EDT) [facility] RUBELLA IGG 15 IU/mL [facility] Comment: Interpretation-------- <8 NEGATIVE-considered Not Immune 8-9 EQUIVOCAL-consider retesting with new specimen >9 POSITIVE-considered Immune PERFORMED AT [address],[place] [address] 07/27/2024 3:10 PM EDT 07/27/2024 3:12 PM EDT Osmany Jena DO LAB BLOOD ORDERABLES Final Resul t Performing Organization Address City/[facility]/ZIP Co de Phone Number [facility] * Hepatitis C antibody (07/27/2024 3:10 PM EDT) Pathologist [facility] ANTI HCV W/PCR REFLEX Non-Reacti ve Non-Reacti ve [facility] Comment: NEW TEST METHOD NOTE If recent infection suspected, recommend repeat testing (>2 months). Qidtwt-cd-zdgujs ratio is <1.00. PERFORMED AT [address],[place] [address] 07/27/2024 3:10 PM EDT 07/27/2024 3:12 PM EDT Osmany Jena DO LAB BLOOD ORDERABLES Final Resul t [facility] * Hepatitis B surface antigen (07/27/2024 3:10 PM EDT) [facility] HEPATITIS B SURG AG Non-Reacti ve Non-Reacti ve [facility] Comment: NEW TEST METHOD PERFORMED AT [address],[place] [address] 07/27/2024 3:10 PM EDT 07/27/2024 3:12 PM EDT [employer] DO LAB BLOOD ORDERABLES Final Resul t [facility] * DRUG SCREEN, URINE (07/27/2024 3:10 PM EDT) Pathologist [facility] AMPHETAMINE/METHAMP Negative Negative [facility] Comment:AMPH/METH screening cut [...] monitoring or management of patients. PERFORMED AT [address],[place] [address] 07/27/2024 3:10 PM EDT 07/27/2024 3:12 PM EDT us Osmany Jena DO LAB BLOOD ORDERABLES Final Resul t Performing Organization Address City/[facility]/ZIP Co de Phone Number [facility] * TSH ([facility]) (07/27/2024 3:10 PM EDT) TSH 1.68 0.49 - 4.67 uIU/mL [facility] Comment:PERFORMED AT [address],[place] [address] 07/27/2024 3:10 PM EDT 07/27/2024 3:12 PM [...] AVERAGE GLUCOSE 85 mg/dL [facility] Comment:PERFORMED AT [facility] [address],[place] [address] 07/27/2024 3:10 PM EDT 07/27/2024 3:12 PM [...] 0.0 - 0.2 X10E9/L [facility] Comment:PERFORMED AT [facility] [address],[place] [address] 07/27/2024 3:10 PM EDT 07/27/2024 3:12 PM EDT us Osmany Jena DO LAB BLOOD ORDERABLES Final Resul t [facility] * US OB follow up transabdominal approach (07/07/2024 2:55 PM EST) Anatomical Region Laterality Modality Body Ultrasound 07/07/2024 2:55 PM EST Narrative 07/07/2024 2:54 PM EST THIS EXAM WAS PERFORMED AT [facility] HISTORY: Vaginal bleeding in COMPARISON: 05/15/2024 EVALUATION: [...] - 07/07/2024 THIS EXAM WAS PERFORMED AT [facility] HISTORY: Vaginal bleeding in COMPARISON: 05/15/2024 EVALUATION: [...]
--- OUTSIDE RECORDS SUMMARY | 2024-10-27 13:59 | XMS_ITS | Encounter Summary ---
Author Organization [facility] Address [address] [facility] [place] [address] Care Team Providers Care Rubber Goods Inspector Tester Name Role Phone Unavailable Primary Care Provider Unavailabl e Encounter Details Date Type Department Care Team (Late Contact Info) Description 11/07/2022 Abstract [facility] [address] [place] [address] Osmany Bella [place] [facility] [place] [address] Social History Tobacco Use Types Packs/Day [...] Description 10/28/2024 2:30 PM EDT Routine [facility] [address] [place] [address] Osmany Bella [place] [facility] [place] [address] documented as of this encounter Visit Diagnoses Not on filedocumented in this encounter
--- OUTSIDE RECORDS SUMMARY | 2024-10-27 13:59 | XMS_ITS | Encounter Summary ---
Author Organization [employer] Address [id number] [address] [place] [address] Care Team Providers Care Plating And Point Assembly Supervisor Name Role Phone No Pcp, No Pcp Primary Care Provider Unavailabl e Encounter Details Date Type Department Care Team (Late st Contact Info) Description 09/11/2023 Orders Only [facility] [address] [place] [address] Estefany Hilario LPN Screening for [...] any clubs o r organizations such as jainism groups, unions, fraternal or athletic groups, or [...] Answer Date Recorded Total Score 4 08/29/2023 [facility] of Occupat ional Health - Occupational Stress [...] things needed for daily living? No 03/26/2021 Success Depression Scale Answer Date Recorded Success Depression Scale Total 13 09/12/2023 The thought [...] SEE ATTACHED SCANNED REPORT us Reyna Diaz PRODUCTION ASSOCIATE-[facility] LAB BLOOD ORDERABLES Fin al Result MANUALLY [...] documented as of this encounter Care Teams Plating And Point Assembly Supervisor Relationship Specialty Start Date End Date No Pcp, [place] [id number] PCP - General Family Medicine 09/01/24 documented as of this encounter
--- OUTSIDE RECORDS SUMMARY | 2024-10-27 13:59 | XMS_ITS | Clinical Summary ---
Author Organization [facility] Address [address] [place] [address] Care Team Providers Care Air Traffic Systems Technician Name Role Phone Unavailable Primary Care [...] to complete this topic Insurance [place]ICAID [place] [facility]
--- OUTSIDE RECORDS SUMMARY | 2024-10-27 13:59 | XMS_ITS | Encounter Summary ---
Author Organization [facility] Address [id number] [address] [place] [address] Care Team Providers Care Dopeman Name Role Phone No Pcp, No Pcp Primary Care Provider Unavailabl e Encounter Details Date Type Department Care Team (Late st Contact Info) Description 05/10/2021 Telephone [facility] [address] [place] [address] Kristyn Gutierrez CMA Social History [...] any clubs o r organizations such as pentecostal groups, unions, fraternal or athletic groups, or [...] Answer Date Recorded Total Score 13 03/26/2021 [facility] of Occupat ional Health - Occupational Stress [...] covid test please send order to [facility]. [phone] documented in this encounter Plan of Treatment [...] documented as of this encounter Care Teams Dopeman Relationship Specialty Start Date End Date No Pcp, [place] [id number] PCP - General Family Medicine 09/01/24 documented as of this encounter
--- OUTSIDE RECORDS SUMMARY | 2024-10-27 13:59 | XMS_ITS | Encounter Summary ---
Author Organization [employer] Address [id number] [address] [place] [address] Care Team Providers Care Manager Of Marketing Name Role Phone No Pcp, No Pcp Primary Care Provider Unavailabl e Encounter Details Date Type Department Care Team (Late st Contact Info) Description 05/17/2021 Orders Only [facility] [address] [place] [address] [place] [address] Mona Delvalle CMA Body aches; [...] often do you attend chur ch or baptism services? Never 03/26/2021 Do you belong to any clubs o r organizations such as congregational groups, unions, fraternal or athletic groups, or [...] Answer Date Recorded Total Score 13 03/26/2021 [facility] [place] of Occupat ional Health - Occupational Stress [...] Negative Negative [facility] NASOPHARYNGEAL 05/11/2021 Loretta Brice APRN-BACK UP WORKER MICROBIOLOGY - GENE RAL ORDERABLES Final Result [...] as of this encounter Care Teams Manager Of Marketing Relationship Specialty Start Date End Date No Pcp, [place] [id number] PCP - General Family Medicine 09/01/24 documented as of this encounter
--- OUTSIDE RECORDS SUMMARY | 2024-10-27 13:59 | XMS_ITS | Encounter Summary ---
Author Organization [facility] Address [address] [place] [address] Care Team Providers Care Front End Mechanic Name Role Phone Unavailable Primary Care Provider Unavailabl e Encounter Details Date Type Department Care Team (Late Contact Info) Description 01/01/2023 Abstract [facility] [address] [place] [address] Osmany Bella DO [facility] [place] [address] Social History Tobacco Use Types Packs/Day [...] Description 10/28/2024 2:30 PM EDT Routine [facility] [address] [place] [address] Osmany Bella DO [facility] [place], [place] [id number] documented as of this encounter Visit Diagnoses Not on filedocumented in this encounter
--- OUTSIDE RECORDS SUMMARY | 2024-10-27 13:59 | XMS_ITS | Clinical Summary ---
Author Organization [facility] Address [address] [place] [address] Care Team Providers Care Associate Doctor Name Role Phone Unavailable Primary Care Provider Unavailabl e Allergies No known active allergies Medications MV & Min w/FA-DHA ( Gummies) 0.18-25 MG chewable tabletIndicatio ns:Vaginal bleeding affecting early ([facility]) Chew 1 each Daily 30 tablet 11 [...] Department Care Team Description 10/26/[address] [facility] [address] [place] [address] [place] [address] Zhane Bella, DO 10/26/2024 Clinisync Result Encounter NOMS External Department Unsolicited Zhane Bella, DO 10/24/2024 Clinisync Result Encounter NOMS External Department Unsolicited Zhane Bella, DO 10/23/2024 Clinisync Result Encounter [facility]OMS External Department Unsolicited Jena Zhane, DO 10/23/2024 Clinisync Result Encounter [facility]OMS External Department Unsolicited Mya Jacob PA 10/23/2024 Clinisync Result Encounter NOMS External Department Unsolicited Mya Jacob PA 10/21/2024 2:30 PM EDT Routine [facility] [address] [facility] [facility] [place] [address] Mya Jacob PA 35 weeks gestation of ([facility]); Third trimester ([facility]) 10/21/[address] [facility] [address] [facility] [facility] [place] [address] Mya Jacob PA 10/15/2024 3:30 PM EDT [facility] [address] [place] [address] [place] [address] Mya Jacob PA Third trimester ([facility]); 32 weeks gestation of ([facility]); H/O incompetent cervix, currently ([facility]); Noncompliant patient, third trimester ([facility]) 10/15/[address] [facility] [address] [facility] [place] [address] Mya Jacob PA 10/12/[address] [facility] [address] [facility] [place] [address] Christie Wiley LPN 10/02/[address] [facility] [address] [facility] [place] [address] Christie Wiley LPN 09/21/[address] [facility] [address] [place] [address] [place] [address] Christie Wiley, ANTELMO 2024 Telephone [facility] [address] [place] [address] Zhane Bella, DO 09/02/2024 2:40 PM EDT Routine [facility] [address] [place] [address] Zhane Bella, 28 weeks gestation of ([facility]) 09/02/2024 Clinisync Result Encounter NOMS External Department Unsolicited Zhane Bella, DO 09/02/2024 Clinisync Result Encounter NOMS External Department Unsolicited Zhane Bella, DO 09/02/2024 Clinisync Result Encounter NOMS External Department Unsolicited Zhane Bella, DO 09/01/20[address] [facility] [address] [place] [address] Christie Wiley, ORNAMENTAL METAL FABRICATOR APPRENTICE 08/28/2024 Results Follow-Up [facility] [address] [place] [address] Marie Cuellar, ORNAMENTAL METAL FABRICATOR APPRENTICE 08/14/[address] [facility] [address] [place] [address] Mayra Thompson MA BV (bacterial vaginosis) 08/14/2024 Telephone [facility] [address] [place] [address] Mayra Thompson MA 08/12/2024 2:50 PM EDT Routine [facility] [address] [place] [address] Zhane Bella, Well woman exam with routine gynecological exam; Vaginal discharge; STD exposure; Missed menses; , unspecified gestational age ([facility]); Diabetes mellitus screening; Flank pain 08/12/2024 Clinisync Result Encounter NOMS External Department Unsolicited Zhane Bella, DO 08/12/[address] [facility] [address] [place] [address] [place] [address] Zhane Bella DO 07/28/2024 2:30 PM EDT Ancillary Procedure [facility] [address] [place] [address] [place] [address] Screening, , for anatomic survey ([facility]) from Last 3 Months Family History Relation [...] 2:30 PM EDT [facility]ine [facility] [address] [place] [address] [place] [address] Zhane Bella, [address] [place] [address] Health Maintenance Due Date Last Done Comments [...] 10/24/2024 12:30 AM EDT [facility] UA (CLEAN/CATCH) ESCORT PATIENTS/MICRO IF IND. Routine 10/24/2024 12:30 AM EDT US OB CERVICAL LENGTH 10/23/2024 4:04 PM EDT US OB GROWTH 10/23/2024 3:29 PM EDT US OB BPP W NON-STRESS 10/23/2024 3:21 PM EDT POCT URINALYSIS DIPSTICK Routine 10/21/2024 3:08 PM EDT 35 weeks gestation of ([facility]) Third trimester ([facility]) CULTURE, URINE, ROUTINE Routine 10/02/2024 11:44 AM EDT Missed menses POCT URINALYSIS DIPSTICK Routine 09/02/2024 3:18 PM EDT 28 weeks gestation of ([facility]) US OB CERVICAL LENGTH 09/02/2024 11:52 AM EDT US OB PLACENTA 09/02/2024 11:52 AM EDT [facility] URINE MICROSCOPIC ONLY Routine 09/02/2024 11:20 AM EDT [facility] UA (CLEAN/CATCH) ESCORT PATIENTS/MICRO IF IND. Routine 09/02/2024 11:20 AM EDT CBC WITH AUTO DIFFERENTIAL Routine 09/01/2024 3:48 PM EDT POCT URINALYSIS DIPSTICK Routine 08/12/2024 4:46 PM EDT Well woman exam with routine gynecological exam RECURRENT VAGINITIS (HTRX) Routine 08/12/2024 4:11 PM EDT IGP,APTIMA HPV,AGE GDLN Routine 08/12/2024 2:58 PM EDT US OB 14+ WEEKS ANATOMY SCAN Routine 07/28/2024 3:42 PM EDT Screening, , for anatomic survey ([facility]) AFP SINGLE MARKER SCRN, MATERNAL,SERUM ([facility]) Routine [...] EDT Narrative 10/26/2024 8:17 AM EDT The [address] [address] Ultrasound Report Signed Patient: LAURA POND MR#: [id number] : 2000 Acct:[id number] Age/Sex: 24 / F ADM Date: Loc: [facility] 251-[address]: Zhane Bella D.O. Ordering Physician: Zhane Bella D.O. Date of Service: 10/24/24 Procedure(s): US OB BPP w non-stress Accession Number(s): [id number] cc: Zhane Bella D.O.; Physician,Non-Staff [place] [address] Patient Name: LAURA POND MRN: [id number] date: 2000 Sex: F Assigned Patient Location: [facility] Current Patient Location: Accession/Order Number: [id number] Exam Date: 10/26/2024 07:43 Report Date: 10/26/2024 [...] Souza M.D. 10/26/2024 8:15 AM Dictation Location: [place] [address] Electronically authenticated by: [id number] Y Date: 10/26/2024 08:15 Dictated By: Helena De Souza M.D. Signed By: 10/26/2417 DD/ TD/TT: Lawn Care Technician: Procedure Note Radiology, Radiologist, MD - 10/26/2024 [place] [address] Ultrasound Report Signed Patient: LAURA POND TMR#: [id number] : 2000Acct:[id number] Age/Sex: 24 M Date: Loc: [facility] 251-[address]: Zhane Bella D.O. Ordering Physician: Zhane Bella D.O. Date of Service: 10/24/24 Procedure(s): US OB BPP w non-stress Accession Number(s): [id number] cc: Zhane Bella D.O.; Physician,Non-Staff Adriana The [place] [address] Patient Name: LAURA POND MRN: [id number] date: 2000 Sex: F Assigned Patient Location: [facility] Current Patient Location: Accession/Order Number: [id number] Exam Date: 10/26/2024 07:43 Report Date: 10/26/2024 [...] Souza M.D. 10/26/2024 8:15 AM Dictation Location: [place] [address] Electronically authenticated by: [id number] Y Date: 508:15 Dictated By: Helena De Souza M.D. Signed By:10/26/2417 DD/ 4 TD/TT: Lawn Care Technician: us Zhane Jena DO CLINISYNC IMAGING Final Result * (ABNORMAL) [facility] CMP (CMP) (FOR REMOTE [facility] USE) (10/24/2024 2:03 AM EDT) SODIUM 138 136 - 145 mmol/L [facility] POTASSIUM 3.6 3.5 - 5.1 mmol/L [facility] CHLORIDE 104 98 - 107 mmol/L [facility] CARBON DIOXIDE 24.0 21.0 - 32.0 mmol/L [facility] ANION GAP 13.6 TB[facility] GLUCOSE 87 74 - 106 mg/dL [facility] BLOOD UREA NITROGEN 5.0(L) 7.0 - 18.0 mg/dL [facility] CREATININE 0.40(L) 0.55 - 1.02 mg/dL [facility] TB[facility] EGFR-AF LIBYAN >60 >=60 mL/min/1. 73m 2 TB[facility] TBH EGFR-NON AF LIBYAN >60 >=60 mL/min/1. 73m 2 [facility] BUN [...] DO CLINISYNC Final Result Performing Organization Address City/[facility]/ZIP Co de Phone Number CLINISYNC [facility] * [...] DO CLINISYNC Final Result Performing Organization Address City/[facility]/ZIP Co de Phone Number [facility] * (ABNORMAL) [facility] UA (CLEAN/CATCH) ESCORT PATIENTS/MICRO IF IND. (10/24/2024 12:30 AM EDT) Only [...] us Zhane Bella DO CLINISYKYLER Final Result [facility] * US OB CERVICAL LENGTH (10/23/2024 4:04 PM EDT) Only the most recent of2 resultswithin the time period is included. Anatomical Region Laterality Modality Other 10/23/2024 4:04 PM EDT Narrative 10/23/2024 4:06 [place] [address] Ultrasound Report Signed Patient: LAURA POND MR#: [id number] : 2000 Acct:[id number] Age/Sex: 24 / F ADM Date: 10/23/24 Loc: US Attending Dr: Mya Jacob Ordering Physician: Zhane Bella D.O. Date of Service: 10/23/24 Procedure(s): US OB cervical length Accession Number(s): [id number] cc: Zhane Bella D.O.; Physician,Non-Staff M.D. [place] [address] Patient Name: LAURA POND MRN: [id number] date: 2000 Sex: F Assigned Patient Location: US Current Patient Location: Accession/Order Number: [id number] Exam Date: 10/23/2024 16:03 Report Date: 10/23/2024 [...] Pulido M.D. 10/23/2024 4:04 PM Dictation Location: [place] [address] Electronically authenticated by: [id number] Y Date: 10/23/2024 16:04 Dictated By: Maulik Pulido D.O. Signed By: 10/23/24 1606 DD/ 1604 TD/TT: Lawn Care Technician: Procedure Note Radiology, Radiologist, MD - 10/23/2024 [place] [address] Ultrasound Report Signed Patient: LAURA POND TMR#: [id number] : 2000Acct:[id number] Age/Sex: 24 / FADM Date: 10/23/24 Loc: US Attending Dr: Mya Jacob Ordering Physician: Zhane Bella D.O. Date of Service: 10/23/24 Procedure(s): US OB cervical length Accession Number(s): [id number] cc: Zhane Bella D.O.; Physician,Non-Staff Adri[place] The [place] [address] Patient Name: LAURA POND MRN: [id number] date: 2000 Sex: F Assigned Patient Location: US Current Patient Location: Accession/Order Number: [id number] Exam Date: 10/23/2024 16:03 Report Date: 10/23/2024 16:04 At the request of: ZHANE BELLA DO Procedure: US OB cervical length Ultrasound assessment of the uterine cervix. HISTORY: Incompetent cervix. The cervix has a length of 4.0 cm. Cervical os closed. heart meot022 bpm. Cephalic presentation with longitudinal lie. US/US OB cervical length IMPRESSION: 4 cm cervical length. Impression dictated by: Maulik Pulido M.D. 10/23/2024 4:04 PM Dictation Location: [place] [address] Electronically authenticated by: [id number] Y Date: 516:04 Dictated By: Maulik Pulido D.O. Signed By:10/23/24 1606 DD/ 1604 TD/TT: Lawn Care Technician: us Zhane Jena DO [facility] IMAG[facility] Final Result * US OB GROWTH (10/23/2024 3:29 PM EDT) Anatomical Region Laterality Modality Other 10/23/2024 3:29 PM EDT Narrative 10/23/2024 3:31 [place] [address] Ultrasound Report Signed Patient: LAURA POND MR#: [id number] : 2000 Acct:[id number] Age/Sex: 24 / F ADM Date: 10/23/24 Loc: US Attending Dr: Mya Jacob Ordering Physician: Mya Jacob Date of Service: 10/23/24 Procedure(s): US OB growth Accession Number(s): [id number] cc: Mya Jacob; Physician,Non-Staff MJacquelyn [address] [address] Patient Name: LAURA POND MRN: [id number] date: 2000 Sex: F Assigned Patient Location: [facility] Current Patient Location: Accession/Order Number: [id number] Exam Date: 10/23/2024 15:27 Report Date: 10/23/2024 [...] Jr., D.O. 10/23/2024 3:29 PM Dictation Location: [place] [address] Electronically authenticated by: [id number] Y Date: 10/23/2024 15:29 Dictated By: Rufus Garcia M.D. Signed By: 10/23/24 1531 DD/ 1529 TD/TT: Lawn Care Technician: Procedure Note Radiology, Radiologist, MD - 10/23/2024 [place] [address] Ultrasound Report Signed Patient: LAURA POND TMR#: [id number] : 2000Acct:[id number] Age/Sex: 24 / FADM Date: 10/23/24 Loc: US Attending Dr: Mya Jacob Ordering Physician: Mya Jacob Date of Service: 10/23/24 Procedure(s): US OB growth Accession Number(s): [id number] cc: Mya Jacob; Physician,Non-Staff Adriana The [address] [address] Patient Name: LAURA POND MRN: [id number] date: 2000 Sex: F Assigned Patient Location: [facility] Current Patient Location: Accession/Order Number: [id number] Exam Date: 10/23/2024 15:27 Report Date: 10/23/2024 [...] Jr., D.O. 10/23/2024 3:29 PM Dictation Location: [place] [address] Electronically authenticated by: [id number] Y Date: :29 Dictated By: Rufus Garcia M.D. Signed By:10/23/24 1531 DD/ 1529 TD/TT: Lawn Care Technician: Mya RIOS [facility]AG[facility] Final Result * [...] AM EDT Narrative 09/02/2024 11:55 AM EDT [address] [address] Ultrasound Report Signed Patient: LAURA POND MR#: [id number] : 2000 Acct:[id number] Age/Sex: 23 / F ADM Date: Loc: [facility] 258-[address]: Zhane Bella D.O. Ordering Physician: Zhane Bella D.O. Date of Service: 09/02/24 Procedure(s): US OB placenta Accession Number(s): [id number] cc: Zhane Bella D.O.; Physician,Non-Staff Adriana [address] [address] Patient Name: LAURA POND MRN: [id number] date: 2000 Sex: F Assigned Patient Location: [facility] Current Patient Location: [facility] Accession/Order Number: [id number] Exam Date: 09/02/2024 11:49 Report Date: 09/02/2024 [...] Jr., D.O. 09/02/2024 11:52 AM Dictation Location: [place] [address] Electronically authenticated by: [id number] Y Date: 09/02/2024 11:52 Dictated By: Rufus Garcia M.D. Signed By: 09/02/24 1155 DD/ 1152 TD/TT: Lawn Care Technician: Procedure Note Radiology, Radiologist, MD - 09/02/2024 [place] [address] Ultrasound Report Signed Patient: LAURA POND TMR#: [id number] : 2000Acct:[id number] Age/Sex: 23 / FADM Date: Loc: [facility] 258-[address]: Zhane Bella D.O. Ordering Physician: Zhane Bella D.O. Date of Service: 09/02/24 Procedure(s): US OB placenta Accession Number(s): [id number] cc: Zhane Bella D.O.; Physician,Non-Staff Adriana The [place] [address] Patient Name: LAURA POND MRN: [id number] date: 2000 Sex: F Assigned Patient Location: [facility] Current Patient Location: [facility] Accession/Order Number: [id number] Exam Date: 09/02/2024 11:49 Report Date: 09/02/2024 [...] Jr., D.O. 09/02/2024 11:52 AM Dictation Location: [place] [address] Electronically authenticated by: [id number] Y Date: 1:52 Dictated By: Rufus Garcia M.D. Signed By:09/02/24 1152 DD/ 1152 TD/TT: Lawn Care Technician: us Zhane Bella DO [facility]AG[facility] Final [...] TYPE AUTOMATED DIFFERENTIAL [facility] Comment: PERFORMED AT [facility] [address],[place] [address] 09/01/2024 3:48 PM EDT 09/01/2024 9:40 PM EDT us Zhane Jena DO LAB BLOOD ORDERABLES Final Resul t [facility] * (ABNORMAL) RECURRENT VAGINITIS (HTRX) (08/12/2024 4:11 PM EDT) Pathologist [facility] ATOPOBIUM VAGINAE 23.789(A) 19.961 - 24.689 ppm 08/13/2024 6:52 AM EDT [facility] ATOPOBIUM VAGINAE Detected(A) 19.961 - 24.689 ppm 08/13/2024 6:52 AM EDT [facility] BVAB 2,3 (BACTERIAL VAGINOSIS ASSOCIATED BACTERIA 2, 3); MOBILUNCUS SPP 20.226(A) 19.961 - 24.689 ppm 08/13/2024 6:52 AM EDT [facility] BVAB 2,3 (BACTERIAL VAGINOSIS ASSOCIATED BACTERIA 2, 3); MOBILUNCUS SPP Detected(A) 19.961 - 24.689 ppm 08/13/2024 6:52 AM EDT [facility] MIGUEL ALBICANS, PARAPSILOSIS, TROPICALIS 0.000 19.961 - 30.770 ppm 08/13/2024 6:52 AM EDT [facility] [place] MIGUEL ALBICANS, PARAPSILOSIS, TROPICALIS Not Detected 19.961 - 30.770 ppm 08/13/2024 6:52 AM EDT [facility] MIGUEL GLABRATA 0.000 23.000 - 32.138 ppm 08/13/2024 6:52 AM EDT [facility] MIGUEL GLABRATA Not Detected 23.000 - 32.138 ppm 08/13/2024 6:52 AM EDT [facility] MIGUEL KRUSEI 0.000 23.000 - 32.271 ppm 08/13/2024 6:52 AM EDT [facility] MIGUEL KRUSEI Not Detected 23.000 - 32.271 ppm 08/13/2024 6:52 AM EDT [facility] CHLAMYDIA TRACHOMATIS 0.000 23.000 - 31.467 ppm 08/13/2024 6:52 AM EDT [facility] CHLAMYDIA TRACHOMATIS Not Detected 23.000 - 31.467 ppm 08/13/2024 6:52 AM EDT [facility] GARDNERELLA VAGINALIS 26.712(A) 19.961 - 24.689 ppm 08/13/2024 6:52 AM EDT [facility] GARDNERELLA VAGINALIS Detected(A) 19.961 - 24.689 ppm 08/13/2024 6:52 AM EDT [facility] MEGASPHAERA (TYPES 1, 2) 15.626(A) 19.961 - 24.689 ppm 08/13/2024 6:52 AM EDT [facility] MEGASPHAERA (TYPES 1, 2) Detected(A) 19.961 - 24.689 ppm 08/13/2024 6:52 AM EDT [facility] NEISSERIA GONORRHOEAE 0.000 23.000 - 32.117 ppm 08/13/2024 6:52 AM EDT [facility] NEISSERIA GONORRHOEAE Not Detected 23.000 - 32.117 ppm 08/13/2024 6:52 AM EDT [facility] TRICHOMONAS VAGINALIS 0.000 23.000 - 32.119 ppm 08/13/2024 6:52 AM EDT [facility] TRICHOMONAS VAGINALIS Not Detected 23.000 - 32.119 ppm 08/13/2024 6:52 AM EDT [facility] MYCOPLASMA GENITALIUM 0.000 19.961 - 24.689 ppm 08/13/2024 6:52 AM EDT [facility] MYCOPLASMA GENITALIUM Not Detected 19.961 - 24.689 ppm 08/13/2024 6:52 AM EDT [facility] ERMB, C; MEFA 23.273(A) 23.000 - 27.611 ppm 08/13/2024 6:52 AM EDT [facility] ERMB, C; MEFA Detected(A) 23.000 - 27.611 ppm 08/13/2024 6:52 AM EDT [facility] TET B, TET M 27.416(A) 23.000 - 27.778 ppm 08/13/2024 6:52 AM EDT [facility] TET B, TET M Detected(A) 23.000 - 27.778 ppm 08/13/2024 6:52 AM EDT [facility] Tissue 08/12/2024 4:11 PM EDT 08/13/2024 1:36 AM EDT us Zhane Bella DO LAB BLOOD ORDERABLES Final Resul t [facility] Benjamín Julien and Jose Alfredo Valerio, [place] [address] * (ABNORMAL) IGP,APTIMA HPV,AGE GDLN (08/12/2024 2:58 PM EDT) AGE GDLN ACOG TESTING Note . [facility] Comment: TESTS RESULT FLAG UNITS REF RANGE LAB Clinician Provided Cytology Information Source.............Cervix No. of containers..01 ThinPrep Vial Age Algo ACOG Neha... - 01 FLAG LEGEND: L-Low Normal,H-High Normal,LL-Alert Low,HH-Alert High <-Panic Low,>-Panic High,A-Abnormal,AA-Critical Abnormal Performed at: 01 =G [address] [address] Rafaela Vega MD, IGP, RFX APTIMA HPV ASCU Note(A) . [facility] Comment: TESTS RESULT FLAG UNITS REF RANGE LAB DIAGNOSIS: [A] 02 EPITHELIAL CELL ABNORMALITY. ATYPICAL SQUAMOUS CELLS OF UNDETERMINED SIGNIFICANCE (ASC-US). Specimen adequacy: 02 Satisfactory for evaluation. Endocervical and/or squamous metaplastic cells (endocervical component) are present. Performed by: 02 Mauri Martínez, Gis Scientist (ASC) Electronically si... Frances Munoz MD, Pathologist [...] Low,>-Panic High,A-Abnormal,AA-Critical Abnormal Performed at: [address] [address] Rafaela Vega MD, HPV APTIMA Positive( A) Negative TB Comment: This nucleic acid amplification test detects fourteen high- risk HPV types (16,18,31,33,35,39,45,51,52,56,58,59,66,68) without differentiation. Performed at: =G - [facility] [address] [id number] Operations Support Specialist: Rafaela Vega MD, Phone: [phone] Performed at: - [facility] [address] [place] [id number] Operations Support Specialist: Rafaela Vega MD, Phone: [phone] 08/12/2024 2:58 PM EDT 08/12/2024 9:42 PM [...] II, MD, PHD at 28-Jul-2024 09:45:45 PM [facility] Procedure Note Reuben Cerda MD - [...] CERDA II, MD, PHDat 28-Jul-2024 09:45:45 PM [facility] us Zhane Jena DO IMG OB [...] monitoring or management of patients. PERFORMED AT [facility] [address],[place] [address] 07/27/2024 3:10 PM EDT 07/27/2024 3:12 PM [...] repeat testing Initial testing Physician Phone Number [phone] GENERAL TEST INFORMATION See Note This screening [...] developed and its performance characteristics determined by [facility] in a manner consistent with CLIA requirements. This test has not been cleared or approved by the U.S. Food and Drug Administration. Test Performed by: [facility] [address] [place] [address] Operations Support Specialist: Gamaliel Au Ph.D.; CLIA# [id number] PERFORMED AT [address] [place] [address] 07/27/2024 3:10 PM EDT 07/27/2024 3:12 PM EDT us Zhane Jena DO LAB BLOOD ORDERABLES Final Resul t [facility] * TSH ([facility]) (07/27/2024 3:10 PM EDT) TSH 1.68 0.49 - 4.67 uIU/mL [facility] Comment:PERFORMED AT [facility] [address],[place] [address] 07/27/2024 3:10 PM EDT 07/27/2024 3:12 PM EDT Carlipa Systemso DO LAB BLOOD ORDERABLES Final Resul t [facility] * SYPHILIS TOTAL ([facility]) (07/27/2024 3:10 PM EDT) SYPHILIS TOTAL <0.2 0.0 - 0.8 AI [facility] Comment: NON REACTIVE No serologic evidence of infection to Treponema pallidum (syphilis). Repeat testing may be considered in patients with suspected acute or primary syphilis in 2 to 4 weeks. PERFORMED AT [address],[place] [address] 07/27/2024 3:10 PM EDT 07/27/2024 3:12 PM EDT us Zhane Jena DO LAB BLOOD ORDERABLES Final Resul t [facility] * Hepatitis C antibody (07/27/2024 3:10 PM EDT) Pathologist [facility] ANTI HCV W/PCR REFLEX Non-Reacti ve Non-Reacti ve [facility] Comment: NEW TEST METHOD NOTE If recent infection suspected, recommend repeat testing (>2 months). Qxerjo-cn-vxrzrr ratio is <1.00. PERFORMED AT [address],[place] [address] 07/27/2024 3:10 PM EDT 07/27/2024 3:12 PM EDT us Carlipa Systemso DO LAB BLOOD ORDERABLES Final Resul t Performing Organization Address City/[facility] Co de Phone Number [facility] * Rubella antibody, IgG (07/27/2024 3:10 PM EDT) Pathologist [facility] RUBELLA IGG 15 IU/mL [facility] Comment: Interpretation-------- <8 NEGATIVE-considered Not Immune 8-9 EQUIVOCAL-consider retesting with new specimen >9 POSITIVE-considered Immune PERFORMED AT [address],[place] [address] 07/27/2024 3:10 PM EDT 07/27/2024 3:12 PM EDT us Zhane Jena DO LAB BLOOD ORDERABLES Final Resul t [facility] * Hepatitis B surface antigen (07/27/2024 3:10 PM EDT) Pathologist [facility] HEPATITIS B SURG AG Non-Reacti ve Non-Reacti ve [facility] Comment: NEW TEST METHOD PERFORMED AT [address],[place] [address] 07/27/2024 3:10 PM EDT 07/27/2024 3:12 PM EDT Zhane Jena DO LAB BLOOD ORDERABLES Final Resul t Performing Organization Address City/[facility] Co de Phone Number [facility] * Hemoglobin A1c (07/27/2024 3:10 PM EDT) Pathologist [facility] HEMOGLOBIN A1C 4.6 4.4 - 5.6 % [facility] Comment: NOTE ADA Guidelines Result HgbA1c Normal : less than 5.7 % Prediabetes : 5.7 % to 6.4 % Diabetes : > 6.4 % Use with caution in patients with abnormal hemoglobin variants as the half-life of red blood cells and in vivo glycation rates are affected. AVERAGE GLUCOSE 85 mg/dL [facility] Comment:PERFORMED AT [address],[place] [address] 07/27/2024 3:10 PM EDT 07/27/2024 3:12 PM EDT Zhane Jena DO LAB BLOOD ORDERABLES Final Resul t [facility] from Last 3 Months Insurance [employer] [place]
--- OUTSIDE RECORDS SUMMARY | 2024-10-27 13:59 | XMS_ITS | Encounter Summary ---
Author Organization [facility] Address [address] [place] [address] Care Team Providers Care Market Specialist Name Role Phone Unavailable Primary Care Provider Unavailabl e Encounter Details Date Type Department Care Team (Late st Contact Info) Description 10/24/2024 Clinisync Result Encounter [facility] External Department Unsolicited Osmany Bella, DO [address] [place] [address] Social History Tobacco Use Types Packs/Day Years [...] PM EDT Routine [facility] BCP OB [address] [place] [phone] Osmany Bella, DO [address] [place] [address] documented as of this encounter Procedures Procedure Name Priority Date/Time Associated Diagnosis Comments [facility] CMP (CMP) (FOR REMOTE [facility] USE) Routine 10/24/2024 2:03 AM EDT ALL CBC WITH AUTO DIFF Routine 10/24/2024 2:03 AM EDT [facility] URINE MICROSCOPIC ONLY Routine 10/24/2024 12:30 AM EDT [facility] UA (CLEAN/CATCH) CLEANER INDUSTRIAL/MICRO IF IND. Routine 10/24/2024 12:30 AM EDT documented in this encounter Results * (ABNORMAL) [facility] CMP (CMP) (FOR REMOTE [facility] USE) (10/24/2024 2:03 AM EDT) [...] 0.55 - 1.02 mg/dL TBH TBH EGFR-AF JAPANESE >60 >=60 mL/min/1. 73m 2 TBH TBH EGFR-NON AF JAPANESE >60 >=60 mL/min/1. 73m 2 TBH BUN [...] WITH AUTO DIFF (10/24/2024 2:03 AM EDT) [facility] TB WBC 8.7 4.0 - 11.0 10 [...] DO CLINISYNC Final Result Performing Organization Address [facility] Co de Phone Number CLINISYNC TBH * (ABNORMAL) TBH UA (CLEAN/CATCH) CLEANER INDUSTRIAL/MICRO IF IND. (10/24/2024 12:30 AM EDT) COLOR [...] DO CLINISYNC Final Result Performing Organization Address City/State/[facility] Co de Phone Number [facility] documented in this encounter Visit Diagnoses Not on filedocumented in this encounter
--- OUTSIDE RECORDS SUMMARY | 2024-10-27 13:59 | XMS_ITS | Encounter Summary ---
Author Organization [facility] Address [address] [facility] [place] [address] Care Team Providers Care Learning Strategist Name Role Phone Unavailable Primary Care Provider Unavailabl e Encounter Details Date Type Department Care Team (Late Contact Info) Description 11/27/2022 Abstract [facility] OB [address] [address] Mya Kaplan PA [address] [facility] [address] Social History Tobacco Use Types Packs/Day [...] Description 10/28/2024 2:30 PM EDT Routine [facility] OB [address] [place] [address] Osmany Bella DO [address] [place] [address] documented as of this encounter Visit Diagnoses Not on filedocumented in this encounter
--- OUTSIDE RECORDS SUMMARY | 2024-10-27 13:59 | XMS_ITS | Encounter Summary ---
Author Organization [employer] Address [id number] [address] [place] [address] Care Team Providers Care Rebar Fabricator Name Role Phone No Pcp, No Pcp Primary Care Provider Unavailabl e Encounter Details Date Type Department Care Team (Late st Contact Info) Description 09/07/2020 Telephone [employer] [facility] Family Medicine [address] [place] [address] [place] [address] Cooper Goff CMA Social History [...] documented as of this encounter Care Teams Rebar Fabricator Relationship Specialty Start Date End Date No Pcp, [place] [address] PCP - General Family Medicine 09/01/24 documented as of this encounter
--- OUTSIDE RECORDS SUMMARY | 2024-10-27 13:59 | XMS_ITS | Encounter Summary ---
Author Organization [facility] Address [address] [facility] [place] [address] Care Team Providers Care Power Line Installer And Repairer Name Role Phone Unavailable Primary Care Provider Unavailabl e Encounter Details Date Type Department Care Team (Late Contact Info) Description 11/02/2022 Abstract [facility] OB [address] [place] [address] Osmany Bella DO [facility] [place] [address] Social History Tobacco [...] Description 10/28/2024 2:30 PM EDT Routine [facility] OB [address] [place] [address] Osmany Bella DO [facility] [place] [address] documented as of this encounter Visit Diagnoses Not on filedocumented in this encounter
--- OUTSIDE RECORDS SUMMARY | 2024-10-27 13:59 | XMS_ITS | Encounter Summary ---
Author Organization [facility] Address [address] [place] [address] Care Team Providers Care Personal Banking Assistant Name Role Phone Unavailable Primary Care Provider Unavailabl e Encounter Details Date Type Department Care Team ([facility] Contact Info) Description 12/10/2022 External Result Encounter [facility] BCP OB [address] [place] [address] Osmany Bella DO [facility] [place] [address] Social History Tobacco Use Types Packs/Day [...] Upcoming Encounters Date Type Department Care Team ([facility] Contact Info) Description 10/28/2024 2:30 PM EDT Routine [facility] BCP OB [address] [place] [address] Osmany Bella DO [address] [place], [place] [phone] documented as of this encounter Procedures Procedure [...] Final 12/10/2022 15:09) PATIENT INFO: ID #: [id number] : [birth year] (22 yrs)(F) Name: GEORGIE ROTH Visit Date: 12/10/2022 11:43 [place] PERFORMED BY: Attending: Marisel Charles MD Performed By: Pearl Hogue RDMS Referred By: Osmany Frances. Address: [address] [place], [place] [address] [address] Location: [facility] [place] SERVICE(S) PROVIDED: Comprehensive Anatomic Survey [place]ins [id number] INDICATIONS: Screening for anatomic survey Z36.89 Twin [...] document Interventr. Septum: Not well visualized Cardiac Sawyer: Appears normal Diaphragm: Not well visualized 3 [...] document Interventr. Septum: Could not document Cardiac Sawyer: Appears normal Diaphragm: Could not document 3 [...] Signed Final Report 12/10/2022 15:09 IMPRESSION: 1. [place] chorionic Di amniotic Twin Gestation. 2. Twin [...] Circumvallate placenta visualized. RECOMMENDATIONS: 1. Please see [facility] consultation documentation from today's encounter. 2. Patient is scheduled in two weeks for TTTS protocol. 3. Patient is scheduled in 4 weeks for anatomic surveys, heart ECHOs, and cervical length. 4. Subsequent follow up or other follow up as clinically determined by primary OB provider unless otherwise specified by [facility]. 5. Results forwarded to ordering provider so they can follow up with the patient as necessary. The copy-to physician of this order is OSMANY Goodwin The ordering physician of this order is MARISEL Vázquez Procedure Note Radiology, RadiologistMD - 12/10/2022 [facility] RE[facility] (Signed Final 12/10/2022 15:09) PATIENT INFO: ID #: [id number] : [birth year] (22 yrs)(F) Name: GEORGIE ROTH Visit Date: 12/10/2022 11:43 ESSIE PERFORMED BY: Attending: Marisel Charles MD Performed By: Pearl Hogue RDMS Referred By: Osmany Bella DO Ref. Address: [address] [place] [address] [place] [address] Location: [facility] [place] SERVICE(S) PROVIDED: Comprehensive Anatomic Survey Tw[place] [id number] INDICATIONS: Screening for anatomic survey Z36.89 Twin [...] document Interventr. Septum: Not well visualized Cardiac Sawyer: Appears normal Diaphragm: Not well visualized 3 [...] document Interventr. Septum: Could not document Cardiac Sawyer: Appears normal Diaphragm: Could not document 3 [...] Signed Final Report 12/10/2022 15:09 IMPRESSION: 1. [place] chorionic Di amniotic Twin Gestation. 2. Twin [...] Circumvallate placenta visualized. RECOMMENDATIONS: 1. Please see [facility] consultation documentation from today's encounter. 2. [...]
--- OUTSIDE RECORDS SUMMARY | 2024-10-27 13:59 | XMS_ITS | Encounter Summary ---
Author Organization [employer] Address [id number] [address] [place] [address] Care Team Providers Care Linoleum Tile Layer Name Role Phone No Pcp, No Pcp Primary Care Provider Unavailabl e Encounter Details Date Type Department Care Team (Late st Contact Info) Description 03/06/2021 Telephone [facility] Family Medicine [address] [address] [place] [address] Madeline Tubbs RMA Social History [...] test was ordered and sent over to [facility]. documented in this encounter Plan of Treatment [...] documented as of this encounter Care Teams Linoleum Tile Layer Relationship Specialty Start Date End Date No Pcp, [place] [address] PCP - General Family Medicine 09/01/24 documented as of this encounter
--- OUTSIDE RECORDS SUMMARY | 2024-10-27 14:00 | XMS_ITS | Encounter Summary ---
Author Organization [employer] Address [id number] [address] [place] [address] Care Team Providers Care Director Design Name Role Phone No Pcp, No Pcp Primary Care Provider Unavailabl e Encounter Details Date Type Department Care Team (Late st Contact Info) Description 08/03/2021 Documentation [facility] [address] [place] [address] Mona Delvalle CMA Social History [...] any clubs o r organizations such as sikh groups, unions, fraternal or athletic groups, or [...] Answer Date Recorded Total Score 15 08/03/2021 [facility]at ional Health - [...] documented as of this encounter Care Teams Director Design Relationship Specialty Start Date End Date No Pcp, [place] [address] PCP - General Family Medicine 09/01/24 documented as of this encounter
--- OUTSIDE RECORDS SUMMARY | 2024-10-27 14:00 | XMS_ITS | Encounter Summary ---
Author Organization [employer] Address [id number] [address] [place] [address] Care Team Providers Care Truss Designer Name Role Phone No Pcp, No Pcp Primary Care Provider Unavailabl e Encounter Details Date Type Department Care Team (Late st Contact Info) Description 08/03/2021 Telephone [employer] [facility] Family [facility] [address] [place] [address] [place] [address] Mona Delvalle CMA Social History [...] often do you attend chur ch or voodoo services? Never 03/26/2021 Do you belong to any clubs o r organizations such as religious groups, unions, fraternal or athletic groups, or [...] Answer Date Recorded Total Score 15 08/03/2021 [facility] - Occupational [...] documented as of this encounter Care Teams Truss Designer Relationship Specialty Start Date End Date No Pcp, [place] [address] PCP - General Family Medicine 09/01/24 documented as of this encounter
--- OUTSIDE RECORDS SUMMARY | 2024-10-27 14:00 | XMS_ITS | Encounter Summary ---
Author Organization [employer] Address [id number] [address] [place] [address] Care Team Providers Care Captain Waiter/Waitress Name Role Phone No Pcp, No Pcp Primary Care Provider Unavailabl e Reason for Visit * Reason Onset Date Comments Med Refill 09/07/2020 Encounter Details Date Type Department Care Team (Late st Contact Info) Description 09/07/2020 Refill [facility] [address] [place] [address] [place] [address] Cooper Goff CMA Social History [...] documented as of this encounter Care Teams Captain Waiter/Waitress Relationship Specialty Start Date End Date No Pcp, [place] [address] PCP - General Family Medicine 09/01/24 documented as of this encounter
--- OUTSIDE RECORDS SUMMARY | 2024-10-27 14:00 | XMS_ITS | Encounter Summary ---
Author Organization [employer] Address [id number] [address] [place] [address] Care Team Providers Care Incoming Freight Clerk Name Role Phone No Pcp, No Pcp Primary Care Provider Unavailabl e Reason for Visit * Reason Comments Med Refill Encounter Details Date Type Department Care Team (Late st Contact Info) Description 12/14/2023 Refill [facility] Ob[facility]ne[facility] [address] [place] [id number] Gwen Sutton, INSTRUMENT/CONTROL TECHNICIAN-[facility] [address] [place], [place] [address] Social History Tobacco Use Types Packs/Day Years [...] often do you attend chur ch or jain services? Never 03/26/2021 Do you belong to any clubs o r organizations such as yazdanism groups, unions, fraternal or athletic groups, or [...] Answer Date Recorded Total Score 4 08/29/2023 [facility]at ional Health - Occupational [...] things needed for daily living? No 03/26/2021 [place] Depression Scale Answer Date Recorded [place] Depression Scale Total 13 09/12/2023 The thought [...] Recorded Do you need help finding a [facility] career center and/or a training [...] documented as of this encounter Care Teams Incoming Freight Clerk Relationship Specialty Start Date End Date No Pcp, [place] [address] PCP - General Family Medicine 09/01/24 documented as of this encounter
--- OUTSIDE RECORDS SUMMARY | 2024-10-27 14:00 | XMS_ITS | Encounter Summary ---
Author Organization [facility] Address [address] [facility] [place] [address] Care Team Providers Care Customer Consulting Manager Name Role Phone Unavailable Primary Care Provider Unavailabl e Encounter Details Date Type Department Care Team (Late Contact Info) Description 10/12/2024 Telephone [facility] OB [address] [facility] [place] [address] Christie Wiley LPN [...] PM EDT Routine [facility] BCP OB [address] [place] [address] Osmany Bella DO [address] [place], [place] [address] documented as of this encounter Visit Diagnoses Not on filedocumented in this encounter
--- OUTSIDE RECORDS SUMMARY | 2024-10-27 14:00 | XMS_ITS | Encounter Summary ---
Author Organization [employer] Address [id number] [address] [place] [address] Care Team Providers Care Drift Miner Name Role Phone No Pcp, No Pcp Primary Care Provider Unavailabl e Encounter Details Date Type Department Care Team (Late st Contact Info) Description 08/29/2023 Telephone [facility] [address] [facility] [address] [place] [address] Julia Morgan CMA Social History [...] Answer Date Recorded Total Score 4 08/29/2023 [facility]at ional Health - [...] things needed for daily living? No 03/26/2021 [place] Depression Scale Answer Date Recorded [place] Depression Scale Total 7 04/05/2023 The thought [...] Recorded Do you need help finding a [facility] career center and/or a training program? [...] documented as of this encounter Care Teams Drift Miner Relationship Specialty Start Date End Date No Pcp, [place] [address] PCP - General Family Medicine 09/01/24 documented as of this encounter
--- OUTSIDE RECORDS SUMMARY | 2024-10-27 14:00 | XMS_ITS | Encounter Summary ---
Author Organization [facility] Address [address] [facility] [place] [address] Care Team Providers Care Hydroelectric Plant Electrician Name Role Phone Unavailable Primary Care Provider Unavailabl e Encounter Details Date Type Department Care Team (Late Contact Info) Description 10/15/2024 Bamboo flowsheet [facility] OB [address] [facility] [place] [address] Mya Kaplan PA [address] [facility] [address] [place], [facility] Social History Tobacco Use Types Packs/Day [...] PM EDT Routine [facility] BCP OB [address] [facility] [place] [address] Osmany Bella, DO [address] [facility] [address] [place], [place] [address] documented as of this encounter Visit Diagnoses Not on filedocumented in this encounter
--- OUTSIDE RECORDS SUMMARY | 2024-10-27 14:00 | XMS_ITS | Encounter Summary ---
Author Organization [facility] Address [address] [facility] [place] [address] Care Team Providers Care Unit Control Worker Name Role Phone Unavailable Primary Care Provider Unavailabl e Encounter Details Date Type Department Care Team (Late Contact Info) Description 10/21/2024 Bamboo flowsheet N[facility] OB [address] [facility] [address] Mya Kaplan PA [address] [facility] [address] [place], [facility] Social History Tobacco Use Types Packs/Day Years [...] EDT Routine [facility] BCP OB [address] [facility] [address] Osmany Bella, DO [address] [facility] [address] [facility] [address] [place], [place] [address] documented as of this encounter Visit Diagnoses Not on filedocumented in this encounter
--- OUTSIDE RECORDS SUMMARY | 2024-10-27 14:02 | XMS_ITS | Encounter Summary ---
Author Organization [facility] Address [address] [place] [address] Care Team Providers Care Marriage Counselor Name Role Phone Unavailable Primary Care Provider Unavailabl e Encounter Details Date Type Department Care Team (Late Contact Info) Description 12/17/2023 Abstract [facility] OB [address] [facility] [place] [phone] Marie Cuellar LPN [address] [place] [id number] Social History Tobacco Use Types Packs/Day Years [...] Description 10/28/2024 2:30 PM EDT Routine [facility] OB [address] [facility] [place] [address] Osmany Bella DO [address] [facility] [address] [place], [place] [phone] documented as of this encounter Visit Diagnoses Not on filedocumented in this encounter
== END 2024-10-27 14:05 | disposition home or self-care (01) ==
LOC: FBC 13:59 → FBCO 13:59
PROVIDERS: Visit Provider Obstetrics & Gynecology
DX: O26.892 Other specified pregnancy related conditions, second trimester (principal)
CPT/HCPCS: 59025; 96372; J0702

== ENCOUNTER 2024-10-28 12:12 | Outpatient (RCR) | payer MEDICAID, SELFPAY ==
[2024-10-28 12:00] VITALS: BP 134/70; PULSE 99; TEMP 36.6; O2SAT 97
[2024-10-28] MEDS: BETAMETHASONE ACE/BETAMETHASONE SOD PHOS 30 MG/5 ML 12 MG IM (12:19)
== END 2024-11-02 23:59 | disposition home or self-care (01) ==
LOC: INF 12:12
PROVIDERS: Visit Provider Obstetrics & Gynecology
DX: O60.03 Preterm labor without delivery, third trimester (principal); Z3A.36 36 weeks gestation of pregnancy
CPT/HCPCS: 87081; 96372; J0702

== ENCOUNTER 2024-10-28 19:34 | Outpatient (REF) | payer MEDICAID, SELFPAY ==
--- OUTSIDE RECORDS SUMMARY | 2023-09-02 13:15 | XMS_ITS ---
Author Organization [facility] vices Address [address] [place], [place] [address] Care Team Providers Care Top Taper Machine Name Role Phone Arlene Ospina Primary Care Provider Ruth Bess [phone] REASON FOR VISIT Initial psychiatric evaluation Medications [...] Location Date Provider Diagnosis Main [address] [place] [id number] 09/02/2023 Ruth Bess Dietary counseling Z 71.3 and Exercise counseling Z71.82 Assessments Encounter Date Diagnosis (ICD Code) Assessment Notes Treatment Notes Treatment Clinical Notes Section Notes 09/02/2023 Dietary counseling (ICD-10 - Z71.3) 09/02/2023 Exercise counseling (ICD-10 - Z71.82) Plan Of Treatment Next Appt Details Follow Up: 4 Weeks,prn, Reas on: Progress Notes * Chetna PONDonDOB:2000 (24 yo F)Acc No.[id number]:09/02/2023 Patient: Georgie ARAMBULA Provider: DELIA Kebede :2000 A ge:22 Y S ex:Female Date:09/02/2023 Address:[address] [place], [place] [address] Pcp:Arlene Ospina Subjective: * Chief Complaints: * [...] Problems: * Billing Information: * Visit Code: 58728 Psychiatric diagnostic eval with med sv. Modifiers: SA * Procedure Codes: Care Plan Details* * Electronic signature of DELIA Madsen on 10/28/2024 at 07:39 PM EDT Sign off status: Pending * Provider: DELIA Kebede Date: 0 09/02/2023 Generated for Yarely leon/Arvind/Veda on: 0 10/28/2024 07:39 PM EDT
--- OUTSIDE RECORDS SUMMARY | 2024-10-15 15:30 | XMS_ITS | Encounter Summary ---
Author Organization [facility] Address [address] [place] [address] Care Team Providers Care Plate Former Name Role Phone Unavailable Primary Care Provider Unavailabl e Reason for Visit * Reason Comments Routine Visit Encounter Details Date Type Department Care Team ([facility] Contact Info) Description 10/15/2024 3:30 PM EDT Routine [facility] [address] [place] [phone] Mya Kaplan PA [address] [place], [place] [id number] Third trimester ([facility]); 32 weeks gestation of ([facility]); H/O incompetent cervix, currently ([facility]); Noncompliant patient, third trimester ([facility]) Social History Tobacco Use Types Packs/Day Years [...] Sign Reading Time Taken Comments Blood Pressure 118/78 10/15/2024 3:12 PM EDT Pulse - - Temperature - - Respiratory Rate - - Oxygen Saturation - - Inhaled Oxygen Concentration - - Weight 77.5 kg (170 lb 12.8 oz) 10/15/2024 3:12 PM EDT Height - - Body Mass Index - - documented in this encounter Progress Notes * Christie Wiley LPN - 10/15/2024 3:30 PM EDT Reason for Appointment: Patient ID: Georgie Pond is a 24 y.o. female who presents for Routine Visit Patient presents today for Return OB appointment. MEDICATIONS Current Outpatient Medications Medication Instructions MV & Min w/FA-DHA ( Gummies) 0.18-25 MG chewable tablet 1 each, Oral, Daily Vit-Fe Fumarate-FA ( 19) chewable tablet 1 tablet, Daily ALLERGIES No Known Allergies PROBLEMS Active Ambulatory Problems Diagnosis Date Noted Missed period 10/16/2022 Acute back pain with sciatica, right 06/24/2019 Acute cystitis with hematuria 07/06/2021 Advice given about COVID-19 virus by telephone 03/06/2021 Dysuria 07/06/2021 Encounter for routine child health examination without abnormal findings 08/22/2020 Episode of recurrent major depressive disorder 07/06/2021 Gastroesophageal reflux disease with esophagitis without [...] nursing note reviewed. Exam conducted with a lead quality control technician present. Vitals: There is no height or weight on file to calculate BMI. BP: 118/78 No LMP recorded. Patient is . ASSESSMENT & PLAN ICD-10-CM 1. Third trimester ([facility]) Z34.93 2. 32 weeks gestation of ([facility]) Z3A.32 3. H/O incompetent cervix, currently ([facility]) O09.299 4. Noncompliant patient, third trimester ([facility]) O09.893 Z91.199 Patient presents today for a routine obstetrics appointment. Patient is currently 34w2d with a Estimated Date of Delivery: 11/24/24. Patient made aware that she will need to start NST/BPP andgrowth scan to be started at [facility]. Patient given orders and sent to [facility] and [facility] Scheduling. Patient to return to clinic in 1 week for routine OB appointment. Documented by Christie Wiley LPN on behalf of: BLANCA Gibson documented in this encounter Plan of Treatment Upcoming Encounters Date Type Department Care Team (Late st Contact Info) Description 11/10/2024 2:20 PM EDT Office Visit [facility] OB [address] [place] [phone] Mya Kaplan PA [address] [place] [address] Scheduled Orders Name Type Priority Associated Diagnoses Orde r Schedule US biophysical profile w non stress test Imaging Routine Third trimester ([facility]) 32 weeks gestation of ([facility]) H/O incompetent cervix, currently ([facility]) Noncompliant patient, third trimester ([facility]) Expected: 10/15/2024 (Approximate), Expires: 04/16/2025 US OB follow up transabdominal approach Imaging Routine Third trimester ([facility]) 32 weeks gestation of ([facility]) H/O incompetent cervix, currently ([facility]) Noncompliant patient, third trimester ([facility]) Expected: 10/15/2024, Expires: 02/14/2025 documented as of this encounter Visit Diagnoses Diagnosis Third trimester ([facility]) state, incidental 32 weeks gestation of ([facility]) H/O incompetent cervix, currently ([facility]) Noncompliant patient, third trimester ([facility]) documented in this encounter
--- OUTSIDE RECORDS SUMMARY | 2024-10-21 14:30 | XMS_ITS | Encounter Summary ---
Author Organization [facility] Address [address] [place] [address] Care Team Providers Care Build And Deployment Engineer Name Role Phone Unavailable Primary Care Provider Unavailabl e Encounter Details Date Type Department Care Team (Late st Contact Info) Description 10/21/2024 2:30 PM EDT Routine [facility] OB [address] [place] [address] Mya Kaplan PA [address] [place], [facility] 35 weeks gestation of ([facility]); Third trimester ([facility]) Social History Tobacco Use Types Packs/Day Years [...] nursing note reviewed. Exam conducted with a tanker driver present. Vitals: There is no height [...] is now able to resume visitation at [facility] Facility as previously scheduled to see her twins. Patient verbalized understanding and will return to clinic in 1 week. Documented by Christie Wiley LPN on behalf of: BLANCA Gibson documented in this encounter Plan of Treatment Upcoming Encounters Date Type Department Care Team (Late st Contact Info) Description 11/10/2024 2:20 PM EDT Office Visit [facility] [address] [place] [address] Mya Kaplan PA [address] [place] [address] documented as of this encounter Procedures Procedure Name Priority Date/Time Associated Diagnosis Comments POCT URINALYSIS DIPSTICK Routine 10/21/2024 3:08 PM EDT 35 weeks gestation of ([facility]) Third trimester ([facility]) documented in this encounter Results * (ABNORMAL) [...] Visit Diagnoses Diagnosis 35 weeks gestation of ([facility]) Third trimester ([facility]) state, incidental documented in this encounter
--- OUTSIDE RECORDS SUMMARY | 2024-10-28 14:30 | XMS_ITS | Encounter Summary ---
Author Organization [facility] Address [address] [place] [address] Care Team Providers Care Family Resource Management Specialist Name Role Phone Unavailable Primary Care Provider Unavailabl e Reason for Visit * Reason Comments Routine Visit Encounter Details Date Type Department Care Team (Latest Contact Info) Description 10/28/2024 2:30 PM EDT Routine [facility] [address] [place] [phone] Osmany Bella, DO [address] [facility] [place] [address] Gastroesophageal reflux in ([facility]) (Primary Dx); Third trimester ([facility]); 36 weeks gestation of ([facility]); H/O incompetent cervix, currently ([facility]) Social History Tobacco Use Types Packs/Day Years [...] EDT Office Visit [facility] OB [address] [facility] [place] [address] Mya Kaplan PA [address] [place] [address] Scheduled Orders Name Type Priority Associated Diagnoses Orde r Schedule CULTURE, GROUP B STREP WITH SUSCEPTIBLITY Lab Routine Third trimester ([facility]) Expected: 10/28/2024, Expires: 10/28/2025 documented as of this encounter Procedures Procedure Name Priority Date/Time Associated Diagnosis Comments POCT URINALYSIS DIPSTICK Routine 10/28/2024 2:59 PM EDT Third trimester ([facility]) 36 weeks gestation of ([facility]) documented in this encounter Results * [...] encounter Visit Diagnoses Diagnosis Gastroesophageal reflux in ([facility])- Primary Third trimester ([facility]) state, incidental 36 weeks gestation of ([facility]) H/O incompetent cervix, currently ([facility]) documented in this encounter
--- OUTSIDE RECORDS SUMMARY | 2024-10-28 19:37 | XMS_ITS | Encounter Summary ---
Author Organization [facility] Address [address] [place] [address] Care Team Providers Care Drug Safety Specialist Name Role Phone Unavailable Primary Care Provider Unavailabl e Reason for Visit * Reason Comments Med Refill Encounter Details Date Type Department Care Team (Late Contact Info) Description 12/15/2023 Refill [facility] OB [address] [facility] [place] [address] Osmany Bella, DO [address] [facility] [address] [place], [facility]11 Flank pain Social History Tobacco Use [...] Department Care Team (Late Contact Info) Description 11/10/2024 2:20 PM EDT Office Visit [facility] OB [address] [facility] [place] [phone] Mya Kaplan PA [address] [facility] [place] [address] documented as of this encounter Visit Diagnoses Diagnosis Flank pain Abdominal pain, unspecified site documented in this encounter
--- OUTSIDE RECORDS SUMMARY | 2024-10-28 19:37 | XMS_ITS | Encounter Summary ---
Author Organization [facility] Address [address] [facility] [place] [address] Care Team Providers Care Solar Thermal Installer Name Role Phone Unavailable Primary Care Provider Unavailabl e Encounter Details Date Type Department Care Team (Late Contact Info) Description 12/12/2023 Abstract [facility] OB [address] [facility] [place] [phone] Osmany Bella DO [address] [facility] [address] [place], [facility]11 Social History Tobacco Use Types Packs/Day [...] 11/10/2024 2:20 PM EDT Office Visit [facility] OB [address] [facility] [place] [phone] Mya Kaplan PA [address] [facility] [address] [place], [place] [phone] documented as of this encounter Visit Diagnoses Not on filedocumented in this encounter
--- OUTSIDE RECORDS SUMMARY | 2024-10-28 19:37 | XMS_ITS | Encounter Summary ---
Author Organization [facility] Address [address] [place] [address] Care Team Providers Care Shoe Sewing Machine Operator And Tender Name Role Phone Unavailable Primary Care Provider Unavailabl e Encounter Details Date Type Department Care Team (Late Contact Info) Description 12/11/2023 Abstract [facility] OB [address] [facility] [place] [phone] Osmany Bella DO [address] [facility] [address] [place], [facility]11 Social History Tobacco Use Types [...] 11/10/2024 2:20 PM EDT Office Visit [facility] OB [address] [facility] [phone] Mya Kaplan PA [address] [facility] [address] [place], [place] [phone] documented as of this encounter Visit Diagnoses Not on filedocumented in this encounter
--- OUTSIDE RECORDS SUMMARY | 2024-10-28 19:37 | XMS_ITS | Encounter Summary ---
Author Organization [facility] Address [address] [place] [address] Care Team Providers Care Network Intern Name Role Phone Unavailable Primary Care Provider Unavailabl e Reason for Visit * Reason Comments Med Refill Encounter Details Date Type Department Care Team (Late Contact Info) Description 12/15/2023 Refill [facility] [address] [place] [phone] Osmany Belal [address] [place], [facility]11 Nausea Social History Tobacco Use Types [...] Upcoming Encounters Date Type Department Care Team ([facility] Contact Info) Description 11/10/2024 2:20 PM EDT Office Visit [facility] OB [address] [place] [address] Mya Kaplan PA [address] [facility] [place] [address] documented as of this encounter Visit Diagnoses Diagnosis Nausea Nausea alone documented in this encounter
--- OUTSIDE RECORDS SUMMARY | 2024-10-28 19:37 | XMS_ITS | Encounter Summary ---
Author Organization [facility] Address [address] [place] [address] Care Team Providers Care Resawyer Name Role Phone Unavailable Primary Care Provider Unavailabl e Encounter Details Date Type Department Care Team ([facility] Contact Info) Description 12/13/2023 Abstract [facility] OB [address] [place] [address] Isadora Martin, CNM [address] [place], [place] [phone] Social History Tobacco Use Types Packs/Day Years Used Date Smoking Tobacco: Never Assessed Comments Yes Sex and Gender Information Value Date Recorded Sex Assigned at Not on file Legal Sex Female 11:47 PM EDT Gender Identity Not on file Sexual Orientation Not on file documented as of this encounter Plan of Treatment Upcoming Encounters Date Type Department Care Team ([facility] Contact Info) Description 11/10/2024 2:20 PM EDT Office Visit [facility] OB [address] [facility] [place] [phone] Mya Kaplan PA [address] [facility] [place] [address] documented as of this encounter Visit Diagnoses Not on filedocumented in this encounter
--- OUTSIDE RECORDS SUMMARY | 2024-10-28 19:37 | XMS_ITS | Encounter Summary ---
Author Organization [facility] Address [address] [place] [address] Care Team Providers Care Set Up Mechanic Coil Winding Machines Name Role Phone Unavailable Primary Care Provider Unavailabl e Encounter Details Date Type Department Care Team (Late st Contact Info) Description 12/15/2023 Clinisync Result Encounter [facility] External Department Unsolicited Zhane Bella DO [address] [facility] [place] [address] Social History Tobacco Use Types Packs/Day Years [...] EDT Office Visit [facility] OB [address] [facility] [address] Mya Kaplan PA [address] [facility] [place] [address] documented as of this encounter Procedures Procedure Name Priority Date/Time Associated Diagnosis Comments CT ANGIOGRAM CHEST 12/15/2023 1: 32 PM EDT documented in this encounter Results * CT angiogram chest (12/15/2023 1:32 PM EDT) Anatomical Region Laterality Modality Body, Chest Computed Tomogra phy 12/15/2023 1:32 PM EDT Narrative 12/15/2023 1:35 [place] [address] CT Scan Report Signed Patient: GEORGIE POND MR#: [id number] : 2000 Acct:[id number] Age/Sex: 23 / F ADM Date: Loc: [facility] 258-[address]: Zhane Bella D.O. Ordering Physician: Zhane Bella D.O. Date of Service: 12/15/23 Procedure(s): CT angio chest Accession Number(s): [id number] cc: Physician,Non-Staff [place] [address] Patient Name: GEORGIE POND MRN: [id number] date: 2000 Sex: F Assigned Patient Location: [facility] Current Patient Location: [facility] Accession/Order Number: [id number] Exam Date: 12/15/2023 11:40 Report Date: 12/15/2023 [...] Signed By: 12/15/23 1335 DD/ 1332 TD/TT: Career Placement Specialist: Procedure Note Radiology, Radiologist, - 12/15/2023 [place] [address] CT Scan Report Signed Patient: GEORGIE POND TMR#: [id number] : 2000Acct:[id number] Age/Sex: 23 / FADM Date: Loc: [facility] 258-[address]: Zhane Bella D.O. Ordering Physician: Zhane Bella D.O. Date of Service: 12/15/23 Procedure(s): CT angio chest Accession Number(s): [id number] cc: Physician,Non-Staff Adriana [place] [address] Patient Name: GEORGIE POND MRN: [id number] date: 2000 Sex: F Assigned Patient Location: [facility] Current Patient Location: [facility] Accession/Order Number: [id number] Exam Date: 12/15/2023 11:40 Report Date: 12/15/2023 [...] M.D. Signed By:12/15/23 1335 DD/ 1332 TD/TT: Career Placement Specialist: Zhane Bella DO [facility] CT PROCEDURES Final Result documented in this encounter Visit Diagnoses Not on filedocumented in this encounter
--- OUTSIDE RECORDS SUMMARY | 2024-10-28 19:37 | XMS_ITS | Encounter Summary ---
Author Organization [facility] Address [address] [place] [address] Care Team Providers Care Short Range Air Defense Artillery Name Role Phone Unavailable Primary Care Provider Unavailabl e Encounter Details Date Type Department Care Team (Late st Contact Info) Description 12/10/2023 Abstract [facility] OB [address] [facility] [address] Christie Wiley LPN Social History Tobacco [...] 11/10/2024 2:20 PM EDT Office Visit [facility] [address] [place] [address] Mya Kaplan PA [address] [place] [address] [place], [place] [phone] documented as of this encounter Visit Diagnoses Not on filedocumented in this encounter
--- OUTSIDE RECORDS SUMMARY | 2024-10-28 19:37 | XMS_ITS | Encounter Summary ---
Author Organization [employer] Address [id number] [address] [place] [address] Care Team Providers Care Route Driver Coin Machines Name Role Phone No Pcp, No Pcp Primary Care Provider Unavailabl e Encounter Details Date Type Department Care Team (Late st Contact Info) Description 09/25/2024 Orders Only [facility]ne[facility] [address] [place] [phone] Madeline [facility] [address] [place] [phone] Bacterial vaginosis in (Primary Dx) Social History [...] often do you attend chur ch or yazdanism services? Never 03/26/2021 Do you belong to any clubs o r organizations such as methodist groups, unions, fraternal or athletic groups, or [...] Answer Date Recorded Total Score 4 08/29/2023 [facility] - [...] things needed for daily living? No 09/22/2024 [place] Depression Scale Answer Date Recorded [place] Depression Scale Total 13 09/12/2023 The thought [...] as of this encounter Care Teams Route Driver Coin Machines Relationship Specialty Start Date End Date No Pcp, [place] [address] PCP - General Family Medicine 09/01/24 documented as of this encounter
--- OUTSIDE RECORDS SUMMARY | 2024-10-28 19:37 | XMS_ITS | Encounter Summary ---
Author Organization [facility] Address [address] [place] [address] Care Team Providers Care Swatch Maker Name Role Phone Unavailable Primary Care Provider Unavailabl e Encounter Details Date Type Department Care Team (Late st Contact Info) Description 12/15/2023 Clinisync Result Encounter [facility] External Department Unsolicited Zhane Bella DO [address] [facility] [address] [place], [facility]11 Social History Tobacco Use Types Packs/Day Years [...] EDT Office Visit [facility] OB [address] [facility] [place] [address] Mya Kaplan PA [address] [facility] [place] [address] documented as of this encounter Procedures Procedure Name Priority Date/Time Associated Diagnosis Comments ECG 12-LEAD 12/15/2023 11:21 AM EDT documented in this encounter Results * ECG 12-LEAD (12/15/2023 11:21 AM EDT) Anatomical Region Laterality Modality Other 12/15/2023 11:2 1 AM EDT Narrative 12/16/2023 8:32 AM EDT [place] [id number] Electrocardiograph Report Signed Patient: GEORGIE POND MR#: [id number] : 2000 Acct:[id number] Age/Sex: 23 / F ADM Date: Loc: [facility] 258- Attending Dr: Zhane Bella D.O. Ordering Physician: Zhane Bella D.O. Date of Service: 12/15/23 Procedure(s): ECG 12 lead Accession Number(s): [id number] cc: [facility] Test Date: 2023-12-15 Pat Name: GEORGIE POND Department: Room: [facility] Gender: Female Equipment Cleaner And Tester: : 2000 Requested By: ZHANE BELLA Order Number: [id number] Reading MD: BEAR RICHARDSON Measurements Intervals [place] Rate: 80 P: 20 RI: 145 QRS: 32 QRSD: 86 T: 26 QT: 352 QTc: 408 Interpretive Statements SINUS RHYTHM Non-Specific T wave inversion in III WARNING: DATA QUALITY MAY AFFECT INTERPRETATION No previous ECG available for comparison Electronically Signed On 12-16-2023 8:32:05 EDT by BEAR RICHARDSON Dictated By: Bear Richardson M.D. Signed By: 12/16/23 0832 DD/ 1121 TD/TT: Instrument Shop Supervisor: Procedure Note Radiology, Radiologist, MD - 12/16/2023 [place] [id number] Electrocardiograph Report Signed Patient: GEORGIE POND TMR#: [id number] : 2000Acct:[id number] Age/Sex: 23 / FADM Date: Loc: [facility] 258-[address]: Zhane Bella D.O. Ordering Physician: Zhane Bella D.O. Date of Service: 12/15/23 Procedure(s): ECG 12 lead Accession Number(s): [id number] cc: [facility] Test Date: 2023-12-15 Pat Name: GEORGIE RAKAY Department: Room: [facility] Gender: Female Equipment Cleaner And Tester: : 2000 Requested By: ZHANE BELLA Order Number: [id number] Reading MD: BEAR RICHARDSON Measurements Intervals [place] Rate: 80 P: 20 RI: 145 QRS: 32 QRSD: 86 T: 26 QT: 352 QTc: 408 Interpretive Statements SINUS RHYTHM Non-Specific T wave inversion in III WARNING: DATA QUALITY MAY AFFECT INTERPRETATION No previous ECG available for comparison Electronically Signed On 12-16-2023 8:32:05 EDT by BEAR RICHARDSON Dictated By: Bear Richardson M.D. Signed By:12/16/23 0832 DD/ 1121 TD/TT: Instrument Shop Supervisor: us Zhane Bella DO [facility] Final Result documented in this encounter Visit Diagnoses Not on filedocumented in this encounter
--- OUTSIDE RECORDS SUMMARY | 2024-10-28 19:37 | XMS_ITS | Encounter Summary ---
Author Organization [facility] Address [address] [facility] [place] [address] Care Team Providers Care Director Government Name Role Phone Unavailable Primary Care Provider Unavailabl e Encounter Details Date Type Department Care Team (Late Contact Info) Description 12/12/2023 Abstract [facility] OB [address] [place] [phone] Osmany Bella DO [address] [facility] [address] [place], [facility]11 Social History Tobacco Use Types [...] 11/10/2024 2:20 PM EDT Office Visit [facility] OB [address] [place] [phone] Mya Kaplan PA [address] [facility] [address] [place], [place] [phone] documented as of this encounter Visit Diagnoses Not on filedocumented in this encounter
--- OUTSIDE RECORDS SUMMARY | 2024-10-28 19:37 | XMS_ITS | Encounter Summary ---
Author Organization [facility] Address [address] [place] [address] Care Team Providers Care Risk Management Specialist Name Role Phone Unavailable Primary Care Provider Unavailabl e Encounter Details Date Type Department Care Team (Late Contact Info) Description 08/05/2023 Abstract [facility] OB [address] [place] [phone] Kimi Olsen LPN [address] [facility]11 Social History Tobacco Use Types Packs/Day [...] 11/10/2024 2:20 PM EDT Office Visit [facility] OB [address] [place] [address] Mya Kaplan PA [address] [place], [place] [phone] documented as of this encounter Visit Diagnoses Not on filedocumented in this encounter
--- OUTSIDE RECORDS SUMMARY | 2024-10-28 19:37 | XMS_ITS | Clinical Summary ---
Author Organization [email or web address] Address [id number] [address] [place] [address] Care Team Providers Care Product Management Internship Name Role Phone No Pcp, No Pcp Primary Care Provider Unavailabl e Allergies No known active allergies Medications * This document contains information received from the source organization and may not represent a complete record from that organization. [id number] c acid () 29 mg iron- 1 [...] weeks. Marijuana use during 08/29/2023 Overview (08/29/2023): [id number] THC positive and patient educated on cessation. Hx of delivery, currently 08/27 Overview (08/29/2023): Twins delivered 02-03-2023 at 25w2d 07/28/23 cervical length 4 cm Acute cystitis 08/28/2023 Overview (08/28/2023): 08-22-23 treated in [place] ER with Macrobid Intractable chronic migraine without aura 2023 Overview (08/28/2023): 05/10/2023 Neuro consult placed Magnesium Citrate ordered 400mg daily Episode of recurrent major depressive disorder 0 07/06/2021 Overview (08/28/2023): Has appointment at [facility] on 09-18-23 Slow transit constipation 03/12/2019 [...] [address] [place] [id number] Madeline Gamboa APRN-SHANIA Bacterial vaginosis in (Primary Dx) 09/22/2024 Travel 09/21/2024 10:18 AM EDT - 09/21/2024 11:59 PM EDT Hospital Encounter [facility] - [facility] US Imaging [address] [place] [address] Discharge Disposition: Home 09/18/2024 10:04 PM EDT - 09/22/2024 3:00 AM EDT Hospital Encounter [facility] - GEN 3 Antepartum [address] [place] [address] Bala Randle MD Discharge Disposition: [facility] 09/18/2024 4:18 PM EDT - 09/18/2024 10:03 PM EDT Emergency [facility] - Emergency [address] [place] [address] Saroj Carreon, Suicide attempt ([facility]) (Primary Dx) Discharge Disposition: [facility] 09/18/2024 Travel 09/01/2024 Travel 08/03/2024 6:20 AM EDT - 08/03/2024 9:22 AM EDT Hospital Encounter [facility] [address] [place] [address] Ynes Gale, COLLECTIONS SPECIALIST-CN Saul Fan MD Discharge Disposition: Home 08/03/2024 Orders Only [facility] - [facility] [address] [place] [address] Violeta De Leon, COLLECTIONS SPECIALIST-CN Urinary tract infection in mother during , antepartum (Primary Dx) 08/03/2024 Travel from Last 3 Months Immunizations Immunization [...] Mother Isis batsheva Breast cancer Mother Isis batsheva Depression Mother Isis batsheva Diabetes Mother Isis batsheva Drug abuse Mother Isis batsheva Hypertension Mother Isis batsheva Ovarian cancer Mother Isis batsheva Suicide Attempts [...] In the past 12 months has e Y[employer], gas, oil, or water mascotsecret threatened to shut off services in your home? No 09/22/2024 Social Connection and Isolation Panel [NHANES] A nswer Date Recorded In a typical week, how many times do you talk on the phone with family, friends, or neighbors? Three times a week 03/26/20 How often do you get togethe r with friends or relatives? Never 03/26/2021 How often do you attend chur or sikh services? Never 03/26/2021 Do you [...] things needed for daily living? No 09/22/2024 [place] Depression Scale Answer Date Recorded [place] Depression Scale Total 13 09/12/2023 The thought [...] Recorded Do you need help finding a [facility] and/or a training [...] URINE CULTURE Routine 09/23/2024 4:56 PM EDT [facility] COMPREHENSIVE ANATOMIC SURVEY Routine 09/21/2024 [...] URINE CULTURE STAT 08/03/2024 6:21 AM EDT from Last 3 Months Results * (ABNORMAL) Urinalysis (09/23/2024 11:40 PM EDT) Only the most recent of3 resultswithin the time period is included. COLOR Yellow Yellow, Colorless 09/24/2024 1:13 AM [facility] TURBIDITY Clear Clear 09/24/2024 1:13 AM [facility] SPECIFIC GRAVITY 1.025 1.003 - 1.035 09/24/2024 1:13 AM [facility] NITRITE Negative Negative 09/24/2024 1:13 AM [facility] PH,URINE 6.0 5.0 - 8.5 09/24/2024 1:13 AM [facility] LEUKOCYTE ESTERASE Negative Negative 09/24/2024 1:13 AM [facility] PROTEIN Trace(A) Negative 09/24/2024 1:13 AM [facility] KETONES (URINE) Trace(A) Negative 1:13 AM [facility] UROBILINOGEN 4.0 eu/dL(A) 0.2 eu/dL, 1.0 eu/dL 09/24/2024 1:13 AM [facility] BILIRUBIN (URINE) Negative Negative 09/24/2024 1:13 AM [facility] BLOOD/HGB Negative Negative 09/24/2024 1:13 AM [facility] MUCOUS Present(A) None 09/24/2024 1:13 AM [facility] R.B.CELLS 0 0 - 5 09/24/2024 1:13 AM [facility] SQUAMOUS EPITHELIUM 3 0 - 5 09/24/2024 1:13 AM [facility] W.B.CELLS 2 0 - 5 09/24/2024 1:13 AM [facility] GLUCOSE (URINE) Negative Negative, 250 mg/dL, >1000 mg/dL 09/24/2024 1:13 AM [facility] Urine Urine specimen collection, clean catch / Unknown 09/23/2024 11:40 PM EDT 09/23/2024 11:51 PM EDT Madelnie Gamboa COLLECTIONS SPECIALIST-CN URINE ORDERABLES Final Resu lt [facility] [address] [place] [address], * Chlamydia/GC by PCR Nighat Swab (09/23/2024 11:17 PM EDT) CHLAMYDIA DNA(PCR) Negative Negative 09/25/2024 6:28 AM EDT [facility] Comment:Chlamydia trachomati s not detected by nucleic acid amplification. This does not exclude the possibility of infection because results are dependent on adequate specimen collection. GONORRHOEAE DNA(PCR) Negative Negative 09/25/2024 6:28 AM EDT [facility] Comment:Neisseria gonorrhoea e not detected by nucleic acid amplification. This does not exclude the possibility of infection because results are dependent on adequate specimen collection. Swab Vaginal structure / Unknown 09/23/2024 11:17 PM EDT 09/23/2024 11:27 PM EDT Madeline Gamboa FRANCES MICROBIOLOGY - GENERAL ORDE RABLES Final Result [facility] [address] [place] [address], [place] [phone] * (ABNORMAL) Vaginitis Panel PCR (09/23/2024 11:17 PM EDT) BACT. VAGINOSIS DNA Detected(A) Not Detected 09/24/2024 9:29 PM EDT [facility] Comment:Qualitative results are reported based on detection and quantitation of targeted organism markers which include: Lactobacillus spp. (L. crispatus and L. jensenii), Gardnerella vaginalis, Atopobium vaginae, Bacterial Vaginosis Associated Bacteria-2 (BVAB-2) and Megasphaera-1. SHANEKA SPECIES DNA Not Detected Not Detected 09/24/2024 9:29 PM EDT [facility] Comment:Shaneka species not detected include: C. albicans, C. tropicalis, C. parapsilosis or C. dubliniensis. SHANEKA KRUSEI DNA Not Detected Not Detected 09/24/2024 9:29 PM EDT [facility] Comment:No Shaneka krusei de tected. SHANEKA GLABRATA DNA Not Detected Not Detected 09/24/2024 9:29 PM EDT [facility] Comment:No Shaneka glabrata detected. TRICHOMONAS VAG DNA Not Detected Not Detected 09/24/2024 9:29 PM EDT [facility] Comment: No Trichomonas vaginalis detected. BD MAX Vaginal Panel has not been evaluated for patients under 18 years old. Results for these patients should be reviewed and assessed in accordance with clinical presentation to determine patient diagnosis. Swab Vaginal structure / Unknown 09/23/2024 11:17 PM EDT 09/23/2024 11:26 PM EDT us Madeline Gamboa SHAYNE-PUJA MICROBIOLOGY - GENERAL ORDE RABLES Final Result Performing Organization Address City/[facility]/ZIP Co de Phone Number [facility] [address] [place] [address], * Urine Culture Urine, Clean Catch Midstream (09/23/2024 4:56 PM EDT) Only the most recent of2 resultswithin the time period is included. CULTURE RESULTS 10-50,000 ORGANISMS/mL NORMAL UROGENITAL ALEX 09/24/2024 3:41 PM EDT [facility] Urine Urine specimen collection, clean catch / Unknown 09/23/2024 4:56 PM EDT 09/23/2024 5:02 PM EDT Narrative [facility] - 09/24/2024 3:41 PM EDT Urine received without preservative - delays in transport may affect results. Interpret with caution and clinical correlation is recommended. Lucius Townsend MD MICROBIOLOGY - GENERAL ORDERABL ES Final Result Performing Organization Address [facility] Co de Phone Number [facility] [address] [place] [address], * [facility] COMPREHENSIVE ANATOMIC SURVEY (09/21/2024 11:04 AM EDT) Anatomical Region Laterality Modality OB-MULE TENDER Ultrasound 09/21/2024 10:3 2 AM EDT Narrative 09/21/2024 11:43 AM EDT NAME: SALTY SANCHEZ : 2000 SEX: F Accession Number: [id number] ORDERING PHYSICIAN: SONJA COLEMAN REFERRING PHYSICIAN: ZHANE BELLA Coding ----- --------- Procedures 63901: Ultrasound, uterus, real time with image documentation, and maternal evaluation plus detailed anatomic examination, transabdominal approach;single or first gestation STAT ----- --------- Patient Location: Inpatient Indication ----- --------- Screening for Anatomic Survey, Previous , Obesity in , Supervision of high risk . History ----- --------- OB History 5. Para 2 [id number] Maternal Assessment ----- --------- Physical Exam Height [...] EFW (oz) 9 oz EFW by: Hadlock ([id number]) Extended Tibia 51.5 mm 30w 5d 47% [employer] Librarian 4.5 mm CM 4.8 mm 3% Nicolaides [...] Heart / Thorax RVOT view. LVOT view. 5-dswylg-bvlodsr view. Aortic arch view. Ductal arch view. [...] SANCHEZ : 2000 SEX: F Accession Number: [id number] ORDERING PHYSICIAN: SONJA COLEMAN REFERRING PHYSICIAN: ZHANE BELLA Coding ----- --------- Procedures [id number]: Ultrasound, uterus, real time with imagedocumentation, and maternal evaluation plus detailed anatomic examination, transabdominalapproach;single or first gestation STAT ----- --------- Patient Location: Inpatient Indication ----- --------- Screening for Anatomic Survey, Previous , Obesity in ,Supervision of high risk . History ----- --------- OB History 5. Para 2 [id number] Maternal Assessment ----- --------- Physical Exam Height [...] EFW (oz) 9 oz EFW by: Hadlock ([id number]) Extended Tibia 51.5 mm 30w 5d 47% [employer] Librarian 4.5 mm CM 4.8 mm 3% Nicolaides [...] Heart / Thorax RVOT view. LVOT view. 2-ltvuvn-gljmccw view. Aortic archview. Ductal arch view. Great [...] with thepatient as necessary. Sonja Coleman DO [facility] US ORDERABLES Final Res ult * (ABNORMAL) Valproic acid, depakane (09/19/2024 9:04 PM EDT) Only the most recent of3 resultswithin the time period is included. VALPROIC ACID 31(L) 50 - 100 ug/mL 09/19/2024 9:47 PM EDT [facility] Blood Venous blood / Unknown 09/19/2024 9:04 PM EDT 09/19/2024 9:04 PM EDT Marie Lopez MD LAB BLOOD ORDERABLES Final Resul t [facility] [address] [place] [address], [place] [phone] * Ammonia (09/19/2024 9:04 PM EDT) Only the most recent of3 resultswithin the time period is included. AMMONIA 32 18 - 72 umol/L 09/19/2024 10:34 PM EDT [facility] Blood Venous blood / Unknown 09/19/2024 9:04 PM EDT 09/19/2024 9:04 PM EDT Marie Lopez MD LAB BLOOD ORDERABLES Final Resul t Performing Organization Address [facility] Co de Phone Number [facility] [address] [place] [address], * Syphilis Total (Unknown Syphilis Status) (09/19/2024 2:49 AM EDT) SYPHILIS TOTAL <0.2 <=0.8 AI 09/21/2024 3:30 PM EDT [facility] Blood Venous blood / Unknown 09/19/2024 2:49 AM EDT 09/19/2024 2:49 AM EDT Narrative [facility] - 09/21/2024 3:30 PM EDT NON REACTIVE No serologic evidence of infection to Treponema pallidum. Repeat testing may be considered in patients with suspected acute or primary syphilis in 2 to 4 weeks. Lexus Byrd MD LAB BLOOD ORDERABLES Final Re sult Performing Organization Address City/[facility]/ZIP Co de Phone Number [facility] [address] [place] [address], * (ABNORMAL) CBC auto differential (09/19/2024 2:49 AM EDT) Only the most recent of3 resultswithin the time period is included. WBC 9.2 4 - 11 x10E9/L 09/19/2024 3:48 AM EDT [facility] RBC Count 3.80 3.8 - 5.2 X10E12/L 09/19/2024 3:48 AM EDT [facility] Hemoglobin 10.3(L) 11.7 - 15.5 g/dL 09/19/2024 3:48 AM EDT [facility] Hematocrit 30.4(L) 35 - 47 % 09/19/2024 3:48 AM EDT [facility] MCV 80 80 - 100 fL 09/19/2024 3:48 AM EDT [facility] MCH 27.2 27 - 34 pg 09/19/2024 3:48 AM EDT [facility] MCHC 34.0 32 - 36 g/dL 09/19/2024 3:48 AM EDT [facility] RDW 13.6 11.5 - 15 % 09/19/2024 3:48 AM EDT [facility] Platelet Count 231 150 - 450 X10E9/L 09/19/2024 3:48 AM EDT [facility] MPV 8.4 7 - 12 fL 09/19/2024 3:48 AM EDT [facility] Neutrophils % 74.9 % 09/19/2024 3:48 AM EDT [facility] Lymphocytes % 20.2 % 09/19/2024 3:48 AM EDT [facility] Monocytes % 4.3 % 09/19/2024 3:48 AM EDT [facility] Eosinophils % 0.3 % 09/19/2024 3:48 AM EDT [facility] Basophils % 0.3 % 09/19/2024 3:48 AM EDT [facility] Neutrophils Absolute (A) 6.9(H) 1.5 - 6.6 10*3/uL 09/19/2024 3:48 AM EDT [facility] Lymphocytes Absolute 1.9 1.0 - 3.5 10*3/uL 09/19/2024 3:48 AM EDT [facility] Monocytes Absolute 0.4 0.0 - 0.9 10*3/uL 09/19/2024 3:48 AM EDT [facility] Eosinophils Absolute 0.0 0.0 - 0.4 10*3/uL 09/19/2024 3:48 AM EDT [facility] Basophils Absolute 0.0 0.0 - 0.2 10*3/uL 09/19/2024 3:48 AM EDT [facility] Differential Type AUTOMATED DIFFERENTIAL 09/19/2024 3:48 AM EDT [facility] Blood Venous blood / Unknown 09/19/2024 2:49 AM EDT 09/19/2024 2:50 AM EDT us Lexus Byrd MD LAB BLOOD ORDERABLES Final Re sult [facility] [address] [place] [address], [place] [phone] * (ABNORMAL) Comprehensive metabolic panel (09/19/2024 2:49 AM EDT) Only the most recent of2 resultswithin the time period is included. SODIUM 138 134 - 146 mmol/L 09/19/2024 3:57 AM EDT [facility] POTASSIUM 3.5 3.5 - 5.0 mmol/L 09/19/2024 3:57 AM EDT [facility] CHLORIDE 106 98 - 109 mmol/L 09/19/2024 3:57 AM EDT [facility] CARBON DIOXIDE 25 22 - 32 mmol/L 09/19/2024 3:57 AM EDT [facility] ANION GAP 7 5 - 15 mmol/L 09/19/2024 3:57 AM EDT [facility] BLOOD UREA NITROGEN 5 5 - 23 mg/dL 09/19/2024 3:57 AM EDT [facility] CREATININE 0.45 0.40 - 1.00 mg/dL 09/19/2024 3:57 AM EDT [facility] Comment:METHOD TRACEABLE TO IDMS STANDARD GLUCOSE 96 65 - 99 mg/dL 09/19/2024 3:57 AM EDT [facility] CALCIUM 8.1(L) 8.5 - 10.5 mg/dL 09/19/2024 3:57 AM EDT [facility] TOTAL PROTEIN 5.5(L) 6.0 - 8.0 g/dL 09/19/2024 3:57 AM EDT [facility] ALBUMIN 3.0(L) 3.2 - 5.3 g/dL 09/19/2024 3:57 AM EDT [facility] ALKALINE PHOSPHATASE 121 39 - 130 U/L 09/19/2024 3:57 AM EDT [facility] AST 11 <=41 U/L 09/19/2024 3:57 AM EDT [facility] ALT 5 <=31 U/L 09/19/2024 3:57 AM EDT [facility] BILIRUBIN,TOTAL 0.4 0.3 - 1.2 mg/dL 09/19/2024 3:57 AM EDT [facility] EGFR Non-Race Dependent >90 >=60 ml/min/1.7 3sq.m 09/19/2024 3:57 AM EDT [facility] Comment: Reported eGFR is based on the CKD-EPI 2020 equation that does not use a race coefficient. Blood Venous blood / Unknown 09/19/2024 2:49 AM EDT 09/19/2024 2:49 AM EDT us Lexus Byrd MD LAB BLOOD ORDERABLES Final Re sult [facility] [address] [address] [place] [address], * (ABNORMAL) POCT Nursing Urine Macroscopic UA (09/18/2024 7:24 PM EDT) Only the most recent of2 resultswithin the time period is included. POC Urine Specific [place] 1.015 1.010, 1.015, 1.020, 1.025 09/18/2024 7:20 PM EDT [facility] POC Urine Leukocyte Esterase Moderate(A) Negative 09/18/2024 7:20 PM EDT [facility] POC Urine Nitrite Negative Negative 09/18/2024 7:20 PM EDT [facility] POC Urine pH 7.0 5.0, 6.0, 6.5, 7.0, 7.5, 8.0, 8.5, 5.5 09/18/2024 7:20 PM EDT [facility] POC Urine Protein Negative Negative 09/18/2024 7:20 PM EDT [facility] POC Urine Glucose Negative Negative 09/18/2024 7:20 PM EDT [facility] POC Urine Ketones 80 mg/dL(A) Negative 09/18/2024 7:20 PM EDT [facility] POC Urine Urobilinogen 0.2 E.U./dL 09/18/2024 7:20 PM EDT [facility] POC Urine Bilirubin Negative Negative 09/18/2024 7:20 PM EDT [facility] POC Urine Blood/HGB Negative Negative 09/18/2024 7:20 PM EDT [facility] Urine 09/18/2024 7:24 PM EDT 09/18/2024 7:20 PM EDT us Saroj Carreon DO POINT OF CARE TEST ORDER DONELL Final Result [facility] [address] [place] [address], * Drug Screen, Urine (09/18/2024 6:52 PM EDT) AMPHETAMINE/METHAMP Negative Negative 09/18 7:21 PM EDT [facility] Comment:AMPH/METH screening cut off = 1000 ng/mL COCAINE METABOLITE Negative Negative 2024 7:21 PM EDT [facility] Comment:Cocaine screening cu t off value = 300 ng/mL ECSTASY Negative Negative 09/18/2024 7:21 PM EDT [facility] Comment:Ecstasy screening cu t off value = 500 ng/mL METHADONE Negative Negative 09/18/2024 7:21 PM EDT [facility] Comment:Methadone screening cut off value = 300 ng/mL. OPIATES Negative Negative 09/18/2024 7:21 PM EDT [facility] Comment: Opiates screening cut off value = 300 ng/mL This test is used for the detection of codeine, hydrocodone (>1000 ng/mL), morphine and hydromorphone (>900 ng/mL) in urine. OXYCODONE Negative Negative 09/18/2024 7:21 PM EDT [facility] Comment: Oxycodone screening cut off value = 300 ng/mL This test is used for the detection of oxycodone and oxymorphone in urine. PHENCYCLIDINE Negative Negative 09/18/2024 7:21 PM EDT [facility] Comment:Phencyclidine screen ing cut off value = 25 ng/mL CANNABINOIDS Negative Negative 09/18/2024 7:21 PM EDT [facility] Comment:Cannabinoids/THC scr eening cut off value = 50 ng/mL Urine Barbiturates Negative Negative 2024 7:21 PM EDT [facility] Comment:Barbiturates screeni ng cut off value = 200 ng/mL BENZODIAZEPINES Negative Negative 7:21 PM EDT [facility] Comment:Benzodiazepines scre ening cut off value = 200 ng/mL Urine Urine specimen collection, clean catch / Unknown Collection / Unknown 09/18/2024 6:52 PM EDT 09/18/2024 7:00 PM EDT us [employer] DO URINE ORDERABLES Final R esult Performing Organization Address [facility] Co de Phone Number [facility] [address] [place] [address], * Light Blue Top (09/18/2024 4:55 PM EDT) Extra Tube Auto Resulted 09/18/2024 6:01 PM EDT [facility] Blood Venous blood / Unknown 09/18/2024 4:55 PM EDT 09/18/2024 5:00 PM EDT us [employer] DO LAB BLOOD ORDERABLES Fin al Result Performing Organization Address City/[facility]/ZIP Co de Phone Number [facility] [address] [place] [address], [place] * (ABNORMAL) Iron and TIBC (09/18/2024 4:55 PM EDT) Pathologist [facility] IRON 62 50 - 170 ug/dL 09/18/2024 8:57 PM EDT [facility] TRANSFERRIN 400(H) 168 - 336 mg/dL 09/18/2024 8:57 PM EDT [facility] IRON BINDING 560(H) 250 - 425 ug/dL 09/18/2024 8:57 PM EDT [facility] IRON SATURATION 11(L) 15 - 50 % SATURATION 09/18/2024 8:57 PM EDT [facility] Blood Venous blood / Unknown 09/18/2024 4:55 PM EDT 09/18/2024 5:00 PM EDT [facility] LAB BLOOD ORDERABLES Fin al Result Performing Organization Address [facility]/ZIP Co de Phone Number [facility] [address] [place] [address], [place] [phone] * Ethanol (09/18/2024 4:55 PM EDT) ETHANOL <0.010 <=0.080 g/dL 09/18/2024 5:21 PM EDT [facility] Comment: This report is intended for use in clinical monitoring or management of patients. Blood 09/18/2024 4:55 PM EDT 09/18/2024 5:00 PM EDT [facility] LAB BLOOD ORDERABLES Fin al Result [facility] [address] [place] [address], [place] * (ABNORMAL) Acetaminophen level (09/18/2024 4:55 PM EDT) ACETAMINOPHEN 6.6(L) 10.0 - 30.0 ug/mL 09/18/2024 5:21 PM EDT [facility] Blood 09/18/2024 4:55 PM EDT 09/18/2024 5:00 PM EDT Narrative [facility] - 09/18/2024 5:21 PM EDT Reference ranges are for therapeutic limits. us Teracentwalder DO LAB BLOOD ORDERABLES Fin al Result Performing Organization Address [facility] Co de Phone Number [address] [place] [address], [place] * Salicylate level (09/18/2024 4:55 PM EDT) SALICYLATE <4.0 2.0 - 25.0 mg/dL 09/18/2024 5:21 PM EDT [facility] Blood 09/18/2024 4:55 PM EDT 09/18/2024 5:00 PM EDT Narrative [facility] - 09/18/2024 5:21 PM EDT Reference ranges are for therapeutic limits. us [employer] DO LAB BLOOD ORDERABLES Fin al Result Performing Organization Address [facility] Co de Phone Number [address] [place] [address], [place] * ECG 12 lead (09/18/2024 4:43 PM EDT) 09/18/2024 4:43 PM EDT Narrative [facility] - 09/18/2024 9:43 PM EDT us Teracentwalder DO ECG ORDERABLES Final Re sult Performing Organization Address City/[facility]/ZIP Co de Phone Number [facility] * Critical Care (09/18/2024 4:27 PM EDT) [...] post 50g load (09/01/2024 3:45 PM EDT) [facility] GLUCOSE, 1HR POST 50GM LOAD 126 65 - 139 mg/dL 09/01/2024 10:25 PM EDT [facility] Blood Venous blood / Unknown Venipuncture / Unknown 09/01/2024 3:45 PM EDT 09/01/2024 4:30 PM EDT us Zhane Bella DO LAB BLOOD ORDERABLES Final Resu lt [facility] [address] [place] [address], [place] [phone] from Last 3 Months Insurance [facility] MEDICAID ANTH MEDICAID Advance Directives * Full Code (Latest [...] 7:11 AM 12/23/2022 7:06 PM Care Teams Product Management Internship Relationship Specialty Start Date End Date No [place] [address] PCP - General Family Medicine 09/01/24
--- OUTSIDE RECORDS SUMMARY | 2024-10-28 19:37 | XMS_ITS | Encounter Summary ---
Author Organization [facility] Address [address] [place] [address] Care Team Providers Care Director Of Photography Name Role Phone Unavailable Primary Care Provider Unavailabl e Encounter Details Date Type Department Care Team (Late Contact Info) Description 12/17/2023 Abstract [facility] [address] [place] [phone] Marie Cuellar LPN [address] [place] [id number] Social History Tobacco Use Types Packs/Day Years [...] 11/10/2024 2:20 PM EDT Office Visit [facility] [address] [place] [address] Mya Kaplan PA [address] [place], [place] [phone] documented as of this encounter Visit Diagnoses Not on filedocumented in this encounter
--- OUTSIDE RECORDS SUMMARY | 2024-10-28 19:38 | XMS_ITS | Encounter Summary ---
Author Organization [employer] Address [facility][id number] [address] [place] [address] Care Team Providers Care Medical Driver Name Role Phone No Pcp, No Pcp Primary Care Provider Unavailabl e Encounter Details Date Type Department Care Team (Late st Contact Info) Description 05/10/2021 Telephone [facility] [address] [place] [address] Kristyn Gutierrez CMA Social History [...] Total Score 13 03/26/2021 [facility] [place] of Occupat ional Health - Occupational Stress [...] covid test please send order to gomez. [phone] documented in this encounter Plan of Treatment [...] documented as of this encounter Care Teams Medical Driver Relationship Specialty Start Date End Date No Pcp[place] [address] PCP - General Family Medicine 09/01/24 documented as of this encounter
--- OUTSIDE RECORDS SUMMARY | 2024-10-28 19:38 | XMS_ITS | Encounter Summary ---
Author Organization [facility] Address [address] [place] [address] Care Team Providers Care Child Nurse Name Role Phone Unavailable Primary Care Provider Unavailabl e Encounter Details Date Type Department Care Team (Late st Contact Info) Description 10/26/2024 Telephone [facility] [address] [place] [phone] Osmany Bella, DO [address] [place], [place] [phone] Social History Tobacco Use Types Packs/Day Years [...] Wiley LPN - 10/26/2024 8:38 AM ED[address] [facility] called and voiced that they received [...] be delivered on 11/03/24 via repeat . Tie Bucker was informed. Christie Wiley LPN documented in this encounter Plan of Treatment Upcoming Encounters Date Type Department Care Team (Late st Contact Info) Description 11/10/2024 2:20 PM EDT Office Visit [facility] [address] [place] [address] Mya Kaplan PA [address] [place] [address] documented as of this encounter Visit Diagnoses Diagnosis Kidney stones Calculus of kidney documented in this encounter
--- OUTSIDE RECORDS SUMMARY | 2024-10-28 19:38 | XMS_ITS | Encounter Summary ---
Author Organization [employer] Address [id number] [address] [place] [address] Care Team Providers Care Extension Work Instructor Name Role Phone No Pcp, No Pcp Primary Care Provider Unavailabl e Encounter Details Date Type Department Care Team (Late st Contact Info) Description 05/23/2021 Telephone [facility] [address] [place] [address] [place] [address] Mona Delvalle CMA Social History [...] any clubs o r organizations such as jain groups, unions, fraternal or athletic groups, or [...] Answer Date Recorded Total Score 5 05/25/2021 [facility] [place] of Occupat ional Health - Occupational Stress [...] documented as of this encounter Care Teams Extension Work Instructor Relationship Specialty Start Date End Date No Pcp, No Pcp [place]YL[place] [address] PCP - General Family Medicine 09/01/24 documented as of this encounter
--- OUTSIDE RECORDS SUMMARY | 2024-10-28 19:38 | XMS_ITS | Encounter Summary ---
Author Organization [facility] Address [facility]-[id number] [address] [place] [address] Care Team Providers Care Business Mail Entry Clerk Name Role Phone No Pcp, No Pcp Primary Care Provider Unavailabl e Encounter Details Date Type Department Care Team (Late st Contact Info) Description 01/09/2023 Orders Only [facility]- [facility] at [facility] [address] [place] [phone] Ref Prov, [place] [address] Social History Tobacco Use Types Packs/Day Years [...] any clubs o r organizations such as zoroastrian groups, unions, fraternal or athletic groups, or [...] Answer Date Recorded Total Score 15 08/03/2021 [facility] of Occupat ional Health - [...] Recorded Do you need help finding a [facility] and/or a training program? No [...] as of this encounter Care Teams Business Mail Entry Clerk Relationship Specialty Start Date End Date No Pcp, No Pcp [place]YL[place] [address] PCP - General Family Medicine 09/01/24 documented as of this encounter
--- OUTSIDE RECORDS SUMMARY | 2024-10-28 19:38 | XMS_ITS | Encounter Summary ---
Author Organization [employer] Address [facility][id number] [address] [place] [address] Care Team Providers Care Psychiatric Attendant Name Role Phone No Pcp, No Pcp Primary Care Provider Unavailabl e Encounter Details Date Type Department Care Team (Late st Contact Info) Description 05/15/2021 Telephone [facility] [address] [place] [address] [place] [address] Mona Delvalle CMA Social History [...] often do you attend chur ch or latter-day services? Never 03/26/2021 Do you belong to any clubs o r organizations such as bahai groups, unions, fraternal [...] Answer Date Recorded Total Score 13 03/26/2021 [facility] [place] of Occupat ional Health - Occupational Stress [...] documented as of this encounter Care Teams Psychiatric Attendant Relationship Specialty Start Date End Date No Pcp[place] [address] PCP - General Family Medicine 09/01/24 documented as of this encounter
--- OUTSIDE RECORDS SUMMARY | 2024-10-28 19:38 | XMS_ITS | Encounter Summary ---
Author Organization [facility] Address [address] [place] [address] Care Team Providers Care Damage Adjuster Name Role Phone Unavailable Primary Care Provider Unavailabl e Encounter Details Date Type Department Care Team (Late st Contact Info) Description 10/24/2024 Clinisync Result Encounter [facility] External Department Unsolicited Osmany Bella DO [address] [place] [address] Social History Tobacco Use Types Packs/Day Years [...] EDT Office Visit [facility] [address] [place] [phone] Mya Kaplan PA [address] [place] [address] documented as of this encounter Procedures Procedure Name Priority Date/Time Associated Diagnosis Comments [facility] CMP (CMP) (FOR REMOTE [facility] USE) Routine 10/24/2024 2:03 AM EDT ALL CBC WITH AUTO DIFF Routine 10/24/2024 2:03 AM EDT [facility] URINE MICROSCOPIC ONLY Routine 10/24/2024 12:30 AM EDT [facility] UA (CLEAN/CATCH) HARP REGULATOR/MICRO IF IND. Routine 10/24/2024 12:30 AM EDT documented in this encounter Results * (ABNORMAL) [facility] CMP (CMP) (FOR REMOTE [facility] USE) (10/24/2024 2:03 AM EDT) SODIUM 138 136 - 145 mmol/L [facility] POTASSIUM 3.6 3.5 - 5.1 mmol/L [facility] CHLORIDE 104 98 - 107 mmol/L [facility] CARBON DIOXIDE 24.0 21.0 - 32.0 mmol/L [facility] ANION GAP 13.6 [facility] GLUCOSE 87 74 - 106 mg/dL [facility] BLOOD UREA NITROGEN 5.0(L) 7.0 - 18.0 mg/dL [facility] CREATININE 0.40(L) 0.55 - 1.02 mg/dL TB[facility] TBH EGFR-AF INDIAN >60 >=60 mL/min/1. 73m 2 TBH TBH EGFR-NON AF INDIAN >60 >=60 mL/min/1. 73m 2 [facility] BUN [...] Osmany Jena DO [facility] Final Result [facility] TB * (ABNORMAL) ALL CBC WITH AUTO DIFF (10/24/2024 2:03 AM EDT) [facility] TB WBC 8.7 4.0 - 11.0 10 [...] URINE MICROSCOPIC ONLY (10/24/2024 12:30 AM EDT) [facility] WBC 2-5(A) NONE SEEN #/HPF TB[facility] [...] DO CLINISYNC Final Result Performing Organization Address [facility] Co de Phone Number CL[facility]NC [facility] * (ABNORMAL) [facility] UA (CLEAN/CATCH) HARP REGULATOR/MICRO IF IND. (10/24/2024 12:30 AM EDT) COLOR [...] - 10/24/2024 1:25 AM EDT us Osmany Jena DO [facility] Final Result Performing Organization Address City/State/[facility] Co de Phone Number [facility] documented in this encounter Visit Diagnoses Not on filedocumented in this encounter
--- OUTSIDE RECORDS SUMMARY | 2024-10-28 19:38 | XMS_ITS | Encounter Summary ---
Author Organization [facility] Address [address] [place] [address] Care Team Providers Care Disability Coordinator Name Role Phone Unavailable Primary Care Provider Unavailabl e Encounter Details Date Type Department Care Team (Late st Contact Info) Description 11/22/2023 Clinisync Result Encounter [facility] External Department Unsolicited Zhane Bella DO [address] [place] [address] Social History Tobacco Use Types Packs/Day Years [...] EDT Office Visit [facility] [address] [place] [address] Mya Kaplan PA [address] [place] [address] documented as of this encounter Procedures Procedure Name Priority Date/Time Associated Diagnosis Comments US RENAL BI 11/22/2023 3:40 PM EDT documented in this encounter Results * US RENAL BI (11/22/2023 3:40 PM EDT) Anatomical Region Laterality Modality Other 11/22/2023 3:40 PM EDT Narrative 11/22/2023 3:[place] [address] Ultrasound Report Signed Patient: GEORGIE POND MR#: [id number] : 2000 Acct:[id number] Age/Sex: 23 / F ADM Date: Loc: [facility] 251-[address]: Zhane Bella D.O. Ordering Physician: Zhane Bella D.O. Date of Service: 11/22/23 Procedure(s): US renal BI Accession Number(s): [id number] cc: Zhane Bella D.O.; Physician,Non-Staff [place] [address] Patient Name: GEORGIE POND MRN: [id number] date: 2000 Sex: F Assigned Patient Location: [facility] Current Patient Location: [facility] Accession/Order Number: [id number] Exam Date: 11/22/2023 14:20 Report Date: 11/22/2023 [...] Signed By: 11/22/23 1542 DD/ 1540 TD/TT: Cardiopulmonary Technician: Procedure Note Radiology, Radiologist, MD - 11/22/2023 [place] [address] Ultrasound Report Signed Patient: GEORGIE POND TMR#: [id number] : 2000Acct:[id number] Age/Sex: 23 / FADM Date: Loc: [facility] 251-[address]: Zhane Bella D.O. Ordering Physician: Zhane Bella D.O. Date of Service: 11/22/23 Procedure(s): US renal BI Accession Number(s): [id number] cc: Zhane Bella D.O.; Physician,Non-Staff Adriana [address] [place] [id number] Patient Name: GEORGIE POND MRN: [id number] date: 2000 Sex: F Assigned Patient Location: [facility] Current Patient Location: [facility] Accession/Order Number: [id number] Exam Date: 11/22/2023 14:20 Report Date: 11/22/2023 [...] M.D. Signed By:11/22/23 1542 DD/ 1540 TD/TT: Cardiopulmonary Technician: us Zhane Monahano DO [facility] Final Result documented in this encounter Visit Diagnoses Not on filedocumented in this encounter
--- OUTSIDE RECORDS SUMMARY | 2024-10-28 19:38 | XMS_ITS | Encounter Summary ---
Author Organization [employer] Address [facility]-[id number] [address] [place] [address] Care Team Providers Care Retail Supervisor Name Role Phone No Pcp, No Pcp Primary Care Provider Unavailabl e Encounter Details Date Type Department Care Team (Late st Contact Info) Description 05/17/2021 Orders Only [facility] [address] [place] [address] Mona Delvalle CMA Body aches; [...] often do you attend chur ch or orthodoxy services? Never 03/26/2021 Do you belong to any clubs o r organizations such as cheondoism groups, unions, fraternal or athletic groups, or [...] Answer Date Recorded Total Score 13 03/26/2021 [facility] of Occupat ional Health [...] Negative Negative SUNQUEST NASOPHARYNGEAL 05/11/2021 Loretta Brice APRN-VP PRODUCT MICROBIOLOGY - GENE RAL ORDERABLES Final Result [...] as of this encounter Care Teams Retail Supervisor Relationship Specialty Start Date End Date No Pcp, [place] [address] PCP - General Family Medicine 09/01/24 documented as of this encounter
--- OUTSIDE RECORDS SUMMARY | 2024-10-28 19:38 | XMS_ITS | Encounter Summary ---
Author Organization [facility] Address [address] [place] [address] Care Team Providers Care Driller Operator Name Role Phone Unavailable Primary Care Provider Unavailabl e Encounter Details Date Type Department Care Team (Late st Contact Info) Description 10/23/2024 Clinisync Result Encounter [facility] External Department Unsolicited Zhane Bella DO [address] [place] [address] Social History Tobacco Use Types Packs/Day Years [...] EDT Office Visit [facility] [address] [place] [phone] Mya Kaplan PA [address] [place] [address] documented as of this encounter Procedures Procedure Name Priority Date/Time Associated Diagnosis Comments US OB CERVICAL LENGTH 10/23/2024 4:04 PM EDT documented in this encounter Results * US OB CERVICAL LENGTH (10/23/2024 4:04 PM EDT) Anatomical Region Laterality Modality Other 10/23/2024 4:04 PM EDT Narrative 10/23/2024 4:06 [place] [address] Ultrasound Report Signed Patient: GEORGIE POND MR#: [id number] : 2000 Acct:[id number] Age/Sex: 24 / F ADM Date: 10/23/24 Loc: US Attending Dr: Mya Kaplan Ordering Physician: Zhane Bella D.O. Date of Service: 10/23/24 Procedure(s): US OB cervical length Accession Number(s): [id number] cc: Zhane Bella D.O.; Physician,Non-Staff Adriana [address] [place] [address] Patient Name: GEORGIE POND MRN: [id number] date: 2000 Sex: F Assigned Patient Location: US Current Patient Location: Accession/Order Number: [id number] Exam Date: 10/23/2024 16:03 Report Date: 10/23/2024 [...] Pulido M.D. 10/23/2024 4:04 PM Dictation Location: [place] [address] Electronically authenticated by: [id number] Y Date: 10/23/2024 16:04 Dictated By: Maulik Pulido D.O. Signed By: 10/23/24 1606 DD/ 1604 TD/TT: Inside Parts Sales: Procedure Note Radiology, Radiologist, MD - 10/23/2024 [place] [address] Ultrasound Report Signed Patient: GEORGIE POND TMR#: [id number] : 2000Acct:[id number] Age/Sex: 24 / FADM Date: 10/23/24 Loc: US Attending Dr: Mya Kaplan Ordering Physician: Zhane Bella D.O. Date of Service: 10/23/24 Procedure(s): US OB cervical length Accession Number(s): [id number] cc: Zhane Bella D.O.; Physician,Non-Staff [address] [id number] Patient Name: GEORGIE POND MRN: [id number] date: 2000 Sex: F Assigned Patient Location: US Current Patient Location: Accession/Order Number: [id number] Exam Date: 10/23/2024 16:03 Report Date: 10/23/2024 16:04 At the request of: ZHANE BELLA DO Procedure: US OB cervical length Ultrasound assessment of the uterine cervix. HISTORY: Incompetent cervix. The cervix has a length of 4.0 cm. Cervical os closed. heart exym074 bpm. Cephalic presentation with longitudinal lie. US/US OB cervical length IMPRESSION: 4 cm cervical length. Impression dictated by: Maulik Pulido M.D. 10/23/2024 4:04 PM Dictation Location: [place] [address] Electronically authenticated by: [id number] Y Date: 6:04 Dictated By: Maulik Pulido D.O. Signed By:10/23/24 1606 DD/ 1604 TD/TT: Inside Parts Sales: us Zhane Bella DO [facility] Final Result documented in this encounter Visit Diagnoses Not on filedocumented in this encounter
--- OUTSIDE RECORDS SUMMARY | 2024-10-28 19:38 | XMS_ITS | Encounter Summary ---
Author Organization [employer] Address [facility][id number] [address] [place] [address] Care Team Providers Care Dairy Bar Manager Name Role Phone No Pcp, No Pcp Primary Care Provider Unavailabl e Encounter Details Date Type Department Care Team (Late st Contact Info) Description 10/21/2023 Telephone [facility] [address] [place] [address] Dania Olsen RMA Social History [...] Answer Date Recorded Total Score 4 08/29/2023 [facility] [place] of Occupat ional Health - Occupational Stress [...] things needed for daily living? No 03/26/2021 [place] Depression Scale Answer Date Recorded [place] Depression Scale Total 13 09/12/2023 The thought [...] Recorded Do you need help finding a the [facility] career center and/or a training program? [...] vision and passed out and is in [facility].As she was talking to me [...] documented as of this encounter Care Teams Dairy Bar Manager Relationship Specialty Start Date End Date No Pcp, [place] [address] PCP - General Family Medicine 09/01/24 documented as of this encounter
--- OUTSIDE RECORDS SUMMARY | 2024-10-28 19:38 | XMS_ITS | Encounter Summary ---
Author Organization [facility] Address [address] [facility] [place] [address] Care Team Providers Care Fiber Drier Operator Name Role Phone Unavailable Primary Care Provider Unavailabl e Encounter Details Date Type Department Care Team ([facility] Contact Info) Description 12/10/2022 External Result Encounter [facility] [address] [place] [place] [address] Osmany Bella DO [address] [place] [address] Social History Tobacco Use Types Packs/Day [...] Upcoming Encounters Date Type Department Care Team ([facility] Contact Info) Description 11/10/2024 2:20 PM EDT Office Visit [facility] OB [address] [place] [address] Mya Kaplan PA [address] [place] [address] documented as of this encounter Procedures Procedure [...] Final 12/10/2022 15:09) PATIENT INFO: ID #: [id number] : [birth year] (22 yrs)(F) Name: GEORGIE ROTH Visit Date: 12/10/2022 11:43 ESSIE PERFORMED BY: Attending: Marisel Charles MD Performed By: Pearl Hogue RDMS Referred By: Osmany Frances. Address: [address] [place] [address] [place] [address] Location: [facility]aternal Medicine [place] SERVICE(S) PROVIDED: Comprehensive Anatomic Survey Twins [id number] INDICATIONS: Screening for anatomic survey Z36.89 Twin [...] document Interventr. Septum: Not well visualized Cardiac [place]: Appears normal Diaphragm: Not well visualized 3 [...] document Interventr. Septum: Could not document Cardiac [place]: Appears normal Diaphragm: Could not document 3 [...] Signed Final Report 12/10/2022 15:09 IMPRESSION: 1. [place] chorionic Di amniotic Twin Gestation. 2. Twin [...] Circumvallate placenta visualized. RECOMMENDATIONS: 1. Please see [facility] consultation documentation from today's encounter. 2. Patient is scheduled in two weeks for TTTS protocol. 3. Patient is scheduled in 4 weeks for anatomic surveys, heart ECHOs, and cervical length. 4. Subsequent follow up or other follow up as clinically determined by primary OB provider unless otherwise specified by [facility]. 5. Results forwarded to ordering provider so they can follow up with the patient as necessary. The copy-to physician of this order is OSMANY Goodwin The ordering physician of this order is MARISEL Vázquez Procedure Note Radiology, Radiologist, - 12/10/2022 THIS EXAM WAS PERFORMED AT [facility] REPORT (Signed Final 12/10/2022 15:09) PATIENT INFO: ID #: [id number] : [birth year] (22 yrs)(F) Name: GEORGIE ROTH Visit Date: 12/10/2022 11:43 ESSIE PERFORMED BY: Attending: Marisel Charles MD Performed By: Pearl Hogue RDMS Referred By: Osmany Frances. Address: [address] [place] [address] [place] [address] Location: [facility] [place] SERVICE(S) PROVIDED: Comprehensive Anatomic Survey [place] [id number],[id number] INDICATIONS: Screening for anatomic survey Z36.89 Twin [...] document Interventr. Septum: Not well visualized Cardiac [place]: Appears normal Diaphragm: Not well visualized 3 [...] document Interventr. Septum: Could not document Cardiac [place]: Appears normal Diaphragm: Could not document 3 [...] Signed Final Report 12/10/2022 15:09 IMPRESSION: 1. [place] chorionic Di amniotic Twin Gestation. 2. Twin [...] Circumvallate placenta visualized. RECOMMENDATIONS: 1. Please see [facility] consultation documentation from today's encounter. 2. [...]
--- OUTSIDE RECORDS SUMMARY | 2024-10-28 19:38 | XMS_ITS | Encounter Summary ---
Author Organization [facility] tem Address [facility][id number] [address] [place] [address] Care Team Providers Care General Manager Food Name Role Phone No Pcp, No Pcp Primary Care Provider Unavailabl e Encounter Details Date Type Department Care Team (Late st Contact Info) Description 05/10/2023 Orders Only [facility] [address] [facility] [place] [place] [phone] Marilu Mcneal, LOSS PREVENTION DETECTIVE-CN [address] [place] [address] Chronic migraine without aura without status migrainosus, [...] Never 03/26/2021 How often do you attend [facility] or rastafarian services? Never 03/26/2021 Do you [...] Recorded Total Score 15 08/03/2021 [facility] of Occupat ional Health - [...] needed for daily living? No 03/26/2021 [place] Depression Scale Answer Date Recorded [place] Depression Scale Total 7 04/05/2023 The thought [...] Recorded Do you need help finding a [facility] career [facility] and/or a training [...] documented as of this encounter Care Teams General Manager Food Relationship Specialty Start Date End Date No Pcp, [place] [address] PCP - General Family Medicine 09/01/24 documented as of this encounter
--- OUTSIDE RECORDS SUMMARY | 2024-10-28 19:38 | XMS_ITS | Encounter Summary ---
Author Organization [facility] Address [address] [place] [address] Care Team Providers Care Child Care Name Role Phone Unavailable Primary Care Provider Unavailabl e Encounter Details Date Type Department Care Team (Late st Contact Info) Description 11/22/2023 Clinisync Result Encounter [facility] External Department Unsolicited Zhane Bella, DO [address] [facility] [place] [address] Social History Tobacco Use Types Packs/Day Years [...] OB [address] [place] [address] Mya Kaplan PA [address] [place] [address] documented as of this encounter Procedures Procedure Name Priority Date/Time Associated Diagnosis Comments US OB PLACENTA 11/22/2023 3:44 PM EDT AMNISURE Routine 11/22/2023 1:36 PM EDT [facility] URINE MICROSCOPIC ONLY Routine 11/22/2023 1:25 PM EDT [facility] UA (CLEAN/CATCH) PREFLIGHT INSPECTOR/MICRO IF IND. Routine 11/22/2023 1:25 PM EDT documented in this encounter Results * US OB PLACENTA (11/22/2023 3:44 PM EDT) Anatomical Region Laterality Modality Other 11/22/2023 3:44 PM EDT Narrative 11/22/2023 3:47 [place] [address] Ultrasound Report Signed Patient: GEORGIE POND MR#: [id number] : 2000 Acct:[id number] Age/Sex: 23 / F ADM Date: Loc: [facility] [address]: Zhane Bella D.O. Ordering Physician: Zhane Bella D.O. Date of Service: 11/22/23 Procedure(s): US OB placenta Accession Number(s): [id number] cc: Zhane Bella D.O.; Physician,Non-Staff M.D. [facility] [place] [address] Patient Name: GEORGIE POND MRN: [id number] date: 2000 Sex: F Assigned Patient Location: [facility] Current Patient Location: [facility] Accession/Order Number: [id number] Exam Date: 11/22/2023 14:20 Report Date: 11/22/2023 15:44 At the request of: ZHNAE BELLA Procedure: US OB placenta EXAMINATION: US [...] By: 11/22/23 1547 DD/ 1544 TD/TT: Field Reimbursement Manager: Procedure Note Radiology, Radiologist, MD - 11/22/2023 [place] [address] Ultrasound Report Signed Patient: GEORGIE POND TMR#: [id number] : 2000Acct:[id number] Age/Sex: Date: Loc: [facility] [address]: Zhane Bella D.O. Ordering Physician: Zhane Bella D.O. Date of Service: 11/22/23 Procedure(s): US OB placenta Accession Number(s): [id number] cc: Zhane Bella D.O.; Physician,Non-Staff Adriana [facility] [place] [address] Patient Name: GEORGIE POND MRN: [id number] date: 2000 Sex: F Assigned Patient Location: [facility] Current Patient Location: [facility] Accession/Order Number: [id number] Exam Date: 11/22/2023 14:20 Report Date: 11/22/2023 [...] Signed By:11/22/23 1547 DD/ 1544 TD/TT: Field Reimbursement Manager: us Zhnae Jena DO [facility] Final Result * AMNISURE (11/22/2023 1:36 PM EDT) Pathologist [facility] AMNISURE NEGATIVE NEGATIVE [facility] 11/22/2023 1:36 [...] [facility] * (ABNORMAL) [facility] UA (CLEAN/CATCH) PREFLIGHT INSPECTOR/MICRO IF IND. (11/22/2023 1:25 PM EDT) COLOR [...]
--- OUTSIDE RECORDS SUMMARY | 2024-10-28 19:38 | XMS_ITS | Encounter Summary ---
Author Organization [facility] Address [address] [facility] [place] [address] Care Team Providers Care Home Advisor Name Role Phone Unavailable Primary Care Provider Unavailabl e Encounter Details Date Type Department Care Team (Late Contact Info) Description 08/28/2024 Results Follow-Up [facility] OB [address] [facility] [place] [address] Marie Cuellar LPN [address] [place] [address] Social History Tobacco Use Types [...] Upcoming Encounters Date Type Department Care Team ([facility] Contact Info) Description 11/10/2024 2:20 PM EDT Office Visit [facility] [address] [facility] [place] [address] Mya Kaplan PA [address] [address] documented as of this encounter Visit Diagnoses Not on filedocumented in this encounter
--- OUTSIDE RECORDS SUMMARY | 2024-10-28 19:38 | XMS_ITS | Encounter Summary ---
Author Organization [facility] Address [address] [facility] [place] [address] Care Team Providers Care Rabbler Name Role Phone Unavailable Primary Care Provider Unavailabl e Encounter Details Date Type Department Care Team (Late st Contact Info) Description 07/07/2024 Abstract [facility] OB [address] [facility] [place] [address] Osmany Bella DO [address] [facility] [address] [address] [place], [id number] Social History Tobacco Use Types Packs/Day Years [...] 11/10/2024 2:20 PM EDT Office Visit [facility] OB [address] [facility] [address] Mya Kaplan PA [address] [facility] [address] [place], [id number] documented as of this encounter Visit Diagnoses Not on filedocumented in this encounter
--- OUTSIDE RECORDS SUMMARY | 2024-10-28 19:38 | XMS_ITS | Encounter Summary ---
Author Organization [facility] Address [address] [facility] [place] [address] Care Team Providers Care Physician Practice Manager Name Role Phone Unavailable Primary Care Provider Unavailabl e Encounter Details Date Type Department Care Team (Late Contact Info) Description 12/14/2022 Abstract [facility] OB [address] [place] [address] Osmany Bella DO [address] [facility] [place] [address] Social History Tobacco Use Types Packs/Day [...] 11/10/2024 2:20 PM EDT Office Visit [facility] OB [address] [place] [address] Mya Kaplan PA [address] [place] [address] documented as of this encounter Visit Diagnoses Not on filedocumented in this encounter
--- OUTSIDE RECORDS SUMMARY | 2024-10-28 19:38 | XMS_ITS | Encounter Summary ---
Author Organization [facility] Address [address] [place] [address] Care Team Providers Care Poultry Husbandman Name Role Phone Unavailable Primary Care Provider Unavailabl e Encounter Details Date Type Department Care Team (Late Contact Info) Description 11/29/2023 Abstract [facility] OB [address] [facility] [place] [phone] Marie Cuellar LPN [address] [place] [id number] Social History Tobacco Use Types Packs/Day Years [...] 11/10/2024 2:20 PM EDT Office Visit [facility] OB [address] [facility] [place] [address] Mya Kaplan PA [address] [facility] [address] [place], [place] [id number] documented as of this encounter Visit Diagnoses Not on filedocumented in this encounter
--- OUTSIDE RECORDS SUMMARY | 2024-10-28 19:38 | XMS_ITS | Encounter Summary ---
Author Organization [facility] Address [address] [place] [address] Care Team Providers Care Divine Healer Name Role Phone Unavailable Primary Care Provider Unavailabl e Encounter Details Date Type Department Care Team (Late Contact Info) Description 10/23/2024 Clinisync Result Encounter [facility] External Department Unsolicited Mya Jacob PA [address] [place] [address] [place] [address] Social History Tobacco Use Types Packs/Day Years [...] Upcoming Encounters Date Type Department Care Team ([facility] Contact Info) Description 11/10/2024 2:20 PM EDT Office Visit [facility] OB [address] [place] [address] [place] [phone] Mya Jacob PA [address] [place] [address] [place] [address] documented as of this encounter Procedures Procedure Name Priority Date/Time Associated Diagnosis Comments US OB BPP W NON-STRESS 10/23/2024 3:21 PM EDT documented in this encounter Results * US OB BPP W NON-STRESS (10/23/2024 3:21 PM EDT) Anatomical Region Laterality Modality Other 10/23/2024 3:21 PM EDT Narrative 10/23/2024 3:24 [place] [address] Ultrasound Report Signed Patient: GEORGIE POND MR#: [id number] : 2000 Acct:[id number] Age/Sex: 24 / F ADM Date: 10/23/24 Loc: [place] [address]- Attending Dr: Mya Jacob Ordering Physician: Mya Jacob Date of Service: 10/23/24 Procedure(s): US OB BPP w non-stress Accession Number(s): [id number] cc: Mya Jacob; Physician,Non-Staff MJacqu[place] [id number] Patient Name: GEORGIE POND MRN: [id number] date: 2000 Sex: F Assigned Patient Location: [facility] Current Patient Location: [facility] Accession/Order Number: [id number] Exam Date: 10/23/2024 15:20 Report Date: 10/23/2024 15:21 At the request of: MYA JACOB Procedure: US OB BPP w non-stress Biophysical profile. Reason for exam: Incompetent cervix. COMPARISON: None. TECHNIQUE: Transabdominal imaging of the gravid uterus was obtained. FINDINGS: Hearing Aid Repair Technician reports a BPP of 6 out of 8 with 0 out of 2 for breathing movements. MELLISA measures 20.9 cm. heart rate 145 bpm. US/US OB BPP w non-stress Impression: BPP 6 out of 8. Correlation with NST is recommended. Impression dictated by: Rufus Garcia Jr., D.O. 10/23/2024 3:21 PM Dictation Location: [place] [address] Electronically authenticated by: [id number] Y Date: 10/23/2024 15:21 Dictated By: Rufus Garcia M.D. Signed By: 10/23/24 1524 DD/ 1521 TD/TT: Leather Parts Matcher: Procedure Note Radiology, Radiologist, - 10/23/2024 [place] [address] Ultrasound Report Signed Patient: GEORGIE POND TMR#: [id number] : 2000Acct:[id number] Age/Sex: 24 / FADM Date: 10/23/24 Loc: [facility] 250-[address]: Mya Jacob Ordering Physician: Mya Jacob Date of Service: 10/23/24 Procedure(s): US OB BPP w non-stress Accession Number(s): [id number] cc: Mya Jacob; Physician,Non-Staff M.Lee [facility] [place] [id number] Patient Name: GEORGIE POND MRN: [id number] date: 2000 Sex: F Assigned Patient Location: [facility] Current Patient Location: [facility] Accession/Order Number: [id number] Exam Date: 10/23/2024 15:20 Report Date: 10/23/2024 15:21 At the request of: MYA JACOB Procedure: US OB BPP w non-stress Biophysical profile. Reason for exam: Incompetent cervix. COMPARISON: None. TECHNIQUE: Transabdominal imaging of the gravid uterus was obtained. FINDINGS: Hearing Aid Repair Technician reports a BPP of 6 out of 8 with 0 out of 2 forfetal breathing movements. MELLISA measures 20.9 cm. heart rate 145 bpm. US/US OB BPP w non-stress Impression: BPP 6 out of 8. Correlation with NST is recommended. Impression dictated by: Rufus Garcia Jr., D.O. 10/23/2024 3:21 PM Dictation Location: [place] [address] Electronically authenticated by: [id number] Y Date: 5:21 Dictated By: Rufus Garcia M.D. Signed By:10/23/24 1524 DD/ 1521 TD/TT: Leather Parts Matcher: Mya RIOS [facility] Final Result documented in this encounter Visit Diagnoses Not on filedocumented in this encounter
--- OUTSIDE RECORDS SUMMARY | 2024-10-28 19:38 | XMS_ITS | Encounter Summary ---
Author Organization [facility] Address [address] [facility] [place] [address] Care Team Providers Care Bakery Assistant Name Role Phone Unavailable Primary Care Provider Unavailabl e Encounter Details Date Type Department Care Team (Late Contact Info) Description 01/01/2023 Abstract [facility] OB [address] [facility] [place] [address] Osmany Bella DO [address] [facility] [place] [address] Social History Tobacco Use Types Packs/Day [...] Visit [facility] OB [address] [facility] [place] [address] Mya Kaplan PA [address] [place] [address] documented as of this encounter Visit Diagnoses Not on filedocumented in this encounter
--- OUTSIDE RECORDS SUMMARY | 2024-10-28 19:38 | XMS_ITS | Clinical Summary ---
Author Organization [facility] Healthcare Address [address] [place] [place] [address] Care Team Providers Care Customer Accounts Advisor Name Role Phone Unavailable Primary Care Provider Unavailabl e Allergies No known active allergies Medications MV & Min w/FA-DHA ( Gummies) 0.18-25 MG chewable tabletIndicatio ns:Vaginal bleeding affecting early ([facility]) Chew 1 each Daily 30 [...] this for 7 days. 21 capsule 10/26/2024 5 Active HYDROcodone-issa taminophen ([place]) 5-325 MG tablet 10/25/2024 Active omeprazole (PriLOSEC) [address] capsuleIndicati ons:Gastroesoph ageal Reflux Disease,Heartbu rn Take 1 capsule (20 mg) by mouth in the morning. Take before meals. Do not crush or chew. 30 capsule 3 10/28/2024 5 Active Active Problems Problem Noted Date Diagnosed [...] Encounters Date Type Department Care Team Description 10/28/2024 2:30 PM EDT Routine [facility] [address] [place] [address] Zhane Bella, Gastroesophageal reflux in ([facility]) (Primary Dx); Third trimester ([facility]); 36 weeks gestation of ([facility]); H/O incompetent cervix, currently ([facility]) 10/28/2024 Bamboo flowsheet [facility] [address] [place] [address] Zhane Bella, DO 10/26/2024 Telephone [facility] [address] [place] [address] Zhane Bella, DO 10/26/2024 Clinisync Result Encounter [...] PA 10/21/2024 2:30 PM EDT Routine [facility] [address] [place] [address] Mya Jacob PA 35 weeks gestation of ([facility]); Third trimester ([facility]) 10/21/2024 Bamboo flowsheet [facility] [address] [place] [address] Mya Jacob PA 10/15/2024 3:30 PM EDT Routine [facility] [address] [place] [address] Mya Jacob PA Third trimester ([facility]); 32 weeks gestation of ([facility]); H/O incompetent cervix, currently ([facility]); Noncompliant patient, third trimester ([facility]) 10/15/2024 Bamboo flowsheet [facility] OB [address] [place] [address] [place] [address] Mya Jacob PA 10/12/2024 Telephone [facility] [address] [place] [address] [place] [address] Christie Wiley, TIMBER SELECTOR 10/02/2024 Telephone [facility] OB [address] [place] [address] [place] [address] Christie Wiley, TIMBER SELECTOR 09/21/2024 Telephone [facility] [address] [place] [address] [place] [address] Christie Wiley, TIMBER SELECTOR 2024 Telephone [facility] [address] [place] [address] [place] [address] Zhane Bella, DO 09/02/2024 2:40 PM EDT Routine [facility] [address] [place] [address] Zhane Bella, DO 28 weeks gestation of ([facility]) 09/02/2024 Clinisync Result Encounter [facility] External Department Unsolicited Zhane Bella, DO 09/02/2024 Clinisync Result Encounter [facility] External Department Unsolicited Zhane Bella, DO 09/02/2024 Clinisync Result Encounter [facility] External Department Unsolicited Zhane Bella, DO 09/01/2024 Telephone [facility] [address] [place] [address] Christie Wiley, TIMBER SELECTOR 08/28/2024 Results Follow-Up [facility] [address] [place] [address] [place] [phone] Marie Cuellar LPN 08/14/20[address] [facility] [address] [place] [id number] Mayra Thompson MA BV (bacterial vaginosis) 08/14/2024 Telephone [facility] [address] [place] [address] Mayra Thompson MA 08/12/2024 2:50 PM EDT Routine [facility] [address] [place] [address] Zhane Bella, Well woman exam with routine gynecological exam; Vaginal discharge; STD exposure; Missed menses; , unspecified gestational age ([facility]); Diabetes mellitus screening; Flank pain 08/12/2024 Clinisync Result Encounter [facility] External Department Unsolicited Zhane Bella DO 08/12/2024 Bamboo flowsheet [facility] [address] [place] [phone] Zhane Bella DO 07/28/2024 2:30 PM EDT Ancillary Procedure [facility] [address] [place] [address] Screening, , for anatomic survey ([facility]) from Last 3 Months Family History Relation [...] Office Visit [facility] [address] [facility] [address] Mya Jacob PA [address] [place] [address] Health Maintenance Due Date Last Done Comments Influenza Vaccine (Season Ended) 2025 03/12/2019, 03/13/2007, 02/25/2006 Procedures Procedure Name Priority Date/Time Associated Diagnosis Comments POCT URINALYSIS DIPSTICK Routine 10/28/2024 2:59 PM EDT Third trimester ([facility]) 36 weeks gestation of ([facility]) US OB BPP W NON-STRESS 10/26/2024 8:15 AM EDT [facility] CMP (CMP) (FOR REMOTE [facility] USE) Routine 10/24/2024 2:03 AM EDT ALL CBC WITH AUTO DIFF Routine 10/24/2024 2:03 AM EDT [facility] URINE MICROSCOPIC ONLY Routine 10/24/2024 12:30 AM EDT TBH UA (CLEAN/CATCH) REWORK OPERATOR/MICRO IF IND. Routine 10/24/2024 12:30 AM EDT US OB CERVICAL LENGTH 10/23/2024 4:04 PM EDT US OB GROWTH 10/23/2024 3:29 PM EDT US OB BPP W NON-STRESS 10/23/2024 3:21 PM EDT POCT URINALYSIS DIPSTICK Routine 10/21/2024 3:08 PM EDT 35 weeks gestation of ([facility]) Third trimester ([facility]) CULTURE, URINE, ROUTINE Routine 10/02/2024 11:44 AM EDT Missed menses POCT URINALYSIS DIPSTICK Routine 09/02/2024 3:18 PM EDT 28 weeks gestation of ([facility]) US OB CERVICAL LENGTH 09/02/2024 11:52 AM EDT US OB PLACENTA 09/02/2024 11:52 AM EDT TBH URINE MICROSCOPIC ONLY Routine 09/02/2024 11:20 AM EDT TBH UA (CLEAN/CATCH) REWORK OPERATOR/MICRO IF IND. Routine 09/02/2024 11:20 AM [...] PM EDT Screening, , for anatomic survey ([facility]) from Last 3 Months Results * (ABNORMAL) POCT urinalysis dipstick manually resulted (10/28/2024 2:59 PM EDT) Only the most recent of4 resultswithin the time period is included. Color, [...] Positive Urine 10/28/2024 2:59 PM EDT us Zhane Bella DO POINT OF CARE TEST ENTER/EDIT OR DERABLES Final Result * US OB BPP W NON-STRESS (10/26/2024 8:15 AM EDT) Only the most recent of2 resultswithin the time period is included. Anatomical Region Laterality Modality Other 10/26/2024 8:15 AM EDT Narrative 10/26/2024 8:17 [place] [address] Ultrasound Report Signed Patient: LAURA FOUNTAIN MR#: [id number] : 2000 Acct:[id number] Age/Sex: 24 / F ADM Date: Loc: [facility] [address]: Zhane Bella D.O. Ordering Physician: Zhane Bella D.O. Date of Service: 10/24/24 Procedure(s): US OB BPP w non-stress Accession Number(s): [id number] cc: Zhane Bella D.O.; Physician,Non-Staff M.DCynthia [address] [address] Patient Name: LAURA FOUNTAIN MRN: [id number] date: 2000 Sex: F Assigned Patient Location: [facility] Current Patient Location: Accession/Order Number: [id number] Exam Date: 10/26/2024 07:43 Report Date: 10/26/2024 [...] Souza M.D. 10/26/2024 8:15 AM Dictation Location: [place] [address] Electronically authenticated by: [id number] Y Date: 10/26/2024 08:15 Dictated By: Helena De Souza M.D. Signed By: 10/26/24 0817 DD/ TD/TT: Warehouse Supervisor: Procedure Note Radiology, Radiologist, MD - 10/26/2024 [place] [address] Ultrasound Report Signed Patient: LAURA FOUNTAIN TMR#: [id number] : 2000Acct:[id number] Age/Sex: Date: Loc: [facility] 251-[address]: Zhane Bella D.O. Ordering Physician: Zhane Bella D.O. Date of Service: 10/24/24 Procedure(s): US OB BPP w non-stress Accession Number(s): [id number] cc: Zhane Bella D.O.; Physician,Non-Staff Adriana The [place] [id number] Patient Name: LAURA FOUNTAIN MRN: [facility]:[id number] date: 2000 Sex: F Assigned Patient Location: [facility] Current Patient Location: Accession/Order Number: [id number] Exam Date: 10/26/2024 07:43 Report Date: 10/26/2024 [...] Souza M.D. 10/26/2024 8:15 AM Dictation Location: [place] [address] Electronically authenticated by: [id number] Y Date: 508:15 Dictated By: Helena De Souza M.D. Signed By:10/26/24 0817 DD/ 4 TD/TT: Warehouse Supervisor: us Zhane Bella DO CL[facility] IMAGING Final Result * (ABNORMAL) [facility] CMP (CMP) (FOR REMOTE [facility] USE) (10/24/2024 2:03 AM EDT) [...] 0.55 - 1.02 mg/dL TBH TBH EGFR-AF ANGUILLAN >60 >=60 mL/min/1. 73m 2 TBH TBH EGFR-NON AF ANGUILLAN >60 >=60 mL/min/1. 73m 2 TBH BUN [...] EDT Zhane Bella DO [facility] Final Result [facility] * (ABNORMAL) ALL CBC WITH AUTO DIFF [...] Narrative CLINISYNC - 10/24/2024 2:10 AM EDT us Zhane Jena DO CLINISYNC Final Result CLINISYNC TB * (ABNORMAL) TBH URINE MICROSCOPIC ONLY (10/24/2024 [...] - 10/24/2024 1:25 AM EDT us Zhane Jena DO CLINISYNC Final Result Performing Organization Address City/[facility]/ZIP Co de Phone Number CLINISYNC TB[facility] * (ABNORMAL) TBH UA (CLEAN/CATCH) REWORK OPERATOR/MICRO IF IND. (10/24/2024 12:30 AM EDT) Only [...] - 10/24/2024 1:25 AM EDT us Zhane Jena DO CLINISYNC Final Result Performing Organization Address City/[facility]/ZIP Co de Phone Number CLINISYNC TB[facility] * US OB CERVICAL LENGTH (10/23/2024 4:04 PM EDT) Only the most recent of2 resultswithin the time period is included. Anatomical Region Laterality Modality Other 10/23/2024 4:04 PM EDT Narrative 10/23/2024 4:06 PM EDT The [address] [address] Ultrasound Report Signed Patient: LAURA FOUNTAIN MR#: [id number] : 2000 Acct:[id number] Age/Sex: 24 / F ADM Date: 10/23/24 Loc: US Attending Dr: Mya Jacob Ordering Physician: Zhane Bella D.O. Date of Service: 10/23/24 Procedure(s): US OB cervical length Accession Number(s): [id number] cc: Zhane Bella D.O.; Physician,Non-Staff M.Lee The [place] [address] Patient Name: LAURA FOUNTAIN MRN: [facility]:[id number] date: 2000 Sex: F Assigned Patient Location: US Current Patient Location: Accession/Order Number: [id number] Exam Date: 10/23/2024 16:03 Report Date: 10/23/2024 [...] 10/23/2024 4:04 PM Dictation Location: [place] [address] Electronically authenticated by: [id number] Y Date: 10/23/2024 16:04 Dictated By: Maulik Pulido D.O. Signed By: 10/23/24 1606 DD/ 1604 TD/TT: Warehouse Supervisor: Procedure Note Radiology, Radiologist, MD - 10/23/2024 [place] [address] Ultrasound Report Signed Patient: LAURA FOUNTAIN TMR#: [id number] : 2000Acct:[id number] Age/Sex: 24 / FADM Date: 10/23/24 Loc: US Attending Dr: Mya Jacob Ordering Physician: Zhane Bella D.O. Date of Service: 10/23/24 Procedure(s): US OB cervical length Accession Number(s): [id number] cc: Zhane Bella D.O.; Physician,Non-Staff Adriana The [address] [address] Patient Name: LAURA FOUNTAIN MRN: [id number] date: 2000 Sex: F Assigned Patient Location: US Current Patient Location: Accession/Order Number: [id number] Exam Date: 10/23/2024 16:03 Report Date: 10/23/2024 16:04 At the request of: ZHANE BELLA DO Procedure: US OB cervical length Ultrasound assessment of the uterine cervix. HISTORY: Incompetent cervix. The cervix has a length of 4.0 cm. Cervical os closed. heart kgkp325 bpm. Cephalic presentation with longitudinal lie. US/US OB cervical length IMPRESSION: 4 cm cervical length. Impression dictated by: Maulik Pulido M.D. 10/23/2024 4:04 PM Dictation Location: [place] [address] Electronically authenticated by: [id number] Y Date: 6:04 Dictated By: Maulik Pulido D.O. Signed By:10/23/24 1606 DD/ 1604 TD/TT: Warehouse Supervisor: us Zhane Bella DO [facility] IMAGING Final Result * US OB GROWTH (10/23/2024 3:29 PM EDT) Anatomical Region Laterality Modality Other 10/23/2024 3:29 PM EDT Narrative 10/23/2024 3:31 [place] [address] Ultrasound Report Signed Patient: LAURA FOUNTAIN MR#: [id number] : 2000 Acct:[id number] Age/Sex: 24 / F ADM Date: 10/23/24 Loc: US Attending Dr: Mya Jacob Ordering Physician: Mya Jacob Date of Service: 10/23/24 Procedure(s): US OB growth Accession Number(s): [id number] cc: Mya Jacob; Physician,Non-Staff Adriana The [address] [address] Patient Name: LAURA FOUNTAIN MRN: [id number] date: 2000 Sex: F Assigned Patient Location: [facility] Current Patient Location: Accession/Order Number: [id number] Exam Date: 10/23/2024 15:27 Report Date: 10/23/2024 [...] Jr., D.O. 10/23/2024 3:29 PM Dictation Location: [place] [address] Electronically authenticated by: [id number] Y Date: 10/23/2024 15:29 Dictated By: Rufus Garcia M.D. Signed By: 10/23/24 1531 DD/ 1529 TD/TT: Warehouse Supervisor: Procedure Note Radiology, Radiologist, MD - 10/23/[address] [address] Ultrasound Report Signed Patient: LAURA FOUNTAIN TMR#: [id number] : 2000Acct:[id number] Age/Sex: 24 / FADM Date: 10/23/24 Loc: US Attending Dr: Mya Jacob Ordering Physician: Mya Jacob Date of Service: 10/23/24 Procedure(s): US OB growth Accession Number(s): [id number] cc: Mya Jacob; Physician,Non-Staff Adriana The [place] [address] Patient Name: LAURA FOUNTAIN MRN: [id number] date: 2000 Sex: F Assigned Patient Location: [facility] Current Patient Location: Accession/Order Number: [id number] Exam Date: 10/23/2024 15:27 Report Date: 10/23/2024 [...] Jr., D.O. 10/23/2024 3:29 PM Dictation Location: [place] [address] Electronically authenticated by: [id number] Y Date: 5:29 Dictated By: Rufus Garcia M.D. Signed By:10/23/24 1531 DD/ 1529 TD/TT: Warehouse Supervisor: Mya Jacob PA [facility]IN[facility] IMAGING Final Result * Urine culture (10/02/2024 11:44 AM EDT) Urine Urine specimen obtained by clean catch procedure / Unknown Zhane Bella DO LAB MICROBIOLOGY - GENERAL ORDER DONELL Final Result EXTERNAL LAB * US OB PLACENTA (09/02/2024 11:52 AM EDT) Anatomical Region Laterality Modality Other 09/02/2024 11:5 2 AM EDT Narrative 09/02/2024 11:55 AM EDT [address] [address] Ultrasound Report Signed Patient: LAURA FOUNTAIN MR#: [id number] : 2000 Acct:[id number] Age/Sex: 23 / F ADM Date: Loc: [facility] 258-[address]: Zhane Bella D.O. Ordering Physician: Zhane Bella D.O. Date of Service: 09/02/24 Procedure(s): US OB placenta Accession Number(s): [id number] cc: Zhane Bella D.O.; Physician,Non-Staff Adriana [address] [address] Patient Name: LAURA FOUNTAIN MRN: [id number] date: 2000 Sex: F Assigned Patient Location: [facility] Current Patient Location: [facility] Accession/Order Number: [id number] Exam Date: 09/02/2024 11:49 Report Date: 09/02/2024 [...] Jr., D.O. 09/02/2024 11:52 AM Dictation Location: [place] [address] Electronically authenticated by: [id number] Y Date: 09/02/2024 11:52 Dictated By: Rufus Garcia M.D. Signed By: 09/02/24 1155 DD/ 1152 TD/TT: Warehouse Supervisor: Procedure Note Radiology, Radiologist, MD - 09/02/2024 [place] [address] Ultrasound Report Signed Patient: LAURA FOUNTAIN TMR#: [id number] : 2000Acct:[id number] Age/Sex: 23 / FADM Date: Loc: [facility] 258-[address]: Zhane Bella D.O. Ordering Physician: Zhane Bella D.O. Date of Service: 09/02/24 Procedure(s): US OB placenta Accession Number(s): [id number] cc: Zhane Bella D.O.; Physician,Non-Staff Adriana The [place] [address] Patient Name: LAURA FOUNTAIN MRN: [id number] date: 2000 Sex: F Assigned Patient Location: [facility] Current Patient Location: [facility] Accession/Order Number: [id number] Exam Date: 09/02/2024 11:49 Report Date: 09/02/2024 [...] Jr., D.O. 09/02/2024 11:52 AM Dictation Location: [place] [address] Electronically authenticated by: [id number] Y Date: 1:52 Dictated By: Rufus Garcia M.D. Signed By:09/02/24 1156 DD/ 1152 TD/TT: Warehouse Supervisor: us Zhane Bella DO CLIN[facility]YNC IMAGING [...] TYPE AUTOMATED DIFFERENTIAL [facility] Comment: PERFORMED AT [facility] [address],[place] [address] 09/01/2024 3:48 PM EDT 09/01/2024 9:40 PM EDT us Zhane Jena DO LAB BLOOD ORDERABLES Final Resul t [facility] * (ABNORMAL) RECURRENT VAGINITIS (HTRX) (08/12/2024 4:11 PM EDT) ATOPOBIUM VAGINAE 23.789(A) 19.961 - 24.689 ppm 08/13/2024 6:52 AM EDT [facility] ATOPOBIUM VAGINAE Detected(A) 19.961 - 24.689 ppm 08/13/2024 6:52 AM EDT [facility] BVAB 2,3 (BACTERIAL VAGINOSIS ASSOCIATED BACTERIA 2, 3); MOBILUNCUS SPP 20.226(A) 19.961 - 24.689 ppm 08/13/2024 6:52 AM EDT [facility] BVAB 2,3 (BACTERIAL VAGINOSIS ASSOCIATED BACTERIA 2, 3); MOBILUNCUS SPP Detected(A) 19.961 - 24.689 ppm 08/13/2024 6:52 AM EDT [facility] MIGUEL ALBICANS, PARAPSILOSIS, TROPICALIS 0.000 19.961 - 30.770 ppm 08/13/2024 6:52 AM EDT [facility] MIGUEL ALBICANS, PARAPSILOSIS, TROPICALIS Not Detected 19.961 - 30.770 ppm 08/13/2024 6:52 AM EDT [facility] MIGUEL GLABRATA 0.000 23.000 - 32.138 ppm 08/13/2024 6:52 AM EDT [facility] MIGUEL GLABRATA Not Detected 23.000 - 32.138 ppm 08/13/2024 6:52 AM EDT [facility] MIGUEL KRUSEI 0.000 23.000 - 32.271 ppm 08/13/2024 6:52 AM EDT [facility] MIGUEL KRUSEI Not Detected 23.000 - 32.271 ppm 08/13/2024 6:52 AM EDT [facility] CHLAMYDIA TRACHOMATIS 0.000 23.000 - 31.467 ppm 08/13/2024 6:52 AM EDT [facility] CHLAMYDIA TRACHOMATIS Not Detected 23.000 - 31.467 ppm 08/13/2024 6:52 AM EDT [facility] GARDNERELLA VAGINALIS 26.712(A) 19.961 - 24.689 ppm 08/13/2024 6:52 AM EDT [facility] GARDNERELLA VAGINALIS Detected(A) 19.961 - 24.689 ppm 08/13/2024 6:52 AM EDT [facility] MEGASPHAERA (TYPES 1, 2) 15.626(A) 19.961 - 24.689 ppm 08/13/2024 6:52 AM EDT [facility] MEGASPHAERA (TYPES 1, 2) Detected(A) 19.961 - 24.689 ppm 08/13/2024 6:52 AM EDT [facility] NEISSERIA GONORRHOEAE 0.000 23.000 - 32.117 ppm 08/13/2024 6:52 AM EDT [facility] NEISSERIA GONORRHOEAE Not Detected 23.000 - 32.117 ppm 08/13/2024 6:52 AM EDT [facility] TRICHOMONAS VAGINALIS 0.000 23.000 - 32.119 ppm 08/13/2024 6:52 AM EDT [facility] TRICHOMONAS VAGINALIS Not Detected 23.000 - 32.119 ppm 08/13/2024 6:52 AM EDT [facility] MYCOPLASMA GENITALIUM 0.000 19.961 - 24.689 ppm 08/13/2024 6:52 AM EDT [facility] MYCOPLASMA GENITALIUM Not Detected 19.961 - 24.689 ppm 08/13/2024 6:52 AM EDT [facility] ERMB, C; MEFA 23.273(A) 23.000 - 27.611 ppm 08/13/2024 6:52 AM EDT [facility] ERMB, C; MEFA Detected(A) 23.000 - 27.611 ppm 08/13/2024 6:52 AM EDT [facility] TET B, TET M 27.416(A) 23.000 - 27.778 ppm 08/13/2024 6:52 AM EDT [facility] TET B, TET M Detected(A) 23.000 - 27.778 ppm 08/13/2024 6:52 AM EDT [facility] [place] Tissue 08/12/2024 4:11 PM EDT 08/13/2024 1:36 AM EDT us Zhane Bella DO LAB BLOOD ORDERABLES Final Resul t [facility] Benjamín E Wily and [place] [address] * (ABNORMAL) IGP,APTIMA HPV,AGE GDLN (08/12/2024 2:58 PM EDT) AGE GDLN ACOG TESTING Note . [facility] Comment: TESTS RESULT FLAG UNITS REF RANGE LAB Clinician Provided Cytology Information Source.............Cervix No. of containers..01 ThinPrep Vial Age Algo ACOG Neha... - 01 FLAG LEGEND: L-Low Normal,H-High Normal,LL-Alert Low,HH-Alert High <-Panic Low,>-Panic High,A-Abnormal,AA-Critical Abnormal Performed at: 01 =G Anurag [address] [address] Rafaela Vega MD, IGP, RFX APTIMA HPV ASCU Note(A) . [facility] Comment: TESTS RESULT FLAG UNITS REF RANGE LAB DIAGNOSIS: [A] 02 EPITHELIAL CELL ABNORMALITY. ATYPICAL SQUAMOUS CELLS OF UNDETERMINED SIGNIFICANCE (ASC-US). Specimen adequacy: 02 Satisfactory for evaluation. Endocervical and/or squamous metaplastic cells (endocervical component) are present. Performed by: 02 Mauri Martínez, Entry Level Java Developer (ASC) Electronically si... 02 Frances Munoz MD, Pathologist [...] Low,>-Panic High,A-Abnormal,AA-Critical Abnormal Performed at: [address] [facility] [place] [address] Rafaela Vega MD, HPV APTIMA Positive( A) Negative TB Comment: This nucleic acid amplification test detects fourteen high- risk HPV types (16,18,31,33,35,39,45,51,52,56,58,59,66,68) without differentiation. Performed at: =G - [facility] [address], [place], [place] [id number] Vat Packer: Rafaela Vega MD, Phone: [phone] Performed at: [address] [place] [id number] Vat Packer: Rafaela Vega MD, Phone: [phone] 08/12/2024 2:58 PM EDT 08/12/2024 9:42 PM [...] II, MD, PHD at 28-Jul-2024 09:45:45 PM [facility] Procedure Note Reuben Cerda MD - [...] CERDA II, MD, PHDat 28-Jul-2024 09:45:45 PM [facility] us Zhane Jena DO IMG OB US PROCEDURES Final Resul t from Last 3 Months Insurance [employer] MEDICAID [place]
--- OUTSIDE RECORDS SUMMARY | 2024-10-28 19:38 | XMS_ITS | Clinical Summary ---
Author Organization [facility] Address [address] [place] [address] Care Team Providers Care Residential Plumber Name Role Phone Unavailable Primary Care Provider [...] to complete this topic Insurance [place]ICAID [place] [facility]
--- OUTSIDE RECORDS SUMMARY | 2024-10-28 19:38 | XMS_ITS | Encounter Summary ---
Author Organization [facility] Address [address] [place] [address] Care Team Providers Care Cotton Classer Name Role Phone Unavailable Primary Care Provider Unavailabl e Encounter Details Date Type Department Care Team (Late st Contact Info) Description 10/26/2024 Clinisync Result Encounter N[facility] External Department Unsolicited Zhane Bella DO [address] [facility] [place] [address] Social History Tobacco Use Types Packs/Day Years [...] Visit [facility] B[facility] OB [address] [facility] [place] [address] Mya Kaplan PA [address] [facility] [place] [address] documented as of this encounter Procedures Procedure Name Priority Date/Time Associated Diagnosis Comments US OB BPP W NON-STRESS 10/26/2024 8:15 AM EDT documented in this encounter Results * US OB BPP W NON-STRESS (10/26/2024 8:15 AM EDT) Anatomical Region Laterality Modality Other 10/26/2024 8:15 AM EDT Narrative 10/26/2024 8:17 [place] [address] Ultrasound Report Signed Patient: GEORGIE POND MR#: [id number] : 2000 Acct:[id number] Age/Sex: 24 / F ADM Date: Loc: [facility] 251-[address]: Zhane Bella D.O. Ordering Physician: Zhane Bella D.O. Date of Service: 10/24/24 Procedure(s): US OB BPP w non-stress Accession Number(s): [id number] cc: Zhane Bella D.O.; Physician,Non-Staff Adriana [place] [id number] Patient Name: GEORGIE POND MRN: [facility]:[id number] date: 2000 Sex: F Assigned Patient Location: [facility] Current Patient Location: Accession/Order Number: [id number] Exam Date: 10/26/2024 07:43 Report Date: 10/26/2024 [...] Souza M.D. 10/26/2024 8:15 AM Dictation Location: [place] [address] Electronically authenticated by: [id number] Y Date: 10/26/2024 08:15 Dictated By: Helena De Souza M.D. Signed By: 10/26/24816 DD/ 4 TD/TT: Interior Design Instructor: Procedure Note Radiology, Radiologist, MD - 10/26/2024 [place] [address] Ultrasound Report Signed Patient: GEORGIE POND TMR#: [id number] : 2000Acct:[id number] Age/Sex: Date: Loc: [facility] 251-[address]: Zhane Bella D.O. Ordering Physician: Zhane Bella D.O. Date of Service: 10/24/24 Procedure(s): US OB BPP w non-stress Accession Number(s): [id number] cc: Zhane Bella D.O.; Physician,Non-Staff Adriana The [place] [address] Patient Name: GEORGIE POND MRN: [id number] date: 2000 Sex: F Assigned Patient Location: [facility] Current Patient Location: Accession/Order Number: [id number] Exam Date: 10/26/2024 07:43 Report Date: 10/26/2024 [...] Souza M.D. 10/26/2024 8:15 AM Dictation Location: [place] [address] Electronically authenticated by: [id number] Y Date: 508:15 Dictated By: Helena De Souza M.D. Signed By:10/26/2417 DD/ 4 TD/TT: Interior Design Instructor: us Zhane Jena DO [facility] Final Result documented in this encounter Visit Diagnoses Not on filedocumented in this encounter
--- OUTSIDE RECORDS SUMMARY | 2024-10-28 19:38 | XMS_ITS | Encounter Summary ---
Author Organization [facility] Address [address] [place] [address] Care Team Providers Care Chemotherapist Name Role Phone Unavailable Primary Care Provider Unavailabl e Encounter Details Date Type Department Care Team (Late Contact Info) Description 10/23/2024 Clinisync Result Encounter NOMS External Department Unsolicited Mya Jacob PA [address] [place] [address] Social History Tobacco Use Types Packs/Day Years [...] Upcoming Encounters Date Type Department Care Team ([facility] Contact Info) Description 11/10/2024 2:20 PM EDT Office Visit [facility] BCP OB [address] [facility] [place] [address] Mya Jacob PA [address] [facility] [place] [address] documented as of this encounter Procedures Procedure Name Priority Date/Time Associated Diagnosis Comments US OB GROWTH 10/23/2024 3:29 PM EDT documented in this encounter Results * US OB GROWTH (10/23/2024 3:29 PM EDT) Anatomical Region Laterality Modality Other 10/23/2024 3:29 PM EDT Narrative 10/23/2024 3:31 PM EDT The [address] [address] Ultrasound Report Signed Patient: GEORGIE POND MR#: [id number] : 2000 Acct:[id number] Age/Sex: 24 / F ADM Date: 10/23/24 Loc: US Attending Dr: Mya Jacob Ordering Physician: Mya Jacob Date of Service: 10/23/24 Procedure(s): US OB growth Accession Number(s): [id number] cc: Mya Jacob; Physician,Non-Staff M.Lee The [address] [address] Patient Name: GEORGIE POND MRN: [id number] date: 2000 Sex: F Assigned Patient Location: [facility] Current Patient Location: Accession/Order Number: [id number] Exam Date: 10/23/2024 15:27 Report Date: 10/23/2024 [...] Jr., D.O. 10/23/2024 3:29 PM Dictation Location: [place] [address] Electronically authenticated by: [id number] Y Date: 10/23/2024 15:29 Dictated By: Rufus Garcia M.D. Signed By: 10/23/24 1531 DD/ 1529 TD/TT: Quotation Clerk: Procedure Note Radiology, Radiologist, - 10/23/[address] [place] [address] Ultrasound Report Signed Patient: GEORGIE POND TMR#: [id number] : 2000Acct:[id number] Age/Sex: 24 / FADM Date: 10/23/24 Loc: US Attending Dr: Mya Jacob Ordering Physician: Mya Jacob Date of Service: 10/23/24 Procedure(s): US OB growth Accession Number(s): [id number] cc: Mya Jacob; Physician,Non-Staff M.DCynthia [place] [address] Patient Name: GEORGIE POND MRN: [facility]:[id number] date: 2000 Sex: F Assigned Patient Location: [facility] Current Patient Location: Accession/Order Number: [id number] Exam Date: 10/23/2024 15:27 Report Date: 10/23/2024 [...] Jr., D.O. 10/23/2024 3:29 PM Dictation Location: [place] [address] Electronically authenticated by: [id number] Y Date: 5:29 Dictated By: Rufus Garcia M.D. Signed By:10/23/24 1531 DD/ 1529 TD/TT: Quotation Clerk: us Mya RIOS [facility] Final Result documented in this encounter Visit Diagnoses Not on filedocumented in this encounter
--- OUTSIDE RECORDS SUMMARY | 2024-10-28 19:38 | XMS_ITS | Encounter Summary ---
Author Organization [facility] Address [address] [place] [address] Care Team Providers Care Salvation [employer] Officer Name Role Phone Unavailable Primary Care Provider Unavailabl e Encounter Details Date Type Department Care Team (Late Contact Info) Description 07/07/2024 External Result Encounter [facility] OB [address] [facility] [place] [address] Osmany Bella DO [address] [place], [place] [address] [place], [facility]11 Social History Tobacco Use Types Packs/Day [...] PM EDT Office Visit [facility] BCP OB [address] [place], [place] [address] [place] [address] Mya Kaplan PA [address] [facility] [address] [place], [facility]11 documented as of this encounter Procedures Procedure [...] auto differential (09/01/2024 3:48 PM EDT) Pathologist [facility] WHITE BLOOD CELL COUNT, WBC 9.0 4 [...] TYPE AUTOMATED DIFFERENTIAL [facility] Comment: PERFORMED AT [facility] [address],[place] [address] 09/01/2024 3:48 PM EDT 09/01/2024 9:40 PM EDT us Osmany Bella DO LAB BLOOD ORDERABLES Final Resul t [facility] * (ABNORMAL) RECURRENT VAGINITIS (HTRX) (08/12/2024 4:11 PM EDT) Pathologist [facility] ATOPOBIUM VAGINAE 23.789(A) 19.961 - 24.689 ppm 08/13/2024 6:52 AM EDT [facility] ATOPOBIUM VAGINAE Detected(A) 19.961 - 24.689 ppm 08/13/2024 6:52 AM EDT [facility] BVAB 2,3 (BACTERIAL VAGINOSIS ASSOCIATED BACTERIA 2, 3); MOBILUNCUS SPP 20.226(A) 19.961 - 24.689 ppm 08/13/2024 6:52 AM EDT [facility] BVAB 2,3 (BACTERIAL VAGINOSIS ASSOCIATED BACTERIA 2, 3); MOBILUNCUS SPP Detected(A) 19.961 - 24.689 ppm 08/13/2024 6:52 AM EDT [facility] MIGUEL ALBICANS, PARAPSILOSIS, TROPICALIS 0.000 19.961 - 30.770 ppm 08/13/2024 6:52 AM EDT [facility] MIGUEL ALBICANS, PARAPSILOSIS, TROPICALIS Not Detected 19.961 - 30.770 ppm 08/13/2024 6:52 AM EDT [facility] MIGUEL GLABRATA 0.000 23.000 - 32.138 ppm 08/13/2024 6:52 AM EDT [facility] MIGUEL GLABRATA Not Detected 23.000 - 32.138 ppm 08/13/2024 6:52 AM EDT [facility] MIGUEL KRUSEI 0.000 23.000 - 32.271 ppm 08/13/2024 6:52 AM EDT [facility] MIGUEL KRUSEI Not Detected 23.000 - 32.271 ppm 08/13/2024 6:52 AM EDT [facility] CHLAMYDIA TRACHOMATIS 0.000 23.000 - 31.467 ppm 08/13/2024 6:52 AM EDT [facility] CHLAMYDIA TRACHOMATIS Not Detected 23.000 - 31.467 ppm 08/13/2024 6:52 AM EDT [facility] GARDNERELLA VAGINALIS 26.712(A) 19.961 - 24.689 ppm 08/13/2024 6:52 AM EDT [facility] GARDNERELLA VAGINALIS Detected(A) 19.961 - 24.689 ppm 08/13/2024 6:52 AM EDT [facility] MEGASPHAERA (TYPES 1, 2) 15.626(A) 19.961 - 24.689 ppm 08/13/2024 6:52 AM EDT [facility] MEGASPHAERA (TYPES 1, 2) Detected(A) 19.961 - 24.689 ppm 08/13/2024 6:52 AM EDT [facility] NEISSERIA GONORRHOEAE 0.000 23.000 - 32.117 ppm 08/13/2024 6:52 AM EDT [facility] NEISSERIA GONORRHOEAE Not Detected 23.000 - 32.117 ppm 08/13/2024 6:52 AM EDT [facility] TRICHOMONAS VAGINALIS 0.000 23.000 - 32.119 ppm 08/13/2024 6:52 AM EDT [facility] TRICHOMONAS VAGINALIS Not Detected 23.000 - 32.119 ppm 08/13/2024 6:52 AM EDT [facility] MYCOPLASMA GENITALIUM 0.000 19.961 - 24.689 ppm 08/13/2024 6:52 AM EDT [facility] MYCOPLASMA GENITALIUM Not Detected 19.961 - 24.689 ppm 08/13/2024 6:52 AM EDT [facility] ERMB, C; MEFA 23.273(A) 23.000 - 27.611 ppm 08/13/2024 6:52 AM EDT [facility] ERMB, C; MEFA Detected(A) 23.000 - 27.611 ppm 08/13/2024 6:52 AM EDT [facility] TET B, TET M 27.416(A) 23.000 - 27.778 ppm 08/13/2024 6:52 AM EDT [facility] TET B, TET M Detected(A) 23.000 - 27.778 ppm 08/13/2024 6:52 AM EDT [facility] Tissue 08/12/2024 4:11 PM EDT 08/13/2024 1:36 AM EDT us Osmany Bella DO LAB BLOOD ORDERABLES Final Resul t [facility] [address] [place] [address] * AFP SINGLE MARKER SCRN, MATERNAL,SERUM ([facility]) (07/27/2024 3:10 PM EDT) Pathologist [facility] AFP SINGLE MARKER SCRN, MATERNAL, [...] repeat testing Initial testing Physician Phone Number [phone] GENERAL TEST INFORMATION See Note This screening [...] its performance characteristics determined by [facility] in a manner consistent with CLIA requirements. This test has not been cleared or approved by the U.S. Food and Drug Administration. Test Performed by: [facility] [address] [place] [address] Blower Installer: Gamaliel Au Ph.D.; CLIA# [id number] PERFORMED AT [address] [place] [address] 07/27/2024 3:10 PM EDT 07/27/2024 3:12 PM EDT Osmany Jena DO LAB BLOOD ORDERABLES Final Resul t Performing Organization Address City/[facility]/ZIP Co de Phone Number [facility] * SYPHILIS TOTAL ([facility]) (07/27/2024 3:10 PM EDT) Pathologist [facility] SYPHILIS TOTAL <0.2 0.0 - 0.8 AI [facility] Comment: NON REACTIVE No serologic evidence of infection to Treponema pallidum (syphilis). Repeat testing may be considered in patients with suspected acute or primary syphilis in 2 to 4 weeks. PERFORMED AT [address],[place] [address] 07/27/2024 3:10 PM EDT 07/27/2024 3:12 PM EDT Ruby Groupeo DO LAB BLOOD ORDERABLES Final Resul t Performing Organization Address [facility] Co de Phone Number [facility] * Rubella antibody, IgG (07/27/2024 3:10 PM EDT) [facility] RUBELLA IGG 15 IU/mL [facility] Comment: Interpretation-------- <8 NEGATIVE-considered Not Immune 8-9 EQUIVOCAL-consider retesting with new specimen >9 POSITIVE-considered Immune PERFORMED AT [address],[place] [address] 07/27/2024 3:10 PM EDT 07/27/2024 3:12 PM EDT OsmanyVenueBooko DO LAB BLOOD ORDERABLES Final Resul t Performing Organization Address City/[facility]/ZIP Co de Phone Number [facility] * Hepatitis C antibody (07/27/2024 3:10 PM EDT) Pathologist [facility] ANTI HCV W/PCR REFLEX Non-Reacti ve Non-Reacti ve [facility] Comment: NEW TEST METHOD NOTE If recent infection suspected, recommend repeat testing (>2 months). Ysfghl-cd-oypyve ratio is <1.00. PERFORMED AT [address],[place] [address] 07/27/2024 3:10 PM EDT 07/27/2024 3:12 PM EDT Osmany Jena DO LAB BLOOD ORDERABLES Final Resul t [facility] * Hepatitis B surface antigen (07/27/2024 3:10 PM EDT) Pathologist [facility] HEPATITIS B SURG AG Non-Reacti ve Non-Reacti ve [facility] Comment: NEW TEST METHOD PERFORMED AT [address],[place] [address] 07/27/2024 3:10 PM EDT 07/27/2024 3:12 PM EDT Ruby Groupeo DO LAB BLOOD ORDERABLES Final Resul t [facility] * DRUG SCREEN, URINE (07/27/2024 3:10 PM EDT) Pathologist [facility] AMPHETAMINE/METHAMP Negative Negative [facility] Comment:AMPH/METH [...] monitoring or management of patients. PERFORMED [address], [place] [address] 07/27/2024 3:10 PM EDT 07/27/2024 3:12 PM EDT us Osmany Jena DO LAB BLOOD ORDERABLES Final Resul t Performing Organization Address City/[facility]/ZIP Co de Phone Number [facility] * TSH ([facility]) (07/27/2024 3:10 PM EDT) TSH 1.68 0.49 - 4.67 uIU/mL [facility] Comment:PERFORMED AT [address],[place] [address] 07/27/2024 3:10 PM EDT 07/27/2024 3:12 PM [...] AVERAGE GLUCOSE 85 mg/dL [facility] Comment:PERFORMED AT [facility] [address],[place] [address] 07/27/2024 3:10 PM EDT 07/27/2024 3:12 PM [...] 0.0 - 0.2 X10E9/L [facility] Comment:PERFORMED AT [facility] [address],[place] [address] 07/27/2024 3:10 PM EDT 07/27/2024 3:12 PM EDT us Osmany Jena DO LAB BLOOD ORDERABLES Final Resul t [facility] * US OB follow up transabdominal approach (07/07/2024 2:55 PM EST) Anatomical Region Laterality Modality Body Ultrasound 07/07/2024 2:55 PM EST Narrative 07/07/2024 2:54 PM EST [facility] H[facility]ORY: Vaginal bleeding in COMPARISON: 05/15/2024 EVALUATION: [...] THIS EXAM WAS PERFORMED AT [facility] HISTORY: Vaginal bleeding in COMPARISON: 05/15/2024 EVALUATION: [...]
--- OUTSIDE RECORDS SUMMARY | 2024-10-28 19:38 | XMS_ITS | Encounter Summary ---
Author Organization [facility] Address [address] [facility] [place] [address] Care Team Providers Care Patching Machine Operator Name Role Phone Unavailable Primary Care Provider Unavailabl e Encounter Details Date Type Department Care Team (Late Contact Info) Description 10/28/2024 Bamboo flowsheet [facility] OB [address] [facility] [place] [address] Osmany Bella DO [address] [facility] [address] [place], [facility]11 Social History Tobacco [...] 11/10/2024 2:20 PM EDT Office Visit [facility] OB [address] [facility] [place] [address] Mya Kaplan PA [address] [place], [place] [address] documented as of this encounter Visit Diagnoses Not on filedocumented in this encounter
--- OUTSIDE RECORDS SUMMARY | 2024-10-28 19:38 | XMS_ITS | Encounter Summary ---
Author Organization [employer] Address [facility]-[id number] [address] [place] [address] Care Team Providers Care Professor Of History Name Role Phone No Pcp, No Pcp Primary Care Provider Unavailabl e Encounter Details Date Type Department Care Team (Late st Contact Info) Description 03/06/2021 Telephone [facility] [address] [place] [address] [place] [address] Madeline Tubbs RMA Social History [...] test was ordered and sent over to [facility]. documented in this encounter Plan of [...] documented as of this encounter Care Teams Professor Of History Relationship Specialty Start Date End Date No Pcp, [place] [address] PCP - General Family Medicine 09/01/24 documented as of this encounter
--- OUTSIDE RECORDS SUMMARY | 2024-10-28 19:39 | XMS_ITS | Encounter Summary ---
Author Organization [facility] Address [address] [facility] [place] [address] Care Team Providers Care Vertica Architect Name Role Phone Unavailable Primary Care Provider Unavailabl e Encounter Details Date Type Department Care Team (Late Contact Info) Description 10/12/2024 Telephone [facility] OB [address] [facility] [place] [address] Christie Wiley LPN Social History Tobacco [...] EDT Office Visit [facility] OB [address] [place] [address] Mya Kaplan PA [address] [facility] [facility] [address] [place], [place] [address] documented as of this encounter Visit Diagnoses Not on filedocumented in this encounter
--- OUTSIDE RECORDS SUMMARY | 2024-10-28 19:39 | XMS_ITS | Encounter Summary ---
Author Organization [employer] Address [id number] [address] [place] [address] Care Team Providers Care Maintenance Electrician Name Role Phone No Pcp, No Pcp Primary Care Provider Unavailabl e Encounter Details Date Type Department Care Team (Late st Contact Info) Description 08/03/2021 Documentation [facility] [address] [place] [address] [place] [address] Mona Delvalle CMA Social History [...] often do you attend chur ch or congregation services? Never 03/26/2021 Do you belong to any clubs o r organizations such as taoism groups, unions, fraternal or athletic groups, or [...] Answer Date Recorded Total Score 15 08/03/2021 [facility] of Occupat ional [...] documented as of this encounter Care Teams Maintenance Electrician Relationship Specialty Start Date End Date No Pcp, [place] [address] PCP - General Family Medicine 09/01/24 documented as of this encounter
--- OUTSIDE RECORDS SUMMARY | 2024-10-28 19:39 | XMS_ITS | Encounter Summary ---
Author Organization [facility] Address [address] [facility] [place] [address] Care Team Providers Care Algebraist Name Role Phone Unavailable Primary Care Provider Unavailabl e Encounter Details Date Type Department Care Team ([facility] Contact Info) Description 11/27/2022 Abstract [facility] OB [address] [facility] [place] [address] Mya Kaplan PA [address] [place] [address] [place] [address] Social History Tobacco Use Types [...] 11/10/2024 2:20 PM EDT Office Visit [facility] OB [address] [facility] [place] [address] Mya Kaplan PA [address] [place] [address] [place] [address] documented as of this encounter Visit Diagnoses Not on filedocumented in this encounter
--- OUTSIDE RECORDS SUMMARY | 2024-10-28 19:39 | XMS_ITS | Encounter Summary ---
Author Organization [facility] Address [address] [facility] [place] [address] Care Team Providers Care Ludlow Machine Operator Name Role Phone Unavailable Primary Care Provider Unavailabl e Encounter Details Date Type Department Care Team (Late Contact Info) Description 11/07/2022 Abstract [facility] OB [address] [facility] [place] [address] Osmany Bella DO [address] [facility] [place] [address] Social History Tobacco Use [...] 11/10/2024 2:20 PM EDT Office Visit [facility] OB [address] [facility] [place] [address] Mya Kaplan PA [address] [place] [address] documented as of this encounter Visit Diagnoses Not on filedocumented in this encounter
--- OUTSIDE RECORDS SUMMARY | 2024-10-28 19:39 | XMS_ITS | Encounter Summary ---
Author Organization [facility] Address [address] [facility] [place] [address] Care Team Providers Care Polysilicon Preparation Worker Name Role Phone Unavailable Primary Care Provider Unavailabl e Encounter Details Date Type Department Care Team (Late Contact Info) Description 11/02/2022 Abstract [facility] OB [address] [facility] [address] Osmany Bella DO [address] [facility] [place] [address] Social History Tobacco Use Types Packs/Day [...] 11/10/2024 2:20 PM EDT Office Visit [facility] OB [address] [facility] [place] [address] Mya Kaplan PA [address] [place] [address] documented as of this encounter Visit Diagnoses Not on filedocumented in this encounter
--- OUTSIDE RECORDS SUMMARY | 2024-10-28 19:39 | XMS_ITS | Encounter Summary ---
Author Organization [facility] Address [address] [facility] [place] [address] Care Team Providers Care Bioengineer Name Role Phone Unavailable Primary Care Provider Unavailabl e Encounter Details Date Type Department Care Team (Late Contact Info) Description 10/15/2024 Bamboo flowsheet [facility] OB [address] [facility] [address] Mya Kaplan, PA [address] [place] [address] Dr [place], [facility]11 Social History Tobacco Use Types [...] 11/10/2024 2:20 PM EDT Office Visit [facility] OB [address] [facility] [place] [address] Mya Kaplan PA [address] [facility] [address] [place], [facility]11 documented as of this encounter Visit Diagnoses Not on filedocumented in this encounter
--- OUTSIDE RECORDS SUMMARY | 2024-10-28 19:39 | XMS_ITS | Encounter Summary ---
Author Organization [employer] Address [id number] [address] [place] [address] Care Team Providers Care Supervisor Pipeline Maintenance Name Role Phone No Pcp, No Pcp Primary Care Provider Unavailabl e Encounter Details Date Type Department Care Team (Late st Contact Info) Description 08/03/2021 Telephone [facility] [address] [place] [address] Mona Delvalle CMA Social History [...] Answer Date Recorded Total Score 15 08/03/2021 [facility] Health - Occupational Stress [...] documented as of this encounter Care Teams Supervisor Pipeline Maintenance Relationship Specialty Start Date End Date No Pcp[place] [address] PCP - General Family Medicine 09/01/24 documented as of this encounter
--- OUTSIDE RECORDS SUMMARY | 2024-10-28 19:39 | XMS_ITS | Encounter Summary ---
Author Organization [employer] Sys tem Address [id number] [address] [place] [address] Care Team Providers Care Refining Equipment Operator Name Role Phone No Pcp, No Pcp Primary Care Provider Unavailabl e Encounter Details Date Type Department Care Team (Late st Contact Info) Description 08/29/2023 Telephone [facility] [address] [facility] [address] [place] [address] Julia Morgan CMA Social History [...] often do you attend chur ch or denominational services? Never 03/26/2021 Do you belong to any clubs o r organizations such as zoroastrianism groups, unions, fraternal or athletic groups, or [...] things needed for daily living? No 03/26/2021 [place] Depression Scale Answer Date Recorded [place] Depression Scale Total 7 04/05/2023 The thought [...] Do you need help finding a [facility] career center and/or a training [...] documented as of this encounter Care Teams Refining Equipment Operator Relationship Specialty Start Date End Date No Pcp, [place] [address] PCP - General Family Medicine 09/01/24 documented as of this encounter
--- OUTSIDE RECORDS SUMMARY | 2024-10-28 19:39 | XMS_ITS | Encounter Summary ---
Author Organization [employer] tem Address [id number] [address] [place] [address] Care Team Providers Care Motor And Chassis Inspector Name Role Phone No Pcp, No Pcp Primary Care Provider Unavailabl e Encounter Details Date Type Department Care Team (Late st Contact Info) Description 09/17/2023 Telephone [facility] [address] [facility] [address] [place] [address] Tameka Abebe Social History Tobacco [...] often do you attend chur ch or catholic services? Never 03/26/2021 Do you belong to any clubs o r organizations such as anglican groups, unions, fraternal or athletic groups, or [...] Answer Date Recorded Total Score 4 08/29/2023 [facility] of Occupat ional Health - Occupational Stress [...] things needed for daily living? No 03/26/2021 [place] Depression Scale Answer Date Recorded [place] Depression Scale Total 13 09/12/2023 The thought [...] Recorded Do you need help finding a [facility] career [facility] and/or a training program? No [...] Tums as needed. She also needs to pattern changer to frequent small meals, she should [...] labs results. * Telephone Encounter - Estefany Hliario LPN - 09/17/2023 8:42 AM EDT Letter [...] documented as of this encounter Care Teams Motor And Chassis Inspector Relationship Specialty Start Date End Date No Pcp, [place] [address] PCP - General Family Medicine 09/01/24 documented as of this encounter
--- OUTSIDE RECORDS SUMMARY | 2024-10-28 19:39 | XMS_ITS | Encounter Summary ---
Author Organization [email or web address] Sys [employer] Address [id number] [address] [place] [address] Care Team Providers Care Dental Coordinator Name Role Phone No Pcp, No Pcp Primary Care Provider Unavailabl e Encounter Details Date Type Department Care Team (Late st Contact Info) Description 09/11/2023 Orders Only [facility] [address] [place] [address] Estefany Hilario LPN Screening for [...] Date Recorded Total Score 4 08/29/2023 [facility] of Occupat ional Health [...] things needed for daily living? No 03/26/2021 [place] Depression Scale Answer Date Recorded [place] Depression Scale Total 13 09/12/2023 The thought [...] SEE ATTACHED SCANNED REPORT us Reyna Diaz MEAT SOAKER-CNM LAB BLOOD ORDERABLES Fin al Result MANUALLY [...] documented as of this encounter Care Teams Dental Coordinator Relationship Specialty Start Date End Date No Pcp, [place] [address] PCP - General Family Medicine 09/01/24 documented as of this encounter
--- OUTSIDE RECORDS SUMMARY | 2024-10-28 19:39 | XMS_ITS | Encounter Summary ---
Author Organization [employer] tem Address [facility][id number] [address] [place] [address] Care Team Providers Care Office Systems Technology Instructor Name Role Phone No Pcp, No Pcp Primary Care Provider Unavailabl e Reason for Visit * Reason Onset Date Comments Med Refill 09/07/2020 Encounter Details Date Type Department Care Team (Late st Contact Info) Description 09/07/2020 Refill [facility] [address] [place] [address] [place] [address] Cooper Goff CMA Social History [...] documented as of this encounter Care Teams Office Systems Technology Instructor Relationship Specialty Start Date End Date No Pcp, [place] [address] PCP - General Family Medicine 09/01/24 documented as of this encounter
--- OUTSIDE RECORDS SUMMARY | 2024-10-28 19:39 | XMS_ITS | Encounter Summary ---
Author Organization [employer] Sys [employer] Address [id number] [address] [place] [address] Care Team Providers Care Boatwright Name Role Phone No Pcp, No Pcp Primary Care Provider Unavailabl e Encounter Details Date Type Department Care Team (Late st Contact Info) Description 10/05/2020 Telephone [facility] [address] [place] [address] Cooper Goff CMA Social History [...] documented as of this encounter Care Teams Boatwright Relationship Specialty Start Date End Date No Pcp, [place] [address] PCP - General Family Medicine 09/01/24 documented as of this encounter
--- OUTSIDE RECORDS SUMMARY | 2024-10-28 19:39 | XMS_ITS | Encounter Summary ---
Author Organization [employer] Sys [employer] Address [id number] [address] [place] [address] Care Team Providers Care Bonded Structures Repairer Name Role Phone No Pcp, No Pcp Primary Care Provider Unavailabl e Encounter Details Date Type Department Care Team (Late st Contact Info) Description 09/07/2020 Telephone [facility] [address] [place] [address] [place] [address] Cooper Goff CMA Social History [...] documented as of this encounter Care Teams Bonded Structures Repairer Relationship Specialty Start Date End Date No Pcp, [place] [address] PCP - General Family Medicine 09/01/24 documented as of this encounter
--- OUTSIDE RECORDS SUMMARY | 2024-10-28 19:39 | XMS_ITS | Encounter Summary ---
Author Organization [employer] Address [id number] [address] [place] [address] Care Team Providers Care Road Monkey Name Role Phone No Pcp, No Pcp Primary Care Provider Unavailabl e Reason for Visit * Reason Comments Med Refill Encounter Details Date Type Department Care Team (Late st Contact Info) Description 12/14/2023 Refill [facility] [address] [place] [phone] Gwen Sutton, APPEALS ANALYST-[facility] [address] [place], [place] [id number] Social History Tobacco Use Types Packs/Day Years [...] Answer Date Recorded Total Score 4 08/29/2023 [facility] of Occupat ional Health - Occupational [...] things needed for daily living? No 03/26/2021 [place] Depression Scale Answer Date Recorded [place] Depression Scale Total 13 09/12/2023 The thought [...] Recorded Do you need help finding a [facility] career center and/or a training program? [...] documented as of this encounter Care Teams Road Monkey Relationship Specialty Start Date End Date No Pcp, [place] [address] PCP - General Family Medicine 09/01/24 documented as of this encounter
--- OUTSIDE RECORDS SUMMARY | 2024-10-28 19:39 | XMS_ITS | Encounter Summary ---
Author Organization [employer] tem Address [id number] [address] [place] [address] Care Team Providers Care Director Loss Prevention Name Role Phone No Pcp, No Pcp Primary Care Provider Unavailabl e Reason for Visit * Reason Comments Med Refill Encounter Details Date Type Department Care Team (Late st Contact Info) Description 11/12/2020 Refill [facility] [address] [place] [address] [place] [phone] Iona Layne, LOAD DROPPER-CYLINDER INSPECTOR AND TESTER [address] [place] [address] Hematemesis without nausea Social History [...] as of this encounter Care Teams Director Loss Prevention Relationship Specialty Start Date End Date No Pcp, [place] [address] PCP - General Family Medicine 09/01/24 documented as of this encounter
--- OUTSIDE RECORDS SUMMARY | 2024-10-28 19:39 | XMS_ITS | Encounter Summary ---
Author Organization [facility] Address [address] [facility] [place] [address] Care Team Providers Care Invas Tech Name Role Phone Unavailable Primary Care Provider Unavailabl e Encounter Details Date Type Department Care Team (Late Contact Info) Description 10/21/2024 Bamboo flowsheet [facility] [address] [place] [address] Mya Kaplan, PA [address] [place] [address] Dr [place], [facility] Social History Tobacco Use Types Packs/Day [...] 11/10/2024 2:20 PM EDT Office Visit [facility] [address] [place] [address] Mya Kaplan PA [address] [place], [facility]11 documented as of this encounter Visit Diagnoses Not on filedocumented in this encounter
--- OUTSIDE RECORDS SUMMARY | 2024-10-28 19:39 | XMS_ITS | Encounter Summary ---
Author Organization [employer] Address [id number] [address] [place] [address] Care Team Providers Care It Risk And Assurance Manager Name Role Phone No Pcp, No Pcp Primary Care Provider Unavailabl e Encounter Details Date Type Department Care Team (Late st Contact Info) Description 09/09/2023 Orders Only [facility] [address] [place] [address] Estefany Hilario LPN Encounter for [...] Answer Date Recorded Total Score 4 08/29/2023 [facility] of Occupat ional Health [...] things needed for daily living? No 03/26/2021 [place] Depression Scale Answer Date Recorded [place] Depression Scale Total 13 09/12/2023 The thought [...] SEE ATTACHED SCANNED REPORT us Reyna Diaz OPERATIONS ACCOUNTANT-CNM LAB BLOOD ORDERABLES Fin al Result [...] documented as of this encounter Care Teams It Risk And Assurance Manager Relationship Specialty Start Date End Date No Pcp, [place] [address] PCP - General Family Medicine 09/01/24 documented as of this encounter
== END 2024-10-28 19:35 | disposition home or self-care (01) ==
LOC: LAB 19:34
PROVIDERS: Visit Provider Obstetrics & Gynecology
DX: Z34.93 Encounter for supervision of normal pregnancy, unspecified, third trimester (principal); Z3A.36 36 weeks gestation of pregnancy
CPT/HCPCS: 87081

== ENCOUNTER 2024-10-30 11:55 | Outpatient (OUT) | payer MEDICAID, SELFPAY ==
--- OUTSIDE RECORDS SUMMARY | 2023-09-02 13:15 | XMS_ITS ---
Author Organization [facility] vices Address [address] [place], [place] [id number] Care Team Providers Care Exhaust And Muffler Repairer Name Role Phone Arlene Ospina Primary Care Provider [phone] Ruth Bess [phone] REASON FOR VISIT Initial psychiatric evaluation Medications Medication SIG (Take, Route, Frequency, Duration) Notes Start Date End Date Status Aspirin 81 MG chew and swallow 1 tablet by mouth every morning Oral for 30 Days Active Nitrofurantoin Monohyd Macro 100 MG Oral for 7 Days Active Magnesium Oxide 400 MG Oral for 30 Days Active Docusate Sodium 100 MG Oral for 30 Days Active 28-0.8 MG Oral for 30 Days Active Lansoprazole 30 MG Oral for 30 Days Active Social History Sex Assigned At : Social History Observation Description Sex Assigned At Female Encounters Encounter Location Date Provider Diagnosis Main [address] [place], [place] [id number] 09/02/2023 Ruth Bess Dietary counseling Z 71.3 and Exercise counseling Z71.82 Assessments Encounter Date Diagnosis (ICD Code) Assessment Notes Treatment Notes Treatment Clinical Notes Section Notes 09/02/2023 Dietary counseling (ICD-10 - Z71.3) 09/02/2023 Exercise counseling (ICD-10 - Z71.82) Plan Of Treatment Next Appt Details Follow Up: 4 Weeks,prn, Reas on: Progress Notes * Chetna PONDonDOB:2000 (24 yo F)Acc No.[id number]:09/02/2023 Patient: Georgie ARAMBULA Provider: DELIA Kebede :2000 A ge:22 Y S ex:Female Date:09/02/2023 Address:[address] [place], [place] [address] Pcp:Arlene Ospina Subjective: * Chief Complaints: * 1 . Initial psychiatric evaluation. * Medical History: * Medications: T aking 28-0.8 MG Tablet Oral , Taking Docusate Sodium 100 MG Capsule Oral , Taking Magnesium Oxide 400 MG Tablet Oral , Taking Lansoprazole 30 MG Capsule Delayed Release Oral , Taking Nitrofurantoin Monohyd Macro 100 MG Capsule Oral , Taking Aspirin 81 MG Tablet Chewable chew and swallow 1 tablet by mouth every morning Oral Objective: * Vitals: Assessment: * Assessment: 1. D ietary counseling - Z71.3 2 . E xercise counseling - Z71.82 Plan: * Treatment: * Follow Up: 4 Weeks,prn Care Plan: * Problems: * Billing Information: * Visit Code: 39276 Psychiatric diagnostic eval with med sv. Modifiers: SA * Procedure Codes: Care Plan Details* * Electronic signature of DELIA Madsen on 10/30/2024 at 11:59 AM EDT Sign off status: Pending * Provider: DELIA Kebede Date: 0 09/02/2023 Generated for Yarely leon/Arvind/Thangitting on: 0 10/30/2024 11:59 AM EDT
--- OUTSIDE RECORDS SUMMARY | 2024-10-21 14:30 | XMS_ITS | Encounter Summary ---
Author Organization [facility] Address [address] [place] [address] Care Team Providers Care Director Social Welfare Name Role Phone Unavailable Primary Care Provider Unavailabl e Encounter Details Date Type Department Care Team (Late st Contact Info) Description 10/21/2024 2:30 PM EDT Routine [facility] OB [address] [place] [phone] Mya Kaplan PA [address] [place], [facility]11 35 weeks gestation of ([facility]); Third trimester ([facility]) Social History Tobacco Use Types Packs/Day Years [...] nursing note reviewed. Exam conducted with a tunnel kiln operator present. Vitals: There is no height [...] is now able to resume visitation at [facility] Facility as previously scheduled to see her twins. Patient verbalized understanding and will return to clinic in 1 week. Documented by Christie Wiley LPN on behalf of: BLANCA Gibson documented in this encounter Plan of Treatment Upcoming Encounters Date Type Department Care Team (Late st Contact Info) Description 11/10/2024 2:20 PM EDT Office Visit [facility] [address] [place] [phone] Mya Kaplan PA [address] [place] [address] documented as of this encounter Procedures Procedure Name Priority Date/Time Associated Diagnosis Comments POCT URINALYSIS DIPSTICK Routine 10/21/2024 3:08 PM EDT 35 weeks gestation of ([facility]) Third trimester ([facility]) documented in this encounter Results * (ABNORMAL) [...] Diagnosis 35 weeks gestation of ([facility]) Third trimester ([facility]) state, incidental documented in this encounter
--- OUTSIDE RECORDS SUMMARY | 2024-10-28 14:30 | XMS_ITS | Encounter Summary ---
Author Organization [facility] Address [address] [place] [address] Care Team Providers Care Deputy Register Of Deeds Name Role Phone Unavailable Primary Care Provider Unavailabl e Reason for Visit * Reason Comments Routine Visit Encounter Details Date Type Department Care Team (Latest Contact Info) Description 10/28/2024 2:30 PM EDT Routine [facility] OB [address] [place] [phone] Osmany Bella, DO [address] [facility] [place] [address] Gastroesophageal reflux in ([facility]) (Primary Dx); Third trimester ([facility]); 36 weeks gestation of ([facility]); H/O incompetent cervix, currently ([facility] Social History Tobacco Use Types Packs/Day [...] EDT Office Visit [facility] BCP OB [address] [facility] [address] Mya Kaplan PA [address] [facility] [place] [address] Scheduled Orders Name Type Priority Associated Diagnoses Orde r Schedule CULTURE, GROUP B STREP WITH SUSCEPTIBLITY Lab Routine Third trimester ([facility]) Expected: 10/28/2024, Expires: 10/28/2025 documented as of this encounter Procedures Procedure Name Priority Date/Time Associated Diagnosis Comments POCT URINALYSIS DIPSTICK Routine 10/28/2024 2:59 PM EDT Third trimester ([facility]) 36 weeks gestation of ([facility]) documented in this encounter Results * (ABNORMAL) [...] encounter Visit Diagnoses Diagnosis Gastroesophageal reflux in ([facility])- Primary Third trimester ([facility]) state, incidental 36 weeks gestation of ([facility]) H/O incompetent cervix, currently ([facility]) documented in this encounter
--- OUTSIDE RECORDS SUMMARY | 2024-10-30 11:57 | XMS_ITS | Encounter Summary ---
Author Organization [facility] Address [address] [place] [address] Care Team Providers Care Superintendent Overhead Distribution Name Role Phone Unavailable Primary Care Provider Unavailabl e Encounter Details Date Type Department Care Team ([facility] Contact Info) Description 12/13/2023 Abstract [facility] [address] [place] [address] Isadora Martin, CNM [address] [place], [place] [id number] Social History Tobacco Use Types Packs/Day Years Used Date Smoking Tobacco: Never Assessed Comments Yes Sex and Gender Information Value Date Recorded Sex Assigned at Not on file Legal Sex Female 11:47 PM EDT Gender Identity Not on file Sexual Orientation Not on file documented as of this encounter Plan of Treatment Upcoming Encounters Date Type Department Care Team ([facility] Contact Info) Description 11/10/2024 2:20 PM EDT Office Visit [facility] [address] [facility] [place] [address] Mya Kaplan PA [address] [facility] [place] [address] documented as of this encounter Visit Diagnoses Not on filedocumented in this encounter
--- OUTSIDE RECORDS SUMMARY | 2024-10-30 11:57 | XMS_ITS | Encounter Summary ---
Author Organization [facility] Address [address] [facility] [place] [address] Care Team Providers Care Machine Rope Maker Name Role Phone Unavailable Primary Care Provider Unavailabl e Encounter Details Date Type Department Care Team (Late Contact Info) Description 12/12/2023 Abstract [facility] [address] [place] [phone] Osmany Bella DO [address] [facility] [address] Siddhartha Barrera, [facility]11 Social History Tobacco Use Types Packs/Day [...] 11/10/2024 2:20 PM EDT Office Visit [facility] [address] [place] [phone] Mya Kaplan PA [address] [place], [place] [phone] documented as of this encounter Visit Diagnoses Not on filedocumented in this encounter
--- OUTSIDE RECORDS SUMMARY | 2024-10-30 11:57 | XMS_ITS | Encounter Summary ---
Author Organization [facility] Address [address] [place] [address] Care Team Providers Care Tooling Engineer Name Role Phone Unavailable Primary Care Provider Unavailabl e Encounter Details Date Type Department Care Team (Late st Contact Info) Description 12/15/2023 Clinisync Result Encounter [facility] External Department Unsolicited Zhane Bella DO [address] Siddhartha Barrera, [facility]11 Social History Tobacco Use Types [...] EDT Office Visit [facility] [address] [place] [address] Mya Kaplan PA [address] [place] [address] documented as of this encounter Procedures Procedure Name Priority Date/Time Associated Diagnosis Comments ECG 12-LEAD 12/15/2023 11:21 AM EDT documented in this encounter Results * ECG 12-LEAD (12/15/2023 11:21 AM EDT) Anatomical Region Laterality Modality Other 12/15/2023 11:2 1 AM EDT Narrative 12/16/2023 8:32 AM EDT [facility] [place] [id number] Electrocardiograph Report Signed Patient: GEORGIE POND MR#: [id number] : 2000 Acct:[id number] Age/Sex: 23 / F ADM Date: Loc: [facility] 258- Attending Dr: Zhane Bella D.O. Ordering Physician: Zhane Bella D.O. Date of Service: 12/15/23 Procedure(s): ECG 12 lead Accession Number(s): [id number] cc: [facility] Test Date: 2023-12-15 Pat Name: GEORGIE POND Department: Room: [facility] Gender: Female Textile Technologist: : 2000 Requested By: ZHANE BELLA Order Number: [id number] Reading MD: BEAR RICHARDSON Measurements Intervals [place] Rate: 80 P: 20 IL: 145 QRS: 32 QRSD: 86 T: 26 QT: 352 QTc: 408 Interpretive Statements SINUS RHYTHM Non-Specific T wave inversion in III WARNING: DATA QUALITY MAY AFFECT INTERPRETATION No previous ECG available for comparison Electronically Signed On 12-16-2023 8:32:05 EDT by BEAR RICHARDSON Dictated By: Bear Richardson M.D. Signed By: 12/16/23 0832 DD/ 1121 TD/TT: Tile Decorator: Procedure Note Radiology, Radiologist, MD - 12/16/2023 [facility] [place] [id number] Electrocardiograph Report Signed Patient: GEORGIE POND TMR#: [id number] : 2000Acct:[id number] Age/Sex: 23 / FADM Date: Loc: [facility] 258-[address]: Zhane Bella D.O. Ordering Physician: Zhane Bella D.O. Date of Service: 12/15/23 Procedure(s): ECG 12 lead Accession Number(s): [id number] cc: [facility] Test Date: 2023-12-15 Pat Name: GEORGIE RAKAY Department: Room: [facility] Gender: Female Textile Technologist: : 2000 Requested By: ZHANE BELLA Order Number: [id number] Reading MD: BEAR RICHARDSON Measurements Intervals [place] Rate: 80 P: 20 IL: 145 QRS: 32 QRSD: 86 T: 26 QT: 352 QTc: 408 Interpretive Statements SINUS RHYTHM Non-Specific T wave inversion in III WARNING: DATA QUALITY MAY AFFECT INTERPRETATION No previous ECG available for comparison Electronically Signed On 12-16-2023 8:32:05 EDT by BEAR RICHARDSON Dictated By: Bear Richardson M.D. Signed By:12/16/23 0832 DD/ 1121 TD/TT: Tile Decorator: us Zhane Bella DO [facility] Final Result documented in this encounter Visit Diagnoses Not on filedocumented in this encounter
--- OUTSIDE RECORDS SUMMARY | 2024-10-30 11:57 | XMS_ITS | Encounter Summary ---
Author Organization [facility] Address [address] [facility] [address] Care Team Providers Care Intervention Specialist Name Role Phone Unavailable Primary Care Provider Unavailabl e Encounter Details Date Type Department Care Team (Late Contact Info) Description 12/12/2023 Abstract [facility] [address] [facility] [place] [phone] Osmany Bella DO [address] Siddhartha Barrera, [facility] Social History Tobacco Use Types Packs/Day Years [...] 11/10/2024 2:20 PM EDT Office Visit [facility] [address] [facility] [place] [phone] Mya Kaplan PA [address] [place], [place] [address] documented as of this encounter Visit Diagnoses Not on filedocumented in this encounter
--- OUTSIDE RECORDS SUMMARY | 2024-10-30 11:57 | XMS_ITS | Encounter Summary ---
Author Organization [employer] Address [id number] [address] [place] [address] Care Team Providers Care Supervisor Dental Laboratory Name Role Phone No Pcp, No Pcp Primary Care Provider Unavailabl e Encounter Details Date Type Department Care Team (Late st Contact Info) Description 09/25/2024 Orders Only [facility] [address] [place] [phone] Madeline Gamboa [facility] [address] [place] [phone] Bacterial vaginosis in (Primary Dx) Social History [...] things needed for daily living? No 09/22/2024 [place] Depression Scale Answer Date Recorded [place] Depression Scale Total 13 09/12/2023 The thought [...] Recorded Do you need help finding a [facility] career center and/or a training program? No [...] as of this encounter Care Teams Supervisor Dental Laboratory Relationship Specialty Start Date End Date No Pcp[place] [address] PCP - General Family Medicine 09/01/24 documented as of this encounter
--- OUTSIDE RECORDS SUMMARY | 2024-10-30 11:57 | XMS_ITS | Encounter Summary ---
Author Organization [facility] Address [address] [place] [address] Care Team Providers Care Card Runner Name Role Phone Unavailable Primary Care Provider Unavailabl e Encounter Details Date Type Department Care Team (Late Contact Info) Description 08/05/2023 Abstract [facility] [address] [facility] [place] [phone] Kimi Olsen LPN [address] [facility] Social History Tobacco Use [...] 11/10/2024 2:20 PM EDT Office Visit [facility] [address] [facility] [place] [address] Mya Kaplan PA [address] [facility] [place], [place] [phone] documented as of this encounter Visit Diagnoses Not on filedocumented in this encounter
--- OUTSIDE RECORDS SUMMARY | 2024-10-30 11:57 | XMS_ITS | Encounter Summary ---
Author Organization [facility] Address [address] [facility] [place] [address] Care Team Providers Care Branch Office Manager Name Role Phone Unavailable Primary Care Provider Unavailabl e Encounter Details Date Type Department Care Team (Late Contact Info) Description 12/11/2023 Abstract [facility] [address] [facility] [place] [phone] Osmany Bella DO [address] [facility] [address] Siddhartha Barrera, [facility]11 Social History Tobacco Use Types [...] Office Visit [facility] [address] [place] [phone] Mya Kaplan PA [address] [facility] [address] [place], [place] [address] documented as of this encounter Visit Diagnoses Not on filedocumented in this encounter
--- OUTSIDE RECORDS SUMMARY | 2024-10-30 11:57 | XMS_ITS | Clinical Summary ---
Author Organization 1spire tem Address [id number] [address] [place] [address] Care Team Providers Care Production Dispatcher Name Role Phone No Pcp, No Pcp Primary Care Provider Unavailabl e Allergies No known active allergies Medications * This document contains information received from the source organization and may not represent a complete record from that organization. [id number] c acid () 29 mg iron- 1 [...] weeks. Marijuana use during 08/29/2023 Overview (08/29/2023): 630341 THC positive and patient educated on cessation. Hx of delivery, currently 08/27 Overview (08/29/2023): Twins delivered 02-03-2023 at 25w2d 07/28/23 cervical length 4 cm Acute cystitis 08/28/2023 Overview (08/28/2023): 08-22-23 treated in [place] ER with Macrobid Intractable chronic migraine without aura 2023 Overview (08/28/2023): 05/10/2023 Neuro consult placed Magnesium Citrate ordered 400mg daily Episode of recurrent major depressive disorder 0 07/06/2021 Overview (08/28/2023): Has appointment at [facility] on 09-18-23 Slow transit constipation 03/12/2019 Assessment [...] [address] [place] [id number] Madeline Gamboa APRN-SHANIA Bacterial vaginosis in (Primary Dx) 09/22/2024 Travel 09/21/2024 10:18 AM EDT - 09/21/2024 11:59 PM EDT Hospital Encounter [facility] - [facility] US Imaging [address] [place] [address] Discharge Disposition: Home 09/18/2024 10:04 PM EDT - 09/22/2024 3:00 AM EDT Hospital Encounter [facility] - GEN 3 Antepartum [address] [place] [address] Bala Randle MD Discharge Disposition: [facility] 09/18/2024 4:18 PM EDT - 09/18/2024 10:03 PM EDT Emergency [facility] - Emergency [address] [place] [address] Saroj Carreon, Suicide attempt ([facility]) (Primary Dx) Discharge Disposition: [facility] 09/18/2024 Travel 09/01/2024 Travel 08/03/2024 6:20 AM EDT - 08/03/2024 9:22 AM EDT Hospital Encounter [facility] [address] [place] [address] Ynes Gale, CAR PAINTER-CN Saul Fan MD Discharge Disposition: Home 08/03/2024 Orders Only [facility] - [facility] [address] [place] [address] Violeta De Leon, CAR PAINTER-CN Urinary tract infection in mother during , [...] In the past 12 months has e [place], gas, oil, or water [email or web address] threatened to shut off services in your home? No 09/22/2024 Social Connection and Isolation Panel [NHANES] A nswer Date Recorded In a typical week, how many times do you talk on the phone with family, friends, or neighbors? Three times a week 03/26/20 How often do you get togethe r with friends or relatives? Never 03/26/2021 How often do you attend chur or mormon services? Never 03/26/2021 Do you [...] Answer Date Recorded Total Score 4 08/29/2023 [facility] [...] things needed for daily living? No 09/22/2024 [place] Depression Scale Answer Date Recorded [place] Depression Scale Total 13 09/12/2023 The thought [...] URINE CULTURE Routine 09/23/2024 4:56 PM EDT RUST COMPREHENSIVE ANATOMIC SURVEY Routine 09/21/2024 11:04 AM [...] COLOR Yellow Yellow, Colorless 09/24/2024 1:13 AM [facility] TURBIDITY Clear Clear 09/24/2024 1:13 AM [facility] SPECIFIC GRAVITY 1.025 1.003 - 1.035 09/24/2024 1:13 AM [facility] NITRITE Negative Negative 09/24/2024 1:13 AM [facility] PH,URINE 6.0 5.0 - 8.5 09/24/2024 1:13 AM [facility] LEUKOCYTE ESTERASE Negative Negative 09/24/2024 1:13 AM [facility] PROTEIN Trace(A) Negative 09/24/2024 1:13 AM [facility] KETONES (URINE) Trace(A) Negative 1:13 AM [facility] UROBILINOGEN 4.0 eu/dL(A) 0.2 eu/dL, 1.0 eu/dL 09/24/2024 1:13 AM [facility] BILIRUBIN (URINE) Negative Negative 09/24/2024 1:13 AM [facility] BLOOD/HGB Negative Negative 09/24/2024 1:13 AM [facility] MUCOUS Present(A) None 09/24/2024 1:13 AM [facility] R.B.CELLS 0 0 - 5 09/24/2024 1:13 AM [facility] SQUAMOUS EPITHELIUM 3 0 - 5 09/24/2024 1:13 AM [facility] W.B.CELLS 2 0 - 5 09/24/2024 1:13 AM [facility] GLUCOSE (URINE) Negative Negative, 250 mg/dL, >1000 mg/dL 09/24/2024 1:13 AM [facility] Urine Urine specimen collection, clean catch / Unknown 09/23/2024 11:40 PM EDT 09/23/2024 11:51 PM EDT Madeline Gamboa CAR PAINTER-CN URINE ORDERABLES Final Resu lt [facility] [address] [place] [address], * Chlamydia/GC by PCR Nighat Swab (09/23/2024 11:17 PM EDT) CHLAMYDIA DNA(PCR) Negative Negative 09/25/2024 6:28 AM EDT [facility] Comment:Chlamydia trachomati s not detected by nucleic acid amplification. This does not exclude the possibility of infection because results are dependent on adequate specimen collection. GONORRHOEAE DNA(PCR) Negative Negative 09/25/2024 6:28 AM EDT [facility] Comment:Neisseria gonorrhoea e not detected by nucleic acid amplification. This does not exclude the possibility of infection because results are dependent on adequate specimen collection. Swab Vaginal structure / Unknown 09/23/2024 11:17 PM EDT 09/23/2024 11:27 PM EDT Madeline Gamboa FRANCES MICROBIOLOGY - GENERAL ORDE RABLES Final Result [facility] [address] [place] [address], [place] [phone] * (ABNORMAL) Vaginitis Panel PCR (09/23/2024 11:17 PM EDT) BACT. VAGINOSIS DNA Detected(A) Not Detected 09/24/2024 9:29 PM EDT [facility] Comment:Qualitative results are reported based on detection and quantitation of targeted organism markers which include: Lactobacillus spp. (L. crispatus and L. jensenii), Gardnerella vaginalis, Atopobium vaginae, Bacterial Vaginosis Associated Bacteria-2 (BVAB-2) and Megasphaera-1. SHANEKA SPECIES DNA Not Detected Not Detected 09/24/2024 9:29 PM EDT [facility] Comment:Shaneka species not detected include: C. albicans, C. tropicalis, C. parapsilosis or C. dubliniensis. SHANEKA KRUSEI DNA Not Detected Not Detected 09/24/2024 9:29 PM EDT [facility] Comment:No Shaneka krusei de tected. SHANEKA GLABRATA DNA Not Detected Not Detected 09/24/2024 9:29 PM EDT [facility] Comment:No Shaneka glabrata detected. TRICHOMONAS VAG DNA Not Detected Not Detected 09/24/2024 9:29 PM EDT [facility] Comment: No Trichomonas vaginalis detected. BD [...] ORDE RABLES Final Result Performing Organization Address City/[facility]/ZIP Co de Phone Number [facility] [address] [place] [address], * Urine Culture Urine, Clean Catch Midstream (09/23/2024 4:56 PM EDT) Only the most recent of2 resultswithin the time period is included. CULTURE RESULTS 10-50,000 ORGANISMS/mL NORMAL UROGENITAL ALEX 09/24/2024 3:41 PM EDT [facility] Urine Urine specimen collection, clean catch / Unknown 09/23/2024 4:56 PM EDT 09/23/2024 5:02 PM EDT Narrative [facility] - 09/24/2024 3:41 PM EDT Urine received without preservative - delays in transport may affect results. Interpret with caution and clinical correlation is recommended. Lucius Townsend MD MICROBIOLOGY - GENERAL ORDERABL ES Final Result Performing Organization Address [facility] Co de Phone Number [facility] [address] [place] [address], * RUST COMPREHENSIVE ANATOMIC SURVEY (09/21/2024 11:04 AM EDT) Anatomical Region Laterality Modality OB-BELT POLISHER Ultrasound 09/21/2024 10:3 2 AM EDT Narrative 09/21/2024 11:43 AM EDT NAME: SALTY SANCHEZ : 2000 SEX: F Accession Number: [id number] ORDERING PHYSICIAN: SONJA COLEMAN REFERRING PHYSICIAN: ZHANE BELLA Coding ----- --------- Procedures 67534: Ultrasound, uterus, real time with image documentation, and maternal evaluation plus detailed anatomic examination, transabdominal approach;single or first gestation STAT ----- --------- Patient Location: Inpatient Indication ----- --------- Screening for Anatomic Survey, Previous , Obesity in , Supervision of high risk . History ----- --------- OB History 5. Para 2 [id number] Maternal Assessment ----- --------- Physical Exam Height [...] EFW (oz) 9 oz EFW by: Hadlock ([id number]) Extended Tibia 51.5 mm 30w 5d 47% Rand Zig Zag Spring Machine Operator 4.5 mm CM 4.8 mm 3% Nicolaides [...] Heart / Thorax RVOT view. LVOT view. 0-elfbnz-ahfatpy view. Aortic arch view. Ductal arch view. [...] SANCHEZ : 2000 SEX: F Accession Number: [id number] ORDERING PHYSICIAN: SONJA COLEMAN REFERRING PHYSICIAN: ZHANE BELLA Coding ----- --------- Procedures 29599: Ultrasound, uterus, real time with imagedocumentation, and maternal evaluation plus detailed anatomic examination, transabdominalapproach;single or first gestation STAT ----- --------- Patient Location: Inpatient Indication ----- --------- Screening for Anatomic Survey, Previous , Obesity in ,Supervision of high risk . History ----- --------- OB History 5. Para 2 [id number] Maternal Assessment ----- --------- Physical Exam Height [...] EFW (oz) 9 oz EFW by: Hadlock ([id number]) Extended Tibia 51.5 mm 30w 5d 47% Rand Zig Zag Spring Machine Operator 4.5 mm CM 4.8 mm 3% Nicolaides [...] Heart / Thorax RVOT view. LVOT view. 7-vfhvhf-pifevfh view. Aortic archview. Ductal arch view. Great [...] with thepatient as necessary. Sonja Coleman DO [facility] US ORDERABLES Final Res ult * (ABNORMAL) Valproic acid, depakane (09/19/2024 9:04 PM EDT) Only the most recent of3 resultswithin the time period is included. VALPROIC ACID 31(L) 50 - 100 ug/mL 09/19/2024 9:47 PM EDT [facility] Blood Venous blood / Unknown 09/19/2024 9:04 PM EDT 09/19/2024 9:04 PM EDT Marie Lopez MD LAB BLOOD ORDERABLES Final Resul t [facility] [address] [place] [address], [place] [phone] * Ammonia (09/19/2024 9:04 PM EDT) Only the most recent of3 resultswithin the time period is included. AMMONIA 32 18 - 72 umol/L 09/19/2024 10:34 PM EDT [facility] Blood Venous blood / Unknown 09/19/2024 9:04 PM EDT 09/19/2024 9:04 PM EDT Marie Lopez MD LAB BLOOD ORDERABLES Final Resul t Performing Organization Address [facility] Co de Phone Number [facility] [address] [place] [address], * Syphilis Total (Unknown Syphilis Status) (09/19/2024 2:49 AM EDT) SYPHILIS TOTAL <0.2 <=0.8 AI 09/21/2024 3:30 PM EDT [facility] Blood Venous blood / Unknown 09/19/2024 2:49 AM EDT 09/19/2024 2:49 AM EDT Narrative [facility] - 09/21/2024 3:30 PM EDT NON REACTIVE No serologic evidence of infection to Treponema pallidum. Repeat testing may be considered in patients with suspected acute or primary syphilis in 2 to 4 weeks. Lexus Byrd MD LAB BLOOD ORDERABLES Final Re sult Performing Organization Address City/[facility]/ZIP Co de Phone Number [facility] [address] [place] [address], * (ABNORMAL) CBC auto differential (09/19/2024 2:49 AM EDT) Only the most recent of3 resultswithin the time period is included. WBC 9.2 4 - 11 x10E9/L 09/19/2024 3:48 AM EDT [facility] RBC Count 3.80 3.8 - 5.2 X10E12/L 09/19/2024 3:48 AM EDT [facility] Hemoglobin 10.3(L) 11.7 - 15.5 g/dL 09/19/2024 3:48 AM EDT [facility] Hematocrit 30.4(L) 35 - 47 % 09/19/2024 3:48 AM EDT [facility] MCV 80 80 - 100 fL 09/19/2024 3:48 AM EDT [facility] MCH 27.2 27 - 34 pg 09/19/2024 3:48 AM EDT [facility] MCHC 34.0 32 - 36 g/dL 09/19/2024 3:48 AM EDT [facility] RDW 13.6 11.5 - 15 % 09/19/2024 3:48 AM EDT [facility] Platelet Count 231 150 - 450 X10E9/L 09/19/2024 3:48 AM EDT [facility] MPV 8.4 7 - 12 fL 09/19/2024 3:48 AM EDT [facility] Neutrophils % 74.9 % 09/19/2024 3:48 AM EDT [facility] Lymphocytes % 20.2 % 09/19/2024 3:48 AM EDT [facility] Monocytes % 4.3 % 09/19/2024 3:48 AM EDT [facility] Eosinophils % 0.3 % 09/19/2024 3:48 AM EDT [facility] Basophils % 0.3 % 09/19/2024 3:48 AM EDT [facility] Neutrophils Absolute (A) 6.9(H) 1.5 - 6.6 10*3/uL 09/19/2024 3:48 AM EDT [facility] Lymphocytes Absolute 1.9 1.0 - 3.5 10*3/uL 09/19/2024 3:48 AM EDT [facility] Monocytes Absolute 0.4 0.0 - 0.9 10*3/uL 09/19/2024 3:48 AM EDT [facility] Eosinophils Absolute 0.0 0.0 - 0.4 10*3/uL 09/19/2024 3:48 AM EDT [facility] Basophils Absolute 0.0 0.0 - 0.2 10*3/uL 09/19/2024 3:48 AM EDT [facility] Differential Type AUTOMATED DIFFERENTIAL 09/19/2024 3:48 AM EDT [facility] Blood Venous blood / Unknown 09/19/2024 2:49 AM EDT 09/19/2024 2:50 AM EDT us Lexus Byrd MD LAB BLOOD ORDERABLES Final Re sult [facility] [address] [place] [address], [place] [phone] * (ABNORMAL) Comprehensive metabolic panel (09/19/2024 2:49 AM EDT) Only the most recent of2 resultswithin the time period is included. SODIUM 138 134 - 146 mmol/L 09/19/2024 3:57 AM EDT [facility] POTASSIUM 3.5 3.5 - 5.0 mmol/L 09/19/2024 3:57 AM EDT [facility] CHLORIDE 106 98 - 109 mmol/L 09/19/2024 3:57 AM EDT [facility] CARBON DIOXIDE 25 22 - 32 mmol/L 09/19/2024 3:57 AM EDT [facility] ANION GAP 7 5 - 15 mmol/L 09/19/2024 3:57 AM EDT [facility] BLOOD UREA NITROGEN 5 5 - 23 mg/dL 09/19/2024 3:57 AM EDT [facility] CREATININE 0.45 0.40 - 1.00 mg/dL 09/19/2024 3:57 AM EDT [facility] Comment:METHOD TRACEABLE TO IDMS STANDARD GLUCOSE 96 65 - 99 mg/dL 09/19/2024 3:57 AM EDT [facility] CALCIUM 8.1(L) 8.5 - 10.5 mg/dL 09/19/2024 3:57 AM EDT [facility] TOTAL PROTEIN 5.5(L) 6.0 - 8.0 g/dL 09/19/2024 3:57 AM EDT [facility] ALBUMIN 3.0(L) 3.2 - 5.3 g/dL 09/19/2024 3:57 AM EDT [facility] ALKALINE PHOSPHATASE 121 39 - 130 U/L 09/19/2024 3:57 AM EDT [facility] AST 11 <=41 U/L 09/19/2024 3:57 AM EDT [facility] ALT 5 <=31 U/L 09/19/2024 3:57 AM EDT [facility] BILIRUBIN,TOTAL 0.4 0.3 - 1.2 mg/dL 09/19/2024 3:57 AM EDT [facility] EGFR Non-Race Dependent >90 >=60 ml/min/1.7 3sq.m 09/19/2024 3:57 AM EDT [facility] Comment: Reported eGFR is based on the CKD-EPI 2020 equation that does not use a race coefficient. Blood Venous blood / Unknown 09/19/2024 2:49 AM EDT 09/19/2024 2:49 AM EDT us Lexus Byrd MD LAB BLOOD ORDERABLES Final Re sult [facility] [address] [facility] [address] [place] [address], * (ABNORMAL) POCT Nursing Urine Macroscopic UA (09/18/2024 7:24 PM EDT) Only the most recent of2 resultswithin the time period is included. POC Urine Specific [place] 1.015 1.010, 1.015, 1.020, 1.025 09/18/2024 7:20 PM EDT [facility] POC Urine Leukocyte Esterase Moderate(A) Negative 09/18/2024 7:20 PM EDT [facility] POC Urine Nitrite Negative Negative 09/18/2024 7:20 PM EDT [facility] POC Urine pH 7.0 5.0, 6.0, 6.5, 7.0, 7.5, 8.0, 8.5, 5.5 09/18/2024 7:20 PM EDT [facility] POC Urine Protein Negative Negative 09/18/2024 7:20 PM EDT [facility] POC Urine Glucose Negative Negative 09/18/2024 7:20 PM EDT [facility] POC Urine Ketones 80 mg/dL(A) Negative 09/18/2024 7:20 PM EDT [facility] POC Urine Urobilinogen 0.2 E.U./dL 09/18/2024 7:20 PM EDT [facility] POC Urine Bilirubin Negative Negative 09/18/2024 7:20 PM EDT [facility] POC Urine Blood/HGB Negative Negative 09/18/2024 7:20 PM EDT [facility] Urine 09/18/2024 7:24 PM EDT 09/18/2024 7:20 PM EDT us Saroj Carreon DO POINT OF CARE TEST ORDER DONELL Final Result [facility] [address] [place] [address], * Drug Screen, Urine (09/18/2024 6:52 PM EDT) AMPHETAMINE/METHAMP Negative Negative 09/18 7:21 PM EDT [facility] Comment:AMPH/METH screening cut off = 1000 ng/mL COCAINE METABOLITE Negative Negative 2024 7:21 PM EDT [facility] Comment:Cocaine screening cu t off value = 300 ng/mL ECSTASY Negative Negative 09/18/2024 7:21 PM EDT [facility] Comment:Ecstasy screening cu t off value = 500 ng/mL METHADONE Negative Negative 09/18/2024 7:21 PM EDT [facility] Comment:Methadone screening cut off value = 300 ng/mL. OPIATES Negative Negative 09/18/2024 7:21 PM EDT [facility] Comment: Opiates screening cut off value = 300 ng/mL This test is used for the detection of codeine, hydrocodone (>1000 ng/mL), morphine and hydromorphone (>900 ng/mL) in urine. OXYCODONE Negative Negative 09/18/2024 7:21 PM EDT [facility] Comment: Oxycodone screening cut off value = 300 ng/mL This test is used for the detection of oxycodone and oxymorphone in urine. PHENCYCLIDINE Negative Negative 09/18/2024 7:21 PM EDT [facility] Comment:Phencyclidine screen ing cut off value = 25 ng/mL CANNABINOIDS Negative Negative 09/18/2024 7:21 PM EDT [facility] Comment:Cannabinoids/THC scr eening cut off value = 50 ng/mL Urine Barbiturates Negative Negative 2024 7:21 PM EDT [facility] Comment:Barbiturates screeni ng cut off value = 200 ng/mL BENZODIAZEPINES Negative Negative 7:21 PM EDT [facility] Comment:Benzodiazepines scre ening cut off value = 200 ng/mL Urine Urine specimen collection, clean catch / Unknown Collection / Unknown 09/18/2024 6:52 PM EDT 09/18/2024 7:00 PM EDT us Prima Solutionser DO URINE ORDERABLES Final R esult Performing Organization Address [facility] Co de Phone Number [facility] [address] [place] [address], * Light Blue Top (09/18/2024 4:55 PM EDT) Extra Tube Auto Resulted 09/18/2024 6:01 PM EDT [facility] Blood Venous blood / Unknown 09/18/2024 4:55 PM EDT 09/18/2024 5:00 PM EDT us Prima Solutionser DO LAB BLOOD ORDERABLES Fin al Result Performing Organization Address City/[facility]/ZIP Co de Phone Number [facility] [address] [place] [address], [place] * (ABNORMAL) Iron and TIBC (09/18/2024 4:55 PM EDT) Pathologist [facility] IRON 62 50 - 170 ug/dL 09/18/2024 8:57 PM EDT [facility] TRANSFERRIN 400(H) 168 - 336 mg/dL 09/18/2024 8:57 PM EDT [facility] IRON BINDING 560(H) 250 - 425 ug/dL 09/18/2024 8:57 PM EDT [facility] IRON SATURATION 11(L) 15 - 50 % SATURATION 09/18/2024 8:57 PM EDT [facility] Blood Venous blood / Unknown 09/18/2024 4:55 PM EDT 09/18/2024 5:00 PM EDT [facility] LAB BLOOD ORDERABLES Fin al Result Performing Organization Address [facility]/ZIP Co de Phone Number [facility] [address] [place] [address], [place] [phone] * Ethanol (09/18/2024 4:55 PM EDT) ETHANOL <0.010 <=0.080 g/dL 09/18/2024 5:21 PM EDT [facility] Comment: This report is intended for use in clinical monitoring or management of patients. Blood 09/18/2024 4:55 PM EDT 09/18/2024 5:00 PM EDT [facility] LAB BLOOD ORDERABLES Fin al Result [facility] [address] [place] [address], [place] * (ABNORMAL) Acetaminophen level (09/18/2024 4:55 PM EDT) ACETAMINOPHEN 6.6(L) 10.0 - 30.0 ug/mL 09/18/2024 5:21 PM EDT [facility] Blood 09/18/2024 4:55 PM EDT 09/18/2024 5:00 PM EDT Narrative [facility] - 09/18/2024 5:21 PM EDT Reference ranges are for therapeutic limits. us Tokyo Otaku Modewalder DO LAB BLOOD ORDERABLES Fin al Result Performing Organization Address [facility] Co de Phone Number [address] [place] [address], [place] * Salicylate level (09/18/2024 4:55 PM EDT) SALICYLATE <4.0 2.0 - 25.0 mg/dL 09/18/2024 5:21 PM EDT [facility] Blood 09/18/2024 4:55 PM EDT 09/18/2024 5:00 PM EDT Narrative [facility] - 09/18/2024 5:21 PM EDT Reference ranges are for therapeutic limits. us Prima [employer]er DO LAB BLOOD ORDERABLES Fin al Result Performing Organization Address [facility] Co de Phone Number [address] [place] [address], [place] * ECG 12 lead (09/18/2024 4:43 PM EDT) 09/18/2024 4:43 PM EDT Narrative [facility] - 09/18/2024 9:43 PM EDT us [place] Otaku Modewalder DO ECG ORDERABLES Final Re sult Performing Organization Address City/[facility]/ZIP Co de Phone Number [facility] * Critical [...] post 50g load (09/01/2024 3:45 PM EDT) [facility] GLUCOSE, 1HR POST 50GM LOAD 126 65 - 139 mg/dL 09/01/2024 10:25 PM EDT [facility] Blood Venous blood / Unknown Venipuncture / Unknown 09/01/2024 3:45 PM EDT 09/01/2024 4:30 PM EDT us Zhane Bella DO LAB BLOOD ORDERABLES Final Resu lt [facility] [address] [place] [address], [place] [phone] from Last 3 Months Insurance [employer] [facility] MEDICAID ANTH MEDICAID Advance Directives * Full [...] 7:11 AM 12/23/2022 7:06 PM Care Teams Production Dispatcher Relationship Specialty Start Date End Date No Pcp, [place] [address] PCP - General Family Medicine 09/01/24
--- OUTSIDE RECORDS SUMMARY | 2024-10-30 11:57 | XMS_ITS | Encounter Summary ---
Author Organization [facility] Address [address] [place] [address] Care Team Providers Care Technical Sales Director Name Role Phone Unavailable Primary Care Provider Unavailabl e Reason for Visit * Reason Comments Med Refill Encounter Details Date Type Department Care Team (Late Contact Info) Description 12/15/2023 Refill [facility] OB [address] [place] [address] Osmany Bella, DO [address] [facility] [address] Siddhartha Barrera, [facility]11 Flank pain Social History Tobacco [...] EDT Office Visit [facility] OB [address] [place] [phone] Mya Kaplan PA [address] [place] [address] documented as of this encounter Visit Diagnoses Diagnosis Flank pain Abdominal pain, unspecified site documented in this encounter
--- OUTSIDE RECORDS SUMMARY | 2024-10-30 11:57 | XMS_ITS | Encounter Summary ---
Author Organization [facility] Address [address] [place] [address] Care Team Providers Care Software Verification Engineer Name Role Phone Unavailable Primary Care Provider Unavailabl e Encounter Details Date Type Department Care Team (Late st Contact Info) Description 12/10/2023 Abstract [facility] OB [address] [place] [address] Christie Wiley LPN Social History Tobacco [...] 11/10/2024 2:20 PM EDT Office Visit [facility]OM[facility] [address] [place] [address] Mya Kaplan PA [address] [place] [address] [place], [place] [id number] documented as of this encounter Visit Diagnoses Not on filedocumented in this encounter
--- OUTSIDE RECORDS SUMMARY | 2024-10-30 11:57 | XMS_ITS | Encounter Summary ---
Author Organization [facility] Address [address] [place] [address] Care Team Providers Care Chaser Helper Name Role Phone Unavailable Primary Care Provider Unavailabl e Encounter Details Date Type Department Care Team (Late Contact Info) Description 12/17/2023 Abstract [facility] OB [address] [facility] [place] [phone] Marie Cuellar LPN [address] [place] [id number] Social History Tobacco Use Types Packs/Day Years [...] 11/10/2024 2:20 PM EDT Office Visit [facility] OB [address] [facility] [place] [address] Mya Kaplan PA [address] [facility] [address] [place], [place] [phone] documented as of this encounter Visit Diagnoses Not on filedocumented in this encounter
--- OUTSIDE RECORDS SUMMARY | 2024-10-30 11:57 | XMS_ITS | Encounter Summary ---
Author Organization [facility] Address [address] [place] [address] Care Team Providers Care Dianeticist Name Role Phone Unavailable Primary Care Provider Unavailabl e Encounter Details Date Type Department Care Team (Late st Contact Info) Description 12/15/2023 Clinisync Result Encounter [facility] External Department Unsolicited Zhane Bella DO [address] [facility] [facility] [place] [address] Social History Tobacco Use Types Packs/Day Years [...] EDT Office Visit [facility] OB [address] [address] Mya Kaplan PA [address] [place] [address] documented as of this encounter Procedures Procedure Name Priority Date/Time Associated Diagnosis Comments CT ANGIOGRAM CHEST 12/15/2023 1: 32 PM EDT documented in this encounter Results * CT angiogram chest (12/15/2023 1:32 PM EDT) Anatomical Region Laterality Modality Body, Chest Computed Tomogra phy 12/15/2023 1:32 PM EDT Narrative 12/15/2023 1:35 [place] [address] CT Scan Report Signed Patient: GEORGIE POND MR#: [id number] : 2000 Acct:[id number] Age/Sex: 23 / F ADM Date: Loc: [facility] 258-[address]: Zhane Bella D.O. Ordering Physician: Zhane Bella D.O. Date of Service: 12/15/23 Procedure(s): CT angio chest Accession Number(s): [id number] cc: Physician,Non-Staff M.Lee [place] [address] Patient Name: GEORGIE POND MRN: [id number] date: 2000 Sex: F Assigned Patient Location: [facility] Current Patient Location: [facility] Accession/Order Number: [id number] Exam Date: 12/15/2023 11:40 Report Date: 12/15/2023 [...] Signed By: 12/15/23 1335 DD/ 1332 TD/TT: License Distributor: Procedure Note Radiology, Radiologist, - 12/15/2023 [place] [address] CT Scan Report Signed Patient: GEORGIE POND TMR#: [id number] : 2000Acct:[id number] Age/Sex: 23 / FADM Date: Loc: [facility] 258-[address]: Zhane Bella D.O. Ordering Physician: Zhane Bella D.O. Date of Service: 12/15/23 Procedure(s): CT angio chest Accession Number(s): [id number] cc: Physician,Non-Staff Adriana [place] [address] Patient Name: GEORGIE POND MRN: [id number] date: 2000 Sex: F Assigned Patient Location: [facility] Current Patient Location: [facility] Accession/Order Number: [id number] Exam Date: 12/15/2023 11:40 Report Date: 12/15/2023 [...] M.D. Signed By:12/15/23 1335 DD/ 1332 TD/TT: License Distributor: Zhane Bella DO [facility] CT PROCEDURES Final Result documented in this encounter Visit Diagnoses Not on filedocumented in this encounter
--- OUTSIDE RECORDS SUMMARY | 2024-10-30 11:57 | XMS_ITS | Encounter Summary ---
Author Organization [facility] Address [address] [place] [address] Care Team Providers Care Industrial Sales Engineer Name Role Phone Unavailable Primary Care Provider Unavailabl e Reason for Visit * Reason Comments Med Refill Encounter Details Date Type Department Care Team (Late Contact Info) Description 12/15/2023 Refill [facility] OB [address] [place] [phone] Osmany Bella 102 [address] [place], [facility]11 Nausea Social History Tobacco Use Types [...] Upcoming Encounters Date Type Department Care Team ([facility] Contact Info) Description 11/10/2024 2:20 PM EDT Office Visit [facility] OB [address] [place] [address] Mya Kaplan PA [address] [place] [address] documented as of this encounter Visit Diagnoses Diagnosis Nausea Nausea alone documented in this encounter
--- OUTSIDE RECORDS SUMMARY | 2024-10-30 11:58 | XMS_ITS | Encounter Summary ---
Author Organization [facility] Address [address] [facility] [place] [address] Care Team Providers Care Dolphin Researcher Name Role Phone Unavailable Primary Care Provider Unavailabl e Encounter Details Date Type Department Care Team (Late Contact Info) Description 10/28/2024 Bamboo flowsheet [facility] OB [address] [facility] [address] Osmany Bella DO [address] [facility] [address] [facility] [address] Siddhartha Barrera, [facility]11 Social History Tobacco Use Types Packs/Day Years [...] 11/10/2024 2:20 PM EDT Office Visit [facility] OB [address] [facility] [place] [address] Mya Kaplan PA [address] [place], [place] [address] documented as of this encounter Visit Diagnoses Not on filedocumented in this encounter
--- OUTSIDE RECORDS SUMMARY | 2024-10-30 11:58 | XMS_ITS | Encounter Summary ---
Author Organization [facility] Address [address] [place] [address] Care Team Providers Care Ekg Technician Name Role Phone Unavailable Primary Care Provider Unavailabl e Encounter Details Date Type Department Care Team (Late st Contact Info) Description 10/24/2024 Clinisync Result Encounter [facility] External Department Unsolicited Osmany Bella DO [address] [facility] [place] [address] Social History Tobacco Use Types Packs/Day Years [...] Office Visit [facility] OB [address] [facility] [place] [phone] Mya Kaplan PA [address] [facility] [place] [address] documented as of this encounter Procedures Procedure Name Priority Date/Time Associated Diagnosis Comments [facility] CMP (CMP) (FOR REMOTE [facility] USE) Routine 10/24/2024 2:03 AM EDT ALL CBC WITH AUTO DIFF Routine 10/24/2024 2:03 AM EDT [facility] URINE MICROSCOPIC ONLY Routine 10/24/2024 12:30 AM EDT [facility] UA (CLEAN/CATCH) MEDICAL OFFICE COORDINATOR/MICRO IF IND. Routine 10/24/2024 12:30 AM EDT documented in this encounter Results * (ABNORMAL) [facility] CMP (CMP) (FOR REMOTE [facility] USE) (10/24/2024 2:03 AM EDT) SODIUM 138 136 - 145 mmol/L [facility] POTASSIUM 3.6 3.5 - 5.1 mmol/L [facility] CHLORIDE 104 98 - 107 mmol/L [facility] CARBON DIOXIDE 24.0 21.0 - 32.0 mmol/L [facility] ANION GAP 13.6 [facility] GLUCOSE 87 74 - 106 mg/dL [facility] BLOOD UREA NITROGEN 5.0(L) 7.0 - 18.0 mg/dL [facility] CREATININE 0.40(L) 0.55 - 1.02 mg/dL [facility] EGFR-AF GERMAN >60 >=60 mL/min/1. 73m 2 [facility] EGFR-NON AF GERMAN >60 >=60 mL/min/1. 73m 2 [facility] BUN [...] WITH AUTO DIFF (10/24/2024 2:03 AM EDT) [facility] TB WBC 8.7 4.0 - 11.0 [...] DO [facility] Final Result Performing Organization Address [facility]/[place] Co de Phone Number [facility] * (ABNORMAL) [facility] UA (CLEAN/CATCH) MEDICAL OFFICE COORDINATOR/MICRO IF IND. (10/24/2024 12:30 AM EDT) COLOR [...] DO CL[facility] Final Result Performing Organization Address City/State/[place] Co de Phone Number [facility] documented in this encounter Visit Diagnoses Not on filedocumented in this encounter
--- OUTSIDE RECORDS SUMMARY | 2024-10-30 11:58 | XMS_ITS | Encounter Summary ---
Author Organization [facility] Address [address] [place] [address] Care Team Providers Care Bus Monitor Name Role Phone Unavailable Primary Care Provider Unavailabl e Encounter Details Date Type Department Care Team (Late st Contact Info) Description 10/26/2024 Telephone [facility] OB [address] [place] [phone] Osmany Bella, DO [address] Siddhartha [place], [place] [phone] Social History Tobacco Use Types Packs/Day Years [...] Wiley LPN - 10/26/2024 8:38 AM EDT [facility] pharmacy called and voiced that they [...] be delivered on 11/03/24 via repeat . Software Project Lead was informed. Christie Wiley LPN documented in this encounter Plan of Treatment Upcoming Encounters Date Type Department Care Team (Late st Contact Info) Description 11/10/2024 2:20 PM EDT Office Visit [facility] OB [address] [facility] [place] [address] Mya Kaplan PA [address] [facility] [place] [address] documented as of this encounter Visit Diagnoses Diagnosis Kidney stones Calculus of kidney documented in this encounter
--- OUTSIDE RECORDS SUMMARY | 2024-10-30 11:58 | XMS_ITS | Encounter Summary ---
Author Organization [facility] Address [address] [place] [address] Care Team Providers Care Orientation & Mobility Specialist Name Role Phone Unavailable Primary Care Provider Unavailabl e Encounter Details Date Type Department Care Team (Late Contact Info) Description 10/23/2024 Clinisync Result Encounter N[facility] External Department Unsolicited Zhane Bella DO [address] [facility] [place] [address] Social History Tobacco Use Types Packs/Day Years [...] EDT Office Visit [facility] OB [address] [facility] [place] [phone] Mya Kaplan PA [address] [facility] [place] [address] documented as of this encounter Procedures Procedure Name Priority Date/Time Associated Diagnosis Comments US OB CERVICAL LENGTH 10/23/2024 4:04 PM EDT documented in this encounter Results * US OB CERVICAL LENGTH (10/23/2024 4:04 PM EDT) Anatomical Region Laterality Modality Other 10/23/2024 4:04 PM EDT Narrative 10/23/2024 4:06 [place] [address] Ultrasound Report Signed Patient: GEORGIE POND MR#: [id number] : 2000 Acct:[id number] Age/Sex: 24 / F ADM Date: 10/23/24 Loc: US Attending Dr: Mya Kaplan Ordering Physician: Zhane Bella D.O. Date of Service: 10/23/24 Procedure(s): US OB cervical length Accession Number(s): [id number] cc: Zhane Bella D.O.; Physician,Non-Staff Adriana [place] [address] Patient Name: GEORGIE POND MRN: [id number] date: 2000 Sex: F Assigned Patient Location: US Current Patient Location: Accession/Order Number: [id number] Exam Date: 10/23/2024 16:03 Report Date: 10/23/2024 [...] Pulido M.D. 10/23/2024 4:04 PM Dictation Location: [place] [address] Electronically authenticated by: [id number] Y Date: 10/23/2024 16:04 Dictated By: Maulik Pulido D.O. Signed By: 10/23/24 1606 DD/ 1604 TD/TT: Roof Mechanic: Procedure Note Radiology, Radiologist, MD - 10/23/2024 [place] [address] Ultrasound Report Signed Patient: GEORGIE POND TMR#: [id number] : 2000Acct:[id number] Age/Sex: 24 / FADM Date: 10/23/24 Loc: US Attending Dr: Mya Kaplan Ordering Physician: Zhane Bella D.O. Date of Service: 10/23/24 Procedure(s): US OB cervical length Accession Number(s): [id number] cc: Zhane Bella D.O.; Physician,Non-Staff M.Lee [place] [id number] Patient Name: GEORGIE POND MRN: [id number] date: 2000 Sex: F Assigned Patient Location: US Current Patient Location: Accession/Order Number: [id number] Exam Date: 10/23/2024 16:03 Report Date: 10/23/2024 16:04 At the request of: ZHANE BELLA DO Procedure: US OB cervical length Ultrasound assessment of the uterine cervix. HISTORY: Incompetent cervix. The cervix has a length of 4.0 cm. Cervical os closed. heart hypf523 bpm. Cephalic presentation with longitudinal lie. US/US OB cervical length IMPRESSION: 4 cm cervical length. Impression dictated by: Maulik Pulido M.D. 10/23/2024 4:04 PM Dictation Location: [place] [address] Electronically authenticated by: [id number] Y Date: 6:04 Dictated By: Maulik Pulido D.O. Signed By:10/23/24 1606 DD/ 1604 TD/TT: Roof Mechanic: us Zhane Bella DO [facility] Final Result documented in this encounter Visit Diagnoses Not on filedocumented in this encounter
--- OUTSIDE RECORDS SUMMARY | 2024-10-30 11:58 | XMS_ITS | Encounter Summary ---
Author Organization [facility] Address [address] [place] [address] Care Team Providers Care Fish Hatchery Superintendent Name Role Phone Unavailable Primary Care Provider Unavailabl e Encounter Details Date Type Department Care Team (Late st Contact Info) Description 11/22/2023 Clinisync Result Encounter [facility] External Department Unsolicited Zhane Bella DO [address] [facility] [place] [address] Social History Tobacco Use Types Packs/Day Years [...] EDT Office Visit [facility] BCP OB [address] [facility] [place] [address] Mya Kaplan PA [address] [facility] [place] [address] documented as of this encounter Procedures Procedure Name Priority Date/Time Associated Diagnosis Comments US RENAL BI 11/22/2023 3:40 PM EDT documented in this encounter Results * US RENAL BI (11/22/2023 3:40 PM EDT) Anatomical Region Laterality Modality Other 11/22/2023 3:40 PM EDT Narrative 11/22/2023 3:42 [place] [address] Ultrasound Report Signed Patient: GEORGIE POND MR#: [id number] : 2000 Acct:[id number] Age/Sex: 23 / F ADM Date: Loc: [facility] 251-[address]: Zhane Bella D.O. Ordering Physician: Zhane Bella D.O. Date of Service: 11/22/23 Procedure(s): US renal BI Accession Number(s): [id number] cc: Zhane Bella D.O.; Physician,Non-Staff Adriana [place] [address] Patient Name: GEORGIE POND MRN: [id number] date: 2000 Sex: F Assigned Patient Location: [facility] Current Patient Location: [facility] Accession/Order Number: [id number] Exam Date: 11/22/2023 14:20 Report Date: 11/22/2023 [...] Signed By: 11/22/23 1542 DD/ 1540 TD/TT: Devops Consultant: Procedure Note Radiology, Radiologist, MD - 11/22/2023 [place] [address] Ultrasound Report Signed Patient: GEORGIE POND TMR#: [id number] : 2000Acct:[id number] Age/Sex: 23 / FADM Date: Loc: [facility] 251-[address]: Zhane Bella D.O. Ordering Physician: Zhane Bella D.O. Date of Service: 11/22/23 Procedure(s): US renal BI Accession Number(s): [id number] cc: Zhane Bella D.O.; Physician,Non-Staff Adriana [place] [id number] Patient Name: GEORGIE POND MRN: [id number] date: 2000 Sex: F Assigned Patient Location: [facility] Current Patient Location: [facility] Accession/Order Number: [id number] Exam Date: 11/22/2023 14:20 Report Date: 11/22/2023 [...] M.D. Signed By:11/22/23 1542 DD/ 1540 TD/TT: Devops Consultant: us Zhane Monahano DO [facility] Final Result documented in this encounter Visit Diagnoses Not on filedocumented in this encounter
--- OUTSIDE RECORDS SUMMARY | 2024-10-30 11:58 | XMS_ITS | Encounter Summary ---
Author Organization [facility] tem Address [id number] [address] [place] [address] Care Team Providers Care Flower Stripper Name Role Phone No Pcp, No Pcp Primary Care Provider Unavailabl e Encounter Details Date Type Department Care Team (Late st Contact Info) Description 05/10/2023 Orders Only [facility] - [facility] [address] [facility] [place] [phone] Marilu Mcneal, [employer]SE SUPERVISOR-CN [address] [place] [address] Chronic migraine without aura without status migrainosus, [...] Never 03/26/2021 How often do you attend [facility] or buddhism services? Never 03/26/2021 Do you belong to any clubs o r organizations such as anabaptist groups, unions, fraternal or athletic groups, or [...] Answer Date Recorded Total Score 15 08/03/2021 [facility] [...] things needed for daily living? No 03/26/2021 [place] Depression Scale Answer Date Recorded [place] Depression Scale Total 7 04/05/2023 The thought [...] documented as of this encounter Care Teams Flower Stripper Relationship Specialty Start Date End Date No Pcp, [place] [address] PCP - General Family Medicine 09/01/24 documented as of this encounter
--- OUTSIDE RECORDS SUMMARY | 2024-10-30 11:58 | XMS_ITS | Clinical Summary ---
Author Organization [facility] Healthcare Address [address] [place] [place] [address] Care Team Providers Care Disc Pad Grinder Name Role Phone Unavailable Primary Care Provider Unavailabl e Allergies No known active allergies Medications MV & Min w/FA-DHA ( Gummies) 0.18-25 MG chewable tabletIndicatio ns:Vaginal bleeding affecting early ([facility]) Chew 1 each Daily 30 tablet 11 [...] 21 capsule 10/26/2024 5 Active HYDROcodone-issa taminophen ([place]) 5-325 MG tablet 10/25/2024 Active omeprazole (PriLOSEC) [...] Description 10/28/2024 2:30 PM EDT Routine [facility] [address] [place] [address] Zhane Bella, Gastroesophageal reflux in ([facility]) (Primary Dx); Third trimester ([facility]); 36 weeks gestation of ([facility]); H/O incompetent cervix, currently ([facility]) 10/28/2024 Bamboo flowsheet [facility] [address] [place] [address] Zhane Bella, DO 10/26/2024 Telephone [facility] [address] [place] [address] Zhane Bella, DO 10/26/2024 Clinisync Result [...] Routine [facility] [address] [place] [address] Mya Jacob PA 35 weeks gestation of ([facility]); Third trimester ([facility]) 10/21/2024 Bamboo flowsheet [facility] [address] [place] [address] Mya Jacob PA 10/15/2024 3:30 PM EDT Routine [facility] [address] [place] [address] Mya Jacob PA Third trimester ([facility]); 32 weeks gestation of ([facility]); H/O incompetent cervix, currently ([facility]); Noncompliant patient, third trimester ([facility]) 10/15/2024 Bamboo flowsheet [facility] [address] [place] [address] [place] [address] Mya Jacob PA 10/12/2024 Telephone [facility] [address] [place] [address] [place] [address] Christie Wiley, CHARCOAL KILN BURNER 10/02/2024 Telephone [facility] [address] [place] [address] [place] [address] Christie Wiley, CHARCOAL KILN BURNER 09/21/2024 Telephone [facility] [address] [place] [address] [place] [address] Christie Wiley, CHARCOAL KILN BURNER 2024 Telephone [facility] [address] [place] [address] [place] [address] Zhane Bella, DO 09/02/2024 2:40 PM EDT Routine [facility] [address] [place] [address] Zhane Bella, DO 28 weeks gestation of ([facility]) 09/02/2024 Clinisync Result Encounter [facility] External Department Unsolicited Zhane Bella, DO 09/02/2024 Clinisync Result Encounter [facility] External Department Unsolicited Zhane Bella, DO 09/02/2024 Clinisync Result Encounter [facility] External Department Unsolicited Zhane Bella, DO 09/01/[address] [facility] [address] [place] [address] Christie Wiley, CHARCOAL KILN BURNER 08/28/2024 Results Follow-Up [facility] [address] [place] [address] [place] [id number] Marie Cuellar LPN 08/14/[address] [address] [place] [address] Mayra Thompson MA BV (bacterial vaginosis) 08/14/2024 Telephone [facility] [address] [place] [address] Mayra Thompson MA 08/12/2024 2:50 PM EDT Routine [facility] [address] [place] [address] Zhane Bella DO Well woman exam with routine gynecological exam; Vaginal discharge; STD exposure; Missed menses; , unspecified gestational age ([facility]); Diabetes mellitus screening; Flank pain 08/12/2024 Clinisync Result Encounter [facility] External Department Unsolicited Zhane Bella DO 08/12/2024 Bamboo flowsheet [facility] [address] [place] [address] Zhane Bella DO from Last 3 Months [...] 11/10/2024 2:20 PM EDT Office Visit [facility] [address] [place] [address] Mya Jacob PA [address] [place] [address] [place] [address] Health Maintenance Due Date Last Done Comments Influenza Vaccine (Season Ended) 2025 03/12/2019, 03/13/2007, 02/25/2006 Procedures Procedure Name Priority Date/Time Associated Diagnosis Comments POCT URINALYSIS DIPSTICK Routine 10/28/2024 2:59 PM EDT Third trimester ([facility]) 36 weeks gestation of ([facility]) US OB BPP W NON-STRESS 10/26/2024 8:15 AM EDT [facility] CMP (CMP) (FOR REMOTE CRITICAL ACCESS HOSPITAL USE) Routine 10/24/2024 2:03 AM EDT ALL CBC WITH AUTO DIFF Routine 10/24/2024 2:03 AM EDT [facility] URINE MICROSCOPIC ONLY Routine 10/24/2024 12:30 AM EDT [facility] UA (CLEAN/CATCH) RAILWAY SWITCH OPERATOR/MICRO IF IND. Routine 10/24/2024 12:30 AM EDT US OB CERVICAL LENGTH 10/23/2024 4:04 PM EDT US OB GROWTH 10/23/2024 3:29 PM EDT US OB BPP W NON-STRESS 10/23/2024 3:21 PM EDT POCT URINALYSIS DIPSTICK Routine 10/21/2024 3:08 PM EDT 35 weeks gestation of ([facility]) Third trimester ([facility]) CULTURE, URINE, ROUTINE Routine 10/02/2024 11:44 AM EDT Missed menses POCT URINALYSIS DIPSTICK Routine 09/02/2024 3:18 PM EDT 28 weeks gestation of ([facility]) US OB CERVICAL LENGTH 09/02/2024 11:52 AM EDT US OB PLACENTA 09/02/2024 11:52 AM EDT [facility] URINE MICROSCOPIC ONLY Routine 09/02/2024 11:20 AM EDT TBH UA (CLEAN/CATCH) RAILWAY SWITCH OPERATOR/MICRO IF IND. Routine 09/02/2024 11:20 AM EDT CBC WITH AUTO DIFFERENTIAL Routine 09/01/2024 3:48 PM EDT POCT URINALYSIS DIPSTICK Routine 08/12/2024 4:46 PM EDT Well woman exam with routine gynecological exam RECURRENT VAGINITIS (HTRX) Routine 08/12/2024 4:11 PM EDT IGP,APTIMA HPV,AGE GDLN Routine 08/12/2024 2:58 PM EDT from Last 3 Months Results * (ABNORMAL) POCT urinalysis dipstick manually resulted (10/28/2024 2:59 PM EDT) Only the most recent of4 resultswithin the time period is included. Color, UA Yellow Clarity, UA Clear Glucose, UA Negative Negative - 1999(110) ++++ mg/dL Bilirubin, UA Negative Negative - 4(70) +++ mg/dL Ketones, UA Negative Negative - 160(16) ++++ mg/dL Spec Grav, UA 1.015 1 - 1.03 Blood, UA Negative Negative - 50 Ayden/mcL pH, UA 7.0 5 - 9 Protein, UA Negative Negative - 1999(20) ++++ mg/dL Urobilinogen, UA 1.0 0.2 - [...] AM EDT Narrative 10/26/2024 8:[place] [address] Ultrasound Report Signed Patient: LAURA FOUNTAIN MR#: [id number] : 2000 Acct:[id number] Age/Sex: 24 / F ADM Date: Loc: [facility] 251-[address]: Zhane Bella D.O. Ordering Physician: Zhane Bella D.O. Date of Service: 10/24/24 Procedure(s): US OB BPP w non-stress Accession Number(s): [id number] cc: Zhane Bella D.O.; Physician,Non-Staff M.Lee The [address] [address] Patient Name: LAURA FOUNTAIN MRN: [id number] date: 2000 Sex: F Assigned Patient Location: [facility] Current Patient Location: Accession/Order Number: [id number] Exam Date: 10/26/2024 07:43 Report Date: 10/26/2024 [...] Souza M.D. 10/26/2024 8:15 AM Dictation Location: [place] [address] Electronically authenticated by: [id number] Y Date: 10/26/2024 08:15 Dictated By: Helena De Souza M.D. Signed By: 10/26/24816 DD/ 4 TD/TT: Back Shoe Operator: Procedure Note Radiology, Radiologist, - 10/26/2024 [place] [address] Ultrasound Report Signed Patient: LAURA FOUNTAIN TMR#: [id number] : 2000Acct:[id number] Age/Sex: Date: Loc: [facility] 251-[address]: Zhane Bella D.O. Ordering Physician: Zhane Bella D.O. Date of Service: 10/24/24 Procedure(s): US OB BPP w non-stress Accession Number(s): [id number] cc: Zhane Bella D.O.; Physician,Non-Staff Adriana The [place] [address] Patient Name: LAURA FOUNTAIN MRN: [id number] date: 2000 Sex: F Assigned Patient Location: [facility] Current Patient Location: Accession/Order Number: [id number] Exam Date: 10/26/2024 07:43 Report Date: 10/26/2024 [...] Souza M.D. 10/26/2024 8:15 AM Dictation Location: [place] [address] Electronically authenticated by: [id number] Y Date: 508:15 Dictated By: Helena De Souza M.D. Signed By:10/26/24 0817 DD/ 0815 TD/TT: Back Shoe Operator: us Zhane Jena DO [facility] IMAGING Final Result * (ABNORMAL) [facility] CMP (CMP) (FOR REMOTE CRITICAL ACCESS HOSPITAL USE) (10/24/2024 2:03 AM EDT) SODIUM [...] 0.55 - 1.02 mg/dL TBH TBH EGFR-AF SERBIAN >60 >=60 mL/min/1. 73m 2 TBH TBH EGFR-NON AF SERBIAN >60 >=60 mL/min/1. 73m 2 TBH BUN [...] CLINISYNC - 10/24/2024 2:24 AM EDT us Zhane Jena DO [facility] Final Result [facility] * (ABNORMAL) ALL CBC WITH AUTO DIFF [...] Narrative [facility] - 10/24/2024 2:10 AM EDT Kloudless Jena DO [facility] Final Result Performing Organization Address [facility] Co de Phone Number [facility] TB * (ABNORMAL) TBH URINE MICROSCOPIC ONLY [...] Narrative [facility] - 10/24/2024 1:25 AM EDT Kloudless Jena DO [facility] Final Result Performing Organization Address City/[facility]/ZIP Co de Phone Number [facility] * (ABNORMAL) [facility] UA (CLEAN/CATCH) RAILWAY SWITCH OPERATOR/MICRO IF IND. (10/24/2024 12:30 AM EDT) [...] - 10/24/2024 1:25 AM EDT us Zhane ADAM Final Result Performing Organization Address City/[facility] Co de Phone Number [facility] TB * US OB CERVICAL LENGTH (10/23/2024 4:04 PM EDT) Only the most recent of2 resultswithin the time period is included. Anatomical Region Laterality Modality Other 10/23/2024 4:04 PM EDT Narrative 10/23/2024 4:06 [place] [address] Ultrasound Report Signed Patient: LAURA FOUNTAIN MR#: [id number] : 2000 Acct:[id number] Age/Sex: 24 / F ADM Date: 10/23/24 Loc: US Attending Dr: Mya Jacob Ordering Physician: Zhane Bella D.O. Date of Service: 10/23/24 Procedure(s): US OB cervical length Accession Number(s): [id number] cc: Zhane Bella D.O.; Physician,Non-Staff Adriana The [address] [address] Patient Name: LAURA FOUNTAIN MRN: [id number] date: 2000 Sex: F Assigned Patient Location: Current Patient Location: Accession/Order Number: [id number] Exam Date: 10/23/2024 16:03 Report Date: 10/23/2024 [...] Pulido M.D. 10/23/2024 4:04 PM Dictation Location: [place] [address] Electronically authenticated by: [id number] Date: 10/23/2024 16:04 Dictated By: Maulik Pulido D.O. Signed By: 10/23/24 1606 DD/ 1604 TD/TT: Back Shoe Operator: Procedure Note Radiology, Radiologist, MD - 10/23/2024 [place] [address] Ultrasound Report Signed Patient: LAURA FOUNTAIN TMR#: [id number] : 2000Acct:[id number] Age/Sex: 24 / FADM Date: 10/23/24 Loc: US Attending Dr: Mya Jacob Ordering Physician: Zhane Bella D.O. Date of Service: 10/23/24 Procedure(s): US OB cervical length Accession Number(s): [id number] cc: Zhane Bella D.O.; Physician,Non-Staff Adriana The [address] [address] Patient Name: LAURA FOUNTAIN MRN: [id number] date: 2000 Sex: F Assigned Patient Location: US Current Patient Location: Accession/Order Number: [id number] Exam Date: 10/23/2024 16:03 Report Date: 10/23/2024 16:04 At the request of: ZHANE BELLA DO Procedure: US OB cervical length Ultrasound assessment of the uterine cervix. HISTORY: Incompetent cervix. The cervix has a length of 4.0 cm. Cervical os closed. heart [id number] bpm. Cephalic presentation with longitudinal lie. US/US OB cervical length IMPRESSION: 4 cm cervical length. Impression dictated by: Maulik Pulido M.D. 10/23/2024 4:04 PM Dictation Location: [place] [address] Electronically authenticated by: [id number] Y Date: 6:04 Dictated By: Maulik Pulido D.O. Signed By:10/23/246 DD/ 1604 TD/TT: Back Shoe Operator: us Zhane Bella DO [facility] IMAG[facility] Final Result * US OB GROWTH (10/23/2024 3:29 PM EDT) Anatomical Region Laterality Modality Other 10/23/2024 3:29 PM EDT Narrative 10/23/2024 3:31 PM EDT [address] [address] Ultrasound Report Signed Patient: LAURA FOUNTAIN MR#: [id number] : 2000 Acct:[id number] Age/Sex: 24 / F ADM Date: 10/23/24 Loc: US Attending Dr: Mya Jacob Ordering Physician: Mya Jacob Date of Service: 10/23/24 Procedure(s): US OB growth Accession Number(s): [id number] cc: Mya Jacob; Physician,Non-Staff Adriana [address] [address] Patient Name: LAURA FOUNTAIN MRN: [id number] date: 2000 Sex: F Assigned Patient Location: [facility] Current Patient Location: Accession/Order Number: [id number] Exam Date: 10/23/2024 15:27 Report Date: 10/23/2024 [...] growth. Impression dictated by: Rufus Garcia Jr., Stephanie 10/23/2024 3:29 PM Dictation Location: [place] [address] Electronically authenticated by: [id number] Y Date: 10/23/2024 15:29 Dictated By: Rufus Garcia M.D. Signed By: 10/23/24 1531 DD/ 1529 TD/TT: Back Shoe Operator: Procedure Note Radiology, Radiologist, MD - 10/23/[address] [address] Ultrasound Report Signed Patient: LAURA FOUNTAIN TMR#: [id number] : 2000Acct:[id number] Age/Sex: 24 / FADM Date: 10/23/24 Loc: US Attending Dr: Mya Jacob Ordering Physician: Mya Jacob Date of Service: 10/23/24 Procedure(s): US OB growth Accession Number(s): [id number] cc: Mya Jacob; Physician,Non-Staff Adriana The [address] [address] Patient Name: LAURA FOUNTAIN MRN: [id number] date: 2000 Sex: F Assigned Patient Location: [facility] Current Patient Location: Accession/Order Number: [id number] Exam Date: 10/23/2024 15:27 Report Date: 10/23/2024 [...] Jr., D.O. 10/23/2024 3:29 PM Dictation Location: [place] [address] Electronically authenticated by: [id number] Y Date: 5:29 Dictated By: Rufus Garcia M.D. Signed By:10/23/24 1531 DD/ 1529 TD/TT: Back Shoe Operator: us Mya Jacob PA [facility] Final Result * Urine culture (10/02/2024 11:44 AM EDT) Urine Urine specimen obtained by clean catch procedure / Unknown us Zhane Bella DO LAB MICROBIOLOGY - GENERAL ORDER DONELL Final Result EXTERNAL LAB * US OB PLACENTA (09/02/2024 11:52 AM EDT) Anatomical Region Laterality Modality Other 09/02/2024 11:5 2 AM EDT Narrative 09/02/2024 11:55 AM EDT [address] [address] Ultrasound Report Signed Patient: LAURA FOUNTAIN MR#: [id number] : 2000 Acct:[id number] Age/Sex: 23 / F ADM Date: Loc: [facility] [address]: Zhane Bella D.O. Ordering Physician: Zhane Bella D.O. Date of Service: 09/02/24 Procedure(s): US OB placenta Accession Number(s): [id number] cc: Zhane Bella D.O.; Physician,Non-Staff Adriana The [address] [address] Patient Name: LAURA FOUNTAIN MRN: [facility]:[id number] date: 2000 Sex: F Assigned Patient Location: [facility] Current Patient Location: [facility] Accession/Order Number: [id number] Exam Date: 09/02/2024 11:49 Report Date: 09/02/2024 [...] Jr., D.O. 09/02/2024 11:52 AM Dictation Location: [place] [address] Electronically authenticated by: [id number] Y Date: 09/02/2024 11:52 Dictated By: Rufus Garcia M.D. Signed By: 09/02/24 1155 DD/ 1152 TD/TT: Back Shoe Operator: Procedure Note Radiology, Radiologist, MD - 09/02/2024 [place] [address] Ultrasound Report Signed Patient: LAURA FOUNTAIN TMR#: [id number] : 2000Acct:[id number] Age/Sex: 23 / FADM Date: Loc: [facility] 258-[address]: Zhane Bella D.O. Ordering Physician: Zhane Bella D.O. Date of Service: 09/02/24 Procedure(s): US OB placenta Accession Number(s): [id number] cc: Zhane Bella D.O.; Physician,Non-Staff Adriana [place] [id number] Patient Name: LAURA FOUNTAIN MRN: [facility]:[id number] date: 2000 Sex: F Assigned Patient Location: [facility] Current Patient Location: [facility] Accession/Order Number: [id number] Exam Date: 09/02/2024 11:49 Report Date: 09/02/2024 [...] Jr., D.O. 09/02/2024 11:52 AM Dictation Location: [place] [address] Electronically authenticated by: [id number] Y Date: 1:52 Dictated By: Rufus Garcia M.D. Signed By:09/02/24 1155 DD/ 1152 TD/TT: Back Shoe Operator: us Zhane Bella DO [facility] IMAGING Final [...] TYPE AUTOMATED DIFFERENTIAL [facility] Comment: PERFORMED AT [facility] [address],[place] [address] 09/01/2024 3:48 PM EDT 09/01/2024 9:40 PM EDT us Zhane Jena DO LAB BLOOD ORDERABLES Final Resul t [facility] * (ABNORMAL) RECURRENT VAGINITIS (HTRX) (08/12/2024 4:11 PM EDT) ATOPOBIUM VAGINAE 23.789(A) 19.961 - 24.689 ppm 08/13/2024 6:52 AM EDT [facility] ATOPOBIUM VAGINAE Detected(A) 19.961 - 24.689 ppm 08/13/2024 6:52 AM EDT [facility] BVAB 2,3 (BACTERIAL VAGINOSIS ASSOCIATED BACTERIA 2, 3); MOBILUNCUS SPP 20.226(A) 19.961 - 24.689 ppm 08/13/2024 6:52 AM EDT [facility] BVAB 2,3 (BACTERIAL VAGINOSIS ASSOCIATED BACTERIA 2, 3); MOBILUNCUS SPP Detected(A) 19.961 - 24.689 ppm 08/13/2024 6:52 AM EDT [facility] MIGUEL ALBICANS, PARAPSILOSIS, TROPICALIS 0.000 19.961 - 30.770 ppm 08/13/2024 6:52 AM EDT [facility] MIGUEL ALBICANS, PARAPSILOSIS, TROPICALIS Not Detected 19.961 - 30.770 ppm 08/13/2024 6:52 AM EDT [facility] MIGUEL GLABRATA 0.000 23.000 - 32.138 ppm 08/13/2024 6:52 AM EDT [facility] MIGUEL GLABRATA Not Detected 23.000 - 32.138 ppm 08/13/2024 6:52 AM EDT [facility] MIGUEL KRUSEI 0.000 23.000 - 32.271 ppm 08/13/2024 6:52 AM EDT [facility] MIGUEL KRUSEI Not Detected 23.000 - 32.271 ppm 08/13/2024 6:52 AM EDT [facility] CHLAMYDIA TRACHOMATIS 0.000 23.000 - 31.467 ppm 08/13/2024 6:52 AM EDT [facility] CHLAMYDIA TRACHOMATIS Not Detected 23.000 - 31.467 ppm 08/13/2024 6:52 AM EDT [facility] GARDNERELLA VAGINALIS 26.712(A) 19.961 - 24.689 ppm 08/13/2024 6:52 AM EDT [facility] GARDNERELLA VAGINALIS Detected(A) 19.961 - 24.689 ppm 08/13/2024 6:52 AM EDT [facility] MEGASPHAERA (TYPES 1, 2) 15.626(A) 19.961 - 24.689 ppm 08/13/2024 6:52 AM EDT [facility] MEGASPHAERA (TYPES 1, 2) Detected(A) 19.961 - 24.689 ppm 08/13/2024 6:52 AM EDT [facility] NEISSERIA GONORRHOEAE 0.000 23.000 - 32.117 ppm 08/13/2024 6:52 AM EDT [facility] NEISSERIA GONORRHOEAE Not Detected 23.000 - 32.117 ppm 08/13/2024 6:52 AM EDT [facility] TRICHOMONAS VAGINALIS 0.000 23.000 - 32.119 ppm 08/13/2024 6:52 AM EDT [facility] TRICHOMONAS VAGINALIS Not Detected 23.000 - 32.119 ppm 08/13/2024 6:52 AM EDT [facility] MYCOPLASMA GENITALIUM 0.000 19.961 - 24.689 ppm 08/13/2024 6:52 AM EDT [facility] MYCOPLASMA GENITALIUM Not Detected 19.961 - 24.689 ppm 08/13/2024 6:52 AM EDT [facility] ERMB, C; MEFA 23.273(A) 23.000 - 27.611 ppm 08/13/2024 6:52 AM EDT [facility] ERMB, C; MEFA Detected(A) 23.000 - 27.611 ppm 08/13/2024 6:52 AM EDT [facility] TET B, TET M 27.416(A) 23.000 - 27.778 ppm 08/13/2024 6:52 AM EDT [facility] TET B, TET M Detected(A) 23.000 - 27.778 ppm 08/13/2024 6:52 AM EDT [facility] Tissue 08/12/2024 4:11 PM EDT 08/13/2024 1:36 AM EDT us Zhane Bella DO LAB BLOOD ORDERABLES Final Resul t [facility] [address] [place] [address] * (ABNORMAL) IGP,APTIMA HPV,AGE GDLN (08/12/2024 2:58 PM EDT) AGE GDLN ACOG TESTING Note . [facility] Comment: TESTS RESULT FLAG UNITS REF RANGE LAB Clinician Provided Cytology Information Source.............Cervix No. of containers..01 ThinPrep Vial Age Algo ACOG Neha... FLAG LEGEND: L-Low Normal,H-High Normal,LL-Alert Low,HH-Alert High <-Panic Low,>-Panic High,A-Abnormal,AA-Critical Abnormal Performed at: 01 =G [facility] [address] Rafaela Vega MD, IGP, RFX APTIMA HPV ASCU Note(A) . [facility] Comment: TESTS RESULT FLAG UNITS REF RANGE LAB DIAGNOSIS: [A] 02 EPITHELIAL CELL ABNORMALITY. ATYPICAL SQUAMOUS CELLS OF UNDETERMINED SIGNIFICANCE (ASC-US). Specimen adequacy: 02 Satisfactory for evaluation. Endocervical and/or squamous metaplastic cells (endocervical component) are present. Performed by: 02 Mauri Fredeking, Inserting Press Operator (ASCP) Electronically si... Frances Munoz MD, Pathologist . [...] <-Panic Low,>-Panic High,A-Abnormal,AA-Critical Abnormal Performed at: [address] [address] Rafaela Vega MD, HPV APTIMA Positive( A) Negative TB Comment: This nucleic acid amplification test detects fourteen high- risk HPV types (16,18,31,33,35,39,45,51,52,56,58,59,66,68) without differentiation. Performed at: = - [address] [id number] Disease Intervention Specialist: Rafaela Vega MD, Phone: [phone] Performed at: [address] [id number] Disease Intervention Specialist: Rafaela Vega MD, Phone: [phone] 08/12/2024 2:58 PM EDT 08/12/2024 9:42 PM EDT Narrative [facility] - 08/20/2024 3:07 AM EDT SPATULA-ALONE CERVIX us Zhane Bella DO LAB BLOOD ORDERABLES Final Resul t [facility] from Last 3 Months Insurance [facility] [place]ID [place]
--- OUTSIDE RECORDS SUMMARY | 2024-10-30 11:58 | XMS_ITS | Encounter Summary ---
Author Organization [facility] Address [address] [place] [address] Care Team Providers Care Stuffer Name Role Phone Unavailable Primary Care Provider Unavailabl e Encounter Details Date Type Department Care Team (Late st Contact Info) Description 10/26/2024 Clinisync Result Encounter [facility] External Department Unsolicited Zhane Bella DO [address] [facility] [place] [address] Social History Tobacco Use Types Packs/Day Years [...] OB [address] [facility] [address] Mya Kaplan PA [address] [facility] [place] [address] documented as of this encounter Procedures Procedure Name Priority Date/Time Associated Diagnosis Comments US OB BPP W NON-STRESS 10/26/2024 8:15 AM EDT documented in this encounter Results * US OB BPP W NON-STRESS (10/26/2024 8:15 AM EDT) Anatomical Region Laterality Modality Other 10/26/2024 8:15 AM EDT Narrative 10/26/2024 8:17 [place] [address] Ultrasound Report Signed Patient: GEORGIE POND MR#: [id number] : 2000 Acct:[id number] Age/Sex: 24 / F ADM Date: Loc: [facility] 251-[address]: Zhane Bella D.O. Ordering Physician: Zhane Bella D.O. Date of Service: 10/24/24 Procedure(s): US OB BPP w non-stress Accession Number(s): [id number] cc: Zhane Bella D.O.; Physician,Non-Staff Adriana [place] [id number] Patient Name: GEORGIE POND MRN: [facility]:[id number] date: 2000 Sex: F Assigned Patient Location: [facility] Current Patient Location: Accession/Order Number: [id number] Exam Date: 10/26/2024 07:43 Report Date: 10/26/2024 [...] Souza M.D. 10/26/2024 8:15 AM Dictation Location: [place] [address] Electronically authenticated by: [id number] Y Date: 10/26/2024 08:15 Dictated By: Helena De Souza M.D. Signed By: 10/26/24816 DD/ 4 TD/TT: Buffer Inflated Pad: Procedure Note Radiology, Radiologist, MD - 10/26/2024 [place] [address] Ultrasound Report Signed Patient: GEORGIE POND TMR#: [id number] : 2000Acct:[id number] Age/Sex: Date: Loc: [facility] 251-[address]: Zhane Bella D.O. Ordering Physician: Zhane Bella D.O. Date of Service: 10/24/24 Procedure(s): US OB BPP w non-stress Accession Number(s): [id number] cc: Zhane Bella D.O.; Physician,Non-Staff Adriana The [place] [address] Patient Name: GEORGIE POND MRN: [facility]:[id number] date: 2000 Sex: F Assigned Patient Location: [facility] Current Patient Location: Accession/Order Number: [id number] Exam Date: 10/26/2024 07:43 Report Date: 10/26/2024 [...] Souza M.D. 10/26/2024 8:15 AM Dictation Location: [place] [address] Electronically authenticated by: [id number] Y Date: 508:15 Dictated By: Helena De Souza M.D. Signed By:10/26/2417 DD/ 4 TD/TT: Buffer Inflated Pad: us Zhane Jena DO [facility] Final Result documented in this encounter Visit Diagnoses Not on filedocumented in this encounter
--- OUTSIDE RECORDS SUMMARY | 2024-10-30 11:58 | XMS_ITS | Encounter Summary ---
Author Organization [facility] Address [address] [place] [address] Care Team Providers Care Supply Crib Attendant Name Role Phone Unavailable Primary Care Provider Unavailabl e Encounter Details Date Type Department Care Team (Late Contact Info) Description 11/29/2023 Abstract [facility] OB [address] [facility] [place] [phone] Marie Cuellar LPN [address] [place] [phone] Social History Tobacco Use Types Packs/Day Years [...] 11/10/2024 2:20 PM EDT Office Visit [facility] OB [address] [facility] [place] [address] Mya Kaplan PA [address] [facility] [address] [place], [place] [id number] documented as of this encounter Visit Diagnoses Not on filedocumented in this encounter
--- OUTSIDE RECORDS SUMMARY | 2024-10-30 11:58 | XMS_ITS | Encounter Summary ---
Author Organization [facility] Address [address] [facility] [address] Care Team Providers Care Isotope Hydrologist Name Role Phone Unavailable Primary Care Provider Unavailabl e Encounter Details Date Type Department Care Team (Late Contact Info) Description 10/23/2024 Clinisync Result Encounter [facility] External Department Unsolicited Mya Jacob PA [address] [facility] [address] Social History Tobacco Use Types Packs/Day Years [...] Care Team ([facility] Contact Info) Description 11/10/2024 2:20 PM EDT Office Visit [facility] OB [address] [facility] [place] [address] Mya Jacob PA [address] [facility] [place] [address] documented as of this encounter Procedures Procedure Name Priority Date/Time Associated Diagnosis Comments US OB GROWTH 10/23/2024 3:29 PM EDT documented in this encounter Results * US OB GROWTH (10/23/2024 3:29 PM EDT) Anatomical Region Laterality Modality Other 10/23/2024 3:29 PM EDT Narrative 10/23/2024 3:31 PM EDT The [address] [address] Ultrasound Report Signed Patient: GEORGIE POND MR#: [id number] : 2000 Acct:[id number] Age/Sex: 24 / F ADM Date: 10/23/24 Loc: US Attending Dr: Mya Jacob Ordering Physician: Mya Jacob Date of Service: 10/23/24 Procedure(s): US OB growth Accession Number(s): [id number] cc: Mya Jacob; Physician,Non-Staff M.Lee The [address] [address] Patient Name: GEORGIE POND MRN: [facility]:[id number] date: 2000 Sex: F Assigned Patient Location: [facility] Current Patient Location: Accession/Order Number: [id number] Exam Date: 10/23/2024 15:27 Report Date: 10/23/2024 [...] Jr., D.O. 10/23/2024 3:29 PM Dictation Location: [place] [address] Electronically authenticated by: [id number] Y Date: 10/23/2024 15:29 Dictated By: Rufus Garcia M.D. Signed By: 10/23/24 1531 DD/ 1529 TD/TT: Shipping Support: Procedure Note Radiology, Radiologist, - 10/23/[address] [place] [address] Ultrasound Report Signed Patient: GEORGIE POND TMR#: [id number] : 2000Acct:[id number] Age/Sex: 24 / FADM Date: 10/23/24 Loc: US Attending Dr: Mya Jacob Ordering Physician: Mya Jacob Date of Service: 10/23/24 Procedure(s): US OB growth Accession Number(s): [id number] cc: Mya Jacob; Physician,Non-Staff M.DCynthia [place] [address] Patient Name: GEORGIE POND MRN: [facility]:[id number] date: 2000 Sex: F Assigned Patient Location: [facility] Current Patient Location: Accession/Order Number: [id number] Exam Date: 10/23/2024 15:27 Report Date: 10/23/2024 [...] Jr., D.O. 10/23/2024 3:29 PM Dictation Location: [place] [address] Electronically authenticated by: [id number] Y Date: 5:29 Dictated By: Rufus Garcia M.D. Signed By:10/23/24 1531 DD/ 1529 TD/TT: Shipping Support: us Mya RIOS [facility] Final Result documented in this encounter Visit Diagnoses Not on filedocumented in this encounter
--- OUTSIDE RECORDS SUMMARY | 2024-10-30 11:58 | XMS_ITS | Encounter Summary ---
Author Organization [facility] Address [address] [place] [address] Care Team Providers Care Equip Maint Eng Name Role Phone Unavailable Primary Care Provider Unavailabl e Encounter Details Date Type Department Care Team (Late st Contact Info) Description 11/22/2023 Clinisync Result Encounter [facility] External Department Unsolicited Zhane Bella, DO [address] [facility] [place] [address] Social History Tobacco Use Types Packs/Day Years [...] EDT Office Visit [facility] OB [address] [facility] [place] [address] Mya Kaplan PA [address] [facility] [address] documented as of this encounter Procedures Procedure Name Priority Date/Time Associated Diagnosis Comments US OB PLACENTA 11/22/2023 3:44 PM EDT AMNISURE Routine 11/22/2023 1:36 PM EDT [facility] URINE MICROSCOPIC ONLY Routine 11/22/2023 1:25 PM EDT [facility] UA (CLEAN/CATCH) FINANCE ANALYST/MICRO IF IND. Routine 11/22/2023 1:25 PM EDT documented in this encounter Results * US OB PLACENTA (11/22/2023 3:44 PM EDT) Anatomical Region Laterality Modality Other 11/22/2023 3:44 PM EDT Narrative 11/22/2023 3:47 [place] [address] Ultrasound Report Signed Patient: GEORGIE POND MR#: [id number] : 2000 Acct:[id number] Age/Sex: 23 / F ADM Date: Loc: [facility] [address]: Zhane Bella D.O. Ordering Physician: Zhane Bella D.O. Date of Service: 11/22/23 Procedure(s): US OB placenta Accession Number(s): [id number] cc: Zhane Bella D.O.; Physician,Non-Staff M.D. The [place] [address] Patient Name: GEORGIE POND MRN: [facility]:[id number] date: 2000 Sex: F Assigned Patient Location: [facility] Current Patient Location: [facility] Accession/Order Number: [id number] Exam Date: 11/22/2023 14:20 Report Date: 11/22/2023 [...] Signed By: 11/22/23 1547 DD/ 1544 TD/TT: Home Planning Consultant Salesperson: Procedure Note Radiology, Radiologist, MD - 11/22/2023 [place] [address] Ultrasound Report Signed Patient: GEORGIE POND TMR#: [id number] : 2000Acct:[id number] Age/Sex: Date: Loc: [facility] 251-[address]: hZane Bella D.O. Ordering Physician: Zhane Bella D.O. Date of Service: 11/22/23 Procedure(s): US OB placenta Accession Number(s): [id number] cc: Zhane Bella D.O.; Physician,Non-Staff Adriana The [place] [address] Patient Name: GEORGIE POND MRN: [facility]:[id number] date: 2000 Sex: F Assigned Patient Location: [facility] Current Patient Location: [facility] Accession/Order Number: [id number] Exam Date: 11/22/2023 14:20 Report Date: 11/22/2023 [...] M.D. Signed By:11/22/23 1547 DD/ 1544 TD/TT: Home Planning Consultant Salesperson: us Zhane Jena DO [facility] Final [...] [facility] * (ABNORMAL) [facility] UA (CLEAN/CATCH) FINANCE ANALYST/MICRO IF IND. (11/22/2023 1:25 PM EDT) COLOR [...]
--- OUTSIDE RECORDS SUMMARY | 2024-10-30 11:58 | XMS_ITS | Encounter Summary ---
Author Organization [facility] Address [address] [place] [address] Care Team Providers Care Oil Deliverer Name Role Phone Unavailable Primary Care Provider Unavailabl e Encounter Details Date Type Department Care Team (Late Contact Info) Description 08/28/2024 Results Follow-Up [facility] OB [address] [facility] [place] [address] Marie Cuellar LPN [address] [place] [address] Social History Tobacco Use Types [...] Upcoming Encounters Date Type Department Care Team ([facility] Contact Info) Description 11/10/2024 2:20 PM EDT Office Visit [facility] OB [address] [facility] [place] [address] Mya Kaplan PA [address] [facility] [place] [address] documented as of this encounter Visit Diagnoses Not on filedocumented in this encounter
--- OUTSIDE RECORDS SUMMARY | 2024-10-30 11:58 | XMS_ITS | Encounter Summary ---
Author Organization [facility] Address [address] [place] [address] Care Team Providers Care Real Estate Sales Agent Name Role Phone Unavailable Primary Care Provider Unavailabl e Encounter Details Date Type Department Care Team (Late Contact Info) Description 10/23/2024 Clinisync Result Encounter [facility] External Department Unsolicited Mya Jacob PA [address] [place] [address] [place] [address] Social History Tobacco Use Types Packs/Day Years [...] Upcoming Encounters Date Type Department Care Team ([facility] Contact Info) Description 11/10/2024 2:20 PM EDT Office Visit [facility] OB [address] [place] [address] [place] [address] Mya Jacob PA [address] [place] [address] [place] [address] documented as of this encounter Procedures Procedure Name Priority Date/Time Associated Diagnosis Comments US OB BPP W NON-STRESS 10/23/2024 3:21 PM EDT documented in this encounter Results * US OB BPP W NON-STRESS (10/23/2024 3:21 PM EDT) Anatomical Region Laterality Modality Other 10/23/2024 3:21 PM EDT Narrative 10/23/2024 3:24 [place] [address] Ultrasound Report Signed Patient: GEORGIE POND MR#: [id number] : 2000 Acct:[id number] Age/Sex: 24 / F ADM Date: 10/23/24 Loc: [place] [address]- Attending Dr: Mya Jacob Ordering Physician: Mya Jacob Date of Service: 10/23/24 Procedure(s): US OB BPP w non-stress Accession Number(s): [id number] cc: Mya Jacob; Physician,Non-Staff MJacquelyn [place] [id number] Patient Name: GEORGIE POND MRN: [facility]:[id number] date: 2000 Sex: F Assigned Patient Location: [facility] Current Patient Location: [facility] Accession/Order Number: [id number] Exam Date: 10/23/2024 15:20 Report Date: 10/23/2024 15:21 At the request of: MYA JACOB Procedure: US OB BPP w non-stress Biophysical profile. Reason for exam: Incompetent cervix. COMPARISON: None. TECHNIQUE: Transabdominal imaging of the gravid uterus was obtained. FINDINGS: Civil Engineering Technician reports a BPP of 6 out of 8 with 0 out of 2 for breathing movements. MELLISA measures 20.9 cm. heart rate 145 bpm. US/US OB BPP w non-stress Impression: BPP 6 out of 8. Correlation with NST is recommended. Impression dictated by: Rufus Garcia Jr., D.O. 10/23/2024 3:21 PM Dictation Location: [place] [address] Electronically authenticated by: [id number] Y Date: 10/23/2024 15:21 Dictated By: Rufus Garcia M.D. Signed By: 10/23/24 1524 DD/ 1521 TD/TT: Manager Transportation: Procedure Note Radiology, Radiologist, - 10/23/2024 [place] [address] Ultrasound Report Signed Patient: GEORGIE POND TMR#: [id number] : 2000Acct:[id number] Age/Sex: 24 / FADM Date: 10/23/24 Loc: [facility] 250-[address]: Mya Jacob Ordering Physician: Mya Jacob Date of Service: 10/23/24 Procedure(s): US OB BPP w non-stress Accession Number(s): [id number] cc: Mya Jacob; Physician,Non-Staff M.Lee The [place] [id number] Patient Name: GEORGIE POND MRN: [facility]:[id number] date: 2000 Sex: F Assigned Patient Location: [facility] Current Patient Location: [facility] Accession/Order Number: [id number] Exam Date: 10/23/2024 15:20 Report Date: 10/23/2024 15:21 At the request of: MYA JACOB Procedure: US OB BPP w non-stress Biophysical profile. Reason for exam: Incompetent cervix. COMPARISON: None. TECHNIQUE: Transabdominal imaging of the gravid uterus was obtained. FINDINGS: Civil Engineering Technician reports a BPP of 6 out of 8 with 0 out of 2 forfetal breathing movements. MELLISA measures 20.9 cm. heart rate 145 bpm. US/US OB BPP w non-stress Impression: BPP 6 out of 8. Correlation with NST is recommended. Impression dictated by: Rufus Garcia Jr., D.O. 10/23/2024 3:21 PM Dictation Location: [place] [address] Electronically authenticated by: [id number] Y Date: 5:21 Dictated By: Rufus Garcia M.D. Signed By:10/23/24 1524 DD/ 1521 TD/TT: Manager Transportation: Mya RIOS [facility] Final Result documented in this encounter Visit Diagnoses Not on filedocumented in this encounter
--- OUTSIDE RECORDS SUMMARY | 2024-10-30 11:59 | XMS_ITS | Encounter Summary ---
Author Organization [facility] Address [address] [facility] [place] [address] Care Team Providers Care Almond Blancher Name Role Phone Unavailable Primary Care Provider Unavailabl e Encounter Details Date Type Department Care Team (Late st Contact Info) Description 07/07/2024 Abstract [facility] OB [address] [facility] [place] [address] Osmany Bella DO [address] [facility] [address] [place], [facility]11 Social History Tobacco Use Types Packs/Day [...] 11/10/2024 2:20 PM EDT Office Visit [facility] OB [address] [facility] [place] [address] Mya Kaplan PA [address] [facility] [address] [place], [facility]11 documented as of this encounter Visit Diagnoses Not on filedocumented in this encounter
--- OUTSIDE RECORDS SUMMARY | 2024-10-30 11:59 | XMS_ITS | Encounter Summary ---
Author Organization [employer] Address [facility] [place][id number] [address] [place] [address] Care Team Providers Care Outside Installation Machinist Name Role Phone No Pcp, No Pcp Primary Care Provider Unavailabl e Encounter Details Date Type Department Care Team (Late st Contact Info) Description 05/17/2021 Orders Only [facility] [address] [place] [address] [place] [address] Mona Delvalle CMA Body aches; [...] Answer Date Recorded Total Score 13 03/26/2021 [facility] of Occupat ional Health [...] Negative Negative SUNQUEST NASOPHARYNGEAL 05/11/2021 Loretta Brice APRN-TOOL AND FIXTURE REPAIRER MICROBIOLOGY - GENE RAL ORDERABLES Final Result [...] as of this encounter Care Teams Outside Installation Machinist Relationship Specialty Start Date End Date No Pcp, [place] [address] PCP - General Family Medicine 09/01/24 documented as of this encounter
--- OUTSIDE RECORDS SUMMARY | 2024-10-30 11:59 | XMS_ITS | Encounter Summary ---
Author Organization [facility] [facility] Address [facility] [id number] [address] [place] [address] Care Team Providers Care Package Sorter Name Role Phone No Pcp, No Pcp Primary Care Provider Unavailabl e Encounter Details Date Type Department Care Team (Late st Contact Info) Description 08/03/2021 Telephone [facility] [address] [place] [address] Mona Delvalle CMA Social History [...] any clubs o r organizations such as mu-ism groups, unions, fraternal or athletic groups, or [...] Answer Date Recorded Total Score 15 08/03/2021 [facility] of Occupat ional Health - Occupational [...] documented as of this encounter Care Teams Package Sorter Relationship Specialty Start Date End Date No Pcp, [place] [address] PCP - General Family Medicine 09/01/24 documented as of this encounter
--- OUTSIDE RECORDS SUMMARY | 2024-10-30 11:59 | XMS_ITS | Encounter Summary ---
Author Organization [employer] Address [facility] [place]-[id number] [address] [place] [address] Care Team Providers Care Project Engineering Manager Name Role Phone No Pcp, No Pcp Primary Care Provider Unavailabl e Encounter Details Date Type Department Care Team (Late st Contact Info) Description 08/29/2023 Telephone [facility] [address] [facility] [address] [place] [address] Julia Morgan CMA Social History [...] Answer Date Recorded Total Score 4 08/29/2023 [facility] of Occupat [...] things needed for daily living? No 03/26/2021 Chaplin Depression Scale Answer Date Recorded [place]in Depression Scale Total 7 04/05/2023 The thought [...] documented as of this encounter Care Teams Project Engineering Manager Relationship Specialty Start Date End Date No Pcp[place] [address] PCP - General Family Medicine 09/01/24 documented as of this encounter
--- OUTSIDE RECORDS SUMMARY | 2024-10-30 11:59 | XMS_ITS | Encounter Summary ---
Author Organization [facility] Address [address] [facility] [place] [address] Care Team Providers Care Business Development Assistant Name Role Phone Unavailable Primary Care Provider Unavailabl e Encounter Details Date Type Department Care Team ([facility] Contact Info) Description 12/10/2022 External Result Encounter [facility] [address] [facility] [facility] [place] [address] Osmany Bella DO [address] [place] [address] Social History Tobacco Use Types Packs/Day [...] Upcoming Encounters Date Type Department Care Team ([facility] Contact Info) Description 11/10/2024 2:20 PM EDT Office Visit [facility] OB [address] [place] [address] Mya Kaplan PA [address] [place] [address] documented as of this encounter Procedures [...] Final 12/10/2022 15:09) PATIENT INFO: ID #: [id number] : [birth year] (22 yrs)(F) Name: GEORGIE ROTH Visit Date: 12/10/2022 11:43 ESSIE PERFORMED BY: Attending: Marisel Charles MD Performed By: Pearl Hogue RDMS Referred By: Osmany Frances. Address: [address] [place] [address] [place] [address] Location: [facility] SERVICE(S) PROVIDED: Comprehensive Anatomic Survey [place] [address] INDICATIONS: Screening for anatomic survey Z36.89 Twin [...] document Interventr. Septum: Not well visualized Cardiac Surfside: Appears normal Diaphragm: Not well visualized 3 [...] document Interventr. Septum: Could not document Cardiac Surfside: Appears normal Diaphragm: Could not document 3 [...] Signed Final Report 12/10/2022 15:09 IMPRESSION: 1. [place] chorionic Di amniotic Twin Gestation. 2. Twin [...] Circumvallate placenta visualized. RECOMMENDATIONS: 1. Please see [facility] consultation documentation from today's encounter. 2. Patient is scheduled in two weeks for TTTS protocol. 3. Patient is scheduled in 4 weeks for anatomic surveys, heart ECHOs, and cervical length. 4. Subsequent follow up or other follow up as clinically determined by primary OB provider unless otherwise specified by [facility]. 5. Results forwarded to ordering provider so they can follow up with the patient as necessary. The copy-to physician of this order is OSMANY Goodwin The ordering physician of this order is MARISEL Vázquez Procedure Note Radiology, Radiologist, - 12/10/2022 THIS EXAM WAS PERFORMED AT [facility] OBSTETRICS REPORT (Signed Final 12/10/2022 15:09) PATIENT INFO: ID #: [id number] : [birth year] (22 yrs)(F) Name: GEORGIE ROTH Visit Date: 12/10/2022 11:43 ESSIE PERFORMED BY: Attending: Marisel Charles MD Performed By: Pearl Hogue RDMS Referred By: Osmany Frances. Address: [address] [place] [address] [place] [address] Location: [facility] SERVICE(S) PROVIDED: Comprehensive Anatomic Survey [place] [address] INDICATIONS: Screening for anatomic survey Z36.89 Twin [...] document Interventr. Septum: Not well visualized Cardiac Surfside: Appears normal Diaphragm: Not well visualized 3 [...] document Interventr. Septum: Could not document Cardiac Surfside: Appears normal Diaphragm: Could not document 3 [...] Signed Final Report 12/10/2022 15:09 IMPRESSION: 1. [place] chorionic Di amniotic Twin Gestation. 2. Twin [...] Circumvallate placenta visualized. RECOMMENDATIONS: 1. Please see [facility] consultation documentation from today's encounter. 2. Patient [...]
--- OUTSIDE RECORDS SUMMARY | 2024-10-30 11:59 | XMS_ITS | Encounter Summary ---
Author Organization [employer] Address [facility] [id number] [address] [place] [address] Care Team Providers Care Grout Pump Operator Name Role Phone No Pcp, No Pcp Primary Care Provider Unavailabl e Reason for Visit * Reason Comments Med Refill Encounter Details Date Type Department Care Team (Late st Contact Info) Description 12/14/2023 Refill [facility] [address] [place] [phone] Gwen Sutton, [facility] [address] [facility] [address] [place], [place] [id number] Social History Tobacco Use Types Packs/Day Years [...] Answer Date Recorded Total Score 4 08/29/2023 [facility] of Occupat ional Health - Occupational Stress [...] things needed for daily living? No 03/26/2021 [place] Depression Scale Answer Date Recorded [place] Depression Scale Total 13 09/12/2023 The thought [...] Recorded Do you need help finding a [facility] career center and/or a training program? [...] documented as of this encounter Care Teams Grout Pump Operator Relationship Specialty Start Date End Date No Pcp, [place] [address] PCP - General Family Medicine 09/01/24 documented as of this encounter
--- OUTSIDE RECORDS SUMMARY | 2024-10-30 11:59 | XMS_ITS | Encounter Summary ---
Author Organization [facility] Address [address] [place] [address] Care Team Providers Care Manager Collection Name Role Phone Unavailable Primary Care Provider Unavailabl e Encounter Details Date Type Department Care Team (Late Contact Info) Description 07/07/2024 External Result Encounter [facility] OB [address] [place] [address] Osmany Bella DO [address] [place], [place] [address] Siddhartha Barrera, [facility]11 Social History Tobacco Use Types Packs/Day [...] PM EDT Office Visit [facility] OB [address] [place], [place] [address] [address] Mya Kaplan PA [address] [place], [facility]11 documented as of this encounter Procedures [...] auto differential (09/01/2024 3:48 PM EDT) Pathologist [facility] WHITE BLOOD CELL COUNT, WBC 9.0 4 [...] TYPE AUTOMATED DIFFERENTIAL [facility] Comment: PERFORMED AT [facility] [address],[place] [address] 09/01/2024 3:48 PM EDT 09/01/2024 9:40 PM EDT us Osmany Bella DO LAB BLOOD ORDERABLES Final Resul t [facility] * (ABNORMAL) RECURRENT VAGINITIS (HTRX) (08/12/2024 4:11 PM EDT) Pathologist [facility] ATOPOBIUM VAGINAE 23.789(A) 19.961 - 24.689 ppm 08/13/2024 6:52 AM EDT [facility] ATOPOBIUM VAGINAE Detected(A) 19.961 - 24.689 ppm 08/13/2024 6:52 AM EDT [facility] BVAB 2,3 (BACTERIAL VAGINOSIS ASSOCIATED BACTERIA 2, 3); MOBILUNCUS SPP 20.226(A) 19.961 - 24.689 ppm 08/13/2024 6:52 AM EDT [facility] BVAB 2,3 (BACTERIAL VAGINOSIS ASSOCIATED BACTERIA 2, 3); MOBILUNCUS SPP Detected(A) 19.961 - 24.689 ppm 08/13/2024 6:52 AM EDT [facility] MIGUEL ALBICANS, PARAPSILOSIS, TROPICALIS 0.000 19.961 - 30.770 ppm 08/13/2024 6:52 AM EDT [facility] MIGUEL ALBICANS, PARAPSILOSIS, TROPICALIS Not Detected 19.961 - 30.770 ppm 08/13/2024 6:52 AM EDT [facility] MIGUEL GLABRATA 0.000 23.000 - 32.138 ppm 08/13/2024 6:52 AM EDT [facility] MIGUEL GLABRATA Not Detected 23.000 - 32.138 ppm 08/13/2024 6:52 AM EDT [facility] MIGUEL KRUSEI 0.000 23.000 - 32.271 ppm 08/13/2024 6:52 AM EDT [facility] MIGUEL KRUSEI Not Detected 23.000 - 32.271 ppm 08/13/2024 6:52 AM EDT [facility] CHLAMYDIA TRACHOMATIS 0.000 23.000 - 31.467 ppm 08/13/2024 6:52 AM EDT [facility] CHLAMYDIA TRACHOMATIS Not Detected 23.000 - 31.467 ppm 08/13/2024 6:52 AM EDT [facility] GARDNERELLA VAGINALIS 26.712(A) 19.961 - 24.689 ppm 08/13/2024 6:52 AM EDT [facility] GARDNERELLA VAGINALIS Detected(A) 19.961 - 24.689 ppm 08/13/2024 6:52 AM EDT [facility] MEGASPHAERA (TYPES 1, 2) 15.626(A) 19.961 - 24.689 ppm 08/13/2024 6:52 AM EDT [facility] MEGASPHAERA (TYPES 1, 2) Detected(A) 19.961 - 24.689 ppm 08/13/2024 6:52 AM EDT [facility] NEISSERIA GONORRHOEAE 0.000 23.000 - 32.117 ppm 08/13/2024 6:52 AM EDT [facility] NEISSERIA GONORRHOEAE Not Detected 23.000 - 32.117 ppm 08/13/2024 6:52 AM EDT [facility] TRICHOMONAS VAGINALIS 0.000 23.000 - 32.119 ppm 08/13/2024 6:52 AM EDT [facility] TRICHOMONAS VAGINALIS Not Detected 23.000 - 32.119 ppm 08/13/2024 6:52 AM EDT [facility] MYCOPLASMA GENITALIUM 0.000 19.961 - 24.689 ppm 08/13/2024 6:52 AM EDT [facility] MYCOPLASMA GENITALIUM Not Detected 19.961 - 24.689 ppm 08/13/2024 6:52 AM EDT [facility] ERMB, C; MEFA 23.273(A) 23.000 - 27.611 ppm 08/13/2024 6:52 AM EDT [facility] ERMB, C; MEFA Detected(A) 23.000 - 27.611 ppm 08/13/2024 6:52 AM EDT [facility] TET B, TET M 27.416(A) 23.000 - 27.778 ppm 08/13/2024 6:52 AM EDT [facility] TET B, TET M Detected(A) 23.000 - 27.778 ppm 08/13/2024 6:52 AM EDT [facility] Tissue 08/12/2024 4:11 PM EDT 08/13/2024 1:36 AM EDT us Osmany Bella DO LAB BLOOD ORDERABLES Final Resul t [facility] [address] [place] [address] * AFP SINGLE MARKER SCRN, MATERNAL,SERUM ([facility]) [...] repeat testing Initial testing Physician Phone Number [phone] GENERAL TEST INFORMATION See Note This screening [...] its performance characteristics determined by [facility] in a manner consistent with CLIA requirements. This test has not been cleared or approved by the U.S. Food and Drug Administration. Test Performed by: [facility] [address] [place] [id number] Director Volunteer Services: Gamaliel Au Ph.D.; CLIA# [id number] PERFORMED AT [address] [place] [address] 07/27/2024 3:10 PM EDT 07/27/2024 3:12 PM EDT Osmany Jena DO LAB BLOOD ORDERABLES Final Resul t Performing Organization Address City/[facility]/ZIP Co de Phone Number [facility] * SYPHILIS TOTAL ([facility]) (07/27/2024 3:10 PM EDT) Pathologist [facility] SYPHILIS TOTAL <0.2 0.0 - 0.8 AI [facility] Comment: NON REACTIVE No serologic evidence of infection to Treponema pallidum (syphilis). Repeat testing may be considered in patients with suspected acute or primary syphilis in 2 to 4 weeks. PERFORMED AT [address],[place] [address] 07/27/2024 3:10 PM EDT 07/27/2024 3:12 PM EDT MarginLefto DO LAB BLOOD ORDERABLES Final Resul t Performing Organization Address [facility] Co de Phone Number [facility] * Rubella antibody, IgG (07/27/2024 3:10 PM EDT) [facility] RUBELLA IGG 15 IU/mL [facility] Comment: Interpretation-------- <8 NEGATIVE-considered Not Immune 8-9 EQUIVOCAL-consider retesting with new specimen >9 POSITIVE-considered Immune PERFORMED AT [address],[place] [address] 07/27/2024 3:10 PM EDT 07/27/2024 3:12 PM EDT OsmanyGameleono DO LAB BLOOD ORDERABLES Final Resul t Performing Organization Address City/[facility]/ZIP Co de Phone Number [facility] * Hepatitis C antibody (07/27/2024 3:10 PM EDT) Pathologist [facility] ANTI HCV W/PCR REFLEX Non-Reacti ve Non-Reacti ve [facility] Comment: NEW TEST METHOD NOTE If recent infection suspected, recommend repeat testing (>2 months). Xanrog-bi-qjbgyw ratio is <1.00. PERFORMED AT [address],[place] [address] 07/27/2024 3:10 PM EDT 07/27/2024 3:12 PM EDT Osmany Jena DO LAB BLOOD ORDERABLES Final Resul t [facility] * Hepatitis B surface antigen (07/27/2024 3:10 PM EDT) Pathologist [facility] HEPATITIS B SURG AG Non-Reacti ve Non-Reacti ve [facility] Comment: NEW TEST METHOD PERFORMED AT [address],[place] [address] 07/27/2024 3:10 PM EDT 07/27/2024 3:12 PM EDT MarginLefto DO LAB BLOOD ORDERABLES Final Resul t [...] monitoring or management of patients. PERFORMED AT [address], [place] [address] 07/27/2024 3:10 PM EDT 07/27/2024 3:12 PM EDT us Osmany Jena DO LAB BLOOD ORDERABLES Final Resul t Performing Organization Address City/[facility]/ZIP Co de Phone Number [facility] * TSH ([facility]) (07/27/2024 3:10 PM EDT) TSH 1.68 0.49 - 4.67 uIU/mL [facility] Comment:PERFORMED AT [address],[place] [address] 07/27/2024 3:10 PM EDT 07/27/2024 3:12 PM [...] AVERAGE GLUCOSE 85 mg/dL [facility] Comment:PERFORMED AT [facility] [address],[place] [address] 07/27/2024 3:10 PM EDT 07/27/2024 3:12 PM [...] 0.0 - 0.2 X10E9/L [facility] Comment:PERFORMED AT [facility] [address],[place] [address] 07/27/2024 3:10 PM EDT 07/27/2024 3:12 PM EDT us Osmany Jena DO LAB BLOOD ORDERABLES Final Resul t [facility] * US OB follow up transabdominal approach (07/07/2024 2:55 PM EST) Anatomical Region Laterality Modality Body Ultrasound 07/07/2024 2:55 PM EST Narrative 07/07/2024 2:54 PM EST THIS EXAM WAS PERFORMED AT [facility] HISTORY: Vaginal bleeding in COMPARISON: 05/15/2024 [...] - 07/07/2024 THIS EXAM WAS PERFORMED AT [facility] HISTORY: Vaginal bleeding in COMPARISON: 05/15/2024 [...]
--- OUTSIDE RECORDS SUMMARY | 2024-10-30 11:59 | XMS_ITS | Encounter Summary ---
Author Organization [employer] Address [id number] [address] [place] [address] Care Team Providers Care Food Writer Name Role Phone No Pcp, No Pcp Primary Care Provider Unavailabl e Encounter Details Date Type Department Care Team (Late st Contact Info) Description 09/11/2023 Orders Only [facility] [address] [place] [address] Estefany Hilario LPN Screening for [...] Answer Date Recorded Total Score 4 08/29/2023 [facility] of Occupat ional Health - [...] things needed for daily living? No 03/26/2021 [place] Depression Scale Answer Date Recorded [place] Depression Scale Total 13 09/12/2023 The thought [...] SEE ATTACHED SCANNED REPORT us Reyna Diaz LINUX SYSTEMS ANALYST-CNM LAB BLOOD ORDERABLES Fin al Result MANUALLY [...] documented as of this encounter Care Teams Food Writer Relationship Specialty Start Date End Date No Pcp, [place] [address] PCP - General Family Medicine 09/01/24 documented as of this encounter
--- OUTSIDE RECORDS SUMMARY | 2024-10-30 11:59 | XMS_ITS | Encounter Summary ---
Author Organization [employer] tem Address [facility]-[id number] [address] [place] [address] Care Team Providers Care Theoretical Physics Teacher Name Role Phone No Pcp, No Pcp Primary Care Provider Unavailabl e Encounter Details Date Type Department Care Team (Late st Contact Info) Description 08/03/2021 Documentation [facility] [address] [place] [address] [address] Mona Delvalle CMA Social History [...] any clubs o r organizations such as scientology groups, unions, fraternal or athletic groups, or [...] Answer Date Recorded Total Score 15 08/03/2021 [facility] of Occupat ional Health - Occupational [...] documented as of this encounter Care Teams Theoretical Physics Teacher Relationship Specialty Start Date End Date No Pcp, [place] [address] PCP - General Family Medicine 09/01/24 documented as of this encounter
--- OUTSIDE RECORDS SUMMARY | 2024-10-30 11:59 | XMS_ITS | Encounter Summary ---
Author Organization [employer] tem Address [facility]-[id number] [address] [place] [address] Care Team Providers Care Fountain Jerk Name Role Phone No Pcp, No Pcp Primary Care Provider Unavailabl e Encounter Details Date Type Department Care Team (Late st Contact Info) Description 09/17/2023 Telephone [facility] [address] [place] [address] Tameka Abebe Social History Tobacco [...] Answer Date Recorded Total Score 4 08/29/2023 [facility] of Occupat ional Health - Occupational Stress [...] things needed for daily living? No 03/26/2021 [facility] Depression Scale Answer Date Recorded [facility] Depression Scale Total 13 09/12/2023 The thought [...] Recorded Do you need help finding a [facility] career center and/or a training program? No [...] Tums as needed. She also needs to chart changer to frequent small meals, she should [...] documented as of this encounter Care Teams Fountain Jerk Relationship Specialty Start Date End Date No Pcp, [place] [address] PCP - General Family Medicine 09/01/24 documented as of this encounter
--- OUTSIDE RECORDS SUMMARY | 2024-10-30 11:59 | XMS_ITS | Encounter Summary ---
Author Organization [employer] tem Address [id number] [address] [place] [address] Care Team Providers Care Child & Adolescent Psychiatrist Name Role Phone No Pcp, No Pcp Primary Care Provider Unavailabl e Reason for Visit * Reason Comments Med Refill Encounter Details Date Type Department Care Team (Late st Contact Info) Description 11/12/2020 Refill [facility] [address] [place] [phone] Iona Layne, EVICTION SPECIALIST-CUTTING MACHINE TENDER DECORATIVE [address] [place] [address] Hematemesis without nausea Social History [...] documented as of this encounter Care Teams Child & Adolescent Psychiatrist Relationship Specialty Start Date End Date No Pcp, [place] [address] PCP - General Family Medicine 09/01/24 documented as of this encounter
--- OUTSIDE RECORDS SUMMARY | 2024-10-30 11:59 | XMS_ITS | Encounter Summary ---
Author Organization [employer] Address [facility]-[id number] [address] [place] [address] Care Team Providers Care Educational Administration Teacher Name Role Phone No Pcp, No Pcp Primary Care Provider Unavailabl e Encounter Details Date Type Department Care Team (Late st Contact Info) Description 05/15/2021 Telephone [facility] [address] [place] [address] Mona Delvalle CMA Social History [...] Answer Date Recorded Total Score 13 03/26/2021 [facility] [place] of Occupat ional Health - Occupational Stress [...] EST Can we get her results from [facility] for COVID test I don't see [...] as of this encounter Care Teams Educational Administration Teacher Relationship Specialty Start Date End Date No Pcp, [place] [address] PCP - General Family Medicine 09/01/24 documented as of this encounter
--- OUTSIDE RECORDS SUMMARY | 2024-10-30 11:59 | XMS_ITS | Encounter Summary ---
Author Organization [employer] Address [facility]-[id number] [address] [place] [address] Care Team Providers Care Business Analytics Analyst Name Role Phone No Pcp, No Pcp Primary Care Provider Unavailabl e Reason for Visit * Reason Onset Date Comments Med Refill 09/07/2020 Encounter Details Date Type Department Care Team (Late st Contact Info) Description 09/07/2020 Refill [facility] [address] [place] [address] [place] [address] Cooper Goff CMA Social History [...] as of this encounter Care Teams Business Analytics Analyst Relationship Specialty Start Date End Date No Pcp, [place] [address] PCP - General Family Medicine 09/01/24 documented as of this encounter
--- OUTSIDE RECORDS SUMMARY | 2024-10-30 11:59 | XMS_ITS | Encounter Summary ---
Author Organization [employer] Address [id number] [address] [place] [address] Care Team Providers Care Accountant Tax Name Role Phone No Pcp, No Pcp Primary Care Provider Unavailabl e Encounter Details Date Type Department Care Team (Late st Contact Info) Description 09/09/2023 Orders Only [facility] [address] [place] [address] Estefany Hilario LPN Encounter for [...] Answer Date Recorded Total Score 4 08/29/2023 [facility] of Occupat ional Health - [...] things needed for daily living? No 03/26/2021 [place] Depression Scale Answer Date Recorded [place] Depression Scale Total 13 09/12/2023 The thought [...] SEE ATTACHED SCANNED REPORT us Reyna Diaz TICKET SALES SUPERVISOR-CNM LAB BLOOD ORDERABLES Fin al Result MANUALLY [...] documented as of this encounter Care Teams Accountant Tax Relationship Specialty Start Date End Date No Pcp, [place] [address] PCP - General Family Medicine 09/01/24 documented as of this encounter
--- OUTSIDE RECORDS SUMMARY | 2024-10-30 11:59 | XMS_ITS | Encounter Summary ---
Author Organization [facility] tem Address [facility]-[id number] [address] [place] [address] Care Team Providers Care Rn Intensive Care Unit Name Role Phone No Pcp, No Pcp Primary Care Provider Unavailabl e Encounter Details Date Type Department Care Team (Late st Contact Info) Description 01/09/2023 Orders Only [facility] at [facility] [address] [place] [phone] Ref Prov, [place] [address] Social History Tobacco Use Types Packs/Day Years [...] any clubs o r organizations such as holiness groups, unions, fraternal or athletic groups, or [...] Answer Date Recorded Total Score 15 08/03/2021 [facility] of Occupat ional Health [...] Recorded Do you need help finding a [facility] career [facility] and/or a training program? [...] documented as of this encounter Care Teams Rn Intensive Care Unit Relationship Specialty Start Date End Date No Pcp, No Pcp [place]YL[place] [address] PCP - General Family Medicine 09/01/24 documented as of this encounter
--- OUTSIDE RECORDS SUMMARY | 2024-10-30 11:59 | XMS_ITS | Encounter Summary ---
Author Organization [employer] Address [facility]-[id number] [address] [place] [address] Care Team Providers Care Radio Television Technical Director Name Role Phone No Pcp, No Pcp Primary Care Provider Unavailabl e Encounter Details Date Type Department Care Team (Late st Contact Info) Description 05/10/2021 Telephone [facility] [address] [place] [address] Kristyn Gutierrez CMA Social History [...] any clubs o r organizations such as quaker groups, unions, fraternal or athletic groups, or [...] Answer Date Recorded Total Score 13 03/26/2021 [facility] [place] of Occupat ional Health - Occupational Stress [...] covid test please send order to [facility]. [phone] documented in this encounter Plan of Treatment [...] as of this encounter Care Teams Radio Television Technical Director Relationship Specialty Start Date End Date No Pcp, [place] [address] PCP - General Family Medicine 09/01/24 documented as of this encounter
--- OUTSIDE RECORDS SUMMARY | 2024-10-30 11:59 | XMS_ITS | Encounter Summary ---
Author Organization [employer] Address [facility]-[id number] [address] [place] [address] Care Team Providers Care Chemical Laboratory Technician Name Role Phone No Pcp, No Pcp Primary Care Provider Unavailabl e Encounter Details Date Type Department Care Team (Late st Contact Info) Description 05/23/2021 Telephone [facility] [address] [place] [address] [place] [address] Mona Delvalle CMA Social History [...] Answer Date Recorded Total Score 5 05/25/2021 [facility] [place] of Occupat ional Health - Occupational Stress [...] documented as of this encounter Care Teams Chemical Laboratory Technician Relationship Specialty Start Date End Date No Pcp, No Pcp [place] [address] PCP - General Family Medicine 09/01/24 documented as of this encounter
--- OUTSIDE RECORDS SUMMARY | 2024-10-30 11:59 | XMS_ITS | Encounter Summary ---
Author Organization [facility] Address [address] [facility] [place] [address] Care Team Providers Care Blood And Plasma Laboratory Assistant Name Role Phone Unavailable Primary Care Provider Unavailabl e Encounter Details Date Type Department Care Team (Late Contact Info) Description 11/02/2022 Abstract [facility] [address] [place] [address] Osmany Bella DO [address] [place] [address] Social History Tobacco Use Types Packs/Day [...] 11/10/2024 2:20 PM EDT Office Visit [facility] OB [address] [place] [address] Mya Kaplan PA [address] [place] [address] documented as of this encounter Visit Diagnoses Not on filedocumented in this encounter
--- OUTSIDE RECORDS SUMMARY | 2024-10-30 11:59 | XMS_ITS | Encounter Summary ---
Author Organization [employer] Address [id number] [address] [place] [address] Care Team Providers Care Equine Pharmacology Technician Name Role Phone No Pcp, No Pcp Primary Care Provider Unavailabl e Encounter Details Date Type Department Care Team (Late st Contact Info) Description 09/07/2020 Telephone [facility] [address] [place] [address] [place] [address] Cooper Goff CMA Social History [...] documented as of this encounter Care Teams Equine Pharmacology Technician Relationship Specialty Start Date End Date No Pcp, [place] [address] PCP - General Family Medicine 09/01/24 documented as of this encounter
--- OUTSIDE RECORDS SUMMARY | 2024-10-30 11:59 | XMS_ITS | Encounter Summary ---
Author Organization [facility] Address [address] [facility] [place] [address] Care Team Providers Care Metal Fabricating Shop Helper Name Role Phone Unavailable Primary Care Provider Unavailabl e Encounter Details Date Type Department Care Team ([facility] Contact Info) Description 11/27/2022 Abstract [facility] OB [address] [facility] [place] [address] Mya Kaplan PA [address] [place] [address] [place] [address] Social History Tobacco Use Types [...] Visit [facility] OB [address] [facility] [place] [address] Mya Kaplan PA [address] [place] [address] [place] [address] documented as of this encounter Visit Diagnoses Not on filedocumented in this encounter
--- OUTSIDE RECORDS SUMMARY | 2024-10-30 11:59 | XMS_ITS | Encounter Summary ---
Author Organization [facility] Address [address] [facility] [place] [address] Care Team Providers Care Court Worker Name Role Phone Unavailable Primary Care Provider Unavailabl e Encounter Details Date Type Department Care Team (Late Contact Info) Description 12/14/2022 Abstract [facility] OB [address] [place] [address] Osmany Bella DO [address] [place] [address] [place] [address] Social History Tobacco Use [...] Visit [facility] OB [address] [place] [address] Mya Kaplan PA [address] [place] [address] documented as of this encounter Visit Diagnoses Not on filedocumented in this encounter
--- OUTSIDE RECORDS SUMMARY | 2024-10-30 11:59 | XMS_ITS | Encounter Summary ---
Author Organization [employer] tem Address [facility]-[id number] [address] [place] [address] Care Team Providers Care Compressor Stations Superintendent Name Role Phone No Pcp, No Pcp Primary Care Provider Unavailabl e Encounter Details Date Type Department Care Team (Late st Contact Info) Description 03/06/2021 Telephone [facility] [address] [place] [address] [place] [address] Madeline Tubbs RMA Social History [...] test was ordered and sent over to [facility]. documented in this encounter Plan of [...] documented as of this encounter Care Teams Compressor Stations Superintendent Relationship Specialty Start Date End Date No Pcp, [place] [address] PCP - General Family Medicine 09/01/24 documented as of this encounter
--- OUTSIDE RECORDS SUMMARY | 2024-10-30 11:59 | XMS_ITS | Clinical Summary ---
Author Organization [employer] [facility] Address [address] [place] [address] Care Team Providers Care Sea Shell Gatherer Name Role Phone Unavailable Primary Care Provider [...] to complete this topic Insurance MEDICAID [place] [facility]
--- OUTSIDE RECORDS SUMMARY | 2024-10-30 11:59 | XMS_ITS | Encounter Summary ---
Author Organization [facility] Address [address] [facility] [place] [address] Care Team Providers Care Guest Service Supervisor Name Role Phone Unavailable Primary Care Provider Unavailabl e Encounter Details Date Type Department Care Team (Late Contact Info) Description 10/21/2024 Bamboo flowsheet [facility] OB [address] [place] [address] Mya Kaplan, PA [address] [place] [address] Dr [place], [facility]11 Social History Tobacco Use Types [...] 11/10/2024 2:20 PM EDT Office Visit [facility] OB [address] [place] [address] Mya Kaplan PA [address] [facility] [address] [place], [facility]11 documented as of this encounter Visit Diagnoses Not on filedocumented in this encounter
--- OUTSIDE RECORDS SUMMARY | 2024-10-30 11:59 | XMS_ITS | Encounter Summary ---
Author Organization [employer] Address [id number] [address] [place] [address] Care Team Providers Care Institutional Research Director Name Role Phone No Pcp, No Pcp Primary Care Provider Unavailabl e Encounter Details Date Type Department Care Team (Late st Contact Info) Description 10/21/2023 Telephone [facility] [address] [place] [address] Dania Olsen RMA Social History [...] often do you attend chur ch or quaker services? Never 03/26/2021 Do you belong to [...] Answer Date Recorded Total Score 4 08/29/2023 [facility] [place] of Occupat ional Health - Occupational Stress [...] things needed for daily living? No 03/26/2021 [place] Depression Scale Answer Date Recorded [place] Depression Scale Total 13 09/12/2023 The thought [...] Recorded Do you need help finding a primary children[facility] hospital career center and/or a training program? [...] vision and passed out and is in [facility].As she was talking to me they [...] documented as of this encounter Care Teams Institutional Research Director Relationship Specialty Start Date End Date No Pcp, [place] [address] PCP - General Family Medicine 09/01/24 documented as of this encounter
--- OUTSIDE RECORDS SUMMARY | 2024-10-30 11:59 | XMS_ITS | Encounter Summary ---
Author Organization [employer] Address [id number] [address] [place] [address] Care Team Providers Care Hair Baler Name Role Phone No Pcp, No Pcp Primary Care Provider Unavailabl e Encounter Details Date Type Department Care Team (Late st Contact Info) Description 10/05/2020 Telephone [facility] [address] [place] [address] [place] [address] Cooper Goff CMA Social History [...] documented as of this encounter Care Teams Hair Baler Relationship Specialty Start Date End Date No Pcp, [place] [address] PCP - General Family Medicine 09/01/24 documented as of this encounter
--- OUTSIDE RECORDS SUMMARY | 2024-10-30 11:59 | XMS_ITS | Encounter Summary ---
Author Organization [facility] Address [address] [facility] [place] [address] Care Team Providers Care Trimmer Helper Name Role Phone Unavailable Primary Care Provider Unavailabl e Encounter Details Date Type Department Care Team (Late Contact Info) Description 11/07/2022 Abstract [facility] [address] [facility] [place] [address] Osmany Bella DO [address] [facility] [place] [address] Social History Tobacco Use [...] 11/10/2024 2:20 PM EDT [facility] [address] [facility] [place] [address] Mya Kaplan PA [address] [place] [address] documented as of this encounter Visit Diagnoses Not on filedocumented in this encounter
--- OUTSIDE RECORDS SUMMARY | 2024-10-30 11:59 | XMS_ITS | Encounter Summary ---
Author Organization [facility] Address [address] [facility] [place] [address] Care Team Providers Care Ecommerce Manager Name Role Phone Unavailable Primary Care Provider Unavailabl e Encounter Details Date Type Department Care Team (Late Contact Info) Description 01/01/2023 Abstract [facility] OB [address] [facility] [place] [address] Osmany Bella DO [address] [facility] [place] [address] Social History Tobacco Use Types Packs/Day [...] [facility] OB [address] [facility] [place] [address] Mya Kaplan PA [address] [place] [address] documented as of this encounter Visit Diagnoses Not on filedocumented in this encounter
--- NOTE | 2024-10-30 12:09 | US_ITS ---
[address] [address] Patient Name: LAURA FOUNTAIN MRN: [id number] date: 2000 Sex: F Assigned Patient Location: [facility] Current Patient Location: [facility] Accession/Order Number: [id number] Exam Date: 10/30/2024 13:17 Report Date: 10/30/2024 13:24 At the request of: RENETTA JACOB Procedure: US OB BPP w non-stress Biophysical profile. Reason for exam: Incompetent cervix. COMPARISON: BPP 10/24/2024 TECHNIQUE: Transabdominal imaging of the gravid uterus was obtained. FINDINGS: Final Expense Agent reports a BPP is 8 out of 8. MELLISA measures 27.2 cm. heart rate 147 bpm. US/US OB BPP w non-stress Impression: BPP 8 out of 8. Polyhydramnios Impression dictated by: Rufus Garcia Jr., D.O. 10/30/2024 1:24 PM Dictation Location: [place] [address] Electronically authenticated by: [id number] Y Date: 10/30/2024 13:24
[2024-10-30 12:58] VITALS: BP 104/53; PULSE 81
== END 2024-10-30 13:30 | disposition home or self-care (01) ==
LOC: US 11:55 → FBC 11:57
PROVIDERS: Visit Provider Physician Assistant
DX: O26.893 Other specified pregnancy related conditions, third trimester (principal); O09.293 Supervision of pregnancy with other poor reproductive or obstetric history, third trimester; Z3A.36 36 weeks gestation of pregnancy
CPT/HCPCS: 76818

== ENCOUNTER 2024-11-03 05:27 | Inpatient (IN) | payer MEDICAID, SELFPAY ==
--- OUTSIDE RECORDS SUMMARY | 2023-09-02 13:15 | XMS_ITS ---
Author Organization [facility] vices Address [address] [place], [place] [address] Care Team Providers Care Log Yard Manager Name Role Phone Arlene Ospina Primary Care Provider [phone] Ruth Bess [phone] REASON FOR VISIT Initial psychiatric evaluation Medications [...] Location Date Provider Diagnosis Main [address] [place], [place] [id number] 09/02/2023 Ruth Bess Dietary counseling Z 71.3 and Exercise counseling Z71.82 Assessments Encounter Date Diagnosis (ICD Code) Assessment Notes Treatment Notes Treatment Clinical Notes Section Notes 09/02/2023 Dietary counseling (ICD-10 - Z71.3) 09/02/2023 Exercise counseling (ICD-10 - Z71.82) Plan Of Treatment Next Appt Details Follow Up: 4 Weeks,prn, Reas on: Progress Notes * Chetna PONDonDOB:2000 (24 yo F)Acc No.[id number]:09/02/2023 Patient: Georgie ARAMBULA Provider: DELIA Kebede :2000 A ge:22 Y S ex:Female Date:09/02/2023 Address:[address] [place], [place] [address] Pcp:Arlene Ospina Subjective: * Chief Complaints: * [...] Problems: * Billing Information: * Visit Code: 55957 Psychiatric diagnostic eval with med sv. Modifiers: SA * Procedure Codes: Care Plan Details* * Electronic signature of DELIA Madsen on 11/03/2024 at 05:31 AM EDT Sign off status: Pending * Provider: DELIA Kebede Date: 09/02/2023 Generated for Yarely leon/Arvind/Veda on: 11/03/2024 05:31 AM EDT
--- OUTSIDE RECORDS SUMMARY | 2024-10-21 14:30 | XMS_ITS | Encounter Summary ---
Author Organization [facility] Address [address] [place] [address] Care Team Providers Care Judge'S Clerk Name Role Phone Unavailable Primary Care Provider Unavailabl e Encounter Details Date Type Department Care Team (Late st Contact Info) Description 10/21/2024 2:30 PM EDT Routine [facility] OB [address] [phone] Mya Kaplan PA [address] [place], [facility] 35 weeks gestation of ([facility]); Third trimester ([facility]) Social History Tobacco Use Types Packs/Day Years [...] nursing note reviewed. Exam conducted with a in flight refueling craftsman present. Vitals: There is no height or [...] Christie Wiley LPN on behalf of: BLANCA Gisbon documented in this encounter Plan of Treatment Upcoming Encounters Date Type Department Care Team (Late st Contact Info) Description 11/10/2024 2:20 PM EDT Office Visit [facility] OB [address] [place] [address] Mya Kaplan PA [address] [place] [address] documented as of this encounter Procedures Procedure Name Priority Date/Time Associated Diagnosis Comments POCT URINALYSIS DIPSTICK Routine 10/21/2024 3:08 PM EDT 35 weeks gestation of ([facility]) Third trimester ([facility]) documented in this encounter Results * (ABNORMAL) [...] Visit Diagnoses Diagnosis 35 weeks gestation of ([facility]) Third trimester ([facility]) state, incidental documented in this encounter
--- OUTSIDE RECORDS SUMMARY | 2024-10-28 14:30 | XMS_ITS | Encounter Summary ---
Author Organization [facility] Address [address] [place] [address] Care Team Providers Care Thread Winder Automatic Name Role Phone Unavailable Primary Care Provider Unavailabl e Reason for Visit * Reason Comments Routine Visit Encounter Details Date Type Department Care Team (Latest Contact Info) Description 10/28/2024 2:30 PM EDT Routine [facility] B[facility] OB [address] [place] [phone] Osmany Bella, DO [address] [facility] [place] [address] Gastroesophageal reflux in ([facility]) (Primary Dx); Third trimester ([facility]); 36 weeks gestation of ([facility]); H/O incompetent cervix, currently ([facility]) Social History Tobacco Use Types Packs/Day Years [...] Sign Reading Time Taken Comments Blood Pressure 112/66 10/28/2024 2:55 PM EDT Pulse - - Temperature - - Respiratory Rate - - Oxygen Saturation - - Inhaled Oxygen Concentration - - Weight 80.8 kg (178 lb 1.9 oz) 10/28/2024 2:55 P M EDT Height - - Body Mass Index - - documented in this encounter Plan of Treatment Upcoming Encounters Date Type Department Care Team (Late st Contact Info) Description 11/10/2024 2:20 PM EDT Office Visit [facility] OB [address] [facility] [place] [address] Mya Kaplan PA [address] [facility] [address] Scheduled Orders Name Type Priority Associated Diagnoses Orde r Schedule CULTURE, GROUP B STREP WITH SUSCEPTIBLITY Lab Routine Third trimester ([facility]) Expected: 10/28/2024, Expires: 10/28/2025 documented as of this encounter Procedures Procedure Name Priority Date/Time Associated Diagnosis Comments POCT URINALYSIS DIPSTICK Routine 10/28/2024 2:59 PM EDT Third trimester ([facility]) 36 weeks gestation of ([facility]) documented in this encounter Results * (ABNORMAL) POCT urinalysis dipstick manually resulted (10/28/2024 2:59 PM EDT) Color, UA Yellow Clarity, UA Clear Glucose, UA Negative Negative - 2000(110) ++++ mg/dL Bilirubin, UA Negative Negative - 4(70) +++ mg/dL Ketones, UA Negative Negative - 160(16) ++++ mg/dL Spec Grav, UA 1.015 1 - 1.03 Blood, UA Negative Negative - 50 Ayden/mcL pH, UA 7.0 5 - 9 Protein, UA Negative Negative - 2000(20) ++++ mg/dL Urobilinogen, UA 1.0 0.2 - 12 mg/dL Leukocytes, UA Negative Negative - 500+++ Caleb/mcL Nitrite, UA Negative Negative - Positive Urine 10/28/2024 2:59 PM EDT us Osmany Bella DO POINT OF CARE TEST ENTER/EDIT OR DERABLES Final Result documented in this encounter Visit Diagnoses Diagnosis Gastroesophageal reflux in ([facility])- Primary Third trimester ([facility]) state, incidental 36 weeks gestation of ([facility]) H/O incompetent cervix, currently ([facility]) documented in this encounter
[2024-11-03] VITALS (21 sets, daily range): BP systolic 85–139; BP diastolic 57–90; PULSE 63–87; TEMP 36.2–36.7; O2SAT 96–100
--- OUTSIDE RECORDS SUMMARY | 2024-11-03 05:30 | XMS_ITS | Encounter Summary ---
Author Organization [facility] Address [address] [place] [address] Care Team Providers Care Doubler Helper Name Role Phone Unavailable Primary Care Provider Unavailabl e Encounter Details Date Type Department Care Team (Late st Contact Info) Description 12/15/2023 Clinisync Result Encounter [facility] External Department Unsolicited Zhane Bella DO [address] [facility] [address] [place], [facility]11 Social History Tobacco Use Types [...] EDT Office Visit [facility] [address] [facility] [place] [address] Mya Kaplan PA [address] [facility] [place] [address] documented as of this encounter Procedures Procedure Name Priority Date/Time Associated Diagnosis Comments ECG 12-LEAD 12/15/2023 11:21 AM EDT documented in this encounter Results * ECG 12-LEAD (12/15/2023 11:21 AM EDT) Anatomical Region Laterality Modality Other 12/15/2023 11:2 1 AM EDT Narrative 12/16/2023 8:32 AM EDT [facility] [place] [id number] Electrocardiograph Report Signed Patient: GEORGIE POND MR#: [id number] : 2000 Acct:[id number] Age/Sex: 23 / F ADM Date: Loc: [facility] 258- Attending Dr: Zhane Bella D.O. Ordering Physician: Zhane Bella D.O. Date of Service: 12/15/23 Procedure(s): ECG 12 lead Accession Number(s): [id number] cc: [facility] Test Date: 2023-12-15 Pat Name: GEORGIE POND Department: Room: [facility] Gender: Female Compression Molding Machine Tender: : 2000 Requested By: ZHANE BELLA Order Number: [id number] Reading MD: BEAR RICHARDSON Measurements Intervals Stephan Rate: 80 P: 20 GA: 145 QRS: 32 QRSD: 86 T: 26 QT: 352 QTc: 408 Interpretive Statements SINUS RHYTHM Non-Specific T wave inversion in III WARNING: DATA QUALITY MAY AFFECT INTERPRETATION No previous ECG available for comparison Electronically Signed On 12-16-2023 8:32:05 EDT by BEAR RICHARDSON Dictated By: Bear Richardson M.D. Signed By: 12/16/23 0832 DD/ 1121 TD/TT: Nursery School Attendant: Procedure Note Radiology, Radiologist, MD - 12/16/2023 [facility] [place] [id number] Electrocardiograph Report Signed Patient: GEORGIE POND TMR#: [id number] : 2000Acct:[id number] Age/Sex: 23 / FADM Date: Loc: [facility] 258-[address]: Zhane Bella D.O. Ordering Physician: Zhane Bella D.O. Date of Service: 12/15/23 Procedure(s): ECG 12 lead Accession Number(s): [id number] cc: [facility] Test Date: 2023-12-15 Pat Name: GEORGIE RAKAY Department: Room: [facility] Gender: Female Compression Molding Machine Tender: : 2000 Requested By: ZHANE BELLA Order Number: [id number] Reading MD: BEAR RICHARDSON Measurements Intervals Stephan Rate: 80 P: 20 GA: 145 QRS: 32 QRSD: 86 T: 26 QT: 352 QTc: 408 Interpretive Statements SINUS RHYTHM Non-Specific T wave inversion in III WARNING: DATA QUALITY MAY AFFECT INTERPRETATION No previous ECG available for comparison Electronically Signed On 12-16-2023 8:32:05 EDT by BEAR RICHARDSON Dictated By: Bear Richardson M.D. Signed By:12/16/23 0832 DD/ 1121 TD/TT: Nursery School Attendant: us Zhane Bella DO [facility] Final Result documented in this encounter Visit Diagnoses Not on filedocumented in this encounter
--- OUTSIDE RECORDS SUMMARY | 2024-11-03 05:31 | XMS_ITS | Encounter Summary ---
Author Organization [facility] Address [address] [place] [address] Care Team Providers Care Concert Or Lecture Hall Manager Name Role Phone Unavailable Primary Care Provider Unavailabl e Encounter Details Date Type Department Care Team (Late st Contact Info) Description 11/22/2023 Clinisync Result Encounter [facility] External Department Unsolicited Zhane Bella, DO [address] [facility] [place] [address] Social History Tobacco Use Types Packs/Day Years [...] EDT Office Visit [facility] [address] [facility] [place] [address] Mya Kaplan PA [address] [facility] [place] [address] documented as of this encounter Procedures Procedure Name Priority Date/Time Associated Diagnosis Comments US OB PLACENTA 11/22/2023 3:44 PM EDT AMNISURE Routine 11/22/2023 1:36 PM EDT [facility] URINE MICROSCOPIC ONLY Routine 11/22/2023 1:25 PM EDT [facility] UA (CLEAN/CATCH) FOURDRINIER OPERATOR/MICRO IF IND. Routine 11/22/2023 1:25 PM EDT documented in this encounter Results * US OB PLACENTA (11/22/2023 3:44 PM EDT) Anatomical Region Laterality Modality Other 11/22/2023 3:44 PM EDT Narrative 11/22/2023 3:47 [place] [address] Ultrasound Report Signed Patient: GEORGIE POND MR#: [id number] : 2000 Acct:[id number] Age/Sex: 23 / F ADM Date: Loc: [facility] 251-[address]: Zhane Bella D.O. Ordering Physician: Zhane Bella D.O. Date of Service: 11/22/23 Procedure(s): US OB placenta Accession Number(s): [id number] cc: Zhane Bella D.O.; Physician,Non-Staff M.D. [facility] [place] [address] Patient Name: GEORGIE POND MRN: [id number] date: 2000 Sex: F Assigned Patient Location: [facility] Current Patient Location: [facility] Accession/Order Number: [id number] Exam Date: 11/22/2023 14:20 Report Date: 11/22/2023 [...] Signed By: 11/22/23 1547 DD/ 1544 TD/TT: Blue Crabber: Procedure Note Radiology, Radiologist, MD - 11/22/2023 [place] [address] Ultrasound Report Signed Patient: GEORGIE POND TMR#: [id number] : 2000Acct:[id number] Age/Sex: Date: Loc: [facility] 251-[address]: Zhane Bella D.O. Ordering Physician: Zhane Bella D.O. Date of Service: 11/22/23 Procedure(s): US OB placenta Accession Number(s): [id number] cc: Zhane Bella D.O.; Physician,Non-Staff Adriana [facility] [place] [address] Patient Name: GEORGIE POND MRN: [id number] date: 2000 Sex: F Assigned Patient Location: [facility] Current Patient Location: [facility] Accession/Order Number: [id number] Exam Date: 11/22/2023 14:20 Report Date: 11/22/2023 [...] M.D. Signed By:11/22/23 1547 DD/ 1544 TD/TT: Blue Crabber: us Zhane Jena DO [facility] Final Result * AMNISURE (11/22/2023 1:36 PM EDT) Pathologist [facility] TBH AMNISURE NEGATIVE NEGATIVE [facility] 11/22/2023 1:36 PM EDT 11/22/2023 1:47 PM EDT Narrative [facility] - 11/22/2023 2:06 PM EDT Zhane Jena DO LAB BLOOD ORDERABLES Final Resul t [facility] * (ABNORMAL) [facility] URINE MICROSCOPIC ONLY (11/22/2023 1:25 PM EDT) Pathologist [facility] TB WBC >100(A) NONE SEEN #/HPF TB[facility] [...] [facility] * (ABNORMAL) [facility] UA (CLEAN/CATCH) FOURDRINIER OPERATOR/MICRO IF IND. (11/22/2023 1:25 PM EDT) [...]
--- OUTSIDE RECORDS SUMMARY | 2024-11-03 05:31 | XMS_ITS | Encounter Summary ---
Author Organization [facility] Address [address] [place] [address] Care Team Providers Care Employment Counselor Name Role Phone Unavailable Primary Care Provider Unavailabl e Encounter Details Date Type Department Care Team (Late st Contact Info) Description 10/23/2024 Clinisync Result Encounter [facility] External Department Unsolicited Zhane Bella DO [address] [facility] [place] [address] Social History Tobacco Use Types Packs/Day Years [...] EDT Office Visit [facility] [address] [facility] [place] [address] Mya Kaplan PA [address] [facility] [place] [address] documented as of this encounter Procedures Procedure Name Priority Date/Time Associated Diagnosis Comments US OB CERVICAL LENGTH 10/23/2024 4:04 PM EDT documented in this encounter Results * US OB CERVICAL LENGTH (10/23/2024 4:04 PM EDT) Anatomical Region Laterality Modality Other 10/23/2024 4:04 PM EDT Narrative 10/23/2024 4:06 [place] [address] Ultrasound Report Signed Patient: GEORGIE POND MR#: [id number] : 2000 Acct:[id number] Age/Sex: 24 / F ADM Date: 10/23/24 Loc: US Attending Dr: Mya Kaplan Ordering Physician: Zhane Bella D.O. Date of Service: 10/23/24 Procedure(s): US OB cervical length Accession Number(s): [id number] cc: Zhane Bella D.O.; Physician,Non-Staff Adriana [facility] [place] [address] Patient Name: GEORGIE POND MRN: [id number] date: 2000 Sex: F Assigned Patient Location: US Current Patient Location: Accession/Order Number: [id number] Exam Date: 10/23/2024 16:03 Report Date: 10/23/2024 [...] Pulido M.D. 10/23/2024 4:04 PM Dictation Location: [place] [address] Electronically authenticated by: [id number] Y Date: 10/23/2024 16:04 Dictated By: Maulik Pulido D.O. Signed By: 10/23/24 1606 DD/ 1604 TD/TT: Cut Roll Machine Operator: Procedure Note Radiology, Radiologist, MD - 10/23/2024 [place] [address] Ultrasound Report Signed Patient: EGORGIE POND TMR#: [id number] : 2000Acct:[id number] Age/Sex: 24 / FADM Date: 10/23/24 Loc: US Attending Dr: Mya Kaplan Ordering Physician: Zhane Bella D.O. Date of Service: 10/23/24 Procedure(s): US OB cervical length Accession Number(s): [id number] cc: Zhane Bella D.O.; Physician,Non-Staff M.[place] [id number] Patient Name: GEORGIE POND MRN: [id number] date: 2000 Sex: F Assigned Patient Location: US Current Patient Location: Accession/Order Number: [id number] Exam Date: 10/23/2024 16:03 Report Date: 10/23/2024 16:04 At the request of: ZHANE BELLA DO Procedure: US OB cervical length Ultrasound assessment of the uterine cervix. HISTORY: Incompetent cervix. The cervix has a length of 4.0 cm. Cervical os closed. heart [id number] bpm. Cephalic presentation with longitudinal lie. US/US OB cervical length IMPRESSION: 4 cm cervical length. Impression dictated by: Maulik Pulido M.D. 10/23/2024 4:04 PM Dictation Location: [place] [address] Electronically authenticated by: [id number] Y Date: 6:04 Dictated By: Maulik Pulido D.O. Signed By:10/23/24 1606 DD/ 1604 TD/TT: Cut Roll Machine Operator: us Zhane Bella DO [facility] Final Result documented in this encounter Visit Diagnoses Not on filedocumented in this encounter
--- OUTSIDE RECORDS SUMMARY | 2024-11-03 05:31 | XMS_ITS | Encounter Summary ---
Author Organization [facility] Address [address] [place] [address] Care Team Providers Care Industrial Machine System Technician Name Role Phone Unavailable Primary Care Provider Unavailabl e Encounter Details Date Type Department Care Team (Late Contact Info) Description 10/23/2024 Clinisync Result Encounter [facility] External Department Unsolicited Mya Jacob PA [address] [place] [address] [place] [address] Social History Tobacco Use Types Packs/Day Years [...] PM EDT Office Visit [facility] [address] [place] [address] [place] [address] Mya Jacob PA [address] [place] [address] [place] [address] documented as of this encounter Procedures Procedure Name Priority Date/Time Associated Diagnosis Comments US OB BPP W NON-STRESS 10/23/2024 3:21 PM EDT documented in this encounter Results * US OB BPP W NON-STRESS (10/23/2024 3:21 PM EDT) Anatomical Region Laterality Modality Other 10/23/2024 3:21 PM EDT Narrative 10/23/2024 3:24 [place] [address] Ultrasound Report Signed Patient: GEORGIE POND MR#: [id number] : 2000 Acct:[id number] Age/Sex: 24 / F ADM Date: 10/23/24 Loc: [place] [address]- Attending Dr: Mya Jacob Ordering Physician: Mya Jacob Date of Service: 10/23/24 Procedure(s): US OB BPP w non-stress Accession Number(s): [id number] cc: Mya Jacob; Physician,Non-Staff [place] [id number] Patient Name: GEORGIE POND MRN: [id number] date: 2000 Sex: F Assigned Patient Location: [facility] Current Patient Location: [facility] Accession/Order Number: [id number] Exam Date: 10/23/2024 15:20 Report Date: 10/23/2024 15:21 At the request of: MYA JACOB Procedure: US OB BPP w non-stress Biophysical profile. Reason for exam: Incompetent cervix. COMPARISON: None. TECHNIQUE: Transabdominal imaging of the gravid uterus was obtained. FINDINGS: Dressmaker Or Tailor reports a BPP of 6 out of 8 with 0 out of 2 for breathing movements. MELLISA measures 20.9 cm. heart rate 145 bpm. US/US OB BPP w non-stress Impression: BPP 6 out of 8. Correlation with NST is recommended. Impression dictated by: Rufus Garcia Jr., D.O. 10/23/2024 3:21 PM Dictation Location: [place] [address] Electronically authenticated by: [id number] Y Date: 10/23/2024 15:21 Dictated By: Rufus Garcia M.D. Signed By: 10/23/24 1524 DD/ 1521 TD/TT: Dredge Pump Operator: Procedure Note Radiology, Radiologist, - 10/23/2024 [place] [address] Ultrasound Report Signed Patient: GEORGIE POND TMR#: [id number] : 2000Acct:[id number] Age/Sex: 24 / FADM Date: 10/23/24 Loc: [facility] 250-[address]: Mya Jacob Ordering Physician: Mya Jacob Date of Service: 10/23/24 Procedure(s): US OB BPP w non-stress Accession Number(s): [id number] cc: Mya Jacob; Physician,Non-Staff M.Lee [facility] [place] [id number] Patient Name: GEORGIE POND MRN: [id number] date: 2000 Sex: F Assigned Patient Location: [facility] Current Patient Location: [facility] Accession/Order Number: [id number] Exam Date: 10/23/2024 15:20 Report Date: 10/23/2024 15:21 At the request of: MYA JACOB Procedure: US OB BPP w non-stress Biophysical profile. Reason for exam: Incompetent cervix. COMPARISON: None. TECHNIQUE: Transabdominal imaging of the gravid uterus was obtained. FINDINGS: Dressmaker Or Tailor reports a BPP of 6 out of 8 with 0 out of 2 forfetal breathing movements. MELLISA measures 20.9 cm. heart rate 145 bpm. US/US OB BPP w non-stress Impression: BPP 6 out of 8. Correlation with NST is recommended. Impression dictated by: Rufus Garcia Jr., D.O. 10/23/2024 3:21 PM Dictation Location: [place] [address] Electronically authenticated by: [id number] Y Date: 5:21 Dictated By: Rufus Garcia M.D. Signed By:10/23/24 1524 DD/ 1521 TD/TT: Dredge Pump Operator: Mya RIOS [facility] Final Result documented in this encounter Visit Diagnoses Not on filedocumented in this encounter
--- OUTSIDE RECORDS SUMMARY | 2024-11-03 05:31 | XMS_ITS | Encounter Summary ---
Author Organization [facility] Address [address] [facility] [place] [address] Care Team Providers Care Bread Room Hand Name Role Phone Unavailable Primary Care Provider Unavailabl e Encounter Details Date Type Department Care Team (Late Contact Info) Description 10/28/2024 Bamboo flowsheet [facility] OB [address] [facility] [place] [address] Osmany Bella DO [address] [facility] [address] [place], [facility] Social History Tobacco Use Types [...] 11/10/2024 2:20 PM EDT Office Visit [facility] OB [address] [facility] [place] [address] Mya Kaplan PA [address] [place], [place] [address] documented as of this encounter Visit Diagnoses Not on filedocumented in this encounter
--- OUTSIDE RECORDS SUMMARY | 2024-11-03 05:31 | XMS_ITS | Encounter Summary ---
Author Organization [facility] Address [address] [place] [address] Care Team Providers Care Library Technology Instructor Name Role Phone Unavailable Primary Care Provider Unavailabl e Encounter Details Date Type Department Care Team (Late Contact Info) Description 11/29/2023 Abstract [facility] OB [address] [facility] [place] [address] Marie Cuellar LPN [address] [place] [id number] Social History Tobacco Use Types Packs/Day Years [...] 11/10/2024 2:20 PM EDT Office Visit [facility] OB [address] [place] [address] Mya Kaplan PA [address] [facility] [address] [place], [place] [address] documented as of this encounter Visit Diagnoses Not on filedocumented in this encounter
--- OUTSIDE RECORDS SUMMARY | 2024-11-03 05:31 | XMS_ITS | Clinical Summary ---
Author Organization [facility] Healthcare Address [address] [place] [address] Care Team Providers Care Conduit Reamer Operator Name Role Phone Unavailable Primary Care Provider Unavailabl e Allergies No known active allergies Medications MV & Min w/FA-DHA ( Gummies) 0.18-25 MG chewable tabletIndicatio ns:Vaginal bleeding affecting early ([facility]) Chew 1 each Daily 30 tablet 11 06/02/2024 Active Vit-Fe Fumarate-FA ( 19) chewable tablet Chew 1 tablet Daily 10/06/2024 Active HYDROcodone-issa taminophen ([place]) 5-325 MG tablet 10/25/2024 Active omeprazole (PriLOSEC) [address] capsuleIndicati ons:Gastroesoph ageal Reflux Disease,Heartbu rn Take 1 capsule (20 mg) by mouth in the morning. Take before meals. Do not crush or chew. 30 capsule 3 10/28/2024 11/28/19 25 Active cephalexin (Keflex) 500 MG capsuleIndicati ons:Kidney stones Take 1 capsule (500 mg) by mouth in the morning and 1 capsule (500 mg) in the evening and 1 capsule (500 mg) before bedtime. Do all this for 7 days. 21 capsule 10/26/2024 11/03/19 25 Active Problems Problem Noted Date Diagnosed [...] Encounters Date Type Department Care Team Description 10/30/2024 Clinisync Result Encounter [facility] External Department Unsolicited Mya Jacob PA 10/28/2024 2:30 PM EDT Routine [facility] [address] [place] [address] Zhane Bella, DO Gastroesophageal reflux in ([facility]) (Primary Dx); Third trimester ([facility]); 36 weeks gestation of ([facility]); H/O incompetent cervix, currently ([facility]) 10/28/2024 Bamboo flowsheet [facility] [address] [place] [address] Zhane Bella, 10/26/2024 Telephone [facility] [address] [place] [address] Zhane Bella, DO 10/26/2024 Clinisync Result [...] PA 10/21/2024 2:30 PM EDT Routine [facility] [address] [place] [address] Mya Jacob PA 35 weeks gestation of ([facility]); Third trimester ([facility]) 10/21/2024 Bamboo flowsheet [facility] [address] [place] [address] Mya Jacob PA 10/15/2024 3:30 PM EDT Routine [facility] [address] [place] [address] Mya Jacob PA Third trimester ([facility]); 32 weeks gestation of ([facility]); H/O incompetent cervix, currently ([facility]); Noncompliant patient, third trimester ([facility]) 10/15/2024 Bamboo flowsheet [facility] [address] [place] [address] Mya Jacob PA 10/12/2024 Telephone [facility] [address] [place] [address] [place] [address] Christie Wiley, FINISHED GOODS STOCK CLERK 10/02/2024 Telephone [facility] [address] [place] [address] [place] [address] Christie Wiley, FINISHED GOODS STOCK CLERK 09/21/2024 Telephone [facility] [address] [place] [address] [place] [address] Christie Wiley, FINISHED GOODS STOCK CLERK 2024 Telephone [facility] [address] [place] [address] [place] [address] Zhane Bella, DO 09/02/2024 2:40 PM EDT Routine [facility] [address] [place] [address] [place] [address] Zhane Bella, DO 28 weeks gestation of ([facility]) 09/02/2024 Clinisync Result Encounter [facility] External Department Unsolicited Zhane Bella, DO 09/02/2024 Clinisync Result Encounter [facility] External Department Unsolicited Zhane Bella, DO 09/02/2024 Clinisync Result Encounter [facility] External Department Unsolicited Zhane Bella, DO 09/01/2024 Telephone [facility] [address] [place] [address] [place] [address] Christie Wiley, ANTELMO 08/28/2024 Results Follow-Up [facility] [address] [place] [address] VickyMarie villarANTELMO 08/14/2024 [address]ill [facility] [address] [place] [address] Mayra Thompson MA BV (bacterial vaginosis) 08/14/2024 Telephone [facility] [address] [place] [address] Mayra Thompson MA 08/12/2024 2:50 PM EDT Routine [facility] [address] [place] [address] Zhane Bella DO Well woman exam with routine gynecological exam; Vaginal discharge; STD exposure; Missed menses; , unspecified gestational age ([facility]); Diabetes mellitus screening; Flank pain 08/12/2024 Clinisync Result Encounter [facility] External Department Unsolicited Zhane Bella DO 08/12/2024 Bamboo flowsheet [facility] [address] [place] [address] Zhane Bella DO from Last 3 [...] [address] [place] [address] Mya Jacob PA [address] [facility] [place] [address] Health Maintenance Due Date Last Done Comments Influenza Vaccine (#1) 2025 03/12/2019, 2006, 02/25/2006 Procedures Procedure Name Priority Date/Time Associated Diagnosis Comments US OB BPP W NON-STRESS 10/30/2024 1:24 PM EDT POCT URINALYSIS DIPSTICK Routine 10/28/2024 2:59 PM EDT Third trimester ([facility]) 36 weeks gestation of ([facility]) US OB BPP W NON-STRESS 10/26/2024 8:15 AM EDT [facility] CMP (CMP) (FOR REMOTE [facility] USE) Routine 10/24/2024 2:03 AM EDT ALL CBC WITH AUTO DIFF Routine 10/24/2024 2:03 AM EDT [facility] URINE MICROSCOPIC ONLY Routine 10/24/2024 12:30 AM EDT [facility] UA (CLEAN/CATCH) TITLE INSURANCE AGENT/MICRO IF IND. Routine 10/24/2024 12:30 AM EDT US OB CERVICAL LENGTH 10/23/2024 4:04 PM EDT US OB GROWTH 10/23/2024 3:29 PM EDT US OB BPP W NON-STRESS 10/23/2024 3:21 PM EDT POCT URINALYSIS DIPSTICK Routine 10/21/2024 3:08 PM EDT 35 weeks gestation of ([facility]) Third trimester ([facility]) CULTURE, URINE, ROUTINE Routine 10/02/2024 11:44 AM EDT Missed menses POCT URINALYSIS DIPSTICK Routine 09/02/2024 3:18 PM EDT 28 weeks gestation of ([facility]) US OB CERVICAL LENGTH 09/02/2024 11:52 AM EDT US OB PLACENTA 09/02/2024 11:52 AM EDT [facility] URINE MICROSCOPIC ONLY Routine 09/02/2024 11:20 AM EDT [facility] UA (CLEAN/CATCH) TITLE INSURANCE AGENT/MICRO IF IND. Routine 09/02/2024 11:20 AM EDT CBC WITH AUTO DIFFERENTIAL Routine 09/01/2024 3:48 PM EDT POCT URINALYSIS DIPSTICK Routine 08/12/2024 4:46 PM EDT Well woman exam with routine gynecological exam RECURRENT VAGINITIS (HTRX) Routine 08/12/2024 4:11 PM EDT IGP,APTIMA HPV,AGE GDLN Routine 08/12/2024 2:58 PM EDT from Last 3 Months Results * US OB BPP W NON-STRESS (10/30/2024 1:24 PM EDT) Only the most recent of3 resultswithin the time period is included. Anatomical Region Laterality Modality Other 10/30/2024 1:24 PM EDT Narrative 10/30/2024 1:26 PM EDT The [address] [address] Ultrasound Report Signed Patient: LAURA FOUNTAIN MR#: [id number] : 2000 Acct:[id number] Age/Sex: 24 / F ADM Date: 10/30/24 Loc: [facility] 250-[address]: Mya Jacob Ordering Physician: Mya Jacob Date of Service: 10/30/24 Procedure(s): US OB BPP w non-stress Accession Number(s): [id number] cc: Mya Jacob; Physician,Non-Staff Adriana The [address] [address] Patient Name: LAURA FOUNTAIN MRN: [facility]:[id number] date: 2000 Sex: F Assigned Patient Location: [facility] Current Patient Location: [facility] Accession/Order Number: [id number] Exam Date: 10/30/2024 13:17 Report Date: 10/30/2024 13:24 At the request of: MYA JACOB Procedure: US OB BPP w non-stress Biophysical profile. Reason for exam: Incompetent cervix. COMPARISON: BPP 10/24/2024 TECHNIQUE: Transabdominal imaging of the gravid uterus was obtained. FINDINGS: Community Organizer reports a BPP is 8 out of 8. MELLISA measures 27.2 cm. heart rate 147 bpm. US/US OB BPP w non-stress Impression: BPP 8 out of 8. Polyhydramnios Impression dictated by: Rufus Garcia Jr., D.O. 10/30/2024 1:24 PM Dictation Location: [place] [address] Electronically authenticated by: [id number] Y Date: 10/30/2024 13:24 Dictated By: Rufus Garcia M.D. Signed By: 10/30/24 1326 DD/ 1324 TD/TT: Stogy Maker: Procedure Note Radiology, Radiologist, MD - 10/30/2024 [place] [address] Ultrasound Report Signed Patient: LAURA FOUNTAIN TMR#: [id number] : 2000Acct:[id number] Age/Sex: 24 / FADM Date: 10/30/24 Loc: [facility] 250-[address]: Mya Jacob Ordering Physician: Mya Jacob Date of Service: 10/30/24 Procedure(s): US OB BPP w non-stress Accession Number(s): [id number] cc: Mya Jacob; Physician,Non-Staff Adriana [address] [address] Patient Name: LAURA FOUNTAIN MRN: [id number] date: 2000 Sex: F Assigned Patient Location: [facility] Current Patient Location: [facility] Accession/Order Number: [id number] Exam Date: 10/30/2024 13:17 Report Date: 10/30/2024 13:24 At the request of: MYA JACOB Procedure: US OB BPP w non-stress Biophysical profile. Reason for exam: Incompetent cervix. COMPARISON: BPP 10/24/2024 TECHNIQUE: Transabdominal imaging of the gravid uterus was obtained. FINDINGS: Community Organizer reports a BPP is 8 out of 8. MELLISA measures 27.2 cm. heart rate 147 bpm. US/US OB BPP w non-stress Impression: BPP 8 out of 8. Polyhydramnios Impression dictated by: Rufus Garcia Jr., D.O. 10/30/2024 1:24 PM Dictation Location: [place] [address] Electronically authenticated by: [id number] Y Date: 3:24 Dictated By: Rufus Garcia M.D. Signed By:10/30/24 1326 DD/ 1324 TD/TT: Stogy Maker: Mya Jacob PA [facility] Final Result * (ABNORMAL) POCT [...] - Positive Urine 10/28/2024 2:59 PM EDT Zhane Bella DO POINT OF CARE TEST ENTER/EDIT OR DERABLES Final Result * (ABNORMAL) [facility] CMP (CMP) (FOR REMOTE [facility] USE) (10/24/2024 2:03 AM EDT) SODIUM 138 136 - 145 mmol/L TBH POTASSIUM 3.6 3.5 - 5.1 mmol/L TBH CHLORIDE 104 98 - 107 mmol/L TBH CARBON DIOXIDE 24.0 21.0 - 32.0 mmol/L TBH ANION GAP 13.6 TBH GLUCOSE 87 74 - 106 mg/dL TBH BLOOD UREA NITROGEN 5.0(L) 7.0 - 18.0 mg/dL TBH CREATININE 0.40(L) 0.55 - 1.02 mg/dL TBH TBH EGFR-AF LUXEMBOURGER >60 >=60 mL/min/1. 73m 2 TBH TBH EGFR-NON AF LUXEMBOURGER >60 >=60 mL/min/1. 73m 2 TB[facility] BUN [...] WITH AUTO DIFF (10/24/2024 2:03 AM EDT) Pathologist [facility] TB WBC 8.7 4.0 - 11.0 10 [...] DO CLIN[facility]NC Final Result Performing Organization Address City/[facility] Co de Phone Number CL[facility]IS[facility]NC TBH [...] DO CLIN[facility] Final Result Performing Organization Address City/[facility]/ZIP Co de Phone Number CLINISYKY TB * (ABNORMAL) [facility] UA (CLEAN/CATCH) TITLE INSURANCE AGENT/MICRO IF IND. (10/24/2024 12:30 AM EDT) Only [...] 1:25 AM EDT us Zhane Bella DO [facility] US OB CERVICAL LENGTH (10/23/2024 4:04 PM EDT) Only the most recent of2 resultswithin the time period is included. Anatomical Region Laterality Modality Other 10/23/2024 4:04 PM EDT Narrative 10/23/2024 4:06 [place] [address] Ultrasound Report Signed Patient: LAURA FOUNTAIN MR#: [id number] : 2000 Acct:[id number] Age/Sex: 24 / F ADM Date: 10/23/24 Loc: US Attending Dr: Mya Jacob Ordering Physician: Zhane Bella D.O. Date of Service: 10/23/24 Procedure(s): US OB cervical length Accession Number(s): [id number] cc: Zhane Bella D.O.; Physician,Non-Staff M.D. [place] [address] Patient Name: LAURA FOUNTAIN MRN: [id number] date: 2000 Sex: F Assigned Patient Location: US Current Patient Location: Accession/Order Number: [id number] Exam Date: 10/23/2024 16:03 Report Date: 10/23/2024 [...] Pulido M.D. 10/23/2024 4:04 PM Dictation Location: [place] [address] Electronically authenticated by: [id number] Y Date: 10/23/2024 16:04 Dictated By: Maulik Pulido D.O. Signed By: 10/23/24 1606 DD/ 1604 TD/TT: Stogy Maker: Procedure Note Radiology, Radiologist, MD - 10/23/2024 [place] [address] Ultrasound Report Signed Patient: LAURA FOUNTAIN TMR#: [id number] : 2000Acct:[id number] Age/Sex: 24 / FADM Date: 10/23/24 Loc: US Attending Dr: Mya Jacob Ordering Physician: Zhane Bella D.O. Date of Service: 10/23/24 Procedure(s): US OB cervical length Accession Number(s): [id number] cc: Zhane Bella D.O.; Physician,Non-Staff Adriana The [place] [address] Patient Name: LAURA FOUNTAIN MRN: [id number] date: 2000 Sex: F Assigned Patient Location: US Current Patient Location: Accession/Order Number: [id number] Exam Date: 10/23/2024 16:03 Report Date: 10/23/2024 16:04 At the request of: ZHANE BELLA DO Procedure: US OB cervical length Ultrasound assessment of the uterine cervix. HISTORY: Incompetent cervix. The cervix has a length of 4.0 cm. Cervical os closed. heart [id number] bpm. Cephalic presentation with longitudinal lie. US/US OB cervical length IMPRESSION: 4 cm cervical length. Impression dictated by: Maulik Pulido M.D. 10/23/2024 4:04 PM Dictation Location: [place] [address] Electronically authenticated by: [id number] Y Date: 516:04 Dictated By: Maulik Pulido D.O. Signed By:10/23/24 1606 DD/ 1604 TD/TT: Stogy Maker: us Zhane Jena DO [facility] Final Result * US OB GROWTH (10/23/2024 3:29 PM EDT) Anatomical Region Laterality Modality Other 10/23/2024 3:29 PM EDT Narrative 10/23/2024 3:31 [place] [address] Ultrasound Report Signed Patient: LAURA FOUNTAIN MR#: [id number] : 2000 Acct:[id number] Age/Sex: 24 / F ADM Date: 10/23/24 Loc: US Attending Dr: Mya Jacob Ordering Physician: Mya Jacob Date of Service: 10/23/24 Procedure(s): US OB growth Accession Number(s): [id number] cc: Mya Jacob; Physician,Non-Staff M.Lee [address] [address] Patient Name: LAURA FOUNTAIN MRN: [id number] date: 2000 Sex: F Assigned Patient Location: [facility] Current Patient Location: Accession/Order Number: [id number] Exam Date: 10/23/2024 15:27 Report Date: 10/23/2024 [...] Jr., D.O. 10/23/2024 3:29 PM Dictation Location: [place] [address] Electronically authenticated by: [id number] Y Date: 10/23/2024 15:29 Dictated By: Rufus Garcia M.D. Signed By: 10/23/24 1531 DD/ 1529 TD/TT: Stogy Maker: Procedure Note Radiology, Radiologist, MD - 10/23/2024 [place] [address] Ultrasound Report Signed Patient: LAURA FOUNTAIN TMR#: [id number] : 2000Acct:[id number] Age/Sex: 24 / FADM Date: 10/23/24 Loc: US Attending Dr: Mya Jacob Ordering Physician: Mya Jacob Date of Service: 10/23/24 Procedure(s): US OB growth Accession Number(s): [id number] cc: Mya Jacob; Physician,Non-Staff Adriana The [address] [address] Patient Name: LAURA FOUNTAIN MRN: [id number] date: 2000 Sex: F Assigned Patient Location: [facility] Current Patient Location: Accession/Order Number: [id number] Exam Date: 10/23/2024 15:27 Report Date: 10/23/2024 [...] Jr., D.O. 10/23/2024 3:29 PM Dictation Location: [place] [address] Electronically authenticated by: [id number] Y Date: 5:29 Dictated By: Rufus Garcia M.D. Signed By:10/23/24 1531 DD/ 1529 TD/TT: Stogy Maker: Mya RIOS [facility] Final Result * Urine culture (10/02/2024 11:44 AM EDT) Urine Urine specimen obtained by clean catch procedure / Unknown Zhane Bella DO LAB MICROBIOLOGY - GENERAL ORDER DONELL Final Result EXTERNAL LAB * US OB PLACENTA (09/02/2024 11:52 AM EDT) Anatomical Region Laterality Modality Other 09/02/2024 11:5 2 AM EDT Narrative 09/02/2024 11:55 [place] [address] Ultrasound Report Signed Patient: LAURA FOUNTAIN MR#: [id number] : 2000 Acct:[id number] Age/Sex: 23 / F ADM Date: Loc: [facility] 258- Attending Dr: Zhane Bella D.O. Ordering Physician: Zhane Bella D.O. Date of Service: 09/02/24 Procedure(s): US OB placenta Accession Number(s): [id number] cc: Zhane Bella D.O.; Physician,Non-Staff Adriana The [address] [address] Patient Name: LAURA FONUTAIN MRN: [id number] date: 2000 Sex: F Assigned Patient Location: [facility] Current Patient Location: [facility] Accession/Order Number: [id number] Exam Date: 09/02/2024 11:49 Report Date: 09/02/2024 [...] Jr., D.O. 09/02/2024 11:52 AM Dictation Location: [place] [address] Electronically authenticated by: [id number] Y Date: 09/02/2024 11:52 Dictated By: Rufus Garcia M.D. Signed By: 09/02/24 1155 DD/ 1152 TD/TT: Stogy Maker: Procedure Note Radiology, Radiologist, MD - 09/02/2024 [place] [address] Ultrasound Report Signed Patient: LAURA FOUNTAIN TMR#: [id number] : 2000Acct:[id number] Age/Sex: 23 / FADM Date: Loc: [facility] 258-[address]: Zhane Bella D.O. Ordering Physician: Zhane Bella D.O. Date of Service: 09/02/24 Procedure(s): US OB placenta Accession Number(s): [id number] cc: Zhane Bella D.O.; Physician,Non-Staff Adriana The [place] [id number] Patient Name: LAURA FOUNTAIN MRN: [id number] date: 2000 Sex: F Assigned Patient Location: [facility] Current Patient Location: [facility] Accession/Order Number: [id number] Exam Date: 09/02/2024 11:49 Report Date: 09/02/2024 [...] Jr., D.O. 09/02/2024 11:52 AM Dictation Location: [place] [address] Electronically authenticated by: [id number] Y Date: 1:52 Dictated By: Rufus Garcia M.D. Signed By:09/02/24 1155 DD/ 1152 TD/TT: Stogy Maker: us Zhane Bella DO [facility] Final [...] TYPE AUTOMATED DIFFERENTIAL [facility] Comment: PERFORMED AT [facility] [address],[place] [address] 09/01/2024 3:48 PM EDT 09/01/2024 9:40 PM EDT us Zhane Jena DO LAB BLOOD ORDERABLES Final Resul t [facility] * (ABNORMAL) RECURRENT VAGINITIS (HTRX) (08/12/2024 4:11 PM EDT) [facility] ATOPOBIUM VAGINAE 23.789(A) 19.961 - 24.689 ppm 08/13/2024 6:52 AM EDT [facility] ATOPOBIUM VAGINAE Detected(A) 19.961 - 24.689 ppm 08/13/2024 6:52 AM EDT [facility] BVAB 2,3 (BACTERIAL VAGINOSIS ASSOCIATED BACTERIA 2, 3); MOBILUNCUS SPP 20.226(A) 19.961 - 24.689 ppm 08/13/2024 6:52 AM EDT [facility] BVAB 2,3 (BACTERIAL VAGINOSIS ASSOCIATED BACTERIA 2, 3); MOBILUNCUS SPP Detected(A) 19.961 - 24.689 ppm 08/13/2024 6:52 AM EDT [facility] MIGUEL ALBICANS, PARAPSILOSIS, TROPICALIS 0.000 19.961 - 30.770 ppm 08/13/2024 6:52 AM EDT [facility] MIGUEL ALBICANS, PARAPSILOSIS, TROPICALIS Not Detected 19.961 - 30.770 ppm 08/13/2024 6:52 AM EDT [facility] MIGUEL GLABRATA 0.000 23.000 - 32.138 ppm 08/13/2024 6:52 AM EDT [facility] MIGUEL GLABRATA Not Detected 23.000 - 32.138 ppm 08/13/2024 6:52 AM EDT [facility] MIGUEL KRUSEI 0.000 23.000 - 32.271 ppm 08/13/2024 6:52 AM EDT [facility] MIGUEL KRUSEI Not Detected 23.000 - 32.271 ppm 08/13/2024 6:52 AM EDT [facility] CHLAMYDIA TRACHOMATIS 0.000 23.000 - 31.467 ppm 08/13/2024 6:52 AM EDT [facility] CHLAMYDIA TRACHOMATIS Not Detected 23.000 - 31.467 ppm 08/13/2024 6:52 AM EDT [facility] GARDNERELLA VAGINALIS 26.712(A) 19.961 - 24.689 ppm 08/13/2024 6:52 AM EDT [facility] GARDNERELLA VAGINALIS Detected(A) 19.961 - 24.689 ppm 08/13/2024 6:52 AM EDT [facility] MEGASPHAERA (TYPES 1, 2) 15.626(A) 19.961 - 24.689 ppm 08/13/2024 6:52 AM EDT [facility] MEGASPHAERA (TYPES 1, 2) Detected(A) 19.961 - 24.689 ppm 08/13/2024 6:52 AM EDT [facility] NEISSERIA GONORRHOEAE 0.000 23.000 - 32.117 ppm 08/13/2024 6:52 AM EDT [facility] NEISSERIA GONORRHOEAE Not Detected 23.000 - 32.117 ppm 08/13/2024 6:52 AM EDT [facility] TRICHOMONAS VAGINALIS 0.000 23.000 - 32.119 ppm 08/13/2024 6:52 AM EDT [facility] TRICHOMONAS VAGINALIS Not Detected 23.000 - 32.119 ppm 08/13/2024 6:52 AM EDT [facility] MYCOPLASMA GENITALIUM 0.000 19.961 - 24.689 ppm 08/13/2024 6:52 AM EDT [facility] MYCOPLASMA GENITALIUM Not Detected 19.961 - 24.689 ppm 08/13/2024 6:52 AM EDT [facility] ERMB, C; MEFA 23.273(A) 23.000 - 27.611 ppm 08/13/2024 6:52 AM EDT [facility] ERMB, C; MEFA Detected(A) 23.000 - 27.611 ppm 08/13/2024 6:52 AM EDT [facility] TET B, TET M 27.416(A) 23.000 - 27.778 ppm 08/13/2024 6:52 AM EDT [facility] TET B, TET M Detected(A) 23.000 - 27.778 ppm 08/13/2024 6:52 AM EDT [facility] Tissue 08/12/2024 4:11 PM EDT 08/13/2024 1:36 AM EDT us Zhane Bella DO LAB BLOOD ORDERABLES Final Resul t [facility] [address] [place] [address] * (ABNORMAL) IGP,APTIMA HPV,AGE GDLN (08/12/2024 2:58 PM EDT) AGE GDLN ACOG TESTING Note . [facility] Comment: TESTS RESULT FLAG UNITS REF RANGE LAB Clinician Provided Cytology Information Source.............Cervix No. of containers..01 ThinPrep Vial Age Algo ACOG Neha... FLAG LEGEND: L-Low Normal,H-High Normal,LL-Alert Low,HH-Alert High <-Panic Low,>-Panic High,A-Abnormal,AA-Critical Abnormal Performed at: 01 =G [address] [address] Rafaela Vega MD, IGP, RFX APTIMA HPV ASCU Note(A) . [facility] Comment: TESTS RESULT FLAG UNITS REF RANGE LAB DIAGNOSIS: [A] 02 EPITHELIAL CELL ABNORMALITY. ATYPICAL SQUAMOUS CELLS OF UNDETERMINED SIGNIFICANCE (ASC-US). Specimen adequacy: 02 Satisfactory for evaluation. Endocervical and/or squamous metaplastic cells (endocervical component) are present. Performed by: 02 Mauri Martínez, Psychology Physician ([facility]) Electronically si... 02 Frances Munoz MD, Pathologist [...] <-Panic Low,>-Panic High,A-Abnormal,AA-Critical Abnormal Performed at: [address] [address] Rafaela Vega MD, HPV APTIMA Positive( A) Negative TB Comment: This nucleic acid amplification test detects fourteen high- risk HPV types (16,18,31,33,35,39,45,51,52,56,58,59,66,68) without differentiation. Performed at: = - [address] [id number] Pharmacology Professor: Rafaela Vega MD, Phone: [phone] Performed at: [address] [id number] Pharmacology Professor: Rafaela Vega MD, Phone: [phone] 08/12/2024 2:58 PM EDT 08/12/2024 9:42 PM EDT Narrative [facility] - 08/20/2024 3:07 AM EDT SPATULA-ALONE CERVIX us Zhane Bella DO LAB BLOOD ORDERABLES Final Resul t [facility] from Last 3 Months Insurance [employer] MEDICAID [place]
--- OUTSIDE RECORDS SUMMARY | 2024-11-03 05:31 | XMS_ITS | Encounter Summary ---
Author Organization [facility] Address [address] [place] [address] Care Team Providers Care Puff Ironer Name Role Phone Unavailable Primary Care Provider Unavailabl e Encounter Details Date Type Department Care Team (Late Contact Info) Description 12/12/2023 Abstract [facility] [address] [phone] Osmany Bella DO [address] Siddhartha Barrera, [id number] [...] 11/10/2024 2:20 PM EDT Office Visit [facility] [address] [phone] Mya Kaplan PA [address] [place], [place] [id number] documented as of this encounter Visit Diagnoses Not on filedocumented in this encounter
--- OUTSIDE RECORDS SUMMARY | 2024-11-03 05:31 | XMS_ITS | CCD ---
Author Organization [facility] CliniSyor Care Team Providers Care Contract Graphic Designer Name Role Phone Amaya Luu Unavailable MISC, DR COBOS Primary Care [...] e Osmany Bella DO Primary Care Provider [phone] GUERRERO JOHNSON Admitting Unavailable GUERRERO JOHNSON Attending [...] KAPLAN Attending Unavailable JENA, OSMANY Attending Unavailable MYA KAPLAN Attending Unavailable JENA, OSMANY Attending Unavailable Medications Current Medications Medication Drug Class(es) Dates Sig (Normalized) Sig (Original) acetaminophen 500 mg oral tablet (6 sources) End: 07-16-2024 take 2 tablets by mouth every six hours as needed acetaminophen (Tylenol) 500 MG tablet Take 1,000 mg by mouth every 6 (six) hours if needed 07/16/2024 Discontinued acetaminophen 325 mg / HYDROcodone bitartrate 5 mg oral tablet (1 source) Opioid Agonist Start: 10-25-2024 HYDROcodone-acetam inophen ([place]) 5-325 MG tablet 10/25/2024 Active aspirin 81 mg chewable tablet (4 sources) Platelet Aggregation Inhibitor, Nonsteroidal Anti-inflammatory Drug Start: 01-14-2023 End: 07-16-2024 take 1 tablet by mouth once daily in the morning aspirin 81 MG chewable tablet chew and swallow 1 tablet by mouth every morning 01/14/2023 07/16/2024 Discontinued cephalexin 500 mg oral capsule (7 sources) Cephalosporin Antibacterial Start: 10-26-2024 End: 11-02-2024 take 1 capsule by mouth in the morning, then take 1 capsule by mouth in the evening, then take 1 capsule by mouth at bedtime cephalexin (Keflex) 500 MG capsule Indications: Kidney stones Take 1 capsule (500 mg) by mouth in the morning and 1 capsule (500 mg) in the evening and 1 capsule (500 mg) before bedtime. Do all this for 7 days. 21 capsule 10/26/2024 11/02/2024 Active Start: 08-03-2024 End: 08-10-2024 take 1 capsule [...] omeprazole 20 mg delayed release oral capsule (5 sources) Proton Pump Inhibitor Start: 10-28-2024 End: 11-27-2024 take 1 capsule by mouth before mealtime omeprazole (PriLOSEC) [address] capsule Indications: Gastroesophageal Reflux Disease , Heartburn Take 1 capsule (20 mg) by mouth in the morning. Take before meals. Do not crush or chew. 30 capsule 3 10/28/2024 11/27/2024 Active Start: 10-19-2022 End: 07-16-2024 take 1 capsule [...] 12 tablet 06/25/2024 Active polyethylene glycol 3350 73753 mg powder for oral solution (8 sources) [...] chewable tablet Indications: Vaginal bleeding affecting early ([facility]) Chew 1 each Daily 30 tablet 11 06/02/2024 Active Start: 06-02-2024 MV & Min w/FA-DHA ( Gummies) 0.18-25 MG chewable tablet Indications: Vaginal bleeding affecting early Chew 1 each Daily 30 tablet 11 06/02/2024 Active vit,sal 74/iron/fol ic ( VITAMIN 1+1 ORAL) (6 sources) vit,sal 74/iron/folic ( VITAMIN 1+1 ORAL) Take by mouth daily. Active Vit-Fe Fumarate-FA ( 19) chewable tablet (12 sources) Start: 10-06-2024 Vit-F e Fumarate-FA ( [...] Value Interpretation Reference Range Facility US OB BPP W NON-STRESS on 10-30-2024 [place] [address] Ultrasound Report Signed Patient: LAURA POND MR#: [id number] : 2000 Acct:[id number] Age/Sex: 24 / F ADM Date: 10/30/24 Loc: [place] [address]- Attending Dr: Mya Kaplan Ordering Physician: Mya Kaplan Date of Service: 10/30/24 Procedure(s): US OB BPP w non-stress Accession Number(s): [id number] cc: Mya Kaplan; Physician,[facility] M.D. [place] [address] Patient Name: LAURA POND MRN: [facility]:[id number] date: 2000 Sex: F Assigned Patient Location: [facility] Current Patient Location: [facility] Accession/Order Number: [id number] Exam Date: 10/30/2024 13:17 Report Date: 10/30/2024 13:24 At the request of: MYA KAPLAN Procedure: US OB BPP w non-stress Biophysical profile. Reason for exam: Incompetent cervix. COMPARISON: BPP 10/24/2024 TECHNIQUE: Transabdominal imaging of the gravid uterus was obtained. FINDINGS: Toilet Attendant reports a BPP is 8 out of 8. MELLISA measures 27.2 cm. heart rate 147 bpm. US/US OB BPP w non-stress Impression: BPP 8 out of 8. Polyhydramnios Impression dictated by: Rufus Garcia Jr., D.O. 10/30/2024 1:24 PM Dictation Location: [place] [address] Electronically authenticated by: [id number] Y Date: 10/30/2024 13:24 Dictated By: Rufus Garcia M.D. Signed By: 10/30/24 1326 DD/ 1324 TD/TT: Dry Starch Supervisor: [facility] Radiology, Radiologist, - 10/30/2024 [place] [address] Ultrasound Report Signed Patient: LAURA POND MR#: [id number] : 2000 Acct:[id number] Age/Sex: 24 / F ADM Date: 10/30/24 Loc: [facility] 250-[address]: Mya Kaplan Ordering Physician: Mya Kaplan Date of Service: 10/30/24 Procedure(s): US OB BPP w non-stress Accession Number(s): [id number] cc: Mya Kaplan; Physician,Non-Staf tg Wright [place] [address] Patient Name: LAURA POND MRN: [facility]:[id number] date: 2000 Sex: F Assigned Patient Location: [facility] Current Patient Location: [facility] Accession/Order Number: [id number] Exam Date: 10/30/2024 13:17 Report Date: 10/30/2024 13:24 At the request of: MYA KAPLAN Procedure: US OB BPP w non-stress Biophysical profile. Reason for exam: Incompetent cervix. COMPARISON: BPP 10/24/2024 TECHNIQUE: Transabdominal imaging of the gravid uterus was obtained. FINDINGS: Toilet Attendant reports a BPP is 8 out of 8. MELLISA measures 27.2 cm. heart rate 147 bpm. US/US OB BPP w non-stress Impression: BPP 8 out of 8. Polyhydramnios Impression dictated by: Rufus Garcia Jr., DCynthiaOCynthia 10/30/2024 1:24 PM Dictation Location: [place] [address] Electronically authenticated by: [id number] Y Date: 10/30/2024 13:24 Dictated By: Rufus Garcia M.D. Signed By: 10/30/24 1326 DD/ 1324 TD/TT: Dry Starch Supervisor: [facility] Radiology Study observation (narrative) [facility] US OB BPP W NON-STRESS Ordered By: Radiologist Radiology on 10-30-2024 [facility] Work Phone: US OB BPP W NON-STRESS on 10-26-2024 [place] [address] Ultrasound Report Signed Patient: LAURA POND MR#: [id number] : 2000 Acct:[id number] Age/Sex: 24 / F ADM Date: Loc: [facility] 251-[address]: Osmany Bella D.O. Ordering Physician: Osmany Bella D.O. Date of Service: 10/24/24 Procedure(s): US OB BPP w non-stress Accession Number(s): [id number] cc: Osmany Bella D.O.; Physician,Ruddy mas M.D. [place] [address] Patient Name: LAURA POND MRN: [id number]:[id number] date: 2000 Sex: F Assigned Patient Location: [facility] Current Patient Location: Accession/Order Number: [id number] Exam Date: 10/26/2024 07:43 Report Date: 10/26/2024 08:15 At the request of: OSMANY BELLA DO Procedure: US OB BPP w [...] amniotic fluid greater than 2 cm [Y] 2/ MELLISA: 18.1 cm. This is in upper normal range. Total score: 12/11 US/US OB BPP w non-stress IMPRESSION: NORMAL BIOPHYSICAL PROFILE Impression dictated by: Helena De Souza M.D. 10/26/2024 8:15 AM Dictation Location: [place] [address] Electronically authenticated by: [id number] Y Date: 10/26/2024 08:15 Dictated By: Helena De Souza M.D. Signed By: 10/26/24816 DD/ 4 TD/TT: Dry Starch Supervisor: [facility] Radiology, Radiologist, MD - 10/26/2024 [place] [address] Ultrasound Report Signed Patient: LAURA POND MR#: [id number] : 2000 Acct:[id number] Age/Sex: 24 / F ADM Date: Loc: [facility] 251-[address]: Osmany Bella D.O. Ordering Physician: Osmany Bella D.O. Date of Service: 10/24/24 Procedure(s): US OB BPP w non-stress Accession Number(s): [id number] cc: Osmany Bella D.O.; Physician,[place] mas M.D. The [place] [address] Patient Name: LAURA POND MRN: [facility]:[id number] date: 2000 Sex: F Assigned Patient Location: [facility] Current Patient Location: Accession/Order Number: [id number] Exam Date: 10/26/2024 07:43 Report Date: 10/26/2024 08:15 At the request of: OSMANY BELLA DO Procedure: US OB BPP w [...] Souza M.D. 10/26/2024 8:15 AM Dictation Location: [place] [address] Electronically authenticated by: [id number] Y Date: 10/26/2024 08:15 Dictated By: Helena De Souza M.D. Signed By: 10/26/24816 DD/ 4 TD/TT: Dry Starch Supervisor: [facility] Radiology Study observation (narrative) [facility] OB BPP W NON-STRESS Ordered By: Radiologist Radiology on 10-26-2024 [facility] Work Phone: [facility] UA (CLEAN/CATCH) TRACER BULLET SECTION SUPERVISOR/SANDRA RO IF IND.on 10-24-2024 BILIRUBIN URINE Negative NEGATIVE [facility] BLOOD URINE TRACE-I NEGATIVE [facility] Clarity (U) CLEAR CLEAR [facility] Color (U) LT. YELLOW YELLOW [facility] GLUCOSE URINE UA Negative NEGATIVE mg/dL [facility] Interpretation and review of laboratory results Abnormal [facility] Ketones Ql (U) Negative NEGATIVE mg/dL [facility] Leukocyte esterase Test stri p Ql (U) SMALL Abnormal NEGATIVE [facility] NITRITE URINE Negative NEGATIVE [facility] pH (U) 7.5 [pH] 5.0 - 9.0 [facility] PROTEIN URINE Negative NEG/TRACE mg/dL [facility] SPECIFIC GRAVITY URINE 1.010 1.005 - 1.025 [facility] URINE MICROSCOPIC INDICATED YES [facility] UROBILINOGEN URINE 2.0 EU/dL Abnormal 0.2 - 1.0 EU/dL [facility] US OB CERVICAL LENGTHon 06-2 0-2025 [place] [address] Ultrasound Report Signed Patient: LAURA POND MR#: [id number] : 2000 Acct:[id number] Age/Sex: 24 / F ADM Date: 10/23/24 Loc: US Attending Dr: Mya Kaplan Ordering Physician: Osmany Bella D.O. Date of Service: 10/23/24 Procedure(s): US OB cervical length Accession Number(s): [id number] cc: Osmany Bella D.O.; Physician,Ruddy mas M.D. The [place] [address] Patient Name: LAURA POND MRN: [facility]:[id number] date: 2000 Sex: F Assigned Patient Location: US Current Patient Location: Accession/Order Number: [id number] Exam Date: 10/23/2024 16:03 Report Date: 10/23/2024 [...] Pulido M.D. 10/23/2024 4:04 PM Dictation Location: [place] [address] Electronically authenticated by: [id number] Y Date: 10/23/2024 16:04 Dictated By: Maulik Pulido D.O. Signed By: 10/23/24 1606 DD/ 1604 TD/TT: Dry Starch Supervisor: [facility] Radiology, Radiologist, MD - 10/23/2024 [place] [address] Ultrasound Report Signed Patient: LAURA POND MR#: [id number] : 2000 Acct:[id number] Age/Sex: 24 / F ADM Date: 10/23/24 Loc: US Attending Dr: Mya Kaplan Ordering Physician: Osmany Bella D.O. Date of Service: 10/23/24 Procedure(s): US OB cervical length Accession Number(s): [id number] cc: Osmany Bella D.O.; Physician,[place]-Staf tg Wright [place] [id number] Patient Name: LAURA POND MRN: [id number] date: 2000 Sex: F Assigned Patient Location: US Current Patient Location: Accession/Order Number: [id number] Exam Date: 10/23/2024 16:03 Report Date: 10/23/2024 [...] Pulido M.D. 10/23/2024 4:04 PM Dictation Location: [place] [address] Electronically authenticated by: [id number] Y Date: 10/23/2024 16:04 Dictated By: Maulik Pulido D.O. Signed By: 10/23/24 1606 DD/ 03 TD/TT: Dry Starch Supervisor: [facility] Radiology Study observation (narrative) [facility] US OB CERVICAL LENGTHOrdered By: Radiologist Radiology on 10-23-2024 [facility] Work Phone: US OB BPP W NON-STRESS on 10-23-2024 [place] [address] Ultrasound Report Signed Patient: LAURA POND MR#: [id number] : 2000 Acct:[id number] Age/Sex: 24 / F ADM Date: 10/23/24 Loc: [facility] 250-[address]: Mya Kaplan Ordering Physician: Mya Kaplan Date of Service: 10/23/24 Procedure(s): US OB BPP w non-stress Accession Number(s): [id number] cc: Mya Kaplan; Physician,[place]-Stat[place] mas M.D. The [address] [address] Patient Name: LAURA POND MRN: [facility]:[id number] date: 2000 Sex: F Assigned Patient Location: [facility] Current Patient Location: [facility] Accession/Order Number: [id number] Exam Date: 10/23/2024 15:20 Report Date: 10/23/2024 15:21 At the request of: MYA KAPLAN Procedure: US OB BPP w non-stress Biophysical profile. Reason for exam: Incompetent cervix. COMPARISON: None. TECHNIQUE: Transabdominal imaging of the gravid uterus was obtained. FINDINGS: Toilet Attendant reports a BPP of 6 out of 8 with 0 out of 2 for breathing movements. MELLISA measures 20.9 cm. heart rate 145 bpm. US/US OB BPP w non-stress Impression: BPP 6 out of 8. Correlation with NST is recommended. Impression dictated by: Rufus Garcia Jr., D.O. 10/23/2024 3:21 PM Dictation Location: [place] [address] Electronically authenticated by: [id number] Y Date: 10/23/2024 15:21 Dictated By: Rufus Garcia M.D. Signed By: 10/23/24 1524 DD/ 1521 TD/TT: Dry Starch Supervisor: [facility] Radiology, Radiologist, MD - 10/23/2024 [place] [address] Ultrasound Report Signed Patient: LAURA POND MR#: [id number] : 2000 Acct:[id number] Age/Sex: 24 / F ADM Date: 10/23/24 Loc: [facility] 250-[address]: Mya Kaplan Ordering Physician: Mya Ernest Date of Service: 10/23/24 Procedure(s): US OB BPP w non-stress Accession Number(s): [id number] cc: Mya Kaplan; Physician,Ruddy mas M.D. [address] [address] Patient Name: LAURA POND MRN: [id number] date: 2000 Sex: F Assigned Patient Location: [facility] Current Patient Location: [facility] Accession/Order Number: [id number] Exam Date: 10/23/2024 15:20 Report Date: 10/23/2024 15:21 At the request of: MYA KAPLAN Procedure: US OB BPP w non-stress Biophysical profile. Reason for exam: Incompetent cervix. COMPARISON: None. TECHNIQUE: Transabdominal imaging of the gravid uterus was obtained. FINDINGS: Toilet Attendant reports a BPP of 6 out of 8 with 0 out of 2 for breathing movements. MELLISA measures 20.9 cm. heart rate 145 bpm. US/US OB BPP w non-stress Impression: BPP 6 out of 8. Correlation with NST is recommended. Impression dictated by: Rufus Garcia Jr., D.O. 10/23/2024 3:21 PM Dictation Location: [place] [address] Electronically authenticated by: [id number] Y Date: 10/23/2024 15:21 Dictated By: Rufus Garcia M.D. Signed By: 10/23/24 1524 DD/ 1521 TD/TT: Dry Starch Supervisor: [facility] Radiology Study observation (narrative) [facility] US OB BPP W NON-STRESS Ordered By: Radiologist Radiology on 10-23-2024 [facility] [employer] Work Phone: US OB GROWTHon 10-23-[address] [address] Ultrasound Report Signed Patient: LAURA POND MR#: [id number] : 2000 Acct:[id number] Age/Sex: 24 / F ADM Date: 10/23/24 Loc: US Attending Dr: Mya Kaplan Ordering Physician: Mya Kaplan Date of Service: 10/23/24 Procedure(s): US OB growth Accession Number(s): [id number] cc: Mya Kaplan; Physician,Ruddy mas M.D. The [address] [address] Patient Name: LAURA POND MRN: [facility]:[id number] date: 2000 Sex: F Assigned Patient Location: [facility] Current Patient Location: Accession/Order Number: [id number] Exam Date: 10/23/2024 15:27 Report Date: 10/23/2024 [...] Jr., D.O. 10/23/2024 3:29 PM Dictation Location: [place] [address] Electronically authenticated by: [id number] Y Date: 10/23/2024 15:29 Dictated By: Rufus Garcia M.D. Signed By: 10/23/24 1531 DD/ 1529 TD/TT: Dry Starch Supervisor: [facility] Radiology, Radiologist, MD - 10/23/2024 [place] [address] Ultrasound Report Signed Patient: LAURA POND MR#: [id number] : 2000 Acct:[id number] Age/Sex: 24 / F ADM Date: 10/23/24 Loc: US Attending Dr: Mya Kaplan Ordering Physician: Mya Kaplan Date of Service: 10/23/24 Procedure(s): US OB growth Accession Number(s): [id number] cc: Mya Kaplan; Physician,Ruddy mas M.D. The [place] [address] Patient Name: LAURA POND MRN: [id number]:[id number] date: 2000 Sex: F Assigned Patient Location: [facility] Current Patient Location: Accession/Order Number: [id number] Exam Date: 10/23/2024 15:27 Report Date: 10/23/2024 [...] Jr., D.O. 10/23/2024 3:29 PM Dictation Location: [place] [address] Electronically authenticated by: [id number] Y Date: 10/23/2024 15:29 Dictated By: Rufus Garcia M.D. Signed By: 10/23/24 1531 DD/ 1529 TD/TT: Dry Starch Supervisor: [facility] Radiology Study observation (narrative) [facility] US OB GROWTHOrdered By: Jhonny ologist Radiology on 10-23-2024 [facility] Work Phone: Urinalysis macro (dipstick) panel (U)on 10-21-2024 Bilirubin, UA Negative Negative - 4(70) +++ mg/dL [facility] Blood, UA Positive Negative - 50 Ayden/mcL [facility] Comment on above: moderate Clarity, UA Clear [facility] Color, UA Yellow [facility] Glucose, UA Negative Negative - 2000(110) ++++ mg/dL [facility] Interpretation and review of laboratory results Abnormal [facility] Ketones, UA Negative Negative - 160(16) ++++ mg/dL [facility] Leukocytes, UA Negative Negative - 500+++ Caleb/mcL [facility] Nitrite, UA Negative Negative - Positive [facility] pH, UA 6.5 5 - 9 [facility] Protein, UA Negative Negative - 2000(20) ++++ mg/dL [facility] Spec Grav, UA 1.015 1 - 1.03 [facility] Urobilinogen, UA 0.2 0.2 - 12 mg/dL [facility] CHLAMYDIA/GC BY PCR DANY SW [...] are dependent on adequate specimen collection. Normal [facility] Comment on above: Performed By: #### C MP #### [facility] ([facility]) [address] [place] [address] VIR URINALYSISon 09-23-2024 Bilirubin Ql (U) Negative Normal Negative [facility] Comment on above: Performed By: #### U A #### [facility] ([id number]) [address] [place] [address] VIR BLOOD/HGB Negative Normal Negative [facility] Comment on above: Performed By: #### U A #### [facility] ([id number]) [address] [place] [address] VIR Color (U) Yellow Normal Yellow, Colorless [facility] Comment on above: Performed By: #### U A #### [facility] ([id number]) [address] [place] [address] VIR Glucose Ql (U) Negative Normal Negative, 250 mg/dL, >1000 mg/dL [facility] Comment on above: Performed By: #### U A #### [facility] ([id number]) [address] [place] [address] VIR Ketones Ql (U) Trace Abnormal Negative [facility] Comment on above: Performed By: #### U A #### [facility] ([id number]) [facility] [place] [address] VIR Leukocyte esterase Test stri p Ql (U) Negative Normal Negative [facility] Comment on above: Performed By: #### U A #### [facility] ([id number]) [address] [place] [address] VIR MUCOUS Present Abnormal None [facility] Comment on above: Performed By: #### U A #### [facility] ([id number]) [address] [place] [address] VIR Nitrite Ql (U) Negative Normal Negative [facility] Comment on above: Performed By: #### U A #### [facility] ([id number]) [address] [place] [address] VIR PH,URINE 6.0 Normal 5.0-8.5 [facility] Comment on above: Performed By: #### U A #### [facility] ([id number]) [address] [place] [address] VIR Protein Ql (U) Trace Abnormal Negative [facility] Comment on above: Performed By: #### U A #### [facility] ([id number]) [address] [place] [address] VIR R.B.CELLS 0 Normal 0-5 [facility] Comment on above: Performed By: #### U A #### [facility] ([id number]) [facility] [place] [address] VIR Specific gravity (U) [Rel density] 1.025 Normal 1.003-1.03 5 [facility] Comment on above: Performed By: #### U A #### [facility] ([id number]) [address] [place] [address] VIR SQUAMOUS EPITHELIUM 3 Normal 0-5 [facility] Comment on above: Performed By: #### U A #### [facility] ([id number]) [address] [place] [address] VIR TURBIDITY Clear Normal Clear [facility] Comment on above: Performed By: #### U A #### [facility] ([id number]) [address] [place] [address] VIR UROBILINOGEN 4.0 eu/dL Abnormal 0.2 eu/dL, 1.0 eu/dL [facility] Comment on above: Performed By: #### U A #### [facility] ([id number]) [address] [place] [address] VIR W.B.CELLS 2 Normal 0-5 [facility] Comment on above: Performed By: #### U A #### [facility] ([id number]) [facility] [place] [address] VIR Amorphous sediment LM Ql (Urine sed) Present Abnormal None [facility] Comment on above: Performed By: #### U A #### [facility] ([id number]) [address] [place] [address] VIR Bilirubin Ql (U) Negative Normal Negative [facility] Comment on above: Performed By: #### U A #### [facility] ([id number]) [address] [place] [address] VIR BLOOD/HGB Negative Normal Negative [facility] Comment on above: Performed By: #### U A #### [facility] ([id number]) [address] [place] [address] VIR Color (U) Yellow Normal Yellow, Colorless [facility] Comment on above: Performed By: #### U A #### [facility] ([id number]) [address] [place] [address] VIR Glucose Ql (U) Negative Normal Negative, 250 mg/dL, >1000 mg/dL [facility] Comment on above: Performed By: #### U A #### [facility] ([id number]) [address] [place] [address] VIR Ketones Ql (U) >=80 mg/dL Abnormal Negative [facility] Comment on above: Performed By: #### U A #### [facility] ([id number]) [address] [place] [address] VIR Leukocyte esterase Test stri p Ql (U) Large Abnormal Negative [facility] Comment on above: Performed By: #### U A #### [facility] ([id number]) [facility] [place] [address] VIR Nitrite Ql (U) Negative Normal Negative [facility] Comment on above: Performed By: #### U A #### [facility] ([id number]) [facility] [place] [address] VIR PH,URINE 6.5 Normal 5.0-8.5 [facility] Comment on above: Performed By: #### U A #### [facility] ([id number]) [facility] [place] [address] VIR Protein Ql (U) Trace Abnormal Negative [facility] Comment on above: Performed By: #### U A #### [facility] ([id number]) [facility] [place] [address] VIR R.B.CELLS 5 Normal 0-5 [facility] Comment on above: Performed By: #### U A #### [facility] ([id number]) [address] [place] [address], [place] [address] VIR Specific gravity (U) [Rel density] 1.020 Normal 1.003-1.03 5 [facility] Comment on above: Performed By: #### U A #### [facility] ([id number]) [facility] [place] [address] VIR SQUAMOUS EPITHELIUM 20 High 0-5 [facility] Comment on above: Performed By: #### U A #### [facility] ([id number]) [address] [place] [address] VIR TURBIDITY Hazy Abnormal Clear [facility] Comment on above: Performed By: #### U A #### [facility] ([id number]) [address] [place] [address] VIR UROBILINOGEN 2.0 eu/dL Abnormal 0.2 eu/dL, 1.0 eu/dL [facility] Comment on above: Performed By: #### U A #### [facility] ([id number]) [address] [place] [address] VIR W.B.CELLS 50 High 0-5 [facility] Comment on above: Performed By: #### U A #### [facility] ([id number]) [facility] [place] [address] VIR URINE CULTUREon 09-23-2024 Bacteria identified Cx Nom (U) CULTURE RESULTS 10-50,000 ORGANISMS/mL NORMAL UROGENITAL ALEX Normal [facility] Comment on above: Order Comment: Urine received without preservative - delays in transport may affect results. Interpret with caution and clinical correlation is recommended. Performed By: #### U C #### [facility] ([facility]) [address] [place] [address] VIR VAGINITIS PANEL PCRon 2024 VAGINITIS PANEL [...] Not Detected No Trichomonas vaginalis detected. [employer] Vaginal Panel has not been evaluated for patients under 18 years old. Results for these patients should be reviewed and assessed in accordance with clinical presentation to determine patient diagnosis. Normal [facility] Comment on above: Performed By: #### C MP #### [facility] ([facility]) [address] [place] [address] VIR AMMONIAon 09-19-2024 Ammonia (P) [Moles/Vol] 32 umol/L Normal 18-72 P [facility] Comment on above: Performed By: #### A MMON #### [facility] ([facility]) [address] [place] [address] VIR Ammonia (P) [Moles/Vol] 34 umol/L Normal 18-72 P [facility] Comment on above: Performed By: #### A MMON #### [facility] ([facility]) [address] [place] [address] VIR CBC WITH AUTO DIFFERENTIALon 09-19-2024 BASOPHILS ABSOLUTE COUNT (10*3/UL) BY AUTOMATED COUNT 0.0 10*3/uL Normal 0.0-0.2 [facility] Comment on above: Performed By: #### C BCA #### [facility] ([facility]) [address] [place] [address] VIR BASOPHILS RELATIVE PERCENT B Y AUTOMATED COUNT 0.3 % Normal [facility] Comment on above: Performed By: #### C BCA #### [facility] ([facility]) [address] [place] [address] VIR CELLAVISION DIFFERENTIAL TYPE AUTOMATED DIFFERENTIAL Normal [facility] Comment on above: Performed By: #### C BCA #### [facility] ([facility]) [address] [place] [address] VIR Eosinophils (Bld) [#/Vol] 0.0 10*3/uL Normal 0.0-0.4 [facility] Comment on above: Performed By: #### C BCA #### [facility] ([facility]) [address] [place] [address] VIR EOSINOPHILS RELATIVE PERCENT BY AUTOMATED COUNT 0.3 % Normal [facility] Comment on above: Performed By: #### C BCA #### [facility] ([facility]) [address] [place] [address] VIR Erythrocyte distribution width (RBC) [Ratio] 13.6 % Normal 11.5-15 [facility] Comment on above: Performed By: #### C BCA #### [facility] ([facility]) [address] [place] [address] VIR Hematocrit (Bld) [Volume fraction] 30.4 % Low 35-47 [facility] Comment on above: Performed By: #### C BCA #### [facility] ([facility]) [address] [facility] [address] [place] [address] VIR Hemoglobin (Bld) [Mass/Vol] 10.3 g/dL Low 11.7-15. 5 [facility] Comment on above: Performed By: #### C BCA #### [facility] ([facility]) [address] [facility] [address] [place] [address] VIR LYMPHOCYTES ABSOLUTE COUNT (10*3/UL) BY AUTOMATED COUNT 1.9 10*3/uL Normal 1.0-3.5 [facility] Comment on above: Performed By: #### C BCA #### [facility] ([facility]) [address] [facility] [address] [place] [address] VIR LYMPHOCYTES RELATIVE PERCENT BY AUTOMATED COUNT 20.2 % Normal [facility] Comment on above: Performed By: #### C BCA #### [facility] ([facility]) [address] [place] [address] VIR MCH (RBC) [Entitic mass] 27.2 pg Normal 27-34 [facility] Comment on above: Performed By: #### C BCA #### [facility] ([facility]) [address] [place] [address] VIR MCHC (RBC) [Mass/Vol] 34.0 g/dL Normal 32-36 [facility] Comment on above: Performed By: #### C BCA #### [facility] ([facility]) [address] [place] [address] VIR MCV (RBC) [Entitic vol] 80 fL Normal 80-100 [facility] Comment on above: Performed By: #### C BCA #### [facility] ([facility]) [address] [place] [address] VIR MONOCYTES ABSOLUTE COUNT (10*3/UL) BY AUTOMATED COUNT 0.4 10*3/uL Normal 0.0-0.9 [facility] Comment on above: Performed By: #### C BCA #### [facility] ([facility]) [address] [place] [address] VIR MONOCYTES RELATIVE PERCENT B Y AUTOMATED COUNT 4.3 % Normal [facility] Comment on above: Performed By: #### C BCA #### [facility] ([facility]) [address] [place] [address] VIR NEUTROPHILS ABSOLUTE COUNT B Y AUTOMATED COUNT 6.9 10*3/uL High 1.5-6.6 [facility] Comment on above: Performed By: #### C BCA #### [facility] ([facility]) [address] [place] [address] VIR NEUTROPHILS RELATIVE PERCENT BY AUTOMATED COUNT 74.9 % Normal [facility] Comment on above: Performed By: #### C BCA #### [facility] ([facility]) [address] [place] [address] VIR Platelet mean volume (Bld) [Entitic vol] 8.4 fL Normal 7-12 [facility] Comment on above: Performed By: #### C BCA #### [facility] ([facility]) [address] [place] [address] VIR Platelets (Bld) [#/Vol] 231 10*3/uL Normal 150-450 [facility] Comment on above: Performed By: #### C BCA #### [facility] ([facility]) [address] [place] [address] VIR RBC COUNT 3.80 X10E12/L Normal 3.8-5.2 [facility] Comment on above: Performed By: #### C BCA #### [facility] ([facility]) [address] [place] [address] VIR WBC (Bld) [#/Vol] 9.2 10*3/uL Normal 4-11 [facility] Comment on above: Performed By: #### C BCA #### [facility] ([facility]) [address] [place] [address] VIR COMPREHENSIVE METABOLIC PANE Steven 09-19-2024 Albumin [Mass/Vol] 3.0 g/dL Low 3.2-5.3 [facility] Comment on above: Performed By: #### C MP #### [facility] ([facility]) [address] [place] [address] VIR ALP [Catalytic activity/Vol] 121 U/L Normal 39-130 [facility] Comment on above: Performed By: #### C MP #### [facility] ([facility]) [address] [place] [address] VIR ALT [Catalytic activity/Vol] 5 U/L Normal <=31 [facility] Comment on above: Performed By: #### C MP #### [facility] ([facility]) [address] [place] [address] VIR Anion gap [Moles/Vol] 7 mmol/L Normal 5-15 [facility] Comment on above: Performed By: #### C MP #### [facility] ([facility]) [address] [place] [address] VIR AST [Catalytic activity/Vol] 11 U/L Normal <=41 [facility] Comment on above: Performed By: #### C MP #### [facility] ([facility]) [address] [place] [address] VIR Bilirubin [Mass/Vol] 0.4 mg/dL Normal 0.3-1.2 [facility] Comment on above: Performed By: #### C MP #### [facility] ([facility]) [address] [place] [address] VIR Calcium [Mass/Vol] 8.1 mg/dL Low 8.5-10.5 [facility] Comment on above: Performed By: #### C MP #### [facility] ([facility]) [address] [place] [address] VIR Chloride [Moles/Vol] 106 mmol/L Normal 98-109 [facility] Comment on above: Performed By: #### C MP #### [facility] ([facility]) [address] [place] [address] VIR CO2 [Moles/Vol] 25 mmol/L Normal 22-32 [facility] Comment on above: Performed By: #### C MP #### [facility] ([facility]) [address] [place] [address] VIR Creatinine [Mass/Vol] 0.45 mg/dL Normal 0.40-1.00 [facility] Comment on above: Result Comment: METH OD TRACEABLE TO IDMS STANDARD Performed By: #### C MP #### [facility] ([facility]) [address] [place] [address] VIR EGFR (CKD-EPI) NON-RACE DEPENDENT >^90 Normal >=60 [facility] Comment on above: Result Comment: Repo rted eGFR is based on the CKD-EPI 2020 equation that does not use a race coefficient. Performed By: #### C MP #### [facility] ([facility]) [address] [place] [address] VIR Glucose [Mass/Vol] 96 mg/dL Normal 65-99 [facility] Comment on above: Performed By: #### C MP #### [facility] ([facility]) [address] [place] [address] VIR Potassium [Moles/Vol] 3.5 mmol/L Normal 3.5-5.0 [facility] Comment on above: Performed By: #### C MP #### [facility] ([facility]) [address] [place] [address] VIR Protein [Mass/Vol] 5.5 g/dL Low 6.0-8.0 [facility] Comment on above: Performed By: #### C MP #### [facility] ([facility]) [address] [place] [address] VIR Sodium [Moles/Vol] 138 mmol/L Normal 134-146 [facility] Comment on above: Performed By: #### C MP #### [facility] ([facility]) [address] [place] [address] VIR Urea nitrogen [Mass/Vol] 5 mg/dL Normal 5-23 [facility] Comment on above: Performed By: #### C MP #### [facility] ([facility]) [address] [place] [address] VIR SYPHILIS TOTAL(UNKNOWN SYPHI LIS STATUS)on 09-19-2024 SYPHILIS TOTAL <^0.2 Normal <=0.8 [facility] Comment on above: Order Comment: NON R EACTIVE No serologic evidence of infection to Treponema pallidum. Repeat testing may be considered in patients with suspected acute or primary syphilis in 2 to 4 weeks. Performed By: #### S YPHT #### [facility] ([facility]) [address] [place] [address] VIR VALPROIC ACID DEPAKANEon VALPROIC ACID 31 ug/mL Low 50-100 [facility] Comment on above: Performed By: #### V ALP #### [facility] ([facility]) [address] [place] [address] VIR VALPROIC ACID 28 ug/mL Low 50-100 [facility] Comment on above: Performed By: #### V ALP #### [facility] ([facility]) [address] [place] [address] VIR ACETAMINOPHEN LEVELon 2024 Acetaminophen [Mass/Vol] 6.6 ug/mL Low 10.0-30.0 [facility] Comment on above: Order Comment: Refer ence ranges are for therapeutic limits. Performed By: #### A CETA ####[facility] ([address] [address] VIR AMMONIAon 09-18-2024 Ammonia (P) [Moles/Vol] 15 umol/L Normal 11-35 P [facility] Comment on above: Performed By: #### A MMON ####[facility] ([address] [address] VIR CBC WITH AUTO DIFFERENTIALon 09-18-2024 BASOPHILS ABSOLUTE COUNT (10*3/UL) BY AUTOMATED COUNT 0.0 10*3/uL Normal 0.0-0.2 [facility] Comment on above: Performed By: #### C BCA ####[address] [address] VIR BASOPHILS RELATIVE PERCENT B Y AUTOMATED COUNT 0.1 % Normal [facility] Comment on above: Performed By: #### C BCA ####[facility] ([address] [address] VIR CELLAVISION DIFFERENTIAL TYPE AUTOMATED DIFFERENTIAL Normal [facility] Comment on above: Performed By: #### C BCA ####[facility] ([address] [address] VIR Eosinophils (Bld) [#/Vol] 0.0 10*3/uL Normal 0.0-0.4 [facility] Comment on above: Performed By: #### C BCA ####[facility] ([address] [address] VIR EOSINOPHILS RELATIVE PERCENT BY AUTOMATED COUNT 0.3 % Normal [facility] Comment on above: Performed By: #### C BCA ####[facility] ([address] [place] [address] VIR Erythrocyte distribution width (RBC) [Ratio] 14.1 % Normal 11.5-15 [facility] Comment on above: Performed By: #### C BCA ####[facility] ([address] [address] VIR Hematocrit (Bld) [Volume fraction] 30.8 % Low 35-47 [facility] Comment on above: Performed By: #### C BCA ####[facility] ([address] [address] VIR Hemoglobin (Bld) [Mass/Vol] 10.6 g/dL Low 11.7-15. 5 [facility] Comment on above: Performed By: #### C BCA ####[facility] ([address] [address] VIR LYMPHOCYTES ABSOLUTE COUNT (10*3/UL) BY AUTOMATED COUNT 1.5 10*3/uL Normal 1.0-3.5 [facility] Comment on above: Performed By: #### C BCA ####[facility] ([address] [address] VIR LYMPHOCYTES RELATIVE PERCENT BY AUTOMATED COUNT 15.0 % Normal [facility] Comment on above: Performed By: #### C BCA ####[facility] ([address] [address] VIR MCH (RBC) [Entitic mass] 27.8 pg Normal 27-34 [facility] Comment on above: Performed By: #### C BCA ####[facility] ([address] [place] [address] VIR MCHC (RBC) [Mass/Vol] 34.5 g/dL Normal 32-36 [facility] Comment on above: Performed By: #### C BCA ####[facility] ([address] [place] [address] VIR MCV (RBC) [Entitic vol] 81 fL Normal 80-100 [facility] Comment on above: Performed By: #### C BCA ####[facility] ([address] [place] [address] VIR MONOCYTES ABSOLUTE COUNT (10*3/UL) BY AUTOMATED COUNT 0.4 10*3/uL Normal 0.0-0.9 [facility] Comment on above: Performed By: #### C BCA ####[facility] ([address] [place] [address] VIR MONOCYTES RELATIVE PERCENT B Y AUTOMATED COUNT 4.0 % Normal [facility] Comment on above: Performed By: #### C BCA ####[facility] ([address] [address] VIR NEUTROPHILS ABSOLUTE COUNT B Y AUTOMATED COUNT 7.8 10*3/uL High 1.5-6.6 [facility] Comment on above: Performed By: #### C BCA ####[facility] ([address] [address] VIR NEUTROPHILS RELATIVE PERCENT BY AUTOMATED COUNT 80.6 % Normal [facility] Comment on above: Performed By: #### C BCA ####[facility] ([address] [place] [address] VIR Platelet mean volume (Bld) [Entitic vol] 8.3 fL Normal 7-12 [facility] Comment on above: Performed By: #### C BCA ####[facility] ([address] [place] [address] VIR Platelets (Bld) [#/Vol] 221 10*3/uL Normal 150-450 [facility] Comment on above: Performed By: #### C BCA ####[facility] ([address] [place] [address] VIR RBC COUNT 3.82 X10E12/L Normal 3.8-5.2 [facility] Comment on above: Performed By: #### C BCA ####[facility] ([address] [place] [address] VIR WBC (Bld) [#/Vol] 9.7 10*3/uL Normal 4-11 [facility] Comment on above: Performed By: #### C BCA ####[facility] ([address] [place] [address] VIR COMPREHENSIVE METABOLIC PANE Steven 09-18-2024 Albumin [Mass/Vol] 2.6 g/dL Low 3.2-5.3 [facility] Comment on above: Performed By: #### C MP ####[facility] ([address] [place] [address] VIR ALP [Catalytic activity/Vol] 137 U/L High 39-130 [facility] Comment on above: Performed By: #### C MP ####[facility] ([address] [place] [address] VIR ALT [Catalytic activity/Vol] 9 U/L Normal <=31 [facility] Comment on above: Performed By: #### C MP ####[facility] ([address] [place] [address] VIR Anion gap [Moles/Vol] 4 mmol/L Low 5-15 [facility] Comment on above: Performed By: #### C MP ####[facility] ([address] [place] [address] VIR AST [Catalytic activity/Vol] 14 U/L Normal <=41 [facility] Comment on above: Performed By: #### C MP ####[facility] ([place] [address] [place] [address] VIR Bilirubin [Mass/Vol] 0.6 mg/dL Normal 0.3-1.2 [facility] Comment on above: Performed By: #### C MP ####[facility] ([address] [place] [address] VIR Calcium [Mass/Vol] 7.9 mg/dL Low 8.5-10.5 [facility] Comment on above: Performed By: #### C MP ####[facility] ([address] [place] [address] VIR Chloride [Moles/Vol] 110 mmol/L High 98-109 [facility] Comment on above: Performed By: #### C MP ####[facility] ([address] [place] [address] VIR CO2 [Moles/Vol] 20 mmol/L Low 22-32 [facility] Comment on above: Performed By: #### C MP ####[facility] ([address] [place] [address] VIR Creatinine [Mass/Vol] 0.48 mg/dL Normal 0.40-1.00 [facility] Comment on above: Result Comment: METH OD TRACEABLE TO IDMS STANDARD Performed By: #### C MP ####[facility] ([address] [place] [address] VIR EGFR (CKD-EPI) NON-RACE DEPENDENT >^90 Normal >=60 [facility] Comment on above: Result Comment: eGFR not reported due to non-numeric value for Creatinine. Reported eGFR is based on the CKD-EPI 2021 equation that does not use a race coefficient. Performed By: #### C MP ####[facility] ([address] [place] [address] VIR Glucose [Mass/Vol] 87 mg/dL Normal 65-99 [facility] Comment on above: Performed By: #### C MP ####[facility] ([address] [place] [address] VIR Potassium [Moles/Vol] 3.5 mmol/L Normal 3.5-5.0 [facility] Comment on above: Performed By: #### C MP ####[facility] ([address] [place] [address] VIR Protein [Mass/Vol] 6.3 g/dL Normal 6.0-8.0 [facility] Comment on above: Performed By: #### C MP ####[facility] ([address] [place] [address] VIR Sodium [Moles/Vol] 134 mmol/L Normal 134-146 [facility] Comment on above: Performed By: #### C MP ####[facility] ([address] [address] VIR Urea nitrogen [Mass/Vol] 6 mg/dL Normal 5-23 [facility] Comment on above: Performed By: #### C MP ####[facility] ([address] [address] VIR DRUG SCREEN, URINEon 025 AMPHETAMINE/METHAMP Negative Normal Negative [facility] Comment on above: Result Comment: AMPH /METH screening cut off = 1000 ng/mL Performed By: #### U A #### [facility] ([id number]) [address] [place] [address] BARBITURATES Negative Normal Negative [facility] Comment on above: Result Comment: Jami iturates screening cut off value = 200 ng/mL Performed By: #### U A #### [facility] ([id number]) [address] [place] [address] BENZODIAZEPINES Negative Normal Negative [facility] Comment on above: Result Comment: Hunter odiazepines screening cut off value = 200 ng/mL Performed By: #### U A #### [facility] ([id number]) [address] [place] [address] CANNABINOIDS Negative Normal Negative [facility] Comment on above: Result Comment: Latha abinoids/THC screening cut off value = 50 ng/mL Performed By: #### U A #### [facility] ([id number]) [address] [place] [address] COCAINE METABOLITE Negative Normal Negative [facility] Comment on above: Result Comment: Coca ine screening cut off value = 300 ng/mL Performed By: #### U A #### [facility] ([id number]) [address] [place] [address] ECSTASY Negative Normal Negative [facility] Comment on above: Result Comment: Ecst asy screening cut off value = 500 ng/mL Performed By: #### U A #### [facility] ([id number]) [address] [place] [address] METHADONE Negative Normal Negative [facility] Comment on above: Result Comment: Meth adone screening cut off value = 300 ng/mL. Performed By: #### U A #### [facility] ([id number]) [address] [place] [address] OPIATES Negative Normal Negative [facility] Comment on above: Result Comment: Opia olivia screening cut off value = 300 ng/mL This test is used for the detection of codeine, hydrocodone (>1000 ng/mL), morphine and hydromorphone (>900 ng/mL) in urine. Performed By: #### U A #### [facility] ([id number]) [address] [place] [address] OXYCODONE Negative Normal Negative [facility] Comment on above: Result Comment: Oxyc odone screening cut off value = 300 ng/mL This test is used for the detection of oxycodone and oxymorphone in urine. Performed By: #### U A #### [facility] ([id number]) [address] [place] [address] PHENCYCLIDINE Negative Normal Negative [facility] Comment on above: Result Comment: Phen cyclidine screening cut off value = 25 ng/mL Performed By: #### U A #### [facility] ([id number]) [address] [place] [address] ETHANOLon 09-18-2024 Ethanol [Mass/Vol] mg/dL Normal <=0.080 [facility] Comment on above: Result Comment: This report is intended for use in clinical monitoring or management of patients. Performed By: #### A LCO ####[facility] ([facility])[address] [place], [place] [address], [place] [address] VIR IRON AND TIBCon 09-18-2024 Iron [Mass/Vol] 62 ug/dL Normal 50-170 [facility] Comment on above: Performed By: #### U A #### [facility] ([id number]) [address] [place] [address] IRON BINDING 560 ug/dL High 250-425 [facility] Comment on above: Performed By: #### U A #### [facility] ([id number]) [address] [place] [address] IRON SATURATION 11 % SATURATION Low 15-50 [facility] Comment on above: Performed By: #### U A #### [facility] ([id number]) [address] [place] [address] Transferrin [Mass/Vol] 400 mg/dL High 168-336 [facility] Comment on above: Performed By: #### U A #### [facility] ([id number]) [address] [place] [address] POCT NURSING URINE MACROSCOP IC UAon 09-18-2024 BILIRUBIN ELOISA Negative Normal Negative [facility] Comment on above: Performed By: #### U A #### [facility] ([id number]) [address] [place] [address] BLOOD/HGB ELOISA Negative Normal Negative [facility] Comment on above: Performed By: #### U A #### [facility] ([id number]) [address] [place] [address] GLUCOSE ELOISA Negative Normal Negative [facility] Comment on above: Performed By: #### U A #### [facility] ([id number]) [address] [place] [address] 62339 KETONES ELOISA 80 mg/dL Abnormal Negative [facility] Comment on above: Performed By: #### U A #### [facility] ([id number]) [address] [place] [address] [place] [address] LEUKOCYTE ESTERASE ELOISA Moderate Abnormal Negative [facility] Comment on above: Performed By: #### U A #### [facility] ([id number]) [address] [place] [address] [place] [address] NITRITE ELOISA Negative Normal Negative [facility] Comment on above: Performed By: #### U A #### [facility] ([id number]) [address] [place] [address] 30794 PH ELOISA 7.0 Normal 5.0, 6.0, 6.5, 7.0, 7.5, 8.0, 8.5, 5.5 [facility] Comment on above: Performed By: #### U A #### [facility] ([id number]) [address] [place] [address] 52506 PROTEIN ELOISA Negative Normal Negative [facility] Comment on above: Performed By: #### U A #### [facility] ([id number]) [address] [place] [address] [place] [address] SPECIFIC GRAVITY ELOISA 1.015 Normal 1.010, 1.015, 1.020, 1.025 [facility] Comment on above: Performed By: #### U A #### [facility] ([id number]) [address] [place] [address]1454 UROBILINOGEN ELOISA 0.2 E.U./dL Normal [facility] Comment on above: Performed By: #### U A #### [facility] ([id number]) [address] [place] [address] 389[address] BILIRUBIN ELOISA Negative Normal Negative [facility] Comment on above: Performed By: #### U A #### [facility] ([id number]) [address] [place] [address] [place] [address] BLOOD/HGB ELOISA Negative Normal Negative [facility] Comment on above: Performed By: #### U A #### [facility] ([id number]) [address] [place] [address] 23244 GLUCOSE ELOISA Negative Normal Negative [facility] Comment on above: Performed By: #### U A #### [facility] ([id number]) [address] [place] [address] [place] [address] KETONES ELOISA 80 mg/dL Abnormal Negative [facility] Comment on above: Performed By: #### U A #### [facility] ([id number]) [address] [place] [address]60 LEUKOCYTE ESTERASE ELOISA Small Abnormal Negative [facility] Comment on above: Performed By: #### U A #### [facility] ([id number]) [address] [place] [address] [place] [address] NITRITE ELOISA Negative Normal Negative [facility] Comment on above: Performed By: #### U A #### [facility] ([id number]) [address] [place] [address] 92187 PH ELOISA 7.0 Normal 5.0, 6.0, 6.5, 7.0, 7.5, 8.0, 8.5, 5.5 [facility] Comment on above: Performed By: #### U A #### [facility] ([id number]) [address] [place] [address] 67621 PROTEIN ELOISA Negative Normal Negative [facility] Comment on above: Performed By: #### U A #### [facility] ([id number]) [address] [place] [address] 19758 SPECIFIC GRAVITY ELOISA 1.015 Normal 1.010, 1.015, 1.020, 1.025 [facility] Comment on above: Performed By: #### U A #### [facility] ([id number]) [address] [place] [address] 36980 UROBILINOGEN ELOISA 0.2 E.U./dL Normal [facility] Comment on above: Performed By: #### U A #### [facility] ([id number]) [address] [place] [address] 73553 SALICYLATE LEVELon SALICYLATE <^4.0 Normal 2.0-25.0 [facility] Comment on above: Order Comment: Refer ence ranges are for therapeutic limits. Performed By: #### S ALI ####[facility])[address] [place] [address] 199[address] VIR VALPROIC ACID DEPAKANEon VALPROIC ACID 11 ug/mL Low 50-100 [facility] Comment on above: Performed By: #### U A #### [facility] ([id number]) [address] [place] [address] No Panel InformationOrdered By: Radiologist Radiology on 09-02-2024 [facility] Work Phone: No Panel Informationon 09-02 Radiology Study observation (narrative) [facility] UA (CLEAN/CATCH) TRACER BULLET SECTION SUPERVISOR/SANDRA RO IF IND.on 09-02-2024 BILIRUBIN URINE Negative NEGATIVE [facility] BLOOD URINE Negative NEGATIVE [facility] Clarity (U) SL CLOUDY CLEAR [facility] Color (U) LT. YELLOW YELLOW [facility] GLUCOSE URINE UA Negative NEGATIVE mg/dL [facility] Interpretation and review of laboratory results Abnormal [facility] Ketones Ql (U) Negative NEGATIVE mg/dL [facility] Leukocyte esterase Test stri p Ql (U) MODERATE Abnormal [facility]IVE [facility] NITRITE URINE Negative NEGATIVE [facility] pH (U) 7.0 [pH] 5.0 - 9.0 [facility] PROTEIN URINE Negative NEG/TRACE mg/dL [facility] SPECIFIC GRAVITY URINE 1.015 1.005 - 1.025 [facility] URINE MICROSCOPIC INDICATED YES [facility] UROBILINOGEN URINE 0.2 EU/dL 0.2 - 1.0 EU/dL [facility] US OB CERVICAL LENGTHon 08-06 [place] [address] Ultrasound Report Signed Patient: LAURA POND MR#: [id number] : 2000 Acct:[id number] Age/Sex: 23 / F ADM Date: Loc: [facility] 258-[address]: Osmany Bella D.O. Ordering Physician: Osmany Bella D.O. Date of Service: 09/02/24 Procedure(s): US OB cervical length Accession Number(s): [id number] cc: Osmany Blela D.O.; Physician,Ruddy mas M.D. [address] [address] Patient Name: LAURA POND MRN: [id number] date: 2000 Sex: F Assigned Patient Location: [facility] Current Patient Location: [facility] Accession/Order Number: [id number] Exam Date: 09/02/2024 11:49 Report Date: 09/02/2024 [...] Jr., D.O. 09/02/2024 11:52 AM Dictation Location: [place] [address] Electronically authenticated by: [id number] Y Date: 09/02/2024 11:52 Dictated By: Rufus Garcia M.D. Signed By: 09/02/24 1155 DD/ 1152 TD/TT: Dry Starch Supervisor: [facility] Radiology, Radiologist, MD - 09/02/2024 [place] [address] Ultrasound Report Signed Patient: LAURA POND MR#: [id number] : 2000 Acct:[id number] Age/Sex: 23 / F ADM Date: Loc: [facility] 258-[address]: Osmany Bella D.O. Ordering Physician: Osmany Bella D.O. Date of Service: 09/02/24 Procedure(s): US OB cervical length Accession Number(s): [id number] cc: Osmany Bella D.O.; Physician,Ruddy mas M.D. The [place] [id number] Patient Name: LAURA POND MRN: [facility]:[id number] date: 2000 Sex: F Assigned Patient Location: [facility] Current Patient Location: [facility] Accession/Order Number: [id number] Exam Date: 09/02/2024 11:49 Report Date: 09/02/2024 11:52 At the request of: OSMANY EBLLA DO Procedure: US OB cervical length Placenta [...] Jr., D.O. 09/02/2024 11:52 AM Dictation Location: [place] Electronically authenticated by: [id number] Y Date: 09/02/2024 11:52 Dictated By: Rufus Garcia M.D. Signed By: 09/02/24 1155 DD/ 1152 TD/TT: Dry Starch [facility] PLACENTAon 09-02-2024 [place] [address] Ultrasound Report Signed Patient: LAURA POND MR#: [id number] : 2000 Acct:[id number] Age/Sex: 23 / F ADM Date: Loc: [facility] 258-[address]: Osmany Bella D.O. Ordering Physician: Osmany Bella D.O. Date of Service: 09/02/24 Procedure(s): US OB placenta Accession Number(s): [id number] cc: Osmany Bella D.O.; Physician,Ruddy mas M.D. [place] [id number] Patient Name: LAURA POND MRN: [id number] date: 2000 Sex: F Assigned Patient Location: [facility] Current Patient Location: [facility] Accession/Order Number: [id number] Exam Date: 09/02/2024 11:49 Report Date: 09/02/2024 [...] Jr., D.O. 09/02/2024 11:52 AM Dictation Location: [facility] Electronically authenticated by: [id number] Y Date: 09/02/2024 11:52 Dictated By: Rufus Garcia M.D. Signed By: 09/02/24 1155 DD/ 1152 TD/TT: Dry Starch Supervisor: [facility] Radiology, Radiologist, MD - 09/02/2024 [place] [address] Ultrasound Report Signed Patient: LAURA POND MR#: [id number] : 2000 Acct:[id number] Age/Sex: 23 / F ADM Date: Loc: [facility] [address]: Osmany Bella D.O. Ordering Physician: Osmany Bella D.O. Date of Service: 09/02/24 Procedure(s): US OB placenta Accession Number(s): [id number] cc: Osmany Bella D.O.; Physician,Ruddy mas M.D. The [place] [id number] Patient Name: LAURA POND MRN: [facility]:[id number] date: 2000 Sex: F Assigned Patient Location: [facility] Current Patient Location: [facility] Accession/Order Number: [id number] Exam Date: 09/02/2024 11:49 Report Date: 09/02/2024 [...] Jr., D.O. 09/02/2024 11:52 AM Dictation Location: [place] Electronically authenticated by: [id number] Y Date: 09/02/2024 11:52 Dictated By: Rufus Garcia M.D. Signed By: 09/02/24 1155 DD/ 1152 TD/TT: Dry Starch Supervisor: [facility] Urinalysis macro (dipstick) panel (U)Ordered By: Jaylin Wolfe on 09-02-2024 Bilirubin, UA Negative Negative - 4(70) +++ mg/dL [facility] Blood, UA Positive Negative - 50 Ayden/mcL [facility] Comment on above: Trace-intact Clarity, UA Clear [facility] Color, UA Yellow [facility] Glucose, UA Negative Negative - 2000(110) ++++ mg/dL [facility] Interpretation and review of laboratory results Abnormal [facility] Ketones, UA Negative Negative - 160(16) ++++ mg/dL [facility] Leukocytes, UA Positive Negative - 500+++ Caleb/mcL [facility] Comment on above: Large Nitrite, UA Negative Negative - Positive [facility] pH, UA 6 5 - 9 [facility] Protein, UA Positive Negative - 2000(20) ++++ mg/dL [facility] Comment on above: 30mg/dL Spec Grav, UA 1.025 1 - 1.03 [facility] Urobilinogen, UA 0.2 0.2 - 12 mg/dL [facility] CBC WITH AUTO DIFFERENTIALon 09-01-2024 BASOPHILS ABSOLUTE COUNT (10*3/UL) BY AUTOMATED COUNT 0.0 10*3/uL Normal [facility] Comment on above: Performed By: #### C BCA ####[facility] ([facility])[address], [place] [address] VIR BASOPHILS RELATIVE PERCENT B Y AUTOMATED COUNT 0.2 % Normal [facility] Comment on above: Performed By: #### C BCA ####[facility] ([facility])[address], [place] [address] VIR CELLAVISION DIFFERENTIAL TYPE AUTOMATED DIFFERENTIAL Normal [facility] Comment on above: Performed By: #### C BCA ####[facility] ([facility])[address], [place] [address] VIR Eosinophils (Bld) [#/Vol] 0.0 10*3/uL Normal [facility] Comment on above: Performed By: #### C BCA ####[facility] ([facility])[address], [place] [address] VIR EOSINOPHILS RELATIVE PERCENT BY AUTOMATED COUNT 0.4 % Normal [facility] Comment on above: Performed By: #### C BCA ####[facility] ([facility])[address], [place] [address] VIR Erythrocyte distribution width (RBC) [Ratio] 13.7 % Normal 11.5-15 [facility] Comment on above: Performed By: #### C BCA ####[facility] ([facility])[address], [place] [address] VIR Hematocrit (Bld) [Volume fraction] 31.9 % Low 35-47 [facility] Comment on above: Performed By: #### C BCA ####[facility] ([facility])[address], [place] [address] VIR Hemoglobin (Bld) [Mass/Vol] 10.9 g/dL Low 11.7-15. 5 [facility] Comment on above: Performed By: #### C BCA ####[facility] ([facility])[address], [place] [address] VIR LYMPHOCYTES ABSOLUTE COUNT (10*3/UL) BY AUTOMATED COUNT 1.5 10*3/uL Normal [facility] Comment on above: Performed By: #### C BCA ####[facility] ([facility])[address], [place] [address] VIR LYMPHOCYTES RELATIVE PERCENT BY AUTOMATED COUNT 17.0 % Normal [facility] Comment on above: Performed By: #### C BCA ####[facility] ([facility])[address], [place] [address] VIR MCH (RBC) [Entitic mass] 28.2 pg Normal 27-34 [facility] Comment on above: Performed By: #### C BCA ####[facility] ([facility])[address], [place] [address] VIR MCHC (RBC) [Mass/Vol] 34.1 g/dL Normal 32-36 [facility] Comment on above: Performed By: #### C BCA ####[facility] ([facility])[address], [place] [address] VIR MCV (RBC) [Entitic vol] 83 fL Normal 80-100 [facility] Comment on above: Performed By: #### C BCA ####[facility] ([facility])[address], [place] [address] VIR MONOCYTES ABSOLUTE COUNT (10*3/UL) BY AUTOMATED COUNT 0.3 10*3/uL Normal [facility] Comment on above: Performed By: #### C BCA ####[facility] ([facility])[address], [place] [address] VIR MONOCYTES RELATIVE PERCENT B Y AUTOMATED COUNT 3.7 % Normal [facility] Comment on above: Performed By: #### C BCA ####[facility] ([facility])[address], [place] [address] VIR NEUTROPHILS ABSOLUTE COUNT B Y AUTOMATED COUNT 7.1 10*3/uL Normal [facility] Comment on above: Performed By: #### C BCA ####[facility] ([facility])[address], [place] [address] VIR NEUTROPHILS RELATIVE PERCENT BY AUTOMATED COUNT 78.7 % Normal [facility] Comment on above: Performed By: #### C BCA ####[facility] ([facility])[address], [place] [address] VIR Platelet mean volume (Bld) [Entitic vol] 8.9 fL Normal 7-12 [facility] Comment on above: Performed By: #### C BCA ####[facility] ([facility])[address], [place] [address] VIR Platelets (Bld) [#/Vol] 226 10*3/uL Normal 150-450 [facility] Comment on above: Performed By: #### C BCA ####[facility] ([facility])[address], [place] [address] VIR RBC COUNT 3.86 X10E12/L Normal 3.8-5.2 [facility] Comment on above: Performed By: #### C BCA ####[facility] ([facility])[address], [place] [address] VIR WBC (Bld) [#/Vol] 9.0 10*3/uL Normal 4-11 [facility] Comment on above: Performed By: #### C BCA ####[facility] ([facility])[address], [place] [address] VIR GLUCOSE TOLERANCE, FASTINGon 09-01-2024 GLUCOSE TOLERANCE, FASTING GLUF GLUCOSE TOLERANCE, FASTING Cancelled Normal [facility] Comment on above: Order Comment: FASTI NG GLUCOSE NOT NEEDED FOR 1 HOUR 50 GRAM GLUCOLA IGP,APTIMA HPV,AGE GDLNon AGE GDLN ACOG TESTING Note . [facility] Comment on above: TESTS RESULT FLAG UN ITS REF RANGE LAB ---- Clinician Provided Cytology Information Source.............Cervix No. of containers..01 ThinPrep Vial Age Anderson KEYS Olivia... ---- FLAG LEGEND: L-Low Normal,H-High Normal,LL-Alert Low,HH-Alert High <-Panic Low,>-Panic High,A-Abnormal,AA-Critical Abnormal ---- Performed at: 01 =G [address] [address] Rafaela Vega MD, HPV APTIMA Positive Abnormal Negative [facility] Comment on above: This nucleic acid am plification test detects fourteen high- risk HPV types (16,18,31,33,35,39,45,51,52,56,58,59,66,68) without differentiation. Performed at: =[address] [id number] Simulation Technician: Rafaela Vega MD, Phone: [phone] Performed at: - [address] [id number] Simulation Technician: Rafaela Vega MD, Phone: [phone] IGP, RFX APTIMA HPV ASCU Note Abnormal . [facility] Comment on above: TESTS RESULT FLAG UN ITS REF RANGE LAB ---- DIAGNOSIS: [A] 02 EPITHELIAL CELL ABNORMALITY. ATYPICAL SQUAMOUS CELLS OF UNDETERMINED SIGNIFICANCE (ASC-US). Specimen adequacy: 02 Satisfactory for evaluation. Endocervical and/or squamous metaplastic cells (endocervical component) are present. Performed by: 02 Mauri Martínez, Cloud Services Architect (ASCP) Electronically si... Frances Munoz MD, Pathologist [...] Low,>-Panic High,A-Abnormal,AA-Critical Abnormal ---- Performed at: [address] [address] Rafaela Vega MD, Interpretation and review of laboratory results Abnormal [facility] SPATULA-ALONE CERVIX [facility] Urinalysis macro (dipstick) panel (U)on 08-12-2024 Bilirubin, UA Negative Negative - 4(70) +++ mg/dL [facility] Blood, UA Negative Negative - 50 Ayden/mcL [facility] Clarity, UA Clear [facility] Color, UA Yellow [facility] Glucose, UA Negative Negative - 2000(110) ++++ mg/dL [facility] Interpretation and review of laboratory results Normal [facility] Ketones, UA Negative Negative - 160(16) ++++ mg/dL [facility] Leukocytes, UA Negative Negative - 500+++ Caleb/mcL [facility] Nitrite, UA Negative Negative - Positive [facility] pH, UA 5.5 5 - 9 [facility] Protein, UA Negative Negative - 2000(20) ++++ mg/dL [facility] Spec Grav, UA 1.02 1 - 1.03 [facility] Urobilinogen, UA 1.0 0.2 - 12 mg/dL [facility] URINALYSISon 08-03-2024 Bilirubin Ql (U) Negative Normal NEG [facility] Comment on above: Performed By: #### U A ####[facility] ([id number])[address] [place] [address], [place] [address] BLOOD/HGB Negative Normal NEG [facility] Comment on above: Performed By: #### U A ####[facility] ([id number])[address] [place] [address], [place] [address] Color (U) YELLOW Normal YELLOW [facility] Comment on above: Performed By: #### U A ####[facility] ([id number])[address] [place] [address], [place] [address] Glucose Ql (U) Negative Normal NEG [facility] Comment on above: Performed By: #### U A ####[facility] ([id number])[address] [place] [address], [place] [address] Ketones Ql (U) Negative Normal NEG [facility] Comment on above: Performed By: #### U A ####[facility] ([id number])[address] [place] [address], [place] [address] Leukocyte esterase Test stri p Ql (U) SMALL Abnormal NEG [facility] Comment on above: Performed By: #### U A ####[facility] ([id number])[address] [place], [place] [address], [place] [address] MUCOUS PRESENT Abnormal NONE [facility] Comment on above: Performed By: #### U A ####[facility] ([id number])[address] [place] [address] Nitrite Ql (U) Negative Normal NEG [facility] Comment on above: Performed By: #### U A ####[facility] ([id number])[address] [place] [address] pH (U) 6.0 [pH] Normal 5.0-8.5 [facility] Comment on above: Performed By: #### U A ####[facility] ([id number])[address] [place] [address] Protein Ql (U) Negative Normal NEG [facility] Comment on above: Performed By: #### U A ####[facility] ([id number])[address] [place] [address] R.B.CELLS 0 /hpf Normal 0-5 [facility] Comment on above: Performed By: #### U A ####[facility] ([id number])[address] [place] [address] Specific gravity (U) [Rel density] 1.025 Normal 1.003-1.03 5 [facility] Comment on above: Performed By: #### U A ####[facility] ([id number])[address] [place] [address] SQUAMOUS EPITHELIUM 13 /hpf High 0-5 [facility] Comment on above: Performed By: #### U A ####[facility] ([id number])[address] [place] [address] TURBIDITY CLEAR Normal CLEAR [facility] Comment on above: Performed By: #### U A ####[facility] ([id number])[address] [place] [address] Urinalysis dipstick W Reflex Microscopic panel (U) URINE RECEIVED WITHOUT PRESERVATIVE-DELAY S IN TRANSPORT MAY AFFECT RESULTS.INTERPRET WITH CAUTION AND CLINICAL CORRELATION IS RECOMMENDED. Normal [facility] Comment on above: Performed By: #### U A ####[facility] ([id number])[address] [place] [address] Urobilinogen Qn (U) 0.2 {Krishna'U}/dL Normal <1.1 [facility] Comment on above: Performed By: #### U A ####[facility] ([id number])[address] [place] [address] W.B.CELLS 12 /hpf High 0-5 [facility] Comment on above: Performed By: #### U A ####[facility] ([id number])[address] [place] [address] URINE CULTUREon 08-03-2024 Bacteria identified Cx Nom (U) SPECIMEN NOTES URINE RECEIVED WITHOUT PRESERVATIVE CULTURE RESULTS 10-50,000 ORGANISMS/mL NORMAL UROGENITAL ALEX URINE RECEIVED WITHOUT PRESERVATIVE-DELAY S IN TRANSPORT MAY AFFECT RESULTS.INTERPRET WITH CAUTION AND CLINICAL CORRELATION IS RECOMMENDED. Normal [facility] Comment on above: Performed By: #### 6 30-4 ####[facility] ([id number])[address] [facility] [address] [place] [address] US OB 14+ WEEKS ANATOMY SCAN on [...] II, MD, PHD at 28-Jul-2024 09:45:45 PM [facility] Normal Not Available Comment on above: Order Comment: US OB ANATOMY SINGLE W US OB CERVICAL LENGTH Estimated Date of Delivery: 11/24/24 Gestational Age as of 07/16/2024: 21w2d AFP panelon 07-27-2024 AFP SINGLE MARKER SCRN, MATERNAL, SERUM SEE COMMENTS 07/29/2024 03:00 PM Normal [facility] Comment on above: Result Comment: NOTE Test Result Flag Unit RefValue AFP Single Marker SCRN, Maternal, S Results Summary Normal risk Neural tube defect risk estimate 200 AFP 124.0 ng/mL AFP MoM 1.51 MoM [...] repeat testing Initial testing Physician Phone Number [phone] GENERAL TEST INFORMATION See Note This screening [...] developed and its performance characteristics determined by [facility] in a manner consistent with CLIA requirements. This test has not been cleared or approved by the U.S. Food and Drug Administration. Test Performed by: [facility] [address] [place] [address] Simulation Technician: Gamaliel Au Ph.D.; CLIA# [id number] Performed By: #### V PPCR #### [facility] ([id number]) [address] [place] [address] CBC AND AUTO DIFFon 07-28-19 ABSOLUTE BASOPHIL 0.0 X10E9/L Normal 0.0-0.2 [facility] Comment on above: Performed By: #### V PPCR #### [facility] ([id number]) [address], [address] [place] [address] ABSOLUTE NEUTROPHIL 7.7 X10E9/L High 1.5-6.6 [facility] Comment on above: Performed By: #### V PPCR #### [facility] ([id number]) [address], [address] [place] [address] Basophils/100 WBC (Bld) 0.2 % Normal P [facility] Comment on above: Performed By: #### V PPCR #### [facility] ([id number]) [address], [address] [place] [address] Eosinophils (Bld) [#/Vol] 0.0 10*3/uL Normal 0.0-0.4 [facility] Comment on above: Performed By: #### V PPCR #### [facility] ([id number]) [address], [address] [place] [address] Eosinophils/100 WBC (Bld) 0.3 % Normal [facility] Comment on above: Performed By: #### V PPCR #### [facility] ([id number]) [address], [address] [place] [address] Erythrocyte distribution width (RBC) [Ratio] 14.1 % Normal 11.5-15.0 [facility] Comment on above: Performed By: #### V PPCR #### [facility] ([id number]) [address], [address] [place] [address] Hematocrit (Bld) [Volume fraction] 34.7 % Low 35-47 [facility] Comment on above: Performed By: #### V PPCR #### [facility] ([id number]) [address], [address] [place] [address] Hemoglobin (Bld) [Mass/Vol] 12.1 g/dL Normal 11.7-15. 5 [facility] Comment on above: Performed By: #### V PPCR #### [facility] ([id number]) [address], [address] [place] [address] Lymphocytes (Bld) [#/Vol] 1.8 10*3/uL Normal 1.0-3.5 [facility] Comment on above: Performed By: #### V PPCR #### [facility] ([id number]) [address], [address] [place] [address] Lymphocytes/100 WBC (Bld) 18.5 % Normal [facility] Comment on above: Performed By: #### V PPCR #### [facility] ([id number]) [address], [address] [place] [address] MCH (RBC) [Entitic mass] 29.4 pg Normal 27-34 [facility] Comment on above: Performed By: #### V PPCR #### [facility] ([id number]) [address], [address] [place] [address] MCHC (RBC) [Mass/Vol] 34.7 g/dL Normal 32-36 [facility] Comment on above: Performed By: #### V PPCR #### [facility] ([id number]) [address], [address] [place] [address] MCV (RBC) [Entitic vol] 85 fL Normal 80-100 [facility] Comment on above: Performed By: #### V PPCR #### [facility] ([id number]) [address], [address] [place] [address] Monocytes (Bld) [#/Vol] 0.3 10*3/uL Normal 0-0.9 [facility] Comment on above: Performed By: #### V PPCR #### [facility] ([id number]) [address], [address] [place] [address] Monocytes/100 WBC (Bld) 3.2 % Normal P [facility] Comment on above: Performed By: #### V PPCR #### [facility] ([id number]) [address], [address] [place] [address] Neutrophils/100 WBC (Bld) 77.8 % Normal [facility] Comment on above: Performed By: #### V PPCR #### [facility] ([id number]) [address], [address] [place] [address] Platelet mean volume (Bld) [Entitic vol] 9.0 fL Normal 7-12 [facility] Comment on above: Performed By: #### V PPCR #### [facility] ([id number]) [address] [address] [place] [address] Platelets (Bld) [#/Vol] 258 10*3/uL Normal 150-450 [facility] Comment on above: Performed By: #### V PPCR #### [facility] ([id number]) [address], [address] [place] [address] RBC COUNT 4.10 X10E12/L Normal 3.80-5.20 [facility] Comment on above: Performed By: #### V PPCR #### [facility] ([id number]) [address], [address] [place] [address] WBC (Bld) [#/Vol] 9.9 10*3/uL Normal 4.0-11.0 [facility] Comment on above: Performed By: #### V PPCR #### [facility] ([id number]) [address], [address] [place] [address] DRUG SCREEN, URINEon 025 AMPHETAMINE/METHAMP Negative Normal NEG [facility] Comment on above: Result Comment: AMPH /METH screening cut off = 1000 ng/mL Performed By: #### V PPCR #### [facility] ([id number]) [address], [address] [place] [address] BARBITURATES Negative Normal NEG [facility] Comment on above: Result Comment: Jami iturates screening cut off value = 200 ng/mL Performed By: #### V PPCR #### [facility] ([id number]) [address], [address] [place] [address] BENZODIAZEPINES Negative Normal NEG [facility] Comment on above: Result Comment: Hunter odiazepines screening cut off value = 200 ng/mL Performed By: #### V PPCR #### [facility] ([id number]) [address], [address] [place] [address] CANNABINOIDS Negative Normal NEG [facility] Comment on above: Result Comment: Latha abinoids/THC screening cut off value = 50 ng/mL Performed By: #### V PPCR #### [facility] ([id number]) [address], [address] [place] [address] COCAINE METABOLITE Negative Normal NEG [facility] Comment on above: Result Comment: Coca ine screening cut off value = 300 ng/mL Performed By: #### V PPCR #### [facility] ([id number]) [address], [address] [place] [address] ECSTASY Negative Normal NEG [facility] Comment on above: Result Comment: Ecst asy screening cut off value = 500 ng/mL This report is intended for use in clinical monitoring or management of patients. Performed By: #### V PPCR #### [facility] ([id number]) [address], [address] [place] [address] METHADONE Negative Normal NEG [facility] Comment on above: Result Comment: Meth adone screening cut off value = 300 ng/mL. Performed By: #### V PPCR #### [facility] ([id number]) [address] [place] [address], [facility] [address] [place] [address] OPIATES Negative Normal NEG [facility] Comment on above: Result Comment: Opia olivia screening cut off value = 300 ng/mL NOTE: This test is used for the detection of codeine, hydrocodone (>1000 ng/mL), morphine and hydromorphone (>900 ng/mL) in urine. Performed By: #### V PPCR #### [facility] ([id number]) [address] [place] [address] OXYCODONE Negative Normal NEG [facility] Comment on above: Result Comment: Oxyc odone screening cut off value = 300 ng/mL NOTE: This test is used for the detection of oxycodone and oxymorphone in urine. Performed By: #### V PPCR #### [facility] ([id number]) [address] [place] [address] PHENCYCLIDINE Negative Normal NEG [facility] Comment on above: Result Comment: Phen cyclidine screening cut off value = 25 ng/mL Performed By: #### V PPCR #### [facility] ([id number]) [address] [place] [address] HBV surface Ag IA [facility] 07-27 HEPATITIS B SURF AG Non-Reactive Normal NRCT [facility] Comment on above: Result Comment: NEW TEST METHOD Performed By: #### V PPCR #### [facility] ([id number]) [address] [place] [address] HCV Ab IA [facility] 07-27-2024 ANTI HCV W/PCR REFLX Non-Reactive Normal NRCT [facility] Comment on above: Result Comment: NEW TEST METHOD NOTE If recent infection suspected, recommend repeat testing (>2 months). Btlqnt-ft-fgjznh ratio is <1.00. Performed By: #### V PPCR #### [facility] ([id number]) [address] [place] [address] HGB A1C (GLYCO-HGB)on 2024 Glucose [Mass/Vol] 85 mg/dL Normal [facility] Comment on above: Performed By: #### V PPCR #### [facility] ([id number]) [address] [place] [address], [facility] [address] [place] [address] HbA1c (Bld) [Mass fraction] 4.6 % Normal 4.4-5.6 [facility] Comment on above: Result Comment: NOTE ADA Guidelines Result HgbA1c Normal : less than 5.7 % Prediabetes : 5.7 % to 6.4 % Diabetes : > 6.4 % Use with caution in patients with abnormal hemoglobin variants as the half-life of red blood cells and in vivo glycation rates are affected. Performed By: #### V PPCR #### [facility] ([id number]) [address] [place] [address], [address] [address] Rubella virus IgG Qn (S)on 0 07-27-2024 RUBELLA IgG 15 IU/mL Normal [facility] Comment on above: Result Comment: Interpretation-------- <8 NEGATIVE-considered Not Immune 8-9 EQUIVOCAL-consider retesting with new specimen >9 POSITIVE-considered Immune Performed By: #### V PPCR #### [facility] ([id number]) [address] [place] [address] T. pallidum IgG+IgM IA Ql (S )on 07-27-2024 Syphilis Total <0.2 Normal 0.0-0.8 [facility] Comment on above: Result Comment: NON REACTIVE No serologic evidence of infection to Treponema pallidum (syphilis). Repeat testing may be considered in patients with suspected acute or primary syphilis in 2 to 4 weeks. Performed By: #### V PPCR #### [facility] ([id number]) [address], [address] [place] [address] TSH Qnon 07-27-2024 TSH 1.68 uIU/mL Normal 0.49-4.67 [facility] Comment on above: Performed By: #### V PPCR #### [facility] ([id number]) [address] [place] [address], [address] [place] [address] URINALYSISon 07-12-2024 Bilirubin Ql (U) Negative Normal NEG [facility] Comment on above: Performed By: #### V PPCR #### [facility] ([id number]) [address] [place] [address], [address] [place] [address] BLOOD/HGB Negative Normal NEG [facility] Comment on above: Performed By: #### V PPCR #### [facility] ([id number]) [address] [place] [address], [address] [place] [address] Color (U) YELLOW Normal YELLOW [facility] Comment on above: Performed By: #### V PPCR #### [facility] ([id number]) [address] [place] [address], [address] [place] [address] Glucose Ql (U) Negative Normal NEG [facility] Comment on above: Performed By: #### V PPCR #### [facility] ([id number]) [address] [place] [address], [address] [place] [address] Ketones Ql (U) Negative Normal NEG [facility] Comment on above: Performed By: #### V PPCR #### [facility] ([id number]) [address] [place] [address], [address] [place] [address] Leukocyte esterase Test stri p Ql (U) MODERATE Abnormal NEG [facility] Comment on above: Performed By: #### V PPCR #### [facility] ([id number]) [address] [place] [address], [address] [place] [address] Nitrite Ql (U) Negative Normal NEG [facility] Comment on above: Performed By: #### V PPCR #### [facility] ([id number]) [address], [address] [place] [address] pH (U) 7.0 [pH] Normal 5.0-8.5 [facility] Comment on above: Performed By: #### V PPCR #### [facility] ([id number]) [address], [address] [place] [address] Protein Ql (U) Negative Normal NEG [facility] Comment on above: Performed By: #### V PPCR #### [facility] ([id number]) [address], [address] [place] [address] R.B.CELLS 5 /hpf Normal 0-5 [facility] Comment on above: Performed By: #### V PPCR #### [facility] ([id number]) [address], [address] [place] [address] Specific gravity (U) [Rel density] 1.025 Normal 1.003-1.03 5 [facility] Comment on above: Performed By: #### V PPCR #### [facility] ([id number]) [address], [address] [place] [address] SQUAMOUS EPITHELIUM 40 /hpf High 0-5 [facility] Comment on above: Performed By: #### V PPCR #### [facility] ([id number]) [address], [address] [place] [address] TURBIDITY HAZY Abnormal CLEAR [facility] Comment on above: Performed By: #### V PPCR #### [facility] ([id number]) [address], [address] [place] [address] Urobilinogen Qn (U) 0.2 {Krishna'U}/dL Normal <1.1 [facility] Comment on above: Performed By: #### V PPCR #### [facility] ([id number]) [address] [place] [address] W.B.CELLS 18 /hpf High 0-5 [facility] Comment on above: Performed By: #### V PPCR #### [facility] ([id number]) [address], [address] [place] [address] US PREG TRANSABD FU PER FETU on [...] Shah MD on 07/07/2024 2:54 PM Normal [facility] RAPID STREP SCR NURSINGon S. pyogenes Ag EIA Ql (Throat) Positive Abnormal NEG [facility] Comment on above: Performed By: #### C GS #### [facility] ([id number]) [address] [place] [address], [address] [place] [address] SARS/FLU A+B/RSV by NAAT/Mol ecularon 06-25-2024 SARS/FLU [...] operators who are performing tests using either GenenewMentor DX or GeneSheZoomity systems and is limited to laboratories that [...] specimen repeat. Fact Sheet for Healthcare Providers: https://www.fda.Simple Tithe/Feedlooks/011286/jerrod nload Fact Sheet for Patients: https://www.untapt.Goldcoll [employer] v/Feedlooks/227692/jerrod nload Normal [facility] Comment on above: Performed By: #### C GS #### [facility] ([id number]) [address], [address] [place] [address] BASIC METABOLIC PANLon 05-15 Anion gap [Moles/Vol] 6 mmol/L Normal 5-15 [facility] Comment on above: Performed By: #### C GS #### [facility] ([id number]) [address], [address] [place] [address] Calcium [Mass/Vol] 9.8 mg/dL Normal 8.5-10.5 [facility] Comment on above: Performed By: #### C GS #### [facility] ([id number]) [address], [address] [place] [address] Chloride [Moles/Vol] 105 mmol/L Normal 98-109 [facility] Comment on above: Performed By: #### C GS #### [facility] ([id number]) [address], [address] [place] [address] CO2 [Moles/Vol] 23 mmol/L Normal 22-32 [facility] Comment on above: Performed By: #### C GS #### [facility] ([id number]) [address], [address] [place] [address] Creatinine [Mass/Vol] 0.56 mg/dL Normal 0.40-1.00 [facility] Comment on above: Result Comment: METH OD TRACEABLE TO IDMS STANDARD Performed By: #### C GS #### [facility] ([id number]) [address], [address] [place] [address] eGFR (CKD-EPI) NON-RACE DEPENDENT >90 Normal >59 [facility] Comment on above: Result Comment: Reported eGFR is based on the CKD-EPI 2020 equation that does not use a race coefficient. Performed By: #### C GS #### [facility] ([id number]) [address] [place] [address] Glucose [Mass/Vol] 88 mg/dL Normal 65-99 [facility] Comment on above: Performed By: #### C GS #### [facility] ([id number]) [address] [place] [address] Potassium [Moles/Vol] 3.9 mmol/L Normal 3.5-5.0 [facility] Comment on above: Performed By: #### C GS #### [facility] ([id number]) [address] [place] [address] Sodium [Moles/Vol] 134 mmol/L Normal 134-146 [facility] Comment on above: Performed By: #### C GS #### [facility] ([id number]) [address] [address] [place] [address] Urea nitrogen [Mass/Vol] 8 mg/dL Normal 5-23 [facility] Comment on above: Performed By: #### C GS #### [facility] ([id number]) [address] [address] [place] [address] CBC AND AUTO DIFFon 05-15-19 25 ABSOLUTE BASOPHIL 0.0 X10E9/L Normal 0.0-0.2 [facility] Comment on above: Performed By: #### C GS #### [facility] ([id number]) [address] [place] [address] ABSOLUTE NEUTROPHIL 6.6 X10E9/L Normal 1.5-6.6 [facility] Comment on above: Performed By: #### C GS #### [facility] ([id number]) [address], [address] [place] [address] Basophils/100 WBC (Bld) 0.5 % Normal [facility] Comment on above: Performed By: #### C GS #### [facility] ([id number]) [address], [address] [place] [address] Eosinophils (Bld) [#/Vol] 0.0 10*3/uL Normal 0.0-0.4 [facility] Comment on above: Performed By: #### C GS #### [facility] ([id number]) [address], [address] [place] [address] Eosinophils/100 WBC (Bld) 0.4 % Normal [facility] Comment on above: Performed By: #### C GS #### [facility] ([id number]) [address], [address] [place] [address] Erythrocyte distribution width (RBC) [Ratio] 14.2 % Normal 11.5-15.0 [facility] Comment on above: Performed By: #### C GS #### [facility] ([id number]) [address], [address] [place] [address] Hematocrit (Bld) [Volume fraction] 37.8 % Normal 35-47 [facility] Comment on above: Performed By: #### C GS #### [facility] ([id number]) [address], [address] [place] [address] Hemoglobin (Bld) [Mass/Vol] 13.0 g/dL Normal 11.7-15. 5 [facility] Comment on above: Performed By: #### C GS #### [facility] ([id number]) [address], [address] [place] [address] Lymphocytes (Bld) [#/Vol] 1.8 10*3/uL Normal 1.0-3.5 [facility] Comment on above: Performed By: #### C GS #### [facility] ([id number]) [address], [address] [place] [address] Lymphocytes/100 WBC (Bld) 20.4 % Normal [facility] Comment on above: Performed By: #### C GS #### [facility] ([id number]) [address], [address] [place] [address] MCH (RBC) [Entitic mass] 27.8 pg Normal 27-34 [facility] Comment on above: Performed By: #### C GS #### [facility] ([id number]) [address], [address] [place] [address] MCHC (RBC) [Mass/Vol] 34.3 g/dL Normal 32-36 [facility] Comment on above: Performed By: #### C GS #### [facility] ([id number]) [address], [address] [place] [address] MCV (RBC) [Entitic vol] 81 fL Normal 80-100 [facility] Comment on above: Performed By: #### C GS #### [facility] ([id number]) [address], [address] [place] [address] Monocytes (Bld) [#/Vol] 0.4 10*3/uL Normal 0-0.9 [facility] Comment on above: Performed By: #### C GS #### [facility] ([id number]) [address] [address] [place] [address] Monocytes/100 WBC (Bld) 4.2 % Normal [facility] Comment on above: Performed By: #### C GS #### [facility] ([id number]) [address] [address] [place] [address] Neutrophils/100 WBC (Bld) 74.5 % Normal [facility] Comment on above: Performed By: #### C GS #### [facility] ([id number]) [address] [address] Platelet mean volume (Bld) [Entitic vol] 9.1 fL Normal 7-12 [facility] Comment on above: Performed By: #### C GS #### [facility] ([id number]) [address] [address] Platelets (Bld) [#/Vol] 269 10*3/uL Normal 150-450 [facility] Comment on above: Performed By: #### C GS #### [facility] ([id number]) [address] [address] RBC COUNT 4.66 X10E12/L Normal 3.80-5.20 [facility] Comment on above: Performed By: #### C GS #### [facility] ([id number]) [address] [address] WBC (Bld) [#/Vol] 8.8 10*3/uL Normal 4.0-11.0 [facility] Comment on above: Performed By: #### C GS #### [facility] ([id number]) [address] [address] CHLAMYDIA/GC BY PCRon 2024 CHLAMYDIA/GC BY PCR [...] are dependent on adequate specimen collection. Normal [facility] Comment on above: Performed By: #### Ann-Marie WILDER #### [facility] ([id number]) [address] [place] [address] HCG ( test) Ql (U)o n 05-15-2024 Beta HCG ( test) Ql (U) Positive Abnormal NEG [facility] Comment on above: Performed By: #### Hannah JARAMILLO #### [facility] ([id number]) [address] [place] [address], [place] [address] HCG.beta subunit IA 3rd IS Q non 05-15-2024 HCG.beta subunit Qn [id number] m[IU]/mL Normal [facility] Comment on above: Result Comment: NEW [...] or nontrophoblastic neoplasms. Performed By: #### C MEÑO #### [facility] ([id number]) [address] [place] [address] URINE CULTUREon 05-15-2024 Bacteria identified Cx Nom (U) CULTURE RESULTS >100,000 ORGANISMS/ML NORMAL UROGENITAL ALEX Normal [facility] Comment on above: Performed By: #### Ann-Marie WILDER #### [facility] ([id number]) [address] [facility], [address] [place] [address] URN MACROSCOPIC NURon 2024 BILIRUBIN ELOISA Negative Normal NEG [facility] Comment on above: Performed By: #### D JARAMILLO #### [facility] ([id number]) [address] [place] [address] BLOOD/HGB ELOISA Negative Normal NEG [facility] Comment on above: Performed By: #### D JARAMILLO #### [facility] ([id number]) [address] [place] [address] GLUCOSE ELOISA Negative Normal NEG [facility] Comment on above: Performed By: #### D JARAMILLO #### [facility] ([id number]) [address] [place] [address] KETONES ELOISA Negative Normal NEG [facility] Comment on above: Performed By: #### D JARAMILLO #### [facility] ([id number]) [address] [place] [address] LEUKOCYTE ESTERASE ELOISA Large Abnormal NEG [facility] Comment on above: Performed By: #### D JARAMILLO #### [facility] ([id number]) [address] [place] [address] NITRITE ELOISA Negative Normal NEG [facility] Comment on above: Performed By: #### D JARAMILLO #### [facility] ([id number]) [address] [place] [address] [place] [address] PH ELOISA 6.0 Normal 5.0-8.5 [facility] Comment on above: Performed By: #### D JARAMILLO #### [facility] ([id number]) [address] [place] [address] PROTEIN ELOISA Negative Normal NEG [facility] Comment on above: Performed By: #### D JARAMILLO #### [facility] ([id number]) [address] [place] [address] [place] [address] SPECIFIC GRAVITY ELOISA >=1.030 Normal 1.003-1 .03 5 [facility] Comment on above: Performed By: #### D JARAMILLO #### [facility] ([id number]) [address], [place] [address] UROBILINOGEN ELOISA 1.0 eu/dL Normal <1.1 [facility] Comment on above: Performed By: #### D JARAMILLO #### [facility] ([id number]) [address] [facility], [place] [address] US PREG LESS THAN 14 WKS SIN GLEon 05-15-2024 US PREG LESS THAN 14 WKS SINGLE US PREG LESS THAN 14 WKS SINGLE US PREG LESS THAN 14 WKS SINGLE: 05/15/2024 3:42 PM Clinical: Bleeding in early . Real-time transabdominal sonography pelvis performed.. No comparison. There is a single intrauterine with cardiac activity 152 beats per minute. [place]-rump length of 5.9 cm corresponds to 12 week 3 day gestation. Amount amniotic fluid is normal. Placenta not well seen due to early gestational age. Maternal ovaries are unremarkable. No cul-de-sac fluid seen. Impression: * Single intrauterine 12 week 3 day gestation with cardiac activity. * Ultrasound KARTIK 11/24/2024. 58 Finalized by Fernandez Hernandez MD on 05/15/2024 4:06 PM Normal [facility] VAGINITIS PANEL PCRon 2024 VAGINITIS PANEL [...] clinical presentation to determine patient diagnosis. Normal [facility] Comment on above: Performed By: #### C GS #### [facility] ([id number]) [address], [address] [place] [address] XR CHEST 2 VWSon 03-15-2024 XR CHEST 2 VWS XR CHEST 2 VWS XR CHEST 2 VWS INDICATION: Persistent cough COMPARISON: X-ray 06/23/2022 FINDINGS: Cardiomediastinal silhouette and pulmonary vasculature are within normal limits. Lungs and pleural space are clear. There is no pleural effusion or pneumothorax. IMPRESSION: No acute cardiopulmonary process. 32 Finalized by Ravinder Roca on 03/15/2024 3:56 PM Normal [facility] CBC AND AUTO DIFFon 11-27-19 ABSOLUTE BASOPHIL 0.0 X10E9/L Normal 0.0-0.2 [facility] Comment on above: Performed By: #### D JARAMILLO #### [facility] ([id number]) [address] [place] [address]10 ABSOLUTE NEUTROPHIL 6.4 X10E9/L Normal 1.5-6.6 [facility] Comment on above: Performed By: #### D JARAMILLO #### [facility] ([id number]) [address] [place] [address] 98487 Basophils/100 WBC (Bld) 0.2 % Normal P [facility] Comment on above: Performed By: #### D JARAMILLO #### [facility] ([id number]) [address] [place] [address]471 Eosinophils (Bld) [#/Vol] 0.0 10*3/uL Normal 0.0-0.4 [facility] Comment on above: Performed By: #### D JARAMILLO #### [facility] ([id number]) [address] [place] [address] Eosinophils/100 WBC (Bld) 0.3 % Normal [facility] Comment on above: Performed By: #### D JARAMILLO #### [facility] ([id number]) [address] [place] [address] Erythrocyte distribution width (RBC) [Ratio] 13.9 % Normal 11.5-15.0 [facility] Comment on above: Performed By: #### D JARAMILLO #### [facility] ([id number]) [address] [place] [address]7890 Hematocrit (Bld) [Volume fraction] 31.9 % Low 35-47 [facility] Comment on above: Performed By: #### D JARAMILLO #### [facility] ([id number]) [address] [place] [address] 76869 Hemoglobin (Bld) [Mass/Vol] 11.0 g/dL Low 11.7-15. 5 [facility] Comment on above: Performed By: #### D JARAMILLO #### [facility] ([id number]) [address] [place] [address] 79756 Lymphocytes (Bld) [#/Vol] 2.0 10*3/uL Normal 1.0-3.5 [facility] Comment on above: Performed By: #### D JARAMILLO #### [facility] ([id number]) [address] [place] [address] 30528 Lymphocytes/100 WBC (Bld) 21.9 % Normal [facility] Comment on above: Performed By: #### D JARAMILLO #### [facility] ([id number]) [address] [place] [address] 65961 MCH (RBC) [Entitic mass] 29.5 pg Normal 27-34 [facility] Comment on above: Performed By: #### D JARAMILLO #### [facility] ([id number]) [address] [place] [address] 75777 MCHC (RBC) [Mass/Vol] 34.4 g/dL Normal 32-36 [facility] Comment on above: Performed By: #### D JARAMILLO #### [facility] ([id number]) [address] [place] [address] 79960 MCV (RBC) [Entitic vol] 86 fL Normal 80-100 [facility] Comment on above: Performed By: #### D JARAMILLO #### [facility] ([id number]) [address] [place] [address] 19296 Monocytes (Bld) [#/Vol] 0.6 10*3/uL Normal 0-0.9 [facility] Comment on above: Performed By: #### D JARAMILLO #### [facility] ([id number]) [address] [place] [address] 65262 Monocytes/100 WBC (Bld) 6.8 % Normal [facility] Comment on above: Performed By: #### D JARAMILLO #### [facility] ([id number]) [address] [place] [address] 94257 Neutrophils/100 WBC (Bld) 70.8 % Normal [facility] Comment on above: Performed By: #### D JARAMILLO #### [facility] ([id number]) [address] [place] [address] 42080 Platelet mean volume (Bld) [Entitic vol] 8.6 fL Normal 7-12 [facility] Comment on above: Performed By: #### D JARAMILLO #### [facility] ([id number]) [address] [place] [address] 65104 Platelets (Bld) [#/Vol] 205 10*3/uL Normal 150-450 [facility] Comment on above: Performed By: #### D JARAMILLO #### [facility] ([id number]) [address] [place] [address] 09939 RBC COUNT 3.72 X10E12/L Low 3.80-5.20 [facility] Comment on above: Performed By: #### D JARAMILLO #### [facility] ([id number]) [address] [place] [address] 18198 WBC (Bld) [#/Vol] 9.0 10*3/uL Normal 4.0-11.0 [facility] Comment on above: Performed By: #### D JARAMILLO #### [facility] ([id number]) [address] [place] [address] 67002 COMPREHENSIVE METABOLIC PANE Steven 11-27-2023 Albumin [Mass/Vol] 3.0 g/dL Low 3.2-5.3 [facility] Comment on above: Performed By: #### D JARAMILLO #### [facility] ([id number]) [address] [place] [address] 67744 ALP [Catalytic activity/Vol] 149 U/L High 39-130 [facility] Comment on above: Performed By: #### D JARAMILLO #### [facility] ([id number]) [address] [place] [address] 14727 ALT [Catalytic activity/Vol] 13 U/L Normal 0-31 [facility] Comment on above: Performed By: #### D JARAMILLO #### [facility] ([id number]) [address] [place] [address] 58381 Anion gap [Moles/Vol] 6 mmol/L Normal 5-15 [facility] Comment on above: Performed By: #### D JARAMILLO #### [facility] ([id number]) [address] [place] [address] 53913 AST [Catalytic activity/Vol] 16 U/L Normal 0-41 [facility] Comment on above: Performed By: #### D JARAMILLO #### [facility] ([id number]) [address] [place] [address] 74277 Bilirubin [Mass/Vol] 0.6 mg/dL Normal 0.3-1.2 [facility] Comment on above: Performed By: #### D JARAMILLO #### [facility] ([id number]) [address] [place] [address] 53518 Calcium [Mass/Vol] 8.4 mg/dL Low 8.5-10.5 [facility] Comment on above: Performed By: #### D JARAMILLO #### [facility] ([id number]) [address] [place] [address] 08296 Chloride [Moles/Vol] 106 mmol/L Normal 98-109 [facility] Comment on above: Performed By: #### D JARAMILLO #### [facility] ([id number]) [address] [place] [address] 89245 CO2 [Moles/Vol] 23 mmol/L Normal 22-32 [facility] Comment on above: Performed By: #### D JARAMILLO #### [facility] ([id number]) [address] [place] [address] 55699 Creatinine [Mass/Vol] 0.51 mg/dL Normal 0.40-1.00 [facility] Comment on above: Result Comment: METH OD TRACEABLE TO IDMS STANDARD Performed By: #### D JARAMILLO #### [facility] ([id number]) [address] [place] [address] [place] [address] eGFR (CKD-EPI) NON-RACE DEPENDENT >90 Normal >59 [facility] Comment on above: Result Comment: Reported eGFR is based on the CKD-EPI 1 equation that does not use a race coefficient. Performed By: #### D JARAMILLO #### [facility] ([id number]) [address] [place] [address] 41570 Glucose [Mass/Vol] 82 mg/dL Normal 65-99 [facility] Comment on above: Performed By: #### D JARAMILLO #### [facility] ([id number]) [address] [place] [address], [place] [address] Potassium [Moles/Vol] 3.8 mmol/L Normal 3.5-5.0 [facility] Comment on above: Performed By: #### D JARAMILLO #### [facility] ([id number]) [address] [place] [address], [place] [address] Protein [Mass/Vol] 6.7 g/dL Normal 6.0-8.0 [facility] Comment on above: Performed By: #### D JARAMILLO #### [facility] ([id number]) [address] [place] [address] 26756 Sodium [Moles/Vol] 135 mmol/L Normal 134-146 [facility] Comment on above: Performed By: #### D JARAMILLO #### [facility] ([id number]) [address] [place] [address] 65016 Urea nitrogen [Mass/Vol] 5 mg/dL Normal 5-23 [facility] Comment on above: Performed By: #### D JARAMILLO #### [facility] ([id number]) [address] [place] [address] [place] [address] LDH [Catalytic activity/Vol] on 11-27-2023 LDH 68 U/L Low 100-235 [facility] Comment on above: Performed By: #### D JARAMILLO #### [facility] ([id number]) [address] [place] [address] [place] [address] PROTEIN CREAT RATIOon 2023 RANDOM URINE PROTEIN 150 mg/L High <120 [facility] Comment on above: Performed By: #### D JARAMILLO #### [facility] ([id number]) [address] [place] [address] 74871 U/PRO/REDEYE GUNNER RATIO CALC 0.12 Normal <0.2 [facility] Comment on above: Result Comment: Neph rotic Syndrome is associated with ratios >3.5 Performed By: #### D JARAMILLO #### [facility] ([id number]) [address] [place] [address] 57923 URINE CREATININE,RDM 128.08 mg/dL Normal [facility] Comment on above: Performed By: #### D JARAMILLO #### [facility] ([id number]) [address] [place] [address] 16680 URIC ACIDon 11-27-2023 Urate [Mass/Vol] 3.6 mg/dL Normal 2.6-7.2 [facility] Comment on above: Performed By: #### D JARAMILLO #### [facility] ([id number]) [address] [place] [address] 17966 CHLAMYDIA/GC BY PCRon 2023 CHLAMYDIA/GC BY PCR [...] are dependent on adequate specimen collection. Normal [facility] Comment on above: Performed By: #### C GS #### [facility] ([id number]) [address] [place] [address], [address] [place] [address] DRUG SCREEN, URINEon 024 AMPHETAMINE/METHAMP Negative Normal NEG [facility] Comment on above: Result Comment: AMPH /METH screening cut off = 1000 ng/mL Performed By: #### D JARAMILLO #### [facility] ([id number]) [address] [place] [address] 72000 BARBITURATES Negative Normal NEG [facility] Comment on above: Result Comment: Jami iturates screening cut off value = 200 ng/mL Performed By: #### D JARAMILLO #### [facility] ([id number]) [address] [place] [address] 31324 BENZODIAZEPINES Negative Normal [facility] Comment on above: Result Comment: Hunter odiazepines screening cut off value = 200 ng/mL Performed By: #### D JARAMILLO #### [facility] ([id number]) [address] [place] [address] 15664 CANNABINOIDS Negative Normal [facility] Comment on above: Result Comment: Latha abinoids/THC screening cut off value = 50 ng/mL Performed By: #### D JARAMILLO #### [facility] ([id number]) [address] [place] [address] 48474 COCAINE METABOLITE Negative Normal [facility] Comment on above: Result Comment: Coca ine screening cut off value = 300 ng/mL Performed By: #### D JARAMILLO #### [facility] ([id number]) [address] [place] [address] 57092 ECSTASY Negative Normal [facility] Comment on above: Result Comment: Ecst asy screening cut off value = 500 ng/mL This report is intended for use in clinical monitoring or management of patients. Performed By: #### D JARAMILLO #### [facility] ([id number]) [address] [place] [address] 77336 METHADONE Negative Normal [facility] Comment on above: Result Comment: Meth adone screening cut off value = 300 ng/mL. Performed By: #### D JARAMILLO #### [facility] ([id number]) [address] [place] [address] 70984 OPIATES Negative Normal [facility] Comment on above: Result Comment: Opia olivia screening cut off value = 300 ng/mL NOTE: This test is used for the detection of codeine, hydrocodone (>1000 ng/mL), morphine and hydromorphone (>900 ng/mL) in urine. Performed By: #### D JARAMILLO #### [facility] ([id number]) [address] [place] [address] 44268 OXYCODONE Negative Normal NEG [facility] Comment on above: Result Comment: Oxyc odone screening cut off value = 300 ng/mL NOTE: This test is used for the detection of oxycodone and oxymorphone in urine. Performed By: #### D JARAMILLO #### [facility] ([id number]) [address] [place] [address] 67221 PHENCYCLIDINE Negative Normal NEG [facility] Comment on above: Result Comment: Phen cyclidine screening cut off value = 25 ng/mL Performed By: #### D JARAMILLO #### [facility] ([id number]) [address] [place] [address] 42817 Fibronectin. Ql (Vag fl d)on 11-17-2023 FIBRONECTIN Negative Normal NEG [facility] Comment on above: Performed By: #### V PPCR #### [facility] ([id number]) [address] [place] [address], [address] [place] [address] #### [id number] #### [facility] ([id number]) [address] [place] [address] 92456 STREP B SCREEN CULTUREon S. agalactiae Org specific c x Ql (Vag+Rectum) CULTURE RESULTS NEGATIVE FOR GROUP B STREPTOCOCCUS BY NUCLEIC ACID AMPLIFICATION Normal [facility] Comment on above: Performed By: #### D JARAMILLO #### [facility] ([id number]) [address] [place] [address] 00312 URINALYSISon 11-17-2023 Bilirubin Ql (U) SMALL Abnormal NEG [facility] Comment on above: Result Comment: Not confirmed, interpret positive results with caution. Performed By: #### U A #### [facility] ([id number]) [address] [place] [address] 48670 BLOOD/HGB Negative Normal NEG [facility] Comment on above: Performed By: #### U A #### [facility] ([id number]) [address] [place] [address] 42597 Color (U) YELLOW Normal YELLOW [facility] Comment on above: Performed By: #### U A #### [facility] ([id number]) [address] [place] [address] 03475 Glucose Ql (U) Negative Normal NEG [facility] Comment on above: Performed By: #### U A #### [facility] ([id number]) [address] [place] [address] 67069 Ketones Ql (U) >80 Abnormal NEG [facility] Comment on above: Performed By: #### U A #### [facility] ([id number]) [address] [place] [address] 95248 Leukocyte esterase Test stri p Ql (U) MODERATE Abnormal NEG [facility] Comment on above: Performed By: #### U A #### [facility] ([id number]) [address] [place] [address] 59820 Nitrite Ql (U) Negative Normal NEG [facility] Comment on above: Performed By: #### U A #### [facility] ([id number]) [address] [place] [address] 79141 pH (U) 6.0 [pH] Normal 5.0-8.5 [facility] Comment on above: Performed By: #### U A #### [facility] ([id number]) [address] [place] [address] 37918 Protein Ql (U) 30 mg/dL Abnormal NEG [facility] Comment on above: Performed By: #### U A #### [facility] ([id number]) [address] [place] [address] [place] [address] R.B.CELLS 0 /hpf Normal 0-5 [facility] Comment on above: Performed By: #### U A #### [facility] ([id number]) [address] [place] [address] [place] [address] Specific gravity (U) [Rel density] >1.030 Normal 1.003-1.03 5 [facility] Comment on above: Performed By: #### U A #### [facility] ([id number]) [address] [place] [address] 93275 SQUAMOUS EPITHELIUM 13 /hpf High 0-5 [facility] Comment on above: Performed By: #### U A #### [facility] ([id number]) [address] [place] [address] 60841 TURBIDITY CLEAR Normal CLEAR [facility] Comment on above: Performed By: #### U A #### [facility] ([id number]) [address] [place] [address] 15756 Urobilinogen Qn (U) 1.0 {Krishna'U}/dL Normal <1.1 [facility] Comment on above: Performed By: #### U A #### [facility] ([id number]) [address] [place] [address] 02724 W.B.CELLS 9 /hpf High 0-5 [facility] Comment on above: Performed By: #### U A #### [facility] ([id number]) [address] [place] [address] 73263 URINE CULTUREon 11-17-2023 Bacteria identified Cx Nom (U) CULTURE RESULTS >100,000 ORGANISMS/ML NORMAL UROGENITAL ALEX Normal [facility] Comment on above: Performed By: #### D JARAMILLO #### [facility] ([id number]) [address] [place] [address] 18906 VAGINITIS PANEL PCRon 2023 VAGINITIS PANEL PCR [...] with clinical presentation to determine patient diagnosis. [facility] Comment on above: Performed By: #### V PPCR #### [facility] ([id number]) [address] [place] [address] [address] [place] [address] #### 84905-2 #### [facility] ([id number]) [address] [place] [address], [place] [address] US BIOPHYSICAL PROFILE FET W O NSTon [...] Danny Mcdonough MD on 10/22/2023 5:06 AM [facility] CHLAMYDIA/GC BY PCRon 2023 CHLAMYDIA/GC [...] results are dependent on adequate specimen collection. [facility] Comment on above: Performed By: #### C GS #### [facility] ([id number]) [address] [place] [address], [address] [place] [address] DRUG SCREEN, URINEon 024 AMPHETAMINE/METHAMP Negative Normal NEG [facility] Comment on above: Result Comment: AMPH /METH screening cut off = 1000 ng/mL Performed By: #### D JARAMILLO #### [facility] ([id number]) [address] [place] [address] 47604 BARBITURATES Negative Normal NEG [facility] Comment on above: Result Comment: Jami iturates screening cut off value = 200 ng/mL Performed By: #### D JARAMILLO #### [facility] ([id number]) [address] [place] [address] 68725 BENZODIAZEPINES Negative Normal NEG [facility] Comment on above: Result Comment: Hunter odiazepines screening cut off value = 200 ng/mL Performed By: #### D JARAMILLO #### [facility] ([id number]) [address] [place] [address] 09110 CANNABINOIDS Negative Normal NEG [facility] Comment on above: Result Comment: Latha abinoids/THC screening cut off value = 50 ng/mL Performed By: #### D JARAMILLO #### [facility] ([id number]) [address] [place] [address] 13129 COCAINE METABOLITE Negative Normal NEG [facility] Comment on above: Result Comment: Coca ine screening cut off value = 300 ng/mL Performed By: #### D JARAMILLO #### [facility] ([id number]) [address] [place] [address] 37124 ECSTASY Negative Normal NEG [facility] Comment on above: Result Comment: Ecst asy screening cut off value = 500 ng/mL This report is intended for use in clinical monitoring or management of patients. Performed By: #### D JARAMILLO #### [facility] ([id number]) [address] [place] [address] 95990 METHADONE Negative Normal NEG [facility] Comment on above: Result Comment: Meth adone screening cut off value = 300 ng/mL. Performed By: #### D JARAMILLO #### [facility] ([id number]) [address] [place] [address] 97954 OPIATES Negative Normal [facility] Comment on above: Result Comment: Opia olivia screening cut off value = 300 ng/mL NOTE: This test is used for the detection of codeine, hydrocodone (>1000 ng/mL), morphine and hydromorphone (>900 ng/mL) in urine. Performed By: #### D JARAMILLO #### [facility] ([id number]) [address] [place] [address] 30362 OXYCODONE Negative Normal [facility] Comment on above: Result Comment: Oxyc odone screening cut off value = 300 ng/mL NOTE: This test is used for the detection of oxycodone and oxymorphone in urine. Performed By: #### D JARAMILLO #### [facility] ([id number]) [address] [place] [address] 66703 PHENCYCLIDINE Negative Normal [facility] Comment on above: Result Comment: Phen cyclidine screening cut off value = 25 ng/mL Performed By: #### D JARAMILLO #### [facility] ([id number]) [address] [place] [address] 35260 URINALYSISon 10-17-2023 Bilirubin Ql (U) Negative Normal [facility] Comment on above: Performed By: #### U A #### [facility] ([id number]) [address] [place] [address] [place] [address] BLOOD/HGB Negative Normal NEG [facility] Comment on above: Performed By: #### U A #### [facility] ([id number]) [address] [place] [address] [place] [address] [place] OXALATE CRYSTALS 4 Abnormal NONE [facility] Comment on above: Performed By: #### U A #### [facility] ([id number]) [address] [place] [address] 89411 Color (U) YELLOW Normal YELLOW [facility] Comment on above: Performed By: #### U A #### [facility] ([id number]) [address] [place] [address] 90515 Glucose Ql (U) Negative Normal NEG [facility] Comment on above: Performed By: #### U A #### [facility] ([id number]) [address] [place] [address] [place] [address] Ketones Ql (U) Trace Abnormal NEG [facility] Comment on above: Performed By: #### U A #### [facility] ([id number]) [address] [place] [address] [place] [address] Leukocyte esterase Test stri p Ql (U) SMALL Abnormal NEG [facility] Comment on above: Performed By: #### U A #### [facility] ([id number]) [address] [place] [address] [place] [address] Nitrite Ql (U) Negative Normal NEG [facility] Comment on above: Performed By: #### U A #### [facility] ([id number]) [address] [place] [address] [place] [address] pH (U) 6.5 [pH] Normal 5.0-8.5 [facility] Comment on above: Performed By: #### U A #### [facility] ([id number]) [address] [place] [address] 15179 Protein Ql (U) 30 mg/dL Abnormal NEG [facility] Comment on above: Performed By: #### U A #### [facility] ([id number]) [address] [place] [address] 34065 R.B.CELLS 6 /hpf High 0-5 [facility] Comment on above: Performed By: #### U A #### [facility] ([id number]) [address] [place] [address] [place] [address] Specific gravity (U) [Rel density] 1.025 Normal 1.003-1.[address] [place] [address] Comment on above: Performed By: #### U A #### [facility] ([id number]) [address] [place] [address] 38264 SQUAMOUS EPITHELIUM 10 /hpf High 0-5 [facility] Comment on above: Performed By: #### U A #### [facility] ([id number]) [address] [place] [address] 95334 TURBIDITY CLEAR Normal CLEAR [facility] Comment on above: Performed By: #### U A #### [facility] ([id number]) [address] [place] [address] 35600 Urobilinogen Qn (U) 2.0 {Krishna'U}/dL High <1.1 [facility] Comment on above: Performed By: #### U A #### [facility] ([id number]) [address] [place] [address] 45150 W.B.CELLS 30 /hpf High 0-5 [facility] Comment on above: Performed By: #### U A #### [facility] ([id number]) [address] [place] [address] 70203 VAGINITIS PANEL PCRon 2023 VAGINITIS PANEL PCR [...] clinical presentation to determine patient diagnosis. Normal [facility] Comment on above: Performed By: #### V PPCR #### [facility] ([id number]) [address] [place] [address], [address] [place] [address] CBC AND AUTO DIFFon 0515-20 24 ABSOLUTE BASOPHIL 0.0 X10E9/L Normal 0.0-0.2 [facility] Comment on above: Performed By: #### C OMID, 3040-3, CBCA #### [facility] ([id number]) [address] [place] [address] ABSOLUTE NEUTROPHIL 7.3 X10E9/L High 1.5-6.6 [facility] Comment on above: Performed By: #### C OMID, 3040-3, CBCA #### [facility] ([id number]) [address] [place] [address] Basophils/100 WBC (Bld) 0.3 % Normal [facility] Comment on above: Performed By: #### C OMID, 3040-3, CBCA #### [facility] ([id number]) [address] [place] [address] Eosinophils (Bld) [#/Vol] 0.0 10*3/uL Normal 0.0-0.4 [facility] Comment on above: Performed By: #### C OMID, 3039-07, CBCA #### [facility] ([id number]) [address] [place] [address] 80290 Eosinophils/100 WBC (Bld) 0.5 % Normal [facility] Comment on above: Performed By: #### C OMID, 3039-07, CBCA #### [facility] ([id number]) [address] [place] [address] 11711 Erythrocyte distribution width (RBC) [Ratio] 12.8 % Normal 11.5-15.0 [facility] Comment on above: Performed By: #### C OMID, 3039-07, CBCA #### [facility] ([id number]) [address] [place] [address] 64620 Hematocrit (Bld) [Volume fraction] 33.3 % Low 35-47 [facility] Comment on above: Performed By: #### C OMID, 3039-07, CBCA #### [facility] ([id number]) [address] [place] [address] 44476 Hemoglobin (Bld) [Mass/Vol] 12.0 g/dL Normal 11.7-15. 5 [facility] Comment on above: Performed By: #### C OMID, 3039-07, CBCA #### [facility] ([id number]) [address] [place] [address] 76205 Lymphocytes (Bld) [#/Vol] 2.0 10*3/uL Normal 1.0-3.5 [facility] Comment on above: Performed By: #### C OMID, 3039-07, CBCA #### [facility] ([id number]) [address] [place] [address] 13404 Lymphocytes/100 WBC (Bld) 20.3 % Normal [facility] Comment on above: Performed By: #### C OMID, 3039-07, CBCA #### [facility] ([id number]) [address] [place] [address] 62749 MCH (RBC) [Entitic mass] 30.8 pg Normal 27-34 [facility] Comment on above: Performed By: #### C OMID, 3039-3, CBCA #### [facility] ([id number]) [address] [place] [address] 34164 MCHC (RBC) [Mass/Vol] 36.0 g/dL Normal 32-36 [facility] Comment on above: Performed By: #### C OMID, 3039-07, CBCA #### [facility] ([id number]) [address] [place] [address] 08934 MCV (RBC) [Entitic vol] 85 fL Normal 80-100 P [facility] Comment on above: Performed By: #### C OMID, 3039-07, CBCA #### [facility] ([id number]) [address] [place] [address] 92529 Monocytes (Bld) [#/Vol] 0.5 10*3/uL Normal 0-0.9 [facility] Comment on above: Performed By: #### C OMID, 3039-07, CBCA #### [facility] ([id number]) [address] [place] [address] 90827 Monocytes/100 WBC (Bld) 5.2 % Normal [facility] Comment on above: Performed By: #### C OMID, 3039-07, CBCA #### [facility] ([id number]) [address] [place] [address] 96611 Neutrophils/100 WBC (Bld) 73.7 % Normal [facility] Comment on above: Performed By: #### C OMID, 0-3, CBCA #### [facility] ([id number]) [address] [place] [address] 27178 Platelet mean volume (Bld) [Entitic vol] 8.3 fL Normal 7-12 [facility] Comment on above: Performed By: #### C OMID, 3039-3, CBCA #### [facility] ([id number]) [address] [place] [address] 12388 Platelets (Bld) [#/Vol] 203 10*3/uL Normal 150-450 [facility] Comment on above: Performed By: #### C OMID, 3039-3, CBCA #### [facility] ([id number]) [address] [place], [place] [address] RBC COUNT 3.89 X10E12/L Normal 3.80-5.20 [facility] Comment on above: Performed By: #### C OMID, 3039-3, CBCA #### [facility] ([id number]) [address] [place], [place] [address] WBC (Bld) [#/Vol] 9.8 10*3/uL Normal 4.0-11.0 [facility] Comment on above: Performed By: #### C OMID, 3039-, CBCA #### [facility] ([id number]) [address] [place], [place] [address] COMPREHENSIVE METABOLIC PANE Steven 09-18-2023 Albumin [Mass/Vol] 2.9 g/dL Low 3.2-5.3 [facility] Comment on above: Performed By: #### C OMID, 3, CBCA #### [facility] ([id number]) [address] [place], [place] [address] ALP [Catalytic activity/Vol] 71 U/L Normal 39-130 [facility] Comment on above: Performed By: #### C OMID, 0-3, CBCA #### [facility] ([id number]) [address] [place], [place] [address] ALT [Catalytic activity/Vol] 9 U/L Normal 0-31 [facility] Comment on above: Performed By: #### C OMID, 3039-07, CBCA #### [facility] ([id number]) [address] [place] [address] 51424 Anion gap [Moles/Vol] 10 mmol/L Normal 5-15 [facility] Comment on above: Performed By: #### C OMID, 3039-07, CBCA #### [facility] ([id number]) [address] [place] [address] 65930 AST [Catalytic activity/Vol] 15 U/L Normal 0-41 [facility] Comment on above: Performed By: #### C OMID, 3039-07, CBCA #### [facility] ([id number]) [address] [place] [address] 53813 Bilirubin [Mass/Vol] 0.4 mg/dL Normal 0.3-1.2 [facility] Comment on above: Performed By: #### C OMID, 3039-07, CBCA #### [facility] ([id number]) [address] [place] [address] 64742 Calcium [Mass/Vol] 8.2 mg/dL Low 8.5-10.5 [facility] Comment on above: Performed By: #### C OMID, 3039-07, CBCA #### [facility] ([id number]) [address] [place] [address] 90172 Chloride [Moles/Vol] 103 mmol/L Normal 98-109 [facility] Comment on above: Performed By: #### C OMID, 3039-07, CBCA #### [facility] ([id number]) [address] [place] [address] 47351 CO2 [Moles/Vol] 21 mmol/L Low 22-32 [facility] Comment on above: Performed By: #### C OMID, 3039-07, CBCA #### [facility] ([id number]) [address] [place] [address] 99509 Creatinine [Mass/Vol] 0.51 mg/dL Normal 0.40-1.00 [facility] Comment on above: Result Comment: METH OD TRACEABLE TO IDMS STANDARD Performed By: #### C OMID, 3039-07, CBCA #### [facility] ([id number]) [address] [place] [address] 75594 eGFR (CKD-EPI) NON-RACE DEPENDENT >90 Normal >59 [facility] Comment on above: Result Comment: Reported eGFR is based on the CKD-EPI 2020 equation that does not use a race coefficient. Performed By: #### C OMID, 3039-07, CBCA #### [facility] ([id number]) [address] [place] [address] 31429 Glucose [Mass/Vol] 92 mg/dL Normal 65-99 [facility] Comment on above: Performed By: #### Ann-Marie ANNE, 3039-07, CBCA #### [facility] ([id number]) [address] [place] [address] 65924 Potassium [Moles/Vol] 3.7 mmol/L Normal 3.5-5.0 [facility] Comment on above: Performed By: #### C OMID, 3039-07, CBCA #### [facility] ([id number]) [address] [place] [address] 11874 Protein [Mass/Vol] 6.5 g/dL Normal 6.0-8.0 [facility] Comment on above: Performed By: #### Ann-Marie ANNE, 3039-07, CBCA #### [facility] ([id number]) [address] [place] [address] 49691 Sodium [Moles/Vol] 134 mmol/L Normal 134-146 [facility] Comment on above: Performed By: #### C OMID, 3039-07, CBCA #### [facility] ([id number]) [address] [place] [address] 48619 Urea nitrogen [Mass/Vol] 14 mg/dL Normal 5-23 [facility] Comment on above: Performed By: #### C OMID, 3040-3, CBCA #### [facility] ([id number]) [address] [place] [address] 80594 LIPASEon 09-18-2023 Lipase [Catalytic activity/Vol] 48 U/L High 17-40 [facility] Comment on above: Performed By: #### C OMID, 3040-3, CBCA #### [facility] ([id number]) [address] [place] [address] 29418 URINE CULTUREon 09-18-2023 Bacteria identified Cx Nom (U) CULTURE RESULTS <10,000 ORGANISMS/ML NORMAL URO GENITAL ALEX Normal [facility] Comment on above: Performed By: #### 6 30-4 #### [facility] ([id number]) [address] [place] [address], [address] [place] [address] URN MACROSCOPIC NURon 2023 BILIRUBIN ELOISA Negative Normal NEG [facility] Comment on above: Performed By: #### N UM #### [facility] ([id number]) [address] [place] [address] 69004 BLOOD/HGB ELOISA Negative Normal NEG [facility] Comment on above: Performed By: #### N UM #### [facility] ([id number]) [address] [place] [address] 63035 GLUCOSE ELOISA Negative Normal NEG [facility] Comment on above: Performed By: #### N UM #### [facility] ([id number]) [address] [place] [address] 53659 KETONES ELOISA Negative Normal NEG [facility] Comment on above: Performed By: #### N UM #### [facility] ([id number]) [address] [place] [address] 01022 LEUKOCYTE ESTERASE ELOISA Negative Normal NEG [facility] Comment on above: Performed By: #### N UM #### [facility] ([id number]) [address] [place] [address] 22560 NITRITE ELOISA Negative Normal NEG [facility] Comment on above: Performed By: #### N UM #### [facility] ([id number]) [address] [place] [address] 76024 PH ELOISA 7.0 Normal 5.0-8.5 [facility] Comment on above: Performed By: #### N UM #### [facility] ([id number]) [address] [place] [address] 61517 PROTEIN ELOISA Negative Normal NEG [facility] Comment on above: Performed By: #### N UM #### [facility] ([id number]) [address] [place] [address] 40966 SPECIFIC GRAVITY ELOISA 1.020 Normal 1.003-1 .03 5 [facility] Comment on above: Performed By: #### N UM #### [facility] ([id number]) [address] [place] [address] 92046 UROBILINOGEN ELOISA 0.2 eu/dL Normal <1.1 [facility] Comment on above: Performed By: #### N UM #### [facility] ([id number]) [address] [place] [address] 34055 Thyroid profile includes TSH FT4on 08-29-2023 Free T4 [Mass/Vol] 0.71 ng/dL 0.61 - 1.60 ng/dL [facility] TSH Qn 2.04 m[IU]/L [facility] US PREG GREATER THAN 14 WKS SNGL TRANSABon 08-29-2023 US PREG GREATER THAN 14 WKS SNGL TRANSAB US PREG GREATER THAN 14 WKS SNGL TRANSAB *ADDENDUM*Addendum : Corrected impression: Estimated weight is 19.9%. 58 Finalized by Fernandez Hernandez MD on 08/29/2023 1:52 PM Normal [facility] US TRANSVAGINAL PREGon 08-28 US TRANSVAGINAL PREG US TRANSVAGINAL PREG *ADDENDUM*Addendum : Corrected impression: Estimated weight is 19.9%. 58 Finalized by Fernandez Hernandez MD on 08/29/2023 1:52 PM Normal [facility] Urinalysison 08-29-2023 Bilirubin Ql (U) Negative Negative^N egative [facility] Color (U) YELLOW YELLOW^YEL LOW [facility] Epithelial cells Auto (Urine sed) [#/Area] 12 High [facility] Glucose (U) [Mass/Vol] Negative Negat tong^N egative mg/dL [facility] Hemoglobin Auto test strip Q l (U) Negative Negative^N ative [facility] Interpretation and review of laboratory results Abnormal [facility] Ketones (U) [Mass/Vol] Negative Negat tong^N egative mg/dL [facility] Leukocyte esterase Auto test strip Ql (U) Large Abnormal Negative^N egative [facility] Mucus Ql (Urine sed) PRESENT Abnormal NONE^NONE [facility] Nitrite Auto test strip Ql (U) Negative Negative^N egative [facility] pH (U) 6.5 [pH] 5.0 - 8.5 [facility] Protein (U) [Mass/Vol] Trace Abnormal Negat tong^N egative mg/dL [facility] RBC Auto (Urine sed) [#/Area] 2 [facility] Specific gravity Refractometry automated (U) [Rel density] 1.021 1.003 - 1.035 [facility] Spermatozoa LM Ql (Urine sed) PRESENT Abnormal NONE^N ONE [facility] Turbidity Ql (U) HAZY Abnormal CLEAR^LANDON R [facility] Urobilinogen Qn (U) NINF [facility] WBC Auto (Urine sed) [#/Area] 91 High [facility] Drug Screen, Urineon 024 Amphetamines Screen method >1000 ng/mL Ql (U) Negative Negative^N egative [facility] Comment on above: AMPH/METH screening cut off = 1000 ng/mL Barbiturates Screen Ql (U) Negative N egative^N egative [facility] Comment on above: Barbiturates screeni ng cut off value = 200 ng/mL Benzodiazepines Ql (U) Negative Negat tong^N [facility] Comment on above: Benzodiazepines scre ening cut off value = 200 ng/mL Cocaine Ql (U) Negative Negative^N [facility] Comment on above: Cocaine screening cu t off value = 300 ng/mL Interpretation and review of laboratory results Abnormal [facility] Methadone Screen Ql (U) Negative Nega tive^N [facility] Comment on above: Methadone screening cut off value = 300 ng/mL. Methylenedioxymethamphetamin e Screen Ql (U) Negative Negative^N [facility] Comment on above: Ecstasy screening cu t off value = 500 ng/mL This report is intended for use in clinical monitoring or management of patients. Opiates Screen Ql (U) Negative Negati ve^N [facility] Comment on above: Opiates screening cu t off value = 300 ng/mL NOTE: This test is used for the detection of codeine, hydrocodone (>1000 ng/mL), morphine and hydromorphone (>900 ng/mL) in urine. oxyCODONE Ql (U) Negative Negative^N [facility] Comment on above: Oxycodone screening cut off value = 300 ng/mL NOTE: This test is used for the detection of oxycodone and oxymorphone in urine. Phencyclidine Screen method >25 ng/mL Ql (U) Negative Negative^N [facility] Comment on above: Phencyclidine screen ing cut off value = 25 ng/mL Tetrahydrocannabinol Screen method >50 ng/mL Ql (U) Positive Abnormal Negative^N [facility] Comment on above: Confirmation availab le upon request. Cannabinoids/THC screening cut off value = 50 ng/mL [facility] HCG ( test) Ql (U)o n 08-22-2023 Beta HCG ( test) Ql (U) Positive Abnormal NEG [facility] Comment on above: Performed By: #### 2 106-3 #### [facility] ([id number]) [address] [place] [address] COY Starr 2023 BILIRUBIN ELOISA Negative Normal NEG [facility] Comment on above: Performed By: #### N UM #### [facility] ([id number]) [address] [place] [address] 49617 BLOOD/HGB ELOISA Negative Normal NEG [facility] Comment on above: Performed By: #### N UM #### [facility] ([id number]) [address] [place] [address] 32033 GLUCOSE ELOISA Negative Normal NEG [facility] Comment on above: Performed By: #### N UM #### [facility] ([id number]) [address] [place] [address] 00653 KETONES ELOISA Trace Abnormal NEG [facility] Comment on above: Performed By: #### N UM #### [facility] ([id number]) [address] [place] [address] 95802 LEUKOCYTE ESTERASE ELOISA Small Abnormal NEG [facility] Comment on above: Performed By: #### N UM #### [facility] ([id number]) [address] [place] [address] 26684 NITRITE ELOISA Negative Normal NEG [facility] Comment on above: Performed By: #### N UM #### [facility] ([id number]) [address] [place] [address] 03141 PH ELOISA 6.0 Normal 5.0-8.5 [facility] Comment on above: Performed By: #### N UM #### [facility] ([id number]) [address] [place] [address] 14264 PROTEIN ELOISA Negative Normal NEG [facility] Comment on above: Performed By: #### N UM #### [facility] ([id number]) [address] [place] [address] 08713 SPECIFIC GRAVITY ELOISA >=1.030 Normal 1.003-1 .03 5 [facility] Comment on above: Performed By: #### N UM #### [facility] ([id number]) [address] [place] [address] 97434 UROBILINOGEN ELOISA 0.2 eu/dL Normal <1.1 [facility] Comment on above: Performed By: #### N UM #### [facility] ([id number]) [address] [place] [address] 33035 Cult,Urineon 11-06-2022 Cult,Urine Specimen Description .Source, Unspecified Culture ESCHERICHIA COLI >[id number] CFU/ML Report Status FINAL 11/06/2022 SUSCEPTIBILITY Organism [...] Tobramycin <=1 SUSCEPTIBLE Trimethoprim/Sulfa >=320 RESISTANT Resistant [facility] Comment on above: Performed By: #### U RC #### [facility] [address] [place], [place] [id number] Simulation Technician: Tripp Martínez MD [facility] [address] [place] [address] [place]. [place] [id number] Simulation Technician: Jean Aldrich MD CBC with Diffon 11-04-2022 Abs. Basophil <0.03 Normal 0.00-0.20 [facility] Comment on above: Performed By: #### C P, CDP, LIP #### [facility] [address] [place], [place] [id number] Simulation Technician: Jean Aldrich MD Abs.Imm.Granulocyte <0.03 Normal 0.00-0.30 [facility] Comment on above: Performed By: #### C P, CDP, LIP #### [facility] [address] [place] [address] Simulation Technician: Jean Aldrich MD Abs.Neutrophil (Seg) 4.42 k/uL Normal 1.80-8.00 [facility] Comment on above: Performed By: #### C P, CDP, LIP #### [address] [place] [address] Simulation Technician: Jean Aldrich MD Basophils/100 WBC (Bld) 0 % Normal 0-2 [facility] Comment on above: Performed By: #### C P, CDP, LIP #### [address] [place], [facility]83 Simulation Technician: Jean Aldrich MD Eosinophils (Bld) [#/Vol] 0.06 10*3/uL Normal 0.00-0.4 4 [facility] Comment on above: Performed By: #### C P, CDP, LIP #### [address] [place] [address] Simulation Technician: Jean Aldrich MD Eosinophils/100 WBC (Bld) 1 % Normal 1-4 [facility] Comment on above: Performed By: #### C P, CDP, LIP #### [address] [place], [facility]83 Simulation Technician: Jean Aldrich MD Erythrocyte distribution width (RBC) [Ratio] 12.0 % Normal 11.8-14.4 [facility] Comment on above: Performed By: #### C P, CDP, LIP #### [address] [place], [facility]83 Simulation Technician: Jean Aldrich MD Hematocrit (Bld) [Volume fraction] 33.9 % Low 36.3-47.1 [facility] Comment on above: Performed By: #### C P, CDP, LIP #### [address] [place], [facility]83 Simulation Technician: Jean Aldrich MD Hemoglobin (Bld) [Mass/Vol] 12.2 g/dL Normal 11.9-15. 1 [facility] Comment on above: Performed By: #### C P, CDP, LIP #### [address] [place], [place] [address] Simulation Technician: Jean Aldrich MD Immature granulocytes/100 WB C (Bld) 0 % Normal 0 [facility] Comment on above: Performed By: #### C P, CDP, LIP #### [address] [place], [place] [address] Simulation Technician: Jean Aldrich MD Lymphocytes (Bld) [#/Vol] 1.23 10*3/uL Normal 1.20-5.2 0 [facility] Comment on above: Performed By: #### C P, CDP, LIP #### [address] [place] [address] Simulation Technician: Jean Aldrich MD Lymphocytes/100 WBC (Bld) 20 % Low 25-45 [facility] Comment on above: Performed By: #### C P, CDP, LIP #### [address] [place], [facility]83 Simulation Technician: Jean Aldrich MD MCH (RBC) [Entitic mass] 29.6 pg Normal 25.2-33.5 [facility] Comment on above: Performed By: #### C P, CDP, LIP #### [address] [place], [facility]83 Simulation Technician: Jean Aldrich MD MCHC (RBC) [Mass/Vol] 36.0 g/dL High 28.4-34.8 [facility] Comment on above: Performed By: #### C P, CDP, LIP #### [address] [place] [address] Simulation Technician: Jean Aldrich MD MCV (RBC) [Entitic vol] 82.3 fL Low 82.6-102.9 M [facility] Comment on above: Performed By: #### C P, CDP, LIP #### [facility] [address] [place], [place] 014[address]83 Simulation Technician: Jean Aldrich MD Monocytes (Bld) [#/Vol] 0.50 10*3/uL Normal 0.10-1.40 [facility] Comment on above: Performed By: #### C P, CDP, LIP #### [facility] [address] [place], [facility]83 Simulation Technician: Jean Aldrich MD Monocytes/100 WBC (Bld) 8 % Normal 2-8 M [facility] Comment on above: Performed By: #### C P, CDP, LIP #### [address] [place], [place] [address] Simulation Technician: Jean Aldrich MD Neutrophil (Seg) 71 % High 34-64 [facility] Comment on above: Performed By: #### C P, CDP, LIP #### [address] [place], [facility]83 Simulation Technician: Jean Aldrich MD NRBC Automated 0.0 per 100 WBC Normal 0.0 [facility] Comment on above: Performed By: #### C P, CDP, LIP #### [address] [place], [place] [address] Simulation Technician: Jean Aldrich MD Platelet mean volume (Bld) [Entitic vol] 10.6 fL Normal 8.1-13.5 [facility] Comment on above: Performed By: #### C P, CDP, LIP #### [address] [place], [place] [id number] Simulation Technician: Jean Aldrich MD Platelets (Bld) [#/Vol] 218 10*3/uL Normal 138-453 [facility] Comment on above: Performed By: #### C P, CDP, LIP #### [facility] [address] [place] [address] Simulation Technician: Jean Aldrich MD RBC (Bld) [#/Vol] 4.12 10*6/uL Normal 3.95-5.11 [facility] Comment on above: Performed By: #### C P, CDP, LIP #### [facility] [address] [place] [address] Simulation Technician: Jean Aldrich MD WBC (Bld) [#/Vol] 6.3 10*3/uL Normal 4.5-13.5 [facility] Comment on above: Performed By: #### C P, CDP, LIP #### [facility] [address] [place], [place] 1023283 Simulation Technician: Jean Aldrich MD Comp Metabolic Profon 2022 Albumin [Mass/Vol] 3.6 g/dL Normal 3.5-5.2 [facility] Comment on above: Performed By: #### C P, CDP, LIP #### [address] [place], [place] 0096783 Simulation Technician: Jean Aldrich MD Albumin/Glob Ratio 1.2 Normal 1.0-2.5 [facility] Comment on above: Performed By: #### C P, CDP, LIP #### [address] [place], [place] 9003783 Simulation Technician: Jean Aldrich MD Alkaline Phos 66 U/L Normal 35-104 [facility] Comment on above: Performed By: #### C P, CDP, LIP #### [facility] [address] [place] [address] Simulation Technician: Jean Aldrich MD ALT [Catalytic activity/Vol] 14 U/L Normal 5-33 [facility] Comment on above: Performed By: #### C P, CDP, LIP #### [facility] [address] [place], [place] 5909383 Simulation Technician: Jean Aldrich MD Anion gap [Moles/Vol] 10 mmol/L Normal 9-17 [facility] Comment on above: Performed By: #### C P, CDP, LIP #### [facility] [address] [place], [place] 4181583 Simulation Technician: Jean Aldrich MD AST [Catalytic activity/Vol] 15 U/L Normal <32 [facility] Comment on above: Performed By: #### C P, CDP, LIP #### [facility] [address] [place], [place] 4688683 Simulation Technician: Jean Aldrich MD Bilirubin [Mass/Vol] 0.3 mg/dL Normal 0.3-1.2 [facility] Comment on above: Performed By: #### C P, CDP, LIP #### [facility] [address] [place] [address] Dr. [place], [place] 2212483 Simulation Technician: Jean Aldrich MD BUN/CRE Ratio 5 Low 9-20 [facility] Comment on above: Performed By: #### C P, CDP, LIP #### [address] [place], [place] 8811083 Simulation Technician: Jean Aldrich MD Calcium [Mass/Vol] 9.2 mg/dL Normal 8.6-10.4 [facility] Comment on above: Performed By: #### C P, CDP, LIP #### [facility] [address] [place], [place] 0114783 Simulation Technician: Jean Alrdich MD Chloride [Moles/Vol] 103 mmol/L Normal 98-107 [facility] Comment on above: Performed By: #### C P, CDP, LIP #### [facility] [address] [place] [address] Dr. [place], [place] [phone] Simulation Technician: Jean Aldrich MD CO2 [Moles/Vol] 20 mmol/L Normal 20-31 [facility] Comment on above: Performed By: #### C P, CDP, LIP #### [facility] [address] [place] [address] Simulation Technician: Jean Aldrich MD Creatinine [Mass/Vol] 0.40 mg/dL Low 0.50-0.90 [facility] Comment on above: Performed By: #### C P, CDP, LIP #### [facility] [address] [place] [address] Simulation Technician: Jean Aldrich MD GFR/1.73 sq M.predicted carie g non-blacks MDRD (S/P/Bld) [Vol rate/Area] mL/min/{1.73_m2} Normal >60 [facility] Comment on above: Result Comment: These [...] By: #### C P, CDP, LIP #### [facility] [address] [place] [address] Simulation Technician: Jean Aldrich MD Glucose [Mass/Vol] 77 mg/dL Normal 70-99 [facility] Comment on above: Performed By: #### C P, CDP, LIP #### [facility] [address] [place] [address] Simulation Technician: Jean Aldrcih MD Potassium [Moles/Vol] 3.2 mmol/L Low 3.7-5.3 [facility] Comment on above: Performed By: #### C P, CDP, LIP #### [facility] [address] [place] [address] Simulation Technician: Jean Aldrich MD Protein [Mass/Vol] 6.6 g/dL Normal 6.4-8.3 [facility] Comment on above: Performed By: #### C P, CDP, LIP #### [facility] [address] [place], [place] 5891783 Simulation Technician: Jean Aldrich MD Sodium [Moles/Vol] 133 mmol/L Low 135-144 [facility] Comment on above: Performed By: #### C P, CDP, LIP #### [facility] [address] [place], [place] 8876483 Simulation Technician: Jean Aldrich MD Urea nitrogen [Mass/Vol] 2 mg/dL Low 6-20 [facility] Comment on above: Performed By: #### C P, CDP, LIP #### [facility] [address] [place], [place] 5888383 Simulation Technician: Jean Aldrich MD Lipaseon 2 Lipase [Catalytic activity/Vol] 39 U/L Normal 13-60 [facility] Comment on above: Performed By: #### C P, CDP, LIP #### [facility] [address] [place], [place] 4823583 Simulation Technician: Jean Aldrich MD UA w/Reflex Cultureon 4 Bilirubin, SemiQt,Ur Negative Normal NEG [facility] Comment on above: Performed By: #### U AVELINA SPENCER #### [facility] [address] [place], [place] 6464583 Simulation Technician: Jean Aldrich MD Blood, Urine Negative Normal NEG [facility] Comment on above: Performed By: #### U AVELINA SPENCER #### [facility] [address] [place] [address] Simulation Technician: Jean Aldrich MD Clarity (U) Cloudy Abnormal CLEAR [facility] Comment on above: Performed By: #### U AVELINA SPENCER #### [facility] [address] [place], [place] 2728583 Simulation Technician: Jean Aldrich MD Color (U) Yellow Normal YEL [facility] Comment on above: Performed By: #### U AX, UMICAO #### [facility] [address] [place], [place] 7052083 Simulation Technician: Jean Aldrich MD Glucose Ql (U) Negative Normal NEG [facility] Comment on above: Performed By: #### U AX, UMICAO #### [facility] [address] [place], [place] 9915983 Simulation Technician: Jean Aldrich MD Ketones Ql (U) 4+ Abnormal NEG [facility] Comment on above: Performed By: #### U AX, UMICAO #### [facility] [address] [place] [address] Dr. [place], [place] 5110183 Simulation Technician: Jean Aldrich MD Leukocyte esterase Test stri p Ql (U) MODERATE Abnormal NEG [facility] Comment on above: Performed By: #### U AX, UMICAO #### [facility] [address] [place] [address] Dr. [place], [place] 9207083 Simulation Technician: Jean Aldrich MD Nitrite,Ur Positive Abnormal NEG [facility] Comment on above: Performed By: #### U AX, UMICAO #### [facility] [address] [place] [address] Dr. [place], [place] 2470883 Simulation Technician: Jean Aldrich MD PH,Ur 6.0 Normal 5.0-9.0 [facility] Comment on above: Performed By: #### U AX, UMICAO #### [facility] [address] [place] [address] Dr. [place], [place] 5290183 Simulation Technician: Jean Aldrich MD Protein Ql (U) Negative Normal NEG [facility] Comment on above: Performed By: #### U AX, UMICAO #### [facility] [address] [place] [address] Simulation Technician: Jean Aldrich MD Spec. [place],Ur 1.025 High 1.010-1.02 0 [facility] Comment on above: Performed By: #### U AX UMICAO #### [facility] [address] [place], [place] 0031483 Simulation Technician: Jean Aldrich MD Urobilinogen,Ur Normal Normal NORM [facility] Comment on above: Performed By: #### U AX UMICAO #### [facility] [address] [place] [address] Simulation Technician: Jean Aldrich MD Urinalysis,Microon 3 Bacteria 3+ Abnormal [facility] Comment on above: Performed By: #### U KAILEY SPENCERICAO #### [facility] [address] [place], [place] 7049083 Simulation Technician: Jean Aldrich MD Crystals LM Nom (Urine sed) 0 TO 2 Abnormal [facility] Comment on above: Result Comment: CALC IUM OXALATE Performed By: #### U ROSSY SPENCERO #### [facility] [address] [place] [address] Simulation Technician: Jean Aldrich MD Epithelial cells LM Ql (Urin e sed) 5 TO 10 Normal 0-25 [facility] Comment on above: Performed By: #### U AXKAILEYICAO #### [facility] [address] [place], [place] 7437783 Simulation Technician: Jean Aldrich MD Mucus Strands TRACE Abnormal [facility] Comment on above: Performed By: #### U AXKAILEYICAO #### [facility] [address] [place], [place] 0021183 Simulation Technician: Jean Aldrich MD Urine RBC's 0 TO 2 Normal 0-2 [facility] Comment on above: Performed By: #### U AXROSSYO #### [facility] [address] [place], [place] 0987683 Simulation Technician: Jean Aldrich MD Urine WBC's 10 TO 20 Normal 0-5 [facility] Comment on above: Performed By: #### U ROSSY SPENCERO #### [facility] [address] [place], [place] 3826183 Simulation Technician: Jean Aldrich MD XR CHEST PORTABLEon 11-05-19 [...] Violette Benitez MD 11/04/22 Final result Normal [facility] CBC with Diffon 10-30-2022 Abs. Basophil <0.03 Normal 0.00-0.20 [facility] Comment on above: Performed By: #### C P, PT, CDP ####[address] [place] [address] Lab Director: Jean Aldrich MD Abs.Imm.Granulocyte 0.03 k/uL Normal 0.00-0.30 [facility] Comment on above: Performed By: #### C P, PT, CDP ####[facility] , [place] 5675883 Lab Director: Jean Aldrich MD Abs.Neutrophil (Seg) 6.65 k/uL Normal 1.80-8.00 [facility] Comment on above: Performed By: #### C P, PT, CDP ####[address] [place], [place] 3974883 Lab Director: Jean Aldrich MD Basophils/100 WBC (Bld) 0 % Normal 0-2 M [facility] Comment on above: Performed By: #### C P, PT, CDP ####[address] [place] [address] Lab Director: Jean Aldrich MD Eosinophils (Bld) [#/Vol] 0.06 10*3/uL Normal 0.00-0.4 4 [facility] Comment on above: Performed By: #### C P, PT, CDP ####[address] , [place] 6002883 Lab Director: Jean Aldrich MD Eosinophils/100 WBC (Bld) 1 % Normal 1-4 [facility] Comment on above: Performed By: #### C P, PT, CDP ####[address] , [place] 4324283 Lab Director: Jean Aldrich MD Erythrocyte distribution width (RBC) [Ratio] 11.9 % Normal 11.8-14.4 [facility] Comment on above: Performed By: #### C P, PT, CDP ####[address] , [place] 0606683 Lab Director: Jean Aldrich MD Hematocrit (Bld) [Volume fraction] 35.9 % Low 36.3-47.1 [facility] Comment on above: Performed By: #### C P, PT, CDP ####[address] [place] [address] Lab Director: Jean Aldrich MD Hemoglobin (Bld) [Mass/Vol] 12.6 g/dL Normal 11.9-15. 1 [facility] Comment on above: Performed By: #### C P, PT, CDP ####[address] , [place] 6757783 Lab Director: Jean Aldrich MD Immature granulocytes/100 WB C (Bld) 0 % Normal 0 [facility] Comment on above: Performed By: #### C P, PT, CDP ####[address] [place] [address] Lab Director: Jean Aldrich MD Lymphocytes (Bld) [#/Vol] 2.00 10*3/uL Normal 1.20-5.2 0 [facility] Comment on above: Performed By: #### C P, PT, CDP ####[address] , [facility]83 Lab Director: Jean Aldrich MD Lymphocytes/100 WBC (Bld) 22 % Low 25-45 [facility] Comment on above: Performed By: #### C P, PT, CDP ####[address] , [facility]83 Lab Director: Jean Aldrich MD MCH (RBC) [Entitic mass] 29.6 pg Normal 25.2-33.5 [facility] Comment on above: Performed By: #### C P, PT, CDP ####[address] , [place] 6561683 Lab Director: Jean Aldrich MD MCHC (RBC) [Mass/Vol] 35.1 g/dL High 28.4-34.8 [facility] Comment on above: Performed By: #### C P, PT, CDP ####[address] , [facility]83[facility])[phone] Director: Jean Aldrich MD MCV (RBC) [Entitic vol] 84.3 fL Normal 82.6-102.9 M [facility] Comment on above: Performed By: #### C P, PT, CDP ####[address] , [place] 4152583 Lab Director: Jean Aldrich MD Monocytes (Bld) [#/Vol] 0.38 10*3/uL Normal 0.10-1.40 [facility] Comment on above: Performed By: #### C P, PT, CDP ####[address] , [place] 8591283 Lab Director: Jean Aldrich MD Monocytes/100 WBC (Bld) 4 % Normal 2-8 M [facility] Comment on above: Performed By: #### C P, PT, CDP ####[address] , [place] [address] Lab Director: Jean Aldrich MD Neutrophil (Seg) 73 % High 34-64 [facility] Comment on above: Performed By: #### C P, PT, CDP ####[address] , [facility]83 Lab Director: Jean Aldrich MD NRBC Automated 0.0 per 100 WBC Normal 0.0 [facility] Comment on above: Performed By: #### C P, PT, CDP ####[address] , [facility]83 Lab Director: Jean Aldrich MD Platelet mean volume (Bld) [Entitic vol] 11.0 fL Normal 8.1-13.5 [facility] Comment on above: Performed By: #### C P, PT, CDP ####[address] , [facility]83 Lab Director: Jean Adlrich MD Platelets (Bld) [#/Vol] 249 10*3/uL Normal 138-453 [facility] Comment on above: Performed By: #### C P, PT, CDP ####[address] , [place] 6827383 Lab Director: Jean Aldrich MD RBC (Bld) [#/Vol] 4.26 10*6/uL Normal 3.95-5.11 [facility] Comment on above: Performed By: #### C P, PT, CDP ####[address] , [place] 1673483 Lab Director: Jean Aldrich MD WBC (Bld) [#/Vol] 9.1 10*3/uL Normal 4.5-13.5 [facility] Comment on above: Performed By: #### C P, PT, CDP ####[address] , [place] 1127783 Lab Director: Jean Aldrich MD Comp Metabolic Profon 2022 Albumin [Mass/Vol] 3.9 g/dL Normal 3.5-5.2 [facility] Comment on above: Performed By: #### C P, PT, CDP ####[address] , [place] 6486683 Lab Director: Jean Aldrich MD Albumin/Glob Ratio 1.3 Normal 1.0-2.5 [facility] Comment on above: Performed By: #### C P, PT, CDP ####[address] , [place] 6602383 Lab Director: Jean Aldrich MD Alkaline Phos 65 U/L Normal 35-104 [facility] Comment on above: Performed By: #### C P, PT, CDP ####[address] [place] [address] Lab Director: Jean Aldrich MD ALT [Catalytic activity/Vol] 21 U/L Normal 5-33 [facility] Comment on above: Performed By: #### C P, PT, CDP ####[address] , [place] 7784383 Lab Director: Jean Aldrich MD Anion gap [Moles/Vol] 12 mmol/L Normal 9-17 [facility] Comment on above: Performed By: #### C P, PT, CDP ####[address] , [place] 0016983 Lab Director: Jean Aldrich MD AST [Catalytic activity/Vol] 13 U/L Normal <32 [facility] Comment on above: Performed By: #### C P, PT, CDP ####[address] , [place] 2240083 Lab Director: Jean Aldrich MD Bilirubin [Mass/Vol] 0.4 mg/dL Normal 0.3-1.2 [facility] Comment on above: Performed By: #### C P, PT, CDP ####[address] , [place] 7975583 Lab Director: Jean Aldrich MD BUN/CRE Ratio 10 Normal 9-20 [facility] Comment on above: Performed By: #### C P, PT, CDP ####[address] , [place] 2517783 Lab Director: Jean Aldrich MD Calcium [Mass/Vol] 9.6 mg/dL Normal 8.6-10.4 [facility] Comment on above: Performed By: #### C P, PT, CDP ####[address] , [place] 0347883 Lab Director: Jean Aldrich MD Chloride [Moles/Vol] 102 mmol/L Normal 98-107 [facility] Comment on above: Performed By: #### C P, PT, CDP ####[address] , [place] 1707983 Lab Director: Jean Aldrich MD CO2 [Moles/Vol] 22 mmol/L Normal 20-31 [facility] Comment on above: Performed By: #### C P, PT, CDP ####[address] , [place] 6220883 Lab Director: Jean Aldrich MD Creatinine [Mass/Vol] 0.41 mg/dL Low 0.50-0.90 [facility] Comment on above: Performed By: #### C P, PT, CDP ####[address] [place] [address] Lab Director: Jean Aldrich MD GFR/1.73 sq M.predicted carie g non-blacks MDRD (S/P/Bld) [Vol rate/Area] mL/min/{1.73_m2} Normal >60 [facility] Comment on above: Result Comment: These [...] Performed By: #### C P, PT, CDP ####[address] , [place] 6267083 Lab Director: Jean Aldrich MD Glucose [Mass/Vol] 82 mg/dL Normal 70-99 [facility] Comment on above: Performed By: #### C P, PT, CDP ####[address] , [place] 1555783 Lab Director: Jean Aldrich MD Potassium [Moles/Vol] 3.7 mmol/L Normal 3.7-5.3 [facility] Comment on above: Performed By: #### C P, PT, CDP ####[address] , [place] 4657583 Lab Director: Jean Aldrich MD Protein [Mass/Vol] 6.9 g/dL Normal 6.4-8.3 [facility] Comment on above: Performed By: #### C P, PT, CDP ####[address] , [place] 2143583 Lab Director: Jean Aldrich MD Sodium [Moles/Vol] 136 mmol/L Normal 135-144 [facility] Comment on above: Performed By: #### C P, PT, CDP ####[address] [place] [address] lab Director: Jean Aldrich MD Urea nitrogen [Mass/Vol] 4 mg/dL Low 6-20 [facility] Comment on above: Performed By: #### C P, PT, CDP ####[address] [place] [address] lab Director: Jean Aldrich MD HCG, Quanton 10-30-2022 HCG, Quant [id number] mIU/mL High <5 [facility] Comment on above: Result Comment: Non-preg premeno <=5 Postmeno <=8 Male <=3 If HCG results do not concur with clinical observations, additional testing to confirm results is recommended. Performed By: #### B HCG ####[address] [place] [address] lab Director: Jean Aldrich MD PTon 10-30-2022 INR Coag (PPP) [Relative time] 1.0 {INR} Normal [facility] Comment on above: Result Comment: Therapeutic Range: Moderate Anticoagulant Intensity: INR = 2.0-3.0 High Anticoagulant Intensity: INR = 2.5-3.5 Performed By: #### C P, PT, CDP ####[address] [place] [address] lab Director: Jean Aldrich MD PT Coag (PPP) [Time] 12.9 s Normal 11.9-14.8 [facility] Comment on above: Performed By: #### C P, PT, CDP ####[address] [place] [address] lab Director: Jean Aldrich MD Type + Screenon 10-30-2022 Type + Screen Sample Expiration 11/02/2022,2359 Arm Band Number [id number] ABO/Rh(D) O POSITIVE Antibody Screen NEGATIVE Normal [facility] Comment on above: Performed By: #### T YS ####[facility] [place] [address] lab Director: Jean Aldrich MD DUP ABD PEL RETRO SCROT [...] hematoma. Twin A: Yolk Sac: Not seen [place] Rump Length: 5.3 cm Heart Rate: 156 beats per minute Twin B: Yolk sac: Not seen [place]-rump length: 5.6 cm heart rate: 158 beats [...] Madyson Gabriel DO 10/30/22 Final result Normal [facility] US OB LESS THAN 14 WEEKS [...] hematoma. Twin A: Yolk Sac: Not seen [place] Rump Length: 5.3 cm Heart Rate: 156 beats per minute Twin B: Yolk sac: Not seen [place]-rump length: 5.6 cm heart rate: 158 beats [...] Madyson Gabriel DO 10/30/22 Final result Normal [facility] Urinalysis, Routineon 2022 Bilirubin, SemiQt,Ur Negative Normal NEG [facility] Comment on above: Performed By: #### U A, UMICAO #### [facility] [address] [place], [place] 8230583 Simulation Technician: Jean Aldrich MD Blood, Urine Negative Normal NEG [facility] Comment on above: Performed By: #### U A, UMICAO #### [facility] [address] [place] [address] Simulation Technician: Jean Aldrich MD Clarity (U) Cloudy Abnormal CLEAR [facility] Comment on above: Performed By: #### U A, UMICAO #### [facility] [address] [place] [address] [place] [place], [place] 3242283 Simulation Technician: Jean Aldrich MD Color (U) Yellow Normal YEL [facility] Comment on above: Performed By: #### U A, UMICAO #### [facility] [address] [place] [address] [place] [address] Simulation Technician: Jean Aldrich MD Glucose Ql (U) Negative Normal NEG [facility] Comment on above: Performed By: #### U A, UMICAO #### [facility] [address] [place] [address] [place] [address] Simulation Technician: Jean Aldrich MD Ketones Ql (U) 1+ Abnormal NEG [facility] Comment on above: Performed By: #### U A, UMICAO #### [facility] [address] [place] [address] Simulation Technician: Jean Aldrich MD Leukocyte esterase Test stri p Ql (U) LARGE Abnormal NEG [facility] Comment on above: Performed By: #### U A, UMICAO #### [facility] [address] [place] [address] [place] [place], [place] 8829783 Simulation Technician: Jean Aldrich MD Nitrite,Ur Negative Normal NEG [facility] Comment on above: Performed By: #### U A, UMICAO #### [facility] [address] [place] [address] Simulation Technician: Jean Aldrich MD PH,Ur 6.5 Normal 5.0-9.0 [facility] Comment on above: Performed By: #### U A, UMICAO #### [facility] [address] [place] [address] Simulation Technician: Jean Aldrich MD Protein Ql (U) Negative Normal NEG [facility] Comment on above: Performed By: #### U A, UMICAO #### [address] [place] [address] Simulation Technician: Jean Aldrich MD Spec. [place],Ur 1.025 High 1.010-1.02 0 [facility] Comment on above: Performed By: #### U A, UMICAO #### [facility] [address] [place] [address] [place] [address] Simulation Technician: Jean Aldrich MD Urobilinogen,Ur ELEVATED Abnormal NORM [facility] Comment on above: Performed By: #### U A, UMICAO #### [address] [place] [address] Simulation Technician: Jean Aldrich MD Urinalysis,Microon 3 Bacteria 4+ Abnormal NONE [facility] Comment on above: Performed By: #### U A, UMICAO #### [address] [place] [address] Simulation Technician: Jean Aldrich MD Epithelial cells LM Ql (Urin e sed) 5 TO 10 Normal 0-25 [facility] Comment on above: Performed By: #### U A, UMICAO #### [address] [place], [place] [id number] Simulation Technician: Jean Aldrich MD Mucus Strands 3+ Abnormal NONE [facility] Comment on above: Performed By: #### U A, UMICAO #### [facility] [address] [place], [place] [id number] Simulation Technician: Jean Aldrich MD Urine RBC's 2 TO 5 Normal 0-2 [facility] Comment on above: Performed By: #### U A, UMICAO #### [facility] [address] [place], [place] [id number] Simulation Technician: Jean Aldrich MD Urine WBC's 20 TO 50 Normal 0-5 [facility] Comment on above: Performed By: #### U A, KAILEYICAO #### [facility] [address] [place], [place] [id number] Simulation Technician: Jean Aldrich MD CHLAMYDIA/GONOCOCCUS BI ( AB/URINE/PAPon 08-20-2022 Chlamydia trachomatis, BI Negative Normal Negative [facility] Comment on above: Performed By: #### C T/NGNA #### [facility] [address] [place] [address] Dr. Keo Ivory Neisseria gonorrhoeae, BI Negative Normal Negative [facility] Comment on above: Performed By: #### C T/NGNA #### [facility] [address] [place] [address] Dr. Keo Ivory CULTURE URINEon 08-20-2022 CULTURE [...] Trimethoprim/Sulfa methoxazole >=320 R F Normal The [facility] Comment on above: Performed By: #### U RCX #### [facility] [address] [address] [address] Keo Ivory ER URINE PROFILEon 3 Bilirubin Ql (U) Negative Normal NEGATIVE [facility] Comment on above: Performed By: #### U MICRO, PREGU, ERUR #### [facility] [address] [address] [address] Keo Ivory Clarity (U) SL CLOUDY Abnormal CLEAR [facility] Comment on above: Performed By: #### U MICRO, PREGU, ERUR #### [facility] [address] [address] [address] Keo Ivory Color (U) LT. YELLOW Normal YELLOW [facility] Comment on above: Performed By: #### U MICRO, PREGU, ERUR #### [facility] [address] [address] [address] Keo VINESAHD A micrscopic examination will be performed if indicated. Normal [facility] Comment on above: Performed By: #### U MICRO, PREGU, ERUR #### [facility] [address] [address] [address] Keo Ivory Glucose Ql (U) Negative Normal NEGATIVE [facility] Comment on above: Performed By: #### U MICRO, PREGU, ERUR #### [facility] [address] [address] [address] Keo Ivory Hemoglobin Ql (U) TRACE-INTACT Abnormal NEGATIVE [facility] Comment on above: Performed By: #### U MICRO, PREGU, ERUR #### [facility] [address] [address] [address] Keo Ivory Ketones Ql (U) Negative Normal NEGATIVE [facility] Comment on above: Performed By: #### U MICRO, PREGU, ERUR #### [facility] [address] [address] [address] Keo Ivory LEUKOCYTES Negative Normal NEGATIVE [facility] Comment on above: Performed By: #### U MICRO, PREGU, ERUR #### [facility] [address] [address] [address] Keo Ivory Nitrite Ql (U) Positive Abnormal NEGATIVE [facility] Comment on above: Performed By: #### U MICRO, PREGU, ERUR #### [facility] [address] [address] [address] Keo Ivory pH (U) 6.0 [pH] Normal 5-9 [facility] Comment on above: Performed By: #### U MICRO, PREGU, ERUR #### [facility] [address] [address] [address] Keo Ivory SPEC GRAVITY 1.020 Normal 1.005-<=1. 025 [facility] Comment on above: Performed By: #### U MICRO, PREGU, ERUR #### [facility] [address] [place] [address] Dr. Keo Ivory UA PROTEIN Negative Normal NEGATIVE/ TRACE The [facility] Comment on above: Performed By: #### U MICRO, PREGU, ERUR #### [facility] [address] [address] [address] Keo Ivory UR MICRO IND INDICATED Normal [facility] Comment on above: Performed By: #### U MICRO, PREGU, ERUR #### [facility] [address] [address] [address] Keo Ivory Urobilinogen Qn (U) 0.2 {Krishna'U}/dL Normal 0.2 - 1. 0 [facility] Comment on above: Performed By: #### U MICRO, PREGU, ERUR #### [facility] [address] [place] [address] Dr. Keo Ivory URon 08-17-2022 , QUAL Negative Normal NEGATIVE The [facility] Comment on above: Performed By: #### U MICRO, PREGU, ERUR #### [facility] [address] [address] [address] Keo Ivory URINE MICROSCOPIC ONLYon BACTERIA LARGE Abnormal NONE SEEN The [facility] Comment on above: Performed By: #### U MICRO, PREGU, ERUR #### [facility] [address] [place] [address] Dr. Keo Ivory Bacteria identified Cx Nom (U) INDICATED Normal The [facility] Comment on above: Performed By: #### U MICRO, PREGU, ERUR #### [facility] [address] [place] [address] Dr. Keo Ivory CAST NONE SEEN Normal NONE SEEN The [facility] Comment on above: Performed By: #### U MICRO, PREGU, ERUR #### [facility] [address] [address] [address] Keo Ivory Crystals LM Nom (Urine sed) NONE SEEN Normal NONE SEE N [facility] Comment on above: Performed By: #### U MICRO, PREGU, ERUR #### [facility] [address] [place] [address] Dr. Keo Ivory Epithelial cells LM Ql (Urin e sed) FEW Abnormal NONE SEEN /RARE The [facility] Comment on above: Performed By: #### U MICRO, PREGU, ERUR #### [facility] [address] [place] [address] Dr. Keo Ivory MUCOUS NONE SEEN Normal NONE SEEN The [facility] Comment on above: Performed By: #### U MICRO, PREGU, ERUR #### [facility] [address] [place] [address] Dr. Keo Ivory RBC NONE SEEN Abnormal 0-2 The [facility] Comment on above: Performed By: #### U MICRO, PREGU, ERUR #### [facility] [address] [place] [address] Dr. Keo Ivory WBC 5-10 Abnormal NONE SEEN The [facility] Comment on above: Performed By: #### U MICRO, PREGU, ERUR #### [facility] [address] [place] [address] Dr. Keo Ivory SARS-CoV-2 (COVID-19) RNA NA A+probe Ql (Resp)on 11-14-2021 SARS-CoV-2 (COVID-19) RNA BI+probe Ql (Unsp spec) Negative [facility] [employer] Other PREG QUANT HCGon 10-30-2021 HCG QUANT <1 Normal The [facility] Comment on above: Performed By: #### P REGQNT #### [facility] [address] [address] [address] Keo Ivory HCG RANGE SEE BELOW Normal The [facility] Comment on above: Result Comment: 5-50 0-1 WEEK 40-300 1-2 WEEKS 100-1,000 2-3 WEEKS 500-6,000 3-4 WEEKS 5,000-200,000 1-2 MONTHS 10,000-100,000 2-3 MONTHS 3,000-50,000 2ND TRIMESTER 1,000-50,000 3RD TRIMESTER Performed By: #### P REGQNT #### [facility] [address] [address] [address] Keo Ivory Vital Signs Date Time Vital Sign Value Performing Clinician Facility 10-21-2024 15:09-0400 Body weight 78.07 kg Mya RIOS Work Phone: [facility] 10-21-2024 15:09-0400 Diastolic blood pressure 86 mm[Hg] Mya Kaplan PA Work Phone: [facility] 10-21-2024 15:09-0400 Systolic blood pressure 116 mm[Hg] Mya Kaplan PA Work Phone: [facility] 10-15-2024 15:12-0400 Body weight 77.47 kg Mya RIOS Work Phone: [facility] 10-15-2024 15:12-0400 Diastolic blood pressure 78 mm[Hg] Mya Kaplan PA Work Phone: [facility] 10-15-2024 15:12-0400 Systolic blood pressure 118 mm[Hg] Mya Kaplan PA Work Phone: [facility] 09-02-2024 15:09-0400 Body weight 82.44 kg Osmany Jena DO Work Phone: [facility] 09-02-2024 15:09-0400 Diastolic blood pressure 58 mm[Hg] Osmany Jena DO Work Phone: [facility] 09-02-2024 15:09-0400 Systolic blood pressure 106 mm[Hg] Osmany Jena DO Work Phone: [facility] 08-12-2024 15:13-0400 Body weight 81.7 kg Osmany Jena DO Work Phone: [facility] 08-12-2024 15:13-0400 Diastolic blood pressure 72 mm[Hg] Osmany Jena DO Work Phone: [facility] 08-12-2024 15:13-0400 Systolic blood pressure 106 mm[Hg] Osmany Jena DO Work Phone: [facility] 07-16-2024 08:54-0400 Body weight 80.56 kg [facility] Nurse [facility] 07-16-2024 08:54-0400 Diastolic blood pressure 70 mm[Hg] [facility] Nurse [facility] 07-16-2024 08:54-0400 Systolic blood pressure 120 mm[Hg] [facility] Nurse [facility] 12-06-2023 13:05-0400 Body mass index (BMI) [Ratio] 30.87 kg/m2 Amaya MacMain FUSION ANALYST-MECHANICAL MANAGER Work Phone: [facility] 12-06-2023 13:05-0400 Body weight 76.57 kg Amaya MacMain FUSION ANALYST-MECHANICAL MANAGER Work Phone: [facility] 12-06-2023 13:05-0400 Diastolic blood pressure 74 mm[Hg] Amaya MacMain FUSION ANALYST-MECHANICAL MANAGER Work Phone: [facility] 12-06-2023 13:05-0400 Systolic blood pressure 106 mm[Hg] Amaya MacMain FUSION ANALYST-MECHANICAL MANAGER Work Phone: [facility] 11-27-2023 11:11-0400 Body mass index (BMI) [Ratio] 30.35 kg/m2 [employer] Dye Room Helper [facility] 11-27-2023 [id number] Body [facility] 11-27-2023 11:11-0400 Diastolic blood pressure 80 mm[Hg] Pfws Dye Room Helper [facility] 11-27-2023 11:11-0400 Systolic blood pressure 108 mm[Hg] [employer] Dye Room Helper [facility] 11-19-2023 10:04-0400 Body mass index (BMI) [Ratio] 29.62 kg/m2 Sally Fontenoto FUSION ANALYST-MECHANICAL MANAGER Work Phone: [facility] 11-19-2023 10:04-0400 Body weight 73.48 kg Sally Fontenoto FUSION ANALYST-MECHANICAL MANAGER Work Phone: [facility] 11-19-2023 10:04-0400 Diastolic blood pressure 60 mm[Hg] Sally Fontenoto FUSION ANALYST-MECHANICAL MANAGER Work Phone: [facility] 11-19-2023 10:04-0400 Systolic blood pressure 102 mm[Hg] Sally Fontenoto FUSION ANALYST-MECHANICAL MANAGER Work Phone: [facility] 10-10-2023 15:38-0400 Body mass index (BMI) [Ratio] 30.98 kg/m2 Mallika Conn FUSION ANALYST-CNM Work Phone: [facility] 10-10-2023 15:38-0400 Body weight 76.84 kg Mallika Conn FUSION ANALYST-CNM Work Phone: [facility] 10-10-2023 15:38-0400 Diastolic blood pressure 60 mm[Hg] Mallika Conn FUSION ANALYST-CNM Work Phone: [facility] 10-10-2023 15:38-0400 Systolic blood pressure 110 mm[Hg] Mallika Conn FUSION ANALYST-CNM Work Phone: [facility] 09-12-2023 15:22-0400 Body mass index (BMI) [Ratio] 29.89 kg/m2 Mallika Conn FUSION ANALYST-CNM Work Phone: [facility] 09-12-2023 15:22-0400 Body weight 74.12 kg Mallika Conn FUSION ANALYST-CNM Work Phone: [facility] 09-12-2023 15:22-0400 Diastolic blood pressure 60 mm[Hg] Mallika Conn FUSION ANALYST-CNM Work Phone: [facility] 09-12-2023 15:22-0400 Systolic blood pressure 110 mm[Hg] Mallika Conn FUSION ANALYST-CNM Work Phone: [facility] 08-29-2023 13:49-0400 Body mass index (BMI) [Ratio] 29.37 kg/m2 Mallika Conn FUSION ANALYST-CNM Work Phone: [facility] 08-29-2023 13:49-0400 Body weight 72.85 kg Mallika Conn FUSION ANALYST-CNM Work Phone: [facility] 08-29-2023 13:49-0400 Diastolic blood pressure 60 mm[Hg] Mallika Conn FUSION ANALYST-CNM Work Phone: [facility] 08-29-2023 13:49-0400 Systolic blood pressure 120 mm[Hg] Mallika Conn FUSION ANALYST-CNM Work Phone: [facility] 08-28-2023 13:48-0400 Body mass index (BMI) [Ratio] 29.3 kg/m2 Bph 2 [facility] 08-28-2023 13:48-0400 Body weight 72.67 kg Bph 2 [facility] 08-28-2023 13:48-0400 Diastolic blood pressure 64 mm[Hg] Bph 2 [facility] 08-28-2023 13:48-0400 Systolic blood pressure 110 mm[Hg] Bph 2 [facility] 08-23-2023 10:55-0400 Body mass index (BMI) [Ratio] 29.63 kg/m2 Bph Assistant Housekeeping Manager [facility] 08-23-2023 10:55-0400 Body weight 73.48 kg Bph Assistant Housekeeping Manager [facility] 08-23-2023 10:55-0400 Diastolic blood pressure 62 mm[Hg] Bph Assistant Housekeeping Manager [facility] 08-23-2023 10:55-0400 Systolic blood pressure 112 mm[Hg] Bph Assistant Housekeeping Manager [facility] 11-14-2021 17:00-0400 Body height 165.1 cm Amaya Luu Other [employer] Other 11-14-2021 17:00-0400 Body mass index (BMI) [Ratio] 29.95 kg/m2 Amaya Luu Other [employer] Other 11-14-2021 17:00-0400 Body temperature 99 [degF] Amaya Luu Other [employer] Other 11-14-2021 17:00-0400 Body weight 81.65 kg Amaya Luu Other [employer] Other 11-14-2021 17:00-0400 Respiratory rate 16 /min Amaya Luu Other [employer] Other 11-14-2021 17:00-0400 SaO2% (BldA) [Mass fraction] 97 % Amaya Luu Other [employer] Other Encounters Encounter Date Encounter Type Care Provider Facility Start: 10-30-2024 End: 10-30-2024 Clinisync Result Encounter Mya RIOS Work Phone: [facility] Unsolicited Start: 10-30-2024 End: 10-30-2024 Clinisync Result Encounter Mya RIOS Work Phone: [facility] Unsolicited Start: 10-28-2024 End: 10-28-2024 ambulatory OSMANY JENA Not Available Start: 10-28-2024 End: 10-28-2024 Bamboo flowsheet Osmany Jena DO Work Phone: [facility] Start: 10-28-2024 End: 10-28-2024 Bamboo flowsheet Osmany Jena DO Work Phone: [facility] Start: 10-26-2024 End: 10-26-2024 Clinisync Result Encounter Osmany Jena DO Work Phone: [facility] Unsolicited Start: 10-26-2024 End: 10-26-2024 Clinisync Result Encounter Osmany Jena DO Work Phone: [facility] Unsolicited Start: 10-24-2024 End: 10-24-2024 Clinisync Result Encounter Osmany Jena DO Work Phone: [facility] Unsolicited Start: 10-24-2024 End: 10-24-2024 Clinisync Result Encounter Osmany Jena DO Work Phone: [facility] Unsolicited Start: 10-23-2024 End: 10-23-2024 Clinisync Result Encounter Mya RIOS Work Phone: [facility] Unsolicited Start: 10-23-2024 End: 10-23-2024 Clinisync Result Encounter Mya RIOS Work Phone: [facility] Unsolicited Start: 10-21-2024 End: 10-21-2024 ambulatory MYA KAPLAN Not Available Start: 10-21-2024 End: 10-21-2024 Office outpatient visit 15 minutes Mya RIOS Work Phone: [facility] Comment on above: 35 weeks gestation o f ([facility]); Third trimester ([facility]) Start: 10-21-2024 End: 10-21-2024 Bamboo flowsheet Mya RIOS Work Phone: [facility] Start: 10-21-2024 End: 10-21-2024 Bamboo flowsheet Mya RIOS Work Phone: [facility] Start: 10-15-2024 End: 10-15-2024 Office outpatient visit 15 minutes Mya RIOS Work Phone: [facility] Comment on above: Third trimester preg triny ([facility]); 32 weeks gestation of ([facility]); H/O incompetent cervix, currently ([facility]); Noncompliant patient, third trimester ([facility]) Start: 10-15-2024 End: 10-15-2024 ambulatory MYA KAPLAN Not Available Start: 10-15-2024 End: 10-15-2024 Bamboo flowsheet Mya RIOS Work Phone: [facility] Start: 10-15-2024 End: 10-15-2024 Bamboo flowsheet Mya RIOS Work Phone: [facility] Start: 09-22-2024 End: 09-22-2024 ambulatory [facility] Start: 09-22-2024 End: 09-24-2024 Evaluation and management of inpatient [facility] Start: 09-21-2024 End: 09-21-2024 ambulatory NO PCP NO PCP [facility] Start: 09-21-2024 End: 09-21-2024 ambulatory [facility] Start: 09-18-2024 End: 09-22-2024 ambulatory JEAN HUERTAPER [facility] Start: 09-18-2024 End: 09-18-2024 Emergency department patient visit NO PCP NO PCP [facility] Start: 09-02-2024 End: 09-02-2024 Office outpatient [...] Unsolicited Start: 09-01-2024 ambulatory OSMANY R JENA [facility] Start: 08-12-2024 End: 08-12-2024 ambulatory OSMANY JENA Not Available Start: 08-12-2024 End: 08-12-2024 Patient encounter procedure Osmany Jena DO Work Phone: [facility] Work Phone: Start: 08-12-2024 End: 08-12-2024 Periodic preventive med est patient 18-39 yrs Osmany Jena DO Work Phone: [facility] Comment on above: Well woman exam [...] Orders Only Guerrero Johnson APRN-CNM Work Phone: [facility] Comment on above: Urinary tract infect ion in mother during , antepartum (Primary Dx) Start: 07-28-2024 End: 07-28-2024 ambulatory OSMANY JENA Not Available Start: 07-27-2024 End: 07-27-2024 ambulatory OSMANY R JENA [facility] Start: 07-16-2024 End: 07-16-2024 Office outpatient visit 5 minutes [facility] Jena Nurse [facility] Comment on above: GA: 21w2d Start: 07-16-2024 End: 07-16-2024 ambulatory OSMANY JENA Not Available Start: 07-12-2024 End: 03-09-2025 ambulatory TIBERIU S ANNA [facility] Start: 07-06-2024 End: 07-06-2024 ambulatory OSMANY R JENA [facility] Start: 06-25-2024 End: 06-25-2024 Emergency department patient visit NO PCP NO PCP [facility] Start: 06-02-2024 End: 06-02-2024 Bamboo flowsheet [...] department patient visit NO PCP NO PCP [facility] Start: 03-15-2024 End: 03-15-2024 Emergency department patient visit NO PCP NO PCP [facility] Start: 12-10-2023 End: 12-10-2023 ambulatory OSMANY JENA Not Available Start: 12-06-2023 End: 12-06-2023 Subsequent care visit Amaya Cruz FUSION ANALYST-MECHANICAL MANAGER Work Phone: [facility] Comment on above: GA: 38w1d Start: 12-06-2023 End: 12-06-2023 ambulatory AMAYA Anders [facility]UTH[facility]E [facility]IN[facility] Start: 11-28-2023 End: 11-28-2023 Telephone encounter Rekha Feldman Physician [facility] Ob[facility]Gynecology Start: 11-27-2023 End: 11-27-2023 ambulatory NO PCP NO PCP [facility] Start: 11-27-2023 End: 11-27-2023 Subsequent care visit [facility] Ob Dye Room Helper [facility] Comment on above: GA: 36w6d Start: 11-19-2023 End: 11-19-2023 Initial care visit Sally Anders Frederick FUSION ANALYST-MECHANICAL MANAGER Work Phone: [facility] Comment on above: GA: 35w5d Start: 11-19-2023 End: 11-19-2023 ambulatory SALLY Chago [facility] Start: 11-17-2023 End: 11-17-2023 ambulatory [facility] Start: 10-22-2023 End: 10-23-2023 Telephone encounter Maddison Collierleda MCGOVERNN Work Phone: [facility] Comment on above: RETURN TO WORK WITHO [employer] Start: 10-21-2023 End: 10-22-2023 ambulatory [facility] Start: 10-17-2023 End: 10-17-2023 ambulatory [facility] Start: 10-10-2023 End: 10-10-2023 Subsequent care visit Mallika Conn FUSION ANALYST-CNM Work Phone: [facility] Comment on above: GA: 30w0d Start: 10-10-2023 End: 10-10-2023 ambulatory [facility] Start: 09-18-2023 End: 09-18-2023 Emergency department patient visit NO PCP NO PCP [facility] Start: 09-12-2023 End: 09-12-2023 Subsequent care visit Mallika Conn FUSION ANALYST-CNM Work Phone: [facility] Comment on above: GA: 26w0d Start: 09-12-2023 End: 09-12-2023 ambulatory [facility] Start: 09-04-2023 End: 09-04-2023 ambulatory [facility] Start: 09-02-2023 End: 09-02-2023 Telephone encounter Mallika Conn FUSION ANALYST-CNM Work Phone: [facility] Start: 08-30-2023 End: 09-02-2023 Telephone encounter Javon Gupta MD Work Phone: [facility] Comment on above: Second trimester pre gnancy (Primary Dx); Late care in second trimester NEW PATIENT REFERRAL Start: 08-29-2023 End: 08-29-2023 Initial care visit Mallika Logan Fabien BELLA-SHANIA Work Phone: [facility] Comment on above: GA: 24w0d Start: 08-29-2023 End: 08-29-2023 ambulatory MALLIKA Logan FABIEN [facility] Start: 08-28-2023 End: 08-28-2023 ambulatory AMAYA Anders [facility] Start: 08-28-2023 End: 08-28-2023 Office outpatient visit 15 minutes [facility] Ob Dye Room Helper 2 [facility] Comment on above: GA: 23w6d Start: 08-23-2023 End: 08-23-2023 ambulatory NO PCP NO PCP [facility] Start: 08-23-2023 End: 08-23-2023 Office outpatient new 30 minutes Bph Assistant Housekeeping Manager [facility] Comment on above: History of d elivery, currently (Primary Dx); History of twin in prior ; History of prior with short cervix, currently ; 23 weeks gestation of Start: 08-22-2023 End: 08-22-2023 Emergency department patient visit NO PCP NO PCP [facility] Start: 05-13-2023 Telephone encounter [facility] Work Phone: [facility] Start: 05-10-2023 Telephone encounter Zayra Navarrete RN [facility] Start: 12-03-2022 End: 12-04-2022 Emergency department patient visit [facility] Start: 11-16-2022 Patient encounter status Osmany Bella DO Work Phone: [facility] Start: 11-04-2022 End: 11-04-2022 Emergency department patient visit REINA FERMIN [facility] Start: 10-30-2022 End: 10-30-2022 Emergency department patient visit FELICIANO CARLTON [facility] Start: 09-13-[address] DOCTOR HOLT Facility :[facility] Start: 08-17-2022 End: 08-17-[address] DOCTOR HOLT Facility:[facility] Start: 11-14-2021 End: 11-14-2021 ambulatory Amaya Luu Other [employer] Other Start: 11-14-2021 Office outpatient ne w 30 minutes Amaya Luu [facility] Start: 10-30-2021 End: 10-31-[address] DOCTOR HOLT Facility:[facility] Start: 08-22-2020 End: 08-28-2023 Patient encounter status [facility] Procedures Date Procedure Procedure Detail Performing Clinician Start: 10-30-2024 US OB BPP W NON-STRESS Mya RIOS Work Phone: Start: 10-26-2024 US OB BPP W NON-STRESS Osmany Jena DO Work Phone: Start: 10-24-2024 [facility] UA (CLEAN/CATCH) TRACER BULLET SECTION SUPERVISOR/MICRO IF IND. Osmany Jena DO Work Phone: Start: 10-23-2024 US OB CERVICAL LENGTH C orey Jena DO Work Phone: Start: 10-23-2024 US OB GROWTH Mya RIOS Work Phone: Start: 10-23-2024 US OB BPP W NON-STRESS Mya RIOS Work Phone: Start: 10-21-2024 Urnls dip stick/tabl et rgnt non-auto w/o micrscp Mya RIOS Work Phone: Start: 09-02-2024 Urnls dip stick/tabl et rgnt non-auto w/o micrscp Osmany Bella DO Work Phone: Start: 09-02-2024 US OB CERVICAL LENGTH C pete Bella DO Work Phone: Start: 09-02-2024 US OB PLACENTA Osmany morrisseyo DO Work Phone: Start: 09-02-2024 TBH UA (CLEAN/CATCH) TRACER BULLET SECTION SUPERVISOR/MICRO IF IND. Osmany Monahano DO Work Phone: Start: 08-12-2024 Urnls dip stick/tabl et rgnt non-auto w/o micrscp Osmany Monahano DO Work Phone: Start: 08-12-2024 IGP,APTIMA HPV,AGE GDLN Osmany Monahano DO Work Phone: Start: 08-03-2024 H/O: section Previous delivery affecting , antepartum Guerrero Haley FUSION ANALYST-CN Work Phone: Start: 09-12-2023 Adult depression screening assessment Mallika Conn FUSION ANALYST-CN Work Phone: Start: 08-29-2023 Adult depression screening assessment Mallika Conn FUSION ANALYST-CN Work Phone: Start: 08-28-2023 Adult depression screening assessment Bph 2 Start: 04-05-2023 Adult depression screening assessment Zayra Navarrete RN Plan of Treatment Date Care Activity Detail Author Start: 10-09-2033 DTaP,Tdap and Td Vaccines (8 - Td or Tdap) DTaP,Tdap and Td Vaccines (8 - Td or Tdap) [facility] Start: 08-03-2025 Adult BMI Screening Adult BMI Screen ing [facility] Start: 08-03-2025 Tobacco Screening Tobacco Screening [facility] Start: 05-15-2025 Screening for Chlamy spencer trachomatis Chlamydia Screening [facility] Start: 01-04-2025 Influenza vaccination Influenz a Vaccine (Season Ended) [facility] Start: 12-27-2024 DTaP,Tdap and Td Vaccines (7 - Td or Tdap) DTaP,Tdap and Td Vaccines (7 - Td or Tdap) [facility] Start: 12-05-2024 Adult BMI Screening Adult BMI Screen ing [facility] Start: 12-05-2024 Tobacco Screening Tobacco Screening [facility] Start: 11-26-2024 Adult BMI Screening Adult BMI Screen ing [facility] Start: 11-26-2024 Tobacco Screening Tobacco Screening [facility] Start: 11-18-2024 Adult BMI Screening Adult BMI Screen ing [facility] Start: 11-18-2024 Tobacco Screening Tobacco Screening [facility] Start: 11-16-2024 Screening for Chlamy spencer trachomatis Chlamydia Screening [facility] Start: 11-10-2024 End: 11-10-2024 Patient encounter procedure 11/10/2024 2:20 PM EDT Office Visit [facility] [address] [place] [id number] Mya Kaplan PA [address] [place], [place] [address] [address] [facility] Start: 10-28-2024 End: 10-28-2024 Patient encounter procedure [facility] Comment on above: Arrived Start: 10-20-2024 Tobacco Screening Tobacco Screening [facility] Start: 10-16-2024 Screening for Chlamy spencer trachomatis Chlamydia Screening [facility] Start: 10-15-2024 End: 10-15-2024 Patient encounter procedure 10/15/2024 3:30 PM EDT Routine [facility] [address] [place] [phone] Mya Kaplan PA [address] [place] [address] Arrived [facility] Comment on above: Arrived Start: 10-15-2024 End: 04-16-2025 US biophysical profile w non stress test US biophysical profile w non stress test Imaging Routine Third trimester ([facility]) 32 weeks gestation of ([facility]) H/O incompetent cervix, currently ([facility]) Noncompliant patient, third trimester ([facility]) Expected: 10/15/2024 (Approximate), Expires: 04/16/2025 [facility] Work Phone: Comment on above: Expected: 10/15/2024 (Approximate), Expires: 04/16/2025 Start: 10-15-2024 End: 02-14-2025 US for US OB follow up transabdominal approach Imaging Routine Third trimester ([facility]) 32 weeks gestation of ([facility]) H/O incompetent cervix, currently ([facility]) Noncompliant patient, third trimester ([facility]) Expected: 10/15/2024, Expires: 02/14/2025 [facility] Comment on above: Expected: 10/15/2024 , Expires: 02/14/2025 Start: 10-09-2024 Adult BMI Screening Adult BMI Screen ing [facility] Start: 10-09-2024 Tobacco Screening Tobacco Screening [facility] Start: 09-16-2024 End: 09-16-2024 Patient encounter procedure 09/16/2024 9:00 AM EDT Routine [facility] [address] [place] [phone] Estephania Murphy, GYPSUM ROOFER [address] [facility] [place] [phone] [facility] Start: 09-11-2024 Adult BMI Screening Adult BMI Screen ing [facility] Start: 09-11-2024 Depression Screening Depression Scre ening [facility] Start: 09-11-2024 Tobacco Screening Tobacco Screening [facility] Start: 09-02-2024 End: 09-02-2024 Patient encounter procedure 09/02/2024 2:40 PM EDT Routine [facility] [address] [place] [phone] Osmany Bella DO [address] [place], [place] [id number] [facility] Start: 08-28-2024 Adult BMI Screening Adult BMI Screen ing [facility] Start: 08-28-2024 Depression Screening Depression Scre ening [facility] Start: 08-28-2024 Screening for Chlamy spencer trachomatis Chlamydia Screening [facility] Start: 08-28-2024 Tobacco Screening Tobacco Screening [facility] Start: 08-27-2024 Adult BMI Screening Adult BMI Screen ing [facility] Start: 08-27-2024 Depression Screening Depression Scre ening [facility] Start: 08-27-2024 Tobacco Screening Tobacco Screening [facility] Start: 08-22-2024 Adult BMI Screening Adult BMI Screen ing [facility] Start: 08-22-2024 Tobacco Screening Tobacco Screening [facility] Start: 08-12-2024 End: 08-12-2024 Patient encounter procedure 08/12/2024 2:50 PM EDT Routine [facility] [address] [facility] [place] [phone] Osmany Bella, DO [address] [facility] [place] [address] [facility] Start: 08-12-2024 End: 08-12-2025 ABO/Rh ABO/Rh Lab Routine Missed menses , unspecified gestational age Expected: 08/12/2024 (Approximate), Expires: 08/12/2025 [facility] Healthcare Comment on above: Expected: 08/12/2024 [...] mellitus screening Expected: 08/12/2024 (Approximate), Expires: 08/12/2025 [facility] Comment on above: Expected: 08/12/2024 (Approximate), Expires: 08/12/2025 Start: 08-12-2024 End: 08-12-2025 Measurement of glucose 1 hour after glucose challenge for glucose tolerance test Glucose tolerance, 1 hour Lab Routine Diabetes mellitus screening Expected: 08/12/2024 (Approximate), Expires: 08/12/2025 [facility] Healthcare Comment on above: Expected: 08/12/2024 (Approximate), Expires: 08/12/2025 Start: 07-28-2024 End: 07-28-2024 Professional / ancillary services management 07/28/2024 2:30 PM EDT Ancillary Procedure [facility] [address] [place] [address] [place] [address] [facility] Start: 07-16-2024 End: 07-16-2025 ABO/Rh ABO/Rh Lab Routine Missed menses , unspecified gestational age Expected: 07/16/2024 (Approximate), Expires: 07/16/2025 [facility] Healthcare Comment on above: Expected: 07/16/2024 (Approximate), Expires: 07/16/2025 Start: 07-16-2024 End: 08-16-2024 Alpha fetoprotein, maternal Alpha fetoprotein, maternal Lab Routine Second trimester 21 weeks gestation of Expected: 07/16/2024 (Approximate), Expires: 08/16/2024 [facility] Comment on above: Expected: 07/16/2024 (Approximate), Expires: 08/16/2024 Start: 07-16-2024 End: 07-16-2025 Blood type and Indirect antibody screen panel - Blood Type and screen Lab Routine Missed menses , unspecified gestational age Expected: 07/16/2024 (Approximate), Expires: 07/16/2025 [facility] Work Phone: Comment on above: Expected: 07/16/2024 (Approximate), Expires: 07/16/2025 Start: 07-16-2024 End: 07-16-2025 Drugs of abuse panel - Urine by Screen method Rapid drug screen, urine Lab Routine , unspecified gestational age Encounter for supervision of normal first in first trimester Expected: 07/16/2024 (Approximate), Expires: 07/16/2025 [facility] Comment on above: Expected: 07/16/2024 (Approximate), Expires: 07/16/2025 Start: 07-16-2024 End: 07-16-2025 US for US OB 14+ weeks anatomy scan Imaging Routine Screening, , for anatomic survey Expected: 07/16/2024, Expires: 07/16/2025 [facility] Comment on above: Expected: 07/16/2024 , Expires: 07/16/2025 Start: 06-19-2024 End: 06-19-2024 ambulatory 06/19/2024 10:30 AM EST Initial [facility] [address] [place] [phone] [facility] Start: 06-19-2024 End: 06-19-2024 Professional / ancillary services management 06/19/2024 10:00 AM EST Ancillary Procedure [facility] [address] [place] [phone] [facility] Start: 04-05-2024 Adult BMI Screening Adult BMI Screen ing [facility] Start: 04-05-2024 Depression Screening Depression Scre ening [facility] Start: 04-05-2024 Tobacco Screening Tobacco Screening [facility] Start: 01-25-2024 Screening for Chlamy spencer trachomatis Chlamydia Screening [facility] Start: 01-05-2024 COVID-19 Vaccine ( season) COVID-19 Vaccine ( season) [facility] Start: 01-05-2024 Influenza vaccination Influenza Vacc ine [facility] Start: 12-06-2023 End: 12-06-2023 Patient encounter procedure 12/06/2023 1:00 PM EDT Routine [facility] [address] [place] [address] Amaya Cruz, FUSION ANALYST-MECHANICAL MANAGER [address] [place] [address] [facility] Start: 11-27-2023 End: 11-27-2023 Patient encounter procedure 11/27/2023 11:00 AM EDT Routine [facility] [address] [place] [phone] [facility] Start: 10-24-2023 End: 10-24-2023 Patient encounter procedure 10/24/2023 2:45 PM EDT Routine [facility] [address] [facility] [address] [place] [address] Mallika Conn, FUSION ANALYST-CNM [address] , [facility] [address] [place] [address] [facility] Start: 10-10-2023 End: 10-10-2023 Patient encounter procedure 10/10/2023 3:30 PM EDT Routine [facility] [address] [facility] [address] [place] [address] Mallika Conn APRN-CNM [address] [facility] [address] [place] [address] [facility] Start: 09-26-2023 End: 09-26-2023 Patient encounter procedure 09/26/2023 3:00 PM EDT Office Visit [facility] [address] [facility] [address] [place] [phone] Sabiha Dior, FUSION ANALYST-MECHANICAL MANAGER [address] [facility] [place] [address] [facility] Start: 09-12-2023 End: 09-12-2023 Patient encounter procedure 09/12/2023 3:30 PM EDT Routine [facility] [address] [facility] [address] [place] [address] Mallika Conn APRN-CNM [address], [address] [place] [address] [facility] Start: 09-09-2023 End: 09-09-2023 Patient encounter procedure 09/09/2023 2:45 PM EDT Office Visit [facility] [address] [place] [address] Sha Bright PA [address] [place] [address] [facility] Start: 09-09-2023 Screening for malign ant neoplasm of cervix Pap Smear [facility] Start: 09-04-2023 End: 09-04-2023 ambulatory 09/04/2023 3:45 PM EDT Initial [facility] [address] [place] [address] Mallika Conn APRN-CNM [address] , [facility] [address] [place] [address] [facility] Start: 09-04-2023 End: 09-04-2023 Patient encounter procedure 09/04/2023 8:15 AM EDT Appointment [facility] [address] [place] [address] [facility] Start: 08-28-2023 End: 08-28-2023 ambulatory 08/28/2023 1:00 PM EDT Initial [facility] [address] [place] [address] [facility] Start: 08-28-2023 End: 08-28-2023 Patient encounter procedure 08/28/2023 12:30 PM EDT Appointment [facility] [address] [place] [address] [facility] Start: 08-23-2023 End: 08-22-2024 US for in second or third trimester Ultrasound greater than 14 weeks single transabdominal Imaging Routine History of delivery, currently History of twin in prior History of prior with short cervix, currently Expected: 08/23/2023, Expires: 08/22/2024 [facility] Comment on above: Expected: 08/23/2023 , Expires: 08/22/2024 Start: 08-23-2023 End: 08-22-2024 US MFM with or without consult US MFM with or without consult Imaging Routine History of delivery, currently History of twin in prior History of prior with short cervix, currently Expected: 08/23/2023, Expires: 08/22/2024 [facility] [employer] Work Phone: Comment on above: Expected: 08/23/2023 , Expires: 08/22/2024 Start: 01-04-2023 COVID-19 Vaccine ( season) COVID-19 Vaccine () [facility] Start: 01-04-2023 Influenza vaccination Influenza Vacc ine [facility] Start: 2020 Adult BMI Follow Up Plan Adult BMI Follow Up Plan [facility] End: 08-28-2024 Bacteria identified in Urine by Culture Urine Culture Microbiology Routine Second trimester Late care affecting in second trimester 1 Occurrences starting 08/29/2023 until 08/28/2024 [facility] Comment on above: 1 Occurrences starti ng 08/29/2023 until 08/28/2024 Bacteria identified in Urine by Culture Urine Culture Microbiology Routine Second trimester Late care affecting in second trimester 08/29/2023 9:47 PM EDT [facility] Bacteria identified in Urine by Culture Urine culture Microbiology Routine Missed menses Ordered: 07/16/2024 [facility] Comment on above: Ordered: 07/16/2024 End: 08-27-2024 [facility] Car[facility] Lab Routine Screening for genetic disease carrier status 1 Occurrences starting 08/28/2023 until 08/27/2024 [facility] Comment on above: 1 Occurrences starti ng 08/28/2023 until 08/27/2024 End: 08-25-2024 CBC W Auto Differential panel - Blood CBC auto differential Lab Routine care, subsequent , second trimester Short interval between pregnancies affecting in second trimester, antepartum 1 Occurrences starting 08/28/2023 until 08/25/2024 [employer] Work Phone: Comment on above: 1 Occurrences starti ng 08/28/2023 until 08/25/2024 CBC W Auto Different ial panel - Blood CBC and differential Lab Routine Missed menses , unspecified gestational age Ordered: 07/16/2024 [facility] [employer] Comment on above: Ordered: 07/16/2024 CHLAMYDIA TRACHOMATI S (GENITO/STI) CHLAMYDIA TRACHOMATIS (GENITO/STI) Lab Routine STD exposure Ordered: 08/12/2024 [facility] [employer] Comment on above: Ordered: 08/12/2024 End: 08-28-2024 Chlamydia/GC by PCR [facility] Chlamydia/GC by PCR [facility] Microbiology Routine Screen for STD (sexually transmitted disease) Second trimester Late care affecting in second trimester 1 Occurrences starting 08/29/2023 until 08/28/2024 [employer] Work Phone: Comment on above: 1 Occurrences starti ng 08/29/2023 until 08/28/2024 Chlamydia/GC by PCR Dany Swab Chlamydia/GC by PCR [facility] Microbiology Routine Screen for STD (sexually transmitted disease) Second trimester Late care affecting in second trimester 08/29/2023 9:49 PM EDT [facility] Cytology Cervical or vaginal smear or scraping study Pap Smear Pathology and Cytology Routine Well woman exam with routine gynecological exam Ordered: 08/12/2024 [facility] [employer] Work Phone: Comment on above: Ordered: 08/12/2024 End: 08-28-2024 ECG 12 lead ECG 12 lead ECG Routine Late care affecting in second trimester Chest pain, unspecified type Heart palpitations 1 Occurrences starting 08/29/2023 until 08/28/2024 [facility] Comment on above: 1 Occurrences starti ng 08/29/2023 until 08/28/2024 End: 04-26-2025 Glucose 1h post 50g load Glucose 1h post 50g load Lab Routine Second trimester Late care in second trimester 1 Occurrences starting 08/30/2023 until 08/29/2024 [employer] Phone: Comment on above: 1 Occurrences starti ng 08/30/2023 until 08/29/2024 End: 08-28-2024 Glucose Tolerance, Fasting Glucose Tolerance, Fasting Lab Routine Second trimester Late care affecting in second trimester 1 Occurrences starting 08/29/2023 until 08/28/2024 [facility] Occurrences starti ng 08/29/2023 until 08/28/2024 End: 08-28-2024 Glucose, 2 hour Post 75gm load Glucose, 2 hour Post 75gm load Lab Routine Second trimester Late care affecting in second trimester 1 Occurrences starting 08/29/2023 until 08/28/2024 [facility] above: 1 Occurrences starti ng 08/29/2023 until 08/28/2024 Hemoglobin A1c/Hemoglobin.total in Blood Hemoglobin A1c Lab Routine Missed menses , unspecified gestational age Ordered: 07/16/2024 [facility] Comment on above: Ordered: 07/16/2024 End: 08-25-2024 Hepatitis B surface antigen Hepatitis B surface antigen Lab Routine care, subsequent , second trimester Short interval between pregnancies affecting in second trimester, antepartum 1 Occurrences starting 08/28/2023 until 08/25/2024 [facility] [employer] Comment on above: 1 Occurrences starti ng 08/28/2023 until 08/25/2024 Hepatitis B virus surface Ag [Presence] in Serum or Plasma by Immunoassay Hepatitis B surface antigen Lab Routine Missed menses , unspecified gestational age Ordered: 07/16/2024 [facility] Comment on above: Ordered: 07/16/2024 Hepatitis C virus Ab [Presence] in Serum or Plasma by Immunoassay Hepatitis C antibody Lab Routine Missed menses , unspecified gestational age Ordered: 07/16/2024 [facility] Comment on above: Ordered: 07/16/2024 End: 08-25-2024 Hepatitis C(HCV) Ab w/ Reflex to PCR Hepatitis C(HCV) Ab w/ Reflex to PCR Lab Routine care, subsequent , second trimester Short interval between pregnancies affecting in second trimester, antepartum 1 Occurrences starting 08/28/2023 until 08/25/2024 [facility] Comment on above: 1 Occurrences starti ng 08/28/2023 until 08/25/2024 End: 08-25-2024 HIV 1&2 AB/AG Screen (P24 AG) HIV 1&2 AB/AG Screen (P24 AG) Lab Routine care, subsequent , second trimester Short interval between pregnancies affecting in second trimester, antepartum 1 Occurrences starting 08/28/2023 until 08/25/2024 [facility] Comment on above: 1 Occurrences starti ng 08/28/2023 until 08/25/2024 HIV-1/HIV-2 antigen/antibody combination immunoassay HIV-1 and HIV-2 antibodies Lab Routine Missed menses , unspecified gestational age Ordered: 07/16/2024 [facility] Comment on above: Ordered: 07/16/2024 HIV-1/HIV-2 antigen/antibody combination immunoassay HIV-1 and HIV-2 antibodies Lab Routine Missed menses , unspecified gestational age Ordered: 08/12/2024 [facility] Comment on above: Ordered: 08/12/2024 Neisseria gonorrhoea e DNA [Presence] in Unspecified specimen by BI with probe detection Neisseria gonorrhea DNA probe, direct Lab Routine STD exposure Ordered: 08/12/2024 [facility] Comment on above: Ordered: 08/12/2024 End: 08-27-2024 [facility] Lab Routine Encounter for screening for other genetic defects 1 Occurrences starting 08/28/2023 until 08/27/2024 [facility] Comment on above: 1 Occurrences starti ng 08/28/2023 until 08/27/2024 Reagin Ab [Presence] in Serum by RPR RPR Lab Routine Missed menses , unspecified gestational age Ordered: 07/16/2024 [facility] Healthcare Comment on above: Ordered: 07/16/2024 Rubella antibody, IgG Rubella an tibody, IgG Lab Routine Missed menses , unspecified gestational age Ordered: 07/16/2024 [facility] Comment on above: Ordered: 07/16/2024 End: 08-25-2024 Rubella IGG immune status Rubella IGG immune status Lab Routine care, subsequent , second trimester Short interval between pregnancies affecting in second trimester, antepartum 1 Occurrences starting 08/28/2023 until 08/25/2024 [facility] Comment on above: 1 Occurrences starti ng 08/28/2023 until 08/25/2024 End: 08-27-2024 Sickle solubility Sickle solubility Lab Routine care, subsequent , second trimester 1 Occurrences starting 08/28/2023 until 08/27/2024 [facility] Comment on above: 1 Occurrences starti ng 08/28/2023 until 08/27/2024 SURESWAB(R) ADVANCED VAGINITIS PLUS, TMA SURESWAB(R) ADVANCED VAGINITIS PLUS, TMA Pathology and Cytology Routine Vaginal discharge Ordered: 08/12/2024 [facility] Comment on above: Ordered: 08/12/2024 End: 08-25-2024 Syphilis Total(Unknown Syphilis Status) Syphilis Total(Unknown Syphilis Status) Lab Routine care, subsequent , second trimester Short interval between pregnancies affecting in second trimester, antepartum 1 Occurrences starting 08/28/2023 until 08/25/2024 [facility] Comment on above: 1 Occurrences starti ng 08/28/2023 until 08/25/2024 Thyrotropin [Units/volume] in Serum or Plasma TSH Lab Routine Abnormal TSH Ordered: 07/16/2024 [facility] Comment on above: Ordered: 07/16/2024 End: 08-25-2024 Type and screen Type and screen Blood Bank Routine care, subsequent , second trimester Short interval between pregnancies affecting in second trimester, antepartum 1 Occurrences starting 08/28/2023 until 08/25/2024 [facility] Comment on above: 1 Occurrences starti ng 08/28/2023 until 08/25/2024 End: 08-28-2024 Vaginitis Panel PCR Vaginitis Panel PCR Microbiology Routine Screen for STD (sexually transmitted disease) Second trimester Late care affecting in second trimester 1 Occurrences starting 08/29/2023 until 08/28/2024 [facility] Comment on above: 1 Occurrences starti ng 08/29/2023 until 08/28/2024 Vaginitis Panel PCR Vaginitis Pa arnie PCR Microbiology Routine Screen for STD (sexually transmitted disease) Second trimester Late care affecting in second trimester 08/29/2023 9:49 PM EDT [facility] End: 08-25-2024 Varicella zoster antibody, IgG Varicella zoster antibody, IgG Lab Routine care, subsequent , second trimester Short interval between pregnancies affecting in second trimester, antepartum 1 Occurrences starting 08/28/2023 until 08/25/2024 [facility] Comment on above: 1 Occurrences starti ng 08/28/2023 until 08/25/2024 Immunizations Immunization Date Immunization Notes Care Provider Fa cility 10-10-2023 diphtheria, tetanus toxoids and acellular pertussis vaccine, unspecified formulation Mallika Conn APRN-CN Work Phone: [facility] 10-10-2023 tetanus toxoid, redu libby diphtheria toxoid, and acellular pertussis vaccine, adsorbed Mallika Conn APRN-CNM Work Phone: [facility] 10-10-2023 Immunization, In Cli aletha,; Translations: [Drug or medicament (substance)] Mallika Conn APRN-CNChago Work Phone: [facility] 03-12-2019 influenza, injectabl e, quadrivalent, preservative free Zayra Navarrete RN [facility] 03-12-2019 influenza virus vacc ine, unspecified formulation Zayra Navarrete RN [facility] 12-28-2016 Human Papillomavirus 9-valent vaccine Mallika Conn APRN-SHANIA Work Phone: [facility] 12-28-2016 meningococcal oligosaccharide (groups A, C, Y and W-135) diphtheria toxoid conjugate vaccine (MCV4O) Mallika Conn APRN-CNChago Work Phone: [facility] 12-27-2014 tetanus toxoid, redu libby diphtheria toxoid, and acellular pertussis vaccine, adsorbed Mallika Conn APRN-CNM Work Phone: [facility] 03-13-2007 influenza, seasonal, injectable Mallika Conn APRN-CNChago Work Phone: [facility] 12-04-2006 diphtheria, tetanus toxoids and acellular pertussis vaccine Mallika Fabien FUSION ANALYST-CNM Work Phone: [facility] 12-04-2006 measles, mumps and rubella virus vaccine Mallika Conn FUSION ANALYST-CNM Work Phone: [facility] 12-04-2006 poliovirus vaccine, inactivated Mallika Fabien FUSION ANALYST-CNM Work Phone: [facility] 02-25-2006 influenza, seasonal, injectable Mallika Fabien FUSION ANALYST-CNM Work Phone: [facility] 10-19-2003 diphtheria, tetanus toxoids and acellular pertussis vaccine, unspecified formulation Mallika Fabien FUSION ANALYST-CNM Work Phone: [facility] 10-19-2003 haemophilus influenz ae type b vaccine, conjugate unspecified formulation Mallika Fabien FUSION ANALYST-CNM Work Phone: [facility] 10-19-2003 hepatitis B vaccine, pediatric or pediatric/adolescent dosage Mallika Fabien FUSION ANALYST-CNM Work Phone: [facility] 10-19-2003 measles, mumps and rubella virus vaccine Mallika Fabien FUSION ANALYST-CNM Work Phone: [facility] 05-25-2003 diphtheria, tetanus toxoids and acellular pertussis vaccine, unspecified formulation Mallika Fabien FUSION ANALYST-CNM Work Phone: [facility] 05-25-2003 haemophilus influenz ae type b vaccine, conjugate unspecified formulation Mallika Fabien RIVASN-CNM Work Phone: [facility] 05-25-2003 hepatitis B vaccine, pediatric or pediatric/adolescent dosage Mallika Fabien FUSION ANALYST-CNM Work Phone: [facility] 05-25-2003 pneumococcal conjuga te vaccine, 7 valent Mallikaher Fabien RIVASN-CNM Work Phone: [facility] 05-25-2003 poliovirus vaccine, unspecified formulation Mallika Fabien RIVASN-CNM Work Phone: [facility] 02-24-2003 diphtheria, tetanus toxoids and acellular pertussis vaccine, unspecified formulation Mallika Conn FUSION ANALYST-CNM Work Phone: [facility] 02-24-2003 haemophilus influenz ae type b vaccine, conjugate unspecified formulation Mallika Conn FUSION ANALYST-CNM Work Phone: [facility] 02-24-2003 pneumococcal conjuga te vaccine, 7 valent Mallika Conn FUSION ANALYST-CNM Work Phone: [facility] 02-24-2003 poliovirus vaccine, unspecified formulation Mallika Conn FUSION ANALYST-CNM Work Phone: [facility] 2002 diphtheria, tetanus toxoids and acellular pertussis vaccine, unspecified formulation Mallika Conn FUSION ANALYST-CNM Work Phone: [facility] 2002 haemophilus influenz ae type b vaccine, conjugate unspecified formulation Mallika Conn FUSION ANALYST-CNM Work Phone: [facility] 2002 hepatitis B vaccine, pediatric or pediatric/adolescent dosage Mallika Conn FUSION ANALYST-CNM Work Phone: [facility] 2002 pneumococcal conjuga te vaccine, 7 valent Mallika Conn FUSION ANALYST-CNM Work Phone: [facility] 2002 poliovirus vaccine, unspecified formulation Mallika Conn FUSION ANALYST-CNM Work Phone: [facility] Payers Date Payer Category Payer Medicaid [id number] 15 2023 Medicaid [id number] 2002 Unknown [id number] 2.16.84 0.1.449024.3.579.2.593 2002 Unknown [id number] 2.16.84 0.1.285903.3.579.2.593 2002 Unknown [id number] 2.16.84 0.1.055407.3.579.2.593 2002 Unknown [id number] 2.16.8 40.1.865289.3.579.2. 2002 Unknown [id number] 2.16.8 40.1.506582.3.579.2. 2002 Unknown [id number] 2.16.8 40.1.787432.3.579.2. 2002 Unknown [id number] 2.16.8 40.1.534772.3.579.2.1285 2002 Unknown [id number] 2.16.8 40.1.615384.3.579.2.1285 2002 Unknown [id number] 2.16.8 40.1.492963.3.579.2.1285 2002 Unknown [id number] 2.16.8 40.1.945460.3.579.2.1285 2002 Unknown [id number] 2.16.8 40.1.597343.3.579.2.1285 2002 Unknown [id number] 2.16.8 40.1.599519.3.579.2.1285 2002 Unknown [id number] 2.16.8 40.1.805611.3.579.2.1285 2002 Unknown [id number] 2.16.8 40.1.424647.3.579.2.1285 2002 Unknown [id number] 2.16.8 40.1.259704.3.579.2.1285 2002 Unknown [id number] 2.16.8 40.1.367593.3.579.2.1285 2002 Unknown [id number] 2.16.8 40.1.224557.3.579.2.1285 2002 Unknown [id number] 2.16.8 40.1.595990.3.579.2.1285 2002 Unknown [id number] 2.16. 840.1.590320.3.579.2.1285 2002 Unknown [id number] 2.16. 840.1.349961.3.579.2.1285 2002 Unknown [id number] 2.16. 840.1.045430.3.579.2.1285 2002 Unknown [id number] 2.16. 840.1.486987.3.579.2.1285 2002 Unknown [id number] 2.16. 840.1.962671.3.579.2.1285 2002 Unknown [id number] 2.16. 840.1.222877.3.579.2.1285 2002 Unknown [id number] 2.16. 840.1.964609.3.579.2.1285 2002 Unknown [id number] 2. 840.1.107152.3.579.2.1285 2002 Unknown [id number] 2.16.8 40.1.812566.3.579.2.1285 2002 Unknown [id number] 2.16.8 40.1.756244.3.579.2.1285 2002 Unknown [id number] 2.16.8 40.1.970190.3.579.2.1285 2002 Unknown [id number] 2.16.8 40.1.089343.3.579.2.1285 2002 Unknown [id number] 2.16.8 40.1.935848.3.579.2.1285 2002 Unknown [id number] 2.16.8 40.1.181819.3.579.2.1285 2002 Unknown [id number] 2.16. 840.1.404356.3.579.2.1285 2002 Unknown [id number] 2.16. 840.1.020663.3.579.2.1285 2002 Unknown [id number] 2.16. 840.1.756861.3.579.2.1286 2002 Unknown [id number] 2.16. 840.1.740964.3.579.2.1286 2002 Unknown [id number] 2.16. 840.1.426044.3.579.2.1286 2002 Unknown [id number] 2.16.8 40.1.493098.3.579.2.9 2002 Unknown [id number] 2.16.8 40.1.164414.3.579.2.9 2002 Unknown [id number] 2.16.8 40.1.508405.3.579.2.9 2002 Unknown [id number] 2.16.84 0.1.577100.3.579.2.9 2002 Unknown [id number] 2.16.84 0.1.486076.3.579.2.9 2002 Unknown [id number] 2.16.84 0.1.394899.3.579.2.9 2002 Unknown [id number] 2.16.84 0.1.016343.3.579.2.9 2002 Unknown [id number] 2.16.84 0.1.883563.3.579.2.9 2002 Unknown [id number] 2.16.84 0.1.600267.3.579.2.1259 1957 [place] [address] [id number] 2.16.840.1.146907.19 Social History Date Type Detail Facility Start: 03-26-2021 End: 08-03-2024 [facility] Start: 2002 Sex assigned at Not on file [facility] Start: 06-23-2022 Tobacco smoking status WIIS Never smoked tobacco [facility] Start: 06-23-2022 Tobacco use and exposure Smokeless tobacco non-user [facility] Start: 08-23-2023 End: 08-03-2024 Alcoholic beverage intake Ex-drinker (finding) [facility] Start: 03-26-2021 End: 08-03-2024 History of Social function [facility] Do you belong to any clubs or organizations such as yazidi groups, unions, fraternal or athletic groups, or school groups? No [facility] How often do you att end meetings of the clubs or organizations you belong to? Patient declined [facility] Are you now , , , , never or living with a partner? Living with partner [facility] How often to you hav e a drink containing alcohol? Never [facility] How hard is it for y ou to pay for the very basics like food, housing, medical care, and heating Somewhat hard [facility] Do you feel stress - tense, restless, nervous, or anxious, or unable to sleep at night because your mind is troubled all the time - these days [OSQ] To some extent [facility] Start: 03-26-2021 Education 12 [facility] Start: 03-28-2023 [facility] Start: 03-15-2024 Alcohol Comment occasionally [facility] Start: 12-09-2014 Sex Female (finding) [facility] Goals Date Patient Goal Desired Activity /State [...] Jennifer Wiley LPN - 10/15/2024 3:30 PM EDTHelena Rea, ANTELMO - 09/02/2024 2:40 PM BIJANHelena Rea, ANTELMO - 08/12/2024 2:50 PM EDTPatient InstructionsAttachments Note [...] nursing note reviewed. Exam conducted with a education intern present. Vitals: There is no height or [...] is now able to resume visitation at [facility] Facility as previously scheduled to see her twins. Patient verbalized understanding and will return to clinic in 1 week. Documented by Carroll Wiley LPN on behalf of: BLANCA Gibson documented in this encounter [facility] 10-15-2024 History of Present illness Narrative Reason [...] nursing note reviewed. Exam conducted with a education intern present. Vitals: There is no height or weight on file to calculate BMI. BP: 118/78 No LMP recorded. Patient is . ASSESSMENT & PLAN ICD-10-CM 1. Third trimester ([facility]) Z34.93 2. 32 weeks gestation of ([facility]) Z3A.32 3. H/O incompetent cervix, currently ([facility]) O09.299 4. Noncompliant patient, third trimester ([facility]) O09.893 Z91.199 Patient presents today for a routine obstetrics appointment. Patient is currently 34w2d with a Estimated Date of Delivery: 11/24/24. Patient made aware that she will need to start NST/BPP and growth scan to be started at [facility]. Patient given orders and sent to [facility] and [facility] Scheduling. Patient to return to clinic in 1 week for routine OB appointment. Documented by Carroll Wiley LPN on behalf of: BLANCA Gibson documented in this encounter [facility] 09-02-2024 History of Present illness Narrative Reason [...] 08/22/2020 Episode of recurrent major depressive disorder ([facility]) 07/06/2021 Gastroesophageal reflux disease with esophagitis without [...] nursing note reviewed. Exam conducted with a education intern present. Vitals: There is no height or [...] Osmany Bella DO documented in this encounter [facility] 08-12-2024 History of Present illness Narrative [...] nursing note reviewed. Exam conducted with a education intern present. Vitals: There is no height or [...] Osmany Bella DO documented in this encounter [facility] 08-03-2024 History of Present illness Narrative While in triage pt. Advised of Rx. For keflex for presumed UTI. Rx. For keflex sent. Urine culture pending and pt. Advised she may be advised to stop the Rx. If comes back negative. Pt. Verbalized understanding. FRANCES Littlejohn 08/03/24 1218 documented in this encounter [facility] 07-16-2024 History of Present illness Narrative Reason [...] or undercooked meat, and stay away from [facility]. Patient has also been advised to not [...] or questions. Nurse Visit Completed by: Kimi Olsne LPN documented in this encounter [facility] 06-02-2024 History of Present illness Narrative Reason for Appointment: Patient ID: Laura Pond is a 23 y.o. female who presents for ER Follow-up (Pt was at [facility] ER on 05/15/2024 for vaginal bleeding. [...] nursing note reviewed. Exam conducted with a education intern present. Vitals: There is no height or [...] Osmany Bella DO documented in this encounter [facility] 12-06-2023 History of Present illness Narrative [...] her care and planning to deliver at [place]. OBJECTIVE Current Medications: Current Outpatient Medications: acetaminophen [...] Results Component Value Date GLUF 71 08/30/2023 [id number] 115 (L) 08/30/2023 Physical Exam: General: Patient [...] care 4. Hx of delivery, currently Continue [facility] Reviewed warning signs including: Decreased movement Vaginal bleeding or fluid leaking Regular painful contractions Severe headache, not relieved with Tylenol Vision changes such as blurring or seeing floaters Right upper abdominal pain Sudden increase in swelling She was instructed to go to [facility] for evaluation if she experiences any of these symptoms. Keep appt with Dr. Bella 12/10/23 WILMER Stoll 12/06/23 0632 documented in this encounter [facility] 11-28-2023 Miscellaneous Notes Received breast pump orders from [employer]. Per the patient she would like the [employer] prescription signed. Sally Newman CNP signed the [employer] prescription. I put a note on the [employer] request stating the patient chose a different company & faxed it back. documented in this encounter [facility] 11-28-2023 Telephone encounter Note Received breast pump orders from [employer]. Per the patient she would like the [employer] prescription signed. Sally Newman CNP signed the [employer] prescription. I put a note on the [employer] request stating the patient chose a different company & faxed it back. [facility] 11-27-2023 History of Present illness Narrative Routine OB Visit 23 y.o. at 36w6d. Positive movement. No regular contractions, vaginal bleeding or leaking of fluid. Patient was seen at 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 Educational information given 7. Questions answered 8. Follow up 1 week WILMER Berumen 11/27/23 1138 Pt went to [facility] on 11-21 for pain. Pt also states she is transferring to Dr Bella on 12-04 when her insurance changes and plans on delivering at [place]. documented in this encounter [facility] 11-27-2023 Instructions WILMER Berumen - 11/27/2023 11:00 AM EDT The Centers for Disease Control and Prevention (CDC) recommends the following steps to help babies sleep safely and reduce the risk of sleep-related deaths, including SIDS: Place your baby on [...] be sent through Care Everywhere.Deciding to breastfeed (Armenian)documented in this encounter [facility] 11-19-2023 History of Present illness Narrative Initial [...] when/how to notify provider. Reviewed CNM / MECHANICAL MANAGER care, collaboration & referral to [employer] as needed. Reviewed course of care. exam complete. Discussed CDC recommendation for exclusive for the first 6 months. Patient has been covid vaccinated. Discussed recommendations in . Patient is taking a vitamin. All questions answered. Educational materials provided. RTC one week for visit. WILMER Berumen 11/19/23 1053 documented in this encounter [facility] 10-22-2023 Miscellaneous Notes Laura called asking for [...] to the fax that pt provided at [phone] documented in this encounter [facility] 10-22-2023 Telephone encounter Note Laura called asking [...] afternoon upon her return. Laura verbalized understanding. [facility] Work Phone: 10-22-2023 Telephone encounter Note Staff [...] to keep her energy up when working. [facility] 10-22-2023 Telephone encounter Note Spoke with pt, sent return work note to the fax that pt provided at [phone] [facility] 10-10-2023 History of Present illness Narrative Patient [...] paper. They do not currently have a marketing and development coordinator. The person planning to adopt the baby is looking for a marketing and development coordinator. Laura is agreeable to referral to social [...] carrier Episode of recurrent major depressive disorder ([facility]) History of delivery Hx of thyroid disease [...] up in 2 Weeks. FRANCES Ward 10/10/23 7856 documented in this encounter [facility] 09-12-2023 History of Present illness Narrative Patient [...] carrier Episode of recurrent major depressive disorder ([facility]) History of delivery Hx of thyroid disease [...] Ward 09/12/23 1618 documented in this encounter [facility] 09-02-2023 Miscellaneous Notes Attempted to call, [employer] message sent. Staff will attempt to follow-up. New Medications Ordered This Visit Medications miconazole (MICOTIN-7) 100 mg vaginal suppository Sig: Insert 1 suppository (100 mg total) into the vagina nightly for 7 days. Dispense: 7 suppository Refill: 0 documented in this encounter [facility] 09-02-2023 Telephone encounter Note Attempted to call, [employer] message sent. Staff will attempt to follow-up. New Medications Ordered This Visit Medications miconazole (MICOTIN-7) 100 mg vaginal suppository Sig: Insert 1 suppository (100 mg total) into the vagina nightly for 7 days. Dispense: 7 suppository Refill: 0 [facility] 08-30-2023 Miscellaneous Notes First Attempt Made from [...] at their earliest convenience to do so. [employer] provided callback number for scheduling or to address any questions or concerns they may have. 3rd and final attempt: Sheet [employer] unable to make contact with patient by phone - Unable to contact letter mailed to patient requesting a call back so we are able to schedule them in for a new patient appointment and update their contact information. Letter mailed to patient on: 09/02/2023 - mmv. documented in this encounter [facility] 08-30-2023 Telephone encounter Note First Attempt Made [...] INSURANCE INFORMATION TO THEIR NEW PATIENT APPOINTMENT [facility] 08-30-2023 Telephone encounter Note 2nd attempt: Called and left patient a voicemail once more letting them know we have received their referral, are ready to schedule, and to call us back at their earliest convenience to do so. [employer] provided callback number for scheduling or to address any questions or concerns they may have. [facility] 08-30-2023 Telephone encounter Note 3rd and final attempt: [employer] unable to make contact with patient by phone - Unable to contact letter mailed to patient requesting a call back so we are able to schedule them in for a new patient appointment and update their contact information. Letter mailed to patient on: 09/02/2023 - mmv. [facility] 08-30-2023 Miscellaneous Notes This is notification that we have received a referral for the patient. Please reach out to schedule new patient appointment in your office. Please check the referral tab in appt desk for details and to make sure to assign referral or schedule off of it. Thank you. documented in this encounter [facility] 08-30-2023 Telephone encounter Note This is notification that we have received a referral for the patient. Please reach out to schedule new patient appointment in your office. Please check the referral tab in appt desk for details and to make sure to assign referral or schedule off of it. Thank you. [facility] 08-29-2023 History of Present illness Narrative Patient [...] lab, instructions given to give kit to digital strategy specialist in lab. Patient verbalizes understanding. Subjective Laura [...] but has an appointment to start counseling [facility] on 09/18/2023. We discussed antidepressant/antianxiety medication in [...] FT4 ECG 12 lead [facility] [place], [place] Ambulatory referral to Cardiology ([facility]) Chronic intractable headache, unspecified headache type Relevant Orders [facility] [place], [place] Chest pain, unspecified type Relevant Orders [...] Ward 08/29/23 1700 documented in this encounter [facility] 08-28-2023 Evaluation + Plan note Associated Problem(s): Slow transit constipation Hydration, fibers Colace HS daily [facility] 08-28-2023 Miscellaneous Notes Associated Problem(s): Slow transit constipation Hydration, fibers Colace HS daily documented in this encounter [facility] 08-28-2023 History of Present illness Narrative Patient here for initial OB intake visit accompanied by her auntie (friend of the family); this is an unplanned , accepting about , FOB Ralph and family supportive supportive. This will be their third child together (recent set of twins at 25 weeks gestation, born 02/2023). Patient had a Nexplanon placed 04/05/2023 at [facility], found to be with Nexplanon in place at ED visit in [place]. Nexplanon was removed per this office 08/23/2023. Patient lives in [place], discussed availability of CNM office in [place], patient interested and will continue the remainder [...] this visit. Discussed Survey US; scheduled at [facility] 09/04/2023. Patient has vitamins she is taking. All questions asked and answered to patient's satisfaction. To return for OB visit with provider; plan PE with Pap & cultures next visit, patient verbalizes understanding. 22 y.o. at 23w6d. No CTX, VB, LOF. positive FM. Presents for Iitial OB Interview. She had a dating US today at [facility]. She has a [facility] survey 09-04-23 at [place] [id number]. Reviewed signs of labor and movement 2. [...] 5-6 contractions an hour - [facility]States that she always had cramping with her twin . She delivered them at 25 weeks and they are doing well at home now after a long NICU stay at [facility]. 3. C/o constipation. Discussed fibers and hydration. Colace ordered 4. C/o headaches. States that she always has headaches. Magnesium ordered. States that she has caffeine daily - Pepsi. Discussed trying Tylenol also and staying hydrated. 5, Return 1 wks. With Mallika in [place]..Instructged that if she continues to have >5-6 contractions in 1 hour to call or go to hospital. FRANCES Joseph 08/28/23 1520 FRANCES Joseph 08/28/23 1711 documented in this encounter [facility] 08-23-2023 History of Present illness Narrative NEW PATIENT - Nexplanon removal Laura Pond is a 22 year old at 23w1d by 19w US (performed 07/30/23 [facility]). Pt has Nexplanon, placed 04/05/23 ([facility]). She is 6 months . She [...] appt for Survey is 09/04/23, staffed called FRANCISCO and Nagi but there are no openings. Therefore will obtain a growth US and cervical length as soon as possible and schedule pt for first opening for survey. After IOB, she may transfer to [place] office as that's where she lives. M [...] Stoll 08/23/23 1210 [facility]iscellaneous Notes ----- Message from FRANCES Arnold sent at 05/10/2023 9:53 PM EST ----- Regarding: Needs appt. PLease call patient Saturday05/13/23 to be seen, Nexplanon removal chitra. Thanks Images from the original note were not included. FRANCES Arnold P [facility] Women Appointment Desk PLease call patient Saturday05/13/23 to be seen, Nexplanon removal chitra. Thanks Left message for patient to call office to schedule appt documented in this encounter [facility] 05-13-2023 Telephone encounter Note ----- Message from FRANCES Arnold sent at 05/10/2023 9:53 PM EST ----- Regarding: Needs appt. PLease call patient Saturday05/13/23 to be seen, Nexplanon removal chitra. Thanks [facility] 05-13-2023 Telephone encounter Note Images from the original note were not included. FRANCES Arnold P [facility] Women Appointment Desk PLease call patient Saturday05/13/23 to be seen, Nexplanon removal chitra. Thanks Left message for patient to call office to schedule appt [facility] 05-10-2023 Miscellaneous Notes Patient called and would like to speak with a provider. She had the nexplanon placed on 04/05/23. Since then she complains that she's had migraines that have not been helped with tylenol or motrin and has been really nauseous. Please advise. Called patient & left a message for her to call my [employer] or CNM pager, both numbers given to [...] pt desires neurology consult & appointment at [facility] to speak in person with provider. Advised it would be reasonable to go to ED for this now & definitely to go if worst h/a of life or feeling of tight band of head, changes in vision again. Pt voiced agreement. Will leave office a message to call patient on Saturday to get scheduled chitra. documented in this encounter [facility] 05-10-2023 Telephone encounter Note Patient called and would like to speak with a provider. She had the nexplanon placed on 04/05/23. Since then she complains that she's had migraines that have not been helped with tylenol or motrin and has been really nauseous. Please advise. [facility] 05-10-2023 Telephone encounter Note Called patient & left a message for her to call my [employer] or CNM pager, both numbers given to [...] pt desires neurology consult & appointment at [facility] to speak in person with provider. Advised it would be reasonable to go to ED for this now & definitely to go if worst h/a of life or feeling of tight band of head, changes in vision again. Pt voiced agreement. Will leave office a message to call patient on Saturday to get scheduled chitra. cookdinner 11-14-2021 Evaluation note Encounter Date Diagnosis Assessment [...] occur if testing is performed too soon. [employer] Other Evaluation note* Diagnosis Encounter for follow-up Vaginal bleeding affecting early documented in this encounter [facility]Evaluation [facility]* Diagnosis History of delivery, currently - Primary with history of pre-term labor History of twin in prior Personal history of other genital system and obstetric disorders History of prior with short cervix, currently 23 weeks gestation of [facility] care, subsequent , second trimester- Primary Short interval between pregnancies affecting in second trimester, antepartum Screen for STD (sexually transmitted disease) Screening examination for venereal disease Screening for genetic disease carrier status Encounter for screening for other genetic defects Acute intractable headache, unspecified headache type Constipation, unspecified constipation type [facility] Diagnosis Screen for [...] Moderate episode of recurrent major depressive disorder ([facility]) Gastroesophageal reflux disease without esophagitis Esophageal reflux Slow transit constipation Intractable chronic migraine without aura and with status migrainosus [facility]* Diagnosis Second trimester - Primary state, incidental Late care in second trimester documented in [facility]* Diagnosis Vaginal yeast infection- Primary Candidiasis of vulva and vagina documented in [facility]* Diagnosis Intractable chronic migraine without aura and with status migrainosus- Primary Slow transit constipation Acute cystitis without hematuria Cystic fibrosis carrier Moderate episode of recurrent major depressive disorder ([facility]) History of delivery Hx of thyroid disease Excessive growth affecting management of , antepartum, single or unspecified fetus Marijuana use during Maternal varicella, non-immune Supervision of other normal with adoption planned, antepartum Request for sterilization documented in [facility]* Diagnosis Second trimester - Primary state, incidental Intractable chronic migraine without aura and with status migrainosus with adoption planned, antepartum Maternal varicella, non-immune Supervision of other normal Marijuana use during Hx of thyroid disease History of delivery Moderate episode of recurrent major depressive disorder ([facility]) Cystic fibrosis carrier Intrauterine documented in this [facility]* Diagnosis care, third trimester- Primary Food insecurity documented in [facility]* Diagnosis with 36 completed weeks gestation- Primary documented in this [facility]* Diagnosis 38 weeks gestation of - Primary Short interval between pregnancies affecting , antepartum Late care Insufficient care Hx of delivery, currently with history of pre-term labor documented [facility]* Diagnosis Missed menses , unspecified gestational age Encounter for supervision of normal first in first trimester Screening, , for anatomic survey Encounter for anatomic survey Second trimester state, incidental 21 weeks gestation of Abnormal TSH BV (bacterial vaginosis) Unspecified vaginitis and vulvovaginitis documented in this encounter [facility] HealthcareEvaluation note* Diagnosis care, subsequent , [...] , antepartum- Primary [facility] Diagnosis Well woman exam with [...] gestation of ([facility]) H/O incompetent cervix, currently ([facility]) Noncompliant patient, third trimester ([facility]) [facility] Diagnosis 35 weeks gestation of ([facility]) Third trimester ([facility]) state, incidental documented in this encounter [facility] HealthcareInstructionsNot on filedocumented in [facility]ructionsNot on filedocumented in this [facility] SystemInstructionsNot on filedocumented in this [facility] InstructionsNot on filedocumented in this [facility] InstructionsNot on filedocumented in this [facility] InstructionsNot on filedocumented in this [facility] InstructionsNot on filedocumented in this [facility] InstructionsNot on filedocumented in this [facility] InstructionsNot on filedocumented in this [facility] InstructionsNot on filedocumented in this [facility] InstructionsNot on filedocumented in this [facility] Instructions* Attachments The following attachments cannot be sent through Care Everywhere. * Managing pain during labor and delivery (Armenian) * How to tell when labor starts (Armenian) [facility]ructionsNot on file documented in this [facility]ructionsNot on file documented in this [facility]Reason for referral (narrative)* Consultation (Routine) - Pending Review Specialty Diagnoses / Procedures Referred By Wilbur ibarra Referred To Contact Cardiology Diagnoses Late care affecting in second trimester Chest pain, unspecified type Heart palpitations Mallika Conn APRN-CNM [address] [address] Raghu Cummings MD [address] [place] [address] Referral ID Status Reason Start Date Expiration Date Visits Requested Visits Authorized [id number] Pending Review Specialty Services Required 08/29/2023 08/28/2024 1 1 * Consultation (Routine) - Pending Review Specialty Diagnoses / Procedures Referred By Contac t Referred To Contact Neurology Diagnoses Late care affecting in second trimester Chronic intractable headache, unspecified headache type Mallika Conn APRN-CNM [address] [place] [phone] Julianne Moyer MD [address] [place], [place] [phone] Referral ID Status Reason Start Date Expiration Date Visits Requested Visits Authorized [id number] Pending Review Specialty Services Required 08/29/2023 08/28/2024 1 1 * Cardiology (Routine) - Pending Review Specialty Diagnoses / Procedures Referred By Contac t Referred To Contact Diagnoses Late care affecting in second trimester Chest pain, unspecified type Heart palpitations Procedures ECG 12 lead Mallika Conn APRN-CNM [address] [facility], [address] [address] Referral ID Status Reason Start Date Expiration Date V isits Requested Visits Authorized [id number] Pending Review 08/29/2023 08/28/2024 1 1 [facility] for referral (narrative)* Consultation (Routine) - Pending Review Specialty Diagnoses / Procedures Referred By Contac t Referred To Contact Stereoplotter Operator Diagnoses Second trimester with adoption planned, antepartum Mallika Conn APRN-CNM [address] , [facility] [address] [place] [address] Referral ID Status Reason Start Date Expiration Date Visits Requested Visits Authorized [id number] Pending Review Specialty Services Required 10/10/2023 10/09/2024 1 1 [facility] Health Education (Routine) - Pending Review Specialty Diagnoses / Procedures Referred By Wilbur ibarra Referred To Contact Nutrition Diagnoses Food insecurity Sally Newman APRN-CNP [address] [place] [address] [facility] [address] [facility] [address] [place] [address] Referral ID Status Reason Start Date Expiration Date V isits Requested Visits Authorized [id number] Pending Review 11/19/2023 11/18/2024 12 12 [facility] Summary Purpose Family History No Family History [...] prior with short cervix, currently Procedures US MFM with or without consult Amaya Cruz, FUSION ANALYST-MECHANICAL MANAGER [address] [place] [address] [facility] Maternal [facility] [address] [place] [address] Referral ID Status Reason Start Date Expiration Date V isits Requested Visits Authorized [id number] Pending Review 08/23/2023 08/22/2024 1 1 Additional Source Comments REASON FOR VISIT (unrecogniz ed section and content) Reason Comments ER Follow-up Pt was at [facility] ER on 05/15/2024 for vaginal bleeding. [...] and content) DATE CREATED AUTHOR 09/13/2022 [facility] DATE CREATED AUTHOR AUTHOR'S ORGANIZ ATION 12/04/2022 [facility] DATE CREATED AUTHOR AUTHOR'S ORGANIZ ATION 09/05/2023 [facility] DATE CREATED AUTHOR AUTHOR'S ORGANIZ ATION 09/20/2023 [facility] DATE CREATED AUTHOR AUTHOR'S ORGANIZ ATION 12/09/2023 [facility] DATE CREATED AUTHOR AUTHOR'S ORGANIZ ATION 10/04/2024 [facility] DATE CREATED AUTHOR AUTHOR'S ORGANIZ ATION 10/04/2024 [facility] DATE CREATED AUTHOR AUTHOR'S ORGANIZ ATION 10/29/2024 [facility] EPIC Care Teams (unrecognized sec tion and content) Contract Graphic Designer Relationship Specialty Start Date End Date No Pcp, [place] [address] PCP - General Family Medicine 07/30/23 Contract Graphic Designer Relationship Specialty Start Date End Date No Pcp, [place] [address] PCP - General Family Medicine 07/30/23 Contract Graphic Designer Relationship Specialty Start Date End Date No Pcp, [place] [address] PCP - General Family Medicine 07/30/23 Contract Graphic Designer Relationship Specialty Start Date End Date No Pcp, [place] [address] PCP - General Family Medicine 07/30/23 Contract Graphic Designer Relationship Specialty Start Date End Date No Pcp, [place] [address] PCP - General Family Medicine 07/30/23 Contract Graphic Designer Relationship Specialty Start Date End Date No Pcp, [place] [address] PCP - General Family Medicine 06/23/22 Contract Graphic Designer Relationship Specialty Start Date End Date No Pcp, [place] [address] PCP - General Family Medicine 07/30/23 Contract Graphic Designer Relationship Specialty Start Date End Date No Pcp, [place] [address] PCP - General Family Medicine 07/30/23 Contract Graphic Designer Relationship Specialty Start Date End Date No Pcp, [place] [address] PCP - General Family Medicine 07/30/23 Contract Graphic Designer Relationship Specialty Start Date End Date No Pcp, [place] [address] PCP - General Family Medicine 07/30/23 Contract Graphic Designer Relationship Specialty Start Date End Date No Pcp, [place] [address] PCP - General Family Medicine 07/30/23 Contract Graphic Designer Relationship Specialty Start Date End Date No Pcp, [place] [address] PCP - General Family Medicine 07/30/23 Contract Graphic Designer Relationship Specialty Start Date End Date No Pcp, [place] [address] PCP - General Family Medicine 07/30/23 Contract Graphic Designer Relationship Specialty Start Date End Date No Pcp, [place] [address] PCP - General Family Medicine 07/30/23 Contract Graphic Designer Relationship Specialty Start Date End Date No Pcp, [place] [address] PCP - General Family Medicine 07/30/23 Contract Graphic Designer Relationship Specialty Start Date End Date Osmany Bella DO [address] [place], [place] [address]cally [place] [address] PCP - General Obstetrics & Gynecology 07/12/24 [...] BE BASED ON THE PRIMARY CLINICAL RECORDS. [facility] [employer] [facility]. provides no warranty or guarantee of the accuracy or completeness of information in this document.
--- OUTSIDE RECORDS SUMMARY | 2024-11-03 05:31 | XMS_ITS | Encounter Summary ---
Author Organization [facility] Address [address] [place] [address] Care Team Providers Care Hose Turner Name Role Phone Unavailable Primary Care Provider Unavailabl e Encounter Details Date Type Department Care Team (Late st Contact Info) Description 11/22/2023 Clinisync Result Encounter [facility] External Department Unsolicited Zhane Bella DO [address] [facility] [address] [place] [address] Social History Tobacco Use Types Packs/Day Years [...] EDT Office Visit [facility] BCP OB [address] [facility] [place] [address] Mya Kaplan PA [address] [place] [address] documented as of this encounter Procedures Procedure Name Priority Date/Time Associated Diagnosis Comments US RENAL BI 11/22/2023 3:40 PM EDT documented in this encounter Results * US RENAL BI (11/22/2023 3:40 PM EDT) Anatomical Region Laterality Modality Other 11/22/2023 3:40 PM EDT Narrative 11/22/2023 3:42 [place] [address] Ultrasound Report Signed Patient: GEORGIE POND MR#: [id number] : 2000 Acct:[id number] Age/Sex: 23 / F ADM Date: Loc: [facility] 251-[address]: Zhane Bella D.O. Ordering Physician: Zhane Bella D.O. Date of Service: 11/22/23 Procedure(s): US renal BI Accession Number(s): [id number] cc: Zhane Bella D.O.; Physician,Non-Staff [address] [place] [address] Patient Name: GEORGIE POND MRN: [id number] date: 2000 Sex: F Assigned Patient Location: [facility] Current Patient Location: [facility] Accession/Order Number: [id number] Exam Date: 11/22/2023 14:20 Report Date: 11/22/2023 [...] Signed By: 11/22/23 1542 DD/ 1540 TD/TT: Auto Haulaway Driver: Procedure Note Radiology, Radiologist, MD - 11/22/2023 [place] [address] Ultrasound Report Signed Patient: GEORGIE POND TMR#: [id number] : 2000Acct:[id number] Age/Sex: 23 / FADM Date: Loc: [facility] 251-[address]: Zhane Bella D.O. Ordering Physician: Zhane Bella D.O. Date of Service: 11/22/23 Procedure(s): US renal BI Accession Number(s): [id number] cc: Zhane Bella D.O.; Physician,Non-Staff [address] [place] [id number] Patient Name: GEORGIE POND MRN: [id number] date: 2000 Sex: F Assigned Patient Location: [facility] Current Patient Location: [facility] Accession/Order Number: [id number] Exam Date: 11/22/2023 14:20 Report Date: 11/22/2023 15:40 At the request of: ZHANE EBLLA Procedure: US renal BI EXAMINATION: US renal [...] M.D. Signed By:11/22/23 1542 DD/ 1540 TD/TT: Auto Haulaway Driver: us Zhane Monahano DO [facility] Final Result documented in this encounter Visit Diagnoses Not on filedocumented in this encounter
--- OUTSIDE RECORDS SUMMARY | 2024-11-03 05:31 | XMS_ITS | Encounter Summary ---
Author Organization [facility] Address [address] [place] [address] Care Team Providers Care Knife Cutter Name Role Phone Unavailable Primary Care Provider Unavailabl e Reason for Visit * Reason Comments Med Refill Encounter Details Date Type Department Care Team (Late Contact Info) Description 12/15/2023 Refill [facility] OB [address] [place] [phone] Osmany Bella [address] [place], [facility] Nausea Social History Tobacco Use [...] Care Team ([facility] Contact Info) Description 11/10/2024 2:20 PM EDT Office Visit [facility] BCP OB [address] [place] [address] Mya Kaplan PA [address] [facility] [place] [address] documented as of this encounter Visit Diagnoses Diagnosis Nausea Nausea alone documented in this encounter
--- OUTSIDE RECORDS SUMMARY | 2024-11-03 05:31 | XMS_ITS | Encounter Summary ---
Author Organization [facility] Address [address] [facility] [place] [address] Care Team Providers Care Field Support Engineer Name Role Phone Unavailable Primary Care Provider Unavailabl e Encounter Details Date Type Department Care Team (Late Contact Info) Description 08/05/2023 Abstract [facility] OB [address] [facility] [place] [phone] Kimi Olsen LPN [address] GON[facility]11 Social History Tobacco Use Types Packs/Day Years [...] 11/10/2024 2:20 PM EDT Office Visit [facility] OB [address] [facility] [place] [address] Mya Kaplan PA [address] [place], [place] [phone] documented as of this encounter Visit Diagnoses Not on filedocumented in this encounter
--- OUTSIDE RECORDS SUMMARY | 2024-11-03 05:31 | XMS_ITS | Encounter Summary ---
Author Organization [facility] tem Address [id number] [address] [place] [address] Care Team Providers Care Project Controller Name Role Phone No Pcp, No Pcp Primary Care Provider Unavailabl e Encounter Details Date Type Department Care Team (Late st Contact Info) Description 01/09/2023 Orders Only M[facility]- Medicine at [facility] [address] [place] [phone] Ref Prov, [place] [address] Social History Tobacco Use Types Packs/Day Years [...] Answer Date Recorded Total Score 15 08/03/2021 [facility] of Occupat ional [...] Recorded Do you need help finding a [facility] career [facility] and/or a training program? [...] as of this encounter Care Teams Project Controller Relationship Specialty Start Date End Date No Pcp, No Pcp RYLIE Paige [address] PCP - General Family Medicine 09/01/24 documented as of this encounter
--- OUTSIDE RECORDS SUMMARY | 2024-11-03 05:31 | XMS_ITS | Encounter Summary ---
Author Organization [facility] tem Address [id number] [address] [place] [address] Care Team Providers Care Assistant To The Director Name Role Phone No Pcp, No Pcp Primary Care Provider Unavailabl e Encounter Details Date Type Department Care Team (Late st Contact Info) Description 05/10/2023 Orders Only [facility] - Labor [address] [facility] [place] [phone] Marilu Mcneal, ELEVATOR CONSTRUCTOR-CN [address] [place] [address] Chronic migraine without aura without status migrainosus, [...] Never 03/26/2021 How often do you attend [facility] or sabianist services? Never 03/26/2021 Do you belong to [...] Answer Date Recorded Total Score 15 08/03/2021 [facility] of Occupat ional Health - [...] things needed for daily living? No 03/26/2021 [place] Depression Scale Answer Date Recorded [place] Depression Scale Total 7 04/05/2023 The thought [...] Do you need help finding a [facility] career center and/or a training [...] documented as of this encounter Care Teams Assistant To The Director Relationship Specialty Start Date End Date No Pcp, [place] [address] PCP - General Family Medicine 09/01/24 documented as of this encounter
--- OUTSIDE RECORDS SUMMARY | 2024-11-03 05:31 | XMS_ITS | Encounter Summary ---
Author Organization [facility] Address [address] [place] [address] Care Team Providers Care Eap Counselor Name Role Phone Unavailable Primary Care Provider Unavailabl e Encounter Details Date Type Department Care Team ([facility] Contact Info) Description 12/13/2023 Abstract [facility] OB [address] [place] [address] Isadora Martin, CNM [address] [place], [place] [phone] Social History Tobacco Use Types Packs/Day Years Used Date Smoking Tobacco: Never Assessed Comments Yes Sex and Gender Information Value Date Recorded Sex Assigned at Not on file Legal Sex Female 11:47 PM EDT Gender Identity Not on file Sexual Orientation Not on file documented as of this encounter Plan of Treatment Upcoming Encounters Date Type Department Care Team ([facility] Contact Info) Description 11/10/2024 2:20 PM EDT Office Visit [facility] BCP OB [address] [facility] [place] [address] Mya Kaplan PA [address] [facility] [place] [address] documented as of this encounter Visit Diagnoses Not on filedocumented in this encounter
--- OUTSIDE RECORDS SUMMARY | 2024-11-03 05:31 | XMS_ITS | Encounter Summary ---
Author Organization [facility] Address [address] [facility] [place] [address] Care Team Providers Care Tiler'S Assistant Name Role Phone Unavailable Primary Care Provider Unavailabl e Encounter Details Date Type Department Care Team (Late Contact Info) Description 12/11/2023 Abstract [facility] OB [address] [facility] [place] [phone] Osmany Bella DO [address] [facility] [address] [place], [facility]11 Social History Tobacco Use Types Packs/Day [...] Visit [facility] OB [address] [facility] [place] [phone] Mya Kaplan PA [address] [facility] [address] [place], [place] [phone] documented as of this encounter Visit Diagnoses Not on filedocumented in this encounter
--- OUTSIDE RECORDS SUMMARY | 2024-11-03 05:31 | XMS_ITS | Encounter Summary ---
Author Organization [facility] Address [address] [place] [address] Care Team Providers Care Checking Clerk Name Role Phone Unavailable Primary Care Provider Unavailabl e Encounter Details Date Type Department Care Team (Late Contact Info) Description 10/23/2024 Clinisync Result Encounter [facility] External Department Unsolicited Mya Jacob PA [address] [place] [address] Social History Tobacco Use Types Packs/Day Years [...] Upcoming Encounters Date Type Department Care Team ([facility] Contact Info) Description 11/10/2024 2:20 PM EDT Office Visit [facility] OB [address] [place] [address] Mya Jacob PA [address] [place] [address] documented as of this encounter Procedures Procedure Name Priority Date/Time Associated Diagnosis Comments US OB GROWTH 10/23/2024 3:29 PM EDT documented in this encounter Results * US OB GROWTH (10/23/2024 3:29 PM EDT) Anatomical Region Laterality Modality Other 10/23/2024 3:29 PM EDT Narrative 10/23/2024 3:31 PM EDT The [address] [address] Ultrasound Report Signed Patient: GEORGIE POND MR#: [id number] : 2000 Acct:[id number] Age/Sex: 24 / F ADM Date: 10/23/24 Loc: US Attending Dr: Mya Jacob Ordering Physician: Mya Jacob Date of Service: 10/23/24 Procedure(s): US OB growth Accession Number(s): [id number] cc: Mya Jacob; Physician,Non-Staff M.Lee The [address] [address] Patient Name: GEORGIE POND MRN: [id number] date: 2000 Sex: F Assigned Patient Location: [facility] Current Patient Location: Accession/Order Number: [id number] Exam Date: 10/23/2024 15:27 Report Date: 10/23/2024 [...] Jr., D.O. 10/23/2024 3:29 PM Dictation Location: [place] [address] Electronically authenticated by: [id number] Y Date: 10/23/2024 15:29 Dictated By: Rufus Garcia M.D. Signed By: 10/23/24 1531 DD/ 1529 TD/TT: B2B Account Executive: Procedure Note Radiology, Radiologist, - 10/23/[address] [place] [address] Ultrasound Report Signed Patient: GEORGIE POND TMR#: [id number] : 2000Acct:[id number] Age/Sex: 24 / FADM Date: 10/23/24 Loc: US Attending Dr: Mya Jacob Ordering Physician: Mya Jacob Date of Service: 10/23/24 Procedure(s): US OB growth Accession Number(s): [id number] cc: Mya Jacob; Physician,Non-Staff M.DCynthia [place] [address] Patient Name: GEORGIE POND MRN: [facility]:[id number] date: 2000 Sex: F Assigned Patient Location: [facility] Current Patient Location: Accession/Order Number: [id number] Exam Date: 10/23/2024 15:27 Report Date: 10/23/2024 [...] Jr., D.O. 10/23/2024 3:29 PM Dictation Location: [place] [address] Electronically authenticated by: [id number] Y Date: 5:29 Dictated By: Rufus Garcia M.D. Signed By:10/23/24 1531 DD/ 1529 TD/TT: B2B Account Executive: us Mya [facility] Final Result documented in this encounter Visit Diagnoses Not on filedocumented in this encounter
--- OUTSIDE RECORDS SUMMARY | 2024-11-03 05:31 | XMS_ITS | Encounter Summary ---
Author Organization [facility] Address [address] [facility] [place] [address] Care Team Providers Care Mold Tooler Name Role Phone Unavailable Primary Care Provider Unavailabl e Encounter Details Date Type Department Care Team (Late Contact Info) Description 12/12/2023 Abstract [facility] OB [address] [place] [phone] Osmany Bella DO [address] [facility] [address] Siddhartha Barrera, [facility] Social History Tobacco Use Types Packs/Day [...] 11/10/2024 2:20 PM EDT Office Visit [facility] OB [address] [place] [phone] Mya Kaplan PA [address] [facility] [address] [place], [place] [phone] documented as of this encounter Visit Diagnoses Not on filedocumented in this encounter
--- OUTSIDE RECORDS SUMMARY | 2024-11-03 05:31 | XMS_ITS | Encounter Summary ---
Author Organization [facility] [facility] [employer] Address [id number] [address] [place] [address] Care Team Providers Care Newspaper Peddler Name Role Phone No Pcp, No Pcp Primary Care Provider Unavailabl e Encounter Details Date Type Department Care Team (Late st Contact Info) Description 09/25/2024 Orders Only [facility] Obstetrics/Gynecology [address] [place] [phone] [facility] [address] [place] [phone] Bacterial vaginosis in (Primary Dx) Social History [...] often do you attend chur ch or mandaen services? Never 03/26/2021 Do you belong to [...] Date Recorded Total Score 4 08/29/2023 [facility] - Occupational [...] things needed for daily living? No 09/22/2024 [place] Depression Scale Answer Date Recorded [place] Depression Scale Total 13 09/12/2023 The thought [...] documented as of this encounter Care Teams Newspaper Peddler Relationship Specialty Start Date End Date No Pcp, [place] [address] PCP - General Family Medicine 09/01/24 documented as of this encounter
--- OUTSIDE RECORDS SUMMARY | 2024-11-03 05:31 | XMS_ITS | Clinical Summary ---
Author Organization [employer] Address [id number] [address] [place] [address] Care Team Providers Care Digital Media Manager Name Role Phone No Pcp, No Pcp Primary Care Provider Unavailabl e Allergies No known active allergies Medications * This document contains information received from the source organization and may not represent a complete record from that organization. [id number] c acid () 29 mg iron- 1 mg tablet,chewable Chew 1 tablet and swallow in the morning for 14 days. 14 tablet 09/24/2024 10/09/19 25 Active Problems Problem Noted Date Diagnosed Date Depression 09/22/2024 Suicidal intent 09/20/2024 Previous delivery affecting , antepartum 08/03/2024 Urinary tract infection in m other during , antepartum 08/03/2024 Headache 11/27/2023 Late care 11/19/2023 Short interval between pregn ancies affecting , antepartum 11/19/2023 Cystic fibrosis carrier 09/12/2023 Overview (11/19/2023): FOB declines testing Maternal varicella, non-immune 09/02/2023 Intrauterine 09/02/2023 Overview (09/02/2023): 4/29/24 2 hour glucose WNL, GC/CT and Trich negative, + yeast infection Hx of thyroid disease 08/30/2023 Overview (08/30/2023): 08/06/23 patient reports ABN thyroid with prior - normal thyroid labs, consider recheck in 4-6 weeks. Marijuana use during 08/29/2023 Overview (08/29/2023): [id number] THC positive and patient educated on cessation. Hx of delivery, currently 08/27 Overview (08/29/2023): Twins delivered 02-03-2023 at 25w2d 07/28/23 cervical length 4 cm Acute cystitis 08/28/2023 Overview (08/28/2023): 08-22-23 treated in [facility] with Macrobid Intractable chronic migraine without aura 2023 Overview (08/28/2023): 05/10/2023 Neuro consult placed Magnesium Citrate ordered 400mg daily Episode of recurrent major depressive disorder 0 07/06/2021 Overview (08/28/2023): Has appointment at [facility] on 09-18-23 Slow transit constipation 03/12/2019 [...] [address] [place] [address] Madeline Gamboa APRN-SHANIA Bacterial vaginosis in (Primary Dx) 09/22/2024 Travel 09/21/2024 10:18 AM EDT - 09/21/2024 11:59 PM EDT Hospital Encounter [facility] Imaging [address] [place] [address] Discharge Disposition: Home 09/18/2024 10:04 PM EDT - 09/22/2024 3:00 AM EDT Hospital Encounter [facility] - GEN 3 Antepartum [address] [place] [phone] Bala Randle MD Discharge Disposition: [facility] 09/18/2024 4:18 PM EDT - 09/18/2024 10:03 PM EDT Emergency [facility] - Emergency [address] [place] [phone] Saroj Carreon DO Suicide attempt ([facility]) (Primary Dx) Discharge Disposition: [facility] 09/18/2024 Travel 09/01/2024 Travel from Last 3 Months Immunizations Immunization [...] = 0.6 oz pur e alcohol) occasionally [facility] Utilities Answer Date Recorded In the past [...] Never 03/26/2021 How often do you attend [facility] or rastafari services? Never 03/26/2021 Do [...] Answer Date Recorded Total Score 4 08/29/2023 [facility] [place] [facility] Occupat ional Health - Occupational Stress [...] things needed for daily living? No 09/22/2024 [place] Depression Scale Answer Date Recorded [place] Depression Scale Total 13 09/12/2023 The thought [...] Recorded Do you need help finding a [facility] career [facility] and/or a training [...] URINE CULTURE Routine 09/23/2024 4:56 PM EDT [facility] COMPREHENSIVE ANATOMIC SURVEY Routine 09/21/2024 [...] EDT Encounter for screening for diabetes mellitus from Last 3 Months Results * (ABNORMAL) Urinalysis (09/23/2024 11:40 PM EDT) Only the most recent of2 resultswithin the time period is included. COLOR Yellow Yellow, Colorless 09/24/2024 1:13 AM [facility] TURBIDITY Clear Clear 09/24/2024 1:13 AM [facility] SPECIFIC GRAVITY 1.025 1.003 - 1.035 09/24/2024 1:13 AM [facility] NITRITE Negative Negative 09/24/2024 1:13 AM [facility] PH,URINE 6.0 5.0 - 8.5 09/24/2024 1:13 AM [facility] LEUKOCYTE ESTERASE Negative Negative 09/24/2024 1:13 AM [facility] PROTEIN Trace(A) Negative 09/24/2024 1:13 AM [facility] KETONES (URINE) Trace(A) Negative 1:13 AM [facility] UROBILINOGEN 4.0 eu/dL(A) 0.2 eu/dL, 1.0 eu/dL 09/24/2024 1:13 AM [facility] BILIRUBIN (URINE) Negative Negative 09/24/2024 1:13 AM [facility] BLOOD/HGB Negative Negative 09/24/2024 1:13 AM [facility] MUCOUS Present(A) None 09/24/2024 1:13 AM [facility] R.B.CELLS 0 0 - 5 09/24/2024 1:13 AM [facility] SQUAMOUS EPITHELIUM 3 0 - 5 09/24/2024 1:13 AM [facility] W.B.CELLS 2 0 - 5 09/24/2024 1:13 AM [facility] GLUCOSE (URINE) Negative Negative, 250 mg/dL, >1000 mg/dL 09/24/2024 1:13 AM [facility] Urine Urine specimen collection, clean catch / Unknown 09/23/2024 11:40 PM EDT 09/23/2024 11:51 PM EDT [facility] FOOD COOKING MACHINE OPERATOR-CN URINE ORDERABLES Final Resu lt [facility] [address] [place] [address], * Chlamydia/GC by PCR Nighat Swab (09/23/2024 [...] 11:17 PM EDT 09/23/2024 11:27 PM EDT [facility] FOOD COOKING MACHINE OPERATOR-CN MICROBIOLOGY - GENERAL ORDE RABLES Final Result [facility] [address] [place] [address], * (ABNORMAL) Vaginitis Panel PCR (09/23/2024 11:17 [...] PM EDT 09/23/2024 11:26 PM EDT Madeline DANIELS MICROBIOLOGY - GENERAL ORDE RABLOU Final Result [facility] [address] [place] [address], * Urine Culture Urine, Clean Catch Midstream (09/23/2024 4:56 PM EDT) CULTURE RESULTS 10-50,000 ORGANISMS/mL NORMAL UROGENITAL ALEX [...] MICROBIOLOGY - GENERAL ORDERABL ES Final Result [facility] [address] [place] [address], * [facility] COMPREHENSIVE ANATOMIC SURVEY (09/21/2024 11:04 AM EDT) Anatomical Region Laterality Modality OB-HYDROELECTRIC MACHINERY MECHANIC Ultrasound 09/21/2024 10:3 2 AM EDT Narrative 09/21/2024 11:43 AM EDT NAME: SALTY SANCHEZ : 2000 SEX: F Accession Number: [id number] ORDERING PHYSICIAN: SONJA COLEMAN REFERRING PHYSICIAN: ZHANE BELLA Coding ----- --------- Procedures [id number]: Ultrasound, uterus, real time with image documentation, and maternal evaluation plus detailed anatomic examination, transabdominal approach;single or first gestation STAT ----- --------- Patient Location: Inpatient Indication ----- --------- Screening for Anatomic Survey, Previous , Obesity in , Supervision of high risk . History ----- --------- OB History 5. Para 2 [id number] Maternal Assessment ----- --------- Physical Exam Height [...] EFW (oz) 9 oz EFW by: Hadlock ([id number]) Extended Tibia 51.5 mm 30w 5d 47% Rand Shoe Trimmer 4.5 mm CM 4.8 mm 3% Nicolaides [...] Heart / Thorax RVOT view. LVOT view. 4-zrrnpe-eunoxzf view. Aortic arch view. Ductal arch view. [...] primary OB provider unless otherwise specified by [facility]. Results forwarded to ordering provider so they can follow up with the patient as necessary. Procedure Note Brady Charles MD - 09/21/2024 NAME: SALTY SANCHEZ : 2000 SEX: F Accession Number: [id number] ORDERING PHYSICIAN: SONJA COLEMAN REFERRING PHYSICIAN: ZHANE BELLA Coding ----- --------- Procedures [id number]: Ultrasound, uterus, real time with imagedocumentation, and maternal evaluation plus detailed anatomic examination, transabdominalapproach;single or first gestation STAT ----- --------- Patient Location: Inpatient Indication ----- --------- Screening for Anatomic Survey, Previous , Obesity in ,Supervision of high risk . History ----- --------- OB History 5. Para 2 [id number] Maternal Assessment ----- --------- Physical Exam Height [...] EFW (oz) 9 oz EFW by: Hadlock ([id number]) Extended Tibia 51.5 mm 30w 5d 47% Rand Shoe Trimmer 4.5 mm CM 4.8 mm 3% Nicolaides [...] Heart / Thorax RVOT view. LVOT view. 3-ygvhvk-lprkykw view. Aortic archview. Ductal arch view. Great [...] byprimary OB provider unless otherwise specified by [facility]. Results forwarded to ordering provider so they can follow up with thepatient as necessary. us Sonja Coleman DO [facility] US ORDERABLES Final Res ult [...] ORDERABLES Final Resul t Performing Organization Address City/[facility]/ZIP Co de Phone Number [facility] [address] [place] [address], * Ammonia (09/19/2024 9:04 PM EDT) Only the most recent of3 resultswithin the time period is included. AMMONIA 32 18 - 72 umol/L 09/19/2024 10:34 PM EDT [facility] Blood Venous blood / Unknown 09/19/2024 9:04 PM EDT 09/19/2024 9:04 PM EDT us Marie Lopez MD LAB BLOOD ORDERABLES Final Resul t Performing Organization Address [facility]/ZIP Co de Phone Number [facility] [address] [place] [address], * Syphilis Total (Unknown Syphilis Status) (09/19/2024 [...] CENTER [facility] [address] [place] [address], [place] [phone] * (ABNORMAL) CBC auto differential (09/19/2024 2:49 [...] [facility]ENTER [facility] [address] [place] [address], * (ABNORMAL) Comprehensive metabolic panel (09/19/2024 2:49 [...] [facility] Comment:METHOD TRACEABLE TO [facility] STANDARD GLUCOSE 96 65 - 99 mg/dL [...] [facility] [address] [place] [address], [place] [phone] * (ABNORMAL) POCT Nursing Urine Macroscopic UA (09/18/2024 7:24 PM EDT) Only the most recent of2 resultswithin the time period is included. POC Urine Specific Hersey 1.015 1.010, 1.015, 1.020, 1.025 09/18/2024 7:20 PM EDT [facility] POC Urine Leukocyte Esterase Moderate(A) Negative 09/18/2024 7:20 PM EDT [facility] POC Urine Nitrite Negative Negative 09/18/2024 7:20 PM EDT [facility] POC Urine pH 7.0 5.0, 6.0, 6.5, 7.0, 7.5, 8.0, 8.5, 5.5 09/18/2024 7:20 PM EDT [facility] POC Urine Protein Negative Negative 09/18/2024 7:20 PM EDT [facility] POC Urine Glucose Negative Negative 09/18/2024 7:20 PM EDT [facility] Urine Ketones 80 mg/dL(A) Negative 09/18/2024 7:20 PM EDT [facility] POC Urine Urobilinogen 0.2 E.U./dL 09/18/2024 7:20 PM EDT [facility] Urine Bilirubin Negative Negative 09/18/2024 7:20 PM EDT [facility]OC Urine Blood/HGB Negative Negative 09/18/2024 7:20 PM EDT [facility] Urine 09/18/2024 7:24 PM EDT 09/18/2024 7:20 PM EDT us Saroj Carreon DO POINT OF CARE TEST ORDER DONELL Final Result [facility] [address] [place] [address], [place] * Drug Screen, Urine (09/18/2024 6:52 PM EDT) AMPHETAMINE/METHAMP Negative Negative 09/18 7:21 PM EDT [facility] Comment:AMPH/METH screening cut off = 1000 ng/mL COCAINE METABOLITE Negative Negative 2024 7:21 PM EDT [facility] Comment:Cocaine screening cu t off value = 300 ng/mL ECSTASY Negative Negative 09/18/2024 7:21 PM EDT [facility] Comment:Ecstasy screening cu t off value = 500 ng/mL METHADONE Negative Negative 09/18/2024 7:21 PM EDT [facility] Comment:Methadone screening cut off value = 300 ng/mL. OPIATES Negative Negative 09/18/2024 7:21 PM EDT [facility] Comment: Opiates screening cut off value = 300 ng/mL This test is used for the detection of codeine, hydrocodone (>1000 ng/mL), morphine and hydromorphone (>900 ng/mL) in urine. OXYCODONE Negative Negative 09/18/2024 7:21 PM EDT [facility] Comment: Oxycodone screening cut off value = 300 ng/mL This test is used for the detection of oxycodone and oxymorphone in urine. PHENCYCLIDINE Negative Negative 09/18/2024 7:21 PM EDT [facility] Comment:Phencyclidine screen ing cut off value = 25 ng/mL CANNABINOIDS Negative Negative 09/18/2024 7:21 PM EDT [facility] Comment:Cannabinoids/THC scr eening cut off value = 50 ng/mL Urine Barbiturates Negative Negative 2024 7:21 PM EDT [facility] Comment:Barbiturates screeni ng cut off value = 200 ng/mL BENZODIAZEPINES Negative Negative 7:21 PM EDT [facility] Comment:Benzodiazepines scre ening cut off value = 200 ng/mL Urine Urine specimen collection, clean catch / Unknown Collection / Unknown 09/18/2024 6:52 PM EDT 09/18/2024 7:00 PM EDT us [employer] DO URINE ORDERABLES Final R esult [address] [place] [address], [place] * Light Blue Top (09/18/2024 4:55 PM EDT) Extra Tube Auto Resulted 09/18/2024 6:01 PM EDT [facility] Blood Venous blood / Unknown 09/18/2024 4:55 PM EDT 09/18/2024 5:00 PM EDT us [employer] LAB BLOOD ORDERABLES Fin al Result Performing Organization Address City/[facility] Co de Phone Number [address] [place] [address], [place] * (ABNORMAL) Iron and TIBC (09/18/2024 [...] PM EDT 09/18/2024 5:00 PM EDT us [employer] LAB BLOOD ORDERABLES Fin al Result Performing Organization Address City/[facility]/ZIP Co de Phone Number [facility] [address] [place] [address], [place] [phone] * Ethanol (09/18/2024 4:55 PM EDT) ETHANOL <0.010 <=0.080 g/dL 09/18/2024 5:21 PM EDT [facility] Comment: This report is intended for use in clinical monitoring or management of patients. Blood 09/18/2024 4:55 PM EDT 09/18/2024 5:00 PM EDT us [employer] DO LAB BLOOD ORDERABLES Fin al Result Performing Organization Address [facility] Co de Phone Number [address] [place] [address], [place] * (ABNORMAL) Acetaminophen level (09/18/2024 4:55 PM EDT) ACETAMINOPHEN 6.6(L) 10.0 - 30.0 ug/mL 09/18/2024 5:21 PM EDT [facility] Blood 09/18/2024 4:55 PM EDT 09/18/2024 5:00 PM EDT Narrative [facility] - 09/18/2024 5:21 PM EDT Reference ranges are for therapeutic limits. us [employer] DO LAB BLOOD ORDERABLES Fin al Result Performing Organization Address City/[facility] Co de Phone Number [address] [place] [address], [place] * Salicylate level (09/18/2024 4:55 PM EDT) SALICYLATE <4.0 2.0 - 25.0 mg/dL 09/18/2024 5:21 PM EDT [facility] Blood 09/18/2024 4:55 PM EDT 09/18/2024 5:00 PM EDT Narrative [facility] - 09/18/2024 5:21 PM EDT Reference ranges are for therapeutic limits. Saroj Carreon DO LAB BLOOD ORDERABLES Fin al Result Performing Organization Address City/[facility]/ZIP Co de Phone Number [facility] [address] [place] [address], [place] * ECG 12 lead (09/18/2024 4:43 PM EDT) 09/18/2024 4:43 PM EDT Narrative [facility] - 09/18/2024 9:43 PM EDT Saroj Carreon DO ECG ORDERABLES Final Re sult Performing Organization Address [facility] Co de Phone Number [facility] * Critical Care (09/18/2024 4:27 PM EDT) [...] post 50g load (09/01/2024 3:45 PM EDT) [facility] GLUCOSE, 1HR POST 50GM LOAD 126 65 - 139 mg/dL 09/01/2024 10:25 PM EDT [facility] Blood Venous blood / Unknown Venipuncture / Unknown 09/01/2024 3:45 PM EDT 09/01/2024 4:30 PM EDT us Zhane Bella DO LAB BLOOD ORDERABLES Final Resu lt [facility] [address] [place] [address], [place] [phone] from Last 3 Months Insurance [facility] MEDICAID [facility] MEDICAID Advance Directives * Full Code (Latest [...] 7:11 AM 12/23/2022 7:06 PM Care Teams Digital Media Manager Relationship Specialty Start Date End Date [place]cp, [place] [address] PCP - General Family Medicine 09/01/24
--- OUTSIDE RECORDS SUMMARY | 2024-11-03 05:31 | XMS_ITS | Encounter Summary ---
Author Organization [facility] Address [address] [place] [address] Care Team Providers Care Cytopathology Technologist Name Role Phone Unavailable Primary Care Provider Unavailabl e Encounter Details Date Type Department Care Team (Late Contact Info) Description 08/28/2024 Results Follow-Up [facility] [address] [place] [address] Marie Cuellar LPN [address] [place] [address] Social History Tobacco Use Types [...] Upcoming Encounters Date Type Department Care Team ([facility] Contact Info) Description 11/10/2024 2:20 PM EDT Office Visit [facility] [address] [place] [address] Mya Kaplan PA [address] [place] [address] documented as of this encounter Visit Diagnoses Not on filedocumented in this encounter
--- OUTSIDE RECORDS SUMMARY | 2024-11-03 05:31 | XMS_ITS | Encounter Summary ---
Author Organization [facility] Address [address] [place] [address] Care Team Providers Care Street Supervisor Name Role Phone Unavailable Primary Care Provider Unavailabl e Encounter Details Date Type Department Care Team (Late st Contact Info) Description 10/26/2024 Clinisync Result Encounter NOMS External Department Unsolicited Zhane Bella DO [address] [facility] [place] [address] Social History Tobacco Use Types Packs/Day Years [...] EDT Office Visit [facility] BCP OB [address] [facility] [place] [address] Mya Kaplan PA [address] [place] [address] documented as of this encounter Procedures Procedure Name Priority Date/Time Associated Diagnosis Comments US OB BPP W NON-STRESS 10/26/2024 8:15 AM EDT documented in this encounter Results * US OB BPP W NON-STRESS (10/26/2024 8:15 AM EDT) Anatomical Region Laterality Modality Other 10/26/2024 8:15 AM EDT Narrative 10/26/2024 8:17 [place] [address] Ultrasound Report Signed Patient: GEORGIE POND MR#: [id number] : 2000 Acct:[id number] Age/Sex: 24 / F ADM Date: Loc: [facility] 251-[address]: Zhane Bella D.O. Ordering Physician: Zhane Bella D.O. Date of Service: 10/24/24 Procedure(s): US OB BPP w non-stress Accession Number(s): [id number] cc: Zhane Bella D.O.; Physician,Non-Staff [place] [id number] Patient Name: GEORGIE POND MRN: [facility]:[id number] date: 2000 Sex: F Assigned Patient Location: [facility] Current Patient Location: Accession/Order Number: [id number] Exam Date: 10/26/2024 07:43 Report Date: 10/26/2024 [...] Souza M.D. 10/26/2024 8:15 AM Dictation Location: [place] [address] Electronically authenticated by: [id number] Y Date: 10/26/2024 08:15 Dictated By: Helena De Souza M.D. Signed By: 10/26/24816 DD/ 4 TD/TT: Hand Bootmaker: Procedure Note Radiology, Radiologist, MD - 10/26/2024 [place] [address] Ultrasound Report Signed Patient: GEORGIE POND TMR#: [id number] : 2000Acct:[id number] Age/Sex: Date: Loc: [facility] 251-[address]: Zhane Bella D.O. Ordering Physician: Zhane Bella D.O. Date of Service: 10/24/24 Procedure(s): US OB BPP w non-stress Accession Number(s): [id number] cc: Zhane Bella D.O.; Physician,Non-Staff Adriana [place] [address] Patient Name: GEORGIE POND MRN: [id number] date: 2000 Sex: F Assigned Patient Location: [facility] Current Patient Location: Accession/Order Number: [id number] Exam Date: 10/26/2024 07:43 Report Date: 10/26/2024 [...] Souza M.D. 10/26/2024 8:15 AM Dictation Location: [place] [address] Electronically authenticated by: [id number] Y Date: 508:15 Dictated By: Helena De Souza M.D. Signed By:10/26/2417 DD/ 4 TD/TT: Hand Bootmaker: us Zhane Jena DO [facility] Final Result documented in this encounter Visit Diagnoses Not on filedocumented in this encounter
--- OUTSIDE RECORDS SUMMARY | 2024-11-03 05:31 | XMS_ITS | Clinical Summary ---
Author Organization [facility] Address [address] [place] [address] Care Team Providers Care Farm Management Supervisor Name Role Phone Unavailable Primary Care [...] to complete this topic Insurance MEDICAID [place] [facility]
--- OUTSIDE RECORDS SUMMARY | 2024-11-03 05:31 | XMS_ITS | Encounter Summary ---
Author Organization [facility] Address [address] [place] [address] Care Team Providers Care Ground Mixer Name Role Phone Unavailable Primary Care Provider Unavailabl e Encounter Details Date Type Department Care Team (Late st Contact Info) Description 10/24/2024 Clinisync Result Encounter NOMS External Department Unsolicited Osmany Bella DO [address] [facility] [place] [address] Social History Tobacco Use Types Packs/Day Years [...] Visit [facility] BCP OB [address] [facility] [place] [phone] Mya Kaplan PA [address] [place] [address] documented as of this encounter Procedures Procedure Name Priority Date/Time Associated Diagnosis Comments [facility] CMP (CMP) (FOR REMOTE [facility] USE) Routine 10/24/2024 2:03 AM EDT ALL CBC WITH AUTO DIFF Routine 10/24/2024 2:03 AM EDT [facility] URINE MICROSCOPIC ONLY Routine 10/24/2024 12:30 AM EDT [facility] UA (CLEAN/CATCH) SPOOL CARRIER/MICRO IF IND. Routine 10/24/2024 12:30 AM EDT documented in this encounter Results * (ABNORMAL) [facility] CMP (CMP) (FOR REMOTE [facility] USE) (10/24/2024 2:03 AM EDT) SODIUM [...] 0.55 - 1.02 mg/dL TBH TBH EGFR-AF GUATEMALAN >60 >=60 mL/min/1. 73m 2 [facility] TBH EGFR-NON AF GUATEMALAN >60 >=60 mL/min/1. 73m 2 [facility] BUN [...] WITH AUTO DIFF (10/24/2024 2:03 AM EDT) [facility] TB WBC 8.7 4.0 - 11.0 [...] Result Performing Organization Address [facility] Co de Phone Number [facility] * (ABNORMAL) [facility] UA (CLEAN/CATCH) SPOOL CARRIER/MICRO IF IND. (10/24/2024 12:30 AM EDT) COLOR [...] DO [facility] Final Result Performing Organization Address City/State/[facility] Co de Phone Number [facility] documented in this encounter Visit Diagnoses Not on filedocumented in this encounter
--- OUTSIDE RECORDS SUMMARY | 2024-11-03 05:31 | XMS_ITS | Encounter Summary ---
Author Organization [facility] Address [address] [place] [address] Care Team Providers Care Nailing Machine Operator Automatic Name Role Phone Unavailable Primary Care Provider Unavailabl e Encounter Details Date Type Department Care Team (Late st Contact Info) Description 10/26/2024 Telephone [facility] OB [address] [place] [phone] Osmany Bella, DO [address] [place], [place] [phone] Social History Tobacco Use Types Packs/Day Years [...] Wiley LPN - 10/26/2024 8:38 AM EDT [facility] pharmacy called and voiced that they [...] be delivered on 11/03/24 via repeat . Table Assembler Metal was informed. Christie Wiley LPN documented in this encounter Plan of Treatment Upcoming Encounters Date Type Department Care Team (Late st Contact Info) Description 11/10/2024 2:20 PM EDT Office Visit [facility] BCP OB [address] [facility] [place] [address] Mya Kaplan PA [address] [facility] [place] [address] documented as of this encounter Visit Diagnoses Diagnosis Kidney stones Calculus of kidney documented in this encounter
--- OUTSIDE RECORDS SUMMARY | 2024-11-03 05:31 | XMS_ITS | Encounter Summary ---
Author Organization [facility] Address [address] [place] [address] Care Team Providers Care Director Of Operations Support Name Role Phone Unavailable Primary Care Provider Unavailabl e Encounter Details Date Type Department Care Team (Late st Contact Info) Description 12/10/2023 Abstract [facility] OB [address] [facility] [facility] [place] [address] Christie Wiley LPN Social History Tobacco [...] 11/10/2024 2:20 PM EDT Office Visit NOMS [address] [place] [address] yMa Kaplan PA [address] [place] [address] [place], [place] [phone] documented as of this encounter Visit Diagnoses Not on filedocumented in this encounter
--- OUTSIDE RECORDS SUMMARY | 2024-11-03 05:31 | XMS_ITS | Encounter Summary ---
Author Organization [facility] Address [address] [place] [address] Care Team Providers Care Claims Attorney Name Role Phone Unavailable Primary Care Provider Unavailabl e Encounter Details Date Type Department Care Team (Late st Contact Info) Description 12/15/2023 Clinisync Result Encounter NOMS External Department Unsolicited Zhane Bella DO [address] [facility] [place] [address] Social History Tobacco Use Types Packs/Day Years [...] EDT Office Visit [facility] BCP OB [address] [facility] [place] [address] Mya Kaplan PA [address] [facility] [place] [address] documented as of this encounter Procedures Procedure Name Priority Date/Time Associated Diagnosis Comments CT ANGIOGRAM CHEST 12/15/2023 1: 32 PM EDT documented in this encounter Results * CT angiogram chest (12/15/2023 1:32 PM EDT) Anatomical Region Laterality Modality Body, Chest Computed Tomogra phy 12/15/2023 1:32 PM EDT Narrative 12/15/2023 1:35 [place] [address] CT Scan Report Signed Patient: GEORGIE POND MR#: [id number] : 2000 Acct:[id number] Age/Sex: 23 / F ADM Date: Loc: [facility] 258-[address]: Zhane Bella D.O. Ordering Physician: Zhane Bella D.O. Date of Service: 12/15/23 Procedure(s): CT angio chest Accession Number(s): [id number] cc: Physician,Non-Staff [place] [address] Patient Name: GEORGIE POND MRN: [id number] date: 2000 Sex: F Assigned Patient Location: [facility] Current Patient Location: [facility] Accession/Order Number: [id number] Exam Date: 12/15/2023 11:40 Report Date: 12/15/2023 [...] Signed By: 12/15/23 1335 DD/ 1332 TD/TT: Pulper: Procedure Note Radiology, Radiologist, - 12/15/2023 [place] [address] CT Scan Report Signed Patient: GEORGIE POND TMR#: [id number] : 2000Acct:[id number] Age/Sex: 23 / FADM Date: Loc: [facility] 258-[address]: Zhane Bella D.O. Ordering Physician: Zhane Bella D.O. Date of Service: 12/15/23 Procedure(s): CT angio chest Accession Number(s): [id number] cc: Physician,Non-Staff Adriana [place] [address] Patient Name: GEORGIE POND MRN: [id number] date: 2000 Sex: F Assigned Patient Location: [facility] Current Patient Location: [facility] Accession/Order Number: [id number] Exam Date: 12/15/2023 11:40 Report Date: 12/15/2023 [...] No acute intrathoracic findings. Electronically authenticated by: EJAN CONDE Date: 12/15/2023 13:32 Dictated By: Jean Hodgson M.D. Signed By:12/15/23 1335 DD/ 1332 TD/TT: Pulper: Zhane Bella DO [facility] [place] PROCEDURES Final Result documented in this encounter Visit Diagnoses Not on filedocumented in this encounter
--- OUTSIDE RECORDS SUMMARY | 2024-11-03 05:31 | XMS_ITS | Encounter Summary ---
Author Organization [facility] Address [address] [place] [address] Care Team Providers Care Latin Dance Instructor Name Role Phone Unavailable Primary Care Provider Unavailabl e Encounter Details Date Type Department Care Team (Late st Contact Info) Description 07/07/2024 Abstract [facility] OB [address] [place] [address] Osmany Bella DO [address] [facility] [address] [place], [facility]11 Social History Tobacco Use Types Packs/Day Years [...] 11/10/2024 2:20 PM EDT Office Visit [facility] OB [address] [facility] [address] Mya Kaplan PA [address] [facility] [address] [place], [facility]11 documented as of this encounter Visit Diagnoses Not on filedocumented in this encounter
--- OUTSIDE RECORDS SUMMARY | 2024-11-03 05:31 | XMS_ITS | Encounter Summary ---
Author Organization [facility] Address [address] [place] [address] Care Team Providers Care Outbound Telemarketing Representative Name Role Phone Unavailable Primary Care Provider Unavailabl e Reason for Visit * Reason Comments Med Refill Encounter Details Date Type Department Care Team (Late Contact Info) Description 12/15/2023 Refill [facility] OB [address] [facility] [address] Osmany Bella DO [address] [place], [facility]11 Flank pain Social History Tobacco Use [...] OB [address] [phone] Mya Kaplan PA [address] [place] [address] documented as of this encounter Visit Diagnoses Diagnosis Flank pain Abdominal pain, unspecified site documented in this encounter
--- OUTSIDE RECORDS SUMMARY | 2024-11-03 05:32 | XMS_ITS | Encounter Summary ---
Author Organization [employer] [facility] [employer] Address [place]-[id number] [place] [address] Care Team Providers Care Aquatic Biologist Name Role Phone No Pcp, No Pcp Primary Care Provider Unavailabl e Encounter Details Date Type Department Care Team (Late st Contact Info) Description 09/11/2023 Orders Only [facility] [address] [place] [address] Estefany Hilario LPN Screening for [...] often do you attend chur ch or spiritism services? Never 03/26/2021 Do you belong to [...] Recorded Total Score 4 08/29/2023 [facility] of Occupat ional [...] things needed for daily living? No 03/26/2021 [place] Depression Scale Answer Date Recorded [place] Depression Scale Total 13 09/12/2023 The thought [...] EDT SEE ATTACHED SCANNED REPORT us Reyna iDaz AQUACULTURE PROGRAM DIRECTOR-CN[facility] LAB BLOOD ORDERABLES Fin al Result MANUALLY [...] documented as of this encounter Care Teams Aquatic Biologist Relationship Specialty Start Date End Date No Pcp, [place] [address] PCP - General Family Medicine 09/01/24 documented as of this encounter
--- OUTSIDE RECORDS SUMMARY | 2024-11-03 05:32 | XMS_ITS | Encounter Summary ---
Author Organization [employer] Address [id number] [address] [place] [address] Care Team Providers Care Contract Implementation Analyst Name Role Phone No Pcp, No Pcp Primary Care Provider Unavailabl e Encounter Details Date Type Department Care Team (Late st Contact Info) Description 08/03/2021 Telephone [facility] Family Medicine [address] [place] [address] Mona Delvalle CMA Social History [...] often do you attend chur ch or muslim services? Never 03/26/2021 Do you belong to any clubs o r organizations such as baptist groups, unions, fraternal or athletic groups, or [...] Answer Date Recorded Total Score 15 08/03/2021 [facility] of Occupat ional Health - [...] documented as of this encounter Care Teams Contract Implementation Analyst Relationship Specialty Start Date End Date No Pcp, [place] [address] PCP - General Family Medicine 09/01/24 documented as of this encounter
--- OUTSIDE RECORDS SUMMARY | 2024-11-03 05:32 | XMS_ITS | Encounter Summary ---
Author Organization [employer] Address [id number] [address] [place] [address] Care Team Providers Care School Traffic Guard Name Role Phone No Pcp, No Pcp Primary Care Provider Unavailabl e Reason for Visit * Reason Comments Med Refill Encounter Details Date Type Department Care Team (Late st Contact Info) Description 12/14/2023 Refill [facility] [address] [place] [address] Gwen Sutton, DIABETES SOLUTIONS SPECIALIST[facility] [address] [place], [place] [address] Social History Tobacco Use Types Packs/Day Years [...] any clubs o r organizations such as confucianism groups, unions, fraternal or athletic groups, or [...] Answer Date Recorded Total Score 4 08/29/2023 [facility] of Occupat ional Health - Occupational [...] things needed for daily living? No 03/26/2021 [place] Depression Scale Answer Date Recorded [place] Depression Scale Total 13 09/12/2023 The thought [...] documented as of this encounter Care Teams School Traffic Guard Relationship Specialty Start Date End Date No Pcp, [place] [address] PCP - General Family Medicine 09/01/24 documented as of this encounter
--- OUTSIDE RECORDS SUMMARY | 2024-11-03 05:32 | XMS_ITS | Encounter Summary ---
Author Organization [facility] Address [address] [facility] [place] [address] Care Team Providers Care Ethnic Origins Teacher Name Role Phone Unavailable Primary Care Provider Unavailabl e Encounter Details Date Type Department Care Team ([facility] Contact Info) Description 12/10/2022 External Result Encounter [facility] [address] [facility] [place] [address] Osmany Bella DO [address] [place] [address] Social History Tobacco Use Types Packs/Day [...] Visit [facility] BCP OB [address] [place] [address] Mya Kaplan PA [address] [place] [address] documented as of this encounter Procedures [...] Final 12/10/2022 15:09) PATIENT INFO: ID #: [id number] : [birth year] (22 yrs)(F) Name: GEORGIE ROTH Visit Date: 12/10/2022 11:43 ESSIE PERFORMED BY: Attending: Marisel Charles MD Performed By: Pearl Hogue RDMS Referred By: Osmany Frances. Address: [address] [place] [address] [place] [address] Location: [facility] SERVICE(S) PROVIDED: Comprehensive Anatomic Survey Twins [id number] INDICATIONS: Screening for anatomic survey Z36.89 Twin [...] document Interventr. Septum: Not well visualized Cardiac [place]: Appears normal Diaphragm: Not well visualized 3 [...] document Interventr. Septum: Could not document Cardiac [place]: Appears normal Diaphragm: Could not document 3 [...] Signed Final Report 12/10/2022 15:09 IMPRESSION: 1. Griggs chorionic Di amniotic Twin Gestation. 2. Twin [...] Circumvallate placenta visualized. RECOMMENDATIONS: 1. Please see [facility] consultation documentation from today's encounter. 2. Patient is scheduled in two weeks for TTTS protocol. 3. Patient is scheduled in 4 weeks for anatomic surveys, heart ECHOs, and cervical length. 4. Subsequent follow up or other follow up as clinically determined by primary OB provider unless otherwise specified by [facility]. 5. Results forwarded to ordering provider so they can follow up with the patient as necessary. The copy-to physician of this order is OSMANY Goodwin The ordering physician of this order is MARISEL Vázquez Procedure Note Radiology, Radiologist, - 12/10/2022 THIS EXAM WAS PERFORMED AT [facility] REPORT (Signed Final 12/10/2022 15:09) PATIENT INFO: ID #: [id number] : [birth year] (22 yrs)(F) Name: GEORGIE ROTH Visit Date: 12/10/2022 11:43 ESSIE PERFORMED BY: Attending: Marisel Charles MD Performed By: Pearl Hogue RDMS Referred By: Osmany Frances. Address: [address] [place] [address] [place] [address] Location: [facility] SERVICE(S) PROVIDED: Comprehensive Anatomic Survey Tw[place] [id number] INDICATIONS: Screening for anatomic survey Z36.89 Twin [...] document Interventr. Septum: Not well visualized Cardiac [place]: Appears normal Diaphragm: Not well visualized 3 [...] document Interventr. Septum: Could not document Cardiac [place]: Appears normal Diaphragm: Could not document 3 [...] Signed Final Report 12/10/2022 15:09 IMPRESSION: 1. Griggs chorionic Di amniotic Twin Gestation. 2. Twin [...] Circumvallate placenta visualized. RECOMMENDATIONS: 1. Please see [facility] consultation documentation from today's [...]
--- OUTSIDE RECORDS SUMMARY | 2024-11-03 05:32 | XMS_ITS | Encounter Summary ---
Author Organization [employer] Address [id number] [address] [place] [address] Care Team Providers Care Aerospace Medicine Physician Name Role Phone No Pcp, No Pcp Primary Care Provider Unavailabl e Encounter Details Date Type Department Care Team (Late st Contact Info) Description 09/07/2020 Telephone [facility] Family Medicine [address] [place] [address] Cooper Goff CMA Social History [...] documented as of this encounter Care Teams Aerospace Medicine Physician Relationship Specialty Start Date End Date No Pcp, [place] [address] PCP - General Family Medicine 09/01/24 documented as of this encounter
--- OUTSIDE RECORDS SUMMARY | 2024-11-03 05:32 | XMS_ITS | Encounter Summary ---
Author Organization [employer] Address [id number] [address] [place] [address] Care Team Providers Care Supervisor Transferring And Boxing Name Role Phone No Pcp, No Pcp Primary Care Provider Unavailabl e Encounter Details Date Type Department Care Team (Late st Contact Info) Description 05/10/2021 Telephone [facility] Family Medicine [address] [place] [address] [address] Kristyn Gutierrez CMA Social History [...] Answer Date Recorded Total Score 13 03/26/2021 [facility] of Occupat ional Health - Occupational Stress [...] covid test please send order to [facility]. [phone] documented in this encounter Plan of Treatment [...] as of this encounter Care Teams Supervisor Transferring And Boxing Relationship Specialty Start Date End Date No Pcp, [place] [address] PCP - General Family Medicine 09/01/24 documented as of this encounter
--- OUTSIDE RECORDS SUMMARY | 2024-11-03 05:32 | XMS_ITS | Encounter Summary ---
Author Organization [facility] Address [address] [facility] [place] [address] Care Team Providers Care Senior Data Warehouse Architect Name Role Phone Unavailable Primary Care Provider Unavailabl e Encounter Details Date Type Department Care Team (Late Contact Info) Description 10/21/2024 Bamboo flowsheet [facility] OB [address] [address] Mya Kaplan, PA [address] [place] [address] Dr [place], [facility] Social History Tobacco Use Types [...] 11/10/2024 2:20 PM EDT Office Visit [facility] OB [address] [address] Mya Kaplan PA [address] [facility] [address] [place], [facility] documented as of this encounter Visit Diagnoses Not on filedocumented in this encounter
--- OUTSIDE RECORDS SUMMARY | 2024-11-03 05:32 | XMS_ITS | Encounter Summary ---
Author Organization [employer] Address [facility][id number] [address] [place] [address] Care Team Providers Care Xerox Machine Assembler Name Role Phone No Pcp, No Pcp Primary Care Provider Unavailabl e Encounter Details Date Type Department Care Team (Late st Contact Info) Description 08/03/2021 Documentation [facility] Family [facility] [address] [place] [address] [place] [address] Mona Delvalle CMA Social History [...] Answer Date Recorded Total Score 15 08/03/2021 [facility] of Occupat ional Health - Occupational [...] documented as of this encounter Care Teams Xerox Machine Assembler Relationship Specialty Start Date End Date No Pcp, [place] [address] PCP - General Family Medicine 09/01/24 documented as of this encounter
--- OUTSIDE RECORDS SUMMARY | 2024-11-03 05:32 | XMS_ITS | Encounter Summary ---
Author Organization [facility] Address [address] [facility] [place] [address] Care Team Providers Care Metal Checker Name Role Phone Unavailable Primary Care Provider Unavailabl e Encounter Details Date Type Department Care Team ([facility] Contact Info) Description 11/27/2022 Abstract [facility] OB [address] [facility] [place] [address] Mya Kaplan PA [address] [place] [address] [place] [address] Social History Tobacco Use Types [...] 11/10/2024 2:20 PM EDT Office Visit [facility] OB [address] [facility] [place] [address] Mya Kaplan PA [address] [place] [address] [place] [address] documented as of this encounter Visit Diagnoses Not on filedocumented in this encounter
--- OUTSIDE RECORDS SUMMARY | 2024-11-03 05:32 | XMS_ITS | Encounter Summary ---
Author Organization [employer] Sys tem Address [facility] [id number] [address] [place] [address] Care Team Providers Care Production Helper Name Role Phone No Pcp, No Pcp Primary Care Provider Unavailabl e Encounter Details Date Type Department Care Team (Late st Contact Info) Description 05/15/2021 Telephone [facility] [address] [place] [address] [place] [address] Mona Delvalle CMA Social History [...] often do you attend chur ch or uatsdin services? Never 03/26/2021 Do you belong to [...] Answer Date Recorded Total Score 13 03/26/2021 [facility] of Occupat ional Health - Occupational Stress [...] EST Can we get her results from [facility] for COVID test I don't see [...] as of this encounter Care Teams Production Helper Relationship Specialty Start Date End Date No Pcp, [place] [address] PCP - General Family Medicine 09/01/24 documented as of this encounter
--- OUTSIDE RECORDS SUMMARY | 2024-11-03 05:32 | XMS_ITS | Encounter Summary ---
Author Organization [employer] Address [facility] [place]-[id number] [address] [place] [address] Care Team Providers Care Warehouse Freight Handler Name Role Phone No Pcp, No Pcp Primary Care Provider Unavailabl e Encounter Details Date Type Department Care Team (Late st Contact Info) Description 09/17/2023 Telephone [facility] [address] [place] [address] Tameka Abebe Social History Tobacco [...] any clubs o r organizations such as yarsanism groups, unions, fraternal or athletic groups, or [...] Answer Date Recorded Total Score 4 08/29/2023 [facility] [place] of Occupat ional Health - Occupational Stress [...] things needed for daily living? No 03/26/2021 [place] Depression Scale Answer Date Recorded [place] Depression Scale Total 13 09/12/2023 The thought [...] Recorded Do you need help finding a [facility] career center and/or a training program? No [...] Tums as needed. She also needs to military exchange wireless manager to frequent small meals, she should not [...] documented as of this encounter Care Teams Warehouse Freight Handler Relationship Specialty Start Date End Date No Pcp, [place] [address] PCP - General Family Medicine 09/01/24 documented as of this encounter
--- OUTSIDE RECORDS SUMMARY | 2024-11-03 05:32 | XMS_ITS | Encounter Summary ---
Author Organization [facility] Address [address] [place] [address] Care Team Providers Care Director Of Claims Name Role Phone Unavailable Primary Care Provider Unavailabl e Encounter Details Date Type Department Care Team (Late Contact Info) Description 10/30/2024 Clinisync Result Encounter [facility] External Department Unsolicited Mya Jacob PA [address] [place] [address] [place] [address] Social History Tobacco Use Types Packs/Day Years [...] PM EDT Office Visit [facility] [address] [place] [address] [place] [address] Mya Jacob PA [address] [place] [address] [place] [address] documented as of this encounter Procedures Procedure Name Priority Date/Time Associated Diagnosis Comments US OB BPP W NON-STRESS 10/30/2024 1:24 PM EDT documented in this encounter Results * US OB BPP W NON-STRESS (10/30/2024 1:24 PM EDT) Anatomical Region Laterality Modality Other 10/30/2024 1:24 PM EDT Narrative 10/30/2024 1:26 [place] [address] Ultrasound Report Signed Patient: GEORGIE POND MR#: [id number] : 2000 Acct:[id number] Age/Sex: 24 / F ADM Date: 10/30/24 Loc: [place] [address]: Mya Jacob Ordering Physician: Mya Jacob Date of Service: 10/30/24 Procedure(s): US OB BPP w non-stress Accession Number(s): [id number] cc: Mya Jacob; Physician,Non-Staff [place] [id number] Patient Name: GEORGIE POND MRN: [id number] date: 2000 Sex: F Assigned Patient Location: [facility] Current Patient Location: [facility] Accession/Order Number: [id number] Exam Date: 10/30/2024 13:17 Report Date: 10/30/2024 13:24 At the request of: MYA JACOB Procedure: US OB BPP w non-stress Biophysical profile. Reason for exam: Incompetent cervix. COMPARISON: BPP 10/24/2024 TECHNIQUE: Transabdominal imaging of the gravid uterus was obtained. FINDINGS: Director Of Compensation reports a BPP is 8 out of 8. MELLISA measures 27.2 cm. heart rate 147 bpm. US/US OB BPP w non-stress Impression: BPP 8 out of 8. Polyhydramnios Impression dictated by: Rufus Garcia Jr., D.O. 10/30/2024 1:24 PM Dictation Location: [place] [address] Electronically authenticated by: [id number] Y Date: 10/30/2024 13:24 Dictated By: Rufus Garcia M.D. Signed By: 10/30/24 1326 DD/ 1324 TD/TT: Apprentice Painter Brush: Procedure Note Radiology, Radiologist, - 10/30/[address] [address] Ultrasound Report Signed Patient: GEORGIE POND TMR#: [id number] : 2000Acct:[id number] Age/Sex: 24 / FADM Date: 10/30/24 Loc: [place] [address]: Mya Jacob Ordering Physician: Mya Jacob Date of Service: 10/30/24 Procedure(s): US OB BPP w non-stress Accession Number(s): [id number] cc: Mya Jacob; Physician,Non-Staff M.Lee [place] [address] Patient Name: GEORGIE POND MRN: [id number] date: 2000 Sex: F Assigned Patient Location: [facility] Current Patient Location: [facility] Accession/Order Number: [id number] Exam Date: 10/30/2024 13:17 Report Date: 10/30/2024 13:24 At the request of: MYA JACOB Procedure: US OB BPP w non-stress Biophysical profile. Reason for exam: Incompetent cervix. COMPARISON: BPP 10/24/2024 TECHNIQUE: Transabdominal imaging of the gravid uterus was obtained. FINDINGS: Director Of Compensation reports a BPP is 8 out of 8. MELLISA measures 27.2 cm. heart rate 147 bpm. US/US OB BPP w non-stress Impression: BPP 8 out of 8. Polyhydramnios Impression dictated by: Rufus Garcia Jr., D.O. 10/30/2024 1:24 PM Dictation Location: [place] [address] Electronically authenticated by: [id number] Y Date: 3:24 Dictated By: Rufus Garcia M.D. Signed By:10/30/24 1326 DD/ 1324 TD/TT: Apprentice Painter Brush: Mya [facility] Final Result documented in this encounter Visit Diagnoses Not on filedocumented in this encounter
--- OUTSIDE RECORDS SUMMARY | 2024-11-03 05:32 | XMS_ITS | Encounter Summary ---
Author Organization [employer] Sys tem Address [facility] [id number] [address] [place] [address] Care Team Providers Care Front Office Clerk Name Role Phone No Pcp, No Pcp Primary Care Provider Unavailabl e Encounter Details Date Type Department Care Team (Late st Contact Info) Description 05/23/2021 Telephone [facility] [address] [place] [address] [place] [address] Mona Delvalle CMA Social History [...] Score 5 05/25/2021 [facility] [place] of Occupat ional Health - Occupational Stress [...] documented as of this encounter Care Teams Front Office Clerk Relationship Specialty Start Date End Date No Pcp, No Pcp [place] [address] PCP - General Family Medicine 09/01/24 documented as of this encounter
--- OUTSIDE RECORDS SUMMARY | 2024-11-03 05:32 | XMS_ITS | Encounter Summary ---
Author Organization [employer] Sys [employer] Address [id number] [address] [place] [address] Care Team Providers Care Analyst Programmer Name Role Phone No Pcp, No Pcp Primary Care Provider Unavailabl e Encounter Details Date Type Department Care Team (Late st Contact Info) Description 09/09/2023 Orders Only [facility] [address] [place] [address] Estefany Hilario LPN Encounter for [...] often do you attend chur ch or alevism services? Never 03/26/2021 Do you [...] things needed for daily living? No 03/26/2021 [place] Depression Scale Answer Date Recorded [place] Depression Scale Total 13 09/12/2023 The thought [...] SEE ATTACHED SCANNED REPORT us Reyna Diaz BINDERY OPERATOR-CNM LAB BLOOD ORDERABLES Fin al Result [...] documented as of this encounter Care Teams Analyst Programmer Relationship Specialty Start Date End Date No Pcp, [place] [address] PCP - General Family Medicine 09/01/24 documented as of this encounter
--- OUTSIDE RECORDS SUMMARY | 2024-11-03 05:32 | XMS_ITS | Encounter Summary ---
Author Organization [facility] Address [address] [facility] [place] [address] Care Team Providers Care Care Manager Cna Name Role Phone Unavailable Primary Care Provider Unavailabl e Encounter Details Date Type Department Care Team (Late Contact Info) Description 01/01/2023 Abstract [facility] [address] [place] [address] Osmany Bella DO [address] [place] [address] Social History Tobacco Use [...] 11/10/2024 2:20 PM EDT Office Visit [facility] [address] [place] [address] Mya Kaplan PA [address] [address] documented as of this encounter Visit Diagnoses Not on filedocumented in this encounter
--- OUTSIDE RECORDS SUMMARY | 2024-11-03 05:32 | XMS_ITS | Encounter Summary ---
Author Organization [employer] Sys [employer] Address [id number] [address] [place] [address] Care Team Providers Care Dixonac Operator Name Role Phone No Pcp, No Pcp Primary Care Provider Unavailabl e Encounter Details Date Type Department Care Team (Late st Contact Info) Description 10/05/2020 Telephone [facility] [address] [place] [address] [place] [address] Cooper Goff CMA Social History [...] documented as of this encounter Care Teams Dixonac Operator Relationship Specialty Start Date End Date No Pcp, [place] [address] PCP - General Family Medicine 09/01/24 documented as of this encounter
--- OUTSIDE RECORDS SUMMARY | 2024-11-03 05:32 | XMS_ITS | Encounter Summary ---
Author Organization [employer] Sys [employer] Address [facility][id number] [address] [place] [address] Care Team Providers Care Field Map Technician Name Role Phone No Pcp, No Pcp Primary Care Provider Unavailabl e Encounter Details Date Type Department Care Team (Late st Contact Info) Description 05/17/2021 Orders Only [facility] [address] [place] [address] [place] [address] Mona Delvalle CMA Body aches; [...] any clubs o r organizations such as denominational groups, unions, fraternal or athletic groups, or [...] Answer Date Recorded Total Score 13 03/26/2021 [facility] of Occupat ional Health - Occupational [...] Negative SUNQUEST NASOPHARYNGEAL 05/11/2021 Loretta Brice APRN-TOOL LAPPER HAND MICROBIOLOGY - GENE RAL ORDERABLES Final Result [...] as of this encounter Care Teams Field Map Technician Relationship Specialty Start Date End Date No Pcp, [place] [address] PCP - General Family Medicine 09/01/24 documented as of this encounter
--- OUTSIDE RECORDS SUMMARY | 2024-11-03 05:32 | XMS_ITS | Encounter Summary ---
Author Organization [facility] Address [address] [facility] [place] [address] Care Team Providers Care Hospice Patient Care Secretary Name Role Phone Unavailable Primary Care Provider Unavailabl e Encounter Details Date Type Department Care Team (Late Contact Info) Description 11/02/2022 Abstract [facility] [address] [facility] [place] [address] Osmany Bella DO [address] [place] [address] Social History Tobacco Use Types Packs/Day [...] 2:20 PM EDT Office Visit [facility] [address] [place] [address] Mya Kaplan PA [address] [place] [address] documented as of this encounter Visit Diagnoses Not on filedocumented in this encounter
--- OUTSIDE RECORDS SUMMARY | 2024-11-03 05:32 | XMS_ITS | Encounter Summary ---
Author Organization [employer] Sys tem Address [facility] [place][id number] [address] [place] [address] Care Team Providers Care Taxicab Starter Name Role Phone No Pcp, No Pcp Primary Care Provider Unavailabl e Encounter Details Date Type Department Care Team (Late st Contact Info) Description 08/29/2023 Telephone [facility] [address] [facility] [address] [place] [address] Julia Morgan CMA Social History [...] Answer Date Recorded Total Score 4 08/29/2023 [facility] of Occupat ional Health - Occupational [...] things needed for daily living? No 03/26/2021 [place] Depression Scale Answer Date Recorded [place] Depression Scale Total 7 04/05/2023 The thought [...] Recorded Do you need help finding a [facility] career center and/or a training [...] documented as of this encounter Care Teams Taxicab Starter Relationship Specialty Start Date End Date No Pcp, [place] [address] PCP - General Family Medicine 09/01/24 documented as of this encounter
--- OUTSIDE RECORDS SUMMARY | 2024-11-03 05:32 | XMS_ITS | Encounter Summary ---
Author Organization [facility] Address [address] [place] [address] Care Team Providers Care Power Generation Turbine Room Operator Name Role Phone Unavailable Primary Care Provider Unavailabl e Encounter Details Date Type Department Care Team (Late Contact Info) Description 12/14/2022 Abstract [facility] [address] [place] [address] Osmany Bella DO [address] [facility] [place] [address] Social History [...] Visit [facility] [address] [place] [address] Mya Kaplan PA [address] [place] [address] documented as of this encounter Visit Diagnoses Not on filedocumented in this encounter
--- OUTSIDE RECORDS SUMMARY | 2024-11-03 05:32 | XMS_ITS | Encounter Summary ---
Author Organization [facility] Address [address] [facility] [place] [address] Care Team Providers Care Motor Vehicle Dispatcher Name Role Phone Unavailable Primary Care Provider Unavailabl e Encounter Details Date Type Department Care Team (Late Contact Info) Description 11/07/2022 Abstract [facility] [address] [place] [address] Osmany Bella DO [address] [facility] [place] [address] Social History Tobacco Use Types Packs/Day [...] Visit [facility] [address] [place] [address] Mya Kaplan PA [address] [place] [address] documented as of this encounter Visit Diagnoses Not on filedocumented in this encounter
--- OUTSIDE RECORDS SUMMARY | 2024-11-03 05:32 | XMS_ITS | Encounter Summary ---
Author Organization [employer] Sys tem Address [facility][id number] [address] [place] [address] Care Team Providers Care Vc++ Developer Name Role Phone No Pcp, No Pcp Primary Care Provider Unavailabl e Reason for Visit * Reason Comments Med Refill Encounter Details Date Type Department Care Team (Late st Contact Info) Description 11/12/2020 Refill [facility] [address] [place] [place] [address] Iona Layne, SPECIAL EDUCATION INSTRUCTOR-BUILDING EQUIPMENT OPERATOR [address] [place] [address] Hematemesis without nausea Social History [...] documented as of this encounter Care Teams Vc++ Developer Relationship Specialty Start Date End Date No Pcp, [place] [address] PCP - General Family Medicine 09/01/24 documented as of this encounter
--- OUTSIDE RECORDS SUMMARY | 2024-11-03 05:32 | XMS_ITS | Encounter Summary ---
Author Organization [employer] Sys tem Address [facility] [place]-[id number] [address] [place] [address] Care Team Providers Care Security Rover Name Role Phone No Pcp, No Pcp Primary Care Provider Unavailabl e Encounter Details Date Type Department Care Team (Late st Contact Info) Description 03/06/2021 Telephone [facility] [address] [place] [address] [address] [place] [address] Madeline Tubbs RMA Social History [...] test was ordered and sent [facility] to [facility]. documented in this encounter Plan [...] as of this encounter Care Teams Security Rover Relationship Specialty Start Date End Date No Pcp, [place] [address] PCP - General Family Medicine 09/01/24 documented as of this encounter
--- OUTSIDE RECORDS SUMMARY | 2024-11-03 05:32 | XMS_ITS | Encounter Summary ---
Author Organization [employer] Address [facility]-[id number] [address] [place] [address] Care Team Providers Care Spent Grain Dryer Name Role Phone No Pcp, No Pcp Primary Care Provider Unavailabl e Encounter Details Date Type Department Care Team (Late st Contact Info) Description 10/21/2023 Telephone [facility] [address] [place] [address] Dania Olsen RMA Social History [...] any clubs o r organizations such as gnosticism groups, unions, fraternal or athletic groups, or [...] Total Score 4 08/29/2023 [facility] [place] of Occupat ional Health - Occupational Stress [...] things needed for daily living? No 03/26/2021 [place] Depression Scale Answer Date Recorded [place] Depression Scale Total 13 09/12/2023 The thought [...] Recorded Do you need help finding a [facility] career center and/or a training program? [...] vision and passed out and is in [facility].As she was talking to me [...] documented as of this encounter Care Teams Spent Grain Dryer Relationship Specialty Start Date End Date No Pcp, [place] [address] PCP - General Family Medicine 09/01/24 documented as of this encounter
--- OUTSIDE RECORDS SUMMARY | 2024-11-03 05:32 | XMS_ITS | Encounter Summary ---
Author Organization [facility] Address [address] [place] [address] Care Team Providers Care Net Programmer Analyst Name Role Phone Unavailable Primary Care Provider Unavailabl e Encounter Details Date Type Department Care Team (Late Contact Info) Description 07/07/2024 External Result Encounter [facility] [address] [place] [address] Osmany Bella DO [address] [place], [place] [address] Siddhartha Barrera, [facility]11 Social History Tobacco Use Types [...] PM EDT Office Visit [facility] [address] [place], [place] [address] [address] Mya Kaplan PA [address] [place], [facility]11 documented as of this encounter Procedures [...] differential (09/01/2024 3:48 PM EDT) Pathologist [facility] WHITE BLOOD CELL COUNT, WBC [...] DIFFERENTIAL [facility] Comment: PERFORMED AT [facility] [address],[place] [address] 09/01/2024 3:48 PM EDT 09/01/2024 9:40 PM EDT us Osmany Bella DO LAB BLOOD ORDERABLES Final Resul t [facility] * (ABNORMAL) RECURRENT VAGINITIS (HTRX) (08/12/2024 4:11 PM EDT) Pathologist [facility] ATOPOBIUM VAGINAE 23.789(A) 19.961 - [...] EDT [facility] MIGUEL ALBICANS, PARAPSILOSIS, TROPICALIS 0.000 19.961 - 30.770 ppm 08/13/2024 6:52 AM EDT [facility] MIGUEL ALBICANS, PARAPSILOSIS, TROPICALIS Not Detected 19.961 - 30.770 ppm 08/13/2024 6:52 AM EDT [facility] MIGUEL GLABRATA 0.000 23.000 - 32.138 ppm 08/13/2024 6:52 AM EDT [facility] MIGUEL GLABRATA Not Detected 23.000 - 32.138 ppm 08/13/2024 6:52 AM EDT [facility] MIGUEL KRUSEI 0.000 23.000 - 32.271 ppm 08/13/2024 6:52 AM EDT [facility] MIGUEL KRUSEI Not Detected 23.000 - 32.271 ppm 08/13/2024 6:52 AM EDT [facility] CHLAMYDIA TRACHOMATIS 0.000 23.000 - 31.467 ppm 08/13/2024 6:52 AM EDT [facility] CHLAMYDIA TRACHOMATIS Not Detected 23.000 - 31.467 ppm 08/13/2024 6:52 AM EDT [facility] GARDNERELLA VAGINALIS 26.712(A) 19.961 - 24.689 ppm 08/13/2024 6:52 AM EDT [facility] GARDNERELLA VAGINALIS Detected(A) 19.961 - 24.689 ppm 08/13/2024 6:52 AM EDT [facility] MEGASPHAERA (TYPES 1, 2) 15.626(A) 19.961 - 24.689 ppm 08/13/2024 6:52 AM EDT [facility] MEGASPHAERA (TYPES 1, 2) Detected(A) 19.961 - 24.689 ppm 08/13/2024 6:52 AM EDT [facility] NEISSERIA GONORRHOEAE 0.000 23.000 - 32.117 ppm 08/13/2024 6:52 AM EDT [facility] NEISSERIA GONORRHOEAE Not Detected 23.000 - 32.117 ppm 08/13/2024 6:52 AM EDT [facility] TRICHOMONAS VAGINALIS 0.000 23.000 - 32.119 ppm 08/13/2024 6:52 AM EDT [facility] TRICHOMONAS VAGINALIS Not Detected 23.000 - 32.119 ppm 08/13/2024 6:52 AM EDT [facility] MYCOPLASMA GENITALIUM 0.000 19.961 - 24.689 ppm 08/13/2024 6:52 AM EDT [facility] MYCOPLASMA GENITALIUM Not Detected 19.961 - 24.689 ppm 08/13/2024 6:52 AM EDT [facility] ERMB, C; MEFA 23.273(A) 23.000 - 27.611 ppm 08/13/2024 6:52 AM EDT [facility] ERMB, C; MEFA Detected(A) 23.000 - 27.611 ppm 08/13/2024 6:52 AM EDT [facility] TET B, TET M 27.416(A) 23.000 - 27.778 ppm 08/13/2024 6:52 AM EDT [facility] TET B, TET M Detected(A) 23.000 - 27.778 ppm 08/13/2024 6:52 AM EDT [facility] Tissue 08/12/2024 4:11 PM EDT 08/13/2024 1:36 AM EDT us Osmany Bella DO LAB BLOOD ORDERABLES Final Resul t [facility] [address] [place] [address] * AFP SINGLE MARKER SCRN, MATERNAL,SERUM ([facility]) [...] repeat testing Initial testing Physician Phone Number [phone] GENERAL TEST INFORMATION See Note This screening [...] developed and its performance characteristics determined by [facility] in a manner consistent with CLIA requirements. This test has not been cleared or approved by the U.S. Food and Drug Administration. Test Performed by: [facility] [address] [place] [id number] National Expansion Recruiter: Gamaliel Au Ph.D.; CLIA# [id number] PERFORMED AT [address] [place] [address] 07/27/2024 3:10 PM EDT 07/27/2024 3:12 PM EDT Osmany Jena DO LAB BLOOD ORDERABLES Final Resul t Performing Organization Address City/[facility]/ZIP Co de Phone Number [facility] * SYPHILIS TOTAL ([facility]) (07/27/2024 3:10 PM EDT) Pathologist [facility] SYPHILIS TOTAL <0.2 0.0 - 0.8 AI [facility] Comment: NON REACTIVE No serologic evidence of infection to Treponema pallidum (syphilis). Repeat testing may be considered in patients with suspected acute or primary syphilis in 2 to 4 weeks. PERFORMED AT [address],[place] [address] 07/27/2024 3:10 PM EDT 07/27/2024 3:12 PM EDT [place] DO LAB BLOOD ORDERABLES Final Resul t Performing Organization Address [facility] Co de Phone Number [facility] * Rubella antibody, IgG (07/27/2024 3:10 PM EDT) [facility] RUBELLA IGG 15 IU/mL [facility] Comment: Interpretation-------- <8 NEGATIVE-considered Not Immune 8-9 EQUIVOCAL-consider retesting with new specimen >9 POSITIVE-considered Immune PERFORMED AT [address],[place] [address] 07/27/2024 3:10 PM EDT 07/27/2024 3:12 PM EDT [facility] DO LAB BLOOD ORDERABLES Final Resul t Performing Organization Address [facility]/ZIP Co de Phone Number [facility] * Hepatitis C antibody (07/27/2024 3:10 PM EDT) Pathologist [facility] ANTI HCV W/PCR REFLEX Non-Reacti ve Non-Reacti ve [facility] Comment: NEW TEST METHOD NOTE If recent infection suspected, recommend repeat testing (>2 months). Nqdghj-gl-sozgrq ratio is <1.00. PERFORMED AT [address],[place] [address] 07/27/2024 3:10 PM EDT 07/27/2024 3:12 PM EDT Osmany Jena DO LAB BLOOD ORDERABLES Final Resul t [facility] * Hepatitis B surface antigen (07/27/2024 3:10 PM EDT) Pathologist [facility] HEPATITIS B SURG AG Non-Reacti ve Non-Reacti ve [facility] Comment: NEW TEST METHOD PERFORMED AT [address],[place] [address] 07/27/2024 3:10 PM EDT 07/27/2024 3:12 PM EDT [place] DO LAB BLOOD ORDERABLES Final Resul t [...] monitoring or management of patients. PERFORMED [address], [place] [address] 07/27/2024 3:10 PM EDT 07/27/2024 3:12 PM EDT us Osmany Jena DO LAB BLOOD ORDERABLES Final Resul t Performing Organization Address City[facility]/ZIP Co de Phone Number [facility] * TSH ([facility]) (07/27/2024 3:10 PM EDT) TSH 1.68 0.49 - 4.67 uIU/mL [facility] Comment:PERFORMED AT [address],[place] [address] 07/27/2024 3:10 PM EDT 07/27/2024 3:12 PM [...] AVERAGE GLUCOSE 85 mg/dL [facility] Comment:PERFORMED AT [facility] [address],[place] [address] 07/27/2024 3:10 PM EDT 07/27/2024 3:12 PM [...] 0.0 - 0.2 X10E9/L [facility] Comment:PERFORMED AT [facility] [address],[place] [address] 07/27/2024 3:10 PM EDT 07/27/2024 3:12 PM EDT us Osmany Jena DO LAB BLOOD ORDERABLES Final Resul t [facility] * US OB follow up transabdominal approach (07/07/2024 2:55 PM EST) Anatomical Region Laterality Modality Body Ultrasound 07/07/2024 2:55 PM EST Narrative 07/07/2024 2:54 PM EST THIS EXAM WAS PERFORMED AT [facility] HISTORY: Vaginal bleeding in COMPARISON: 05/15/2024 [...] - 07/07/2024 THIS EXAM WAS PERFORMED AT [facility] HISTORY: Vaginal bleeding in COMPARISON: 05/15/2024 [...]
--- OUTSIDE RECORDS SUMMARY | 2024-11-03 05:32 | XMS_ITS | Encounter Summary ---
Author Organization [employer] Address [id number] [address] [place] [address] Care Team Providers Care Hull Line Crew Member Name Role Phone No Pcp, No Pcp Primary Care Provider Unavailabl e Reason for Visit * Reason Onset Date Comments Med Refill 09/07/2020 Encounter Details Date Type Department Care Team (Late st Contact Info) Description 09/07/2020 Refill [facility] [address] [place] [address] [place] [address] Cooper Goff CMA Social History [...] documented as of this encounter Care Teams Hull Line Crew Member Relationship Specialty Start Date End Date No Pcp, [place] [address] PCP - General Family Medicine 09/01/24 documented as of this encounter
[2024-11-03] MEDS: 0.9 % SODIUM CHLORIDE 1,000 ML 1000 ML IV ×2 (05:53→06:49)
[2024-11-03 06:04] LABS: Hematocrit 34.0 % (36.0-48.0); Hemoglobin 11.2 g/dL (12.0-16.0); Immature Granulocytes Abs Auto 0.16 10^3/uL (0.00-0.03); Immature Granulocytes Pct Auto 1.0 % (0.0-0.5); Lymphocytes Absolute Auto 2.4 10^3/uL (1.2-3.8); Mean Corpuscular HGB Conc 32.9 g/dL (29.9-35.2); Mean Corpuscular Hemoglobin 26.3 pg (26.7-34.0); Mean Corpuscular Volume 79.8 fL (81.0-99.0); Platelet Count 310 10^3/uL (150-450); Red Blood Count 4.26 10^6/uL (4.20-5.40); White Blood Count 16.5 10^3/uL (4.0-11.0)
[2024-11-03 06:07] LABS: Glucose Urine UA NEGATIVE (NEGATIVE)
[2024-11-03 06:17] LABS: Cannabinoid Screen Urine NEGATIVE (NEGATIVE)
[2024-11-03 06:18] LABS: Methamphetamines Screen Urine NEGATIVE (NEGATIVE); Tricyclic Antidepressant Urine NEGATIVE (NEGATIVE)
[2024-11-03 06:40] LABS: Cast Seen? NONE SEEN #/LPF (NONE SEEN); Crystals Seen? None Seen #/HPF (None Seen); Urine Culture Indicated YES-LC
[2024-11-03] MEDS: CEFAZOLIN SODIUM/DEXTROSE,ISO 2 GM/50 ML PIGGYBACK IV ×2 (06:49→12:30)
[2024-11-03] MEDS: FAMOTIDINE/PF 20 MG/2 ML VIAL IV (06:51)
[2024-11-03] MEDS: METOCLOPRAMIDE HCL 10 MG/2 ML VIAL IVP (06:51)
[2024-11-03] MEDS: CITRIC ACID/SODIUM CITRATE 30 ML SOLUTION ORACIT SHOHL'S SOLN PO (06:51)
--- NOTE | 2024-11-03 08:39 | P.ON_ITS ---
Brief Operative Note Date of procedure: 11/03/24 Pre-op diagnosis general: iup at term gestation, previous c/s, depression/anx iety Post-op diagnosis: same as pre-op Procedure: NAME OF PROCEDURE: [ section ] PROCEDURE: Patient was taken back to the Operating Room where she was given a spinal anesthesia with Duramorph without difficulty. She was prepped and draped in the normal sterile fashion. A Pfannenstiel skin incision was then made 2 cm above the symphysis pubis and carried down to underlying rectus fascia using a Bovie. The fascia was incised in the midline and extended laterally using Ruffin scissors. Two Gamal clamps were placed on the superior aspect of the fascia and dissected off the underlying rectus muscles. The same was performed on the inferior aspect as well. The muscles were then in the midline. Peritoneum was identified and entered bluntly. The peritoneum was then extended superiorly and inferiorly with good visualization of the bladder. The bladder blade was inserted. A low transverse incision was made on the patient's uterus and extended laterally digitally. The was then delivered atraumatically after the bladder blade was removed in the cephalic position. The cord was cla mped and cut. Cord blood was obtained. The infant was handed off to awaiting team. The patient's placenta was spontaneously delivered. The uterus was then exteriorized. The uterus was cleared of all clots and debris. The bladder blade was reinserted. The patient's uterine incision was closed using #0 Vicryl in a running lock fashion. Excellent hemostasis was assured. The uterus was then returned to the patient's abdomen. The patient's abdomen was copiously irrigated using warm saline. Peritoneal gutters were cleared of all clots and debris. Again excellent hemostasis was assured. The patient's peritoneum was closed using 3-0 Vicryl in a running fashion. The patient's fascia was closed using #0 Vicryl in a running fashion. The patient's skin was closed using 4-0 Vicryl subcuticularly. The patient tolerated the procedure well. Sponge, lap, and needle counts were correct x2. The patient was taken to the Recovery Room in stable condition. Anesthesia: spinal Surgeon: Osmany Bella Investment Recovery Technician: Joanna Coleman Estimated blood loss (mL): 575 Pathology: none sent Condition: stable Disposition: floor Urinary Catheter Management Urinary Catheter Management Urethral: Cath placed during this visit: no
--- NOTE | 2024-11-03 08:40 | PM.OBPRCCS ---
Procedure Pre-op/Post-op diagnoses: Pre-Op/Post-Op Diagnoses Operation Date: 11/03/24 07:30 <No data on this case meets the specified criteria> Procedure: Procedures Operation Date: 11/03/24 07:30 Actual Procedure Side Surgeon p Repeat Not Applicable Osmany Bella DO Park Worker Supervisor: Joanna Coleman Estimated blood loss (mL): 575 Disposition: floor Anesthesia type: Spinal
--- NOTE | 2024-11-03 10:03 | SWNOTE1 ---
DOV spoke with nurse and SW will need to see pt. SW stopped back in [facility] and saw order that CPS did request to be notified of of pt's child. When SW was in [facility], department secretary was on phone with CPS. SW spoke with CPS on phone. She stated that pt has twins who are almost 2 and they are not in the home, they are with biological family members. Pt also has a almost 1 year old and that child has went through the kinship program and pt does not have custody of that child. She voiced that the almost 2 year olds were nearly diagnosed with failure to thrive and the almost 1 year old has not been to the doctor since baby was at hospital. Pt has neglected her children. She had very limited care as well. The plan is for CPS to take custody of child. CPS window caser voiced that pt has threatened her life and voiced that they will not take this child and she will go to detention before letting them take this child. CPS window caser did ask if we had security, DOV confirmed that we do. CPS worker is going to talk to her legal team to see if they can start the process today. CPS window caser plans on coming tomorrow. She will call before coming. DOV plan is to speak with pt today. DOV updated nursing and physician. SW to speak with Maddison Director of [facility].
--- NOTE | 2024-11-03 10:44 | SWNOTE1 ---
SW received call from nurse and pt is ready to talk and has no visitors in room. SW stopped in to speak with pt. SW discussed CPS being involved in her life and her other children. Pt voiced her twins that are almost 2 are with her aunt. She voiced her nearly 1 year old is with her sister's gunite mixer. She voiced she does see her other children as it is only temporary custody. She voiced she is hopeful to get them all back. Has been going through court system, but was on bed rest and not able to continue to pursue getting kids back at this time. SW did let pt know that CPS will be coming to talk to her and they are possibly looking in to taking custody of child. She did voice her nurse outreach case manager is Kristin. She spoke to Kristin on Saturday. Pt voiced that her biggest issue has been transportation. She voiced she was not able to make it to doctor appointments, but did cancel and try to reschedule. Pt stated she has been using her Medicaid for transportation more and that has been working. She voiced she feels that is the main reason her kids were taken away from her. She also stated that she feels CPS voiced that her mental health was an issue as well. She voiced she feels everyone has some kind of mental health. She spoke about her Depression. She stated she did not want to take anything while she was . She does go to counseling, via [employer], through [facility] in [place]. She is looking to switch to [facility] counseling. She plans on getting on something for Depression and will follow up with Counselor. She had an apt last week. She does not know why else her kids were taken. All the children have the same father, but he is in senior living, she is unsure of how long. She voiced she does have friends for support. She does have car sear, and a pack and play in her room for baby if she gets to take baby home. At this time pt is not breast feeding. Pt does live by herself. At this time pt has no further questions. DOV advised CPS is looking to come tomorrow. SW let her know that SW will be in room when CPS is here.
[2024-11-03] MEDS: ENOXAPARIN SODIUM 40 MG/0.4 ML SYRINGE SUBQ (21:27)
[2024-11-03] MEDS: KETOROLAC TROMETHAMINE 30 MG/ML VIAL IVP (22:40)
[2024-11-04 00:55] VITALS: BP 94/58; TEMP 37.2
[2024-11-04 06:24] LABS: Hematocrit 27.3 % (36.0-48.0); Hemoglobin 8.8 g/dL (12.0-16.0); Immature Granulocytes Abs Auto 0.13 10^3/uL (0.00-0.03); Immature Granulocytes Pct Auto 0.7 % (0.0-0.5); Lymphocytes Absolute Auto 3.2 10^3/uL (1.2-3.8); Mean Corpuscular HGB Conc 32.2 g/dL (29.9-35.2); Mean Corpuscular Hemoglobin 25.9 pg (26.7-34.0); Mean Corpuscular Volume 80.3 fL (81.0-99.0); Platelet Count 239 10^3/uL (150-450); Red Blood Count 3.40 10^6/uL (4.20-5.40); White Blood Count 17.8 10^3/uL (4.0-11.0)
[2024-11-04 06:32] VITALS: BP 92/73
[2024-11-04] MEDS: OXYCODONE HCL/ACETAMINOPHEN 5MG/325MG 1 TAB PO (06:40)
--- NOTE | 2024-11-04 07:33 | P.OBPN_ITS ---
OB - PN: Subj Subjective Patient comments: no complaints and pain well controlled [place] status: doing well Exam Constitutional Vital Signs, click to edit/add: Last Vital Signs Temp 98.9 F 11/04/24 00:55 Pulse 85 11/03/24 11:11 Resp 16 11/03/24 16:20 BP 94/58 11/04/24 00:55 Pulse Ox 97 11/03/24 10:00 O2 Del Method Room Air 11/04/24 00:55 Documenting provider has reviewed patient's vital signs: yes Common normals: no apparent distress Respiratory Common normals: normal respiratory effort and clear to auscultation bilaterally Cardio Common normals: regular rate and regular rhythm GI Common normals: Normal to inspection, nondistended, normoactive bowel sounds present Extremity Common normals: no clubbing, cyanosis or edema and no calf tenderness Results Labs Labs: Short CBC 11/04/24 Range/Units 06:02 WBC 17.8 H (4.0-11.0) 10^3/uL Hgb 8.8 L (12.0-16.0) g/dL Hct 27.3 L (36.0-48.0) % Plt Count 239 (150-450) 10^3/uL Urinary Catheter Management Urinary Catheter Management Urethral: Cath placed during this visit: no OB - PN: A/P Plan - day: 1 Plan: routine postop care Time Spent with Patient Time: Total time spent is greater than 50% in coordination of care (as documented) at patient's floor/unit and/or counseling patient: Total time spent with greater than 50% in coordination of care (as documented) at patient's floor/unit and/or counseling patient: less than 15 minutes
[2024-11-04 07:57] VITALS: BP 101/61; TEMP 36.8
--- NOTE | 2024-11-04 08:51 | SWNOTE1 ---
SW received call from Kristin at CPS and she does have the approved court order and they are taking baby in to custody. She stated she will be coming in today to speak with pt and would like SW to be present. DOV updated nurse in [facility].
--- NOTE | 2024-11-04 11:19 | SWNOTE1 ---
Kristin from CPS arrived to meet with pt. DOV, director of FB, and pt's nurse all spoke with Kristin prior to going in room. CPS is taking custody of baby. She does have the court order. It does not have the name of roller mechanic on it. When court order was made they were not sure baby was going to be going to them. Plan is for baby to be released to CPS and they will place baby with foster care. We did request that CPS have formal documentation stating who baby will be released to. Nurse placed court order in chart along with copy of release of medical records that pt signed. CPS will also need to bring badge so we can place copy in chart. DOV and Kristin (CPS rehabilitation case coordinator) went in to room to speak with pt. Kristin informed pt that CPS is taking custody and that baby will be placed in foster care. Pt did voice frustration and did request that CPS leave before she becomes more frustrated. Pt did request to be dc prior to baby being discharged tomorrow. DOV let pt know that SW will speak with doctor. DOV adn Kristin updated the nurse. Doctor is aware of request as well. Plan is for baby to discharge to CPS tomorrow. Kristin will be here for discharge of baby and take custody.
[2024-11-04] MEDS: ACETAMINOPHEN 500 MG TABLET PO (14:04)
[2024-11-04] MEDS: DOCUSATE SODIUM 100 MG CAPSULE PO ×2 (14:05→21:18)
[2024-11-04 17:15] VITALS: O2SAT 97
[2024-11-04 17:17] VITALS: BP 117/49; TEMP 36.2
[2024-11-04] MEDS: KETOROLAC TROMETHAMINE 30 MG/ML VIAL IVP (17:21)
[2024-11-04] MEDS: SIMETHICONE 80 MG TAB.CHEW PO (21:17)
[2024-11-04] MEDS: ENOXAPARIN SODIUM 40 MG/0.4 ML SYRINGE SUBQ (21:18)
[2024-11-04] MEDS: ACETAMINOPHEN 500 MG TABLET 1000 MG PO (21:29)
[2024-11-04] MEDS: ESCITALOPRAM 10 MG TABLET PO (21:30)
[2024-11-04 23:38] VITALS: BP 94/57; PULSE 71
[2024-11-05] MEDS: IBUPROFEN 400 MG TABLET 800 MG PO (04:11)
[2024-11-05] MEDS: ACETAMINOPHEN 500 MG TABLET 1000 MG PO (04:11)
[2024-11-05] MEDS: DOCUSATE SODIUM 100 MG CAPSULE PO (08:05)
[2024-11-05] MEDS: SENNOSIDES 8.6 MG TABLET 17.2 MG PO (08:05)
[2024-11-05] MEDS: SIMETHICONE 80 MG TAB.CHEW PO (08:05)
[2024-11-05 08:15] VITALS: BP 126/83; PULSE 64; TEMP 37.2
--- NOTE | 2024-11-05 08:32 | PM.OBPN ---
Exam Constitutional Vital Signs, click to edit/add: Last Vital Signs Temp 97.1 F L 11/04/24 17:17 Pulse 71 11/04/24 23:38 Resp 15 11/04/24 23:38 BP 94/57 11/04/24 23:38 Pulse Ox 97 11/04/24 17:15 O2 Del Method Room Air 11/04/24 23:40 Urinary Catheter Management Urinary Catheter Management Urethral: Cath placed during this visit: no OB - PN: A/P Time Spent with Patient Time: Total time spent is greater than 50% in coordination of care (as documented) at patient's floor/unit and/or counseling patient: Total time spent with greater than 50% in coordination of care (as documented) at patient's floor/unit and/or counseling patient: less than 15 minutes
--- NOTE | 2024-11-05 09:15 | SWNOTE1 ---
DOV spoke to Maddison, Director of FB, and Kristin from CPS called and she is coming around 10:00am to take custody of baby. Kristin voiced that she has a very busy day and this is what time will work. Doctor is on his way in to complete baby discharge. Pt will NOT be discharged prior to baby being discharged. Security will be present.
--- NOTE | 2024-11-05 09:17 | SWNOTE1 ---
[facility] CPS ([employer]) did fax over paperwork stating who baby is being released to. This paperwork was placed in chart.
--- NOTE | 2024-11-05 09:50 | P.OBPN_ITS ---
OB - PN: Subj Subjective Patient comments: incisional pain and other (emotional issues with baby going to foster care) infant status: doing well [place] feeding status: exclusively bottle feeding Exam Constitutional Vital Signs, click to edit/add: Last Vital Signs Temp 98.9 F 11/05/24 08:15 Pulse 64 11/05/24 08:15 Resp 16 11/05/24 08:15 BP 126/83 11/05/24 08:15 Pulse Ox 97 11/04/24 17:15 O2 Del Method Room Air 11/04/24 23:40 Documenting provider has reviewed patient's vital signs: yes Common normals: no apparent distress General appearance: cooperative Chest Common normals: inspection of breasts normal and palpation of breasts normal Bimanual exam- vagina & uterus: uterus non-tender (firm and below umbilicus, incision clean and dry) Extremity Common normals: no calf tenderness and no pedal edema Psych Common normals: cooperative (sad due to disposition of baby) Appearance: grossly normal Attitude: withdrawn Speech: normal speech Mood and affect: depressed mood Attention/concentration: attention grossly intact Urinary Catheter Management Urinary Catheter Management Urethral: Cath placed during this visit: removed postop Urethral indwelling: No OB - PN: A/P Assessment and Plan (1) delivery delivered: (2) Previous section: Plan pt stable for d/c home after routine postop course Plan - day: 2 Plan: routine postop care, discharge home and follow up 6 weeks (1w recheck) Time Spent with Patient Time: Total time spent is greater than 50% in coordination of care (as documented) at patient's floor/unit and/or counseling patient: Total time spent with greater than 50% in coordination of care (as documented) at patient's floor/unit and/or counseling patient: less than 15 minutes
--- NOTE | 2024-11-05 09:57 | PM.OBDS ---
DS: Providers Provider Date of admission: 11/03/24 05:27 Primary care physician: Non-Staff Physician, Admitting clinician: Osmany Bella Attending physician on admission: Osmany Bella Consults: 11/03/24 Consult to [employer] Miner Routine Reason for consult:: Other Other reason:: CPS letter requesting to be notified of of baby Attending physician on discharge: CELY SALGADO Discharging clinician: CELY SALGADO Anticipated date of discharge: 11/05/24 DS: Diagnosis Discharge Diagnosis (1) delivery delivered: Assessment and plan: routine postop care and ready for d/c home (2) Previous section: Assessment and plan: good postop course Plan home OB - DS: Summary Peripartum Data - Procedures: Procedures Operation Date: 11/03/24 07:30 Actual Procedure Side Surgeon p Repeat Not Applicable Osmany Bella DO Peripartum Data - Vaginal Delivery Procedures: Procedures Operation Date: 11/03/24 07:30 Actual Procedure Side Surgeon p Repeat Not Applicable Osmany Bella DO Complications complications: none Infant Delivery method: section Gender: female Discharge plan: home (baby to foster care) Status at Discharge Cognitive/behavioral status at discharge: depressed Overall status at discharge: patient is progressing back to baseline Time Spent with Patient Time attestation: Total time spent providing and/or coordinating discharge services: Time spent: less than 30 minutes Exam Constitutional Vital Signs, click to edit/add: Last Vital Signs Temp 98.9 F 11/05/24 08:15 Pulse 64 11/05/24 08:15 Resp 16 11/05/24 08:15 BP 126/83 11/05/24 08:15 Pulse Ox 97 11/04/24 17:15 O2 Del Method Room Air 11/04/24 23:40 Discharge Plan Discharge Disposition: Home, Self-Care Discharge Medications: New oxycodone-acetaminophen [Percocet] 5-325 mg tablet 1 tab PO Q6H PRN (Reason: pain) 4 Days Qty: 16 0RF Continued hydrocodone-acetaminophen 5-325 mg tablet 1 tab PO Q4H PRN (Reason: pain) 4 Days Qty: 16 0RF ibuprofen 800 mg tablet 800 mg PO Q8H PRN (Reason: pain) 14 Days Qty: 40 0RF Discontinued cephalexin 500 mg capsule 500 mg PO TID 7 Days Qty: 21 0RF hydrocodone-acetaminophen 5-325 mg tablet 1 tab PO Q4H PRN (Reason: pain) 4 Days Qty: 16 0RF cephalexin 500 mg capsule 500 mg PO TID 7 Days Qty: 21 0RF lansoprazole [Prevacid] 30 mg capsule,delayed release(DR/EC) 30 mg PO DAILY oxycodone-acetaminophen [Percocet] 5-325 mg tablet 1 tab PO Q6H PRN (Reason: pain) 7 Days Qty: 28 0RF Print Language: Cymraes Forms: Delivery - Discharge, Portal Instructions
== END 2024-11-05 10:30 | disposition home or self-care (01) | DRG 540 ==
PROVIDERS: Admitting Provider Obstetrics & Gynecology; Visit Provider Obstetrics & Gynecology
PROC: 10D00Z1 Extraction of Products of Conception, Low, Open Approach (ICD-10-PCS; CPT 59514; principal; 2024-11-03 07:30)
DX: O34.211 Maternal care for low transverse scar from previous cesarean delivery (principal); O99.344 Other mental disorders complicating childbirth; F41.9 Anxiety disorder, unspecified; F32.A Depression, unspecified; Z37.0 Single live birth; Z3A.37 37 weeks gestation of pregnancy; O99.284 Endocrine, nutritional and metabolic diseases complicating childbirth; E07.9 Disorder of thyroid, unspecified; Z87.59 Personal history of other complications of pregnancy, childbirth and the puerperium
CPT/HCPCS: 36415; 80307; 81001; 85025; 86850; 86900; 86901; 87086; 94667; 94668; J0690; J1100; J1650; J1885; J2274; J2371; J2405; J2590; J2765; J3490